=== PATIENT | female | born 1960 | race Caucasian/White ===

== ENCOUNTER → 2020-08-30 10:11 | Outpatient (BNVA) | payer OTHER, MEDICAID, SELFPAY | PROVIDERS: PCP Internal Medicine; Referring Provider Internal Medicine; Visit Provider Dietitian, Registered | DX: E11.42 Type 2 diabetes mellitus with diabetic polyneuropathy (principal); Z79.84 Long term (current) use of oral hypoglycemic drugs; Z71.3 Dietary counseling and surveillance | CPT/HCPCS: 97803 ==

== ENCOUNTER 2020-09-04 16:48 | Outpatient (REF) | payer OTHER, MEDICAID, SELFPAY | END 2020-09-04 16:49 | disposition home or self-care (01) | LOC: HO.LAB 16:48 | PROVIDERS: PCP Internal Medicine; Visit Provider Internal Medicine | DX: Z20.828 Contact with and (suspected) exposure to other viral communicable diseases (principal) | CPT/HCPCS: 87635 ==

== ENCOUNTER 2020-09-10 09:54 | Outpatient (REF) | payer OTHER, MEDICAID, SELFPAY | END 2020-09-10 09:55 | disposition home or self-care (01) | LOC: HO.LAB 09:54 | PROVIDERS: PCP Internal Medicine; Visit Provider Internal Medicine | DX: Z20.828 Contact with and (suspected) exposure to other viral communicable diseases (principal) | CPT/HCPCS: 87635 ==

== ENCOUNTER → 2020-10-10 14:46 | Outpatient (BNVA) | payer OTHER, MEDICAID, SELFPAY | PROVIDERS: PCP Internal Medicine; Referring Provider Internal Medicine; Visit Provider Internal Medicine Gastroenterology | DX: Z76.89 Persons encountering health services in other specified circumstances (principal) ==

== ENCOUNTER → 2020-10-23 08:21 | Outpatient (BNVA) | payer OTHER, MEDICAID, SELFPAY | PROVIDERS: PCP Internal Medicine; Referring Provider Internal Medicine; Visit Provider Internal Medicine Endocrinology, Diabetes & Metabolism | DX: C73 Malignant neoplasm of thyroid gland (principal); E89.0 Postprocedural hypothyroidism; E78.5 Hyperlipidemia, unspecified; E11.42 Type 2 diabetes mellitus with diabetic polyneuropathy; I10 Essential (primary) hypertension; E55.9 Vitamin D deficiency, unspecified | CPT/HCPCS: 82947 ==

== ENCOUNTER 2020-10-23 09:22 | Outpatient (REF) | payer OTHER, MEDICAID, SELFPAY ==
[2020-10-23 11:11] LABS: Alanine Aminotransferase 12 U/L (0-31); Albumin Level 4.9 g/dL (3.5-5.0); Alkaline Phosphatase 67 U/L (39-117); Anion Gap 15 (12-20); Aspartate Amino Transferase 14 U/L (5-31); Bilirubin Total 0.5 mg/dL (0.0-1.0); Blood Urea Nitrogen 27 mg/dL (9-16); Calcium 9.6 mg/dL (8.4-10.2); Carbon Dioxide 29 mmol/L (22-29); Chloride 101 mmol/L (96-108); Estimated Glomerular Filt Rate > 60; Glucose Fasting 142 mg/dL (60-99); Potassium 4.3 mmol/l (3.3-5.1); Sodium 141 mmol/L (135-145); Total Protein 7.9 g/dL (6.5-8.0)
[2020-10-23 11:37] LABS: Free T4 (Free Thyroxine) 1.59 ng/dL (0.71-1.85); Thyroid Stimulating Hormone 0.05 uIU/mL (0.32-4.0)
[2020-10-27 06:37] LABS: Thyroglobulin Antibody <1 IU/mL (<=1); Thyroglobulin Level 0.1 ng/mL
== END 2020-10-23 09:23 | disposition home or self-care (01) ==
LOC: HO.10HDL 09:22
PROVIDERS: Visit Provider Internal Medicine Endocrinology, Diabetes & Metabolism
DX: C73 Malignant neoplasm of thyroid gland (principal)
CPT/HCPCS: 36415; 80053; 84432; 84439; 84443; 86800

== ENCOUNTER 2020-11-02 13:24 | Outpatient (REF) | payer OTHER, MEDICAID, SELFPAY ==
--- NOTE | 2020-11-02 13:46 | MM_ITS ---
EXAMINATION: BONE DENSITOMETRY CLINICAL INDICATION: Age-related osteoporosis without current pathological fracture. COMPARISON: Baseline BD dated 12/11/2017. TECHNIQUE: Using a [employer] DXA System (software version: 13.1) manufactured by [employer], dual-energy x-ray absorptiometry was performed of the lumbar spine and left hip. The images are of good technical quality. Summary results are attached. FINDINGS: AP SPINE L1-L4: Current: BMD 1.163 g/cm2, Z-score 1.3, T-score -0.1, normal, 1.3% decrease from baseline (<5% change is not significant). Baseline: BMD 1.178 g/cm2. LEFT FEMUR, NECK: Current: BMD 1.115 g/cm2, Z-score 1.9, T-score 0.6, normal. Baseline: BMD 1.151 g/cm2. LEFT FEMUR, TOTAL: Current: BMD 1.148 g/cm2, Z-score 2.2, T-score 1.1, normal, 0.9% decrease from baseline (<5% change is not significant). Baseline: BMD 1.159 g/cm2. IDENTIFIED RISK FACTORS: Height loss, low calcium intake. Early menopause, secondary osteoporosis, hysterectomy, left oophorectomy. HISTORY OF FRACTURE: None listed. MEDICATIONS: Calcium supplements or multivitamin, vitamin D. MM/XR DEXA axial skeleton IMPRESSION: 1. DIAGNOSIS: Normal bone density based on the lowest T-score value of -0.1 in the lumbar spine applying World Health Organization criteria. 2. 10-YEAR FRACTURE RISK PREDICTION, FRAX: Major osteoporotic fracture (clinical spine, forearm, hip or shoulder) 3.1%. Hip fracture 0.1%. 3. Treatment Recommendations: NOF guidelines recommend consideration for treatment in postmenopausal women and men age 50 and older presenting with the following: -A hip or vertebral (clinical or morphometric) fracture. -T-score less than or equal to -2.5 at the femoral neck or spine after appropriate evaluation to exclude secondary causes. -Low bone mass at the hip or spine and a 10-year fracture probability by FRAX of greater than or equal to 3% for hip fracture or greater than or equal to 20% for major osteoporotic fracture based on the [place] adapted WHO algorithm. 4. Other Recommendations: All treatment decisions require clinical judgment and consideration of individual patient factors, including patient preferences, comorbidities, previous drug use, risk factors not captured in the FRAX model (e.g. frailty, falls, vitamin D deficiency, increased bone turnover, interval significant decline in bone density) and possible under or overestimation of fracture risk by FRAX. FUTURE SCAN RECOMMENDATION: People with diagnosed cases of osteoporosis or at high risk for fracture should have regular bone mineral density tests. For patients eligible for Medicare, routine testing is allowed once every 2 years. The testing frequency can be increased to one year for patients who have rapidly progressing disease, those who are receiving or discontinuing medical therapy to restore bone mass, or have additional risk factors.
== END 2020-11-02 13:25 | disposition home or self-care (01) ==
LOC: HO.MAMMO 13:24
PROVIDERS: PCP Internal Medicine; Visit Provider Advanced Practice Midwife
DX: Z13.820 Encounter for screening for osteoporosis (principal); Z85.850 Personal history of malignant neoplasm of thyroid
CPT/HCPCS: 77080

== ENCOUNTER 2020-11-08 12:37 | Outpatient (REF) | payer OTHER, MEDICAID, SELFPAY ==
--- NOTE | 2020-11-08 12:49 | US_ITS ---
EXAMINATION: ULTRASOUND SOFT TISSUE HEAD AND NECK CLINICAL INFORMATION: Malignant neoplasm of thyroid gland. Follow up lymph nodes. COMPARISON: Ultrasound neck 07/17/2020. TECHNIQUE: Ultrasound imaging of neck lymph nodes was performed. FINDINGS: There are several bilateral lymph nodes seen. Right Neck: 1. Level Ib lymph node measuring 1.7 x 0.4 x 1.2 cm. It has a slit-like hilum and appears abnormal. Previously it measured 1.7 x 0.5 x 1.9 cm. 2. The previously seen 0.6 x 0.4 x 0.5 cm level 1B lymph node is not visualized at this time. Left Neck: 1. Level Ib lymph node measures 2.6 x 0.6 x 1.0 cm. It is abnormal and has a slit-like hilum. Previously it measured 2.6 x 0.6 x 1.2 cm. 2. Level 2 lymph node measures 1.9 x 0.5 x 1.4 cm. It is abnormal and has an absent hilum and has cystic features. Previously it measured 2.1 x 0.4 x 1.4 cm. 3. The previously seen 0.7 x 0.6 x 1.0 cm level 2 lymph node is not visualized at this time. US/US soft tiss head and/or neck IMPRESSION: At least 1 solitary abnormal lymph node in the right neck and 2 abnormal-appearing lymph nodes in the left neck essentially unchanged in size.
== END 2020-11-08 12:38 | disposition home or self-care (01) ==
LOC: HO.US 12:37
PROVIDERS: Visit Provider Internal Medicine Endocrinology, Diabetes & Metabolism
DX: C73 Malignant neoplasm of thyroid gland (principal)
CPT/HCPCS: 76536

== ENCOUNTER 2020-12-07 10:44 | Outpatient (REF) | payer OTHER, MEDICAID, SELFPAY ==
--- NOTE | 2020-12-07 11:07 | XR_ITS ---
EXAMINATION: XR FINGER, LEFT CLINICAL INFORMATION: Cellulitis of the thumb COMPARISON: None TECHNIQUE: Three views of the left thumb. FINDINGS: The bones and soft tissues are normal. No fracture. Alignment is anatomic. Joint spaces are maintained. XR/XR finger LT min 2V IMPRESSION: Normal left thumb
[2020-12-07 12:51] LABS: Free T4 (Free Thyroxine) 1.38 ng/dL (0.71-1.85); Thyroid Stimulating Hormone 0.18 uIU/mL (0.32-4.0)
[2020-12-10 05:27] LABS: Thyroglobulin Antibody <1 IU/mL (<=1); Thyroglobulin Level <0.1 ng/mL
== END 2020-12-07 10:45 | disposition home or self-care (01) ==
LOC: HO.LAB 10:44
PROVIDERS: Absent Provider Internal Medicine Endocrinology, Diabetes & Metabolism; PCP Internal Medicine; Referring Provider Internal Medicine; Visit Provider Emergency Medicine
DX: C73 Malignant neoplasm of thyroid gland (principal); L03.012 Cellulitis of left finger
CPT/HCPCS: 36415; 73140; 84432; 84439; 84443; 86800

== ENCOUNTER 2020-12-14 08:49 | Outpatient (REF) | payer OTHER, MEDICAID, SELFPAY ==
--- NOTE | 2020-12-14 09:36 | XR_ITS ---
EXAMINATION: XR HAND, LEFT CLINICAL INFORMATION: Pain COMPARISON: None TECHNIQUE: PA, lateral, and oblique views of the left hand. FINDINGS: The bones and soft tissues are normal. No fracture. Alignment is anatomic. Joint spaces are maintained. No erosions or soft tissue calcifications. XR/XR hand LT min 3V IMPRESSION: Normal left hand.
== END 2020-12-14 08:50 | disposition home or self-care (01) ==
LOC: HO.XRAY 08:49
PROVIDERS: PCP Internal Medicine; Visit Provider Physician Assistant
DX: L03.012 Cellulitis of left finger (principal)
CPT/HCPCS: 73130

== ENCOUNTER 2020-12-19 13:33 | Outpatient (REF) | payer OTHER, MEDICAID, SELFPAY ==
--- NOTE | 2020-12-19 13:40 | MM_ITS ---
EXAMINATION: MM DIAGNOSTIC DIGITAL BREAST TOMOSYNTHESIS, bilateral. TARGETED LEFT BREAST ULTRASOUND CLINICAL INFORMATION: Left breast pain. The lifetime risk of breast cancer based on the Tyrer-Cuzick Model is 2.6%. COMPARISON: Mammography: 08/17/2019 and studies dating back to 03/27/2016. TECHNIQUE: Digital breast tomosynthesis is performed in both the craniocaudal and mediolateral oblique views along with computer-aided detection (CAD). Synthesized 2D images are generated from the tomosynthesis. Targeted left breast ultrasound. FINDINGS: There are scattered areas of fibroglandular density (ACR BI-RADS breast composition Category b). There are no significant masses, abnormal calcifications, or other abnormalities. Targeted left breast ultrasound did not demonstrate any abnormal cystic or solid mass. No region of abnormal distal sound shadowing. No edematous change within the parenchyma. Results are provided to the patient at time of visit by the technologist. MM/MM tomosynthesis diagnostic BI IMPRESSION: No new abnormal mammographic or ultrasound finding appreciated. There are no significant changes from prior study. ASSESSMENT: BI-RADS 1: Negative. RECOMMENDATION: Routine annual mammography screening due in 12 months. This patient's information was entered into a reminder system with a target due date for their next mammogram.
--- NOTE | 2020-12-19 13:42 | US_ITS ---
EXAMINATION: US DIAGNOSTIC ULTRASOUND BREAST, LEFT CLINICAL INFORMATION: Left breast pain. COMPARISON: Mammography of same day and studies dating back to 03/27/2016. TECHNIQUE: Ultrasound of the breast is performed with real-time murrell-scale imaging and color Doppler. FINDINGS: Targeted left breast ultrasound did not demonstrate any abnormal cystic or solid mass. No region of abnormal distal sound shadowing. No edematous change within the parenchyma. Results are provided to the patient at time of visit by the technologist. US/US breast LT limited IMPRESSION: No new abnormal mammographic or ultrasound finding appreciated. There are no significant changes from prior study. ASSESSMENT: BI-RADS 1: Negative. RECOMMENDATION: Routine annual mammography screening due in 12 months.
== END 2020-12-19 13:34 | disposition home or self-care (01) ==
LOC: HO.MAMMO 13:33
PROVIDERS: PCP Internal Medicine; Visit Provider Emergency Medicine
DX: N64.4 Mastodynia (principal)
CPT/HCPCS: 76642; 77062; 77066

== ENCOUNTER → 2020-12-21 09:40 | Outpatient (BNVA) | payer OTHER, MEDICAID, SELFPAY | PROVIDERS: PCP Internal Medicine; Visit Provider Physician Assistant ==

== ENCOUNTER 2021-01-14 10:31 | Emergency (ER) | payer OTHER, MEDICAID, SELFPAY ==
--- NOTE | ~2021-01-14 | XR_ITS ---
EXAMINATION: XR CHEST CLINICAL INFORMATION: Chest pain. COMPARISON: None TECHNIQUE: 2 views of the chest were obtained. FINDINGS: No significant abnormality is noted involving the heart, lungs, mediastinum, bony thorax or soft tissues. XR/XR chest 2V IMPRESSION: Unremarkable chest exam.
--- NOTE | ~2021-01-14 | CT_ITS ---
EXAMINATION: CT ABDOMEN AND PELVIS WITHOUT CONTRAST CLINICAL INFORMATION: Right flank pain. Dysuria. Evaluate for pyelonephritis. COMPARISON: Previous CT of the abdomen and pelvis June 2020 TECHNIQUE: Multidetector volumetric imaging was performed from the superior aspect of the liver through the pubic symphysis. Sagittal and coronal reformatted images were obtained on the technologist's workstation. This CT examination was performed using dose optimization techniques as appropriate, variously including the following: *Automated exposure control *Adjustment of mA and/or kV according to patient size (this includes techniques or standardized protocols for targeted exams where dose is matched to indication/reason for exam; i.e. extremities or head) *Use of iterative reconstruction technique DLP: 455 mGy-cm FINDINGS: LUNG BASES: The visualized lung bases are unremarkable. LIVER, GALLBLADDER, AND BILIARY TREE: The liver is normal in size, shape, and attenuation. No focal hepatic lesion or biliary ductal dilatation is present. The gallbladder is unremarkable with no evidence of radiopaque gallstones, gallbladder wall thickening, or obvious pericholecystic inflammatory changes. PANCREAS: Unremarkable. SPLEEN: Unremarkable. ADRENAL GLANDS: Unremarkable. KIDNEYS AND URETERS: There is a duplicated right renal collecting system. The kidneys are otherwise normal. No stone or hydronephrosis is seen. No ureteral dilatation or ureteral stone is seen. Pyelonephritis is difficult to evaluate without IV contrast. No cortical thickening, focal lesion or perinephric stranding or fluid is seen. BLADDER: Unremarkable. GASTROINTESTINAL TRACT: There is mild diverticulosis of the colon. The small and large bowel are otherwise unremarkable. The appendix is unremarkable. ABDOMINAL WALL: As evidence of previous low ventral hernia repair with mesh. LYMPH NODES: There is shotty small bowel mesentery lymphadenopathy in the right lower quadrant. No enlarged lymph nodes are seen. There is no ascites. VASCULAR: Unremarkable. PELVIC VISCERA: The whole the uterus appears to have been removed. No pelvic mass is seen. OSSEOUS STRUCTURES: Unremarkable. CT/CT abdomen pelvis wo con IMPRESSION: Duplicated right renal collecting system. Mild diverticulosis of the colon.
--- NOTE | 2021-01-14 11:03 | ECG_ITS ---
Test Reason : CP Blood Pressure : / mmHG Vent. Rate : 076 BPM Atrial Rate : 076 BPM P-R Int : 166 ms QRS Dur : 074 ms QT Int : 388 ms P-R-T Axes : 051 005 061 degrees QTc Int : 436 ms Normal sinus rhythm Possible Left atrial enlargement Possible Inferior infarct , age undetermined - could be normal variant Borderline ECG When compared with ECG of 15-JUL-2020 15:14, No significant change was found Referred By: Generic ED Physician Electronically Signed By:PABLO BURGOS
[2021-01-14 11:24] VITALS: BP 136/78; PULSE 97; RESP 18; TEMP 37.2; O2SAT 96; BMI 23.9
--- NOTE | 2021-01-14 11:37 | ED_ITS ---
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 The patient does she was seen at Urgent Care on January 11 was prescribed Carafate, Pepcid and Colace. The patient tells me she has been taking these with continued pain. She is currently also on clindamycin for paronychia. She reports nausea with no vomiting. No diarrhea or constipation. She is complaining of some dysuria and frequency with some chills. No fever. Pain radiates to right back and right upper abdomen. MD complaint: chest heaviness Related Data Home Medications Medication Instructions Recorded Confirmed metformin 500 mg tablet,extended 500 mg PO BID 08/30/20 10/10/20 release 24 hr omega-3 fatty acids-fish oil 340 1 cap PO BEDTIME 08/30/20 10/10/20 mg-1,000 mg capsule hydrochlorothiazide 12.5 mg capsule 12.5 mg PO DAILY 10/10/20 10/10/20 losartan 50 mg tablet 50 mg PO BID 10/10/20 10/10/20 metoprolol succinate 50 mg 50 mg PO DAILY 10/10/20 10/10/20 tablet,extended release 24 hr polyethylene glycol 3350 17 17 g PO DAILY PRN 10/10/20 10/10/20 gram/dose oral powder topiramate 25 mg sprinkle capsule 25 mg PO DAILY 10/10/20 10/10/20 Previous Rx's Medication Instructions Recorded cholecalciferol (vitamin D3) 50 50 mcg PO DAILY 30 Days #30 cap 08/23/20 mcg (2,000 unit) capsule atorvastatin 40 mg tablet 40 mg PO BEDTIME #90 tab 10/15/20 levothyroxine 112 mcg tablet 112 mcg PO DAILY 90 Days #90 tab 12/07/20 thyrotropin maria c 0.9 mg IM DAILY #2 ml 12/12/20 clindamycin HCl 300 mg capsule 300 mg PO QID 10 Days #40 cap 12/24/20 omeprazole 40 mg PO DAILY #14 cap 01/14/21 Allergies Allergy/AdvReac Type Severity Reaction Status Date / Time Penicillins [PENICILLINS] Allergy Unknown HIVES Verified 12/21/20 09:43 Review of Systems Review of Systems: Yes all other systems are reviewed and are negative Constitutional: Constitutional: Reports no additional constitutional complaints, Denies body ache(s), Reports chills, Denies fever(s), Denies headache(s) and Denies weakness Eyes: Eyes: Reports no additional eye complaints and Denies change in vision ENT: Reports system reviewed and no additional complaints, except as documented, Denies dizziness, Denies headache(s), Denies nasal congestion, Denies nasal discharge and Denies neck pain Cardiovascular: Cardiovascular: Reports no additional cardiovascular complaints, Denies chest pain, Denies leg edema and Denies dyspnea Respiratory: Respiratory: Reports no additional respiratory complaints, Denies cough and Denies dyspnea Gastrointestinal: Gastrointestinal: Reports no additional gastrointestinal complaints, Reports abdominal pain, Denies diarrhea, Reports nausea and Denies vomiting Genitourinary: Genitourinary: Reports no additional female genitourinary complaints, Reports dysuria and Denies urinary incontinence Comments: urinary frequency Musculoskeletal: Musculoskeletal: Reports no additional musculoskeletal complaints, Denies back pain, Denies arthralgias, Denies joint swelling, Denies neck pain, Denies numbness and Denies tingling Integumentary/Breasts: Skin/Breast: Reports system reviewed and no additional complaints, except as docu and Denies rash Neurologic: Denies Abnormal speech present, Denies dizziness, Denies headache(s), Denies numbness, Denies tingling and Denies weakness PMF Past Medical History Attestation statement: The following information was validated with the patient. Source: old records reviewed and nursing notes reviewed Medical History Dyslipidemia Gastritis Hypertension Post-surgical hypothyroidism Primary thyroid cancer Tubular adenoma of colon Vitamin D deficiency Surgical History History of esophagogastroduodenoscopy (EGD) Hx of section Hx of colonoscopy Hx of hernia repair Hx of hysterectomy Hx of thyroidectomy Family History Family History Father Stroke Heart attack Mother Diabetes mellitus Family/Other Family history of cancer Social History Social History Alcohol intake: current Alcohol intake frequency: does not drink Smoking Status: Never smoker Smoked in Last 30 Days: No Use of substances other than those prescribed or required for medical reasons: No Advance Directives: No Advance Directives Information Provided: No Physical Exam Vital Signs: Vital Signs: Last Vital Signs Temp 99.0 F 01/14/21 11:24 Pulse 78 01/14/21 13:42 Resp 10 L 01/14/21 13:42 BP 109/62 01/14/21 13:42 Pulse Ox 98 01/14/21 13:42 Body Mass Index 23.9 Const: General: cooperative, healthy appearing, comfortable and no acute distress Orientation/consciousness: patient oriented x3 Limitations: no limitations HENMT: Head: Yes normal to inspection Ears: hearing grossly normal bilaterally General nose exam: Normal external nose present Face and sinus: Yes normal facial exam Mouth: Normal oral and palatal mucosa present Throat: Yes posterior oropharynx normal Eyes: General: appearance normal, both eyes and all related structures Pupils: Equal, round and reactive pupils present Neck: Neck: Yes normal visual inspection Chest: Chest palpation & inspection: normal inspection of the chest Resp: Effort & Inspection: normal respiratory effort Auscultation: clear to auscultation bilaterally Cardio: Rate: regular rate Rhythm: regular rhythm Peripheral pulses: Peripheral pulses 2+ throughout GI: Inspection: Yes normal to inspection Palpation (GI): Soft to palpation and Tenderness to palpation present (GI) (Mild epigastric and right upper quadrant ) Auscultation: normal bowel sounds Back/Spine/Pelvis: Thoracic/Lumbar Spine: thoracic and lumbar spine normal to inspection Skin: General skin exam: no rashes or lesions noted Neuro: General: patient oriented x3, no focal motor deficits and normal sensation to monofilament Cranial nerves: Yes Equal, round and reactive pupils present Cognition (Neuro): normal cognition Speech: No Abnormal speech present Gait exam (Neuro): Normal gait present Motor exam (neuro): 5/5 motor strength present throughout Extrem: General: Yes normal to inspection Course Course Course Narrative: 60-year-old female here with complaints of epigastric pain which radiates to the right upper quadrant and right flank x 6 days with associated nausea and chills. Continued symptoms despite taking Pepcid and Carafate. Is on clindamycin for paronychia. Will need labs, UA, EKG, Ct A/P and analgesia. 1330-Labs unremarkable. UA negative. EKG shows no ischemic changes. CT unremarkable. Likely GERD vs gastritis vs PUD from recent antibiotic use. To give GI cocktail, PPI and re-assess. 1440-patient also in her abdominal pain is resolved after receiving a PPI and GI cocktail. She does have a mild headache and feels lightheaded follow explain her this is likely secondary to the narcotics she received. Stable vital signs. Well-appearing. She is taking Carafate 4 times daily but was telling me that she was taking it with meals. We discussed that she should be taking at least 30 minutes prior to meals. She was taking Pepcid we will changes to Prilosec. I did recommend that she call her company accountant for follow-up appointment for possible endoscopy. Reviewed worrisome signs and symptoms and when to return to the emergency department. Comfortable discharge home. MDM - Chest Pain MDM Narrative Medical decision making narrative: ACS, cholecystitis, gallstones, renal colic, pyelonephritis, UTI, gastritis, PUD, GERD Less likely ACS with atypical CP, symptoms >6 days, negative troponin EKG with no ischemic changes. Medical Records Data Attestation: I reviewed the patient's medical records. Lab Data Attestation: I reviewed the patient's lab results. Result diagrams: 01/14/21 12:18 01/14/21 12:18 Labs: Lab Results 01/14/21 01/14/21 01/14/21 Range/Units 12:18 12:18 12:18 WBC 4.0 L (4.8-10.8) X10*3/uL RBC 4.69 (4.20-5.50) X10*6/uL Hgb 12.7 (12.0-16.0) g/dl Hct 38.6 (37-47) % MCV 82.3 (80-98) fL MCH 27.1 (27.0-33.0) pg MCHC 32.9 (31.0-35.0) g/dl RDW 12.5 (11.0-16.0) % Plt Count 204 (160-400) X10*3/uL MPV 10.5 (9.4-12.3) fL Immature Gran % (Auto) 0.3 (0.0-0.4) % Neut % (Auto) 63.8 (45-73) % Lymph % (Auto) 24.7 (20-40) % [place] % (Auto) 10.4 (2-11) % Eos % (Auto) 0.3 (0-4) % Baso % (Auto) 0.5 (0-2) % Lymph # (Auto) 1.0 L (1.2-4.9) X10*3/uL [place] # (Auto) 0.4 (0.1-1.2) X10*3/uL Eos # (Auto) 0.0 (0.0-0.4) X10*3/uL Baso # (Auto) 0.0 (0.0-0.2) X10*3/uL Abs Immat Gran (auto) 0.01 (0.00-0.03) X10*3/uL Absolute Neuts (auto) 2.5 (2.0-8.3) X10*3/uL Absolute Nucleated RBC 0.000 (0.0-0.012) X10*3/uL Nucleated RBC % (auto) 0.0 (0.0-0.2) /100WBC PT 13.2 H (10.8-13.0) SEC INR 1.1 (0.9-1.1) Sodium 142 (135-145) mmol/L Potassium 4.1 (3.3-5.1) mmol/L Chloride 101 (96-108) mmol/L Carbon Dioxide 31 H (22-29) mmol/L Anion Gap 14 (12-20) BUN 16 (9-16) mg/dL Creatinine 0.69 (0.5-1.4) mg/dL Estim Creat Clear Calc 76.0 Estimated GFR > 60 Random Glucose 93 (60-115) mg/dL Calcium 9.1 (8.4-10.2) mg/dL Magnesium 2.0 (1.6-2.6) mg/dL Total Bilirubin 0.6 (0.0-1.0) mg/dL Direct Bilirubin 0.2 (0.0-0.5) mg/dL AST 28 D (5-31) U/L ALT 38 H (0-31) U/L Alkaline Phosphatase 78 (39-117) U/L Troponin I High Sens (<3.5-17.0) ng/L Total Protein 7.9 (6.5-8.0) g/dL Albumin 4.8 (3.5-5.0) g/dL Urine Color Urine Appearance Urine pH (5.0-8.0) Ur Specific [place] (1.005-1.025) Urine Protein (NEG-TRACE) MG/DL Urine Glucose (UA) (NEG) MG/DL Urine Ketones (NEG) MG/DL Urine Blood (NEG) Urine Nitrite (NEG) Ur Leukocyte Esterase (NEG) Urine RBC (0) /HPF Urine WBC (0-4) /HPF Ur Squamous Epith Cells /LPF Urine Bacteria /LPF 01/14/21 01/14/21 Range/Units 12:18 12:18 WBC (4.8-10.8) X10*3/uL RBC (4.20-5.50) X10*6/uL Hgb (12.0-16.0) g/dl Hct (37-47) % MCV (80-98) fL MCH (27.0-33.0) pg MCHC (31.0-35.0) g/dl RDW (11.0-16.0) % Plt Count (160-400) X10*3/uL MPV (9.4-12.3) fL Immature Gran % (Auto) (0.0-0.4) % Neut % (Auto) (45-73) % Lymph % (Auto) (20-40) % [place] % (Auto) (2-11) % Eos % (Auto) (0-4) % Baso % (Auto) (0-2) % Lymph # (Auto) (1.2-4.9) X10*3/uL [place] # (Auto) (0.1-1.2) X10*3/uL Eos # (Auto) (0.0-0.4) X10*3/uL Baso # (Auto) (0.0-0.2) X10*3/uL Abs Immat Gran (auto) (0.00-0.03) X10*3/uL Absolute Neuts (auto) (2.0-8.3) X10*3/uL Absolute Nucleated RBC (0.0-0.012) X10*3/uL Nucleated RBC % (auto) (0.0-0.2) /100WBC PT (10.8-13.0) SEC INR (0.9-1.1) Sodium (135-145) mmol/L Potassium (3.3-5.1) mmol/L Chloride (96-108) mmol/L Carbon Dioxide (22-29) mmol/L Anion Gap (12-20) BUN (9-16) mg/dL Creatinine (0.5-1.4) mg/dL Estim Creat Clear Calc Estimated GFR Random Glucose (60-115) mg/dL Calcium (8.4-10.2) mg/dL Magnesium (1.6-2.6) mg/dL Total Bilirubin (0.0-1.0) mg/dL Direct Bilirubin (0.0-0.5) mg/dL AST (5-31) U/L ALT (0-31) U/L Alkaline Phosphatase (39-117) U/L Troponin I High Sens 3.9 (<3.5-17.0) ng/L Total Protein (6.5-8.0) g/dL Albumin (3.5-5.0) g/dL Urine Color YELLOW Urine Appearance CLEAR Urine pH 7.5 (5.0-8.0) Ur Specific [place] 1.010 (1.005-1.025) Urine Protein NEG (NEG-TRACE) MG/DL Urine Glucose (UA) NEG (NEG) MG/DL Urine Ketones NEG (NEG) MG/DL Urine Blood TRACE (NEG) Urine Nitrite NEG (NEG) Ur Leukocyte Esterase NEG (NEG) Urine RBC 0-2 (0) /HPF Urine WBC 0 (0-4) /HPF Ur Squamous Epith Cells NONE /LPF Urine Bacteria NONE /LPF Imaging Data Chest x-ray: Attestation: I personally reviewed and interpreted this imaging study as follows: Radiologist's impression: EXAMINATION: XR CHEST CLINICAL INFORMATION: Chest pain. COMPARISON: None TECHNIQUE: 2 views of the chest were obtained. FINDINGS: No significant abnormality is noted involving the heart, lungs, mediastinum, bony thorax or soft tissues. XR/XR chest 2V IMPRESSION: Unremarkable chest exam. CT scan - abdomen: Attestation: I personally reviewed and interpreted this imaging study as follows: Radiologist's impression: EXAMINATION: CT ABDOMEN AND PELVIS WITHOUT CONTRAST CLINICAL INFORMATION: Right flank pain. Dysuria. Evaluate for pyelonephritis. COMPARISON: Previous CT of the abdomen and pelvis June 2020 TECHNIQUE: Multidetector volumetric imaging was performed from the superior aspect of the liver through the pubic symphysis. Sagittal and coronal reformatted images were obtained on the technologist's workstation. This CT examination was performed using dose optimization techniques as appropriate, variously including the following: *Automated exposure control *Adjustment of mA and/or kV according to patient size (this includes techniques or standardized protocols for targeted exams where dose is matched to indication/reason for exam; i.e. extremities or head) *Use of iterative reconstruction technique DLP: 455 mGy-cm FINDINGS: LUNG BASES: The visualized lung bases are unremarkable. LIVER, GALLBLADDER, AND BILIARY TREE: The liver is normal in size, shape, and attenuation. No focal hepatic lesion or biliary ductal dilatation is present. The gallbladder is unremarkable with no evidence of radiopaque gallstones, gallbladder wall thickening, or obvious pericholecystic inflammatory changes. PANCREAS: Unremarkable. SPLEEN: Unremarkable. ADRENAL GLANDS: Unremarkable. KIDNEYS AND URETERS: There is a duplicated right renal collecting system. The kidneys are otherwise normal. No stone or hydronephrosis is seen. No ureteral dilatation or ureteral stone is seen. Pyelonephritis is difficult to evaluate without IV contrast. No cortical thickening, focal lesion or perinephric stranding or fluid is seen. BLADDER: Unremarkable. GASTROINTESTINAL TRACT: There is mild diverticulosis of the colon. The small and large bowel are otherwise unremarkable. The appendix is unremarkable. ABDOMINAL WALL: As evidence of previous low ventral hernia repair with mesh. LYMPH NODES: There is shotty small bowel mesentery lymphadenopathy in the right lower quadrant. No enlarged lymph nodes are seen. There is no ascites. VASCULAR: Unremarkable. PELVIC VISCERA: The whole the uterus appears to have been removed. No pelvic mass is seen. OSSEOUS STRUCTURES: Unremarkable. CT/CT abdomen pelvis wo con IMPRESSION: Duplicated right renal collecting system. Mild diverticulosis of the colon. ECG Data ECG #1: Attestation: I personally reviewed and interpreted this ECG as follows: Interpretation: NSR with rate 76, normal pr, normal qrs, normal qt Discharge Plan Discharge Clinical Impression: Gastritis Patient Disposition: Home, Self-Care Instructions: Gastritis (ED) Additional Instructions: Stop pepcid. Start omeprazole Take carafate four times daily before meals. You must take it 30 minutes before eating [place] diet Call Dr Webb for a follow-up appointment Prescriptions: New omeprazole 40 mg capsule,delayed release(DR/EC) 40 mg PO DAILY Qty: 14 RF: 0 No Action cholecalciferol (vitamin D3) 50 mcg (2,000 unit) capsule 50 mcg PO DAILY 30 Days Qty: 30 RF: 5 atorvastatin 40 mg tablet 40 mg PO BEDTIME Qty: 90 RF: 1 levothyroxine 112 mcg tablet 112 mcg PO DAILY 90 Days Qty: 90 RF: 3 Thyrogen 1.1 mg (0.9 mg/ mL final conc.) recon soln 0.9 mg IM DAILY Qty: 2 RF: 0 clindamycin HCl 300 mg capsule 300 mg PO QID 10 Days Qty: 40 RF: 0 metformin 500 mg tablet extended release 24 hr 500 mg PO BID RF: 0 Fish Oil 340-1,000 mg capsule 1 cap PO BEDTIME RF: 0 hydrochlorothiazide 12.5 mg capsule 12.5 mg PO DAILY RF: 0 topiramate 25 mg capsule, sprinkle 25 mg PO DAILY RF: 0 losartan 50 mg tablet 50 mg PO BID RF: 0 metoprolol succinate 50 mg tablet extended release 24 hr 50 mg PO DAILY RF: 0 polyethylene glycol 3350 [Miralax] 17 gram/dose powder 17 g PO DAILY PRN (Reason: laxative effect) RF: 0 Referrals: Diana Webb MD [Physician] - 2 days Interventions: ED Discharge Assessment Last Done: 01/14/21 14:58 Discharge Date/Time: 01/14/21 14:59 Print Language: Serbian
[2021-01-14 12:23] LABS: MANUAL DIFF FLAG NO
[2021-01-14] MEDS: Morphine Sulfate 4 MG/ML CARTRIDGE IVPUSH (12:23)
[2021-01-14] MEDS: ondansetron HCL 4 MG/2 ML VIAL IVPUSH (12:23)
[2021-01-14 12:26] LABS: Basophils Percent Auto 0.5 % (0-2); Eosinophils Percent Auto 0.3 % (0-4); Hematocrit 38.6 % (37-47); Hemoglobin 12.7 g/dl (12.0-16.0); Imm Gran Abs Auto 0.01 X10*3/uL (0.00-0.03); Imm Gran Pct Auto 0.3 % (0.0-0.4); Lymphocytes Percent Auto 24.7 % (20-40); Mean Corpuscular HGB Conc 32.9 g/dl (31.0-35.0); Mean Corpuscular Hemoglobin 27.1 pg (27.0-33.0); Mean Corpuscular Volume 82.3 fL (80-98); Mean Platelet Volume 10.5 fL (9.4-12.3); Monocytes Absolute Auto 0.4 X10*3/uL (0.1-1.2); Monocytes Percent Auto 10.4 % (2-11); Neutrophils Absolute Auto 2.5 X10*3/uL (2.0-8.3); Neutrophils Percent Auto 63.8 % (45-73); Platelet Count 204 X10*3/uL (160-400); Red Blood Count 4.69 X10*6/uL (4.20-5.50); Red Cell Distribution Width 12.5 % (11.0-16.0)
[2021-01-14 12:32] LABS: Glucose Urine UA NEG (NEG); Leukocyte Esterase Urine NEG (NEG); Nitrite Urine NEG (NEG); PH 7.5 (5.0-8.0); Urine Blood TRACE (NEG); Urine Ketones NEG (NEG); Urine Protein NEG (NEG-TRACE)
[2021-01-14 12:34] LABS: Appearance Urine CLEAR; Color Urine YELLOW
[2021-01-14 12:36] LABS: INTERNATIONAL NORM RATIO 1.1 (0.9-1.1); Prothrombin Time 13.2 SEC (10.8-13.0)
[2021-01-14 12:57] LABS: Alanine Aminotransferase 38 U/L (0-31); Albumin Level 4.8 g/dL (3.5-5.0); Alkaline Phosphatase 78 U/L (39-117); Anion Gap 14 (12-20); Aspartate Amino Transferase 28 U/L (5-31); Bilirubin Direct 0.2 mg/dL (0.0-0.5); Bilirubin Total 0.6 mg/dL (0.0-1.0); Blood Urea Nitrogen 16 mg/dL (9-16); Calcium 9.1 mg/dL (8.4-10.2); Carbon Dioxide 31 mmol/L (22-29); Chloride 101 mmol/L (96-108); Estimated Glomerular Filt Rate > 60; Glucose Random 93 mg/dL (60-115); Potassium 4.1 mmol/L (3.3-5.1); Sodium 142 mmol/L (135-145); Total Protein 7.9 g/dL (6.5-8.0)
[2021-01-14 13:00] LABS: Troponin-I High Sensitivity 3.9 ng/L (<3.5-17.0)
[2021-01-14 13:03] LABS: RBC Urine 0-2 /HPF (0); WBC Urine 0 /HPF (0-4)
[2021-01-14] MEDS: Magnesium Hydrox/Alum Hydrox 30 ML ORAL.SUSP PO (13:39)
[2021-01-14] MEDS: Famotidine/PF 20 MG/2 ML VIAL IVPUSH (13:39)
[2021-01-14] MEDS: Lidocaine HCl Viscous 2 % 15 ML SOLUTION MUCOUS MEM (13:39)
[2021-01-14 13:42] VITALS: BP 109/62; PULSE 78; RESP 10; O2SAT 98
== END 2021-01-14 14:59 | disposition home or self-care (01) ==
PROVIDERS: Nurse Practitioner Family; Emergency Provider Emergency Medicine; PCP Internal Medicine
DX: K29.70 Gastritis, unspecified, without bleeding (principal); R07.9 Chest pain, unspecified; I10 Essential (primary) hypertension; E11.9 Type 2 diabetes mellitus without complications; Z79.84 Long term (current) use of oral hypoglycemic drugs; Z79.899 Other long term (current) drug therapy
CPT/HCPCS: 36415; 71046; 74176; 80048; 80076; 81001; 83735; 84484; 85025; 85610; 93005; 96374; 96375; 99284; J2270; J2405

== ENCOUNTER → 2021-01-21 14:36 | Outpatient (BNVA) | payer OTHER, MEDICAID, SELFPAY | PROVIDERS: PCP Internal Medicine; Visit Provider Orthopaedic Surgery ==

== ENCOUNTER → 2021-01-23 07:52 | Outpatient (BNVA) | payer OTHER, MEDICAID, SELFPAY | PROVIDERS: PCP Internal Medicine; Visit Provider Internal Medicine Gastroenterology ==

== ENCOUNTER 2021-01-24 13:47 | Day surgery (SDC) | payer OTHER, MEDICAID, SELFPAY ==
--- NOTE | 2021-01-24 11:58 | P.OP_ITS ---
Operative Note Operative Note Date of Service: 01/24/21 Narrative: Preop diagnosis: 1. Left thumb chronic paronychia Postop diagnosis: 1. Same Procedure: 1. Left thumb chronic paronychia I and D Surgeon: Georgiana Pang MD Anesthesia: Digital block using 1% lidocaine with epinephrine Findings: [ ] EBL: Less than 5 mL Specimens: None Complications: None Disposition: Brought to recovery room in stable condition Plan: Follow-up for 7-10 days for wound check and suture removal and to check cultures Antibiotics times 10 days Indications: The patient is 60 years old, with A left thumb chronic paronychia that has been unresponsive to nonoperative management. The risks and benefits of operative treatment including but not limited to risk of damage to blood vessels, nerves, tendons, infection, persistent pain, persistent symptoms, or possible need for additional surgery were discussed with the patient and the patient wishes to proceed with surgery. Procedure: Once consent was obtained a digital block was performed using a combination of 1% lidocaine with epinephrine. The patient was then brought back to the operating suite and placed on the operative table in supine position. A tourniquet was applied to the proximal aspect of the left upper extremity and the limb was prepped and draped in a standard surgical fashion. Once assured that we had a good block, Once satisfied with our I&D the wound was copiously irrigated with normal sa line and hemostasis was obtained with a brief period of local pressure. The skin edges were reapproximated with some 5.0 nylon suture material and a sterile dressing was applied. The patient appears to have tolerated the procedure well and with no complications. All digits were well vascularized at the conclusion of the case.
[2021-01-24 14:04] VITALS: BP 115/75; PULSE 84; RESP 16; TEMP 36.8; O2SAT 97; BMI 23.9
[2021-01-24 15:28] VITALS: BP 141/69; PULSE 78; O2SAT 100
[2021-01-24] MEDS: Acetaminophen 325 MG TABLET 975 MG PO (15:32)
--- NOTE | 2021-01-24 16:40 | MHC.SHP ---
Pre-Procedural Eval Section B Chief Complaint: cellulitis Allergies: Allergies Allergy/AdvReac Type Severity Reaction Status Date / Time Penicillins [PENICILLINS] Allergy Unknown HIVES Verified 01/24/21 14:01 Plan I have reviewed the history and physical and performed a pertinent physical examination on my patient. No changes have occurred unless specified.
--- NOTE | 2021-01-24 16:40 | W.PM.OPN ---
Operative Note Operative Note Date of Service: 01/24/21 Narrative: Operative Note Preop diagnosis: 1. Left chronic paronychia Postop diagnosis: 1. Same Procedure: 1. Left paronychia I and D Surgeon: Georgiana Pang MD Anesthesia: Digital block using 1% lidocaine with epinephrine Findings: Minimal on I&D. EBL: Less than 5 mL Tourniquet time: None Specimens: Sent for culture Gram stain Complications: None Disposition: Brought to recovery room in stable condition Plan: Follow-up for 7-10 days for wound check and suture removal Check cultures Patient allergic to penicillin, and had gastritis with clindamycin. After conferring with our inpatient pharmacist I sent a prescription for Bactrim double strength times 14 days. Per our inpatient pharmacist Conflict with losartan is minimal. Indications: The patient is 60 years old, with a left thumb chronic paronychial infection that has been unresponsive to nonoperative management. The risks and benefits of operative treatment including but not limited to risk of damage to blood vessels, nerves, tendons, infection, persistent pain, persistent symptoms, recurrence or possible need for additional surgery were discussed with the patient and the patient wishes to proceed with surgery. Procedure: Once consent was obtained a digital block was performed in the preop area using a combination of 1% lidocaine with epinephrine. The patient was then brought back to the operating suite and placed on the operative table in supine position. A tourniquet was applied to the proximal aspect of the left upper extremity and the limb was prepped and draped in a standard surgical fashion. Tourniquet was not inflated Once assured that we had a good block, I made a 5 mm incision over the area of maximal swelling the radial paronychia of the left thumb. The incision was made through the skin to the subcutaneous tissues using a #15 blade. Small of serosanguineous drainage was produced and then swabbed and sent culture used some tenotomy scissors sure the area was, and to also assure there was no under radial edge of the nail plate. Was copiously irrigated with normal saline and hemostasis was obtained with a brief period of local pressure. A sterile dressing was applied. The patient appears to have tolerated the procedure well and with no complications. All digits were well vascularized at the conclusion of the case.
[2021-01-24 17:11] VITALS: BP 139/72; PULSE 84; RESP 20; TEMP 36.2; O2SAT 98
--- NOTE | 2021-01-24 17:25 | PC.NURSE ---
DR. SENA AND PASTING MACHINE OFFBEARER AT BEDSIDE TO REVIEW POST OP PLAN.
== END 2021-01-24 17:33 | disposition home or self-care (01) ==
PROVIDERS: PCP Internal Medicine; Visit Provider Orthopaedic Surgery
PROC: (CPT 10060; principal; 2021-01-24 15:40)
DX: L03.012 Cellulitis of left finger (principal); A48.8 Other specified bacterial diseases; I10 Essential (primary) hypertension; E11.9 Type 2 diabetes mellitus without complications; E89.0 Postprocedural hypothyroidism; E55.9 Vitamin D deficiency, unspecified; Z79.84 Long term (current) use of oral hypoglycemic drugs; Z79.899 Other long term (current) drug therapy; Z85.850 Personal history of malignant neoplasm of thyroid; Z88.0 Allergy status to penicillin
CPT/HCPCS: 10060; 87071; 87205

== ENCOUNTER → 2021-01-28 08:57 | Outpatient (BNVA) | payer OTHER, MEDICAID, SELFPAY | PROVIDERS: PCP Internal Medicine; Visit Provider Internal Medicine Endocrinology, Diabetes & Metabolism | DX: C73 Malignant neoplasm of thyroid gland (principal) | CPT/HCPCS: 96372 ==

== ENCOUNTER → 2021-01-29 09:01 | Outpatient (BNVA) | payer OTHER, MEDICAID, SELFPAY | PROVIDERS: PCP Internal Medicine; Visit Provider Internal Medicine Endocrinology, Diabetes & Metabolism | DX: E11.42 Type 2 diabetes mellitus with diabetic polyneuropathy (principal); C73 Malignant neoplasm of thyroid gland; E89.0 Postprocedural hypothyroidism; E78.5 Hyperlipidemia, unspecified; I10 Essential (primary) hypertension; E55.9 Vitamin D deficiency, unspecified | CPT/HCPCS: 82947; 96372 ==

== ENCOUNTER 2021-01-30 06:57 | Outpatient (REF) | payer OTHER, MEDICAID, SELFPAY ==
[2021-01-30 11:11] LABS: Thyroid Stimulating Hormone > 100.00 uIU/mL (0.32-4.0)
[2021-02-02 05:06] LABS: Thyroglobulin Antibody <1 IU/mL (<=1); Thyroglobulin Level 0.8 ng/mL
== END 2021-01-30 06:58 | disposition home or self-care (01) ==
LOC: HO.LAB 06:57
PROVIDERS: PCP Internal Medicine; Visit Provider Internal Medicine Endocrinology, Diabetes & Metabolism
DX: C73 Malignant neoplasm of thyroid gland (principal)
CPT/HCPCS: 36415; 84432; 84443; 86800

== ENCOUNTER 2021-02-01 07:29 | Outpatient (REF) | payer OTHER, MEDICAID, SELFPAY ==
[2021-02-01 09:28] LABS: Thyroid Stimulating Hormone 14.33 uIU/mL (0.32-4.0)
[2021-02-05 05:11] LABS: Thyroglobulin Antibody <1 IU/mL (<=1); Thyroglobulin Level 0.6 ng/mL
== END 2021-02-01 07:30 | disposition home or self-care (01) ==
LOC: HO.LAB 07:29
PROVIDERS: PCP Internal Medicine; Visit Provider Internal Medicine Endocrinology, Diabetes & Metabolism
DX: L03.012 Cellulitis of left finger (principal); C73 Malignant neoplasm of thyroid gland; D12.6 Benign neoplasm of colon, unspecified; E11.9 Type 2 diabetes mellitus without complications; I10 Essential (primary) hypertension; E78.5 Hyperlipidemia, unspecified; E89.0 Postprocedural hypothyroidism; Z88.0 Allergy status to penicillin; Z90.710 Acquired absence of both cervix and uterus
CPT/HCPCS: 36415; 84432; 84443; 86800

== ENCOUNTER → 2021-02-06 10:42 | Outpatient (BNVA) | payer OTHER, MEDICAID, SELFPAY | PROVIDERS: PCP Internal Medicine; Visit Provider Internal Medicine Cardiovascular Disease | DX: R07.89 Other chest pain (principal); E78.5 Hyperlipidemia, unspecified; I10 Essential (primary) hypertension | CPT/HCPCS: 93005 ==

== ENCOUNTER 2021-02-11 13:08 | Outpatient (REF) | payer OTHER, MEDICAID, SELFPAY | END 2021-02-11 13:09 | disposition home or self-care (01) | LOC: HO.LAB 13:08 | PROVIDERS: Visit Provider Internal Medicine | DX: Z20.822 Contact with and (suspected) exposure to COVID-19 (principal) | CPT/HCPCS: 36415; C9803; U0003; U0005 ==

== ENCOUNTER → 2021-03-05 09:28 | Outpatient (BNVA) | payer OTHER, MEDICAID, SELFPAY | PROVIDERS: PCP Internal Medicine; Visit Provider Orthopaedic Surgery ==

== ENCOUNTER 2021-03-07 07:48 | Outpatient (REF) | payer OTHER, MEDICAID, SELFPAY ==
--- NOTE | ~2021-03-07 | XR_ITS ---
EXAMINATION: XR KNEE STANDING, BILATERAL XR KNEE, RIGHT XR KNEE, LEFT CLINICAL INFORMATION: Pain. COMPARISON: Left knee MRI dated 01/15/2019 and left knee radiographs dated 12/09/2018. Bilateral knee radiographs dated 08/19/2018. TECHNIQUE: AP standing view of the right and left knee. Lateral and sunrise views of the right and left knee. FINDINGS: Right knee: Mild joint space narrowing at the lateral aspect of the patellofemoral joint. Tiny medial and patellofemoral compartment marginal osteophytes. No osseous erosion. No fracture or dislocation. No abnormal soft tissue calcification. No significant joint effusion. Left knee: Mild joint space narrowing at the lateral aspect of the patellofemoral joint. Tiny patellofemoral marginal osteophytes. No osseous erosion. No fracture or dislocation. No abnormal soft tissue calcification. No significant joint effusion. XR/XR knee standing BI IMPRESSION: Right knee: Mild medial and patellofemoral compartment osteoarthritis, unchanged. Left knee: Mild patellofemoral compartment osteoarthritis, unchanged.
--- NOTE | ~2021-03-07 | XR_ITS ---
EXAMINATION: XR KNEE STANDING, BILATERAL XR KNEE, RIGHT XR KNEE, LEFT CLINICAL INFORMATION: Pain. COMPARISON: Left knee MRI dated 01/15/2019 and left knee radiographs dated 12/09/2018. Bilateral knee radiographs dated 08/19/2018. TECHNIQUE: AP standing view of the right and left knee. Lateral and sunrise views of the right and left knee. FINDINGS: Right knee: Mild joint space narrowing at the lateral aspect of the patellofemoral joint. Tiny medial and patellofemoral compartment marginal osteophytes. No osseous erosion. No fracture or dislocation. No abnormal soft tissue calcification. No significant joint effusion. Left knee: Mild joint space narrowing at the lateral aspect of the patellofemoral joint. Tiny patellofemoral marginal osteophytes. No osseous erosion. No fracture or dislocation. No abnormal soft tissue calcification. No significant joint effusion. XR/XR knee LT 2V IMPRESSION: Right knee: Mild medial and patellofemoral compartment osteoarthritis, unchanged. Left knee: Mild patellofemoral compartment osteoarthritis, unchanged.
--- NOTE | ~2021-03-07 | XR_ITS ---
EXAMINATION: XR KNEE STANDING, BILATERAL XR KNEE, RIGHT XR KNEE, LEFT CLINICAL INFORMATION: Pain. COMPARISON: Left knee MRI dated 01/15/2019 and left knee radiographs dated 12/09/2018. Bilateral knee radiographs dated 08/19/2018. TECHNIQUE: AP standing view of the right and left knee. Lateral and sunrise views of the right and left knee. FINDINGS: Right knee: Mild joint space narrowing at the lateral aspect of the patellofemoral joint. Tiny medial and patellofemoral compartment marginal osteophytes. No osseous erosion. No fracture or dislocation. No abnormal soft tissue calcification. No significant joint effusion. Left knee: Mild joint space narrowing at the lateral aspect of the patellofemoral joint. Tiny patellofemoral marginal osteophytes. No osseous erosion. No fracture or dislocation. No abnormal soft tissue calcification. No significant joint effusion. XR/XR knee RT 2V IMPRESSION: Right knee: Mild medial and patellofemoral compartment osteoarthritis, unchanged. Left knee: Mild patellofemoral compartment osteoarthritis, unchanged.
== END 2021-03-07 07:49 | disposition home or self-care (01) ==
LOC: HO.HOSX 07:48
PROVIDERS: Visit Provider Orthopaedic Surgery
DX: M25.561 Pain in right knee (principal); M25.562 Pain in left knee; M17.12 Unilateral primary osteoarthritis, left knee
CPT/HCPCS: 20610; 73560; 73565; J1100

== ENCOUNTER 2021-03-24 10:47 | Emergency (ER) | payer OTHER, MEDICAID, SELFPAY ==
--- NOTE | ~2021-03-24 | CT_ITS ---
EXAMINATION: CT ABDOMEN AND PELVIS WITHOUT CONTRAST CLINICAL INFORMATION: Flank pain. Question renal stones. COMPARISON: CT of the abdomen and pelvis without contrast dated January 14, 2021. TECHNIQUE: Multidetector volumetric imaging was performed from the superior aspect of the liver through the pubic symphysis. Sagittal and coronal reformatted images were obtained on the technologist's workstation. This CT examination was performed using dose optimization techniques as appropriate, variously including the following: *Automated exposure control *Adjustment of mA and/or kV according to patient size (this includes techniques or standardized protocols for targeted exams where dose is matched to indication/reason for exam; i.e. extremities or head) *Use of iterative reconstruction technique DLP: 360 mGy-cm FINDINGS: LINES AND TUBES: None. LOWER THORAX: Lung bases are clear. Small right basilar calcified granuloma (3:6). Heart is normal in size. No pericardial effusion or thickening. HEPATOBILIARY: The liver is normal in size, contour, and attenuation. No focal hepatic lesions. The gallbladder is present and otherwise unremarkable. No biliary dilatation. SPLEEN: Normal. PANCREAS: Normal. ADRENALS: Normal. KIDNEYS/URETERS: Duplicated right collecting collecting system is noted with two separate right ureters which are best appreciated at (3:40). The ureters are normal throughout their course. No ureteral calculi. No right renal calculi. Normal left kidney. Normal left ureter. BLADDER: Urinary bladder is normal in appearance. No urinary bladder calculi appreciated. PELVIC ORGANS: Vaginal cuff is noted. Uterus is not visualized. No adnexal mass. GI TRACT: No dilated or thick walled loops of bowel. Few sigmoid colon diverticula. The appendix is normal (3:54). PERITONEUM/RETROPERITONEUM AND MESENTERY: No intraperitoneal free air or fluid. LYMPH NODES: No pathologically enlarged lymph nodes. VESSELS: Normal in caliber. Mild aortoiliac atherosclerotic calcification. BONES AND SOFT TISSUES: No aggressive osseous lesions. CT/CT abdomen pelvis wo con IMPRESSION: 1. Duplicated right renal collecting system. No renal, ureteral, or urinary bladder calculi. 2. Few sigmoid colon diverticula. No evidence of diverticulitis.
[2021-03-24 11:11] VITALS: BP 136/83; PULSE 100; RESP 18; TEMP 36.7; O2SAT 98; BMI 26.2
[2021-03-24 11:46] LABS: Glucose Urine UA NEG (NEG); Leukocyte Esterase Urine TRACE (NEG); Nitrite Urine NEG (NEG); PH 7.5 (5.0-8.0); Urine Blood 3+ (NEG); Urine Ketones NEG (NEG); Urine Protein TRACE MG/DL (NEG-TRACE)
[2021-03-24 11:50] LABS: Appearance Urine HAZY; Color Urine PINK
[2021-03-24] MEDS: 0.9 % Sodium Chloride 1,000 ML 999 ML IV (11:56)
[2021-03-24 12:01] LABS: MANUAL DIFF FLAG NO
[2021-03-24 12:04] LABS: Basophils Percent Auto 0.5 % (0-2); Eosinophils Absolute Auto 0.1 X10*3/uL (0.0-0.4); Eosinophils Percent Auto 0.7 % (0-4); Hematocrit 37.4 % (37-47); Hemoglobin 12.4 g/dl (12.0-16.0); Imm Gran Abs Auto 0.02 X10*3/uL (0.00-0.03); Imm Gran Pct Auto 0.2 % (0.0-0.4); Lymphocytes Absolute Auto 1.2 X10*3/uL (1.2-4.9); Lymphocytes Percent Auto 14.8 % (20-40); Mean Corpuscular HGB Conc 33.2 g/dl (31.0-35.0); Mean Corpuscular Hemoglobin 27.9 pg (27.0-33.0); Mean Corpuscular Volume 84.2 fL (80-98); Mean Platelet Volume 10.7 fL (9.4-12.3); Monocytes Absolute Auto 0.5 X10*3/uL (0.1-1.2); Monocytes Percent Auto 5.6 % (2-11); Neutrophils Absolute Auto 6.5 X10*3/uL (2.0-8.3); Neutrophils Percent Auto 78.2 % (45-73); Platelet Count 221 X10*3/uL (160-400); Red Blood Count 4.44 X10*6/uL (4.20-5.50); White Blood Count 8.4 X10*3/uL (4.8-10.8)
[2021-03-24 12:04] LABS: Oval Fat Bodies Urine NOTED; WBC Clumps Urine NOTED
[2021-03-24] MEDS: Ketorolac Tromethamine 30 MG/ML VIAL IVPUSH (12:04)
[2021-03-24] MEDS: Phenazopyridine HCL 100 MG TABLET 200 MG PO (12:05)
--- NOTE | 2021-03-24 12:05 | ED.GENADULT ---
HPI - General Adult General Chief complaint: General Medical Stated complaint: blood in urine, flank pain Time Seen by Provider: 03/24/21 11:40 Source: patient Mode of arrival: ambulatory Limitations: no limitations History of Present Illness HPI narrative: Patient presents to ED for right flank pain with dysuria and slight hematuria for 2 days. Patient states no fever or chills. Patient denies any recent trauma to the abdomen/flank area. Patient states history of kidney stones in the past. Related Data Home Medications Medication Instructions Recorded Confirmed hydrochlorothiazide 12.5 mg capsule 12.5 mg PO DAILY 10/10/20 02/06/21 losartan 50 mg tablet 50 mg PO BID 10/10/20 02/06/21 metoprolol succinate 50 mg 50 mg PO DAILY 02/06/21 02/06/21 tablet,extended release 24 hr Previous Rx's Medication Instructions Recorded atorvastatin 40 mg tablet 40 mg PO BEDTIME #90 tab 10/15/20 omega-3 fatty acids-fish oil 340 1 cap PO BEDTIME 30 Days #30 cap 01/17/21 mg-1,000 mg capsule cholecalciferol (vitamin D3) 50 50 mcg PO DAILY 30 Days #30 cap 01/23/21 mcg (2,000 unit) capsule hydrocodone-acetaminophen 1 tab PO Q4-6H PRN #5 tab 01/24/21 levothyroxine 112 mcg tablet 112 mcg PO DAILY 90 Days #90 tab 01/29/21 metformin 500 mg tablet,extended 500 mg PO BID 90 Days #180 tab 01/29/21 release 24 hr sulfamethoxazole 800 1 tab PO Q12H #28 tab 02/01/21 mg-trimethoprim 160 mg tablet cefuroxime axetil 500 mg PO Q12H #20 tab 03/24/21 naproxen 500 mg PO BID PRN #20 tab 03/24/21 Allergies Allergy/AdvReac Type Severity Reaction Status Date / Time Penicillins [PENICILLINS] Allergy Unknown HIVES Verified 03/07/21 09:44 Review of Systems Review of Systems: Yes all other systems are reviewed and are negative Constitutional: Constitutional: Reports as per HPI and Reports no additional constitutional complaints Eyes: Eyes: Reports as per HPI and Reports no additional eye complaints ENT: Reports system reviewed and no additional complaints, except as documented and Reports as per HPI Cardiovascular: Cardiovascular: Reports as per HPI and Reports no additional cardiovascular complaints Respiratory: Respiratory: Reports as per HPI and Reports no additional respiratory complaints Gastrointestinal: Gastrointestinal: Reports as per HPI and Reports no additional gastrointestinal complaints Genitourinary: Genitourinary: Reports no additional female genitourinary complaints, Reports as per HPI and Reports dysuria Comments: Right flank pain. Mild hematuria Musculoskeletal: Musculoskeletal: Reports no additional musculoskeletal complaints and Reports as per HPI Neurologic: Reports system reviewed and no additional complaints, except as documented and Reports as per HPI Psychiatric: Psychiatric: Reports no additional psychiatric complaints and Reports as per HPI [facility] Past Medical History Medical History Constipation by delayed colonic transit Diabetes Dyslipidemia Gastritis Hypertension Post-surgical hypothyroidism Primary thyroid cancer Tubular adenoma of colon Vitamin D deficiency Surgical History History of esophagogastroduodenoscopy (EGD) Hx of section Hx of colonoscopy Hx of hernia repair Hx of hysterectomy Hx of thyroidectomy Family History Family History Father Stroke Heart attack Mother Diabetes mellitus Family/Other Family history of cancer Social History Social History Household Members: Spouse, Children and Other Alcohol intake: current Alcohol intake frequency: does not drink Smoking Status: Never smoker Advance Directives: No Advance Directives Information Provided: No Patient : No Physical Exam Vital Signs: Vital Signs: Last Vital Signs Temp 98.1 F 03/24/21 11:11 Pulse 80 03/24/21 14:00 Resp 18 03/24/21 14:00 BP 139/71 03/24/21 14:00 Pulse Ox 99 03/24/21 14:00 Body Mass Index 26.2 Const: General: cooperative, healthy appearing, comfortable, no acute distress, well developed, alert, awake and Physically active Orientation/consciousness: patient oriented x3 HENMT: Head: Yes normal to inspection, Yes No palpable skull fracture present, Yes normocephalic, Yes atraumatic and No abrasion Eyes: General: appearance normal, both eyes and all related structures Neck: Neck: Yes normal visual inspection, Yes full ROM, Yes no lymphadenopathy, Yes no meningeal signs, Yes trachea midline, Yes supple and No tender Chest: Chest palpation & inspection: normal inspection of the chest and normal palpation of entire chest wall Resp: Effort & Inspection: normal respiratory effort and able to speak in complete sentences Auscultation: clear to auscultation bilaterally Cardio: Jugular venous distension: no JVD Heart sounds: S1 normal heart sound present and S2 normal heart sound present GI: Inspection: Yes normal to inspection and No abdominal wall ecchymosis Palpation (GI): not firm, Tenderness to palpation present (GI) suprapubicly, no guarding and not rigid : General: Yes CVA tenderness (Right mild) Back/Spine/Pelvis: Back: CVA tenderness (Right mild) and No back tenderness Skin: General skin exam: no rashes or lesions noted and elasticity normal Neuro: General: patient oriented x3, no meningeal signs and CN's II-XI intact bilaterally Cranial nerves: Yes CN's II-XII intact bilaterally Extrem: General: Yes normal to inspection and Yes full ROM Psych: Appearance: grossly normal, well kempt and not disheveled Course Course Course Narrative: Patient will be evaluated for kidney stone. Labs and fluids ordered. Pain medication ordered. Reevaluation(s) Reevaluation #1: Patient urine show large amounts of blood and white blood cell count. Was sent for CT to rule out any kidney stones. Patient given morphine after Toradol was not effective. Reevaluation #2: CT scan negative for kidney stones. Diagnosis UTI. Patient will be discharged with antibiotics and pain meds. Patient explained symptoms of pyelonephritis and told to return if she has them. Medical Decision Making [facility] Narrative Medical decision making narrative: UTI Lab Data Result diagrams: 03/24/21 11:53 03/24/21 11:53 Labs: Lab Results 03/24/21 03/24/21 03/24/21 Range/Units 11:21 11:53 11:53 WBC 8.4 (4.8-10.8) X10*3/uL RBC 4.44 (4.20-5.50) X10*6/uL Hgb 12.4 (12.0-16.0) g/dl Hct 37.4 (37-47) % MCV 84.2 (80-98) fL MCH 27.9 (27.0-33.0) pg MCHC 33.2 (31.0-35.0) g/dl RDW 13.0 (11.0-16.0) % Plt Count 221 (160-400) X10*3/uL MPV 10.7 (9.4-12.3) fL Immature Gran % (Auto) 0.2 (0.0-0.4) % Neut % (Auto) 78.2 H (45-73) % Lymph % (Auto) 14.8 L (20-40) % [place] % (Auto) 5.6 (2-11) % Eos % (Auto) 0.7 (0-4) % Baso % (Auto) 0.5 (0-2) % Lymph # (Auto) 1.2 (1.2-4.9) X10*3/uL [place] # (Auto) 0.5 (0.1-1.2) X10*3/uL Eos # (Auto) 0.1 (0.0-0.4) X10*3/uL Baso # (Auto) 0.0 (0.0-0.2) X10*3/uL Abs Immat Gran (auto) 0.02 (0.00-0.03) X10*3/uL Absolute Neuts (auto) 6.5 (2.0-8.3) X10*3/uL Absolute Nucleated RBC 0.000 (0.0-0.012) X10*3/uL Nucleated RBC % (auto) 0.0 (0.0-0.2) /100WBC PT 12.1 (10.8-13.0) SEC INR 1.0 (0.9-1.1) APTT 37.2 (24.1-38.0) SEC Sodium (135-145) mmol/L Potassium (3.3-5.1) mmol/L Chloride (96-108) mmol/L Carbon Dioxide (22-29) mmol/L Anion Gap (12-20) BUN (9-16) mg/dL Creatinine (0.5-1.4) mg/dL Estim Creat Clear Calc Estimated GFR Random Glucose (60-115) mg/dL Calcium (8.4-10.2) mg/dL Total Bilirubin (0.0-1.0) mg/dL Direct Bilirubin (0.0-0.5) mg/dL AST (5-31) U/L ALT (0-31) U/L Alkaline Phosphatase (39-117) U/L Total Protein (6.5-8.0) g/dL Albumin (3.5-5.0) g/dL Urine Color PINK Urine Appearance HAZY Urine pH 7.5 (5.0-8.0) Ur Specific [place] 1.010 (1.005-1.025) Urine Protein TRACE (NEG-TRACE) MG/DL Urine Glucose (UA) NEG (NEG) MG/DL Urine Ketones NEG (NEG) MG/DL Urine Blood 3+ H (NEG) Urine Nitrite NEG (NEG) Ur Leukocyte Esterase TRACE H (NEG) Urine RBC 15-29 H (0) /HPF Urine WBC 15-29 H (0-4) /HPF Urine WBC Clumps NOTED Ur Squamous Epith Cells NONE /LPF Urine Bacteria NONE /LPF Ur Oval Fat Bodies NOTED (NONE) 03/24/21 Range/Units 11:53 WBC (4.8-10.8) X10*3/uL RBC (4.20-5.50) X10*6/uL Hgb (12.0-16.0) g/dl Hct (37-47) % MCV (80-98) fL MCH (27.0-33.0) pg MCHC (31.0-35.0) g/dl RDW (11.0-16.0) % Plt Count (160-400) X10*3/uL MPV (9.4-12.3) fL Immature Gran % (Auto) (0.0-0.4) % Neut % (Auto) (45-73) % Lymph % (Auto) (20-40) % [place] % (Auto) (2-11) % Eos % (Auto) (0-4) % Baso % (Auto) (0-2) % Lymph # (Auto) (1.2-4.9) X10*3/uL [place] # (Auto) (0.1-1.2) X10*3/uL Eos # (Auto) (0.0-0.4) X10*3/uL Baso # (Auto) (0.0-0.2) X10*3/uL Abs Immat Gran (auto) (0.00-0.03) X10*3/uL Absolute Neuts (auto) (2.0-8.3) X10*3/uL Absolute Nucleated RBC (0.0-0.012) X10*3/uL Nucleated RBC % (auto) (0.0-0.2) /100WBC PT (10.8-13.0) SEC INR (0.9-1.1) APTT (24.1-38.0) SEC Sodium 142 (135-145) mmol/L Potassium 4.4 (3.3-5.1) mmol/L Chloride 103 (96-108) mmol/L Carbon Dioxide 30 H (22-29) mmol/L Anion Gap 13 (12-20) BUN 21 H (9-16) mg/dL Creatinine 0.75 (0.5-1.4) mg/dL Estim Creat Clear Calc 76.9 Estimated GFR > 60 Random Glucose 100 (60-115) mg/dL Calcium 9.1 (8.4-10.2) mg/dL Total Bilirubin 0.6 (0.0-1.0) mg/dL Direct Bilirubin 0.2 (0.0-0.5) mg/dL AST 19 (5-31) U/L ALT 18 (0-31) U/L Alkaline Phosphatase 70 (39-117) U/L Total Protein 7.7 (6.5-8.0) g/dL Albumin 4.7 (3.5-5.0) g/dL Urine Color Urine Appearance Urine pH (5.0-8.0) Ur Specific [place] (1.005-1.025) Urine Protein (NEG-TRACE) MG/DL Urine Glucose (UA) (NEG) MG/DL Urine Ketones (NEG) MG/DL Urine Blood (NEG) Urine Nitrite (NEG) Ur Leukocyte Esterase (NEG) Urine RBC (0) /HPF Urine WBC (0-4) /HPF Urine WBC Clumps Ur Squamous Epith Cells /LPF Urine Bacteria /LPF Ur Oval Fat Bodies (NONE) Discharge Plan Discharge Clinical Impression: UTI (urinary tract infection) Patient Disposition: Home, Self-Care Instructions: Urinary Tract Infection in Women (ED) Additional Instructions: Regrese al servicio de urgencias inmediatamente si empeora el dolor abdominal, n?useas, v?mitos, hematuria macrosc?pica, fiebre, escalofr?os, dolor corina en el costado o cualquier otro s?ntoma preocupante. Prescriptions: New cefuroxime axetil 500 mg tablet 500 mg PO Q12H Qty: 20 RF: 0 naproxen 500 mg tablet 500 mg PO BID PRN (Reason: pain) Qty: 20 RF: 0 No Action atorvastatin 40 mg tablet 40 mg PO BEDTIME Qty: 90 RF: 1 omega-3 fatty acids-fish oil 340-1,000 mg capsule 1 cap PO BEDTIME 30 Days Qty: 30 RF: 6 cholecalciferol (vitamin D3) 50 mcg (2,000 unit) capsule 50 mcg PO DAILY 30 Days Qty: 30 RF: 1 hydrocodone-acetaminophen 5-325 mg tablet 1 tab PO Q4-6H PRN (Reason: pain) Qty: 5 RF: 0 metoprolol succinate 50 mg tablet extended release 24 hr 50 mg PO DAILY RF: 0 hydrochlorothiazide 12.5 mg capsule 12.5 mg PO DAILY RF: 0 losartan 50 mg tablet 50 mg PO BID RF: 0 levothyroxine 112 mcg tablet 112 mcg PO DAILY 90 Days Qty: 90 RF: 3 metformin 500 mg tablet extended release 24 hr 500 mg PO BID 90 Days Qty: 180 RF: 1 sulfamethoxazole-trimethoprim [Bactrim DS] 800-160 mg tablet 1 tab PO Q12H Qty: 28 RF: 0 Referrals: Tamie Johnson MD [Primary Care Provider] - 2 days ([facility]I.) Print Language: [place]
[2021-03-24 12:10] LABS: Prothrombin Time 12.1 SEC (10.8-13.0)
[2021-03-24 12:13] LABS: Partial Thromboplastin Time 37.2 SEC (24.1-38.0)
[2021-03-24 12:29] LABS: Alanine Aminotransferase 18 U/L (0-31); Albumin Level 4.7 g/dL (3.5-5.0); Alkaline Phosphatase 70 U/L (39-117); Anion Gap 13 (12-20); Aspartate Amino Transferase 19 U/L (5-31); Bilirubin Direct 0.2 mg/dL (0.0-0.5); Bilirubin Total 0.6 mg/dL (0.0-1.0); Blood Urea Nitrogen 21 mg/dL (9-16); Calcium 9.1 mg/dL (8.4-10.2); Carbon Dioxide 30 mmol/L (22-29); Chloride 103 mmol/L (96-108); Creatinine Clr Calc Pharmacy 76.9; Estimated Glomerular Filt Rate > 60; Glucose Random 100 mg/dL (60-115); Potassium 4.4 mmol/L (3.3-5.1); Sodium 142 mmol/L (135-145); Total Protein 7.7 g/dL (6.5-8.0)
[2021-03-24 14:00] VITALS: BP 139/71; PULSE 80; RESP 18; O2SAT 99
[2021-03-24] MEDS: Morphine Sulfate 2 MG/ML CARTRIDGE IVPUSH (14:27)
== END 2021-03-24 15:39 | disposition home or self-care (01) ==
PROVIDERS: Physician Assistant; Emergency Provider Emergency Medicine Emergency Medical Services; PCP Internal Medicine
DX: N39.0 Urinary tract infection, site not specified (principal); R31.9 Hematuria, unspecified; R10.9 Unspecified abdominal pain; Z79.899 Other long term (current) drug therapy
CPT/HCPCS: 36415; 74176; 80053; 80076; 81001; 82248; 85025; 85610; 85730; 96365; 96375; 99284; J1885; J2270

== ENCOUNTER 2021-04-16 08:13 | Outpatient (REF) | payer OTHER, MEDICAID, SELFPAY ==
[2021-04-16 13:39] LABS: Glucose Urine UA NEG (NEG); Leukocyte Esterase Urine NEG (NEG); Nitrite Urine NEG (NEG); Specific Gravity - Urine <= 1.005 (1.005-1.025); Urine Blood NEG (NEG); Urine Ketones NEG (NEG); Urine Protein NEG (NEG-TRACE)
[2021-04-16 13:41] LABS: Appearance Urine CLEAR; Color Urine YELLOW
[2021-04-16 14:14] LABS: Free T4 (Free Thyroxine) 1.28 ng/dL (0.71-1.85); Thyroid Stimulating Hormone 2.19 uIU/mL (0.32-4.0)
[2021-04-20 06:11] LABS: Thyroglobulin Antibody <1 IU/mL (<=1); Thyroglobulin Level 0.1 ng/mL
== END 2021-04-16 08:14 | disposition home or self-care (01) ==
LOC: HO.LAB 08:13
PROVIDERS: Internal Medicine Endocrinology, Diabetes & Metabolism; PCP Internal Medicine; Visit Provider Nurse Practitioner Family
DX: K59.01 Slow transit constipation (principal); K29.70 Gastritis, unspecified, without bleeding; R10.11 Right upper quadrant pain; C73 Malignant neoplasm of thyroid gland
CPT/HCPCS: 36415; 81003; 84432; 84439; 84443; 86800

== ENCOUNTER 2021-04-16 13:50 | Outpatient (REF) | payer OTHER, MEDICAID, SELFPAY ==
--- NOTE | ~2021-04-16 | US_ITS ---
EXAMINATION: US RETROPERITONEAL LIMITED (RENAL ONLY) CLINICAL INFORMATION: Right upper quadrant pain. Urinary tract infection.. COMPARISON: Previous CT of the abdomen and pelvis 03/24/2021 TECHNIQUE: Grayscale and color imaging of the kidneys FINDINGS: RIGHT KIDNEY: 12.1 x 5.8 x 6.1 cm (SAG x AP x TRV). The kidney is normal in size, contour, and echogenicity. Renal cortical thickness is normal. No calculi or focal parenchymal lesions. There is a duplicated right renal collecting system. No hydronephrosis. LEFT KIDNEY: 10.4 x 5.8 x 6 cm (SAG x AP x TRV). The kidney is normal in size, contour, and echogenicity. Renal cortical thickness is normal. No calculi or focal parenchymal lesions. No hydronephrosis. US/US renal BI IMPRESSION: Duplicated right renal collecting system. Otherwise unremarkable exam.
== END 2021-04-16 13:51 | disposition home or self-care (01) ==
LOC: HO.HMGCX 13:50
PROVIDERS: Visit Provider Nurse Practitioner Family
DX: R10.11 Right upper quadrant pain (principal); N39.0 Urinary tract infection, site not specified
CPT/HCPCS: 76775

== ENCOUNTER 2021-04-17 12:18 | Outpatient (REF) | payer OTHER, MEDICAID, SELFPAY ==
--- NOTE | ~2021-04-17 | US_ITS ---
EXAMINATION: US PELVIS LIMITED (BLADDER) CLINICAL INFORMATION: Right upper quadrant pain. Question urinary tract infection. COMPARISON: Renal ultrasound evaluation of April 16, 2021 TECHNIQUE: Real-time imaging of the bladder. FINDINGS: BLADDER: Well distended and normal. Bilateral ureteral jets are demonstrated. Prevoid bladder volume is 211 mL. Postvoid bladder volume is 24 mL. US/US bladder IMPRESSION: No evidence of obstructive uropathy. Small postvoid residual..
== END 2021-04-17 12:19 | disposition home or self-care (01) ==
LOC: HO.US 12:18
PROVIDERS: PCP Internal Medicine; Visit Provider Nurse Practitioner Family
DX: R10.9 Unspecified abdominal pain (principal); N39.0 Urinary tract infection, site not specified; K21.9 Gastro-esophageal reflux disease without esophagitis
CPT/HCPCS: 76857; 87338

== ENCOUNTER → 2021-04-23 08:06 | Outpatient (BNVA) | payer OTHER, MEDICAID, SELFPAY | PROVIDERS: PCP Internal Medicine; Referring Provider Internal Medicine; Visit Provider Nurse Practitioner Family ==

== ENCOUNTER → 2021-05-15 08:06 | Outpatient (BNVA) | payer OTHER, MEDICAID, SELFPAY | PROVIDERS: Visit Provider Orthopaedic Surgery | DX: M65.4 Radial styloid tenosynovitis [de Quervain] (principal); L60.8 Other nail disorders | CPT/HCPCS: 20550; J1100 ==

== ENCOUNTER 2021-05-22 09:47 | Outpatient (REF) | payer OTHER, MEDICAID, SELFPAY ==
[2021-05-22 11:48] LABS: Glucose Urine UA NEG (NEG); Leukocyte Esterase Urine NEG (NEG); Nitrite Urine NEG (NEG); Urine Blood NEG (NEG); Urine Ketones NEG (NEG); Urine Protein NEG (NEG-TRACE)
[2021-05-22 11:51] LABS: Appearance Urine CLEAR; Color Urine YELLOW
[2021-05-22 15:59] LABS: C Reactive Protein 0.26 mg/dL (< or = 0.50)
[2021-05-28 18:21] LABS: Transglutaminase Ab IgG 3 U/mL; Transglutaminase IgA 1 U/mL
== END 2021-05-22 09:48 | disposition home or self-care (01) ==
LOC: HO.LAB 09:47
PROVIDERS: PCP Internal Medicine; Visit Provider Nurse Practitioner Family
DX: R10.9 Unspecified abdominal pain (principal); R30.0 Dysuria; K59.01 Slow transit constipation
CPT/HCPCS: 36415; 81003; 83516; 86140

== ENCOUNTER 2021-05-31 09:41 | Outpatient (REF) | payer OTHER, MEDICAID, SELFPAY ==
[2021-05-31 11:59] LABS: Free T4 (Free Thyroxine) 1.31 ng/dL (0.71-1.85); Thyroid Stimulating Hormone 1.46 uIU/mL (0.32-4.0)
[2021-06-04 04:48] LABS: Thyroglobulin Antibody <1 IU/mL (<=1); Thyroglobulin Level 0.1 ng/mL
== END 2021-05-31 09:42 | disposition home or self-care (01) ==
LOC: HO.LAB 09:41
PROVIDERS: PCP Internal Medicine; Visit Provider Internal Medicine Endocrinology, Diabetes & Metabolism
DX: C73 Malignant neoplasm of thyroid gland (principal); E89.0 Postprocedural hypothyroidism; E11.42 Type 2 diabetes mellitus with diabetic polyneuropathy; E78.5 Hyperlipidemia, unspecified; I10 Essential (primary) hypertension; E55.9 Vitamin D deficiency, unspecified
CPT/HCPCS: 36415; 82947; 84432; 84439; 84443; 86800

== ENCOUNTER 2021-07-25 15:03 | Emergency (ER) | payer OTHER, SELFPAY ==
--- NOTE | ~2021-07-25 | XR_ITS ---
EXAMINATION: LUMBAR SPINE, RIGHT ELBOW CLINICAL INFORMATION: Fall with back and elbow pain COMPARISON: CT abdomen pelvis 01/15/2020 TECHNIQUE: 3 views right elbow, 3 views lumbar spine FINDINGS: Elbow: No bone, joint or soft tissue abnormality is seen. Lumbar spine: Disc spaces and vertebral heights are well preserved. No bony destructive lesions seen. No acute fractures detected. XR/XR lumbar spine 2-3V IMPRESSION: Negative radiographs of the right elbow and lumbar spine
--- NOTE | ~2021-07-25 | XR_ITS ---
EXAMINATION: LUMBAR SPINE, RIGHT ELBOW CLINICAL INFORMATION: Fall with back and elbow pain COMPARISON: CT abdomen pelvis 01/15/2020 TECHNIQUE: 3 views right elbow, 3 views lumbar spine FINDINGS: Elbow: No bone, joint or soft tissue abnormality is seen. Lumbar spine: Disc spaces and vertebral heights are well preserved. No bony destructive lesions seen. No acute fractures detected. XR/XR elbow RT min 3V IMPRESSION: Negative radiographs of the right elbow and lumbar spine
[2021-07-25 15:52] VITALS: BP 149/78; PULSE 80; RESP 16; TEMP 37; O2SAT 100; BMI 26.6
--- NOTE | 2021-07-25 16:42 | ED_ITS ---
HPI - Fall General Chief Complaint: Fall Stated Complaint: fall Time Seen by Provider: 07/25/21 16:42 Source: patient Mode of arrival: ambulatory Limitations: no limitations History of Present Illness HPI Narrative: 60 y/o female presents for evaluation of right elbow pain and left lower back/buttock pain s/p fall 2 days ago. She reports slipping at the bottom of her steps and falling onto her buttocks. She tried to catch herself and banged her right elbow against the wall. She is able to fully bend and extend the elbow but she has some abrasions that make movement painful. She reports bruising on her lower back/buttock and pain with any movement. She has been taking acetamenophen with no improvement. Can't take NSAIDs due to hx gastritis. No LE weakness, numbness, tingling, or incontinence. MD complaint: fall Onset (ago): day(s) (2) Fall from: standing Fall witnessed: no Place fall occurred: home Prolonged down time: no Symptoms prior to fall: none Context: tripped/slipped Location of injury: back Location of injury - extremities: right: elbow Severity: moderate Severity scale (1-10): 7 Quality: stabbing Associated symptoms (after fall): denies Related Data Home Medications Medication Instructions Recorded Confirmed hydrochlorothiazide 12.5 mg capsule 12.5 mg PO DAILY 10/10/20 05/31/21 losartan 50 mg tablet 50 mg PO BID 10/10/20 05/31/21 metoprolol succinate 50 mg 50 mg PO DAILY 02/06/21 05/31/21 tablet,extended release 24 hr amitriptyline 10 mg tablet 10 mg PO BEDTIME 05/22/21 05/31/21 loteprednol etabonate 0.5 % eye 1 drp OPHTHALMIC (EYE) QID 05/22/21 05/31/21 drops,suspension multivitamin 1 tab PO QAM 05/22/21 05/31/21 phenazopyridine 200 mg tablet 200 mg PO Q8H PRN 05/22/21 05/31/21 Previous Rx's Medication Instructions Recorded hydrocodone 5 mg-acetaminophen 325 1 tab PO Q4-6H PRN #5 tab 01/24/21 mg tablet metformin 500 mg tablet,extended 500 mg PO BID 90 Days #180 tab 01/29/21 release 24 hr cefuroxime axetil 500 mg tablet 500 mg PO Q12H #20 tab 03/24/21 atorvastatin 40 mg tablet 80 mg PO BEDTIME #90 tab 04/08/21 methylcellulose (laxative) 500 mg 500 mg PO DAILY #30 tab 04/16/21 tablet (Citrucel) omeprazole 20 mg capsule,delayed 20 mg PO DAILY #30 cap 04/23/21 release docusate sodium 100 mg capsule 100 mg PO BID #60 cap 05/22/21 cholecalciferol (vitamin D3) 50 50 mcg PO DAILY 30 Days #30 cap 05/31/21 mcg (2,000 unit) capsule levothyroxine 112 mcg tablet 112 mcg PO DAILY 90 Days #90 tab 05/31/21 blood sugar diagnostic (FreeStyle #100 ea 07/09/21 Lite Strips) sennosides 8.6 mg tablet (Natural 17.2 mg PO BEDTIME PRN #30 tab 07/12/21 Senna Laxative) omega-3 fatty acids-fish oil 340 1 cap PO BEDTIME 30 Days #30 cap 07/23/21 mg-1,000 mg capsule cyclobenzaprine 5 mg tablet 5 mg PO TID PRN #8 tab 07/25/21 ibuprofen 600 mg tablet 600 mg PO Q8H PRN #15 tab 07/25/21 lidocaine 5 % topical patch 1 patch TOPICAL DAILY #15 ea 07/25/21 (Lidoderm) Allergies Allergy/AdvReac Type Severity Reaction Status Date / Time Penicillins [PENICILLINS] Allergy Unknown HIVES Verified 05/22/21 10:03 Review of Systems Review of Systems: Constitutional: No Fever, No Chills Respiratory: No Cough, No Sputum, No Wheezing, No dyspnea Gastrointestinal: No Nausea, No Vomiting, No abdominal Pain Genitourinary: No Hematuria Musculoskeletal: No joint pain, + Myalgias Skin: No Skin Lesions, No rash Neuro: No Weakness, No Numbness, No Dizziness, No Headache Heme/Lymph: + Bruising, No Lymphadenopathy PMFSH Past Medical History Medical History (Updated 07/25/21 @ 18:10 by DAY Armando) Blood in urine Constipation by delayed colonic transit Diabetes Dyslipidemia Gastritis Hypertension Post-surgical hypothyroidism Primary thyroid cancer Tubular adenoma of colon Vitamin D deficiency Surgical History History of esophagogastroduodenoscopy (EGD) Hx of section Hx of colonoscopy Hx of hernia repair Hx of hysterectomy Hx of thyroidectomy Family History Family History Father Stroke Heart attack Mother Diabetes mellitus Family/Other Family history of cancer Social History Social History Household Members: Spouse, Children and Other Alcohol intake: current Alcohol intake frequency: does not drink Patient Tobacco Use Status: Former Tobacco user Advance Directives: No Advance Directives Information Provided: No Physical Exam Vital Signs: Vital Signs: Last Vital Signs Temp 98.6 F 07/25/21 15:52 Pulse 80 07/25/21 15:52 Resp 16 07/25/21 15:52 BP 149/78 H 07/25/21 15:52 Pulse Ox 100 07/25/21 15:52 Body Mass Index 26.6 Appearance: Alert. Oriented X3. No acute distress. Eyes: Pupils equal, round and reactive to light. ENT: Pharynx normal. Neck: Normal inspection. Neck supple. CVS: Normal heart rate and rhythm. Pulses normal. Respiratory: No respiratory distress. Breath sounds normal. Abdomen: Soft and nontender. +BS x4 Back: normal to inspection. left lower lumbar area and upper gluteus with ecchymosis and tenderness. no lumbar spinal tenderness. normal spinal ROM. Skin: Skin warm and dry. Normal skin color. Normal skin turgor. No rashes. Extremities: No lower extremity edema. Right elbow with well healing abrasions. MIld tenderness throughout, no point tenderness. No swelling. Normal ROM. Neuro: Oriented X 3. No motor deficit. No sensory deficit.Steady gait. Course Course Course Narrative: 60 y/o female presenting with left buttock and back pain s/p mechanical fall 2 days ago. Exam consistent with soft tissue injury, contusions but will get XR to r/o acute fractures. Reevaluation(s) Reevaluation #1: XR's negative. Pain improved with application of ice. Patient stable for discharge - will give short course of low dose muscle relaxer as she is reporting muscle pain and not being able to sleep. NSAID and lidoderm also prescribed. Encouraged to f/u with PCP. Stable for d/c home with supportive care. Discharge Plan Discharge Clinical Impression: Contusion, buttock, Abrasion of elbow Patient Disposition: Home, Self-Care Instructions: Contusion in Adults (ED) Additional Instructions: Your x-rays today were normal. Recommend rest. No bending, lifting or twisting. Use ice several times per day for 20 minutes at a time for the next 48 hours and then change to heat. Take medications as prescribed to help with pain and discomfort. Follow up with your Primary Care Doctor this week. If your pain worsens, if you develop new numbness, tingling, weakness, or any other concerning symptoms call 911 or come back to the ER right away for evaluation. Prescriptions: New ibuprofen 600 mg tablet 600 mg PO Q8H PRN (Reason: pain) Qty: 15 RF: 0 cyclobenzaprine 5 mg tablet 5 mg PO TID PRN (Reason: muscle spasm) Qty: 8 RF: 0 lidocaine [Lidoderm] 5 % adhesive patch,medicated 1 patch topical DAILY Qty: 15 RF: 0 No Action atorvastatin 40 mg tablet 80 mg PO BEDTIME Qty: 90 RF: 1 (DME) FreeStyle Lite Strips Strip See Rx Instructions .ROUTE .MEDSUPPLY Qty: 100 RF: 10 sennosides [Natural Senna Laxative] 8.6 mg tablet 17.2 mg PO BEDTIME PRN (Reason: constipation) Qty: 30 RF: 1 omega-3 fatty acids-fish oil 340-1,000 mg capsule 1 cap PO BEDTIME 30 Days Qty: 30 RF: 6 hydrocodone-acetaminophen 5-325 mg tablet 1 tab PO Q4-6H PRN (Reason: pain) Qty: 5 RF: 0 cefuroxime axetil 500 mg tablet 500 mg PO Q12H Qty: 20 RF: 0 metoprolol succinate 50 mg tablet extended release 24 hr 50 mg PO DAILY RF: 0 omeprazole 20 mg capsule,delayed release(DR/EC) 20 mg PO DAILY Qty: 30 RF: 3 loteprednol etabonate 0.5 % drops,suspension 1 drp ophthalmic (eye) QID RF: 0 amitriptyline 10 mg tablet 10 mg PO BEDTIME RF: 0 multivitamin Tablet 1 tab PO QAM RF: 0 phenazopyridine 200 mg tablet 200 mg PO Q8H PRNRF: 0 docusate sodium 100 mg capsule 100 mg PO BID Qty: 60 RF: 3 hydrochlorothiazide 12.5 mg capsule 12.5 mg PO DAILY RF: 0 losartan 50 mg tablet 50 mg PO BID RF: 0 metformin 500 mg tablet extended release 24 hr 500 mg PO BID 90 Days Qty: 180 RF: 1 levothyroxine 112 mcg tablet 112 mcg PO DAILY 90 Days Qty: 90 RF: 3 cholecalciferol (vitamin D3) 50 mcg (2,000 unit) capsule 50 mcg PO DAILY 30 Days Qty: 30 RF: 4 Citrucel 500 mg tablet 500 mg PO DAILY Qty: 30 RF: 2 Print Language: Ukrainian
== END 2021-07-25 18:22 | disposition home or self-care (01) ==
PROVIDERS: Emergency Provider Emergency Medicine; PCP Internal Medicine
DX: S30.0XXA Contusion of lower back and pelvis, initial encounter (principal); S50.311A Abrasion of right elbow, initial encounter; W10.8XXA Fall (on) (from) other stairs and steps, initial encounter; Y93.89 Activity, other specified; Y92.038 Other place in apartment as the place of occurrence of the external cause; Y99.9 Unspecified external cause status
CPT/HCPCS: 72100; 73080; 99283

== ENCOUNTER 2021-08-02 10:40 | Outpatient (REF) | payer OTHER, MEDICAID, SELFPAY ==
--- NOTE | ~2021-08-02 | XR_ITS ---
EXAMINATION: XR SACRUM/COCCYX XR HIP WITH PELVIS, RIGHT CLINICAL INFORMATION: Pain. Question fracture, osteoarthritis. COMPARISON: Lumbar spine radiographs dated 07/25/2021 TECHNIQUE: AP and lateral views of the sacrum and coccyx. AP view of the pelvis with AP and frog-leg lateral views of the right hip. FINDINGS: SACRUM/COCCYX: No acute fracture or subluxation. No joint space narrowing or marginal osteophytes. No osseous erosion. No abnormal soft tissue calcification. RIGHT HIP AND PELVIS: No acute fracture or dislocation. Mild right hip joint space narrowing with small marginal osteophytes. More minimal left hip joint space narrowing with tiny marginal osteophytes. No osseous erosion. No abnormal soft tissue calcification. XR/XR hip RT w PEL1V IMPRESSION: SACRUM/COCCYX: No acute osseous abnormality. RIGHT HIP AND PELVIS: Mild right and minimal left hip osteoarthritis.
--- NOTE | ~2021-08-02 | XR_ITS ---
EXAMINATION: XR SACRUM/COCCYX XR HIP WITH PELVIS, RIGHT CLINICAL INFORMATION: Pain. Question fracture, osteoarthritis. COMPARISON: Lumbar spine radiographs dated 07/25/2021 TECHNIQUE: AP and lateral views of the sacrum and coccyx. AP view of the pelvis with AP and frog-leg lateral views of the right hip. FINDINGS: SACRUM/COCCYX: No acute fracture or subluxation. No joint space narrowing or marginal osteophytes. No osseous erosion. No abnormal soft tissue calcification. RIGHT HIP AND PELVIS: No acute fracture or dislocation. Mild right hip joint space narrowing with small marginal osteophytes. More minimal left hip joint space narrowing with tiny marginal osteophytes. No osseous erosion. No abnormal soft tissue calcification. XR/XR sacrum coccyx min 2V IMPRESSION: SACRUM/COCCYX: No acute osseous abnormality. RIGHT HIP AND PELVIS: Mild right and minimal left hip osteoarthritis.
== END 2021-08-02 10:41 | disposition home or self-care (01) ==
LOC: HO.XRAY 10:40
PROVIDERS: Absent Provider Internal Medicine; PCP Internal Medicine; Visit Provider Emergency Medicine
DX: M54.10 Radiculopathy, site unspecified (principal); Z91.81 History of falling
CPT/HCPCS: 72220; 73502

== ENCOUNTER → 2021-08-19 09:52 | Outpatient (BNVA) | payer OTHER, MEDICAID, SELFPAY | PROVIDERS: PCP Internal Medicine; Referring Provider Internal Medicine; Visit Provider Nurse Practitioner Family ==

== ENCOUNTER 2021-09-13 09:05 | Outpatient (REF) | payer OTHER, MEDICAID, SELFPAY ==
--- NOTE | ~2021-09-13 | US_ITS ---
EXAMINATION: US ABDOMEN COMPLETE CLINICAL INFORMATION: Right upper quadrant pain. COMPARISON: CT abdomen and pelvis 03/24/2021. Renal ultrasound 04/16/2021. TECHNIQUE: Real-time imaging of the abdominal viscera. FINDINGS: PANCREAS: Normal. ABDOMINAL AORTA: The proximal, mid, and distal segments are normal in caliber. INFERIOR VENA CAVA: Visualized portions are normal. LIVER: The liver is normal in size. The liver contour is normal. Liver echotexture is increased. No focal hepatic lesion. There is no intrahepatic biliary duct dilatation seen. GALLBLADDER: Normal. The gallbladder is physiologically distended without evidence of stones, sludge, polyps, wall thickening or pericholecystic fluid. COMMON BILE DUCT: Normal in caliber measuring 0.7 cm in diameter. RIGHT KIDNEY: There is a duplicated right renal collecting system. No hydronephrosis. No renal calculi or focal parenchymal lesions. The kidney measures 12.4 cm in maximum dimension. LEFT KIDNEY: No hydronephrosis. No renal calculi or focal parenchymal lesions. The kidney measures 10.6 cm in maximum dimension. SPLEEN: Normal. The spleen measures 10.0 cm in maximum dimension. FREE FLUID: None. US/US abdomen complete IMPRESSION: Echogenic liver. Differential would include hepatocellular disease and fatty infiltration. There is no evidence of fatty infiltration on most recent prior CT scans of the abdomen and pelvis March 2021 and January 2021.
== END 2021-09-13 09:06 | disposition home or self-care (01) ==
LOC: HO.US 09:05
PROVIDERS: Absent Provider Internal Medicine; PCP Internal Medicine; Visit Provider Internal Medicine
DX: R10.11 Right upper quadrant pain (principal)
CPT/HCPCS: 76700

== ENCOUNTER → 2021-09-26 08:20 | Outpatient (BNVA) | payer OTHER, MEDICAID, SELFPAY | PROVIDERS: PCP Internal Medicine; Visit Provider Orthopaedic Surgery | DX: E11.42 Type 2 diabetes mellitus with diabetic polyneuropathy (principal); M17.12 Unilateral primary osteoarthritis, left knee; M17.11 Unilateral primary osteoarthritis, right knee | CPT/HCPCS: 20610; J1100 ==

== ENCOUNTER → 2021-09-27 13:22 | Outpatient (BNVA) | payer OTHER, MEDICAID, SELFPAY | PROVIDERS: PCP Internal Medicine; Visit Provider Nurse Practitioner Family ==

== ENCOUNTER 2021-10-23 08:40 | Outpatient (REF) | payer OTHER, MEDICAID, SELFPAY ==
[2021-10-23 09:58] LABS: Vitamin D 25-OH Total 50.6 ng/mL (>30)
== END 2021-10-23 08:41 | disposition home or self-care (01) ==
LOC: HO.LAB 08:40
PROVIDERS: PCP Internal Medicine; Visit Provider Internal Medicine
DX: E55.9 Vitamin D deficiency, unspecified (principal)
CPT/HCPCS: 36415; 82306

== ENCOUNTER 2021-10-25 11:13 | Outpatient (REF) | payer OTHER, MEDICAID, SELFPAY ==
--- NOTE | ~2021-10-25 | XR_ITS ---
EXAMINATION: XR LUMBOSACRAL SPINE CLINICAL INFORMATION: Left hip pain, lumbago. COMPARISON: 07/25/2021 TECHNIQUE: Three views of the lumbosacral spine. FINDINGS: There are 5 [id number] lumbar vertebra. The bony texture and alignment is satisfactory. Pedicles are intact. There is mild narrowing of the L5-S1 disc space. There is facet arthropathy seen bilaterally at L5-S1. No acute fracture, spondylolisthesis, or spondylolysis identified. XR/XR lumbar spine 2-3V IMPRESSION: No acute fracture, spondylolisthesis, or spondylolysis. Bilateral facet arthropathy L5-S1 with mild disc space narrowing at L5-S1.
--- NOTE | ~2021-10-25 | XR_ITS ---
EXAMINATION: XR HIP, LEFT CLINICAL INFORMATION: Left hip pain COMPARISON: 08/02/2021 TECHNIQUE: Two views of the left hip. FINDINGS: Bones and soft tissues are normal. No fracture. Alignment is anatomic. Hip joint space is maintained. XR/XR hip LT min 2V IMPRESSION: Normal left hip.
== END 2021-10-25 11:14 | disposition home or self-care (01) ==
LOC: HO.XRAY 11:13
PROVIDERS: Absent Provider Internal Medicine; PCP Internal Medicine; Visit Provider Nurse Practitioner
DX: M54.42 Lumbago with sciatica, left side (principal)
CPT/HCPCS: 72100; 73502

== ENCOUNTER 2021-10-30 09:52 | Outpatient (REF) | payer OTHER, MEDICAID, SELFPAY ==
[2021-10-30 12:53] LABS: Alanine Aminotransferase 29 U/L (0-31); Albumin Level 4.9 g/dL (3.5-5.0); Alkaline Phosphatase 76 U/L (39-117); Anion Gap 15 (12-20); Aspartate Amino Transferase 22 U/L (5-31); Bilirubin Total 0.4 mg/dL (0.0-1.0); Blood Urea Nitrogen 23 mg/dL (9-16); Calcium 10.2 mg/dL (8.4-10.2); Carbon Dioxide 28 mmol/L (22-29); Chloride 100 mmol/L (96-108); Estimated Glomerular Filt Rate > 60; Glucose Random 83 mg/dL (60-115); Potassium 4.1 mmol/L (3.3-5.1); Sodium 139 mmol/L (135-145); Total Protein 7.9 g/dL (6.5-8.0)
== END 2021-10-30 09:53 | disposition home or self-care (01) ==
LOC: HO.LAB 09:52
PROVIDERS: PCP Internal Medicine; Referring Provider Internal Medicine; Visit Provider Nurse Practitioner Family
DX: K59.01 Slow transit constipation (principal); K58.1 Irritable bowel syndrome with constipation; R14.0 Abdominal distension (gaseous); K21.9 Gastro-esophageal reflux disease without esophagitis; E11.9 Type 2 diabetes mellitus without complications; E78.5 Hyperlipidemia, unspecified; I10 Essential (primary) hypertension; D12.6 Benign neoplasm of colon, unspecified; E55.9 Vitamin D deficiency, unspecified; Z87.891 Personal history of nicotine dependence; Z88.0 Allergy status to penicillin
CPT/HCPCS: 36415; 80053

== ENCOUNTER 2021-11-20 06:56 | Outpatient (REF) | payer OTHER, MEDICAID, SELFPAY ==
--- NOTE | ~2021-11-20 | CT_ITS ---
EXAMINATION: CT ABDOMEN AND PELVIS WITH CONTRAST CLINICAL INFORMATION: Abdominal pain. COMPARISON: Ultrasound of 09/13/[address] scan of 03/24/2021. TECHNIQUE: Multidetector volumetric images were obtained from the superior aspect of the liver through the pubic symphysis following administration 85 mL of Omnipaque 350 intravenous contrast. Sagittal and coronal reformatted images were obtained on the technologist's workstation. Oral Contrast: Yes. This CT examination was performed using dose optimization techniques as appropriate, variously including the following: *Automated exposure control. *Adjustment of mA and/or kV according to patient size (this includes techniques or standardized protocols for targeted exams where dose is matched to indication/reason for exam; i.e. extremities or head). *Use of iterative reconstruction technique. DLP: 335 mGy-cm FINDINGS: LUNG BASES: Calcified granuloma is seen within the right lower lobe. Heart normal size. No pericardial effusion. No pleural effusion. LIVER, GALLBLADDER, AND BILIARY TREE: The liver is of normal shape and size. There is a question of some fatty infiltration with some diminished density. No focal hepatic lesion or biliary ductal dilatation is present. The common bile duct is prominent at 8 mm in diameter in the region of the pancreatic head. No calculi or pancreatic head mass appreciated. The gallbladder is unremarkable with no evidence of radiopaque gallstones, gallbladder wall thickening, or obvious pericholecystic inflammatory changes. PANCREAS: Unremarkable. SPLEEN: Unremarkable. ADRENAL GLANDS: Unremarkable. KIDNEYS AND URETERS: The kidneys are normal in size, shape, and attenuation. No hydronephrosis, hydroureter, or calculi seen. No perinephric stranding. There are a few bilateral subcentimeter low-density lesions seen within the kidneys likely representing cysts or angiomyolipomas. There is a duplicated right upper collecting system present. It appears that the ureters may fuse in the mid pelvis but difficult to tell for sure. BLADDER: Unremarkable. GASTROINTESTINAL TRACT: No dilated loops of large or small bowel are evident. No free air or free fluid. Mild sigmoid diverticulosis is present without evidence of acute diverticulitis. No pericolonic inflammatory change. The appendix is visualized and appears unremarkable. ABDOMINAL WALL: No significant hernia is appreciated. Status post previous infraumbilical midline abdominal surgery. LYMPH NODES: No lymphadenopathy appreciated. VASCULAR: Unremarkable. Visceral vessels patent. No abdominal aortic aneurysm. Minimal bilateral iliac artery calcified plaque present. Portal vein is patent. PELVIC VISCERA: Unremarkable. OSSEOUS STRUCTURES: No acute destructive bony lesions identified. There is degenerative disc disease seen at the L5-S1 level. CT/CT abdomen pelvis w con IMPRESSION: 1. Old granulomatous disease. 2. Probable some degree of fatty infiltration of the liver. 3. Prominence of the common bile duct to 8 mm in diameter in the region of the pancreatic head without pancreatic head mass or calculus identified. 4. Duplicated right renal upper collecting system with some bilateral subcentimeter low-density lesions likely representing either cysts or angiomyolipomas. 5. No evidence of obstructive uropathy or bowel obstruction.
[2021-11-20] MEDS: iohexoL 350 MG/ML 100 ML INFUS..BTL IV (09:48)
== END 2021-11-20 06:57 | disposition home or self-care (01) ==
LOC: HO.CT 06:56
PROVIDERS: PCP Internal Medicine; Visit Provider Nurse Practitioner Family
DX: K58.1 Irritable bowel syndrome with constipation (principal)
CPT/HCPCS: 74177; Q9967

== ENCOUNTER → 2021-11-27 08:40 | Outpatient (BNVA) | payer OTHER, MEDICAID, SELFPAY | PROVIDERS: PCP Internal Medicine; Visit Provider Nurse Practitioner Gerontology | DX: E11.65 Type 2 diabetes mellitus with hyperglycemia (principal); E11.42 Type 2 diabetes mellitus with diabetic polyneuropathy; E78.5 Hyperlipidemia, unspecified; E55.9 Vitamin D deficiency, unspecified; I10 Essential (primary) hypertension | CPT/HCPCS: 82947; 83036 ==

== ENCOUNTER 2021-11-29 10:47 | Outpatient (REF) | payer OTHER, MEDICAID, SELFPAY ==
--- NOTE | ~2021-11-29 | XR_ITS ---
EXAMINATION: KNEE X-RAY CLINICAL INFORMATION: Pain COMPARISON: Previous x-ray February 2021 TECHNIQUE: Standing AP view of both knees and lateral and sunrise view of the right knee FINDINGS: Right knee: Bone alignment is normal. No fracture or dislocation is seen. There are mild degenerative changes at the patellofemoral joint. There is no joint effusion. Standing AP view of the left knee is unremarkable. XR/XR knee RT 2V IMPRESSION: Mild arthritis at the right patellofemoral joint otherwise unremarkable exam.
--- NOTE | ~2021-11-29 | XR_ITS ---
EXAMINATION: KNEE X-RAY CLINICAL INFORMATION: Pain COMPARISON: Previous x-ray February 2021 TECHNIQUE: Standing AP view of both knees and lateral and sunrise view of the right knee FINDINGS: Right knee: Bone alignment is normal. No fracture or dislocation is seen. There are mild degenerative changes at the patellofemoral joint. There is no joint effusion. Standing AP view of the left knee is unremarkable. XR/XR knee standing BI IMPRESSION: Mild arthritis at the right patellofemoral joint otherwise unremarkable exam.
== END 2021-11-29 10:48 | disposition home or self-care (01) ==
LOC: HO.HOSX 10:47
PROVIDERS: PCP Internal Medicine; Visit Provider Physician Assistant
DX: M17.11 Unilateral primary osteoarthritis, right knee (principal); M25.562 Pain in left knee
CPT/HCPCS: 20610; 73560; 73565

== ENCOUNTER 2021-12-04 09:30 | Outpatient (REF) | payer OTHER, MEDICAID, SELFPAY ==
[2021-12-04 10:45] LABS: Alanine Aminotransferase 33 U/L (0-31); Albumin Level 4.6 g/dL (3.5-5.0); Alkaline Phosphatase 63 U/L (39-117); Anion Gap 17 (12-20); Aspartate Amino Transferase 27 U/L (5-31); Bilirubin Total 0.4 mg/dL (0.0-1.0); Blood Urea Nitrogen 19 mg/dL (9-16); Calcium 9.7 mg/dL (8.4-10.2); Carbon Dioxide 27 mmol/L (22-29); Chloride 101 mmol/L (96-108); Cholesterol 180 mg/dL; Estimated Glomerular Filt Rate > 60; Glucose Fasting 112 mg/dL (60-99); HDL Cholesterol 34 mg/dL; LDL Cholesterol Calculated 91 mg/dl; Potassium 4.7 mmol/L (3.3-5.1); Sodium 140 mmol/L (135-145); Total Protein 7.5 g/dL (6.5-8.0); Triglycerides 275 mg/dL
[2021-12-04 11:09] LABS: Free T4 (Free Thyroxine) 1.11 ng/dL (0.71-1.85); Thyroid Stimulating Hormone 9.61 uIU/mL (0.32-4.0); Vitamin D 25-OH Total 33.7 ng/mL (>30)
[2021-12-04 11:33] LABS: Creatinine Urine 91.27 mg/dL; Microalbumin Urine < 5.0 mg/L
[2021-12-06 06:37] LABS: Thyroglobulin 0.2 ng/mL; Thyroglobulin Antibodies <1 IU/mL (< or = 1)
== END 2021-12-04 09:31 | disposition home or self-care (01) ==
LOC: HO.LAB 09:30
PROVIDERS: Absent Provider Nurse Practitioner Gerontology; PCP Internal Medicine; Visit Provider Internal Medicine
DX: E55.9 Vitamin D deficiency, unspecified (principal); E89.0 Postprocedural hypothyroidism; E11.42 Type 2 diabetes mellitus with diabetic polyneuropathy
CPT/HCPCS: 36415; 80053; 80061; 82043; 82306; 84432; 84439; 84443; 86800

== ENCOUNTER → 2021-12-06 11:44 | Outpatient (BNVA) | payer OTHER, MEDICAID, SELFPAY | PROVIDERS: PCP Internal Medicine; Visit Provider Dietitian, Registered | DX: E11.42 Type 2 diabetes mellitus with diabetic polyneuropathy (principal) | CPT/HCPCS: 97803 ==

== ENCOUNTER → 2021-12-20 12:07 | Outpatient (BNVA) | payer OTHER, MEDICAID, SELFPAY | PROVIDERS: PCP Internal Medicine; Visit Provider Physician Assistant | DX: M17.11 Unilateral primary osteoarthritis, right knee (principal); E11.42 Type 2 diabetes mellitus with diabetic polyneuropathy; K59.01 Slow transit constipation; K21.9 Gastro-esophageal reflux disease without esophagitis; R10.9 Unspecified abdominal pain | CPT/HCPCS: 20610; J1020 ==

== ENCOUNTER 2021-12-25 11:08 | Outpatient (REF) | payer OTHER, MEDICAID, SELFPAY ==
--- NOTE | ~2021-12-25 | XR_ITS ---
EXAMINATION: XR CHEST CLINICAL INFORMATION: Preprocedure COMPARISON: Previous chest x-ray January 2021 TECHNIQUE: 2 views of the chest were obtained. FINDINGS: No significant abnormality is noted involving the heart, lungs, mediastinum, bony thorax or soft tissues. XR/XR chest 2V IMPRESSION: Unremarkable examination.
== END 2021-12-25 11:09 | disposition home or self-care (01) ==
LOC: HO.XRAY 11:08
PROVIDERS: PCP Internal Medicine; Visit Provider Registered Nurse
DX: Z01.818 Encounter for other preprocedural examination (principal)
CPT/HCPCS: 71046

== ENCOUNTER 2021-12-30 07:12 | Outpatient (REF) | payer OTHER, MEDICAID, SELFPAY ==
[2021-12-30 11:38] LABS: Free T4 (Free Thyroxine) 1.49 ng/dL (0.71-1.85); Thyroid Stimulating Hormone 0.98 uIU/mL (0.32-4.0); Vitamin D 25-OH Total 32.3 ng/mL (>30)
[2022-01-01 05:16] LABS: Thyroglobulin 0.2 ng/mL; Thyroglobulin Antibodies <1 IU/mL (< or = 1)
== END 2021-12-30 07:13 | disposition home or self-care (01) ==
LOC: HO.LAB 07:12
PROVIDERS: PCP Internal Medicine; Visit Provider Internal Medicine
DX: E89.0 Postprocedural hypothyroidism (principal); E55.9 Vitamin D deficiency, unspecified; C73 Malignant neoplasm of thyroid gland
CPT/HCPCS: 36415; 82306; 82378; 84432; 84439; 84443; 86800

== ENCOUNTER 2022-01-01 10:38 | Outpatient (REF) | payer OTHER, MEDICAID, SELFPAY ==
--- NOTE | ~2022-01-01 | MM_ITS ---
EXAMINATION: MM SCREENING DIGITAL BREAST TOMOSYNTHESIS, BILATERAL CLINICAL INFORMATION: Screening. Asymptomatic. The lifetime risk of breast cancer based on the Tyrer-Cuzick Model is 3%. COMPARISON: Mammography: 12/19/2020, 08/17/2019, 12/11/2017 TECHNIQUE: Digital breast tomosynthesis is performed in both the craniocaudal and mediolateral oblique views along with computer-aided detection (CAD). Synthesized 2D images are generated from the tomosynthesis. FINDINGS: There are scattered areas of fibroglandular density (ACR BI-RADS breast composition Category b). There are no significant masses, abnormal calcifications, or other abnormalities. There are 2 incidental small oil cysts anterior central 11:00 left breast better appreciated on tomography. There is no developing density or architectural abnormality. The axilla and skin contours are unremarkable. No significant changes. MM/MM tomosynthesis screening BI IMPRESSION: No mammographic evidence of malignancy. ASSESSMENT: BI-RADS 2: Benign RECOMMENDATION: Routine annual mammography screening. This patient's information was entered into a reminder system with a target due date for their next mammogram.
== END 2022-01-01 10:39 | disposition home or self-care (01) ==
LOC: HO.MAMMO 10:38
PROVIDERS: PCP Internal Medicine; Visit Provider Internal Medicine
DX: Z12.31 Encounter for screening mammogram for malignant neoplasm of breast (principal)
CPT/HCPCS: 77063; 77067

== ENCOUNTER 2022-01-20 15:03 | Outpatient (REF) | payer OTHER, MEDICAID, SELFPAY ==
--- NOTE | ~2022-01-20 | US_ITS ---
EXAMINATION: US SOFT TISSUE HEAD/NECK CLINICAL INFORMATION: Malignant neoplasm of thyroid gland. COMPARISON: Ultrasound soft tissue head and neck 11/08/2020. TECHNIQUE: Linear transducer grayscale and color Doppler examination of the neck lymph nodes. FINDINGS: On the right at level 1B the previously identified 0.6 x 0.4 x 0.5 cm lymph node is not seen on the current study. On the right at level 1B there is a 1.5 x 0.4 x 1.1 cm lymph node with a fatty hilum. The margins appear smooth and hypoechoic. No calcification is seen. Previously, this measured 1.7 x 0.4 x 1.2 cm. On the right at level 3 there is a 0.9 x 0.3 x 0.4 cm lymph node with a fatty hilum. No calcification is seen. This was not apparent previously. In the right supraclavicular region there is a 0.7 x 0.5 x 0.5 cm lymph node with a smooth fatty hilum. However, there is a hypoechoic area with in the fatty hilum which appears abnormal. The hypoechoic periphery of the lymph node appears small in diameter. This lymph node appears suspicious. This was not apparent previously. On the left at level 1B there is a 2.2 x 0.7 x 0.6 cm lymph node. This has a central fatty hilum. The hypoechoic periphery appears smooth without calcification. This was seen previously and appears similar. On the left at level 2 there is a 1.9 x 0.5 x 0.6 cm lymph node which appears abnormal. There is absence of the central fatty hilum. The lymph nodes predominantly hypoechoic. No calcification is seen. On the left at level 2 the previously identified 0.7 x 0.6 x 0.4 cm lymph node is not identified. US/US soft tiss head and/or neck IMPRESSION: 1. There is a suspicious 0.7 cm lymph node in the right supraclavicular region. 2. There is a suspicious 1.9 cm lymph node in level 2 on the left without a central fatty hilum. 3. Ultrasound-guided biopsy is recommended.
== END 2022-01-20 15:04 | disposition home or self-care (01) ==
LOC: HO.US 15:03
PROVIDERS: PCP Internal Medicine; Visit Provider Internal Medicine
DX: C73 Malignant neoplasm of thyroid gland (principal)
CPT/HCPCS: 76536

== ENCOUNTER → 2022-01-24 14:22 | Outpatient (BNVA) | payer OTHER, MEDICAID, SELFPAY | PROVIDERS: PCP Internal Medicine ==

== ENCOUNTER 2022-02-02 07:11 | Emergency (ER) | payer OTHER, MEDICAID, SELFPAY ==
--- NOTE | ~2022-02-02 | CT_ITS ---
EXAMINATION: CT ABDOMEN AND PELVIS WITH CONTRAST CLINICAL INFORMATION: Right lower quadrant pain COMPARISON: November 20, 2021 TECHNIQUE: Multidetector volumetric images were obtained from the superior aspect of the liver through the pubic symphysis following administration 85 mL of Omnipaque 350 intravenous contrast. Sagittal and coronal reformatted images were obtained on the technologist's workstation. Oral contrast: No This CT examination was performed using dose optimization techniques as appropriate, variously including the following: *Automated exposure control *Adjustment of mA and/or kV according to patient size (this includes techniques or standardized protocols for targeted exams where dose is matched to indication/reason for exam; i.e. extremities or head) *Use of iterative reconstruction technique DLP: 479 mGy-cm FINDINGS: LUNG BASES: Lingular atelectasis is present. No pleural or pericardial effusion. Right lower lobe calcified granuloma. LIVER, GALLBLADDER, AND BILIARY TREE: The liver is normal in size, shape, and attenuation. No focal hepatic lesion or biliary ductal dilatation is present. The gallbladder is unremarkable with no evidence of radiopaque gallstones, gallbladder wall thickening, or obvious pericholecystic inflammatory changes. PANCREAS: Unremarkable. No mass or peripancreatic inflammatory change. SPLEEN: Unremarkable. ADRENAL GLANDS: Unremarkable. KIDNEYS AND URETERS: Subcentimeter low-density lesion seen within the right kidney consistent with cyst. 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 No hydronephrosis, hydroureter, or calculi seen. No perinephric stranding. BLADDER: Unremarkable. GASTROINTESTINAL TRACT: No dilated loops of large or small bowel evident. No free air or free fluid. No pericolonic inflammatory changes seen. There is no evidence of acute appendicitis however there is an appendicolith measuring approximately 1.2 x 0.6 x 0.4 cm in size. No periappendiceal inflammatory change or enlargement. ABDOMINAL WALL: No significant hernia is appreciated. LYMPH NODES: No lymphadenopathy appreciated. VASCULAR: Portal vein patent. No abdominal aortic aneurysm. Visceral vessels appear patent. PELVIC VISCERA: Unremarkable. OSSEOUS STRUCTURES: No suspicious destructive bony lesions identified. Degenerative disc disease L5-S1. CT/CT abdomen pelvis w con IMPRESSION: No specific findings to explain patient's symptoms. No significant abnormality appreciated. Fleischner guidelines were followed.
[2022-02-02 07:16] VITALS: BP 145/85; PULSE 104; RESP 18; TEMP 36.4; O2SAT 97; BMI 26.9
[2022-02-02 08:20] VITALS: BP 143/79; PULSE 97; RESP 19; TEMP 36.9; O2SAT 96
--- NOTE | 2022-02-02 08:29 | ED_ITS ---
HPI - Abdominal Pain General Chief Complaint: Abdominal Pain Stated Complaint: r abd pain Time Seen by Provider: 02/02/22 08:24 History of Present Illness HPI narrative: Patient is a 61-year-old female presented today with having right-sided flank and right lower quadrant pain. Patient claims she has a history urinary tract infection in the past. There is no fever no chills. No coughing or congestion or upper respiratory symptoms. Has a history of diabetes, hypertension. Has a history of back pain had surgery done about a month ago. Patient denies any diaphoresis. Had also previous history of hysterectomy many many years ago. Denies any coughing congestion upper respiratory symptoms had normal bowel movement. Patient from home no nausea no vomiting. Related Data Home Medications Medication Instructions Recorded Confirmed hydrochlorothiazide 12.5 mg capsule 12.5 mg PO DAILY 10/10/20 12/30/21 losartan 50 mg tablet 50 mg PO BID 10/10/20 12/30/21 metoprolol succinate 50 mg 50 mg PO DAILY 02/06/21 12/30/21 tablet,extended release 24 hr amitriptyline 10 mg tablet 10 mg PO BEDTIME 05/22/21 12/30/21 loteprednol etabonate 0.5 % eye 1 drp OPHTHALMIC (EYE) QID 05/22/21 12/30/21 drops,suspension multivitamin 1 tab PO QAM 05/22/21 12/30/21 phenazopyridine 200 mg tablet 200 mg PO Q8H PRN 05/22/21 12/30/21 glipizide 5 mg tablet 5 mg PO DAILY 11/27/21 12/30/21 cyclosporine 0.05 % eye drops in a 1 drp OPHTHALMIC (EYE) BID 12/20/21 12/30/21 dropperette (Restasis) hyoscyamine sulfate 0.125 mg tablet 0.125 mg PO TID 12/20/21 12/30/21 tolterodine 2 mg capsule,extended 2 mg PO DAILY 12/20/21 12/30/21 release 24 hr tizanidine 2 mg tablet 2 mg PO TID PRN 01/24/22 Previous Rx's Medication Instructions Recorded hydrocodone 5 mg-acetaminophen 325 1 tab PO Q4-6H PRN #5 tab 01/24/21 mg tablet atorvastatin 40 mg tablet 80 mg PO BEDTIME #90 tab 04/08/21 methylcellulose (laxative) 500 mg 500 mg PO DAILY #30 tab 04/16/21 tablet (Citrucel) blood sugar diagnostic (FreeStyle #100 ea 07/09/21 Lite Strips) omega-3 fatty acids-fish oil 340 1 cap PO BEDTIME 30 Days #30 cap 07/23/21 mg-1,000 mg capsule cyclobenzaprine 5 mg tablet 5 mg PO TID PRN #8 tab 07/25/21 lidocaine 5 % topical patch 1 patch TOPICAL DAILY #15 ea 07/25/21 (Lidoderm) docusate sodium 100 mg capsule 100 mg PO BEDTIME #30 cap 10/14/21 magnesium citrate (Citrate of 150 ml PO DAILY PRN #296 ml 10/30/21 Magnesia) sennosides 8.6 mg tablet (Natural 17.2 mg PO BEDTIME #60 tab 11/19/21 Senna Laxative) linagliptin 5 mg tablet (Tradjenta) 5 mg PO DAILY #90 tab 11/27/21 metformin 500 mg tablet,extended 1,000 mg PO BID 90 Days #360 tab 11/27/21 release 24 hr linaclotide 290 mcg capsule 290 mcg PO QAM #90 cap 12/20/21 (Linzess) tijqzm-vewblblu-jvqzikw 1 cap PO QID #120 cap 12/20/21 12,000-38,000-60,000 unit capsule,delayed rel (Creon) pantoprazole 40 mg tablet,delayed 40 mg PO DAILY #90 tab 12/20/21 release sucralfate 100 mg/mL oral 10 ml PO BEDTIME #400 ml 12/20/21 suspension levothyroxine 137 mcg tablet 137 mcg PO DAILY 30 Days #30 tab 12/30/21 phenazopyridine 100 mg tablet 100 mg PO TID PRN #6 tab 01/24/22 (Pyridium) Allergies Allergy/AdvReac Type Severity Reaction Status Date / Time Penicillins [PENICILLINS] Allergy Unknown HIVES Verified 02/02/22 07:16 Review of Systems Review of Systems Positive back Surgery about a month ago No fever no chills No nausea no vomiting Positive right-sided abdominal pain Yes all other systems are reviewed and are negative PMFSH Past Medical History Attestation statement: The following information was validated with the patient. Medical History Blood in urine Constipation by delayed colonic transit Diabetes DM2 (diabetes mellitus, type 2) Dyslipidemia Gastritis Hematuria Hypertension Post-surgical hypothyroidism Primary thyroid cancer Tubular adenoma of colon Type 2 diabetes mellitus with polyneuropathy Vitamin D deficiency Surgical History History of esophagogastroduodenoscopy (EGD) Hx of section Hx of colonoscopy Hx of hernia repair Hx of hysterectomy Hx of thyroidectomy Family History Family History Father Stroke Heart attack Mother Diabetes mellitus Family/Other Family history of cancer Social History Social History Household Members: Spouse, Children and Other Alcohol intake: never Patient Tobacco Use Status: Former Tobacco user Advance Directives: No Advance Directives Information Provided: Yes Physical Exam ED Vital Signs: Vital Signs - 24 hr 02/02/22 07:16 02/02/22 08:20 02/02/22 10:58 Temperature 97.5 F 98.4 F 98.2 F Pulse Rate 104 H 97 Respiratory Rate 18 19 Blood Pressure 145/85 H 143/79 H Pulse Oximetry 97 96 98 BMI result Body Mass Index 26.9 Appearance: Alert. Oriented X3. No acute distress. Eyes: Pupils equal, round and reactive to light. ENT: Pharynx normal. Neck: Normal inspection. Neck supple. No lymph nodes noted. No crepitus CVS: Normal heart rate and rhythm. Pulses normal. Normal S1 and S2 Respiratory: No respiratory distress. Breath sounds normal. No Wheezing. No rales Abdomen: Soft and nontender. No rigidity. No distention. good BS x4 Skin: Skin warm and dry. Normal skin color. Normal skin turgor. Extremities: No lower extremity edema. Neurovascular intact to all extremities. No Lacerations. No Rash Neuro: Oriented X 3. No motor deficit. No sensory deficit. Moving all extermities. No slurred speech MDM - Abdominal Pain MDM Narrative Medical decision making narrative: CT scan of the abdomen pelvis showed no evidence of obstruction, abscess perforation. Patient's white count was normal. LFTs are normal. Electrolytes unremarkable. Urine showed no signs of infection. LFTs are normal. Will discharge patient home. Question pain to the abdomen. In stable condition. Lab Data Result diagrams: 02/02/22 08:45 02/02/22 08:45 Labs: Lab Results 02/02/22 02/02/22 02/02/22 Range/Units 08:45 08:45 08:45 WBC 6.2 (4.8-10.8) X10*3/uL RBC 4.13 L (4.20-5.50) X10*6/uL Hgb 11.0 L (12.0-16.0) g/dl Hct 34.6 L (37.0-47.0) % MCV 83.8 (80.0-98.0) fL MCH 26.6 L (27.0-33.0) pg MCHC 31.8 (31.0-35.0) g/dl RDW 13.2 (11.0-16.0) % Plt Count 257 (160-400) X10*3/uL MPV 10.4 (9.4-12.3) fL Immature Gran % (Auto) 0.3 (0.0-0.4) % Neut % (Auto) 69.0 (45-73) % Lymph % (Auto) 18.5 L (20-40) % [place] % (Auto) 9.6 (2-11) % Eos % (Auto) 1.8 (0-4) % Baso % (Auto) 0.8 (0-2) % Lymph # (Auto) 1.2 (1.2-4.9) X10*3/uL [place] # (Auto) 0.6 (0.1-1.2) X10*3/uL Eos # (Auto) 0.1 (0.0-0.4) X10*3/uL Baso # (Auto) 0.1 (0.0-0.2) X10*3/uL Abs Immat Gran (auto) 0.02 (0.00-0.03) X10*3/uL Absolute Neuts (auto) 4.3 (2.0-8.3) x10*3/uL Absolute Nucleated RBC 0.000 (0.0-0.012) X10*3/uL Nucleated RBC % (auto) 0.0 (0.0-0.2) /100WBC Sodium 139 (135-145) mmol/L Potassium 4.1 (3.3-5.1) mmol/L Chloride 103 (96-108) mmol/L Carbon Dioxide 26 (22-29) mmol/L Anion Gap 14 (12-20) BUN 14 (9-16) mg/dL Creatinine 0.74 (0.5-1.4) mg/dL Estim Creat Clear Calc 78.1 Estimated GFR > 60 Random Glucose 144 H (60-115) mg/dL Calcium 9.4 (8.4-10.2) mg/dL Total Bilirubin 0.4 (0.0-1.0) mg/dL Direct Bilirubin 0.2 (0.0-0.5) mg/dL AST 17 (5-31) U/L ALT 22 (0-31) U/L Alkaline Phosphatase 69 (39-117) U/L Total Protein 7.2 (6.5-8.0) g/dL Albumin 4.4 (3.5-5.0) g/dL Lipase 53 (8-78) U/L Urine Color YELLOW Urine Appearance CLEAR Urine pH 5.5 (5.0-8.0) Ur Specific [place] <= 1.005 (1.005-1.025) Urine Protein NEG (NEG-TRACE) MG/DL Urine Glucose (UA) NEG (NEG) MG/DL Urine Ketones NEG (NEG) MG/DL Urine Blood TRACE (NEG) Urine Nitrite NEG (NEG) Ur Leukocyte Esterase NEG (NEG) Urine RBC 1-4 (0) /HPF Urine WBC 0 (0-4) /HPF Ur Squamous Epith Cells 2+ /LPF Urine Bacteria NONE /LPF Discharge Plan Discharge Clinical Impression: Abdominal pain Patient Disposition: Home, Self-Care Instructions: Abdominal Pain (ED) Prescriptions: No Action atorvastatin 40 mg tablet 80 mg PO BEDTIME Qty: 90 1RF (DME) FreeStyle Lite Strips Strip See Rx Instructions .ROUTE .MEDSUPPLY Qty: 100 10RF Rx Instructions: Test blood glucose twice per day omega-3 fatty acids-fish oil 340-1,000 mg capsule 1 cap PO BEDTIME 30 Days Qty: 30 6RF docusate sodium 100 mg capsule 100 mg PO BEDTIME Qty: 30 3RF sennosides [Natural Senna Laxative] 8.6 mg tablet 17.2 mg PO BEDTIME Qty: 60 1RF Rx Instructions: jumana chaitanya o dos tabletas por la noche kylee sea necesario para el estrenimiento levothyroxine 137 mcg tablet 137 mcg PO DAILY 30 Days Qty: 30 3RF hydrocodone-acetaminophen 5-325 mg tablet 1 tab PO Q4-6H PRN (Reason: pain) Qty: 5 0RF cyclobenzaprine 5 mg tablet 5 mg PO TID PRN (Reason: muscle spasm) Qty: 8 0RF lidocaine [Lidoderm] 5 % adhesive patch,medicated 1 patch topical DAILY Qty: 15 0RF Rx Instructions: leave on most painful area for up to 12 hrs metoprolol succinate 50 mg tablet extended release 24 hr 50 mg PO DAILY 0RF loteprednol etabonate 0.5 % drops,suspension 1 drp ophthalmic (eye) QID 0RF amitriptyline 10 mg tablet 10 mg PO BEDTIME 0RF multivitamin Tablet 1 tab PO QAM 0RF phenazopyridine 200 mg tablet 200 mg PO Q8H PRN0RF hydrochlorothiazide 12.5 mg capsule 12.5 mg PO DAILY 0RF losartan 50 mg tablet 50 mg PO BID 0RF Citrucel 500 mg tablet 500 mg PO DAILY Qty: 30 2RF Rx Instructions: jumana un comprimido cada ma?claudio con un vaso de agua [place]o magnesium citrate [Citrate of Magnesia] Solution 150 ml PO DAILY PRN (Reason: constipation) Qty: 296 5RF tolterodine 2 mg capsule,extended release 24hr 2 mg PO DAILY 0RF Restasis 0.05 % dropperette 1 drp ophthalmic (eye) BID 0RF hyoscyamine sulfate 0.125 mg tablet 0.125 mg PO TID 0RF sucralfate 100 mg/mL suspension 10 ml PO BEDTIME Qty: 400 3RF Linzess 290 mcg capsule 290 mcg PO QAM Qty: 90 4RF pantoprazole 40 mg tablet,delayed release (DR/EC) 40 mg PO DAILY Qty: 90 2RF Rx Instructions: take one tablet half an hour before breakfast Creon 12,000-38,000 -60,000 unit capsule,delayed release(DR/EC) 1 cap PO QID Qty: 120 3RF Rx Instructions: administer with meals and/or snacks tizanidine 2 mg tablet 2 mg PO TID PRN (Reason: muscle spasm) 0RF phenazopyridine [Pyridium] 100 mg tablet 100 mg PO TID PRN (Reason: pain) Qty: 6 0RF glipizide 5 mg tablet 5 mg PO DAILY 0RF Tradjenta 5 mg tablet 5 mg PO DAILY Qty: 90 3RF metformin 500 mg tablet extended release 24 hr 1,000 mg PO BID 90 Days Qty: 360 1RF Referrals: Tamie Johnson MD [Primary Care Provider] - 2 days Print Language: Taiwanese
[2022-02-02 08:50] LABS: MANUAL DIFF FLAG NO
[2022-02-02 08:53] LABS: Basophils Absolute Auto 0.1 X10*3/uL (0.0-0.2); Basophils Percent Auto 0.8 % (0-2); Eosinophils Absolute Auto 0.1 X10*3/uL (0.0-0.4); Eosinophils Percent Auto 1.8 % (0-4); Hematocrit 34.6 % (37.0-47.0); Imm Gran Abs Auto 0.02 X10*3/uL (0.00-0.03); Imm Gran Pct Auto 0.3 % (0.0-0.4); Lymphocytes Absolute Auto 1.2 X10*3/uL (1.2-4.9); Lymphocytes Percent Auto 18.5 % (20-40); Mean Corpuscular HGB Conc 31.8 g/dl (31.0-35.0); Mean Corpuscular Hemoglobin 26.6 pg (27.0-33.0); Mean Corpuscular Volume 83.8 fL (80.0-98.0); Mean Platelet Volume 10.4 fL (9.4-12.3); Monocytes Absolute Auto 0.6 X10*3/uL (0.1-1.2); Monocytes Percent Auto 9.6 % (2-11); Neutrophils Absolute Auto 4.3 x10*3/uL (2.0-8.3); Platelet Count 257 X10*3/uL (160-400); Red Blood Count 4.13 X10*6/uL (4.20-5.50); Red Cell Distribution Width 13.2 % (11.0-16.0); White Blood Count 6.2 X10*3/uL (4.8-10.8)
[2022-02-02 08:54] LABS: Appearance Urine CLEAR; Color Urine YELLOW; Glucose Urine UA NEG (NEG); Leukocyte Esterase Urine NEG (NEG); Nitrite Urine NEG (NEG); PH 5.5 (5.0-8.0); Specific Gravity - Urine <= 1.005 (1.005-1.025); UACC Culture Trigger NO; Urine Blood TRACE (NEG); Urine Ketones NEG (NEG); Urine Protein NEG (NEG-TRACE)
[2022-02-02] MEDS: Ketorolac Tromethamine 30 MG/ML VIAL IVPUSH (08:56)
[2022-02-02] MEDS: ondansetron HCL 4 MG/2 ML VIAL IVPUSH (08:57)
[2022-02-02] MEDS: 0.9 % Sodium Chloride 1,000 ML 999 ML IV (09:01)
[2022-02-02 09:10] LABS: Alanine Aminotransferase 22 U/L (0-31); Albumin Level 4.4 g/dL (3.5-5.0); Alkaline Phosphatase 69 U/L (39-117); Anion Gap 14 (12-20); Aspartate Amino Transferase 17 U/L (5-31); Bilirubin Direct 0.2 mg/dL (0.0-0.5); Bilirubin Total 0.4 mg/dL (0.0-1.0); Blood Urea Nitrogen 14 mg/dL (9-16); Calcium 9.4 mg/dL (8.4-10.2); Carbon Dioxide 26 mmol/L (22-29); Chloride 103 mmol/L (96-108); Creatinine Clr Calc Pharmacy 78.1; Estimated Glomerular Filt Rate > 60; Glucose Random 144 mg/dL (60-115); Lipase 53 U/L (8-78); Potassium 4.1 mmol/L (3.3-5.1); Sodium 139 mmol/L (135-145); Total Protein 7.2 g/dL (6.5-8.0)
[2022-02-02 09:11] LABS: WBC Urine 0 /HPF (0-4)
[2022-02-02 09:12] LABS: Squamous Epithelial Cell Urine 2+ /LPF
[2022-02-02] MEDS: iohexoL 350 MG/ML 100 ML INFUS..BTL IV (09:48)
[2022-02-02 10:58] VITALS: TEMP 36.8; O2SAT 98
[2022-02-02] MEDS: HYDROmorphone HCl 0.5 MG/0.5 ML SYRINGE IVPUSH (11:21)
== END 2022-02-02 11:46 | disposition home or self-care (01) ==
PROVIDERS: Emergency Provider Emergency Medicine Emergency Medical Services; PCP Internal Medicine
DX: R10.11 Right upper quadrant pain (principal); M54.50 Low back pain, unspecified; Z87.891 Personal history of nicotine dependence; Z79.899 Other long term (current) drug therapy
CPT/HCPCS: 36415; 74177; 80048; 80076; 81001; 83690; 85025; 99284; J1170; J1885; J2405; Q9967

== ENCOUNTER → 2022-02-03 09:40 | Outpatient (BNVA) | payer OTHER, MEDICAID, SELFPAY | PROVIDERS: PCP Internal Medicine; Visit Provider Internal Medicine | DX: Z13.89 Encounter for screening for other disorder (principal) ==

== ENCOUNTER → 2022-03-12 09:13 | Outpatient (BNVA) | payer OTHER, MEDICAID, SELFPAY | PROVIDERS: PCP Internal Medicine; Visit Provider Nurse Practitioner Gerontology | DX: E11.42 Type 2 diabetes mellitus with diabetic polyneuropathy (principal); E78.5 Hyperlipidemia, unspecified; I10 Essential (primary) hypertension; Z79.84 Long term (current) use of oral hypoglycemic drugs | CPT/HCPCS: 82947; 83036 ==

== ENCOUNTER → 2022-03-21 13:05 | Outpatient (BNVA) | payer OTHER, MEDICAID, SELFPAY | PROVIDERS: PCP Internal Medicine; Referring Provider Internal Medicine; Visit Provider Nurse Practitioner Family | DX: R19.7 Diarrhea, unspecified (principal) ==

== ENCOUNTER 2022-03-24 10:02 | Outpatient (REF) | payer OTHER, MEDICAID, SELFPAY ==
[2022-03-24 11:41] LABS: Lipase 60 U/L (8-78)
[2022-03-24 12:05] LABS: Thyroid Stimulating Hormone 0.02 uIU/mL (0.32-4.0)
[2022-03-24 12:06] LABS: Free T4 (Free Thyroxine) 1.83 ng/dL (0.71-1.85)
[2022-03-24 12:26] LABS: Folate 16.6 ng/mL (> or = 4.0); Vitamin B12 1277 pg/mL (200-900)
[2022-03-25 21:52] LABS: Thyroglobulin 0.1 ng/mL; Thyroglobulin Antibodies <1 IU/mL (< or = 1)
== END 2022-03-24 10:03 | disposition home or self-care (01) ==
LOC: HO.LAB 10:02
PROVIDERS: Absent Provider Internal Medicine; PCP Internal Medicine; Visit Provider Nurse Practitioner Family
DX: R10.9 Unspecified abdominal pain (principal); R19.7 Diarrhea, unspecified; E89.0 Postprocedural hypothyroidism
CPT/HCPCS: 36415; 82607; 82746; 83690; 84432; 84439; 84443; 86800

== ENCOUNTER 2022-03-26 10:57 | Outpatient (REF) | payer OTHER, MEDICAID, SELFPAY | END 2022-03-26 10:58 | disposition home or self-care (01) | LOC: HO.LNP 10:57 | PROVIDERS: Visit Provider Nurse Practitioner Family | DX: R19.7 Diarrhea, unspecified (principal) | CPT/HCPCS: 87045; 87046; 87177; 87209 ==

== ENCOUNTER → 2022-03-28 10:13 | Outpatient (BNVA) | payer OTHER, MEDICAID, SELFPAY | PROVIDERS: PCP Internal Medicine; Visit Provider Physician Assistant | DX: Z13.89 Encounter for screening for other disorder (principal) ==

== ENCOUNTER 2022-03-28 10:22 | Outpatient (REF) | payer OTHER, MEDICAID, SELFPAY ==
[2022-03-28 12:03] LABS: CDiff Gene PCR NEGATIVE (Negative)
[2022-04-04 13:19] LABS: Pancreatic Elastase-1 >500 mcg/g
== END 2022-03-28 10:23 | disposition home or self-care (01) ==
LOC: HO.LNP 10:22
PROVIDERS: Visit Provider Nurse Practitioner Family
DX: R10.9 Unspecified abdominal pain (principal); K21.9 Gastro-esophageal reflux disease without esophagitis; R19.7 Diarrhea, unspecified; M17.11 Unilateral primary osteoarthritis, right knee
CPT/HCPCS: 82656; 87338; 87493

== ENCOUNTER → 2022-04-03 09:38 | Outpatient (BNVA) | payer OTHER, MEDICAID, SELFPAY | PROVIDERS: PCP Internal Medicine; Visit Provider Orthopaedic Surgery | DX: M17.11 Unilateral primary osteoarthritis, right knee (principal); E11.9 Type 2 diabetes mellitus without complications | CPT/HCPCS: 20610; J1100 ==

== ENCOUNTER 2022-04-07 15:38 | Outpatient (REF) | payer OTHER, MEDICAID, SELFPAY ==
--- NOTE | ~2022-04-07 | CT_ITS ---
EXAMINATION: CT LUMBAR SPINE WITHOUT CONTRAST CLINICAL INFORMATION: Lesion near L5. COMPARISON: Abdominal CT 02/02/2022. Lumbar spine MRI 11/13/2021. TECHNIQUE: Multidetector CT acquisition of the lumbar spine is obtained without contrast. Multiplanar reformats are acquired and utilized for image interpretation. This CT examination was performed using dose optimization techniques as appropriate, variously including the following: *Automated exposure control *Adjustment of mA and/or kV according to patient size (this includes techniques or standardized protocols for targeted exams where dose is matched to indication/reason for exam; i.e. extremities or head) *Use of iterative reconstruction technique FINDINGS: There are 5 nonrib-bearing lumbar-type vertebral bodies. Lumbar alignment is normal. Chronic inferior endplate Schmorl's node at L5 again noted. Mild chronic vertebral body height loss at L5 is stable. The remaining lumbar vertebral body heights are maintained. There is mild disc volume loss and there is vacuum phenomenon at L5-S1. The remaining disc volumes are preserved. There are no acute fractures and there are no acute subluxations. No suspicious intraosseous lesions are identified. There is aortoiliac atherosclerotic calcification. The L1-L2, L2-L3, and L3-L4 disc contours remain within normal limits. No central canal stenosis and no foraminal stenosis at these levels. L4-L5: There is likely a stable shallow left paracentral disc protrusion resulting in posterior deflection of the traversing left L5 nerve root within the left subarticular zone. No significant central canal stenosis and no foraminal stenosis. L5-S1: Postoperative changes following left hemilaminectomy. There is abnormal soft tissue within the left epidural space inseparable from the traversing left S1 nerve root that could reflect recurrent/residual disc herniation and/or scar tissue that would be better assessed with a lumbar spine MRI with and without IV contrast. CT/CT lumbar spine wo con IMPRESSION: - At L5-S1, there are postoperative changes following left hemilaminectomy. There is abnormal soft tissue within the left epidural space at L5-S1 inseparable from the traversing left S1 nerve root that could reflect recurrent/residual disc herniation and/or scar tissue that would be better assessed with a lumbar spine MRI with and without IV contrast. - At L4-L5, there is likely a stable shallow left paracentral disc protrusion resulting in posterior deflection of the traversing left L5 nerve root within the left subarticular zone.
== END 2022-04-07 15:39 | disposition home or self-care (01) ==
LOC: HO.CT 15:38
PROVIDERS: PCP Internal Medicine; Visit Provider Internal Medicine
DX: M89.8X8 Other specified disorders of bone, other site (principal)
CPT/HCPCS: 72131

== ENCOUNTER 2022-04-09 08:27 | Outpatient (REF) | payer OTHER, MEDICAID, SELFPAY ==
--- NOTE | ~2022-04-09 | US_ITS ---
PROCEDURE: ULTRASOUND-GUIDED LYMPH NODE BIOPSY CLINICAL INFORMATION: Thyroid cancer with complete thyroidectomy. Abnormal-appearing left level II cervical lymph node. COMPARISON: Ultrasound neck 01/20/2022. TECHNIQUE: Following explaining left neck lymph node biopsy procedure, benefits and risk, a written consent was obtained. Patient was placed supine on ultrasound stretcher with head slightly rotated to the right with preliminary ultrasound imaging obtained through the left neck. A level II lymph node was identified and marked on the skin with a marker. The left neck was then cleaned with 2% chlorhexidine solution. Sterile drape was placed over the cleaned area. 1% lidocaine was injected. A 25-gauge needle attached to syringe was advanced through the skin into the lymph node under sterile ultrasound guidance and aspiration biopsy was obtained. Three passes were performed without immediate compilations. Preliminary results revealed lymphocytes confirming needle position in the lymph node. Simple Band-Aid applied at the puncture site. Patient tolerated procedure extremely well. FINDINGS: On preliminary ultrasound there is a level II lymph node visualized measuring 1.7 cm in length. Ultrasound-guided three-pass lymph node aspiration biopsy was performed. US/US guided fine needle asp IMPRESSION: Successful ultrasound-guided left level II lymph node aspiration biopsy performed.
[2022-04-09] MEDS: Lidocaine HCl 1 % MPF 5 ML VIAL SUBCUT (10:22)
[2022-04-15 10:06] LABS: LLE Interpretation QNS
[2022-04-16 11:51] LABS: Thyroglobulin, Fine Needle Asp <0.1 ng/mL
== END 2022-04-09 08:28 | disposition home or self-care (01) ==
LOC: HO.US 08:27
PROVIDERS: Radiology Diagnostic Radiology; Visit Provider Internal Medicine
DX: C73 Malignant neoplasm of thyroid gland (principal)
CPT/HCPCS: 10005; 36415; 84432; 88172; 88173; 88184; 88185; 88305

== ENCOUNTER → 2022-04-11 11:34 | Outpatient (BNVA) | payer OTHER, MEDICAID, SELFPAY | PROVIDERS: Visit Provider Registered Nurse Diabetes Educator | DX: E11.42 Type 2 diabetes mellitus with diabetic polyneuropathy (principal) ==

== ENCOUNTER 2022-04-17 15:31 | Outpatient (REF) | payer OTHER, MEDICAID, SELFPAY ==
--- NOTE | ~2022-04-17 | US_ITS ---
EXAMINATION: US RETROPERITONEAL LIMITED (RENAL ONLY) CLINICAL INFORMATION: Hematuria, unspecified. COMPARISON: CT abdomen and pelvis 02/02/2022. Ultrasound abdomen complete 09/13/2021. Ultrasound bladder 04/17/2021. TECHNIQUE: Real-time imaging of the kidneys. FINDINGS: RIGHT KIDNEY: 13.1 x 5.7 x 4.8 cm (SAG x AP x TRV). The kidney is normal in size, contour, and echogenicity. Renal cortical thickness is normal. No calculi or focal parenchymal lesions. No hydronephrosis. Duplicated collecting system. LEFT KIDNEY: 11.0 x 6.6 x 4.8 cm (SAG x AP x TRV). The kidney is normal in size, contour, and echogenicity. Renal cortical thickness is normal. No calculi or focal parenchymal lesions. No hydronephrosis. There is a 1.4 cm soft tissue lesion adjacent to the upper pole which likely represents an ectopic splenic tissue adjacent to the pancreatic tail when correlating with CT images dated back from 2015. US/US renal BI IMPRESSION: No acute sonographic abnormalities.
== END 2022-04-17 15:32 | disposition home or self-care (01) ==
LOC: HO.US 15:31
PROVIDERS: PCP Internal Medicine
DX: R31.9 Hematuria, unspecified (principal)
CPT/HCPCS: 76775

== ENCOUNTER → 2022-04-21 13:49 | Outpatient (BNVA) | payer OTHER, MEDICAID, SELFPAY | DX: Z13.89 Encounter for screening for other disorder (principal) ==

== ENCOUNTER 2022-04-23 07:06 | Outpatient (REF) | payer OTHER, MEDICAID, SELFPAY ==
[2022-04-23 07:40] LABS: Urine Cytology See Pathology rpt
== END 2022-04-23 07:07 | disposition home or self-care (01) ==
LOC: HO.LAB 07:06
PROVIDERS: PCP Internal Medicine
DX: R31.9 Hematuria, unspecified (principal)
CPT/HCPCS: 88112

== ENCOUNTER 2022-05-01 09:24 | Outpatient (REF) | payer OTHER, MEDICAID, SELFPAY ==
[2022-05-02 08:32] LABS: BV Int Neg Control Negative (Negative); BV Int Pos Control Positive (Positive)
== END 2022-05-01 09:25 | disposition home or self-care (01) ==
LOC: HO.LAB 09:24
PROVIDERS: Visit Provider Advanced Practice Midwife
DX: Z11.3 Encounter for screening for infections with a predominantly sexual mode of transmission (principal); N94.10 Unspecified dyspareunia
CPT/HCPCS: 87480; 87510; 87660

== ENCOUNTER 2022-05-01 16:18 | Outpatient (REF) | payer OTHER, MEDICAID, SELFPAY ==
--- NOTE | ~2022-05-01 | MR_ITS ---
EXAMINATION: MR LUMBAR SPINE WITHOUT AND WITH CONTRAST CLINICAL INFORMATION: 61-year-old with self-reported low back pain radiating to the right leg with left foot numbness. COMPARISON: 02/05/2022 CT lumbar spine, 11/13/2021 MRI. TECHNIQUE: MRI of the lumbar spine was obtained using routine sequences with and without contrast. Intravenous contrast: Gadavist 7 mL FINDINGS: Coronal Alignment: Normal Sagittal Alignment: Normal Lumbosacral Junction: Normal. Five [id number] lumbar-type vertebral bodies. Vertebral Bodies: Vertebral body heights are well maintained. Disc Spaces and Endplates: Moderate disc volume loss at L5-S1 is noted, with central Schmorl's nodes, with disc desiccation similar to previous MRI. Remaining lumbar intervertebral discs demonstrate normal height, with minor multilevel disc desiccation without significant spondylosis. Spinal Canal: No abnormal developmental findings. Bone Marrow: Minor type I degenerative marrow signal changes seen along the endplates at L5-S1 with associated endplate enhancement consistent with this. Otherwise bone marrow signal intensity appears within normal limits. Conus Medullaris: Terminates at L1-L2. Morphology and signal is normal. No abnormal enhancement. Intradural Nerve Roots: Within normal limits. No abnormal intradural enhancement. L5-S1: Note is made of a central to left subarticular recurrent disc herniation with marginal enhancing soft tissue which may reflect granulation tissue, measuring 6 mm in AP dimension with maximum transverse diameter of 8 mm, with mass effect on the left ventral thecal sac and traversing left S1 nerve root in the subarticular zone. Left hemilaminectomy changes are also noted with enhancing soft tissue in the left side of the canal adjacent to the traversing left S1 nerve root and left side of the thecal sac consistent with postoperative changes. Minor right-sided and aqcw-[id number] left-sided facet arthrosis is noted. No significant neural foraminal stenosis and no significant central spinal canal stenosis. Note that the above-described disc herniation contacts the right S1 nerve root sleeve as well without nerve root compression or displacement. L4-L5: Small central to left central disc protrusion as noted on previous study with minimal indentation of the ventral thecal sac with associated enhancing annular fissuring at this level. Mild facet arthrosis bilaterally without significant canal or neuroforaminal stenosis. L3-L4: Normal disc contour. No facet arthrosis, canal or neuroforaminal stenosis. L2-L3: Normal disc contour. No facet arthrosis, canal or neuroforaminal stenosis. L1-L2: Normal disc contour. No facet arthrosis, canal or neuroforaminal stenosis. Paraspinal/Retroperitoneal: The paravertebral soft tissues appear grossly unremarkable. MR/MR lumbar spine wo/w con IMPRESSION: 1. Degenerative and postoperative changes at L5-S1 as described above with a left central to left subarticular recurrent disc herniation impinging on the traversing left S1 nerve root and slightly contacting the traversing right S1 nerve root sleeve with mild encroachment on the left ventral dural sac as well. 2. Stable small central to left paramedian disc protrusion at L4-L5 with enhancing annular fissuring.
== END 2022-05-01 16:19 | disposition home or self-care (01) ==
LOC: HO.MRI 16:18
PROVIDERS: Visit Provider Internal Medicine
DX: M89.8X8 Other specified disorders of bone, other site (principal); R10.2 Pelvic and perineal pain; G89.29 Other chronic pain; R30.0 Dysuria; N94.10 Unspecified dyspareunia; N95.2 Postmenopausal atrophic vaginitis
CPT/HCPCS: 72158; 81003; A9585

== ENCOUNTER → 2022-05-07 08:14 | Outpatient (REF) | payer OTHER, MEDICAID, SELFPAY ==
--- NOTE | ~2022-05-07 | NM_ITS ---
EXAMINATION: BILIARY TRACT IMAGING STUDY CLINICAL INFORMATION: Diarrhea. COMPARISON: CT abdomen/pelvis 02/02/2022. TECHNIQUE: Serial gamma scintillation camera images were obtained over the abdomen for a total observation period of 60 minutes following the intravenous administration of 99 mCi Tc-99m mebrofenin. FINDINGS: There is good concentration of activity in the liver by 5 minutes post injection. Biliary activity is visualized by 10 minutes. The gallbladder is well visualized by 15-20 minutes. Small bowel is well visualized by 60 to 65 minutes. At 60 minutes post radiopharmaceutical injection, the patient ingested 8 ounces of Ensure Plus and an additional 6 minutes of images were obtained. There is good emptying of the gallbladder. By the end of the study there is good clearance of activity from the liver and visualization of diffuse small bowel activity. The calculated gallbladder ejection fraction is 59% (normal gallbladder ejection fraction is greater than 35%). NM/NM hepatobiliary wo pharm IMPRESSION: Visualization of the gallbladder is evidence of a patent cystic duct and strong evidence against the diagnosis of acute cholecystitis. The common bile duct is patent. Gallbladder emptying and ejection fraction are normal. Liver function appears normal.
== END ==
LOC: HO.NUCMED 08:14
PROVIDERS: Visit Provider Nurse Practitioner Family
DX: R19.7 Diarrhea, unspecified (principal)
CPT/HCPCS: 78226; A9537

== ENCOUNTER → 2022-05-16 09:39 | Outpatient (BNVA) | payer OTHER, MEDICAID, SELFPAY | PROVIDERS: PCP Internal Medicine; Visit Provider Orthopaedic Surgery | DX: M17.11 Unilateral primary osteoarthritis, right knee (principal) | CPT/HCPCS: 20610; J1100 ==

== ENCOUNTER → 2022-06-05 09:41 | Outpatient (BNVA) | payer OTHER, MEDICAID, SELFPAY | PROVIDERS: PCP Internal Medicine; Visit Provider Dietitian, Registered | DX: E11.42 Type 2 diabetes mellitus with diabetic polyneuropathy (principal) | CPT/HCPCS: 97803 ==

== ENCOUNTER 2022-06-10 06:11 | Outpatient (REF) | payer OTHER, MEDICAID, SELFPAY ==
--- NOTE | ~2022-06-10 | FL_ITS ---
EXAMINATION: XR FLUOROSCOPY WITH IMAGES CLINICAL INFORMATION: Right knee pain COMPARISON: None. TECHNIQUE: Fluoroscopy performed by Dr. Jcarlos Gee. Fluoroscopy time: 0.2 minutes. Cumulative Dose: 1.56 mGy. DAP: 0.425 Gy-cm2. Images: 2. FINDINGS: There are 2 radiopaque needles projecting over the distal femoral metadiaphyseal region. There is a third radiopaque needle projecting over the proximal tibia. FL/FL guidance in treatment room IMPRESSION: Fluoroscopic guidance for intervention in the region of the right knee. Please refer to procedural report for further information.
== END 2022-06-10 06:12 | disposition home or self-care (01) ==
LOC: HO.RADIR 06:11
PROVIDERS: Visit Provider Anesthesiology
DX: M17.11 Unilateral primary osteoarthritis, right knee (principal); M25.461 Effusion, right knee
CPT/HCPCS: 64454

== ENCOUNTER 2022-07-04 07:34 | Day surgery (SDC) | payer OTHER, MEDICAID, SELFPAY ==
[2022-06-30 11:34] VITALS: BMI 25.2
--- NOTE | 2022-07-03 10:58 | HO.ANESPROP2 ---
Documented by User: July Ivy NP 07/03/22 11:00 HPI - Anesthesia Eval Consult details Narrative: 61yo F for Right Femoral Nerve Block US guided PMFSH Active Problems Active Problems: All Active Problems (Updated 05/28/22 @ 17:05 by Jcarlos Gee MD) Osteoarthritis of right knee (Acute) Right knee pain (Acute) Effusion, right knee (Acute) Atrophic vaginitis (Acute) Myofascial pain (Acute) Dyspareunia in female (Acute) Dysuria (Acute) Chronic pelvic pain in female (Acute) Pelvic pain in female (Acute) Hematuria (Acute) Mass of spine (Acute) Hematuria (Acute) Type 2 diabetes mellitus with polyneuropathy (Acute) DM2 (diabetes mellitus, type 2) (Acute) Patellofemoral arthritis of right knee (Acute) Patellofemoral arthritis of left knee (Acute) Controlled diabetes mellitus with diabetic polyneuropathy (Acute) Paronychia (Acute) Non-cardiac chest pain (Acute) De Quervain's tenosynovitis, left (Acute) Nail deformity (Acute) Constipation by delayed colonic transit (Acute) Gastritis (Acute) Hypertension (Acute) Dyslipidemia (Acute) Post-surgical hypothyroidism (Acute) Primary thyroid cancer (Acute) Vitamin D deficiency (Acute) Past Medical History Medical History Blood in urine Constipation by delayed colonic transit Diabetes DM2 (diabetes mellitus, type 2) Dyslipidemia Gastritis Hematuria Hematuria Hypertension Mass of spine Post-surgical hypothyroidism Primary thyroid cancer Thyroid cancer Tubular adenoma of colon Type 2 diabetes mellitus with polyneuropathy Vitamin D deficiency Family History Family History Father Stroke Heart attack Mother Diabetes mellitus Family/Other Family history of cancer Sister Stomach cancer Family/Other Thyroid cancer Surgical History Surgical History History of back surgery History of esophagogastroduodenoscopy (EGD) Hx of section Hx of colonoscopy Hx of hernia repair Hx of hysterectomy Hx of thyroidectomy Social History Social History Household Members: Spouse, Children and Other Alcohol intake: never Patient Tobacco Use Status: Former Tobacco user Use of substances other than those prescribed or required for medical reasons: No Are you DNR?: No Advance Directives: No Advance Directives Information Provided: Yes Nutrition Risks: No Nutritional Risk Sexual orientation: Straight/Heterosexual Gender identity: Female Meds Allergies Allergy/AdvReac Type Severity Reaction Status Date / Time Penicillins [PENICILLINS] Allergy Unknown HIVES Verified 07/04/22 08:06 Home Medications Medication Instructions Recorded Confirmed Last Taken Type losartan 50 mg tablet 50 mg PO BID 10/10/20 04/23/22 01/24/21 09:00 History metoprolol succinate 50 mg 50 mg PO DAILY 02/06/21 04/23/22 Unknown History tablet,extended release 24 hr loteprednol etabonate 0.5 % eye 1 drp ophthalmic (eye) QID 05/22/21 04/23/22 Unknown History drops,suspension multivitamin 1 tab PO QAM 05/22/21 04/23/22 Unknown History tolterodine 2 mg capsule,extended 2 mg PO DAILY 12/20/21 04/23/22 Unknown History release 24 hr atorvastatin 80 mg tablet 80 mg PO BEDTIME 04/21/22 04/23/22 Unknown History hydrochlorothiazide 12.5 mg tablet 12.5 mg PO QAM 04/21/22 04/23/22 Unknown History glipizide 5 mg tablet 2.5 mg PO QAM 06/10/22 Unknown History hyoscyamine sulfate 0.125 mg tablet 0.125 mg PO TID 06/10/22 Unknown History linagliptin 5 mg tablet (Tradjenta) 5 mg PO QAM 06/10/22 Unknown History Exam Exam Date and Time: July 03, 2022 1058 Height,Weight and Vital Signs: Height 5 ft 5 in Weight 68.946 kg Pertinent Lab Results Pertinent Lab Results: Laboratory Tests 02/02/22 02/02/22 08:45 08:45 WBC 6.2 Hgb 11.0 L Hct 34.6 L Plt Count 257 Sodium 139 Potassium 4.1 Chloride 103 Carbon Dioxide 26 BUN 14 Creatinine 0.74 Assessment and Plan Assessment Anesthesia Assessment: Chart Reviewed Documented by User: Sherine Starr MD 07/04/22 09:19 [facility] Past Medical History Medical History Blood in urine Constipation by delayed colonic transit Diabetes DM2 (diabetes mellitus, type 2) Dyslipidemia Gastritis Hematuria Hematuria Hypertension Mass of spine Post-surgical hypothyroidism Primary thyroid cancer Thyroid cancer Tubular adenoma of colon Type 2 diabetes mellitus with polyneuropathy Vitamin D deficiency Functional capacity: independent ambulation Patient : No Family History Family History Father Stroke Heart attack Mother Diabetes mellitus Family/Other Family history of cancer Sister Stomach cancer Family/Other Thyroid cancer Family history of problems with anesthesia: No Surgical History Surgical History History of back surgery History of esophagogastroduodenoscopy (EGD) Hx of section Hx of colonoscopy Hx of hernia repair Hx of hysterectomy Hx of thyroidectomy History of Problems with Anesthesia: No Social History Social History Household Members: Spouse, Children and Other Alcohol intake: never Patient Tobacco Use Status: Former Tobacco user Use of substances other than those prescribed or required for medical reasons: No Are you DNR?: No Advance Directives: No Advance Directives Information Provided: Yes Nutrition Risks: No Nutritional Risk Sexual orientation: Straight/Heterosexual Gender identity: Female Meds Allergies Allergy/AdvReac Type Severity Reaction Status Date / Time Penicillins [PENICILLINS] Allergy Unknown HIVES Verified 07/04/22 08:06 Home Medications Medication Instructions Recorded Confirmed Last Taken Type losartan 50 mg tablet 50 mg PO BID 10/10/20 04/23/22 01/24/21 09:00 History metoprolol succinate 50 mg 50 mg PO DAILY 02/06/21 04/23/22 Unknown History tablet,extended release 24 hr loteprednol etabonate 0.5 % eye 1 drp ophthalmic (eye) QID 05/22/21 04/23/22 Unknown History drops,suspension multivitamin 1 tab PO QAM 05/22/21 04/23/22 Unknown History tolterodine 2 mg capsule,extended 2 mg PO DAILY 12/20/21 04/23/22 Unknown History release 24 hr atorvastatin 80 mg tablet 80 mg PO BEDTIME 04/21/22 04/23/22 Unknown History hydrochlorothiazide 12.5 mg tablet 12.5 mg PO QAM 04/21/22 04/23/22 Unknown History glipizide 5 mg tablet 2.5 mg PO QAM 06/10/22 Unknown History hyoscyamine sulfate 0.125 mg tablet 0.125 mg PO TID 06/10/22 Unknown History linagliptin 5 mg tablet (Tradjenta) 5 mg PO QAM 06/10/22 Unknown History Exam Airway Mallampati Class: II TM Dist: >3cm Neck ROM: Full Heart: RRR Lungs: CtA Assessment and Plan Final Anesthetic Review Family History of Problems with Anesthesia: No History of Problems with Anesthesia: No ASA Class: II Final Preanesthetic Review: No Changes in Pt Med Stat, Meds/Allgs Chart Reviewed, Consent Obtained/Reviewed and Anes Risks/Benef Reviewed Patient Risk: Low Procedure Risk: Low Anesthetic Plan Anesthetic Plan: MAC: Disposition: Standard PACU
[2022-07-04] MEDS: Lactated Ringers 1,000 ML 100 ML IVCONT (08:10)
[2022-07-04 08:12] VITALS: BP 145/78; PULSE 79; RESP 18; TEMP 36.3; O2SAT 97
[2022-07-04 08:20] LABS: Glucose, Whole Blood 148 mg/dL (60-115)
--- NOTE | 2022-07-04 08:52 | P.HPSUR_ITS ---
Pre-Procedural Eval Section A Date of Service: 07/04/22 The patient is an INPATIENT: No Changes since office visit: Yes Patient answered all questions The History & Physical has been completed within 30 days and I have reviewed it.: No Section B Chief Complaint: Unilateral primary osteoarthritis, right knee Details of Present Illness: as above Relevant Family History (Specify if Yes): No Relevant Social History: None Present Medications: see Short Stay Collaborative assessment Medical History: No relevant PMH History of Previous Operations: No relevant previous surgery Allergies: Allergies Allergy/AdvReac Type Severity Reaction Status Date / Time Penicillins [PENICILLINS] Allergy Unknown HIVES Verified 07/04/22 08:06 Review of Systems Sugical H&P ROS: Negative: Constitution, Cardiovascular, Respiratory, Neurological, Psychiatric, Hem-Onc, Allergic/Immunologic, Gastrointestinal, Genitourinary, Musculoskeletal, Integumentary, Endocrine and Eyes/Ears/Nos e/Throat Exam Surgical H&P Exam: Normal: HEENT, Normal: Heart, Normal: Lungs, Normal: Extremities, Normal: Abdomen, Normal: Skin and Normal: Neurological Plan Diagnosis/Plan: Unchanged I have reviewed the history and physical and performed a pertinent physical examination on my patient. No changes have occurred unless specified.
--- NOTE | 2022-07-04 09:40 | W.PM.OPN ---
Operative Note Operative Note Date of Service: 07/04/22 Narrative: Right diagnostic ultrasound guided femoral nerve block. ? ? Informed consent was explained thoroughly to the patient.? All questions about benefits and risks for the procedure were answered. ? ?Patient came to the operating room, she was positioned supine on the stretcher with the small support under her right hip.? ASA monitors were applied and the patient was moderately sedated. Time-out was performed, delineating the correct side and site of the procedure name and of the patient, allergies and risks. ? Hes right groin, right lower abdomen and right anterolateral thigh were prepped with ChloraPrep, and draped with sterile utility towels. Sterilly draped straight ultrasound probe was brought on the operating field and picture of patient's femoral artery, femoral vein and femoral nerve were delineated on the screen. 22 g 100 mm echo positive needle was inserted extra-anatomically immediately lateral to the probe and was advanced to the femoral nerve in live view ultrasound guided. when the tip of the needle was detected near the nerve, aspiration was performed negative for heme, vicinity injection of the saline was performed demonstrating perineural spread of the injectate. aFTER THAT 5 MLS OF ROPIVACAINE 0.5% injection was performed in the immediate vicinity of the nerve. After that the needle was withdrawn and band-aid was applied. The patient tolerated the procedure well, she was taken to the recovery room where she recovered uneventfully.
[2022-07-04 10:09] VITALS: BP 133/66; PULSE 75; RESP 16; TEMP 36.3; O2SAT 96
--- NOTE | 2022-07-04 10:12 | HO.POSTANES ---
Post Anesthesia Evaluation Post Anesthesia Evaluation Vital Signs: Vital Signs Temp Pulse Resp BP Pulse Ox O2 Del Method 07/04/22 08:12 97.4 F 79 18 145/78 H 97 Room Air Anesthesia: Monitored Mental Status: Awake Pain Control: Satisfactory Nausea/Vomiting: None Hydration: Adequate Anesthesia-Related Issues: No Anes. Related Issues
--- NOTE | 2022-07-04 10:21 | PM.OP ---
Brief Operative Note Date of Service: 07/04/22 Pre-op diagnosis: right knee osteoarthritis Post-op diagnosis: same Procedure: diagnostic femoral nerve block Surgeon: Jcarlos Gee MD Anesthesia: MAC Was an Quantitative Consultant used for this Procedure?: No Estimated blood loss (mL): 0 Condition: stable Disposition: PACU
[2022-07-04 10:24] VITALS: BP 132/77; PULSE 74; RESP 16; O2SAT 97
[2022-07-04 10:40] VITALS: BP 131/67; PULSE 70; RESP 16; O2SAT 97
[2022-07-04 10:55] VITALS: BP 141/77; PULSE 85; RESP 16; O2SAT 97
[2022-07-04 11:45] VITALS: BP 142/70; PULSE 78; RESP 16; TEMP 36.6; O2SAT 97
== END 2022-07-04 12:30 | disposition home or self-care (01) ==
PROVIDERS: Visit Provider Anesthesiology
PROC: 3E0T3BZ Introduction of Anesthetic Agent into Peripheral Nerves and Plexi, Percutaneous Approach (ICD-10-PCS; CPT 64447; principal; 2022-07-04 09:50)
DX: M17.11 Unilateral primary osteoarthritis, right knee (principal); M25.461 Effusion, right knee; M25.561 Pain in right knee; I10 Essential (primary) hypertension; E78.5 Hyperlipidemia, unspecified; E89.0 Postprocedural hypothyroidism; E55.9 Vitamin D deficiency, unspecified; Z85.850 Personal history of malignant neoplasm of thyroid; E11.42 Type 2 diabetes mellitus with diabetic polyneuropathy; Z79.84 Long term (current) use of oral hypoglycemic drugs; Z79.899 Other long term (current) drug therapy; Z87.891 Personal history of nicotine dependence; Z88.0 Allergy status to penicillin
CPT/HCPCS: 64447; 82947; J2250

== ENCOUNTER 2022-08-11 09:34 | Outpatient (REF) | payer OTHER, MEDICAID, SELFPAY ==
[2022-08-11 10:28] LABS: Blood Urea Nitrogen 12 mg/dL (9-16); Estimated Glomerular Filt Rate > 60
[2022-08-11 10:44] LABS: Thyroid Stimulating Hormone 0.01 uIU/mL (0.32-4.0)
[2022-08-11 10:50] LABS: Free T4 (Free Thyroxine) 2.19 ng/dL (0.71-1.85)
[2022-08-13 01:57] LABS: Thyroglobulin 0.1 ng/mL; Thyroglobulin Antibodies <1 IU/mL (< or = 1)
== END 2022-08-11 09:35 | disposition home or self-care (01) ==
LOC: HO.LAB 09:34
PROVIDERS: Internal Medicine; PCP Internal Medicine; Visit Provider Nurse Practitioner Family
DX: R10.11 Right upper quadrant pain (principal); C73 Malignant neoplasm of thyroid gland; E55.9 Vitamin D deficiency, unspecified
CPT/HCPCS: 36415; 82306; 82565; 84432; 84439; 84443; 84520; 86800

== ENCOUNTER 2022-08-13 07:01 | Outpatient (REF) | payer OTHER, MEDICAID, SELFPAY ==
--- NOTE | ~2022-08-13 | CT_ITS ---
EXAMINATION: CT ABDOMEN AND PELVIS WITH CONTRAST CLINICAL INFORMATION: Abdominal pain. COMPARISON: CT abdomen/pelvis 02/02/2022. TECHNIQUE: Multidetector volumetric images were obtained from the superior aspect of the liver through the pubic symphysis following administration 85 mL of Omnipaque 350 intravenous contrast. Sagittal and coronal reformatted images were obtained on the technologist's workstation. Oral contrast: No. This CT examination was performed using dose optimization techniques as appropriate, variously including the following: *Automated exposure control *Adjustment of mA and/or kV according to patient size (this includes techniques or standardized protocols for targeted exams where dose is matched to indication/reason for exam; i.e. extremities or head) *Use of iterative reconstruction technique DLP: 281 mGy-cm FINDINGS: LUNG BASES: There is dependent bibasilar atelectasis. The heart size is normal. LIVER, GALLBLADDER, AND BILIARY TREE: The liver is normal in size, shape, and attenuation. No focal hepatic lesion or biliary ductal dilatation is present. The gallbladder is unremarkable with no evidence of radiopaque gallstones, gallbladder wall thickening, or obvious pericholecystic inflammatory changes. PANCREAS: Unremarkable. SPLEEN: Unremarkable. ADRENAL GLANDS: Unremarkable. KIDNEYS AND URETERS: The kidneys are normal in size, shape, and attenuation. No hydronephrosis, hydroureter, or calculi seen. No perinephric stranding. BLADDER: Unremarkable. GASTROINTESTINAL TRACT: There is scattered stool, gas and oral contrast seen throughout the colon without distention. The small bowel loops and appendix are normal. A few scattered lymph nodes are seen in the right ileocecal mesentery with the largest lymph node measuring 9 mm. ABDOMINAL WALL: No significant hernia is appreciated. LYMPH NODES: Normal. VASCULAR: Unremarkable. PELVIC VISCERA: No free fluid or free air seen. The uterus is atrophic or surgically absent. No adnexal mass seen. OSSEOUS STRUCTURES: There are degenerative disc changes with vacuum disc phenomena at the L5-S1 disc level. No aggressive lytic or sclerotic process. CT/CT abdomen pelvis w IV con IMPRESSION: No acute intra-abdominal abnormality seen. Mild constipation. There is mild L5-S1 facet joint arthropathy. Fleischner guidelines were followed.
[2022-08-13] MEDS: iohexoL 350 MG/ML 100 ML INFUS..BTL IV (09:47)
[2022-08-13] MEDS: Barium Sulfate Oral (Berry) 450 ML ORAL.SUSP 900 ML PO (09:48)
== END 2022-08-13 07:02 | disposition home or self-care (01) ==
LOC: HO.CT 07:01
PROVIDERS: Visit Provider Nurse Practitioner Family
DX: R10.9 Unspecified abdominal pain (principal)
CPT/HCPCS: 74177; Q9967

== ENCOUNTER 2022-08-29 11:05 | Outpatient (REF) | payer OTHER, MEDICAID, SELFPAY ==
--- NOTE | ~2022-08-29 | XR_ITS ---
EXAMINATION: XR CERVICAL SPINE CLINICAL INFORMATION: Cervicalgia COMPARISON: None TECHNIQUE: 5 views of the cervical spine FINDINGS: No abnormal prevertebral soft tissue swelling is seen. There is mild disc space narrowing seen at the C6-C7 level with minor marginal spurring. No acute fracture is identified. No destructive bony lesion. There is some spurring of the joints of Luschka at the C5-C6 level but without significant bony neural foraminal encroachment is appreciated. XR/XR cervical spine 4V IMPRESSION: No significant cervical spine abnormality appreciated. Mild degenerative change C5-C6 and C6-C7.
--- NOTE | ~2022-08-29 | XR_ITS ---
EXAMINATION: XR SHOULDER, RIGHT CLINICAL INFORMATION: Right shoulder pain COMPARISON: None TECHNIQUE: AP external rotation, Grashey, scapular Y, and axillary views of the right shoulder. FINDINGS: The bones and soft tissues are normal. No fracture. Glenohumeral and acromioclavicular alignment is anatomic with normal joint space. No abnormal soft tissue calcifications. XR/XR shoulder RT min 2V IMPRESSION: No significant right shoulder abnormality appreciated.
== END 2022-08-29 11:06 | disposition home or self-care (01) ==
LOC: HO.XRAY 11:05
PROVIDERS: Absent Provider Internal Medicine; PCP Internal Medicine; Visit Provider Internal Medicine
DX: M25.511 Pain in right shoulder (principal); M54.2 Cervicalgia
CPT/HCPCS: 72050; 73030

== ENCOUNTER → 2022-09-08 14:03 | Outpatient (BNVA) | payer OTHER, MEDICAID, SELFPAY | PROVIDERS: PCP Internal Medicine; Visit Provider Internal Medicine | DX: E89.0 Postprocedural hypothyroidism (principal); E55.9 Vitamin D deficiency, unspecified; E11.42 Type 2 diabetes mellitus with diabetic polyneuropathy; Z85.850 Personal history of malignant neoplasm of thyroid | CPT/HCPCS: 82947; 83036 ==

== ENCOUNTER 2022-09-11 10:45 | Day surgery (SDC) | payer OTHER, MEDICAID, SELFPAY ==
--- NOTE | 2022-09-10 09:37 | HO.ANESPROP2 ---
Documented by User: July Ivy NP 09/10/22 09:38 HPI - Anesthesia Eval Consult details Narrative: 61yo F for Lumbar Spinal Cord Stimulation Trial s/p Femoral Nerve Block 06/2022 with TIVA PMFSH Active Problems Active Problems: All Active Problems (Updated 09/10/22 @ 07:51 by Yumiko Tan RN) Controlled diabetes mellitus with diabetic polyneuropathy (Acute) Paronychia (Acute) Non-cardiac chest pain (Acute) De Quervain's tenosynovitis, left (Acute) Nail deformity (Acute) Patellofemoral arthritis of left knee (Acute) Patellofemoral arthritis of right knee (Acute) Hematuria (Acute) Pelvic pain in female (Acute) Chronic pelvic pain in female (Acute) Dysuria (Acute) Dyspareunia in female (Acute) Myofascial pain (Acute) Atrophic vaginitis (Acute) Effusion, right knee (Acute) Right knee pain (Acute) Osteoarthritis of right knee (Acute) CRPS (complex regional pain syndrome type I) (Acute) History of thyroid cancer (Acute) Hematuria (Acute) Mass of spine (Acute) Type 2 diabetes mellitus with polyneuropathy (Acute) DM2 (diabetes mellitus, type 2) (Acute) Constipation by delayed colonic transit (Acute) Gastritis (Acute) Hypertension (Acute) Dyslipidemia (Acute) Post-surgical hypothyroidism (Acute) Primary thyroid cancer (Acute) Vitamin D deficiency (Acute) Past Medical History Medical History Blood in urine Constipation by delayed colonic transit Dyslipidemia Gastritis Hematuria Hypertension Mass of spine Post-surgical hypothyroidism Primary thyroid cancer Thyroid cancer Tubular adenoma of colon Type 2 diabetes mellitus with polyneuropathy Vitamin D deficiency Family History Family History Father Stroke Heart attack Mother Diabetes mellitus Family/Other Family history of cancer Sister Stomach cancer Family/Other Thyroid cancer Family history of problems with anesthesia: No Surgical History Surgical History History of back surgery History of esophagogastroduodenoscopy (EGD) Hx of section Hx of colonoscopy Hx of hernia repair Hx of hysterectomy Hx of thyroidectomy History of Problems with Anesthesia: No Social History Social History Household Members: Spouse, Children and Other Alcohol intake: never Patient Tobacco Use Status: Former Tobacco user Second Hand Smoke Exposure: No Use of substances other than those prescribed or required for medical reasons: No Are you DNR?: No Advance Directives: No Advance Directives Information Provided: Yes Advance Directives on File: No Sexual orientation: Straight/Heterosexual Gender identity: Female Meds Allergies Allergy/AdvReac Type Severity Reaction Status Date / Time Penicillins [PENICILLINS] Allergy Unknown HIVES Verified 09/08/22 14:26 Home Medications Medication Instructions Recorded Confirmed Last Taken Type losartan 50 mg tablet 50 mg PO BID 10/10/20 09/05/22 01/24/21 09:00 History metoprolol succinate 50 mg 50 mg PO DAILY 02/06/21 09/08/22 Unknown History tablet,extended release 24 hr loteprednol etabonate 0.5 % eye 1 drp ophthalmic (eye) QID 05/22/21 09/05/22 Unknown History drops,suspension multivitamin 1 tab PO QAM 05/22/21 09/08/22 Unknown History tolterodine 2 mg capsule,extended 2 mg PO DAILY 12/20/21 09/08/22 Unknown History release 24 hr atorvastatin 80 mg tablet 80 mg PO BEDTIME 04/21/22 09/08/22 Unknown History hydrochlorothiazide 12.5 mg tablet 12.5 mg PO QAM 04/21/22 09/08/22 Unknown History hyoscyamine sulfate 0.125 mg tablet 0.125 mg PO TID 06/10/22 09/08/22 Unknown History albuterol sulfate 90 mcg/actuation 2 puff inhalation Q4-6H PRN 09/05/22 09/08/22 Unknown History aerosol inhaler (ProAir HFA) Wheezing fluticasone propionate 220 1 puff inhalation BID 09/05/22 09/08/22 Unknown History mcg/actuation HFA aerosol inhaler (Flovent HFA) linagliptin 5 mg tablet (Tradjenta) 1 tab PO QAM 09/05/22 09/08/22 Unknown History meloxicam 15 mg tablet 1 tab PO DAILY 09/05/22 09/05/22 Unknown History nortriptyline 25 mg capsule 1 cap PO BEDTIME 09/05/22 09/08/22 Unknown History Exam Exam Date and Time: September 10, 2022 0937 Pertinent Lab Results Pertinent Lab Results: Laboratory Tests 02/02/22 02/02/22 08/11/22 08:45 08:45 09:47 WBC 6.2 Hgb 11.0 L Hct 34.6 L Plt Count 257 Sodium 139 Potassium 4.1 Chloride 103 Carbon Dioxide 26 BUN 12 Creatinine 0.75 Assessment and Plan Assessment Anesthesia Assessment: Chart Reviewed Final Anesthetic Review Family History of Problems with Anesthesia: No History of Problems with Anesthesia: No Documented by User: Sherrill Chaidez MD 09/11/22 12:36 PMFSH Past Medical History Medical History Blood in urine Constipation by delayed colonic transit Dyslipidemia Gastritis Hematuria Hypertension Mass of spine Post-surgical hypothyroidism Primary thyroid cancer Thyroid cancer Tubular adenoma of colon Type 2 diabetes mellitus with polyneuropathy Vitamin D deficiency Family History Family History Father Stroke Heart attack Mother Diabetes mellitus Family/Other Family history of cancer Sister Stomach cancer Family/Other Thyroid cancer Surgical History Surgical History History of back surgery History of esophagogastroduodenoscopy (EGD) Hx of section Hx of colonoscopy Hx of hernia repair Hx of hysterectomy Hx of thyroidectomy Social History Social History Household Members: Spouse, Children and Other Alcohol intake: never Patient Tobacco Use Status: Former Tobacco user Second Hand Smoke Exposure: No Use of substances other than those prescribed or required for medical reasons: No Are you DNR?: No Advance Directives: No Advance Directives Information Provided: Yes Advance Directives on File: No Sexual orientation: Straight/Heterosexual Gender identity: Female Meds Allergies Allergy/AdvReac Type Severity Reaction Status Date / Time Penicillins [PENICILLINS] Allergy Unknown HIVES Verified 09/08/22 14:26 Home Medications Medication Instructions Recorded Confirmed Last Taken Type losartan 50 mg tablet 50 mg PO BID 10/10/20 09/05/22 01/24/21 09:00 History metoprolol succinate 50 mg 50 mg PO DAILY 02/06/21 09/08/22 Unknown History tablet,extended release 24 hr loteprednol etabonate 0.5 % eye 1 drp ophthalmic (eye) QID 05/22/21 09/05/22 Unknown History drops,suspension multivitamin 1 tab PO QAM 05/22/21 09/08/22 Unknown History tolterodine 2 mg capsule,extended 2 mg PO DAILY 12/20/21 09/08/22 Unknown History release 24 hr atorvastatin 80 mg tablet 80 mg PO BEDTIME 04/21/22 09/08/22 Unknown History hydrochlorothiazide 12.5 mg tablet 12.5 mg PO QAM 04/21/22 09/08/22 Unknown History hyoscyamine sulfate 0.125 mg tablet 0.125 mg PO TID 06/10/22 09/08/22 Unknown History albuterol sulfate 90 mcg/actuation 2 puff inhalation Q4-6H PRN 09/05/22 09/08/22 Unknown History aerosol inhaler (ProAir HFA) Wheezing fluticasone propionate 220 1 puff inhalation BID 09/05/22 09/08/22 Unknown History mcg/actuation HFA aerosol inhaler (Flovent HFA) linagliptin 5 mg tablet (Tradjenta) 1 tab PO QAM 09/05/22 09/08/22 Unknown History meloxicam 15 mg tablet 1 tab PO DAILY 09/05/22 09/05/22 Unknown History nortriptyline 25 mg capsule 1 cap PO BEDTIME 09/05/22 09/08/22 Unknown History Exam Height,Weight and Vital Signs: Height 5 ft 5 in Weight 66.224 kg Vital Signs Temp Pulse Resp BP Pulse Ox O2 Del Method 09/11/22 12:06 97.5 F 101 H 16 113/57 L 97 Room Air Narrative Narrative: Lab Results 09/11/22 Range/Units 12:03 POC Glucose 114 (60-115) mg/dL Airway Mallampati Class: II TM Dist: >3cm Neck ROM: Full Partial: Upper Loose/Missing/Broken Teeth: Yes (Many missing, denies broken or loose teeth) Heart: RRR Lungs: CTAB Assessment and Plan Assessment Anesthesia Assessment: Anesthesia Plan Discussed Final Anesthetic Review NPO: Yes ASA Class: III Final Preanesthetic Review: No Changes in Pt Med Stat, Meds/Allgs Chart Reviewed, Consent Obtained/Reviewed and Anes Risks/Benef Reviewed Patient Risk: Intermediate Procedure Risk: Intermediate Assessment/Block/Sedation in SS: Assess/Block/Sedation-SS Anesthetic Plan Anesthetic Plan: MAC: Disposition: Standard PACU
--- NOTE | ~2022-09-11 | FL_ITS ---
EXAMINATION: XR FLUOROSCOPY WITH IMAGES CLINICAL INFORMATION: Spinal cord stimulator trial COMPARISON: CT abdomen and pelvis 08/13/2022 TECHNIQUE: Fluoroscopy performed by Dr. Jcarlos Gee. Fluoroscopy time: 1.7 minutes. Cumulative Dose: 26.2 mGy. DAP: 8.79 Gycm2. Images: 2. FINDINGS: There is a spinal stimulator electrode ascending the posterior spinal canal just right of midline. The electrode tip is at the level of mid L2 vertebral body. There is no visible kinking or defect of the lead. FL/FL guidance in OR IMPRESSION: Fluoroscopy for pain management procedure.
--- NOTE | 2022-09-11 09:29 | W.PM.OPN ---
Operative Note Operative Note Date of Service: 09/11/22 Narrative: trial of spinal cord stimulator [employer] lumbar position on the daniel Alejo is very pleasant 61 years old female tho came today into the operating room for trial of spinal cord stimulator [employer] for the treatment of d Complex regional pain syndrome of the? rightt lower extremity, ?Preoperatively patient received ? clindamycin 600 mg approximately 10 minutes before the procedure. After obtaining informed consent the patient was brought to the operating room, shewas positioned prone on operating table,?? [employer] monitors were applied and patient was moderately sedated. ?Time-out was performed delineating correct site, side, the nature of the procedure, patient's allergy, preoperative antibiotic if needed.? All operating room staff was participating in OR time-out procedure. Patient's entire back was prepped with Chloraprep twice and draped with full body fenestrated laparoscopy drape.? Sterilely draped C-arm was brought over operating field and square picture of the ? L4-5 vertebra and sacral bone? were demonstrated on the screen.? ?Attention FIRST? was concentrated on the L5-S1 epidural interspace.? the location of the of the area for inches below the upper margin of the right sacral ala was found on the skin using C-arm.? This location was injected with mixture of lidocaine 2% and Marcaine 0.5% 5 cc.? After that 11 blade was used to make a jacinto on the skin.? 10 cm 14 gauge introducer epidural needle was inserted through the jacinto and advanced to L5-S1 epidural interspace.? The advancement of the needle was performed on anterior posterior and lateral views.? Guitar wire and loss of resistance to air technique were used to locate epidural space.? When guitar wire was spread in the epidural fashion, epidural lead was inserted through the needle and advanced to the gutter of the spinal canal keeping epidural leads as close to silhouette of the pedicles as possible. Impedance was checked and was satisfactory . at this moment? the epidural leads were connected to the testing wires and trial stimulation was performed.? Patient was Awaken and stimulation was turned on. She was reporting stumulation corresponding to right lower extremity pain in the knee. Impedance was checked? and it was found to be satisfactory.? Lateral picture demonstrated epidural lead sitting across L3-L4 and L4-5 foramina. The needle Was withdrawn with care taken to keep epidural lead in place., the stylette wires were removed from the epidural leads.? The anchoring devices were dislodged on the leads and advanced to the level of the skin.? The anchoring device was sutured with two 0-0 ?Silk sutures per each anchor to the skin of the patient. The anchor was rotated until three clicks were heard. The leads were connected to testing device.? Bacitracin ointment was applied to the entrance point of bilateral wires.? Sterile dressing was applied to the patient's back.? The testing device was also taped to the patient's back.? the patient tolerated procedure well she was awaken and taken outside of the operating room to recovery room. she recovered uneventfully.
--- NOTE | 2022-09-11 09:29 | MHC.SHP ---
Pre-Procedural Eval Section A Date of Service: 09/11/22 The patient is an INPATIENT: No Changes since office visit: Yes Patient answered all questions The History & Physical has been completed within 30 days and I have reviewed it.: No Section B Chief Complaint: Complex regional pain syndrome I, unspecified Details of Present Illness: As above Relevant Family History (Specify if Yes): No Relevant Social History: None Present Medications: see Short Stay Collaborative assessment Medical History: No relevant PMH History of Previous Operations: Relevant previous surgery/procedure and date(s) Allergies: Allergies Allergy/AdvReac Type Severity Reaction Status Date / Time Penicillins [PENICILLINS] Allergy Unknown HIVES Verified 09/08/22 14:26 Review of Systems Sugical H&P ROS: Negative: Constitution, Cardiovascular, Respiratory, Neurological, Psychiatric, Hem-Onc, Allergic/Immunologic, Gastrointestinal, Genitourinary, Musculoskeletal, Integumentary, Endocrine and Eyes/Ears/Nose/Throat Exam Surgical H&P Exam: Normal: HEENT, Normal: Heart, Normal: Lungs, Normal: Abdomen, Normal: Skin and Normal: Neurological and Significant Findings: Extremities (right LE CRPS) Plan Diagnosis/Plan: Unchanged I have reviewed the history and physical and performed a pertinent physical examination on my patient. No changes have occurred unless specified.
[2022-09-11 12:06] VITALS: BP 113/57; PULSE 101; RESP 16; TEMP 36.4; O2SAT 97; BMI 24.3
[2022-09-11 12:08] LABS: Glucose, Whole Blood 114 mg/dL (60-115)
[2022-09-11] MEDS: Lactated Ringers 1,000 ML 100 ML IVCONT (12:10)
[2022-09-11 14:42] VITALS: BP 146/84; PULSE 107; RESP 17; TEMP 37.2; O2SAT 97
--- NOTE | 2022-09-11 14:42 | P.BOP_ITS ---
Brief Operative Note Date of Service: 09/11/22 Pre-op diagnosis: Complex regional pain syndrome right lower extremity Post-op diagnosis: same Procedure: SCS [employer] lumbar stimulation Implants: none permanent Surgeon: Jcarlos Gee MD Anesthesia: MAC Was an Glue Size Machine Operator used for this Procedure?: No Estimated blood loss (mL): 0 Condition: stable Disposition: PACU
[2022-09-11 14:57] VITALS: BP 154/83; PULSE 101; RESP 16; O2SAT 97
[2022-09-11] MEDS: Acetaminophen 325 MG TABLET 650 MG PO (14:59)
[2022-09-11 15:12] VITALS: BP 132/81; PULSE 91; RESP 16; TEMP 37; O2SAT 100
== END 2022-09-11 15:56 | disposition home or self-care (01) ==
PROVIDERS: PCP Internal Medicine; Visit Provider Anesthesiology
PROC: (CPT 63650; principal; 2022-09-11 13:10)
DX: G90.521 Complex regional pain syndrome I of right lower limb (principal); M25.561 Pain in right knee; M17.11 Unilateral primary osteoarthritis, right knee; R26.2 Difficulty in walking, not elsewhere classified; I10 Essential (primary) hypertension; E11.9 Type 2 diabetes mellitus without complications; E78.5 Hyperlipidemia, unspecified; E11.42 Type 2 diabetes mellitus with diabetic polyneuropathy; Z79.84 Long term (current) use of oral hypoglycemic drugs; Z85.850 Personal history of malignant neoplasm of thyroid; E89.0 Postprocedural hypothyroidism; Z88.0 Allergy status to penicillin; Z79.899 Other long term (current) drug therapy; Z87.891 Personal history of nicotine dependence
CPT/HCPCS: 63650; 82947; C1713; C1778; J2250; J2795; J3010

== ENCOUNTER 2022-09-23 16:11 | Outpatient (REF) | payer OTHER, MEDICAID, SELFPAY ==
[2022-09-24 09:03] LABS: BV Int Neg Control Negative (Negative); BV Int Pos Control Positive (Positive)
== END 2022-09-23 16:12 | disposition home or self-care (01) ==
LOC: HO.LNP 16:11
PROVIDERS: Visit Provider Advanced Practice Midwife
DX: N76.0 Acute vaginitis (principal)
CPT/HCPCS: 87480; 87510; 87660

== ENCOUNTER 2022-09-24 08:29 | Outpatient (REF) | payer OTHER, MEDICAID, SELFPAY ==
[2022-09-24 09:28] LABS: Blood Urea Nitrogen 12 mg/dL (9-16); Estimated Glomerular Filt Rate > 60
== END 2022-09-24 08:30 | disposition home or self-care (01) ==
LOC: HO.LAB 08:29
PROVIDERS: PCP Internal Medicine; Visit Provider Internal Medicine
DX: C73 Malignant neoplasm of thyroid gland (principal)
CPT/HCPCS: 36415; 82565; 84520

== ENCOUNTER 2022-09-25 15:45 | Outpatient (REF) | payer OTHER, MEDICAID, SELFPAY ==
--- NOTE | ~2022-09-25 | CT_ITS ---
EXAMINATION: CT CHEST WITH CONTRAST CLINICAL INFORMATION: History of thyroid cancer. COMPARISON: Previous chest x-rays, most recent 12/25/2021. TECHNIQUE: Multidetector volumetric CT imaging of the chest was obtained after the administration of 65 mL of Omnipaque 350 intravenous contrast without immediate adverse reactions. Axial MIP volume rendering provided. Sagittal and coronal reformatted images were obtained. This CT examination was performed using dose optimization techniques as appropriate, variously including the following: *Automated exposure control *Adjustment of mA and/or kV according to patient size (this includes techniques or standardized protocols for targeted exams where dose is matched to indication/reason for exam; i.e. extremities or head) *Use of iterative reconstruction technique DLP: 97 mGy-cm FINDINGS: LUNGS: 2 x 5 mm peripheral or subpleural right lower lobe nodule adjacent to the major fissure (axial image 95, series 5) probably representing a subpleural lymph node. 4 mm noncalcified left lower lobe nodule (axial image 112, series 5). 6 mm calcified right lower lobe nodule (axial image 119, series 5). MEDIASTINUM: There are surgical clips in the anterior superior mediastinum. The mediastinum is otherwise normal. Small mediastinal and bilateral hilar lymph nodes including partially calcified right hilar lymph node. No enlarged lymph nodes. Normal heart size. No pericardial effusion. Normal caliber thoracic aorta. No coronary artery calcification. PLEURA: There is no pleural effusion. No pleural mass or thickening. AXILLA: No lymphadenopathy. UPPER ABDOMEN: There may be fatty infiltration of the liver. OSSEOUS STRUCTURES: Unremarkable. CT/CT chest w IV con IMPRESSION: Small, calcified and noncalcified pulmonary nodules. According to Fleischner guidelines, chest CT follow up as per protocol. Fleischner guidelines were followed.
[2022-09-25] MEDS: iohexoL 350 MG/ML 100 ML INFUS..BTL IV (16:12)
== END 2022-09-25 15:46 | disposition home or self-care (01) ==
LOC: HO.CT 15:45
PROVIDERS: Visit Provider Internal Medicine
DX: C73 Malignant neoplasm of thyroid gland (principal)
CPT/HCPCS: 71260; Q9967

== ENCOUNTER → 2022-09-26 06:05 | Day surgery (SDC) | payer OTHER, MEDICAID, SELFPAY ==
--- NOTE | 2022-09-24 12:03 | P.CONAN_ITS ---
HPI - Anesthesia Eval Consult details Narrative: 61yo F for Lumbar Spinal Cord Stimulation Implant s/p trial 09/11/22 with MAC [facility] Active Problems Active Problems: All Active Problems (Updated 09/10/22 @ 07:51 by Yumiko Tan RN) Controlled diabetes mellitus with diabetic polyneuropathy (Acute) Paronychia (Acute) Non-cardiac chest pain (Acute) De Quervain's tenosynovitis, left (Acute) Nail deformity (Acute) Patellofemoral arthritis of left knee (Acute) Patellofemoral arthritis of right knee (Acute) Hematuria (Acute) Pelvic pain in female (Acute) Chronic pelvic pain in female (Acute) Dysuria (Acute) Dyspareunia in female (Acute) Myofascial pain (Acute) Atrophic vaginitis (Acute) Effusion, right knee (Acute) Right knee pain (Acute) Osteoarthritis of right knee (Acute) CRPS (complex regional pain syndrome type I) (Acute) History of thyroid cancer (Acute) Hematuria (Acute) Mass of spine (Acute) Type 2 diabetes mellitus with polyneuropathy (Acute) DM2 (diabetes mellitus, type 2) (Acute) Constipation by delayed colonic transit (Acute) Gastritis (Acute) Hypertension (Acute) Dyslipidemia (Acute) Post-surgical hypothyroidism (Acute) Primary thyroid cancer (Acute) Vitamin D deficiency (Acute) Past Medical History Medical History Blood in urine Constipation by delayed colonic transit Dyslipidemia Gastritis Hematuria Hypertension Mass of spine Post-surgical hypothyroidism Primary thyroid cancer Thyroid cancer Tubular adenoma of colon Type 2 diabetes mellitus with polyneuropathy Vitamin D deficiency Family History Family History Father Stroke Heart attack Mother Diabetes mellitus Family/Other Family history of cancer Sister Stomach cancer Family/Other Thyroid cancer Family history of problems with anesthesia: No Surgical History Surgical History History of back surgery History of esophagogastroduodenoscopy (EGD) Hx of section Hx of colonoscopy Hx of hernia repair Hx of hysterectomy Hx of thyroidectomy History of Problems with Anesthesia: No Social History Social History Household Members: Spouse, Children and Other Alcohol intake: never Patient Tobacco Use Status: Former Tobacco user Second Hand Smoke Exposure: No Sexual orientation: Straight/Heterosexual Gender identity: Female Meds Allergies Allergy/AdvReac Type Severity Reaction Status Date / Time Penicillins [PENICILLINS] Allergy Unknown HIVES Verified 09/23/22 15:50 Home Medications Medication Instructions Recorded Confirmed Last Taken Type losartan 50 mg tablet 50 mg PO BID 10/10/20 09/05/22 01/24/21 09:00 History metoprolol succinate 50 mg 50 mg PO DAILY 02/06/21 09/08/22 Unknown History tablet,extended release 24 hr loteprednol etabonate 0.5 % eye 1 drp ophthalmic (eye) QID 05/22/21 09/05/22 Unknown History drops,suspension multivitamin 1 tab PO QAM 05/22/21 09/08/22 Unknown History tolterodine 2 mg capsule,extended 2 mg PO DAILY 12/20/21 09/08/22 Unknown History release 24 hr atorvastatin 80 mg tablet 80 mg PO BEDTIME 04/21/22 09/08/22 Unknown History hydrochlorothiazide 12.5 mg tablet 12.5 mg PO QAM 04/21/22 09/08/22 Unknown History albuterol sulfate 90 mcg/actuation 2 puff inhalation Q4-6H PRN 09/05/22 09/08/22 Unknown History aerosol inhaler (ProAir HFA) Wheezing fluticasone propionate 220 1 puff inhalation BID 09/05/22 09/08/22 Unknown History mcg/actuation HFA aerosol inhaler (Flovent HFA) linagliptin 5 mg tablet (Tradjenta) 1 tab PO QAM 09/05/22 09/08/22 Unknown History meloxicam 15 mg tablet 1 tab PO DAILY 09/05/22 09/05/22 Unknown History nortriptyline 25 mg capsule 1 cap PO BEDTIME 09/05/22 09/08/22 Unknown History Exam Exam Date and Time: September 24, 2022 1203 Pertinent Lab Results Pertinent Lab Results: Laboratory Tests 09/24/22 08:38 BUN 12 Creatinine 0.70 Assessment and Plan Assessment Anesthesia Assessment: Chart Reviewed Final Anesthetic Review Family History of Problems with Anesthesia: No History of Problems with Anesthesia: No
[2022-09-26 06:37] VITALS: BMI 25.6
[2022-09-26 07:05] VITALS: BP 142/74; PULSE 100; RESP 16; TEMP 36.8; O2SAT 97
[2022-09-26 07:10] LABS: Glucose, Whole Blood 160 mg/dL (60-115)
[2022-09-26 07:16] LABS: COVID-19 Test Negative (Negative)
--- NOTE | 2022-09-26 07:48 | PC.NURSE ---
BOXING INSPECTOR USED BY THE BEDSIDE AND EXPLAINED BY ANESTHESIA AND MYSELF THE REASON FOR HER CANCELATION. I WILL CALL PATIENT WITH THE REMAINING RESULTS FROM HER RSV/FLU SWAB. COVID WAS NEGATIVE.
[2022-09-26 07:51] LABS: Influenza A PCR NEGATIVE (Negative); Influenza B PCR NEGATIVE (Negative); Resp Syncy Virus RNA Qual PCR NEGATIVE (Negative); SARS COV2 PCR INHOUSE NEGATIVE (Negative)
== END ==
PROVIDERS: Anesthesiology; PCP Internal Medicine; Visit Provider Anesthesiology
DX: G90.50 Complex regional pain syndrome I, unspecified (principal); Z53.09 Procedure and treatment not carried out because of other contraindication; M17.11 Unilateral primary osteoarthritis, right knee; R69 Illness, unspecified; Z20.822 Contact with and (suspected) exposure to COVID-19
CPT/HCPCS: 0241U; 82947; 87635; J0330; J1100; J2250; J2405; J3010

== ENCOUNTER 2022-10-24 10:52 | Day surgery (SDC) | payer OTHER, MEDICAID, SELFPAY ==
--- NOTE | 2022-10-23 10:10 | HO.ANESPROP2 ---
HPI - Anesthesia Eval Consult details Narrative: 61yo F for Lumbar Spinal Cord Stimulation Implant (right lumbar position) s/p trial 09/12/22 with MAC [facility] Active Problems Active Problems: All Active Problems (Updated 10/16/22 @ 14:48 by Shalini Roy DO) Pulmonary nodules (Acute) Controlled diabetes mellitus with diabetic polyneuropathy (Acute) Paronychia (Acute) Non-cardiac chest pain (Acute) De Quervain's tenosynovitis, left (Acute) Nail deformity (Acute) Patellofemoral arthritis of left knee (Acute) Patellofemoral arthritis of right knee (Acute) Hematuria (Acute) Pelvic pain in female (Acute) Chronic pelvic pain in female (Acute) Dysuria (Acute) Dyspareunia in female (Acute) Myofascial pain (Acute) Atrophic vaginitis (Acute) Effusion, right knee (Acute) Right knee pain (Acute) Osteoarthritis of right knee (Acute) CRPS (complex regional pain syndrome type I) (Acute) History of thyroid cancer (Acute) Hematuria (Acute) Mass of spine (Acute) Type 2 diabetes mellitus with polyneuropathy (Acute) DM2 (diabetes mellitus, type 2) (Acute) Constipation by delayed colonic transit (Acute) Gastritis (Acute) Hypertension (Acute) Dyslipidemia (Acute) Post-surgical hypothyroidism (Acute) Primary thyroid cancer (Acute) Vitamin D deficiency (Acute) Past Medical History Medical History Blood in urine Constipation by delayed colonic transit Dyslipidemia Gastritis Hematuria Hypertension Mass of spine Post-surgical hypothyroidism Primary thyroid cancer Pulmonary nodules Thyroid cancer Tubular adenoma of colon Type 2 diabetes mellitus with polyneuropathy Vitamin D deficiency Family History Family History Father Stroke Heart attack Mother Diabetes mellitus Family/Other Family history of cancer Sister Stomach cancer Family/Other Thyroid cancer Family history of problems with anesthesia: No Surgical History Surgical History History of back surgery History of esophagogastroduodenoscopy (EGD) Hx of section Hx of colonoscopy Hx of hernia repair Hx of hysterectomy Hx of thyroidectomy History of Problems with Anesthesia: No Social History Social History Household Members: Spouse, Children and Other Alcohol intake: never Patient Tobacco Use Status: Former Tobacco user Tobacco use type: Cigarette Second Hand Smoke Exposure: No Advance Directives: No Advance Directives Information Provided: No Sexual orientation: Straight/Heterosexual Gender identity: Female Meds Allergies Allergy/AdvReac Type Severity Reaction Status Date / Time Penicillins [PENICILLINS] Allergy Unknown HIVES Verified 09/23/22 15:50 Home Medications Medication Instructions Recorded Confirmed Last Taken Type losartan 50 mg tablet 50 mg PO BID 10/10/20 09/05/22 01/24/21 09:00 History metoprolol succinate 50 mg 50 mg PO DAILY 02/06/21 09/08/22 Unknown History tablet,extended release 24 hr loteprednol etabonate 0.5 % eye 1 drp ophthalmic (eye) QID 05/22/21 09/05/22 Unknown History drops,suspension multivitamin 1 tab PO QAM 05/22/21 09/08/22 Unknown History tolterodine 2 mg capsule,extended 2 mg PO DAILY 12/20/21 09/08/22 Unknown History release 24 hr atorvastatin 80 mg tablet 80 mg PO BEDTIME 04/21/22 09/08/22 Unknown History hydrochlorothiazide 12.5 mg tablet 12.5 mg PO QAM 04/21/22 09/08/22 Unknown History albuterol sulfate 90 mcg/actuation 2 puff inhalation Q4-6H PRN 09/05/22 09/08/22 Unknown History aerosol inhaler (ProAir HFA) Wheezing fluticasone propionate 220 1 puff inhalation BID 09/05/22 09/08/22 Unknown History mcg/actuation HFA aerosol inhaler (Flovent HFA) linagliptin 5 mg tablet (Tradjenta) 1 tab PO QAM 09/05/22 09/08/22 Unknown History meloxicam 15 mg tablet 1 tab PO DAILY 09/05/22 09/05/22 Unknown History nortriptyline 25 mg capsule 1 cap PO BEDTIME 09/05/22 09/08/22 Unknown History Exam Exam Date and Time: October 23, 2022 1010 Pertinent Lab Results Pertinent Lab Results: Laboratory Tests 02/02/22 02/02/22 08/11/22 08:45 08:45 09:47 WBC 6.2 Hgb 11.0 L Hct 34.6 L Plt Count 257 Sodium 139 Potassium 4.1 Chloride 103 Carbon Dioxide 26 Laboratory Tests 09/24/22 08:38 BUN 12 Creatinine 0.70 Assessment and Plan Assessment Anesthesia Assessment: Chart Reviewed Final Anesthetic Review Family History of Problems with Anesthesia: No History of Problems with Anesthesia: No
[2022-10-24] VITALS (7 sets, daily range): BP systolic 126–158; BP diastolic 76–89; PULSE 94–104; RESP 10–16; TEMP 36.6–36.9; O2SAT 96–100; BMI 25.6
--- NOTE | ~2022-10-24 | FL_ITS ---
EXAMINATION: XR FLUOROSCOPY WITH IMAGES CLINICAL INFORMATION: Low back pain. Lumbar spine stimulator implant. COMPARISON: Fluoroscopic spot views 09/11/2022, MR lumbar spine 05/01/2022 TECHNIQUE: Fluoroscopy Supervised By: Dr. Jcarlos Gee. Fluoroscopy Time: 0.5 minutes. Cumulative Dose: 10.8 mGy. DAP: 2.96 Gycm2. Images: 2. FINDINGS: There is spinal stimulator leads seen ascending the posterior right spinal canal. Tip is at L1-L2. There is no kinking or defect in the lead. FL/FL guidance in OR IMPRESSION: Fluoroscopy for pain management procedure.
[2022-10-24] MEDS: Lactated Ringers 1,000 ML 100 ML IVCONT (11:42)
[2022-10-24 11:56] LABS: Glucose, Whole Blood 108 mg/dL (60-115)
--- NOTE | 2022-10-24 15:56 | MHC.SHP ---
Pre-Procedural Eval Section A Date of Service: 10/24/22 The patient is an INPATIENT: No Changes since office visit: Yes Patient answered all questions The History & Physical has been completed within 30 days and I have reviewed it.: No Section B Chief Complaint: Complex regional pain syndrome I,unilateral osteo Details of Present Illness: CRPS type 1 right lower extremity Relevant Family History (Specify if Yes): No Relevant Social History: None Present Medications: see Short Stay Collaborative assessment Medical History: No relevant PMH History of Previous Operations: No relevant previous surgery Allergies: Allergies Allergy/AdvReac Type Severity Reaction Status Date / Time Penicillins [PENICILLINS] Allergy Unknown HIVES Verified 09/23/22 15:50 Review of Systems Sugical H&P ROS: Negative: Constitution, Cardiovascular, Respiratory, Neurological, Psychiatric, Hem-Onc, Allergic/Immunologic, Gastrointestinal, Genitourinary, Musculoskeletal, Integumentary, Endocrine and Eyes/Ears/Nose/Throat Exam Surgical H&P Exam: Normal: HEENT, Normal: Heart, Normal: Lungs, Normal: Extremities, Normal: Abdomen, Normal: Skin and Normal: Neurological Plan Diagnosis/Plan: Unchanged I have reviewed the history and physical and performed a pertinent physical examination on my patient. No changes have occurred unless specified.
--- NOTE | 2022-10-24 15:57 | HO.ANESPROP2 ---
[facility] Active Problems Active Problems: All Active Problems (Updated 10/16/22 @ 14:48 by Shalini Roy DO) Pulmonary nodules (Acute) Controlled diabetes mellitus with diabetic polyneuropathy (Acute) Paronychia (Acute) Non-cardiac chest pain (Acute) De Quervain's tenosynovitis, left (Acute) Nail deformity (Acute) Patellofemoral arthritis of left knee (Acute) Patellofemoral arthritis of right knee (Acute) Hematuria (Acute) Pelvic pain in female (Acute) Chronic pelvic pain in female (Acute) Dysuria (Acute) Dyspareunia in female (Acute) Myofascial pain (Acute) Atrophic vaginitis (Acute) Effusion, right knee (Acute) Right knee pain (Acute) Osteoarthritis of right knee (Acute) CRPS (complex regional pain syndrome type I) (Acute) History of thyroid cancer (Acute) Hematuria (Acute) Mass of spine (Acute) Type 2 diabetes mellitus with polyneuropathy (Acute) DM2 (diabetes mellitus, type 2) (Acute) Constipation by delayed colonic transit (Acute) Gastritis (Acute) Hypertension (Acute) Dyslipidemia (Acute) Post-surgical hypothyroidism (Acute) Primary thyroid cancer (Acute) Vitamin D deficiency (Acute) Past Medical History Medical History (Updated 10/16/22 @ 14:48 by Shalini Roy DO) Blood in urine Constipation by delayed colonic transit Dyslipidemia Gastritis Hematuria Hypertension Mass of spine Post-surgical hypothyroidism Primary thyroid cancer Pulmonary nodules Thyroid cancer Tubular adenoma of colon Type 2 diabetes mellitus with polyneuropathy Vitamin D deficiency Family History Family History Father Stroke Heart attack Mother Diabetes mellitus Family/Other Family history of cancer Sister Stomach cancer Family/Other Thyroid cancer Family history of problems with anesthesia: No Surgical History Surgical History History of back surgery History of esophagogastroduodenoscopy (EGD) Hx of section Hx of colonoscopy Hx of hernia repair Hx of hysterectomy Hx of thyroidectomy History of Problems with Anesthesia: No Social History Social History Household Members: Spouse, Children and Other Alcohol intake: never Patient Tobacco Use Status: Former Tobacco user Tobacco use type: Cigarette Second Hand Smoke Exposure: No Use of substances other than those prescribed or required for medical reasons: No Are you DNR?: No Advance Directives: No Advance Directives Information Provided: Yes Sexual orientation: Straight/Heterosexual Gender identity: Female Meds Allergies Allergy/AdvReac Type Severity Reaction Status Date / Time Penicillins [PENICILLINS] Allergy Unknown HIVES Verified 09/23/22 15:50 Active Medications: Current Medications Lactated Ringer's (Lr) 1,000 mls @ 100 mls/hr IVCONT .Q10H JUAN Last Admin: 10/24/22 11:42 Dose: 100 mls/hr Home Medications Medication Instructions Recorded Confirmed Last Taken Type losartan 50 mg tablet 50 mg PO BID 10/10/20 09/05/22 01/24/21 09:00 History metoprolol succinate 50 mg 50 mg PO DAILY 02/06/21 09/08/22 Unknown History tablet,extended release 24 hr loteprednol etabonate 0.5 % eye 1 drp ophthalmic (eye) QID 05/22/21 09/05/22 Unknown History drops,suspension multivitamin 1 tab PO QAM 05/22/21 09/08/22 Unknown History tolterodine 2 mg capsule,extended 2 mg PO DAILY 12/20/21 09/08/22 Unknown History release 24 hr atorvastatin 80 mg tablet 80 mg PO BEDTIME 04/21/22 09/08/22 Unknown History hydrochlorothiazide 12.5 mg tablet 12.5 mg PO QAM 04/21/22 09/08/22 Unknown History albuterol sulfate 90 mcg/actuation 2 puff inhalation Q4-6H PRN 09/05/22 09/08/22 Unknown History aerosol inhaler (ProAir HFA) Wheezing fluticasone propionate 220 1 puff inhalation BID 09/05/22 09/08/22 Unknown History mcg/actuation HFA aerosol inhaler (Flovent HFA) linagliptin 5 mg tablet (Tradjenta) 1 tab PO QAM 09/05/22 09/08/22 Unknown History meloxicam 15 mg tablet 1 tab PO DAILY 09/05/22 09/05/22 Unknown History nortriptyline 25 mg capsule 1 cap PO BEDTIME 09/05/22 09/08/22 Unknown History Exam Exam Date and Time: October 24, 2022 1557 Height,Weight and Vital Signs: Height 5 ft 5 in Weight 69.853 kg Last Vital Signs Temp 98.5 F 10/24/22 11:41 Pulse 94 10/24/22 11:41 Resp 14 10/24/22 11:41 BP 126/76 10/24/22 11:41 Pulse Ox 96 10/24/22 11:41 O2 Del Method 10/24/22 11:41 Pertinent Lab Results Pertinent Lab Results: Laboratory Tests 10/24/22 11:52 POC Glucose 108 Airway Mallampati Class: II TM Dist: >3cm Neck ROM: Full Assessment and Plan Assessment Anesthesia Assessment: Anesthesia Plan Discussed and Chart Reviewed Final Anesthetic Review Family History of Problems with Anesthesia: No History of Problems with Anesthesia: No NPO: Yes ASA Class: III Final Preanesthetic Review: No Changes in Pt Med Stat, Meds/Allgs Chart Reviewed, Consent Obtained/Reviewed and Anes Risks/Benef Reviewed Patient Risk: Intermediate Procedure Risk: Low Anesthetic Plan Anesthetic Plan: GA Disposition: Standard PACU
--- NOTE | 2022-10-24 18:20 | P.BOP_ITS ---
Brief Operative Note Date of Service: 10/24/22 Pre-op diagnosis: Intractable pain in the right knee Complex regional pain syndrome of the right lower extremity. Post-op diagnosis: same Procedure: Implantation of lumbar [employer] spinal cord stimulator waverider battery and 16 contact epidural lead. Surgeon: Jcarlos Gee MD Anesthesia: GETA Was an [employer]er Blasting used for this Procedure?: No Estimated blood loss (mL): 16 Pathology: none sent Condition: stable Disposition: PACU
--- NOTE | 2022-10-24 18:22 | W.PM.OPN ---
Operative Note Operative Note Date of Service: 10/24/22 Narrative: Implantation of spinal cord stimulator [employer] lumbar position on the daniel Alejo is very pleasant 61 years old female tho came today into the operating room for implantation of spinal cord stimulator [employer] for the treatment of d Complex regional pain syndrome of the? rightt lower extremity, ?Preoperatively patient received ? clindamycin 600 mg approximately 10 minutes before the procedure. After obtaining informed consent the patient was brought to the operating room, she was positioned supine on the operating table,?? [employer] monitors were applied and p general endotracheal anesthesia was induced. After that patient was transferred on the operating table prone all pressure points were protected. ?Time-out was performed delineating correct site, side, the nature of the procedure, patient's allergy, preoperative antibiotic if needed.? All operating room staff was participating in OR time-out procedure. Patient's entire back was prepped with Chloraprep twice and draped with full body fenestrated laparoscopy drape including Ioban film.? Sterilely draped C-arm was brought over operating field and square picture of the ? L4-5 vertebra and sacral bone? were demonstrated on the screen.? ?Attention FIRST? was concentrated on the L5-S1 epidural interspace.? the location of the of the area for inches below the upper margin of the right sacral ala was found on the skin using C-arm.? Local anaesthesia was injected in the projection of S1 foramina on the right 4.5 cm long vertical paramedian. Straight paramedian incision was performed, wound was widened using wean Lainer retractor. Thorough hemostasis was performed using electric cautery as well as intermittent 2-0 sutures. After that introducer needle for 16 gauge electrode with split core outer sheeth was brought over the operating table. It is inserted into the vertebral fascia and advanced to were the L5-S1 epidural space under anterior posterior and lateral views. Loss of resistance to air technique was used to locate epidural space. When loss of resistance was felt the epidural catheter with pre mounted anchoring device was brought on the operating field. The needle was removed from split core outer sheath and epidural stimulating catheter was inserted into the she has and advanced to were the L3-L4 and L5 foramina. The lateral view demonstrated the position of the electrode in the anterior epidural space. The position of the electrode on the anterior posterior view was as close to the foramina as as possible. Impedance was checked? and it was found to be satisfactory.? Lateral picture demonstrated epidural lead sitting across L3-L4 and L4-5 foramina. Split core outer sheath was divided and epidural catheter was held by the DeBakey forceps. This plate core was removed care was taken to keep the epidural catheter in place. After that anchoring device was advanced to the prevertebral fascia and sutured to prevertebral fascia with 2 0 0 Tycron sutures. The anchoring screw was tied until 3 clicks were heard. The wound was irrigated with normal saline containing vancomycin and then packed with 4 x 4 soaked in vancomycin containing normal saline. After that attention was concentrated in the right iliac fossa were decision was made to place the battery. 3 cm below the top of the iliac crest horizontal incision was performed 4.5 cm long. Thorough hemostasis was obtained, the wound was widened and deepened using electrocautery device and dull dissection. After that tunneling device was used to dislodge the stimulating electrodes distal ends to the lateral wound. The stimulating wave specifications writer battery was brought on the operating field, 2 anchoring sutures were applied in the central superior and medial superior corners of the wound. The anchoring sutures were connected to the orifices on the body of the battery and the battery was connected to the stimulating epidural lead. Impedance was satisfactory. The battery was dislodged into the wound with the stimulating epidural catheter behind the body of the battery. Anchoring sutures were tied. The wounds were irrigated again with normal saline containing vancomycin, after that they were closed using 0 Polysorb sutures. To Polysorb sutures were used to approximate the level of the skin and becky were applied to the skin level. Bacitracin ointment was applied to the level of these incisions. Sterile dressing using 4 x 4 and Tegaderm was applied. The patient was transferred to the bed supine awaken extubated and transferred stable to PACU where recovered uneventfully. She demonstrated good coverage of the pain in the postoperative stimulation.
[2022-10-24] MEDS: oxyCODONE HCl Immed Release 5 MG TABLET 10 MG PO (18:41)
[2022-10-24] MEDS: Acetaminophen 325 MG TABLET 650 MG PO (19:44)
== END 2022-10-24 19:45 | disposition home or self-care (01) ==
PROVIDERS: PCP Internal Medicine; Visit Provider Anesthesiology
PROC: (CPT 63685; principal; 2022-10-24 12:20)
DX: G90.521 Complex regional pain syndrome I of right lower limb (principal); M17.11 Unilateral primary osteoarthritis, right knee; E11.9 Type 2 diabetes mellitus without complications; I10 Essential (primary) hypertension; Z79.899 Other long term (current) drug therapy; Z88.0 Allergy status to penicillin
CPT/HCPCS: 63685; 63650; 82947; C1713; C1778; C1787; C1820; J1100; J2250; J2405; J2795; J3010; J3370

== ENCOUNTER 2022-10-26 07:40 | Emergency (ER) | payer OTHER, MEDICAID, SELFPAY ==
[2022-10-26 07:56] VITALS: BP 139/87; PULSE 109; RESP 16; O2SAT 99; BMI 25.6
--- NOTE | 2022-10-26 08:16 | ED_ITS ---
HPI - Back Pain/Injury General Chief Complaint: Back Pain/Injury Stated Complaint: lower back pain Time Seen by Provider: 10/26/22 08:03 Source: patient Mode of arrival: ambulatory History of Present Illness HPI Narrative: 61-year-old female with a past medical history of HLD, HTN, hypothyroidism, thyroid CA, diabetes, vitamin-D deficiency, chronic regional pain syndrome s/p inflammation of spinal cord stimulator on 10/[address] Gee, presenting to the ED complaining of pain at surgical site since anesthesia wearing off on Thursday night around 22:00. Describes pain as burning, nonradiating. Has been taking Tylenol without relief. Denies injury, trauma, fall fever, numbness/ tingling, urinary incontinence / retention, abdominal pain, hematuria /dysuria MD elicited complaint: back pain Pertinent past history: back surgery Related Data Home Medications Medication Instructions Recorded Confirmed losartan 50 mg tablet 50 mg PO BID 10/10/20 09/05/22 metoprolol succinate 50 mg 50 mg PO DAILY 02/06/21 09/08/22 tablet,extended release 24 hr loteprednol etabonate 0.5 % eye 1 drp ophthalmic (eye) QID 05/22/21 09/05/22 drops,suspension multivitamin 1 tab PO QAM 05/22/21 09/08/22 tolterodine 2 mg capsule,extended 2 mg PO DAILY 12/20/21 09/08/22 release 24 hr atorvastatin 80 mg tablet 80 mg PO BEDTIME 04/21/22 09/08/22 hydrochlorothiazide 12.5 mg tablet 12.5 mg PO QAM 04/21/22 09/08/22 albuterol sulfate 90 mcg/actuation 2 puff inhalation Q4-6H PRN 09/05/22 09/08/22 aerosol inhaler (ProAir HFA) Wheezing fluticasone propionate 220 1 puff inhalation BID 09/05/22 09/08/22 mcg/actuation HFA aerosol inhaler (Flovent HFA) linagliptin 5 mg tablet (Tradjenta) 1 tab PO QAM 09/05/22 09/08/22 meloxicam 15 mg tablet 1 tab PO DAILY 09/05/22 09/05/22 nortriptyline 25 mg capsule 1 cap PO BEDTIME 09/05/22 09/08/22 Previous Rx's Medication Instructions Recorded blood sugar diagnostic (FreeStyle #100 ea 07/09/21 Lite Strips) blood-glucose meter (FreeStyle #1 ea 03/12/22 Lite Meter kit) flash glucose scanning reader #1 ea 04/11/22 (FreeStyle Emile 2 Laotto) lidocaine 5 % topical patch 1 patch topical DAILY PRN pain 30 05/26/22 days #30 ea omega-3 fatty acids-fish oil 340 1 cap PO BEDTIME 30 days #30 caps 08/05/22 mg-1,000 mg capsule pantoprazole 40 mg tablet,delayed 40 mg PO DAILY #90 tabs 09/02/22 release levothyroxine 137 mcg tablet 137 mcg PO DAILY 30 days #30 tabs 09/08/22 metformin 500 mg tablet,extended 1,000 mg PO BID #360 tabs 09/11/22 release 24 hr methylcellulose (laxative) 500 mg 500 mg PO DAILY #90 tabs 09/23/22 tablet (Citrucel) oxycodone-acetaminophen 5 mg-325 1 tab PO Q8H PRN pain (scale score 10/26/22 mg tablet (Percocet) 7-10) 3 days #9 tabs Allergies Allergy/AdvReac Type Severity Reaction Status Date / Time Penicillins [PENICILLINS] Allergy Unknown HIVES Verified 09/23/22 15:50 Review of Systems Review of Systems: Constitutional: No Fever, No Chills, No Fatigue, No Malaise ENT/Mouth: No Ear Pain, No Nasal Congestion, No sore throat, No Rhinorrhea, No Swallowing Difficulty Eyes: No Eye Pain, No Swelling, No Redness, No Vision Changes Cardiovascular: No Chest Pain, No SOB, No Edema, No Palpitations Respiratory: No Cough, No Sputum, No Dyspnea Gastrointestinal: No Nausea, No Vomiting, No Diarrhea, No Constipation, No Abdominal pain Genitourinary: No Dysuria, No Urinary Frequency, No Hematuria, No Urinary Incontinence/retention, No Flank Pain Musculoskeletal: + joint pain, No Myalgias, No Joint Swelling Skin: No Skin Lesions, No rash Neuro: No Weakness, No Numbness, No Paresthesias Yes all other systems are reviewed and are negative Constitutional: Constitutional: Reports as per [facility] Past Medical History Attestation statement: The following information was validated with the patient. Medical History Blood in urine Constipation by delayed colonic transit Dyslipidemia Gastritis Hematuria Hypertension Mass of spine Post-surgical hypothyroidism Primary thyroid cancer Pulmonary nodules Thyroid cancer Tubular adenoma of colon Type 2 diabetes mellitus with polyneuropathy Vitamin D deficiency Surgical History History of back surgery History of esophagogastroduodenoscopy (EGD) Hx of section Hx of colonoscopy Hx of hernia repair Hx of hysterectomy Hx of thyroidectomy Family History Family History Father Stroke Heart attack Mother Diabetes mellitus Family/Other Family history of cancer Sister Stomach cancer Family/Other Thyroid cancer Social History Social History Household Members: Spouse, Children and Other Alcohol intake: never Patient Tobacco Use Status: Former Tobacco user Tobacco use type: Cigarette Second Hand Smoke Exposure: No Advance Directives: No Advance Directives Information Provided: No Sexual orientation: Straight/Heterosexual Gender identity: Female Physical Exam Vital Signs: Vital Signs: Last Vital Signs Pulse 109 H 10/26/22 07:56 Resp 16 10/26/22 07:56 BP 139/87 10/26/22 07:56 Pulse Ox 99 10/26/22 07:56 O2 Del Method 10/26/22 07:56 BMI result Body Mass Index 25.6 Const: Other: In pain, tearful General: cooperative and no acute distress Orientation/consciousness: patient oriented x3 Limitations: no limitations HEENT: Head: Yes normal to inspection and Yes atraumatic Ears: hearing grossly normal bilaterally General nose exam: Normal external nose present Face and sinus: Yes normal facial exam Eyes: General: appearance normal, both eyes and all related structures EOM: EOMs intact bilaterally Neck: Neck: Yes normal visual inspection and Yes no meningeal signs Resp: Effort & Inspection: normal respiratory effort and no respiratory distress Auscultation: clear to auscultation bilaterally Cardio: Rate: regular rate Heart sounds: S1 normal heart sound present and S2 normal heart sound present GI: Inspection: Yes normal to inspection Palpation (GI): Soft to palpation, nontender, no guarding and not rigid : General: Yes no CVA tenderness Back/Spine/Pelvis: Other: No midline thoracic/lumbar spinous tenderness/step-off or deformity. Dressing clean, dry and intact to right lower lumbar region. No erythema/drainage. No bleeding Back: no CVA tenderness Skin: Rashes: no rashes Wounds: no wounds Neuro: Other: Strength intact throughout. No saddle anesthesia. Sensation intact to light touch. Neurovascular intact distally General: patient oriented x3, gait normal, tone normal, moves all extremities and no meningeal signs Gait exam (Neuro): Normal gait present Extrem: General: Yes normal to inspection Course Course Course Narrative: -Spoke with pain management Dr. Gee who reports pain is to be expected, patient was sent home with only Tylenol as she refused narcotics. Dr. Gee recommended narcotics x3 days. -907-- patient with symptomatic improvement, appears more comfortable after p.o. oxycodone and Tylenol given in the ED Results discussed with patient including worrisome signs and symptoms and strict return precautions, and when to return to the emergency department. They verbalized understanding and feel safe for discharge at this time. Medications Administered Discontinued Medications Generic Name Dose Route Start Last Admin Trade Name Iliana PRN Reason Stop Dose Admin Acetaminophen 650 mg 10/26/22 08:18 10/26/22 08:36 Acetaminophen 325 Mg Tablet PO 10/26/22 08:19 650 mg ONCE ONE Administration Ondansetron HCl 4 mg 10/26/22 08:18 10/26/22 08:37 Ondansetron Odt 4 Mg Tab.Rapdis TRANSLINGU 10/26/22 08:19 4 mg ONCE ONE Administration Oxycodone HCl 5 mg 10/26/22 08:18 10/26/22 08:37 Oxycodone Hcl Immed Release 5 Mg Tablet PO 10/26/22 08:19 5 mg ONCE ONE Administration Medical Decision Making Medical Decision Making [facility] Narrative: 61-year-old female with a past medical history of HLD, HTN, hypothyroidism, thyroid CA, diabetes, vitamin-D deficiency, chronic regional pain syndrome s/p inflammation of spinal cord stimulator on 10/[address] Gee, presenting to the ED complaining of pain at surgical site since anesthesia wearing off on Thursday night around 22:00. on exam tachycardic likely from pain, no midline spinous tenderness throughout, physical exam as above with clean dry and intact dressing over surgical area, no evidence infection/ drainage or bleeding. No red flag symptoms. Concern for postsurgical pain vs ? surgical complication. No evidence of infection plan: Pain control, consult Dr. Gee Differential Diagnoses: Differential diagnosis ( as above) Discussion of management with other physician/healthcare provider/other source (e.g., hospitalist, websphere commerce consultant, behavioral health): Discussion w/other physician/healthcare provider Management of the patient was discussed with: Leather Coverer Lab Attestation: I reviewed the patient's lab results. Discharge Plan Discharge Clinical Impression: Post-operative pain Patient Disposition: Home, Self-Care Instructions: Pain Management (ED) Additional Instructions: Your pain is to be expected postsurgical Percocet is an opiate pain medication, take only when pain is severe for the next 3 days. You can also take Tylenol at home however be aware Percocet has Tylenol mixed in do not exceed 4 g of Tylenol in 1 day If symptoms persist or worsen, pain becomes unbearable, you developed urinary retention or incontinence, or weakness return to the ED please have close follow-up with her surgeon Saha dolor es de esperar posquir?rgico Percocet es un analg?sico opi?leather tanner, t?barakat solo cuando el dolor sea intenso earline los pr?ximos 3 d?as. Tambi?n puede jumana Tylenol en casa, sin embargo, tenga en cuenta que Percocet tiene Tylenol mezclado, no exceda los 4 g de Tylenol en 1 d?a. Si los s?ntomas persisten o empeoran, el dolor se vuelve insoportable, desarroll? retenci?n urinaria o incontinencia, o debilidad, regrese al servicio de urgencias. por favor tenga un seguimiento cercano con saha cirujano Prescriptions: New oxycodone-acetaminophen [Percocet] 5-325 mg tablet 1 tab PO Q8H PRN (Reason: pain (scale score 7-10)) 3 Days Qty: 9 0RF Rx Instructions: Partial Fill upon patient request. No Action (DME) FreeStyle Lite Strips Strip See Rx Instructions .ROUTE .MEDSUPPLY Qty: 100 10RF Rx Instructions: Test blood glucose twice per day (DME) FreeStyle Emile 2 Laotto Misc See Rx Instructions .ROUTE .MEDSUPPLY Qty: 1 0RF Rx Instructions: As directed omega-3 fatty acids-fish oil 340-1,000 mg capsule 1 cap PO BEDTIME 30 Days Qty: 30 6RF pantoprazole 40 mg tablet,delayed release (DR/EC) 40 mg PO DAILY Qty: 90 2RF Rx Instructions: take one tablet half an hour before breakfast metformin 500 mg tablet extended release 24 hr 1,000 mg PO BID Qty: 360 1RF meloxicam 15 mg tablet 1 tab PO DAILY nortriptyline 25 mg capsule 1 cap PO BEDTIME fluticasone propionate [Flovent HFA] 220 mcg/actuation HFA aerosol inhaler 1 puff INHALATION BID albuterol sulfate [ProAir HFA] 90 mcg/actuation HFA aerosol inhaler 2 puff INHALATION Q4-6H PRN (Reason: Wheezing) Tradjenta 5 mg tablet 1 tab PO QAM metoprolol succinate 50 mg tablet extended release 24 hr 50 mg PO DAILY loteprednol etabonate 0.5 % drops,suspension 1 drp ophthalmic (eye) QID multivitamin Tablet 1 tab PO QAM losartan 50 mg tablet 50 mg PO BID tolterodine 2 mg capsule,extended release 24hr 2 mg PO DAILY hydrochlorothiazide 12.5 mg tablet 12.5 mg PO QAM atorvastatin 80 mg tablet 80 mg PO BEDTIME lidocaine 5 % adhesive patch,medicated 1 patch topical DAILY PRN (Reason: pain) 30 Days Qty: 30 0RF Rx Instructions: leave on most painful area for up to 12 hrs (DME) blood-glucose meter [FreeStyle Lite Meter] Kit See Rx Instructions .ROUTE .MEDSUPPLY Qty: 1 0RF Rx Instructions: As directed levothyroxine 137 mcg tablet 137 mcg PO DAILY 30 Days Qty: 30 3RF Citrucel 500 mg tablet 500 mg PO DAILY Qty: 90 2RF Rx Instructions: take it with full glass of water Referrals: Jcarlos Gee MD [Physician] - Interventions: ED Discharge Assessment Last Done: 10/26/22 09:28 Discharge Date/Time: 10/26/22 09:30 Print Language: Indonesian
--- NOTE | 2022-10-26 08:16 | PC.NURSE ---
pt reports via bottle washer that her pain is post op and has not changed since 10p Thursday night. Seen by DAY Farmer. Plan is to communicate with surgeon and manage pain accordingly. Pt in room with , still tearful. Aware of plan.
[2022-10-26] MEDS: Acetaminophen 325 MG TABLET 650 MG PO (08:36)
[2022-10-26] MEDS: oxyCODONE HCl Immed Release 5 MG TABLET PO (08:37)
[2022-10-26] MEDS: Ondansetron ODT 4 MG TAB.RAPDIS TRANSLINGU (08:37)
== END 2022-10-26 09:30 | disposition home or self-care (01) ==
PROVIDERS: Emergency Provider Emergency Medicine Emergency Medical Services; PCP Internal Medicine
DX: M54.50 Low back pain, unspecified (principal); G89.18 Other acute postprocedural pain; I10 Essential (primary) hypertension; E11.9 Type 2 diabetes mellitus without complications; Z79.84 Long term (current) use of oral hypoglycemic drugs; Z87.891 Personal history of nicotine dependence; Z79.899 Other long term (current) drug therapy
CPT/HCPCS: 99283

== ENCOUNTER → 2022-11-06 09:02 | Outpatient (BNVA) | payer OTHER, MEDICAID, SELFPAY | PROVIDERS: PCP Internal Medicine; Visit Provider Anesthesiology | DX: M17.11 Unilateral primary osteoarthritis, right knee (principal) ==

== ENCOUNTER → 2022-11-19 13:13 | Outpatient (BNVA) | payer OTHER, MEDICAID, SELFPAY | PROVIDERS: PCP Internal Medicine; Visit Provider Anesthesiology | DX: Z13.89 Encounter for screening for other disorder (principal) ==

== ENCOUNTER → 2022-12-01 14:32 | Outpatient (BNVA) | payer OTHER, MEDICAID, SELFPAY | PROVIDERS: PCP Internal Medicine; Visit Provider Hospitalist | DX: R91.8 Other nonspecific abnormal finding of lung field (principal) ==

== ENCOUNTER → 2022-12-15 10:22 | Outpatient (BNVA) | payer OTHER, MEDICAID, SELFPAY | PROVIDERS: PCP Internal Medicine; Visit Provider Internal Medicine | DX: E11.42 Type 2 diabetes mellitus with diabetic polyneuropathy (principal) | CPT/HCPCS: 82947; 83036 ==

== ENCOUNTER → 2022-12-22 12:51 | Outpatient (BNVA) | payer OTHER, MEDICAID, SELFPAY | PROVIDERS: PCP Internal Medicine; Visit Provider Anesthesiology | DX: Z13.89 Encounter for screening for other disorder (principal) ==

== ENCOUNTER 2023-01-07 09:28 | Outpatient (REF) | payer OTHER, MEDICAID, SELFPAY ==
--- NOTE | ~2023-01-07 | MM_ITS ---
EXAMINATION: MM SCREENING DIGITAL BREAST TOMOSYNTHESIS, BILATERAL CLINICAL INFORMATION: Screening. Asymptomatic. The lifetime risk of breast cancer based on the Tyrer-Cuzick Model is 3%. COMPARISON: Mammography: 01/01/2022, 12/19/2020, 08/17/2019 TECHNIQUE: Digital breast tomosynthesis is performed in both the craniocaudal and mediolateral oblique views along with computer-aided detection (CAD). Synthesized 2D images are generated from the tomosynthesis. FINDINGS: There are scattered areas of fibroglandular density (ACR BI-RADS breast composition Category b). There are no significant masses, abnormal calcifications, or other abnormalities. No architectural abnormality or developing density or significant change from prior studies. MM/MM tomosynthesis screening BI IMPRESSION: No mammographic evidence of malignancy. ASSESSMENT: BI-RADS 1: Negative RECOMMENDATION: Routine annual mammography screening. This patient's information was entered into a reminder system with a target due date for their next mammogram.
== END 2023-01-07 09:29 | disposition home or self-care (01) ==
LOC: HO.MAMMO 09:28
PROVIDERS: Visit Provider Internal Medicine
DX: Z12.31 Encounter for screening mammogram for malignant neoplasm of breast (principal)
CPT/HCPCS: 77063; 77067

== ENCOUNTER → 2023-01-08 13:07 | Outpatient (BNVA) | payer OTHER, MEDICAID, SELFPAY | PROVIDERS: PCP Internal Medicine; Visit Provider Surgery Vascular Surgery | DX: Z13.89 Encounter for screening for other disorder (principal) ==

== ENCOUNTER 2023-01-11 09:14 | Emergency (ER) | payer OTHER, MEDICAID, SELFPAY ==
--- NOTE | 2023-01-11 | ECG_ITS ---
Test Reason : CP Blood Pressure : / mmHG Vent. Rate : 116 BPM Atrial Rate : 116 BPM P-R Int : 154 ms QRS Dur : 072 ms QT Int : 332 ms P-R-T Axes : 072 020 069 degrees QTc Int : 461 ms Sinus tachycardia Possible Left atrial enlargement Borderline ECG When compared with ECG of 14-JAN-2021 12:19, Vent. rate has increased BY 40 BPM Referred By: Generic ED Physician Electronically Signed By:JULIANE WAYNE MD
--- NOTE | ~2023-01-11 | XR_ITS ---
EXAMINATION: XR chest 1V CLINICAL INFORMATION: Chest pain COMPARISON: December 2021 TECHNIQUE: XR chest 1V Tubes and lines: None Lungs and pleura: Both lungs are clear. Heart and mediastinum: The mediastinum is within normal limits.. Bones/soft tissue: Skeletal structures included are normal for patient's age. XR/XR chest 1V IMPRESSION: No radiographic evidence of acute cardiopulmonary disease.
--- NOTE | ~2023-01-11 | CT_ITS ---
EXAMINATION: CT abdomen pelvis w IV con CLINICAL INFORMATION: Reason for Exam epigastric/LLQ abd pain, N COMPARISON: Prior CT scan July 2022 TECHNIQUE: Multidetector volumetric imaging was performed from the superior aspect of the liver through the pubic symphysis 100 mL of Omnipaque 350 injected Sagittal and coronal reformatted images were obtained on the technologist's workstation. This CT examination was performed using dose optimization techniques as appropriate, variously including the following: *Automated exposure control *Adjustment of mA and/or kV according to patient size (this includes techniques or standardized protocols for targeted exams where dose is matched to indication/reason for exam; i.e. extremities or head) *Use of iterative reconstruction technique DLP: 386 mGy-cm FINDINGS: LOWER THORAX: Included lung bases are clear. HEPATOBILIARY: No focal hepatic lesions. No biliary ductal dilatation. GALLBLADDER: Gallbladder distended, otherwise unremarkable. SPLEEN: Spleen is normal in size. PANCREAS: No focal mass or ductal dilatation. STOMACH AND GASTROINTESTINAL TRACT: Stomach is grossly unremarkable. There is no bowel distention or thickening. No CT evidence of appendicitis. Mild diverticulosis without evidence of acute diverticulitis. ADRENALS: No adrenal nodules. KIDNEYS/URETERS: No hydronephrosis, stones or solid mass lesions. URINARY BLADDER: Partially decompressed. PELVIC VISCERA: Unremarkable PERITONEUM: No free air or fluid. LYMPH NODES: Few mildly prominent mesenteric lymph nodes right lower quadrant the short axis is less than 1 cm, there are not significantly enlarged. VASCULAR:Abdominal aorta normal in size, no aneurysm found. BONES, ABDOMINAL WALL AND SOFT TISSUES: There is a baclofen pump embedded in the subcutaneous fat posterior back the catheter of which is in the spinal central canal the tip of the level of L1 right of midline. CT/CT abdomen pelvis w IV con IMPRESSION: * No CT evidence of acute intra-abdominal process to explain patient's pain symptoms. * Mild diverticulosis without evidence of acute diverticulitis. * Few mildly prominent mesenteric lymph nodes right lower quadrant the short axis is less than 1 cm. Not significantly enlarged. No evidence of inflammation or appendicitis. * Baclofen pump embedded in the subcutaneous fat posterior back the catheter of which is in the spinal canal the tip of which is in the level of L1 right of midline.
[2023-01-11 09:19] VITALS: BP 157/88; PULSE 125; RESP 18; TEMP 37.2; O2SAT 99; BMI 25.6
[2023-01-11 09:39] LABS: MANUAL DIFF FLAG NO
--- NOTE | 2023-01-11 09:40 | ED_ITS ---
HPI - Chest Pain General Chief Complaint: Chest Pain Stated Complaint: Upper abd pain Time Seen by Provider: 01/11/23 09:36 Source: patient Mode of arrival: ambulatory History of Present Illness HPI narrative: 62-year-old female with a past medical history of HLD, HTN, hypothyroidism, thyroid CA, diabetes, vitamin-D deficiency, chronic regional pain syndrome s/p implantation of spinal cord stimulator presenting to the ED complaining of epigastric abdominal pain radiating to chest with associated nausea x4 days. Reports pain is constant. Reports decreased p.o. intake. Denies fever, chills, SOB, vomiting/diarrhea, dysuria/hematuria MD complaint: chest pain Onset (ago): day(s) Related Data Home Medications Medication Instructions Recorded Confirmed losartan 50 mg tablet 50 mg PO BID 10/10/20 12/22/22 metoprolol succinate 50 mg 50 mg PO DAILY 02/06/21 12/22/22 tablet,extended release 24 hr multivitamin 1 tab PO QAM 05/22/21 12/22/22 tolterodine 2 mg capsule,extended 2 mg PO DAILY 12/20/21 12/22/22 release 24 hr hydrochlorothiazide 12.5 mg tablet 12.5 mg PO QAM 04/21/22 12/22/22 albuterol sulfate 90 mcg/actuation 2 puff inhalation Q4-6H PRN 09/05/22 12/22/22 aerosol inhaler (ProAir HFA) Wheezing fluticasone propionate 220 1 puff inhalation BID 09/05/22 12/22/22 mcg/actuation HFA aerosol inhaler (Flovent HFA) Previous Rx's Medication Instructions Recorded blood sugar diagnostic (FreeStyle #100 ea 07/09/21 Lite Strips) blood-glucose meter (FreeStyle #1 ea 03/12/22 Lite Meter kit) flash glucose scanning reader #1 ea 04/11/22 (FreeStyle [place] 2 [place]) lidocaine 5 % topical patch 1 patch topical DAILY PRN pain 30 05/26/22 days #30 ea omega-3 fatty acids-fish oil 340 1 cap PO BEDTIME 30 days #30 caps 08/05/22 mg-1,000 mg capsule pantoprazole 40 mg tablet,delayed 40 mg PO DAILY #90 tabs 09/02/22 release metformin 500 mg tablet,extended 1,000 mg PO BID #360 tabs 09/11/22 release 24 hr methylcellulose (laxative) 500 mg 500 mg PO DAILY #90 tabs 09/23/22 tablet (Citrucel) levothyroxine 137 mcg tablet 137 mcg PO DAILY 30 days #30 tabs 12/23/22 cefuroxime axetil 250 mg tablet 250 mg PO BID 7 days #14 tabs 01/11/23 ondansetron 4 mg disintegrating 4 mg PO Q8H PRN nausea and 01/11/23 tablet vomiting #10 tabs Allergies Allergy/AdvReac Type Severity Reaction Status Date / Time Penicillins [PENICILLINS] Allergy Unknown HIVES Verified 01/08/23 13:33 Review of Systems Review of Systems: Constitutional: No Fever, No Chills, No Fatigue, No Malaise ENT/Mouth: No Hearing loss, No Ear Pain, No Nasal Congestion, No sore throat, No Rhinorrhea, No Swallowing Difficulty Eyes: No Eye Pain, No Swelling, No Redness, No Vision Changes Cardiovascular: + Chest Pain, No SOB, No Dyspnea on Exertion, No Orthopnea, No Edema, No Palpitations Respiratory: No Cough, No Sputum, No Dyspnea Gastrointestinal: + Nausea, No Vomiting, No Diarrhea, No Constipation, + Abdominal pain Genitourinary: No irregular bleeding, No Dysuria, No Urinary Frequency, No Hematuria, No Flank Pain Musculoskeletal: No joint pain, No Myalgias, No Joint Swelling Skin: No Skin Lesions, No rash Neuro: No Weakness, No Loss of Consciousness, No Dizziness, No Headache Yes all other systems are reviewed and are negative Constitutional: Constitutional: Reports as per [facility] Past Medical History Attestation statement: The following information was validated with the patient. Medical History Blood in urine Constipation by delayed colonic transit Dyslipidemia Gastritis Hematuria Hypertension Mass of spine Post-surgical hypothyroidism Primary thyroid cancer Pulmonary nodules Thymoma Thyroid cancer Toe pain Tubular adenoma of colon Type 2 diabetes mellitus with polyneuropathy Vitamin D deficiency Surgical History History of back surgery History of esophagogastroduodenoscopy (EGD) History of thymectomy Hx of section Hx of colonoscopy Hx of hernia repair Hx of hysterectomy Hx of thyroidectomy Family History Family History Father Stroke Heart attack Mother Diabetes mellitus Family/Other Family history of cancer Sister Stomach cancer Family/Other Thyroid cancer Social History Social History Household Members: Spouse, Children and Other Alcohol intake: never Patient Tobacco Use Status: Former Tobacco user Tobacco use type: Cigarette Second Hand Smoke Exposure: No Advance Directives: No Advance Directives Information Provided: Yes Sexual orientation: Straight/Heterosexual Gender identity: Female Physical Exam Vital Signs: Vital Signs: Last Vital Signs Temp 99 F 01/11/23 09:19 Pulse 98 01/11/23 11:01 Resp 14 01/11/23 11:01 BP 137/65 01/11/23 11:01 Pulse Ox 99 01/11/23 11:01 O2 Del Method 01/11/23 11:01 BMI result Body Mass Index 25.6 Const: General: cooperative, healthy appearing and no acute distress Orientation/consciousness: patient oriented x3 Limitations: no limitations HEENT: Head: Yes normal to inspection and Yes atraumatic Ears: hearing grossly normal bilaterally General nose exam: Normal external nose present Face and sinus: Yes normal facial exam Eyes: General: appearance normal, both eyes and all related structures EOM: EOMs intact bilaterally Neck: Neck: Yes normal visual inspection and Yes no meningeal signs Resp: Effort & Inspection: normal respiratory effort and no respiratory distress Auscultation: clear to auscultation bilaterally, no crackles, no rales, no rhonchi and no wheezes Cardio: Rate: regular rate Heart sounds: S1 normal heart sound present and S2 normal heart sound present GI: Inspection: Yes normal to inspection Palpation (GI): Soft to palpation, Tenderness to palpation present (GI) in the epigastrum and in the LLQ; with no rebound tenderness, no guarding and not rigid : General: Yes no CVA tenderness Back/Spine/Pelvis: Back: no CVA tenderness Skin: Rashes: no rashes Wounds: no wounds Neuro: General: patient oriented x3, tone normal and no meningeal signs Gait exam (Neuro): Normal gait present Extrem: General: Yes normal to inspection and Yes no pedal edema Course Course Course Narrative: -1200--no leukocytosis. H&H stable. Labs otherwise reassuring. Troponin negative. UA contaminated however infected > will give IV Rocephin. Remains low suspicion for severe sepsis -CXR unremarkable CT abdomen pelvis w IV con IMPRESSION: *? No CT evidence of acute intra-abdominal process to explain patient's pain symptoms. ? *? Mild diverticulosis without evidence of acute diverticulitis. ? *? Few mildly prominent mesenteric lymph nodes right lower quadrant the short axis is less than 1 cm. Not significantly enlarged. No evidence of inflammation or appendicitis. ? *? Baclofen pump embedded in the subcutaneous fat posterior back the catheter of which is in the spinal canal the tip of which is in the level of L1 right of midline. > On re-evaluation patient reports mild symptomatic improvement. Tolerating p.o. without nausea or vomiting Results discussed with patient including worrisome signs and symptoms and strict return precautions, and when to return to the emergency department. They verbalized understanding and feel safe for discharge at this time. Medications Administered Discontinued Medications Generic Name Dose Route Start Last Admin Trade Name Freq PRN Reason Stop Dose Admin Sodium Chloride 1,000 mls @ 999 mls/hr 01/11/23 10:00 01/11/23 12:02 Ns IV 01/11/23 11:00 Infused .Q1H1M JUAN Infusion Iohexol 100 ml 01/11/23 10:52 01/11/23 10:53 Iohexol 350 Mg/Ml 100 Ml Infus..Btl IV 01/11/23 10:53 85 ml ONCE ONE Administration Morphine Sulfate 2 mg 01/11/23 10:03 01/11/23 10:53 Morphine Sulfate 2 Mg/Ml Cartridge IVPUSH 01/11/23 10:04 2 mg ONCE ONE Administration Protocol Ondansetron HCl 4 mg 01/11/23 09:50 01/11/23 10:53 Ondansetron Hcl 4 Mg/2 Ml Vial IVPUSH 01/11/23 09:51 4 mg ONCE ONE Administration Medical Decision Making Medical Decision Making MDM Narrative: 62-year-old female with a past medical history of HLD, HTN, hypothyroidism, thyroid CA, diabetes, vitamin-D deficiency, chronic regional pain syndrome s/p implantation of spinal cord stimulator presenting to the ED complaining of ep igastric abdominal pain radiating to chest with associated nausea x4 days. On exam vital signs tachycardic likely from dehydration/pain. Lungs CTA, abdomen soft epigastric and left lower quadrant tenderness, no rebound or guarding, no CVAT. Concern for ACS vs pancreatitis vs diverticulitis/colitis or GERD. Lower suspicion for cholecystitis/lithiasis or appendicitis at this time. Rule out metabolic/infectious etiologies. Lower suspicion for PE/dissection Low suspicion for severe sepsis at this time Plan: EKG, labs, UA, CXR, CT AP, IVF, pain control, re-evaluate Please refer to course for remaining clinical decision making, interpretation of labs/imaging results, and discussions with consultants and/or family members. Differential Diagnosis Differential Diagnoses: The differential diagnosis associated with the presentation includes As above Admission/Observation Consideration of admission/observation: Escalation of care including admission/observation considered Lab Data MDM Lab Attestation statement: I reviewed the patient's lab results. 01/11/23 09:34 01/11/23 09:34 Labs: Lab Results 01/11/23 01/11/23 01/11/23 Range/Units 09:34 09:34 09:34 WBC 6.6 (4.8-10.8) X10*3/uL RBC 4.93 (4.20-5.50) X10*6/uL Hgb 12.6 (12.0-16.0) g/dl Hct 38.0 (37.0-47.0) % MCV 77.1 L (80.0-98.0) fL MCH 25.6 L (27.0-33.0) pg MCHC 33.2 (31.0-35.0) g/dl RDW 13.4 (11.0-16.0) % Plt Count 275 (160-400) X10*3/uL MPV 10.3 (9.4-12.3) fL Immature Gran % (Auto) 0.3 (0.0-0.4) % Neut % (Auto) 67.5 (45-73) % Lymph % (Auto) 23.4 (20-40) % Cherry % (Auto) 7.7 (2-11) % Eos % (Auto) 0.3 (0-4) % Baso % (Auto) 0.8 (0-2) % Lymph # (Auto) 1.6 (1.2-4.9) X10*3/uL Cherry # (Auto) 0.5 (0.1-1.2) X10*3/uL Eos # (Auto) 0.0 (0.0-0.4) X10*3/uL Baso # (Auto) 0.1 (0.0-0.2) X10*3/uL Abs Immat Gran (auto) 0.02 (0.00-0.03) X10*3/uL Absolute Neuts (auto) 4.5 (2.0-8.3) x10*3/uL Absolute Nucleated RBC 0.000 (0.0-0.012) X10*3/uL Nucleated RBC % (auto) 0.0 (0.0-0.2) /100WBC PT 12.7 (10.0-13.1) SEC INR 1.1 (0.9-1.1) Sodium 142 (135-145) mmol/L Potassium 4.3 (3.3-5.1) mmol/L Chloride 102 (96-108) mmol/L Carbon Dioxide 27 (22-29) mmol/L Anion Gap 17 (12-20) BUN 18 H (9-16) mg/dL Creatinine 0.77 (0.5-1.4) mg/dL Estim Creat Clear Calc 72.3 Estimated GFR > 60 Random Glucose 158 H (60-115) mg/dL Calcium 9.6 (8.4-10.2) mg/dL Magnesium 2.0 (1.6-2.6) mg/dL Total Bilirubin 0.9 (0.0-1.0) mg/dL AST 17 (5-31) U/L ALT 17 (0-31) U/L Alkaline Phosphatase 80 (39-117) U/L Troponin I High Sens (<3.5-17.0) ng/L Total Protein 7.9 (6.5-8.0) g/dL Albumin 4.9 (3.5-5.0) g/dL Lipase 39 (8-78) U/L Urine Color Urine Appearance Urine pH (5.0-9.0) Ur Specific [place] (1.005-1.025) Urine Protein (Neg-Trace) mg/dL Urine Glucose (UA) (Negative) mg/dL Urine Ketones (Negative) mg/dL Urine Blood (Negative) Urine Nitrite (Negative) Ur Leukocyte Esterase (Negative) Urine RBC (0-2) /HPF Urine WBC (0-5) /HPF Ur Squamous Epith Cells (0-2) /HPF Urine Bacteria (None Seen) Hyaline Casts (0-2) /LPF COVID-19 ([facility]) (Negative) COVID-19 Clin Com Influenza Type A (COREY) (Negative) Influenza Type B (COREY) (Negative) Influenza A & B Note 01/11/23 01/11/23 01/11/23 Range/Units 09:34 09:34 09:34 WBC (4.8-10.8) X10*3/uL RBC (4.20-5.50) X10*6/uL Hgb (12.0-16.0) g/dl Hct (37.0-47.0) % MCV (80.0-98.0) fL MCH (27.0-33.0) pg MCHC (31.0-35.0) g/dl RDW (11.0-16.0) % Plt Count (160-400) X10*3/uL MPV (9.4-12.3) fL Immature Gran % (Auto) (0.0-0.4) % Neut % (Auto) (45-73) % Lymph % (Auto) (20-40) % Cherry % (Auto) (2-11) % Eos % (Auto) (0-4) % Baso % (Auto) (0-2) % Lymph # (Auto) (1.2-4.9) X10*3/uL Cherry # (Auto) (0.1-1.2) X10*3/uL Eos # (Auto) (0.0-0.4) X10*3/uL Baso # (Auto) (0.0-0.2) X10*3/uL Abs Immat Gran (auto) (0.00-0.03) X10*3/uL Absolute Neuts (auto) (2.0-8.3) x10*3/uL Absolute Nucleated RBC (0.0-0.012) X10*3/uL Nucleated RBC % (auto) (0.0-0.2) /100WBC PT (10.0-13.1) SEC INR (0.9-1.1) Sodium (135-145) mmol/L Potassium (3.3-5.1) mmol/L Chloride (96-108) mmol/L Carbon Dioxide (22-29) mmol/L Anion Gap (12-20) BUN (9-16) mg/dL Creatinine (0.5-1.4) mg/dL Estim Creat Clear Calc Estimated GFR Random Glucose (60-115) mg/dL Calcium (8.4-10.2) mg/dL Magnesium (1.6-2.6) mg/dL Total Bilirubin (0.0-1.0) mg/dL AST (5-31) U/L ALT (0-31) U/L Alkaline Phosphatase (39-117) U/L Troponin I High Sens 3.7 (<3.5-17.0) ng/L Total Protein (6.5-8.0) g/dL Albumin (3.5-5.0) g/dL Lipase (8-78) U/L Urine Color Urine Appearance Urine pH (5.0-9.0) Ur Specific [place] (1.005-1.025) Urine Protein (Neg-Trace) mg/dL Urine Glucose (UA) (Negative) mg/dL Urine Ketones (Negative) mg/dL Urine Blood (Negative) Urine Nitrite (Negative) Ur Leukocyte Esterase (Negative) Urine RBC (0-2) /HPF Urine WBC (0-5) /HPF Ur Squamous Epith Cells (0-2) /HPF Urine Bacteria (None Seen) Hyaline Casts (0-2) /LPF COVID-19 ([facility]) Negative (Negative) COVID-19 Clin Com See Note Influenza Type A (COREY) Negative (Negative) Influenza Type B (COREY) Negative (Negative) Influenza A & B Note See Note 01/11/23 Range/Units 11:32 WBC (4.8-10.8) X10*3/uL RBC (4.20-5.50) X10*6/uL Hgb (12.0-16.0) g/dl Hct (37.0-47.0) % MCV (80.0-98.0) fL MCH (27.0-33.0) pg MCHC (31.0-35.0) g/dl RDW (11.0-16.0) % Plt Count (160-400) X10*3/uL MPV (9.4-12.3) fL Immature Gran % (Auto) (0.0-0.4) % Neut % (Auto) (45-73) % Lymph % (Auto) (20-40) % Cherry % (Auto) (2-11) % Eos % (Auto) (0-4) % Baso % (Auto) (0-2) % Lymph # (Auto) (1.2-4.9) X10*3/uL Cherry # (Auto) (0.1-1.2) X10*3/uL Eos # (Auto) (0.0-0.4) X10*3/uL Baso # (Auto) (0.0-0.2) X10*3/uL Abs Immat Gran (auto) (0.00-0.03) X10*3/uL Absolute Neuts (auto) (2.0-8.3) x10*3/uL Absolute Nucleated RBC (0.0-0.012) X10*3/uL Nucleated RBC % (auto) (0.0-0.2) /100WBC PT (10.0-13.1) SEC INR (0.9-1.1) Sodium (135-145) mmol/L Potassium (3.3-5.1) mmol/L Chloride (96-108) mmol/L Carbon Dioxide (22-29) mmol/L Anion Gap (12-20) BUN (9-16) mg/dL Creatinine (0.5-1.4) mg/dL Estim Creat Clear Calc Estimated GFR Random Glucose (60-115) mg/dL Calcium (8.4-10.2) mg/dL Magnesium (1.6-2.6) mg/dL Total Bilirubin (0.0-1.0) mg/dL AST (5-31) U/L ALT (0-31) U/L Alkaline Phosphatase (39-117) U/L Troponin I High Sens (<3.5-17.0) ng/L Total Protein (6.5-8.0) g/dL Albumin (3.5-5.0) g/dL Lipase (8-78) U/L Urine Color Dark Yellow Urine Appearance Cloudy Urine pH 6.5 (5.0-9.0) Ur Specific [place] 1.025 (1.005-1.025) Urine Protein 100 (2+) H (Neg-Trace) mg/dL Urine Glucose (UA) Negative (Negative) mg/dL Urine Ketones Trace (Negative) mg/dL Urine Blood Small (1+) H (Negative) Urine Nitrite Negative (Negative) Ur Leukocyte Esterase Large (3+) H (Negative) Urine RBC 11-20 H (0-2) /HPF Urine WBC >50 H (0-5) /HPF Ur Squamous Epith Cells 6-10 (0-2) /HPF Urine Bacteria 3+ (None Seen) Hyaline Casts 0-2 (0-2) /LPF COVID-19 ([facility]) (Negative) COVID-19 Clin Com Influenza Type A ([facility]Y) (Negative) Influenza Type B (COREY) (Negative) Influenza A & B Note Independent Interpretation I performed an independent interpretation of an: EKG Radiology Impression Discussion of test interpretation with radiology: I have reviewed the radiologist's reading. Independent Historian Clinical information obtained from an independent historian. History obtained from or confirmed by: Other (Family) External Record Review External record reviewed: Inpatient record, Outpatient record, Prior outpatient labs, Prior outpatient radiology, Primary care record and Outside ED record Prescription Management I considered prescription management with: Pain Medication Chronic Conditions Patient?s care impacted by: Diabetes and Hypertension Discharge Plan Discharge Clinical Impression: UTI (urinary tract infection), Abdominal pain, Nausea Patient Disposition: Home, Self-Care Instructions: Urinary Tract Infection in Women (ED), Acute Abdominal Pain (ED) Additional Instructions: You have a urine infection. Ceftin is an antibiotic please take as prescribed. In addition Zofran as antinausea medication, take as needed. Practice a bland diet, avoid spicy food, sweets, chocolate, caffeine Follow-up with her primary care doctor and Gastroenterology. CT scan shows prominent mesenteric lymph node, please follow-up with her primary care doctor in regards to this. If symptoms persist or worsen you have constant or unremitting pain, persistent nausea/vomiting return to the emergency department Tienes chaitanya infecci?n de orina. Ceftin es un antibi?joana, t?barakat seg?n lo prescrito. Adem?s, Zofran trini medicamento contra las n?useas, t?barakat seg?n sea necesario. Practique chaitanya dieta blanda, evite las comidas picantes, los dulces, el chocolate, la cafe?na. Seguimiento con chambers m?dico de atenci?n primaria y Gastroenterolog?a. La tomograf?a computarizada muestra un ganglio linf?joana mesent?rico prominente, reba un seguimiento con chambers m?dico de atenci?n primaria con respecto a esto. Si los s?ntomas persisten o empeoran, tiene dolor mynor o incesante, n?useas/v?mitos persistentes, regrese al departamento de emergencias. Prescriptions: New cefuroxime axetil 250 mg tablet 250 mg PO BID 7 Days Qty: 14 0RF ondansetron 4 mg tablet,disintegrating 4 mg PO Q8H PRN (Reason: nausea and vomiting) Qty: 10 0RF No Action (DME) FreeStyle Lite Strips Strip See Rx Instructions .ROUTE .MEDSUPPLY Qty: 100 10RF Rx Instructions: Test blood glucose twice per day (DME) FreeStyle [place] 2 [place] Misc See Rx Instructions .ROUTE .MEDSUPPLY Qty: 1 0RF Rx Instructions: As directed omega-3 fatty acids-fish oil 340-1,000 mg capsule 1 cap PO BEDTIME 30 Days Qty: 30 6RF pantoprazole 40 mg tablet,delayed release (DR/EC) 40 mg PO DAILY Qty: 90 2RF Rx Instructions: take one tablet half an hour before breakfast metformin 500 mg tablet extended release 24 hr 1,000 mg PO BID Qty: 360 1RF levothyroxine 137 mcg tablet 137 mcg PO DAILY 30 Days Qty: 30 3RF fluticasone propionate [Flovent HFA] 220 mcg/actuation HFA aerosol inhaler 1 puff INHALATION BID albuterol sulfate [ProAir HFA] 90 mcg/actuation HFA aerosol inhaler 2 puff INHALATION Q4-6H PRN (Reason: Wheezing) metoprolol succinate 50 mg tablet extended release 24 hr 50 mg PO DAILY multivitamin Tablet 1 tab PO QAM losartan 50 mg tablet 50 mg PO BID tolterodine 2 mg capsule,extended release 24hr 2 mg PO DAILY hydrochlorothiazide 12.5 mg tablet 12.5 mg PO QAM lidocaine 5 % adhesive patch,medicated 1 patch topical DAILY PRN (Reason: pain) 30 Days Qty: 30 0RF Rx Instructions: leave on most painful area for up to 12 hrs (DME) blood-glucose meter [FreeStyle Lite Meter] Kit See Rx Instructions .ROUTE .MEDSUPPLY Qty: 1 0RF Rx Instructions: As directed Citrucel 500 mg tablet 500 mg PO DAILY Qty: 90 2RF Rx Instructions: take it with full glass of water Referrals: Tamie Johnson MD [Primary Care Provider] - 3 days Print Language: Vietnamese
[2023-01-11 09:42] LABS: Basophils Absolute Auto 0.1 X10*3/uL (0.0-0.2); Basophils Percent Auto 0.8 % (0-2); Eosinophils Percent Auto 0.3 % (0-4); Hemoglobin 12.6 g/dl (12.0-16.0); Imm Gran Abs Auto 0.02 X10*3/uL (0.00-0.03); Imm Gran Pct Auto 0.3 % (0.0-0.4); Lymphocytes Absolute Auto 1.6 X10*3/uL (1.2-4.9); Lymphocytes Percent Auto 23.4 % (20-40); Mean Corpuscular HGB Conc 33.2 g/dl (31.0-35.0); Mean Corpuscular Hemoglobin 25.6 pg (27.0-33.0); Mean Corpuscular Volume 77.1 fL (80.0-98.0); Mean Platelet Volume 10.3 fL (9.4-12.3); Monocytes Absolute Auto 0.5 X10*3/uL (0.1-1.2); Monocytes Percent Auto 7.7 % (2-11); Neutrophils Absolute Auto 4.5 x10*3/uL (2.0-8.3); Neutrophils Percent Auto 67.5 % (45-73); Platelet Count 275 X10*3/uL (160-400); Red Blood Count 4.93 X10*6/uL (4.20-5.50); Red Cell Distribution Width 13.4 % (11.0-16.0); White Blood Count 6.6 X10*3/uL (4.8-10.8)
[2023-01-11 09:56] LABS: COVID-19 Test Negative (Negative); IDNOW Serial# 16C4AD1C; IDNOW Serial# BCCEAD1C; Influenza A Negative (Negative); Influenza B2 Negative (Negative)
[2023-01-11 09:57] LABS: INTERNATIONAL NORM RATIO 1.1 (0.9-1.1); Prothrombin Time 12.7 SEC (10.0-13.1)
[2023-01-11 10:06] LABS: Alanine Aminotransferase 17 U/L (0-31); Albumin Level 4.9 g/dL (3.5-5.0); Alkaline Phosphatase 80 U/L (39-117); Anion Gap 17 (12-20); Aspartate Amino Transferase 17 U/L (5-31); Bilirubin Total 0.9 mg/dL (0.0-1.0); Blood Urea Nitrogen 18 mg/dL (9-16); Calcium 9.6 mg/dL (8.4-10.2); Carbon Dioxide 27 mmol/L (22-29); Chloride 102 mmol/L (96-108); Creatinine Clr Calc Pharmacy 72.3; Estimated Glomerular Filt Rate > 60; Glucose Random 158 mg/dL (60-115); Potassium 4.3 mmol/L (3.3-5.1); Sodium 142 mmol/L (135-145); Total Protein 7.9 g/dL (6.5-8.0); Troponin-I High Sensitivity 3.7 ng/L (<3.5-17.0)
[2023-01-11 10:25] LABS: Lipase 39 U/L (8-78)
[2023-01-11] MEDS: iohexoL 350 MG/ML 100 ML INFUS..BTL IV (10:53)
[2023-01-11] MEDS: 0.9 % Sodium Chloride 1,000 ML 999 ML IV (10:53)
[2023-01-11] MEDS: Morphine Sulfate 2 MG/ML CARTRIDGE IVPUSH (10:53)
[2023-01-11] MEDS: ondansetron HCL 4 MG/2 ML VIAL IVPUSH (10:53)
[2023-01-11 11:01] VITALS: BP 137/65; PULSE 98; RESP 14; O2SAT 99
--- NOTE | 2023-01-11 11:34 | MHC.EDTECH ---
urine collected and sent to lab
[2023-01-11 11:38] LABS: Appearance Urine Cloudy; Color Urine Dark Yellow; Glucose Urine UA Negative (Negative); Leukocyte Esterase Urine Large (3+) (Negative); Nitrite Urine Negative (Negative); PH 6.5 (5.0-9.0); Specific Gravity - Urine 1.025 (1.005-1.025); UMIC TRIGGER UACC YES; Urine Blood Small (1+) (Negative); Urine Ketones Trace mg/dL (Negative); Urine Protein 100 (2+) mg/dL (Neg-Trace)
[2023-01-11 11:43] LABS: Bacteria Urine 3+ (None Seen); Hyaline Casts Urine 0-2 /LPF (0-2); UACC Culture Trigger YES; WBC Urine >50 /HPF (0-5)
[2023-01-11] MEDS: Magnesium Hydrox/Alum Hydrox 30 ML ORAL.SUSP PO (12:33)
[2023-01-11] MEDS: cefTRIAXone sodium 1 GM in 0.9 % Sodium Chloride 50 ML IV (12:33)
[2023-01-11] MEDS: Famotidine/PF 20 MG/2 ML VIAL IVPUSH (12:33)
[2023-01-11 13:04] VITALS: BP 104/54; PULSE 103; RESP 13; O2SAT 99
== END 2023-01-11 14:09 | disposition home or self-care (01) ==
PROVIDERS: Physician Assistant; Emergency Provider Emergency Medicine; PCP Internal Medicine
DX: N39.0 Urinary tract infection, site not specified (principal); R07.89 Other chest pain; R10.10 Upper abdominal pain, unspecified; R11.2 Nausea with vomiting, unspecified; Z20.822 Contact with and (suspected) exposure to COVID-19; Z20.828 Contact with and (suspected) exposure to other viral communicable diseases; Z79.899 Other long term (current) drug therapy
CPT/HCPCS: 36415; 71045; 74177; 80053; 81001; 83690; 83735; 84484; 85025; 85610; 87086; 87088; 87186; 87502; 87635; 93005; 96361; 96374; 96375; 99284; J0696; J2270; J2405; Q9967

== ENCOUNTER → 2023-01-13 10:59 | Outpatient (BNVA) | payer OTHER, MEDICAID, SELFPAY | PROVIDERS: Visit Provider Nurse Practitioner Family | DX: Z13.89 Encounter for screening for other disorder (principal) ==

== ENCOUNTER → 2023-01-19 11:06 | Outpatient (BNVA) | payer OTHER, MEDICAID, SELFPAY | PROVIDERS: Visit Provider Anesthesiology | DX: Z13.89 Encounter for screening for other disorder (principal) ==

== ENCOUNTER → 2023-01-23 14:33 | Outpatient (BNVA) | payer OTHER, MEDICAID, SELFPAY | PROVIDERS: Visit Provider Urology | DX: R31.0 Gross hematuria (principal); R10.30 Lower abdominal pain, unspecified | CPT/HCPCS: 51798 ==

== ENCOUNTER 2023-01-28 09:45 | Outpatient (REF) | payer OTHER, MEDICAID, SELFPAY ==
--- NOTE | ~2023-01-28 | US_ITS ---
EXAMINATION: US VENOUS REFLUX/INSUFFICIENCY CLINICAL INFORMATION: Varicose veins of right lower extremity of inflammation Venous reflux. COMPARISON: None. TECHNIQUE: Bilateral lower extremity venous insufficiency ultrasound was performed with velocity measurements. Color flow Doppler imaging was performed. FINDINGS: RIGHT SIDE: No evidence of DVT or venous reflux within the common femoral, mid femoral, or popliteal vein. GREATER SAPHENOUS VEIN: The right saphenofemoral junction measures 0.7cm. The reflux time is 0 ms. Proximal thigh measures 0.4cm. Reflux time is greater than 2316ms. Mid thigh measures 0.5cm. Reflux time is greater than 2316ms. Above-knee measures 0.6cm. Reflux time is greater than 2264ms. At the knee measures 0.6cm. Reflux time is greater than 2720ms. Below the knee measures 0.6cm. Reflux time is greater than 2620ms. Mid calf measures 0.6cm. Reflux time is greater than 1832ms. At the level of the ankle it measures0.1cm. Reflux time is 0ms. There is a medial accessory saphenous vein which measures 0.3 cm at the saphenofemoral junction and 0.2 cm the mid thigh. There is no demonstrable reflux. There is also a lateral accessory saphenous vein which measures 0.1 cm at the saphenofemoral junction and does not demonstrate reflux. SMALL SAPHENOUS VEIN: The origin of the right small saphenous vein measures 0.6 cm. Reflux time is 2008ms. The midcalf small saphenous vein measures 0.3 cm. Reflux time is greater than 2368ms. Distal calf small saphenous vein measures 0.3 cm. Reflux time is 1396 ms There are several right lower extremity aperture mask etcher veins which do not demonstrate reflux at the distal small saphenous vein, the proximal and mid calf. These measure 0.5, 0.2, 0.3 cm respectively. There are multiple right lower extremity varicosities these include: At the level of the distal small saphenous vein measuring 0.4 cm. Reflux time is greater than 2780 ms At the mid thigh measuring 0.5 cm, reflux time is greater than 2864 ms At the knee there is a 0.3 cm aperture mask etcher with reflux time greater than 2384 ms Proximal calf there is a 0.5 cm varicosity with reflux time greater than 2332 ms At the mid calf there is a 0.5 cm varicosity with reflux time 1708 ms At the mid calf there is another 0.3 cm varicosity with reflux time 1112 ms LEFT SIDE: No evidence of DVT or venous reflux within the common femoral, mid femoral, or popliteal vein. GREATER SAPHENOUS VEIN: The left saphenofemoral junction measures 0.6cm. The reflux time is 0 ms. Proximal thigh measures 0.8cm. Reflux time is 0ms. Mid thigh measures 0.3cm. Reflux time is greater than 2492ms. Above-knee measures 0.3cm. Reflux time is greater than 2332ms. At the knee measures 0.3cm. Reflux time is 2500ms. Below the knee measures 0.2cm. Reflux time is 1436ms. Mid calf measures 0.3cm. Reflux time is 0ms. At the level of the ankle it measures0.3cm. Reflux time is 0ms. There is a minimal lateral accessory saphenous vein seen only at the saphenofemoral junction which measures 0.2 cm and does not demonstrate reflux. SMALL SAPHENOUS VEIN: At the saphenofemoral popliteal junction the small saphenous vein measures 0.4 cm. Reflux time is 0ms. At the mid calf the small saphenous vein measures 0.4 cm. Reflux time is 1168 ms At the distal calf the vein measures 0.2cm. Reflux time is 0ms. There is a aperture mask etcher vein 62 cm in the calcaneus which measures 0.2 cm in diameter and has refluxed time 1460 ms. At the distal calf there is a 3 mm aperture mask etcher without reflux. There is a 3 mm varicosity at the knee with reflux time greater than 2664 ms There is a 4 mm varicosity at the proximal calf with reflux time 1520 ms There is an additional 3 mm varicosity of the proximal calf which does not demonstrate reflux. US/US venous duplex LE BI IMPRESSION: 1. No evidence of deep venous thrombosis of the right or left lower extremity. 2. On the right there is venous reflux along essentially the entirety of the great saphenous vein and the small saphenous vein. There are multiple varicosities of the right lower extremity, all of which demonstrate reflux. 3. On the left there is venous reflux within the great saphenous vein from the level of the mid thigh to below the knee and reflux within the small saphenous vein at the level of the midcalf. There is a 2 mm aperture mask etcher 62 cm from the heel on the left which demonstrate reflux. There are several left lower extremity varicosities as described.
== END 2023-01-28 09:46 | disposition home or self-care (01) ==
LOC: HO.US 09:45
PROVIDERS: PCP Internal Medicine; Visit Provider Surgery Vascular Surgery
DX: I83.893 Varicose veins of bilateral lower extremities with other complications (principal)
CPT/HCPCS: 93970

== ENCOUNTER → 2023-02-12 10:51 | Outpatient (BNVA) | payer OTHER, MEDICAID, SELFPAY | PROVIDERS: Visit Provider Orthopaedic Surgery | DX: M17.11 Unilateral primary osteoarthritis, right knee (principal) | CPT/HCPCS: 20610; J1100 ==

== ENCOUNTER 2023-02-23 13:01 | Outpatient (REF) | payer OTHER, MEDICAID, SELFPAY ==
--- NOTE | ~2023-02-23 | XR_ITS ---
EXAMINATION: XR KNEES, BILATERAL STANDING XR KNEE, RIGHT CLINICAL INFORMATION: Knee pain. COMPARISON: 11/29/2021. TECHNIQUE: Standing view both knees with 2 additional views right knee. FINDINGS: Again seen is some mild degenerative change in the patellofemoral joint with posterior osteophytes. The medial and lateral compartments are well maintained. A tiny marginal osteophyte is seen arising from the medial tibial plateau. No joint effusion. No chondrocalcinosis. XR/XR knee RT 2V IMPRESSION: Mild degenerative changes in the patellofemoral joint.
--- NOTE | ~2023-02-23 | XR_ITS ---
EXAMINATION: XR KNEES, BILATERAL STANDING XR KNEE, RIGHT CLINICAL INFORMATION: Knee pain. COMPARISON: 11/29/2021. TECHNIQUE: Standing view both knees with 2 additional views right knee. FINDINGS: Again seen is some mild degenerative change in the patellofemoral joint with posterior osteophytes. The medial and lateral compartments are well maintained. A tiny marginal osteophyte is seen arising from the medial tibial plateau. No joint effusion. No chondrocalcinosis. XR/XR knee standing BI IMPRESSION: Mild degenerative changes in the patellofemoral joint.
== END 2023-02-23 13:02 | disposition home or self-care (01) ==
LOC: HO.HOSX 13:01
PROVIDERS: Visit Provider Orthopaedic Surgery
DX: M17.11 Unilateral primary osteoarthritis, right knee (principal); G90.50 Complex regional pain syndrome I, unspecified; M25.461 Effusion, right knee; E11.42 Type 2 diabetes mellitus with diabetic polyneuropathy
CPT/HCPCS: 73560; 73565

== ENCOUNTER → 2023-02-25 09:15 | Outpatient (BNVA) | payer OTHER, MEDICAID, SELFPAY | PROVIDERS: Visit Provider Internal Medicine Cardiovascular Disease | DX: R00.2 Palpitations (principal); I10 Essential (primary) hypertension; E78.5 Hyperlipidemia, unspecified | CPT/HCPCS: 93005 ==

== ENCOUNTER → 2023-02-26 08:53 | Outpatient (REF) | payer OTHER, MEDICAID, SELFPAY ==
--- NOTE | 2023-02-26 09:10 | HM_ITS ---
Conclusion: 1. Patient was monitored for total period of 6 days and 23 hours 2. Baseline was normal sinus rhythm with average heart rate of 89 beats per minute 3. Very rare ectopy noted 4. No pauses noted 5. No patient reported symptoms MTDD
[2023-02-26 09:55] LABS: Cholesterol 195 mg/dL; HDL Cholesterol 37 mg/dL; LDL Cholesterol Calculated 123 mg/dl; Triglycerides 179 mg/dL
[2023-02-26 10:09] LABS: Free T4 (Free Thyroxine) 1.81 ng/dL (0.71-1.85)
[2023-02-26 10:11] LABS: TSH reflex Free T4 < 0.01 uIU/mL (0.32-4.0); Thyroid Stimulating Hormone < 0.01 uIU/mL (0.32-4.0)
[2023-03-04 04:29] LABS: Thyroglobulin Antibody <1 IU/mL (<=1); Thyroglobulin Level <0.1 ng/mL
== END ==
LOC: HO.CARD 08:53
PROVIDERS: Internal Medicine; Absent Provider Nurse Practitioner Gerontology; Visit Provider Internal Medicine Cardiovascular Disease
DX: R00.2 Palpitations (principal); E78.5 Hyperlipidemia, unspecified; Z85.850 Personal history of malignant neoplasm of thyroid
CPT/HCPCS: 36415; 80061; 84432; 84439; 84443; 86800; 93242

== ENCOUNTER 2023-02-28 07:03 | Emergency (ER) | payer OTHER, MEDICAID, SELFPAY ==
--- NOTE | ~2023-02-28 | CT_ITS ---
EXAMINATION: CT ABDOMEN AND PELVIS WITHOUT CONTRAST CLINICAL INFORMATION: Abdominal pain. Urinary symptoms. Rule out colic. COMPARISON: CT scans dating between 01/11/2023 and 02/06/2015. TECHNIQUE: Multidetector volumetric imaging was performed from the superior aspect of the liver through the pubic symphysis. Sagittal and coronal reformatted images were obtained on the technologist's workstation. This CT examination was performed using dose optimization techniques as appropriate, variously including the following: *Automated exposure control *Adjustment of mA and/or kV according to patient size (this includes techniques or standardized protocols for targeted exams where dose is matched to indication/reason for exam; i.e. extremities or head) *Use of iterative reconstruction technique DLP: 434 mGy-cm FINDINGS: LUNG BASES: The lung bases appear clear, with no evidence of inflammation or suspicious nodules. 4 mm calcified right lower lobe granuloma. LIVER, GALLBLADDER, AND BILIARY TREE: The liver appears unremarkable in size, shape, and attenuation. No focal hepatic lesion or biliary ductal dilatation is appreciated. Unremarkable appearance of the gallbladder. 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 The kidneys appear unremarkable in size, shape, and attenuation. No hydronephrosis, hydroureter, or calculi seen. BLADDER: Unremarkable GASTROINTESTINAL TRACT: Unremarkable appearance of the stomach and small bowel. Sigmoid diverticula without evidence of diverticulitis. Normal-appearing distal ileum. No evidence of appendicitis. ABDOMINAL WALL: Presumed subcutaneous electronic device and spinal canal lead. Lower anterior abdominal wall surgical mesh. No significant hernia is appreciated. LYMPH NODES: No evidence of adenopathy by size criteria. VASCULAR: Unremarkable PELVIC VISCERA: Status post hysterectomy. OSSEOUS STRUCTURES: Unremarkable CT/CT abdomen pelvis wo IV con IMPRESSION: No acute finding. No evidence of urinary tract stone or hydronephrosis. Additional findings, as above.
[2023-02-28 07:17] VITALS: BP 136/63; PULSE 104; RESP 18; TEMP 36.9; O2SAT 98; BMI 24.9
--- NOTE | 2023-02-28 07:51 | ED.FEMALEGU ---
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 Gee here with complaints acute on chronic lower abdominal pain for the last 8 days with urinary frequency, urgency and dysuria. Patient reports that she has had chronic pelvic pain for many years. She was seen by her primary care and was referred to see a urologist but she is waiting for an appointment. Patient denies any associated nausea, fever, back pain, diarrhea, skin rash, vaginal discharge. She does have some chronic constipation. Patient has history partial hysterectomy, . Related Data Home Medications Medication Instructions Recorded Confirmed losartan 50 mg tablet 50 mg PO BID 10/10/20 02/25/23 metoprolol succinate 50 mg 50 mg PO DAILY 02/06/21 02/25/23 tablet,extended release 24 hr hydrochlorothiazide 12.5 mg tablet 12.5 mg PO QAM 04/21/22 02/25/23 albuterol sulfate 90 mcg/actuation 2 puff inhalation Q4-6H PRN 09/05/22 02/25/23 aerosol inhaler (ProAir HFA) Wheezing Previous Rx's Medication Instructions Recorded blood sugar diagnostic (FreeStyle #100 ea 07/09/21 Lite Strips) blood-glucose meter (FreeStyle #1 ea 03/12/22 Lite Meter kit) flash glucose scanning reader #1 ea 04/11/22 (FreeStyle Emile 2 [place]) metformin 500 mg tablet,extended 1,000 mg PO BID #360 tabs 09/11/22 release 24 hr levothyroxine 137 mcg tablet 137 mcg PO DAILY 30 days #30 tabs 12/23/22 pantoprazole 40 mg tablet,delayed 40 mg PO DAILY #90 tabs 01/13/23 release cefuroxime axetil 250 mg tablet 250 mg PO BID #14 tabs 02/28/23 phenazopyridine 200 mg tablet 200 mg PO TID 6 doses #10 tabs 02/28/23 (Pyridium) Allergies Allergy/AdvReac Type Severity Reaction Status Date / Time Penicillins [PENICILLINS] Allergy Unknown HIVES Verified 02/26/23 10:13 Review of Systems Review of Systems: Yes all other systems are reviewed and are negative Constitutional: Constitutional: Reports no additional constitutional complaints, Denies body ache(s), Denies chills, Denies fever(s), Denies headache(s) and Denies weakness Eyes: Eyes: Reports no additional eye complaints and Denies change in vision ENT: Reports system reviewed and no additional complaints, except as documented, Denies dizziness, Denies headache(s), Denies nasal congestion, Denies nasal discharge and Denies neck pain Cardiovascular: Cardiovascular: Reports no additional cardiovascular complaints, Denies chest pain, Denies leg edema and Denies dyspnea Respiratory: Respiratory: Reports no additional respiratory complaints, Denies cough and Denies dyspnea Gastrointestinal: Gastrointestinal: Reports no additional gastrointestinal complaints, Reports abdominal pain, Denies diarrhea, Denies nausea and Denies vomiting Genitourinary: Genitourinary: Reports no additional female genitourinary complaints, Reports dysuria, Reports pelvic pain, Denies urinary incontinence, Reports urinary urgency and Denies vaginal discharge Musculoskeletal: Musculoskeletal: Reports no additional musculoskeletal complaints, Denies back pain, Denies arthralgias, Denies joint swelling, Denies neck pain, Denies numbness and Denies tingling Integumentary/Breasts: Skin/Breast: Reports system reviewed and no additional complaints, except as docu and Denies rash Neurologic: Reports system reviewed and no additional complaints, except as documented, Denies Abnormal speech present, Denies dizziness, Denies headache(s), Denies numbness, Denies tingling and Denies weakness [facility] Past Medical History Attestation statement: The following information was validated with the patient. Source: old records reviewed and nursing notes reviewed Medical History Blood in urine Constipation by delayed colonic transit Dyslipidemia Gastritis Hematuria Hypertension Mass of spine Post-surgical hypothyroidism Primary thyroid cancer Pulmonary nodules Thymoma Thyroid cancer Toe pain Tubular adenoma of colon Type 2 diabetes mellitus with polyneuropathy Vitamin D deficiency Surgical History History of back surgery History of esophagogastroduodenoscopy (EGD) History of thymectomy Hx of section Hx of colonoscopy Hx of hernia repair Hx of hysterectomy Hx of thyroidectomy Family History Family History Father Stroke Heart attack Mother Diabetes mellitus Family/Other Family history of cancer Sister Stomach cancer Family/Other Thyroid cancer Social History Social History Household Members: Spouse, Children and Other Alcohol intake: unknown Patient Tobacco Use Status: Former Tobacco user Tobacco use type: Cigarette Smoked in Last 30 Days: No Second Hand Smoke Exposure: No Use of substances other than those prescribed or required for medical reasons: Unknown Advance Directives: No Advance Directives Information Provided: Yes Patient : No Sexual orientation: Straight/Heterosexual Gender identity: Female Physical Exam Vital Signs: Vital Signs: Last Vital Signs Temp 98.2 F 02/28/23 07:52 Pulse 90 02/28/23 07:52 Resp 14 02/28/23 07:52 BP 126/69 02/28/23 07:52 Pulse Ox 99 02/28/23 07:52 O2 Del Method Room Air 02/28/23 07:52 BMI result Body Mass Index 24.9 Const: General: cooperative, healthy appearing, comfortable and no acute distress Orientation/consciousness: patient oriented x3 Limitations: no limitations HEENT: Head: Yes normal to inspection Ears: hearing grossly normal bilaterally General nose exam: Normal external nose present Face and sinus: Yes normal facial exam Mouth: Normal oral and palatal mucosa present Throat: Yes posterior oropharynx normal Eyes: General: appearance normal, both eyes and all related structures Pupils: Equal, round and reactive pupils present Neck: Neck: Yes normal visual inspection Chest: Chest palpation & inspection: normal inspection of the chest Resp: Effort & Inspection: normal respiratory effort Auscultation: clear to auscultation bilaterally Cardio: Rate: regular rate Rhythm: regular rhythm Peripheral pulses: Peripheral pulses 2+ throughout GI: Inspection: Yes normal to inspection Palpation (GI): Soft to palpation and Tenderness to palpation present (GI) (RLQ/LLQ TTP-L>R) Auscultation: normal bowel sounds : 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 Female Exam: normal external appearance Back/Spine/Pelvis: Thoracic/Lumbar Spine: thoracic and lumbar spine normal to inspection Skin: General skin exam: no rashes or lesions noted Neuro: General: patient oriented x3, no focal motor deficits and normal sensation to monofilament Cranial nerves: Yes Equal, round and reactive pupils present Cognition (Neuro): normal cognition Speech: No Abnormal speech present Gait exam (Neuro): Normal gait present Motor exam (neuro): 5/5 motor strength present throughout Extrem: General: Yes normal to inspection Course Course Course Narrative: Labs are unremarkable. CT abdomen and pelvis shows no acute finding. UA is consistent with a UTI. Patient will discharge home with course of antibiotics and Pyridium p.r.n.. Reviewed worrisome signs and symptoms of when to return to the emergency room. Comfortable plan for discharge home. Medications Administered Discontinued Medications Generic Name Dose Route Start Last Admin Trade Name Axelq PRN Reason Stop Dose Admin Ketorolac Tromethamine 30 mg 02/28/23 07:49 02/28/23 08:12 Ketorolac Tromethamine 30 Mg/Ml Vial IM 02/28/23 07:50 30 mg ONCE ONE Administration Medical Decision Making Medical Decision Making [facility] Narrative: 62-year-old female here with acute on chronic lower abdominal and pelvic pain for the last 8 days with urinary urgency, frequency, dysuria. On exam patient tenderness the lower abdomen left greater than right with no rebound or guarding. No CVA tenderness. External vaginal area is normal in appearance. Will obtain labs, UA, CT Differential Diagnosis Differential Diagnoses: The differential diagnosis associated with the presentation includes UTI less likely renal colic or pyelonephritis Diverticulitis No red flag symptoms of weight loss, night sweats to suggest malignancy Lab Data [facility] Lab Attestation statement: I reviewed the patient's lab results. 02/28/23 08:00 02/28/23 08:00 Labs: Lab Results 02/28/23 02/28/23 02/28/23 Range/Units 08:00 08:00 08:00 WBC 5.4 (4.8-10.8) X10*3/uL RBC 4.41 (4.20-5.50) X10*6/uL Hgb 11.2 L (12.0-16.0) g/dl Hct 34.0 L (37.0-47.0) % MCV 77.1 L (80.0-98.0) fL MCH 25.4 L (27.0-33.0) pg MCHC 32.9 (31.0-35.0) g/dl RDW 13.1 (11.0-16.0) % Plt Count 250 (160-400) X10*3/uL MPV 10.8 (9.4-12.3) fL Immature Gran % (Auto) 0.4 (0.0-0.4) % Neut % (Auto) 70.5 (45-73) % Lymph % (Auto) 19.2 L (20-40) % Dale % (Auto) 7.1 (2-11) % Eos % (Auto) 1.7 (0-4) % Baso % (Auto) 1.1 (0-2) % Lymph # (Auto) 1.0 L (1.2-4.9) X10*3/uL Dale # (Auto) 0.4 (0.1-1.2) X10*3/uL Eos # (Auto) 0.1 (0.0-0.4) X10*3/uL Baso # (Auto) 0.1 (0.0-0.2) X10*3/uL Abs Immat Gran (auto) 0.02 (0.00-0.03) X10*3/uL Absolute Neuts (auto) 3.8 (2.0-8.3) x10*3/uL Absolute Nucleated RBC 0.000 (0.0-0.012) X10*3/uL Nucleated RBC % (auto) 0.0 (0.0-0.2) /100WBC Sodium 139 (135-145) mmol/L Potassium 3.7 (3.3-5.1) mmol/L Chloride 103 (96-108) mmol/L Carbon Dioxide 25 (22-29) mmol/L Anion Gap 15 (12-20) BUN 17 H (9-16) mg/dL Creatinine 0.81 (0.5-1.4) mg/dL Estim Creat Clear Calc 63.1 Estimated GFR > 60 Random Glucose 233 H (60-115) mg/dL Calcium 8.8 D (8.4-10.2) mg/dL Urine Color Yellow Urine Appearance Clear Urine pH 6.0 (5.0-9.0) Ur Specific Clare 1.015 (1.005-1.025) Urine Protein Negative (Neg-Trace) mg/dL Urine Glucose (UA) Negative (Negative) mg/dL Urine Ketones Negative (Negative) mg/dL Urine Blood Negative (Negative) Urine Nitrite Negative (Negative) Ur Leukocyte Esterase Moderate (2+) H (Negative) Urine RBC 0-2 (0-2) /HPF Urine WBC 11-20 H (0-5) /HPF Ur Squamous Epith Cells 6-10 (0-2) /HPF Urine Bacteria None Seen (None Seen) Hyaline Casts 0-2 (0-2) /LPF Independent Interpretation I performed an independent interpretation of an: CT Scan Interpretation: I independently reviewed the CT scan agree with radiologist's report Radiology Impression Discussion of test interpretation with radiology: I have reviewed the radiologist's reading. Radiologist Impression: FINDINGS: LUNG BASES: The lung bases appear clear, with no evidence of inflammation or suspicious nodules. 4 mm calcified right lower lobe granuloma. LIVER, GALLBLADDER, AND BILIARY TREE: The liver appears unremarkable in size, shape, and attenuation. No focal hepatic lesion or biliary ductal dilatation is appreciated. Unremarkable appearance of the gallbladder. PANCREAS: Unremarkable? SPLEEN: Unremarkable? ADRENAL GLANDS: Unremarkable? 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 The kidneys appear unremarkable in size, shape, and attenuation. No hydronephrosis, hydroureter, or calculi seen. ? BLADDER: Unremarkable? GASTROINTESTINAL TRACT: Unremarkable appearance of the stomach and small bowel. Sigmoid diverticula without evidence of diverticulitis. Normal-appearing distal ileum. No evidence of appendicitis.? ABDOMINAL WALL: Presumed subcutaneous electronic device and spinal canal lead. Lower anterior abdominal wall surgical mesh. No significant hernia is appreciated.? LYMPH NODES: No evidence of adenopathy by size criteria. VASCULAR: Unremarkable PELVIC VISCERA: Status post hysterectomy. OSSEOUS STRUCTURES: Unremarkable? CT/CT abdomen pelvis wo IV con IMPRESSION: ? No acute finding. ? No evidence of urinary tract stone or hydronephrosis. ? Additional findings, as above. Discharge Plan Discharge Clinical Impression: Urinary tract infection Patient Disposition: Home, Self-Care Instructions: Urinary Tract Infection in Women (DC) Additional Instructions: Your blood work and CT scan are normal.? You do have a urinary tract infection.? Take the antibiotics as prescribed.? Take the Pyridium to help with the pain and discomfort of urination.? Continue to follow-up with Urology outpatient Saha an?lisis de jerrod y la tomograf?a computarizada son normales. Tienes chaitanya infecci?n del tracto urinario. Gaines los antibi?ticos seg?n lo prescrito. Gaines el Pyridium para ayudar con el dolor y la incomodidad de orinar. Continuar seguimiento con consulta externa de Urolog?a Prescriptions: New cefuroxime axetil 250 mg tablet 250 mg PO BID Qty: 14 0RF phenazopyridine [Pyridium] 200 mg tablet 200 mg PO TID Qty: 10 0RF No Action (DME) FreeStyle Lite Strips Strip See Rx Instructions .ROUTE .MEDSUPPLY Qty: 100 10RF Rx Instructions: Test blood glucose twice per day (DME) FreeStyle Emile 2 [place] Misc See Rx Instructions .ROUTE .MEDSUPPLY Qty: 1 0RF Rx Instructions: As directed metformin 500 mg tablet extended release 24 hr 1,000 mg PO BID Qty: 360 1RF levothyroxine 137 mcg tablet 137 mcg PO DAILY 30 Days Qty: 30 3RF albuterol sulfate [ProAir HFA] 90 mcg/actuation HFA aerosol inhaler 2 puff INHALATION Q4-6H PRN (Reason: Wheezing) metoprolol succinate 50 mg tablet extended release 24 hr 50 mg PO DAILY losartan 50 mg tablet 50 mg PO BID hydrochlorothiazide 12.5 mg tablet 12.5 mg PO QAM (DME) blood-glucose meter [FreeStyle Lite Meter] Kit See Rx Instructions .ROUTE .MEDSUPPLY Qty: 1 0RF Rx Instructions: As directed pantoprazole 40 mg tablet,delayed release (DR/EC) 40 mg PO DAILY Qty: 90 2RF Rx Instructions: take one tablet half an hour before breakfast Referrals: Physician,Unknown J [Primary Care Provider] - Print Language: Turkmen
[2023-02-28 07:52] VITALS: BP 126/69; PULSE 90; RESP 14; TEMP 36.8; O2SAT 99
[2023-02-28 08:05] LABS: MANUAL DIFF FLAG NO
[2023-02-28] MEDS: Ketorolac Tromethamine 30 MG/ML VIAL IM (08:12)
[2023-02-28 08:13] LABS: Appearance Urine Clear; Color Urine Yellow; Glucose Urine UA Negative (Negative); Leukocyte Esterase Urine Moderate (2+) (Negative); Nitrite Urine Negative (Negative); Specific Gravity - Urine 1.015 (1.005-1.025); UMIC TRIGGER UACC YES; Urine Blood Negative (Negative); Urine Ketones Negative (Negative); Urine Protein Negative (Neg-Trace)
[2023-02-28 08:18] LABS: Anion Gap 15 (12-20); Bacteria Urine None Seen (None Seen); Blood Urea Nitrogen 17 mg/dL (9-16); Calcium 8.8 mg/dL (8.4-10.2); Carbon Dioxide 25 mmol/L (22-29); Chloride 103 mmol/L (96-108); Creatinine Clr Calc Pharmacy 63.1; Estimated Glomerular Filt Rate > 60; Glucose Random 233 mg/dL (60-115); Hyaline Casts Urine 0-2 /LPF (0-2); Potassium 3.7 mmol/L (3.3-5.1); RBC Urine 0-2 /HPF (0-2); Sodium 139 mmol/L (135-145); UACC Culture Trigger YES
[2023-02-28 08:32] LABS: Basophils Absolute Auto 0.1 X10*3/uL (0.0-0.2); Basophils Percent Auto 1.1 % (0-2); Eosinophils Absolute Auto 0.1 X10*3/uL (0.0-0.4); Eosinophils Percent Auto 1.7 % (0-4); Hemoglobin 11.2 g/dl (12.0-16.0); Imm Gran Abs Auto 0.02 X10*3/uL (0.00-0.03); Imm Gran Pct Auto 0.4 % (0.0-0.4); Lymphocytes Percent Auto 19.2 % (20-40); Mean Corpuscular HGB Conc 32.9 g/dl (31.0-35.0); Mean Corpuscular Hemoglobin 25.4 pg (27.0-33.0); Mean Corpuscular Volume 77.1 fL (80.0-98.0); Mean Platelet Volume 10.8 fL (9.4-12.3); Monocytes Absolute Auto 0.4 X10*3/uL (0.1-1.2); Monocytes Percent Auto 7.1 % (2-11); Neutrophils Absolute Auto 3.8 x10*3/uL (2.0-8.3); Neutrophils Percent Auto 70.5 % (45-73); Platelet Count 250 X10*3/uL (160-400); Red Blood Count 4.41 X10*6/uL (4.20-5.50); Red Cell Distribution Width 13.1 % (11.0-16.0); White Blood Count 5.4 X10*3/uL (4.8-10.8)
[2023-02-28 09:07] VITALS: BP 130/63; PULSE 84; RESP 15; O2SAT 99
== END 2023-02-28 09:10 | disposition home or self-care (01) ==
PROVIDERS: Nurse Practitioner Family; Emergency Provider Emergency Medicine
DX: N39.0 Urinary tract infection, site not specified (principal); B96.20 Unspecified Escherichia coli [E. coli] as the cause of diseases classified elsewhere; E11.9 Type 2 diabetes mellitus without complications; I10 Essential (primary) hypertension; E78.5 Hyperlipidemia, unspecified; Z79.84 Long term (current) use of oral hypoglycemic drugs; Z79.899 Other long term (current) drug therapy; Z87.891 Personal history of nicotine dependence
CPT/HCPCS: 36415; 74176; 80048; 81001; 85025; 87086; 87088; 87186; 96372; 99284; J1885

== ENCOUNTER → 2023-03-13 09:22 | Outpatient (BNVA) | payer OTHER, MEDICAID, SELFPAY | PROVIDERS: Visit Provider Nurse Practitioner Family | DX: Z13.89 Encounter for screening for other disorder (principal) ==

== ENCOUNTER → 2023-03-16 12:09 | Outpatient (BNVA) | payer OTHER, MEDICAID, SELFPAY | PROVIDERS: PCP Registered Nurse; Visit Provider Internal Medicine | DX: Z13.89 Encounter for screening for other disorder (principal) ==

== ENCOUNTER 2023-03-17 06:04 | Day surgery (SDC) | payer OTHER, MEDICAID, SELFPAY ==
--- NOTE | 2023-03-16 09:29 | HO.ANESPROP2 ---
HPI - Anesthesia Eval Consult details Narrative: 62yo F for Cystoscopy Hydrodistention of Bladder Cardiac cleared s/p spinal stim 10/2022 with GA-ETT 7.5 PMFSH Active Problems Active Problems: All Active Problems (Updated 03/01/23 @ 00:02 by Nhi Milligan) Palpitations (Acute) Lower abdominal pain (Acute) Gross hematuria (Acute) Varicose veins of right lower extremity with inflammation (Acute) Toe pain (Acute) History of thymectomy (Acute) Pulmonary nodules (Acute) Controlled diabetes mellitus with diabetic polyneuropathy (Acute) Paronychia (Acute) Non-cardiac chest pain (Acute) De Quervain's tenosynovitis, left (Acute) Nail deformity (Acute) Patellofemoral arthritis of left knee (Acute) Patellofemoral arthritis of right knee (Acute) Hematuria (Acute) Pelvic pain in female (Acute) Chronic pelvic pain in female (Acute) Dysuria (Acute) Dyspareunia in female (Acute) Myofascial pain (Acute) Atrophic vaginitis (Acute) Effusion, right knee (Acute) Right knee pain (Acute) Osteoarthritis of right knee (Acute) CRPS (complex regional pain syndrome type I) (Acute) History of thyroid cancer (Acute) Hematuria (Acute) Mass of spine (Acute) Type 2 diabetes mellitus with polyneuropathy (Acute) DM2 (diabetes mellitus, type 2) (Acute) Constipation by delayed colonic transit (Acute) Gastritis (Acute) Hypertension (Acute) Dyslipidemia (Acute) Post-surgical hypothyroidism (Acute) Primary thyroid cancer (Acute) Vitamin D deficiency (Acute) Past Medical History Medical History Blood in urine Constipation by delayed colonic transit Dyslipidemia Gastritis Hematuria Hypertension Mass of spine Post-surgical hypothyroidism Primary thyroid cancer Pulmonary nodules Thymoma Thyroid cancer Toe pain Tubular adenoma of colon Type 2 diabetes mellitus with polyneuropathy Vitamin D deficiency Family History Family History Father Stroke Heart attack Mother Diabetes mellitus Family/Other Family history of cancer Sister Stomach cancer Family/Other Thyroid cancer Family history of problems with anesthesia: No Surgical History Surgical History History of back surgery History of esophagogastroduodenoscopy (EGD) History of thymectomy Hx of section Hx of colonoscopy Hx of hernia repair Hx of hysterectomy Hx of thyroidectomy History of Problems with Anesthesia: No Social History Social History Household Members: Spouse, Children and Other Alcohol intake: unknown Patient Tobacco Use Status: Former Tobacco user Tobacco use type: Cigarette Second Hand Smoke Exposure: No Sexual orientation: Straight/Heterosexual Gender identity: Female Meds Allergies Allergy/AdvReac Type Severity Reaction Status Date / Time Penicillins [PENICILLINS] Allergy Unknown HIVES Verified 03/16/23 12:41 Home Medications Medication Instructions Recorded Confirmed Last Taken Type losartan 50 mg tablet 50 mg PO BID 10/10/20 03/17/23 01/24/21 09:00 History metoprolol succinate 50 mg 50 mg PO DAILY 02/06/21 03/17/23 Unknown History tablet,extended release 24 hr albuterol sulfate 90 mcg/actuation 2 puff inhalation Q4-6H PRN 09/05/22 03/17/23 Unknown History aerosol inhaler (ProAir HFA) Wheezing rosuvastatin 10 mg tablet 10 mg PO QAM 03/16/23 03/17/23 Unknown History hydrochlorothiazide 12.5 mg tablet 12.5 mg PO DAILY 03/17/23 03/17/23 Unknown History Exam Exam Date and Time: March 16, 2023 0929 Pertinent Lab Results Pertinent Lab Results: Laboratory Tests 02/28/23 02/28/23 08:00 08:00 WBC 5.4 Hgb 11.2 L Hct 34.0 L Plt Count 250 Sodium 139 Potassium 3.7 Chloride 103 Carbon Dioxide 25 BUN 17 H Creatinine 0.81 Narrative Narrative: EKG 02/2023 Sinus rhythm 94 beats per minute, early repolarization, QTC 440 milliseconds. Holter 02/2023 Conclusion: 1. Patient was monitored for total period of 6 days and 23 hours 2. Baseline was normal sinus rhythm with average heart rate of 89 beats per minute 3. Very rare ectopy noted 4. No pauses noted 5. No patient reported symptoms Assessment and Plan Assessment Anesthesia Assessment: Chart Reviewed Final Anesthetic Review Family History of Problems with Anesthesia: No History of Problems with Anesthesia: No
[2023-03-17 06:15] VITALS: BMI 26.0
[2023-03-17 06:36] VITALS: BP 124/66; PULSE 95; RESP 18; TEMP 36.1; O2SAT 98; BMI 26.0
[2023-03-17 07:01] LABS: Glucose, Whole Blood 169 mg/dL (60-115)
--- NOTE | 2023-03-17 07:23 | P.CONAN_ITS ---
[facility] Active Problems Active Problems: All Active Problems (Updated 03/01/23 @ 00:02 by Nhi Milligan) Palpitations (Acute) Lower abdominal pain (Acute) Gross hematuria (Acute) Varicose veins of right lower extremity with inflammation (Acute) Toe pain (Acute) History of thymectomy (Acute) Pulmonary nodules (Acute) Controlled diabetes mellitus with diabetic polyneuropathy (Acute) Paronychia (Acute) Non-cardiac chest pain (Acute) De Quervain's tenosynovitis, left (Acute) Nail deformity (Acute) Patellofemoral arthritis of left knee (Acute) Patellofemoral arthritis of right knee (Acute) Hematuria (Acute) Pelvic pain in female (Acute) Chronic pelvic pain in female (Acute) Dysuria (Acute) Dyspareunia in female (Acute) Myofascial pain (Acute) Atrophic vaginitis (Acute) Effusion, right knee (Acute) Right knee pain (Acute) Osteoarthritis of right knee (Acute) CRPS (complex regional pain syndrome type I) (Acute) History of thyroid cancer (Acute) Hematuria (Acute) Mass of spine (Acute) Type 2 diabetes mellitus with polyneuropathy (Acute) DM2 (diabetes mellitus, type 2) (Acute) Constipation by delayed colonic transit (Acute) Gastritis (Acute) Hypertension (Acute) Dyslipidemia (Acute) Post-surgical hypothyroidism (Acute) Primary thyroid cancer (Acute) Vitamin D deficiency (Acute) Past Medical History Medical History Blood in urine Constipation by delayed colonic transit Dyslipidemia Gastritis Hematuria Hypertension Mass of spine Post-surgical hypothyroidism Primary thyroid cancer Pulmonary nodules Thymoma Thyroid cancer Toe pain Tubular adenoma of colon Type 2 diabetes mellitus with polyneuropathy Vitamin D deficiency Family History Family History Father Stroke Heart attack Mother Diabetes mellitus Family/Other Family history of cancer Sister Stomach cancer Family/Other Thyroid cancer Family history of problems with anesthesia: No Surgical History Surgical History History of back surgery History of esophagogastroduodenoscopy (EGD) History of thymectomy Hx of section Hx of colonoscopy Hx of hernia repair Hx of hysterectomy Hx of thyroidectomy History of Problems with Anesthesia: No Social History Social History Household Members: Spouse, Children and Other Alcohol intake: unknown Patient Tobacco Use Status: Former Tobacco user Tobacco use type: Cigarette Second Hand Smoke Exposure: No Use of substances other than those prescribed or required for medical reasons: No Are you DNR?: No Advance Directives: No Advance Directives Information Provided: Yes Sexual orientation: Straight/Heterosexual Gender identity: Female Meds Allergies Allergy/AdvReac Type Severity Reaction Status Date / Time Penicillins [PENICILLINS] Allergy Unknown HIVES Verified 03/16/23 12:41 Active Medications: Current Medications Cefazolin Sodium/Dextrose (Ancef) 2 gm in 50 mls @ 100 mls/hr IV PREOP ONE Stop: 03/16/23 18:02 Lactated Ringer's (Lr) 1,000 mls @ 100 mls/hr IVCONT .Q10H JUAN Home Medications Medication Instructions Recorded Confirmed Last Taken Type losartan 50 mg tablet 50 mg PO BID 10/10/20 03/17/23 01/24/21 09:00 History metoprolol succinate 50 mg 50 mg PO DAILY 02/06/21 03/17/23 Unknown History tablet,extended release 24 hr albuterol sulfate 90 mcg/actuation 2 puff inhalation Q4-6H PRN 09/05/22 03/17/23 Unknown History aerosol inhaler (ProAir HFA) Wheezing rosuvastatin 10 mg tablet 10 mg PO QAM 03/16/23 03/17/23 Unknown History hydrochlorothiazide 12.5 mg tablet 12.5 mg PO DAILY 03/17/23 03/17/23 Unknown History Exam Exam Date and Time: March 17, 2023722 Height,Weight and Vital Signs: Height 5 ft 5 in Weight 70.76 kg Last Vital Signs Temp 97.0 F 03/17/23 06:36 Pulse 95 03/17/23 06:36 Resp 18 03/17/23 06:36 BP 124/66 03/17/23 06:36 Pulse Ox 98 03/17/23 06:36 O2 Del Method Room Air 03/17/23 06:36 Pertinent Lab Results Pertinent Lab Results: Laboratory Tests 03/17/23 06:35 POC Glucose 169 H Airway Mallampati Class: II TM Dist: >3cm Neck ROM: Full Heart: RRR Lungs: CTA Assessment and Plan Final Anesthetic Review Family History of Problems with Anesthesia: No History of Problems with Anesthesia: No Final Preanesthetic Review: Meds/Allgs Chart Reviewed, Consent Obtained/Reviewed and Anes Risks/Benef Reviewed Patient Risk: Intermediate Procedure Risk: Low Anesthetic Plan Anesthetic Plan: GA Disposition: Standard PACU
[2023-03-17] MEDS: Lactated Ringers 1,000 ML 100 ML IVCONT (07:29)
--- NOTE | 2023-03-17 07:29 | P.HPSUR_ITS ---
Pre-Procedural Eval Section A Date of Service: 03/17/23 The patient is an INPATIENT: No Changes since office visit: No Cold of Flu in the past 2 weeks, No New Medical Problems, No Changes in Medication and No Patient answered all questions The History & Physical has been completed within 30 days and I have reviewed it.: No Section B Chief Complaint: Dysuria, hematuria, pelvic pain Details of Present Illness: Sapna is a 62 year old female here for further evaluation hematuria and pelvic pain. 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 States last year had pain in stomach and blood in urine about every 3 months last episode went to ED on 01/11/23 and was given abx for UTI. Reviewed CT imaging - kidneys wnl no stones Plan: Further evaluation with Cystoscopy Hydrodistension, possible bladder biopsy Relevant Family History (Specify if Yes): No Medical History: No relevant PMH Allergies: Allergies Allergy/AdvReac Type Severity Reaction Status Date / Time Penicillins [PENICILLINS] Allergy Unknown HIVES Verified 03/16/23 12:41 Exam Surgical H&P Exam: Normal: HEENT, Normal: Heart, Normal: Lungs, Normal: Extremities, Normal: Abdomen, Normal: Skin and Normal: Neurological Plan Diagnosis/Plan: Unchanged I have reviewed the history and physical and performed a pertinent physical examination on my patient. No changes have occurred unless specified. Cystoscopy Hydrodistension. Possible bladder biopsy. Discussed risks to include but not limited to, blood in the urine, burning with urination, urgency. Time Spent With Patient Time: Total time managing care of this patient today ____ minutes.
[2023-03-17 08:36] VITALS: BP 129/68; PULSE 95; RESP 16; TEMP 36.1; O2SAT 94
--- NOTE | 2023-03-17 08:38 | P.OP_ITS ---
Operative Note Operative Note Date of Service: 03/17/23 Narrative: PREOP DIAGNOSIS: Dysuria, pelvic pain, gross hematuria POSTOP DIAGNOSIS: Dysuria, pelvic pain, gross hematuria, cystitis PROCEDURE: CYSTOSCOPY Bladder biopsy, fulguration Anethesia: General Surgeon: Dr. Analy Campos Indications: The patient has presented with persistent dysuria and pelvic pain post antibiotic therapy, history of gross hematuria and treatment for culture positive UTI. Details of procedure: The patient was brought into the operating room placed on the OR table in supine position. 2 g of Ancef IV. General anesthesia was administered. The patient was repositioned into lithotomy position, prepped and draped in the usual sterile fashion. Time-out was done per protocol. A 22 fr cystoscope was placed transurethrally into the bladder. Urine was drained from the bladder measuring 200 mL. Urine was sent for culture. The right and left ureteral orifices were visualized. The entire bladder was visualized. There were erythematous changes noted. Along the trigone there were bolus changes suggestive of cystitis follicular wrists. On the posterior bladder wall there were flat, velvet-like changes noted. There were no papillary lesions vi sualized. Using the flexible biopsy forceps biopsies were taken from these areas mentioned. The cautery was used for hemostasis and fulguration. The bladder was emptied. The cystoscope was removed. 2% lidocaine urojet was passed transurethrally with Solution of (1% lidocaine plain, 15 mL, 0.5 % Marcaine 15 mL). The patient was brought out of anesthesia and taken to recovery in stable condition. Complications: None Drains: none
[2023-03-17 08:41] VITALS: BP 135/75; PULSE 88; RESP 14; O2SAT 98
[2023-03-17 08:46] VITALS: BP 143/85; PULSE 90; RESP 16; O2SAT 100
[2023-03-17 08:51] VITALS: BP 133/76; PULSE 87; RESP 16; O2SAT 99
[2023-03-17] MEDS: Phenazopyridine HCL 100 MG TABLET 200 MG PO (09:01)
[2023-03-17 09:06] VITALS: BP 141/84; PULSE 86; RESP 16; TEMP 36.3; O2SAT 97
== END 2023-03-17 09:49 ==
PROVIDERS: Visit Provider Urology
PROC: 0T7B7ZZ Dilation of Bladder, Via Natural or Artificial Opening (ICD-10-PCS; CPT 52234; principal; 2023-03-17 07:30)
DX: N30.91 Cystitis, unspecified with hematuria (principal); R31.0 Gross hematuria; R30.0 Dysuria; R10.2 Pelvic and perineal pain; K59.01 Slow transit constipation; E78.5 Hyperlipidemia, unspecified; I10 Essential (primary) hypertension; E11.42 Type 2 diabetes mellitus with diabetic polyneuropathy; E89.0 Postprocedural hypothyroidism; R00.2 Palpitations; Z85.850 Personal history of malignant neoplasm of thyroid; Z79.84 Long term (current) use of oral hypoglycemic drugs; Z79.899 Other long term (current) drug therapy; Z88.0 Allergy status to penicillin; Z87.891 Personal history of nicotine dependence
CPT/HCPCS: 52234; 82947; 87086; 88305; J0690; J1100; J1643; J2250; J2405; J2795; J3010

== ENCOUNTER 2023-04-01 16:32 | Outpatient (REF) | payer OTHER, MEDICAID, SELFPAY ==
[2023-04-01 17:40] LABS: Appearance Urine Clear; Color Urine Yellow; Glucose Urine UA Negative (Negative); Leukocyte Esterase Urine Trace (Negative); Nitrite Urine Negative (Negative); UMIC TRIGGER UA YES; Urine Blood Negative (Negative); Urine Ketones Negative (Negative); Urine Protein Negative (Neg-Trace)
[2023-04-01 17:43] LABS: Bacteria Urine None Seen (None Seen); Hyaline Casts Urine 0-2 /LPF (0-2); RBC Urine 0-2 /HPF (0-2); WBC Urine 0-5 /HPF (0-5)
== END 2023-04-01 16:33 | disposition home or self-care (01) ==
LOC: HO.LNP 16:32
PROVIDERS: Visit Provider Urology
DX: R10.30 Lower abdominal pain, unspecified (principal); R30.0 Dysuria
CPT/HCPCS: 81001; 87086

== ENCOUNTER → 2023-04-06 09:09 | Outpatient (BNVA) | payer OTHER, MEDICAID, SELFPAY | PROVIDERS: Visit Provider Urology ==

== ENCOUNTER → 2023-04-10 10:39 | Outpatient (BNVA) | payer OTHER, MEDICAID, SELFPAY | PROVIDERS: PCP Registered Nurse; Visit Provider Orthopaedic Surgery ==

== ENCOUNTER → 2023-04-14 14:18 | Outpatient (BNVA) | payer OTHER, MEDICAID, SELFPAY | PROVIDERS: PCP Registered Nurse; Visit Provider Urology | DX: R39.89 Other symptoms and signs involving the genitourinary system (principal) | CPT/HCPCS: 51700; 51702; J1643; J2920 ==

== ENCOUNTER 2023-04-20 13:29 | Outpatient (REF) | payer OTHER, MEDICAID, SELFPAY | END 2023-04-20 13:30 | disposition home or self-care (01) | LOC: HO.MRI 13:29 | PROVIDERS: Visit Provider Orthopaedic Surgery | DX: Z13.89 Encounter for screening for other disorder (principal) ==

== ENCOUNTER → 2023-04-21 10:23 | Outpatient (BNVA) | payer OTHER, MEDICAID, SELFPAY | PROVIDERS: PCP Registered Nurse; Visit Provider Urology | DX: R39.89 Other symptoms and signs involving the genitourinary system (principal) | CPT/HCPCS: 51700; 51701; J1643; J2920 ==

== ENCOUNTER 2023-04-25 12:36 | Outpatient (REF) | payer OTHER, MEDICAID, SELFPAY | END 2023-04-25 12:37 | disposition home or self-care (01) | LOC: HO.MRI 12:36 | PROVIDERS: PCP Registered Nurse; Visit Provider Orthopaedic Surgery | DX: Z13.89 Encounter for screening for other disorder (principal) ==

== ENCOUNTER → 2023-04-28 10:31 | Outpatient (BNVA) | payer OTHER, MEDICAID, SELFPAY | PROVIDERS: PCP Registered Nurse; Visit Provider Urology | DX: N30.20 Other chronic cystitis without hematuria (principal); R39.89 Other symptoms and signs involving the genitourinary system | CPT/HCPCS: 51700; 51701; 51702; J1643; J2920 ==

== ENCOUNTER → 2023-05-01 11:08 | Outpatient (BNVA) | payer OTHER, MEDICAID, SELFPAY | PROVIDERS: PCP Registered Nurse; Visit Provider Orthopaedic Surgery | DX: M17.11 Unilateral primary osteoarthritis, right knee (principal); M25.461 Effusion, right knee; G90.50 Complex regional pain syndrome I, unspecified; E11.42 Type 2 diabetes mellitus with diabetic polyneuropathy | CPT/HCPCS: 20610; J1100 ==

== ENCOUNTER → 2023-05-05 10:33 | Outpatient (BNVA) | payer OTHER, MEDICAID, SELFPAY | PROVIDERS: PCP Registered Nurse; Visit Provider Urology | DX: N30.20 Other chronic cystitis without hematuria (principal) | CPT/HCPCS: J1643; J2920 ==

== ENCOUNTER 2023-05-06 05:43 | Emergency (ER) | payer OTHER, SELFPAY ==
--- NOTE | 2023-05-06 | ECG_ITS ---
Test Reason : PALPITATIONS Blood Pressure : / mmHG Vent. Rate : 093 BPM Atrial Rate : 093 BPM P-R Int : 192 ms QRS Dur : 076 ms QT Int : 358 ms P-R-T Axes : 068 005 063 degrees QTc Int : 445 ms Normal sinus rhythm Possible Left atrial enlargement Cannot rule out Inferior infarct , age undetermined Abnormal ECG When compared with ECG of 11-JAN-2023 09:27, No significant change was found Referred By: Generic ED Physician Electronically Signed By:PABLO BURGOS
[2023-05-06 05:43] VITALS: BP 162/83; PULSE 105; RESP 18; TEMP 36.6; O2SAT 98; BMI 20.2
--- NOTE | 2023-05-06 06:02 | MHC.EDTECH ---
Patient was changed into hospital attire ,patient placed on the pump service supervisor ,labs were drawn and sent to lab.
[2023-05-06 06:06] LABS: MANUAL DIFF FLAG NO
[2023-05-06 06:17] LABS: Basophils Absolute Auto 0.1 X10*3/uL (0.0-0.2); Basophils Percent Auto 1.2 % (0-2); Eosinophils Absolute Auto 0.1 X10*3/uL (0.0-0.4); Eosinophils Percent Auto 1.9 % (0-4); Hemoglobin 11.5 g/dl (12.0-16.0); Imm Gran Abs Auto 0.03 X10*3/uL (0.00-0.03); Imm Gran Pct Auto 0.5 % (0.0-0.4); Lymphocytes Percent Auto 34.6 % (20-40); Mean Corpuscular HGB Conc 32.9 g/dl (31.0-35.0); Mean Corpuscular Volume 76.1 fL (80.0-98.0); Mean Platelet Volume 10.4 fL (9.4-12.3); Monocytes Absolute Auto 0.5 X10*3/uL (0.1-1.2); Monocytes Percent Auto 9.2 % (2-11); Neutrophils Absolute Auto 3.1 x10*3/uL (2.0-8.3); Neutrophils Percent Auto 52.6 % (45-73); Platelet Count 265 X10*3/uL (160-400); Red Cell Distribution Width 13.5 % (11.0-16.0); White Blood Count 5.9 X10*3/uL (4.8-10.8)
[2023-05-06 06:23] LABS: Anion Gap 19 (12-20); Blood Urea Nitrogen 16 mg/dL (9-16); Calcium 9.6 mg/dL (8.4-10.2); Carbon Dioxide 23 mmol/L (22-29); Chloride 100 mmol/L (96-108); Creatinine Clr Calc Pharmacy 72.6; Estimated Glomerular Filt Rate > 60; Glucose Random 128 mg/dL (60-115); Potassium 3.5 mmol/L (3.3-5.1); Sodium 138 mmol/L (135-145)
--- NOTE | 2023-05-06 06:27 | ED.GENADULT ---
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 Headache since last week. Denies worst at onset, denies worst headache of life. Denies any syncope. Went to urgent care to the headache and was given ibuprofen and other unknown medication without relief. States pain has spread from left arm down to left leg today as well. States headache and left sided pain are both 7/10. Denies vomiting, diarrhea, or constipation. Denies abdominal, or flank pain. Denies cough, dyspnea, fevers. Denies injury, fall, or other trauma. MD complaint: left arm pain, palpitations Onset (ago): day(s) Location: chest, upper extremity and lower extremity Radiation: extremity and distal Severity scale (1-10): 7 Quality: burning Pain Consistency: constant Relieving factors: none Exacerbating factors: none Associated symptoms: nausea/vomiting (reports nausea, denies vomiting) Treatments prior to arrival: NSAID Related Data Home Medications Medication Instructions Recorded Confirmed losartan 50 mg tablet 50 mg PO BID 10/10/20 03/17/23 metoprolol succinate 50 mg 50 mg PO DAILY 02/06/21 03/17/23 tablet,extended release 24 hr albuterol sulfate 90 mcg/actuation 2 puff inhalation Q4-6H PRN 09/05/22 03/17/23 aerosol inhaler (ProAir HFA) Wheezing rosuvastatin 10 mg tablet 10 mg PO QAM 03/16/23 03/17/23 hydrochlorothiazide 12.5 mg tablet 12.5 mg PO DAILY 03/17/23 03/17/23 Previous Rx's Medication Instructions Recorded blood sugar diagnostic (FreeStyle #100 ea 07/09/21 Lite Strips) blood-glucose meter (FreeStyle #1 ea 03/12/22 Lite Meter kit) flash glucose scanning reader #1 ea 04/11/22 (FreeStyle Emile 2 Cotter) metformin 500 mg tablet,extended 1,000 mg PO BID #360 tabs 09/11/22 release 24 hr pantoprazole 40 mg tablet,delayed 40 mg PO DAILY #90 tabs 01/13/23 release phenazopyridine 200 mg tablet 200 mg PO TID 6 doses #10 tabs 02/28/23 (Pyridium) levothyroxine 125 mcg tablet 125 mcg PO DAILY 30 days #30 tabs 03/09/23 hydrocortisone 2.5 % topical cream 1 appl [place] BID-QID PRN hemorrhoids 03/13/23 with perineal applicator #30 grams (Proctosol HC) nitrofurantoin 100 mg PO Q12H 20 days #40 caps 03/17/23 monohydrate/macrocrystals 100 mg capsule (Macrobid) phenazopyridine 200 mg tablet 200 mg PO TID #30 tabs 03/17/23 (Pyridium) acetaminophen 325 mg tablet 650 mg PO Q6H PRN pain #14 tabs 05/06/23 (Tylenol) ibuprofen 600 mg tablet 600 mg PO Q8H PRN pain #14 tabs 05/06/23 Allergies Allergy/AdvReac Type Severity Reaction Status Date / Time Penicillins [PENICILLINS] Allergy Unknown HIVES Verified 04/10/23 10:59 Review of Systems Review of Systems: Yes all other systems are reviewed and are negative Constitutional: Constitutional: Reports as per [facility] Past Medical History Medical History (Updated 05/06/23 @ 10:31 by Anny Robison NP) Blood in urine Constipation by delayed colonic transit Dyslipidemia Failure of spinal cord stimulator Gastritis Hematuria Hypertension Mass of spine Post-surgical hypothyroidism Primary thyroid cancer Pulmonary nodules Thymoma Thyroid cancer Toe pain Tubular adenoma of colon Type 2 diabetes mellitus with polyneuropathy Vitamin D deficiency Surgical History History of back surgery History of esophagogastroduodenoscopy (EGD) History of thymectomy Hx of section Hx of colonoscopy Hx of hernia repair Hx of hysterectomy Hx of thyroidectomy Family History Family History Father Stroke Heart attack Mother Diabetes mellitus Family/Other Family history of cancer Sister Stomach cancer Family/Other Thyroid cancer Social History Social History (Reviewed 04/10/23 @ 10:59 by [place] Almazan Household Members: Spouse, Children and Other Alcohol intake: unknown Patient Tobacco Use Status: Former Tobacco user Tobacco use type: Cigarette Smoked in Last 30 Days: No Second Hand Smoke Exposure: No Use of substances other than those prescribed or required for medical reasons: No Advance Directives: No Advance Directives Information Provided: Yes Patient : No Sexual orientation: Straight/Heterosexual Gender identity: Female Physical Exam ED Vital Signs: Vital Signs - 24 hr 05/06/23 05:43 05/06/23 07:05 Temperature 97.8 F 98.6 F Pulse Rate 105 H 82 Respiratory Rate 18 13 Blood Pressure 162/83 H 153/72 H Pulse Oximetry 98 99 Oxygen Delivery Method Room Air Room Air BMI result Body Mass Index 20.2 Vital signs have been reviewed and appear to be correct. Blood pressure elevated, states did not take BP medication today. Heart rate slightly tachycardic. Respiratory rate normal. Temperature normal. Oxygen saturation normal. Const General: cooperative, healthy appearing and no acute distress Orientation/consciousness: oriented to person, oriented to place, oriented to time and patient oriented x3 Limitations: no limitations HENMT Head: Yes normocephalic and Yes atraumatic Ears: external ears normal General nose exam: Normal external nose present Face and sinus: Yes face symmetric Mouth: oropharynx normal and moist mucous membranes Throat: Yes uvula midline Eyes Pupils: Equal, round and reactive pupils present Neck Neck: Yes normal visual inspection and Yes supple Resp Effort & Inspection: normal respiratory effort and able to speak in complete sentences Auscultation: clear to auscultation bilaterally Cardio Rate: regular rate Rhythm: regular rhythm Heart sounds: S1 normal heart sound present and S2 normal heart sound present GI Palpation (GI): Soft to palpation and nontender Auscultation: normoactive bowel sounds General: Yes no CVA tenderness Back/Spine/Pelvis Back: no CVA tenderness Skin General skin exam: elasticity normal and turgor normal Neuro General: oriented to person, oriented to place, oriented to time, patient oriented x3, tone normal, moves all extremities, Normal light touch and pain sensation, no focal motor deficits and CN's II-XI intact bilaterally Cranial nerves: Yes Equal, round and reactive pupils present and Yes Bilaterally intact EOM present Cognition (Neuro): normal cognition Motor exam (neuro): 5/5 motor strength present throughout, Normal motor muscle tone present throughout and Motor abnormalities not present Sensory Exam: Normal double simultaneous stimulation for sensation Extrem General: Yes full ROM, Yes no pedal edema and Yes no calf tenderness Right upper extremity: normal to inspection, full ROM and normal capillary refill Left upper extremity: normal to inspection, full ROM, normal capillary refill and shoulder/upper arm Details: abnormal ROM Details: pain with active ROM Details: external rotation- Right lower extremity: normal to inspection, full ROM and normal capillary refill Left lower extremity: normal to inspection, full ROM and normal capillary refill Psych Mental Status: mental status grossly normal Affect: normal affect Thought process: Normal thought process present Course Course Course Narrative: 07:24 Initial troponin 8.2, will obtain delta trop. 09:49 Delta trop negative. Medications Administered Discontinued Medications Generic Name Dose Route Start Last Admin Trade Name Freq PRN Reason Stop Dose Admin Diphenhydramine HCl 25 mg 05/06/23 07:03 05/06/23 07:46 Diphenhydramine Hcl 50 Mg/Ml Vial IVPUSH 05/06/23 07:04 25 mg ONCE ONE Administration Sodium Chloride 1,000 mls @ 999 mls/hr 05/06/23 07:15 05/06/23 09:24 Ns IV 05/06/23 08:15 Infused .Q1H1M JUAN Infusion Ketorolac Tromethamine 15 mg 05/06/23 07:03 05/06/23 07:45 Ketorolac Tromethamine 15 Mg/Ml Vial IVPUSH 05/06/23 07:04 15 mg ONCE ONE Administration Metoclopramide HCl 10 mg 05/06/23 07:03 05/06/23 07:46 Metoclopramide Hcl 10 Mg/2 Ml Vial IVPUSH 05/06/23 07:04 10 mg ONCE ONE Administration Medical Decision Making Medical Decision Making [facility] Narrative: Patient is a 62-year-old female with history of HTN, HLD, failed spinal cord stimulator, palpitations, thyroid CA/total thyroidectomy, DM, and chronic regional pain syndrome presenting to the emergency department with complaint of left arm pain and tingling as well as palpitations, feeling anxious, and nausea since yesterday. On exam patient is awake, A+Ox3, normal neurological exam without focal deficits, LS CTA, RRR, abdomen soft and nontender, 5/5 equal strength all extremities. Increased pain with external rotation of left shoulder. Concern for ACS versus chronic palpitations given report of palpitations and left arm pain, however has history of palpitations and patient stating pain is also to left leg, so less likely cardiac in nature. Will obtain troponin, EKG shows NSR, rate 93 with normal VT and QT intervals. Patient recently saw food cooking machine operator in March, will obtain TSH/free T4 given history of thyroid CA with thyroidectomy. No red flag findings raising concern for ICH/SAH, pseudotumor cerebrii, temporal arteritis, malignancy/mass. Will treat headache and left arm pain with ketorolac, reglan, benadryl while awaiting lab results. 10:23 Patient reports good relief of pain from medications administered in the ED. Delta trop negative. Low risk HEART score. No evidence of STEMI/NSTEMI. TSH low which appears baseline. No other changes in baseline labs. Feel patient is stable for discharge home. Advised Tylenol/ibuprofen for discomfort. Instructed patient to follow up with PCP regarding symptoms. Patient states she is flying to [place] later today but does have a PCP there with whom she can follow up with. Return precautions discussed at bedside. Patient is agreeable with plan. Differential Diagnosis Differential Diagnoses: The differential diagnosis associated with the presentation includes As above. Lab Data MDM Lab Attestation statement: I reviewed the patient's lab results. 05/06/23 06:01 05/06/23 06:01 Labs: Lab Results 05/06/23 05/06/23 05/06/23 Range/Units 06:01 06:01 06:01 WBC 5.9 (4.8-10.8) X10*3/uL RBC 4.60 (4.20-5.50) X10*6/uL Hgb 11.5 L (12.0-16.0) g/dl Hct 35.0 L (37.0-47.0) % MCV 76.1 L (80.0-98.0) fL MCH 25.0 L (27.0-33.0) pg MCHC 32.9 (31.0-35.0) g/dl RDW 13.5 (11.0-16.0) % Plt Count 265 (160-400) X10*3/uL MPV 10.4 (9.4-12.3) fL Immature Gran % (Auto) 0.5 H (0.0-0.4) % Neut % (Auto) 52.6 (45-73) % Lymph % (Auto) 34.6 (20-40) % [place] % (Auto) 9.2 (2-11) % Eos % (Auto) 1.9 (0-4) % Baso % (Auto) 1.2 (0-2) % Lymph # (Auto) 2.0 (1.2-4.9) X10*3/uL [place] # (Auto) 0.5 (0.1-1.2) X10*3/uL Eos # (Auto) 0.1 (0.0-0.4) X10*3/uL Baso # (Auto) 0.1 (0.0-0.2) X10*3/uL Abs Immat Gran (auto) 0.03 (0.00-0.03) X10*3/uL Absolute Neuts (auto) 3.1 (2.0-8.3) x10*3/uL Absolute Nucleated RBC 0.000 (0.0-0.012) X10*3/uL Nucleated RBC % (auto) 0.0 (0.0-0.2) /100WBC Sodium 138 (135-145) mmol/L Potassium 3.5 (3.3-5.1) mmol/L Chloride 100 (96-108) mmol/L Carbon Dioxide 23 (22-29) mmol/L Anion Gap 19 (12-20) BUN 16 (9-16) mg/dL Creatinine 0.70 (0.5-1.4) mg/dL Estim Creat Clear Calc 72.6 Estimated GFR > 60 Random Glucose 128 H (60-115) mg/dL Calcium 9.6 D (8.4-10.2) mg/dL Troponin I High Sens 8.2 D (<3.5-17.0) ng/L TSH 0.02 L (0.32-4.0) uIU/mL Free T4 1.74 (0.71-1.85) ng/dL 05/06/23 Range/Units 09:02 WBC (4.8-10.8) X10*3/uL RBC (4.20-5.50) X10*6/uL Hgb (12.0-16.0) g/dl Hct (37.0-47.0) % MCV (80.0-98.0) fL MCH (27.0-33.0) pg MCHC (31.0-35.0) g/dl RDW (11.0-16.0) % Plt Count (160-400) X10*3/uL MPV (9.4-12.3) fL Immature Gran % (Auto) (0.0-0.4) % Neut % (Auto) (45-73) % Lymph % (Auto) (20-40) % [place] % (Auto) (2-11) % Eos % (Auto) (0-4) % Baso % (Auto) (0-2) % Lymph # (Auto) (1.2-4.9) X10*3/uL [place] # (Auto) (0.1-1.2) X10*3/uL Eos # (Auto) (0.0-0.4) X10*3/uL Baso # (Auto) (0.0-0.2) X10*3/uL Abs Immat Gran (auto) (0.00-0.03) X10*3/uL Absolute Neuts (auto) (2.0-8.3) x10*3/uL Absolute Nucleated RBC (0.0-0.012) X10*3/uL Nucleated RBC % (auto) (0.0-0.2) /100WBC Sodium (135-145) mmol/L Potassium (3.3-5.1) mmol/L Chloride (96-108) mmol/L Carbon Dioxide (22-29) mmol/L Anion Gap (12-20) BUN (9-16) mg/dL Creatinine (0.5-1.4) mg/dL Estim Creat Clear Calc Estimated GFR Random Glucose (60-115) mg/dL Calcium (8.4-10.2) mg/dL Troponin I High Sens 8.7 (<3.5-17.0) ng/L TSH (0.32-4.0) uIU/mL Free T4 (0.71-1.85) ng/dL External Record Review External record reviewed: Inpatient record, Office record and Outpatient record Prescription Management I considered prescription management with: Pain Medication Chronic Conditions Patient?s care impacted by: Diabetes and Hypertension Scores Heart Score History: -1- moderately suspicious ECG: -0- normal Age: -1- >45 - <65 Risk factory: -1- 1 or 2 risk factors Troponin: -0- < or = normal limit Score: 3 Risk: 1.7% Discharge Plan Discharge Clinical Impression: Arm pain, left, Palpitations, Headache Patient Disposition: Home, Self-Care Instructions: Heart Palpitations (DC), Acute Headache (DC), Arm Pain (ED) Additional Instructions: Hoy lo evaluaron en el departamento de emergencias por dolor de justina, palpitaciones y dolor en el brazo fariha. Saha evaluaci?n no self mostrado signos de condiciones m?dicas que requieran chaitanya intervenci?n de emergencia en oracio momento; sin embargo, le recomendamos que realice un seguimiento con saha m?dico de atenci?n primaria o saha cardi?logo lo antes posible para realizar m?s pruebas trini paciente ambulatorio. Programe chaitanya anne de seguimiento con saha m?dico de atenci?n primaria lo antes posible. Regrese a la kezia de emergencias si experimenta dolor de pecho que empeora o no se puede controlar, dificultad para respirar, aturdimiento, sensaci?n de desmayo, p?rdida del conocimiento, n?useas, v?mitos o cualquier otro s?ntoma preocupante. Prescriptions: New ibuprofen 600 mg tablet 600 mg PO Q8H PRN (Reason: pain) Qty: 14 0RF acetaminophen [Tylenol] 325 mg tablet 650 mg PO Q6H PRN (Reason: pain) Qty: 14 0RF No Action (DME) FreeStyle Lite Strips Strip See Rx Instructions .ROUTE .MEDSUPPLY Qty: 100 10RF Rx Instructions: Test blood glucose twice per day (DME) FreeStyle Emile 2 Cotter Misc See Rx Instructions .ROUTE .MEDSUPPLY Qty: 1 0RF Rx Instructions: As directed metformin 500 mg tablet extended release 24 hr 1,000 mg PO BID Qty: 360 1RF levothyroxine 125 mcg tablet 125 mcg PO DAILY 30 Days Qty: 30 3RF albuterol sulfate [ProAir HFA] 90 mcg/actuation HFA aerosol inhaler 2 puff INHALATION Q4-6H PRN (Reason: Wheezing) phenazopyridine [Pyridium] 200 mg tablet 200 mg PO TID Qty: 10 0RF hydrochlorothiazide 12.5 mg tablet 12.5 mg PO DAILY phenazopyridine [Pyridium] 200 mg tablet 200 mg PO TID Qty: 30 0RF Rx Instructions: take with food as can cause nausea nitrofurantoin monohyd/m-cryst [Macrobid] 100 mg capsule 100 mg PO Q12H 20 Days Qty: 40 0RF Rx Instructions: must administer with a meal/food metoprolol succinate 50 mg tablet extended release 24 hr 50 mg PO DAILY losartan 50 mg tablet 50 mg PO BID rosuvastatin 10 mg tablet 10 mg PO QAM (DME) blood-glucose meter [FreeStyle Lite Meter] Kit See Rx Instructions .ROUTE .MEDSUPPLY Qty: 1 0RF Rx Instructions: As directed pantoprazole 40 mg tablet,delayed release (DR/EC) 40 mg PO DAILY Qty: 90 2RF Rx Instructions: take one tablet half an hour before breakfast hydrocortisone [Proctosol HC] 2.5 % cream with perineal applicator 1 appl [place] BID-QID PRN (Reason: hemorrhoids) Qty: 30 2RF Print Language: Latvian
[2023-05-06 06:30] LABS: Troponin-I High Sensitivity 8.2 ng/L (<3.5-17.0)
[2023-05-06 07:05] VITALS: BP 153/72; PULSE 82; RESP 13; TEMP 37; O2SAT 99
[2023-05-06] MEDS: Ketorolac Tromethamine 15 MG/ML VIAL IVPUSH (07:45)
[2023-05-06] MEDS: 0.9 % Sodium Chloride 1,000 ML 999 ML IV (07:45)
[2023-05-06] MEDS: Metoclopramide HCl 10 MG/2 ML VIAL IVPUSH (07:46)
[2023-05-06] MEDS: diphenhydrAMINE HCL 50 MG/ML VIAL 25 MG IVPUSH (07:46)
[2023-05-06 08:17] LABS: Free T4 (Free Thyroxine) 1.74 ng/dL (0.71-1.85); Thyroid Stimulating Hormone 0.02 uIU/mL (0.32-4.0)
[2023-05-06 09:38] LABS: Troponin-I High Sensitivity 8.7 ng/L (<3.5-17.0)
== END 2023-05-06 11:33 | disposition home or self-care (01) ==
PROVIDERS: Registered Nurse Emergency; Emergency Provider Emergency Medicine; PCP Registered Nurse
DX: M79.602 Pain in left arm (principal); R00.2 Palpitations; R51.9 Headache, unspecified; E11.9 Type 2 diabetes mellitus without complications; I10 Essential (primary) hypertension; E78.5 Hyperlipidemia, unspecified; G89.4 Chronic pain syndrome; Z87.891 Personal history of nicotine dependence; Z79.84 Long term (current) use of oral hypoglycemic drugs; Z79.02 Long term (current) use of antithrombotics/antiplatelets; Z79.899 Other long term (current) drug therapy
CPT/HCPCS: 36415; 80048; 84439; 84443; 84484; 85025; 93005; 96361; 96374; 96375; 99284; 99285; J1200; J1885; J2765

== ENCOUNTER 2023-07-01 08:05 | Outpatient (AMB) | payer OTHER, MEDICAID, SELFPAY ==
--- NOTE | 2023-07-01 09:05 | MHC.OFFVIS ---
Intake Vital Signs 07/01/23 09:08 Height 5 ft 6 in Weight 142 lb 6.698 oz BMI 23.0 BP 135/61 Blood Pressure Location Lt brachial Position Sitting Pulse 79 Intake Visit Reasons: 3 month fu Intake Note: Sapna presents in office as a est.patient for a Constipation by delayed colonic transit. PT CC: pt reports having LLQP, bloating , diarrhea pt denies any other GI Issues [employer] Required: Yes [employer] Language: Turkish Accompanied by: Self / Same As Patient Allergies Penicillins [PENICILLINS] Allergy (Unknown, Verified 07/01/23 09:09) HIVES HPI 3 month fu HPI Details LAST VISIT Lower abdominal pain Patient reports occasional lower abdominal discomfort, recently treated with antibiotics for UTI, no tenderness on exam Constipation by delayed colonic transit Patient increased fruits and fluids. Reports that she is moving her bowels better now Rectal pain Patient reports rectal pain and burning. Mildly excoriated area with hemorrhoids. Will send patient script for Proctosol I will see her in 3 months, sooner on as needed basis. Patient is agreeable to this plan and verbalizes understanding of instructions. She was given the opportunity to ask questions and all questions answered. ? Thank you for allowing me to participate in her care Plan Medications New hydrocortisone 2.5% (Proctosol HC) 1 appl [place] BID-QID PRN 30 grams 2RF hemorrhoids K64.9 TODAY'S VISIT Patient is here today for follow-up. Patient reports that she continues to this pain in the right lower quadrant. Pain is on and off. Patient reports to have postprandial lose stools. Denies melena, hematochezia, unintentional weight loss or ribbon like stools. Patient has this pain for the last several years. Colonoscopy was done in 2018 and patient was complaining about the pain then. Patient had multiple CT scans since and all show no acute processes. Sigmoid diverticula with normal appearing ileum, no appendicitis, normal gallbladder. No true source for pain found. Patient has no pancreatitis. No nausea or vomiting. No dyspepsia, dysphagia or odynophagia. Patient reports that she was in [place] and has severe right lower quadrant pain. Was going to go for colonoscopy, however she told the medical staff that she is coming back to [facility] and will have the procedure there. [facility] Medical History Blood in urine Constipation by delayed colonic transit Dyslipidemia Failure of spinal cord stimulator Gastritis Hematuria Hypertension Mass of spine Post-surgical hypothyroidism Primary thyroid cancer Pulmonary nodules Thymoma Thyroid cancer Toe pain Tubular adenoma of colon Type 2 diabetes mellitus with polyneuropathy Vitamin D deficiency Surgical History History of back surgery History of esophagogastroduodenoscopy (EGD) History of thymectomy Hx of section Hx of colonoscopy Hx of hernia repair Hx of hysterectomy Hx of thyroidectomy Family History Father Stroke Heart attack Mother Diabetes mellitus Family/Other Family history of cancer Sister Stomach cancer Family/Other Thyroid cancer Social History Household Members: Spouse, Children and Other Alcohol intake: unknown Patient Tobacco Use Status: Former Tobacco user Tobacco use type: Cigarette Second Hand Smoke Exposure: No Sexual orientation: Straight/Heterosexual Gender identity: Female Review of Systems Const Denies weight gain and Denies weight loss ENT Reports no additional complaints, Denies dysphagia and Denies odynophagia Card Reports no additional complaints Resp Reports no additional complaints GI Reports abdominal pain (Right lower quadrant occasionally), Denies belching, Denies melena, Denies bloating, Denies change in bowel habits, Denies dysphagia, Denies excessive flatus, Denies dyspepsia, Denies heartburn, Denies diarrhea, Denies loose stools, Denies nausea, Denies odynophagia and Denies vomiting Reports no additional complaints Musc Reports no additional complaints Neuro Reports no additional complaints Psych Reports no additional complaints Endo Reports no additional complaints Physical Exam Vital Signs: Last Vital Signs Pulse 79 07/01/23 09:08 BP 135/61 07/01/23 09:08 BMI result Body Mass Index 23.0 Const General: healthy appearing, no acute distress and well developed Nutritional Appearance: well nourished Orientation/consciousness: patient oriented x3 HEENT Head: Yes normal to inspection, Yes normocephalic and Yes atraumatic Face and sinus: Yes normal facial exam Mouth: Normal oral and palatal mucosa present Throat: Yes posterior oropharynx normal, Yes tonsils normal and Yes uvula midline Eyes General: appearance normal, both eyes and all related structures Neck Neck: Yes normal visual inspection, Yes full ROM and Yes trachea midline Thyroid: Thyroid normal Resp Effort & Inspection: normal respiratory effort, able to speak in complete sentences, no tracheal deviation and symmetric chest movement Auscultation: clear to auscultation bilaterally Cardio Rate: regular rate Heart sounds: S1 normal heart sound present and S2 normal heart sound present GI Inspection: Yes normal to inspection and No distended Palpation (GI): Soft to palpation, not firm, nontender and No hepatosplenomegaly present Auscultation: normal bowel sounds General: Yes no CVA tenderness Back/Spine/Pelvis Back: no CVA tenderness Skin General skin exam: elasticity normal, turgor normal and dry skin Neuro General: patient oriented x3 Psych Appearance: grossly normal Mental Status: mental status grossly normal Speech and movement: Normal speech and movement present Assessment & Plan Assessment & Plan (1) Lower abdominal pain: Code(s): R10.30 - Lower abdominal pain, unspecified Plan: Patient continues with lower abdominal pain. Most likely related to the food the patient is not eliminating her bowels completely, gas trapping pain. Patient has a history of frequent UTIs. (2) Postprandial diarrhea: Code(s): K52.9 - Noninfective gastroenteritis and colitis, unspecified Plan: Frequent postprandial loose stools. Discussed with patient avoiding dietary triggers. Patient also reports lower abdominal pain in right lower quadrant sometimes in the left lower quadrant. Will send script for Citrucel and help her bulk her stools. Patient does not eliminate her bowels completely though. Will send a script for Senokot. Patient will return in 5 weeks and we will discuss going for colonoscopy. We will go over prep and clear liquid diet in detail. Patient is agreeable to this plan and verbalizes understanding of instructions. She was given the opportunity to ask questions all questions answered. Thank you for allowing me to participate in her care Medications: New sennosides (Natural Senna Laxative) 8.6 mg PO BEDTIME 90 tabs 3RF constipation K59.00 - Constipation, unspecified methylcellulose (laxative) (Citrucel) take it with full glass of water 500 mg PO DAILY 90 tabs 2RF K59.00 - Constipation, unspecified Coding Level of Care Code Est Pt Level 4 (84458) Diagnoses Lower abdominal pain R10.30 Postprandial diarrhea K52.9 Time Spent (min) 35 Comment 20 minutes spent with patient and additional 15 minutes spent reviewing her records
[2023-07-01 09:08] VITALS: BP 135/61; PULSE 79; BMI 23.0
== END 2023-07-01 09:55 | disposition home or self-care (01) ==
PROVIDERS: PCP Registered Nurse; Visit Provider Nurse Practitioner Family
DX: R10.30 Lower abdominal pain, unspecified (principal); K52.9 Noninfective gastroenteritis and colitis, unspecified
CPT/HCPCS: 99214

== ENCOUNTER → 2023-07-01 08:05 | Outpatient (BNVA) | payer OTHER, MEDICAID, SELFPAY | PROVIDERS: PCP Registered Nurse; Visit Provider Nurse Practitioner Family ==

== ENCOUNTER 2023-07-02 10:32 | Outpatient (AMB) | payer OTHER, MEDICAID, SELFPAY ==
--- NOTE | 2023-07-02 11:11 | AM.OFFVISNUR ---
Intake Intake Visit Reasons: bladder instillations x 9 Allergies Penicillins [PENICILLINS] Allergy (Unknown, Verified 07/01/23 09:09) HIVES Office Procedures Bladder/Catheter Procedure Details: pt presents for IC instillation after being in [facility] for 8 weeks visiting family- pt reports some bladder discomfort for past few weeks- offered daily bladder instillations for Thursday, Thursday, Thursday and Thursday to help settle bladder discomfort, pt agreeable. 12 fr straight cath used to empty bladder and instill: 10 mls lidocaine urojet 10 mls bupivicaine 10 mls lidocaine 2% 10,000 units heparin (2 mls) 40 mg solumedrol (1 ml) 23246-[id number] of Bladder 14912-Qhbbrd Bladder Catheter Procedure code (CPT) selection complete Coding Diagnoses CPT Codes Bladder/Catheter Procedure - CPT: 95252-Kzyqpntfsx of Bladder ([id number]) Bladder/Catheter Procedure - CPT: 65018-Wjmegw Bladder Catheter ([id number]) Assessment & Plan Assessment & Plan Orders: Orders AMB Bladder/Catheter Procedure Today N30.20 - Other chronic cystitis without hematuria
== END 2023-07-02 11:26 | disposition home or self-care (01) ==
LOC: HO.HUSH 10:32
PROVIDERS: PCP Registered Nurse; Visit Provider Urology
DX: N32.81 Overactive bladder (principal); N39.0 Urinary tract infection, site not specified
CPT/HCPCS: 51700

== ENCOUNTER → 2023-07-02 10:32 | Outpatient (BNVA) | payer OTHER, MEDICAID, SELFPAY | PROVIDERS: PCP Registered Nurse; Visit Provider Urology | DX: N30.20 Other chronic cystitis without hematuria (principal) | CPT/HCPCS: 51700; J1643; J2920 ==

== ENCOUNTER → 2023-07-03 08:21 | Outpatient (BNVA) | payer OTHER, MEDICAID, SELFPAY | PROVIDERS: PCP Registered Nurse; Visit Provider Urology | DX: N30.20 Other chronic cystitis without hematuria (principal) | CPT/HCPCS: 51700; J1643; J2920 ==

== ENCOUNTER 2023-07-06 09:21 | Outpatient (AMB) | payer OTHER, MEDICAID, SELFPAY ==
--- NOTE | 2023-07-06 10:13 | A.OFFVIS_ITS ---
Intake Vital Signs 07/06/23 10:14 Height 5 ft 6 in Weight 144 lb 2.917 oz BMI 23.3 BP 118/70 Blood Pressure Location Lt brachial Position Sitting Pulse 86 Pulse Source Pulse Oximeter Intake Visit Reasons: 4 mth f/up 7 day holter/ lipids Intake Note: 4 month follow up after recent holter and lipid profile. Hebrew Professor Required: Yes Hebrew Professor Language: Reprographics Technician Name: Delilah [id number] Ipad Accompanied by: Self / Same As Patient Allergies Penicillins [PENICILLINS] Allergy (Unknown, Verified 07/06/23 10:18) HIVES Medication List - Last Reconciled 07/06/23 by Shaun Kumari MD acetaminophen (Tylenol) 650 mg (2 x 325 mg) PO Q6H PRN albuterol sulfate 90 mcg/actuation (ProAir HFA) 2 puffs inhalation Q4-6H PRN blood sugar diagnostic (FreeStyle Lite Strips) Test blood glucose twice per day blood-glucose meter (FreeStyle Lite Meter kit) As directed flash glucose scanning reader (EnvivioStyle Emile 2 [place]) As directed hydrochlorothiazide 12.5 mg PO DAILY hydrocortisone 2.5% (Proctosol HC) 1 appl CA BID-QID PRN ibuprofen 600 mg PO Q8H PRN levothyroxine 125 mcg PO DAILY losartan 50 mg PO BID metformin ER 1,000 mg (2 x 500 mg) PO BID methylcellulose (laxative) (Citrucel) 500 mg PO DAILY metoprolol succinate ER 50 mg PO DAILY nitrofurantoin monohyd/m-cryst 100 mg (Macrobid) 100 mg PO Q12H 20 days pantoprazole 40 mg PO DAILY phenazopyridine (Pyridium) 200 mg PO TID rosuvastatin 10 mg PO QAM sennosides (Natural Senna Laxative) 8.6 mg PO BEDTIME HPI HPI Comments History of Present Illness Details 62-year-old female who is here for follow-up. She has background history of hypertension, hyperlipidemia and atypical chest pains. She is returning and complaining of palpitations. She is getting 1-2 episodes per week which she develops palpitations mostly at nighttime and feels that the heart is pounding. She has been taking her blood pressure medications including metoprolol succinate 50 mg daily. Blood pressure control is good. She was previously on atorvastatin 40 mg as well as fish I will but apparently is not on any medications currently. She has not had any lipid panel recently. Given her history of diabetes she should be on statins. 07/06/23: She returns for follow-up. She had blood workup done in February 2023 and triglycerides 179, total cholesterol 195, LDL 123 in HDL 37. She has papillary thyroid cancer in the past and TSH has been suppressed at 0.02. She is taking levothyroxine 125 mcg daily and follows with endocrinology. She is denying frequent palpitations on follow-up. Holter monitor did not show any significant arrhythmia. Blood pressure control is good. She is taking 10 mg of rosuvastatin at this stage. She is a diabetic. [facility] Medical History Blood in urine Constipation by delayed colonic transit Dyslipidemia Failure of spinal cord stimulator Gastritis Hematuria Hypertension Mass of spine Post-surgical hypothyroidism Primary thyroid cancer Pulmonary nodules Thymoma Thyroid cancer Toe pain Tubular adenoma of colon Type 2 diabetes mellitus with polyneuropathy Vitamin D deficiency Surgical History History of back surgery History of esophagogastroduodenoscopy (EGD) History of thymectomy Hx of section Hx of colonoscopy Hx of hernia repair Hx of hysterectomy Hx of thyroidectomy Family History Father Stroke Heart attack Mother Diabetes mellitus Family/Other Family history of cancer Sister Stomach cancer Family/Other Thyroid cancer Social History Household Members: Spouse, Children and Other Alcohol intake: unknown Patient Tobacco Use Status: Former Tobacco user Tobacco use type: Cigarette Second Hand Smoke Exposure: No Sexual orientation: Straight/Heterosexual Gender identity: Female Review of Systems Const Denies weakness ENT Denies dizziness Card Denies chest pain, Denies chest pain with activity, Denies syncope, Denies rapid heart rate, Denies pedal edema, Denies edema, Denies leg edema, Denies lightheadedness, Denies palpitations, Denies dyspnea, Denies dyspnea on exertion and Denies orthopnea Resp Denies cough, Denies dyspnea and Denies dyspnea on exertion GI Denies hematochezia and Denies change in stool character Musc Denies abnormal gait, Denies muscle cramps, Denies muscle weakness, Denies numbness, Denies radiating pain into limb and Denies tingling Neuro Denies abnormal gait, Denies dizziness, Denies syncope, Denies numbness, Denies tingling and Denies weakness Endo Denies palpitations Physical Exam Vital Signs: Last Vital Signs Pulse 86 07/06/23 10:14 BP 118/70 07/06/23 10:14 BMI result Body Mass Index 23.3 GENERAL APPEARANCE: in no acute distress, pleasant. NECK: no carotid bruit, no jugular venous distention. SKIN: no suspicious lesions, warm and dry. HEART: no murmurs, regular rate and rhythm. LUNGS: clear to auscultation bilaterally. ABDOMEN: soft, nontender. EXTREMITIES: no edema. PERIPHERAL PULSES: equal. NEUROLOGIC: No gross deficits, AAO X 3 Assessment & Plan Assessment & Plan (1) Hypertension: Code(s): I10 - Essential (primary) hypertension (2) Dyslipidemia: Code(s): E78.5 - Hyperlipidemia, unspecified (3) Palpitations: Code(s): R00.2 - Palpitations Plan Pleasant 62-year-old female who is here for follow-up. Blood pressure control is good. LDL cholesterol is elevated. I think being a diabetic she should have better cholesterol control and her LDL target is less than 70. Increasing the Crestor to 40 mg once a day. She will have repeat fasting lipid panel in few months. Thank you for allowing me to participate in the care of your patient. Please feel free to contact me if you have any questions. Orders: Orders Lipid Panel 2 Months E78.5 - Hyperlipidemia, unspecified Medications: New rosuvastatin 40 mg PO DAILY 60 tabs 3RF Coding Level of Care Code Est Pt Level 4 (17411) Diagnoses Hypertension I10 Dyslipidemia E78.5 Palpitations R00.2
[2023-07-06 10:14] VITALS: BP 118/70; PULSE 86; BMI 23.3
== END 2023-07-06 10:43 | disposition home or self-care (01) ==
PROVIDERS: PCP Registered Nurse; Referring Provider Registered Nurse; Visit Provider Internal Medicine Cardiovascular Disease
DX: I10 Essential (primary) hypertension (principal); E78.5 Hyperlipidemia, unspecified; R00.2 Palpitations
CPT/HCPCS: 99214

== ENCOUNTER → 2023-07-06 09:21 | Outpatient (BNVA) | payer OTHER, MEDICAID, SELFPAY | PROVIDERS: PCP Registered Nurse; Referring Provider Registered Nurse; Visit Provider Internal Medicine Cardiovascular Disease ==

== ENCOUNTER 2023-07-07 09:47 | Outpatient (AMB) | payer OTHER, MEDICAID, SELFPAY ==
--- NOTE | 2023-07-07 09:52 | AM.OFFVISNUR ---
Intake Intake Visit Reasons: Instalation #11 Allergies Penicillins [PENICILLINS] Allergy (Unknown, Verified 07/06/23 10:18) HIVES Office Procedures Bladder/Catheter Procedure Details: pt presents for IC instillation- pt reports much relief after 2 daily instillations last week. pt states has transportation issues and is only able to come for instillations Tuesdays and Fridays- will book for instillations on those days until seen by Dr Urrutia on 08/03/23. 12 fr straight cath used to empty bladder and instill: 10 mls lidocaine urojet 10 mls bupivicaine 10 mls lidocaine 2% 10,000 units heparin (2 mls) 40 mg solumedrol (1 ml) 88692-Blfoazktgi of Bladder 10152-Whbhxj Bladder Catheter Procedure code (CPT) selection complete Coding Diagnoses CPT Codes Bladder/Catheter Procedure - CPT: 75745-Wrimsclwbn of Bladder ([id number]) Bladder/Catheter Procedure - CPT: 33184-Byugzu Bladder Catheter ([id number]) Assessment & Plan Assessment & Plan Orders: Orders AMB Bladder/Catheter Procedure Today N30.20 - Other chronic cystitis without hematuria
== END 2023-07-07 10:13 | disposition home or self-care (01) ==
LOC: HO.HUSH 09:47
PROVIDERS: PCP Registered Nurse; Visit Provider Urology
DX: N30.20 Other chronic cystitis without hematuria (principal)

== ENCOUNTER → 2023-07-07 | Outpatient (BNVA) | payer OTHER, MEDICAID, SELFPAY | PROVIDERS: PCP Registered Nurse; Visit Provider Urology | DX: N30.20 Other chronic cystitis without hematuria (principal) | CPT/HCPCS: 51700; J1643; J2920 ==

== ENCOUNTER → 2023-07-14 09:49 | Outpatient (BNVA) | payer OTHER, MEDICAID, SELFPAY | PROVIDERS: PCP Registered Nurse; Visit Provider Urology | DX: N30.20 Other chronic cystitis without hematuria (principal) | CPT/HCPCS: 51700; J1643; J3301 ==

== ENCOUNTER → 2023-07-17 09:32 | Outpatient (BNVA) | payer OTHER, MEDICAID, SELFPAY | PROVIDERS: PCP Registered Nurse; Visit Provider Urology | DX: N30.20 Other chronic cystitis without hematuria (principal) | CPT/HCPCS: 51700; 51701; J1643; J2920 ==

== ENCOUNTER → 2023-07-22 12:02 | Outpatient (BNVA) | payer OTHER, MEDICAID, SELFPAY | PROVIDERS: PCP Registered Nurse; Visit Provider Urology ==

== ENCOUNTER → 2023-07-23 15:08 | Outpatient (BNVA) | payer OTHER, MEDICAID, SELFPAY | PROVIDERS: PCP Registered Nurse; Visit Provider Urology | DX: N30.20 Other chronic cystitis without hematuria (principal) | CPT/HCPCS: 51700; 51701; J1643; J2920 ==

== ENCOUNTER → 2023-07-24 10:31 | Outpatient (BNVA) | payer OTHER, MEDICAID, SELFPAY | PROVIDERS: PCP Registered Nurse; Visit Provider Urology | DX: N30.20 Other chronic cystitis without hematuria (principal) | CPT/HCPCS: 51700; 51701; J1643; J2920 ==

== ENCOUNTER → 2023-07-28 09:43 | Outpatient (BNVA) | payer OTHER, MEDICAID, SELFPAY | PROVIDERS: PCP Registered Nurse; Visit Provider Urology | DX: N30.20 Other chronic cystitis without hematuria (principal); M79.604 Pain in right leg | CPT/HCPCS: 51700; 51701; J1643; J2920 ==

== ENCOUNTER 2023-07-28 10:15 | Outpatient (AMB) | payer OTHER, MEDICAID, SELFPAY ==
[2023-07-28 10:17] VITALS: BP 114/76; PULSE 89; O2SAT 98; BMI 23.2
--- NOTE | 2023-07-28 10:17 | A.OFFVIS_ITS ---
Intake Vital Signs 07/28/23 10:17 Height 5 ft 6 in Weight 144 lb BMI 23.2 BP 114/76 Blood Pressure Location Rt brachial Position Sitting Pulse 89 Pulse Source Pulse Oximeter Pulse Oximetry (%) 98 Oxygen Delivery Method Room Air Intake Visit Reasons: follow up on (r/s R venaseal) Intake Note: Pt presents to the office today for a follow up on rescheduled right venaseal.Pt states her right leg is very painful and her left leg is starting to hurt as well. Pt states she has swelling in both legs and ankles. Pt states she gets numbness and tingling in both legs and feet but its worse in the right leg. Pt states she uses compression stockings with no relief. Room Designer Required: Yes Room Designer Language: Caustic Room Operator Name: Kartik ([id number]) Allergies Penicillins [PENICILLINS] Allergy (Unknown, Verified 07/28/23 10:21) HIVES HPI follow up on (r/s R venaseal) HPI Details Very complex 62-year-old female presents for follow-up regarding venous insufficiency. She had actually seen us in the past back in January and at that time she did have some evidence of reflux. In the interim she has been working with pain management with a diagnosis of complex regional pain syndrome type 1 in addition she has some osteo arthritis and is being seen by Orthopedics with injections to the knee. She presents today in particular with complaints of focal pain in the right medial ankle calf region. She now presents for vascular follow-up [facility] Medical History Failure of spinal cord stimulator Toe pain Thymoma Pulmonary nodules Thyroid cancer Hematuria Mass of spine Type 2 diabetes mellitus with polyneuropathy Blood in urine Constipation by delayed colonic transit Tubular adenoma of colon Gastritis Hypertension Dyslipidemia Post-surgical hypothyroidism Primary thyroid cancer Vitamin D deficiency Surgical History History of thymectomy History of back surgery Hx of colonoscopy Hx of thyroidectomy Hx of hernia repair Hx of section Hx of hysterectomy History of esophagogastroduodenoscopy (EGD) Family History Father Stroke Heart attack Mother Diabetes mellitus Family/Other Family history of cancer Sister Stomach cancer Family/Other Thyroid cancer Social History Household Members: Spouse, Children and Other Alcohol intake: unknown Patient Tobacco Use Status: Former Tobacco user Tobacco use type: Cigarette Second Hand Smoke Exposure: No Sexual orientation: Straight/Heterosexual Gender identity: Female Review of Systems Const Reports as per HPI ENT Reports no additional complaints Card Denies chest pain, Denies chest pain at rest and Denies chest pain with activity Resp Denies chest congestion and Denies cough GI Reports no additional complaints Musc Details: pain over varicosities, aching of lower extremities, swelling, cramping, heaviness and tiredness, itching Denies abnormal gait Skin/Breast Reports pruritus and Denies wounds Neuro Reports no additional complaints and Denies abnormal gait Psych Denies no additional complaints Physical Exam Vital Signs: Last Vital Signs Pulse 89 07/28/23 10:17 BP 114/76 07/28/23 10:17 Pulse Ox 98 07/28/23 10:17 Oxygen Delivery Method Room Air 07/28/23 10:17 BMI result Body Mass Index 23.2 Const General: cooperative, healthy appearing and comfortable Orientation/consciousness: oriented to person, oriented to place and oriented to time Neck Carotids: no bruits Chest Chest palpation & inspection: normal inspection of the chest and normal palpation of entire chest wall Resp Effort & Inspection: normal respiratory effort and able to speak in complete sentences Cardio Rate: regular rate Heart sounds: S1 normal heart sound present and S2 normal heart sound present Peripheral pulses: Peripheral pulses 2+ throughout GI Inspection: Yes normal to inspection Skin Other: +2 edema, large rope-like varicosities greater than 4 mm CEAP Classification C4 - skin color changes Ep - Etiology Primary As - superficial veins P - reflux General skin exam: dry skin Neuro General: oriented to person, oriented to place and oriented to time Extrem Right lower extremity: full ROM, normal capillary refill and edema Left lower extremity: full ROM, normal capillary refill and edema Psych Mental Status: mental status grossly normal Results Reviewed Results Reviewed: Brief summary of venous insufficiency testing is as follows: right great saphenous vein: Positive right small saphenous vein: Positive right accessory vein: none present left great saphenous vein: Positive left small saphenous vein: negative left accessory vein: none present Please note there is no evidence of any venous aneurysms or significant tortuosity Assessment & Plan Assessment & Plan (1) Leg pain: Code(s): M79.606 - Pain in leg, unspecified Qualifiers: Laterality: right Qualified Code(s): M79.604 - Pain in right leg Plan: In short patient has lower extremity pain. It does not appear to be vascular in nature as she does have palpable pulses from an arterial standpoint. In addition she does have some mild venous insufficiency but her pain is more focal in nature at the current time. She has reported improvement with pain management and Orthopedics. The pain she is describing does not clinically match up with venous disease. This was discussed with the patient. Would like her to continue to follow-up with pain management orthopedics. She will follow up with us on an as-needed basis. Thank you for allowing us to assist in her care. If there are any questions or concerns please do not hesitate to contact us Coding Level of Care Code Est Pt Level 4 (45219) Diagnoses Pain of right lower extremity M79.604 Laterality: right
== END 2023-07-28 10:47 | disposition home or self-care (01) ==
PROVIDERS: PCP Registered Nurse; Visit Provider Surgery Vascular Surgery
DX: M79.604 Pain in right leg (principal)
CPT/HCPCS: 99213

== ENCOUNTER 2023-07-30 09:50 | Outpatient (AMB) | payer OTHER, MEDICAID, SELFPAY ==
--- NOTE | 2023-07-30 10:00 | MHC.OFFVIS ---
Intake Intake Visit Reasons: O/V rt knee s/p injection 04/30/23 Intake Note: Sapna is a 62 year old female who presents today for a follow up of her right knee, last injection was done on 04/30/23. She is interested in having about injection done. She also reports having pain in the left knee. Allergies Penicillins [PENICILLINS] Allergy (Unknown, Verified 07/28/23 10:21) HIVES HPI O/V rt knee s/p injection 04/30/23 HPI Details Persisted right knee pain. Prior injection helpful. Pain with walking and at night. Mostly retropatellar. [facility] Medical History Failure of spinal cord stimulator Toe pain Thymoma Pulmonary nodules Thyroid cancer Hematuria Mass of spine Type 2 diabetes mellitus with polyneuropathy Blood in urine Constipation by delayed colonic transit Tubular adenoma of colon Gastritis Hypertension Dyslipidemia Post-surgical hypothyroidism Primary thyroid cancer Vitamin D deficiency Surgical History History of thymectomy History of back surgery Hx of colonoscopy Hx of thyroidectomy Hx of hernia repair Hx of section Hx of hysterectomy History of esophagogastroduodenoscopy (EGD) Family History Father Stroke Heart attack Mother Diabetes mellitus Family/Other Family history of cancer Sister Stomach cancer Family/Other Thyroid cancer Social History Household Members: Spouse, Children and Other Alcohol intake: unknown Patient Tobacco Use Status: Former Tobacco user Tobacco use type: Cigarette Second Hand Smoke Exposure: No Sexual orientation: Straight/Heterosexual Gender identity: Female Physical Exam Extrem Other: Right knee with lateral retropatellar TTP Office Procedures Joint Injection/Drain Joint Injection/Drain Details: Injected 1 mL of Decadron and 3 mL 1% lidocaine and 3 mL of 0.25% Marcaine. Site was prepped using aseptic technique. Patient tolerated the procedure well. Primary Site: right knee Approach Used: anterolateral Coding 04864 - Large joint Procedure code (CPT) selection complete Results Reviewed Results Reviewed: 07/30/23 09:58 BUPivacaine MPF 0.25 % [Sensorcaine-MPF 0.25% 10 ML] 10 ml .ROUTE .STK-MED ONE Lidocaine HCl 2 % MPF [Xylocaine 2 % MPF] 5 ml .ROUTE .STK-MED ONE dexAMETHasone sod phosphate [Decadron] 4 mg .ROUTE .STK-MED ONE Assessment & Plan Assessment & Plan (1) Patellofemoral arthritis of right knee: Code(s): M17.11 - Unilateral primary osteoarthritis, right knee Plan: Injected right knee .Cointinue activity as tolerated. May repeat injection in 3-4 mo. Coding Level of Care Code Est Pt Level 3 (56897) Diagnoses Patellofemoral arthritis of right knee M17.11 CPT Codes Coding - 40424 Large joint: 02690 - Large joint ([id number])
== END 2023-07-30 10:17 | disposition home or self-care (01) ==
PROVIDERS: PCP Registered Nurse; Visit Provider Orthopaedic Surgery
DX: M17.11 Unilateral primary osteoarthritis, right knee (principal)
CPT/HCPCS: 20610; 99213

== ENCOUNTER → 2023-07-30 09:50 | Outpatient (BNVA) | payer OTHER, MEDICAID, SELFPAY | PROVIDERS: PCP Registered Nurse; Visit Provider Orthopaedic Surgery | DX: M17.11 Unilateral primary osteoarthritis, right knee (principal) | CPT/HCPCS: 20610; J1100 ==

== ENCOUNTER 2023-08-03 12:46 | Outpatient (AMB) | payer OTHER, MEDICAID, SELFPAY ==
--- NOTE | 2023-08-03 12:49 | A.OFFVIS_ITS ---
Intake Intake Visit Reasons: 4m follow up/Final bladder instillations x 10 Intake Note: Patient presents today for a follow-up on 4m follow up/Final bladder instillations x 10: Meds- Pyridium & Macrobid Allergies to Antibiotic- Penicillin Blood Thinner- None PVR- 0 Assembler Molded Frames Required: Yes Assembler Molded Frames Language: Lao Allergies Penicillins [PENICILLINS] Allergy (Unknown, Verified 07/28/23 10:21) HIVES HPI HPI Comments History of Present Illness Details Sapna is a 62-year-old female who presents today to the office for a follow-up. 08/03/2023? She is followed today for FU post bladder instillations. The patient is a Lao speaking female. Certified hydraulic auto jack mechanic was present during the visit. She was last seen by me on 04/06/2023 for bladder pain. The patient was advised for Bladder installation once a week for 8 weeks with nurse and was advised to take Pyridium prn during that time. Patient was treated for bladder pain and notes that the pain has improved. She reports occasional vaginal discomfort while voiding and during intercourse. I reviewed the urine culture results from 04/01/2023 which came 10,000 to 50,000 cfu/ml mixed bacterial chun characteristic of urogenital contamination. I have discussed use of pyridium prior to intercourse and low dose macrobid post intercourse, tylenol and/or OTC NSAID prn Also will continue maintenance bladder instillations (q3 wks x 3 then q 6 wks) 08/03/2023: Evaluation today?UA? leukocy baudilio: negative; blood: negative; bladder scan PVR: 0 mL. Review of charts: Last visit: 04/06/23--? The patient is a Lao speaking female. Certified hydraulic auto jack mechanic was present during the visit.? The patient states having vomiting, body ache and headache from Macrobid for which she called the office and was instructed to discontinue medication.? States having pain on the right side of bladder close to the vagina area.? Mentions having pain while voiding.? Co: Morbidity--hypertension, diabetic.? Evaluation today--blood:10 Scott/uL, leukocytes:70 Gigi/uL.? ?? 08/03/2023: Plan: Pyridium prior to intercourse and low dose macrobid post intercourse, tylenol and/or OTC NSAID prn Also will continue maintenance bladder instillations Follow-up with Nurse in 3 weeks. Follow-up in 6 months. [facility] Medical History Failure of spinal cord stimulator Toe pain Thymoma Pulmonary nodules Thyroid cancer Hematuria Mass of spine Type 2 diabetes mellitus with polyneuropathy Blood in urine Constipation by delayed colonic transit Tubular adenoma of colon Gastritis Hypertension Dyslipidemia Post-surgical hypothyroidism Primary thyroid cancer Vitamin D deficiency Surgical History History of thymectomy History of back surgery Hx of colonoscopy Hx of thyroidectomy Hx of hernia repair Hx of section Hx of hysterectomy History of esophagogastroduodenoscopy (EGD) Family History Father Stroke Heart attack Mother Diabetes mellitus Family/Other Family history of cancer Sister Stomach cancer Family/Other Thyroid cancer Social History Household Members: Spouse, Children and Other Alcohol intake: unknown Patient Tobacco Use Status: Former Tobacco user Tobacco use type: Cigarette Second Hand Smoke Exposure: No Sexual orientation: Straight/Heterosexual Gender identity: Female Review of Systems Const All systems reviewed & are unremarkable except as noted in HPI and below Reports no additional complaints Eyes Reports no additional complaints ENT Reports no additional complaints Card Denies dyspnea Resp Denies cough and Denies dyspnea GI Reports no additional complaints Reports no additional complaints Musc Reports no additional complaints Skin/Breast Denies rash and Denies unusual bruising Neuro Reports no additional complaints Psych Reports no additional complaints Endo Reports no additional complaints Je/Lymph Reports no additional complaints Aller/Immun Reports no additional complaints Physical Exam Const General: cooperative, healthy appearing and no acute distress Orientation/consciousness: patient oriented x3 HEENT Head: Yes normal to inspection, Yes normocephalic and Yes atraumatic Eyes Conjunctivae: conjunctivae normal Neck Neck: Yes normal visual inspection and Yes trachea midline Chest Chest palpation & inspection: normal inspection of the chest Resp Effort & Inspection: normal respiratory effort Cardio Rate: regular rate GI Inspection: Yes normal to inspection Skin General skin exam: no rashes or lesions noted Neuro General: patient oriented x3 Extrem General: No edema Psych Appearance: grossly normal Office Procedures Post Void Residual Post Residual Void Post Void Residual (PVR): 0 06605-Lfes Void Residual by ultrasound Results AMB Urinalysis, Automated UA Leukoctes 0 Gigi/uL Last Edit by Sumanth Newman [facility] on 08/03/23 13:02 UA Nitrite Negative Last Edit by Sumanth Newman [facility] on 08/03/23 13:02 UA Urobilinogen 0.2 mg/dL Last Edit by Sumanth Newman [facility] on 08/03/23 13:0 2 UA Protein 0 mg/dL Last Edit by Sumanth Newman [facility] on 08/03/23 13:02 UA pH 6.0 Last Edit by Sumanth Newman [facility] on 08/03/23 13:02 UA Blood 0 Scott/uL Last Edit by Sumanth Newman [facility] on 08/03/23 13:02 UA Specific Anderson 1.010 Last Edit by Sumanth Newman [facility] on 08/03/23 13: 02 UA Ketone Negative Last Edit by Sumanth Newman [facility] on 08/03/23 13:02 UA Bilirubin 0 mg/dL Last Edit by Sumanth Newman [facility] on 08/03/23 13:02 UA Glucose 0 mg/dL Last Edit by Sumanth Newman [facility] on 08/03/23 13:02 Results Reviewed Results Reviewed: Laboratory Last Values Urine pH (Auto) 6.0 08/03/23 13:00 Specific Anderson (Auto) 1.010 08/03/23 13:00 Urine Protein (Auto) 0 mg/dL 08/03/23 13:00 Glucose (UA)(Auto) 0 mg/dL 08/03/23 13:00 Urine Ketones (Auto) Negative 08/03/23 13:00 Urine Blood (Auto) 0 Scott/uL 08/03/23 13:00 Urine Nitrite (Auto) Negative 08/03/23 13:00 Urine Bilirubin (Auto) 0 mg/dL 08/03/23 13:00 Urine Urobilinogen (Auto) 0.2 mg/dL 08/03/23 13:00 Leukocyte Esterase (Auto) 0 Gigi/uL 08/03/23 13:00 Ordered:? Urine Culture? Procedure?Result?Verified?Site ? Urine Culture? Final?04/02/23-841 ? Report Result?10,000 to 50,000 cfu/ml ? Mixed bacterial chun characteristic of ? urogenital contamination. Assessment & Plan Assessment & Plan (1) Chronic cystitis: Code(s): N30.20 - Other chronic cystitis without hematuria (2) Dysuria: Code(s): R30.0 - Dysuria (3) Bladder pain: Code(s): R39.89 - Other symptoms and signs involving the genitourinary system (4) Pelvic pain: Code(s): R10.2 - Pelvic and perineal pain (5) Dyspareunia in female: Code(s): N94.10 - Unspecified dyspareunia Plan Pyridium prior to intercourse and low dose macrobid post intercourse, tylenol and/or OTC NSAID prn Also will continue maintenance bladder instillations Follow-up with Nurse in 3 weeks. Follow-up in 6 months. Orders: Orders AMB Post Void Residual by ultrasound Today N39.8 - Other specified disorders of urinary system AMB Urinalysis Automated Today Z13.9 - Encounter for screening, unspecified Patient Instructions: The patient had an opportunity to ask questions regarding treatment plan. All questions were answered. Imaging, Laboratory studies and physical exam results were discussed and reviewed in detail. No major barriers to understanding were identified. The patient expressed understanding and agreement with the above treatment plan.? ? ? The patient is aware they should contact our office by phone for worsening of their current condition or the appearance of new symptoms. Compliance is encouraged with any medications and followup testing that is ordered.? ? ? It is a privilege to be allowed the opportunity to participate in the urologic care of your patient. If you have any questions or concerns regarding treatment for the above conditions please do not hesitate to contact me. The office telephone contact is [phone].? ? ? This note is constructed in part using voice recognition software. While every effort has been made to ensure accuracy plant tech errors may have been included.? ? ? Yours sincerely,? ? ? Analy Campos MD? Coding Level of Care Code Est Pt Level 4 (28074) Diagnoses Chronic cystitis N30.20 Dysuria R30.0 Bladder pain R39.89 Pelvic pain R10.2 Dyspareunia in female N94.10 CPT Codes Post Residual Void - PVR CPT Code: 17243-Zdfg Void Residual by ultrasound ([id number])
== END 2023-08-03 14:01 | disposition home or self-care (01) ==
PROVIDERS: PCP Student in an Organized Health Care Education/Training Program; Visit Provider Urology
DX: N30.20 Other chronic cystitis without hematuria (principal); R30.0 Dysuria; R39.89 Other symptoms and signs involving the genitourinary system; R10.2 Pelvic and perineal pain; N94.10 Unspecified dyspareunia; Z13.9 Encounter for screening, unspecified
CPT/HCPCS: 99214

== ENCOUNTER → 2023-08-03 12:46 | Outpatient (BNVA) | payer OTHER, MEDICAID, SELFPAY | PROVIDERS: Visit Provider Urology | DX: N30.20 Other chronic cystitis without hematuria (principal); R30.0 Dysuria; R39.89 Other symptoms and signs involving the genitourinary system; R10.2 Pelvic and perineal pain; N94.10 Unspecified dyspareunia | CPT/HCPCS: 51798; 81003 ==

== ENCOUNTER 2023-08-05 09:10 | Outpatient (AMB) | payer OTHER, MEDICAID, SELFPAY ==
--- NOTE | 2023-08-05 09:13 | MHC.OFFVIS ---
Intake Vital Signs 08/05/23 09:18 Height 5 ft 6 in Weight 145 lb 8.081 oz BMI 23.5 BP 131/75 Blood Pressure Location Lt brachial Position Sitting Pulse 98 Pulse Oximetry (%) 98 Intake Visit Reasons: 5 week fu Intake Note: Patient in the office to follow up on her right side abdomen pain and everything that she eats makes her nauseas. [employer] Required: Yes [employer] Language: Mohawk Allergies Penicillins [PENICILLINS] Allergy (Unknown, Verified 07/28/23 10:21) HIVES HPI 5 week fu HPI Details LAST VISIT: Lower abdominal pain Patient continues with lower abdominal pain. Most likely related to the food the patient is not eliminating her bowels completely, gas trapping pain. Patient has a history of frequent UTIs. Postprandial diarrhea Frequent postprandial loose stools. Discussed with patient avoiding dietary triggers. Patient also reports lower abdominal pain in right lower quadrant sometimes in the left lower quadrant. Will send script for Citrucel and help her bulk her stools. Patient does not eliminate her bowels completely though. Will send a script for Senokot. Patient will return in 5 weeks and we will discuss going for colonoscopy. We will go over prep and clear liquid diet in detail. Patient is agreeable to this plan and verbalizes understanding of instructions. She was given the opportunity to ask questions all questions answered. TODAY'S VISIT Patient is here today for follow-up. Patient reports that she continues to have right lower quadrant pain. Patient's pain is now in the lower quadrant. Patient states that she is moving her bowels well without any issues. Patient states that she has a back stimulator in the right lower back. Patient reports that she has pain when she is bending over in her right lower quadrant. Patient also has been treated with antibiotics recently for UTI. Denies any flank pain. Denies any nausea or vomiting. Patient had multiple CT scan that showed no acute processes. [facility] Medical History Failure of spinal cord stimulator Toe pain Thymoma Pulmonary nodules Thyroid cancer Hematuria Mass of spine Type 2 diabetes mellitus with polyneuropathy Blood in urine Constipation by delayed colonic transit Tubular adenoma of colon Gastritis Hypertension Dyslipidemia Post-surgical hypothyroidism Primary thyroid cancer Vitamin D deficiency Surgical History History of thymectomy History of back surgery Hx of colonoscopy Hx of thyroidectomy Hx of hernia repair Hx of section Hx of hysterectomy History of esophagogastroduodenoscopy (EGD) Family History Father Stroke Heart attack Mother Diabetes mellitus Family/Other Family history of cancer Sister Stomach cancer Family/Other Thyroid cancer Social History Household Members: Spouse, Children and Other Alcohol intake: unknown Patient Tobacco Use Status: Former Tobacco user Tobacco use type: Cigarette Second Hand Smoke Exposure: No Sexual orientation: Straight/Heterosexual Gender identity: Female Review of Systems Const Denies weight gain and Denies weight loss ENT Reports no additional complaints, Denies dysphagia and Denies odynophagia Card Reports no additional complaints Resp Reports no additional complaints GI Reports abdominal pain (RLQ), Denies belching, Denies melena, Reports bloating, Denies change in bowel habits, Denies dysphagia, Denies excessive flatus, Denies dyspepsia, Denies heartburn, Denies diarrhea, Reports loose stools, Reports nausea, Denies odynophagia and Denies vomiting Reports dysuria (Following up with urologist) Musc Reports no additional complaints Neuro Reports no additional complaints Psych Reports no additional complaints Endo Reports no additional complaints Physical Exam Vital Signs: Last Vital Signs Pulse 98 08/05/23 09:18 BP 131/75 08/05/23 09:18 Pulse Ox 98 08/05/23 09:18 BMI result Body Mass Index 23.5 Const General: healthy appearing, no acute distress and well developed Nutritional Appearance: well nourished Orientation/consciousness: patient oriented x3 HEENT Head: Yes normal to inspection, Yes normocephalic and Yes atraumatic Face and sinus: Yes normal facial exam Mouth: Normal oral and palatal mucosa present Throat: Yes posterior oropharynx normal, Yes tonsils normal and Yes uvula midline Eyes General: appearance normal, both eyes and all related structures Neck Neck: Yes normal visual inspection, Yes full ROM and Yes trachea midline Thyroid: Thyroid normal Resp Effort & Inspection: normal respiratory effort, able to speak in complete sentences, no tracheal deviation and symmetric chest movement Auscultation: clear to auscultation bilaterally Cardio Rate: regular rate Heart sounds: S1 normal heart sound present and S2 normal heart sound present GI Inspection: Yes normal to inspection and No distended Palpation (GI): Soft to palpation, not firm, Tenderness to palpation present (GI) (RLQ) and No hepatosplenomegaly present Auscultation: normal bowel sounds General: Yes no CVA tenderness Back/Spine/Pelvis Back: no CVA tenderness Skin General skin exam: elasticity normal, turgor normal and dry skin Neuro General: patient oriented x3 Psych Appearance: grossly normal Mental Status: mental status grossly normal Speech and movement: Normal speech and movement present Assessment & Plan Assessment & Plan (1) Pelvic pain: Code(s): R10.2 - Pelvic and perineal pain Plan: Patient was encouraged to increase fluid intake. Will order pelvic ultrasound. Patient was encouraged to call her sterilization specialist (2) RLQ abdominal pain: Code(s): R10.31 - Right lower quadrant pain Plan: Right lower quadrant abdominal pain most likely muscular. Patient reports that she is moving her bowels well. As mentioned above will send her for pelvic ultrasound. Mild tenderness to right lower quadrant. I will see patient in 3 months, sooner on as needed basis. Patient is agreeable to this plan and verbalizes understanding of instructions. She was given the opportunity to ask questions and all questions answered. Thank you for allowing me to participate in her care Orders: Orders US pelvic complete Today R10.2 - Pelvic and perineal pain, R10.31 - Right lower quadrant pain Coding Level of Care Code Est Pt Level 4 (05581) Diagnoses Pelvic pain R10.2 RLQ abdominal pain R10.31 Time Spent (min) 35 Comment 20 minutes spent with patient and additional 15 minutes spent reviewing her records home
[2023-08-05 09:18] VITALS: BP 131/75; PULSE 98; O2SAT 98; BMI 23.5
== END 2023-08-05 09:56 | disposition home or self-care (01) ==
PROVIDERS: PCP Registered Nurse; Visit Provider Nurse Practitioner Family
DX: R10.2 Pelvic and perineal pain (principal); R10.31 Right lower quadrant pain
CPT/HCPCS: 99214

== ENCOUNTER → 2023-08-05 09:10 | Outpatient (BNVA) | payer OTHER, MEDICAID, SELFPAY | PROVIDERS: PCP Registered Nurse; Visit Provider Nurse Practitioner Family ==

== ENCOUNTER 2023-08-12 16:07 | Outpatient (REF) | payer OTHER, MEDICAID, SELFPAY | END 2023-08-12 16:08 | disposition home or self-care (01) | LOC: HO.HHCLNP 16:07 | PROVIDERS: Visit Provider Student in an Organized Health Care Education/Training Program | DX: R30.0 Dysuria (principal) | CPT/HCPCS: 87086; 87088; 87186 ==

== ENCOUNTER → 2023-08-21 09:22 | Outpatient (BNVA) | payer OTHER, MEDICAID, SELFPAY | PROVIDERS: PCP Registered Nurse; Visit Provider Urology | DX: N30.20 Other chronic cystitis without hematuria (principal) | CPT/HCPCS: 51700; 51701 ==

== ENCOUNTER 2023-08-25 08:52 | Outpatient (AMB) | payer OTHER, MEDICAID, SELFPAY ==
--- NOTE | 2023-08-25 09:01 | AM.OFFVISNUR ---
Intake Intake Visit Reasons: IC Instillation Allergies Penicillins [PENICILLINS] Allergy (Unknown, Verified 07/28/23 10:21) HIVES Office Procedures Bladder/Catheter Procedure Details: pt presents to office for IC instillation. Unable to have instillation last week due to acute UTI and abx. Pt state today finished abx on Thursday, is asymptomatic and would like to proceed with instillation if not infected. UA negative. 14 fr straight cath used to empty bladder and instill: 10 mls bupivicaine 10,000 units (2 mls) heparin 10 mls lidocaine 2% 10 mls lidocaine urojet 1 ml (40 mg)solumedrol 70455-Hapabjqtsp of Bladder 08731-Wrfphb Bladder Catheter Procedure code (CPT) selection complete Results AMB Urinalysis, Automated UA Leukoctes 0 Gigi/uL Last Edit by Omid Casas LPN on 08/25/23 09:13 UA Nitrite Negative Last Edit by Omid Casas LPN on 08/25/23 09:13 UA Urobilinogen 0.2 mg/dL Last Edit by Omid Casas LPN on 08/25/23 09:13 UA Protein 0 mg/dL Last Edit by Omid Casas LPN on 08/25/23 09:13 UA pH 6.0 Last Edit by Omid Casas LPN on 08/25/23 09:13 UA Blood 0 Scott/uL Last Edit by Omid Casas LPN on 08/25/23 09:13 UA Specific Donovan 1.015 Last Edit by Omid Casas LPN on 08/25/23 09:13 UA Ketone Negative Last Edit by Omid Casas LPN on 08/25/23 09:13 UA Bilirubin 0 mg/dL Last Edit by Omid Casas LPN on 08/25/23 09:13 UA Glucose 1000 mg/dL Last Edit by Omid Casas LPN on 08/25/23 09:13 Coding CPT Codes Bladder/Catheter Procedure - CPT: 57607-Elgmtjjffg of Bladder ([id number]) Bladder/Catheter Procedure - CPT: 43656-Wzkxbc Bladder Catheter ([id number]) Assessment & Plan Assessment & Plan Orders: Orders AMB Bladder/Catheter Procedure Today N30.20 - Other chronic cystitis without hematuria AMB Urinalysis Automated Today N30.20 - Other chronic cystitis without hematuria
== END 2023-08-25 10:07 | disposition home or self-care (01) ==
LOC: HO.HUSH 08:52
PROVIDERS: PCP Registered Nurse; Visit Provider Urology
DX: N30.20 Other chronic cystitis without hematuria (principal)

== ENCOUNTER → 2023-08-25 08:52 | Outpatient (BNVA) | payer OTHER, MEDICAID, SELFPAY | PROVIDERS: PCP Registered Nurse; Visit Provider Urology | DX: N30.20 Other chronic cystitis without hematuria (principal) | CPT/HCPCS: 51700; 51701; 81003 ==

== ENCOUNTER 2023-08-27 12:54 | Outpatient (REF) | payer OTHER, MEDICAID, SELFPAY ==
--- NOTE | ~2023-08-27 | US_ITS ---
EXAMINATION: US SOFT TISSUES RIGHT CALF CLINICAL INFORMATION: Palpable lump medial right calf. COMPARISON: None available. TECHNIQUE: Targeted ultrasound images were obtained by the gravity manager of the area of concern as indicated by the patient along the medial aspect of the right calf. Radiologist was not in attendance. Images were later provided for interpretation. FINDINGS: No discrete mass or fluid collection identified in the area of concern indicated by the patient along the medial aspect of the right calf. Incidental note of compressible varicosities. US/US extremity nonvascular IMPRESSION: No discrete mass or fluid collection identified in the area of concern indicated by the patient along the medial aspect of the right calf. Incidental note of compressible varicosities. Decisions regarding further imaging, treatment or biopsy should be based on the clinical exam, as not all abnormalities are detectable on ultrasound studies.
== END 2023-08-27 12:55 | disposition home or self-care (01) ==
LOC: HO.US 12:54
PROVIDERS: PCP Registered Nurse; Visit Provider Registered Nurse
DX: R22.41 Localized swelling, mass and lump, right lower limb (principal)
CPT/HCPCS: 76882

== ENCOUNTER 2023-09-03 09:45 | Outpatient (REF) | payer OTHER, MEDICAID, SELFPAY ==
--- NOTE | ~2023-09-03 | XR_ITS ---
EXAMINATION: XR TEMPOROMANDIBULAR JOINT, BILATERAL CLINICAL INFORMATION: Left ear pain. COMPARISON: None available. TECHNIQUE: AP as well as lateral views of the bilateral temporomandibular joints. Lateral views obtained with the mouth in open and closed position. FINDINGS: No acute fracture or dislocation. Left temporomandibular joint space narrowing with mild sclerosis of the mandibular fossa as well as mild flattening. Findings are consistent with mild degenerative arthritis. Normal anterior translation of the mandibular condyle. No concerning lytic or blastic osseous lesion. No abnormal soft tissue calcification. XR/XR TMJ BI IMPRESSION: 1. 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 2. Normal anterior translation of the mandibular condyle.
== END 2023-09-03 09:46 | disposition home or self-care (01) ==
LOC: HO.XRAY 09:45
PROVIDERS: PCP Family Medicine; Visit Provider Family Medicine
DX: H92.02 Otalgia, left ear (principal)
CPT/HCPCS: 70330

== ENCOUNTER 2023-09-08 08:28 | Outpatient (REF) | payer OTHER, MEDICAID, SELFPAY ==
[2023-09-08 09:54] LABS: Cholesterol 148 mg/dL (<200); HDL Cholesterol 43 mg/dL (>40); LDL Cholesterol Calculated 81 mg/dL (<100); Triglycerides 124 mg/dL (<150)
[2023-09-08 10:00] LABS: Free T4 (Free Thyroxine) 1.41 ng/dL (0.71-1.85)
[2023-09-08 10:52] LABS: Thyroid Stimulating Hormone < 0.01 uIU/mL (0.32-4.0)
[2023-09-15 08:54] LABS: Thyroglobulin Antibody <1 IU/mL (<=1); Thyroglobulin Level 0.1 ng/mL
== END 2023-09-08 08:29 | disposition home or self-care (01) ==
LOC: HO.LAB 08:28
PROVIDERS: Absent Provider Internal Medicine; PCP Student in an Organized Health Care Education/Training Program; Visit Provider Internal Medicine Cardiovascular Disease
DX: E78.5 Hyperlipidemia, unspecified (principal); E89.0 Postprocedural hypothyroidism; Z85.850 Personal history of malignant neoplasm of thyroid
CPT/HCPCS: 36415; 80061; 84432; 84439; 84443; 86800

== ENCOUNTER → 2023-09-11 09:34 | Outpatient (BNVA) | payer OTHER, MEDICAID, SELFPAY | PROVIDERS: PCP Student in an Organized Health Care Education/Training Program; Visit Provider Urology | DX: N30.20 Other chronic cystitis without hematuria (principal) | CPT/HCPCS: 51700; 51701 ==

== ENCOUNTER 2023-09-14 09:04 | Outpatient (REF) | payer OTHER, MEDICAID, SELFPAY ==
--- NOTE | ~2023-09-14 | CT_ITS ---
EXAMINATION: CT CHEST WITHOUT CONTRAST CLINICAL INFORMATION: Abnormal findings of lung field COMPARISON: CT abdomen from 02/28/2023, CT chest from 11/25/2021 TECHNIQUE: Multidetector volumetric CT imaging of the chest was done. Axial MIP volume rendering provided. Sagittal and coronal reformatted images were obtained. This CT examination was performed using dose optimization techniques as appropriate, variously including the following: *Automated exposure control *Adjustment of mA and/or kV according to patient size (this includes techniques or standardized protocols for targeted exams where dose is matched to indication/reason for exam; i.e. extremities or head) *Use of iterative reconstruction technique DLP: 126 mGy-cm FINDINGS: LUNGS/PLEURA: Stable 2 mm pleural-based nodular focus along the anterior aspect of the right upper lobe (series 5, image 222). 6 mm nodular focus along the medial aspect of the left major fissure along the anterior aspect of the right lower lobe (series 5, image 295), stable. Calcified granuloma right lower lobe (series 5, image 372). 4 mm nodule in the lateral aspect of the left lower lobe (series 5, image 338), stable. No new large or suspicious pulmonary nodules or masses are noted. Central airways are patent. No pneumothorax. No large pleural effusion. Bibasilar atelectasis. MEDIASTINUM: Heart is not enlarged. No pericardial effusion. No coronary artery calcifications are noted. Aorta is nonaneurysmal and demonstrates a sclerotic calcifications. Main pulmonary artery is not enlarged. A few mildly prominent though nonenlarged peritracheal precarinal and periaortic lymph nodes are noted. AXILLA: No lymphadenopathy. UPPER ABDOMEN: Small hiatal hernia. OSSEOUS STRUCTURES: Multilevel degenerative changes of the thoracolumbar spine. Partial visualization of left or spinal stimulator along the upper lumbar spine CT/CT chest wo IV con IMPRESSION: 1. Redemonstration of bilateral pulmonary nodules the largest measuring up to 6 mm along the medial aspect of the left major fissure along the anterior aspect of the right lower lobe, stable. 2. No new large or suspicious pulmonary nodules or masses are noted. 3. Small hiatal hernia.
== END 2023-09-14 09:05 | disposition home or self-care (01) ==
LOC: HO.CT 09:04
PROVIDERS: PCP Student in an Organized Health Care Education/Training Program; Visit Provider Hospitalist
DX: R91.8 Other nonspecific abnormal finding of lung field (principal)
CPT/HCPCS: 71250

== ENCOUNTER 2023-09-16 12:03 | Outpatient (REF) | payer OTHER, MEDICAID, SELFPAY ==
--- NOTE | ~2023-09-16 | US_ITS ---
EXAMINATION: US SOFT TISSUE NECK CLINICAL INFORMATION: Lymph node mapping COMPARISON: None available. TECHNIQUE: Ultrasound of the neck soft tissues is performed with high- frequency murrell-scale imaging and color Doppler. FINDINGS: Right neck level 1B lymph node measuring up to 4 mm in short axis morphologically benign-appearing. Right neck level 2 lymph node measuring 0.5 cm in short axis, morphologically benign-appearing. Right neck level 5 8 lymph node measuring 5 mm in short axis, morphologically benign-appearing. Left neck level 1B lymph node measuring up to 7 mm in short axis, morphologically benign-appearing. Left neck level 2 lymph node measuring 1.9 x 0.5 x 1.3 cm with loss of fatty hilum. US/US soft tiss head and/or neck IMPRESSION: 1. Morphologically benign-appearing lymph nodes in the right neck. 2. Left neck level 2 lymph node measuring 1.9 x 0.5 x 1.3 cm with loss of fatty hilum.
== END 2023-09-16 12:04 | disposition home or self-care (01) ==
LOC: HO.US 12:03
PROVIDERS: PCP Family Medicine; Visit Provider Internal Medicine
DX: Z85.850 Personal history of malignant neoplasm of thyroid (principal)
CPT/HCPCS: 76536

== ENCOUNTER 2023-09-21 10:40 | Outpatient (REF) | payer OTHER, MEDICAID, SELFPAY ==
--- NOTE | ~2023-09-21 | XR_ITS ---
EXAMINATION: XR TIBIA AND FIBULA, RIGHT CLINICAL INFORMATION: Pain COMPARISON: None available. TECHNIQUE: AP and lateral views of the right tibia and fibula were obtained. FINDINGS: No acute fracture or dislocation. Soft tissues are unremarkable. No tibiotalar joint effusion. Mild degenerative changes of the tibiotalar joint with small osteophytes. Mild degenerative changes of the knee with small patellofemoral compartment osteophytes. XR/XR tibia fibula RT 2V IMPRESSION: No acute osseous abnormality. Mild degenerative changes of the knee and ankle.
== END 2023-09-21 10:41 | disposition home or self-care (01) ==
LOC: HO.HHCX 10:40
PROVIDERS: Visit Provider Student in an Organized Health Care Education/Training Program
DX: M79.604 Pain in right leg (principal)
CPT/HCPCS: 73590

== ENCOUNTER 2023-09-23 15:21 | Outpatient (AMB) | payer OTHER, MEDICAID, SELFPAY ==
[2023-09-23 15:22] VITALS: BP 112/74; PULSE 75; BMI 23.6
--- NOTE | 2023-09-23 15:22 | A.OFFVIS_ITS ---
Intake Vital Signs 09/23/23 15:22 Height 5 ft 6 in Weight 146 lb 6.191 oz BMI 23.6 BP 112/74 Blood Pressure Location Lt brachial Position Sitting Pulse 75 Pulse Source Pulse Oximeter Intake Visit Reasons: F/U Thyroid Cancer needs 1 hour Intake Note: New patient to Dr. Khan present today for Thyroid Cancer. Previously followed by Dr. Baez. Teacher Of The Deaf/Hard Of Hearing Required: Yes Teacher Of The Deaf/Hard Of Hearing Language: Director Inbound Sales Name: Janice medical staff Information Interpreted: non-clinical & clinical Accompanied by: Self / Same As Patient Allergies Penicillins [PENICILLINS] Allergy (Unknown, Verified 09/23/23 15:28) HIVES HPI HPI Comments History of Present Illness Details 62 YO F who is seen in F/U for a history of PTC s/p a total thyroidectomy. Her T2DM is managed by her PCP. . Patient was last seen by Dr. Baez on 03/16/2023 She was initially diagnosed with Papillary thyroid cancer in 2009 in [facility].? She underwent a total thyroidectomy 04/25/2010 with central neck dissection.? Official surgical path reported a 2.7 cm papillary thyroid carcinoma in the right lobe with capsular invasion and extrathyroidal extension.? There were an additional 2 foci of micropapillary thyroid carcinoma in the remaining right lobe measuring 0.3 and 0.4 cm, as well as a foci in the isthmus measuring 0.5 cm.? There was an additional 1.1 cm focus of PTC within the L lobe.? This was stage [id number].? Postoperative she was treated with 150 mCi of I131 08/07/2010.? Posttreatment WBS 08/14/2010 revealed no iodine avid uptake.? She then moved to [facility] and continued treatment there.? January TG level was 1.31, but unfortunately no TSH is available.? She was on levothyroxine 200 mcg PO daily at that time. Repeat WBS 01/31/2012 completed via thyroid hormone withdrawal was negative for iodine avid uptake.? Unfortunately no TSH is available at that time.? Labs 05/04/2012 TSH 0.08 with TG <0.2.? May 2014 she had an US head and neck completed which revealed abnormal appearing lymph nodes.? Stimulated TG level at that time was 1.? WBS at that time revealed distant uptake within the neck, chest and abdomen.? CT of the est revealed a mediastinal mass measuring 2.5x2.5x7 cm.? She was also noted to have a 10 mm RLL pulmonary nodule.? She was referred to Dr. Mireles at that time (01/28/15) and underwent FNA biopsy of the abnormal appearing lymph nodes, which were benign.? There was, however, mention of a 1.5 cm hypoechoic mass in the right thyroid fossa along the first tracheal ring which was biopsied, and consistent with papillary thyroid carcinoma.? She additionally underwent FNA biopsy of her mediastinal mass which revealed a thymoma.? Interestingly her WBS revealed no uptake within the lesion within the thyroid bed, so it was thought that her disease was likely no longer iodine avid. The Patient then underwent right peritracheal papillary thyroid carcinoma resection performed by Dr. Mireles 07/04/2015.? Histology revealed a 1.5 cm PTC.? She then underwent a robotic thymectomy the same day by Dr. Garcia.? 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 It was minimally invasive at the right, left posterior and anterior margins.? Lymph nodes were negative for metastasis and there was no pleural invasion.? She was referred for postoperative radiation therapy to decrease the risk of local recurrence. ? She underwent an MRI of the abdomen 05/01/2015 which revealed no hepatic lesions corresponding to the activity on the WBS. She had an US of the head and neck in 2017 which revealed abnormal appearing lymph nodes.? She underwent FNA biopsy 02/25/2018 of a left level 4 2.5 cm cervical lymph node, which was inadequate, and a left level 2 1.9 cm lymph node which revealed no evidence of metastatic disease. She then had a repeat US in 2018 and underwent FNA biopsy 12/30/2018 of a left level 2 2.6 cm and a left level 2 2.3 cm cerical lymph node, both with only evidence of normal appearing lymphocytes.? Unfortunately TG washout is not available at this time. She then had a thyrogen stimulated WBS 02/01/2021.? Labs TSH >100, TG 0.8 with TGAB negative.? This revealed only physiologic uptake.? She underwent a PET CT 01/27/2022 with identification of a 0.7 cm left level IIA lymph node with increased FDG uptake with SUV max of 2.9.? There was an additional 0.5 cm left level IIB lymph node with increased FDG uptake and SUV max of 4.0.? There was residual activity within the thyroidectomy bed.? No abnormal uptake was noted in the chest, abdomen or pelvis.? There was mild FDG uptake in the posterior paraspinal tissue with SUV max of 3.4, this extended to the left lateral aspect of the spinal canal at L5.? There was a mild soft tissue prominence measuring 1.8x0.9 cm in the left paraspinal region She did have an US head and neck 01/20/2022 which revealed an abnormal appearing lymph node in left level 2 measuring 1.9 cm.? She underwent FNA biopsy of this lymph node 04/09/2022 with cytology revealing no evidence of malignancy, only lymphocytes.? TG washout was negative.? There was an additional small suspicious appearing supraclavicular lymph node which was not biopsied by IR for unknown reasons.? She also had a CT of the lumbar spine 04/07/2022 which revealed abnormal soft tissue within the L epidural space at the L5/S1 level.? This was inseperable from the traversing segment of the S1 nerve root.? MRI revealed a herniated disc with granulation tissue. She was also ordered for a CT of the chest to evaluate the 1 cm pulmonary nodule that was identified in 2014. She was referred to Dr. Bonnie Balderrama for second opinion, but instead saw her colleague Dr. Lowery. US of the neck for cervical lymph node mapping was performed and no abnormal cervical lymph nodes were identified. She did undergo CT of the chest which revealed subcentimeter pulmonary nodules. She is following with Dr. Arias from Pulmonology for surveillance of these. She is currently using levothyroxine 112 mcg PO daily and reports feeling well. Most recent labs with TSH 0.01, TG 0.1 and TGAB <1. CT Lumbar Spine: 04/07/2022 FINDINGS: There are 5 nonrib-bearing lumbar-type vertebral bodies. Lumbar alignment is normal. Chronic inferior endplate Schmorl's node at L5 again noted. Mild chronic vertebral body height loss at L5 is stable. The remaining lumbar vertebral body heights are maintained. There is mild disc volume loss and there is vacuum phenomenon at L5-S1. The remaining disc volumes are preserved. There are no acute fractures and there are no acute subluxations. No suspicious intraosseous lesions are identified. There is aortoiliac atherosclerotic calcification. The L1-L2, L2-L3, and L3-L4 disc contours remain within normal limits. No central canal stenosis and no foraminal stenosis at these levels. L4-L5: There is likely a stable shallow left paracentral disc protrusion resulting in posterior deflection of the traversing left L5 nerve root within the left subarticular zone. No significant central canal stenosis and no foraminal stenosis.? L5-S1: Postoperative changes following left hemilaminectomy. There is abnormal soft tissue within the left epidural space inseparable from the traversing left S1 nerve root that could reflect recurrent/residual disc herniation and/or scar tissue that would be better assessed with a lumbar spine MRI with and without IV contrast.? CT/CT lumbar spine wo con IMPRESSION: - At L5-S1, there are postoperative alex ges following left hemilaminectomy. There is abnormal soft tissue within the left epidural space at L5-S1 inseparable from the traversing left S1 nerve root that could reflect recurrent/residual disc herniation and/or scar tissue that would be better assessed with a lumbar spine MRI with and without IV contrast.? ? - At L4-L5, there is likely a stable sha llow left paracentral disc protrusion resulting in posterior deflection of the traversing left L5 nerve root within the left subarticular zone. MRI Lumbar Spine: 05/01/2022 FINDINGS: Coronal Alignment: Normal Sagittal Alignment: Normal Lumbosacral Junction: Normal. Five [id number] lumbar-type vertebral bodies. Vertebral Bodies: Vertebral body heights are well maintained. Disc Spaces and Endplates: Moderate disc volume loss at L5-S1 is noted, with central Schmorl's nodes, with disc desiccation similar to previous MRI. Remaining lumbar intervertebral discs demonstrate normal height, with minor multilevel disc desiccation without significant spondylosis. Spinal Canal: No abnormal developmental findings. Bone Marrow: Minor type I degenerative marrow signal changes seen along the endplates at L5-S1 with associated endplate enhancement consistent with this. Otherwise bone marrow signal intensity appears within normal limits. Conus Medullaris: Terminates at L1-L2. Morphology and signal is normal. No abnormal enhancement. Intradural Nerve Roots: Within normal limits. No abnormal intradural enhancement. L5-S1: Note is made of a central to left subarticular recurrent disc herniation with marginal enhancing soft tissue which may reflect granulation tissue, measuring 6 mm in AP dimension with maximum transverse diameter of 8 mm, with mass effect on the left ventral thecal sac and traversing left S1 nerve root in the subarticular zone. Left hemilaminectomy changes are also noted with enhancing soft tissue in the left side of the canal adjacent to the traversing left S1 nerve root and left side of the thecal sac consistent with postoperative changes. Minor right-sided and [id number] left-sided facet arthrosis is noted. No significant neural foraminal stenosis and no significant central spinal canal stenosis. Note that the above-described disc herniation contacts the right S1 nerve root sleeve as well without nerve root compression or displacement. L4-L5: Small central to left central disc protrusion as noted on previous study with minimal indentation of the ventral thecal sac with associated enhancing annular fissuring at this level. Mild facet arthrosis bilaterally without significant canal or neuroforaminal stenosis. L3-L4: Normal disc contour. No facet arthrosis, canal or neuroforaminal stenosis. L2-L3: Normal disc contour. No facet arthrosis, canal or neuroforaminal stenosis. L1-L2: Normal disc contour. No facet arthrosis, canal or neuroforaminal stenosis. Paraspinal/Retroperitoneal: The paravertebral soft tissues appear grossly unremarkable. MR/MR lumbar spine wo/w con IMPRESSION: ? 1. Degenerative and postoperative change s at L5-S1 as described above with a left central to left subarticular recurrent disc herniation impinging on the traversing left S1 nerve root and slightly contacting the traversing right S1 nerve root sleeve with mild encroachment on the left ventral dural sac as well. 2. Stable small central to left paramedi an disc protrusion at L4-L5 with enhancing annular fissuring. CT Chest: 09/25/2022 FINDINGS: LUNGS: 2 x 5 mm peripheral or subpleural right lower lobe nodule adjacent to the major fissure (axial image 95, series 5) probably representing a subpleural lymph node. 4 mm noncalcified left lower lobe nodule (axial image 112, series 5). 6 mm calcified right lower lobe nodule (axial image 119, series 5). MEDIASTINUM: There are surgical clips in the anterior superior mediastinum. The mediastinum is otherwise normal. Small mediastinal and bilateral hilar lymph nodes including partially calcified right hilar lymph node. No enlarged lymph nodes. Normal heart size. No pericardial effusion. Normal caliber thoracic aorta. No coronary artery calcification. PLEURA: There is no pleural effusion. No pleural mass or thickening.? AXILLA: No lymphadenopathy.? UPPER ABDOMEN: There may be fatty infiltration of the liver. OSSEOUS STRUCTURES: Unremarkable.? CT/CT chest w IV con IMPRESSION: Small, calcified and noncalcified pulmonary nodules. According to Fleischner guidelines, chest CT follow up as per protocol.? ? Fleischner guidelines were followed. US Head and Neck: 01/20/2022 FINDINGS: On the right at level 1B the previously identified 0.6 x 0.4 x 0.5 cm lymph node is not seen on the current study. On the right at level 1B there is a 1.5 x 0.4 x 1.1 cm lymph node with a fatty hilum. The margins appear smooth and hypoechoic. No calcification is seen. Previously, this measured 1.7 x 0.4 x 1.2 cm. On the right at level 3 there is a 0.9 x 0.3 x 0.4 cm lymph node with a fatty hilum. No calcification is seen. This was not apparent previously. In the right supraclavicular region there is a 0.7 x 0.5 x 0.5 cm lymph node with a smooth fatty hilum. However, there is a hypoechoic area with in the fatty hilum which appears abnormal. The hypoechoic periphery of the lymph node appears small in diameter. This lymph node appears suspicious. This was not apparent previously. On the left at level 1B there is a 2.2 x 0.7 x 0.6 cm lymph node. This has a central fatty hilum. The hypoechoic periphery appears smooth without calcification. This was seen previously and appears similar. On the left at level 2 there is a 1.9 x 0.5 x 0.6 cm lymph node which appears abnormal. There is absence of the central fatty hilum. The lymph nodes predominantly hypoechoic. No calcification is seen. On the left at level 2 the previously identified 0.7 x 0.6 x 0.4 cm lymph node is not identified. US/US soft tiss head and/or neck IMPRESSION: ? 1. There is a suspicious 0.7 cm lymph no de in the right supraclavicular region. ? ? 2. There is a suspicious 1.9 cm lymph no de in level 2 on the left without a central fatty hilum. ? ? 3. Ultrasound-guided biopsy is recommend ed. Labs: Laboratory Tests 02/26/23 02/26/23 02/26/23 09:12 09:12 09:12 TSH < 0.01 L Free T4 1.81 Thyroglobulin <0.1 Thyroglobulin Anti body <1 recent neck ultrasound showed 2. Left neck level 2 lymph node measuring 1.9 x 0.5 x 1.3 cm with loss of fatty hilum. [facility] Medical History Failure of spinal cord stimulator Toe pain Thymoma Pulmonary nodules Thyroid cancer Hematuria Mass of spine Type 2 diabetes mellitus with polyneuropathy Blood in urine Constipation by delayed colonic transit Tubular adenoma of colon Gastritis Hypertension Dyslipidemia Post-surgical hypothyroidism Primary thyroid cancer Vitamin D deficiency Surgical History History of thymectomy History of back surgery Hx of colonoscopy Hx of thyroidectomy Hx of hernia repair Hx of section Hx of hysterectomy History of esophagogastroduodenoscopy (EGD) Family History Father Stroke Heart attack Mother Diabetes mellitus Family/Other Family history of cancer Sister Stomach cancer Family/Other Thyroid cancer Social History Household Members: Spouse, Children and Other Alcohol intake: unknown Patient Tobacco Use Status: Former Tobacco user Tobacco use type: Cigarette Second Hand Smoke Exposure: No Sexual orientation: Straight/Heterosexual Gender identity: Female Physical Exam Vital Signs: Last Vital Signs Pulse 75 09/23/23 15:22 BP 112/74 09/23/23 15:22 BMI result Body Mass Index 23.6 Const Other: Healed scar status post thyroidectomy. There is no cervical adenopathy palpated Assessment & Plan Assessment & Plan (1) History of thyroid cancer: Code(s): Z85.850 - Personal history of malignant neoplasm of thyroid Plan: This 62-year-old female with history of history of PTC s/p a total thyroidectomy. She was initially diagnosed with Papillary thyroid cancer in 2009 in [place].? She underwent a total thyroidectomy 04/25/2010 with central neck dissection.? Official surgical path reported a 2.7 cm papillary thyroid carcinoma in the right lobe with capsular invasion and extrathyroidal extension.? There were an additional 2 foci of micropapillary thyroid carcinoma in the remaining right lobe measuring 0.3 and 0.4 cm, as well as a foci in the isthmus measuring 0.5 cm.? There was an additional 1.1 cm focus of PTC within the L lobe.? This was stage [id number].?Postoperative she was treated with 150 mCi of I131 08/07/2010.? Posttreatment WBS 08/14/2010 revealed no iodine avid uptake. She has had abnormal lymph node morphology and was seen by Dr. Balderrama's pedroeague at [facility] . She is on 112 mcg levothyroxine with undetectable TSH and stable thyroglobulin is around 0.1. Plan is to recheck thyroid function studies in 4 weeks with goal of keeping TSH on low side of normal. Will suggest to patient follow-up and [facility] with follow-up neck ultrasound and possible FNA of abnormal lymph node which is left level 2. Orders: Orders Free T4 (Free Thyroxine) 4 Weeks Z85.850 - Personal history of malignant neoplasm of thyroid Thyroid Stimulating Hormone 4 Weeks Z85.850 - Personal history of malignant neoplasm of thyroid Referrals Endocrinology Referral Z85.850 - Personal history of malignant neoplasm of thyroid Coding Level of Care Code Est Pt Level 3 (95726) Diagnoses History of thyroid cancer Z85.850
== END 2023-09-23 16:01 | disposition home or self-care (01) ==
PROVIDERS: PCP Registered Nurse; Visit Provider Internal Medicine Endocrinology, Diabetes & Metabolism
DX: Z85.850 Personal history of malignant neoplasm of thyroid (principal)
CPT/HCPCS: 99213

== ENCOUNTER → 2023-09-23 15:21 | Outpatient (BNVA) | payer OTHER, MEDICAID, SELFPAY | PROVIDERS: Visit Provider Internal Medicine Endocrinology, Diabetes & Metabolism ==

== ENCOUNTER 2023-10-02 09:26 | Outpatient (AMB) | payer OTHER, MEDICAID, SELFPAY ==
--- NOTE | 2023-10-02 09:36 | AM.OFFVISNUR ---
Intake Intake Visit Reasons: IC instillation #3 Allergies Penicillins [PENICILLINS] Allergy (Unknown, Verified 09/23/23 15:28) HIVES Office Procedures Bladder/Catheter Procedure Details: pt presents for IC instillation. states has been having severe lower abd pain, right hip pain and is very concerned bc her sister was recently diagnosed with cancer, pt states she herself also has cancer history, states the pain grabs her bladder and squeezes it . UA done in office- negative. 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 pt wishes to proceed with instillation. #12 fr straight cath used to empty bladder and instill: 10 mls bupivicaine 10,000 units (2 mls) heparin 10 mls lidocaine 2% 10 mls lidocaine urojet 1 ml (40 mg) solumedrol advised pt can go back to weekly instillations if she would like to keep symptoms at bay, pt states at this time she has too many appointments therefore would prefer to hold off for now. 13092-Bipqreznpa of Bladder 52442-Ovkbsz Bladder Catheter Procedure code (CPT) selection complete Results AMB Urinalysis, Automated UA Leukoctes 15 Gigi/uL Last Edit by Omid Casas LPN on 10/02/23 09:45 UA Nitrite Last Edit by Omid Casas LPN on 10/02/23 09:45 UA Urobilinogen 0 mg/dL Last Edit by Omid Casas LPN on 10/02/23 09:45 UA Protein 0 mg/dL Last Edit by Omid Casas LPN on 10/02/23 09:45 UA pH 6.0 Last Edit by Omid Casas LPN on 10/02/23 09:45 UA Blood 0 Scott/uL Last Edit by Omid Casas LPN on 10/02/23 09:45 UA Specific [place] 1.020 Last Edit by Omid Casas LPN on 10/02/23 09:45 UA Ketone Last Edit by Omid Casas LPN on 10/02/23 09:45 UA Bilirubin 0 mg/dL Last Edit by Omid Casas LPN on 10/02/23 09:45 UA Glucose mg/dL Last Edit by Omid Casas LPN on 10/02/23 09:45 Coding CPT Codes Bladder/Catheter Procedure - CPT: 51093-Ytyzaipjvy of Bladder ([id number]) Bladder/Catheter Procedure - CPT: 22982-Eufpyw Bladder Catheter ([id number]) Assessment & Plan Assessment & Plan Orders: Orders AMB Bladder/Catheter Procedure Today N30.20 - Other chronic cystitis without hematuria AMB Urinalysis Automated Today N30.20 - Other chronic cystitis without hematuria
== END 2023-10-02 10:24 | disposition home or self-care (01) ==
PROVIDERS: PCP Registered Nurse; Visit Provider Urology
DX: N30.20 Other chronic cystitis without hematuria (principal)

== ENCOUNTER → 2023-10-02 09:26 | Outpatient (BNVA) | payer OTHER, MEDICAID, SELFPAY | PROVIDERS: PCP Registered Nurse; Visit Provider Urology | DX: N30.20 Other chronic cystitis without hematuria (principal) | CPT/HCPCS: 51700; 51701; 81003 ==

== ENCOUNTER → 2023-10-23 10:16 | Outpatient (BNVA) | payer OTHER, MEDICAID, SELFPAY | PROVIDERS: PCP Registered Nurse; Visit Provider Urology | DX: N30.20 Other chronic cystitis without hematuria (principal) | CPT/HCPCS: 51700; 51701 ==

== ENCOUNTER 2023-10-26 13:17 | Outpatient (REF) | payer OTHER, MEDICAID, SELFPAY ==
[2023-10-27 12:59] LABS: BV Int Neg Control Negative (Negative); BV Int Pos Control Positive (Positive)
== END 2023-10-26 13:18 | disposition home or self-care (01) ==
LOC: HO.HHCLNP 13:17
PROVIDERS: Visit Provider Advanced Practice Midwife
DX: L29.2 Pruritus vulvae (principal); R30.0 Dysuria
CPT/HCPCS: 87086; 87480; 87510; 87660

== ENCOUNTER → 2023-10-30 09:01 | Outpatient (BNVA) | payer OTHER, SELFPAY | PROVIDERS: PCP Registered Nurse; Visit Provider Urology | DX: N30.20 Other chronic cystitis without hematuria (principal) | CPT/HCPCS: 51700; 51701 ==

== ENCOUNTER 2023-11-11 08:07 | Outpatient (AMB) | payer OTHER, SELFPAY ==
--- NOTE | 2023-11-11 08:29 | MHC.OFFVIS ---
Intake Intake Visit Reasons: follow IC installation Intake Note: Patient presents today for a follow-up on IC instillations: Meds- Pyridium, Macrobid & IC Installation Allergies to Antibiotic- Penicillin Blood Thinner- None Post Void Residual: 0 mL Warp Dyeing Tender Required: Yes Warp Dyeing Tender Language: Martiniquais Accompanied by: Self / Same As Patient Allergies Penicillins [PENICILLINS] Allergy (Unknown, Verified 11/11/23 08:30) HIVES Medication List - Last Reconciled 11/11/23 by Analy Campos MD acetaminophen (Tylenol) 650 mg (2 x 325 mg) PO Q6H PRN albuterol sulfate 90 mcg/actuation (ProAir HFA) 2 puffs inhalation Q4-6H PRN blood sugar diagnostic (FreeStyle Lite Strips) Test blood glucose twice per day blood-glucose meter (FreeStyle Lite Meter kit) As directed empagliflozin (Jardiance) 25 mg PO QAM flash glucose scanning reader (TengahStyle Emile 2 Tunas) As directed hydrochlorothiazide 12.5 mg PO DAILY hydrocortisone 2.5% (Proctosol HC) 1 appl VA BID-QID PRN ibuprofen 600 mg PO Q8H PRN levothyroxine 112 mcg PO DAILY losartan 50 mg PO BID trishxeag-ykbkx-dnw 118-10-40.8-36 mg (Uribel) 1 tab PO TID 90 days methylcellulose (laxative) (Citrucel) 500 mg PO DAILY metoprolol succinate ER 50 mg PO DAILY oxybutynin chloride ER 10 mg PO DAILY pantoprazole 40 mg PO DAILY phenazopyridine (Pyridium) 200 mg PO TID phenazopyridine (Pyridium) 200 mg PO Q8H rosuvastatin 40 mg PO DAILY HPI HPI Comments History of Present Illness Details Sapna is a 62-year-old female who presents today to the office for a follow-up. 11/11/23--Sapna is followed due to bladder pain syndrome. She has been treated with bladder installations heparin lidocaine and Solu-Medrol. The patient is a Martiniquais speaking female. 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 PMH includes --hypertension, diabetes, h/o thyroid cancer, followed by endocrine. LV--08/03/2023? I had discussed use of pyridium prior to intercourse and low dose macrobid post intercourse, tylenol and/or OTC NSAID prn. She was prescribed uribel. The patient states the her bladder pain is much better, but not gone. She states she is having urgency daytime and night -time q 30 min to q one hour 11/11/2023: Evaluation today?UA? leukocytes: negative; blood: negative; bladder scan PVR: 0 mL. Review of chart: 03/17/23--Out patient cystoscopy bladder biopsy-- bladder findings, erythematous flattened changes, pathology chronic cystitis with muscularis propria present. 04/23/22-- urine cytology- negative for malignant cells 11/11/2023: Plan: low dose macrobid post intercourse, tylenol and/or OTC NSAID prn Also will continue maintenance bladder instillations with 30,000 units of heparin Cont Uribel TID Start oxybutynin 10 mg qhs Follow-up in 3 months. 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 Blood in urine Constipation by delayed colonic transit Tubular adenoma of colon Gastritis Hypertension Dyslipidemia Post-surgical hypothyroidism Primary thyroid cancer Vitamin D deficiency Surgical History History of thymectomy History of back surgery Hx of colonoscopy Hx of thyroidectomy Hx of hernia repair Hx of section Hx of hysterectomy History of esophagogastroduodenoscopy (EGD) Family History Father Stroke Heart attack Mother Diabetes mellitus Family/Other Family history of cancer Sister Stomach cancer Family/Other Thyroid cancer Social History Household Members: Spouse, Children and Other Alcohol intake: unknown Patient Tobacco Use Status: Former Tobacco user Tobacco use type: Cigarette Second Hand Smoke Exposure: No Sexual orientation: Straight/Heterosexual Gender identity: Female Review of Systems Const All systems reviewed & are unremarkable except as noted in HPI and below Reports no additional complaints Eyes Reports no additional complaints ENT Reports no additional complaints Card Denies dyspnea Resp Denies cough and Denies dyspnea GI Reports no additional complaints Reports no additional complaints Musc Reports no additional complaints Skin/Breast Denies rash and Denies unusual bruising Neuro Reports no additional complaints Psych Reports no additional complaints Endo Reports no additional complaints Je/Lymph Reports no additional complaints Aller/Immun Reports no additional complaints Office Procedures Post Void Residual Post Residual Void Post Void Residual (PVR): 0 [id number] Void Residual by ultrasound Results AMB Urinalysis, Automated UA Leukoctes 0 Gigi/uL Last Edit by Sumanth Newman [facility] on 11/11/23 08:45 UA Nitrite Negative Last Edit by Sumanth Newman [facility] on 11/11/23 08:45 UA Urobilinogen 0.2 mg/dL Last Edit by Sumanth Newman [facility] on 11/11/23 08:45 UA Protein 0 mg/dL Last Edit by Sumanth Newman [facility] on 11/11/23 08:45 UA pH 6.0 Last Edit by Sumanth Newman [facility] on 11/11/23 08:45 UA Blood 0 Scott/uL Last Edit by Sumanth Newman [facility] on 11/11/23 08:45 UA Specific [place] 1.010 Last Edit by Sumanth Newman [facility] on 11/11/23 08:45 UA Ketone Negative Last Edit by Sumanth Newman [facility] on 11/11/23 08:45 UA Bilirubin 0 mg/dL Last Edit by Sumanth Newman [facility] on 11/11/23 08:45 UA Glucose 0 mg/dL Last Edit by Sumanth Newman [facility] on 11/11/23 08:45 Results Reviewed Results Reviewed: Laboratory Last Values Urine pH (Auto) 6.0 11/11/23 08:41 Specific [place] (Auto) 1.010 11/11/23 08:41 Urine Protein (Auto) 0 mg/dL 11/11/23 08:41 Glucose (UA)(Auto) 0 mg/dL 11/11/23 08:41 Urine Ketones (Auto) Negative 11/11/23 08:41 Urine Blood (Auto) 0 Scott/uL 11/11/23 08:41 Urine Nitrite (Auto) Negative 11/11/23 08:41 Urine Bilirubin (Auto) 0 mg/dL 11/11/23 08:41 Urine Urobilinogen (Auto) 0.2 mg/dL 11/11/23 08:41 Leukocyte Esterase (Auto) 0 Gigi/uL 11/11/23 08:41 Assessment & Plan Assessment & Plan (1) Chronic cystitis: Code(s): N30.20 - Other chronic cystitis without hematuria (2) Dysuria: Code(s): R30.0 - Dysuria (3) Bladder pain: Code(s): R39.89 - Other symptoms and signs involving the genitourinary system (4) Pelvic pain: Code(s): R10.2 - Pelvic and perineal pain (5) Dyspareunia in female: Code(s): N94.10 - Unspecified dyspareunia Plan low dose macrobid post intercourse, tylenol and/or OTC NSAID prn Also will continue maintenance bladder instillations with 30,000 units of heparin Cont Uribel TID Start oxybutynin 10 mg qhs Follow-up in 3 months. Orders: Orders AMB Urinalysis Automated Today Z13.9 - Encounter for screening, unspecified AMB Post Void Residual by ultrasound Today N39.8 - Other specified disorders of urinary system Medications: New oxybutynin chloride ER 10 mg PO DAILY 90 tabs 3RF nitrofurantoin macrocrystal 50 mg orally use as directed post intercourse; must administer with a meal/food 30 caps 3RF Patient Instructions: The patient had an opportunity to ask questions regarding treatment plan. All questions were answered. Imaging, Laboratory studies and physical exam results were discussed and reviewed in detail. No major barriers to understanding were identified. The patient expressed understanding and agreement with the above treatment plan. The patient is aware they should contact our office by phone for worsening of their current condition or the appearance of new symptoms. Compliance is encouraged with any medications and followup testing that is ordered. It is a privilege to be allowed the opportunity to participate in the urologic care of your patient. If you have any questions or concerns regarding treatment for the above conditions please do not hesitate to contact me. The office telephone contact is [phone]. This note is constructed in part using voice recognition software. While every effort has been made to ensure accuracy filler sifter machine errors may have been included. Yours sincerely, Analy Campos MD Coding Level of Care Code Est Pt Level 4 (95609) Diagnoses Chronic cystitis N30.20 Dysuria R30.0 Bladder pain R39.89 Pelvic pain R10.2 Dyspareunia in female N94.10 CPT Codes Post Residual Void - PVR CPT Code: 80017-Nvmf Void Residual by ultrasound ([id number])
== END 2023-11-11 09:31 | disposition home or self-care (01) ==
LOC: HO.HUSH 08:07
PROVIDERS: PCP Registered Nurse; Visit Provider Urology
DX: N30.20 Other chronic cystitis without hematuria (principal); R30.0 Dysuria; R39.89 Other symptoms and signs involving the genitourinary system; R10.2 Pelvic and perineal pain; N94.10 Unspecified dyspareunia; Z13.9 Encounter for screening, unspecified
CPT/HCPCS: 99214

== ENCOUNTER → 2023-11-11 08:07 | Outpatient (BNVA) | payer OTHER, SELFPAY | PROVIDERS: PCP Registered Nurse; Visit Provider Urology | DX: N30.20 Other chronic cystitis without hematuria (principal); R39.89 Other symptoms and signs involving the genitourinary system; N94.10 Unspecified dyspareunia; R10.2 Pelvic and perineal pain | CPT/HCPCS: 51798; 81003 ==

== ENCOUNTER → 2023-11-13 09:25 | Outpatient (BNVA) | payer OTHER, SELFPAY | PROVIDERS: PCP Registered Nurse; Visit Provider Urology | DX: N30.20 Other chronic cystitis without hematuria (principal) | CPT/HCPCS: 51700; 51701 ==

== ENCOUNTER 2023-11-15 10:18 | Emergency (ER) | payer OTHER, SELFPAY ==
--- NOTE | ~2023-11-15 | CT_ITS ---
EXAMINATION: CT ABDOMEN AND PELVIS WITHOUT CONTRAST CLINICAL INFORMATION: Right flank pain COMPARISON: CT abdomen from 02/15/2023 TECHNIQUE: Multidetector volumetric imaging was performed from the superior aspect of the liver through the pubic symphysis. Sagittal and coronal reformatted images were obtained on the technologist's workstation. This CT examination was performed using dose optimization techniques as appropriate, variously including the following: *Automated exposure control *Adjustment of mA and/or kV according to patient size (this includes techniques or standardized protocols for targeted exams where dose is matched to indication/reason for exam; i.e. extremities or head) *Use of iterative reconstruction technique DLP: 378 mGy-cm FINDINGS: LUNG BASES: Bibasilar atelectasis. No pneumothorax. No large pleural effusion. LIVER, GALLBLADDER, AND BILIARY TREE: The liver is normal in size, shape, and attenuation. No focal hepatic lesion or biliary ductal dilatation is present. The gallbladder is unremarkable with no evidence of radiopaque gallstones, gallbladder wall thickening, or obvious pericholecystic inflammatory changes. PANCREAS: Unremarkable. SPLEEN: Unremarkable. Splenule measuring 5 mm. ADRENAL GLANDS: Unremarkable. KIDNEYS AND URETERS: Duplicated right renal collecting system and . The kidneys are normal in size, shape, and attenuation. No hydronephrosis, hydroureter, or calculi seen. No perinephric stranding. BLADDER: Unremarkable. GASTROINTESTINAL TRACT: Slight jeniffer-enteric haziness involving loops of small bowel in the left mid/upper abdomen without wall thickening, nonspecific. This may reflect focal enteritis versus summation artifact, correlation with symptomatology. Small hiatal hernia. Colonic diverticulosis acute diverticulitis The small and large bowel are unremarkable. The appendix is unremarkable. ABDOMINAL WALL: No significant hernia is appreciated. LYMPH NODES: A few subcentimeter mesenteric lymph nodes are noted in the right lower abdomen, nonspecific though may reflect elements of mesenteric adenitis in the appropriate clinical setting. VASCULAR: Abdominal aorta is nonaneurysmal. Atherosclerotic calcifications in the abdominal aorta and its branches. PELVIC VISCERA: Uterus appears surgically absent. OSSEOUS STRUCTURES: Multilevel degenerative changes of the thoracolumbar lumbosacral spine greatest at L5-S1 spinal stimulator along the right posterior iliac bone entering at the level of L5-S1 and terminating along the inferior endplate of L1. CT/CT abdomen pelvis wo IV con IMPRESSION: 1. Slight jeniffer-enteric haziness involving loops of small bowel in the left mid/upper abdomen without wall thickening, nonspecific. This may reflect focal enteritis versus summation artifact, correlation with symptomatology. 2. A few subcentimeter mesenteric lymph nodes are noted in the right lower abdomen, nonspecific though may reflect elements of mesenteric adenitis in the appropriate clinical setting. 3. Small hiatal hernia. 4. Colonic diverticulosis without acute diverticulitis.
[2023-11-15 10:23] VITALS: BP 145/77; PULSE 96; RESP 16; TEMP 36.1; O2SAT 97; BMI 24.0
[2023-11-15 10:54] LABS: MANUAL DIFF FLAG NO
[2023-11-15 10:56] LABS: Basophils Absolute Auto 0.1 X10*3/uL (0.0-0.2); Basophils Percent Auto 1.2 % (0-2); Eosinophils Absolute Auto 0.1 X10*3/uL (0.0-0.4); Eosinophils Percent Auto 1.2 % (0-4); Hematocrit 36.4 % (37.0-47.0); Hemoglobin 11.9 g/dl (12.0-16.0); Imm Gran Abs Auto 0.02 X10*3/uL (0.00-0.03); Imm Gran Pct Auto 0.3 % (0.0-0.4); Lymphocytes Absolute Auto 1.7 X10*3/uL (1.2-4.9); Lymphocytes Percent Auto 29.3 % (20-40); Mean Corpuscular HGB Conc 32.7 g/dl (31.0-35.0); Mean Corpuscular Hemoglobin 24.7 pg (27.0-33.0); Mean Corpuscular Volume 75.7 fL (80.0-98.0); Mean Platelet Volume 10.3 fL (9.4-12.3); Monocytes Absolute Auto 0.4 X10*3/uL (0.1-1.2); Monocytes Percent Auto 6.6 % (2-11); Neutrophils Absolute Auto 3.6 x10*3/uL (2.0-8.3); Neutrophils Percent Auto 61.4 % (45-73); Platelet Count 219 X10*3/uL (160-400); Red Blood Count 4.81 X10*6/uL (4.20-5.50); Red Cell Distribution Width 13.5 % (11.0-16.0); White Blood Count 5.9 X10*3/uL (4.8-10.8)
[2023-11-15 11:13] LABS: Alanine Aminotransferase 14 U/L (0-31); Albumin Level 4.6 g/dL (3.5-5.0); Alkaline Phosphatase 78 U/L (39-117); Anion Gap 15 (12-20); Aspartate Amino Transferase 18 U/L (5-31); Bilirubin Total 0.4 mg/dL (0.0-1.0); Blood Urea Nitrogen 17 mg/dL (9-16); Calcium 9.6 mg/dL (8.4-10.2); Carbon Dioxide 24 mmol/L (22-29); Chloride 103 mmol/L (96-108); Estimated Glomerular Filt Rate > 60; Glucose Random 127 mg/dL (60-115); Potassium 4.3 mmol/L (3.3-5.1); Sodium 138 mmol/L (135-145); Total Protein 7.9 g/dL (6.5-8.0)
--- NOTE | 2023-11-15 16:13 | ED.GENADULT ---
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 Patient states that she has had this pain over the last 5 days with nausea and increased fatigue. Patient denies any dizziness, lightheadedness, vomiting, fever, chills, blurry vision, double vision, loss of vision, chest pain, difficulty breathing, shortness of breath, back pain, night sweats, pain with urination, increased urinary frequency, increased urinary urgency, blood in her urine or stool, syncope or a near syncopal episode, recent trauma or falls, bowel incontinence, bladder incontinence, bowel retention, bladder retention, or any other complaints at this time. Onset (ago): day(s) (5) Location: abdomen Radiation: non-radiation Severity: mild Severity scale (1-10): 3 Quality: aching and dull Pain Consistency: constant Relieving factors: none Exacerbating factors: none Associated symptoms: nausea/vomiting Treatments prior to arrival: none Related Data Home Medications Medication Instructions Recorded Confirmed losartan 50 mg tablet 50 mg PO BID 10/10/20 11/11/23 metoprolol succinate 50 mg 50 mg PO DAILY 02/06/21 11/11/23 tablet,extended release 24 hr albuterol sulfate 90 mcg/actuation 2 puff inhalation Q4-6H PRN 09/05/22 11/11/23 aerosol inhaler (ProAir HFA) Wheezing hydrochlorothiazide 12.5 mg tablet 12.5 mg PO DAILY 03/17/23 11/11/23 empagliflozin 25 mg tablet 25 mg PO QAM 09/23/23 11/11/23 (Jardiance) Previous Rx's Medication Instructions Recorded blood sugar diagnostic (FreeStyle #100 ea 07/09/21 Lite Strips) blood-glucose meter (FreeStyle #1 ea 03/12/22 Lite Meter kit) flash glucose scanning reader #1 ea 04/11/22 (FreeStyle Emile 2 [place]) pantoprazole 40 mg tablet,delayed 40 mg PO DAILY #90 tabs 01/13/23 release hydrocortisone 2.5 % topical cream 1 appl HI BID-QID PRN hemorrhoids 03/13/23 with perineal applicator #30 grams (Proctosol HC) phenazopyridine 200 mg tablet 200 mg PO TID #30 tabs 03/17/23 (Pyridium) acetaminophen 325 mg tablet 650 mg (2 x 325 mg) PO Q6H PRN 05/06/23 (Tylenol) pain #14 tabs ibuprofen 600 mg tablet 600 mg PO Q8H PRN pain #14 tabs 05/06/23 methylcellulose (laxative) 500 mg 500 mg PO DAILY #90 tabs 07/01/23 tablet (Citrucel) rosuvastatin 40 mg tablet 40 mg PO DAILY #60 tabs 07/06/23 levothyroxine 112 mcg tablet 112 mcg PO DAILY #30 tabs 09/08/23 methenam 118 mg-m.blue 10 1 tab PO TID 90 days #180 caps 10/23/23 mg-s.phos 40.8 mg-p.salic 36 mg-hyos capsule (Uribel) phenazopyridine 200 mg tablet 200 mg PO Q8H pain with urination 10/23/23 (Pyridium) #60 tabs nitrofurantoin macrocrystal 50 mg 50 mg PO .COMPLEX #30 caps 11/11/23 capsule oxybutynin chloride 10 mg 10 mg PO DAILY #90 tabs 11/11/23 tablet,extended release 24 hr Allergies Allergy/AdvReac Type Severity Reaction Status Date / Time Penicillins [PENICILLINS] Allergy Unknown HIVES Verified 11/15/23 10:23 Review of Systems Constitutional: Constitutional: Reports no additional constitutional complaints, Denies chills, Denies fever(s) and Denies night sweats Eyes: Eyes: Reports no additional eye complaints, Denies blurry vision, Denies change in vision, Denies diplopia, Denies eye discharge, Denies loss of vision and Denies eye pain ENT: Denies dizziness Cardiovascular: Cardiovascular: Reports no additional cardiovascular complaints, Denies chest pain, Denies lightheadedness, Denies Loss of Consciousness and Denies dyspnea Respiratory: Respiratory: Reports no additional respiratory complaints and Denies dyspnea Gastrointestinal: Gastrointestinal: Reports no additional gastrointestinal complaints, Reports abdominal pain, Denies melena, Denies hematochezia, Denies change in bowel habits, Denies change in stool character, Reports nausea and Denies vomiting Genitourinary: Genitourinary: Denies hematuria, Denies urinary frequency, Denies dysuria, Denies urinary incontinence, Denies urinary hesitancy and Denies urinary urgency Musculoskeletal: Musculoskeletal: Reports no additional musculoskeletal complaints, Denies numbness and Denies tingling Neurologic: Denies dizziness, Denies loss of vision, Denies numbness and Denies tingling Psychiatric: Psychiatric: Reports no additional psychiatric complaints Endocrine: Endocrine: Reports no additional endocrine complaints Hematologic/Lymphatic: Hematologic/Lymphatic: Reports no additional hematologic/lymphatic complaints Allergic/Immunologic: Allergic/Immunologic: Reports no additional allergic/immunologic complaints [facility] Past Medical History Attestation statement: The following information was validated with the patient. Source: old records reviewed and nursing notes reviewed Medical History Pelvic pain Leg pain Bladder pain Palpitations Lower abdominal pain Gross hematuria Toe pain Right knee pain Effusion, right knee Dysuria Pelvic pain in female Hematuria Mass of spine Hematuria Type 2 diabetes mellitus with polyneuropathy DM2 (diabetes mellitus, type 2) Nail deformity Non-cardiac chest pain Paronychia Failure of spinal cord stimulator Thymoma Pulmonary nodules Thyroid cancer Blood in urine Constipation by delayed colonic transit Tubular adenoma of colon Gastritis Hypertension Dyslipidemia Post-surgical hypothyroidism Primary thyroid cancer Vitamin D deficiency Surgical History History of thymectomy History of back surgery Hx of colonoscopy Hx of thyroidectomy Hx of hernia repair Hx of section Hx of hysterectomy History of esophagogastroduodenoscopy (EGD) Family History Family History Father Stroke Heart attack Mother Diabetes mellitus Family/Other Family history of cancer Sister Stomach cancer Family/Other Thyroid cancer Social History Social History Household Members: Spouse, Children and Other Alcohol intake: unknown Patient Tobacco Use Status: Former Tobacco user Tobacco use type: Cigarette Smoked in Last 30 Days: No Second Hand Smoke Exposure: No Use of substances other than those prescribed or required for medical reasons: No Advance Directives: No Advance Directives Information Provided: No Sexual orientation: Straight/Heterosexual Gender identity: Female Physical Exam ED Vital Signs: Vital Signs - 24 hr 11/15/23 10:23 Temperature 96.9 F Pulse Rate 96 Respiratory Rate 16 Blood Pressure 145/77 H Pulse Oximetry 97 Oxygen Delivery Method Room Air BMI result Body Mass Index 24.0 Const General: cooperative, no acute distress, alert and awake Nutritional Appearance: well nourished Orientation/consciousness: patient oriented x3 Limitations: no limitations HENMT Head: Yes normal to inspection and Yes atraumatic Ears: hearing grossly normal bilaterally and external ears normal General nose exam: Normal external nose present, no nasal discharge noted and no epistaxis Face and sinus: Yes normal facial exam, No abrasion and No laceration Mouth: Normal oral and palatal mucosa present, no drooling and no muffled voice Eyes General: appearance normal, both eyes and all related structures Periorbital: periorbital findings normal Eyelids: Yes eyelids normal Conjunctivae: conjunctivae normal Pupils: Equal, round and reactive pupils present EOM: EOMs intact bilaterally Neck Neck: Yes normal visual inspection, Yes full ROM and Yes no lymphadenopathy Chest Chest palpation & inspection: normal inspection of the chest Resp Effort & Inspection: normal respiratory effort and able to speak in complete sentences GI Inspection: Yes normal to inspection Palpation (GI): Soft to palpation, not firm, nontender, no guarding and not rigid Neuro General: patient oriented x3 and moves all extremities Cranial nerves: Yes Equal, round and reactive pupils present Cognition (Neuro): normal cognition Motor exam (neuro): 5/5 motor strength present throughout Sensory Exam: Normal double simultaneous stimulation for sensation Coordination: [id number] test normal Extrem General: Yes normal to inspection, Yes full ROM and Yes capillary refill normal Psych Appearance: grossly normal Mental Status: mental status grossly normal Affect: normal affect Attitude: cooperative Thought process: Normal thought process present Thought content: Normal thought content present Insight: Good insight present (Psych) Medications Administered Discontinued Medications Generic Name Dose Route Start Last Admin Trade Name Freq PRN Reason Stop Dose Admin Oxycodone HCl 10 mg 11/15/23 16:47 11/15/23 17:21 Oxycodone Hcl Immed Release 5 Mg Tablet PO 11/15/23 16:48 10 mg ONCE ONE Administration Medical Decision Making Medical Decision Making MDM Narrative: Patient is a 62 year old assigned female at with a history of chronic cystitis, DM, and CRPS presenting to the emergency department today with abdominal pain. Patient's physical exam was unremarkable. Patient's blood work was unremarkable. Patient's urine showed no acute process. Patient's abdomen/ pelvis CT showed evidence of mesenteric adenitis. I explained my physical exam findings as well as all test results to the patient. I answered all questions asked by the patient. I stressed the importance of the patient taking her medication as prescribed. I stressed the importance of the patient following up with her primary care provider. I stressed the importance of the patient returning to the emergency department immediately if her symptoms were to worsen or if she were to develop any dizziness, shortness of breath, difficulty breathing, chest pain, blurry vision, loss of vision, nausea, vomiting, abdominal pain, fever, chills, back pain, or any other complaints. Patient verbalized agreement and understanding with this treatment plan and discharge. Differential Diagnosis Differential Diagnoses: The differential diagnosis associated with the presentation includes Abdominal pain Nausea Viral illness Mesenteric adenitis Gastroenteritis Enteritis Admission/Observation Consideration of admission/observation: Escalation of care including admission/observation considered Patient would have been admitted to the hospital had her work up had any findings where hospital admission was appropriate and her clinical presentation warranted hospital admission. Lab Data MDM Lab Attestation statement: I reviewed the patient's lab results. My interpretation of these studies and their corresponding values is that they are grossly normal. 11/15/23 10:49 11/15/23 10:49 Labs: Lab Results 11/15/23 11/15/23 Range/Units 10:49 17:20 WBC 5.9 (4.8-10.8) X10*3/uL RBC 4.81 (4.20-5.50) X10*6/uL Hgb 11.9 L (12.0-16.0) g/dl Hct 36.4 L (37.0-47.0) % MCV 75.7 L (80.0-98.0) fL MCH 24.7 L (27.0-33.0) pg MCHC 32.7 (31.0-35.0) g/dl RDW 13.5 (11.0-16.0) % Plt Count 219 (160-400) X10*3/uL MPV 10.3 (9.4-12.3) fL Immature Gran % (Auto) 0.3 (0.0-0.4) % Neut % (Auto) 61.4 (45-73) % Lymph % (Auto) 29.3 (20-40) % Edgar % (Auto) 6.6 (2-11) % Eos % (Auto) 1.2 (0-4) % Baso % (Auto) 1.2 (0-2) % Lymph # (Auto) 1.7 (1.2-4.9) X10*3/uL Edgar # (Auto) 0.4 (0.1-1.2) X10*3/uL Eos # (Auto) 0.1 (0.0-0.4) X10*3/uL Baso # (Auto) 0.1 (0.0-0.2) X10*3/uL Abs Immat Gran (auto) 0.02 (0.00-0.03) X10*3/uL Absolute Neuts (auto) 3.6 (2.0-8.3) x10*3/uL Absolute Nucleated RBC 0.000 (0.0-0.012) X10*3/uL Nucleated RBC % (auto) 0.0 (0.0-0.2) /100WBC Sodium 138 (135-145) mmol/L Potassium 4.3 D (3.3-5.1) mmol/L Chloride 103 (96-108) mmol/L Carbon Dioxide 24 (22-29) mmol/L Anion Gap 15 (12-20) BUN 17 H (9-16) mg/dL Creatinine 0.72 (0.5-1.4) mg/dL Estim Creat Clear Calc 71.0 Estimated GFR > 60 Random Glucose 127 H (60-115) mg/dL Calcium 9.6 (8.4-10.2) mg/dL Total Bilirubin 0.4 (0.0-1.0) mg/dL AST 18 (5-31) U/L ALT 14 (0-31) U/L Alkaline Phosphatase 78 (39-117) U/L Total Protein 7.9 (6.5-8.0) g/dL Albumin 4.6 (3.5-5.0) g/dL Urine Color Yellow Urine Appearance Clear Urine pH 7.0 (5.0-9.0) Ur Specific [place] 1.010 (1.005-1.025) Urine Protein Negative (Neg-Trace) mg/dL Urine Glucose (UA) Negative (Negative) mg/dL Urine Ketones Trace (Negative) mg/dL Urine Blood Negative (Negative) Urine Nitrite Negative (Negative) Ur Leukocyte Esterase Trace H (Negative) Urine RBC 0-2 (0-2) /HPF Urine WBC 0-5 (0-5) /HPF Ur Squamous Epith Cells 0-2 (0-2) /HPF Urine Bacteria None Seen (None Seen) Hyaline Casts 0-2 (0-2) /LPF Independent Interpretation I performed an independent interpretation of an: CT Scan Interpretation: My interpretation is in agreement with the radiologist's impression of this imaging study. EXAMINATION: CT ABDOMEN AND PELVIS WITHOUT CONTRAST CLINICAL INFORMATION: Right flank pain COMPARISON: CT abdomen from 02/15/2023 TECHNIQUE: Multidetector volumetric imaging was performed from the superior aspect of the liver through the pubic symphysis. Sagittal and coronal reformatted images were obtained on the technologist's workstation. This CT examination was performed using dose optimization techniques as appropriate, variously including the following: *Automated exposure control *Adjustment of mA and/or kV according to patient size (this includes techniques or standardized protocols for targeted exams where dose is matched to indication/reason for exam; i.e. extremities or head) *Use of iterative reconstruction technique DLP: 378 mGy-cm FINDINGS: LUNG BASES: Bibasilar atelectasis. No pneumothorax. No large pleural effusion. LIVER, GALLBLADDER, AND BILIARY TREE: The liver is normal in size, shape, and attenuation. No focal hepatic lesion or biliary ductal dilatation is present. The gallbladder is unremarkable with no evidence of radiopaque gallstones, gallbladder wall thickening, or obvious pericholecystic inflammatory changes. PANCREAS: Unremarkable. SPLEEN: Unremarkable. Splenule measuring 5 mm. ADRENAL GLANDS: Unremarkable. KIDNEYS AND URETERS: Duplicated right renal collecting system and . The kidneys are normal in size, shape, and attenuation. No hydronephrosis, hydroureter, or calculi seen. No perinephric stranding. BLADDER: Unremarkable. GASTROINTESTINAL TRACT: Slight jeniffer-enteric haziness involving loops of small bowel in the left mid/upper abdomen without wall thickening, nonspecific. This may reflect focal enteritis versus summation artifact, correlation with symptomatology. Small hiatal hernia. Colonic diverticulosis acute diverticulitis The small and large bowel are unremarkable. The appendix is unremarkable. ABDOMINAL WALL: No significant hernia is appreciated. LYMPH NODES: A few subcentimeter mesenteric lymph nodes are noted in the right lower abdomen, nonspecific though may reflect elements of mesenteric adenitis in the appropriate clinical setting. VASCULAR: Abdominal aorta is nonaneurysmal. Atherosclerotic calcifications in the abdominal aorta and its branches. PELVIC VISCERA: Uterus appears surgically absent. OSSEOUS STRUCTURES: Multilevel degenerative changes of the thoracolumbar lumbosacral spine greatest at L5-S1 spinal stimulator along the right posterior iliac bone entering at the level of L5-S1 and terminating along the inferior endplate of L1. CT/CT abdomen pelvis wo IV con IMPRESSION: 1. Slight jeniffer-enteric haziness involving loops of small bowel in the left mid/upper abdomen without wall thickening, nonspecific. This may reflect focal enteritis versus summation artifact, correlation with symptomatology. 2. A few subcentimeter mesenteric lymph nodes are noted in the right lower abdomen, nonspecific though may reflect elements of mesenteric adenitis in the appropriate clinical setting. 3. Small hiatal hernia. 4. Colonic diverticulosis without acute diverticulitis. Dictated By: Christiana Taylor MD Signed By: Electronically signed by Christiana Taylor MD 11/15/23 3334 Radiology Impression Discussion of test interpretation with radiology: I have reviewed the radiologist's reading. Chronic Conditions Patient?s care impacted by: Diabetes Discharge Plan Discharge Clinical Impression: Mesenteric adenitis Patient Disposition: Home, Self-Care Instructions: Mesenteric Adenitis (ED) Additional Instructions: Follow up with your primary care provider. Return to the emergency department immediately if your symptoms worsen or if you develop any dizziness, shortness of breath, difficulty breathing, chest pain, blurry vision, loss of vision, nausea, vomiting, abdominal pain, fever, chills, back pain, or any other complaints. Galindo un seguimiento con chambers proveedor de atenci?n primaria. Regrese al departamento de emergencias inmediatamente si terrie s?ntomas empeoran o si presenta mareos, dificultad para respirar, dificultad para respirar, dolor en el pecho, visi?n borrosa, p?rdida de la visi?n, n?useas, v?mitos, dolor abdominal, fiebre, escalofr?os, dolor de espalda o cualquier otras quejas. Prescriptions: No Action (DME) FreeStyle Lite Strips Strip See Rx Instructions .ROUTE .MEDSUPPLY Qty: 100 10RF Rx Instructions: Test blood glucose twice per day (DME) FreeStyle Emile 2 [place] Misc See Rx Instructions .ROUTE .MEDSUPPLY Qty: 1 0RF Rx Instructions: As directed levothyroxine 112 mcg tablet 112 mcg PO DAILY Qty: 30 5RF albuterol sulfate [ProAir HFA] 90 mcg/actuation HFA aerosol inhaler 2 puff INHALATION Q4-6H PRN (Reason: Wheezing) hydrochlorothiazide 12.5 mg tablet 12.5 mg PO DAILY phenazopyridine [Pyridium] 200 mg tablet 200 mg PO TID Qty: 30 0RF Rx Instructions: take with food as can cause nausea ibuprofen 600 mg tablet 600 mg PO Q8H PRN (Reason: pain) Qty: 14 0RF acetaminophen [Tylenol] 325 mg tablet 650 mg PO Q6H PRN (Reason: pain) Qty: 14 0RF metoprolol succinate 50 mg tablet extended release 24 hr 50 mg PO DAILY losartan 50 mg tablet 50 mg PO BID (DME) blood-glucose meter [FreeStyle Lite Meter] Kit See Rx Instructions .ROUTE .MEDSUPPLY Qty: 1 0RF Rx Instructions: As directed pantoprazole 40 mg tablet,delayed release (DR/EC) 40 mg PO DAILY Qty: 90 2RF Rx Instructions: take one tablet half an hour before breakfast hydrocortisone [Proctosol HC] 2.5 % cream with perineal applicator 1 appl HI BID-QID PRN (Reason: hemorrhoids) Qty: 30 2RF Citrucel 500 mg tablet 500 mg PO DAILY Qty: 90 2RF Rx Instructions: take it with full glass of water oxybutynin chloride 10 mg tablet extended release 24hr 10 mg PO DAILY Qty: 90 3RF nitrofurantoin macrocrystal 50 mg capsule 50 mg PO .COMPLEX Qty: 30 3RF Rx Instructions: 50 mg orally use as directed post intercourse; must administer with a meal/food rosuvastatin 40 mg tablet 40 mg PO DAILY Qty: 60 3RF Jardiance 25 mg tablet 25 mg PO QAM phenazopyridine [Pyridium] 200 mg tablet 200 mg PO Q8H Qty: 60 0RF Rx Instructions: take with food Uribel 118-10-40.8-36 mg capsule 1 tab PO TID 90 Days Qty: 180 1RF Rx Instructions: administer with plenty of fluids Referrals: Juliet Bird FNP [Primary Care Provider] - Interventions: ED Discharge Assessment Last Done: 11/15/23 17:28 Discharge Date/Time: 11/15/23 17:30 Print Language: Portuguese
[2023-11-15] MEDS: oxyCODONE HCl Immed Release 5 MG TABLET 10 MG PO (17:21)
--- NOTE | 2023-11-15 17:28 | PC.NURSE ---
pt a&o x4, pleasant, calm, and cooperative. malian speaking only. family at bedside. pt reporting 9/10 pain to RLQ and head. pt medicated per jan. discharge instructions given with conference interpreter at bedside. rr even/unlabored.
[2023-11-15 17:31] LABS: Appearance Urine Clear; Color Urine Yellow; Glucose Urine UA Negative (Negative); Leukocyte Esterase Urine Trace (Negative); Nitrite Urine Negative (Negative); UMIC TRIGGER UACC YES; Urine Blood Negative (Negative); Urine Ketones Trace mg/dL (Negative); Urine Protein Negative (Neg-Trace)
[2023-11-15 17:33] LABS: Bacteria Urine None Seen (None Seen); Hyaline Casts Urine 0-2 /LPF (0-2); RBC Urine 0-2 /HPF (0-2); Squamous Epithelial Cell Urine 0-2 /HPF (0-2); WBC Urine 0-5 /HPF (0-5)
== END 2023-11-15 17:30 | disposition home or self-care (01) ==
PROVIDERS: Emergency Provider Emergency Medicine; PCP Registered Nurse
DX: I88.0 Nonspecific mesenteric lymphadenitis (principal); E11.9 Type 2 diabetes mellitus without complications; I10 Essential (primary) hypertension
CPT/HCPCS: 36415; 74176; 80053; 81001; 85025; 99284

== ENCOUNTER 2023-11-18 08:05 | Outpatient (REF) | payer OTHER, SELFPAY | END 2023-11-18 08:06 | disposition home or self-care (01) | LOC: HO.US 08:05 | PROVIDERS: PCP Registered Nurse; Visit Provider Nurse Practitioner Family | DX: R10.9 Unspecified abdominal pain (principal) | CPT/HCPCS: 76700 ==

== ENCOUNTER 2023-11-19 12:35 | Outpatient (AMB) | payer OTHER, SELFPAY ==
[2023-11-19 12:47] VITALS: BP 112/72; PULSE 77; BMI 23.0
--- NOTE | 2023-11-19 12:47 | MHC.OFFVIS ---
Intake Vital Signs 11/19/23 12:47 Height 5 ft 5 in Weight 138 lb 0.15 oz BMI 23.0 BP 112/72 Blood Pressure Location Lt brachial Position Sitting Pulse 77 Pulse Source Pulse Oximeter Intake Visit Reasons: followup appt Intake Note: f/up its feeling fine. Fabric Finisher Required: Yes Fabric Finisher Name: Evaristo/jean claude Accompanied by: Self / Same As Patient Allergies Penicillins [PENICILLINS] Allergy (Unknown, Verified 11/15/23 10:23) HIVES Medication List - Last Reconciled 11/19/23 by BEVERLY Gu acetaminophen (Tylenol) 650 mg (2 x 325 mg) PO Q6H PRN albuterol sulfate 90 mcg/actuation (ProAir HFA) 2 puffs inhalation Q4-6H PRN blood sugar diagnostic (FreeStyle Lite Strips) Test blood glucose twice per day blood-glucose meter (FreeStyle Lite Meter kit) As directed empagliflozin (Jardiance) 25 mg PO QAM flash glucose scanning reader (FreeStyle Emile 2 Felton) As directed hydrochlorothiazide 12.5 mg PO DAILY hydrocortisone 2.5% (Proctosol HC) 1 appl PA BID-QID PRN ibuprofen 600 mg PO Q8H PRN levothyroxine 112 mcg PO DAILY losartan 50 mg PO BID metformin ER 500 mg PO BID trishrpnw-eelyg-eal 118-10-40.8-36 mg (Uribel) 1 tab PO TID 90 days methylcellulose (laxative) (Citrucel) 500 mg PO DAILY metoprolol succinate ER 50 mg PO DAILY nitrofurantoin macrocrystal 50 mg orally use as directed post intercourse; must administer with a meal/food oxybutynin chloride ER 10 mg PO DAILY pantoprazole 40 mg PO DAILY phenazopyridine (Pyridium) 200 mg PO TID phenazopyridine (Pyridium) 200 mg PO Q8H rosuvastatin 40 mg PO DAILY HPI followup appt HPI Details Sapna is a 62-year-old female past medical history of hypertension, hyperlipidemia, diabetes, atypical chest discomfort, heart palpitations presents for follow-up. Today she reports that she has been getting some intermittent sharp pains in her left breast region. She does have tenderness to palpation in that area. She denies any exertional chest discomfort. More often this discomfort occurs when she is laying down. At times in the morning she will notice heart palpitations for her heart is beating strong. She has had no sustained rapid or irregular heartbeats. No presyncope, syncope, falls. No shortness of breath, PND, orthopnea or edema. She takes all meds as directed. 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 [facility] Medical History (Updated 11/19/23 @ 13:20 by Anitra Melchor NP-C) Palpitations Non-cardiac chest pain Pelvic pain Leg pain Bladder pain Lower abdominal pain Gross hematuria Toe pain Right knee pain Effusion, right knee Dysuria Pelvic pain in female Hematuria Mass of spine Hematuria Type 2 diabetes mellitus with polyneuropathy DM2 (diabetes mellitus, type 2) Nail deformity Paronychia Failure of spinal cord stimulator Thymoma Pulmonary nodules Thyroid cancer Blood in urine Constipation by delayed colonic transit Tubular adenoma of colon Gastritis Hypertension Dyslipidemia Post-surgical hypothyroidism Primary thyroid cancer Vitamin D deficiency Surgical History History of thymectomy History of back surgery Hx of colonoscopy Hx of thyroidectomy Hx of hernia repair Hx of section Hx of hysterectomy History of esophagogastroduodenoscopy (EGD) Family History Father Stroke Heart attack Mother Diabetes mellitus Family/Other Family history of cancer Sister Stomach cancer Family/Other Thyroid cancer Social History Household Members: Spouse, Children and Other Alcohol intake: unknown Patient Tobacco Use Status: Former Tobacco user Tobacco use type: Cigarette Second Hand Smoke Exposure: No Sexual orientation: Straight/Heterosexual Gender identity: Female Review of Systems Const All systems reviewed & are unremarkable except as noted in HPI and below Denies chills, Denies fatigue, Denies fever(s), Denies frequent falls, Denies weakness, Denies weight gain and Denies weight loss ENT Denies dizziness Card Details: left breast pain Denies chest pain, Denies leg edema, Denies lightheadedness, Denies palpitations, Denies dyspnea, Denies dyspnea on exertion and Denies orthopnea Resp Denies cough, Denies dyspnea and Denies dyspnea on exertion GI Denies hematochezia Musc Denies abnormal gait, Denies muscle weakness, Denies numbness, Denies radiating pain into limb and Denies tingling Neuro Denies abnormal gait, Denies dizziness, Denies frequent falls, Denies numbness, Denies tingling and Denies weakness Endo Denies fatigue and Denies palpitations Physical Exam Vital Signs: Last Vital Signs Pulse 77 11/19/23 12:47 BP 112/72 11/19/23 12:47 BMI result Body Mass Index 23.0 Const General: cooperative, healthy appearing, comfortable and no acute distress Orientation/consciousness: patient oriented x3 Neck Neck: Yes normal visual inspection Resp Effort & Inspection: normal respiratory effort Auscultation: clear to auscultation bilaterally, no crackles, no rales, no rhonchi and no wheezes Cardio Jugular venous distension: no JVD Rate: regular rate Rhythm: regular rhythm Heart sounds: S1 normal heart sound present, no gallops, no murmurs and no rubs Skin General skin exam: no rashes or lesions noted Neuro General: patient oriented x3 Extrem General: Yes normal to inspection Psych Appearance: grossly normal Mental Status: mental status grossly normal Speech and movement: Normal speech and movement present Assessment & Plan Assessment & Plan (1) Palpitations: Code(s): R00.2 - Palpitations Plan: Report of intermittent heart palpitations where her heart is beating strong, mostly in the a.m. is a. Does not seem to be a great concern for her at this time. She is on metoprolol XL 50 mg daily. Noted to have hyperthyroidism on labs last done 09/08/2023 showing TSH less than 0.01. She tells me that at that time her levothyroxine dose was reduced. She has not had a repeat TSH since then. Lab orders are in the system and she was reminded to obtain. Pulse is regular on examination today. A Holter monitor had been done on 02/26/2023 for 7 days showing sinus rhythm with average heart rate 89, rare ectopy. Echocardiogram done 11/18/2018 showing EF normal, grade 1 diastolic dysfunction, no valve abnormalities. Will hold off on further testing at this time. If she continues to report heart palpitations with plan to update echocardiogram and consider cardiac event monitor. Continue metoprolol. Cardiology follow-up in 6 months, sooner if needed (2) Non-cardiac chest pain: Comment: This is reproducible chest pain and is noncardiac in origin. Likely cause musculoskeletal pain. Code(s): R07.89 - Other chest pain Plan: Reports of left-sided chest discomfort that is reproducible to palpation. She will get sharp pains to that region intermittently, mostly when laying down. No reports of exertional chest discomfort. She does have multiple cardiac risk factors including hypertension, hyperlipidemia and diabetes. Current discomfort is noncardiac, offered reassurance. Reviewed signs and symptoms of angina with her. She is on medications for risk factor modification. Hemoglobin A1c goal less than 7. Tanner LDL goal less than 70 in diabetic patient. Rosuvastatin dose increased last visit. Fasting lipid profile has been ordered patient states she will obtain tomorrow. She is on metoprolol XL and losartan for blood pressure control. Blood pressure currently 112/72. Emergency care if ever needed for symptoms. Instructed to contact us if she has any other types of chest discomfort, especially exertional. (3) Hypertension: Code(s): I10 - Essential (primary) hypertension Plan: Well controlled (4) Dyslipidemia: Code(s): E78.5 - Hyperlipidemia, unspecified Plan: As above Plan Time spent on chart review, documentation, interview and assessment Orders: Orders Lipid Panel Today E78.5 - Hyperlipidemia, unspecified Coding Level of Care Code Est Pt Level 3 (59249) Diagnoses Palpitations R00.2 Non-cardiac chest pain R07.89 Hypertension I10 Dyslipidemia E78.5 Time Spent (min) 24
== END 2023-11-19 13:28 | disposition home or self-care (01) ==
PROVIDERS: PCP Registered Nurse; Visit Provider Nurse Practitioner Family
DX: R00.2 Palpitations (principal); R07.89 Other chest pain; I10 Essential (primary) hypertension; E78.5 Hyperlipidemia, unspecified
CPT/HCPCS: 99213

== ENCOUNTER → 2023-11-19 12:35 | Outpatient (BNVA) | payer OTHER, SELFPAY | PROVIDERS: PCP Registered Nurse; Visit Provider Nurse Practitioner Family ==

== ENCOUNTER 2023-11-20 08:38 | Outpatient (REF) | payer OTHER, SELFPAY | END 2023-11-20 08:39 | disposition home or self-care (01) | LOC: HO.LAB 08:38 | PROVIDERS: Absent Provider Nurse Practitioner Family; PCP Student in an Organized Health Care Education/Training Program; Visit Provider Internal Medicine Endocrinology, Diabetes & Metabolism | DX: N30.20 Other chronic cystitis without hematuria (principal); E78.5 Hyperlipidemia, unspecified; Z85.850 Personal history of malignant neoplasm of thyroid | CPT/HCPCS: 36415; 51700; 51701; 80061; 84439; 84443 ==

== ENCOUNTER 2023-11-23 09:27 | Outpatient (AMB) | payer OTHER, SELFPAY ==
--- NOTE | 2023-11-23 10:00 | MHC.OFFVIS ---
Intake Vital Signs 11/23/23 10:04 Height 5 ft 5 in Weight 143 lb 4.807 oz BMI 23.8 BP 112/62 Blood Pressure Location Lt brachial Position Sitting Pulse 83 Intake Visit Reasons: 3 month f/u US Intake Note: Sapna presents in the office as a 3 month follow up. CC: She states that she was having pains in her stomach on Nov 15 and she ended up in Urgent Care. She was given miralax and they did an Ultrasound. Radio Station Operator Required: Yes Radio Station Operator Name: Maddie [id number] Allergies Penicillins [PENICILLINS] Allergy (Unknown, Verified 11/23/23 10:04) HIVES HPI 3 month f/u US HPI Details LAST VISIT Pelvic pain Patient was encouraged to increase fluid intake. Will order pelvic ultrasound. Patient was encouraged to call her art teacher RLQ abdominal pain Right lower quadrant abdominal pain most likely muscular. Patient reports that she is moving her bowels well. As mentioned above will send her for pelvic ultrasound. Mild tenderness to right lower quadrant. I will see patient in 3 months, sooner on as needed basis. Patient is agreeable to this plan and verbalizes understanding of instructions. She was given the opportunity to ask questions and all questions answered. ? Thank you for allowing me to participate in her care Plan Orders Orders US pelvic complete Today R10.2, R10.31 TODAY'S VISIT: Patient is here today for follow-up and to discuss ultrasound results. Patient reports that she was seen in the ER on the 15 of November for abdominal pain. Patient reports that she has right upper quadrant pain, same pain that she had in the last few years. HIDA scan was done last year and it showed normal gallbladder. Ultrasound was done last week and it was negative for any acute processes. Patient had CT scan done in day ER that did not show any acute processes except for possible mesenteric adenitis in the right lower quadrant, no explain reason for pain in the right upper quadrant. Upon reviewing CT scan noticed moderate stool burden on the right her colon, scattered stool throughout her large intestine. Patient reports that she is taking Linzess, however she feels like it helps her move her bowels, only able to go small amounts. Patient does not feel like she empties her bowels completely. Denies any nausea or vomiting. Denies any melena, hematochezia, unintentional weight loss or ribbon like stools. Patient reports that pain is not associated with meals [facility] Medical History (Updated 11/19/23 @ 13:20 by Anitra Melchor, ACCOUNT MANAGER EMPLOYEE BENEFITS-C) Palpitations Non-cardiac chest pain Pelvic pain Leg pain Bladder pain Lower abdominal pain Gross hematuria Toe pain Right knee pain Effusion, right knee Dysuria Pelvic pain in female Hematuria Mass of spine Hematuria Type 2 diabetes mellitus with polyneuropathy DM2 (diabetes mellitus, type 2) Nail deformity Paronychia Failure of spinal cord stimulator Thymoma Pulmonary nodules Thyroid cancer Blood in urine Constipation by delayed colonic transit Tubular adenoma of colon Gastritis Hypertension Dyslipidemia Post-surgical hypothyroidism Primary thyroid cancer Vitamin D deficiency Surgical History History of thymectomy History of back surgery Hx of colonoscopy Hx of thyroidectomy Hx of hernia repair Hx of section Hx of hysterectomy History of esophagogastroduodenoscopy (EGD) Family History Father Stroke Heart attack Mother Diabetes mellitus Family/Other Family history of cancer Sister Stomach cancer Family/Other Thyroid cancer Social History Household Members: Spouse, Children and Other Alcohol intake: unknown Patient Tobacco Use Status: Former Tobacco user Tobacco use type: Cigarette Second Hand Smoke Exposure: No Sexual orientation: Straight/Heterosexual Gender identity: Female Review of Systems Const Denies weight gain and Denies weight loss ENT Reports no additional complaints, Denies dysphagia and Denies odynophagia Card Reports no additional complaints Resp Reports no additional complaints GI Reports abdominal pain (RUQ), Denies belching, Denies melena, Denies bloating, Denies change in bowel habits, Reports constipation, Denies dysphagia, Denies excessive flatus, Denies dyspepsia, Denies heartburn, Denies diarrhea, Denies loose stools, Denies nausea, Denies odynophagia and Denies vomiting Reports no additional complaints Musc Reports no additional complaints Neuro Reports no additional complaints Psych Reports no additional complaints Endo Reports no additional complaints Physical Exam Vital Signs: Last Vital Signs Pulse 83 11/23/23 10:04 BP 112/62 11/23/23 10:04 BMI result Body Mass Index 23.8 Const General: healthy appearing, no acute distress and well developed Nutritional Appearance: well nourished Orientation/consciousness: patient oriented x3 HEENT Head: Yes normal to inspection, Yes normocephalic and Yes atraumatic Face and sinus: Yes normal facial exam Mouth: Normal oral and palatal mucosa present Throat: Yes posterior oropharynx normal, Yes tonsils normal and Yes uvula midline Eyes General: appearance normal, both eyes and all related structures Neck Neck: Yes normal visual inspection, Yes full ROM and Yes trachea midline Thyroid: Thyroid normal Resp Effort & Inspection: normal respiratory effort, able to speak in complete sentences, no tracheal deviation and symmetric chest movement Auscultation: clear to auscultation bilaterally Cardio Rate: regular rate GI Inspection: Yes normal to inspection and No distended Palpation (GI): Soft to palpation, not firm, nontender and No hepatosplenomegaly present Auscultation: normal bowel sounds General: Yes no CVA tenderness Back/Spine/Pelvis Back: no CVA tenderness Skin General skin exam: elasticity normal, turgor normal and dry skin Neuro General: patient oriented x3 Psych Appearance: grossly normal Mental Status: mental status grossly normal Results Reviewed Results Reviewed: US OF ABDOMEN FINDINGS: PANCREAS: Normal. ABDOMINAL AORTA: The proximal, mid, and distal segments are normal in caliber. INFERIOR VENA CAVA: Visualized portions are normal. LIVER: Normal. The liver is normal in size. The liver contour is normal. Parenchymal echogenicity is normal. No focal hepatic lesion. There is no intrahepatic biliary duct dilatation seen. GALLBLADDER: Normal. The gallbladder is physiologically distended without evidence of stones, sludge, polyps, wall thickening or pericholecystic fluid. COMMON BILE DUCT: Normal in caliber measuring 0.9 cm in diameter. RIGHT KIDNEY: No hydronephrosis. No renal calculi or focal parenchymal lesions. The kidney measures 12.7 cm in maximum dimension. LEFT KIDNEY: No hydronephrosis. No renal calculi or focal parenchymal lesions. The kidney measures 11.1 cm in maximum dimension. SPLEEN: Normal. The spleen measures 9.1 cm in maximum dimension. FREE FLUID: None. US/US abdomen complete IMPRESSION: Unremarkable examination. Assessment & Plan Assessment & Plan (1) Constipation by delayed colonic transit: Code(s): K59.01 - Slow transit constipation (2) Lower abdominal pain: Code(s): R10.30 - Lower abdominal pain, unspecified (3) RUQ abdominal pain: Code(s): R10.11 - Right upper quadrant pain Plan Right upper quadrant pain on like fully related to gallbladder, pain not associated with meals. Most likely constipation, gas trapping pain and inability to empty her bowels completely. Patient will increase Linzess to 290 mcg daily. Ultrasound without any acute processes. No cholelithiasis or cholecystitis. Patient was also encouraged to increase fluid intake. Low FODMAP diet to prevent bloating. Patient will return in 5 weeks, sooner on as needed basis. Patient is agreeable to this plan and verbalizes understanding of instructions. She was given the opportunity to ask questions and all questions answered. Thank you for allowing me to participate in her care Medications: New sennosides (Natural Senna Laxative) 17.2 mg (2 x 8.6 mg) PO QDAY 60 tabs 3RF linaclotide (Linzess) 290 mcg PO QAM 30 caps 4RF K59.00 - Constipation, unspecified Discontinued levothyroxine Discontinued Reason: Doctor's Order 112 mcg PO DAILY 30 tabs 5RF Coding Level of Care Code Est Pt Level 4 (77368) Diagnoses Constipation by delayed colonic transit K59.01 Lower abdominal pain R10.30 RUQ abdominal pain R10.11 Time Spent (min) 35 Comment 20 minutes spent with patient and additional 15 minutes spent reviewing her records
[2023-11-23 10:04] VITALS: BP 112/62; PULSE 83; BMI 23.8
== END 2023-11-23 10:46 | disposition home or self-care (01) ==
PROVIDERS: PCP Student in an Organized Health Care Education/Training Program; Visit Provider Nurse Practitioner Family
DX: K59.01 Slow transit constipation (principal); R10.30 Lower abdominal pain, unspecified; R10.11 Right upper quadrant pain
CPT/HCPCS: 99214

== ENCOUNTER → 2023-11-23 09:27 | Outpatient (BNVA) | payer OTHER, SELFPAY | PROVIDERS: PCP Student in an Organized Health Care Education/Training Program; Visit Provider Nurse Practitioner Family ==

== ENCOUNTER → 2023-11-27 09:46 | Outpatient (BNVA) | payer OTHER, SELFPAY | PROVIDERS: PCP Student in an Organized Health Care Education/Training Program; Visit Provider Urology | DX: N30.20 Other chronic cystitis without hematuria (principal) | CPT/HCPCS: 51700; 51701 ==

== ENCOUNTER 2023-12-03 10:05 | Outpatient (REF) | payer OTHER, SELFPAY ==
--- NOTE | ~2023-12-03 | MM_ITS ---
EXAMINATION: BONE DENSITOMETRY CLINICAL INDICATION: Postmenopausal. COMPARISON: Previous BD dated 11/02/2020 and baseline BD dated 12/11/2017. TECHNIQUE: Using a [employer] DXA System (software version: 13.1) manufactured by [employer], dual-energy x-ray absorptiometry was performed of the lumbar spine and left hip. The images are of good technical quality. Summary results are attached. FINDINGS: LEFT FEMUR, NECK: Current: BMD 1.087 g/cm2, Z-score 1.8, T-score 0.4, normal. Prior: BMD 1.115 g/cm2. Baseline: BMD 1.151 g/cm2. LEFT FEMUR, TOTAL: Current: BMD 1.116 g/cm2, Z-score 2.0, T-score 0.9, normal, 2.8% decrease from previous, 3.7% decrease from baseline (<5% change is not significant). Prior: BMD 1.148 g/cm2. Baseline: BMD 1.159 g/cm2. AP SPINE L2-L4 (L3) (excluding L1 and L3): The data of L1-L4 has been changed to exclude the L1 and L3 vertebral bodies, because degenerative sclerosis at these levels may cause overestimation of lumbar spine density. Current: BMD 1.090 g/cm2, Z-score 0.6, T-score -0.9, normal, 4.7% decrease from previous, 2.3% decrease from baseline (<5% change is not significant). Prior: BMD 1.144 g/cm2. Baseline: BMD 1.116 g/cm2. IDENTIFIED RISK FACTORS: Early menopause, height loss, hysterectomy, left oophorectomy, recurrent falls, secondary osteoporosis. HISTORY OF FRACTURE: None listed. MEDICATIONS: Calcium. MM/XR DEXA axial skeleton IMPRESSION: 1. DIAGNOSIS: Normal bone density based on the lowest T-score value of -0.9 in the lumbar spine applying World Health Organization criteria. 2. 10-YEAR FRACTURE RISK PREDICTION, FRAX: According to the guidelines, FRAX calculation should only be performed on patients in the osteopenia bone density category. Therefore, FRAX was not performed on this patient. 3. Treatment Recommendations: NOF guidelines recommend consideration for treatment in postmenopausal women and men age 50 and older presenting with the following: -A hip or vertebral (clinical or morphometric) fracture. -T-score less than or equal to -2.5 at the femoral neck or spine after appropriate evaluation to exclude secondary causes. -Low bone mass at the hip or spine and a 10-year fracture probability by FRAX of greater than or equal to 3% for hip fracture or greater than or equal to 20% for major osteoporotic fracture based on the [place] adapted WHO algorithm. 4. Other Recommendations: All treatment decisions require clinical judgment and consideration of individual patient factors, including patient preferences, comorbidities, previous drug use, risk factors not captured in the FRAX model (e.g. frailty, falls, vitamin D deficiency, increased bone turnover, interval significant decline in bone density) and possible under or overestimation of fracture risk by FRAX. FUTURE SCAN RECOMMENDATION: People with diagnosed cases of osteoporosis or at high risk for fracture should have regular bone mineral density tests. For patients eligible for Medicare, routine testing is allowed once every 2 years. The testing frequency can be increased to one year for patients who have rapidly progressing disease, those who are receiving or discontinuing medical therapy to restore bone mass, or have additional risk factors.
== END 2023-12-03 10:06 | disposition home or self-care (01) ==
LOC: HO.MAMMO 10:05
PROVIDERS: PCP Student in an Organized Health Care Education/Training Program; Visit Provider Advanced Practice Midwife
DX: Z13.820 Encounter for screening for osteoporosis (principal); Z78.0 Asymptomatic menopausal state
CPT/HCPCS: 77080

== ENCOUNTER → 2023-12-18 09:09 | Outpatient (BNVA) | payer OTHER, SELFPAY | PROVIDERS: PCP Student in an Organized Health Care Education/Training Program; Visit Provider Urology | DX: N30.20 Other chronic cystitis without hematuria (principal) | CPT/HCPCS: 51700; 51701 ==

== ENCOUNTER 2023-12-25 09:51 | Outpatient (AMB) | payer OTHER, SELFPAY ==
--- NOTE | 2023-12-25 10:16 | AM.OFFVISNUR ---
Intake Intake Visit Reasons: IC instillation wk #8 Allergies Penicillins [PENICILLINS] Allergy (Unknown, Verified 11/23/23 10:04) HIVES Results AMB Urinalysis, Automated UA Leukoctes 15 Gigi/uL Last Edit by Omid Casas LPN on 12/25/23 10:19 UA Nitrite Negative Last Edit by Omid Casas LPN on 12/25/23 10:19 UA Urobilinogen 0 mg/dL Last Edit by Omid Casas LPN on 12/25/23 10:19 UA Protein 0 mg/dL Last Edit by Omid Casas LPN on 12/25/23 10:19 UA pH 7.0 Last Edit by Omid Casas LPN on 12/25/23 10:19 UA Blood 0 Scott/uL Last Edit by Omid Casas LPN on 12/25/23 10:19 UA Specific [place] 1.010 Last Edit by Omid Casas LPN on 12/25/23 10:19 UA Ketone Negative Last Edit by Omid Casas LPN on 12/25/23 10:19 UA Bilirubin 0 mg/dL Last Edit by Omid Casas LPN on 12/25/23 10:19 UA Glucose 3 mg/dL Last Edit by Omid Casas LPN on 12/25/23 10:19 Coding Assessment & Plan Assessment & Plan Orders: Orders AMB Urinalysis Automated Today N30.20 - Other chronic cystitis without hematuria
== END 2023-12-25 10:20 | disposition home or self-care (01) ==
LOC: HO.HUSH 09:51
PROVIDERS: PCP Student in an Organized Health Care Education/Training Program; Visit Provider Urology
DX: N30.20 Other chronic cystitis without hematuria (principal)

== ENCOUNTER → 2023-12-25 09:51 | Outpatient (BNVA) | payer OTHER, SELFPAY | PROVIDERS: PCP Student in an Organized Health Care Education/Training Program; Visit Provider Urology | DX: N30.20 Other chronic cystitis without hematuria (principal) | CPT/HCPCS: 81003 ==

== ENCOUNTER 2023-12-28 11:41 | Outpatient (AMB) | payer OTHER, SELFPAY ==
--- NOTE | 2023-12-28 11:49 | MHC.OFFVIS ---
Intake Vital Signs 12/28/23 11:53 Height 5 ft 5 in Weight 146 lb BMI 24.3 BP 103/58 L Blood Pressure Location Lt brachial Position Sitting Pulse 87 Intake Visit Reasons: 5 week follow up Intake Note: Patient follow up for Constipation. Patient cc: right side of abdominal with pain, better with constipation and swallowing problems with solid food. Denies any other GI issues. Transcript Evaluator Required: Yes Transcript Evaluator Name: [facility] Interpeter Accompanied by: Self / Same As Patient Allergies Penicillins [PENICILLINS] Allergy (Unknown, Verified 12/28/23 11:49) HIVES HPI 5 week follow up HPI Details LAST VISIT Constipation by delayed colonic transit Lower abdominal pain RUQ abdominal pain Plan Right upper quadrant pain on like fully related to gallbladder, pain not associated with meals. Most likely constipation, gas trapping pain and inability to empty her bowels completely. Patient will increase Linzess to 290 mcg daily. Ultrasound without any acute processes. No cholelithiasis or cholecystitis. Patient was also encouraged to increase fluid intake. Low FODMAP diet to prevent bloating. Patient will return in 5 weeks, sooner on as needed basis. Patient is agreeable to this plan and verbalizes understanding of instructions. She was given the opportunity to ask questions and all questions answered. ? Thank you for allowing me to participate in her care Medications New sennosides (Natural Senna Laxative) 17.2 mg (2 x 8.6 mg) PO QDAY 60 tabs 3RF linaclotide (Linzess) 290 mcg PO QAM 30 caps 4RF K59.00 Discontinued levothyroxine Discontinued Reason: Doctor's Order 112 mcg PO DAILY 30 tabs 5RF TODAY'S VISIT: Patient is here today for follow-up. Patient reports that since she started taking Linzess she is feeling better. She is able to move her bowels. Her pain has gotten better, however occasional right lower quadrant discomfort. Patient reports in the last 2 weeks she started having trouble swallowing. It happens mostly with meat and solid food. Patient also reports that even though she drinks lot of water she feels like her mouth is very dry. Patient denies any dysphagia with liquids. Patient denies choking episodes. Patient denies any fever or chills. Denies melena, hematochezia, unintentional weight loss or ribbon like stools. [facility] Medical History (Updated 11/19/23 @ 13:20 by Anitra Melchor NP-C) Palpitations Non-cardiac chest pain Pelvic pain Leg pain Bladder pain Lower abdominal pain Gross hematuria Toe pain Right knee pain Effusion, right knee Dysuria Pelvic pain in female Hematuria Mass of spine Hematuria Type 2 diabetes mellitus with polyneuropathy DM2 (diabetes mellitus, type 2) Nail deformity Paronychia Failure of spinal cord stimulator Thymoma Pulmonary nodules Thyroid cancer Blood in urine Constipation by delayed colonic transit Tubular adenoma of colon Gastritis Hypertension Dyslipidemia Post-surgical hypothyroidism Primary thyroid cancer Vitamin D deficiency Surgical History History of thymectomy History of back surgery Hx of colonoscopy Hx of thyroidectomy Hx of hernia repair Hx of section Hx of hysterectomy History of esophagogastroduodenoscopy (EGD) Family History Father Stroke Heart attack Mother Diabetes mellitus Family/Other Family history of cancer Sister Stomach cancer Family/Other Thyroid cancer Social History Household Members: Spouse, Children and Other Alcohol intake: unknown Patient Tobacco Use Status: Former Tobacco user Tobacco use type: Cigarette Second Hand Smoke Exposure: No Sexual orientation: Straight/Heterosexual Gender identity: Female Review of Systems Const Denies weight gain and Denies weight loss ENT Reports no additional complaints, Reports dysphagia and Denies odynophagia Card Reports no additional complaints Resp Reports no additional complaints GI Denies abdominal pain, Denies belching, Denies melena, Denies bloating, Denies change in bowel habits, Reports dysphagia, Denies excessive flatus, Denies dyspepsia, Denies heartburn, Denies diarrhea, Denies loose stools, Denies nausea, Denies odynophagia and Denies vomiting Musc Reports no additional complaints Neuro Reports no additional complaints Psych Reports no additional complaints Endo Reports no additional complaints Physical Exam Vital Signs: Last Vital Signs Pulse 87 02/12/24 11:53 BP 103/58 L 12/28/23 11:53 BMI result Body Mass Index 24.3 Const General: healthy appearing, no acute distress and well developed Nutritional Appearance: well nourished Orientation/consciousness: patient oriented x3 Resp Effort & Inspection: normal respiratory effort, able to speak in complete sentences, no tracheal deviation and symmetric chest movement Auscultation: clear to auscultation bilaterally Cardio Rate: regular rate GI Inspection: Yes normal to inspection and No distended Palpation (GI): Soft to palpation, not firm, nontender and No hepatosplenomegaly present Auscultation: normal bowel sounds General: Yes no CVA tenderness Back/Spine/Pelvis Back: no CVA tenderness Skin General skin exam: elasticity normal, turgor normal and dry skin Neuro General: patient oriented x3 Psych Appearance: grossly normal Mental Status: mental status grossly normal Assessment & Plan Assessment & Plan (1) Dysphagia: Code(s): R13.10 - Dysphagia, unspecified Qualifiers: Dysphagia type: pharyngoesophageal phase Qualified Code(s): R13.14 - Dysphagia, pharyngoesophageal phase (2) Constipation by delayed colonic transit: Code(s): K59.01 - Slow transit constipation (3) Lower abdominal pain: Code(s): R10.30 - Lower abdominal pain, unspecified (4) RLQ abdominal pain: Code(s): R10.31 - Right lower quadrant pain Plan Patient reports dysphagia starting 2 weeks ago. Had ultrasound done by her information technology assistant for thyroid evaluation did not show any abnormal findings. I will send patient for barium swallow to rule out stricture, Schatzki, achalasia, esophageal dysmotility. Referral to ENT sent. Patient denies any sore throat or cold symptoms. Encourage patient to drink water with lemon or suck on lemon candy to improve mouth dryness. Patient will continue taking Linzess. She was encouraged to increase fluid intake and activity to promote better bowel motility. Pain in her right lower quadrant most likely is related to gas, possibility of gas trapping pain. Negative exam. Discussed with patient will FODMAP diet. List of food recommended as well as list of food to avoid given to patient. I will see patient in 2 months, sooner on as needed basis. Patient is agreeable to this plan and verbalizes understanding of instructions. She was given the opportunity to ask questions and all questions answered. Thank you for allowing me to participate in her care Orders: Orders FL barium swallow Today R13.10 - Dysphagia, unspecified Referrals Ear/Nose/Throat Referral R13.10 - Dysphagia, unspecified Coding Level of Care Code Est Pt Level 4 (59085) Diagnoses Pharyngoesophageal dysphagia R13.14 Dysphagia type: pharyngoesophageal phase Constipation by delayed colonic transit K59.01 Lower abdominal pain R10.30 RLQ abdominal pain R10.31 Time Spent (min) 35 Comment 25 minutes spent with patient and additional 10 minutes spent reviewing her records
[2023-12-28 11:53] VITALS: BP 103/58; PULSE 87; BMI 24.3
== END 2023-12-28 12:10 | disposition home or self-care (01) ==
PROVIDERS: PCP Student in an Organized Health Care Education/Training Program; Visit Provider Nurse Practitioner Family
DX: R13.14 Dysphagia, pharyngoesophageal phase (principal); K59.01 Slow transit constipation; R10.30 Lower abdominal pain, unspecified; R10.31 Right lower quadrant pain
CPT/HCPCS: 99214

== ENCOUNTER → 2023-12-28 11:41 | Outpatient (BNVA) | payer OTHER, SELFPAY | PROVIDERS: PCP Student in an Organized Health Care Education/Training Program; Visit Provider Nurse Practitioner Family ==

== ENCOUNTER → 2024-01-01 09:36 | Outpatient (BNVA) | payer OTHER, SELFPAY | PROVIDERS: PCP Student in an Organized Health Care Education/Training Program; Visit Provider Urology ==

== ENCOUNTER → 2024-01-07 10:21 | Outpatient (BNVA) | payer OTHER, SELFPAY | PROVIDERS: PCP Student in an Organized Health Care Education/Training Program; Visit Provider Urology | DX: N30.20 Other chronic cystitis without hematuria (principal) | CPT/HCPCS: 51700; 51701 ==

== ENCOUNTER 2024-01-11 10:24 | Outpatient (REF) | payer OTHER, SELFPAY ==
--- NOTE | ~2024-01-11 | US_ITS ---
EXAMINATION: MM DIAGNOSTIC DIGITAL BREAST TOMOSYNTHESIS, BILATERAL US BREAST LIMITED, LEFT MAMMOGRAPHY: CLINICAL INFORMATION: 63 year female complaining of left medial breast pain at approximately 10:00 axis as per patient. Providers note states left tenderness upper and lower inner aspects. Patient also due for bilateral screening. COMPARISON: Mammography: 01/07/2023, 01/01/2022, 12/19/2020, 08/17/2019. TECHNIQUE: Digital breast tomosynthesis is performed in both the craniocaudal and mediolateral oblique views along with computer-aided detection (CAD). Synthesized 2D images are generated from the tomosynthesis. In addition to standard views, a full-field left 3-D ML view was also obtained. FINDINGS: There are scattered areas of fibroglandular density (ACR BI-RADS breast composition Category b). Marker has been placed in the approximate 10:00 axis of the left breast medially, with the assistance of the patient indicating the region of pain. No underlying mammographic abnormality is evident. There are no suspicious masses, suspicious grouped calcifications, or areas of architectural distortion in either breast. There are mild vascular calcifications. The parenchymal pattern is stable from prior exams. ULTRASOUND: CLINICAL INFORMATION: Medial left breast pain approximate 10:00 axis. COMPARISON: None relevant. TECHNIQUE: Targeted sonographic evaluation left breast was performed using a high frequency linear transducer. Attention was focused in the region of pain as indicated by the patient, left breast 7-11 o'clock axes. Selected archived documentation. FINDINGS: LEFT BREAST: There is a mixture of fatty and fibroglandular tissue. No suspicious mass is seen. There is no pathologic acoustic shadowing. There is no ultrasonographic correlate to the region of medial left breast pain in the approximate 10:00 axis. US/US breast LT limited mamm only IMPRESSION: There are no findings suspicious for malignancy in either breast. There is no imaging correlate on mammography or sonography for the region of left breast medial pain. Recommend clinical management. Otherwise, recommend returning to routine annual screening. OVERALL ASSESSMENT: Mammography: BI-RADS 2 - Benign Findings Ultrasound: BI-RADS 2 - Benign Findings RECOMMENDATION: 1. Patient should be managed based on the clinical impression. 2. Otherwise, routine annual screening mammography. This patient's information was entered into a reminder system with a target due date for their next mammogram.
== END 2024-01-11 10:25 | disposition home or self-care (01) ==
LOC: HO.MAMMO 10:24
PROVIDERS: PCP Student in an Organized Health Care Education/Training Program; Visit Provider Internal Medicine
DX: Z12.31 Encounter for screening mammogram for malignant neoplasm of breast (principal)
CPT/HCPCS: 77062; 77063; 77066; 77067

== ENCOUNTER 2024-01-12 08:53 | Outpatient (REF) | payer OTHER, SELFPAY ==
[2024-01-12 11:27] LABS: Hematocrit 39.5 % (37.0-47.0); Hemoglobin 12.2 g/dl (12.0-16.0); Mean Corpuscular HGB Conc 30.9 g/dl (31.0-35.0); Mean Corpuscular Hemoglobin 24.5 pg (27.0-33.0); Mean Corpuscular Volume 79.5 fL (80.0-98.0); Mean Platelet Volume 11.5 fL (9.4-12.3); Platelet Count 252 X10*3/uL (160-400); Red Blood Count 4.97 X10*6/uL (4.20-5.50); Red Cell Distribution Width 15.6 % (11.0-16.0); White Blood Count 7.9 X10*3/uL (4.8-10.8)
[2024-01-12 12:06] LABS: Alanine Aminotransferase 15 U/L (0-31); Albumin Level 4.7 g/dL (3.5-5.0); Alkaline Phosphatase 78 U/L (39-117); Anion Gap 11 (12-20); Aspartate Amino Transferase 18 U/L (5-31); Bilirubin Total 0.4 mg/dL (0.0-1.0); Blood Urea Nitrogen 22 mg/dL (9-16); Calcium 9.5 mg/dL (8.4-10.2); Carbon Dioxide 28 mmol/L (22-29); Chloride 107 mmol/L (96-108); Estimated Glomerular Filt Rate > 60; Glucose Random 128 mg/dL (60-115); Potassium 4.3 mmol/L (3.3-5.1); Sodium 142 mmol/L (135-145); Total Protein 8.2 g/dL (6.5-8.0)
[2024-01-12 12:08] LABS: HBc Num1 0.11 S/CO (0.00-0.79); HBsAGNum1 0.58 S/CO (0.00-0.99); HIV AB/AG Nonreactive (Nonreactive); HIV Num 1 0.05 S/CO (0.00-0.99); Hepatitis B Core Antibody Nonreactive (Nonreactive); Hepatitis B Surface Antigen Negative (Negative); Syphilis Screen Nonreactive (Nonreactive); ~HepC Num1 0.16 S/CO (0.00-0.79); ~Hepatitis B Surface Antibody NONREACTIVE (Nonreactive); ~Hepatitis C Antibody Nonreactive (Nonreactive)
[2024-01-12 12:40] LABS: Vitamin D 25-OH Total 31.4 ng/mL (>30)
[2024-01-12 16:17] LABS: Estimated Average Glucose 160 mg/dL; Hemoglobin A1c % 7.2 % (<6.0)
[2024-01-12 16:55] LABS: Folate 12.7 ng/mL (> or = 4.0)
[2024-01-12 18:04] LABS: Creatinine Urine 31.68 mg/dL; Microalbum/Creatinine Ratio Ur 15.7 ug/mg cr (<30)
[2024-01-13 11:57] LABS: CT PCR NOT DETECTED (Not Detect.); NG PCR NOT DETECTED (Not Detect.)
[2024-01-13 15:39] LABS: Vitamin B12 455 pg/mL (200-900)
== END 2024-01-12 08:54 | disposition home or self-care (01) ==
LOC: HO.HHCL 08:53
PROVIDERS: Visit Provider Student in an Organized Health Care Education/Training Program
DX: Z00.00 Encounter for general adult medical examination without abnormal findings (principal); Z11.4 Encounter for screening for human immunodeficiency virus [HIV]; Z20.2 Contact with and (suspected) exposure to infections with a predominantly sexual mode of transmission
CPT/HCPCS: 0353U; 36415; 80053; 82043; 82306; 82570; 82607; 82746; 83036; 85027; 86704; 86706; 86780; 86803; 87340; 87389

== ENCOUNTER 2024-01-13 13:39 | Outpatient (REF) | payer OTHER, SELFPAY ==
--- NOTE | ~2024-01-13 | XR_ITS ---
EXAMINATION: XR HAND, LEFT CLINICAL INFORMATION: Pain COMPARISON: 12/14/2020 TECHNIQUE: PA, lateral, and oblique views of the left hand. FINDINGS: There is a new indeterminate ossific density adjacent to the scaphoid head which may reflect degenerative change, chondrocalcinosis, or a age-indeterminate avulsion injury. Remaining osseous structures are unremarkable. XR/XR hand LT min 3V IMPRESSION: There is a new indeterminate ossific density adjacent to the scaphoid head which may reflect degenerative change, chondrocalcinosis, or a age-indeterminate avulsion injury. Correlation with point tenderness is recommended.consider CT or MR for further evaluation as clinically warranted
== END 2024-01-13 13:40 | disposition home or self-care (01) ==
LOC: HO.MAMMO 13:39
PROVIDERS: PCP Student in an Organized Health Care Education/Training Program; Visit Provider Student in an Organized Health Care Education/Training Program
DX: N64.4 Mastodynia (principal); M79.645 Pain in left finger(s)
CPT/HCPCS: 73130; 76642; 77062; 77066

== ENCOUNTER → 2024-01-13 13:42 | Outpatient (BNV) | payer OTHER, SELFPAY | PROVIDERS: PCP Student in an Organized Health Care Education/Training Program; Visit Provider Radiology Diagnostic Radiology | DX: N64.4 Mastodynia (principal) | CPT/HCPCS: 76642; 77062; 77066 ==

== ENCOUNTER → 2024-01-18 09:38 | Outpatient (BNVA) | payer OTHER, SELFPAY | PROVIDERS: PCP Student in an Organized Health Care Education/Training Program; Visit Provider Urology ==

== ENCOUNTER 2024-02-01 08:09 | Outpatient (REF) | payer OTHER, SELFPAY ==
[2024-02-01 11:38] LABS: Thyroid Stimulating Hormone 2.36 uIU/mL (0.32-4.0)
== END 2024-02-01 08:10 | disposition home or self-care (01) ==
LOC: HO.LAB 08:09
PROVIDERS: PCP Student in an Organized Health Care Education/Training Program; Visit Provider Internal Medicine Endocrinology, Diabetes & Metabolism
DX: C73 Malignant neoplasm of thyroid gland (principal)
CPT/HCPCS: 36415; 51798; 81003; 84439; 84443

== ENCOUNTER 2024-02-01 08:16 | Outpatient (AMB) | payer OTHER, SELFPAY ==
--- NOTE | 2024-02-01 08:31 | A.OFFVIS_ITS ---
Intake Intake Visit Reasons: 3m follow up/IC patient Intake Note: Patient presents today for a follow-up on IC Meds- Pyridium, Oxybutinin Allergies to Antibiotic- Penicillins Blood Thinner- None Post Void Residual: 0ml [employer] Teacher Required: Yes Accompanied by: Self / Same As Patient Allergies Penicillins [PENICILLINS] Allergy (Unknown, Verified 02/01/24 08:33) HIVES Medication List - Last Reconciled 02/01/24 by Analy Campos MD acetaminophen (Tylenol) 650 mg (2 x 325 mg) PO Q6H PRN albuterol sulfate 90 mcg/actuation (ProAir HFA) 2 puffs inhalation Q4-6H PRN amitriptyline 10 mg PO BEDTIME 10 days blood sugar diagnostic (FreeStyle Lite Strips) Test blood glucose twice per day blood-glucose meter (FreeStyle Lite Meter kit) As directed empagliflozin (Jardiance) 25 mg PO QAM flash glucose scanning reader (Neon LabsStyle Emile 2 [place]) As directed hydrochlorothiazide 12.5 mg PO DAILY hydrocortisone 2.5% (Proctosol HC) 1 appl [place] BID-QID PRN ibuprofen 600 mg PO Q8H PRN levothyroxine 100 mcg PO DAILY linaclotide (Linzess) 290 mcg PO QAM losartan 50 mg PO BID metformin ER 500 mg PO BID trishpzag-gkyxi-rus 118-10-40.8-36 mg (Uribel) 1 tab PO TID 90 days methylcellulose (laxative) (Citrucel) 500 mg PO DAILY metoprolol succinate ER 50 mg PO DAILY nitrofurantoin macrocrystal 50 mg orally use as directed post intercourse; must administer with a meal/food oxybutynin chloride ER 10 mg PO DAILY pantoprazole 40 mg PO DAILY phenazopyridine (Pyridium) 200 mg PO TID phenazopyridine (Pyridium) 200 mg PO Q8H polyethylene glycol 3350 (Gavilax) grams PO rosuvastatin 40 mg PO DAILY rosuvastatin 10 mg PO BEDTIME sennosides (Natural Senna Laxative) 17.2 mg (2 x 8.6 mg) PO QDAY HPI HPI Comments History of Present Illness Details 02/01/24-Sapna is a 62-year-old female w ho presents today to the office for a follow-up. Sapna is followed due to bladder pain syndrome. She has been treated with bladder installations heparin lidocaine and Solu-Medrol. The patient is a Kinyarwanda speaking female. Certified pharmacist in charge owner was present during the visit. PMH includes --hypertension, diabetes, h/o thyroid cancer, followed by endocrine. I had previously discussed use of pyridium prior to intercourse and low dose macrobid post intercourse, tylenol and/or OTC NSAID prn. She was prescribed uribel. The patient states the her bladder pain is much be tter, but not gone. Review of chart: 03/17/23--Out patient cystoscopy bladder b iopsy-- bladder findings, erythematous flattened changes, pathology chronic cystitis with muscularis propria present. 04/23/22-- urine cytology- negative for ma lignant cells 02/01/2024: Plan:low dose macrobid post i ntercourse, tylenol and/or OTC NSAID prn Cont Uribel TID, continue oxybutynin 10 mg qhs Follow-up in 6 months. PFSH Medical History Palpitations Non-cardiac chest pain Pelvic pain Leg pain Bladder pain Lower abdominal pain Gross hematuria Toe pain Right knee pain Effusion, right knee Dysuria Pelvic pain in female Hematuria Mass of spine Hematuria Type 2 diabetes mellitus with polyneuropathy DM2 (diabetes mellitus, type 2) Nail deformity Paronychia Failure of spinal cord stimulator Thymoma Pulmonary nodules Thyroid cancer Blood in urine Constipation by delayed colonic transit Tubular adenoma of colon Gastritis Hypertension Dyslipidemia Post-surgical hypothyroidism Primary thyroid cancer Vitamin D deficiency Surgical History History of thymectomy History of back surgery Hx of colonoscopy Hx of thyroidectomy Hx of hernia repair Hx of section Hx of hysterectomy History of esophagogastroduodenoscopy (EGD) Family History Father Stroke Heart attack Mother Diabetes mellitus Family/Other Family history of cancer Sister Stomach cancer Family/Other Thyroid cancer Social History Household Members: Spouse, Children and Other Alcohol intake: unknown Patient Tobacco Use Status: Former Tobacco user Tobacco use type: Cigarette Second Hand Smoke Exposure: No Sexual orientation: Straight/Heterosexual Gender identity: Female Review of Systems Const All systems reviewed & are unremarkable except as noted in HPI and below Reports no additional complaints Eyes Reports no additional complaints ENT Reports no additional complaints Card Reports no additional complaints Resp Reports no additional complaints GI Reports no additional complaints Reports as per HPI Musc Reports no additional complaints Skin/Breast Reports system reviewed and no additional complaints, except as documented Neuro Reports no additional complaints Psych Reports no additional complaints Endo Reports no additional complaints Je/Lymph Reports no additional complaints Aller/Immun Reports no additional complaints Office Procedures Post Void Residual Post Residual Void Post Void Residual (PVR): 0 00503-Fyyn Void Residual by ultrasound Results AMB Urinalysis, Automated UA Leukoctes 0 Gigi/uL Last Edit by Miguelina Crandall CMA on 02/01/24 08 :34 UA Nitrite Negative Last Edit by Miguelina Crandall CMA on 02/01/24 08: 34 UA Urobilinogen 0.2 mg/dL Last Edit by Miguelina Crandall CMA on 4 08:34 UA Protein 0 mg/dL Last Edit by Miguelina Crandall CMA on 02/01/24 08:34 UA pH 6.0 Last Edit by Miguelina Crandall CMA on 02/01/24 08:34 UA Blood 10 Scott/uL Last Edit by Miguelina Crandall CMA on 02/01/24 08:34 UA Specific [place] 1.010 Last Edit by Miguelina Crandall CMA on 08:34 UA Ketone Negative Last Edit by Miguelina Crandall CMA on 02/01/24 08:3 4 UA Bilirubin 0 mg/dL Last Edit by Miguelina Crandall CMA on 02/01/24 08: 34 UA Glucose 0 mg/dL Last Edit by Miguelina Crandall CMA on 02/01/24 08:34 Results Reviewed Results Reviewed: Laboratory Last Values Urine pH (Auto) 6.0 02/01/24 08:33 Specific [place] (Auto) 1.010 02/01/24 08:33 Urine Protein (Auto) 0 mg/dL 02/01/24 08:33 Glucose (UA)(Auto) 0 mg/dL 02/01/24 08:33 Urine Ketones (Auto) Negative 02/01/24 08:33 Urine Blood (Auto) 10 Scott/uL 02/01/24 08:33 Urine Nitrite (Auto) Negative 02/01/24 08:33 Urine Bilirubin (Auto) 0 mg/dL 02/01/24 08:33 Urine Urobilinogen (Auto) 0.2 mg/dL 02/01/24 08:33 Leukocyte Esterase (Auto) 0 Gigi/uL 02/01/24 08:33 Assessment & Plan Assessment & Plan (1) Chronic cystitis: Code(s): N30.20 - Other chronic cystitis without hematuria (2) Dysuria: Code(s): R30.0 - Dysuria (3) Bladder pain: Code(s): R39.89 - Other symptoms and signs involving the genitourinary system (4) Pelvic pain: Code(s): R10.2 - Pelvic and perineal pain (5) Dyspareunia in female: Code(s): N94.10 - Unspecified dyspareunia Plan Plan:low dose macrobid post intercourse, tylenol and/or OTC NSAID prn Cont Uribel TID, continue oxybutynin 10 mg qhs Follow-up in 6 months. Orders: Orders AMB Post Void Residual by ultrasound 02/01/24 R33.9 - Retention of urine, unspecified AMB Urinalysis Automated 02/01/24 R33.9 - Retention of urine, unspecified Medications: Refilled oxybutynin chloride ER 10 mg PO DAILY 90 tabs 3RF ishan-phsal-hyo 118-10-40.8-36 mg (Uribel) administer with plenty of fluids 1 tab PO TID 180 caps 1RF 90 days Discontinued levothyroxine Discontinued Reason: Doctor's Order 100 mcg PO DAILY 30 tabs 5RF Patient Instructions: The patient had an opportunity to ask questions regarding treatment plan. All q uestions were answered. Imaging, Laboratory studies and physical exam results were discussed and reviewed in detail. No major barriers to understanding were identified. The patient expressed understanding and agreement with the above treatment plan. The patient is aware they should contact our office by phone for worsening of their current condition or the appearance of new symptoms. Compliance is encouraged with any medications and followup testing that is ordered. It is a privilege to be allowed the opportunity to participate in the urologic care of your patient. If you have any questions or concerns regarding treatment for the above conditions please do not hesitate to contact me. The office telephone contact is [phone]. This note is constructed in part using voice recognition software. While every effort has been made to ensure accuracy specialist physician errors may have been included. Yours sincerely, Analy Campos MD Coding Level of Care Code Est Pt Level 4 (70957) Diagnoses Chronic cystitis N30.20 Dysuria R30.0 Bladder pain R39.89 Pelvic pain R10.2 Dyspareunia in female N94.10 CPT Codes Post Residual Void - PVR CPT Code: 57349-Gavb Void Residual by ultrasound ([id number])
== END 2024-02-01 09:22 | disposition home or self-care (01) ==
LOC: HO.HUSH 08:16
PROVIDERS: PCP Registered Nurse; Visit Provider Urology
DX: N30.20 Other chronic cystitis without hematuria (principal); R30.0 Dysuria; R39.89 Other symptoms and signs involving the genitourinary system; R10.2 Pelvic and perineal pain; N94.10 Unspecified dyspareunia
CPT/HCPCS: 99214

== ENCOUNTER 2024-02-23 14:06 | Outpatient (REF) | payer OTHER, SELFPAY ==
--- NOTE | ~2024-02-23 | XR_ITS ---
EXAMINATION: XR CHEST CLINICAL INFORMATION: Cough, wheezing, shortness of breath COMPARISON: 01/11/2023 TECHNIQUE: 2 views of the chest were obtained. FINDINGS: Lungs are well-inflated and clear. Trachea is midline in position. No interstitial disease, consolidation or mass. No pleural effusion or pneumothorax. Cardiac silhouette and pulmonary vessels are normal in size. The mediastinum and inez have normal contour. Skeletal structures are unremarkable. The electrodes project over the lumbar spinal canal. XR/XR chest 2V IMPRESSION: Lungs have a normal appearance. No acute cardiopulmonary abnormality.
== END 2024-02-23 14:07 | disposition home or self-care (01) ==
LOC: HO.HHCX 14:06
PROVIDERS: Visit Provider Internal Medicine Geriatric Medicine
DX: R07.9 Chest pain, unspecified (principal); R05.1 Acute cough; J30.89 Other allergic rhinitis; J45.20 Mild intermittent asthma, uncomplicated
CPT/HCPCS: 71046

== ENCOUNTER 2024-03-01 07:42 | Outpatient (REF) | payer OTHER, SELFPAY ==
--- NOTE | ~2024-03-01 | FL_ITS ---
EXAMINATION: XR FLUOROSCOPY UPPER GI WITH AIR CLINICAL INFORMATION: Dysphagia. Reflux COMPARISON: None TECHNIQUE: Fluoroscopic air contrast upper GI examination was performed utilizing standard techniques with thin and thick barium and effervescent granules. Numerous spot images were obtained. FINDINGS: Lateral cine images of the oropharynx and hypopharynx demonstrate normal swallow mechanism with normal epiglottic inversion and soft palate elevation. No tracheal penetration, glottic or subglottic aspiration identified. No nasopharyngeal reflux present. Hypopharyngeal structures appear normal without evidence of mass or diverticulum. There was no significant cricopharyngeal achalasia. Dual and single contrast images of the esophagus demonstrate oblique patulous caliber. There is normal contour, with mildly subtle irregular granular mucosal markings in the mid to upper one third of the esophagus, possibly esophagitis versus artifact. No evidence of stricture, mass, or large ulcerations identified. Esophageal peristalsis is moderately disorganized. No evidence of significant hiatus hernia identified. No significant gastroesophageal reflux was seen during the course of the examination and on reflux views. Dual contrast and single contrast images of the stomach demonstrated a normal contour. Suboptimal coating noted of the lesser curvature/superior wall. The gastric rugal folds appear mildly thickened. There are multiple tiny foci of contrast pooling in the fundus of the stomach that may represent small superficial aphthous ulcers. No masses are present. Contrast freely passed into the gastric antrum and duodenal bulb without delay. Single and air-contrast images of the duodenal bulb demonstrate no abnormality. The duodenal sweep has a normal appearance, course, and mucosal fold appearance. No malrotation. The imaged proximal jejunum has a normal fold pattern and caliber. Lumbar spinal stimulator device incidentally noted in place, with tip terminating in the right epidural space at the inferior endplate of L1, spanning to the inferior endplate of L3. Atherosclerosis of the aortic arch noted. FLUOROSCOPY TIME: 3 minutes 50 sec Number of Spot Images: 11 Number of Cine: 12 DOSE AREA PRODUCT: 1868 uGy-m2 (microgray-meter squared) FL/FL barium swallow IMPRESSION: 1. Esophageal dysmotility with somewhat patulous caliber. Subtle irregularity of the mucosal markings in the mid to upper esophagus could be artifactual versus mild esophagitis. 2. Mildly thickened gastric rugal folds. In addition, there are multiple tiny foci of contrast pooling in the fundus of the stomach. These findings are suggestive of mild erosive gastritis. Recommend correlation EGD. 3. No definite reflux noted during the examination. 4. No definite hiatus hernia of significance. This procedure was performed by Emile Grover PA-C, and supervised by Dr. Melchor
== END 2024-03-01 07:43 | disposition home or self-care (01) ==
LOC: HO.XRAY 07:42
PROVIDERS: PCP Student in an Organized Health Care Education/Training Program; Visit Provider Nurse Practitioner Family
DX: R13.10 Dysphagia, unspecified (principal)
CPT/HCPCS: 74220

== ENCOUNTER → 2024-03-01 07:43 | Outpatient (BNV) | payer OTHER, SELFPAY | PROVIDERS: PCP Student in an Organized Health Care Education/Training Program; Visit Provider Physician Assistant Surgical | DX: R13.10 Dysphagia, unspecified (principal) | CPT/HCPCS: 74246 ==

== ENCOUNTER 2024-03-01 10:50 | Outpatient (AMB) | payer OTHER, SELFPAY ==
--- NOTE | 2024-03-01 10:52 | A.OFFVIS_ITS ---
Intake Vital Signs 03/01/24 10:54 Height 5 ft 5 in Weight 145 lb 8.081 oz BMI 24.2 BP 138/69 Blood Pressure Location Lt brachial Position Sitting Pulse 107 H Intake Visit Reasons: 2 month follow up Intake Note: Sapna presents in the office as a 2 month follow up. CC: was given benzonatate and prednisone for a trial for her ashthma. She has pains in the right side of her stomach. She states they did an exam but the pains on the right are severe. 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 Had ultrasound done by her reinforced ironworker for thyroid evaluation did not show any abnormal findings. I will send patient for barium swallow to rule out stricture, Schatzki, achalasia, esophageal dysmotility. Referral to ENT sent. Patient denies any sore throat or cold symptoms. Encourage patient to drink water with lemon or suck on lemon candy to improve mouth dryness. Patient will continue taking Linzess. She was encouraged to increase fluid intake and activity to promote better bowel motility. Pain in her right lower quadrant most likely is related to gas, possibility of gas trapping pain. Negative exam. Discussed with patient will FODMAP diet. List of food recommended as well as list of food to avoid given to patient. I will see patient in 2 months, sooner on as needed basis. Patient is agreeable to this plan and verbalizes understanding of instructions. She was given the opportunity to ask questions and all questions answered. ? Thank you for allowing me to participate in her care Orders Orders FL barium swallow Today R13.10 Referrals Ear/Nose/Throat Referral R13.10 TODAY'S VISIT Patient is here today for follow-up. Patient reports that she has been suffering with right lower quadrant pain. Patient states that the pain is worse than it was before. Patient has been having this pain for several years now. Patient is taking Linzess, however she reports that is causing a lot of diarrhea. Patient denies melena, hematochezia, unintentional weight loss or ri bbon like stools. Patient is due to go for colonoscopy. Trouble swallowing last visit patient was sent for barium swallow. Barium swallow was done today, no report available yet. Patient reports occasional dyspepsia without dysphagia or odynophagia. Patient reports that the pain is there all the time and it does not matter if she eats or not. Pain is there also when he presses in her lower quadrant. [facility] Medical History Palpitations Non-cardiac chest pain Pelvic pain Leg pain Bladder pain Lower abdominal pain Gross hematuria Toe pain Right knee pain Effusion, right knee Dysuria Pelvic pain in female Hematuria Mass of spine Hematuria Type 2 diabetes mellitus with polyneuropathy DM2 (diabetes mellitus, type 2) Nail deformity Paronychia Failure of spinal cord stimulator Thymoma Pulmonary nodules Thyroid cancer Blood in urine Constipation by delayed colonic transit Tubular adenoma of colon Gastritis Hypertension Dyslipidemia Post-surgical hypothyroidism Primary thyroid cancer Vitamin D deficiency Surgical History History of thymectomy History of back surgery Hx of colonoscopy Hx of thyroidectomy Hx of hernia repair Hx of section Hx of hysterectomy History of esophagogastroduodenoscopy (EGD) Family History Father Stroke Heart attack Mother Diabetes mellitus Family/Other Family history of cancer Sister Stomach cancer Family/Other Thyroid cancer Social History Household Members: Spouse, Children and Other Alcohol intake: unknown Patient Tobacco Use Status: Former Tobacco user Tobacco use type: Cigarette Second Hand Smoke Exposure: No Sexual orientation: Straight/Heterosexual Gender identity: Female Review of Systems Const Denies weight gain and Denies weight loss ENT Reports no additional complaints, Denies dysphagia and Denies odynophagia Card Reports no additional complaints Resp Reports no additional complaints GI Reports abdominal pain (RLQ), Denies belching, Denies melena, Denies bloating, Reports constipation, Denies dysphagia, Denies excessive flatus, Denies dyspepsia, Denies heartburn, Denies diarrhea, Reports loose stools, Denies nausea, Denies odynophagia and Denies vomiting Reports no additional complaints Musc Reports no additional complaints Neuro Reports no additional complaints Psych Reports no additional complaints Endo Reports no additional complaints Physical Exam Vital Signs: Last Vital Signs Pulse 107 H 03/01/24 10:54 BP 138/69 03/01/24 10:54 BMI result Body Mass Index 24.2 Const General: healthy appearing, no acute distress and well developed Nutritional Appearance: well nourished Orientation/consciousness: patient oriented x3 Resp Effort & Inspection: normal respiratory effort, able to speak in complete sentences, no tracheal deviation and symmetric chest movement Auscultation: clear to auscultation bilaterally Cardio Rate: regular rate GI Inspection: Yes normal to inspection and No distended Palpation (GI): Soft to palpation, not firm, Tenderness to palpation present (GI) (RLQ) and No hepatosplenomegaly present Auscultation: Hyperactive bowel sounds present General: Yes no CVA tenderness Back/Spine/Pelvis Back: no CVA tenderness Skin General skin exam: elasticity normal, turgor normal and dry skin Neuro General: patient oriented x3 Psych Appearance: grossly normal Mental Status: mental status grossly normal Assessment & Plan Assessment & Plan (1) Constipation by delayed colonic transit: Code(s): K59.01 - Slow transit constipation (2) Lower abdominal pain: Code(s): R10.30 - Lower abdominal pain, unspecified (3) RLQ abdominal pain: Code(s): R10.31 - Right lower quadrant pain (4) Mesenteric adenitis: Code(s): I88.0 - Nonspecific mesenteric lymphadenitis Plan Patient no longer feels like she has dysphagia. Reports dyspepsia occasionally depending on what she eats. Patient does have right lower quadrant pain. Mesenteric adenitis seen on a CT scan last year. Patient's symptoms improved for sometime and now she is complaining of right lower quadrant discomfort again. Hyperactive bowel sounds, mild tenderness to right lower quadrant. Will send patient for CT scan. Patient can stop taking Linzess if causing her diarrhea. Start Citrucel and senna. Patient will return in 2 months to discuss going for colonoscopy. Patient is agreeable to this plan and verbalizes understanding of instructions. He was given the opportunity to ask questions and all questions answered. Thank you for allowing me to participate in her care Orders: Orders Blood Urea Nitrogen Today R10.11 - Right upper quadrant pain CT abdomen pelvis w IV con Today I88.0 - Nonspecific mesenteric lymphadenitis, R10.31 - Right lower quadrant pain, R10.9 - Unspecified abdominal pain Creatinine Today R10.11 - Right upper quadrant pain Medications: Refilled methylcellulose (laxative) (Citrucel) take it with full glass of water 500 mg PO DAILY 90 tabs 2RF K59.00 - Constipation, unspecified sennosides (Natural Senna Laxative) 17.2 mg (2 x 8.6 mg) PO QDAY 60 tabs 3RF Discontinued linaclotide (Linzess) Discontinued Reason: Doctor's Order 290 mcg PO QAM 30 caps 4RF K59.00 - Constipation, unspecified Coding Level of Care Code Est Pt Level 4 (13872) Diagnoses Constipation by delayed colonic transit K59.01 Lower abdominal pain R10.30 RLQ abdominal pain R10.31 Mesenteric adenitis I88.0 Time Spent (min) 40 Comment 25 minutes spent with patient and additional 15 minutes spent reviewing her records
[2024-03-01 10:54] VITALS: BP 138/69; PULSE 107; BMI 24.2
== END 2024-03-01 12:04 | disposition home or self-care (01) ==
PROVIDERS: PCP Student in an Organized Health Care Education/Training Program; Visit Provider Nurse Practitioner Family
DX: K59.01 Slow transit constipation (principal); R10.30 Lower abdominal pain, unspecified; R10.31 Right lower quadrant pain; I88.0 Nonspecific mesenteric lymphadenitis
CPT/HCPCS: 99214

== ENCOUNTER 2024-03-02 08:20 | Outpatient (AMB) | payer OTHER, SELFPAY ==
[2024-03-02 08:40] VITALS: BMI 24.1
--- NOTE | 2024-03-02 08:40 | A.OFFVIS_ITS ---
Intake Vital Signs 03/02/24 08:40 Height 5 ft 5 in Weight 145 lb BMI 24.1 Intake Visit Reasons: New prob/ lt thumb pain Intake Note: Sapna 63 yr old female presents today for a new problem visit for her left hand s/p dequervain injection from 05/15/[address] Pang. States she is having pain in her thumb and feels like it locks at times an pain is mainly on her MCP and IP. Allergies Penicillins [PENICILLINS] Allergy (Unknown, Verified 03/02/24 08:50) HIVES HPI New prob/ lt thumb pain HPI Details Sapna is a 63 year old right hand dominant Kazakh speaking woman who presents with complaints of left thumb pain. She has been seen in the past for left De Quervain's and received a steroid injection on 05/15/21, as well as a Comfort cool splint. She complains that occasionally her left thumb will lock in extension, and will be painful when that happens. She says this happens perhaps once a week. She denies any known injury. She denies any kind of popping or catching sensation in the IP joint with flexion extension. She says she manages her pain with Ibuprofen [facility] Medical History Palpitations Non-cardiac chest pain Pelvic pain Leg pain Bladder pain Lower abdominal pain Gross hematuria Toe pain Right knee pain Effusion, right knee Dysuria Pelvic pain in female Hematuria Mass of spine Hematuria Type 2 diabetes mellitus with polyneuropathy DM2 (diabetes mellitus, type 2) Nail deformity Paronychia Failure of spinal cord stimulator Thymoma Pulmonary nodules Thyroid cancer Blood in urine Constipation by delayed colonic transit Tubular adenoma of colon Gastritis Hypertension Dyslipidemia Post-surgical hypothyroidism Primary thyroid cancer Vitamin D deficiency Surgical History History of thymectomy History of back surgery Hx of colonoscopy Hx of thyroidectomy Hx of hernia repair Hx of section Hx of hysterectomy History of esophagogastroduodenoscopy (EGD) Family History Father Stroke Heart attack Mother Diabetes mellitus Family/Other Family history of cancer Sister Stomach cancer Family/Other Thyroid cancer Social History Household Members: Spouse, Children and Other Alcohol intake: unknown Patient Tobacco Use Status: Former Tobacco user Tobacco use type: Cigarette Second Hand Smoke Exposure: No Sexual orientation: Straight/Heterosexual Gender identity: Female Review of Systems Const All systems reviewed & are unremarkable except as noted in HPI and below Physical Exam Vital Signs: BMI result Body Mass Index 24.1 Const General: cooperative, healthy appearing and no acute distress Orientation/consciousness: patient oriented x3 HEENT Head: Yes normocephalic and Yes atraumatic Eyes EOM: EOMs intact bilaterally Resp Effort & Inspection: normal respiratory effort and able to speak in complete sentences Cardio Jugular venous distension: no JVD Skin General skin exam: turgor normal Rashes: no rashes Neuro General: patient oriented x3 Extrem Other: Evaluation of Left Upper Extremity: The patient is alert, oriented, and in no acute distress Neuro: Median, Ulnar, Radial nerves motor and sensory intact and sensation is normal to the tips of all digits Vascular: Cap refill brisk ROM: She can make a fist and extend all her digits Full active thumb ROM She can actively touch her thumb to the base of her small finger No locking or catching with repetitive full flexion and extension of the thumb in clinic today. No tenderness over the A1 montse. Skin: No lacerations or abrasions. General: No Ecchymosis. No Erythema or evidence of infection. No basal joint tenderness No tenderness over the 1st dorsal compartment. No locking of the tendons of the 1st dorsal compartment with full active thumb range of motion. Good stability of the IP joint MCP joint and basal joint of the thumb. No tenderness noted anywhere in the thumb or hand. No swelling or redness Radiographs: 3 views of the left hand from 01/13/24 were reviewed by me today in clinic. They show no fractures, dislocations, or arthritic changes. Psych Appearance: grossly normal Affect: normal affect Attitude: cooperative Assessment & Plan Assessment & Plan (1) Thumb locking: Code(s): M24.849 - Other specific joint derangements of unspecified hand, not elsewhere classified Plan Assessment & Plan: 1. Left thumb episodes of locking in extension Etiology unclear Unable to reproduce this in clinic today. Patient reports this occurs ~once weekly Radiographs & physical exam unremarkable Exam not consistent with trigger thumb or triggering through 1st dorsal compartment If her symptoms persist or worsen she can follow up Otherwise follow up prn 2. Left De Quervains, S/P injection Date of Injection 05/15/21 Resolved Scribed for Georgiana Pang MD by Bob Dickson, clinical laboratory medical director, on 03/02/24 at 8:55 AM, EST. Coding Level of Care Code Est Pt Level 3 (01561) Diagnoses Thumb locking M24.849
== END 2024-03-02 09:01 | disposition home or self-care (01) ==
PROVIDERS: PCP Student in an Organized Health Care Education/Training Program; Visit Provider Orthopaedic Surgery
DX: M24.842 Other specific joint derangements of left hand, not elsewhere classified (principal)
CPT/HCPCS: 99213

== ENCOUNTER → 2024-03-02 08:20 | Outpatient (BNVA) | payer OTHER, SELFPAY | PROVIDERS: PCP Student in an Organized Health Care Education/Training Program; Visit Provider Orthopaedic Surgery ==

== ENCOUNTER 2024-03-07 12:39 | Outpatient (REF) | payer OTHER, SELFPAY ==
--- NOTE | ~2024-03-07 | CT_ITS ---
EXAMINATION: CT SOFT TISSUE NECK WITH CONTRAST CLINICAL INFORMATION: Dysphagia COMPARISON: None. TECHNIQUE: Following the administration of 60 mL of Omnipaque 350 intravenous contrast, helical imaging was performed in the axial plane with generation of coronal and sagittal reformatted images. This CT examination was performed using dose optimization techniques as appropriate, variously including the following: *Automated exposure control. *Adjustment of mA and/or kV according to patient size (this includes techniques or standardized protocols for targeted exams where dose is matched to indication/reason for exam; i.e. extremities or head). *Use of iterative reconstruction technique. DLP: 260 mGy-cm. FINDINGS: The fat planes of the skull base and soft tissues of the nasopharynx are unremarkable. The paranasal sinuses and mastoid air cells are well aerated. The temporomandibular joints are normal. Torus palatini and small left torus maxillari. The oral cavity is unremarkable. Punctate calcified bilateral palatine tonsilloliths. Asymmetric soft tissue along the right base of tongue projecting into the upper vallecula and contacting the free edge of the epiglottis may reflect asymmetric tonsillar tissue though can be correlated with direct inspection. Asymmetric prominence of the right laryngeal ventricle can be correlated for right vocal cord paresis/paralysis. The aryepiglottic folds are opposed posteriorly with effacement of the left pyriform sinus. The subglottic airway is normal.. The left submandibular gland is small relative to the right. The parotid glands are normal. Thyroidectomy. No pathologic size criteria or morphologically suspicious cervical chain lymph nodes. The partially visualized lung apices are clear. Mild to moderate calcific plaque of the aortic arch and great vessel origins. Eccentric fibrofatty plaque mildly narrows the proximal brachiocephalic trunk. Otherwise grossly normal opacification of the major neck vessels. Minimal cervical spondylosis. Asymmetric ex vacuo dilatation of the right temporal horn with otherwise unremarkable imaged intracranial contents. Mild patchy paranasal sinus mucosal disease with some aerated contents in the right maxillary sinus. Small right mastoid effusion. Lens replacements. CT/CT soft tissue neck w IV con IMPRESSION: 1. Morphologic findings discussed above that can be correlated for right vocal cord paresis/paralysis. No aerodigestive tract mass. 2. No pathologic size criteria or morphologically suspicious cervical chain lymph nodes.
[2024-03-07 13:24] LABS: Blood Urea Nitrogen 18 mg/dL (9-16); Estimated Glomerular Filt Rate > 60
[2024-03-07] MEDS: iohexoL 350 MG/ML 100 ML INFUS..BTL 60 ML IV (14:40)
== END 2024-03-07 12:40 | disposition home or self-care (01) ==
LOC: HO.CT 12:39
PROVIDERS: Nurse Practitioner Family; PCP Student in an Organized Health Care Education/Training Program; Visit Provider Student in an Organized Health Care Education/Training Program
DX: R13.12 Dysphagia, oropharyngeal phase (principal); R10.11 Right upper quadrant pain
CPT/HCPCS: 36415; 70491; 82565; 84520; Q9967

== ENCOUNTER 2024-03-09 10:28 | Outpatient (REF) | payer OTHER, SELFPAY ==
--- NOTE | ~2024-03-09 | CT_ITS ---
EXAMINATION: CT ABDOMEN AND PELVIS WITH CONTRAST CLINICAL INFORMATION: Abdominal pain COMPARISON: CT scan of abdomen and pelvis on 11/15/2023 TECHNIQUE: Multidetector volumetric images were obtained from the superior aspect of the liver through the pubic symphysis following administration 85 mL of Omnipaque 350 intravenous contrast. Sagittal and coronal reformatted images were obtained on the technologist's workstation. Oral contrast: No This CT examination was performed using dose optimization techniques as appropriate, variously including the following: *Automated exposure control *Adjustment of mA and/or kV according to patient size (this includes techniques or standardized protocols for targeted exams where dose is matched to indication/reason for exam; i.e. extremities or head) *Use of iterative reconstruction technique DLP: 288 mGy-cm FINDINGS: LUNG BASES: A stable 0.5 cm calcified granuloma is seen at posterior pleural border of right lower lobe posterior basal segment. LIVER: No focal lesion is seen in the liver. GALLBLADDER AND BILIARY TREE: Gallbladder appears unremarkable without calcified stones. Common bile duct is not dilated. SPLEEN: The spleen is normal in size without focal lesion. PANCREAS: The pancreas appears unremarkable. ADRENAL GLANDS: Adrenal glands are normal in size without focal lesion bilaterally. KIDNEYS: Bilateral kidneys are normal in size without focal lesion. 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 BOWELS: There is normal filling of stomach and small bowel loops with oral contrast down to proximal pelvic ileum. RETROPERITONEUM: No abnormally enlarged retroperitoneal lymph nodes, mass or hematoma could be seen. BLOOD VESSELS: Abdominal aorta is normal in size with scattered atherosclerotic calcifications and smoothly patent. ABDOMINAL WALL: Abdominal subcutaneous tissue and muscle are intact. No evidence of ventral hernia. PERITONEUM: There was no ascites. There were no abdominal peritoneal inflammatory changes seen. No free peritoneal air was seen. No abnormally enlarged mesenteric lymph nodes are found. BONES: Mild posterior L4-L5 and L5-S1 disc protrusions, advanced L5-S1 degenerative lumbar disc disease are seen. No fracture or dislocation. No focal bone lesion diagnostic of metastatic disease could be seen in the lumbar region. EXAMINATION: CT pelvis. FINDINGS: URINARY BLADDER: Urinary bladder fills normally with urine. BOWELS: There is no abnormal dilatation of the large and small bowel loops. Normal caliber appendix is seen projecting medial and inferior to the cecum with intraluminal high density material, most prominent in the bulbous distal end. Inspissated barium is again visualized in the sigmoid colon diverticula. GENITAL ORGANS: No adnexal mass lesion could be seen. The uterus is surgically absent. LYMPH NODES: No abnormally enlarged iliac or inguinal lymph nodes are seen. PERITONEUM: No inflammatory changes, ascites or free peritoneal air are found in the pelvis. BONES: No fracture or dislocation. No focal bone lesion diagnostic of metastatic disease could be seen in the pelvis. Right posterior gluteal nerve stimulator device is seen at L5-S1 junction, with electrode entering the spinal canal at the same level ending at L1. CT/CT abdomen pelvis w IV con IMPRESSION: 1. Interval resolution of proximal jejunitis. No evidence of acute intra-abdominal or pelvic process. 2. Unchanged duplicated right renal collecting systems. 3. Unchanged, Status post hysterectomy. 4. No evidence of bowel obstruction or inflammatory changes. Unchanged sigmoid colon diverticulosis. 5. Interval appearance of dense content in the appendicular lumen, compatible with inspissated barium or appendicolith. 6. No interval change in position of right gluteal nerve stimulator and stimulator wire.
[2024-03-09] MEDS: Barium Sulfate Oral (Berry) 450 ML ORAL.SUSP 900 ML PO (13:10)
[2024-03-09] MEDS: iohexoL 350 MG/ML 75 ML INFUS..BTL 85 ML IV (13:10)
== END 2024-03-09 10:29 | disposition home or self-care (01) ==
LOC: HO.CT 10:28
PROVIDERS: PCP Student in an Organized Health Care Education/Training Program; Visit Provider Nurse Practitioner Family
DX: I88.0 Nonspecific mesenteric lymphadenitis (principal); R10.31 Right lower quadrant pain
CPT/HCPCS: 74177; Q9967

== ENCOUNTER 2024-03-24 14:23 | Outpatient (REF) | payer OTHER, SELFPAY ==
--- NOTE | 2024-03-24 14:29 | EMG_ITS ---
Chief complaint: Left Wrist and forearm pain/swelling, thumb pain, Status post left Carpal Tunnel Syndrome surgery many years ago in [facility] Reason for referral: Evaluate for ulnar neuropathy Referred by: Michelle Leach NP Procedure done: Left upper extremity NCS/EMG Precautions and/or limitations: None The limb temperature was monitored continuously and remained between 32-36 degrees C during the performance of the NCS. Nerve Conduction Studies Anti Sensory Summary Table ?Stim Site NR Onset (ms) Norm Onset (ms) Peak (ms) Norm Peak (ms) O-P Amp (?V) Norm O-P Amp Site1 Site2 Delta-0 (ms) Dist (cm) Callum (m/s) Norm Callum (m/s) Left Median Anti Sensory (2nd Digit) Wrist ? 2.5 3.1 <3.6 30.1 >10 Wrist 2nd Digit 2.5 14.0 56 Left Radial Anti Sensory (Thumb) Forearm ? 1.8 2.3 <3.1 17.8 Forearm Thumb 1.8 0.0 Left Ulnar Anti Sensory (5th Digit) Wrist ? 2.3 2.9 <3.7 24.5 >15.0 Wrist 5th Digit 2.3 14.0 61 Motor Summary Table ?Stim Site NR Onset (ms) Norm Onset (ms) O-P Amp (mV) Norm O-P Amp iAmp (mV) Amp (1st) (%) Site1 Site2 Delta-0 (ms) Dist (cm) Callum (m/s) Norm Callum (m/s) Left Median Motor (Abd Poll Brev) Wrist ? 3.8 <3.9 7.4 >4.5 8.6 100.0 Elbow Wrist 4.0 22.0 55 >45 Elbow ? 7.8 6.2 7.2 83.8 Left Ulnar Motor (Abd Dig Minimi) Wrist ? 2.5 <3.0 5.8 >5 7.1 100.0 B Elbow Wrist 3.1 19.0 61 >45 B Elbow ? 5.6 4.2 6.0 72.4 A Elbow B Elbow 1.8 10.0 56 >45 A Elbow ? 7.4 4.2 5.9 72.4 EMG ?Side Muscle Nerve Root Ins Act Fibs Psw Amp Dur Poly Recrt Int Pat Comment Left 1stDorInt Ulnar C8-T1 Nml Nml Nml Nml Nml 0 Nml Complete Left FlexCarRad Median C6-7 Nml Nml Nml Nml Nml 0 Nml Complete Left Biceps Musculocut C5-6 Nml Nml Nml Nml Nml 0 Nml Complete Left Triceps Radial C6-7-8 Nml Nml Nml Nml Nml 0 Nml Complete Left Deltoid Axillary C5-6 Nml Nml Nml Nml Nml 0 Nml Complete FINDINGS: All motor and sensory nerves tested showed normal latencies, amplitudes and conduction velocities. Concentric needle EMG was performed in selected muscles of the left upper extremity. Study did not reveal signs of electric abnormalities as shown in the table below. IMPRESSION: 1. This is a normal study. 2. There is no electrodiagnostic evidence for median neuropathy, ulnar neuropathy, brachial plexopathy, or cervical radiculopathy. Thank you for your kind referral. Sandra Saunders MD, BEN Board Certified, [place] Board [employer] Physical Medicine and Rehabilitation (ABPMR) Board Certified, [place] Board of Electrodiagnostic Medicine (ABEM) [place] [id number] [facility]
== END 2024-03-24 14:24 | disposition home or self-care (01) ==
LOC: HO.NEURO 14:23
PROVIDERS: PCP Student in an Organized Health Care Education/Training Program; Visit Provider Emergency Medicine
DX: R20.0 Anesthesia of skin (principal); R20.2 Paresthesia of skin
CPT/HCPCS: 95886; 95909

== ENCOUNTER → 2024-03-24 14:29 | Outpatient (BNV) | payer OTHER, SELFPAY | PROVIDERS: PCP Student in an Organized Health Care Education/Training Program; Visit Provider Physical Medicine & Rehabilitation | DX: M25.532 Pain in left wrist (principal); M79.632 Pain in left forearm | CPT/HCPCS: 95886; 95909 ==

== ENCOUNTER 2024-04-15 14:24 | Outpatient (AMB) | payer OTHER, SELFPAY ==
--- NOTE | 2024-04-15 14:28 | A.OFFVIS_ITS ---
Intake Visit Reasons: Pelvic pain Intake Note: Patient presents today for Pelvic Pain Meds- Pyridium, Oxybutinin Allergies to Antibiotic- Penicillins Blood Thinner- None Food Adviser Required: Yes Food Adviser Name: Sumanth Newman Information Interpreted: non-clinical & clinical Accompanied by: Self / Same As Patient Allergies Penicillins [PENICILLINS] Allergy (Unknown, Verified 04/15/24 14:33) BILLIE MAYO Comments Details: 04/15/2024--Sapna is being followed for recurrent UTIs, interstitial cystitis and related symptoms of pelvic pain and urgency. She called to be seen today because of pelvic pain. She states for about 8 days she has been off and on having pain with urination. She states that she forgot to take the prophylactic antibiotics with intercourse. Urinalysis evaluated is nitrite positive. I will send urine for culture. I will empirically start Macrobid 100 mg twice a day for 7 days pending urine culture. In review of her chart the patient had a CT scan abdomen pelvis with contrast ordered by another provider for complaints of abdominal pain. I have reviewed the results kidneys duplicated right renal system no hydronephrosis no renal calculi. Will continue low dose macrobid post intercourse, tylenol and/or OTC NSAID prn, Cont Uribel TID, continue oxybutynin 10 mg qhs. Review of chart: 02/01/24-Sapna is a 62-year-old female who presents today to the office for a follow-up. Sapna is followed due to bladder pain syndrome. She has been treated with bladder installations heparin lidocaine and Solu-Medrol. The patient is a Mongolian speaking female. Certified educational sign language interpreter was present during the visit. PMH includes --hypertension, diabetes, h/o thyroid cancer, followed by endocrine. I had previously discussed use of pyridium prior to intercourse and low dose macrobid post intercourse, tylenol and/or OTC NSAID prn. She was prescribed uribel. The patient states the her bladder pain is much better, but not gone. Review of chart: 03/17/23--Out patient cystoscopy bladder biopsy-- bladder findings, erythematous flattened changes, pathology chronic cystitis with muscularis propria present. 04/23/22-- urine cytology- negative for malignant cells 02/01/2024: Plan:low dose macrobid post intercourse, tylenol and/or OTC NSAID prn Cont Uribel TID, continue oxybutynin 10 mg qhs Follow-up in 6 months. [facility] Medical History Palpitations Non-cardiac chest pain Pelvic pain Leg pain Bladder pain Lower abdominal pain Gross hematuria Toe pain Right knee pain Effusion, right knee Dysuria Pelvic pain in female Hematuria Mass of spine Hematuria Type 2 diabetes mellitus with polyneuropathy DM2 (diabetes mellitus, type 2) Nail deformity Paronychia Failure of spinal cord stimulator Thymoma Pulmonary nodules Thyroid cancer Blood in urine Constipation by delayed colonic transit Tubular adenoma of colon Gastritis Hypertension Dyslipidemia Post-surgical hypothyroidism Primary thyroid cancer Vitamin D deficiency Surgical History History of thymectomy History of back surgery Hx of colonoscopy Hx of thyroidectomy Hx of hernia repair Hx of section Hx of hysterectomy History of esophagogastroduodenoscopy (EGD) Family History Father Stroke Heart attack Mother Diabetes mellitus Family/Other Family history of cancer Sister Stomach cancer Family/Other Thyroid cancer Social History Household Members: Spouse, Children and Other Alcohol intake: unknown Patient Tobacco Use Status: Former Tobacco user Tobacco use type: Cigarette Second Hand Smoke Exposure: No Sexual orientation: Straight/Heterosexual Gender identity: Female Review of Systems Const All systems reviewed & are unremarkable except as noted in HPI and below Reports no additional complaints Eyes Reports no additional complaints ENT Reports no additional complaints Card Reports no additional complaints Resp Reports no additional complaints GI Reports no additional complaints Reports as per HPI Musc Reports no additional complaints Skin/Breast Reports system reviewed and no additional complaints, except as documented Neuro Reports no additional complaints Psych Reports no additional complaints Endo Reports no additional complaints Je/Lymph Reports no additional complaints Aller/Immun Reports no additional complaints Results AMB Urinalysis, Automated UA Leukoctes 0 Gigi/uL Last Edit by GANESH Cuellar on 04/15/24 14:40 UA Nitrite Positive Last Edit by Sumanth Newman Rocky on 04/15/24 14:40 UA Urobilinogen 0.2 mg/dL Last Edit by GANESH Cuellar on 04/15/24 14:4 0 UA Protein 15 mg/dL Last Edit by Sumanth Newman [facility] on 04/15/24 14:40 UA pH 5.5 Last Edit by Sumanth Newman Rocky on 04/15/24 14:40 UA Blood 10 Scott/uL Last Edit by Sumanth Newman Rocky on 04/15/24 14:40 UA Specific [place] 1.015 Last Edit by Sumanth Newman Rocky on 04/15/24 14: 40 UA Ketone Negative Last Edit by Sumanth Newman Rocky on 04/15/24 14:40 UA Bilirubin 0 mg/dL Last Edit by Sumanth Newman [facility] on 04/15/24 14:40 UA Glucose 1000 mg/dL Last Edit by Sumanth Newman Rocky on 04/15/24 14:40 3+ Sumanth Newman 04/15/24 14:40 Results Reviewed Results Reviewed: Date of Service: 03/09/24 CT ABDOMEN AND PELVIS WITH CONTRAST CLINICAL INFORMATION: Abdominal pain COMPARISON: CT scan of abdomen and pelvis on 11/15/2023 TECHNIQUE: Multidetector volumetric images were obtained from the superior aspect of the liver through the pubic symphysis following administration 85 mL of Omnipaque 350 intravenous contrast. Sagittal and coronal reformatted images were obtained on the technologist's workstation. Oral contrast: No This CT examination was performed using dose optimization techniques as appropriate, variously including the following: *Automated exposure control *Adjustment of mA and/or kV according to patient size (this includes techniques or standardized protocols for targeted exams where dose is matched to indication/reason for exam; i.e. extremities or head) *Use of iterative reconstruction technique DLP: 288 mGy-cm FINDINGS: LUNG BASES: A stable 0.5 cm calcified granuloma is seen at posterior pleural border of right lower lobe posterior basal segment. LIVER: No focal lesion is seen in the liver. GALLBLADDER AND BILIARY TREE: Gallbladder appears unremarkable without calcified stones. Common bile duct is not dilated. SPLEEN: The spleen is normal in size without focal lesion. PANCREAS: The pancreas appears unremarkable. ADRENAL GLANDS: Adrenal glands are normal in size without focal lesion bilaterally. KIDNEYS: Bilateral kidneys are normal in size without focal lesion. 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 BOWELS: There is normal filling of stomach and small bowel loops with oral contrast down to proximal pelvic ileum. RETROPERITONEUM: No abnormally enlarged retroperitoneal lymph nodes, mass or hematoma could be seen. BLOOD VESSELS: Abdominal aorta is normal in size with scattered atherosclerotic calcifications and smoothly patent. ABDOMINAL WALL: Abdominal subcutaneous tissue and muscle are intact. No evidence of ventral hernia. PERITONEUM: There was no ascites. There were no abdominal peritoneal inflammatory changes seen. No free peritoneal air was seen. No abnormally enlarged mesenteric lymph nodes are found. BONES: Mild posterior L4-L5 and L5-S1 disc protrusions, advanced L5-S1 degenerative lumbar disc disease are seen. No fracture or dislocation. No focal bone lesion diagnostic of metastatic disease could be seen in the lumbar region. EXAMINATION: CT pelvis. FINDINGS: URINARY BLADDER: Urinary bladder fills normally with urine. BOWELS: There is no abnormal dilatation of the large and small bowel loops. Normal caliber appendix is seen projecting medial and inferior to the cecum with intraluminal high density material, most prominent in the bulbous distal end. Inspissated barium is again visualized in the sigmoid colon diverticula. GENITAL ORGANS: No adnexal mass lesion could be seen. The uterus is surgically absent. LYMPH NODES: No abnormally enlarged iliac or inguinal lymph nodes are seen. PERITONEUM: No inflammatory changes, ascites or free peritoneal air are found in the pelvis. BONES: No fracture or dislocation. No focal bone lesion diagnostic of metastatic disease could be seen in the pelvis. Right posterior gluteal nerve stimulator device is seen at L5-S1 junction, with electrode entering the spinal canal at the same level ending at L1. IMPRESSION: 1. Interval resolution of proximal jejunitis. No evidence of acute intra-abdominal or pelvic process. 2. Unchanged duplicated right renal collecting systems. 3. Unchanged, Status post hysterectomy. 4. No evidence of bowel obstruction or inflammatory changes. Unchanged sigmoid colon diverticulosis. 5. Interval appearance of dense content in the appendicular lumen, compatible with inspissated barium or appendicolith. 6. No interval change in position of right gluteal nerve stimulator and stimulator wire. Date of Service: 01/11/23 EXAMINATION: CT abdomen pelvis w IV con CLINICAL INFORMATION: Reason for Exam epigastric/LLQ abd pain, N COMPARISON: Prior CT scan July 2022 FINDINGS: LOWER THORAX: Included lung bases are clear. HEPATOBILIARY: No focal hepatic lesions. No biliary ductal dilatation. GALLBLADDER: Gallbladder distended, otherwise unremarkable. SPLEEN: Spleen is normal in size. PANCREAS: No focal mass or ductal dilatation. STOMACH AND GASTROINTESTINAL TRACT: Stomach is grossly unremarkable. There is no bowel distention or thickening. No CT evidence of appendicitis. Mild diverticulosis without evidence of acute diverticulitis. ADRENALS: No adrenal nodules. KIDNEYS/URETERS: No hydronephrosis, stones or solid mass lesions. URINARY BLADDER: Partially decompressed. PELVIC VISCERA: Unremarkable PERITONEUM: No free air or fluid. LYMPH NODES: Few mildly prominent mesenteric lymph nodes right lower quadrant the short axis is less than 1 cm, there are not significantly enlarged. VASCULAR:Abdominal aorta normal in size, no aneurysm found. BONES, ABDOMINAL WALL AND SOFT TISSUES: There is a baclofen pump embedded in the subcutaneous fat posterior back the catheter of which is in the spinal central canal the tip of the level of L1 right of midline. IMPRESSION:? *? No CT evidence of acute intra-abdominal process to explain patient's pain symptoms. ? *? Mild diverticulosis without evidence of acute diverticulitis. ? *? Few mildly prominent mesenteric lymph nodes right lower quadrant the short axis is less than 1 cm. Not significantly enlarged. No evidence of inflammation or appendicitis. ? *? Baclofen pump embedded in the subcutaneous fat posterior back the catheter of which is in the spinal canal the tip of which is in the level of L1 right of midline. 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 Empirically start Macrobid 100 mg twice a day for 7 days. Continue low dose macrobid post intercourse, tylenol and/or OTC NSAID prn, Cont Uribel TID, continue oxybutynin 10 mg qhs. Orders: Orders AMB Urinalysis Automated Today Z13.9 - Encounter for screening, unspecified Urine Culture Today N39.0 - Urinary tract infection, site not specified Medications: New nitrofurantoin monohyd/m-cryst 100 mg (Macrobid) must administer with a meal/food 100 mg PO BID 14 caps 0RF Patient Instructions: The patient had an opportunity to ask questions regarding treatment plan. The patient expressed understanding and agreement with the above treatment plan. The patient is aware they should contact our office by phone for worsening of their current condition or the appearance of new symptoms. Compliance is encouraged with any medications and followup testing that is ordered. It is a privilege to be allowed the opportunity to participate in the urologic care of your patient. If you have any questions or concerns regarding treatment for the above conditions please do not hesitate to contact me. The office telephone contact is [phone]. This note is constructed in part using voice recognition software. While every effort has been made to ensure accuracy electric truck driver errors may have been included. Yours sincerely, Analy Campos MD Coding Level of Care Code Est Pt Level 4 (78928) Diagnoses Chronic cystitis N30.20 Dysuria R30.0 Bladder pain R39.89 Pelvic pain R10.2 Dyspareunia in female N94.10 Acute UTI N39.0 Duplex kidney Q63.8
== END 2024-04-15 14:58 | disposition home or self-care (01) ==
PROVIDERS: PCP Student in an Organized Health Care Education/Training Program; Visit Provider Urology
DX: N30.20 Other chronic cystitis without hematuria (principal); R30.0 Dysuria; R39.89 Other symptoms and signs involving the genitourinary system; R10.2 Pelvic and perineal pain; N94.10 Unspecified dyspareunia; N39.0 Urinary tract infection, site not specified; Q63.8 Other specified congenital malformations of kidney; Z13.9 Encounter for screening, unspecified
CPT/HCPCS: 99214

== ENCOUNTER 2024-04-15 14:24 | Outpatient (REF) | payer OTHER, SELFPAY | END 2024-04-15 14:25 | disposition home or self-care (01) | LOC: HO.LAB 14:24 | PROVIDERS: PCP Student in an Organized Health Care Education/Training Program; Visit Provider Urology | DX: Z13.9 Encounter for screening, unspecified (principal) | CPT/HCPCS: 81003; 87086; 87088; 87186 ==

== ENCOUNTER 2024-04-18 08:23 | Outpatient (AMB) | payer OTHER, SELFPAY ==
[2024-04-18 09:03] VITALS: BP 114/62; PULSE 88; BMI 24.1
--- NOTE | 2024-04-18 09:03 | MHC.OFFVIS ---
Vital Signs 04/18/24 09:03 Height 5 ft 5 in Weight 145 lb 1.027 oz BMI 24.1 BP 114/62 Blood Pressure Location Rt brachial Position Sitting Pulse 88 Pulse Source Monitor Intake Visit Reasons: chest discomfort x 1 month Cleaning Maid Required: Yes Cleaning Maid Name: jean claude almeida [id number] Allergies Penicillins [PENICILLINS] Allergy (Unknown, Verified 04/18/24 09:06) HIVES Medication List - Last Reconciled 04/18/24 by BEVERLY Gu acetaminophen (Tylenol) 650 mg (2 x 325 mg) PO Q6H PRN albuterol sulfate 90 mcg/actuation (ProAir HFA) 2 puffs inhalation Q4-6H PRN blood sugar diagnostic (FreeStyle Lite Strips) Test blood glucose twice per day blood-glucose meter (FreeStyle Lite Meter kit) As directed flash glucose scanning reader (FreeStyle [place] 2 [place]) As directed fluticasone propionate 50 mcg/actuation sprays intranasal hydrocortisone 2.5% (Proctosol HC) 1 appl PA BID-QID PRN ibuprofen 600 mg PO Q8H PRN levothyroxine 112 mcg PO DAILY levothyroxine 112 mcg PO DAILY losartan-hydrochlorothiazide 100-12.5 mg 1 tab PO DAILY metformin ER 500 mg PO BID trishngiy-jvvpy-sfc 118-10-40.8-36 mg (Uribel) 1 tab PO TID 90 days methylcellulose (laxative) (Citrucel) 500 mg PO DAILY montelukast 10 mg PO DAILY nitrofurantoin macrocrystal 50 mg orally use as directed post intercourse; must administer with a meal/food nitrofurantoin monohyd/m-cryst 100 mg (Macrobid) 100 mg PO BID oxybutynin chloride ER 10 mg PO DAILY pantoprazole 40 mg PO DAILY rosuvastatin 40 mg PO DAILY sennosides (Natural Senna Laxative) 17.2 mg (2 x 8.6 mg) PO QDAY sitagliptin phosphate (Januvia) 50 mg PO DAILY sulfamethoxazole-trimethoprim 800-160 mg (Bactrim DS) 1 tab PO BID HPI HPI chest discomfort x 1 month: Details: Sapna is a 63-year-old female past medical history of hypertension, hyperlipidemia, diabetes, atypical chest discomfort, heart palpitations presents for follow-up. Today she reports that she is still getting sharp pains in her left breast region. She does have tenderness to palpation in that area. She says she has had mammograms and they are normal. She describes that her discomfort moves over to her mid chest at times. No exertional chest discomfort. She continues to have reports of heart palpitation, like her heart is beating strong. She is quite vague in describing these palpitations. No clear sustained rapid or irregular heartbeats. No presyncope, syncope, falls. No shortness of breath, PND, orthopnea or edema. She takes all meds as directed. Certified cloth winding supervisor used. [facility] Medical History Palpitations Non-cardiac chest pain Pelvic pain Leg pain Bladder pain Lower abdominal pain Gross hematuria Toe pain Right knee pain Effusion, right knee Dysuria Pelvic pain in female Hematuria Mass of spine Hematuria Type 2 diabetes mellitus with polyneuropathy DM2 (diabetes mellitus, type 2) Nail deformity Paronychia Failure of spinal cord stimulator Thymoma Pulmonary nodules Thyroid cancer Blood in urine Constipation by delayed colonic transit Tubular adenoma of colon Gastritis Hypertension Dyslipidemia Post-surgical hypothyroidism Primary thyroid cancer Vitamin D deficiency Surgical History History of thymectomy History of back surgery Hx of colonoscopy Hx of thyroidectomy Hx of hernia repair Hx of section Hx of hysterectomy History of esophagogastroduodenoscopy (EGD) Family History Father Stroke Heart attack Mother Diabetes mellitus Family/Other Family history of cancer Sister Stomach cancer Family/Other Thyroid cancer Social History Household Members: Spouse, Children and Other Alcohol intake: unknown Patient Tobacco Use Status: Former Tobacco user Tobacco use type: Cigarette Second Hand Smoke Exposure: No Sexual orientation: Straight/Heterosexual Gender identity: Female Review of Systems Const All systems reviewed & are unremarkable except as noted in HPI and below ENT Denies dizziness Card Reports chest pain, Reports chest pain at rest, Reports chest pain with activity, Denies rapid heart rate, Denies pedal edema, Denies edema, Denies leg edema, Denies lightheadedness, Denies palpitations, Denies dyspnea, Denies dyspnea on exertion and Denies orthopnea Resp Denies cough, Denies dyspnea and Denies dyspnea on exertion GI Denies hematochezia and Denies change in stool character Musc Denies abnormal gait, Denies limited range of motion, Denies muscle cramps, Denies muscle weakness, Denies numbness, Denies radiating pain into limb, Denies stiffness and Denies tingling Neuro Denies abnormal gait, Denies dizziness, Denies numbness and Denies tingling Endo Denies palpitations Physical Exam Vital Signs: Last Vital Signs Pulse 88 04/18/24 09:03 BP 114/62 04/18/24 09:03 BMI result Body Mass Index 24.1 Const General: cooperative, healthy appearing, comfortable and no acute distress Orientation/consciousness: patient oriented x3 Neck Neck: Yes normal visual inspection and Yes no JVD Resp Effort & Inspection: normal respiratory effort Auscultation: clear to auscultation bilaterally, no crackles, no rales, no rhonchi and no wheezes Cardio Jugular venous distension: no JVD Rate: regular rate Rhythm: regular rhythm Heart sounds: S1 normal heart sound present, S2 normal heart sound present, no gallops, no murmurs and no rubs Neuro General: patient oriented x3 Extrem General: Yes normal to inspection, No no pedal edema and No calf tenderness Psych Appearance: grossly normal Mental Status: mental status grossly normal Speech and movement: Normal speech and movement present Office Procedures EKG Details: Today, read by me, normal sinus rhythm, no acute ST or T-wave abnormalities, rate 88 [id number], Complete Assessment & Plan Assessment & Plan (1) Non-cardiac chest pain: Comment: This is reproducible chest pain and is noncardiac in origin. Likely cause musculoskeletal pain. Code(s): R07.89 - Other chest pain Category: Medical Plan: Reports of left-sided chest discomfort, sharp pains to the left breast region which does radiate to her mid chest at times. She does have some tenderness to palpation. She says she has had a mammogram which is normal. No reports of exertional chest discomfort. She does have multiple cardiac risk factors including hypertension, hyperlipidemia and diabetes. Overall her symptom continues to sound noncardiac. Since she continues to report discomfort and does have multiple cardiac risk factors, will obtain an exercise stress test to eval for any ischemia. Reviewed signs and symptoms of angina with her. Continue risk factor modification. Emergency care if ever needed for symptoms. Cardiology follow up in 6 week. sooner if needed (2) Palpitations: Code(s): R00.2 - Palpitations Category: Medical Plan: Report of intermittent heart palpitations where her heart is beating strong. Vague in describing her symptoms. A Holter monitor had been done on 02/26/2023 for 7 days showing sinus rhythm with average heart rate 89, rare ectopy. Echocardiogram done 11/18/2018 showing EF normal, grade 1 diastolic dysfunction, no valve abnormalities. Previously noted to have hyperthyroidism on labs done 09/08/2023 showing TSH less than 0.01. Her Levothyroxine was reduced. Labs done 02/01/24 showed TSH 2.36. EKG today shows SR, rate 88. Will recheck a holter to ensure she is not having any concerning arrythmia or increased ectopy. (3) Hypertension: Code(s): I10 - Essential (primary) hypertension Category: Medical Plan: Well controlled Plan Time spent on chart review, documentation, interview and assessment Orders: Orders CA stress test Today R07.89 - Other chest pain ECG 3 day holter monitor Today R00.2 - Palpitations Coding Level of Care Code Est Pt Level 4 (47322) Diagnoses Non-cardiac chest pain R07.89 Palpitations R00.2 Hypertension I10 CPT Codes EKG - CPT: [id number], Complete ([id number]) Time Spent (min) 30
== END 2024-04-18 09:33 | disposition home or self-care (01) ==
PROVIDERS: PCP Student in an Organized Health Care Education/Training Program; Visit Provider Nurse Practitioner Family
DX: R07.89 Other chest pain (principal); R00.2 Palpitations; I10 Essential (primary) hypertension
CPT/HCPCS: 93010; 99214

== ENCOUNTER → 2024-04-18 08:23 | Outpatient (BNVA) | payer OTHER, SELFPAY | PROVIDERS: PCP Student in an Organized Health Care Education/Training Program; Visit Provider Nurse Practitioner Family | DX: R07.89 Other chest pain (principal); R00.2 Palpitations; I10 Essential (primary) hypertension | CPT/HCPCS: 93005 ==

== ENCOUNTER → 2024-04-27 07:48 | Outpatient (REF) | payer OTHER, SELFPAY ==
--- NOTE | 2024-04-27 07:53 | CA_ITS ---
Acquisition Time: 2024-04-27 08:05:26 Total Exercise Time: 00:03:21 Test Indications: CP Medications: SEE H Protocol: DAHLIA Max HR: 141 BPM 90% of Pred: 155 BPM Max BP: 144/078 mmHG Max Work Load: 4.6 METS Exercise stress test exercise 3 min 21 sec of Stage 1 Dahlia protocol achieving 89% , with mild SOB, with 8/10 chest pressure, with isolated PVCs, with normotensive response to exercise. without EKG changes. Chets pain resolved with rest. Test reviewed with Dr. Smith. Referred By: Anitra Melchor Overread By: Alba Melchor
--- NOTE | 2024-04-27 07:53 | HM_ITS ---
Conclusion: 1. Patient was monitored for total period of 2 days and 23 hours 2. Baseline was normal sinus rhythm with average heart rate of 89 beats per minute 3. No significant pauses or arrhythmias noted 4. No patient reported events MTDD
== END ==
LOC: HO.CARD 07:48
PROVIDERS: PCP Student in an Organized Health Care Education/Training Program; Visit Provider Nurse Practitioner Family
DX: R07.89 Other chest pain (principal); R00.2 Palpitations
CPT/HCPCS: 93017; 93242

== ENCOUNTER → 2024-04-27 07:53 | Outpatient (BNV) | payer OTHER, SELFPAY | PROVIDERS: PCP Student in an Organized Health Care Education/Training Program; Visit Provider Nurse Practitioner | DX: R00.2 Palpitations (principal) | CPT/HCPCS: 93016; 93018; 93244 ==

== ENCOUNTER → 2024-05-03 08:14 | Outpatient (REF) | payer OTHER, SELFPAY ==
--- NOTE | ~2024-05-03 | NM_ITS ---
Lexiscan Myocardial perfusion study Indication: Chest pain, assess for coronary disease and ischemia Technique: The patient was brought in for a Lexiscan perfusion study on 05/03/2024 and was injected 0.4 mg of Lexiscan intravenously. Within a minute of this injection 25 mCi of sestamibi was given intravenously. Images were obtained using the SPECT gamma camera interlaced with the gating device. Images were obtained in supine position. Resting perfusion study was performed on 05/04/2024. Patient was administered 25 mCi of sestamibi intravenously at rest. Images were then obtained in supine position. Images were processed with the software and compared side to side in short axis, horizontal long axis and vertical long axis views. Total DLP 121mGy-cm. Findings: Raw acquisition reviewed. The stress perfusion study showed diminished tracer uptake along the inferolateral wall. There is improvement with CT attenuation correction which could indicate diaphragmatic attenuation artifact. The gated study shows normal LV systolic function with calculated LVEF of > 70%. LV cavity is normal in size. The gated study shows normal wall thickening and contraction of segments. Resting study shows mildly diminished tracer uptake along the inferolateral wall but otherwise unremarkable. Improvement with CT attenuation correction suggestive of diaphragmatic attenuation artifact. Gating at rest reveals normal wall motion with ejection fraction at 70%. The findings are consistent with reversible inferolateral defect improving with CT attenuation correction. Probably all diaphragmatic attenuation artifact. NM/NM cardiolite stress test Impression: 1. Myocardial perfusion imaging study shows likely normal myocardial perfusion. 2. Gated LVEF is >70 % during stress and 70% during rest. 3. Transient ischemic dilatation not present. EKG component of the test reported separately.
--- NOTE | 2024-05-03 08:27 | CA_ITS ---
Acquisition Time: 2024-05-03 08:23:19 Total Exercise Time: 00:02:00 Test Indications: Palpitations Medications: SEE H Protocol: LEXISCAN Max HR: 137 BPM 88% of Pred: 155 BPM Max BP: 148/084 mmHG Max Work Load: 1.0 METS Pharmacological stress test with Lexiscan injection, while sitting and kicking her legs, without anginal symptoms, without arrythmia, with normotensive response to injection, with nondiagnostic EKG for ischemia. In recovery she was treated with Aminophylline 75mg IVP to reverse Lexiscan. Nuclear images pending. Test reviewed with Dr Kumari. Referred By: Anitra Melchor Overread By: ANITRA MELCHOR
== END ==
LOC: HO.CARD 08:14
PROVIDERS: Visit Provider Nurse Practitioner Family
DX: R07.89 Other chest pain (principal); R94.39 Abnormal result of other cardiovascular function study
CPT/HCPCS: 78452; 93017; A9500; J0280; J2785

== ENCOUNTER → 2024-05-03 08:27 | Outpatient (BNV) | payer OTHER, SELFPAY | PROVIDERS: Visit Provider Nurse Practitioner Family | DX: R07.9 Chest pain, unspecified (principal) | CPT/HCPCS: 78452; 93016; 93018 ==

== ENCOUNTER 2024-05-04 10:35 | Outpatient (REF) | payer OTHER, SELFPAY ==
[2024-05-04 15:52] LABS: Appearance Urine Clear; Color Urine Yellow; Glucose Urine UA Negative (Negative); Leukocyte Esterase Urine Negative (Negative); Nitrite Urine Negative (Negative); Specific Gravity - Urine <= 1.005 (1.005-1.025); Urine Blood Negative (Negative); Urine Ketones Negative (Negative); Urine Protein Negative (Neg-Trace)
[2024-05-04 15:57] LABS: Bacteria Urine None Seen (None Seen); Hyaline Casts Urine 0-2 /LPF (0-2); RBC Urine 0-2 /HPF (0-2); Squamous Epithelial Cell Urine 0-2 /HPF (0-2); WBC Urine 0-5 /HPF (0-5)
== END 2024-05-04 10:36 | disposition home or self-care (01) ==
LOC: HO.LAB 10:35
PROVIDERS: PCP Student in an Organized Health Care Education/Training Program; Visit Provider Urology
DX: N39.0 Urinary tract infection, site not specified (principal)
CPT/HCPCS: 81001; 87086

== ENCOUNTER 2024-05-04 11:19 | Outpatient (AMB) | payer OTHER, SELFPAY ==
--- NOTE | 2024-05-04 11:24 | MHC.OFFVIS ---
Vital Signs 05/04/24 11:33 Height 5 ft 5 in Weight 145 lb BMI 24.1 Intake Visit Reasons: N/P lumbar pain s/p falling down 04/19/24 Intake Note: Sapna is a 63 year old female who presents today as a new problem visit with complaints of lower back pain after sustaining a fall on 04/19/24. Patient reports that she is having bilateral lower back pain that is radiating to the legs. When sitting she feels pain in the hips. Hx of pain stimulator with pain mgmt, which is still intact and patient reports works on and off. 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 States in Marshallese that she has active pain in lower back. She has not had imaging after the fall 04/19/24, and had not gone to seek medical care since. Sent patient for lumbar and hip/pelvic xray first, rule out fracture - no acute fracture seen. Chronic back pain. Used to follow Pain Management, has SCS for lumbar and CRPS RLE. Pain in her back, right leg, prefering to her right foot. She says she has frequent urination, but medical history lists frequent UTI. She says she had operation for her back for a hernia at [facility] 2 years ago, which she says was working well for her up until she fell last 04/19/24. [facility] Medical History Palpitations Non-cardiac chest pain Pelvic pain Leg pain Bladder pain Lower abdominal pain Gross hematuria Toe pain Right knee pain Effusion, right knee Dysuria Pelvic pain in female Hematuria Mass of spine Hematuria Type 2 diabetes mellitus with polyneuropathy DM2 (diabetes mellitus, type 2) Nail deformity Paronychia Failure of spinal cord stimulator Thymoma Pulmonary nodules Thyroid cancer Blood in urine Constipation by delayed colonic transit Tubular adenoma of colon Gastritis Hypertension Dyslipidemia Post-surgical hypothyroidism Primary thyroid cancer Vitamin D deficiency Surgical History History of thymectomy History of back surgery Hx of colonoscopy Hx of thyroidectomy Hx of hernia repair Hx of section Hx of hysterectomy History of esophagogastroduodenoscopy (EGD) Family History Father Stroke Heart attack Mother Diabetes mellitus Family/Other Family history of cancer Sister Stomach cancer Family/Other Thyroid cancer Social History Household Members: Spouse, Children and Other Alcohol intake: unknown Patient Tobacco Use Status: Former Tobacco user Tobacco use type: Cigarette Second Hand Smoke Exposure: No Sexual orientation: Straight/Heterosexual Gender identity: Female Review of Systems Const All systems reviewed & are unremarkable except as noted in HPI and below Physical Exam Vital Signs: BMI result Body Mass Index 24.1 Constitutional: Patient appears to be in no acute distress, well nourished and well developed. Patient was appropriately conversant and oriented. Uncomfortable. MSK: Preferred to sit down. Kept right leg extended. No footdrop seen. Results Reviewed Results Reviewed: I independently reviewed the results of the following: Lumbar and hip x-rays done in the office today did not show acute fracture. Mild disc space narrowing L5-S1. Joint space narrowing bilateral hips. Await final reading. I reviewed records from the following: Pain management Orthopedics Hand surgery Assessment & Plan Assessment & Plan (1) Fall: Code(s): W19.XXXA - Unspecified fall, initial encounter Category: Medical Qualifiers: Encounter type: initial encounter Qualified Code(s): W19.XXXA - Unspecified fall, initial encounter (2) Back pain: Code(s): M54.9 - Dorsalgia, unspecified Category: Medical Qualifiers: Chronicity: chronic Back pain laterality: right Sciatica presence: with sciatica Sciatica laterality: sciatica of right side Back pain location: low back pain Qualified Code(s): M54.41 - Lumbago with sciatica, right side; G89.29 - Other chronic pain (3) CRPS (complex regional pain syndrome type I): Code(s): G90.50 - Complex regional pain syndrome I, unspecified Category: Medical Qualifiers: Complex regional pain syndrome affected site: lower extremity Laterality: right Qualified Code(s): G90.521 - Complex regional pain syndrome I of right lower limb (4) Lumbar radiculopathy: Code(s): M54.16 - Radiculopathy, lumbar region Category: Medical Plan Chronic back pain, always radiated to the right side. Diagnosis of CRPS affecting right lower extremity, diagnosis made by pain management, spinal cord stimulator placed 2022. Patient says she was doing well up until she fell 04/19/2023. Did not seek any Urgent Care at that time. X-rays today did not show acute fractures. Await final reading. Patient reassured. Symptoms today appear to be consistent with her past right lower extremity symptoms. Lumbar x-rays today did show mild disc space narrowing L5-S1. Wonder if she has ongoing right L5 S1 radiculitis. It would be reasonable to get the lumbar MRI at this point. Referring her back to pain management, further interventions and maintenance of spinal cord stimulator. Deferred giving her pain medications that would be sedating, given history of fall. Continue tylenol as needed for now. Assessment and plan discussed with patient, and patient was agreeable. All questions were answered thoroughly. Sandra Saunders MD, BEN Board Certified, [place] [employer] Medicine and Rehabilitation (ABPMR) Board Certified, [place] Board [employer] Electrodiagnostic [employer] (ABEM) Orders: Orders XR lumbar spine 2-3V Today M54.9 - Dorsalgia, unspecified, W19.XXXA - Unspecified fall, initial encounter XR hips JAZMINE min 3V Today M54.9 - Dorsalgia, unspecified, W19.XXXA - Unspecified fall, initial encounter MR lumbar spine wo con Today G90.50 - Complex regional pain syndrome I, unspecified, M54.16 - Radiculopathy, lumbar region, M54.9 - Dorsalgia, unspecified, W19.XXXA - Unspecified fall, initial encounter Referrals Pain Management Referral G90.50 - Complex regional pain syndrome I, unspecified, M54.16 - Radiculopathy, lumbar region, M54.9 - Dorsalgia, unspecified, W19.XXXA - Unspecified fall, initial encounter Coding Level of Care Code New Pt Level 4 (94075) Diagnoses Fall, initial encounter W19.XXXA Encounter type: initial encounter Chronic right-sided low back pain with right-sided sciatica M54.41; G89.29 Chronicity: chronic Back pain laterality: right Sciatica presence: with sciatica Sciatica laterality: sciatica of right side Back pain location: low back pain Complex regional pain syndrome type 1 of right lower extremity G90.521 Complex regional pain syndrome affected site: lower extremity Laterality: right Lumbar radiculopathy M54.16
[2024-05-04 11:33] VITALS: BMI 24.1
== END 2024-05-04 12:20 | disposition home or self-care (01) ==
PROVIDERS: PCP Student in an Organized Health Care Education/Training Program; Visit Provider Physical Medicine & Rehabilitation
DX: M54.16 Radiculopathy, lumbar region (principal); W19.XXXA Unspecified fall, initial encounter; M54.41 Lumbago with sciatica, right side; G90.521 Complex regional pain syndrome I of right lower limb
CPT/HCPCS: 99214

== ENCOUNTER 2024-05-04 11:44 | Outpatient (REF) | payer OTHER, SELFPAY ==
--- NOTE | ~2024-05-04 | XR_ITS ---
EXAMINATION: XR LUMBAR SPINE XR HIP, BILATERAL CLINICAL INFORMATION: Fall, evaluate for fracture, back pain. COMPARISON: CT abdomen and pelvis of March 09, 2024. MRI lumbar spine May 01, 2022. X-ray lumbar spine October 25, 2021. TECHNIQUE: 3 views of the lumbar spine. 2 views of each hip. FINDINGS: Lumbar Spine: There are 5 [id number] lumbar-type vertebral bodies. Redemonstration of electronic device overlying right iliac wing with lead overlying the posterior aspect of L1-L2 level of lumbar spine. Slight rightward curvature of the lumbar spine. Facet arthritis in the lower lumbar spine. Lumbar vertebral body heights are preserved. Advanced degenerative changes with loss of disc space height at L5-S1. Facet arthritis in the lower spine. Bilateral Hips: Bilateral hip alignment is maintained. Mild to moderate degenerative changes in the right hip with narrowing of the joint space and hypertrophic changes with amorphous calcifications adjacent to the greater trochanter. Mild degenerative changes in the left hip with joint space narrowing and hypertrophic change. XR/XR lumbar spine 2-3V IMPRESSION: 1. Advanced degenerative disc disease at L5-S1. 2. Facet arthritis in the lower lumbar spine. 3. [id number] degenerative changes in the right hip. 4. Mild degenerative changes in the left hip. Additional imaging with CT scan or MRI should be considered for further evaluation if there is clinical concern for fracture or other underlying pathology.
--- NOTE | ~2024-05-04 | XR_ITS ---
EXAMINATION: XR LUMBAR SPINE XR HIP, BILATERAL CLINICAL INFORMATION: Fall, evaluate for fracture, back pain. COMPARISON: CT abdomen and pelvis of March 09, 2024. MRI lumbar spine May 01, 2022. X-ray lumbar spine October 25, 2021. TECHNIQUE: 3 views of the lumbar spine. 2 views of each hip. FINDINGS: Lumbar Spine: There are 5 [id number] lumbar-type vertebral bodies. Redemonstration of electronic device overlying right iliac wing with lead overlying the posterior aspect of L1-L2 level of lumbar spine. Slight rightward curvature of the lumbar spine. Facet arthritis in the lower lumbar spine. Lumbar vertebral body heights are preserved. Advanced degenerative changes with loss of disc space height at L5-S1. Facet arthritis in the lower spine. Bilateral Hips: Bilateral hip alignment is maintained. Mild to moderate degenerative changes in the right hip with narrowing of the joint space and hypertrophic changes with amorphous calcifications adjacent to the greater trochanter. Mild degenerative changes in the left hip with joint space narrowing and hypertrophic change. XR/XR hips JAZMINE min 3V IMPRESSION: 1. Advanced degenerative disc disease at L5-S1. 2. Facet arthritis in the lower lumbar spine. 3. [id number] degenerative changes in the right hip. 4. Mild degenerative changes in the left hip. Additional imaging with CT scan or MRI should be considered for further evaluation if there is clinical concern for fracture or other underlying pathology.
== END 2024-05-04 11:45 | disposition home or self-care (01) ==
LOC: HO.HOSX 11:44
PROVIDERS: Visit Provider Physical Medicine & Rehabilitation
DX: M54.9 Dorsalgia, unspecified (principal); Z91.81 History of falling
CPT/HCPCS: 72100; 73522

== ENCOUNTER 2024-05-11 11:41 | Outpatient (AMB) | payer OTHER, SELFPAY ==
--- NOTE | 2024-05-11 11:54 | A.OFFVIS_ITS ---
Vital Signs 05/11/24 12:08 Height 5 ft 5 in Weight 146 lb 13.246 oz BMI 24.4 BP 122/58 L Blood Pressure Location Rt brachial Position Sitting Pulse 78 Pulse Source Pulse Oximeter Pulse Oximetry (%) 95 Oxygen Delivery Method Room Air Intake Visit Reasons: discuss prep per edmundo Intake Note: Sapna presents in office today to discuss s/p prep with the [employer]. CC; Pt s/p scheduled for 06/23/2024. Pt had CT performed 03/09/2024. Pt was rx'd senna, citrucel, and had labs ordered at their last visit. Sapna states that she is still experiencing chronic sx (right sided pain). Pt denies any significant changes or concerns at this time regarding their GI sx. Pt did have a fall recently during which she did sustain multiple thoracic related injuries (approximately 2 weeks ago). [employer] Helper Required: Yes St[employer] Tender Helper Services: Stitch [employer]ing Machine Tender Helper Present St[employer] Tender Helper Name: [id number] Joel Information Interpreted: non-clinical & clinical Accompanied by: Self / Same As Patient Allergies Penicillins [PENICILLINS] Allergy (Unknown, Verified 05/16/24 11:01) HIVES HPI HPI discuss prep per edmundo: Details: LAST VISIT: Constipation by delayed colonic transit Lower abdominal pain RLQ abdominal pain Mesenteric adenitis Plan Patient no longer feels like she has dysphagia. Reports dyspepsia occasionally depending on what she eats. Patient does have right lower quadrant pain. Mesenteric adenitis seen on a CT scan last year. Patient's symptoms improved for sometime and now she is complaining of right lower quadrant discomfort again. Hyperactive bowel sounds, mild tenderness to right lower quadrant. Will send patient for CT scan. Patient can stop taking Linzess if causing her diarrhea. Start Citrucel and senna. Patient will return in 2 months to discuss going for colonoscopy. Patient is agreeable to this plan and verbalizes understanding of instructions. He was given the opportunity to ask questions and all questions answered. ? Thank you for allowing me to participate in her care Orders Orders Blood Urea Nitrogen Today R10.11 CT abdomen pelvis w IV con Today I88.0, R10.31, R10.9 Creatinine Today R10.11 Medications Refilled methylcellulose (laxative) (Citrucel) take it with full glass of water 500 mg PO DAILY 90 tabs 2RF K59.00 sennosides (Natural Senna Laxative) 17.2 mg (2 x 8.6 mg) PO QDAY 60 tabs 3RF Discontinued linaclotide (Linzess) Discontinued Reason: Doctor's Order 290 mcg PO QAM 30 caps 4RF K59.00 TODAY'S VISIT Patient is here today for follow-up and to discuss CT scan results as well as to go over the prep before going for colonoscopy. Patient continues to have occasional right lower quadrant pain. States that it feels little better than before. CT scan results reviewed with patient. Patient denies any nausea or vomiting. Denies any dyspepsia, dysphagia or odynophagia. Denies melena, hematochezia, unintentional weight loss or ribbon like stools. Patient denies any issues with anesthesia in the past. No history of sleep apnea. Not on any anticoagulation medication. Patient denies any cardiac or respiratory symptoms. [facility] Medical History Palpitations Non-cardiac chest pain Pelvic pain Leg pain Bladder pain Lower abdominal pain Gross hematuria Toe pain Right knee pain Effusion, right knee Dysuria Pelvic pain in female Hematuria Mass of spine Hematuria Type 2 diabetes mellitus with polyneuropathy DM2 (diabetes mellitus, type 2) Nail deformity Paronychia Failure of spinal cord stimulator Thymoma Pulmonary nodules Thyroid cancer Blood in urine Constipation by delayed colonic transit Tubular adenoma of colon Gastritis Hypertension Dyslipidemia Post-surgical hypothyroidism Primary thyroid cancer Vitamin D deficiency Surgical History History of thymectomy History of back surgery Hx of colonoscopy Hx of thyroidectomy Hx of hernia repair Hx of section Hx of hysterectomy History of esophagogastroduodenoscopy (EGD) Family History Father Stroke Heart attack Mother Diabetes mellitus Family/Other Family history of cancer Sister Stomach cancer Family/Other Thyroid cancer Social History Household Members: Spouse, Children and Other Alcohol intake: unknown Patient Tobacco Use Status: Former Tobacco user Tobacco use type: Cigarette Second Hand Smoke Exposure: No Sexual orientation: Straight/Heterosexual Gender identity: Female Review of Systems Const Denies weight gain and Denies weight loss ENT Reports no additional complaints, Denies dysphagia and Denies odynophagia Card Reports no additional complaints Resp Reports no additional complaints GI Reports abdominal pain (RLQ), Denies belching, Denies melena, Denies bloating, Reports constipation, Denies dysphagia, Denies excessive flatus, Denies dyspepsia, Denies heartburn, Denies diarrhea, Reports loose stools, Denies nausea, Denies odynophagia and Denies vomiting Reports no additional complaints Musc Reports no additional complaints Neuro Reports no additional complaints Psych Reports no additional complaints Endo Reports no additional complaints Physical Exam Vital Signs: Last Vital Signs Pulse 78 05/11/24 12:08 BP 122/58 L 05/11/24 12:08 Pulse Ox 95 05/11/24 12:08 Oxygen Delivery Method Room Air 05/11/24 12:08 BMI result Body Mass Index 24.4 Const General: healthy appearing, no acute distress and well developed Nutritional Appearance: well nourished Orientation/consciousness: patient oriented x3 Resp Effort & Inspection: normal respiratory effort, able to speak in complete sentences, no tracheal deviation and symmetric chest movement Auscultation: clear to auscultation bilaterally Cardio Rate: regular rate GI Inspection: Yes normal to inspection and No distended Palpation (GI): Soft to palpation, not firm, Tenderness to palpation present (GI) (RLQ) and No hepatosplenomegaly present Auscultation: Hyperactive bowel sounds present General: Yes no CVA tenderness Back/Spine/Pelvis Back: no CVA tenderness Skin General skin exam: elasticity normal, turgor normal and dry skin Neuro General: patient oriented x3 Psych Appearance: grossly normal Mental Status: mental status grossly normal Results Reviewed Results Reviewed: ABDOMINAL CT FINDINGS: LUNG BASES: A stable 0.5 cm calcified granuloma is seen at posterior pleural border of right lower lobe posterior basal segment. LIVER: No focal lesion is seen in the liver. GALLBLADDER AND BILIARY TREE: Gallbladder appears unremarkable without calcified stones. Common bile duct is not dilated. SPLEEN: The spleen is normal in size without focal lesion. PANCREAS: The pancreas appears unremarkable. ADRENAL GLANDS: Adrenal glands are normal in size without focal lesion bilaterally. KIDNEYS: Bilateral kidneys are normal in size without focal lesion. 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 BOWELS: There is normal filling of stomach and small bowel loops with oral contrast down to proximal pelvic ileum. RETROPERITONEUM: No abnormally enlarged retroperitoneal lymph nodes, mass or hematoma could be seen. BLOOD VESSELS: Abdominal aorta is normal in size with scattered atherosclerotic calcifications and smoothly patent. ABDOMINAL WALL: Abdominal subcutaneous tissue and muscle are intact. No evidence of ventral hernia. PERITONEUM: There was no ascites. There were no abdominal peritoneal inflammatory changes seen. No free peritoneal air was seen. No abnormally enlarged mesenteric lymph nodes are found. BONES: Mild posterior L4-L5 and L5-S1 disc protrusions, advanced L5-S1 degenerative lumbar disc disease are seen. No fracture or dislocation. No focal bone lesion diagnostic of metastatic disease could be seen in the lumbar region. EXAMINATION: CT pelvis. FINDINGS: URINARY BLADDER: Urinary bladder fills normally with urine. BOWELS: There is no abnormal dilatation of the large and small bowel loops. Normal caliber appendix is seen projecting medial and inferior to the cecum with intraluminal high density material, most prominent in the bulbous distal end. Inspissated barium is again visualized in the sigmoid colon diverticula. GENITAL ORGANS: No adnexal mass lesion could be seen. The uterus is surgically absent. LYMPH NODES: No abnormally enlarged iliac or inguinal lymph nodes are seen. PERITONEUM: No inflammatory changes, ascites or free peritoneal air are found in the pelvis. BONES: No fracture or dislocation. No focal bone lesion diagnostic of metastatic disease could be seen in the pelvis. Right posterior gluteal nerve stimulator device is seen at L5-S1 junction, with electrode entering the spinal canal at the same level ending at L1. CT/CT abdomen pelvis w IV con IMPRESSION: 1. Interval resolution of proximal jejunitis. No evidence of acute intra-abdominal or pelvic process. 2. Unchanged duplicated right renal collecting systems. 3. Unchanged, Status post hysterectomy. 4. No evidence of bowel obstruction or inflammatory changes. Unchanged sigmoid colon diverticulosis. 5. Interval appearance of dense content in the appendicular lumen, compatible with inspissated barium or appendicolith. 6. No interval change in position of right gluteal nerve stimulator and stimulator wire. Assessment & Plan Assessment & Plan (1) Constipation by delayed colonic transit: Code(s): K59.01 - Slow transit constipation Category: Medical (2) Lower abdominal pain: Code(s): R10.30 - Lower abdominal pain, unspecified Category: Medical (3) RLQ abdominal pain: Code(s): R10.31 - Right lower quadrant pain (4) Mesenteric adenitis: Code(s): I88.0 - Nonspecific mesenteric lymphadenitis (5) Screen for colon cancer: Code(s): Z12.11 - Encounter for screening for malignant neoplasm of colon Plan What to expect before during and after procedure discussed with patient. Stressed the importance of good bowel prep and clear liquid diet day before procedure. Patient denies any cardiac or respiratory symptoms. Patient denies any melena, hematochezia, unintentional weight loss or ribbon like stools. I will see patient after the procedure, sooner on as needed basis. Patient is agreeable to this plan and verbalizes understanding of instructions. She was given the opportunity to ask questions and all questions answered. Thank you for allowing me to participate in her care Medications: New bisacodyl (Dulcolax (bisacodyl)) take 4 tabs at noon the day before your colonoscopy 20 mg (4 x 5 mg) PO ONCE 4 tabs 0RF 1 day Z12.11 - Encounter for screening for malignant neoplasm of colon polyethylene glycol 3350 (Miralax) As directed by gastroenterology department at [facility] 238 grams PO ONCE 238 grams 0RF Z12.11 - Encounter for screening for malignant neoplasm of colon Coding Level of Care Code Est Pt Level 4 (77992) Diagnoses Constipation by delayed colonic transit K59.01 Lower abdominal pain R10.30 RLQ abdominal pain R10.31 Mesenteric adenitis I88.0 Screen for colon cancer Z12.11 Time Spent (min) 35 Comment 20 minutes spent with patient and additional 15 minutes spent reviewing her records
[2024-05-11 12:08] VITALS: BP 122/58; PULSE 78; O2SAT 95; BMI 24.4
== END 2024-05-11 12:32 | disposition home or self-care (01) ==
PROVIDERS: PCP Student in an Organized Health Care Education/Training Program; Visit Provider Nurse Practitioner Family
DX: K59.01 Slow transit constipation (principal); R10.30 Lower abdominal pain, unspecified; R10.31 Right lower quadrant pain; I88.0 Nonspecific mesenteric lymphadenitis; Z12.11 Encounter for screening for malignant neoplasm of colon
CPT/HCPCS: 99214

== ENCOUNTER → 2024-05-11 11:41 | Outpatient (BNVA) | payer OTHER, SELFPAY | PROVIDERS: PCP Student in an Organized Health Care Education/Training Program; Visit Provider Nurse Practitioner Family ==

== ENCOUNTER 2024-05-16 10:25 | Outpatient (AMB) | payer OTHER, SELFPAY ==
[2024-05-16 10:59] VITALS: BP 112/66; PULSE 99; RESP 14; O2SAT 97; BMI 24.3
--- NOTE | 2024-05-16 10:59 | A.OFFVIS_ITS ---
Vital Signs 05/16/24 10:59 Height 5 ft 5 in Weight 146 lb 2 oz BMI 24.3 BP 112/66 Blood Pressure Location Lt brachial Position Sitting Respiration 14 Pulse 99 Pulse Source Pulse Oximeter Pulse Oximetry (%) 97 Oxygen Delivery Method Room Air Intake Visit Reasons: Radiculopathy, lumbar region Intake Note: Patient comes in for follow-up. Reports pain 06/25. Allergies Penicillins [PENICILLINS] Allergy (Unknown, Verified 05/16/24 11:01) HIVES HPI Comments Details: Sapna is very pleasant 63 years old female who presents in my office with complains on pain in lower back with radiation to the right lower extremity. She was under my care 18 months ago, she was complaining on pain in the right knee. Genicular nerve block was not effective. She was established with [employer] spinal cord stimulator in the right lumbar epidural space gutter. She reported good pain relief. Now she presents in my office with complains on pain radiating to the right lower extremity from the lower back as well as pain across the lower back. She reported that pain started few weeks ago when she fell on her buttocks. She was sent for the x-ray and results are not read yet. However the position of the spinal cord stimulator seem to be appropriate. She has scheduled for the MRI of the lumbar spine. The MRI scheduled for 06/16/2024. I will invite her for the appointment when MRI is ready. Meanwhile I will start her on gabapentin 300 mg t.i.d.. Benefits and risks of gabapentin including side effects of gabapentin were explained to the patient. [facility] Medical History Palpitations Non-cardiac chest pain Pelvic pain Leg pain Bladder pain Lower abdominal pain Gross hematuria Toe pain Right knee pain Effusion, right knee Dysuria Pelvic pain in female Hematuria Mass of spine Hematuria Type 2 diabetes mellitus with polyneuropathy DM2 (diabetes mellitus, type 2) Nail deformity Paronychia Failure of spinal cord stimulator Thymoma Pulmonary nodules Thyroid cancer Blood in urine Constipation by delayed colonic transit Tubular adenoma of colon Gastritis Hypertension Dyslipidemia Post-surgical hypothyroidism Primary thyroid cancer Vitamin D deficiency Surgical History History of thymectomy History of back surgery Hx of colonoscopy Hx of thyroidectomy Hx of hernia repair Hx of section Hx of hysterectomy History of esophagogastroduodenoscopy (EGD) Family History Father Stroke Heart attack Mother Diabetes mellitus Family/Other Family history of cancer Sister Stomach cancer Family/Other Thyroid cancer Social History Household Members: Spouse, Children and Other Alcohol intake: unknown Patient Tobacco Use Status: Former Tobacco user Tobacco use type: Cigarette Second Hand Smoke Exposure: No Sexual orientation: Straight/Heterosexual Gender identity: Female Review of Systems Const All systems reviewed & are unremarkable except as noted in HPI and below Physical Exam Vital Signs: Last Vital Signs Pulse 99 05/16/24 10:59 Resp 14 05/16/24 10:59 BP 112/66 05/16/24 10:59 Pulse Ox 97 05/16/24 10:59 Oxygen Delivery Method Room Air 05/16/24 10:59 BMI result Body Mass Index 24.3 Const General: healthy appearing, no acute distress and well developed Nutritional Appearance: well nourished Orientation/consciousness: patient oriented x3 HEENT Face and sinus: Yes normal facial exam Mouth: Normal oral and palatal mucosa present Throat: Yes posterior oropharynx normal, Yes tonsils normal and Yes uvula midline Eyes General: appearance normal, both eyes and all related structures Neck Neck: Yes normal visual inspection and Yes full ROM Chest Chest palpation & inspection: normal inspection of the chest Resp Effort & Inspection: normal respiratory effort and able to speak in complete sentences Cardio Jugular venous distension: no JVD Skin General skin exam: elasticity normal, turgor normal and dry skin Neuro General: patient oriented x3 Assessment & Plan Assessment & Plan (1) Lumbar radiculopathy: Code(s): M54.16 - Radiculopathy, lumbar region Category: Medical (2) Back pain: Code(s): M54.9 - Dorsalgia, unspecified Category: Medical Qualifiers: Back pain location: low back pain Chronicity: chronic Back pain laterality: right Sciatica presence: with sciatica Sciatica laterality: sciatica of right side Qualified Code(s): M54.41 - Lumbago with sciatica, right side; G89.29 - Other chronic pain (3) Patellofemoral arthritis of right knee: Code(s): M17.11 - Unilateral primary osteoarthritis, right knee Category: Medical (4) CRPS (complex regional pain syndrome type I): Code(s): G90.50 - Complex regional pain syndrome I, unspecified Category: Medical Qualifiers: Complex regional pain syndrome affected site: lower extremity Laterality: right Qualified Code(s): G90.521 - Complex regional pain syndrome I of right lower limb Plan She was under care of this office for right knee pain and Complex regional pain syndrome. She get spinal cord stimulator [employer] positioned in the right epidural space gutter. Now she presents with radicular like type pain with radiation to the right lower extremity. She is scheduled for MRI of the lumbar spine. I will see the MRI after she will go for the procedure and I will make a conclusion what is the pain generators . She has inciting events history, she fell on her buttocks recently. X-ray which was performed recently on her lumbar spine did not demonstrate pathological displacement of the spinal cord stimulator lead. I will prescribe her gabapentin 300 mg t.i.d.. I explained to her risks benefits and side effects of gabapentin. Medications: New gabapentin 300 mg PO TID 90 caps 8RF 30 days Discontinued gabapentin Start 100mg at bedtime, after 1 week may increase to 2 if symptoms persist Discontinued Reason: Doctor's Order 100 mg PO BEDTIME 30 days 30 caps 0RF Patient Instructions: I here by testify that I spent 30 minutes in conversation with this patient as well as planning her care and organizing this note. Coding Level of Care Code Est Pt Level 4 (56612) Diagnoses Lumbar radiculopathy M54.16 Chronic right-sided low back pain with right-sided sciatica M54.41; G89.29 Back pain location: low back pain Chronicity: chronic Back pain laterality: right Sciatica presence: with sciatica Sciatica laterality: sciatica of right side Patellofemoral arthritis of right knee M17.11 Complex regional pain syndrome type 1 of right lower extremity G90.521 Complex regional pain syndrome affected site: lower extremity Laterality: right
== END 2024-05-16 11:17 | disposition home or self-care (01) ==
PROVIDERS: PCP Student in an Organized Health Care Education/Training Program; Visit Provider Anesthesiology
DX: M54.16 Radiculopathy, lumbar region (principal); M54.41 Lumbago with sciatica, right side; G89.29 Other chronic pain; M17.11 Unilateral primary osteoarthritis, right knee; G90.521 Complex regional pain syndrome I of right lower limb
CPT/HCPCS: 99214

== ENCOUNTER 2024-05-16 10:25 | Outpatient (REF) | payer OTHER, SELFPAY ==
[2024-05-16 12:38] LABS: Alanine Aminotransferase 16 U/L (0-31); Albumin Level 4.5 g/dL (3.5-5.0); Alkaline Phosphatase 72 U/L (39-117); Anion Gap 14 (12-20); Aspartate Amino Transferase 19 U/L (5-31); Bilirubin Total 0.4 mg/dL (0.0-1.0); Blood Urea Nitrogen 21 mg/dL (9-16); C Reactive Protein 0.17 mg/dL (< or = 0.50); Calcium 9.5 mg/dL (8.4-10.2); Carbon Dioxide 28 mmol/L (22-29); Chloride 102 mmol/L (96-108); Cholesterol 124 mg/dL (<200); Estimated Glomerular Filt Rate > 60; Glucose Random 101 mg/dL (60-115); HDL Cholesterol 45 mg/dL (>40); LDL Cholesterol Calculated 62 mg/dL (<100); Potassium 3.5 mmol/L (3.3-5.1); Sodium 140 mmol/L (135-145); Total Protein 7.8 g/dL (6.5-8.0); Triglycerides 85 mg/dL (<150)
[2024-05-16 12:56] LABS: Erythrocyte Sedimentation Rate 21 MM/HR (0-20); Rheumatoid Factor < 13.0 IU/mL (<15.0)
[2024-05-16 13:11] LABS: Folate 8.7 ng/mL (> or = 4.0); Vitamin B12 432 pg/mL (200-900)
[2024-05-16 13:47] LABS: Estimated Average Glucose 154 mg/dL
[2024-05-17 15:19] LABS: Antibody to SS-A Antigen <1.0 NEG AI (<1.0 NEG); Antibody to SS-B Antigen <1.0 NEG AI (<1.0 NEG); Scleroderma 70 Antibody <1.0 NEG AI (<1.0 NEG)
[2024-05-18 12:02] LABS: Prot Elec - Albumin 4.3 g/dL (3.8-4.8); Prot Elec - Alpha1 0.3 g/dL (0.2-0.3); Prot Elec - Alpha2 0.8 g/dL (0.5-0.9); Prot Elec - Beta 1 0.5 g/dL (0.4-0.6); Prot Elec - Beta 2 0.4 g/dL (0.2-0.5); Prot Elec - Gamma 1.1 g/dL (0.8-1.7); Prot Elec - Total Protein 7.4 g/dL (6.1-8.1)
[2024-05-18 18:18] LABS: Cyclic Citrullinated Peptide <16 UNITS; IgA 149 mg/dL (70-320); IgG 1145 mg/dL (600-1540); IgM 100 mg/dL (50-300)
[2024-05-26 12:19] LABS: Anti Nuclear Antibody Screen NEGATIVE (NEGATIVE)
== END 2024-05-16 10:26 | disposition home or self-care (01) ==
LOC: HO.LAB 10:25
PROVIDERS: Absent Provider Internal Medicine Endocrinology, Diabetes & Metabolism; PCP Student in an Organized Health Care Education/Training Program; Visit Provider Anesthesiology
DX: M54.16 Radiculopathy, lumbar region (principal); M54.41 Lumbago with sciatica, right side; M17.11 Unilateral primary osteoarthritis, right knee; G90.521 Complex regional pain syndrome I of right lower limb; E11.9 Type 2 diabetes mellitus without complications
CPT/HCPCS: 36415; 80053; 80061; 82607; 82746; 82784; 83036; 84165; 85652; 86038; 86140; 86200; 86235; 86334; 86431

== ENCOUNTER 2024-06-16 08:22 | Outpatient (AMB) | payer OTHER, SELFPAY ==
[2024-06-16 08:57] VITALS: BP 128/82; PULSE 84; BMI 24.3
--- NOTE | 2024-06-16 08:57 | MHC.OFFVIS ---
Vital Signs 06/16/24 08:57 Height 5 ft 5 in Weight 145 lb 15.136 oz BMI 24.3 BP 128/82 Blood Pressure Location Lt brachial Position Sitting Pulse 84 Pulse Source Pulse Oximeter Intake Visit Reasons: f/up ett/ holter Confectionery Cooker Required: Yes Confectionery Cooker Language: Orthotist Prosthetist Name: jean claude guzman [id number] Allergies Penicillins [PENICILLINS] Allergy (Unknown, Verified 06/16/24 09:00) HIVES Medication List - Last Reconciled 06/16/24 by BEVERLY Gu acetaminophen (Tylenol) 650 mg (2 x 325 mg) PO Q6H PRN albuterol sulfate 90 mcg/actuation (ProAir HFA) 2 puffs inhalation Q4-6H PRN bisacodyl (Dulcolax (bisacodyl)) 20 mg (4 x 5 mg) PO ONCE 1 day blood sugar diagnostic (FreeStyle Lite Strips) Test blood glucose twice per day blood-glucose meter (FreeStyle Lite Meter kit) As directed flash glucose scanning reader ([employer] [place]) As directed fluticasone propionate 50 mcg/actuation sprays intranasal hydrocortisone 2.5% (Proctosol HC) 1 appl [place] BID-QID PRN ibuprofen 600 mg PO Q8H PRN levothyroxine 112 mcg PO DAILY losartan-hydrochlorothiazide 100-12.5 mg 1 tab PO DAILY metformin ER 500 mg PO BID trishlhrj-rsiwn-fel 118-10-40.8-36 mg (Uribel) 1 tab PO TID 90 days methylcellulose (laxative) (Citrucel) 500 mg PO DAILY montelukast 10 mg PO DAILY nitrofurantoin macrocrystal 50 mg orally use as directed post intercourse; must administer with a meal/food nitrofurantoin monohyd/m-cryst 100 mg (Macrobid) 100 mg PO BID oxybutynin chloride ER 10 mg PO DAILY pantoprazole 40 mg PO DAILY phenazopyridine (Pyridium) 200 mg PO BID 5 days polyethylene glycol 3350 (Miralax) 238 grams PO ONCE rosuvastatin 40 mg PO DAILY sennosides (Natural Senna Laxative) 17.2 mg (2 x 8.6 mg) PO QDAY sitagliptin phosphate (Januvia) 50 mg PO DAILY sulfamethoxazole-trimethoprim 800-160 mg (Bactrim DS) 1 tab PO BID HPI HPI f/up ett/ holter: Details: Sapna is a 63-year-old female past medical history of hypertension, hyperlipidemia, diabetes, atypical chest discomfort, heart palpitations presents for follow-up after recent stress test and Holter monitor. Today she reports that she the pain in her left breast region has improved recently. Is not as sharp as it had been in the past. She denies tenderness to palpation of the area today. No exertional chest discomfort. She has not been having heart palpitations like she previously reported. She is not noticing the strong heartbeat. No sustained rapid or irregular beats reported. No presyncope, syncope, falls. No shortness of breath, PND, orthopnea or edema. She takes all meds as directed. Certified enterprise engineer used. [facility] Medical History Palpitations Non-cardiac chest pain Pelvic pain Leg pain Bladder pain Lower abdominal pain Gross hematuria Toe pain Right knee pain Effusion, right knee Dysuria Pelvic pain in female Hematuria Mass of spine Hematuria Type 2 diabetes mellitus with polyneuropathy DM2 (diabetes mellitus, type 2) Nail deformity Paronychia Failure of spinal cord stimulator Thymoma Pulmonary nodules Thyroid cancer Blood in urine Constipation by delayed colonic transit Tubular adenoma of colon Gastritis Hypertension Dyslipidemia Post-surgical hypothyroidism Primary thyroid cancer Vitamin D deficiency Surgical History History of thymectomy History of back surgery Hx of colonoscopy Hx of thyroidectomy Hx of hernia repair Hx of section Hx of hysterectomy History of esophagogastroduodenoscopy (EGD) Family History Father Stroke Heart attack Mother Diabetes mellitus Family/Other Family history of cancer Sister Stomach cancer Family/Other Thyroid cancer Social History Household Members: Spouse, Children and Other Alcohol intake: unknown Patient Tobacco Use Status: Former Tobacco user Tobacco use type: Cigarette Second Hand Smoke Exposure: No Sexual orientation: Straight/Heterosexual Gender identity: Female Review of Systems Const All systems reviewed & are unremarkable except as noted in HPI and below ENT Denies dizziness Card Reports chest pain, Denies chest pain at rest, Denies chest pain with activity, Denies rapid heart rate, Denies pedal edema, Denies edema, Denies leg edema, Denies lightheadedness, Denies palpitations, Denies dyspnea, Denies dyspnea on exertion and Denies orthopnea Resp Denies cough, Denies dyspnea and Denies dyspnea on exertion GI Denies hematochezia and Denies change in stool character Musc Denies abnormal gait, Denies limited range of motion, Denies muscle cramps, Denies muscle weakness, Denies numbness, Denies radiating pain into limb, Denies stiffness and Denies tingling Neuro Denies abnormal gait, Denies dizziness, Denies numbness and Denies tingling Endo Denies palpitations Physical Exam Vital Signs: Last Vital Signs Pulse 84 06/16/24 08:57 BP 128/82 06/16/24 08:57 BMI result Body Mass Index 24.3 Const General: cooperative, healthy appearing, comfortable and no acute distress Orientation/consciousness: patient oriented x3 Neck Neck: Yes normal visual inspection and Yes no JVD Resp Effort & Inspection: normal respiratory effort Auscultation: clear to auscultation bilaterally, no crackles, no rales, no rhonchi and no wheezes Cardio Jugular venous distension: no JVD Rate: regular rate Rhythm: regular rhythm Heart sounds: S1 normal heart sound present, S2 normal heart sound present, no gallops, no murmurs and no rubs Neuro General: patient oriented x3 Extrem General: Yes normal to inspection, No no pedal edema and No calf tenderness Psych Appearance: grossly normal Mental Status: mental status grossly normal Speech and movement: Normal speech and movement present Assessment & Plan Assessment & Plan (1) Non-cardiac chest pain: Comment: This is reproducible chest pain and is noncardiac in origin. Likely cause musculoskeletal pain. Code(s): R07.89 - Other chest pain Category: Medical Plan: Reports of left-sided chest discomfort, sharp pains to the left breast region which does radiate to her mid chest at times. On last visit she did have some tenderness to palpation. She says she has had a mammogram earlier this year which is normal. No reports of exertional chest discomfort. She does have multiple cardiac risk factors including hypertension, hyperlipidemia and diabetes. Her symptoms sounded noncardiac however she continued to report symptoms and further testing was ordered. She had an exercise stress test 04/27/2024 with exercise 3 minutes 21 seconds and she reported chest discomfort, no EKG changes. She then had a pharmacological nuclear stress test done 05/03/2024 which showed normal myocardial perfusion imaging, normal EF. Today she states that the prior discomfort in her left breast region has improved some. It is not tender on palpation today. She continues to have no chest discomfort with normal day-to-day activities. Spent time reviewing signs and symptoms of angina. Continue with cardiac risk factor modification. Blood pressure is well controlled. Hemoglobin A1c goal less than 7 which is followed by her PCP. [place] LDL goal less than 70 in patient with diabetes. Informed her that if she does have discomfort brought on by physical activity she is to notify our office. Emergency care if ever needed for symptoms. Cardiology follow up as needed. (2) Palpitations: Code(s): R00.2 - Palpitations Category: Medical Plan: Report of intermittent heart palpitations where her heart is beating strong. Vague in describing her symptoms. A Holter monitor had been done on 02/26/2023 for 7 days showing sinus rhythm with average heart rate 89, rare ectopy. Echocardiogram done 11/18/2018 showing EF normal, grade 1 diastolic dysfunction, no valve abnormalities. Previously noted to have hyperthyroidism on labs done 09/08/2023 showing TSH less than 0.01. Her Levothyroxine was reduced. Labs done 02/01/24 showed TSH 2.36. EKG last visit shows SR, rate 88. Repeat Holter monitor done 04/27/2024 for 3 days shows sinus rhythm with average heart rate 89, no significant pauses or arrhythmia. Informed her of this. Today she says she has not been bothered by heart palpitations. Offered reassurance that no concern abnormalities have been identified. (3) Hypertension: Code(s): I10 - Essential (primary) hypertension Category: Medical Plan: Well controlled Plan Time spent on chart review, documentation, interview and assessment Coding Level of Care Code Est Pt Level 3 (75928) Diagnoses Non-cardiac chest pain R07.89 Palpitations R00.2 Hypertension I10 Time Spent (min) 24
== END 2024-06-16 09:24 | disposition home or self-care (01) ==
PROVIDERS: PCP Student in an Organized Health Care Education/Training Program; Visit Provider Nurse Practitioner Family
DX: R07.89 Other chest pain (principal); R00.2 Palpitations; I10 Essential (primary) hypertension
CPT/HCPCS: 99213

== ENCOUNTER → 2024-06-16 08:22 | Outpatient (BNVA) | payer OTHER, SELFPAY | PROVIDERS: PCP Student in an Organized Health Care Education/Training Program; Visit Provider Nurse Practitioner Family ==

== ENCOUNTER 2024-06-17 09:40 | Outpatient (REF) | payer OTHER, SELFPAY | END 2024-06-17 09:41 | disposition home or self-care (01) | LOC: HO.MRI 09:40 | PROVIDERS: PCP Student in an Organized Health Care Education/Training Program; Visit Provider Physical Medicine & Rehabilitation | DX: Z13.89 Encounter for screening for other disorder (principal) ==

== ENCOUNTER 2024-07-04 06:52 | Outpatient (REF) | payer OTHER, SELFPAY ==
[2024-07-04 07:53] LABS: Appearance Urine Cloudy; Color Urine Yellow; Glucose Urine UA Negative (Negative); Leukocyte Esterase Urine Small (1+) (Negative); Nitrite Urine Positive (Negative); PH 6.5 (5.0-9.0); Specific Gravity - Urine 1.015 (1.005-1.025); UMIC TRIGGER UA YES; Urine Blood Negative (Negative); Urine Ketones Negative (Negative); Urine Protein Negative (Neg-Trace)
[2024-07-04 07:58] LABS: Bacteria Urine 4+ (None Seen); Hyaline Casts Urine 0-2 /LPF (0-2); RBC Urine 0-2 /HPF (0-2); Squamous Epithelial Cell Urine >20 /HPF (0-2)
== END 2024-07-04 06:53 | disposition home or self-care (01) ==
LOC: HO.LAB 06:52
PROVIDERS: Absent Provider Internal Medicine Endocrinology, Diabetes & Metabolism; PCP Student in an Organized Health Care Education/Training Program; Visit Provider Urology
DX: N39.0 Urinary tract infection, site not specified (principal); N30.20 Other chronic cystitis without hematuria; R10.2 Pelvic and perineal pain; G89.29 Other chronic pain; C73 Malignant neoplasm of thyroid gland; R82.79 Other abnormal findings on microbiological examination of urine
CPT/HCPCS: 36415; 81001; 84439; 84443; 87086; 87088; 87186

== ENCOUNTER 2024-07-28 13:05 | Outpatient (REF) | payer OTHER, SELFPAY ==
--- NOTE | ~2024-07-28 | CT_ITS ---
EXAMINATION: CT LUMBAR SPINE WITHOUT CONTRAST CLINICAL INFORMATION: Evaluate for disc herniation, patient has spinal cord stimulator COMPARISON: Lumbar spine radiograph 05/04/2024 TECHNIQUE: Noncontrast axial 1.5 and 2 mm sections through the lumbar spine were obtained. Coronal and sagittal reformats were obtained at the acquisition workstation. This CT examination was performed using dose optimization techniques as appropriate, variously including the following: *Automated exposure control *Adjustment of mA and/or kV according to patient size (this includes techniques or standardized protocols for targeted exams where dose is matched to indication/reason for exam; i.e. extremities or head) *Use of iterative reconstruction technique DLP; 386 mGy-cm FINDINGS: No acute fracture involving the lumbar spine. The lumbar vertebral bodies demonstrate normal height. Overall sagittal alignment appears maintained. There is moderate intervertebral disc space narrowing with intradiscal vacuum phenomena and endplate degenerative changes at L5-S1. Again noted generator device in the right gluteal subcutaneous soft tissues with intact stimulator lead terminating within the lumbar spinal canal at the level of L1. The paravertebral soft tissues appear unremarkable. Mild aortoiliac atherosclerosis. Few sigmoid colonic diverticula. Mild degenerative changes involving bilateral sacroiliac joints. T12-L1:No spinal canal or foraminal stenosis. L1-L2: No spinal canal or foraminal stenosis. L2- L3: No spinal canal or foraminal stenosis. L3-L4:No spinal canal or foraminal stenosis.Mild facet arthropathy. L4-L5: Minimal disc bulge. No spinal canal or foraminal stenosis. Mild facet arthropathy. L5-S1: Disc bulge with superimposed left paracentral disc protrusion and left subarticular stenosis. There is likely mass effect on the left S1 traversing nerve root, although not well evaluated on CT. No significant right-sided foraminal stenosis. Moderate to severe bilateral facet arthropathy.Mild right and [id number] left foraminal stenosis. CT/CT lumbar spine wo IV con IMPRESSION: At L5-S1, there is disc bulge with superimposed left paracentral disc protrusion and left subarticular stenosis.There is likely mass effect on the left S1 traversing nerve root, although not well evaluated on CT. Moderate to severe bilateral facet arthropathy.Mild right and [id number] left foraminal stenosis. Mild facet arthropathy at L3-4 and L4-L5.. Electronically signed by: Nicholas Seymour MD 08/05/2024 10:57 AM EDT
== END 2024-07-28 13:06 | disposition home or self-care (01) ==
LOC: HO.CT 13:05
PROVIDERS: PCP Student in an Organized Health Care Education/Training Program; Visit Provider Physical Medicine & Rehabilitation
DX: M54.16 Radiculopathy, lumbar region (principal); M54.41 Lumbago with sciatica, right side; G89.29 Other chronic pain
CPT/HCPCS: 72131

== ENCOUNTER 2024-07-29 12:03 | Emergency (ER) | payer OTHER, SELFPAY ==
--- NOTE | ~2024-07-29 | CT_ITS ---
EXAMINATION: CT HEAD WITHOUT CONTRAST CLINICAL INFORMATION: Occipital headache, grade 8/10 COMPARISON: CT scan of brain on 07/15/2020 TECHNIQUE: Contiguous axial imaging was performed from the skull base to vertex without intravenous administration of contrast. This CT examination was performed using dose optimization techniques as appropriate, variously including the following: *Automated exposure control *Adjustment of mA and/or kV according to patient size (this includes techniques or standardized protocols for targeted exams where dose is matched to indication/reason for exam; i.e. extremities or head) *Use of iterative reconstruction technique DLP: 651 mGy-cm FINDINGS: Ventricles, sulci and cisterns are normal for the patient's age. There is no midline shift, no abnormal intra- or extra- axial fluid accumulation. Wilson and white matter differentiation is normal. Bone window images show no evidence of skull fracture. CT/CT head/brain wo IV con IMPRESSION: 1. Unchanged Normal CT scan of the brain. 2. No intracranial hemorrhage or skull fracture is seen. 3. No evidence of space occupying lesion could be found. 4. The current plain CT scan of the brain shows no diagnostic evidence of acute cerebral infarction. Electronically signed by: Jameson Ambrocio MD 07/29/2024 02:47 PM EDT
--- NOTE | ~2024-07-29 | XR_ITS ---
EXAMINATION: XR CHEST CLINICAL INFORMATION: Chest pain. COMPARISON: Chest radiograph dated February 23, 2024. TECHNIQUE: 2 views of the chest were obtained. FINDINGS: The heart is normal in size. Both lungs are clear. No pleural effusion. No pneumothorax. No acute osseous abnormality. Electrodes project over the lumbar spinal canal. XR/XR chest 2V IMPRESSION: No acute cardiopulmonary disease. Electronically signed by: Thanh Lora DO 07/29/2024 02:28 PM EDT
--- NOTE | 2024-07-29 12:06 | ECG_ITS ---
Test Reason : CHEST PAIN Blood Pressure : / mmHG Vent. Rate : 098 BPM Atrial Rate : 098 BPM P-R Int : 164 ms QRS Dur : 074 ms QT Int : 360 ms P-R-T Axes : 047 002 065 degrees QTc Int : 459 ms Normal sinus rhythm Possible Left atrial enlargement Low voltage QRS Possible Inferior infarct (cited on or before 06-MAY-2023) Cannot rule out Anterior infarct , age undetermined Abnormal ECG When compared with ECG of 06-MAY-2023 05:50, No significant change was found Referred By: Debbie Claudio Electronically Signed By:CHANTEL DEMPSEY
[2024-07-29 12:41] VITALS: BP 127/63; PULSE 96; RESP 16; TEMP 37; O2SAT 98; BMI 24.1
--- NOTE | 2024-07-29 12:41 | ED.CHESTPAIN ---
HPI - Chest Pain General Chief Complaint: Headache Stated Complaint: Headache/Chest pain Time Seen by Provider: 07/29/24 21:25 Source: patient and wad lubricator (Sydnee) Mode of arrival: ambulatory Limitations: language barrier History of Present Illness HPI narrative: 63-year-old female who has a history of diabetes , migraine headaches, presents for evaluation of a 4 day history of headache. Patient states symptoms began gradually. He reports his primarily on the back of the right side of her head, throbbing in nature. She reports it waxes and wanes in intensity but has not resolved completely. She has tried Tylenol ibuprofen with some relief. Due to the persistent symptoms she presents to the emergency department for further evaluation. She denies any vision changes. No nausea or vomiting. Patient confirms that this feels like his migraine headaches (despite triage note). Currently the patient states that her symptoms have somewhat improved. She denies any abdominal pain. No recent URI. No tinnitus. No head trauma. She denies any neck pain. She does have a history of chronic low back pain and has a implantable stimulator. Related Data Home Medications ?Medication ?Instructions ?Recorded ?Confirmed albuterol sulfate 90 mcg/actuation 2 puff inhalation Q4-6H PRN 09/05/22 06/16/24 aerosol inhaler (ProAir HFA) Wheezing metformin 500 mg tablet,extended 500 mg PO BID 11/19/23 06/16/24 release 24 hr fluticasone propionate 50 spray intranasal 03/01/24 06/16/24 mcg/actuation nasal spray,suspension losartan 100 1 tab PO DAILY 03/01/24 06/16/24 mg-hydrochlorothiazide 12.5 mg tablet montelukast 10 mg tablet 10 mg PO DAILY 03/01/24 06/16/24 sitagliptin phosphate 50 mg tablet 50 mg PO DAILY 04/18/24 06/16/24 (Rekha) Previous Rx's ?Medication ?Instructions ?Recorded blood sugar diagnostic (FreeStyle #100 ea 07/09/21 Lite Strips) blood-glucose meter (FreeStyle #1 ea 03/12/22 Lite Meter kit) flash glucose scanning reader #1 ea 04/11/22 (FreeStyle Emile 2 Bernie) pantoprazole 40 mg tablet,delayed 40 mg PO DAILY #90 tabs 01/13/23 release hydrocortisone 2.5 % topical cream 1 appl MN BID-QID PRN hemorrhoids 03/13/23 with perineal applicator #30 grams (Proctosol HC) acetaminophen 325 mg tablet 650 mg (2 x 325 mg) PO Q6H PRN 05/06/23 (Tylenol) pain #14 tabs ibuprofen 600 mg tablet 600 mg PO Q8H PRN pain #14 tabs 05/06/23 methenam 118 mg-m.blue 10 1 tab PO TID 90 days #180 caps 02/01/24 mg-s.phos 40.8 mg-p.salic 36 mg-hyos capsule (Uribel) oxybutynin chloride 10 mg 10 mg PO DAILY #90 tabs 02/01/24 tablet,extended release 24 hr methylcellulose (laxative) 500 mg 500 mg PO DAILY #90 tabs 03/01/24 tablet (Citrucel) rosuvastatin 40 mg tablet 40 mg PO DAILY #60 tabs 03/11/24 nitrofurantoin macrocrystal 50 mg 50 mg PO .COMPLEX #30 caps 04/15/24 capsule nitrofurantoin 100 mg PO BID #14 caps 04/15/24 monohydrate/macrocrystals 100 mg capsule (Macrobid) sulfamethoxazole 800 1 tab PO BID #10 tabs 04/17/24 mg-trimethoprim 160 mg tablet (Bactrim DS) phenazopyridine 200 mg tablet 200 mg PO BID 5 days #10 tabs 05/05/24 (Pyridium) bisacodyl 5 mg tablet,delayed 20 mg (4 x 5 mg) PO ONCE 1 day #4 05/11/24 release (Dulcolax (bisacodyl)) tabs polyethylene glycol 3350 17 238 g PO ONCE #238 grams 05/11/24 gram/dose oral powder (Miralax) sennosides 8.6 mg tablet (Natural 17.2 mg (2 x 8.6 mg) PO QDAY #60 06/06/24 Senna Laxative) tabs levothyroxine 125 mcg tablet 125 mcg PO DAILY #30 tabs 07/04/24 cefuroxime axetil 500 mg tablet 500 mg PO BID 5 days #10 tabs 07/06/24 cranberry 500 mg capsule 500 mg PO BID 30 days #60 caps 07/06/24 fosfomycin tromethamine 3 gram 1 packet PO Q OTHER DAY 3 doses #3 07/06/24 oral packet ea Allergies Allergy/AdvReac Type Severity Reaction Status Date / Time Penicillins [PENICILLINS] Allergy Unknown HIVES Verified 07/29/24 12:45 Review of Systems Constitutional: Constitutional: Reports headache(s) Eyes: Eyes: Denies change in vision ENT: Reports headache(s) Cardiovascular: Cardiovascular: Denies chest pain Respiratory: Respiratory: Denies cough Neurologic: Reports headache(s) PMFSH Past Medical History Medical History Palpitations Non-cardiac chest pain Pelvic pain Leg pain Bladder pain Lower abdominal pain Gross hematuria Toe pain Right knee pain Effusion, right knee Dysuria Pelvic pain in female Hematuria Mass of spine Hematuria Type 2 diabetes mellitus with polyneuropathy DM2 (diabetes mellitus, type 2) Nail deformity Paronychia Failure of spinal cord stimulator Thymoma Pulmonary nodules Thyroid cancer Blood in urine Constipation by delayed colonic transit Tubular adenoma of colon Gastritis Hypertension Dyslipidemia Post-surgical hypothyroidism Primary thyroid cancer Vitamin D deficiency Surgical History History of thymectomy History of back surgery Hx of colonoscopy Hx of thyroidectomy Hx of hernia repair Hx of section Hx of hysterectomy History of esophagogastroduodenoscopy (EGD) Family History Family History Father Stroke Heart attack Mother Diabetes mellitus Family/Other Family history of cancer Sister Stomach cancer Family/Other Thyroid cancer Social History Social History Household Members: Spouse, Children and Other Alcohol intake: unknown Patient Tobacco Use Status: Former Tobacco user Tobacco use type: Cigarette Second Hand Smoke Exposure: No Advance Directives: No Advance Directives Information Provided: No Sexual orientation: Straight/Heterosexual Gender identity: Female Physical Exam Vital Signs: Vital Signs: Last Vital Signs Temp 98.3 F 07/29/24 21:26 Pulse 80 07/29/24 21:26 Resp 16 07/29/24 21:26 BP 130/68 07/29/24 21:26 Pulse Ox 99 07/29/24 21:26 O2 Del Method Room Air 07/29/24 21:26 BMI result Body Mass Index 24.1 Const: General: comfortable, alert and awake HEENT: Other: Pupils are equal round and reactive to light. Extraocular movements are intact. Auditory canals are patent. Pearly TM. Nares are patent. Oropharynx is moist. Tolerate secretions. Neck: Other: No mastoid tenderness bilaterally. There is no spinous or paraspinous tenderness. There is slight tenderness to the trapezius muscles bilaterally, left greater than right. Resp: Auscultation: clear to auscultation bilaterally Cardio: Rate: regular rate Rhythm: regular rhythm Extrem: Right upper extremity: full ROM Course Course Course Narrative: This is a Rapid Medical Examination (RME) performed by Addi Claudio PA-C in triage. Full HPI, ROS, assessment and treatment plan per primary provider in the Main ED. 63 yo burundian speaking female hx of HTN, HDL, anxiety, thyroid CA/ total thyroidectomy, DM, and chronic regional pain syndrome here for eval of posterior headache and upper back pain x3 days. Reports back pain moved into her chest this morning, waking her from her sleep. taking tylenol/ motrin without relief. admits to hx of frontal HAs, states this feels different. reports mild blurred vision to left eye. no vision loss. no trauma/ injury. denies fever, sob, dyspnea, orthopnea, cough. + exam non focal. PERRLA. lungs clear. RRR. Plan: labs, ekg, cxr, ct head Reevaluation(s) Reevaluation #1: 11:30 p.m., July 29, 2024 patient tolerated IV fluids and medications. She reports complete resolution of her symptoms at this time. She is requesting discharge home. Reviewed all discharge instructions. No further questions at this time. Medications Administered Discontinued Medications Generic Name Dose Route Start Last Admin Trade Name Freq PRN Reason Stop Dose Admin Acetaminophen 650 mg 07/29/24 19:51 07/29/24 19:53 Acetaminophen 325 Mg Tablet PO 07/29/24 19:52 650 mg ONCE ONE Administration Sodium Chloride 1,000 mls @ 999 mls/hr 07/29/24 22:00 07/29/24 22:37 Ns IV 07/29/24 23:00 999 mls/hr .Q1H1M JUAN Administration Ketorolac Tromethamine 15 mg 07/29/24 21:46 07/29/24 22:37 Ketorolac Tromethamine 15 Mg/Ml Vial IVPUSH 07/29/24 21:47 15 mg ONCE ONE Administration Metoclopramide HCl 10 mg 07/29/24 21:46 07/29/24 22:37 Metoclopramide Hcl 10 Mg/2 Ml Vial IVPUSH 07/29/24 21:47 10 mg ONCE ONE Administration Medical Decision Making Medical Decision Making [facility] Narrative: 63-year-old female with history of diabetes, migraine headaches, chronic cystitis, a 4 day history of intermittent headache. Consistent with her migraine history. Labs and imaging are unremarkable at this time. No indication for meningitis or other URI symptoms, no sinusitis. Could also be tension headache or musculoskeletal in nature. Patient agreeable to migraine cocktail. There are no focal deficits. No evidence of CVA or TIA. Differential Diagnosis Differential Diagnoses: The differential diagnosis associated with the presentation includes Meningitis Intracranial bleed Tension headache Migraine headache Dehydration Metabolic abnormality Admission/Observation Consideration of admission/observation: Escalation of care including admission/observation considered Lab Data [facility] Lab Attestation statement: I reviewed the patient's lab results. 07/29/24 13:02 07/29/24 13:02 Labs: Lab Results 07/29/24 07/29/24 Range/Units 13:02 17:24 WBC 8.0 (4.8-10.8) X10*3/uL RBC 4.71 (4.20-5.50) X10*6/uL Hgb 11.9 L (12.0-16.0) g/dl Hct 36.7 L (37.0-47.0) % MCV 77.9 L (80.0-98.0) fL MCH 25.3 L (27.0-33.0) pg MCHC 32.4 (31.0-35.0) g/dl RDW 14.3 (11.0-16.0) % Plt Count 253 (160-400) X10*3/uL MPV 10.5 (9.4-12.3) fL Immature Gran % (Auto) 0.3 (0.0-0.4) % Neut % (Auto) 63.4 (45-73) % Lymph % (Auto) 25.0 (20-40) % Spencer % (Auto) 8.1 (2-11) % Eos % (Auto) 1.8 (0-4) % Baso % (Auto) 1.4 (0-2) % Lymph # (Auto) 2.0 (1.2-4.9) X10*3/uL Spencer # (Auto) 0.7 (0.1-1.2) X10*3/uL Eos # (Auto) 0.1 (0.0-0.4) X10*3/uL Baso # (Auto) 0.1 (0.0-0.2) X10*3/uL Abs Immat Gran (auto) 0.02 (0.00-0.03) X10*3/uL Absolute Neuts (auto) 5.1 (2.0-8.3) x10*3/uL Absolute Nucleated RBC 0.000 (0.0-0.012) X10*3/uL Nucleated RBC % (auto) 0.0 (0.0-0.2) /100WBC Sodium 143 (135-145) mmol/L Potassium 4.4 D (3.3-5.1) mmol/L Chloride 106 (96-108) mmol/L Carbon Dioxide 26 (22-29) mmol/L Anion Gap 15 (12-20) BUN 19 H (9-16) mg/dL Creatinine 0.86 (0.5-1.4) mg/dL Estim Creat Clear Calc 58.7 Estimated GFR > 60 Random Glucose 128 H (60-115) mg/dL Calcium 10.3 H D (8.4-10.2) mg/dL Magnesium 2.3 (1.6-2.6) mg/dL Total Bilirubin 0.3 (0.0-1.0) mg/dL AST 21 (5-31) U/L ALT 19 (0-31) U/L Alkaline Phosphatase 78 (39-117) U/L Troponin I High Sens 4.6 4.1 (<3.5-17.0) ng/L Total Protein 8.4 H (6.5-8.0) g/dL Albumin 4.9 (3.5-5.0) g/dL Lipase 37 (8-78) U/L Influenza Type A (PCR) NEGATIVE (Negative) Influenza Type B (PCR) NEGATIVE (Negative) RSV RNA Qual (PCR) NEGATIVE (Negative) SARS-CoV-2 RNA (RT-PCR) NEGATIVE (Negative) Independent Interpretation I performed an independent interpretation of an: EKG (91 beats per minute, sinus, no acute ischemic changes) Radiology Impression Discussion of test interpretation with radiology: I have reviewed the radiologist's reading. Radiologist Impression: [address] [address] XRay Report Signed Patient: Sapna Herzog MR#: [id number] : 1960 Acct:[id number] Age/Sex: 63 / F ADM Date: 07/29/24 Loc: HO.ED Attending Dr: Ordering Physician: Debbie Claudio Date of Service: 07/29/24 Procedure(s): XR chest 2V Accession Number(s): [id number] cc: Yi Thompson MD; Debbie Claudio~ EXAMINATION: XR CHEST CLINICAL INFORMATION: Chest pain. COMPARISON: Chest radiograph dated February 23, 2024. TECHNIQUE: 2 views of the chest were obtained. FINDINGS: The heart is normal in size. Both lungs are clear. No pleural effusion. No pneumothorax. No acute osseous abnormality. Electrodes project over the lumbar spinal canal. XR/XR chest 2V IMPRESSION: No acute cardiopulmonary disease. Electronically signed by: Thanh Lora DO 07/29/2024 02:28 PM EDT Dictated By: Thanh Lora Jr, DO Signed By: <Electronically signed by Thanh Lora Jr, DO in OV> 07/29/24 1428 DD/ 1330 TD/TT: 07/29/24 1335 Commissioner [employer] Resources: SARAH [address] [address] [address] Scan Report Signed Patient: Sapna Herzog MR#: [id number] : 1960 Acct:[id number] Age/Sex: 63 / F ADM Date: 07/29/24 Loc: .ED Attending Dr: Ordering Physician: Debbie Claudio Date of Service: 07/29/24 Procedure(s): CT head/brain wo IV con Accession Number(s): [id number] cc: Yi Thompson MD; Debbie Claudio~ EXAMINATION: CT HEAD WITHOUT CONTRAST CLINICAL INFORMATION: Occipital headache, grade 8/10 COMPARISON: CT scan of brain on 07/15/2020 TECHNIQUE: Contiguous axial imaging was performed from the skull base to vertex without intravenous administration of contrast. This CT examination was performed using dose optimization techniques as appropriate, variously including the following: *Automated exposure control *Adjustment of mA and/or kV according to patient size (this includes techniques or standardized protocols for targeted exams where dose is matched to indication/reason for exam; i.e. extremities or head) *Use of iterative reconstruction technique DLP: 651 mGy-cm FINDINGS: Ventricles, sulci and cisterns are normal for the patient's age. There is no midline shift, no abnormal intra- or extra- axial fluid accumulation. Wilson and white matter differentiation is normal. Bone window images show no evidence of skull fracture. CT/CT head/brain wo IV con IMPRESSION: 1. Unchanged Normal CT scan of the brain. 2. No intracranial hemorrhage or skull fracture is seen. 3. No evidence of space occupying lesion could be found. 4. The current plain CT scan of the brain shows no diagnostic evidence of acute cerebral infarction. Electronically signed by: Jameson Ambrocio MD 07/29/2024 02:47 PM EDT RP Dictated By: Jameson Ambrocio Signed By: <Electronically signed by Jameson Ambrocio in OV> 07/29/24 1447 DD/ 1318 TD/TT: 07/29/24 1326 Commissioner [employer] Resources: Independent Historian Clinical information obtained from an independent historian. History obtained from or confirmed by: Friend External Record Review External record reviewed: Outpatient record Chronic Conditions Patient?s care impacted by: Diabetes Discharge Plan Discharge Clinical Impression: Headache Qualifiers: Headache type: other headache syndrome Qualified Code(s): G44.89 - Other headache syndrome Patient Disposition: Home, Self-Care Instructions: Acute Headache (ED) Additional Instructions: Drink plenty of fluids. Tylenol or ibuprofen as directed for headache. Follow-up with your primary care provider. Call this week to schedule a follow-up appointment. Return to the emergency department if you have any worsening of symptoms, or any concerns. Get well soon! Prescriptions: No Action (DME) FreeStyle Lite Strips Strip See Rx Instructions .ROUTE .MEDSUPPLY Qty: 100 10RF Rx Instructions: Test blood glucose twice per day (DME) FreeStyle Emile 2 [facility] See Rx Instructions .ROUTE .MEDSUPPLY Qty: 1 0RF Rx Instructions: As directed rosuvastatin 40 mg tablet 40 mg PO DAILY Qty: 60 3RF sulfamethoxazole-trimethoprim [Bactrim DS] 800-160 mg tablet 1 tab PO BID Qty: 10 0RF Rx Instructions: Bactrim to replace macrobid phenazopyridine [Pyridium] 200 mg tablet 200 mg PO BID 5 Days Qty: 10 0RF sennosides [Natural Senna Laxative] 8.6 mg tablet 17.2 mg PO QDAY Qty: 60 3RF levothyroxine 125 mcg tablet 125 mcg PO DAILY Qty: 30 4RF fosfomycin tromethamine 3 gram packet 1 packet PO Q OTHER DAY Qty: 3 0RF cefuroxime axetil 500 mg tablet 500 mg PO BID 5 Days Qty: 10 0RF cranberry 500 mg capsule 500 mg PO BID 30 Days Qty: 60 0RF Rx Instructions: administer with meals albuterol sulfate [ProAir HFA] 90 mcg/actuation HFA aerosol inhaler 2 puff INHALATION Q4-6H PRN (Reason: Wheezing) ibuprofen 600 mg tablet 600 mg PO Q8H PRN (Reason: pain) Qty: 14 0RF acetaminophen [Tylenol] 325 mg tablet 650 mg PO Q6H PRN (Reason: pain) Qty: 14 0RF (DME) blood-glucose meter [FreeStyle Lite Meter] Kit See Rx Instructions .ROUTE .MEDSUPPLY Qty: 1 0RF Rx Instructions: As directed pantoprazole 40 mg tablet,delayed release (DR/EC) 40 mg PO DAILY Qty: 90 2RF Rx Instructions: take one tablet half an hour before breakfast hydrocortisone [Proctosol HC] 2.5 % cream with perineal applicator 1 appl MN BID-QID PRN (Reason: hemorrhoids) Qty: 30 2RF bisacodyl [Dulcolax (bisacodyl)] 5 mg tablet,delayed release (DR/EC) 20 mg PO ONCE 1 Days Qty: 4 0RF Rx Instructions: take 4 tabs at noon the day before your colonoscopy polyethylene glycol 3350 [Miralax] 17 gram/dose powder 238 g PO ONCE Qty: 238 0RF Rx Instructions: As directed by gastroenterology department at [facility] nitrofurantoin monohyd/m-cryst [Macrobid] 100 mg capsule 100 mg PO BID Qty: 14 0RF Rx Instructions: must administer with a meal/food nitrofurantoin macrocrystal 50 mg capsule 50 mg PO .COMPLEX Qty: 30 3RF Rx Instructions: 50 mg orally use as directed post intercourse; must administer with a meal/food Uribel 118-10-40.8-36 mg capsule 1 tab PO TID 90 Days Qty: 180 1RF Rx Instructions: administer with plenty of fluids oxybutynin chloride 10 mg tablet extended release 24hr 10 mg PO DAILY Qty: 90 3RF metformin 500 mg tablet extended release 24 hr 500 mg PO BID fluticasone propionate 50 mcg/actuation spray,suspension intranasal losartan-hydrochlorothiazide 100-12.5 mg tablet 1 tab PO DAILY montelukast 10 mg tablet 10 mg PO DAILY Citrucel 500 mg tablet 500 mg PO DAILY Qty: 90 2RF Rx Instructions: take it with full glass of water Januvia 50 mg tablet 50 mg PO DAILY Print Language: Macedonian
[2024-07-29 13:07] LABS: MANUAL DIFF FLAG NO
[2024-07-29 13:08] LABS: Basophils Absolute Auto 0.1 X10*3/uL (0.0-0.2); Basophils Percent Auto 1.4 % (0-2); Eosinophils Absolute Auto 0.1 X10*3/uL (0.0-0.4); Eosinophils Percent Auto 1.8 % (0-4); Hematocrit 36.7 % (37.0-47.0); Hemoglobin 11.9 g/dl (12.0-16.0); Imm Gran Abs Auto 0.02 X10*3/uL (0.00-0.03); Imm Gran Pct Auto 0.3 % (0.0-0.4); Mean Corpuscular HGB Conc 32.4 g/dl (31.0-35.0); Mean Corpuscular Hemoglobin 25.3 pg (27.0-33.0); Mean Corpuscular Volume 77.9 fL (80.0-98.0); Mean Platelet Volume 10.5 fL (9.4-12.3); Monocytes Absolute Auto 0.7 X10*3/uL (0.1-1.2); Monocytes Percent Auto 8.1 % (2-11); Neutrophils Absolute Auto 5.1 x10*3/uL (2.0-8.3); Neutrophils Percent Auto 63.4 % (45-73); Platelet Count 253 X10*3/uL (160-400); Red Blood Count 4.71 X10*6/uL (4.20-5.50); Red Cell Distribution Width 14.3 % (11.0-16.0)
[2024-07-29 13:22] LABS: Alanine Aminotransferase 19 U/L (0-31); Albumin Level 4.9 g/dL (3.5-5.0); Alkaline Phosphatase 78 U/L (39-117); Anion Gap 15 (12-20); Aspartate Amino Transferase 21 U/L (5-31); Bilirubin Total 0.3 mg/dL (0.0-1.0); Blood Urea Nitrogen 19 mg/dL (9-16); Calcium 10.3 mg/dL (8.4-10.2); Carbon Dioxide 26 mmol/L (22-29); Chloride 106 mmol/L (96-108); Creatinine Clr Calc Pharmacy 58.7; Estimated Glomerular Filt Rate > 60; Glucose Random 128 mg/dL (60-115); Lipase 37 U/L (8-78); Magnesium 2.3 mg/dL (1.6-2.6); Potassium 4.4 mmol/L (3.3-5.1); Sodium 143 mmol/L (135-145); Total Protein 8.4 g/dL (6.5-8.0)
[2024-07-29 13:29] LABS: Troponin-I High Sensitivity 4.6 ng/L (<3.5-17.0)
[2024-07-29 13:49] LABS: Influenza A PCR NEGATIVE (Negative); Influenza B PCR NEGATIVE (Negative); Resp Syncy Virus RNA Qual PCR NEGATIVE (Negative); SARS COV2 PCR INHOUSE NEGATIVE (Negative)
[2024-07-29 17:57] LABS: Troponin-I High Sensitivity 4.1 ng/L (<3.5-17.0)
[2024-07-29 19:50] VITALS: BP 140/78; PULSE 97; RESP 20; O2SAT 100
[2024-07-29] MEDS: Acetaminophen 325 MG TABLET 650 MG PO (19:53)
--- OUTSIDE RECORDS SUMMARY | 2024-07-29 19:55 | XMS_ITS | Continuity of Care Document ---
Author Organization [facility] Address [address] [place] [address]- Care Team Providers Care Complaint Investigations Officer Name Role Phone Halsey Bonnie MELO Primary Care Physician Encounter [facility] Date(s): 02/12/24 - 03/13/24 [facility] [address] [place] [address]- Attending Physician: Yulisa Myers Admitting Physician: AdmtrYulisa Referring Physician: AdmtrYulisa Allergies, Adverse Reactions, Alerts Substance Reaction Severity Status penicillins 1 swelling Active 1pt received dose of cefazolin pre-op 07/04. Per RN Reba, pt tolerated without issue Medications atorvastatin 10 mg oral tablet 1 tablet = 10 mg, By Mouth, Daily, 0 Refills, Maintenance, 08/06/20 9:45:00 EDT Start Date: 08/06/20 Status: Ordered ferrous sulfate 325 mg oral tablet 1 tablet = 325 mg, By Mouth, 3 times a day, 0 Refills, Maintenance, 06/03/16 8:40:53 Start Date: 06/03/16 Status: Ordered Fish Oil By Mouth, 0 Refills, Maintenance, 01/20/22 8:56:00 EST, Partial fill upon patient request if the prescription is for a schedule II opioid drug. Start Date: 01/20/22 Status: Ordered Freestyle Lite Monitor See Instructions, # 1 each, Refills 5, Maintenance, use as directed for Type 1 Diabetes Mellitus, 08/24/14 13:21:33, Compound Start Date: 08/24/14 Stop Date: 09/23/14 Status: Ordered gabapentin 300 mg oral capsule 300 mg, 1, capsule, By Mouth, Daily, Refills 0, Maintenance, 08/28/17 10:34:00 Start Date: 08/28/17 Status: Ordered GlipiZIDE By Mouth, Daily, 0 Refills, Maintenance, 12/09/21 11:07:00 EST, Partial fill upon patient request if the prescription is for a schedule II opioid drug. Start Date: 12/09/21 Status: Ordered Hydrochlorothiazide By Mouth, Daily, 0 Refills, Maintenance, 08/06/20 9:46:00 EDT Start Date: 08/06/20 Status: Ordered Hyoscyamine 0 Refills, Maintenance, 12/09/21 11:07:00 EST, Partial fill upon patient request if the prescription is for a schedule II opioid drug. Start Date: 12/09/21 Status: Ordered levothyroxine 175 mcg (0.175 mg) oral tablet 1 tablet = 175 mcg, By Mouth, Daily, NOW 137 mcg, # 30 tablet, 0 Refills, Maintenance, 08/24/14 13:18:58 EDT, Tablet Start Date: 08/24/14 Status: Ordered lidocaine 5% topical cream 0 Refills, Maintenance, 06/03/16 8:41:39 Start Date: 06/03/16 Status: Ordered losartan 50 mg oral tablet 50 mg, 1, tablet, By Mouth, Daily, # 30 tablet, Refills 0, Maintenance, 12/02/16 10:49:13 Start Date: 12/02/16 Status: Ordered Metformin = 1,000 mg, By Mouth, 2 times a day, 0 Refills, Maintenance, 08/24/14 13:24:16 Start Date: 08/24/14 Status: Ordered metoclopramide 5 mg oral tablet 1 tablet = 5 mg, By Mouth, 3 times a day before meals and bedtime, 0 Refills, Maintenance, 168:40:19 Start Date: 06/03/16 Status: Ordered metoprolol 50 mg oral tablet 50 mg, 1, tablet, By Mouth, 2 times a day, Refills 0, Maintenance, 08/06/20 9:46:00 EDT Start Date: 08/06/20 Status: Ordered Multivitamin Daily, 0 Refills, Maintenance, 12/09/21 11:09:00 EST, Partial fill upon patient request if the prescription is for a schedule II opioid drug. Start Date: 12/09/21 Status: Ordered omeprazole 20 mg oral delayed release tablet 1 tablet = 20 mg, By Mouth, 2 times a day, # 60 tablet, 0 Refills, Maintenance, 06/12/15 9:41:20, EC Tablet Start Date: 06/12/15 Status: Ordered pantoprazole 40 mg oral delayed release tablet 1 tablet = 40 mg, By Mouth, Daily, # 30 tablet, 0 Refills, Maintenance, 08/28/17 10:33:06, EC Tablet Start Date: 08/28/17 Status: Ordered pravastatin 40 mg oral tablet 1 tablet = 40 mg, By Mouth, Daily, # 30 tablet, 0 Refills, Maintenance, 08/28/17 10:33:31, Tablet Start Date: 08/28/17 Status: Ordered tiZANidine 2 mg oral tablet 2 mg, 1, tablet, By Mouth, 3 times a day, PRN, not to exceed 3 doses/day, # 42 tablet, Refills 0, Tot. Refills 0, Maintenance, Spasm, 01/07/22 16:35:00 EST, Print Requisition, Partial fill upon patient request if the prescription is for a schedule II... Start Date: 01/07/22 Stop Date: 01/21/22 Status: Ordered tolterodine 2 mg oral capsule, extended release 1 capsule = 2 mg, By Mouth, Daily, # 90 capsule, 0 Refills, Maintenance, 01/07/22 12:05:00 EST, CR Capsule, Partial fill upon patient request if the prescription is for a schedule II opioid drug. Start Date: 01/07/22 Status: Ordered Topiramate By Mouth, 0 Refills, Maintenance, 08/06/20 9:46:00 EDT Start Date: 08/06/20 Status: Ordered Tradjenta 5 mg oral tablet 1 tablet = 5 mg, By Mouth, Daily, # 30 tablet, 0 Refills, Maintenance, 01/07/22 12:05:00 EST, Tablet, Partial fill upon patient request if the prescription is for a schedule II opioid drug. Start Date: 01/07/22 Status: Ordered Vitamin D3 By Mouth, Daily, 0 Refills, Maintenance, 08/06/20 9:46:00 EDT Start Date: 08/06/20 Status: Ordered Zofran 4 mg oral tablet 1 tablet = 4 mg, By Mouth, Every 8 hours, PRN Nausea & Vomiting, # 10 tablet, 0 Refills, Maintenance, 07/13/15 22:39:46, Tablet Start Date: 07/13/15 Status: Ordered Problem List Condition Confirmation Course Effective Dates Status H ealth Status Informant Acquired hypothyroidism Confirmed Active Cystocele Confirmed Active Diabetes Confirmed Active GERD (gastroesophageal reflux disease) Confirmed Active History of thyroid cancer Confirmed Active Hypertension Confirmed Active Thymoma - Type AB, [place] Stage II Confirmed Active Urinary incontinence Confirmed Active Social History Social History Type Response Smoking Status Former smoker; Tobac co user in household: No entered on: 07/19/15 Sex Patient Care team information Care Team Personnel Name: Saniya MELO , Bonnie Milner Position: [facility] Outreach Member Role: PCP Address: Address: [address] [place] [address] [place] [address]- Care Team Related Persons Name: BROWN LEVY Address: [address] [address] Name: KATYA ALEGRE Address: [address] [address] Name: SAAD ALEGRE
--- OUTSIDE RECORDS SUMMARY | 2024-07-29 19:55 | XMS_ITS | Continuity of Care Document ---
Author Organization [facility] Address [address] [place] [address]- Care Team Providers Care Auditor Internal Name Role Phone Bonnie Kothari MD Primary Care Physician Encounter [facility] [place] Date(s): 10/24/22 - 02/21/23 [facility] [address] [place] [address]- Attending Physician: Mary Lopez MD Admitting Physician: Mary Lopez MD Referring Physician: Bnonie Kothari MD Allergies, Adverse Reactions, Alerts Substance Reaction Severity [...] Care team information Care Team Personnel Name: Bonnie Kothari MD Position: [facility] Outreach Member Role: PCP Address: Address: [address] [place] [address] [address] [place] [address]- Care Team Related Persons Name: BROWN LEVY Address: home [address] [address] Name: KATYA ALEGRE Address: [address] [address] Name: SAAD ALEGRE
[2024-07-29 21:26] VITALS: BP 130/68; PULSE 80; RESP 16; TEMP 36.8; O2SAT 99
[2024-07-29] MEDS: 0.9 % Sodium Chloride 1,000 ML 999 ML IV (22:37)
[2024-07-29] MEDS: Ketorolac Tromethamine 15 MG/ML VIAL IVPUSH (22:37)
[2024-07-29] MEDS: Metoclopramide HCl 10 MG/2 ML VIAL IVPUSH (22:37)
[2024-07-30 00:27] VITALS: BP 147/84; PULSE 92; RESP 16; TEMP 36.8; O2SAT 99
== END 2024-07-30 00:30 | disposition home or self-care (01) ==
PROVIDERS: Physician Assistant Medical; Emergency Provider Emergency Medicine Emergency Medical Services; PCP Student in an Organized Health Care Education/Training Program
DX: G44.89 Other headache syndrome (principal); Z03.818 Encounter for observation for suspected exposure to other biological agents ruled out; E11.9 Type 2 diabetes mellitus without complications; I10 Essential (primary) hypertension; E78.5 Hyperlipidemia, unspecified; Z79.02 Long term (current) use of antithrombotics/antiplatelets; Z79.899 Other long term (current) drug therapy; Z79.84 Long term (current) use of oral hypoglycemic drugs
CPT/HCPCS: 0241U; 36415; 70450; 71046; 80053; 83690; 83735; 84484; 85025; 93005; 96361; 96374; 96375; 99284; J1885; J2765

== ENCOUNTER 2024-08-01 08:19 | Outpatient (AMB) | payer OTHER, SELFPAY ==
--- NOTE | 2024-08-01 08:34 | A.OFFVIS_ITS ---
Intake Visit Reasons: 6m follow up Intake Note: Patient presents today for 6m f/u Meds- Pyridium, Oxybutyin, bactrim Allergies to Antibiotic- Penicillins Blood Thinner- None Journal Entry Audit Clerk Required: Yes Journal Entry Audit Clerk Name: Gerardo [id number] Information Interpreted: non-clinical & clinical Accompanied by: Self / Same As Patient Allergies Penicillins [PENICILLINS] Allergy (Unknown, Verified 08/01/24 08:37) HIVES Medication List - Last Reconciled 08/01/24 by Analy Campos MD acetaminophen (Tylenol) 650 mg (2 x 325 mg) PO Q6H PRN albuterol sulfate 90 mcg/actuation (ProAir HFA) 2 puffs inhalation Q4-6H PRN bisacodyl (Dulcolax (bisacodyl)) 20 mg (4 x 5 mg) PO ONCE 1 day blood sugar diagnostic (FreeStyle Lite Strips) Test blood glucose twice per day blood-glucose meter (FreeStyle Lite Meter kit) As directed cranberry 500 mg PO BID 30 days flash glucose scanning reader (The [employer] Emile 2 Notrees) As directed fluconazole 150 mg PO ONCE fluticasone propionate 50 mcg/actuation sprays intranasal hydrocortisone 2.5% (Proctosol HC) 1 appl [place] BID-QID PRN ibuprofen 600 mg PO Q8H PRN levothyroxine 125 mcg PO DAILY losartan-hydrochlorothiazide 100-12.5 mg 1 tab PO DAILY metformin ER 500 mg PO BID cora-jenny-briannafodo-qfmbx-jho 118-10-40.8-36 mg (Uribel) 1 tab PO TID 90 days methylcellulose (laxative) (Citrucel) 500 mg PO DAILY montelukast 10 mg PO DAILY nitrofurantoin macrocrystal 50 mg orally use as directed post intercourse; must administer with a meal/food oxybutynin chloride ER 10 mg PO DAILY pantoprazole 40 mg PO DAILY phenazopyridine (Pyridium) 200 mg PO BID 5 days polyethylene glycol 3350 (Miralax) 238 grams PO ONCE rosuvastatin 40 mg PO DAILY sennosides (Natural Senna Laxative) 17.2 mg (2 x 8.6 mg) PO QDAY sitagliptin phosphate (Januvia) 50 mg PO DAILY HPI Comments Details: 08/01/24--Sapna is being followed for recurrent UTIs, interstitial cystitis and related symptoms of pelvic pain and urgency. She was last treated for UTI symptoms with antibiotics in June, she denies dysuria but complains of vaginal itching. She is taking oxybutynin 10 mg daily. Nitrofurantoin 50 mg post sexual activity. I Will send diflucan to pharm. Review of chart: 04/15/2024--Sapna is being followed for recurrent UTIs, interstitial cystitis and related symptoms of pelvic pain and urgency. She called to be seen today because of pelvic pain. She states for about 8 days she has been off and on having pain with urination. She states that she forgot to take the prophylactic antibiotics with intercourse. Urinalysis evaluated is nitrite positive. I will send urine for culture. I will empirically start Macrobid 100 mg twice a day for 7 days pending urine culture. In review of her chart the patient had a CT scan abdomen pelvis with contrast ordered by another provider for complaints of abdominal pain. I have reviewed the results kidneys duplicated right renal system no hydronephrosis no renal calculi. Will continue low dose macrobid post intercourse, tylenol and/or OTC NSAID prn, Cont Uribel TID, continue oxybutynin 10 mg qhs. 02/01/24-Sapna is a 62-year-old female who presents today to the office for a follow-up. Sapna is followed due to bladder pain syndrome. She has been treated with bladder installations heparin lidocaine and Solu-Medrol. The patient is a Albanian speaking female. Certified medical affairs manager was present during the visit. PMH includes --hypertension, diabetes, h/o thyroid cancer, followed by endocrine. I had previously discussed use of pyridium prior to intercourse and low dose macrobid post intercourse, tylenol and/or OTC NSAID prn. She was prescribed uribel. The patient states the her bladder pain is much better, but not gone. 03/17/23--Out patient cystoscopy bladder biopsy-- bladder findings, erythematous flattened changes, pathology chronic cystitis with muscularis propria present. 04/23/22-- urine cytology- negative for malignant cells [facility] Medical History Palpitations Non-cardiac chest pain Pelvic pain Leg pain Bladder pain Lower abdominal pain Gross hematuria Toe pain Right knee pain Effusion, right knee Dysuria Pelvic pain in female Hematuria Mass of spine Hematuria Type 2 diabetes mellitus with polyneuropathy DM2 (diabetes mellitus, type 2) Nail deformity Paronychia Failure of spinal cord stimulator Thymoma Pulmonary nodules Thyroid cancer Blood in urine Constipation by delayed colonic transit Tubular adenoma of colon Gastritis Hypertension Dyslipidemia Post-surgical hypothyroidism Primary thyroid cancer Vitamin D deficiency Surgical History History of thymectomy History of back surgery Hx of colonoscopy Hx of thyroidectomy Hx of hernia repair Hx of section Hx of hysterectomy History of esophagogastroduodenoscopy (EGD) Family History Father Stroke Heart attack Mother Diabetes mellitus Family/Other Family history of cancer Sister Stomach cancer Family/Other Thyroid cancer Social History Household Members: Spouse, Children and Other Alcohol intake: unknown Patient Tobacco Use Status: Former Tobacco user Tobacco use type: Cigarette Second Hand Smoke Exposure: No Sexual orientation: Straight/Heterosexual Gender identity: Female Review of Systems Const All systems reviewed & are unremarkable except as noted in HPI and below Reports no additional complaints Eyes Reports no additional complaints ENT Reports no additional complaints Card Reports no additional complaints Resp Reports no additional complaints GI Reports no additional complaints Reports as per HPI Musc Reports no additional complaints Skin/Breast Reports system reviewed and no additional complaints, except as documented Neuro Reports no additional complaints Psych Reports no additional complaints Endo Reports no additional complaints Je/Lymph Reports no additional complaints Aller/Immun Reports no additional complaints Results AMB Urinalysis, Automated UA Leukoctes 15 Gigi/uL Last Edit by TIFFANI Almonte on 08/01/24 08:52 UA Nitrite Negative Last Edit by TIFFANI Almonte on 08/01/24 08:52 UA Urobilinogen 0.2 mg/dL Last Edit by TIFFANI Almonte on 08/01/24 08:5 2 UA Protein 15 mg/dL Last Edit by TIFFANI Almonte on 08/01/24 08:52 UA pH 6.0 Last Edit by TIFFANI Almonte on 08/01/24 08:52 UA Blood 10 Scott/uL Last Edit by TIFFANI Almonte on 08/01/24 08:52 UA Specific [place] 1.015 Last Edit by Mina Mcclain CCM on 08/01/24 08: 52 UA Ketone Negative Last Edit by TIFFANI Almonte on 08/01/24 08:52 UA Bilirubin 0 mg/dL Last Edit by TIFFANI Almonte on 08/01/24 08:52 UA Glucose 0 mg/dL Last Edit by TIFFANI Almonte on 08/01/24 08:52 Results Reviewed Results Reviewed: Laboratory Last Values Urine pH (Auto) 6.0 08/01/24 08:51 Specific [place] (Auto) 1.015 08/01/24 08:51 Urine Protein (Auto) 15 mg/dL 08/01/24 08:51 Glucose (UA)(Auto) 0 mg/dL 08/01/24 08:51 Urine Ketones (Auto) Negative 08/01/24 08:51 Urine Blood (Auto) 10 Scott/uL 08/01/24 08:51 Urine Nitrite (Auto) Negative 08/01/24 08:51 Urine Bilirubin (Auto) 0 mg/dL 08/01/24 08:51 Urine Urobilinogen (Auto) 0.2 mg/dL 08/01/24 08:51 Leukocyte Esterase (Auto) 15 Gigi/uL 08/01/24 08:51 Date of Service: 03/09/24 CT ABDOMEN AND PELVIS WITH CONTRAST CLINICAL INFORMATION: Abdominal pain COMPARISON: CT scan of abdomen and pelvis on 11/15/2023 TECHNIQUE: Multidetector volumetric images were obtained from the superior aspect of the liver through the pubic symphysis following administration 85 mL of Omnipaque 350 intravenous contrast. Sagittal and coronal reformatted images were obtained on the technologist's workstation. Oral contrast: No This CT examination was performed using dose optimization techniques as appropriate, variously including the following: *Automated exposure control *Adjustment of mA and/or kV according to patient size (this includes techniques or standardized protocols for targeted exams where dose is matched to indication/reason for exam; i.e. extremities or head) *Use of iterative reconstruction technique DLP: 288 mGy-cm FINDINGS: LUNG BASES: A stable 0.5 cm calcified granuloma is seen at posterior pleural border of right lower lobe posterior basal segment. LIVER: No focal lesion is seen in the liver. GALLBLADDER AND BILIARY TREE: Gallbladder appears unremarkable without calcified stones. Common bile duct is not dilated. SPLEEN: The spleen is normal in size without focal lesion. PANCREAS: The pancreas appears unremarkable. ADRENAL GLANDS: Adrenal glands are normal in size without focal lesion bilaterally. KIDNEYS: Bilateral kidneys are normal in size without focal lesion. 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 BOWELS: There is normal filling of stomach and small bowel loops with oral contrast down to proximal pelvic ileum. RETROPERITONEUM: No abnormally enlarged retroperitoneal lymph nodes, mass or hematoma could be seen. BLOOD VESSELS: Abdominal aorta is normal in size with scattered atherosclerotic calcifications and smoothly patent. ABDOMINAL WALL: Abdominal subcutaneous tissue and muscle are intact. No evidence of ventral hernia. PERITONEUM: There was no ascites. There were no abdominal peritoneal inflammatory changes seen. No free peritoneal air was seen. No abnormally enlarged mesenteric lymph nodes are found. BONES: Mild posterior L4-L5 and L5-S1 disc protrusions, advanced L5-S1 degenerative lumbar disc disease are seen. No fracture or dislocation. No focal bone lesion diagnostic of metastatic disease could be seen in the lumbar region. EXAMINATION: CT pelvis. FINDINGS: URINARY BLADDER: Urinary bladder fills normally with urine. BOWELS: There is no abnormal dilatation of the large and small bowel loops. Normal caliber appendix is seen projecting medial and inferior to the cecum with intraluminal high density material, most prominent in the bulbous distal end. Inspissated barium is again visualized in the sigmoid colon diverticula. GENITAL ORGANS: No adnexal mass lesion could be seen. The uterus is surgically absent. LYMPH NODES: No abnormally enlarged iliac or inguinal lymph nodes are seen. PERITONEUM: No inflammatory changes, ascites or free peritoneal air are found in the pelvis. BONES: No fracture or dislocation. No focal bone lesion diagnostic of metastatic disease could be seen in the pelvis. Right posterior gluteal nerve stimulator device is seen at L5-S1 junction, with electrode entering the spinal canal at the same level ending at L1. IMPRESSION: 1. Interval resolution of proximal jejunitis. No evidence of acute intra-abdominal or pelvic process. 2. Unchanged duplicated right renal collecting systems. 3. Unchanged, Status post hysterectomy. 4. No evidence of bowel obstruction or inflammatory changes. Unchanged sigmoid colon diverticulosis. 5. Interval appearance of dense content in the appendicular lumen, compatible with inspissated barium or appendicolith. 6. No interval change in position of right gluteal nerve stimulator and stimulator wire. Date of Service: 01/11/23 EXAMINATION: CT abdomen pelvis w IV con CLINICAL INFORMATION: Reason for Exam epigastric/LLQ abd pain, N COMPARISON: Prior CT scan July 2022 FINDINGS: LOWER THORAX: Included lung bases are clear. HEPATOBILIARY: No focal hepatic lesions. No biliary ductal dilatation. GALLBLADDER: Gallbladder distended, otherwise unremarkable. SPLEEN: Spleen is normal in size. PANCREAS: No focal mass or ductal dilatation. STOMACH AND GASTROINTESTINAL TRACT: Stomach is grossly unremarkable. There is no bowel distention or thickening. No CT evidence of appendicitis. Mild diverticulosis without evidence of acute diverticulitis. ADRENALS: No adrenal nodules. KIDNEYS/URETERS: No hydronephrosis, stones or solid mass lesions. URINARY BLADDER: Partially decompressed. PELVIC VISCERA: Unremarkable PERITONEUM: No free air or fluid. LYMPH NODES: Few mildly prominent mesenteric lymph nodes right lower quadrant the short axis is less than 1 cm, there are not significantly enlarged. VASCULAR:Abdominal aorta normal in size, no aneurysm found. BONES, ABDOMINAL WALL AND SOFT TISSUES: There is a baclofen pump embedded in the subcutaneous fat posterior back the catheter of which is in the spinal central canal the tip of the level of L1 right of midline. IMPRESSION:? *? No CT evidence of acute intra-abdominal process to explain patient's pain symptoms. ? *? Mild diverticulosis without evidence of acute diverticulitis. ? *? Few mildly prominent mesenteric lymph nodes right lower quadrant the short axis is less than 1 cm. Not significantly enlarged. No evidence of inflammation or appendicitis. ? *? Baclofen pump embedded in the subcutaneous fat posterior back the catheter of which is in the spinal canal the tip of which is in the level of L1 right of midline. 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 Diflucan 150 mg x one dose, fu in 6 months Orders: Orders AMB Urinalysis Automated Today Z13.9 - Encounter for screening, unspecified Medications: New fluconazole 150 mg PO ONCE 1 tab 0RF vaginal itching Refilled nitrofurantoin macrocrystal 50 mg orally use as directed post intercourse; must administer with a meal/food 30 caps 3RF oxybutynin chloride ER 10 mg PO DAILY 90 tabs 3RF Patient Instructions: The patient had an opportunity to ask questions regarding treatment plan. The patient expressed understanding and agreement with the above treatment plan. The patient is aware they should contact our office by phone for worsening of their current condition or the appearance of new symptoms. Compliance is encouraged with any medications and followup testing that is ordered. It is a privilege to be allowed the opportunity to participate in the urologic care of your patient. If you have any questions or concerns regarding treatment for the above conditions please do not hesitate to contact me. The office telephone contact is [phone]. This note is constructed in part using voice recognition software. While every effort has been made to ensure accuracy freight engineer errors may have been included. Yours sincerely, Analy Campos MD Coding Level of Care Code Est Pt Level 4 (36787) Diagnoses Chronic cystitis N30.20 Dysuria R30.0 Bladder pain R39.89 Pelvic pain R10.2 Dyspareunia in female N94.10 Acute UTI N39.0 Duplex kidney Q63.8 Vaginitis N76.0
== END 2024-08-01 09:35 | disposition home or self-care (01) ==
PROVIDERS: PCP Student in an Organized Health Care Education/Training Program; Visit Provider Urology
DX: N30.20 Other chronic cystitis without hematuria (principal); R30.0 Dysuria; R39.89 Other symptoms and signs involving the genitourinary system; R10.2 Pelvic and perineal pain; N94.10 Unspecified dyspareunia; N39.0 Urinary tract infection, site not specified; Q63.8 Other specified congenital malformations of kidney; N76.0 Acute vaginitis; Z13.9 Encounter for screening, unspecified
CPT/HCPCS: 99214

== ENCOUNTER → 2024-08-01 08:19 | Outpatient (BNVA) | payer OTHER, SELFPAY | PROVIDERS: PCP Student in an Organized Health Care Education/Training Program; Visit Provider Urology | DX: N30.20 Other chronic cystitis without hematuria (principal); R30.0 Dysuria; R39.89 Other symptoms and signs involving the genitourinary system; R10.2 Pelvic and perineal pain; N94.10 Unspecified dyspareunia; N76.0 Acute vaginitis; Q63.8 Other specified congenital malformations of kidney; Z79.899 Other long term (current) drug therapy | CPT/HCPCS: 81003 ==

== ENCOUNTER 2024-08-04 09:46 | Outpatient (AMB) | payer OTHER, SELFPAY ==
--- NOTE | 2024-08-04 10:01 | MHC.OFFVIS ---
Intake Visit Reasons: OV- MRI/CT review lumbar spine Intake Note: Sapna is a 63 year old female who presents to the office today for a MRI/CT review lumbar spine. The patient reports more pain in the back of her head and her spine. She reports headaches as well. Fuse Cutter Required: Yes Fuse Cutter Services: Fuse Cutter Present Fuse Cutter Name: [id number] Allergies Penicillins [PENICILLINS] Allergy (Unknown, Verified 08/04/24 10:09) HIVES Medication List - Last Reconciled 08/04/24 by Yumiko Sanchez RN acetaminophen (Tylenol) 650 mg (2 x 325 mg) PO Q6H PRN albuterol sulfate 90 mcg/actuation (ProAir HFA) 2 puffs inhalation Q4-6H PRN bisacodyl (Dulcolax (bisacodyl)) 20 mg (4 x 5 mg) PO ONCE 1 day blood sugar diagnostic (FreeStyle Lite Strips) Test blood glucose twice per day blood-glucose meter (FreeStyle Lite Meter kit) As directed cranberry 500 mg PO BID 30 days flash glucose scanning reader ([employer] [place]) As directed fluconazole 150 mg PO ONCE fluticasone propionate 50 mcg/actuation sprays intranasal hydrocortisone 2.5% (Proctosol HC) 1 appl PA BID-QID PRN ibuprofen 600 mg PO Q8H PRN levothyroxine 125 mcg PO DAILY losartan-hydrochlorothiazide 100-12.5 mg 1 tab PO DAILY metformin ER 500 mg PO BID trishldln-tcxka-vge 118-10-40.8-36 mg (Uribel) 1 tab PO TID 90 days methylcellulose (laxative) (Citrucel) 500 mg PO DAILY methylcellulose (laxative) (Citrucel) 500 mg PO DAILY montelukast 10 mg PO DAILY nitrofurantoin macrocrystal 50 mg orally use as directed post intercourse; must administer with a meal/food oxybutynin chloride ER 10 mg PO DAILY pantoprazole 40 mg PO DAILY phenazopyridine (Pyridium) 200 mg PO BID 5 days polyethylene glycol 3350 (Miralax) 238 grams PO ONCE rosuvastatin 40 mg PO DAILY sennosides (Natural Senna Laxative) 17.2 mg (2 x 8.6 mg) PO QDAY sitagliptin phosphate (Januvia) 50 mg PO DAILY HPI Comments Details: Chronic back pain, always radiated to the right side. Diagnosis of CRPS affecting right lower extremity, diagnosis made by pain management, spinal cord stimulator placed 2022. Patient says she was doing well up until she fell 04/19/2023. Did not seek any Urgent Care at that time. X-rays today did not show acute fractures. Her symptoms were mainly on right lower back and right lower extremity. Lumbar x-rays did show mild disc space narrowing L5-S1. CT scan done for further management (CT scan instead of MRI done per pain management's recommendation as she has medical stimulator). Here to discuss results. She was seen with Dr. Gee 05/16/2024. Follow up pending after CT scan results. She continues to have same right sided back pain but it seems to spread downwards and even bothers upper back nowadays, causing some kind of headache. She had gone to ER for the headache, CT scan head done, see below, no acute findings. [facility] Medical History Palpitations Non-cardiac chest pain Pelvic pain Leg pain Bladder pain Lower abdominal pain Gross hematuria Toe pain Right knee pain Effusion, right knee Dysuria Pelvic pain in female Hematuria Mass of spine Hematuria Type 2 diabetes mellitus with polyneuropathy DM2 (diabetes mellitus, type 2) Nail deformity Paronychia Failure of spinal cord stimulator Thymoma Pulmonary nodules Thyroid cancer Blood in urine Constipation by delayed colonic transit Tubular adenoma of colon Gastritis Hypertension Dyslipidemia Post-surgical hypothyroidism Primary thyroid cancer Vitamin D deficiency Surgical History History of thymectomy History of back surgery Hx of colonoscopy Hx of thyroidectomy Hx of hernia repair Hx of section Hx of hysterectomy History of esophagogastroduodenoscopy (EGD) Family History Father Stroke Heart attack Mother Diabetes mellitus Family/Other Family history of cancer Sister Stomach cancer Family/Other Thyroid cancer Social History Household Members: Spouse, Children and Other Alcohol intake: unknown Patient Tobacco Use Status: Former Tobacco user Tobacco use type: Cigarette Second Hand Smoke Exposure: No Sexual orientation: Straight/Heterosexual Gender identity: Female Physical Exam Constitutional: Patient appears to be in no acute distress, well nourished and well developed. Patient was appropriately conversant and oriented. Appears much more comfortable compared to previous visits. MSK: No specific abnormalities found on inspection of the spine and all extremities. Lumbar ROM was full. Bilateral hip, knee and ankle ROM WNL. No ligamentous laxity or crepitance. No increased effusion. Neurological: Neurologic examination of the upper and lower extremities was nonfocal with intact sensation, muscle stretch reflexes and without focal motor deficits . Gutierrez?s negative bilaterally. Babinski was down going bilaterally. Clonus was negative. Gait is non-antalgic without loss of balance. Results Reviewed Results Reviewed: Ordering Physician: Sandra Yanez Date of Service: 05/04/24 Procedure(s): XR lumbar spine 2-3V Accession Number(s): [id number] cc: Sandra Yanez~ EXAMINATION: XR LUMBAR SPINE XR HIP, BILATERAL CLINICAL INFORMATION: Fall, evaluate for fracture, back pain. COMPARISON: CT abdomen and pelvis of March 09, 2024. MRI lumbar spine May 01, 2022. X-ray lumbar spine October 25, 2021. TECHNIQUE: 3 views of the lumbar spine. 2 views of each hip. FINDINGS: Lumbar Spine: There are 5 mil-avf-hzwgzef lumbar-type vertebral bodies. Redemonstration of electronic device overlying right iliac wing with lead overlying the posterior aspect of L1-L2 level of lumbar spine. Slight rightward curvature of the lumbar spine. Facet arthritis in the lower lumbar spine. Lumbar vertebral body heights are preserved. Advanced degenerative changes with loss of disc space height at L5-S1. Facet arthritis in the lower spine. Bilateral Hips: Bilateral hip alignment is maintained. Mild to moderate degenerative changes in the right hip with narrowing of the joint space and hypertrophic changes with amorphous calcifications adjacent to the greater trochanter. Mild degenerative changes in the left hip with joint space narrowing and hypertrophic change. XR/XR lumbar spine 2-3V IMPRESSION: 1. Advanced degenerative disc disease at L5-S1. 2. Facet arthritis in the lower lumbar spine. 3. Vgoc-kw-nnubzzql degenerative changes in the right hip. 4. Mild degenerative changes in the left hip. Additional imaging with CT scan or MRI should be considered for further evaluation if there is clinical concern for fracture or other underlying pathology. Ordering Physician: Debbie Claudio Date of Service: 07/29/24 Procedure(s): CT head/brain wo IV con Accession Number(s): [id number] cc: Yi Thompson MD; Debbie Claudio~ EXAMINATION: CT HEAD WITHOUT CONTRAST CLINICAL INFORMATION: Occipital headache, grade 8/10 COMPARISON: CT scan of brain on 07/15/2020 TECHNIQUE: Contiguous axial imaging was performed from the skull base to vertex without intravenous administration of contrast. This CT examination was performed using dose optimization techniques as appropriate, variously including the following: *Automated exposure control *Adjustment of mA and/or kV according to patient size (this includes techniques or standardized protocols for targeted exams where dose is matched to indication/reason for exam; i.e. extremities or head) *Use of iterative reconstruction technique DLP: 651 mGy-cm FINDINGS: Ventricles, sulci and cisterns are normal for the patient's age. There is no midline shift, no abnormal intra- or extra- axial fluid accumulation. Wilson and white matter differentiation is normal. Bone window images show no evidence of skull fracture. CT/CT head/brain wo IV con IMPRESSION: 1. Unchanged Normal CT scan of the brain. 2. No intracranial hemorrhage or skull fracture is seen. 3. No evidence of space occupying lesion could be found. 4. The current plain CT scan of the brain shows no diagnostic evidence of acute cerebral infarction. Electronically signed by: Jameson Ambrocio MD 07/29/2024 02:47 PM EDT Assessment & Plan Assessment & Plan (1) Lumbar radiculopathy: Code(s): M54.16 - Radiculopathy, lumbar region Category: Medical (2) CRPS (complex regional pain syndrome type I): Code(s): G90.50 - Complex regional pain syndrome I, unspecified Category: Medical Qualifiers: Complex regional pain syndrome affected site: lower extremity Laterality: right Qualified Code(s): G90.521 - Complex regional pain syndrome I of right lower limb Plan Chronic right-sided back pain. CT scan images reviewed with patient, showing decreased disc space L5-S1 possible disc herniation? Official reading not yet done. Recall to [facility] to request. Patient to follow up with pain management for further intervention/injection. 2. Pain management given to patient. Patient mentions headache. Referring to neurology for further management. Assessment and plan discussed with patient, and patient was agreeable. All questions were answered thoroughly. Sandra Saunders MD, BEN Board Certified, [place] Board [employer] and Rehabilitation (ABPMR) Board Certified, [place] Board [employer] Electrodiagnostic [employer] (ABEM) Orders: Referrals Neurology Referral G43.909 - Migraine, unspecified, not intractable, without status migrainosus Coding Level of Care Code Est Pt Level 4 (19227) Diagnoses Lumbar radiculopathy M54.16 Complex regional pain syndrome type 1 of right lower extremity G90.521 Complex regional pain syndrome affected site: lower extremity Laterality: right
== END 2024-08-04 10:54 | disposition home or self-care (01) ==
PROVIDERS: PCP Student in an Organized Health Care Education/Training Program; Visit Provider Physical Medicine & Rehabilitation
DX: M54.16 Radiculopathy, lumbar region (principal); G90.521 Complex regional pain syndrome I of right lower limb
CPT/HCPCS: 99214

== ENCOUNTER → 2024-08-04 09:46 | Outpatient (BNVA) | payer OTHER, SELFPAY | PROVIDERS: PCP Student in an Organized Health Care Education/Training Program; Visit Provider Physical Medicine & Rehabilitation ==

== ENCOUNTER 2024-08-15 09:19 | Outpatient (AMB) | payer OTHER, SELFPAY ==
--- NOTE | 2024-08-15 09:23 | A.OFFVIS_ITS ---
Vital Signs 08/15/24 09:37 Height 5 ft 5 in Weight 147 lb BMI 24.5 BP 134/70 Blood Pressure Location Lt brachial Position Sitting Respiration 14 Pulse 90 Pulse Source Pulse Oximeter Pulse Oximetry (%) 100 Oxygen Delivery Method Room Air Intake Visit Reasons: Follow Up Intake Note: Patient comes in to discuss lower back and hip pain. She is accompanied by friend Janice. She Reports she has fallen 5-6 times recently. Pain scale today is 10/10. Butcher All Round Required: Yes Butcher All Round Services: [employer] Offered & Declined Allergies Penicillins [PENICILLINS] Allergy (Unknown, Verified 08/15/24 09:45) HIVES HPI Comments Details: Yaneth is very pleasant 63 years old female who presents in my office with complains on pain in the right posterior hip with radiation into anterior hip and anterior thigh. She was under care in this office with right knee pain and she received [employer] spinal cord stimulator in the lumbar position L1- L2 L3 to stimulate the dorsal roots of L1-L2 and L3 to help her pain in the knee. Since then she had several falls and she was sent to CT scan with and without contrast. Unfortunately some impedances were lost at her spinal cord stimulator and MRI is contraindicated for her. On the CT scan all levels lumbar spine appears to be normal, see the full dictation as below, accept L5-S1 level where the degenerative disc and endplate changes as well as arthritis. On physical exam today attention was attracted to positive Jay Jay, positive pelvic compression, positive pain was distraction plan and positive 14 finger test on the right. I offered this patient diagnostic sacroiliac joint injection to help me to diagnose the pain. Diagnostic medial branch block on the right could be my next step of the sacroiliac joint injection will not work. I ntercept procedure could be done if sacroiliac joint injection and medial branch blocks do not work. [facility] Medical History Palpitations Non-cardiac chest pain Pelvic pain Leg pain Bladder pain Lower abdominal pain Gross hematuria Toe pain Right knee pain Effusion, right knee Dysuria Pelvic pain in female Hematuria Mass of spine Hematuria Type 2 diabetes mellitus with polyneuropathy DM2 (diabetes mellitus, type 2) Nail deformity Paronychia Failure of spinal cord stimulator Thymoma Pulmonary nodules Thyroid cancer Blood in urine Constipation by delayed colonic transit Tubular adenoma of colon Gastritis Hypertension Dyslipidemia Post-surgical hypothyroidism Primary thyroid cancer Vitamin D deficiency Surgical History History of thymectomy History of back surgery Hx of colonoscopy Hx of thyroidectomy Hx of hernia repair Hx of section Hx of hysterectomy History of esophagogastroduodenoscopy (EGD) Family History Father Stroke Heart attack Mother Diabetes mellitus Family/Other Family history of cancer Sister Stomach cancer Family/Other Thyroid cancer Social History Household Members: Spouse, Children and Other Alcohol intake: unknown Patient Tobacco Use Status: Former Tobacco user Tobacco use type: Cigarette Second Hand Smoke Exposure: No Sexual orientation: Straight/Heterosexual Gender identity: Female Review of Systems Const All systems reviewed & are unremarkable except as noted in HPI and below Physical Exam Const General: no acute distress and alert Orientation/consciousness: patient oriented x3 Chest Chest palpation & inspection: normal inspection of the chest Resp Effort & Inspection: normal respiratory effort, able to speak in complete sentences, normal respiratory pattern, no audible wheezes and no cough Cardio Jugular venous distension: no JVD Back/Spine/Pelvis Other: Positive Jay Jay test positive Gaenslen test positive pelvic compression test and positive patient pelvic distraction test as well as 14 finger test on the right make me think about right sacroiliitis. Neuro General: patient oriented x3 Extrem Other: Right Knee: Mild effusion Global, non-specific TTP Results Reviewed Results Reviewed: LUMBAR SPINE WITHOUT CONTRAST CLINICAL INFORMATION: Evaluate for disc herniation, patient has spinal cord stimulator COMPARISON: Lumbar spine radiograph 05/04/2024 TECHNIQUE: Noncontrast axial 1.5 and 2 mm sections through the lumbar spine were obtained. Coronal and sagittal reformats were obtained at the acquisition workstation. This CT examination was performed using dose optimization techniques as appropriate, variously including the following: *Automated exposure control *Adjustment of mA and/or kV according to patient size (this includes techniques or standardized protocols for targeted exams where dose is matched to indication/reason for exam; i.e. extremities or head) *Use of iterative reconstruction technique DLP; 386 mGy-cm FINDINGS: No acute fracture involving the lumbar spine. The lumbar vertebral bodies demonstrate normal height. Overall sagittal alignment appears maintained. There is moderate intervertebral disc space narrowing with intradiscal vacuum phenomena and endplate degenerative changes at L5-S1. Again noted generator device in the right gluteal subcutaneous soft tissues with intact stimulator lead terminating within the lumbar spinal canal at the level of L1. The paravertebral soft tissues appear unremarkable. Mild aortoiliac atherosclerosis. Few sigmoid colonic diverticula. Mild degenerative changes involving bilateral sacroiliac joints. T12-L1:No spinal canal or foraminal stenosis. L1-L2: No spinal canal or foraminal stenosis. L2- L3: No spinal canal or foraminal stenosis. L3-L4:No spinal canal or foraminal stenosis.Mild facet arthropathy. L4-L5: Minimal disc bulge. No spinal canal or foraminal stenosis. Mild facet arthropathy. L5-S1: Disc bulge with superimposed left paracentral disc protrusion and left subarticular stenosis. There is likely mass effect on the left S1 traversing nerve root, although not well evaluated on CT. No significant right-sided foraminal stenosis. Moderate to severe bilateral facet arthropathy.Mild right and gncn-fv-qudlteiu left foraminal stenosis. IMPRESSION: At L5-S1, there is disc bulge with superimposed left paracentral disc protrusion and left subarticular stenosis.There is likely mass effect on the left S1 traversing nerve root, although not well evaluated on CT. Moderate to severe bilateral facet arthropathy.Mild right and owcd-ws-hxkuetci left foraminal stenosis. Mild facet arthropathy at L3-4 and L4-L5.. Assessment & Plan Assessment & Plan (1) Disc degeneration, lumbar: Code(s): M51.36 - Other intervertebral disc degeneration, lumbar region Category: Medical (2) Sacroiliitis: Code(s): M46.1 - Sacroiliitis, not elsewhere classified Category: Medical (3) Chronic right SI joint pain: Code(s): M53.3 - Sacrococcygeal disorders, not elsewhere classified; G89.29 - Other chronic pain Category: Medical (4) Spondylosis of lumbar region without myelopathy or radiculopathy: Code(s): M47.816 - Spondylosis without myelopathy or radiculopathy, lumbar region Category: Medical Plan Launch is longstanding patient of mine who received treatment for right arthritis of the knee was [employer] spinal cord stimulator. Now she complains on pain in the right thigh and right hip which in my opinion could be a pain from right sacroiliac joint or pain from the right facets on the right. Her CT scan is positive for L5-S1 endplate changes and facet arthropathy. I will start investigation of this patient's pain by performing diagnostic sacroiliac joint injection on the right. Today patient met [employer] spinal cord stimulator service center representative to interrogate her device. There are some discrepancies in her impedance and she can not go to MRI machine. Nevertheless the device is working and helps her pain in the knee. Patient Instructions: I here by testify that I spent 35 minutes in conversation with this patient examining this patient evaluating her prior CT scan image and records as well as planning her care and organizing this note. Coding Level of Care Code Est Pt Level 4 (32460) Diagnoses Disc degeneration, lumbar M51.36 Sacroiliitis M46.1 Chronic right SI joint pain M53.3; G89.29 Spondylosis of lumbar region without myelopathy or radiculopathy M47.816
[2024-08-15 09:37] VITALS: BP 134/70; PULSE 90; RESP 14; O2SAT 100; BMI 24.5
== END 2024-08-15 10:03 | disposition home or self-care (01) ==
PROVIDERS: PCP Student in an Organized Health Care Education/Training Program; Visit Provider Anesthesiology
DX: M51.36 Other intervertebral disc degeneration, lumbar region (principal); M46.1 Sacroiliitis, not elsewhere classified; M53.3 Sacrococcygeal disorders, not elsewhere classified; G89.29 Other chronic pain; M47.816 Spondylosis without myelopathy or radiculopathy, lumbar region
CPT/HCPCS: 99214

== ENCOUNTER → 2024-08-15 09:19 | Outpatient (BNVA) | payer OTHER, SELFPAY | PROVIDERS: PCP Student in an Organized Health Care Education/Training Program; Visit Provider Anesthesiology ==

== ENCOUNTER 2024-08-18 10:38 | Outpatient (REF) | payer OTHER, SELFPAY ==
[2024-08-18 12:41] LABS: Free T4 (Free Thyroxine) 1.52 ng/dL (0.71-1.85); Thyroid Stimulating Hormone 0.14 uIU/mL (0.32-4.0)
[2024-08-18 13:11] LABS: Appearance Urine Clear; Color Urine Yellow; Glucose Urine UA Negative (Negative); Leukocyte Esterase Urine Small (1+) (Negative); Nitrite Urine Negative (Negative); PH 5.5 (5.0-9.0); Specific Gravity - Urine <= 1.005 (1.005-1.025); UMIC TRIGGER UA YES; Urine Blood Negative (Negative); Urine Ketones Negative (Negative); Urine Protein Negative (Neg-Trace)
[2024-08-18 13:18] LABS: Bacteria Urine 1+ (None Seen); Hyaline Casts Urine 0-2 /LPF (0-2); RBC Urine 0-2 /HPF (0-2); WBC Urine 21-50 /HPF (0-5)
== END 2024-08-18 10:39 | disposition home or self-care (01) ==
LOC: HO.LAB 10:38
PROVIDERS: Absent Provider Urology; PCP Student in an Organized Health Care Education/Training Program; Visit Provider Internal Medicine Endocrinology, Diabetes & Metabolism
DX: C73 Malignant neoplasm of thyroid gland (principal); N39.0 Urinary tract infection, site not specified; R10.2 Pelvic and perineal pain; G89.29 Other chronic pain; N30.20 Other chronic cystitis without hematuria; B96.89 Other specified bacterial agents as the cause of diseases classified elsewhere
CPT/HCPCS: 36415; 81001; 84439; 84443; 87086; 87088; 87186

== ENCOUNTER 2024-08-22 12:28 | Outpatient (REF) | payer OTHER, SELFPAY | END 2024-08-22 12:29 | disposition home or self-care (01) | LOC: HO.LAB 12:28 | PROVIDERS: PCP Student in an Organized Health Care Education/Training Program; Visit Provider Urology | DX: R10.2 Pelvic and perineal pain (principal); R30.9 Painful micturition, unspecified; R82.79 Other abnormal findings on microbiological examination of urine | CPT/HCPCS: 51798; 81003; 87086; 87088; 87186 ==

== ENCOUNTER 2024-08-22 12:29 | Outpatient (AMB) | payer OTHER, SELFPAY ==
--- NOTE | 2024-08-22 13:05 | MHC.OFFVIS ---
Intake Visit Reasons: Bladder pain Intake Note: Pt presents to the office today for c/o bladder pain. Blood thinners: None Meds: Oxybutinin, Nitrofurantoin- pt is not using PVR: 0mL [employer] Specialist Required: Yes [facility] [facility] Specialist Language: Wheat Inspector Name: Theo Andersen ([id number]) Allergies Penicillins [PENICILLINS] Allergy (Unknown, Verified 08/22/24 13:05) HIVES Medication List - Last Reconciled 08/22/24 by Analy Campos MD acetaminophen (Tylenol) 650 mg (2 x 325 mg) PO Q6H PRN albuterol sulfate 90 mcg/actuation (ProAir HFA) 2 puffs inhalation Q4-6H PRN bisacodyl (Dulcolax (bisacodyl)) 20 mg (4 x 5 mg) PO ONCE 1 day blood sugar diagnostic (FreeStyle Lite Strips) Test blood glucose twice per day blood-glucose meter (FreeStyle Lite Meter kit) As directed ciprofloxacin HCl 500 mg PO BID 7 days cranberry 500 mg PO BID 30 days flash glucose scanning reader ([employer] [place] [address] [place]) As directed fluticasone propionate 50 mcg/actuation sprays intranasal gabapentin 300 mg PO BEDTIME 30 days hydrocortisone 2.5% (Proctosol HC) 1 appl IN BID-QID PRN ibuprofen 600 mg PO Q8H PRN levothyroxine 112 mcg PO DAILY metformin ER 500 mg PO BID trishoqtz-[id number]-zdg 118-10-40.8-36 mg (Uribel) 1 tab PO TID 90 days methylcellulose (laxative) (Citrucel) 500 mg PO DAILY methylcellulose (laxative) (Citrucel) 500 mg PO DAILY montelukast 10 mg PO DAILY naproxen 500 mg PO BID 30 days nitrofurantoin macrocrystal 50 mg orally use as directed post intercourse; must administer with a meal/food oxybutynin chloride ER 10 mg PO DAILY pantoprazole 40 mg PO DAILY polyethylene glycol 3350 (Miralax) 238 grams PO ONCE rosuvastatin 40 mg PO DAILY sennosides (Natural Senna Laxative) 17.2 mg (2 x 8.6 mg) PO QDAY sitagliptin phosphate (Januvia) 50 mg PO DAILY sulfamethoxazole-trimethoprim 800-160 mg (Bactrim DS) 1 tab PO BID 5 days HPI Comments Details: 08/22/24--Sapna is being followed for recurrent UTIs, interstitial cystitis, sr risk management consultant utilized. She is using the oxybutynin 10 mg daily. She is here with complaints of increased pain with urination. Urinalysis is nitrite positive. The patient states that she has not been using any other antibiotics at this time. I will empirically place her on Cipro 500 mg twice a day pending urine culture. Review of chart: 08/01/24--Sapna is being followed for recurrent UTIs, interstitial cystitis and related symptoms of pelvic pain and urgency. She was last treated for UTI symptoms with antibiotics in June, she denies dysuria but complains of vaginal itching. She is taking oxybutynin 10 mg daily. Nitrofurantoin 50 mg post sexual activity. I Will send diflucan to pharm. 04/15/2024--Sapna is being followed for recurrent UTIs, interstitial cystitis and related symptoms of pelvic pain and urgency. She called to be seen today because of pelvic pain. She states for about 8 days she has been off and on having pain with urination. She states that she forgot to take the prophylactic antibiotics with intercourse. Urinalysis evaluated is nitrite positive. I will send urine for culture. I will empirically start Macrobid 100 mg twice a day for 7 days pending urine culture. In review of her chart the patient had a CT scan abdomen pelvis with contrast ordered by another provider for complaints of abdominal pain. I have reviewed the results kidneys duplicated right renal system no hydronephrosis no renal calculi. Will continue low dose macrobid post intercourse, tylenol and/or OTC NSAID prn, Cont Uribel TID, continue oxybutynin 10 mg qhs. 02/01/24-Sapna is a 62-year-old female who presents today to the office for a follow-up. Sapna is followed due to bladder pain syndrome. She has been treated with bladder installations heparin lidocaine and Solu-Medrol. The patient is a Nepali speaking female. Certified sr risk management consultant was present during the visit. PMH includes --hypertension, diabetes, h/o thyroid cancer, followed by endocrine. I had previously discussed use of pyridium prior to intercourse and low dose macrobid post intercourse, tylenol and/or OTC NSAID prn. She was prescribed uribel. The patient states the her bladder pain is much better, but not gone. 03/17/23--Out patient cystoscopy bladder biopsy-- bladder findings, erythematous flattened changes, pathology chronic cystitis with muscularis propria present. 04/23/22-- urine cytology- negative for malignant cells PFSH Medical History Palpitations Non-cardiac chest pain Pelvic pain Leg pain Bladder pain Lower abdominal pain Gross hematuria Toe pain Right knee pain Effusion, right knee Dysuria Pelvic pain in female Hematuria Mass of spine Hematuria Type 2 diabetes mellitus with polyneuropathy DM2 (diabetes mellitus, type 2) Nail deformity Paronychia Failure of spinal cord stimulator Thymoma Pulmonary nodules Thyroid cancer Blood in urine Constipation by delayed colonic transit Tubular adenoma of colon Gastritis Hypertension Dyslipidemia Post-surgical hypothyroidism Primary thyroid cancer Vitamin D deficiency Surgical History History of thymectomy History of back surgery Hx of colonoscopy Hx of thyroidectomy Hx of hernia repair Hx of section Hx of hysterectomy History of esophagogastroduodenoscopy (EGD) Family History Father Stroke Heart attack Mother Diabetes mellitus Family/Other Family history of cancer Sister Stomach cancer Family/Other Thyroid cancer Social History Household Members: Spouse, Children and Other Alcohol intake: unknown Patient Tobacco Use Status: Former Tobacco user Tobacco use type: Cigarette Second Hand Smoke Exposure: No Sexual orientation: Straight/Heterosexual Gender identity: Female Review of Systems Const All systems reviewed & are unremarkable except as noted in HPI and below Reports no additional complaints Eyes Reports no additional complaints ENT Reports no additional complaints Card Reports no additional complaints Resp Reports no additional complaints GI Reports no additional complaints Reports as per HPI Musc Reports no additional complaints Skin/Breast Reports system reviewed and no additional complaints, except as documented Neuro Reports no additional complaints Psych Reports no additional complaints Endo Reports no additional complaints Je/Lymph Reports no additional complaints Aller/Immun Reports no additional complaints Office Procedures Post Void Residual Post Residual Void Post Void Residual (PVR): 0 [id number]-[id number] Void Residual by ultrasound Results AMB Urinalysis, Automated UA Leukoctes 15 Gigi/uL Last Edit by Angelia Connors, TRANG on 08/22/24 13:24 UA Nitrite Positive Last Edit by Angelia Connors, TRANG on 08/22/24 13:24 UA Urobilinogen 0.2 mg/dL Last Edit by Angelia Connors, TARNG on 08/22/24 13:24 UA Protein 0 mg/dL Last Edit by Angelia Connors, TRANG on 08/22/24 13:24 UA pH 6.0 Last Edit by Angelia oCnnors, TRANG on 08/22/24 13:24 UA Blood 10 Scott/uL Last Edit by Angelia Connors, TRANG on 08/22/24 13:24 UA Specific [place] 1.010 Last Edit by Angelia Connors, TRANG on 08/22/24 13:24 UA Ketone Negative Last Edit by Angelia Connors, TRANG on 08/22/24 13:24 UA Bilirubin 0 mg/dL Last Edit by Angelia Connors, TRANG on 08/22/24 13:24 UA Glucose 0 mg/dL Last Edit by Angelia Connors, TRANG on 08/22/24 13:24 Results Reviewed Results Reviewed: Laboratory Last Values Urine pH (Auto) 6.0 08/22/24 13:17 Specific [place] (Auto) 1.010 08/22/24 13:17 Urine Protein (Auto) 0 mg/dL 08/22/24 13:17 Glucose (UA)(Auto) 0 mg/dL 08/22/24 13:17 Urine Ketones (Auto) Negative 08/22/24 13:17 Urine Blood (Auto) 10 Scott/uL 08/22/24 13:17 Urine Nitrite (Auto) Positive 08/22/24 13:17 Urine Bilirubin (Auto) 0 mg/dL 08/22/24 13:17 Urine Urobilinogen (Auto) 0.2 mg/dL 08/22/24 13:17 Leukocyte Esterase (Auto) 15 Gigi/uL 08/22/24 13:17 Assessment & Plan Assessment & Plan (1) Chronic cystitis: Code(s): N30.20 - Other chronic cystitis without hematuria Category: Medical (2) Bladder pain: Code(s): R39.89 - Other symptoms and signs involving the genitourinary system Category: Medical (3) Pelvic pain: Code(s): R10.2 - Pelvic and perineal pain Category: Medical (4) Dyspareunia in female: Code(s): N94.10 - Unspecified dyspareunia Category: Medical (5) Acute UTI: Code(s): N39.0 - Urinary tract infection, site not specified Category: Medical (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 - Other specified congenital malformations of kidney Category: Medical Plan Continue oxybutynin 10 mg daily Cipro 500 mg twice a day for 7 days pending urine culture Orders: Orders AMB Urinalysis Automated Today R30.9 - Painful micturition, unspecified AMB Post Void Residual by ultrasound Today Z13.9 - Encounter for screening, unspecified Medications: New ciprofloxacin HCl 500 mg PO BID 7 days 14 tabs 0RF Discontinued sulfamethoxazole-trimethoprim 800-160 mg (Bactrim DS) Discontinued Reason: Patient no longer taking 1 tab PO BID 5 days 10 tabs 0RF methen-m.blue-s.qaiv-zdfht-zzj 118-10-40.8-36 mg (Uribel) administer with plenty of fluids Discontinued Reason: Patient no longer taking 1 tab PO TID 90 days 180 caps 1RF Patient Instructions: The patient had an opportunity to ask questions regarding treatment plan. The patient expressed understanding and agreement with the above treatment plan. The patient is aware they should contact our office by phone for worsening of their current condition or the appearance of new symptoms. Compliance is encouraged with any medications and followup testing that is ordered. It is a privilege to be allowed the opportunity to participate in the urologic care of your patient. If you have any questions or concerns regarding treatment for the above conditions please do not hesitate to contact me. The office telephone contact is [phone]. This note is constructed in part using voice recognition software. While every effort has been made to ensure accuracy private branch exchange repairer errors may have been included. Yours sincerely, Analy Campos MD Coding Level of Care Code Est Pt Level 4 (22663) Diagnoses Chronic cystitis N30.20 Bladder pain R39.89 Pelvic pain R10.2 Dyspareunia in female N94.10 Acute UTI N39.0 Duplex kidney Q63.8 CPT Codes Post Residual Void - PVR CPT Code: 47437-Fkgl Void Residual by ultrasound ([id number])
== END 2024-08-22 13:57 | disposition home or self-care (01) ==
PROVIDERS: PCP Student in an Organized Health Care Education/Training Program; Visit Provider Urology
DX: N30.20 Other chronic cystitis without hematuria (principal); R39.89 Other symptoms and signs involving the genitourinary system; R10.2 Pelvic and perineal pain; N94.10 Unspecified dyspareunia; N39.0 Urinary tract infection, site not specified; Q63.8 Other specified congenital malformations of kidney; R30.9 Painful micturition, unspecified
CPT/HCPCS: 99214

== ENCOUNTER 2024-09-02 17:20 | Outpatient (REF) | payer OTHER, SELFPAY ==
[2024-09-03 03:03] LABS: CT PCR NOT DETECTED (Not Detect.); NG PCR NOT DETECTED (Not Detect.)
[2024-09-03 14:39] LABS: Bacterial Vaginosis PCR NEGATIVE (Negative); Candida Group PCR NOT DETECTED (Not Detect); Candida glab krusei PCR NOT DETECTED (Not Detect); Trichomonas vaginalis PCR NOT DETECTED (Not Detect)
== END 2024-09-02 17:21 | disposition home or self-care (01) ==
LOC: HO.HHCLNP 17:20
PROVIDERS: Visit Provider Emergency Medicine
DX: R30.0 Dysuria (principal)
CPT/HCPCS: 0352U; 87086; 87491; 87591

== ENCOUNTER 2024-09-19 09:29 | Outpatient (REF) | payer OTHER, SELFPAY | END 2024-09-19 09:30 | disposition home or self-care (01) | LOC: HO.LNP 09:29 | PROVIDERS: PCP Student in an Organized Health Care Education/Training Program; Visit Provider Urology | DX: N39.0 Urinary tract infection, site not specified (principal); N30.20 Other chronic cystitis without hematuria | CPT/HCPCS: 81003; 87086 ==

== ENCOUNTER 2024-09-19 09:29 | Outpatient (AMB) | payer OTHER, SELFPAY ==
--- NOTE | 2024-09-19 09:55 | AM.OFFVISNUR ---
Intake Visit Reasons: 4w/UA Allergies Penicillins [PENICILLINS] Allergy (Unknown, Verified 08/22/24 13:05) HIVES Nursing Note Patient presents to office for repeat UA and culture. Patient able to give clean catch sample, UA run in office and culture to be sent out to lab. Patient aware and agreeable Assessment & Plan Assessment & Plan Orders: Orders Urine Culture Today N30.20 - Other chronic cystitis without hematuria, N39.0 - Urinary tract infection, site not specified AMB Urinalysis Automated Today N30.20 - Other chronic cystitis without hematuria, N39.0 - Urinary tract infection, site not specified
== END 2024-09-19 10:09 | disposition home or self-care (01) ==
LOC: HO.HUSH 09:30
PROVIDERS: PCP Student in an Organized Health Care Education/Training Program; Visit Provider Urology
DX: N39.0 Urinary tract infection, site not specified (principal); N30.20 Other chronic cystitis without hematuria

== ENCOUNTER 2024-09-26 08:39 | Outpatient (AMB) | payer OTHER, SELFPAY ==
[2024-09-26 08:46] VITALS: BP 132/82; PULSE 96; BMI 25.4
--- NOTE | 2024-09-26 08:46 | MHC.OFFVIS ---
Vital Signs 09/26/24 08:46 Height 5 ft 5 in Weight 152 lb 12.485 oz BMI 25.4 BP 132/82 Blood Pressure Location Lt brachial Position Sitting Pulse 96 Pulse Source Pulse Oximeter Intake Visit Reasons: Thyroid Cancer-no mailbox Intake Note: Patient present today for Thyroid Cancer follow up visit Graphite Mill Operator Required: Yes Graphite Mill Operator Language: Scientist/Engineer Services: Graphite Mill Operator Present Graphite Mill Operator Name: Efrain Information Interpreted: non-clinical & clinical Accompanied by: Self / Same As Patient Allergies Penicillins [PENICILLINS] Allergy (Unknown, Verified 09/26/24 08:49) HIVES Medication List - Last Reconciled 09/26/24 by Ashley Smiley MD acetaminophen (Tylenol) 650 mg (2 x 325 mg) PO Q6H PRN albuterol sulfate 90 mcg/actuation (ProAir HFA) 2 puffs inhalation Q4-6H PRN bisacodyl (Dulcolax (bisacodyl)) 20 mg (4 x 5 mg) PO ONCE 1 day bisacodyl (Dulcolax (bisacodyl)) 20 mg (4 x 5 mg) PO ONCE 1 day blood sugar diagnostic (FreeStyle Lite Strips) Test blood glucose twice per day blood-glucose meter (FreeStyle Lite Meter kit) As directed ciprofloxacin HCl 500 mg PO BID 7 days flash glucose scanning reader (SatmexStyle Emile 2 [place]) As directed fluticasone propionate 50 mcg/actuation sprays intranasal gabapentin 100 mg PO TID 30 days hydrocortisone 2.5% (Proctosol HC) 1 appl IN BID-QID PRN hydroxyzine pamoate 25 mg PO BEDTIME 30 days ibuprofen 600 mg PO Q8H PRN levothyroxine 112 mcg PO DAILY metformin ER 500 mg PO BID methylcellulose (laxative) (Citrucel) 500 mg PO DAILY methylcellulose (laxative) (Citrucel) 500 mg PO DAILY montelukast 10 mg PO DAILY naproxen 500 mg PO BID 30 days nitrofurantoin macrocrystal 50 mg orally use as directed post intercourse; must administer with a meal/food nitrofurantoin monohyd/m-cryst 100 mg (Macrobid) 100 mg PO BID 10 days pantoprazole 40 mg PO DAILY polyethylene glycol 3350 (Miralax) 238 grams PO ONCE 1 day polyethylene glycol 3350 (Miralax) 238 grams PO ONCE prednisone 20 mg PO DAILY 5 days sennosides (Natural Senna Laxative) 17.2 mg (2 x 8.6 mg) PO QDAY sitagliptin phosphate (Januvia) 50 mg PO DAILY HPI Comments Details: 63-year-old female coming in today for follow up of papillary thyroid cancer status post total thyroidectomy in 2009 with central neck dissection, noted to have multifocal bilateral disease with largest focus measuring 2.7 cm, with capsular invasion and extrathyroidal extension, initial KAL high-risk of recurrence, AJCC stage I, (though there is M1 listed on her TNM pathology, this is unclear whether this is error because there was no mention of distant metastatic disease), status post 150 mCi of I 131 in 07/2010. In 07/2015, status post right paratracheal lesion with confirmation of metastatic PTC, currently KAL indeterminate response to therapy. History of PTC in detail 2009: Diagnosed with PTC in [facility]. Status post total thyroidectomy 04/25/2010 with central neck dissection, official surgical pathology reported 2.7 cm PTC in the right lobe with capsular invasion and extrathyroidal extension. Additional 2 foci of micropapillary thyroid carcinoma in the remaining right lobe measuring 0.3 and 0.4 cm, as well as foci in the isthmus measuring 0.5 cm. Additional 1.1 cm focus of PTC within the left lobe. The stage is this did as pT3 N1b M1, however no mention of distant metastatic disease in the chart otherwise so this is likely a mistake. She has to be N0, and given her age at the time of surgery, this is AJCC stage I. Given extrathyroidal extension, KAL initial high-risk of recurrence. 08/07/2010: Received 150 mCi of radioactive iodine treatment. 08/14/2010: Posttreatment whole-body scan revealed no iodine avid uptake. She then moved to [facility] in continued treatment there. 02/04/2012: TG 1.31, unfortunately no TSH available. She was on levothyroxine 200 mcg daily at that time. 01/31/2012: Whole-body scan following thyroid hormone withdrawal was negative for iodine avid uptake 05/04/2012: TG less than 0.2, TSH 0.08 Patient has subsequently moved back to the [place]. 06/04/2014: Ultrasound head and neck completed revealed abnormal appearing lymph nodes. Stimulated TG at the time was 1, WBS revealed distant uptake within the neck, chest, abdomen. !! Unclear whether this is physiologic?? CT of the chest revealed a mediastinal mass measuring 2.5 X 2.5 X 7 cm. She was also noted to have a 10 mm right lower lobe pulmonary nodule. 01/28/2015: FNA biopsy of the abnormal appearing lymph node came back benign. She underwent evaluation with Dr. Edith Mireles at [facility] and there was concern of a 1.5 cm hypoechoic mass in the right thyroid fossa along the 1st tracheal ring which was biopsied and consistent with PTC. FNA biopsy of the mediastinal mass revealed a thymoma. Repeat whole-body scan around that time revealed no uptake within the lesion within the thyroid bed concerning for de- differentiated disease. 07/04/2015: Status post right paratracheal papillary thyroid carcinoma resection with Dr. Edith Mireles. Histology revealed a 1.5 cm PTC. 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 It was minimally invasive at the right, left posterior and anterior margins. Lymph nodes were negative for metastasis and there was no pleural invasion. She was referred for postoperative radiation therapy to decrease the risk of local recurrence. Unclear whether she got this?? 05/01/2015: MRI of the abdomen revealed no hepatic lesions corresponding to the activity to the whole-body scan 2018: Ultrasound of the head and neck revealed abnormal-appearing lymph nodes. 02/25/2018: FNA biopsy of a left level 4, 2.5 cm cervical lymph node, was inadequate. Left level 2, 1.9 cm lymph node revealed no evidence of metastatic disease. 12/30/2018: Repeat ultrasound and FNA biopsy of a left level 2, 2.6 cm and a left level 2, 2.3 cm cervical lymph node both with the only evidence of normal-appearing lymphocytes. Unfortunately no TG washout available. 02/01/2021: Thyrogen stimulated whole-body scan revealed only physiologic uptake. Labs TSH greater than 100, TG 0.8 with TG antibody negative. 01/27/2022: PET-CT with the identification of a 0.7 cm left level 2A lymph node with increased FDG uptake with SUV max of 2.9. There was an additional 0.5 cm left level 2B lymph node with increased FDG uptake and SUV max of 4. There was residual activity within the thyroidectomy bed. No abnormal uptake was noted in the chest, abdomen, pelvis. Mild FDG uptake in the posterior paraspinal tissue with SUV max of 3.4. This extended to the left lateral aspect of the spinal: It L5. There was a mild soft tissue prominence measuring 1.8 X 0.9 cm in the left paraspinal region. 01/24/2022: Ultrasound neck revealed an abnormal appearing lymph node in the left level 2 measuring 1.9 cm. 03/24/2022: TSH 0.02, TG 0.1, TG antibody at less than 1 04/09/2022: FNA biopsy of the left level 2 lymph node with cytology revealed no evidence of malignancy, only lymphocytes. TG washout was negative. Additional small suspicious appearing supraclavicular lymph node which was not biopsied by IR for unknown reason. 04/07/2022: CT of the lumbar spine revealed abnormal soft tissue within the left epidural space at the L5/S1 level. This was inseparable from the traversing segment of the S1 nerve root. MRI revealed a herniated disc with granulation tissue. 04/07/22: CT of the chest to evaluate the 1 cm pulmonary nodule that was identified in 201307/16/2022: TSH 0.01, TG 0.13, TG antibody less than 0.4, free T4 1.81 with TSH 0.01, TG 0.1 and TGAB <1. 07/28/2022: Evaluated by Dr. Kesha Hammond at [facility] , her own ultrasound from 07/16/2022 did not show any definitive suspicious lymph nodes in the cervical area. Specifically the prominent lymph node in the left level 2 had reassuring features including a fatty hilum. 07/22/2022: TSH 0.01, TG 0.1, TG antibody less than 1 09/25/22: CT chest LUNGS: 2 x 5 mm peripheral or subpleural right lower lobe nodule adjacent to the major fissure probably representing a subpleural lymph node. 4 mm noncalcified left lower lobe nodule . 6 mm calcified right lower lobe nodule 12/01/2022: Evaluated by pulmonology Dr. Joel Arias with plan for repeat CT scan in 1 year 02/2023: TSH less than 0.1, TG 0.1 (ICMA), TG antibody less than 1 08/2023: TG 0.1, TG antibody less than 1 09/14/23: CT chest Redemonstration of bilateral pulmonary nodules the largest measuring up to 6 mm along the medial aspect of the left major fissure along the anterior aspect of the right lower lobe, stable. 2. No new large or suspicious pulmonary nodules or masses are noted. Has no upcoming follow up with pulmonology since last CT scan about a year ago in August 2023 09/16/2023: Ultrasound neck showed morphologically benign-appearing lymph nodes in the right neck. Left neck level 2 lymph node measuring 1.9 X 0.5 X 1.3 cm with loss fatty hilum. 11/05/2023: Again seen at [facility], Dr. Hammond for follow up of neck imaging, repeat ultrasound done in office showed no mass in bilateral thyroid bed. No suspicious nodes seen, left level 2 node without a clear hilum is oval in shape and stable in size compared to study from 06/2022 per nodes. Nonspecific isoechoic area in the left level 5B that is either a node versus part of the adjacent. 08/18/24 Levothyroxine reduced to 112 mcg daily from 125 mcg daily after TSH low at 0.14 Currently on levothyroxine 112 mcg daily , taking it appropiately. She denies any palpitations, tremors, bowel movements are regular. Says she has gained some weight recently, denies any weight loss. Denies any shortness of breath, though sometimes have cough with respiratory irritation. She does report back pain that is bothersome to her. Physical exam General: sitting comfortably in no acute distress HEENT: normocephalic/atraumatic, , moist oral mucosa Neck: supple, symmetrical, palpable 0.5 cm right level 2A lymph node otherwise no masses palpated Cardiac: normal heart sounds Pulm: normal breath sounds B/L, no added breath sounds Abd: not distended, no tenderness Extremities: no edema, no signs of myxedema Neuro: AAO x3, Speech: normal, no facial droop, moving all 4 extremities Laboratory Tests 09/10/18 05/24/19 07/06/19 12:33 11:36 07:10 Free T4 1.70 1.67 TSH Thyroglobulin 0.1 H <0.1 0.5 H Thyroglobulin Antibody <1 <1 <1 07/08/19 08/30/19 11/30/19 07:30 11:24 12:00 Free T4 1.83 1.37 TSH Thyroglobulin 0.4 H <0.1 <0.1 Thyroglobulin Antibody <1 <1 <1 04/12/20 07/05/20 07/06/20 16:38 12:25 11:05 Free T4 1.63 1.27 TSH Thyroglobulin 0.1 H 0.1 H Thyroglobulin Antibody <1 <1 10/23/20 12/07/20 01/30/21 09:35 11:00 07:03 Free T4 1.59 1.38 TSH 0.05 L 0.18 L > 100.00 H Thyroglobulin 0.1 H <0.1 0.8 H Thyroglobulin Antibody <1 <1 <1 02/01/21 04/16/21 05/31/21 07:40 12:40 10:33 Free T4 1.28 1.31 TSH 14.33 H 2.19 1.46 Thyroglobulin 0.6 H 0.1 H 0.1 H Thyroglobulin Antibody <1 <1 <1 12/04/21 12/30/21 03/24/22 09:54 09:50 10:26 Free T4 1.11 1.49 1.83 TSH 9.61 H 0.98 0.02 L Thyroglobulin 0.2 L 0.2 L 0.1 L Thyroglobulin Antibody <1 <1 <1 08/11/22 02/26/23 05/06/23 09:47 09:12 06:01 Free T4 2.19 H 1.81 1.74 TSH 0.01 L < 0.01 L 0.02 L Thyroglobulin 0.1 L <0.1 Thyroglobulin Antibody <1 <1 09/08/23 11/20/23 11/20/23 08:51 08:48 08:49 Free T4 1.41 1.29 TSH < 0.01 L 0.07 L Thyroglobulin 0.1 H Thyroglobulin Antibody <1 02/01/24 07/04/24 08/18/24 09:37 07:16 11:08 Free T4 1.20 1.20 1.52 TSH 2.36 2.90 0.14 L Thyroglobulin Thyroglobulin Antibody Imaging CT LUMBAR SPINE WITHOUT CONTRAST 07/28/24 CLINICAL INFORMATION: Evaluate for disc herniation, patient has spinal cord stimulator COMPARISON: Lumbar spine radiograph 05/04/2024 TECHNIQUE: Noncontrast axial 1.5 and 2 mm sections through the lumbar spine were obtained. Coronal and sagittal reformats were obtained at the acquisition workstation. This CT examination was performed using dose optimization techniques as appropriate, variously including the following: *Automated exposure control *Adjustment of mA and/or kV according to patient size (this includes techniques or standardized protocols for targeted exams where dose is matched to indication/reason for exam; i.e. extremities or head) *Use of iterative reconstruction technique DLP; 386 mGy-cm FINDINGS: No acute fracture involving the lumbar spine. The lumbar vertebral bodies demonstrate normal height. Overall sagittal alignment appears maintained. There is moderate intervertebral disc space narrowing with intradiscal vacuum phenomena and endplate degenerative changes at L5-S1. Again noted generator device in the right gluteal subcutaneous soft tissues with intact stimulator lead terminating within the lumbar spinal canal at the level of L1. The paravertebral soft tissues appear unremarkable. Mild aortoiliac atherosclerosis. Few sigmoid colonic diverticula. Mild degenerative changes involving bilateral sacroiliac joints. T12-L1:No spinal canal or foraminal stenosis. L1-L2: No spinal canal or foraminal stenosis. L2- L3: No spinal canal or foraminal stenosis. L3-L4:No spinal canal or foraminal stenosis.Mild facet arthropathy. L4-L5: Minimal disc bulge. No spinal canal or foraminal stenosis. Mild facet arthropathy. L5-S1: Disc bulge with superimposed left paracentral disc protrusion and left subarticular stenosis. There is likely mass effect on the left S1 traversing nerve root, although not well evaluated on CT. No significant right-sided foraminal stenosis. Moderate to severe bilateral facet arthropathy.Mild right and [id number] left foraminal stenosis. CT/CT lumbar spine wo IV con IMPRESSION: At L5-S1, there is disc bulge with superimposed left paracentral disc protrusion and left subarticular stenosis.There is likely mass effect on the left S1 traversing nerve root, although not well evaluated on CT. Moderate to severe bilateral facet arthropathy.Mild right and [id number] left foraminal stenosis. Mild facet arthropathy at L3-4 and L4-L5.. Electronically signed by: Nicholas Seymour MD 08/05/2024 10:[address] SOFT TISSUE NECK WITH CONTRAST 03/07/24 CLINICAL INFORMATION: Dysphagia COMPARISON: None. TECHNIQUE: Following the administration of 60 mL of Omnipaque 350 intravenous contrast, helical imaging was performed in the axial plane with generation of coronal and sagittal reformatted images. This CT examination was performed using dose optimization techniques as appropriate, variously including the following: *Automated exposure control. *Adjustment of mA and/or kV according to patient size (this includes techniques or standardized protocols for targeted exams where dose is matched to indication/reason for exam; i.e. extremities or head). *Use of iterative reconstruction technique. DLP: 260 mGy-cm. FINDINGS: The fat planes of the skull base and soft tissues of the nasopharynx are unremarkable. The paranasal sinuses and mastoid air cells are well aerated. The temporomandibular joints are normal. Torus palatini and small left torus maxillari. The oral cavity is unremarkable. Punctate calcified bilateral palatine tonsilloliths. Asymmetric soft tissue along the right base of tongue projecting into the upper vallecula and contacting the free edge of the epiglottis may reflect asymmetric tonsillar tissue though can be correlated with direct inspection. Asymmetric prominence of the right laryngeal ventricle can be correlated for right vocal cord paresis/paralysis. The aryepiglottic folds are opposed posteriorly with effacement of the left pyriform sinus. The subglottic airway is normal.. The left submandibular gland is small relative to the right. The parotid glands are normal. Thyroidectomy. No pathologic size criteria or morphologically suspicious cervical chain lymph nodes. The partially visualized lung apices are clear. Mild to moderate calcific plaque of the aortic arch and great vessel origins. Eccentric fibrofatty plaque mildly narrows the proximal brachiocephalic trunk. Otherwise grossly normal opacification of the major neck vessels. Minimal cervical spondylosis. Asymmetric ex vacuo dilatation of the right temporal horn with otherwise unremarkable imaged intracranial contents. Mild patchy paranasal sinus mucosal disease with some aerated contents in the right maxillary sinus. Small right mastoid effusion. Lens replacements. CT/CT soft tissue neck w IV con IMPRESSION: 1. Morphologic findings discussed above that can be correlated for right vocal cord paresis/paralysis. No aerodigestive tract mass. 2. No pathologic size criteria or morphologically suspicious cervical chain lymph nodes. US SOFT TISSUE NECK 09/16/23 CLINICAL INFORMATION: Lymph node mapping COMPARISON: None available. TECHNIQUE: Ultrasound of the neck soft tissues is performed with high- frequency murrell-scale imaging and color Doppler. FINDINGS: Right neck level 1B lymph node measuring up to 4 mm in short axis morphologically benign-appearing. Right neck level 2 lymph node measuring 0.5 cm in short axis, morphologically benign-appearing. Right neck level 5 8 lymph node measuring 5 mm in short axis, morphologically benign-appearing. Left neck level 1B lymph node measuring up to 7 mm in short axis, morphologically benign-appearing. Left neck level 2 lymph node measuring 1.9 x 0.5 x 1.3 cm with loss of fatty hilum. US/US soft tiss head and/or neck IMPRESSION: 1. Morphologically benign-appearing lymph nodes in the right neck. 2. Left neck level 2 lymph node measuring 1.9 x 0.5 x 1.3 cm with loss of fatty hilum. CT CHEST WITHOUT CONTRAST 09/14/23 CLINICAL INFORMATION: Abnormal findings of lung field COMPARISON: CT abdomen from 02/28/2023, CT chest from 11/25/2021 TECHNIQUE: Multidetector volumetric CT imaging of the chest was done. Axial MIP volume rendering provided. Sagittal and coronal reformatted images were obtained. This CT examination was performed using dose optimization techniques as appropriate, variously including the following: *Automated exposure control *Adjustment of mA and/or kV according to patient size (this includes techniques or standardized protocols for targeted exams where dose is matched to indication/reason for exam; i.e. extremities or head) *Use of iterative reconstruction technique DLP: 126 mGy-cm FINDINGS: LUNGS/PLEURA: Stable 2 mm pleural-based nodular focus along the anterior aspect of the right upper lobe (series 5, image 222). 6 mm nodular focus along the medial aspect of the left major fissure along the anterior aspect of the right lower lobe (series 5, image 295), stable. Calcified granuloma right lower lobe (series 5, image 372). 4 mm nodule in the lateral aspect of the left lower lobe (series 5, image 338), stable. No new large or suspicious pulmonary nodules or masses are noted. Central airways are patent. No pneumothorax. No large pleural effusion. Bibasilar atelectasis. MEDIASTINUM: Heart is not enlarged. No pericardial effusion. No coronary artery calcifications are noted. Aorta is nonaneurysmal and demonstrates a sclerotic calcifications. Main pulmonary artery is not enlarged. A few mildly prominent though nonenlarged peritracheal precarinal and periaortic lymph nodes are noted. AXILLA: No lymphadenopathy. UPPER ABDOMEN: Small hiatal hernia. OSSEOUS STRUCTURES: Multilevel degenerative changes of the thoracolumbar spine. Partial visualization of left or spinal stimulator along the upper lumbar spine CT/CT chest wo IV con IMPRESSION: 1. Redemonstration of bilateral pulmonary nodules the largest measuring up to 6 mm along the medial aspect of the left major fissure along the anterior aspect of the right lower lobe, stable. 2. No new large or suspicious pulmonary nodules or masses are noted. 3. Small hiatal hernia. CT CHEST WITH CONTRAST 09/25/22 CLINICAL INFORMATION: History of thyroid cancer. COMPARISON: Previous chest x-rays, most recent 12/25/2021. TECHNIQUE: Multidetector volumetric CT imaging of the chest was obtained after the administration of 65 mL of Omnipaque 350 intravenous contrast without immediate adverse reactions. Axial MIP volume rendering provided. Sagittal and coronal reformatted images were obtained. This CT examination was performed using dose optimization techniques as appropriate, variously including the following: *Automated exposure control *Adjustment of mA and/or kV according to patient size (this includes techniques or standardized protocols for targeted exams where dose is matched to indication/reason for exam; i.e. extremities or head) *Use of iterative reconstruction technique DLP: 97 mGy-cm FINDINGS: LUNGS: 2 x 5 mm peripheral or subpleural right lower lobe nodule adjacent to the major fissure (axial image 95, series 5) probably representing a subpleural lymph node. 4 mm noncalcified left lower lobe nodule (axial image 112, series 5). 6 mm calcified right lower lobe nodule (axial image 119, series 5). MEDIASTINUM: There are surgical clips in the anterior superior mediastinum. The mediastinum is otherwise normal. Small mediastinal and bilateral hilar lymph nodes including partially calcified right hilar lymph node. No enlarged lymph nodes. Normal heart size. No pericardial effusion. Normal caliber thoracic aorta. No coronary artery calcification. PLEURA: There is no pleural effusion. No pleural mass or thickening. AXILLA: No lymphadenopathy. UPPER ABDOMEN: There may be fatty infiltration of the liver. OSSEOUS STRUCTURES: Unremarkable. CT/CT chest w IV con IMPRESSION: Small, calcified and noncalcified pulmonary nodules. According to Fleischner guidelines, chest CT follow up as per protocol. Fleischner guidelines were followed. MR LUMBAR SPINE WITHOUT AND WITH CONTRAST 05/01/22 CLINICAL INFORMATION: 61-year-old with self-reported low back pain radiating to the right leg with left foot numbness. COMPARISON: 02/05/2022 CT lumbar spine, 11/13/2021 MRI. TECHNIQUE: MRI of the lumbar spine was obtained using routine sequences with and without contrast. Intravenous contrast: Gadavist 7 mL FINDINGS: Coronal Alignment: Normal Sagittal Alignment: Normal Lumbosacral Junction: Normal. Five gtb-hgs-[id number] lumbar-type vertebral bodies. Vertebral Bodies: Vertebral body heights are well maintained. Disc Spaces and Endplates: Moderate disc volume loss at L5-S1 is noted, with central Schmorl's nodes, with disc desiccation similar to previous MRI. Remaining lumbar intervertebral discs demonstrate normal height, with minor multilevel disc desiccation without significant spondylosis. Spinal Canal: No abnormal developmental findings. Bone Marrow: Minor type I degenerative marrow signal changes seen along the endplates at L5-S1 with associated endplate enhancement consistent with this. Otherwise bone marrow signal intensity appears within normal limits. Conus Medullaris: Terminates at L1-L2. Morphology and signal is normal. No abnormal enhancement. Intradural Nerve Roots: Within normal limits. No abnormal intradural enhancement. L5-S1: Note is made of a central to left subarticular recurrent disc herniation with marginal enhancing soft tissue which may reflect granulation tissue, measuring 6 mm in AP dimension with maximum transverse diameter of 8 mm, with mass effect on the left ventral thecal sac and traversing left S1 nerve root in the subarticular zone. Left hemilaminectomy changes are also noted with enhancing soft tissue in the left side of the canal adjacent to the traversing left S1 nerve root and left side of the thecal sac consistent with postoperative changes. Minor right-sided and [id number] left-sided facet arthrosis is noted. No significant neural foraminal stenosis and no significant central spinal canal stenosis. Note that the above-described disc herniation contacts the right S1 nerve root sleeve as well without nerve root compression or displacement. L4-L5: Small central to left central disc protrusion as noted on previous study with minimal indentation of the ventral thecal sac with associated enhancing annular fissuring at this level. Mild facet arthrosis bilaterally without significant canal or neuroforaminal stenosis. L3-L4: Normal disc contour. No facet arthrosis, canal or neuroforaminal stenosis. L2-L3: Normal disc contour. No facet arthrosis, canal or neuroforaminal stenosis. L1-L2: Normal disc contour. No facet arthrosis, canal or neuroforaminal stenosis. Paraspinal/Retroperitoneal: The paravertebral soft tissues appear grossly unremarkable. MR/MR lumbar spine wo/w con IMPRESSION: 1. Degenerative and postoperative changes at L5-S1 as described above with a left central to left subarticular recurrent disc herniation impinging on the traversing left S1 nerve root and slightly contacting the traversing right S1 nerve root sleeve with mild encroachment on the left ventral dural sac as well. 2. Stable small central to left paramedian disc protrusion at L4-L5 with enhancing annular fissuring. CT LUMBAR SPINE WITHOUT CONTRAST 04/07/22 CLINICAL INFORMATION: Lesion near L5. COMPARISON: Abdominal CT 02/02/2022. Lumbar spine MRI 11/13/2021. TECHNIQUE: Multidetector CT acquisition of the lumbar spine is obtained without contrast. Multiplanar reformats are acquired and utilized for image interpretation. This CT examination was performed using dose optimization techniques as appropriate, variously including the following: *Automated exposure control *Adjustment of mA and/or kV according to patient size (this includes techniques or standardized protocols for targeted exams where dose is matched to indication/reason for exam; i.e. extremities or head) *Use of iterative reconstruction technique FINDINGS: There are 5 nonrib-bearing lumbar-type vertebral bodies. Lumbar alignment is normal. Chronic inferior endplate Schmorl's node at L5 again noted. Mild chronic vertebral body height loss at L5 is stable. The remaining lumbar vertebral body heights are maintained. There is mild disc volume loss and there is vacuum phenomenon at L5-S1. The remaining disc volumes are preserved. There are no acute fractures and there are no acute subluxations. No suspicious intraosseous lesions are identified. There is aortoiliac atherosclerotic calcification. The L1-L2, L2-L3, and L3-L4 disc contours remain within normal limits. No central canal stenosis and no foraminal stenosis at these levels. L4-L5: There is likely a stable shallow left paracentral disc protrusion resulting in posterior deflection of the traversing left L5 nerve root within the left subarticular zone. No significant central canal stenosis and no foraminal stenosis. L5-S1: Postoperative changes following left hemilaminectomy. There is abnormal soft tissue within the left epidural space inseparable from the traversing left S1 nerve root that could reflect recurrent/residual disc herniation and/or scar tissue that would be better assessed with a lumbar spine MRI with and without IV contrast. CT/CT lumbar spine wo con IMPRESSION: - At L5-S1, there are postoperative changes following left hemilaminectomy. There is abnormal soft tissue within the left epidural space at L5-S1 inseparable from the traversing left S1 nerve root that could reflect recurrent/residual disc herniation and/or scar tissue that would be better assessed with a lumbar spine MRI with and without IV contrast. - At L4-L5, there is likely a stable shallow left paracentral disc protrusion resulting in posterior deflection of the traversing left L5 nerve root within the left subarticular zone. US SOFT TISSUE HEAD/NECK 01/20/2022 CLINICAL INFORMATION: Malignant neoplasm of thyroid gland. COMPARISON: Ultrasound soft tissue head and neck 11/08/2020. TECHNIQUE: Linear transducer grayscale and color Doppler examination of the neck lymph nodes. FINDINGS: On the right at level 1B the previously identified 0.6 x 0.4 x 0.5 cm lymph node is not seen on the current study. On the right at level 1B there is a 1.5 x 0.4 x 1.1 cm lymph node with a fatty hilum. The margins appear smooth and hypoechoic. No calcification is seen. Previously, this measured 1.7 x 0.4 x 1.2 cm. On the right at level 3 there is a 0.9 x 0.3 x 0.4 cm lymph node with a fatty hilum. No calcification is seen. This was not apparent previously. In the right supraclavicular region there is a 0.7 x 0.5 x 0.5 cm lymph node with a smooth fatty hilum. However, there is a hypoechoic area with in the fatty hilum which appears abnormal. The hypoechoic periphery of the lymph node appears small in diameter. This lymph node appears suspicious. This was not apparent previously. On the left at level 1B there is a 2.2 x 0.7 x 0.6 cm lymph node. This has a central fatty hilum. The hypoechoic periphery appears smooth without calcification. This was seen previously and appears similar. On the left at level 2 there is a 1.9 x 0.5 x 0.6 cm lymph node which appears abnormal. There is absence of the central fatty hilum. The lymph nodes predominantly hypoechoic. No calcification is seen. On the left at level 2 the previously identified 0.7 x 0.6 x 0.4 cm lymph node is not identified. US/US soft tiss head and/or neck IMPRESSION: 1. There is a suspicious 0.7 cm lymph node in the right supraclavicular region. 2. There is a suspicious 1.9 cm lymph node in level 2 on the left without a central fatty hilum. 3. Ultrasound-guided biopsy is recommended. CT ABDOMEN AND PELVIS WITH CONTRAST 11/20/21 CLINICAL INFORMATION: Abdominal pain. COMPARISON: Ultrasound of 09/13/[address] scan of 03/24/2021. TECHNIQUE: Multidetector volumetric images were obtained from the superior aspect of the liver through the pubic symphysis following administration 85 mL of Omnipaque 350 intravenous contrast. Sagittal and coronal reformatted images were obtained on the technologist's workstation. Oral Contrast: Yes. This CT examination was performed using dose optimization techniques as appropriate, variously including the following: *Automated exposure control. *Adjustment of mA and/or kV according to patient size (this includes techniques or standardized protocols for targeted exams where dose is matched to indication/reason for exam; i.e. extremities or head). *Use of iterative reconstruction technique. DLP: 335 mGy-cm FINDINGS: LUNG BASES: Calcified granuloma is seen within the right lower lobe. Heart normal size. No pericardial effusion. No pleural effusion. LIVER, GALLBLADDER, AND BILIARY TREE: The liver is of normal shape and size. There is a question of some fatty infiltration with some diminished density. No focal hepatic lesion or biliary ductal dilatation is present. The common bile duct is prominent at 8 mm in diameter in the region of the pancreatic head. No calculi or pancreatic head mass appreciated. The gallbladder is unremarkable with no evidence of radiopaque gallstones, gallbladder wall thickening, or obvious pericholecystic inflammatory changes. PANCREAS: Unremarkable. SPLEEN: Unremarkable. ADRENAL GLANDS: Unremarkable. KIDNEYS AND URETERS: The kidneys are normal in size, shape, and attenuation. No hydronephrosis, hydroureter, or calculi seen. No perinephric stranding. There are a few bilateral subcentimeter low-density lesions seen within the kidneys likely representing cysts or angiomyolipomas. There is a duplicated right upper collecting system present. It appears that the ureters may fuse in the mid pelvis but difficult to tell for sure. BLADDER: Unremarkable. GASTROINTESTINAL TRACT: No dilated loops of large or small bowel are evident. No free air or free fluid. Mild sigmoid diverticulosis is present without evidence of acute diverticulitis. No pericolonic inflammatory change. The appendix is visualized and appears unremarkable. ABDOMINAL WALL: No significant hernia is appreciated. Status post previous infraumbilical midline abdominal surgery. LYMPH NODES: No lymphadenopathy appreciated. VASCULAR: Unremarkable. Visceral vessels patent. No abdominal aortic aneurysm. Minimal bilateral iliac artery calcified plaque present. Portal vein is patent. PELVIC VISCERA: Unremarkable. OSSEOUS STRUCTURES: No acute destructive bony lesions identified. There is degenerative disc disease seen at the L5-S1 level. CT/CT abdomen pelvis w con IMPRESSION: 1. Old granulomatous disease. 2. Probable some degree of fatty infiltration of the liver. 3. Prominence of the common bile duct to 8 mm in diameter in the region of the pancreatic head without pancreatic head mass or calculus identified. 4. Duplicated right renal upper collecting system with some bilateral subcentimeter low-density lesions likely representing either cysts or angiomyolipomas. 5. No evidence of obstructive uropathy or bowel obstruction. XR LUMBOSACRAL SPINE 10/25/21 CLINICAL INFORMATION: Left hip pain, lumbago. COMPARISON: 07/25/2021 TECHNIQUE: Three views of the lumbosacral spine. FINDINGS: There are 5 [id number] lumbar vertebra. The bony texture and alignment is satisfactory. Pedicles are intact. There is mild narrowing of the L5-S1 disc space. There is facet arthropathy seen bilaterally at L5-S1. No acute fracture, spondylolisthesis, or spondylolysis identified. XR/XR lumbar spine 2-3V IMPRESSION: No acute fracture, spondylolisthesis, or spondylolysis. Bilateral facet arthropathy L5-S1 with mild disc space narrowing at L5-S1. LUMBAR SPINE, RIGHT ELBOW 07/25/21 CLINICAL INFORMATION: Fall with back and elbow pain COMPARISON: CT abdomen pelvis 01/15/2020 TECHNIQUE: 3 views right elbow, 3 views lumbar spine FINDINGS: Elbow: No bone, joint or soft tissue abnormality is seen. Lumbar spine: Disc spaces and vertebral heights are well preserved. No bony destructive lesions seen. No acute fractures detected. XR/XR lumbar spine 2-3V IMPRESSION: Negative radiographs of the right elbow and lumbar spine CT ABDOMEN AND PELVIS WITHOUT CONTRAST 03/24/21 CLINICAL INFORMATION: Flank pain. Question renal stones. COMPARISON: CT of the abdomen and pelvis without contrast dated January 14, 2021. TECHNIQUE: Multidetector volumetric imaging was performed from the superior aspect of the liver through the pubic symphysis. Sagittal and coronal reformatted images were obtained on the technologist's workstation. This CT examination was performed using dose optimization techniques as appropriate, variously including the following: *Automated exposure control *Adjustment of mA and/or kV according to patient size (this includes techniques or standardized protocols for targeted exams where dose is matched to indication/reason for exam; i.e. extremities or head) *Use of iterative reconstruction technique DLP: 360 mGy-cm FINDINGS: LINES AND TUBES: None. LOWER THORAX: Lung bases are clear. Small right basilar calcified granuloma (3:6). Heart is normal in size. No pericardial effusion or thickening. HEPATOBILIARY: The liver is normal in size, contour, and attenuation. No focal hepatic lesions. The gallbladder is present and otherwise unremarkable. No biliary dilatation. SPLEEN: Normal. PANCREAS: Normal. ADRENALS: Normal. KIDNEYS/URETERS: Duplicated right collecting collecting system is noted with two separate right ureters which are best appreciated at (3:40). The ureters are normal throughout their course. No ureteral calculi. No right renal calculi. Normal left kidney. Normal left ureter. BLADDER: Urinary bladder is normal in appearance. No urinary bladder calculi appreciated. PELVIC ORGANS: Vaginal cuff is noted. Uterus is not visualized. No adnexal mass. GI TRACT: No dilated or thick walled loops of bowel. Few sigmoid colon diverticula. The appendix is normal (3:54). PERITONEUM/RETROPERITONEUM AND MESENTERY: No intraperitoneal free air or fluid. LYMPH NODES: No pathologically enlarged lymph nodes. VESSELS: Normal in caliber. Mild aortoiliac atherosclerotic calcification. BONES AND SOFT TISSUES: No aggressive osseous lesions. CT/CT abdomen pelvis wo con IMPRESSION: 1. Duplicated right renal collecting system. No renal, ureteral, or urinary bladder calculi. 2. Few sigmoid colon diverticula. No evidence of diverticulitis. Ct abdomen/pelvis 01/14/21 CT ABDOMEN AND PELVIS WITHOUT CONTRAST CLINICAL INFORMATION: Right flank pain. Dysuria. Evaluate for pyelonephritis. COMPARISON: Previous CT of the abdomen and pelvis June 2020 TECHNIQUE: Multidetector volumetric imaging was performed from the superior aspect of the liver through the pubic symphysis. Sagittal and coronal reformatted images were obtained on the technologist's workstation. This CT examination was performed using dose optimization techniques as appropriate, variously including the following: *Automated exposure control *Adjustment of mA and/or kV according to patient size (this includes techniques or standardized protocols for targeted exams where dose is matched to indication/reason for exam; i.e. extremities or head) *Use of iterative reconstruction technique DLP: 455 mGy-cm FINDINGS: LUNG BASES: The visualized lung bases are unremarkable. LIVER, GALLBLADDER, AND BILIARY TREE: The liver is normal in size, shape, and attenuation. No focal hepatic lesion or biliary ductal dilatation is present. The gallbladder is unremarkable with no evidence of radiopaque gallstones, gallbladder wall thickening, or obvious pericholecystic inflammatory changes. PANCREAS: Unremarkable. SPLEEN: Unremarkable. ADRENAL GLANDS: Unremarkable. KIDNEYS AND URETERS: There is a duplicated right renal collecting system. The kidneys are otherwise normal. No stone or hydronephrosis is seen. No ureteral dilatation or ureteral stone is seen. Pyelonephritis is difficult to evaluate without IV contrast. No cortical thickening, focal lesion or perinephric stranding or fluid is seen. BLADDER: Unremarkable. GASTROINTESTINAL TRACT: There is mild diverticulosis of the colon. The small and large bowel are otherwise unremarkable. The appendix is unremarkable. ABDOMINAL WALL: As evidence of previous low ventral hernia repair with mesh. LYMPH NODES: There is shotty small bowel mesentery lymphadenopathy in the right lower quadrant. No enlarged lymph nodes are seen. There is no ascites. VASCULAR: Unremarkable. PELVIC VISCERA: The whole the uterus appears to have been removed. No pelvic mass is seen. OSSEOUS STRUCTURES: Unremarkable. CT/CT abdomen pelvis wo con IMPRESSION: Duplicated right renal collecting system. Mild diverticulosis of the colon. ULTRASOUND SOFT TISSUE HEAD AND NECK 11/08/20 CLINICAL INFORMATION: Malignant neoplasm of thyroid gland. Follow up lymph nodes. COMPARISON: Ultrasound neck 07/17/2020. TECHNIQUE: Ultrasound imaging of neck lymph nodes was performed. FINDINGS: There are several bilateral lymph nodes seen. Right Neck: 1. Level Ib lymph node measuring 1.7 x 0.4 x 1.2 cm. It has a slit-like hilum and appears abnormal. Previously it measured 1.7 x 0.5 x 1.9 cm. 2. The previously seen 0.6 x 0.4 x 0.5 cm level 1B lymph node is not visualized at this time. Left Neck: 1. Level Ib lymph node measures 2.6 x 0.6 x 1.0 cm. It is abnormal and has a slit-like hilum. Previously it measured 2.6 x 0.6 x 1.2 cm. 2. Level 2 lymph node measures 1.9 x 0.5 x 1.4 cm. It is abnormal and has an absent hilum and has cystic features. Previously it measured 2.1 x 0.4 x 1.4 cm. 3. The previously seen 0.7 x 0.6 x 1.0 cm level 2 lymph node is not visualized at this time. US/US soft tiss head and/or neck IMPRESSION: At least 1 solitary abnormal lymph node in the right neck and 2 abnormal-appearing lymph nodes in the left neck essentially unchanged in size. [facility] Medical History Palpitations Non-cardiac chest pain Pelvic pain Leg pain Bladder pain Lower abdominal pain Gross hematuria Toe pain Right knee pain Effusion, right knee Dysuria Pelvic pain in female Hematuria Mass of spine Hematuria Type 2 diabetes mellitus with polyneuropathy DM2 (diabetes mellitus, type 2) Nail deformity Paronychia Failure of spinal cord stimulator Thymoma Pulmonary nodules Thyroid cancer Blood in urine Constipation by delayed colonic transit Tubular adenoma of colon Gastritis Hypertension Dyslipidemia Post-surgical hypothyroidism Primary thyroid cancer Vitamin D deficiency Surgical History History of thymectomy History of back surgery Hx of colonoscopy Hx of thyroidectomy Hx of hernia repair Hx of section Hx of hysterectomy History of esophagogastroduodenoscopy (EGD) Family History Father Stroke Heart attack Mother Diabetes mellitus Family/Other Family history of cancer Sister Stomach cancer Family/Other Thyroid cancer Social History Household Members: Spouse, Children and Other Alcohol intake: unknown Patient Tobacco Use Status: Former Tobacco user Tobacco use type: Cigarette Second Hand Smoke Exposure: No Sexual orientation: Straight/Heterosexual Gender identity: Female Physical Exam Vital Signs: Last Vital Signs Pulse 96 09/26/24 08:46 BP 132/82 09/26/24 08:46 BMI result Body Mass Index 25.4 Assessment & Plan Assessment & Plan (1) History of thyroid cancer: Code(s): Z85.850 - Personal history of malignant neoplasm of thyroid Category: Medical Plan: 63-year-old female coming in today for follow up of papillary thyroid cancer status post total thyroidectomy in 2009 with central neck dissection, noted to have multifocal bilateral disease with largest focus measuring 2.7 cm, with capsular invasion and extrathyroidal extension, initial KAL high-risk of recurrence, AJCC stage I, (though there is M1 listed on her TNM pathology, this is unclear whether this is error because there was no mention of distant metastatic disease), status post 150 mCi of I 131 in 07/2010. In 07/2015, status post right paratracheal lesion resection (1.5 cm consistent with PTC). She subsequently has had multiple neck ultrasounds in the interim which pointed abnormal-appearing lymph nodes, however FNA of these done in 2017, 2018, 2021 have been consistently unremarkable with no evidence of metastatic disease. Her non stimulated TG levels remain undetectable. Last whole-body scan from January 2021 did not show any evidence of abnormal iodine uptake, stimulated TG 0.8 again very reassuring. However some things in her history are confusing such as in 2013 she apparently had a whole-body scan which demonstrated distant uptake in the neck, chest and abdomen. But scan in 2011 previously was negative. This is unclear if they were referring to physiologic uptake or suspected metastatic disease in 2013. However this abnormal uptake is not correlated with any anatomical imaging given MRI abdomen subsequently in 2014 was unremarkable ( I dont have the report of this available) , and she has had CT chest most recently in August 2023 which showed stable size of her lung nodules largest measuring 6 mm. She does not have any upcoming follow up with Pulmonary and I have given her the number of her water manager to see if she can schedule a follow up given that her last CT chest was from August 2023. I might plan to repeat this myself if she does not get follow up with pulmonology. Given that her right paratracheal lesion that was resected in 2014 was consistent with metastatic PTC that was not picked up in her whole-body scan, there is a concern whether she could have had de diffrenetiated disease, in which case whole-body scans and thyroglobulin levels would not alert test to recurrence. However she is almost 10 years out of that surgery and doing well, she does not have any significant compressive symptoms, her respiratory status is normal with no shortness of breath. Her last ultrasound of the neck completed October 2023 showed stable size of the left level 2 lymph node which is without a clear hilum but is oval in shape and stable in size compared to June 2022. I will order repeat ultrasound of the neck. We will repeat her TG tumor markers. Despite the unclear parts of her HPI, I would say currently she is KAL excellent response to therapy based on her thyroglobulin levels and no definitive disease in the neck . Her TSH goal would be between 0.5-2. Plan: -ordered ultrasound of the neck -ordered TG, TG antibody, TSH, free T4 -continue levothyroxine 112 mcg daily -determine follow up with pulmonology, consider repeating CT chest (2) Post-surgical hypothyroidism: Code(s): E89.0 - Postprocedural hypothyroidism Category: Medical Plan: Currently KAL excellent response to therapy. Her TSH goal would be between 0.5-2. Plan: -ordered TG, TG antibody, TSH, free T4 -continue levothyroxine 112 mcg daily Plan I spent 45 minutes in reviewing the record, seeing the patient and documenting in the medical record. Orders: Orders Thyroid Stimulating Hormone Today Z85.850 - Personal history of malignant neoplasm of thyroid Thyroglobulin Antibodies Today Z85.850 - Personal history of malignant neoplasm of thyroid Thyroglobulin Tumor Marker Today Z85.850 - Personal history of malignant neoplasm of thyroid US soft tiss head and/or neck Today Z85.850 - Personal history of malignant neoplasm of thyroid Thyroglobulin Today Z85.850 - Personal history of malignant neoplasm of thyroid Free T4 (Free Thyroxine) Today Z85.850 - Personal history of malignant neoplasm of thyroid Patient Instructions: Do blood work today Do ultrasound of the neck Call your lung doctors office at ?tel:[phone] Dr. Joel Sherman regarding your follow up for lung nodules I will see youabck in 6 weeks to discuss results Hazte an?lisis de jerrod hoy Hacer ecograf?a del rosaura. Llame al consultorio de chambers m?dico pulmonar al tel:[phone] Dr. Joel Sherman con respecto a chambers seguimiento de n?dulos pulmonares. Nos vemos en 6 semanas para discutir los resultados. Coding Level of Care Code Est Pt Level 5 (24355) Complex EM visit Add On G2211 Diagnoses History of thyroid cancer Z85.850 Post-surgical hypothyroidism E89.0 Time Spent (min) 45
== END 2024-09-26 09:28 | disposition home or self-care (01) ==
PROVIDERS: PCP Student in an Organized Health Care Education/Training Program; Visit Provider Student in an Organized Health Care Education/Training Program
DX: E89.0 Postprocedural hypothyroidism (principal); Z85.850 Personal history of malignant neoplasm of thyroid
CPT/HCPCS: 99215

== ENCOUNTER → 2024-09-26 08:39 | Outpatient (BNVA) | payer OTHER, SELFPAY | PROVIDERS: PCP Student in an Organized Health Care Education/Training Program; Visit Provider Student in an Organized Health Care Education/Training Program ==

== ENCOUNTER 2024-09-26 09:45 | Outpatient (REF) | payer OTHER, SELFPAY ==
[2024-09-26 11:38] LABS: Free T4 (Free Thyroxine) 1.26 ng/dL (0.71-1.85); Thyroid Stimulating Hormone 0.92 uIU/mL (0.32-4.0)
[2024-09-27 11:13] LABS: Thyroglobulin 0.1 ng/mL; Thyroglobulin Antibodies <1 IU/mL (< or = 1)
[2024-09-29 03:58] LABS: Thyroglobulin Antibody <1 IU/mL (<=1); Thyroglobulin Level <0.1 ng/mL
== END 2024-09-26 09:46 | disposition home or self-care (01) ==
LOC: HO.10HDL 09:45
PROVIDERS: Visit Provider Student in an Organized Health Care Education/Training Program
DX: Z85.850 Personal history of malignant neoplasm of thyroid (principal)
CPT/HCPCS: 36415; 84432; 84439; 84443; 86800

== ENCOUNTER 2024-09-27 06:16 | Outpatient (REF) | payer OTHER, SELFPAY | END 2024-09-27 06:17 | disposition home or self-care (01) | LOC: CF 06:16 | PROVIDERS: Visit Provider Anesthesiology | DX: M46.1 Sacroiliitis, not elsewhere classified (principal); M51.369 Other intervertebral disc degeneration, lumbar region without mention of lumbar back pain or lower extremity pain; M53.3 Sacrococcygeal disorders, not elsewhere classified; G89.29 Other chronic pain; M47.816 Spondylosis without myelopathy or radiculopathy, lumbar region | CPT/HCPCS: 27096; J2003; J2795; Q9967 ==

== ENCOUNTER 2024-09-27 08:18 | Outpatient (AMB) | payer OTHER, SELFPAY ==
[2024-09-27 09:32] VITALS: BP 148/73; PULSE 104; RESP 16; O2SAT 99; BMI 25.3
--- NOTE | 2024-09-27 09:32 | MHC.OFFVIS ---
Vital Signs 09/27/24 09:32 09/27/24 09:33 Height 5 ft 5 in 5 ft 5 in Weight 152 lb 152 lb BMI 25.3 25.3 BP 148/73 H 148/72 H Blood Pressure Location Lt brachial Lt brachial Position Sitting Sitting Respiration 16 16 Pulse 104 H 106 H Pulse Source Pulse Oximeter Pulse Oximeter Pulse Oximetry (%) 99 100 Oxygen Delivery Method Room Air Room Air Comment pre-op post-op Intake Visit Reasons: RIGHT DIAGNOSTIC SIJ INJECTION Operations Manager Required: Yes Operations Manager Services: Operations Manager Present Operations Manager Name: Marilyn Allergies Penicillins [PENICILLINS] Allergy (Unknown, Verified 09/27/24 09:35) [facility] Medical History Palpitations Non-cardiac chest pain Pelvic pain Leg pain Bladder pain Lower abdominal pain Gross hematuria Toe pain Right knee pain Effusion, right knee Dysuria Pelvic pain in female Hematuria Mass of spine Hematuria Type 2 diabetes mellitus with polyneuropathy DM2 (diabetes mellitus, type 2) Nail deformity Paronychia Failure of spinal cord stimulator Thymoma Pulmonary nodules Thyroid cancer Blood in urine Constipation by delayed colonic transit Tubular adenoma of colon Gastritis Hypertension Dyslipidemia Post-surgical hypothyroidism Primary thyroid cancer Vitamin D deficiency Surgical History History of thymectomy History of back surgery Hx of colonoscopy Hx of thyroidectomy Hx of hernia repair Hx of section Hx of hysterectomy History of esophagogastroduodenoscopy (EGD) Family History Father Stroke Heart attack Mother Diabetes mellitus Family/Other Family history of cancer Sister Stomach cancer Family/Other Thyroid cancer Social History Household Members: Spouse, Children and Other Alcohol intake: unknown Patient Tobacco Use Status: Former Tobacco user Tobacco use type: Cigarette Second Hand Smoke Exposure: No Sexual orientation: Straight/Heterosexual Gender identity: Female Physical Exam Vital Signs: Last Vital Signs Pulse 106 H 09/27/24 09:33 Resp 16 09/27/24 09:33 BP 148/72 H 09/27/24 09:33 Pulse Ox 100 09/27/24 09:33 Oxygen Delivery Method Room Air 09/27/24 09:33 BMI result Body Mass Index 25.3 Assessment & Plan Assessment & Plan (1) Disc degeneration, lumbar: Code(s): M51.36 - Other intervertebral disc degeneration, lumbar region Category: Medical (2) Sacroiliitis: Code(s): M46.1 - Sacroiliitis, not elsewhere classified Category: Medical (3) Chronic right SI joint pain: Code(s): M53.3 - Sacrococcygeal disorders, not elsewhere classified; G89.29 - Other chronic pain Category: Medical (4) Spondylosis of lumbar region without myelopathy or radiculopathy: Code(s): M47.816 - Spondylosis without myelopathy or radiculopathy, lumbar region Category: Medical Plan Right diagnostic sacroiliac joint injection Informed consent was explained thoroughly to the patient.? All questions about benefits and risks for the procedure were answered. Patient came to the operating room and was positioned prone on the operating table with the pillow under the abdomen. The lower back and buttocks of the patient were prepped with ChloraPrep prepped and draped with sterile utility towels.? Sterilely draped C-arm was brought over the operating field and sq picture of patient's pelvis was demonstrated on the screen.? For the right joint tilting C-arm contralateral to the site of the joint the most posterior portion of the joints was superimposed with anterior silhouette of the joint.? Skin was injected in the projection of the joint slightly medial to the location of the joint with 25 gauge 1/2 inch needle using local lidocaine 2% . After that 22 gauge 3 and 1/2 inch needle was driven to the right joint in tunnel vision fashion.? When needle entered the joint capsule injection of the contrast was performed demonstrating intra-articular and minimally periarticular spread of the contrast.? After that 5 cc. of ropivacaine 0.5% was injected in the joint. Upon completion of the injections the needle was removed and Band-Aid was applied.? Upon completion of the injection patient was taken outside of the operating room to the recovery room where recovered uneventfully. Orders: Orders FL guidance in treatment room Today M46.1 - Sacroiliitis, not elsewhere classified Coding Level of Care Code Procedure Only Diagnoses Disc degeneration, lumbar M51.36 Sacroiliitis M46.1 Chronic right SI joint pain M53.3; G89.29 Spondylosis of lumbar region without myelopathy or radiculopathy M47.818
[2024-09-27 09:33] VITALS: BP 148/72; PULSE 106; RESP 16; O2SAT 100; BMI 25.3
== END 2024-09-27 09:31 | disposition home or self-care (01) ==
LOC: HO.PMCPRC 08:18
PROVIDERS: PCP Student in an Organized Health Care Education/Training Program; Visit Provider Anesthesiology
DX: M46.1 Sacroiliitis, not elsewhere classified (principal); M53.3 Sacrococcygeal disorders, not elsewhere classified
CPT/HCPCS: 27096

== ENCOUNTER 2024-10-03 13:31 | Outpatient (AMB) | payer OTHER, SELFPAY ==
--- NOTE | 2024-10-03 13:54 | MHC.OFFVIS ---
Vital Signs 10/03/24 14:04 Height 5 ft 5 in Weight 149 lb 6 oz BMI 24.9 BP 128/68 Blood Pressure Location Lt brachial Position Sitting Respiration 16 Pulse 91 Pulse Source Pulse Oximeter Pulse Oximetry (%) 100 Oxygen Delivery Method Room Air Intake Visit Reasons: RIGHT DIAGNOSTIC SIJ INJECTION Intake Note: Patient comes in for post-op. Reports pain 8/10. Supervisor Beater Room Required: Yes Supervisor Beater Room Services: Supervisor Beater Room Offered & Declined Supervisor Beater Room Name: Friend Janice Allergies Penicillins [PENICILLINS] Allergy (Unknown, Verified 10/03/24 14:06) HIVES HPI Comments Details: Sapna is very pleasant 63 years old female who is today in my office after diagnostic right sacroiliac joint injection. She reported no improvement after the procedure short of immediately after the injection her pain became 2/10 from 7/10. Her pain remained 6 to 8/10 for the 1st few hours after the procedure. In additional notes she noted that her pain even increased after 6 hours after the procedure. The patient is suffering from multiple pain generators. However right sacroiliac joint is unlikely the patient is pain generators. To further diagnose the patient's condition I decided to perform CT myelogram, she can not go into the MRI for the reasons described below. Prior: complains on pain in the right posterior hip with radiation into anterior hip and anterior thigh. She was under care in this office with right knee pain and she received [employer] spinal cord stimulator in the lumbar position L1-L2 L3 to stimulate the dorsal roots of L1-L2 and L3 to help her pain in the knee. Since then she had several falls and she was sent to CT scan with and without contrast. Unfortunately some impedances were lost at her spinal cord stimulator and MRI is contraindicated for her. On the CT scan all levels lumbar spine appears to be normal, see the full dictation as below, accept L5-S1 level where the degenerative disc and endplate changes as well as arthritis. . [facility] Medical History Palpitations Non-cardiac chest pain Pelvic pain Leg pain Bladder pain Lower abdominal pain Gross hematuria Toe pain Right knee pain Effusion, right knee Dysuria Pelvic pain in female Hematuria Mass of spine Hematuria Type 2 diabetes mellitus with polyneuropathy DM2 (diabetes mellitus, type 2) Nail deformity Paronychia Failure of spinal cord stimulator Thymoma Pulmonary nodules Thyroid cancer Blood in urine Constipation by delayed colonic transit Tubular adenoma of colon Gastritis Hypertension Dyslipidemia Post-surgical hypothyroidism Primary thyroid cancer Vitamin D deficiency Surgical History History of thymectomy History of back surgery Hx of colonoscopy Hx of thyroidectomy Hx of hernia repair Hx of section Hx of hysterectomy History of esophagogastroduodenoscopy (EGD) Family History Father Stroke Heart attack Mother Diabetes mellitus Family/Other Family history of cancer Sister Stomach cancer Family/Other Thyroid cancer Social History Household Members: Spouse, Children and Other Alcohol intake: unknown Patient Tobacco Use Status: Former Tobacco user Tobacco use type: Cigarette Second Hand Smoke Exposure: No Sexual orientation: Straight/Heterosexual Gender identity: Female Review of Systems Const All systems reviewed & are unremarkable except as noted in HPI and below Physical Exam Vital Signs: Last Vital Signs Pulse 91 10/03/24 14:04 Resp 16 10/03/24 14:04 BP 128/68 10/03/24 14:04 Pulse Ox 100 10/03/24 14:04 Oxygen Delivery Method Room Air 10/03/24 14:04 BMI result Body Mass Index 24.9 Const General: no acute distress and alert Orientation/consciousness: patient oriented x3 Chest Chest palpation & inspection: normal inspection of the chest Resp Effort & Inspection: normal respiratory effort, able to speak in complete sentences, normal respiratory pattern, no audible wheezes and no cough Cardio Jugular venous distension: no JVD Neuro General: patient oriented x3 Extrem Other: Right Knee: Mild effusion Global, non-specific TTP Assessment & Plan Assessment & Plan (1) Spondylosis of lumbar region without myelopathy or radiculopathy: Code(s): M47.816 - Spondylosis without myelopathy or radiculopathy, lumbar region Category: Medical (2) Disc degeneration, lumbar: Code(s): M51.36 - Other intervertebral disc degeneration, lumbar region Category: Medical (3) Lumbar radiculopathy: Code(s): M54.16 - Radiculopathy, lumbar region Category: Medical (4) Back pain: Code(s): M54.9 - Dorsalgia, unspecified Category: Medical Qualifiers: Back pain laterality: right Back pain location: low back pain Chronicity: chronic Sciatica laterality: sciatica of right side Sciatica presence: with sciatica Qualified Code(s): M54.41 - Lumbago with sciatica, right side; - Other chronic pain (5) Sacroiliitis: Code(s): M46.1 - Sacroiliitis, not elsewhere classified Category: Medical (6) Chronic right SI joint pain: Code(s): M53.3 - Sacrococcygeal disorders, not elsewhere classified; - Other chronic pain Category: Medical Plan Sapna is longstanding patient of mine who received treatment for right arthritis of the knee was [employer] spinal cord stimulator. Now she complains on pain in the right thigh and right hip unfortunately diagnostic SI joint injection resulted in no pain improvement. Her CT scan is positive for L5-S1 endplate changes and facet arthropathy. To confirm or deny proper diagnosis I decided to perform CT myelogram to diagnose properly the sources of her pain. [employer] spinal cord stimulator truck sales representative interrogated her device. There are some discrepancies in her impedance and she can not go to MRI machine. Nevertheless the device is working and helps her pain in the knee. She reported in the past several accidents and falls and this might be affecting the impedance of the device. Orders: Orders CT lumbar post myelography 4 Weeks - Other chronic pain, M47.816 - Spondylosis without myelopathy or radiculopathy, lumbar region, M51.36 - Other intervertebral disc degeneration, lumbar region, M54.16 - Radiculopathy, lumbar region, M54.41 - Lumbago with sciatica, right side Coding Level of Care Code Est Pt Level 3 (32305) Diagnoses Spondylosis of lumbar region without myelopathy or radiculopathy M47.816 Disc degeneration, lumbar M51.36 Lumbar radiculopathy M54.16 Chronic right-sided low back pain with right-sided sciatica M54.41; Back pain laterality: right Back pain location: low back pain Chronicity: chronic Sciatica laterality: sciatica of right side Sciatica presence: with sciatica Sacroiliitis M46.1 Chronic right SI joint pain M53.3;
[2024-10-03 14:04] VITALS: BP 128/68; PULSE 91; RESP 16; O2SAT 100; BMI 24.9
== END 2024-10-03 14:21 | disposition home or self-care (01) ==
PROVIDERS: PCP Student in an Organized Health Care Education/Training Program; Visit Provider Anesthesiology
DX: M47.816 Spondylosis without myelopathy or radiculopathy, lumbar region (principal); M51.369 Other intervertebral disc degeneration, lumbar region without mention of lumbar back pain or lower extremity pain; M54.16 Radiculopathy, lumbar region; M54.41 Lumbago with sciatica, right side; G89.29 Other chronic pain; M46.1 Sacroiliitis, not elsewhere classified; M53.3 Sacrococcygeal disorders, not elsewhere classified
CPT/HCPCS: 99213

== ENCOUNTER → 2024-10-03 13:31 | Outpatient (BNVA) | payer OTHER, SELFPAY | PROVIDERS: PCP Student in an Organized Health Care Education/Training Program; Visit Provider Anesthesiology ==

== ENCOUNTER 2024-10-07 12:08 | Outpatient (REF) | payer OTHER, SELFPAY | END 2024-10-07 12:09 | disposition home or self-care (01) | LOC: HO.US 12:08 | PROVIDERS: PCP Student in an Organized Health Care Education/Training Program; Visit Provider Student in an Organized Health Care Education/Training Program | DX: Z85.850 Personal history of malignant neoplasm of thyroid (principal) | CPT/HCPCS: 76536 ==

== ENCOUNTER → 2024-10-07 12:10 | Outpatient (BNV) | payer OTHER, SELFPAY | PROVIDERS: PCP Student in an Organized Health Care Education/Training Program; Visit Provider Radiology Diagnostic Radiology | DX: Z85.850 Personal history of malignant neoplasm of thyroid (principal) | CPT/HCPCS: 76536 ==

== ENCOUNTER 2024-10-11 06:30 | Day surgery (SDC) | payer OTHER, SELFPAY ==
--- NOTE | ~2024-10-11 | CT_ITS ---
EXAMINATION: CT LUMBAR SPINE MYELOGRAPHY. CLINICAL INFORMATION: Spondylosis lumbar region, lumbago with sciatica right-sided. Spinal stimulator placement. COMPARISON: Correlation made with noncontrast CT lumbar 07/28/2024. TECHNIQUE: Lumbar myelographic contrast injection was performed prior to the CT exam. This was followed by CT imaging of the lumbar spine performed without IV contrast, utilizing spiral technique. Sagittal, coronal, and thin section axial reformatted images were constructed from the axial data set. This CT examination was performed using dose optimization techniques as appropriate, variously including the following: *Automated exposure control *Adjustment of mA and/or kV according to patient size (this includes techniques or standardized protocols for targeted exams where dose is matched to indication/reason for exam; i.e. extremities or head) *Use of iterative reconstruction technique DLP: 357 mGy-cm Exam submitted for review 10/26/2024 11:21 AM [facility]. FINDINGS: STUDY QUALITY: -Suboptimal study quality due to poor intrathecal mixing of intrathecal contrast, with suboptimal contrast opacification of L3-L5, and dense pooling contrast in the dorsal thecal sac at L5-S1. This limits sensitivity of the study. CORONAL ALIGNMENT: -Minimal levoconvex scoliosis, apex at L4. SAGITTAL ALIGNMENT: - Normal lordosis. Normal alignment without subluxations. LUMBOSACRAL JUNCTION: -Normal. There are 5 [id number] lumbar-type vertebral bodies. VERTEBRAL BODIES/BONE: -Well maintained with normal height. No compression fractures, anomalies or other deformities. -No suspicious bone lesions. DISCS: -Focally severe disc degeneration at L5-S1 with disc vacuum phenomenon and mild irregular endplate changes. -Disc levels above L5 appear normal/preserved. SPINAL CANAL: -No abnormal developmental findings. -Suboptimal contrast admixing as detailed above. -8 spinal stimulator catheter enters the epidural space on the right via the right L5-S1 interlaminar space, and courses in the right lateral epidural space, with the tip terminating just below the inferior margin of the right pedicle of L1, lying within the dorsal lateral epidural space. No evidence of contrast leak. -A few intrathecal bubbles of gas are present from injection. Conus terminates at the mid L2 level and is normal in morphology. Within the limitations of technique, no discrete nerve root abnormalities are detected although evaluation spanning L2-L5 is limited. AXIAL DISC SPACE IMAGES: T12-L1: No central canal or neural foraminal narrowing. L1-L2: No central canal or neural foraminal narrowing. L2-L3: No central canal or neural foraminal narrowing. L3-L4: No central canal or neural foraminal narrowing. L4-L5: Minimal disc bulge without central canal narrowing. Mild bilateral neural foraminal narrowing. No changes. L5-S1: Shallow disc osteophytic ridge complex is present concentrically. This minimally indents upon the ventral thecal sac without central canal or lateral recess narrowing. There are mild to moderate hypertrophic degenerative facet changes bilaterally, with findings resulting in mild to moderate bilateral neural foraminal narrowing. IMAGED SI JOINTS: -Mild degenerative arthritis bilaterally. PARAVERTEBRAL AND INCLUDED EXTRASPINAL SOFT TISSUES: -Mild atheromatous changes of the aorta and iliac arteries without aneurysm. Remainder of the imaged soft tissues demonstrate no abnormality. CT/CT lumbar post myelography IMPRESSION: 1. Somewhat suboptimal examination from poor contrast admixing with CSF. See above. 2. Spinal stimulator lead enters via the right L5-S1 interlaminar space, and courses in the right lateral epidural space, with the tip terminating just inferior to the right pedicle of L1, dorsal lateral right epidural space. No evidence of leak. 3. Degenerative disc and facet disease relatively confined to L5-S1. No significant central canal narrowing at any level. Mild to moderate bilateral neural foraminal narrowing with disc degeneration L5-S1. 4. No suspicious or acute bony abnormalities. 5. Ancillary findings as discussed. Electronically signed by: Guanakito Melchor MD 10/26/2024 12:32 PM [facility]
[2024-10-11 06:58] VITALS: BMI 25.0
[2024-10-11 07:12] VITALS: BP 121/73; PULSE 86; RESP 16; TEMP 36.4; O2SAT 96
[2024-10-11 08:15] VITALS: BP 136/81; PULSE 78; RESP 18; TEMP 36.6; O2SAT 98
--- NOTE | 2024-10-11 08:26 | P.HPSUR_ITS ---
Pre-Procedural Eval Section A - 24 Hr Update-Section A only Date of Service: 10/11/24 The patient is an INPATIENT: No Changes since office visit: Yes Patient answered all questions The patient has been examined within 24 hours of the surgical procedure. The History & Physical has been completed within 30 days and I have reviewed it.: No Section B - Complete if H&P > 30 days Chief Complaint: SPONDYLOSIS LUMBAR REGION,LUMBAGO W/SCIATICA,RT Details of Present Illness: Above Relevant Family History (Specify if Yes): No Relevant Social History: None Present Medications: see Short Stay Collaborative assessment Medical History: No relevant PMH History of Previous Operations: Relevant previous surgery/procedure and date(s) Allergies: Allergies Allergy/AdvReac Type Severity Reaction Status Date / Time Penicillins [PENICILLINS] Allergy Unknown HIVES Verified 10/03/24 14:06 Review of Systems Sugical H&P ROS: Negative: Constitution, Cardiovascular, Respiratory, N eurological, Psychiatric, Hem-Onc, Allergic/Immunologic, Gastrointestinal, Genitourinary, Integumentary and Eyes/Ears/Nose/Throat and Yes, Specify: Musculoskeletal (As above, sacroiliitis.) and Endocrine (h/o thyroid c-a, DM type II) Exam Surgical H&P Exam: Normal: HEENT, Normal: Heart, Normal: Lungs, Normal: Extremities, Normal: Abdomen, Normal: Skin and Normal: Neurological Plan Diagnosis/Plan: Unchanged I have reviewed the history and physical and performed a pertinent physical examination on my patient. No changes have occurred unless specified. Time Spent With Patient Time: Total time managing care of this patient today ____ minutes.
--- NOTE | 2024-10-11 08:28 | PM.OP ---
Brief Operative Note Date of Service: 10/11/24 Pre-op diagnosis: Spondylosis lumbar without myelopathy or radiculopathy Post-op diagnosis: same Procedure: CT myelography Surgeon: Jcarlos Gee MD Anesthesia: local Was an Spiral Spring Winder used for this Procedure?: No Estimated blood loss (mL): 0 Condition: stable Disposition: PACU
--- NOTE | 2024-10-11 08:29 | P.OP_ITS ---
Operative Note Operative Note Date of Service: 10/11/24 Narrative: Myelography lumbar ? ?Informed consent was explained to the patient. All questions were explained and? answered.? The patient was taken inside the operating room where she was positioned prone on the operating table. Time-out was performed delineating correct site, side, the nature of the procedure, patient's allergy, . All operating room staff was participating in OR time-out procedure. ? ? The lower back was prepped with ChloraPrep and draped with sterile towels.? C- arm was brought over the operating field and sq picture of L5 vertebra and S1 AREA were delineated on the screen.? Point of interest were delineated as the upper border of L4 lamina as close to the spinous process of the L4 vertebra is possible. The projection of the point interest to the skin was injected with lidocaine 2%. After that 22 gauge 3-1/2 inch pencil point needle was inserted through the skin and advanced to the L3-L4 interlaminar interspace on anterior posterior and lateral views. When the tip of the needle was positioned in the center of the spinal canal on the lateral view stylette of the needle was removed and clear flow of CSF was observed. After that injection of the 10 mL of Isovue-M 200 contrast was performed into the needle. Upon completion of the injection the needle was removed and sterile Band-Aid was applied. the patient was transferred to the bed and taken immediately to the CT scan machine to perform CT myelogram .
[2024-10-11 08:30] VITALS: BP 139/79; PULSE 80; RESP 16; O2SAT 97
[2024-10-11 08:45] VITALS: BP 143/77; PULSE 77; RESP 18; O2SAT 97
[2024-10-11 09:00] VITALS: BP 136/82; PULSE 82; RESP 16; TEMP 36.6; O2SAT 98
== END 2024-10-11 09:10 | disposition home or self-care (01) ==
PROVIDERS: Radiology Vascular & Interventional Radiology; PCP Student in an Organized Health Care Education/Training Program; Visit Provider Anesthesiology
DX: M47.816 Spondylosis without myelopathy or radiculopathy, lumbar region (principal); M54.41 Lumbago with sciatica, right side
CPT/HCPCS: 62304; 72131; J2003; Q9967

== ENCOUNTER → 2024-10-11 06:30 | Outpatient (BNV) | payer OTHER, SELFPAY | PROVIDERS: PCP Student in an Organized Health Care Education/Training Program; Visit Provider Anesthesiology | DX: M47.816 Spondylosis without myelopathy or radiculopathy, lumbar region (principal) | CPT/HCPCS: 62284; 77003 ==

== ENCOUNTER → 2024-10-11 08:06 | Outpatient (BNV) | payer OTHER, SELFPAY | PROVIDERS: PCP Student in an Organized Health Care Education/Training Program; Visit Provider Radiology Diagnostic Radiology | DX: M47.816 Spondylosis without myelopathy or radiculopathy, lumbar region (principal) | CPT/HCPCS: 72131 ==

== ENCOUNTER 2024-10-20 10:36 | Day surgery (SDC) | payer OTHER, SELFPAY ==
[2024-06-21 11:00] VITALS: BMI 24.3
--- NOTE | 2024-06-22 09:45 | P.CONAN_ITS ---
HPI - Anesthesia Eval Consult details Narrative: 63yo F for Colonoscopy 04/2024 cardiac w/u for left side chest pain. Neg tests. Stable at 06/2024 cardiology follow up office visit with resolution of chest pain. Anesthesia Pre-Procedure Meds Is the patient on any of the following meds?: GLP1/DPP4 PMFSH Active Problems Active Problems: All Active Problems Lumbar radiculopathy (Acute) Back pain (Acute) Fall (Acute) Abnormal stress ECG (Acute) Chest discomfort (Acute) Duplex kidney (Acute) Acute UTI (Acute) Thumb locking (Acute) Palpitations (Acute) Non-cardiac chest pain (Acute) Failure of spinal cord stimulator (Acute) Chronic cystitis (Acute) Varicose veins of right lower extremity with inflammation (Acute) History of thymectomy (Acute) Pulmonary nodules (Acute) Controlled diabetes mellitus with diabetic polyneuropathy (Acute) De Quervain's tenosynovitis, left (Acute) Patellofemoral arthritis of left knee (Acute) Patellofemoral arthritis of right knee (Acute) Chronic pelvic pain in female (Acute) Dyspareunia in female (Acute) Myofascial pain (Acute) Atrophic vaginitis (Acute) Osteoarthritis of right knee (Acute) CRPS (complex regional pain syndrome type I) (Acute) History of thyroid cancer (Acute) Constipation by delayed colonic transit (Acute) Gastritis (Acute) Hypertension (Acute) Dyslipidemia (Acute) Post-surgical hypothyroidism (Acute) Primary thyroid cancer (Acute) Vitamin D deficiency (Acute) Past Medical History Medical History Palpitations Non-cardiac chest pain Pelvic pain Leg pain Bladder pain Lower abdominal pain Gross hematuria Toe pain Right knee pain Effusion, right knee Dysuria Pelvic pain in female Hematuria Mass of spine Hematuria Type 2 diabetes mellitus with polyneuropathy DM2 (diabetes mellitus, type 2) Nail deformity Paronychia Failure of spinal cord stimulator Thymoma Pulmonary nodules Thyroid cancer Blood in urine Constipation by delayed colonic transit Tubular adenoma of colon Gastritis Hypertension Dyslipidemia Post-surgical hypothyroidism Primary thyroid cancer Vitamin D deficiency Family History Family History Father Stroke Heart attack Mother Diabetes mellitus Family/Other Family history of cancer Sister Stomach cancer Family/Other Thyroid cancer Family history of problems with anesthesia: No Surgical History Surgical History History of thymectomy History of back surgery Hx of colonoscopy Hx of thyroidectomy Hx of hernia repair Hx of section Hx of hysterectomy History of esophagogastroduodenoscopy (EGD) History of Problems with Anesthesia: No Social History Social History Household Members: Spouse, Children and Other Alcohol intake: unknown Patient Tobacco Use Status: Former Tobacco user Tobacco use type: Cigarette Second Hand Smoke Exposure: No Sexual orientation: Straight/Heterosexual Gender identity: Female Meds Allergies Allergy/AdvReac Type Severity Reaction Status Date / Time Penicillins [PENICILLINS] Allergy Unknown HIVES Verified 06/16/24 09:00 Home Medications ?Medication ?Instructions ?Recorded ?Confirmed ?Last Taken ?Type albuterol sulfate 90 mcg/actuation 2 puff inhalation Q4-6H PRN 09/05/22 06/16/24 Unknown History aerosol inhaler (ProAir HFA) Wheezing metformin 500 mg tablet,extended 500 mg PO BID 11/19/23 06/16/24 Unknown History release 24 hr fluticasone propionate 50 spray intranasal 03/01/24 06/16/24 Unknown History mcg/actuation nasal spray,suspension losartan 100 1 tab PO DAILY 03/01/24 06/16/24 Unknown History mg-hydrochlorothiazide 12.5 mg tablet montelukast 10 mg tablet 10 mg PO DAILY 03/01/24 06/16/24 Unknown History levothyroxine 112 mcg capsule 112 mcg PO DAILY 04/18/24 06/16/24 Unknown History sitagliptin phosphate 50 mg tablet 50 mg PO DAILY 04/18/24 06/16/24 Unknown H istory (Januvia) Exam Height,Weight and Vital Signs: Height 5 ft 5 in Weight 66.224 kg Pertinent Lab Results Pertinent Lab Results: Laboratory Tests 01/12/24 05/16/24 08:56 11:43 WBC 7.9 Hgb 12.2 Hct 39.5 Plt Count 252 Sodium 140 Potassium 3.5 Chloride 102 Carbon Dioxide 28 BUN 21 H Creatinine 0.78 Narrative Narrative: EKG 04/2024 NSR @ 88 Holter 04/2024 1. Patient was monitored for total period of 2 days and 23 hours 2. Baseline was normal sinus rhythm with average heart rate of 89 beats per minute 3. No significant pauses or arrhythmias noted 4. No patient reported events NM cardiolite stress test 04/2024 Impression: 1. Myocardial perfusion imaging study shows likely normal myocardial perfusion. 2. Gated LVEF is >70 % during stress and 70% during rest. 3. Transient ischemic dilatation not present. EKG component of the test reported separately. Assessment and Plan Assessment Anesthesia Assessment: Chart Reviewed Final Anesthetic Review Family History of Problems with Anesthesia: No History of Problems with Anesthesia: No
--- NOTE | 2024-10-19 09:48 | HO.ANESPROP2 ---
Documented by User: July Ivy NP 10/19/24 09:51 HPI - Anesthesia Eval Consult details Narrative: 63yo F for Colonoscopy Anesthesia Pre-Procedure Meds Is the patient on any of the following meds?: GLP1/DPP4 PMFSH Active Problems Active Problems: All Active Problems Spondylosis of lumbar region without myelopathy or radiculopathy (Acute) Chronic right SI joint pain (Acute) Sacroiliitis (Acute) Disc degeneration, lumbar (Acute) Vaginitis (Acute) Lumbar radiculopathy (Acute) Back pain (Acute) Fall (Acute) Abnormal stress ECG (Acute) Chest discomfort (Acute) Duplex kidney (Acute) Acute UTI (Acute) Thumb locking (Acute) Palpitations (Acute) Non-cardiac chest pain (Acute) Failure of spinal cord stimulator (Acute) Chronic cystitis (Acute) Varicose veins of right lower extremity with inflammation (Acute) History of thymectomy (Acute) Pulmonary nodules (Acute) Controlled diabetes mellitus with diabetic polyneuropathy (Acute) De Quervain's tenosynovitis, left (Acute) Patellofemoral arthritis of left knee (Acute) Patellofemoral arthritis of right knee (Acute) Chronic pelvic pain in female (Acute) Dyspareunia in female (Acute) Myofascial pain (Acute) Atrophic vaginitis (Acute) Osteoarthritis of right knee (Acute) CRPS (complex regional pain syndrome type I) (Acute) History of thyroid cancer (Acute) Constipation by delayed colonic transit (Acute) Gastritis (Acute) Hypertension (Acute) Dyslipidemia (Acute) Post-surgical hypothyroidism (Acute) Primary thyroid cancer (Acute) Vitamin D deficiency (Acute) Past Medical History Medical History Palpitations Non-cardiac chest pain Pelvic pain Leg pain Bladder pain Lower abdominal pain Gross hematuria Toe pain Right knee pain Effusion, right knee Dysuria Pelvic pain in female Hematuria Mass of spine Hematuria Type 2 diabetes mellitus with polyneuropathy DM2 (diabetes mellitus, type 2) Nail deformity Paronychia Failure of spinal cord stimulator Thymoma Pulmonary nodules Thyroid cancer Blood in urine Constipation by delayed colonic transit Tubular adenoma of colon Gastritis Hypertension Dyslipidemia Post-surgical hypothyroidism Primary thyroid cancer Vitamin D deficiency Family History Family History Father Stroke Heart attack Mother Diabetes mellitus Family/Other Family history of cancer Sister Stomach cancer Family/Other Thyroid cancer Family history of problems with anesthesia: No Surgical History Surgical History History of thymectomy History of back surgery Hx of colonoscopy Hx of thyroidectomy Hx of hernia repair Hx of section Hx of hysterectomy History of esophagogastroduodenoscopy (EGD) History of Problems with Anesthesia: No Social History Social History Household Members: Spouse, Children and Other Alcohol intake: unknown Patient Tobacco Use Status: Former Tobacco user Tobacco use type: Cigarette Second Hand Smoke Exposure: No Sexual orientation: Straight/Heterosexual Gender identity: Female Meds Allergies Allergy/AdvReac Type Severity Reaction Status Date / Time Penicillins [PENICILLINS] Allergy Intermediate HIVES Verified 10/20/24 12:26 Home Medications ?Medication ?Instructions ?Recorded ?Confirmed ?Last Taken ?Type albuterol sulfate 90 mcg/actuation 2 puff inhalation Q4-6H PRN 09/05/22 09/26/24 Unknown History aerosol inhaler (ProAir HFA) Wheezing metformin 500 mg tablet,extended 500 mg PO BID 11/19/23 09/26/24 Unknown History release 24 hr fluticasone propionate 50 spray intranasal 03/01/24 09/26/24 Unknown History mcg/actuation nasal spray,suspension montelukast 10 mg tablet 10 mg PO DAILY 03/01/24 09/26/24 Unknown History sitagliptin phosphate 50 mg tablet 50 mg PO DAILY 04/18/24 09/26/24 Unknown History (Novuvia) sitagliptin phosphate 100 mg 100 mg PO DAILY 10/19/24 Unknown History tablet (Novuvia) sitagliptin phosphate 100 mg 100 mg PO DAILY 10/19/24 Unknown History tablet (Novuvia) Exam Height,Weight and Vital Signs: Height 5 ft 5 in Weight 66.224 kg Pertinent Lab Results Pertinent Lab Results: Laboratory Tests 07/29/24 13:02 WBC 8.0 Hgb 11.9 L Hct 36.7 L Plt Count 253 Sodium 143 Potassium 4.4 D Chloride 106 Carbon Dioxide 26 BUN 19 H Creatinine 0.86 Narrative Narrative: EKG 07/2024 Vent. Rate : 098 BPM Atrial Rate : 098 BPM P-R Int : 164 ms QRS Dur : 074 ms QT Int : 360 ms P-R-T Axes : 047 002 065 degrees QTc Int : 459 ms Normal sinus rhythm Possible Left atrial enlargement Low voltage QRS Possible Inferior infarct (cited on or before 06-MAY-2023) Cannot rule out Anterior infarct , age undetermined Abnormal ECG When compared with ECG of 06-MAY-2023 05:50, No significant change was found Holter 04/2024 1. Patient was monitored for total period of 2 days and 23 hours 2. Baseline was normal sinus rhythm with average heart rate of 89 beats per minute 3. No significant pauses or arrhythmias noted 4. No patient reported events NM cardiolite stress test 04/2024 Impression: 1. Myocardial perfusion imaging study shows likely normal myocardial perfusion. 2. Gated LVEF is >70 % during stress and 70% during rest. 3. Transient ischemic dilatation not present. Assessment and Plan Assessment Anesthesia Assessment: Chart Reviewed Final Anesthetic Review Family History of Problems with Anesthesia: No History of Problems with Anesthesia: No Documented by User: Gloria Puente MD 10/20/24 12:36 [facility] Past Medical History Medical History Palpitations Non-cardiac chest pain Pelvic pain Leg pain Bladder pain Lower abdominal pain Gross hematuria Toe pain Right knee pain Effusion, right knee Dysuria Pelvic pain in female Hematuria Mass of spine Hematuria Type 2 diabetes mellitus with polyneuropathy DM2 (diabetes mellitus, type 2) Nail deformity Paronychia Failure of spinal cord stimulator Thymoma Pulmonary nodules Thyroid cancer Blood in urine Constipation by delayed colonic transit Tubular adenoma of colon Gastritis Hypertension Dyslipidemia Post-surgical hypothyroidism Primary thyroid cancer Vitamin D deficiency Family History Family History Father Stroke Heart attack Mother Diabetes mellitus Family/Other Family history of cancer Sister Stomach cancer Family/Other Thyroid cancer Surgical History Surgical History History of thymectomy History of back surgery Hx of colonoscopy Hx of thyroidectomy Hx of hernia repair Hx of section Hx of hysterectomy History of esophagogastroduodenoscopy (EGD) Social History Social History Household Members: Spouse, Children and Other Alcohol intake: unknown Patient Tobacco Use Status: Former Tobacco user Tobacco use type: Cigarette Second Hand Smoke Exposure: No Sexual orientation: Straight/Heterosexual Gender identity: Female Meds Allergies Allergy/AdvReac Type Severity Reaction Status Date / Time Penicillins [PENICILLINS] Allergy Intermediate HIVES Verified 10/20/24 12:26 Home Medications ?Medication ?Instructions ?Recorded ?Confirmed ?Last Taken ?Type albuterol sulfate 90 mcg/actuation 2 puff inhalation Q4-6H PRN 09/05/22 09/26/24 Unknown History aerosol inhaler (ProAir HFA) Wheezing metformin 500 mg tablet,extended 500 mg PO BID 11/19/23 09/26/24 Unknown History release 24 hr fluticasone propionate 50 spray intranasal 03/01/24 09/26/24 Unknown History mcg/actuation nasal spray,suspension montelukast 10 mg tablet 10 mg PO DAILY 03/01/24 09/26/24 Unknown History sitagliptin phosphate 50 mg tablet 50 mg PO DAILY 04/18/24 09/26/24 Unknown History (Januvia) sitagliptin phosphate 100 mg 100 mg PO DAILY 10/19/24 Unknown History tablet (Novuvia) sitagliptin phosphate 100 mg 100 mg PO DAILY 10/19/24 Unknown History tablet (Novuvia) Exam Airway Mallampati Class: II TM Dist: >3cm Neck ROM: Full Heart: rrr Lungs: cta Assessment and Plan Assessment Anesthesia Assessment: Anesthesia Plan Discussed Final Anesthetic Review NPO: Yes ASA Class: III Final Preanesthetic Review: No Changes in Pt Med Stat, Meds/Allgs Chart Reviewed, Consent Obtained/Reviewed and Anes Risks/Benef Reviewed Patient Risk: Intermediate Procedure Risk: Low Anesthetic Plan Anesthetic Plan: MAC: Disposition: Standard PACU
[2024-10-20] MEDS: Lactated Ringers 1,000 ML 100 ML IVCONT (12:36)
[2024-10-20 12:55] VITALS: BP 130/81; PULSE 80; RESP 16; TEMP 36.7; O2SAT 100
--- NOTE | 2024-10-20 13:22 | P.OPN-COLO_ITS ---
Colonoscopy Operative Note Operative Note Date of Service: 10/20/24 Narrative: Procedure: Colonoscopy Indication: Lower abd pain Endoscopist: Elizabeth Jaime MD Anesthesia Provider: Aydee Barros CRNA Anesthesia type: MAC Instrument: Olympus [id number]-H190L Consent: Indication, risks vs benefits, and alternatives were discussed with the patient who gave written informed consent to proceed. An crime scene photographer was utilized to assist with the consent. EKG, pulse, pulse oximetry and blood pressure were monitored throughout the procedure. Please see anesthesia flowsheet. Procedure: The patient was brought to the procedure room and placed in the left lateral decubitus position. IV medications were administered by the anesthesia provider in attendance. A digital rectal exam was performed which was normal. A distal attachment cap was affixed to the tip of the colonoscope which was then inserted through the anus and advanced through the colon to the cecum at 80 cm. Appendiceal orifice and ileocecal valve were identified. Mucosa was carefully examined under high definition white light as the instrument was slowly withdrawn in a retrograde panoramic fashion. Retroflexion was performed in rectum. The procedure was not difficult. There were no immediate obvious complications. The quality of the prep was BBPS: 1+2+1 = inadequate Withdrawal time 7 minutes. Limitations: Poor prep. Findings: Mucosa: Copious liquid and semi-solid fecal debris was present throughout the colon. This severely limited visualization specially in the sigmoid colon and right-sided colon. Protruding lesions: * Medium internal hemorrhoids without stigmata of recent bleeding. Excavated lesions: * Moderate diverticulosis of left sided colon. Impression: 1. Poor prep 2. Diverticulosis 3. Internal hemorrhoids Recommendations: - A repeat colonoscopy will be set up within 12 months due to poor prep today.
--- NOTE | 2024-10-20 13:22 | MHC.SHP ---
Pre-Procedural Eval Section A - 24 Hr Update-Section A only Date of Service: 10/20/24 Section B - Complete if H&P > 30 days Chief Complaint: Constipation, unspecified Details of Present Illness: Palpitations Non-cardiac chest pain Pelvic pain Leg pain Bladder pain Lower abdominal pain Gross hematuria Toe pain Right knee pain Effusion, right knee Dysuria Pelvic pain in female Hematuria Mass of spine Hematuria Type 2 diabetes mellitus with polyneuropathy DM2 (diabetes mellitus, type 2) Nail deformity Paronychia Failure of spinal cord stimulator Thymoma Pulmonary nodules Thyroid cancer Blood in urine Constipation by delayed colonic transit Tubular adenoma of colon Gastritis Hypertension Dyslipidemia Post-surgical hypothyroidism Primary thyroid cancer Vitamin D deficiency Surgical History (Reviewed 05/11/24 @ 12:04 by Bernardo Warren [facility]) History of thymectomy History of back surgery Hx of colonoscopy Hx of thyroidectomy Hx of hernia repair Hx of section Hx of hysterectomy History of esophagogastroduodenoscopy (EGD) Allergies: Allergies Allergy/AdvReac Type Severity Reaction Status Date / Time Penicillins [PENICILLINS] Allergy Intermediate HIVES Verified 10/20/24 12:57 Review of Systems Review of Systems Comment: Ten point ROS negative Exam Exam Comment: Gen appear: No acute distress HEENT: no icterus Chest: No overt resp distress Abd: soft, nontender, nondistended Psych: Stable affect, answering questions appropriately Neuro: A/Ox3 noted to move all extremities spontaneously Ext: no peripheral edema Plan Diagnosis/Plan: Unchanged I have reviewed the history and physical and performed a pertinent physical examination on my patient. No changes have occurred unless specified. Time Spent With Patient Time: Total time managing care of this patient today ____ minutes.
[2024-10-20 14:00] VITALS: BP 87/41; PULSE 87; RESP 16; TEMP 36.1; O2SAT 97
[2024-10-20 14:05] VITALS: BP 93/51; PULSE 79; RESP 16; O2SAT 97
[2024-10-20 14:15] VITALS: BP 124/79; PULSE 80; RESP 16; O2SAT 99
[2024-10-20 14:30] VITALS: BP 141/74; PULSE 68; RESP 16; TEMP 36.1; O2SAT 98
[2024-10-20 16:19] LABS: Glucose, Whole Blood 115 mg/dL (60-115)
== END 2024-10-20 15:13 | disposition home or self-care (01) ==
PROVIDERS: PCP Student in an Organized Health Care Education/Training Program; Visit Provider Internal Medicine
PROC: 0DJD8ZZ Inspection of Lower Intestinal Tract, Via Natural or Artificial Opening Endoscopic (ICD-10-PCS; CPT 45378; principal; 2024-10-20 12:50)
DX: K57.30 Diverticulosis of large intestine without perforation or abscess without bleeding (principal); K64.8 Other hemorrhoids; K59.00 Constipation, unspecified; Z91.199 Patient's noncompliance with other medical treatment and regimen due to unspecified reason; E11.9 Type 2 diabetes mellitus without complications; I10 Essential (primary) hypertension; E78.5 Hyperlipidemia, unspecified; Z85.850 Personal history of malignant neoplasm of thyroid
CPT/HCPCS: 45378; 82947; J2003; J2704

== ENCOUNTER → 2024-10-20 10:36 | Outpatient (BNV) | payer OTHER, SELFPAY | PROVIDERS: PCP Student in an Organized Health Care Education/Training Program; Visit Provider Internal Medicine | DX: K59.00 Constipation, unspecified (principal); K57.30 Diverticulosis of large intestine without perforation or abscess without bleeding; K64.8 Other hemorrhoids; Z91.199 Patient's noncompliance with other medical treatment and regimen due to unspecified reason | CPT/HCPCS: 45378 ==

== ENCOUNTER 2024-10-26 09:24 | Outpatient (AMB) | payer OTHER, SELFPAY ==
--- NOTE | 2024-10-26 09:36 | MHC.OFFVIS ---
Vital Signs 10/26/24 09:45 Weight 152 lb BP 138/68 Blood Pressure Location Rt brachial Position Sitting Pulse 99 Pulse Oximetry (%) 100 Oxygen Delivery Method Room Air Intake Visit Reasons: Pain After Procedure Allergies Penicillins [PENICILLINS] Allergy (Intermediate, Verified 10/26/24 09:44) HIVES Medication List - Last Reconciled 10/26/24 by Sonja Anderson, DRESSAGE INSTRUCTOR acetaminophen (Tylenol) 650 mg (2 x 325 mg) PO Q6H PRN albuterol sulfate 90 mcg/actuation (ProAir HFA) 2 puffs inhalation Q4-6H PRN bisacodyl (Dulcolax (bisacodyl)) 20 mg (4 x 5 mg) PO ONCE 1 day blood sugar diagnostic (FreeStyle Lite Strips) Test blood glucose twice per day blood-glucose meter (FreeStyle Lite Meter kit) As directed flash glucose scanning reader ([employer] [place] 2 [place]) As directed fluticasone propionate 50 mcg/actuation sprays intranasal gabapentin 100 mg PO TID 30 days hydrocortisone 2.5% (Proctosol HC) 1 appl FL BID-QID PRN hydroxyzine pamoate 25 mg PO BEDTIME 30 days ibuprofen 600 mg PO Q8H PRN levothyroxine 112 mcg PO DAILY metformin ER 500 mg PO BID montelukast 10 mg PO DAILY naproxen 500 mg PO BID 30 days nitrofurantoin macrocrystal 50 mg orally use as directed post intercourse; must administer with a meal/food nitrofurantoin monohyd/m-cryst 100 mg (Macrobid) 100 mg PO BID 10 days pantoprazole 40 mg PO DAILY polyethylene glycol 3350 (Miralax) 238 grams PO ONCE 1 day polyethylene glycol 3350 (Miralax) 238 grams PO ONCE prednisone 20 mg PO DAILY 5 days sennosides (Natural Senna Laxative) 17.2 mg (2 x 8.6 mg) PO QDAY sitagliptin phosphate (Januvia) 100 mg PO DAILY HPI Comments Details: Sapna is back in my office with complains on pain in the lower back with radiation to the right lower extremity. She also reports today that she was not helped by her spinal cord stimulator for her knee pain. We performed CT myelography for this patient however it is not read yet. I called Radiology Department and I requested to expedite the reading of the patient's CT myelography with the question of whether my spinal cord stimulator lead compresses of any nerve roots exiting or passing on the right. I also placed a call to [employer] commercial sales representative and requested them to investigate, possibly introduced new programs to help her knee pain. We agreed that I will see this patient in few weeks and we will discuss the situation further. I also decided to prescribe gabapentin 300 mg q.h.s. to help her pain condition. Prior: very pleasant 63 years old female who is today in my office after diagnostic right sacroiliac joint injection. She reported no improvement after the procedure short of immediately after the injection her pain became 2/10 from 7/10. Her pain remained 6 to 8/10 for the 1st few hours after the procedure. In additional notes she noted that her pain even increased after 6 hours after the procedure. The patient is suffering from multiple pain generators. However right sacroiliac joint is unlikely the patient is pain generators. To further diagnose the patient's condition I decided to perform CT myelogram, she can not go into the MRI for the reasons described below. Prior: complains on pain in the right posterior hip with radiation into anterior hip and anterior thigh. She was under care in this office with right knee pain and she received [employer] spinal cord stimulator in the lumbar position L1-L2 L3 to stimulate the dorsal roots of L1-L2 and L3 to help her pain in the knee. Since then she had several falls and she was sent to CT scan with and without contrast. Unfortunately some impedances were lost at her spinal cord stimulator and MRI is contraindicated for her. On the CT scan all levels lumbar spine appears to be normal, see the full dictation as below, accept L5-S1 level where the degenerative disc and endplate changes as well as arthritis. . [facility] Medical History Palpitations Non-cardiac chest pain Pelvic pain Leg pain Bladder pain Lower abdominal pain Gross hematuria Toe pain Right knee pain Effusion, right knee Dysuria Pelvic pain in female Hematuria Mass of spine Hematuria Type 2 diabetes mellitus with polyneuropathy DM2 (diabetes mellitus, type 2) Nail deformity Paronychia Failure of spinal cord stimulator Thymoma Pulmonary nodules Thyroid cancer Blood in urine Constipation by delayed colonic transit Tubular adenoma of colon Gastritis Hypertension Dyslipidemia Post-surgical hypothyroidism Primary thyroid cancer Vitamin D deficiency Surgical History History of thymectomy History of back surgery Hx of colonoscopy Hx of thyroidectomy Hx of hernia repair Hx of section Hx of hysterectomy History of esophagogastroduodenoscopy (EGD) Family History Father Stroke Heart attack Mother Diabetes mellitus Family/Other Family history of cancer Sister Stomach cancer Family/Other Thyroid cancer Social History Household Members: Spouse, Children and Other Are you a primary intensive care specialist to a significant other at home: No Do you presently have visiting nurse or other home services: No Alcohol intake: unknown Patient Tobacco Use Status: Former Tobacco user Tobacco use type: Cigarette Second Hand Smoke Exposure: No Sexual orientation: Straight/Heterosexual Gender identity: Female Review of Systems Const All systems reviewed & are unremarkable except as noted in HPI and below Physical Exam Vital Signs: Last Vital Signs Pulse 99 10/26/24 09:45 BP 138/68 10/26/24 09:45 Pulse Ox 100 10/26/24 09:45 Oxygen Delivery Method Room Air 10/26/24 09:45 Const General: no acute distress and alert Orientation/consciousness: patient oriented x3 Chest Chest palpation & inspection: normal inspection of the chest Resp Effort & Inspection: normal respiratory effort, able to speak in complete sentences, normal respiratory pattern, no audible wheezes and no cough Cardio Jugular venous distension: no JVD Neuro General: patient oriented x3 Extrem Other: Right Knee: Mild effusion Global, non-specific TTP Assessment & Plan Assessment & Plan (1) Spondylosis of lumbar region without myelopathy or radiculopathy: Code(s): M47.816 - Spondylosis without myelopathy or radiculopathy, lumbar region Category: Medical (2) Disc degeneration, lumbar: Code(s): M51.36 - Other intervertebral disc degeneration, lumbar region Category: Medical (3) Lumbar radiculopathy: Code(s): M54.16 - Radiculopathy, lumbar region Category: Medical (4) Back pain: Code(s): M54.9 - Dorsalgia, unspecified Category: Medical Qualifiers: Back pain location: low back pain Chronicity: chronic Back pain laterality: right Sciatica presence: with sciatica Sciatica laterality: sciatica of right side Qualified Code(s): M54.41 - Lumbago with sciatica, right side; G89.29 - Other chronic pain (5) Sacroiliitis: Code(s): M46.1 - Sacroiliitis, not elsewhere classified Category: Medical (6) Chronic right SI joint pain: Code(s): M53.3 - Sacrococcygeal disorders, not elsewhere classified; G89.29 - Other chronic pain Category: Medical Plan Sapna is longstanding patient of mine who received treatment for right arthritis of the knee with [employer] spinal cord stimulator. Now she complains on pain in the right thigh and right hip unfortunately diagnostic SI joint injection resulted in no pain improvement. Her CT scan is positive for L5-S1 endplate changes and facet arthropathy. CT myelography is not read yet. I requested radiology to expedite the reading. I also requested [employer] representatives to work on her machine to help her pain. She denies now that the device is helping her knee pain. [employer] spinal cord stimulator commercial sales representative interrogated her device. There are some discrepancies in her impedance and she can not go to MRI machine. Patient Instructions: I here by testify that I spent 42 minutes in conversation with this patient as well as conversation with other power professionals about this patient's care as well as planning her care and organizing this note. Coding Level of Care Code Est Pt Level 5 (70098) Diagnoses Spondylosis of lumbar region without myelopathy or radiculopathy M47.816 Disc degeneration, lumbar M51.36 Lumbar radiculopathy M54.16 Chronic right-sided low back pain with right-sided sciatica M54.41; G89.29 Back pain location: low back pain Chronicity: chronic Back pain laterality: right Sciatica presence: with sciatica Sciatica laterality: sciatica of right side Sacroiliitis M46.1 Chronic right SI joint pain M53.3; G89.29
[2024-10-26 09:45] VITALS: BP 138/68; PULSE 99; O2SAT 100
== END 2024-10-26 10:08 | disposition home or self-care (01) ==
PROVIDERS: PCP Student in an Organized Health Care Education/Training Program; Visit Provider Anesthesiology
DX: M47.816 Spondylosis without myelopathy or radiculopathy, lumbar region (principal); M51.369 Other intervertebral disc degeneration, lumbar region without mention of lumbar back pain or lower extremity pain; M54.16 Radiculopathy, lumbar region; M54.41 Lumbago with sciatica, right side; G89.29 Other chronic pain; M46.1 Sacroiliitis, not elsewhere classified; M53.3 Sacrococcygeal disorders, not elsewhere classified
CPT/HCPCS: 99215

== ENCOUNTER 2024-11-03 09:56 | Outpatient (AMB) | payer OTHER, SELFPAY ==
[2024-11-03 10:54] VITALS: BP 120/62; PULSE 96; O2SAT 96; BMI 25.4
--- NOTE | 2024-11-03 10:54 | A.OFFVIS_ITS ---
Vital Signs 11/03/24 10:54 Height 5 ft 5 in Weight 152 lb 8.958 oz BMI 25.4 BP 120/62 Blood Pressure Location Rt brachial Position Sitting Pulse 96 Pulse Source Pulse Oximeter Pulse Oximetry (%) 96 Oxygen Delivery Method Room Air Intake Visit Reasons: s/p colon Intake Note: ESTABLISHED PATIENT Sapna presents in office today for a scheduled s/p FUV. Meds and Allergies reviewed? Y No recent or relevant surgeries? [place] w/ BZ. Any significant concerns or new changes? Pt had poor prep. Pt states that they had a poor reaction to the prep and this is why she had difficulties with the process. Pharmacy verified? [facility] Pharmacy. Pharmaceutical Compounding Supervisor Required: Yes Pharmaceutical Compounding Supervisor Services: Pharmaceutical Compounding Supervisor Present Pharmaceutical Compounding Supervisor Name: Marcelina Lee9 Information Interpreted: non-clinical & clinical Accompanied by: Self / Same As Patient Allergies Penicillins [PENICILLINS] Allergy (Intermediate, Verified 11/03/24 10:54) HIVES HPI HPI s/p colon: Details: LAST VISIT: Constipation by delayed colonic transit Lower abdominal pain RLQ abdominal pain Mesenteric adenitis Screen for colon cancer Plan What to expect before during and after procedure discussed with patient. Stressed the importance of good bowel prep and clear liquid diet day before procedure. Patient denies any cardiac or respiratory symptoms. Patient denies any melena, hematochezia, unintentional weight loss or ribbon like stools. I w ill see patient after the procedure, sooner on as needed basis. Patient is agreeable to this plan and verbalizes understanding of instructions. She was given the opportunity to ask questions and all questions answered. ? Thank you for allowing me to participate in her care Medications New bisacodyl (Dulcolax (bisacodyl)) take 4 tabs at noon the day before your colonoscopy 20 mg (4 x 5 mg) PO ONCE 4 tabs 0RF 1 day Z12.11 polyethylene glycol 3350 (Miralax) As directed by gastroenterology department at [facility] 238 grams PO ONCE 238 grams 0RF Z12.11 COLONOSCOPY: Procedure: The patient was brought to the procedure room and placed in the left lateral decubitus position. IV medications were administered by the anesthesia provider in attendance. A digital rectal exam was performed which was normal. A distal attachment cap was affixed to the tip of the colonoscope which was then inserted through the anus and advanced through the colon to the cecum at 80 cm. Appendiceal orifice and ileocecal valve were identified. Mucosa was carefully examined under high definition white light as the instrument was slowly withdrawn in a retrograde panoramic fashion. Retroflexion was performed in rectum. The procedure was not difficult. There were no immediate obvious complications. The quality of the prep was BBPS: 1+2+1 = inadequate Withdrawal time 7 minutes. Limitations: Poor prep. Findings: Mucosa: Copious liquid and semi-solid fecal debris was present throughout the colon. This severely limited visualization specially in the sigmoid colon and right-sided colon. Protruding lesions: * Medium internal hemorrhoids without stigmata of recent bleeding. Excavated lesions: * Moderate diverticulosis of left sided colon. Impression: 1. Poor prep 2. Diverticulosis 3. Internal hemorrhoids Recommendations: - A repeat colonoscopy will be set up within 12 months due to poor prep today. TODAY'S VISIT: Patient is here today for follow-up and to discuss colonoscopy results. Unfortunately patient had suboptimal prep. Patient states that she was unable to finish her prep as she felt very nauseous. Patient had headache and felt like her blood sugar was low then. Patient is not on any insulin except for metformin. Due to suboptimal prep and not able to visualize sigmoid colon and right side of her colon patient will need to come back for colonoscopy in 12 months. Patient denies any melena, hematochezia, unintentional weight loss or ribbon like stools. Patient reports that she is moving bowels taking senna daily. Patient denies abdominal pain or discomfort. Takes PPI and her symptoms of acid reflux are suppressed. [facility] Medical History (Reviewed 11/03/24 @ 10:54 by Bernardo Warren [facility] Palpitations Non-cardiac chest pain Pelvic pain Leg pain Bladder pain Lower abdominal pain Gross hematuria Toe pain Right knee pain Effusion, right knee Dysuria Pelvic pain in female Hematuria Mass of spine Hematuria Type 2 diabetes mellitus with polyneuropathy DM2 (diabetes mellitus, type 2) Nail deformity Paronychia Failure of spinal cord stimulator Thymoma Pulmonary nodules Thyroid cancer Blood in urine Constipation by delayed colonic transit Tubular adenoma of colon Gastritis Hypertension Dyslipidemia Post-surgical hypothyroidism Primary thyroid cancer Vitamin D deficiency Surgical History History of thymectomy History of back surgery Hx of colonoscopy Hx of thyroidectomy Hx of hernia repair Hx of section Hx of hysterectomy History of esophagogastroduodenoscopy (EGD) Family History Father Stroke Heart attack Mother Diabetes mellitus Family/Other Family history of cancer Sister Stomach cancer Family/Other Thyroid cancer Social History Household Members: Spouse, Children and Other Are you a primary insurance healthcare consultant to a significant other at home: No Do you presently have visiting nurse or other home services: No Alcohol intake: unknown Patient Tobacco Use Status: Former Tobacco user Tobacco use type: Cigarette Second Hand Smoke Exposure: No Sexual orientation: Straight/Heterosexual Gender identity: Female Review of Systems Const Denies weight gain and Denies weight loss ENT Reports no additional complaints, Denies dysphagia and Denies odynophagia Card Reports no additional complaints Resp Reports no additional complaints GI Denies abdominal pain, Denies belching, Denies melena, Reports bloating, Denies change in bowel habits, Denies dysphagia, Denies excessive flatus, Denies dyspepsia, Denies heartburn, Denies diarrhea, Denies loose stools, Denies nausea, Denies odynophagia and Denies vomiting Reports no additional complaints Musc Reports no additional complaints Neuro Reports no additional complaints Psych Reports no additional complaints Endo Reports no additional complaints Physical Exam Vital Signs: Last Vital Signs Pulse 96 11/03/24 10:54 BP 120/62 11/03/24 10:54 Pulse Ox 96 11/03/24 10:54 Oxygen Delivery Method Room Air 11/03/24 10:54 BMI result Body Mass Index 25.4 Const General: healthy appearing, no acute distress and well developed Nutritional Appearance: well nourished Orientation/consciousness: patient oriented x3 Resp Effort & Inspection: normal respiratory effort, able to speak in complete sentences, no tracheal deviation and symmetric chest movement Auscultation: clear to auscultation bilaterally Cardio Rate: regular rate GI Inspection: Yes normal to inspection and No distended Palpation (GI): Soft to palpation, not firm, Tenderness to palpation present (GI) (RLQ) and No hepatosplenomegaly present Auscultation: Hyperactive bowel sounds present General: Yes no CVA tenderness Back/Spine/Pelvis Back: no CVA tenderness Skin General skin exam: elasticity normal, turgor normal and dry skin Neuro General: patient oriented x3 Psych Appearance: grossly normal Mental Status: mental status grossly normal Assessment & Plan Assessment & Plan (1) Constipation by delayed colonic transit: Code(s): K59.01 - Slow transit constipation Category: Medical (2) Lower abdominal pain: Code(s): R10.30 - Lower abdominal pain, unspecified Category: Medical (3) Status post colonoscopy: Code(s): Z98.890 - Other specified postprocedural states (4) RLQ abdominal pain: Code(s): R10.31 - Right lower quadrant pain (5) Mesenteric adenitis: Code(s): I88.0 - Nonspecific mesenteric lymphadenitis Plan Patient will return in 8 months to discuss going for colonoscopy. Patient might need to day of clears and Dulcolax for 1 week before procedure with split Mi raLax prep. Patient can continue taking Senokot for now. Increase fluid intake and activity to promote better bowel motility. Continue pantoprazole daily. Avoid dietary triggers and late night snacking. Staying upright for minimum 3 hours after meals discussed with patient. Patient will call our office if she will have any GI concerning symptoms. She is agreeable to current plan of care and verbalizes understanding of instructions. She was given the opportunity to ask questions and all questions answered. Thank you for allowing me to participate in her care Coding Level of Care Code Est Pt Level 3 ([id number]) Diagnoses Constipation by delayed colonic transit K59.01 Lower abdominal pain R10.30 Status post colonoscopy Z98.890 RLQ abdominal pain R10.31 Mesenteric adenitis I88.0 Time Spent (min) 25 Comment 15 minutes spent with patient and additional 10 minutes spent reviewing her records
== END 2024-11-03 11:29 | disposition home or self-care (01) ==
PROVIDERS: PCP Student in an Organized Health Care Education/Training Program; Visit Provider Nurse Practitioner Family
DX: K59.01 Slow transit constipation (principal); R10.30 Lower abdominal pain, unspecified; Z98.890 Other specified postprocedural states; R10.31 Right lower quadrant pain; I88.0 Nonspecific mesenteric lymphadenitis
CPT/HCPCS: 99213

== ENCOUNTER 2024-11-04 08:56 | Outpatient (AMB) | payer OTHER, SELFPAY ==
[2024-11-04 09:16] VITALS: BP 112/64; PULSE 93; BMI 25.6
--- NOTE | 2024-11-04 09:16 | MHC.OFFVIS ---
Vital Signs 11/04/24 09:16 Height 5 ft 5 in Weight 153 lb 14.122 oz BMI 25.6 BP 112/64 Blood Pressure Location Rt brachial Position Sitting Pulse 93 Pulse Source Pulse Oximeter Intake Visit Reasons: Thyroid cancer Intake Note: Patient present today for Thyroid cancer office visit. [facility] Required: Yes [facility] Language: Registered Nurse Fetal Services: [facility] Present [facility] Name: Sudhakar [id number] Information Interpreted: non-clinical & clinical Accompanied by: Self / Same As Patient Allergies Penicillins [PENICILLINS] Allergy (Intermediate, Verified 11/04/24 09:21) HIVES Medication List - Last Reconciled 11/04/24 by Ashley Smiley MD acetaminophen (Tylenol) 650 mg (2 x 325 mg) PO Q6H PRN albuterol sulfate 90 mcg/actuation (ProAir HFA) 2 puffs inhalation Q4-6H PRN blood sugar diagnostic (FreeStyle Lite Strips) Test blood glucose twice per day blood-glucose meter (FreeStyle Lite Meter kit) As directed flash glucose scanning reader (FreeStyle Emile 2 [place]) As directed fluticasone propionate 50 mcg/actuation sprays intranasal gabapentin 300 mg PO BEDTIME 30 days hydrocortisone 2.5% (Proctosol HC) 1 appl ND BID-QID PRN hydroxyzine pamoate 25 mg PO BEDTIME 30 days ibuprofen 600 mg PO Q8H PRN levothyroxine 112 mcg PO DAILY metformin ER 500 mg PO BID montelukast 10 mg PO DAILY naproxen 500 mg PO BID 30 days jlphyhgx-ekvahzjhb-QH 3.5-10,000-1 mg/mL-unit/mL-% drps otic (ears) pantoprazole 40 mg PO DAILY sennosides (Natural Senna Laxative) 17.2 mg (2 x 8.6 mg) PO QDAY sitagliptin phosphate (Januvia) 100 mg PO DAILY HPI Comments Details: 63-year-old female coming in today for follow up of papillary thyroid cancer status post total thyroidectomy in 2009 with central neck dissection, noted to have multifocal bilateral disease with largest focus measuring 2.7 cm, with capsular invasion and extrathyroidal extension, initial KAL high-risk of recurrence, AJCC stage I, (though there is M1 listed on her TNM pathology, this is unclear whether this is error because there was no mention of distant metastatic disease), status post 150 mCi of I 131 in 07/2010. 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 History of PTC in detail 2009: Diagnosed with PTC in [place]. Status post total thyroidectomy 04/25/2010 with central neck dissection, official surgical pathology reported 2.7 cm PTC in the right lobe with capsular invasion and extrathyroidal extension. Additional 2 foci of micropapillary thyroid carcinoma in the remaining right lobe measuring 0.3 and 0.4 cm, as well as foci in the isthmus measuring 0.5 cm. Additional 1.1 cm focus of PTC within the left lobe. The stage is this did as pT3 N1b M1, however no mention of distant metastatic disease in the chart otherwise so this is likely a mistake. She has to be N0, and given her age at the time of surgery, this is AJCC stage I. Given extrathyroidal extension, KAL initial high-risk of recurrence. 08/07/2010: Received 150 mCi of radioactive iodine treatment. 08/14/2010: Posttreatment whole-body scan revealed no iodine avid uptake. She then moved to [facility] in continued treatment there. 02/04/2012: TG 1.31, unfortunately no TSH available. She was on levothyroxine 200 mcg daily at that time. 01/31/2012: Whole-body scan following thyroid hormone withdrawal was negative for iodine avid uptake 05/04/2012: TG less than 0.2, TSH 0.08 Patient has subsequently moved back to the [facility]. 06/04/2014: Ultrasound head and neck completed revealed abnormal appearing lymph nodes. Stimulated TG at the time was 1, WBS revealed distant uptake within the neck, chest, abdomen. !! Unclear whether this is physiologic?? CT of the chest revealed a mediastinal mass measuring 2.5 X 2.5 X 7 cm. She was also noted to have a 10 mm right lower lobe pulmonary nodule. 01/28/2015: FNA biopsy of the abnormal appearing lymph node came back benign. She underwent evaluation with Dr. Edith Mireles at [facility] and there was concern of a 1.5 cm hypoechoic mass in the right thyroid fossa along the 1st tracheal ring which was biopsied and consistent with PTC. FNA biopsy of the mediastinal mass revealed a thymoma. Repeat whole-body scan around that time revealed no uptake within the lesion within the thyroid bed concerning for de- differentiated disease. 07/04/2015: Status post right paratracheal papillary thyroid carcinoma resection with Dr. Edith Mireles. Histology revealed a 1.5 cm PTC. 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 It was minimally invasive at the right, left posterior and anterior margins. Lymph nodes were negative for metastasis and there was no pleural invasion. She was referred for postoperative radiation therapy to decrease the risk of local recurrence. Unclear whether she got this?? 05/01/2015: MRI of the abdomen revealed no hepatic lesions corresponding to the activity to the whole-body scan 2018: Ultrasound of the head and neck revealed abnormal-appearing lymph nodes. 02/25/2018: FNA biopsy of a left level 4, 2.5 cm cervical lymph node, was inadequate. Left level 2, 1.9 cm lymph node revealed no evidence of metastatic disease. 12/30/2018: Repeat ultrasound and FNA biopsy of a left level 2, 2.6 cm and a left level 2, 2.3 cm cervical lymph node both with the only evidence of normal-appearing lymphocytes. Unfortunately no TG washout available. 02/01/2021: Thyrogen stimulated whole-body scan revealed only physiologic uptake. Labs TSH greater than 100, TG 0.8 with TG antibody negative. 01/27/2022: PET-CT with the identification of a 0.7 cm left level 2A lymph node with increased FDG uptake with SUV max of 2.9. There was an additional 0.5 cm left level 2B lymph node with increased FDG uptake and SUV max of 4. There was residual activity within the thyroidectomy bed. No abnormal uptake was noted in the chest, abdomen, pelvis. Mild FDG uptake in the posterior paraspinal tissue with SUV max of 3.4. This extended to the left lateral aspect of the spinal: It L5. There was a mild soft tissue prominence measuring 1.8 X 0.9 cm in the left paraspinal region. 01/24/2022: Ultrasound neck revealed an abnormal appearing lymph node in the left level 2 measuring 1.9 cm. 03/24/2022: TSH 0.02, TG 0.1, TG antibody at less than 1 04/09/2022: FNA biopsy of the left level 2 lymph node with cytology revealed no evidence of malignancy, only lymphocytes. TG washout was negative. Additional small suspicious appearing supraclavicular lymph node which was not biopsied by IR for unknown reason. 04/07/2022: CT of the lumbar spine revealed abnormal soft tissue within the left epidural space at the L5/S1 level. This was inseparable from the traversing segment of the S1 nerve root. MRI revealed a herniated disc with granulation tissue. 04/07/22: CT of the chest to evaluate the 1 cm pulmonary nodule that was identified in 201307/16/2022: TSH 0.01, TG 0.13, TG antibody less than 0.4, free T4 1.81 with TSH 0.01, TG 0.1 and TGAB <1. 07/28/2022: Evaluated by Dr. Kesha Hammond at [facility] , her own ultrasound from 07/16/2022 did not show any definitive suspicious lymph nodes in the cervical area. Specifically the prominent lymph node in the left level 2 had reassuring features including a fatty hilum. 07/22/2022: TSH 0.01, TG 0.1, TG antibody less than 1 09/25/22: CT chest LUNGS: 2 x 5 mm peripheral or subpleural right lower lobe nodule adjacent to the major fissure probably representing a subpleural lymph node. 4 mm noncalcified left lower lobe nodule . 6 mm calcified right lower lobe nodule 12/01/2022: Evaluated by pulmonology Dr. Joel Arias with plan for repeat CT scan in 1 year 02/2023: TSH less than 0.1, TG 0.1 (ICMA), TG antibody less than 1 08/2023: TG 0.1, TG antibody less than 1 09/14/23: CT chest Redemonstration of bilateral pulmonary nodules the largest measuring up to 6 mm along the medial aspect of the left major fissure along the anterior aspect of the right lower lobe, stable. 2. No new large or suspicious pulmonary nodules or masses are noted. Has no upcoming follow up with pulmonology since last CT scan about a year ago in August 2023 09/16/2023: Ultrasound neck showed morphologically benign-appearing lymph nodes in the right neck. Left neck level 2 lymph node measuring 1.9 X 0.5 X 1.3 cm with loss fatty hilum. 11/05/2023: Again seen at [facility], Dr. Hammond for follow up of neck imaging, repeat ultrasound done in office showed no mass in bilateral thyroid bed. No suspicious nodes seen, left level 2 node without a clear hilum is oval in shape and stable in size compared to study from 06/2022 per nodes. Nonspecific isoechoic area in the left level 5B that is either a node versus part of the adjacent. 08/18/24 Levothyroxine reduced to 112 mcg daily from 125 mcg daily after TSH low at 0.14 Interval history Labs 09/26/24 TSH 0.92, free t4 1.26, Tg <0.1, tg <1 10/07/24: US neck with normal appearing lymp nodes ,no suspicious lesion seen, I reviewed the images myself Currently on levothyroxine 112 mcg daily , taking it appropiately. She denies any palpitations, tremors, bowel movements are regular. Says she has gained some weight recently, denies any weight loss. Denies any shortness of breath, though sometimes have cough with respiratory irritation. She does report back pain that is bothersome to her. Physical exam General: sitting comfortably in no acute distress HEENT: normocephalic/atraumatic, , moist oral mucosa Neck: supple, symmetrical, palpable 0.5 cm right level 2A lymph node otherwise no masses palpated Cardiac: normal heart sounds Pulm: normal breath sounds B/L, no added breath sounds Abd: not distended, no tenderness Extremities: no edema, no signs of myxedema Neuro: AAO x3, Speech: normal, no facial droop, moving all 4 extremities Laboratory Tests 09/10/18 05/24/19 07/06/19 12:33 11:36 07:10 Free T4 1.70 1.67 TSH Thyroglobulin 0.1 H <0.1 0.5 H Thyroglobulin Antibody <1 <1 <1 07/08/19 08/30/19 11/30/19 07:30 11:24 12:00 Free T4 1.83 1.37 TSH Thyroglobulin 0.4 H <0.1 <0.1 Thyroglobulin Antibody <1 <1 <1 04/12/20 07/05/20 07/06/20 16:38 12:25 11:05 Free T4 1.63 1.27 TSH Thyroglobulin 0.1 H 0.1 H Thyroglobulin Antibody <1 <1 10/23/20 12/07/20 01/30/21 09:35 11:00 07:03 Free T4 1.59 1.38 TSH 0.05 L 0.18 L > 100.00 H Thyroglobulin 0.1 H <0.1 0.8 H Thyroglobulin Antibody <1 <1 <1 02/01/21 04/16/21 05/31/21 07:40 12:40 10:33 Free T4 1.28 1.31 TSH 14.33 H 2.19 1.46 Thyroglobulin 0.6 H 0.1 H 0.1 H Thyroglobulin Antibody <1 <1 <1 12/04/21 12/30/21 03/24/22 09:54 09:50 10:26 Free T4 1.11 1.49 1.83 TSH 9.61 H 0.98 0.02 L Thyroglobulin 0.2 L 0.2 L 0.1 L Thyroglobulin Antibody <1 <1 <1 08/11/22 02/26/23 05/06/23 09:47 09:12 06:01 Free T4 2.19 H 1.81 1.74 TSH 0.01 L < 0.01 L 0.02 L Thyroglobulin 0.1 L <0.1 Thyroglobulin Antibody <1 <1 09/08/23 11/20/23 11/20/23 08:51 08:48 08:49 Free T4 1.41 1.29 TSH < 0.01 L 0.07 L Thyroglobulin 0.1 H Thyroglobulin Antibody <1 02/01/24 07/04/24 08/18/24 09:37 07:16 11:08 Free T4 1.20 1.20 1.52 TSH 2.36 2.90 0.14 L Thyroglobulin Thyroglobulin Antibody Laboratory Tests 08/18/24 09/26/24 11:08 09:55 TSH 0.14 L 0.92 Free T4 1.52 1.26 Thyroglobulin <0.1 Thyroglobulin Antibody <1 Imaging US SOFT TISSUE OF THE NECK 10/07/24 CLINICAL INFORMATION: Personal history of malignant neoplasm of thyroid. COMPARISON: Ultrasound soft tissue head/neck thyroid 12/26/2019 12/22/2017. Correlated to CT neck 01/12/2020. TECHNIQUE: Linear transducer grayscale and color Doppler examination of the neck. FINDINGS: Submitted for interpretation on November 04, 2024. Absent thyroid gland. There are less than 1.6 cm fatty hilum nodules/lymph nodes at the surgical site. No gross fluid collections. US/US soft tiss head and/or neck IMPRESSION: Nonspecific prominent less than 1.6 cm lymph nodes. No gross mass or fluid collections. Electronically signed by: Andres Kendall MD 11/04/2024 09:00 AM [facility] CT LUMBAR SPINE WITHOUT CONTRAST 07/28/24 CLINICAL INFORMATION: Evaluate for disc herniation, patient has spinal cord stimulator COMPARISON: Lumbar spine radiograph 05/04/2024 TECHNIQUE: Noncontrast axial 1.5 and 2 mm sections through the lumbar spine were obtained. Coronal and sagittal reformats were obtained at the acquisition workstation. This CT examination was performed using dose optimization techniques as appropriate, variously including the following: *Automated exposure control *Adjustment of mA and/or kV according to patient size (this includes techniques or standardized protocols for targeted exams where dose is matched to indication/reason for exam; i.e. extremities or head) *Use of iterative reconstruction technique DLP; 386 mGy-cm FINDINGS: No acute fracture involving the lumbar spine. The lumbar vertebral bodies demonstrate normal height. Overall sagittal alignment appears maintained. There is moderate intervertebral disc space narrowing with intradiscal vacuum phenomena and endplate degenerative changes at L5-S1. Again noted generator device in the right gluteal subcutaneous soft tissues with intact stimulator lead terminating within the lumbar spinal canal at the level of L1. The paravertebral soft tissues appear unremarkable. Mild aortoiliac atherosclerosis. Few sigmoid colonic diverticula. Mild degenerative changes involving bilateral sacroiliac joints. T12-L1:No spinal canal or foraminal stenosis. L1-L2: No spinal canal or foraminal stenosis. L2- L3: No spinal canal or foraminal stenosis. L3-L4:No spinal canal or foraminal stenosis.Mild facet arthropathy. L4-L5: Minimal disc bulge. No spinal canal or foraminal stenosis. Mild facet arthropathy. L5-S1: Disc bulge with superimposed left paracentral disc protrusion and left subarticular stenosis. There is likely mass effect on the left S1 traversing nerve root, although not well evaluated on CT. No significant right-sided foraminal stenosis. Moderate to severe bilateral facet arthropathy.Mild right and [id number] left foraminal stenosis. CT/CT lumbar spine wo IV con IMPRESSION: At L5-S1, there is disc bulge with superimposed left paracentral disc protrusion and left subarticular stenosis.There is likely mass effect on the left S1 traversing nerve root, although not well evaluated on CT. Moderate to severe bilateral facet arthropathy.Mild right and [id number] left foraminal stenosis. Mild facet arthropathy at L3-4 and L4-L5.. Electronically signed by: Nicholas Seymour MD 08/05/2024 10:[address] SOFT TISSUE NECK WITH CONTRAST 03/07/24 CLINICAL INFORMATION: Dysphagia COMPARISON: None. TECHNIQUE: Following the administration of 60 mL of Omnipaque 350 intravenous contrast, helical imaging was performed in the axial plane with generation of coronal and sagittal reformatted images. This CT examination was performed using dose optimization techniques as appropriate, variously including the following: *Automated exposure control. *Adjustment of mA and/or kV according to patient size (this includes techniques or standardized protocols for targeted exams where dose is matched to indication/reason for exam; i.e. extremities or head). *Use of iterative reconstruction technique. DLP: 260 mGy-cm. FINDINGS: The fat planes of the skull base and soft tissues of the nasopharynx are unremarkable. The paranasal sinuses and mastoid air cells are well aerated. The temporomandibular joints are normal. Torus palatini and small left torus maxillari. The oral cavity is unremarkable. Punctate calcified bilateral palatine tonsilloliths. Asymmetric soft tissue along the right base of tongue projecting into the upper vallecula and contacting the free edge of the epiglottis may reflect asymmetric tonsillar tissue though can be correlated with direct inspection. Asymmetric prominence of the right laryngeal ventricle can be correlated for right vocal cord paresis/paralysis. The aryepiglottic folds are opposed posteriorly with effacement of the left pyriform sinus. The subglottic airway is normal.. The left submandibular gland is small relative to the right. The parotid glands are normal. Thyroidectomy. No pathologic size criteria or morphologically suspicious cervical chain lymph nodes. The partially visualized lung apices are clear. Mild to moderate calcific plaque of the aortic arch and great vessel origins. Eccentric fibrofatty plaque mildly narrows the proximal brachiocephalic trunk. Otherwise grossly normal opacification of the major neck vessels. Minimal cervical spondylosis. Asymmetric ex vacuo dilatation of the right temporal horn with otherwise unremarkable imaged intracranial contents. Mild patchy paranasal sinus mucosal disease with some aerated contents in the right maxillary sinus. Small right mastoid effusion. Lens replacements. CT/CT soft tissue neck w IV con IMPRESSION: 1. Morphologic findings discussed above that can be correlated for right vocal cord paresis/paralysis. No aerodigestive tract mass. 2. No pathologic size criteria or morphologically suspicious cervical chain lymph nodes. US SOFT TISSUE NECK 09/16/23 CLINICAL INFORMATION: Lymph node mapping COMPARISON: None available. TECHNIQUE: Ultrasound of the neck soft tissues is performed with high- frequency murrell-scale imaging and color Doppler. FINDINGS: Right neck level 1B lymph node measuring up to 4 mm in short axis morphologically benign-appearing. Right neck level 2 lymph node measuring 0.5 cm in short axis, morphologically benign-appearing. Right neck level 5 8 lymph node measuring 5 mm in short axis, morphologically benign-appearing. Left neck level 1B lymph node measuring up to 7 mm in short axis, morphologically benign-appearing. Left neck level 2 lymph node measuring 1.9 x 0.5 x 1.3 cm with loss of fatty hilum. US/US soft tiss head and/or neck IMPRESSION: 1. Morphologically benign-appearing lymph nodes in the right neck. 2. Left neck level 2 lymph node measuring 1.9 x 0.5 x 1.3 cm with loss of fatty hilum. CT CHEST WITHOUT CONTRAST 09/14/23 CLINICAL INFORMATION: Abnormal findings of lung field COMPARISON: CT abdomen from 02/28/2023, CT chest from 11/25/2021 TECHNIQUE: Multidetector volumetric CT imaging of the chest was done. Axial MIP volume rendering provided. Sagittal and coronal reformatted images were obtained. This CT examination was performed using dose optimization techniques as appropriate, variously including the following: *Automated exposure control *Adjustment of mA and/or kV according to patient size (this includes techniques or standardized protocols for targeted exams where dose is matched to indication/reason for exam; i.e. extremities or head) *Use of iterative reconstruction technique DLP: 126 mGy-cm FINDINGS: LUNGS/PLEURA: Stable 2 mm pleural-based nodular focus along the anterior aspect of the right upper lobe (series 5, image 222). 6 mm nodular focus along the medial aspect of the left major fissure along the anterior aspect of the right lower lobe (series 5, image 295), stable. Calcified granuloma right lower lobe (series 5, image 372). 4 mm nodule in the lateral aspect of the left lower lobe (series 5, image 338), stable. No new large or suspicious pulmonary nodules or masses are noted. Central airways are patent. No pneumothorax. No large pleural effusion. Bibasilar atelectasis. MEDIASTINUM: Heart is not enlarged. No pericardial effusion. No coronary artery calcifications are noted. Aorta is nonaneurysmal and demonstrates a sclerotic calcifications. Main pulmonary artery is not enlarged. A few mildly prominent though nonenlarged peritracheal precarinal and periaortic lymph nodes are noted. AXILLA: No lymphadenopathy. UPPER ABDOMEN: Small hiatal hernia. OSSEOUS STRUCTURES: Multilevel degenerative changes of the thoracolumbar spine. Partial visualization of left or spinal stimulator along the upper lumbar spine CT/CT chest wo IV con IMPRESSION: 1. Redemonstration of bilateral pulmonary nodules the largest measuring up to 6 mm along the medial aspect of the left major fissure along the anterior aspect of the right lower lobe, stable. 2. No new large or suspicious pulmonary nodules or masses are noted. 3. Small hiatal hernia. CT CHEST WITH CONTRAST 09/25/22 CLINICAL INFORMATION: History of thyroid cancer. COMPARISON: Previous chest x-rays, most recent 12/25/2021. TECHNIQUE: Multidetector volumetric CT imaging of the chest was obtained after the administration of 65 mL of Omnipaque 350 intravenous contrast without immediate adverse reactions. Axial MIP volume rendering provided. Sagittal and coronal reformatted images were obtained. This CT examination was performed using dose optimization techniques as appropriate, variously including the following: *Automated exposure control *Adjustment of mA and/or kV according to patient size (this includes techniques or standardized protocols for targeted exams where dose is matched to indication/reason for exam; i.e. extremities or head) *Use of iterative reconstruction technique DLP: 97 mGy-cm FINDINGS: LUNGS: 2 x 5 mm peripheral or subpleural right lower lobe nodule adjacent to the major fissure (axial image 95, series 5) probably representing a subpleural lymph node. 4 mm noncalcified left lower lobe nodule (axial image 112, series 5). 6 mm calcified right lower lobe nodule (axial image 119, series 5). MEDIASTINUM: There are surgical clips in the anterior superior mediastinum. The mediastinum is otherwise normal. Small mediastinal and bilateral hilar lymph nodes including partially calcified right hilar lymph node. No enlarged lymph nodes. Normal heart size. No pericardial effusion. Normal caliber thoracic aorta. No coronary artery calcification. PLEURA: There is no pleural effusion. No pleural mass or thickening. AXILLA: No lymphadenopathy. UPPER ABDOMEN: There may be fatty infiltration of the liver. OSSEOUS STRUCTURES: Unremarkable. CT/CT chest w IV con IMPRESSION: Small, calcified and noncalcified pulmonary nodules. According to Fleischner guidelines, chest CT follow up as per protocol. Fleischner guidelines were followed. MR LUMBAR SPINE WITHOUT AND WITH CONTRAST 05/01/22 CLINICAL INFORMATION: 61-year-old with self-reported low back pain radiating to the right leg with left foot numbness. COMPARISON: 02/05/2022 CT lumbar spine, 11/13/2021 MRI. TECHNIQUE: MRI of the lumbar spine was obtained using routine sequences with and without contrast. Intravenous contrast: Gadavist 7 mL FINDINGS: Coronal Alignment: Normal Sagittal Alignment: Normal Lumbosacral Junction: Normal. Five ikq-vfx-wtefiew lumbar-type vertebral bodies. Vertebral Bodies: Vertebral body heights are well maintained. Disc Spaces and Endplates: Moderate disc volume loss at L5-S1 is noted, with central Schmorl's nodes, with disc desiccation similar to previous MRI. Remaining lumbar intervertebral discs demonstrate normal height, with minor multilevel disc desiccation without significant spondylosis. Spinal Canal: No abnormal developmental findings. Bone Marrow: Minor type I degenerative marrow signal changes seen along the endplates at L5-S1 with associated endplate enhancement consistent with this. Otherwise bone marrow signal intensity appears within normal limits. Conus Medullaris: Terminates at L1-L2. Morphology and signal is normal. No abnormal enhancement. Intradural Nerve Roots: Within normal limits. No abnormal intradural enhancement. L5-S1: Note is made of a central to left subarticular recurrent disc herniation with marginal enhancing soft tissue which may reflect granulation tissue, measuring 6 mm in AP dimension with maximum transverse diameter of 8 mm, with mass effect on the left ventral thecal sac and traversing left S1 nerve root in the subarticular zone. Left hemilaminectomy changes are also noted with enhancing soft tissue in the left side of the canal adjacent to the traversing left S1 nerve root and left side of the thecal sac consistent with postoperative changes. Minor right-sided and [id number] left-sided facet arthrosis is noted. No significant neural foraminal stenosis and no significant central spinal canal stenosis. Note that the above-described disc herniation contacts the right S1 nerve root sleeve as well without nerve root compression or displacement. L4-L5: Small central to left central disc protrusion as noted on previous study with minimal indentation of the ventral thecal sac with associated enhancing annular fissuring at this level. Mild facet arthrosis bilaterally without significant canal or neuroforaminal stenosis. L3-L4: Normal disc contour. No facet arthrosis, canal or neuroforaminal stenosis. L2-L3: Normal disc contour. No facet arthrosis, canal or neuroforaminal stenosis. L1-L2: Normal disc contour. No facet arthrosis, canal or neuroforaminal stenosis. Paraspinal/Retroperitoneal: The paravertebral soft tissues appear grossly unremarkable. MR/MR lumbar spine wo/w con IMPRESSION: 1. Degenerative and postoperative changes at L5-S1 as described above with a left central to left subarticular recurrent disc herniation impinging on the traversing left S1 nerve root and slightly contacting the traversing right S1 nerve root sleeve with mild encroachment on the left ventral dural sac as well. 2. Stable small central to left paramedian disc protrusion at L4-L5 with enhancing annular fissuring. CT LUMBAR SPINE WITHOUT CONTRAST 04/07/22 CLINICAL INFORMATION: Lesion near L5. COMPARISON: Abdominal CT 02/02/2022. Lumbar spine MRI 11/13/2021. TECHNIQUE: Multidetector CT acquisition of the lumbar spine is obtained without contrast. Multiplanar reformats are acquired and utilized for image interpretation. This CT examination was performed using dose optimization techniques as appropriate, variously including the following: *Automated exposure control *Adjustment of mA and/or kV according to patient size (this includes techniques or standardized protocols for targeted exams where dose is matched to indication/reason for exam; i.e. extremities or head) *Use of iterative reconstruction technique FINDINGS: There are 5 nonrib-bearing lumbar-type vertebral bodies. Lumbar alignment is normal. Chronic inferior endplate Schmorl's node at L5 again noted. Mild chronic vertebral body height loss at L5 is stable. The remaining lumbar vertebral body heights are maintained. There is mild disc volume loss and there is vacuum phenomenon at L5-S1. The remaining disc volumes are preserved. There are no acute fractures and there are no acute subluxations. No suspicious intraosseous lesions are identified. There is aortoiliac atherosclerotic calcification. The L1-L2, L2-L3, and L3-L4 disc contours remain within normal limits. No central canal stenosis and no foraminal stenosis at these levels. L4-L5: There is likely a stable shallow left paracentral disc protrusion resulting in posterior deflection of the traversing left L5 nerve root within the left subarticular zone. No significant central canal stenosis and no foraminal stenosis. L5-S1: Postoperative changes following left hemilaminectomy. There is abnormal soft tissue within the left epidural space inseparable from the traversing left S1 nerve root that could reflect recurrent/residual disc herniation and/or scar tissue that would be better assessed with a lumbar spine MRI with and without IV contrast. CT/CT lumbar spine wo con IMPRESSION: - At L5-S1, there are postoperative changes following left hemilaminectomy. There is abnormal soft tissue within the left epidural space at L5-S1 inseparable from the traversing left S1 nerve root that could reflect recurrent/residual disc herniation and/or scar tissue that would be better assessed with a lumbar spine MRI with and without IV contrast. - At L4-L5, there is likely a stable shallow left paracentral disc protrusion resulting in posterior deflection of the traversing left L5 nerve root within the left subarticular zone. US SOFT TISSUE HEAD/NECK 01/20/2022 CLINICAL INFORMATION: Malignant neoplasm of thyroid gland. COMPARISON: Ultrasound soft tissue head and neck 11/08/2020. TECHNIQUE: Linear transducer grayscale and color Doppler examination of the neck lymph nodes. FINDINGS: On the right at level 1B the previously identified 0.6 x 0.4 x 0.5 cm lymph node is not seen on the current study. On the right at level 1B there is a 1.5 x 0.4 x 1.1 cm lymph node with a fatty hilum. The margins appear smooth and hypoechoic. No calcification is seen. Previously, this measured 1.7 x 0.4 x 1.2 cm. On the right at level 3 there is a 0.9 x 0.3 x 0.4 cm lymph node with a fatty hilum. No calcification is seen. This was not apparent previously. In the right supraclavicular region there is a 0.7 x 0.5 x 0.5 cm lymph node with a smooth fatty hilum. However, there is a hypoechoic area with in the fatty hilum which appears abnormal. The hypoechoic periphery of the lymph node appears small in diameter. This lymph node appears suspicious. This was not apparent previously. On the left at level 1B there is a 2.2 x 0.7 x 0.6 cm lymph node. This has a central fatty hilum. The hypoechoic periphery appears smooth without calcification. This was seen previously and appears similar. On the left at level 2 there is a 1.9 x 0.5 x 0.6 cm lymph node which appears abnormal. There is absence of the central fatty hilum. The lymph nodes predominantly hypoechoic. No calcification is seen. On the left at level 2 the previously identified 0.7 x 0.6 x 0.4 cm lymph node is not identified. US/US soft tiss head and/or neck IMPRESSION: 1. There is a suspicious 0.7 cm lymph node in the right supraclavicular region. 2. There is a suspicious 1.9 cm lymph node in level 2 on the left without a central fatty hilum. 3. Ultrasound-guided biopsy is recommended. CT ABDOMEN AND PELVIS WITH CONTRAST 11/20/21 CLINICAL INFORMATION: Abdominal pain. COMPARISON: Ultrasound of 09/13/[address] scan of 03/24/2021. TECHNIQUE: Multidetector volumetric images were obtained from the superior aspect of the liver through the pubic symphysis following administration 85 mL of Omnipaque 350 intravenous contrast. Sagittal and coronal reformatted images were obtained on the technologist's workstation. Oral Contrast: Yes. This CT examination was performed using dose optimization techniques as appropriate, variously including the following: *Automated exposure control. *Adjustment of mA and/or kV according to patient size (this includes techniques or standardized protocols for targeted exams where dose is matched to indication/reason for exam; i.e. extremities or head). *Use of iterative reconstruction technique. DLP: 335 mGy-cm FINDINGS: LUNG BASES: Calcified granuloma is seen within the right lower lobe. Heart normal size. No pericardial effusion. No pleural effusion. LIVER, GALLBLADDER, AND BILIARY TREE: The liver is of normal shape and size. There is a question of some fatty infiltration with some diminished density. No focal hepatic lesion or biliary ductal dilatation is present. The common bile duct is prominent at 8 mm in diameter in the region of the pancreatic head. No calculi or pancreatic head mass appreciated. The gallbladder is unremarkable with no evidence of radiopaque gallstones, gallbladder wall thickening, or obvious pericholecystic inflammatory changes. PANCREAS: Unremarkable. SPLEEN: Unremarkable. ADRENAL GLANDS: Unremarkable. KIDNEYS AND URETERS: The kidneys are normal in size, shape, and attenuation. No hydronephrosis, hydroureter, or calculi seen. No perinephric stranding. There are a few bilateral subcentimeter low-density lesions seen within the kidneys likely representing cysts or angiomyolipomas. There is a duplicated right upper collecting system present. It appears that the ureters may fuse in the mid pelvis but difficult to tell for sure. BLADDER: Unremarkable. GASTROINTESTINAL TRACT: No dilated loops of large or small bowel are evident. No free air or free fluid. Mild sigmoid diverticulosis is present without evidence of acute diverticulitis. No pericolonic inflammatory change. The appendix is visualized and appears unremarkable. ABDOMINAL WALL: No significant hernia is appreciated. Status post previous infraumbilical midline abdominal surgery. LYMPH NODES: No lymphadenopathy appreciated. VASCULAR: Unremarkable. Visceral vessels patent. No abdominal aortic aneurysm. Minimal bilateral iliac artery calcified plaque present. Portal vein is patent. PELVIC VISCERA: Unremarkable. OSSEOUS STRUCTURES: No acute destructive bony lesions identified. There is degenerative disc disease seen at the L5-S1 level. CT/CT abdomen pelvis w con IMPRESSION: 1. Old granulomatous disease. 2. Probable some degree of fatty infiltration of the liver. 3. Prominence of the common bile duct to 8 mm in diameter in the region of the pancreatic head without pancreatic head mass or calculus identified. 4. Duplicated right renal upper collecting system with some bilateral subcentimeter low-density lesions likely representing either cysts or angiomyolipomas. 5. No evidence of obstructive uropathy or bowel obstruction. XR LUMBOSACRAL SPINE 10/25/21 CLINICAL INFORMATION: Left hip pain, lumbago. COMPARISON: 07/25/2021 TECHNIQUE: Three views of the lumbosacral spine. FINDINGS: There are 5 [id number] lumbar vertebra. The bony texture and alignment is satisfactory. Pedicles are intact. There is mild narrowing of the L5-S1 disc space. There is facet arthropathy seen bilaterally at L5-S1. No acute fracture, spondylolisthesis, or spondylolysis identified. XR/XR lumbar spine 2-3V IMPRESSION: No acute fracture, spondylolisthesis, or spondylolysis. Bilateral facet arthropathy L5-S1 with mild disc space narrowing at L5-S1. LUMBAR SPINE, RIGHT ELBOW 07/25/21 CLINICAL INFORMATION: Fall with back and elbow pain COMPARISON: CT abdomen pelvis 01/15/2020 TECHNIQUE: 3 views right elbow, 3 views lumbar spine FINDINGS: Elbow: No bone, joint or soft tissue abnormality is seen. Lumbar spine: Disc spaces and vertebral heights are well preserved. No bony destructive lesions seen. No acute fractures detected. XR/XR lumbar spine 2-3V IMPRESSION: Negative radiographs of the right elbow and lumbar spine CT ABDOMEN AND PELVIS WITHOUT CONTRAST 03/24/21 CLINICAL INFORMATION: Flank pain. Question renal stones. COMPARISON: CT of the abdomen and pelvis without contrast dated January 14, 2021. TECHNIQUE: Multidetector volumetric imaging was performed from the superior aspect of the liver through the pubic symphysis. Sagittal and coronal reformatted images were obtained on the technologist's workstation. This CT examination was performed using dose optimization techniques as appropriate, variously including the following: *Automated exposure control *Adjustment of mA and/or kV according to patient size (this includes techniques or standardized protocols for targeted exams where dose is matched to indication/reason for exam; i.e. extremities or head) *Use of iterative reconstruction technique DLP: 360 mGy-cm FINDINGS: LINES AND TUBES: None. LOWER THORAX: Lung bases are clear. Small right basilar calcified granuloma (3:6). Heart is normal in size. No pericardial effusion or thickening. HEPATOBILIARY: The liver is normal in size, contour, and attenuation. No focal hepatic lesions. The gallbladder is present and otherwise unremarkable. No biliary dilatation. SPLEEN: Normal. PANCREAS: Normal. ADRENALS: Normal. KIDNEYS/URETERS: Duplicated right collecting collecting system is noted with two separate right ureters which are best appreciated at (3:40). The ureters are normal throughout their course. No ureteral calculi. No right renal calculi. Normal left kidney. Normal left ureter. BLADDER: Urinary bladder is normal in appearance. No urinary bladder calculi appreciated. PELVIC ORGANS: Vaginal cuff is noted. Uterus is not visualized. No adnexal mass. GI TRACT: No dilated or thick walled loops of bowel. Few sigmoid colon diverticula. The appendix is normal (3:54). PERITONEUM/RETROPERITONEUM AND MESENTERY: No intraperitoneal free air or fluid. LYMPH NODES: No pathologically enlarged lymph nodes. VESSELS: Normal in caliber. Mild aortoiliac atherosclerotic calcification. BONES AND SOFT TISSUES: No aggressive osseous lesions. CT/CT abdomen pelvis wo con IMPRESSION: 1. Duplicated right renal collecting system. No renal, ureteral, or urinary bladder calculi. 2. Few sigmoid colon diverticula. No evidence of diverticulitis. Ct abdomen/pelvis 01/14/21 CT ABDOMEN AND PELVIS WITHOUT CONTRAST CLINICAL INFORMATION: Right flank pain. Dysuria. Evaluate for pyelonephritis. COMPARISON: Previous CT of the abdomen and pelvis June 2020 TECHNIQUE: Multidetector volumetric imaging was performed from the superior aspect of the liver through the pubic symphysis. Sagittal and coronal reformatted images were obtained on the technologist's workstation. This CT examination was performed using dose optimization techniques as appropriate, variously including the following: *Automated exposure control *Adjustment of mA and/or kV according to patient size (this includes techniques or standardized protocols for targeted exams where dose is matched to indication/reason for exam; i.e. extremities or head) *Use of iterative reconstruction technique DLP: 455 mGy-cm FINDINGS: LUNG BASES: The visualized lung bases are unremarkable. LIVER, GALLBLADDER, AND BILIARY TREE: The liver is normal in size, shape, and attenuation. No focal hepatic lesion or biliary ductal dilatation is present. The gallbladder is unremarkable with no evidence of radiopaque gallstones, gallbladder wall thickening, or obvious pericholecystic inflammatory changes. PANCREAS: Unremarkable. SPLEEN: Unremarkable. ADRENAL GLANDS: Unremarkable. KIDNEYS AND URETERS: There is a duplicated right renal collecting system. The kidneys are otherwise normal. No stone or hydronephrosis is seen. No ureteral dilatation or ureteral stone is seen. Pyelonephritis is difficult to evaluate without IV contrast. No cortical thickening, focal lesion or perinephric stranding or fluid is seen. BLADDER: Unremarkable. GASTROINTESTINAL TRACT: There is mild diverticulosis of the colon. The small and large bowel are otherwise unremarkable. The appendix is unremarkable. ABDOMINAL WALL: As evidence of previous low ventral hernia repair with mesh. LYMPH NODES: There is shotty small bowel mesentery lymphadenopathy in the right lower quadrant. No enlarged lymph nodes are seen. There is no ascites. VASCULAR: Unremarkable. PELVIC VISCERA: The whole the uterus appears to have been removed. No pelvic mass is seen. OSSEOUS STRUCTURES: Unremarkable. CT/CT abdomen pelvis wo con IMPRESSION: Duplicated right renal collecting system. Mild diverticulosis of the colon. ULTRASOUND SOFT TISSUE HEAD AND NECK 11/08/20 CLINICAL INFORMATION: Malignant neoplasm of thyroid gland. Follow up lymph nodes. COMPARISON: Ultrasound neck 07/17/2020. TECHNIQUE: Ultrasound imaging of neck lymph nodes was performed. FINDINGS: There are several bilateral lymph nodes seen. Right Neck: 1. Level Ib lymph node measuring 1.7 x 0.4 x 1.2 cm. It has a slit-like hilum and appears abnormal. Previously it measured 1.7 x 0.5 x 1.9 cm. 2. The previously seen 0.6 x 0.4 x 0.5 cm level 1B lymph node is not visualized at this time. Left Neck: 1. Level Ib lymph node measures 2.6 x 0.6 x 1.0 cm. It is abnormal and has a slit-like hilum. Previously it measured 2.6 x 0.6 x 1.2 cm. 2. Level 2 lymph node measures 1.9 x 0.5 x 1.4 cm. It is abnormal and has an absent hilum and has cystic features. Previously it measured 2.1 x 0.4 x 1.4 cm. 3. The previously seen 0.7 x 0.6 x 1.0 cm level 2 lymph node is not visualized at this time. US/US soft tiss head and/or neck IMPRESSION: At least 1 solitary abnormal lymph node in the right neck and 2 abnormal-appearing lymph nodes in the left neck essentially unchanged in size. [facility] Medical History Palpitations Non-cardiac chest pain Pelvic pain Leg pain Bladder pain Lower abdominal pain Gross hematuria Toe pain Right knee pain Effusion, right knee Dysuria Pelvic pain in female Hematuria Mass of spine Hematuria Type 2 diabetes mellitus with polyneuropathy DM2 (diabetes mellitus, type 2) Nail deformity Paronychia Failure of spinal cord stimulator Thymoma Pulmonary nodules Thyroid cancer Blood in urine Constipation by delayed colonic transit Tubular adenoma of colon Gastritis Hypertension Dyslipidemia Post-surgical hypothyroidism Primary thyroid cancer Vitamin D deficiency Surgical History History of thymectomy History of back surgery Hx of colonoscopy Hx of thyroidectomy Hx of hernia repair Hx of section Hx of hysterectomy History of esophagogastroduodenoscopy (EGD) Family History Father Stroke Heart attack Mother Diabetes mellitus Family/Other Family history of cancer Sister Stomach cancer Family/Other Thyroid cancer Social History Household Members: Spouse, Children and Other Are you a primary hospice spiritual care coordinator to a significant other at home: No Do you presently have visiting nurse or other home services: No Alcohol intake: unknown Patient Tobacco Use Status: Former Tobacco user Tobacco use type: Cigarette Second Hand Smoke Exposure: No Sexual orientation: Straight/Heterosexual Gender identity: Female Physical Exam Vital Signs: Last Vital Signs Pulse 93 11/04/24 09:16 BP 112/64 11/04/24 09:16 BMI result Body Mass Index 25.6 Assessment & Plan Assessment & Plan (1) History of thyroid cancer: Code(s): Z85.850 - Personal history of malignant neoplasm of thyroid Category: Medical Plan: 63-year-old female coming in today for follow up of papillary thyroid cancer status post total thyroidectomy in 2009 with central neck dissection, noted to have multifocal bilateral disease with largest focus measuring 2.7 cm, with capsular invasion and extrathyroidal extension, initial KAL high-risk of recurrence, AJCC stage I, (though there is M1 listed on her TNM pathology, this is unclear whether this is error because there was no mention of distant metastatic disease), status post 150 mCi of I 131 in 07/2010. In 07/2015, status post right paratracheal lesion resection (1.5 cm consistent with PTC). She subsequently has had multiple neck ultrasounds in the interim which pointed abnormal-appearing lymph nodes, however FNA of these done in 2017, 2018, 2021 have been consistently unremarkable with no evidence of metastatic disease. Her non stimulated TG levels remain undetectable. Last whole-body scan from January 2021 did not show any evidence of abnormal iodine uptake, stimulated TG 0.8 again very reassuring. However some things in her history are confusing such as in 2013 she apparently had a whole-body scan which demonstrated distant uptake in the neck, chest and abdomen. But scan in 2011 previously was negative. This is unclear if they were referring to physiologic uptake or suspected metastatic disease in 2013. However this abnormal uptake is not correlated with any anatomical imaging given MRI abdomen subsequently in 2014 was unremarkable ( I dont have the report of this available) , and she has had CT chest most recently in August 2023 which showed stable size of her lung nodules largest measuring 6 mm. 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 . Given that her right paratracheal lesion that was resected in 2014 was consistent with metastatic PTC that was not picked up in her whole-body scan, there is a concern whether she could have had de diffrenetiated disease, in which case whole-body scans and thyroglobulin levels would not alert test to recurrence. However she is almost 10 years out of that surgery and doing well, she does not have any significant compressive symptoms, her respiratory status is normal with no shortness of breath. Her last ultrasound of the neck completed 2023 does not show any suspicious appearing lymph nodes. Her most recent blood work from September 2024 showed TG 09/26/24 TSH 0.92, free t4 1.26, Tg <0.1, tg <1 . Tumor markers are reassuring. Despite the unclear parts of her HPI, I would say currently she is KAL excellent response to therapy based on her thyroglobulin levels and no definitive disease in the neck . Her TSH goal would be between 0.5-2. Plan: -continue levothyroxine 112 mcg daily -follow up in 1 year with a repeat TSH, free T4, TG markers -determine follow up with pulmonology (2) Post-surgical hypothyroidism: Code(s): E89.0 - Postprocedural hypothyroidism Category: Medical Plan: Currently KAL excellent response to therapy. Her TSH goal would be between 0.5-2. Plan: -continue levothyroxine 112 mcg daily -ordered TSH, free T4 before follow up in 1 year Plan I spent 45 minutes in reviewing the record, seeing the patient and documenting in the medical record. Orders: Orders Thyroglobulin Antibodies 1 Year C73 - Malignant neoplasm of thyroid gland, E89.0 - Postprocedural hypothyroidism Free T4 (Free Thyroxine) 1 Year C73 - Malignant neoplasm of thyroid gland, E89.0 - Postprocedural hypothyroidism Thyroid Stimulating Hormone 1 Year C73 - Malignant neoplasm of thyroid gland, E89.0 - Postprocedural hypothyroidism Thyroglobulin Tumor Marker 1 Year C73 - Malignant neoplasm of thyroid gland, E89.0 - Postprocedural hypothyroidism Thyroglobulin 1 Year C73 - Malignant neoplasm of thyroid gland, E89.0 - Postprocedural hypothyroidism Medications: Refilled levothyroxine 112 mcg PO DAILY 30 tabs 12RF Patient Instructions: Continue levothyroxine 112 mcg daily Do blood work 1 week prior to your follow up in 1 year Continuar con levotiroxina 112 mcg al d?a. Realice an?lisis de jerrod 1 semana antes de chambers seguimiento en 1 a?o. Coding Level of Care Code Est Pt Level 4 (06316) Complex EM visit Add On G2211 Diagnoses History of thyroid cancer Z85.850 Post-surgical hypothyroidism E89.0 Time Spent (min) 30
== END 2024-11-04 09:58 | disposition home or self-care (01) ==
PROVIDERS: PCP Student in an Organized Health Care Education/Training Program; Visit Provider Student in an Organized Health Care Education/Training Program
DX: Z85.850 Personal history of malignant neoplasm of thyroid (principal); E89.0 Postprocedural hypothyroidism
CPT/HCPCS: 99214

== ENCOUNTER 2024-11-20 11:26 | Emergency (ER) | payer OTHER, SELFPAY ==
--- NOTE | ~2024-11-20 | XR_ITS ---
CLINICAL HISTORY: Chest pain 1 view chest x-ray Comparison: CR/SR - XR CHEST 2V - 07/29/24 13:35 EDT Findings: No consolidation, pleural effusion or pneumothorax. Heart size is normal. No acute fracture. IMPRESSION: 1. No acute findings. This document has been electronically signed by: Cindy Austin DO on 11/20/2024 14:07:22
--- NOTE | 2024-11-20 11:28 | ECG_ITS ---
Test Reason : CHEST PAIN Blood Pressure : / mmHG Vent. Rate : 105 BPM Atrial Rate : 105 BPM P-R Int : 154 ms QRS Dur : 074 ms QT Int : 348 ms P-R-T Axes : 059 007 051 degrees QTc Int : 459 ms Sinus tachycardia Possible Left atrial enlargement Inferior infarct (cited on or before 06-MAY-2023) Abnormal ECG When compared with ECG of 29-JUL-2024 12:05, No significant change was found Referred By: Generic ED Physician Electronically Signed By:PABLO BURGOS
[2024-11-20 11:39] VITALS: BP 140/82; PULSE 108; RESP 18; TEMP 36.9; O2SAT 100; BMI 25.8
--- NOTE | 2024-11-20 11:43 | ED_ITS ---
HPI - General Adult General Chief complaint: Chest Pain Stated complaint: chest pain Time Seen by Provider: 11/20/24 12:43 Source: patient and rn navigator Mode of arrival: ambulatory Limitations: no limitations History of Present Illness ED Provider: DR. Ritter HPI narrative: 63-year-old female came in for evaluation of left-sided chest pain since this a.m. patient feel it like stab pain to the mid chest radiates to the left under breast. Pain has been constant since this morning, no trauma to the chest, no association of shortness of breath, no fever, no chills. Related Data Home Medications ?Medication ?Instructions ?Recorded ?Confirmed albuterol sulfate 90 mcg/actuation 2 puff inhalation Q4-6H PRN 09/05/22 11/04/24 aerosol inhaler (ProAir HFA) Wheezing metformin 500 mg tablet,extended 500 mg PO BID 11/19/23 11/04/24 release 24 hr fluticasone propionate 50 spray intranasal 03/01/24 11/04/24 mcg/actuation nasal spray,suspension montelukast 10 mg tablet 10 mg PO DAILY 03/01/24 11/04/24 sitagliptin phosphate 100 mg 100 mg PO DAILY 10/19/24 11/04/24 tablet (Januvia) [id number] 3.5 drp otic (ears) 11/03/24 11/04/24 mg-10,000 unit/mL-1 % ear drops,susp Previous Rx's ?Medication ?Instructions ?Recorded blood sugar diagnostic (FreeStyle #100 ea 07/09/21 Lite Strips) blood-glucose meter (FreeStyle #1 ea 03/12/22 Lite Meter kit) flash glucose scanning reader #1 ea 04/11/22 (FreeStyle [place] 2 [place]) pantoprazole 40 mg tablet,delayed 40 mg PO DAILY #90 tabs 01/13/23 release hydrocortisone 2.5 % topical cream 1 appl GA BID-QID PRN hemorrhoids 03/13/23 with perineal applicator #30 grams (Proctosol HC) acetaminophen 325 mg tablet 650 mg (2 x 325 mg) PO Q6H PRN 05/06/23 (Tylenol) pain #14 tabs ibuprofen 600 mg tablet 600 mg PO Q8H PRN pain #14 tabs 05/06/23 naproxen 500 mg tablet 500 mg PO BID 30 days #60 tabs 08/18/24 hydroxyzine pamoate 25 mg capsule 25 mg PO BEDTIME 30 days #30 caps 09/02/24 sennosides 8.6 mg tablet (Natural 17.2 mg (2 x 8.6 mg) PO QDAY #60 10/03/24 Senna Laxative) tabs gabapentin 300 mg capsule 300 mg PO BEDTIME 30 days #30 caps 10/26/24 levothyroxine 112 mcg tablet 112 mcg PO DAILY #30 tabs 11/04/24 Allergies Allergy/AdvReac Type Severity Reaction Status Date / Time Penicillins [PENICILLINS] Allergy Intermediate HIVES Verified 11/20/24 11:40 Review of Systems 2 Review of Systems: All other systems are reviewed and are negative Constitutional: Reports as per HPI and Reports no additional constitutional complaints Eyes: Reports as per HPI and Reports no additional eye complaints Reports system reviewed and no additional complaints, except as documented Cardiovascular: Reports as per HPI and Reports no additional cardiovascular complaints Respiratory: Reports as per HPI and Reports no additional respiratory complaints Gastrointestinal: Reports as per HPI and Reports no additional gastrointestinal complaints Genitourinary: Reports no additional female genitourinary complaints Musculoskeletal: Reports no additional musculoskeletal complaints Skin/Breast: Reports system reviewed and no additional complaints, except as docu Psychiatric: Reports no additional psychiatric complaints Endocrine: Reports no additional endocrine complaints Hematologic/Lymphatic: Reports no additional hematologic/lymphatic complaints Allergic/Immunologic: Reports no additional allergic/immunologic complaints Reports system reviewed and no additional complaints, except as documented and Reports Abnormal speech present [facility] Past Medical History Medical History Palpitations Non-cardiac chest pain Pelvic pain Leg pain Bladder pain Lower abdominal pain Gross hematuria Toe pain Right knee pain Effusion, right knee Dysuria Pelvic pain in female Hematuria Mass of spine Hematuria Type 2 diabetes mellitus with polyneuropathy DM2 (diabetes mellitus, type 2) Nail deformity Paronychia Failure of spinal cord stimulator Thymoma Pulmonary nodules Thyroid cancer Blood in urine Constipation by delayed colonic transit Tubular adenoma of colon Gastritis Hypertension Dyslipidemia Post-surgical hypothyroidism Primary thyroid cancer Vitamin D deficiency Surgical History History of thymectomy History of back surgery Hx of colonoscopy Hx of thyroidectomy Hx of hernia repair Hx of section Hx of hysterectomy History of esophagogastroduodenoscopy (EGD) Family History Family History Father Stroke Heart attack Mother Diabetes mellitus Family/Other Family history of cancer Sister Stomach cancer Family/Other Thyroid cancer Social History Social History Household Members: Spouse, Children and Other Are you a primary healthcare administration internship to a significant other at home: No Do you presently have visiting nurse or other home services: No Alcohol intake: unknown Patient Tobacco Use Status: Former Tobacco user Tobacco use type: Cigarette Smoked in Last 30 Days: No Second Hand Smoke Exposure: No Use of substances other than those prescribed or required for medical reasons: No Advance Directives: No Advance Directives Information Provided: Yes Sexual orientation: Straight/Heterosexual Gender identity: Female Physical Exam ED Vital Signs: Vital Signs - 24 hr 11/20/24 11:39 11/20/24 12:59 11/20/24 16:07 Temperature 98.5 F 98.6 F 98.2 F Pulse Rate 108 H 100 80 Respiratory Rate 18 26 H 14 Blood Pressure 140/82 H 141/76 H 120/60 Pulse Oximetry 100 99 98 Oxygen Delivery Method Room Air Room Air Room Air BMI result Body Mass Index 25.8 Vital signs have been reviewed and appear to be correct. Blood pressure elevated. Heart rate normal. Respiratory rate normal. Temperature normal. Oxygen saturation normal. Appearance: Alert. Oriented X3. No acute distress. Head: Normal external exam. Normocephalic. Atraumatic. No Daily signs noted. No raccoon eyes noted Eyes: PERRLA. EOMI. Conjunctiva and sclera normal. Eyelids normal. ENT: TM's Normal. Pharynx normal. Uvula midline. Moist mucous membranes. No trismus noted. No drooling noted. No muffled voice noted. Neck: Normal inspection. Neck supple. FROM. No adenopathy. Thyroid Normal. No meningeal signs. No neck mass noted. CVS: Normal heart rate and rhythm. Heart sound normal. No murmurs noted. Pulses normal throughout. Respiratory: No respiratory distress. Painless inspiration. Breath sounds normal. No wheezes/rales/rhonchi noted. Left costochondral tenderness, no step- off, no deformity. No accessory muscle usage noted or decreased air movement noted. Abdomen: Soft and nontender. Bowel sounds normal in all 4 quadrants. No distention noted. No organomegaly noted. No visible injury noted. Back: No CVA tenderness. Full range of motion noted. Skin: Skin warm and dry. Normal skin color. Normal skin turgor. No rashes/lesions/lacerations noted. Extremities: No lower extremity edema. Extremities exhibit normal range of motion. Extremities nontender. Neuro: Oriented X 3. Cranial nerve exam: II-XII are grossly intact No motor deficit. No sensory deficit. Reflexes normal. Course Course Course Narrative: RME: 63-year-old female presents to ED for left-sided chest pain that began at 2 in the morning radiating down left arm and left leg causing tingling. Patient denies any calf pain leg swelling, shortness of breath, pleurisy, weakness, dizziness coughing up blood.. Vital signs stable. EKG labs ordered. Reevaluation(s) Reevaluation #1: Chest pain, ACS is unlikely with-2 troponin and no EKG changes, no risk for pulmonary embolism with negative D-dimer, chest x-ray ruled out pneumonia, pneumothorax, pleural effusion. Physical exam is consistent with reproducible tenderness on the chest wall consistent with costochondritis. Time: 16:00 Medications Administered Discontinued Medications Generic Name Dose Route Start Last Admin Trade Name Freq PRN Reason Stop Dose Admin Acetaminophen 650 mg 11/20/24 15:14 11/20/24 15:33 Acetaminophen 325 Mg Tablet PO 11/20/24 15:15 650 mg ONCE ONE Administration Medical Decision Making Differential Diagnosis Differential Diagnoses: The differential diagnosis associated with the presentation includes (ACS, chest wall pain, costochondritis, pulmonary embolism, pneumonia, effusion, CHF, electrolyte derangement, severe anemia.) Admission/Observation Consideration of admission/observation: Escalation of care including admission/observation considered Lab Data MDM Lab Attestation statement: I reviewed the patient's lab results. 11/20/24 12:03 11/20/24 12:03 Labs: Lab Results 11/20/24 11/20/24 11/20/24 Range/Units 12:02 12:03 13:32 WBC 6.5 (4.8-10.8) X10*3/uL RBC 4.77 (4.20-5.50) X10*6/uL Hgb 11.4 L (12.0-16.0) g/dl Hct 35.8 L (37.0-47.0) % MCV 75.1 L (80.0-98.0) fL MCH 23.9 L (27.0-33.0) pg MCHC 31.8 (31.0-35.0) g/dl RDW 15.0 (11.0-16.0) % Plt Count 271 (160-400) X10*3/uL MPV 10.2 (9.4-12.3) fL Immature Gran % (Auto) 0.5 H (0.0-0.4) % Neut % (Auto) 69.2 (45-73) % Lymph % (Auto) 19.2 L (20-40) % [place] % (Auto) 6.9 (2-11) % Eos % (Auto) 2.8 (0-4) % Baso % (Auto) 1.4 (0-2) % Lymph # (Auto) 1.3 (1.2-4.9) X10*3/uL [place] # (Auto) 0.5 (0.1-1.2) X10*3/uL Eos # (Auto) 0.2 (0.0-0.4) X10*3/uL Baso # (Auto) 0.1 (0.0-0.2) X10*3/uL Abs Immat Gran (auto) 0.03 (0.00-0.03) X10*3/uL Absolute Neuts (auto) 4.5 (2.0-8.3) x10*3/uL Absolute Nucleated RBC 0.000 (0.0-0.012) X10*3/uL Nucleated RBC % (auto) 0.0 (0.0-0.2) /100WBC PT 11.5 (10.9-12.4) SEC INR 1.0 (0.9-1.1) APTT 35.0 (26.0-36.8) SEC D-Dimer High Sensitivty < 150 NG/ML Sodium 142 (135-145) mmol/L Potassium 4.1 (3.3-5.1) mmol/L Chloride 108 (96-108) mmol/L Carbon Dioxide 23 (22-29) mmol/L Anion Gap 15 (12-20) BUN 19 H (9-16) mg/dL Creatinine 0.65 (0.5-1.4) mg/dL Estim Creat Clear Calc 81.9 Estimated GFR > 60 Random Glucose 109 (60-115) mg/dL Calcium 9.4 D (8.4-10.2) mg/dL Total Bilirubin 0.3 (0.0-1.0) mg/dL AST 20 (5-31) U/L ALT 18 (0-31) U/L Alkaline Phosphatase 78 (39-117) U/L Troponin I High Sens 4.3 (<3.5-17.0) ng/L B-Natriuretic Peptide 16 (<100) pg/mL Total Protein 8.0 (6.5-8.0) g/dL Albumin 4.5 (3.5-5.0) g/dL Urine Color Yellow Urine Appearance Clear Urine pH 6.0 (5.0-9.0) Ur Specific [place] 1.010 (1.005-1.025) Urine Protein Negative (Neg-Trace) mg/dL Urine Glucose (UA) Negative (Negative) mg/dL Urine Ketones Negative (Negative) mg/dL Urine Blood Trace (Negative) Urine Nitrite Negative (Negative) Ur Leukocyte Esterase Negative (Negative) Urine RBC 0-2 (0-2) /HPF Urine WBC 0-5 (0-5) /HPF Ur Squamous Epith Cells 0-2 (0-2) /HPF Urine Bacteria None Seen (None Seen) Hyaline Casts 0-2 (0-2) /LPF Influenza Type A (PCR) NEGATIVE (Negative) Influenza Type B (PCR) NEGATIVE (Negative) RSV RNA Qual (PCR) NEGATIVE (Negative) SARS-CoV-2 RNA (RT-PCR) NEGATIVE (Negative) 11/20/24 Range/Units 15:04 WBC (4.8-10.8) X10*3/uL RBC (4.20-5.50) X10*6/uL Hgb (12.0-16.0) g/dl Hct (37.0-47.0) % MCV (80.0-98.0) fL MCH (27.0-33.0) pg MCHC (31.0-35.0) g/dl RDW (11.0-16.0) % Plt Count (160-400) X10*3/uL MPV (9.4-12.3) fL Immature Gran % (Auto) (0.0-0.4) % Neut % (Auto) (45-73) % Lymph % (Auto) (20-40) % [place] % (Auto) (2-11) % Eos % (Auto) (0-4) % Baso % (Auto) (0-2) % Lymph # (Auto) (1.2-4.9) X10*3/uL [place] # (Auto) (0.1-1.2) X10*3/uL Eos # (Auto) (0.0-0.4) X10*3/uL Baso # (Auto) (0.0-0.2) X10*3/uL Abs Immat Gran (auto) (0.00-0.03) X10*3/uL Absolute Neuts (auto) (2.0-8.3) x10*3/uL Absolute Nucleated RBC (0.0-0.012) X10*3/uL Nucleated RBC % (auto) (0.0-0.2) /100WBC PT (10.9-12.4) SEC INR (0.9-1.1) APTT (26.0-36.8) SEC D-Dimer High Sensitivty NG/ML Sodium (135-145) mmol/L Potassium (3.3-5.1) mmol/L Chloride (96-108) mmol/L Carbon Dioxide (22-29) mmol/L Anion Gap (12-20) BUN (9-16) mg/dL Creatinine (0.5-1.4) mg/dL Estim Creat Clear Calc Estimated GFR Random Glucose (60-115) mg/dL Calcium (8.4-10.2) mg/dL Total Bilirubin (0.0-1.0) mg/dL AST (5-31) U/L ALT (0-31) U/L Alkaline Phosphatase (39-117) U/L Troponin I High Sens 4.7 (<3.5-17.0) ng/L B-Natriuretic Peptide (<100) pg/mL Total Protein (6.5-8.0) g/dL Albumin (3.5-5.0) g/dL Urine Color Urine Appearance Urine pH (5.0-9.0) Ur Specific [place] (1.005-1.025) Urine Protein (Neg-Trace) mg/dL Urine Glucose (UA) (Negative) mg/dL Urine Ketones (Negative) mg/dL Urine Blood (Negative) Urine Nitrite (Negative) Ur Leukocyte Esterase (Negative) Urine RBC (0-2) /HPF Urine WBC (0-5) /HPF Ur Squamous Epith Cells (0-2) /HPF Urine Bacteria (None Seen) Hyaline Casts (0-2) /LPF Influenza Type A (PCR) (Negative) Influenza Type B (PCR) (Negative) RSV RNA Qual (PCR) (Negative) SARS-CoV-2 RNA (RT-PCR) (Negative) Independent Interpretation I performed an independent interpretation of an: Plain X-Ray (No acute intrathoracic pathology.) Radiology Impression Discussion of test interpretation with radiology: I have reviewed the radiologist's reading. Discharge Plan Discharge Clinical Impression: Chest pain, Acute costochondritis Patient Disposition: Home, Self-Care Instructions: Costochondritis (ED) Additional Instructions: Take ibuprofen 200 mg tablet [id number] medication every 6 hours if needed for pain. Follow-up with your PCP. Prescriptions: No Action (DME) FreeStyle Lite Strips Strip See Rx Instructions .ROUTE .MEDSUPPLY Qty: 100 10RF Rx Instructions: Test blood glucose twice per day (DME) FreeStyle Emile 2 [place] [facility] See Rx Instructions .ROUTE .MEDSUPPLY Qty: 1 0RF Rx Instructions: As directed naproxen 500 mg tablet 500 mg PO BID 30 Days Qty: 60 1RF hydroxyzine pamoate 25 mg capsule 25 mg PO BEDTIME 30 Days Qty: 30 1RF sennosides [Natural Senna Laxative] 8.6 mg tablet 17.2 mg PO QDAY Qty: 60 3RF albuterol sulfate [ProAir HFA] 90 mcg/actuation HFA aerosol inhaler 2 puff INHALATION Q4-6H PRN (Reason: Wheezing) Januvia 100 mg tablet 100 mg PO DAILY ibuprofen 600 mg tablet 600 mg PO Q8H PRN (Reason: pain) Qty: 14 0RF acetaminophen [Tylenol] 325 mg tablet 650 mg PO Q6H PRN (Reason: pain) Qty: 14 0RF (DME) blood-glucose meter [FreeStyle Lite Meter] Kit See Rx Instructions .ROUTE .MEDSUPPLY Qty: 1 0RF Rx Instructions: As directed pantoprazole 40 mg tablet,delayed release (DR/EC) 40 mg PO DAILY Qty: 90 2RF Rx Instructions: take one tablet half an hour before breakfast hydrocortisone [Proctosol HC] 2.5 % cream with perineal applicator 1 appl GA BID-QID PRN (Reason: hemorrhoids) Qty: 30 2RF levothyroxine 112 mcg tablet 112 mcg PO DAILY Qty: 30 12RF gabapentin 300 mg capsule 300 mg PO BEDTIME 30 Days Qty: 30 8RF metformin 500 mg tablet extended release 24 hr 500 mg PO BID fluticasone propionate 50 mcg/actuation spray,suspension intranasal montelukast 10 mg tablet 10 mg PO DAILY [id number] 3.5-10,000-1 mg/mL-unit/mL-% drops,suspension otic (ears) Referrals: Yi Thompson MD [Primary Care Provider] - Interventions: ED Discharge Assessment Last Done: 11/20/24 16:07 Discharge Date/Time: 11/20/24 16:08 Print Language: Latvian
[2024-11-20 12:07] LABS: MANUAL DIFF FLAG NO
[2024-11-20 12:17] LABS: Basophils Absolute Auto 0.1 X10*3/uL (0.0-0.2); Basophils Percent Auto 1.4 % (0-2); Eosinophils Absolute Auto 0.2 X10*3/uL (0.0-0.4); Eosinophils Percent Auto 2.8 % (0-4); Hematocrit 35.8 % (37.0-47.0); Hemoglobin 11.4 g/dl (12.0-16.0); Imm Gran Abs Auto 0.03 X10*3/uL (0.00-0.03); Imm Gran Pct Auto 0.5 % (0.0-0.4); Lymphocytes Absolute Auto 1.3 X10*3/uL (1.2-4.9); Lymphocytes Percent Auto 19.2 % (20-40); Mean Corpuscular HGB Conc 31.8 g/dl (31.0-35.0); Mean Corpuscular Hemoglobin 23.9 pg (27.0-33.0); Mean Corpuscular Volume 75.1 fL (80.0-98.0); Mean Platelet Volume 10.2 fL (9.4-12.3); Monocytes Absolute Auto 0.5 X10*3/uL (0.1-1.2); Monocytes Percent Auto 6.9 % (2-11); Neutrophils Absolute Auto 4.5 x10*3/uL (2.0-8.3); Neutrophils Percent Auto 69.2 % (45-73); Platelet Count 271 X10*3/uL (160-400); Red Blood Count 4.77 X10*6/uL (4.20-5.50); White Blood Count 6.5 X10*3/uL (4.8-10.8)
[2024-11-20 12:25] LABS: Prothrombin Time 11.5 SEC (10.9-12.4)
[2024-11-20 12:31] LABS: Alanine Aminotransferase 18 U/L (0-31); Albumin Level 4.5 g/dL (3.5-5.0); Alkaline Phosphatase 78 U/L (39-117); Anion Gap 15 (12-20); Aspartate Amino Transferase 20 U/L (5-31); Bilirubin Total 0.3 mg/dL (0.0-1.0); Blood Urea Nitrogen 19 mg/dL (9-16); Calcium 9.4 mg/dL (8.4-10.2); Carbon Dioxide 23 mmol/L (22-29); Chloride 108 mmol/L (96-108); Creatinine Clr Calc Pharmacy 81.9; Estimated Glomerular Filt Rate > 60; Glucose Random 109 mg/dL (60-115); Potassium 4.1 mmol/L (3.3-5.1); Sodium 142 mmol/L (135-145)
[2024-11-20 12:35] LABS: B Type Natriuretic Peptide 16 pg/mL (<100)
[2024-11-20 12:37] LABS: Troponin-I High Sensitivity 4.3 ng/L (<3.5-17.0)
[2024-11-20 12:59] VITALS: BP 141/76; PULSE 100; RESP 26; TEMP 37; O2SAT 99
[2024-11-20 13:01] LABS: D Dimer High Sensitivity < 150 NG/ML
[2024-11-20 13:09] LABS: Influenza A PCR NEGATIVE (Negative); Influenza B PCR NEGATIVE (Negative); Resp Syncy Virus RNA Qual PCR NEGATIVE (Negative); SARS COV2 PCR INHOUSE NEGATIVE (Negative)
[2024-11-20 13:39] LABS: Appearance Urine Clear; Color Urine Yellow; Glucose Urine UA Negative (Negative); Leukocyte Esterase Urine Negative (Negative); Nitrite Urine Negative (Negative); UMIC TRIGGER UACC YES; Urine Blood Trace (Negative); Urine Ketones Negative (Negative); Urine Protein Negative (Neg-Trace)
[2024-11-20 13:44] LABS: Bacteria Urine None Seen (None Seen); Hyaline Casts Urine 0-2 /LPF (0-2); RBC Urine 0-2 /HPF (0-2); Squamous Epithelial Cell Urine 0-2 /HPF (0-2); WBC Urine 0-5 /HPF (0-5)
[2024-11-20] MEDS: Acetaminophen 325 MG TABLET 650 MG PO (15:33)
[2024-11-20 15:36] LABS: Troponin-I High Sensitivity 4.7 ng/L (<3.5-17.0)
[2024-11-20 16:07] VITALS: BP 120/60; PULSE 80; RESP 14; TEMP 36.8; O2SAT 98
== END 2024-11-20 16:08 | disposition home or self-care (01) ==
PROVIDERS: Physician Assistant; Emergency Provider Emergency Medicine; PCP Student in an Organized Health Care Education/Training Program
DX: R07.89 Other chest pain (principal); N64.4 Mastodynia; M94.0 Chondrocostal junction syndrome [Tietze]; R06.02 Shortness of breath; Z79.899 Other long term (current) drug therapy; Z87.891 Personal history of nicotine dependence; Z03.818 Encounter for observation for suspected exposure to other biological agents ruled out
CPT/HCPCS: 0241U; 36415; 71045; 80053; 81001; 83880; 84484; 85025; 85379; 85610; 85730; 93005; 99284; 99285

== ENCOUNTER → 2024-11-20 11:28 | Outpatient (BNV) | payer OTHER, SELFPAY | PROVIDERS: Emergency Provider Emergency Medicine; PCP Student in an Organized Health Care Education/Training Program; Visit Provider Internal Medicine | DX: R94.31 Abnormal electrocardiogram [ECG] [EKG] (principal) | CPT/HCPCS: 93010 ==

== ENCOUNTER → 2024-11-20 11:40 | Outpatient (BNV) | payer OTHER, SELFPAY | PROVIDERS: Emergency Provider Emergency Medicine; PCP Student in an Organized Health Care Education/Training Program; Visit Provider Radiology Diagnostic Radiology | DX: R07.9 Chest pain, unspecified (principal) | CPT/HCPCS: 71045 ==

== ENCOUNTER 2024-11-21 09:09 | Outpatient (AMB) | payer OTHER, SELFPAY ==
--- NOTE | 2024-11-21 09:11 | MHC.OFFVIS ---
Vital Signs 11/21/24 09:12 Height 5 ft 4 in Weight 151 lb BMI 25.9 BP 126/58 L Blood Pressure Location Lt brachial Position Sitting Respiration 16 Pulse 101 H Pulse Source Pulse Oximeter Pulse Oximetry (%) 100 Oxygen Delivery Method Room Air Intake Visit Reasons: 2 weeks FU Dance Choreographer Required: Yes Dance Choreographer Services: Dance Choreographer Present Dance Choreographer Name: Starla Allergies Penicillins [PENICILLINS] Allergy (Intermediate, Verified 11/21/24 09:14) HIVES Medication List - Last Reconciled 11/21/24 by Laly Alvarez LPN acetaminophen (Tylenol) 650 mg (2 x 325 mg) PO Q6H PRN albuterol sulfate 90 mcg/actuation (ProAir HFA) 2 puffs inhalation Q4-6H PRN blood sugar diagnostic (FreeStyle Lite Strips) Test blood glucose twice per day blood-glucose meter (FreeStyle Lite Meter kit) As directed flash glucose scanning reader (miCabStyle Emile 2 Victoria) As directed fluticasone propionate 50 mcg/actuation sprays intranasal gabapentin 300 mg PO BEDTIME 30 days hydrocortisone 2.5% (Proctosol HC) 1 appl [place] BID-QID PRN hydroxyzine pamoate 25 mg PO BEDTIME 30 days ibuprofen 600 mg PO Q8H PRN levothyroxine 112 mcg PO DAILY metformin ER 500 mg PO BID montelukast 10 mg PO DAILY naproxen 500 mg PO BID 30 days ykqncdlf-yanohmsch-RV 3.5-10,000-1 mg/mL-unit/mL-% drps otic (ears) pantoprazole 40 mg PO DAILY sennosides (Natural Senna Laxative) 17.2 mg (2 x 8.6 mg) PO QDAY sitagliptin phosphate (Januvia) 100 mg PO DAILY HPI Comments Details: Sapna is in my office today to discuss her situation at hands. 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 Unfortunately with her device she can not go to MRI. Her pain syndrome could be possibly stemming out of the MTX as well. I decided to offer this patient removal of the [employer] spinal cord stimulator. This is especially important because patient stop receiving any benefits from the device. I will schedule her for the procedure as soon as possible preferably on or before 12/02/2024. The patient is flying out of country 12/25/2024 and she will be back only on 01/13/2025. Prior: very pleasant 63 years old female who is today in my office after diagnostic right sacroiliac joint injection. She reported no improvement after the procedure short of immediately after the injection her pain became 2/10 from 7/10. Her pain remained 6 to 8/10 for the 1st few hours after the procedure. In additional notes she noted that her pain even increased after 6 hours after the procedure. The patient is suffering from multiple pain generators. However right sacroiliac joint is unlikely the patient is pain generators. To further diagnose the patient's condition I decided to perform CT myelogram, she can not go into the MRI for the reasons described below. Prior: complains on pain in the right posterior hip with radiation into anterior hip and anterior thigh. She was under care in this office with right knee pain and she received [employer] spinal cord stimulator in the lumbar position L1-L2 L3 to stimulate the dorsal roots of L1-L2 and L3 to help her pain in the knee. Since then she had several falls and she was sent to CT scan with and without contrast. Unfortunately some impedances were lost at her spinal cord stimulator and MRI is contraindicated for her. On the CT scan all levels lumbar spine appears to be normal, see the full dictation as below, accept L5-S1 level where the degenerative disc and endplate changes as well as arthritis. . [facility] Medical History Palpitations Non-cardiac chest pain Pelvic pain Leg pain Bladder pain Lower abdominal pain Gross hematuria Toe pain Right knee pain Effusion, right knee Dysuria Pelvic pain in female Hematuria Mass of spine Hematuria Type 2 diabetes mellitus with polyneuropathy DM2 (diabetes mellitus, type 2) Nail deformity Paronychia Failure of spinal cord stimulator Thymoma Pulmonary nodules Thyroid cancer Blood in urine Constipation by delayed colonic transit Tubular adenoma of colon Gastritis Hypertension Dyslipidemia Post-surgical hypothyroidism Primary thyroid cancer Vitamin D deficiency Surgical History History of thymectomy History of back surgery Hx of colonoscopy Hx of thyroidectomy Hx of hernia repair Hx of section Hx of hysterectomy History of esophagogastroduodenoscopy (EGD) Family History Father Stroke Heart attack Mother Diabetes mellitus Family/Other Family history of cancer Sister Stomach cancer Family/Other Thyroid cancer Social History Household Members: Spouse, Children and Other Are you a primary animal care attendant to a significant other at home: No Do you presently have visiting nurse or other home services: No Alcohol intake: unknown Patient Tobacco Use Status: Former Tobacco user Tobacco use type: Cigarette Second Hand Smoke Exposure: No Sexual orientation: Straight/Heterosexual Gender identity: Female Review of Systems Const All systems reviewed & are unremarkable except as noted in HPI and below Physical Exam Vital Signs: Last Vital Signs Pulse 101 H 11/21/24 09:12 Resp 16 11/21/24 09:12 BP 126/58 L 11/21/24 09:12 Pulse Ox 100 11/21/24 09:12 Oxygen Delivery Method Room Air 11/21/24 09:12 BMI result Body Mass Index 25.9 Const General: no acute distress and alert Orientation/consciousness: patient oriented x3 Chest Chest palpation & inspection: normal inspection of the chest Resp Effort & Inspection: normal respiratory effort, able to speak in complete sentences, normal respiratory pattern, no audible wheezes and no cough Cardio Jugular venous distension: no JVD Neuro General: patient oriented x3 Extrem Other: Right Knee: Mild effusion Global, non-specific TTP Results Reviewed Results Reviewed: LUMBAR SPINE WITHOUT CONTRAST CLINICAL INFORMATION: Evaluate for disc herniation, patient has spinal cord stimulator COMPARISON: Lumbar spine radiograph 05/04/2024 TECHNIQUE: Noncontrast axial 1.5 and 2 mm sections through the lumbar spine were obtained. Coronal and sagittal reformats were obtained at the acquisition workstation. This CT examination was performed using dose optimization techniques as appropriate, variously including the following: *Automated exposure control *Adjustment of mA and/or kV according to patient size (this includes techniques or standardized protocols for targeted exams where dose is matched to indication/reason for exam; i.e. extremities or head) *Use of iterative reconstruction technique DLP; 386 mGy-cm FINDINGS: No acute fracture involving the lumbar spine. The lumbar vertebral bodies demonstrate normal height. Overall sagittal alignment appears maintained. There is moderate intervertebral disc space narrowing with intradiscal vacuum phenomena and endplate degenerative changes at L5-S1. Again noted generator device in the right gluteal subcutaneous soft tissues with intact stimulator lead terminating within the lumbar spinal canal at the level of L1. The paravertebral soft tissues appear unremarkable. Mild aortoiliac atherosclerosis. Few sigmoid colonic diverticula. Mild degenerative changes involving bilateral sacroiliac joints. T12-L1:No spinal canal or foraminal stenosis. L1-L2: No spinal canal or foraminal stenosis. L2- L3: No spinal canal or foraminal stenosis. L3-L4:No spinal canal or foraminal stenosis.Mild facet arthropathy. L4-L5: Minimal disc bulge. No spinal canal or foraminal stenosis. Mild facet arthropathy. L5-S1: Disc bulge with superimposed left paracentral disc protrusion and left subarticular stenosis. There is likely mass effect on the left S1 traversing nerve root, although not well evaluated on CT. No significant right-sided foraminal stenosis. Moderate to severe bilateral facet arthropathy.Mild right and tidn-le-yegcyoas left foraminal stenosis. IMPRESSION: At L5-S1, there is disc bulge with superimposed left paracentral disc protrusion and left subarticular stenosis.There is likely mass effect on the left S1 traversing nerve root, although not well evaluated on CT. Moderate to severe bilateral facet arthropathy.Mild right and yqqj-ei-lfyvuyav left foraminal stenosis. Mild facet arthropathy at L3-4 and L4-L5.. Assessment & Plan Assessment & Plan (1) Spondylosis of lumbar region without myelopathy or radiculopathy: Code(s): M47.816 - Spondylosis without myelopathy or radiculopathy, lumbar region Category: Medical (2) Disc degeneration, lumbar: Code(s): M51.36 - Other intervertebral disc degeneration, lumbar region Category: Medical (3) Lumbar radiculopathy: Code(s): M54.16 - Radiculopathy, lumbar region Category: Medical (4) Back pain: Code(s): M54.9 - Dorsalgia, unspecified Category: Medical Qualifiers: Back pain location: low back pain Chronicity: chronic Back pain laterality: right Sciatica presence: with sciatica Sciatica laterality: sciatica of right side Qualified Code(s): M54.41 - Lumbago with sciatica, right side; G89.29 - Other chronic pain (5) Sacroiliitis: Code(s): M46.1 - Sacroiliitis, not elsewhere classified Category: Medical (6) Chronic right SI joint pain: Code(s): M53.3 - Sacrococcygeal disorders, not elsewhere classified; G89.29 - Other chronic pain Category: Medical Plan Sapna is longstanding patient of mine who received treatment for right arthritis of the knee with [employer] spinal cord stimulator. Now she complains on pain in the right thigh and right hip unfortunately diagnostic SI joint injection resulted in no pain improvement. Her CT scan is positive for L5-S1 endplate changes and facet arthropathy. CT myelography was read however it has not instrumental to properly diagnose possible MTX to the L5. She was seen by vehicle leasing and rental manager and MRI is recommended. Therefore we need to remove the spinal cord stimulator as soon as possible. I will schedule her for the procedure and I will try to expedite the procedure to help her to heal as soon as possible. She reports good pain control with gabapentin I will continue this prescription for her. She still has refills in her possession. Patient Instructions: I here by testify that I spent 35 minutes in conversation with this patient as well as planning her care and organizing this note. flea market seller Norah voice number [phone] was helping us to maintain this conversation in Frisian. Coding Level of Care Code Est Pt Level 4 (26256) Diagnoses Spondylosis of lumbar region without myelopathy or radiculopathy M47.816 Disc degeneration, lumbar M51.36 Lumbar radiculopathy M54.16 Chronic right-sided low back pain with right-sided sciatica M54.41; G89.29 Back pain location: low back pain Chronicity: chronic Back pain laterality: right Sciatica presence: with sciatica Sciatica laterality: sciatica of right side Sacroiliitis M46.1 Chronic right SI joint pain M53.3; G89.29
[2024-11-21 09:12] VITALS: BP 126/58; PULSE 101; RESP 16; O2SAT 100; BMI 25.9
== END 2024-11-21 09:52 | disposition home or self-care (01) ==
PROVIDERS: PCP Student in an Organized Health Care Education/Training Program; Visit Provider Anesthesiology
DX: M47.816 Spondylosis without myelopathy or radiculopathy, lumbar region (principal); M51.369 Other intervertebral disc degeneration, lumbar region without mention of lumbar back pain or lower extremity pain; M54.16 Radiculopathy, lumbar region; M54.41 Lumbago with sciatica, right side; G89.29 Other chronic pain; M46.1 Sacroiliitis, not elsewhere classified; M53.3 Sacrococcygeal disorders, not elsewhere classified
CPT/HCPCS: 99214

== ENCOUNTER 2024-11-28 09:39 | Outpatient (REF) | payer OTHER, SELFPAY ==
--- NOTE | ~2024-11-28 | XR_ITS ---
EXAMINATION: XR CERVICAL SPINE 2-3 VIEWS HISTORY: G24.3 - Spasmodic torticollis COMPARISON: Comparison is made with the prior examination dated 08/29/2022. FINDINGS: AP, lateral, and open-mouth odontoid views of the cervical spine are submitted. Osseous mineralization is normal. Seven cervical vertebral bodies are identified maintaining normal height and alignment without evidence of fracture or subluxation. There is mild degenerative disc disease at C6-7 with disc space narrowing and osteophyte formation. The remaining intervertebral disc spaces are preserved. The odontoid and lateral masses of C1 are intact. There is no prevertebral soft tissue swelling. XR/XR cervical spine 3V IMPRESSION: Mild degenerative change at C5-6. Electronically signed by: Milton Duckworth MD 11/30/2024 03:32 PM LEONEL
[2024-11-28 15:38] LABS: MANUAL DIFF FLAG NO
[2024-11-28 15:48] LABS: Basophils Absolute Auto 0.1 X10*3/uL (0.0-0.2); Basophils Percent Auto 1.1 % (0-2); Eosinophils Absolute Auto 0.2 X10*3/uL (0.0-0.4); Eosinophils Percent Auto 2.5 % (0-4); Hematocrit 34.5 % (37.0-47.0); Hemoglobin 10.8 g/dl (12.0-16.0); Imm Gran Abs Auto 0.04 X10*3/uL (0.00-0.03); Imm Gran Pct Auto 0.5 % (0.0-0.4); Lymphocytes Absolute Auto 1.9 X10*3/uL (1.2-4.9); Lymphocytes Percent Auto 23.7 % (20-40); Mean Corpuscular HGB Conc 31.3 g/dl (31.0-35.0); Mean Corpuscular Hemoglobin 23.6 pg (27.0-33.0); Mean Corpuscular Volume 75.5 fL (80.0-98.0); Mean Platelet Volume 10.5 fL (9.4-12.3); Monocytes Absolute Auto 0.5 X10*3/uL (0.1-1.2); Monocytes Percent Auto 6.4 % (2-11); Neutrophils Absolute Auto 5.3 x10*3/uL (2.0-8.3); Neutrophils Percent Auto 65.8 % (45-73); Platelet Count 266 X10*3/uL (160-400); Red Blood Count 4.57 X10*6/uL (4.20-5.50)
[2024-11-28 17:02] LABS: Erythrocyte Sedimentation Rate 17 MM/HR (0-20)
[2024-11-28 18:34] LABS: Free T4 (Free Thyroxine) 1.31 ng/dL (0.71-1.85)
[2024-11-28 19:26] LABS: Alanine Aminotransferase 20 U/L (0-31); Albumin Level 4.5 g/dL (3.5-5.0); Anion Gap 18 (12-20); Aspartate Amino Transferase 22 U/L (5-31); Bilirubin Total 0.2 mg/dL (0.0-1.0); Blood Urea Nitrogen 29 mg/dL (9-16); Calcium 9.7 mg/dL (8.4-10.2); Carbon Dioxide 24 mmol/L (22-29); Chloride 106 mmol/L (96-108); Estimated Glomerular Filt Rate > 60; Glucose Random 141 mg/dL (60-115); Potassium 4.2 mmol/L (3.3-5.1); Sodium 144 mmol/L (135-145); Total Protein 8.2 g/dL (6.5-8.0)
[2024-11-28 19:29] LABS: Folate 11.5 ng/mL (> or = 4.0); Vitamin B12 295 pg/mL (200-900)
[2024-11-28 19:41] LABS: TSH reflex Free T4 2.36 uIU/mL (0.32-4.0)
[2024-11-28 20:19] LABS: Alkaline Phosphatase 74 U/L (39-117)
[2024-12-02 17:57] LABS: Vitamin D 25-OH, D2 <4 ng/mL; Vitamin D 25-OH, D3 23 ng/mL; Vitamin D 25-OH, Total 23 ng/mL (30-100)
== END 2024-11-28 09:40 | disposition home or self-care (01) ==
LOC: HO.XRAY 09:39
PROVIDERS: Internal Medicine Endocrinology, Diabetes & Metabolism; PCP Student in an Organized Health Care Education/Training Program; Visit Provider Psychiatry & Neurology Neurology
DX: F09 Unspecified mental disorder due to known physiological condition (principal); E89.0 Postprocedural hypothyroidism; G24.3 Spasmodic torticollis
CPT/HCPCS: 36415; 72040; 80053; 82306; 82607; 82746; 84439; 84443; 85025; 85652

== ENCOUNTER 2024-11-28 09:39 | Outpatient (AMB) | payer OTHER, SELFPAY ==
--- NOTE | 2024-11-28 09:44 | A.OFFVIS_ITS ---
Vital Signs 11/28/24 09:47 Height 5 ft 4 in Weight 151 lb BMI 25.9 Intake Visit Reasons: INP-Migraines Intake Note: Patient presents for migraines Radiographer Technologist Required: Yes Radiographer Technologist Language: Front Line Leader Services: Radiographer Technologist Present Radiographer Technologist Name: Rob [id number] Allergies Penicillins [PENICILLINS] Allergy (Intermediate, Verified 11/28/24 09:45) HIVES Medication List - Last Reconciled 11/28/24 by Deepthi Velazquez MD acetaminophen (Tylenol) 650 mg (2 x 325 mg) PO Q6H PRN albuterol sulfate 90 mcg/actuation (ProAir HFA) 2 puffs inhalation Q4-6H PRN amitriptyline 10 mg PO BEDTIME blood sugar diagnostic (FreeStyle Lite Strips) Test blood glucose twice per day blood-glucose meter (FreeStyle Lite Meter kit) As directed flash glucose scanning reader ([employer] MatchMakerStyle Emile 2 [place]) As directed fluticasone propionate 50 mcg/actuation sprays intranasal gabapentin 300 mg PO BEDTIME 30 days hydrocortisone 2.5% (Proctosol HC) 1 appl [place] BID-QID PRN hydroxyzine pamoate 25 mg PO BEDTIME 30 days ibuprofen 600 mg PO Q8H PRN levothyroxine 112 mcg PO DAILY losartan 100 mg PO DAILY metformin ER 500 mg PO BID montelukast 10 mg PO DAILY naproxen 500 mg PO BID 30 days dnpbynmn-mwdxxbrol-XO 3.5-10,000-1 mg/mL-unit/mL-% drps otic (ears) pantoprazole 40 mg PO DAILY sennosides (Natural Senna Laxative) 17.2 mg (2 x 8.6 mg) PO QDAY sitagliptin phosphate (Januvia) 100 mg PO DAILY HPI Comments Details: A certified medical tele intrerpreter helped during todays visit.[id number] 63y/o female comes for evaluation of headaches and memory issues. She reports headaches for about 30years and has increased in frequency for the past when she was young her headaches were accompanied with vomiting, light and noise sensitivity and was 3-4 times a week .As she got older the headaches decreased but for past 3-4 months she has constant occipital headache, that radiates to frontal and retroorbital region.. she also has neck pain with light and noise sensitivity .she takes tylenol everyday for her arthritis and headaches. she has a spinal cord stimulator which the surgeon is planning to remove to some issues with the stimulator. She also reports short term memory issues.she forgets conversations, forgets that the stove is on sometimes, misplaces things around the house.she is independent in all ADLs. 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 [facility] Medical History (Updated 11/28/24 @ 10:33 by Deepthi Velazquez MD) Headache Cognitive disorder Cervical dystonia Palpitations Non-cardiac chest pain Pelvic pain Leg pain Bladder pain Lower abdominal pain Gross hematuria Toe pain Right knee pain Effusion, right knee Dysuria Pelvic pain in female Hematuria Mass of spine Hematuria Type 2 diabetes mellitus with polyneuropathy DM2 (diabetes mellitus, type 2) Nail deformity Paronychia Failure of spinal cord stimulator Thymoma Pulmonary nodules Thyroid cancer Blood in urine Constipation by delayed colonic transit Tubular adenoma of colon Gastritis Hypertension Dyslipidemia Post-surgical hypothyroidism Primary thyroid cancer Vitamin D deficiency Surgical History History of thymectomy History of back surgery Hx of colonoscopy Hx of thyroidectomy Hx of hernia repair Hx of section Hx of hysterectomy History of esophagogastroduodenoscopy (EGD) Family History Father Stroke Heart attack Mother Diabetes mellitus Family/Other Family history of cancer Sister Stomach cancer Family/Other Thyroid cancer Social History Household Members: Spouse, Children and Other Are you a primary intensive care nurse to a significant other at home: No Do you presently have visiting nurse or other home services: No Alcohol intake: unknown Patient Tobacco Use Status: Former Tobacco user Tobacco use type: Cigarette Second Hand Smoke Exposure: No Sexual orientation: Straight/Heterosexual Gender identity: Female Physical Exam Vital Signs: BMI result Body Mass Index 25.9 Const General: cooperative, healthy appearing and comfortable Nutritional Appearance: average body habitus Orientation/consciousness: patient oriented x3 Eyes Pupils: Equal, round and reactive pupils present Neuro Other: head tremors Right laterocollis Tenderness in Right levator and splenius General: patient oriented x3, gait normal, tone normal, moves all extremities and no focal motor deficits Cranial nerves: Yes Facial sensation intact/muscles of mastication intact, Yes Equal, round and reactive pupils present, Yes Bilaterally intact EOM present, Yes Nystagmus not present, Yes Normal facial strength present, Yes Midline tongue present and Yes Ability to bilaterally elevate shoulders present Cognition (Neuro): normal cognition Gait exam (Neuro): Normal gait present Motor exam (neuro): 5/5 motor strength present throughout and Normal motor muscle tone present throughout Deep tendon reflexes (DTR's): Right triceps reflex intensity grade: 2+, Left triceps reflex intensity grade: 2+, Rt Biceps (C5, C6): 2+, Left biceps reflex intensity grade: 2+, Right brachioradialis reflex intensity grade: 2+, Left brachioradialis reflex intensity grade: 2+, Right patellar reflex intensity grade: 2+ and Left patellar reflex intensity grade: 2+ Coordination: [id number]-yh-kxdn test normal Orientation What is the (year) (season) (date) (day) (month)?: year, season, date, day and month Where are we (state) (county) (town or city) (hospital) (floor)?: state, county, town or city, hospital/clinic and floor Registration Name of 3 unrelated objects clearly and slowly, then ask patient to repeat all 3 of them. (1st repeat determines score. Make sure they can repeat all three): object 1, object 2 and object 3 Attention & Calculation (CHOOSE ONE) Spell WORLD backwards (DLROW): 4 letters Recall Ask patient to repeat the 3 items from question #3.: object 1 Language Show patient a wristwatch & ask what it is. Repeat for pencil.: watch and pencil Ask the patient to repeat the phrase 'No ifs, ands, or buts' after you.: correct Ask the patient to 'take a piece of paper with their right hand' 'fold paper in half' 'place paper on floor': take paper in right hand, fold paper in half and place paper on floor Print the sentence 'CLOSE YOUR EYES' on a piece. If patient actually closes eyes then score.: followed written direction Give patient a blank piece of paper & ask to write a sentence. Score if it contains a noun & verb.: sentence contains subject and verb Ask patient to copy figure of intersecting pentagons exactly. Score if all 10 angles & 2 intersects are included.: all 10 angles present & 2 are intersected Score Score: 27 Assessment & Plan Assessment & Plan (1) Cervical dystonia: Code(s): G24.3 - Spasmodic torticollis Category: Medical (2) Cognitive disorder: Code(s): F09 - Unspecified mental disorder due to known physiological condition Category: Medical (3) Headache: Comment: chronic - cervicogenic with migraine features, H/O migraines Code(s): R51.9 - Headache, unspecified Category: Medical Qualifiers: Headache type: cervicogenic headache Qualified Code(s): G44.86 - Cervicogenic headache Plan Prior auth for botox and schedule for injection to neck muscles. This will help her neck pain , dystonia and headaches I will also trial her on amitriptyline 10 mg qhs She did well on MMSE - i will check her Vit B 12 TSH ESR CBC CMP to r/o reversible causes will consider HST Orders: Orders TSH reflex Free T4 Today F09 - Unspecified mental disorder due to known physiological condition Comprehensive Met. Panel Today F09 - Unspecified mental disorder due to known physiological condition Complete Blood Count Auto Diff Today F09 - Unspecified mental disorder due to known physiological condition XR cervical spine 3V Today G24.3 - Spasmodic torticollis Vitamin B12 and Folate Today F09 - Unspecified mental disorder due to known physiological condition Erythrocyte Sedimentation Rate Today F09 - Unspecified mental disorder due to known physiological condition Vitamin D 25-OH (D2 and D3) Today F09 - Unspecified mental disorder due to known physiological condition Medications: New amitriptyline 10 mg PO BEDTIME 30 tabs 6RF Coding Level of Care Code New Pt Level 4 (33666) Complex EM visit Add On G2211 Diagnoses Cervical dystonia G24.3 Cognitive disorder F09 Cervicogenic headache G44.86 Headache type: cervicogenic headache
[2024-11-28 09:47] VITALS: BMI 25.9
== END 2024-11-28 10:18 | disposition home or self-care (01) ==
PROVIDERS: PCP Student in an Organized Health Care Education/Training Program; Visit Provider Psychiatry & Neurology Neurology
DX: G24.3 Spasmodic torticollis (principal); R41.89 Other symptoms and signs involving cognitive functions and awareness; G44.86 Cervicogenic headache
CPT/HCPCS: 99204

== ENCOUNTER 2024-11-28 14:18 | Outpatient (AMB) | payer OTHER, SELFPAY ==
--- NOTE | 2024-11-28 14:31 | MHC.OFFVIS ---
Vital Signs 11/28/24 14:35 Height 5 ft 4 in Weight 153 lb BMI 26.3 BP 119/54 L Blood Pressure Location Lt brachial Position Sitting Respiration 16 Pulse 107 H Pulse Source Pulse Oximeter Pulse Oximetry (%) 97 Oxygen Delivery Method Room Air Intake Visit Reasons: Pain in legs Allergies Penicillins [PENICILLINS] Allergy (Intermediate, Verified 11/28/24 14:38) HIVES Medication List - Last Reconciled 11/28/24 by Laly Alvarez LPN acetaminophen (Tylenol) 650 mg (2 x 325 mg) PO Q6H PRN albuterol sulfate 90 mcg/actuation (ProAir HFA) 2 puffs inhalation Q4-6H PRN amitriptyline 10 mg PO BEDTIME blood sugar diagnostic (FreeStyle Lite Strips) Test blood glucose twice per day blood-glucose meter (FreeStyle Lite Meter kit) As directed flash glucose scanning reader ([email or web address] Emile 2 [place]) As directed fluticasone propionate 50 mcg/actuation sprays intranasal gabapentin 300 mg PO BEDTIME 30 days hydrocortisone 2.5% (Proctosol HC) 1 appl [place] BID-QID PRN hydroxyzine pamoate 25 mg PO BEDTIME 30 days ibuprofen 600 mg PO Q8H PRN levothyroxine 112 mcg PO DAILY losartan 100 mg PO DAILY metformin ER 500 mg PO BID montelukast 10 mg PO DAILY naproxen 500 mg PO BID 30 days kawnlimy-ewlgkhevj-YH 3.5-10,000-1 mg/mL-unit/mL-% drps otic (ears) pantoprazole 40 mg PO DAILY sennosides (Natural Senna Laxative) 17.2 mg (2 x 8.6 mg) PO QDAY sitagliptin phosphate (Januvia) 100 mg PO DAILY HPI Comments Details: Sapna is in my office today to to find out when she is scheduled for removal of her spinal cord stimulator. She recently went for consult with the infection prevention specialist oncologist and there is recommendation to perform MRI to rule out possible intervertebral MTX L5. Unfortunately with her device she can not go to MRI. Her pain syndrome could be possibly stemming out of the MTX as well. I decided to offer this patient removal of the [employer] spinal cord stimulator. She is scheduled for removal of spinal cord stimulation on 12/09/2024. She is living for [place] on 12/25/2024, we will remove the becky on 12/23/2024. Prior: very pleasant 63 years old female who is today in my office after diagnostic right sacroiliac joint injection. She reported no improvement after the procedure short of immediately after the injection her pain became 2/10 from 7/10. Her pain remained 6 to 8/10 for the 1st few hours after the procedure. In additional notes she noted that her pain even increased after 6 hours after the procedure. The patient is suffering from multiple pain generators. However right sacroiliac joint is unlikely the patient is pain generators. To further diagnose the patient's condition I decided to perform CT myelogram, she can not go into the MRI for the reasons described below. Prior: complains on pain in the right posterior hip with radiation into anterior hip and anterior thigh. She was under care in this office with right knee pain and she received [employer] spinal cord stimulator in the lumbar position L1-L2 L3 to stimulate the dorsal roots of L1-L2 and L3 to help her pain in the knee. Since then she had several falls and she was sent to CT scan with and without contrast. Unfortunately some impedances were lost at her spinal cord stimulator and MRI is contraindicated for her. On the CT scan all levels lumbar spine appears to be normal, see the full dictation as below, accept L5-S1 level where the degenerative disc and endplate changes as well as arthritis. . [facility] Medical History (Updated 11/28/24 @ 10:33 by Deepthi Velazquez MD) Headache Cognitive disorder Cervical dystonia Palpitations Non-cardiac chest pain Pelvic pain Leg pain Bladder pain Lower abdominal pain Gross hematuria Toe pain Right knee pain Effusion, right knee Dysuria Pelvic pain in female Hematuria Mass of spine Hematuria Type 2 diabetes mellitus with polyneuropathy DM2 (diabetes mellitus, type 2) Nail deformity Paronychia Failure of spinal cord stimulator Thymoma Pulmonary nodules Thyroid cancer Blood in urine Constipation by delayed colonic transit Tubular adenoma of colon Gastritis Hypertension Dyslipidemia Post-surgical hypothyroidism Primary thyroid cancer Vitamin D deficiency Surgical History History of thymectomy History of back surgery Hx of colonoscopy Hx of thyroidectomy Hx of hernia repair Hx of section Hx of hysterectomy History of esophagogastroduodenoscopy (EGD) Family History Father Stroke Heart attack Mother Diabetes mellitus Family/Other Family history of cancer Sister Stomach cancer Family/Other Thyroid cancer Social History Household Members: Spouse, Children and Other Are you a primary healthcare account manager to a significant other at home: No Do you presently have visiting nurse or other home services: No Alcohol intake: unknown Patient Tobacco Use Status: Former Tobacco user Tobacco use type: Cigarette Second Hand Smoke Exposure: No Sexual orientation: Straight/Heterosexual Gender identity: Female Review of Systems Const All systems reviewed & are unremarkable except as noted in HPI and below Physical Exam Vital Signs: Last Vital Signs Pulse 107 H 11/28/24 14:35 Resp 16 11/28/24 14:35 BP 119/54 L 11/28/24 14:35 Pulse Ox 97 11/28/24 14:35 Oxygen Delivery Method Room Air 11/28/24 14:35 BMI result Body Mass Index 26.3 Const General: no acute distress and alert Orientation/consciousness: patient oriented x3 Chest Chest palpation & inspection: normal inspection of the chest Resp Effort & Inspection: normal respiratory effort, able to speak in complete sentences, normal respiratory pattern, no audible wheezes and no cough Cardio Jugular venous distension: no JVD Neuro General: patient oriented x3 Extrem Other: Right Knee: Mild effusion Global, non-specific TTP Assessment & Plan Assessment & Plan (1) Spondylosis of lumbar region without myelopathy or radiculopathy: Code(s): M47.816 - Spondylosis without myelopathy or radiculopathy, lumbar region Category: Medical (2) Disc degeneration, lumbar: Code(s): M51.36 - Other intervertebral disc degeneration, lumbar region Category: Medical (3) Lumbar radiculopathy: Code(s): M54.16 - Radiculopathy, lumbar region Category: Medical (4) Back pain: Code(s): M54.9 - Dorsalgia, unspecified Category: Medical Qualifiers: Back pain location: low back pain Chronicity: chronic Back pain laterality: right Sciatica presence: with sciatica Sciatica laterality: sciatica of right side Qualified Code(s): M54.41 - Lumbago with sciatica, right side; G89.29 - Other chronic pain (5) Sacroiliitis: Code(s): M46.1 - Sacroiliitis, not elsewhere classified Category: Medical (6) Chronic right SI joint pain: Code(s): M53.3 - Sacrococcygeal disorders, not elsewhere classified; G89.29 - Other chronic pain Category: Medical Plan Sapna is longstanding patient of mine who received treatment for right knee arthritis with [employer] spinal cord stimulator. Now she complains on pain in the right thigh and right hip unfortunately diagnostic SI joint injection resulted in no pain improvement. Her CT scan is positive for L5-S1 endplate changes and facet arthropathy. CT myelography was read however it has not instrumental to properly diagnose possible MTX to the L5. She was seen by infection prevention specialist and MRI is recommended. Her spinal cord stimulator has 1 electrode which shows abnormal impedance therefore she can not go for MRI. Need to remove spinal cord stimulator in order to provide appropriate service for the patient. She is scheduled for the removal of spinal cord stimulator on 12/09/2024. She is living for [place] on 12/25/2024. We will remove becky on 12/23/2024. Coding Level of Care Code Est Pt Level 3 (11543) Diagnoses Spondylosis of lumbar region without myelopathy or radiculopathy M47.816 Disc degeneration, lumbar M51.36 Lumbar radiculopathy M54.16 Chronic right-sided low back pain with right-sided sciatica M54.41; G89.29 Back pain location: low back pain Chronicity: chronic Back pain laterality: right Sciatica presence: with sciatica Sciatica laterality: sciatica of right side Sacroiliitis M46.1 Chronic right SI joint pain M53.3; G89.29
[2024-11-28 14:35] VITALS: BP 119/54; PULSE 107; RESP 16; O2SAT 97; BMI 26.3
== END 2024-11-28 14:55 | disposition home or self-care (01) ==
PROVIDERS: PCP Student in an Organized Health Care Education/Training Program; Visit Provider Anesthesiology
DX: M47.816 Spondylosis without myelopathy or radiculopathy, lumbar region (principal); M51.369 Other intervertebral disc degeneration, lumbar region without mention of lumbar back pain or lower extremity pain; M54.16 Radiculopathy, lumbar region; M54.41 Lumbago with sciatica, right side; G89.29 Other chronic pain; M46.1 Sacroiliitis, not elsewhere classified; M53.3 Sacrococcygeal disorders, not elsewhere classified
CPT/HCPCS: 99213

== ENCOUNTER → 2024-11-28 15:39 | Outpatient (BNV) | payer OTHER, SELFPAY | PROVIDERS: PCP Student in an Organized Health Care Education/Training Program; Visit Provider Radiology Diagnostic Radiology | DX: M50.322 Other cervical disc degeneration at C5-C6 level (principal) | CPT/HCPCS: 72040 ==

== ENCOUNTER 2024-12-09 05:57 | Day surgery (SDC) | payer OTHER, SELFPAY ==
--- NOTE | 2024-12-07 14:20 | P.CONAN_ITS ---
Documented by User: July Ivy NP 12/07/24 14:21 HPI - Anesthesia Eval Consult details Narrative: 63yo F for Spinal Cord Stimulation REMOVAL Anesthesia Pre-Procedure Meds Is the patient on any of the following meds?: GLP1/DPP4 PMFSH Active Problems Active Problems: All Active Problems Headache (Acute) Cognitive disorder (Acute) Cervical dystonia (Acute) Spondylosis of lumbar region without myelopathy or radiculopathy (Acute) Chronic right SI joint pain (Acute) Sacroiliitis (Acute) Disc degeneration, lumbar (Acute) Vaginitis (Acute) Lumbar radiculopathy (Acute) Back pain (Acute) Fall (Acute) Abnormal stress ECG (Acute) Chest discomfort (Acute) Duplex kidney (Acute) Acute UTI (Acute) Thumb locking (Acute) Palpitations (Acute) Non-cardiac chest pain (Acute) Failure of spinal cord stimulator (Acute) Chronic cystitis (Acute) Varicose veins of right lower extremity with inflammation (Acute) History of thymectomy (Acute) Pulmonary nodules (Acute) Controlled diabetes mellitus with diabetic polyneuropathy (Acute) De Quervain's tenosynovitis, left (Acute) Patellofemoral arthritis of left knee (Acute) Patellofemoral arthritis of right knee (Acute) Chronic pelvic pain in female (Acute) Dyspareunia in female (Acute) Myofascial pain (Acute) Atrophic vaginitis (Acute) Osteoarthritis of right knee (Acute) CRPS (complex regional pain syndrome type I) (Acute) History of thyroid cancer (Acute) Constipation by delayed colonic transit (Acute) Gastritis (Acute) Hypertension (Acute) Dyslipidemia (Acute) Post-surgical hypothyroidism (Acute) Primary thyroid cancer (Acute) Vitamin D deficiency (Acute) Past Medical History Medical History (Updated 11/28/24 @ 10:33 by Deepthi Velazquez MD) Headache Cognitive disorder Cervical dystonia Palpitations Non-cardiac chest pain Pelvic pain Leg pain Bladder pain Lower abdominal pain Gross hematuria Toe pain Right knee pain Effusion, right knee Dysuria Pelvic pain in female Hematuria Mass of spine Hematuria Type 2 diabetes mellitus with polyneuropathy DM2 (diabetes mellitus, type 2) Nail deformity Paronychia Failure of spinal cord stimulator Thymoma Pulmonary nodules Thyroid cancer Blood in urine Constipation by delayed colonic transit Tubular adenoma of colon Gastritis Hypertension Dyslipidemia Post-surgical hypothyroidism Primary thyroid cancer Vitamin D deficiency Family History Family History Father Stroke Heart attack Mother Diabetes mellitus Family/Other Family history of cancer Sister Stomach cancer Family/Other Thyroid cancer Family history of problems with anesthesia: No Surgical History Surgical History History of thymectomy History of back surgery Hx of colonoscopy Hx of thyroidectomy Hx of hernia repair Hx of section Hx of hysterectomy History of esophagogastroduodenoscopy (EGD) History of Problems with Anesthesia: No Social History Social History Household Members: Spouse, Children and Other Are you a primary critical care cns to a significant other at home: No Do you presently have visiting nurse or other home services: No Alcohol intake: unknown Patient Tobacco Use Status: Former Tobacco user Tobacco use type: Cigarette Second Hand Smoke Exposure: No Have you been hit, kicked, punched, or otherwise hurt by someone within the past year? If so, by whom?: No Are you DNR?: No Advance Directives: No Advance Directives Information Provided: Yes Sexual orientation: Straight/Heterosexual Gender identity: Female Meds Allergies Allergy/AdvReac Type Severity Reaction Status Date / Time Penicillins [PENICILLINS] Allergy Intermediate HIVES Verified 11/28/24 14:38 Home Medications ?Medication ?Instructions ?Recorded ?Confirmed ?Last Taken ?Type albuterol sulfate 90 mcg/actuation 2 puff inhalation Q4-6H PRN 09/05/22 11/28/24 10/20/24 History aerosol inhaler (ProAir HFA) Wheezing metformin 500 mg tablet,extended 500 mg PO BID 11/19/23 11/28/24 Unknown History release 24 hr fluticasone propionate 50 spray intranasal 03/01/24 11/28/24 Unknown History mcg/actuation nasal spray,suspension montelukast 10 mg tablet 10 mg PO DAILY 03/01/24 11/28/24 Unknown History sitagliptin phosphate 100 mg 100 mg PO DAILY 10/19/24 11/28/24 11/30/24 History tablet (Januvia) eneofbtw-ywuycjaik-brngsoknu 3.5 drp otic (ears) 11/03/24 11/28/24 Unknown History mg-10,000 unit/mL-1 % ear drops,susp losartan 100 mg tablet 100 mg PO DAILY 11/28/24 11/28/24 Unknown History Exam Pertinent Lab Results Pertinent Lab Results: Laboratory Tests 11/28/24 15:37 WBC 8.0 Hgb 10.8 L Hct 34.5 L Plt Count 266 Sodium 144 Potassium 4.2 Chloride 106 Carbon Dioxide 24 BUN 29 H Creatinine 0.76 Narrative Narrative: EKG 11/2024 Vent. Rate : 105 BPM Atrial Rate : 105 BPM P-R Int : 154 ms QRS Dur : 074 ms QT Int : 348 ms P-R-T Axes : 059 007 051 degrees QTc Int : 459 ms Sinus tachycardia Possible Left atrial enlargement Inferior infarct (cited on or before 06-MAY-2023) Abnormal ECG When compared with ECG of 29-JUL-2024 12:05, No significant change was found Assessment and Plan Assessment Anesthesia Assessment: Chart Reviewed Final Anesthetic Review Family History of Problems with Anesthesia: No History of Problems with Anesthesia: No Documented by User: Jay Morgan MD 12/09/24 08:42 [facility] Past Medical History Medical History (Updated 11/28/24 @ 10:33 by Deepthi Velazquez MD) Headache Cognitive disorder Cervical dystonia Palpitations Non-cardiac chest pain Pelvic pain Leg pain Bladder pain Lower abdominal pain Gross hematuria Toe pain Right knee pain Effusion, right knee Dysuria Pelvic pain in female Hematuria Mass of spine Hematuria Type 2 diabetes mellitus with polyneuropathy DM2 (diabetes mellitus, type 2) Nail deformity Paronychia Failure of spinal cord stimulator Thymoma Pulmonary nodules Thyroid cancer Blood in urine Constipation by delayed colonic transit Tubular adenoma of colon Gastritis Hypertension Dyslipidemia Post-surgical hypothyroidism Primary thyroid cancer Vitamin D deficiency Family History Family History Father Stroke Heart attack Mother Diabetes mellitus Family/Other Family history of cancer Sister Stomach cancer Family/Other Thyroid cancer Surgical History Surgical History History of thymectomy History of back surgery Hx of colonoscopy Hx of thyroidectomy Hx of hernia repair Hx of section Hx of hysterectomy History of esophagogastroduodenoscopy (EGD) Social History Social History Household Members: Spouse, Children and Other Are you a primary critical care cns to a significant other at home: No Do you presently have visiting nurse or other home services: No Alcohol intake: unknown Patient Tobacco Use Status: Former Tobacco user Tobacco use type: Cigarette Second Hand Smoke Exposure: No Have you been hit, kicked, punched, or otherwise hurt by someone within the past year? If so, by whom?: No Are you DNR?: No Advance Directives: No Advance Directives Information Provided: Yes Sexual orientation: Straight/Heterosexual Gender identity: Female Meds Allergies Allergy/AdvReac Type Severity Reaction Status Date / Time Penicillins [PENICILLINS] Allergy Intermediate HIVES Verified 11/28/24 14:38 Home Medications ?Medication ?Instructions ?Recorded ?Confirmed ?Last Taken ?Type albuterol sulfate 90 mcg/actuation 2 puff inhalation Q4-6H PRN 09/05/22 11/28/24 10/20/24 History aerosol inhaler (ProAir HFA) Wheezing metformin 500 mg tablet,extended 500 mg PO BID 11/19/23 11/28/24 Unknown History release 24 hr fluticasone propionate 50 spray intranasal 03/01/24 11/28/24 Unknown History mcg/actuation nasal spray,suspension montelukast 10 mg tablet 10 mg PO DAILY 03/01/24 11/28/24 Unknown History sitagliptin phosphate 100 mg 100 mg PO DAILY 10/19/24 11/28/24 11/30/24 History tablet (Januvia) wkuffgnw-xqnpktilf-kciutvuvq 3.5 drp otic (ears) 11/03/24 11/28/24 Unknown History mg-10,000 unit/mL-1 % ear drops,susp losartan 100 mg tablet 100 mg PO DAILY 11/28/24 11/28/24 Unknown History Exam Airway Mallampati Class: II TM Dist: <=3cm Neck ROM: Full Loose/Missing/Broken Teeth: Yes, Upper and Lower Heart: ok. see above. Lungs: ok Assessment and Plan Assessment Anesthesia Assessment: Anesthesia Plan Discussed Final Anesthetic Review NPO: Yes ASA Class: III Final Preanesthetic Review: No Changes in Pt Med Stat, Meds/Allgs Chart Reviewed, Consent Obtained/Reviewed and Anes Risks/Benef Reviewed Patient Risk: Intermediate Procedure Risk: Intermediate Anesthetic Plan Anesthetic Plan: GA and Agree w/ Assess. and Plan Disposition: Standard PACU
[2024-12-09] VITALS (10 sets, daily range): BP systolic 128–159; BP diastolic 61–99; PULSE 89–99; RESP 14–18; TEMP 36.1–37.1; O2SAT 97–98; BMI 26.3
--- NOTE | ~2024-12-09 | FL_ITS ---
EXAMINATION: FL GUIDANCE ONLY HISTORY: stim removal COMPARISON: None available. TECHNIQUE: Fluoroscopy time: 3.3 seconds. Cumulative Dose: 0.624 mGy. DAP: 0.271 uGy-m2 (microgray-meter squared). Images: 1. FINDINGS: A single fluoroscopic spot film of the pelvis demonstrates a stimulator with the battery pack overlying the iliac wing. FL/FL guidance in OR IMPRESSION: Fluoroscopy during procedure. Please see procedure report for additional information. Electronically signed by: Milton Duckworth MD 12/09/2024 02:22 PM LEONEL BELLO
--- OUTSIDE RECORDS SUMMARY | 2024-12-09 05:59 | XMS_ITS | Encounter Summary ---
Author Organization [employer] Address [address] [place] [id number] Care Team Providers Care Head Greenskeeper Name Role Phone Yi Thompson MD Primary Care Pro vider Reason for Visit * Reason Onset Date Comments Results 11/30/2024 Encounter Details Date Type Department Care Team ([facility] Contact Info) Description 11/30/2024 Telephone [facility] MEDICINE [address] [place] [address] Kaitlynn Allison RN Results Social History Tobacco Use Types Packs/Day Years Used Date Smoking Tobacco: Never Smokeless Tobacco: Never Alcohol Use Standard Drinks/Week Comments Never 0 (1 standard drink = 0.6 oz pur e alcohol) Alcohol Answer Date Recorded Frequency of Alcohol Consumption Not on file 04/26/2024 Average Number of Drinks Not on file 024 Frequency of Binge Drinking Not on file 04/16 Score 0 04/26/2024 Depression Answer Date Recorded Patient Health Questionnaire-9 Score 1 01/13/2024 Patient Health Questionnaire-9 Score 1 01/13/2024 Last PHQ-9: Questionnaire Data Not on file 0 01/13/2024 Housing Stability Answer Date Recorded What is your housing situation today? I have radha christiano 04/13/[address] you li ve. Do you have problems with any of the following? None of the above 04/13/2024 Food Insecurity Answer Date Recorded Within the past 12 months, y ou worried that your food would run out before you got money to buy more: Never True 08/31/2023 Within the past 12 months,th e food you bought just didn't last and you didn't have enough money to get more: Never True Transportation Answer Date Recorded In the past 12 months, has l ack of transportation kept you from medical appts, meetings, work or from getting things needed for daily living? No 04/13/2024 Utilities Answer Date Recorded In the past 12 months, has t he electric, gas, oil or water company threatened to shut off services in your home? No 08/31/2023 Depression Answer Date Recorded Patient Health Questionnaire-2 Score 0 01/13/2024 Comments No Sex and Gender Information Value Date Recorded Sex Assigned at Female 09/15/2022 10:25 AM EDT Legal Sex Female 10:25 AM EDT Gender Identity Female 09/15/2022 10:25 AM EDT Sexual Orientation Straight 09/15/2022 10 :25 AM EDT documented as of this encounter Miscellaneous Notes * Addendum Note - ALYSIA Valdes - 12/01/2024 4:43 PM ESTAddended by: KAYLA RUFFIN on: 12/01/2024 04:43 PM Modules accepted: Orders * Telephone Encounter - Kaitlynn Allison RN - 11/30/2024 9:39 AM EST Telephone call to pt using [employer] computer video game designer #[id number]. Advised pt that another doctor ordered labs recently that showed decrease in hemoglobin and that covering provider for Dr Shaver recommends checking hemoglobin levels again in 4- 6 weeks (mid to late December) Advised pt that she can go to [facility] lab or [facility] lab, pt stated she will go to [facility] lab. No further questions at this time. * Telephone Encounter - Kaitlynn Allison RN - 11/30/2024 9:31 AM EST ----- Message from Kayla Ruffin sent at 11/29/2024 5:26 PM EST ----- Unclear which specialist ordered these most recent labs however given decrease in hemoglobin from baseline recommend repeat CBC in 4 to 6 weeks to ensure stability. Please let patient know to get repeat CBC in 4 to 6 weeks. Thanks - will need to order tomorrow, order function is not working correctly right now. documented in this encounter Plan of Treatment Upcoming Encounters Date Type Department Care Team (Late st Contact Info) Description 03/31/2025 9:30 AM EDT Medication Management [facility] MED[facility] [address] [place] [address] Scheduled Orders Name Type Priority Associated Diagnoses Orde r Schedule CBC auto differential Lab Routine Abnormal CBC Expected: 12/01/2024 (Approximate), Expires: 12/01/2025 documented as of this encounter Goals Goal Patient Goal Type Associated Problems Recent Progress Patient-Stated? Author Blood Pressure < 140/90 Blood Pressure 131/77(2023 8:44 AM EST) No Jn Shah Hemoglobin A1c < 7 Result Component 6.8( 8:59 AM EST) No Jn Shah documented as of this encounter Visit Diagnoses Diagnosis Abnormal CBC- Primary Other abnormal blood chemistry documented in this encounter Additional Health Concerns Assessment Noted Time PHQ-9 Depression Total Score: 1 01/13/20 24 12:16 PM EST documented as of this encounter Care Teams Head Greenskeeper Relationship Specialty Start Date End Date Yi Thompson MD [address] [place] [address] PCP - General Internal Medicine 08/20/23 documented as of this encounter
--- OUTSIDE RECORDS SUMMARY | 2024-12-09 05:59 | XMS_ITS | Encounter Summary ---
Author Organization [facility] Address [address] [place] [id number] Care Team Providers Care Skiver Welt End Name Role Phone Juliet Bird [facility] Primary Care Provider [phone] Yi Thompson MD Primary Care Pro vider Reason for Visit * Reason Comments Med Refill Encounter Details Date Type Department Care Team (Late Contact Info) Description 01/28/2023 Refill [facility] MEDICINE [address] [place] [address] [facility] [address] [place], [place] [id number] Primary hypertension Social History Tobacco Use Types Packs/Day Years Used Date Smoking Tobacco: Never Smokeless Tobacco: Never Alcohol Use Standard Drinks/Week Comments Never 0 (1 standard drink = 0.6 oz pur e alcohol) Comments Unknown Sex and Gender Information Value Date Recorded Sex Assigned at Female 09/15/2022 10:25 AM EDT Legal Sex Female 10:25 AM EDT Gender Identity Female 09/15/2022 10:25 AM EDT Sexual Orientation Straight 09/15/2022 10 :25 AM EDT documented as of this encounter Plan of Treatment Upcoming Encounters Date Type Department Care Team (Late Contact Info) Description 03/31/2025 9:30 AM EDT Medication Management [facility] MED[facility] [address] [place] [address] documented as of this encounter Visit Diagnoses Diagnosis Primary hypertension Unspecified essential hypertension documented in this encounter Care Teams Skiver Welt End Relationship Specialty Start Date End Date Juliet Bird FNP PCP - General Family Medicine 01/22/23 08/19/23 Yi Thompson MD [address] [place] [id number] PCP - General Internal Medicine 08/20/23 documented as of this encounter
--- OUTSIDE RECORDS SUMMARY | 2024-12-09 05:59 | XMS_ITS | Data Portability ---
Author Organization [place] - [facility], Allergy Address [address] [address] Assessment No assessment recorded. Plan of Treatment Reminders Order Date Submit Date Provider Last Modified By Organization Details Last Modified Time Details Appointments None record ed. Lab None record ed. Referral None record ed. Procedures None record ed. Surgeries None record ed. Imaging None record ed. Medication Orders None record ed. Patient TargetsNo targets recorded. Patient InstructionsNo instructions recorded. Reason for Referral None Reported. Results Created Date Observation Date Name Description Value Unit Range Abnormal Flag Note LastModifiedBy Organization Detail LastModifiedTime 07/12/20 24 03/07/2024 CT, neck, soft tissu e, w/ contr ast No observ ation record ed. [facility] Radiology ([facility]) [address] [address], [place], [address], 07/12/2024 17:28:21 07/12/20 24 03/07/2024 CT, neck, soft tissu e, w/ contr ast No observ ation record ed. [email or web address] Not Available 06/17 14:31:41 Result Notes None recorded. 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 Other diseases of upper respirator y tract: Paralysis of vocal cords or larynx; Note: Date Diagnosed: 04/16/2015 2:02 PM (478.3) Not Available [employer] 4 03:27:19 Difficult y speaking Active 2014 Hoarseness ; Note: Date Diagnosed: 06/22/2015 3:56 PM (784.49) Not Available [facility] 4 03:27:19 Oropharyn geal dysphagia 43773521 Active 2023 CHANTEL MEYER MD [address] [facility],[address] [address], [facility] [place] [place], [address] , [facility] - [facility] 4 14:16:46 Acquired vocal cord palsy 484229437 Active 2023 CHANTEL MEYER MD [address] [facility],[address] [place] [address], [place], [address] , [facility] - [facility] [place] 4 14:27:26 Problem Notes None recorded. Procedures Surgical History Date Name Laterality Status Provider Name and Address Organization Details Recorded Time 07/12/2024 FFL_RE completed CHANTEL MEYER MD [address] [facility],[address] [address], [place], [address], [facility] 07/12/2024 14:20:56 Imaging Results Imaging Date Name Status LastModified by Organiz ation Details LastModified Time 03/07/2024 CT, neck, soft tissue, w/ contrast completed [facility] Radiology ([facility]) [address] [facility] [address], [place], [address], 07/12/2024 17:28:21 03/07/2024 CT, neck, soft tissue, w/ contrast completed [email or web address] Information not available 07/12/2024 14:31:41 Procedure Notes None recorded. Medical Equipment None Reported. Allergies Allergen ID Allergen Name Allergen Category Reaction Reaction Severity Criticality Documentation Date Start Date Code Code System Note Provider Name and Address Organization Details Recorded Time 50493 Product containin g penicilli n and antibioti c (product) medicatio n other Not available Not available 03/29/2024 83120 05 SNOMED React ion: unkno wn, unspe cifie d;; Not Available [facility] 01:03:20 Medications Name Sig Start Date Stop Date Status Note LastModified by Organization Details LastModified Time medbox status USE DIRECTED active Not Available Not Available No t Available freestyle lite test strips strp active Not Available Not Available Not Available losartan 50 mg tablet active Medicati on ID: [id number] Br and Name: losartan Send Method: E-Prescr ibed Sub s Allowed: subs OK Medic ationGen ericName : losartan Not Available Not Available Not Available nitrofura ntoin macrocrys ryan 50 mg capsule TAKE 1 CAPSULE BY MOUTH USE DIRECTED POST INTERCOU RSE MUST ADMINIST ER WITH A MEAL/SALOMÓN D active Not Available Not Available No t Available cetirizin e 10 mg tablet TAKE 1 TABLET BY MOUTH EVERY DAY IN THE MORNING active Not Available Not Available No t Available oxybutyni n chloride ER 10 mg tablet,ex tended release 24 hr TAKE 1 TABLET BY MOUTH EVERYDAY AT NOON active Not Available Not Available No t Available fosfomyci n trometham ine 3 gram oral packet MIX 1 PACKET AND DRINK EVERY OTHER DAY FOR 3 DOSES active Not Available Not Available No t Available metoprolo l succinate ER 50 mg tablet,ex tended release 24 hr TAKE 1 TABLET BY MOUTH EVERY DAY IN THE MORNING active Not Available Not Available No t Available senna 8.6 mg tablet TAKE 2 TABLETS BY MOUTH EVERY DAY AT BEDTIME active Not Available Not Available No t Available phenazopy ridine 200 mg tablet TAKE 1 TABLET BY MOUTH TWICE DAILY FOR 5 DAYS active Not Available Not Available No t Available prednison e 20 mg tablet TAKE 2 TABLETS BY MOUTH IN THE MORNING FOR 5 DAYS active Not Available Not Available No t Available lovastati n 40 mg tablet active Medicati on ID: [id number] Br and Name: lovastat in Send Method: E-Prescr ibed Sub s Allowed: subs OK Medic ationGen ericName : lovastat in Not Available Not Available Not Available amlodipin e 5 mg tablet active Medicati on ID: [id number] Br and Name: amlodipi ne Send Method: E-Prescr ibed Sub s Allowed: subs OK Medic ationGen ericName : amlodipi ne Not Available Not Available Not Available sulfameth oxazole 800 mg-trimet hoprim 160 mg tablet TAKE 1 TABLET BY MOUTH TWICE DAILY FOR 5 DAYS active Not Available Not Available No t Available acetamino phen 500 mg tablet TAKE 1 TABLET (500 MG) BY MOUTH EVERY 6 (SIX) HOURS IF NEEDED FOR MILD PAIN. 07/12 completed Not Available Not Available Not Available acetamino phen ER 650 mg tablet,ex tended release TAKE 1 TABLET (650 MG) BY MOUTH EVERY 8 (EIGHT) HOURS IF NEEDED FOR MODERATE PAIN. active Not Available Not Available No t Available levothyro xine 100 mcg tablet TAKE 1 TABLET BY MOUTH EVERY DAY active Not Available Not Available No t Available [place] Thyroid 15 mg tablet active Medicati on ID: [id number] Br and Name: [place] Thyroid Send Method: E-Prescr ibed Sub s Allowed: subs OK Medic ationGen ericName : [place] Thyroid Not Available Not Available Not Available amitripty line 25 mg tablet active Medicati on ID: [id number] Br and Name: amitript yline Se nd Method: E-Prescr ibed Sub s Allowed: subs OK Medic ationGen ericName : amitript yline Not Available Not Available Not Available Protonix 40 mg intraveno us solution active Medicati on ID: [id number] Br and Name: Protonix Send Method: E-Prescr ibed Sub s Allowed: subs OK Medic ationGen ericName : Protonix Not Available Not Available Not Available amitripty line 10 mg tablet TAKE 1 TABLET BY MOUTH EVERYDAY AT BEDTIME FOR 10 DAYS active Not Available Not Available No t Available benzonata te 100 mg capsule PLEASE SEE ATTACHED FOR DETAILED DIRECTIO NS active Not Available Not Available No t Available cephalexi n 500 mg capsule TAKE 1 CAPSULE BY MOUTH 4 TIMES DAILY FOR 5 DAYS. active Not Available Not Available No t Available pantopraz ole 40 mg tablet,de layed release TAKE 1 TABLET BY MOUTH EVERY MORNING 30 MINUTES BEFORE BREAKFAS T active Not Available Not Available No t Available levothyro xine 125 mcg tablet TAKE 1 TABLET BY MOUTH EVERY DAY active Not Available Not Available No t Available triamcino lone acetonide 0.1 % topical ointment APPLY TOPICALL Y 2 TIMES DAILY. FOR 7 DAYS IN RIGHT ANKLE active Not Available Not Available No t Available Citrucel 500 mg tablet TAKE 1 TABLET BY MOUTH EVERYDAY AT NOON WITH A FULL GLASS OF WATER active Not Available Not Available No t Available docusate sodium 100 mg capsule TAKE 1 CAPSULE BY MOUTH TWICE A DAY active Not Available Not Available No t Available gabapenti n 300 mg capsule TAKE 1 CAPSULE BY MOUTH THREE TIMES DAILY IN THE MORNING, EVENING, AND BEDTIME active Not Available Not Available No t Available monteluka st 10 mg tablet TAKE 1 TABLET BY MOUTH EVERYDAY AT NOON active Not Available Not Available No t Available bisacodyl 5 mg tablet,de layed release TAKE 4 TABLETS BY MOUTH ONCE AT NOON el DAY BEFORE THE colonsco py active Not Available Not Available No t Available ranitidin e 150 mg capsule active Medicati on ID: [id number] Br and Name: ranitidi ne HCl Send Method: E-Prescr ibed Sub s Allowed: subs OK Medic ationGen ericName : ranitidi ne HCl Not Available Not Available Not Available hydrochlo rothiazid e 25 mg tablet active Medicati on ID: [id number] Br and Name: hydrochl orothiaz ro Send Method: E-Prescr ibed Sub s Allowed: subs OK Medic ationGen ericName : hydrochl orothiaz ro Not Available Not Available Not Available gabapenti n 100 mg capsule TAKE 1 CAPSULE BY MOUTH AT BEDTIME. AFTER 1 WEEK, MAY INCREASE TO 2 CAPSULES AT BEDTIME IF SYMPTOMS CONTINUE . active Not Available Not Available No t Available Cranberry Concentra te 500 mg capsule TAKE 1 CAPSULE BY MOUTH TWICE DAILY WITH FOOD active Not Available Not Available No t Available ibuprofen 600 mg tablet TAKE 1 TABLET (600 MG) BY MOUTH EVERY 8 (EIGHT) HOURS IF NEEDED FOR MILD PAIN. active Not Available Not Available No t Available cefuroxim e axetil 500 mg tablet TAKE 1 TABLET (500 MG) BY MOUTH 2 TIMES DAILY FOR 10 DAYS. active Not Available Not Available No t Available polyethyl eliel glycol 3350 17 gram/dose oral powder USE DIRECTED BY [facility] active Not Available Not Available No t Available estradiol 0.01% (0.1 mg/gram) vaginal cream INSERT 1 GRAM VAGINALL Y ONCE DAILY FOR 14 DAYS THEN DECREASE TO TWICE A WEEK active Not Available Not Available No t Available albuterol sulfate HFA 90 mcg/actua tion aerosol inhaler INHALE 2 PUFFS EVERY 6 HOURS IF NEEDED FOR WHEEZING . active Not Available Not Available No t Available fluticaso ne propionat e 50 mcg/actua tion nasal spray,terrie pension PLEASE SEE ATTACHED FOR DETAILED DIRECTIO NS active Not Available Not Available No t Available metformin ER 500 mg tablet,ex tended release 24 hr TAKE 1 TABLET BY MOUTH TWICE DAILY AT NOON AND IN THE EVENING WITH MEALS. DO NOT BREAK, CRUSH, DISSOLVE OR CHEW active Not Available Not Available No t Available clotrimaz ole 1 % topical cream APPLY TOPICALL Y TO THE AFFECTED AREA(S) TWICE DAILY FOR 17 DAYS active Not Available Not Available No t Available doxycycli ne hyclate 100 mg tablet TAKE 1 TAB BY MOUTH 2 TIMES DAILY X 7DAYS WITH FULL GLASS OF WATER DO NOT LIE DOWN AT LEAST 30MINS active Not Available Not Available No t Available levothyro xine 112 mcg tablet TAKE 1 TABLET BY MOUTH EVERY MORNING active Not Available Not Available No t Available neomycin- polymyxin -hydrocor t 3.5 mg-10,000 unit/mL-1 % ear drops,terrie p INSTILL 3 TO 4 DROPS INTO AFFECTED EAR(S) 4 TIMES DAILY FOR 10 DAYS active Not Available Not Available No t Available Pain Reliever Plus 250 mg-250 mg-65 mg tablet TAKE 1 TABLET BY MOUTH EVERY 6 HOURS NEEDED FOR HEADACHE active Not Available Not Available No t Available cyclobenz aprine 5 mg tablet active Not Available Not Available No t Available rosuvasta tin 10 mg tablet TAKE 1 TABLET BY MOUTH EVERY DAY IN THE MORNING active Not Available Not Available No t Available rosuvasta tin 40 mg tablet TAKE 1 TABLET BY MOUTH EVERYDAY AT NOON active Not Available Not Available No t Available Alcohol Prep Pads USE TWICE DAILY active Not Available Not Available No t Available metformin ER 1,000 mg tablet,ex tended release 24hr (osmotic) active Medicati on ID: [id number] Br and Name: metformi n Send Method: E-Prescr ibed Sub s Allowed: subs OK Medic ationGen ericName : metformi n Not Available Not Available Not Available nitrofura ntoin monohydra te/macroc rystals 100 mg capsule active Not Available Not Available Not Available losartan 100 mg-hydroc hlorothia zide 12.5 mg tablet TAKE 1 TABLET BY MOUTH EVERYDAY AT NOON active Not Available Not Available No t Available Januvia 50 mg tablet TAKE 1 TABLET BY MOUTH EVERYDAY AT NOON active Not Available Not Available No t Available Januvia 100 mg tablet TAKE 1 TABLET BY MOUTH ONCE DAILY active Not Available Not Available No t Available hydrochlo rothiazid e 12.5 mg tablet TAKE 1 TABLET BY MOUTH EVERY DAY active Not Available Not Available No t Available FreeStyle Lite Strips USE DIRECTED TO TEST BLOOD SUGAR FOUR TIMES DAILY active Not Available Not Available No t Available omeprazol e 20 mg tablet,de layed release active Medicati on ID: [id number] Du ration Value: 30 Brand Name: omeprazo le Send Method: E-Prescr ibed Sub s Allowed: subs OK Speci al Instruct ion: Take 1 tablet by mouth every day before a meal Med icationG enericNa me: omeprazo le Not Available Not Available Not Available TRUEplus Lancets 33 gauge TEST BLOOD SUGAR FOUR TIMES DAILY active Not Available Not Available No t Available Linzess 145 mcg capsule TAKE 1 CAPSULE (145 MCG) BY MOUTH BEFORE BREAKFAS T. DO NOT CRUSH OR CHEW. active Not Available Not Available No t Available Linzess 290 mcg capsule TAKE 1 CAPSULE BY MOUTH EVERY DAY IN THE MORNING active Not Available Not Available No t Available Jardiance 25 mg tablet TAKE 1 TABLET BY MOUTH EVERYDAY AT NOON active Not Available Not Available No t Available Uro-MP 118 mg-10 mg-40.8 mg-36 mg capsule TAKE 1 CAPSULE ORALLY 3 TIMES A DAY FOR 90 DAYS ADMINIST ER WITH PLENTY OF FLUIDS active Not Available Not Available No t Available Vitals Date Recorded Body height Body mass index (BMI) Body weight Provider Name and Address Organization Details Last Updated DateTime 07/12/2024 165.1 cm 27.3 kg/m2 74295.15 g [place] - [facility] 07/12/2024 14:07:22 Social History None recorded. Functional Status None recorded. Mental Status None recorded. Family History Nothing Reported. Medical History No medical history recorded. Gynecological HistoryNo gynecological history recorded. Obstetrics History GPAL:G 0 P 0 0 0 0 Past Encounters Encounter ID Performer Location Encounter Start Date Encounter Closed Date Diagnosis/Indication Diagnosis SNOMED-CT Code Diagnosis ICD10 Code Diagnosis Note [id number] CHANTEL MEYER MD [facility] [address] [address] 07/12/2024 13:49:31 07/12/2024 16:53:30 Oropharyngeal dysphagia 35716605 R13.12 Likely due to esophageal dysmotilit y. VC paralysis is a factor but doesn't explain her dysphagia to solids. I recommend she discuss GI referral with her PCP. I would be glad to see her as needed. I personally reviewed her imaging reports. Acquired v ocal cord palsy 462795869 J38.00 Likely from initial surgery 14 years ago (She says she had a breathy voice which recovered) . Minimal gap. Voice serviceabl e. This may impact rare aspiration events but she reports this happens seldom. Health Concerns Section Related Observation LastModified by Organization Detai ls LastModified Time None Recorded Concern Status LastModified by Organization Details LastModified Time None Recorded Advance Directives Directive None Recorded Payers Encounter Date Sequence Insurance Name Policy Number Policy Fung Covered Member ID Fung Member ID Guarantor Name 07/12/2024 1 [employer] [id number] Giuseppe Rodriguez [id number] Sapna Garcia Notes Date Note Type Note Provider Name and Address Organization Details Recorded Time 07/12/2024 text/html She has a histor y of thyroid cancer. She had thyroidectomy in [place] 14 years ago. She had repeat surgery here 5-6 years ago. She reports her swallowing has been a problem since her first surgery. She had a swallow study at [facility]. She feels like food gets stuck. Has occasional choking with liquids. She has never smoked. She denies throat pain and SOB. I reviewed an Upper GI series which showed esophageal dysmotility. I also reviewed her CT neck with 02/2024 which showed possible right vocal cord paralysis. contrast CHANTEL MEYER MD [address] [place] [address], [place], [address], [facility] - [facility] 07/12/2024 14:28:36 OBGyn Episode No OBEpisode recorded.
--- OUTSIDE RECORDS SUMMARY | 2024-12-09 05:59 | XMS_ITS | Encounter Summary ---
Author Organization [email or web address] Address [address] [place] [address] Care Team Providers Care Mixing Roll Operator Name Role Phone Yi Thompson MD Primary Care Pro vider Reason for Visit * Reason Comments Med Refill Encounter Details Date Type Department Care Team ([facility] st Contact Info) Description 05/20/2024 Refill [facility] [address] [place] [address] Name, MD Ronny [address] [place] [address] Social History Tobacco Use Types Packs/Day Years [...] your housing situation today? I have radha alvarado 04/13/[address] you li [...] 03/31/2025 9:30 AM EDT Medication Management [facility] [address] [place] [address] documented as of this encounter Goals Goal Patient Goal Type Associated Problems Recent Progress Patient-Stated? Author Blood Pressure < 140/90 Blood Pressure 131/77(2023 8:44 AM EST) No Jn Shah Hemoglobin A1c < 7 Result Component 6.8( 8:59 AM EST) No Jn Shah documented as of this encounter Visit Diagnoses Not on filedocumented in this encounter Additional Health Concerns Assessment Noted Time PHQ-9 Depression Total Score: 1 01/13/20 24 12:16 PM EST documented as of this encounter Care Teams Mixing Roll Operator Relationship Specialty Start Date End Date Yi Thompson MD [address] [place] [address] PCP - General Internal Medicine 08/20/23 documented as of this encounter
--- OUTSIDE RECORDS SUMMARY | 2024-12-09 05:59 | XMS_ITS | Encounter Summary ---
Author Organization [employer] Address [address] [place] [address] Care Team Providers Care Window Dresser Name Role Phone Yi Thompson MD Primary Care Pro vider Reason for Visit * Reason Comments Med Refill Encounter Details Date Type Department Care Team (Late st Contact Info) Description 09/12/2024 Refill [facility] [address] [place] [address] Yi Thompson MD [address] [place] [address] Type 2 diabetes mellitus without complication, without long-term current use of insulin ([facility]) Social History Tobacco Use Types Packs/Day Years [...] Description 03/31/2025 9:30 AM EDT Medication Management [facility] [address] [place] [address] documented as of this encounter Goals Goal Patient Goal Type Associated Problems Recent Progress Patient-Stated? Author Blood Pressure < 140/90 Blood Pressure 131/77(2023 8:44 AM EST) No Jn Shah Hemoglobin A1c < 7 Result Component 6.8( 8:59 AM EST) No Jn Shah documented as of this encounter Visit Diagnoses Diagnosis Type 2 diabetes mellitus without complication, without long-term current use of insulin ([facility]) documented in this encounter Additional Health Concerns Assessment Noted Time PHQ-9 Depression Total Score: 1 01/13/20 24 12:16 PM EST documented as of this encounter Care Teams Window Dresser Relationship Specialty Start Date End Date Yi Thompson MD [address] [place] [address] PCP - General Internal Medicine 08/20/23 documented as of this encounter
--- OUTSIDE RECORDS SUMMARY | 2024-12-09 05:59 | XMS_ITS | Encounter Summary ---
Author Organization [employer] [facility] Address [address] [place] [address] Care Team Providers Care Hand Developer Name Role Phone Juliet Bird Primary Care Provider [phone] Yi Thompson MD Primary Care Pro vider Reason for Visit * Reason Comments Med Refill Encounter Details Date Type Department Care Team (Late Contact Info) Description 06/28/2023 Refill [facility] [address] [place] [id number] Juliet Bird FNP [address] [place] [address] Dept [place] [address] Social History Tobacco Use Types Packs/Day Years [...] Description 03/31/2025 9:30 AM EDT Medication Management [facility] [address] [place] [address] documented as of this encounter Visit Diagnoses Not on filedocumented in this encounter Care Teams Hand Developer Relationship Specialty Start Date End Date Juliet Bird FNP PCP - General Family Medicine 01/22/23 08/19/23 Yi Thompson MD [address] [place] [address] PCP - General Internal Medicine 08/20/23 documented as of this encounter
--- OUTSIDE RECORDS SUMMARY | 2024-12-09 05:59 | XMS_ITS | Encounter Summary ---
Author Organization [employer] Address [address] [place] [address] Care Team Providers Care Artificial Snow Making Machine Operator Name Role Phone Yi Thompson MD Primary Care Pro vider Reason for Visit * Reason Comments Med Refill Encounter Details Date Type Department Care Team (Late st Contact Info) Description 05/03/2024 Refill [facility] [address] [place] [address] Yi Thompson MD [address] [place] [address] Social History Tobacco Use Types Packs/Day Years [...] Description 03/31/2025 9:30 AM EDT Medication Management [facility] [address] [place] [address] documented as of this encounter Goals Goal [...] documented as of this encounter Care Teams Artificial Snow Making Machine Operator Relationship Specialty Start Date End Date Yi Thompson MD [address] [place] [address] PCP - General Internal Medicine 08/20/23 documented as of this encounter
--- OUTSIDE RECORDS SUMMARY | 2024-12-09 05:59 | XMS_ITS | Encounter Summary ---
Author Organization [employer] Address [address] [place] [id number] Care Team Providers Care Circular Shear Operator Name Role Phone Yi Thompson MD Primary Care Pro vider Reason for Visit * Reason Onset Date Comments Nurse Triage 02/15/2024 Encounter Details Date Type Department Care Team ([facility] st Contact Info) Description 02/15/2024 Telephone [facility] [address] [place] [address] Yi Thompson MD [address] [place] [address] Nurse Triage Social History Tobacco Use Types Packs/Day Years Used Date Smoking Tobacco: Never Smokeless Tobacco: Never Alcohol Use Standard Drinks/Week Comments Never 0 (1 standard drink = 0.6 oz pur e alcohol) Depression Answer Date Recorded Patient Health Questionnaire-9 Score 1 01/13/2024 Patient Health Questionnaire-9 Score 1 01/13/2024 Last PHQ-9: Questionnaire Data Not on file 0 01/13/2024 Housing Stability Answer Date Recorded What is your housing situation today? I have radhawesly alvarado 08/31/[address] you li ve. Do you have problems with any of the following? None of the above 08/31/2023 Food Insecurity Answer Date Recorded Within the [...] from getting things needed for daily living? Yes, it has kept me from non-medical meetings, work, or getting things that I need 11/24/2023 Utilities Answer Date Recorded In the past [...] as of this encounter Miscellaneous Notes * Telephone Encounter - Mercedes Samuel RN - 02/15/2024 12:44 PM EDT Triage call with [place] [employer] [place] [id number] Pt reports headache frontal and back of head for 3 weeks now. Pt reports a tingling feeling all over the head. Pt denies difficulty waking up, confusion, weakness, neg for falls, vision poor waiting to obtain new glasses. Neg for fever and vomiting. Pt has taken tylenol/motrin without effect. Pt reports drinking adequate liquids. Pt reports having a special needs child and doesn't come home till 400pm. Pt is advised to come to [facility] which is open till 8pm this evening. No apts available in [place]. Pt agrees with disposition and home care reviewed. Insurance is verified as active. Protocol Used: Headache (Adult) Protocol-Based Disposition: See in Office or Video Visit Today or Tomorrow Video visit not offered Positive Triage Question: * Unexplained headache that is present > 24 hours * All higher-acuity triage questions were negative Care Advice Discussed: * Reassurance and Education - Muscle Tension Headache * Pain Medicines * Pain Medicines - Extra Notes and Warnings * Pain Medicine for Migraine * Rest for Headache * Cold Pack for Headache * Stretching * Reasons To Call Back - Severe headache persists over 2 hours after pain medicine - Headache lasts over 24 hours despite using a pain medicine * Telephone Encounter - Natali Rodriguezo - 02/15/2024 11:47 AM EDT Symptom: Headache Outcome: Transfer to a nurse or provider NOW! Reason: Sudden worst headache of life now Tingling sensation The caller accepted this outcome Polish speaker documented in this encounter Plan of Treatment Upcoming Encounters Date Type Department Care Team (Late st Contact Info) Description 03/31/2025 9:30 AM EDT Medication Management [facility] [address] [place] [address] documented as of this encounter Visit Diagnoses Not on filedocumented in this encounter Additional Health Concerns Assessment Noted Time PHQ-9 Depression Total Score: 1 01/13/20 24 12:16 PM EST documented as of this encounter Care Teams Circular Shear Operator Relationship Specialty Start Date End Date Yi Thompson MD [address] [place] [id number] PCP - General Internal Medicine 08/20/23 documented as of this encounter
--- OUTSIDE RECORDS SUMMARY | 2024-12-09 05:59 | XMS_ITS | Encounter Summary ---
Author Organization [employer] Address [address] [place] [address] Care Team Providers Care Complex Care Nurse Practitioner Name Role Phone Yi Thompson MD Primary Care Pro vider Reason for Visit * Reason Comments Med Refill Encounter Details Date Type Department Care Team (Late st Contact Info) Description 12/08/2024 Refill [facility] [address] [place] [address] Yi Thompson MD [address] [place] [address] Type 2 diabetes mellitus without complication, without long-term current use of insulin ([facility]) Social History Tobacco Use Types Packs/Day Years [...] 9:30 AM EDT Medication Management [facility] [address] [place] [address] documented as of this encounter Goals Goal Patient Goal Type Associated Problems Recent Progress Patient-Stated? Author Blood Pressure < 140/90 Blood Pressure 131/77(2023 8:44 AM EST) No Jn Shah Hemoglobin A1c < 7 Result Component 6.8( 8:59 AM EST) No Jn Shah documented as of this encounter Visit Diagnoses Diagnosis Type 2 diabetes mellitus without complication, without long-term current use of insulin ([facility]) documented in this encounter Additional Health Concerns Assessment Noted Time PHQ-9 Depression Total Score: 1 01/13/20 24 12:16 PM EST documented as of this encounter Care Teams Complex Care Nurse Practitioner Relationship Specialty Start Date End Date Yi Thompson MD [address] [place] [address] PCP - General Internal Medicine 08/20/23 documented as of this encounter
--- OUTSIDE RECORDS SUMMARY | 2024-12-09 05:59 | XMS_ITS | Encounter Summary ---
Author Organization [employer] Address [address] [place] [address] Care Team Providers Care Forepart Laster Name Role Phone Yi Thompson MD Primary Care Pro vider Reason for Visit * Reason Comments Med Refill Encounter Details Date Type Department Care Team ([facility] st Contact Info) Description 11/29/2024 Refill [facility] [address] [place] [address] Yi Thompson MD [address] [place] [address] Social History Tobacco Use Types Packs/Day Years [...] Description 03/31/2025 9:30 AM EDT Medication Management [facility] [address] [place] [address] documented as of this encounter Goals Goal Patient Goal Type Associated Problems Recent Progress Patient-Stated? Author Blood Pressure < 140/90 Blood Pressure 131/77(2023 8:44 AM EST) Jn Petit Hemoglobin A1c < 7 Result Component 6.8( 8:59 AM EST) No Jn Shah documented as of this encounter Visit Diagnoses Not on filedocumented in this encounter Additional Health Concerns Assessment Noted Time PHQ-9 Depression Total Score: 1 01/13/20 24 12:16 PM EST documented as of this encounter Care Teams Forepart Laster Relationship Specialty Start Date End Date Yi Thompson MD [address] [place] [address] PCP - General Internal Medicine 08/20/23 documented as of this encounter
--- OUTSIDE RECORDS SUMMARY | 2024-12-09 05:59 | XMS_ITS | Encounter Summary ---
Author Organization [employer] Address [address] [place] [address] Care Team Providers Care Dog Show Judge Name Role Phone Yi Thompson MD Primary Care Pro vider Reason for Visit * Reason Comments Med Change Request Encounter Details Date Type Department Care Team ([facility] st Contact Info) Description 03/15/2024 Refill [facility] [address] [place] [address] Leticia Plunkett, ANP [address] [place] [address] Sinus pressure Social History Tobacco Use Types Packs/Day Years [...] Recorded What is your housing situation today? Not on alycia e 02/29/[address] you li ve. Do you have problems with any of the following? None of the above 02/29/2024 Food Insecurity Answer Date Recorded Within the [...] Description 03/31/2025 9:30 AM EDT Medication Management [facility] [address] [place] [address] documented as of this encounter Goals Goal Patient Goal Type Associated Problems Recent Progress Patient-Stated? Author Blood Pressure < 140/90 Blood Pressure 131/77(2023 8:44 AM EST) No Jn Shah Hemoglobin A1c < 7 Result Component 6.8( 8:59 AM EST) No Jn Shah documented as of this encounter Visit Diagnoses Diagnosis Sinus pressure Other diseases of nasal cavity and sinuses documented in this encounter Additional Health Concerns Assessment Noted Time PHQ-9 Depression Total Score: 1 01/13/20 24 12:16 PM EST documented as of this encounter Care Teams Dog Show Judge Relationship Specialty Start Date End Date Yi Thompson MD [address] [place] [address] PCP - General Internal Medicine 08/20/23 documented as of this encounter
--- OUTSIDE RECORDS SUMMARY | 2024-12-09 05:59 | XMS_ITS | Encounter Summary ---
Author Organization [employer] Address [address] [place] [address] Care Team Providers Care Hazardous Waste Remover Name Role Phone Yi Thompson MD Primary Care Pro vider Reason for Visit * Reason Comments Med Refill Encounter Details Date Type Department Care Team (Late st Contact Info) Description 06/02/2024 Refill [facility] [address] [place] [address] Yi Thompson MD [address] [place] [address] Social History Tobacco Use Types Packs/Day Years [...] 03/31/2025 9:30 AM EDT Medication Management [facility] [address] [place] [address] documented as of this encounter Goals Goal [...] documented as of this encounter Care Teams Hazardous Waste Remover Relationship Specialty Start Date End Date Yi Thompson MD [address] [place] [address] PCP - General Internal Medicine 08/20/23 documented as of this encounter
--- OUTSIDE RECORDS SUMMARY | 2024-12-09 05:59 | XMS_ITS | Encounter Summary ---
Author Organization [employer] Address [address] [place] [address] Care Team Providers Care Rubber Factory Worker Name Role Phone Yi Thompson MD Primary Care Pro vider Reason for Visit * Reason Comments Med Change Request Encounter Details Date Type Department Care Team ([facility] st Contact Info) Description 11/08/2023 Refill [facility] [address] [place] [address] [facility] [address] [place] [address] Viral upper respiratory illness Social History Tobacco Use Types Packs/Day Years Used Date Smoking Tobacco: Never Smokeless Tobacco: Never Alcohol Use Standard Drinks/Week Comments Never 0 (1 standard drink = 0.6 oz pur e alcohol) Housing Stability Answer Date Recorded What is your housing situation today? I have radha alvarado 08/31/[address] you [...] getting things needed for daily living? No 08/31/2023 Utilities Answer Date Recorded In the past 12 months, has t he electric, gas, oil or water company threatened to shut off services in your home? No 08/31/2023 Comments No Sex and Gender Information Value Date Recorded Sex Assigned at Female 09/15/2022 10:25 AM EDT Legal Sex Female 10:25 AM EDT Gender Identity Female 09/15/2022 10:25 AM EDT Sexual Orientation Straight 09/15/2022 10 :25 AM EDT documented as of this encounter Miscellaneous Notes * Telephone Encounter - Yi Cleary MD - 11/11/2023 12:33 PM EST There is no recommendation for chronic nasal steroid use documented in this encounter Plan of Treatment Upcoming Encounters Date Type Department Care Team (Late st Contact Info) Description 03/31/2025 9:30 AM EDT Medication Management [facility] [address] [place] [phone] documented as of this encounter Visit Diagnoses Diagnosis Viral upper respiratory illness documented in this encounter Care Teams Rubber Factory Worker Relationship Specialty Start Date End Date Yi Thompson MD [address] [place] [address] PCP - General Internal Medicine 08/20/23 documented as of this encounter
--- OUTSIDE RECORDS SUMMARY | 2024-12-09 05:59 | XMS_ITS | Encounter Summary ---
Author Organization [employer] Address [address] [place] [address] [facility] [place] [address] Care Team Providers Care Textile Pin Worker Name Role Phone Yi Thompson MD Primary Care Pro vider Encounter Details Date Type Department Care Team (Late st Contact Info) Description 11/28/2024 Orders Only GENERIC EXTERNAL DATA DEPARTMENT Provider, Generic External Data Social History Tobacco Use Types Packs/Day Years [...] as of this encounter Miscellaneous Notes * Result Encounter Note - ALYSIA Valdes - 11/28/2024 3:49 PM EST Unclear which specialist ordered these most recent [...] Description 03/31/2025 9:30 AM EDT Medication Management [facility] [address] [place] [id number] documented as of this encounter Goals Goal Patient Goal Type Associated Problems Recent Progress Patient-Stated? Author Blood Pressure < 140/90 Blood Pressure 131/77(2023 8:44 AM EST) No Jn Shah Hemoglobin A1c < 7 Result Component 6.8( 8:59 AM EST) No Jn Shah documented as of this encounter Procedures Procedure Name Priority Date/Time Associated Diagnosis Comments XR CERVICAL SPINE 3V Routine 11/28/2024 3:39 PM EST VITAMIN D 25-OH (D2 AND D3) Routine 11/28/2024 3:37 PM EST VITAMIN B12/FOLATE, SERUM PANEL Routine 11/28/2024 3:37 PM EST TSH W/REFLEX TO FT4 Routine 11/28/2024 3 :37 PM EST CBC WITH AUTO DIFFERENTIAL Routine 11/28/2024 3:37 PM EST SED RATE BY MODIFIED WESTERGREN Routine 11/28/2024 3:37 PM EST T4, FREE Routine 11/28/2024 3:37 PM EST COMPREHENSIVE METABOLIC PANEL Routine 11/28/2024 3:37 PM EST documented in this encounter Results * XR CERVICAL SPINE 3V (11/28/2024 3:39 PM EST) Anatomical Region Laterality Modality Abdomen Radiographic Criss ging 11/28/2024 3:39 PM EST Narrative 11/30/2024 3:35 PM EST ? [facility] ?[address] ?[place] [address] ?XRay Report ? Signed ? Patient: Sapna Herzog ?MR#: M ?? [id number] ? : 1960 ?Acct:[id number] ? Age/Sex: 63 / F ?ADM Date: 11/28/24 ? Loc: HO.XRAY ? Attending Dr: Deepthi Velazquez MD ? Ordering Physician: Deepthi Velazquez MD ?? Date of Service: 11/28/24 ?? Procedure(s): XR cervical spine 3V ?? Accession Number(s): [id number] ? cc: Deepthi Velazquez MD; Yi Thompson MD ? EXAMINATION: ??XR CERVICAL SPINE 2-3 VIEWS ? 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 COMPARISON: Comparison is made with the prior examination dated ?? 08/29/2022. ? FINDINGS: ??AP, lateral, and open-mouth odontoid views of the cervical ?? spine are submitted. ??Osseous mineralization is normal. ??Seven cervical ?? vertebral bodies are identified maintaining normal height and alignment ?? without evidence of fracture or subluxation. ??There is mild ?? degenerative disc disease at C6-7 with disc space narrowing and ?? osteophyte formation. ??The remaining intervertebral disc spaces are ?? preserved. ??The odontoid and lateral masses of C1 are intact. ??There is ?? no prevertebral soft tissue swelling. ? XR/XR cervical spine 3V ?? IMPRESSION: ?? Mild degenerative change at C5-6. ? Electronically signed by: ??Milton Duckworth MD ??11/30/2024 03:32 PM EST ?? RP ? Dictated By: ?Milton Duckworth MD ? Signed By: ?<Electronically signed by Milton Duckworth MD in OV> ?11/30/24 1532 ? DD/ 1539 ? TD/TT: 11/28/24 1557 ? Screener Operator: ? Procedure Note Donramirezter, Image - 11/30/2024 [place] [id number] XRay Report Signed Patient: Sapna Herzog CMR#: [id number] : 9Acct:[id number] Age/Sex: 63 / FADM Date: 11/28/24 Loc: [facility] Attending Dr: Deepthi Velazquez MD Ordering Physician: Deepthi Velazquez MD Date of Service: 11/28/24 Procedure(s): XR cervical spine 3V Accession Number(s): [id number] cc: Deepthi Vealzquez MD; Yi Thompson MD EXAMINATION: XR CERVICAL SPINE 2-3 VIEWS HISTORY: G24.3 - Spasmodic torticollis COMPARISON: Comparison is made with the prior examination dated 08/29/2022. FINDINGS: AP, lateral, and open-mouth odontoid views of the cervical spine are submitted. Osseous mineralization is normal. Seven cervical vertebral bodies are identified maintaining normal height and alignment without evidence of fracture or subluxation. There is mild degenerative disc disease at C6-7 with disc space narrowing and osteophyte formation. The remaining intervertebral disc spaces are preserved. The odontoid and lateral masses of C1 are intact. There is no prevertebral soft tissue swelling. XR/XR cervical spine 3V IMPRESSION: Mild degenerative change at C5-6. Electronically signed by: Milton Duckworth MD 11/30/2024 03:32 PM EST RP Dictated By: Milton Duckworth MD Signed By: <Electronically signed by Milton Duckworth MD in OV> 11/30/24 1532 DD/ 1539 TD/TT: 11/28/24 1557 Screener Operator: [facility] External Provider IMG XR PROCEDURES Final Result * (ABNORMAL) VITAMIN D 25-OH (D2 AND D3) (11/28/2024 3:37 PM EST) Vitamin D, 25-OH, D2 <4 ng/mL [facility] Comment:This test was develo ped and its analytical performancecharacteristics have been determined by [employer] [place], [place]. It hasnot been cleared or approved by the U.S. Food and DrugAdministration. This assay has been validated pursuantto the CLIA regulations and is used for clinicalpurposes.THIS TEST WAS PERFORMED AT:[employer] [id number] [place] [address]YEGABLCANUPAMA LEVI MD,PHD Vitamin D, 25-OH, D3 23 ng/mL [facility] Comment:This test was develo ped and its analytical performancecharacteristics have been determined by [place]. It hasnot been cleared or approved by the U.S. Food and DrugAdministration. This assay has been validated pursuantto the CLIA regulations and is used for clinicalpurposes. Vitamin D, 25-OH, Total 23(A) 30 - 100 ng/mL [facility] Comment:Vitamin D, 25-Hydrox y reports concentrations of twocommon forms, 25-OHD2 and 25-OHD3. 25-OHD3 indicatesboth endogenous production and supplementation.25-OHD2 is an indicator of exogenous sources such asdiet or supplementation. Therapy is based onmeasurement of Total 25-OHD, with levels <20 ng/mLindicative of Vitamin D deficiency, while levelsbetween 20 ng/mL and 30 ng/mL suggest insufficiency.Optimal levels are > or = 30 ng/mL.For additional information, please refer tohttp://education.Seesaw/faq/MGB790(This link is being provided for informational/educational purposes only.) 11/28/2024 3:37 PM EST 11/28/2024 3:37 PM EST Generic External Data Provider LAB BLOOD ORDERAB LES Final Result Performing Organization Address [facility]/ZIP Co de Phone Number [facility] [address] [place] [phone] * TSH with Reflex to Free T4 (11/28/2024 3:37 PM EST) TSH reflex Free T4 2.36 0.32 - 4.0 uIU/mL [facility] 11/28/2024 3:37 PM EST 11/28/2024 3:37 PM EST [employer] External Data Provider LAB BLOOD ORDERAB LES Final Result Performing Organization Address [facility] Co de Phone Number [facility] [address] [place] [phone] * Vitamin B12 (Cobalamin) and Folate Panel, Serum (11/28/2024 3:37 PM EST) Vitamin B12 295 200 - 900 pg/mL [facility] Comment:NORMAL 200-900 PG/ML INDETERMINATE 160-199 PG/ML DEFICIENT < 160 PG/ML Folate 11.5 > or = 4.0 ng/mL [facility] Comment:Reference Values:> o r = 4.0 ng/mL< 4.0 ng/mL suggests folate deficiency Methotrexate, aminopterin and folinic acid(leucovorin) are chemotherapeutic agents whose molecularstructures are similar to folate; therefore, the Architectfolate assay cannot be used for patients using these drugs. 11/28/2024 3:37 PM EST 11/28/2024 3:37 PM EST us Generic External Data Provider LAB BLOOD ORDERAB LES Final Result Performing Organization Address City/[facility] Co de Phone Number [facility] [address] [place] [phone] * (ABNORMAL) Comprehensive Metabolic Panel (11/28/2024 3:37 PM EST) Sodium 144 135 - 145 mmol/L [facility] Potassium 4.2 3.3 - 5.1 mmol/L [facility] Chloride 106 96 - 108 mmol/L [facility] Carbon Dioxide 24 22 - 29 mmol/L [facility] Anion Gap 18 12 - 20 [facility] Urea Nitrogen (BUN) 29(H) 9 - 16 mg/dL [facility] Creatinine, Serum 0.76 0.5 - 1.4 mg/dL [facility] Estimated Glomerular Filt Rate >60 [facility] Comment:Chronic Kidney Disea se: Estimated GFR < 60 mL/min/[id number] Kidney Disease: Estimated GFR < 15 mL/min/1.73m2 Glucose 141(H) 60 - 115 mg/dL [facility] Calcium 9.7 8.4 - 10.2 mg/dL [facility] Bilirubin, Total 0.2 0.0 - 1.0 mg/dL [facility] Aspartate Amino Transferase 22 5 - 31 U/L [facility] Alanine Aminotransferase 20 0 - 31 U/L [facility] Total Protein 8.2(H) 6.5 - 8.0 g/dL [facility] Albumin Level 4.5 3.5 - 5.0 g/dL [facility] Alkaline Phosphatase 74 39 - 117 U/L [facility] 11/28/2024 3:37 PM EST 11/28/2024 3:37 PM EST us Generic External Data Provider LAB BLOOD ORDERAB LES Final Result Performing Organization Address City/[facility]/ZIP Co de Phone Number [facility] [address] [place] [phone] * T4, Free (11/28/2024 3:37 PM EST) [facility] Free T4 (Free Thyroxine) 1.31 0.71 - 1.85 ng/dL [facility] 11/28/2024 3:37 PM EST 11/28/2024 3:37 PM EST Generic External Data Provider LAB BLOOD ORDERAB LES Final Result Performing Organization Address [facility] de Phone Number [facility] [address] [place] [phone] * Sed Rate by Modified Jarodergren (11/28/2024 3:37 PM EST) [facility] Erythrocyte Sedimentation Rate 17 0 - 20 MM/HR [facility] Comment:Patients with polycy themia and many hemoglobin abnormalitiesmay have depressed sed rates whereas patients with anemiamay have elevated sed rates. 11/28/2024 3:37 PM EST 11/28/2024 3:37 PM EST Generic External Data Provider LAB BLOOD ORDERAB LES Final Result Performing Organization Address [facility] de Phone Number [facility] [address] [place] [phone] * (ABNORMAL) CBC auto differential (11/28/2024 3:37 PM EST) [facility] White Blood Count 8.0 4.8 - 10.8 X10*3/uL [facility] Red Blood Count 4.57 4.20 - 5.50 X10*6/uL [facility] Hemoglobin 10.8(L) 12.0 - 16.0 g/dl [facility] Hematocrit 34.5(L) 37.0 - 47.0 % [facility] Mean Corpuscular Volume 75.5(L) 80.0 - 98.0 fL [facility] Mean Corpuscular Hemoglobin 23.6(L) 27.0 - 33.0 pg [facility] Mean Corpuscular HGB Conc 31.3 31.0 - 35.0 g/dl [facility] Red Cell Distribution Width 15.0 11.0 - 16.0 % [facility] Platelet Count 266 160 - 400 X10*3/uL [facility] Mean Platelet Volume 10.5 9.4 - 12.3 fL [facility] Neutrophils Percent Auto 65.8 45 - 73 % [facility] Imm Gran Pct Auto 0.5(H) 0.0 - 0.4 % [facility] Lymphocytes Percent Auto 23.7 20 - 40 % [facility] Monocytes Percent Auto 6.4 2 - 11 % [facility] Eosinophils Percent Auto 2.5 0 - 4 % [facility] Basophils Percent Auto 1.1 0 - 2 % [facility] NRBC Pct Auto 0.0 0.0 - 0.2 /100WBC [facility] Neutrophils Absolute Auto 5.3 2.0 - 8.3 x10*3/uL [facility] Imm Gran Abs Auto 0.04(H) 0.00 - 0.03 X10*3/uL [facility] Lymphocytes Absolute Auto 1.9 1.2 - 4.9 X10*3/uL [facility] Monocytes Absolute Auto 0.5 0.1 - 1.2 X10*3/uL [facility] Eosinophils Absolute Auto 0.2 0.0 - 0.4 X10*3/uL [facility] Basophils Absolute Auto 0.1 0.0 - 0.2 X10*3/uL [facility] NRBC Abs Auto 0.000 0.0 - 0.012 X10*3/uL [facility] 11/28/2024 3:37 PM EST 11/28/2024 3:37 PM EST us Generic External Data Provider LAB BLOOD ORDERAB LES Final Result [facility] [address] [place] [phone] documented in this encounter Visit Diagnoses Not on filedocumented in this encounter Additional Health Concerns Assessment Noted Time PHQ-9 Depression Total Score: 1 01/13/20 24 12:16 PM EST documented as of this encounter Care Teams Textile Pin Worker Relationship Specialty Start Date End Date Yi Thompson MD [address] [place] [address] PCP - General Internal Medicine 08/20/23 documented as of this encounter
--- OUTSIDE RECORDS SUMMARY | 2024-12-09 05:59 | XMS_ITS | Encounter Summary ---
Author Organization [employer] Address [address] [place] [phone] Care Team Providers Care Director Talent Acquisition Name Role Phone Yi Thompson MD Primary Care Pro vider Reason for Visit * Reason Comments Med Change Request Encounter Details Date Type Department Care Team ([facility] st Contact Info) Description 11/11/2023 Refill [facility] [address] [place] [address] [facility] [address] [place] [address] Viral upper respiratory illness Social History Tobacco [...] Description 03/31/2025 9:30 AM EDT Medication Management [facility] [address] [place] [address] documented as of this encounter Visit Diagnoses Diagnosis Viral upper respiratory illness documented in this encounter Care Teams Director Talent Acquisition Relationship Specialty Start Date End Date Yi Thompson MD [address] [place] [address] PCP - General Internal Medicine 08/20/23 documented as of this encounter
--- OUTSIDE RECORDS SUMMARY | 2024-12-09 05:59 | XMS_ITS | Encounter Summary ---
Author Organization [employer] Address [address] [place] [address] [facility] [place] [address] Care Team Providers Care Washing Machine Operator Name Role Phone Yi Thompson MD Primary Care Pro vider Encounter Details Date Type Department Care Team (Late st Contact Info) Description 11/20/2024 Orders Only GENERIC EXTERNAL DATA DEPARTMENT Provider, [...] Description 03/31/2025 9:30 AM EDT Medication Management [facility] [address] [place] [phone] documented as of this encounter Goals Goal Patient Goal Type Associated Problems Recent Progress Patient-Stated? Author Blood Pressure < 140/90 Blood Pressure 131/77(2023 8:44 AM EST) No Jn Shah Hemoglobin A1c < 7 Result Component 6.8( 8:59 AM EST) No Jn Shah documented as of this encounter Procedures Procedure Name Priority Date/Time Associated Diagnosis Comments HIGH SENSITIVITY TROPONIN I Routine 11/20/2024 3:04 PM EST XR CHEST 1 VIEW Routine 11/20/2024 2:07 PM EST URINALYSIS, COMPLETE, WITH REFLEX TO CULTURE Routine 11/20/2024 1:32 PM EST SARS COV2/INFLUENZA A/B AND RSV RNA QL NAAT Routine 11/20/2024 12:03 PM EST CBC WITH AUTO DIFFERENTIAL Routine 11/20/2024 12:03 PM EST COMPREHENSIVE METABOLIC PANEL Routine 11/20/2024 12:03 PM EST D DIMER HIGH SENSITIVITY Routine 11/20/2024 12:02 PM EST HIGH SENSITIVITY TROPONIN I Routine 11/20/2024 12:02 PM EST APTT Routine 11/20/2024 12:02 PM EST PROTHROMBIN TIME-INR Routine 11/20/2024 12:02 PM EST B TYPE NATRIURETIC PEPTIDE (BNP) Routine 11/20/2024 12:02 PM EST documented in this encounter Results * High Sensitivity Troponin I (11/20/2024 3:04 PM EST) Pathologist [facility] TROPONIN I HIGH SENSITIVITY 4.7 <3.5 - 17.0 ng/L [facility] Comment:The [place] high sens itivity Troponin-I results should beused in conjunction with other diagnostic information suchas ECG, clinical observations and information, and patientsymptoms to aid in the diagnosis of NC. 11/20/2024 3:04 PM EST 11/20/2024 3:08 PM EST us Generic External Data Provider LAB BLOOD ORDERAB LES Final Result [facility] [address] [place] [phone] * XR Chest 1 View (11/20/2024 2:07 PM EST) Anatomical Region Laterality Modality Chest Radiographic Criss ging 11/20/2024 2:07 PM EST Narrative 11/20/2024 2:09 PM EST ? [facility] ?[address] [place] [address]. ?[place] [address] ?XRay Report ? Signed ? Patient: Fany Radha,Sapna C ?MR#: M ?? [id number] ? : 1960 ?Acct:[id number] ? Age/Sex: 63 / F ?ADM Date: 01/05/25 ? Loc: HO.ED ? Attending Dr: ? Ordering Physician: Rocael Pearce ?? Date of Service: 11/20/24 ?? Procedure(s): XR chest 1V ?? Accession Number(s): [id number] ? cc: Rocael Pearce; Yi Thompson MD ? CLINICAL HISTORY: Chest pain ? 1 view chest x-ray ? Comparison: CR/SR - XR CHEST 2V - 07/29/24 13:35 EDT ? Findings: ?? No consolidation, pleural effusion or pneumothorax. ?? Heart size is normal. ?? No acute fracture. ? IMPRESSION: ?? 1. No acute findings. ? This document has been electronically signed by: Cindy Austin, DO on ?? 11/20/2024 14:07:22 ? Dictated By: ?Cindy Austin MD ? Signed By: ?<Electronically signed by Cindy Austin MD in OV> ?11/20/24 1408 ? DD/ 1407 ? TD/TT: 11/20/24 1407 ? Reel Blade Bender Furnace Tender: ? Procedure Note Donloveinterpreter, Image - 11/20/[address] [address] XRay Report Signed Patient: Sapna Herzog CMR#: M [id number] : 1960cct:[id number] Age/Sex: 63 / FADM Date: 11/20/24 Loc: HO.ED Attending Dr: Ordering Physician: Rocael Pearce Date of Service: 11/20/24 Procedure(s): XR chest 1V Accession Number(s): [id number] cc: Rocael Pearce; Yi Thompson MD CLINICAL HISTORY: Chest pain 1 view chest x-ray Comparison: CR/SR - XR CHEST 2V - 07/29/24 13:35 EDT Findings: No consolidation, pleural effusion or pneumothorax. Heart size is normal. No acute fracture. IMPRESSION: 1. No acute findings. This document has been electronically signed by: Cindy Austin DO on 11/20/2024 14:07:22 Dictated By: Cindy Austin MD Signed By: <Electronically signed by Cindy Austin MD in OV> 11/20/24 1408 DD/ 06 TD/TT: 11/20/241406 Reel Blade Bender Furnace Tender: [facility] External Provider IMG XR PROCEDURES Edited Result - Final * Urinalysis, Complete, with Reflex to Culture (11/20/2024 1:32 PM EST) Color Urine Yellow [facility] Appearance Urine Clear [facility] PH 6.0 5.0 - 9.0 [facility] Glucose Urine UA Negative Negative mg/dL [facility] Urine Blood Trace Negative [facility] Specific [place] - Urine 1.010 1.005 - 1.025 [facility] Urine Protein Negative Neg-Trace mg/dL [facility] Urine Ketones Negative Negative mg/dL [facility] Nitrite Urine Negative Negative [facility] Leukocyte Esterase Urine Negative Negative [facility] RBC Urine 0-2 0 - 2 /HPF [facility] Urine WBC 0-5 0 - 5 /HPF [facility] Urine Squamous Epithelial Cell 0-2 0 - 2 /HPF [facility] Urine Bacteria None Seen None Seen [facility] Hyaline Casts, Urine 0-2 0 - 2 /LPF [facility] 11/20/2024 1:32 PM EST 11/20/2024 1:36 PM EST Narrative [facility] - 11/20/2024 1:48 PM EST 1331Urine, Clean Catch Generic External Data Provider LAB URINE ORDERAB LES Final Result [facility] [address] [place] [phone] [phone] * SARS-CoV-2 RNA, Influenza A/B, and RSV RNA, Ql NAAT (11/20/2024 12:03 PM EST) Influenza A PCR NEGATIVE Negative [facility] Influenza B PCR NEGATIVE Negative [facility] Resp Syncy Virus RNA Qual PCR NEGATIVE Negative [facility] SARS COV2 PCR NEGATIVE Negative [facility] Comment:All test results mus t be correlated with clinical findings.Negative results do not preclude SARS-CoV2, influenza Avirus, influenza B virus and/or RSV infectionand should not be used as the sole basis for treatment orother patient management decisions. Negative results must becombined with clinical observations, patient history, andepidemiological information.This test has not been evaluated for monitoring treatment ofinfection.This test has been authorized by the FDA under an EmergencyUse Authorization (EUA) for use by authorized laboratories.Testing performed on the [employer] GeneXpert utilizingreal-time RT-PCR.All SARS CoV2 and positive influenza A/B results arereported to [facility]. 11/20/2024 12:0 3 PM EST 11/20/2024 12:05 PM EST us Generic External Data Provider LAB MICROBIOLOGY - GENERAL ORDERABLES Final Result [facility] [address] [place] [phone] * (ABNORMAL) Comprehensive Metabolic Panel (11/20/2024 12:03 PM EST) Sodium 142 135 - 145 mmol/L [facility] Potassium 4.1 3.3 - 5.1 mmol/L [facility] Chloride 108 96 - 108 mmol/L [facility] Carbon Dioxide 23 22 - 29 mmol/L [facility] Anion Gap 15 12 - 20 [facility] Urea Nitrogen (BUN) 19(H) 9 - 16 mg/dL [facility] Creatinine, Serum 0.65 0.5 - 1.4 mg/dL [facility] Creatinine Clr Calc Pharmacy 81.9 [facility] Comment:Provided height and weight: 162.56 cm,68.3 kg.eGFR (calculated from the MDRD study equation) and eCrCl(calculated from the Cockcroft-Gault equation) are based ondifferent parameters and may not yield comparable results.If eCrCl result is absurd, please check patient'sheight/weight. Estimated Glomerular Filt Rate >60 [facility] Comment:Chronic Kidney Disea se: Estimated GFR < 60 mL/min/[id number] Kidney Disease: Estimated GFR < 15 mL/min/1.73m2 Glucose 109 60 - 115 mg/dL [facility] Calcium 9.4 8.4 - 10.2 mg/dL [facility] Bilirubin, Total 0.3 0.0 - 1.0 mg/dL [facility] Aspartate Amino Transferase 20 5 - 31 U/L [facility] Alanine Aminotransferase 18 0 - 31 U/L [facility] Total Protein 8.0 6.5 - 8.0 g/dL [facility] Albumin Level 4.5 3.5 - 5.0 g/dL [facility] Alkaline Phosphatase 78 39 - 117 U/L [facility] 11/20/2024 12:0 3 PM EST 11/20/2024 12:05 PM EST us Generic External Data Provider LAB BLOOD ORDERAB LES Final Result [facility] [address] [place], [place] [phone] * (ABNORMAL) CBC auto differential (11/20/2024 12:03 PM EST) White Blood Count 6.5 4.8 - 10.8 X10*3/uL [facility] Red Blood Count 4.77 4.20 - 5.50 X10*6/uL [facility] Hemoglobin 11.4(L) 12.0 - 16.0 g/dl [facility] Hematocrit 35.8(L) 37.0 - 47.0 % [facility] Mean Corpuscular Volume 75.1(L) 80.0 - 98.0 fL [facility] Mean Corpuscular Hemoglobin 23.9(L) 27.0 - 33.0 pg [facility] Mean Corpuscular HGB Conc 31.8 31.0 - 35.0 g/dl [facility] Red Cell Distribution Width 15.0 11.0 - 16.0 % [facility] Platelet Count 271 160 - 400 X10*3/uL [facility] Mean Platelet Volume 10.2 9.4 - 12.3 fL [facility] Neutrophils Percent Auto 69.2 45 - 73 % [facility] Imm Gran Pct Auto 0.5(H) 0.0 - 0.4 % [facility] Lymphocytes Percent Auto 19.2(L) 20 - 40 % [facility] Monocytes Percent Auto 6.9 2 - 11 % [facility] Eosinophils Percent Auto 2.8 0 - 4 % [facility] Basophils Percent Auto 1.4 0 - 2 % [facility] NRBC Pct Auto 0.0 0.0 - 0.2 /100WBC [facility] Neutrophils Absolute Auto 4.5 2.0 - 8.3 x10*3/uL [facility] Imm Gran Abs Auto 0.03 0.00 - 0.03 X10*3/uL [facility] Lymphocytes Absolute Auto 1.3 1.2 - 4.9 X10*3/uL [facility] Monocytes Absolute Auto 0.5 0.1 - 1.2 X10*3/uL [facility] Eosinophils Absolute Auto 0.2 0.0 - 0.4 X10*3/uL [facility] Basophils Absolute Auto 0.1 0.0 - 0.2 X10*3/uL [facility] NRBC Abs Auto 0.000 0.0 - 0.012 X10*3/uL [facility] 11/20/2024 12:0 3 PM EST 11/20/2024 12:05 PM EST us Generic External Data Provider LAB BLOOD ORDERAB LES Final Result [facility] [address] [place] [phone] * D Dimer High Sensitivity (11/20/2024 12:02 PM EST) D Dimer High Sensitivity <150 NG/ML [facility] Comment:D-DIMER HS REFERENCE RANGENote: Our assay reports D-Dimer Units (D- DU).The cut-off value for venous thromboembolic (VTE) disease is230 ng/mL. This value has a very high negative predictivevalue when the patient has a low to moderate clinicalprobability of VTE.The upper limit of normal is 243 ng/mL. 11/20/2024 12:0 2 PM EST 11/20/2024 12:05 PM EST Generic External Data Provider LAB BLOOD ORDERAB LES Final Result Performing Organization Address [facility] de Phone Number [facility] [address] [place] [phone] * High Sensitivity Troponin I (11/20/2024 12:02 PM EST) Pathologist [facility] TROPONIN I HIGH SENSITIVITY 4.3 <3.5 - 17.0 ng/L [facility] Comment:The [place] high sens itivity Troponin-I results should beused in conjunction with other diagnostic information suchas ECG, clinical observations and information, and patientsymptoms to aid in the diagnosis of NC. 11/20/2024 12:0 2 PM EST 11/20/2024 12:05 PM EST Generic External Data Provider LAB BLOOD ORDERAB LES Final Result Performing Organization Address [facility] de Phone Number [facility] [address] [place] [phone] * B Type Natriuretic Peptide (BNP) (11/20/2024 12:02 PM EST) B Type Natriuretic Peptide 16 <100 pg/mL [facility] Comment:For those patients w ho are being treated with Natrecor(nesiritide, recombinant BNP), BNP testing should beperformed at least two hours post treatment in order toensure that only endogenous levels of BNP are detected. 11/20/2024 12:0 2 PM EST 11/20/2024 12:05 PM EST Generic External Data Provider LAB BLOOD ORDERAB LES Final Result Performing Organization Address [facility] Co de Phone Number [facility] [address] [place] [phone] * Partial Thromboplastin Time, Activated (APTT) (11/20/2024 12:02 PM EST) Partial Thromboplastin Time 35.0 26.0 - 36.8 SEC [facility] Comment:For information rega rding the monitoring of direct thrombininhibitors, please refer to Pharmacy. 11/20/2024 12:0 2 PM EST 11/20/2024 12:05 PM EST Generic External Data Provider LAB BLOOD ORDERAB LES Final Result Performing Organization Address [facility] de Phone Number [facility] [address] [place] [phone] * Prothrombin Time-INR (11/20/2024 12:02 PM EST) Prothrombin Time 11.5 10.9 - 12.4 SEC [facility] INTERNATIONAL NORM RATIO 1.0 0.9 - 1.1 [facility] Comment:INTERNATIONAL NORMAL IZED RATIO (INR) REFERENCE RANGES Reference RangeFor patients not on anticoagulant therapy: 0.9 - 1.1INR ranges for oral anticoagulanttherapy:For prevention and treatment of venous thrombosis and pulmonary embolism: 2.0 - 3.0For acute myocardial infarction with aspirin therapy: 2.0 - 3.0For acute myocardial infarction without aspirin therapy: 3.0 - 4.0For patients with mechanical prosthetic heart valves: 2.5 - 3.5 11/20/2024 12:0 2 PM EST 11/20/2024 12:05 PM EST Generic External Data Provider LAB BLOOD ORDERAB LES Final Result Performing Organization Address [facility] Co de Phone Number [facility] [address] [place] [phone] documented in this encounter Visit Diagnoses Not on filedocumented in this encounter Additional Health Concerns Assessment Noted Time PHQ-9 Depression Total Score: 1 01/13/20 24 12:16 PM EST documented as of this encounter Care Teams Washing Machine Operator Relationship Specialty Start Date End Date Yi Thompson MD [address] [place] [address] [place] [phone] PCP - General Internal Medicine 08/20/23 documented as of this encounter
--- OUTSIDE RECORDS SUMMARY | 2024-12-09 06:00 | XMS_ITS | Encounter Summary ---
Author Organization [employer] Address [address] [place] [phone] Care Team Providers Care Life Underwriter Name Role Phone Juliet Bird Primary Care Provider [phone] Yi Thompson MD Primary Care Pro vider Reason for Visit * Reason Onset Date Comments triage 02/27/2023 Encounter Details Date Type Department Care Team (Late st Contact Info) Description 02/27/2023 Telephone [facility] [address] [place] [address] Juliet Bird FNP [address] [place] [address] Dept [place] [address] triage Social History Tobacco Use Types Packs/Day Years [...] Telephone Encounter - Mercedes Samuel RN - 02/27/2023 4:58 PM EDT Triage call with [email or web address] Tools Administrator ID [id number] Pt reports a couple of days of pain with urinating , urine is dark with strong odor, frequency and bilateral flank pain. Pt reports will wait till Thursday. Advised Pt to go to ED or urgent care now not to wait till Thursday and Pt reports , I will have my bring me to the ED . Advised Pt to call back on Saturday 03/03 so clinic can follow up. Advised to increase liquids. Protocol Used: Urinary Symptoms (Adult) Protocol-Based Disposition: See in Office or Video Visit Today Video visit not offered Positive Triage Questions: * Side (flank) or lower back pain present * Can't control passage of urine (i.e., urinary incontinence) and new-onset (< 2 weeks) or worsening * Urinating more frequently than usual (i.e., frequency) * Bad or foul-smelling urine * All higher-acuity triage questions were negative Care Advice Discussed: * Reasons To Call Back - Fever occurs - Pain or burning with urination - Unable to urinate and bladder feels full - You become worse * Telephone Encounter - Teddy Jenkins - 02/27/2023 4:40 PM EDT Symptoms: Urination Pain, Vaginal Symptoms - Not Bleeding, Pain - Severe Outcome: Talk to a nurse or provider within 15 minutes Reason: Severe pelvic pain now The caller accepted this outcome speaks comoran documented in this encounter Plan of Treatment Upcoming Encounters Date Type Department Care Team (Late st Contact Info) Description 03/31/2025 9:30 AM EDT Medication Management [facility] [address] [place] [address] documented as of this encounter Visit Diagnoses Not on filedocumented in this encounter Care Teams Life Underwriter Relationship Specialty Start Date End Date Juliet Bird FNP PCP - General Family Medicine 01/22/23 08/19/23 Yi Thompson MD [address] [place] [address] PCP - General Internal Medicine 08/20/23 documented as of this encounter
--- OUTSIDE RECORDS SUMMARY | 2024-12-09 06:00 | XMS_ITS | Encounter Summary ---
Author Organization [employer] Address [address] [place] [address] Care Team Providers Care Telephone Operators Supervisor Name Role Phone Yi Thompson MD Primary Care Pro vider Reason for Visit * Reason Comments Med Refill Encounter Details Date Type Department Care Team ([facility] st Contact Info) Description 09/15/[address] [facility] [address] [place] [phone] Juliet Bird FNP [address] [place] [address] Dept [place] [address] Primary hypertension; Type 2 diabetes mellitus without complication, without long-term current use of insulin ([facility]) Social History [...] services in your home? No 08/31/2023 Comments Unknown Sex and Gender Information Value [...] Description 03/31/2025 9:30 AM EDT Medication Management [facility] [address] [place] [address] documented as of this encounter Visit Diagnoses Diagnosis Primary hypertension Unspecified essential hypertension Type 2 diabetes mellitus without complication, without long-term current use of insulin ([facility]) documented in this encounter Care Teams Telephone Operators Supervisor Relationship Specialty Start Date End Date Yi Thompson MD [address] [place] [address] PCP - General Internal Medicine 08/20/23 documented as of this encounter
--- OUTSIDE RECORDS SUMMARY | 2024-12-09 06:00 | XMS_ITS | Clinical Summary ---
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 Per CAT Britton, pt tolerated without issue Medications Blood Glucose Monitoring Suppl (FreeStyle [place] Lite) w/Device kit USE DIRECTED 03/24/20 22 Active Spacer/Aero-Holdi ng Chambers (OptiChamber Delisa) misc 1 each every 4 (four) hours if needed (asthma). 1 each 03/20/20 23 Active Senna-Time 8.6 MG tablet Take 2 tablets by mouth in the morning. 11/23/19 24 Active rosuvastatin (Crestor) 40 MG tablet Take 40 mg by mouth in the morning. Active albuterol 108 (90 Base) MCG/ACT inhalerIndication s:Wheezing Inhale 2 puffs every 6 (six) hours if needed for wheezing. 18 g 2 02/22/20 24 2024 Active glucose blood (FREESTYLE LITE) test stripIndications: Type 2 diabetes mellitus without complication, without long-term current use of insulin ([facility]) Use 1 by To Skin route 4 times every day 100 each 11 02/22/20 24 Active oxybutynin XL (Ditropan-XL) 10 MG 24 hr tablet Take 10 mg by mouth Once per day. 12/14/19 24 Active aspirin-acetamino phen-caffeine (Excedrin Migraine) 250-250-65 MG tablet Take 1 tablet by mouth every 6 (six) hours if needed for headaches. 30 tablet 1 03/14/20 24 Active Alcohol Swabs pads 1 Swab at noon and 1 Swab in the evening. Use to test blood sugar twice daily. 100 each 11 03/14/20 24 Active Lancets 33G misc 1 Lancet at noon and 1 Lancet in the evening. Use to test blood sugar twice daily. 100 each 03/14/20 24 Active Methylcellulose, Laxative, (Citrucel) 500 MG tablet Take by mouth. Active estradiol (Estrace) 0.1 MG/GM vaginal cream Insert 1 g into the vagina Once per day. 1g vaginally x 14d, then twice weekly thereafter 45 g 2 06/21/20 24 Active amitriptyline (Elavil) 25 MG tablet Take 1 tablet by mouth at bedtime. Active Cranberry Concentrate 500 MG capsule TAKE 1 CAPSULE BY MOUTH TWICE DAILY WITH FOOD 07/06/20 Active cetirizine (ZyrTEC) 10 MG tablet Take 1 tablet by mouth in the morning. Active acetaminophen (Tylenol 8 Hour) 650 MG ER tablet Take 1 tablet (650 mg) by mouth every 8 (eight) hours if needed for moderate pain. 40 tablet 1 09/02/20 24 Active ibuprofen 400 MG tablet Take 1 tablet (400 mg) by mouth every 6 (six) hours if needed for moderate pain or fever for up to 30 doses. 30 tablet 09/02/20 24 Active pantoprazole (ProtoNix) 40 MG EC tablet TAKE 1 TABLET BY MOUTH EVERY MORNING 30 mins BEFORE BREAKFAST 30 tablet 2 09/30/20 24 Active metFORMIN XR (Glucophage-XR) 500 MG 24 hr tabletIndications :Type 2 diabetes mellitus without complication, without long-term current use of insulin ([facility]) TAKE 1 TABLET BY MOUTH TWICE DAILY AT NOON AND IN THE EVENING WITH MEALS. DO NOT BREAK, CRUSH, DISSOLVE OR CHEW 180 tablet 2 09/30/20 24 Active levothyroxine (Synthroid, Levoxyl) 112 MCG tablet Take 1 tablet by mouth in the morning. 10/05/20 Active hydrOXYzine pamoate (Vistaril) 25 MG capsule Take 1 capsule by mouth at bedtime. 10/18/20 24 Active naproxen (Naprosyn) 500 MG tablet Take 1 tablet by mouth 2 times daily. 08/18/20 Active montelukast (Singulair) 10 MG tablet TAKE 1 TABLET BY MOUTH EVERYDAY AT NOON 30 tablet 2 10/28/20 Active gabapentin (Neurontin) 300 MG capsuleIndication s:Spondylosis of lumbar region without myelopathy or radiculopathy,Deg eneration of intervertebral disc of lumbar region, unspecified whether pain present,Lumbar radiculopathy,Chr onic right-sided low back pain with right-sided sciatica,Sacroili itis (CMS/HCC) Take 1 capsule (300 mg) by mouth at bedtime. 30 capsule 2 10/28/20 24 2024 Active losartan-hydroCHL OROthiazide (Hyzaar) 100-12.5 MG tablet TAKE 1 TABLET BY MOUTH EVERYDAY AT NOON 90 tablet 1 11/29/19 25 Active Januvia 100 MG tabletIndications :Type 2 diabetes mellitus without complication, without long-term current use of insulin (CMS/HCC) TAKE 1 TABLET BY MOUTH EVERY MORNING 90 tablet 12/08/19 25 Active losartan-hydroCHL OROthiazide (Hyzaar) 100-12.5 MG tablet Take 1 tablet by mouth Once per day. 90 tablet 1 03/11/20 24 2024 Discontinued SITagliptin (Januvia) 100 MG tabletIndications :Type 2 diabetes mellitus without complication, without long-term current use of insulin (CMS/HCC) Take 1 tablet (100 mg) by mouth Once per day. 90 tablet 09/12/20 24 2024 Discontinued Active Problems Problem Noted Date Diagnosed Date Chronic otitis externa of both ears 10/28/2024 Assessment & Plan (10/28/2024 9:44 AM EST): Ear canal and TM showed no abnormalities, sign of infection, impaction at this time. No tenderness with tragus manipulation or ear pull. No recent illness. Will send topical treatment for ear itching and mild ear pain Chronic right-sided low back pain with right-lenin ed sciatica 10/28/2024 Assessment & Plan (10/28/2024 9:46 AM EST): Will send for 300 mg gabapentin at bedtime as patient didn't have med on hand. Educated pt about anticipated side effects of medication including drowsiness. Consideration for PT once patient returns from [facility] in January. Chest pain at rest 04/15/2024 Vulvar itching 04/15/2024 Dysphagia 01/13/2024 Microcytosis 01/13/2024 Pain in finger 01/13/2024 Allergic eczema 12/02/2023 Acute cystitis without hematuria 10/28/2023 Assessment & Plan (04/26/2024 3:40 PM EDT): Failed macrobid, UA consistent with UTI. Reduce metformin to 1 tablet daily for 5 days while on bactrim course. Assessment & Plan (10/28/2023 10:24 AM EST): Most likely incidental, most likely to have IC. F/u with neurologist Right upper quadrant abdominal pain 10/28/2023 Assessment & Plan (10/28/2023 1:02 PM EST): Most likely IBS Start colace BID DC fiber F/u with PCP Will restart Metformin which did not seem to have an effect on constipation for DM as above Refer to GI Right leg pain 09/18/2023 Health care maintenance 09/18/2023 Pulmonary nodules 09/17/2023 Hematuria 09/17/2023 Complex regional pain syndro me type 1 of both upper extremities 09/17/2023 Forgetfulness 04/15/2023 Overview (08/20/2023): Seen at [facility] on 07/15/2020 for right sided facial droop and ARREOLA Patient was observed for TIA and had neruo checks per protocol and has not had any symptoms of stroke and symptoms that she presented with are gone. CTA of head and neck was negative. She was seen by Dr. Stanley from Neurology and thought her presentation was most consistent with Migraine not TIA and recommend Topiramate 25 at night. An incidental finding eccentric soft tissue thickening along the anterior aspect of the lower cervical esophagus on image 621 of series 10 that can be further assessed with endoscopy--will refer for outpatient follow up. She has no esophageal symptoms - TIA ruled out - CTA was negative for any acute process in the brain -Thought to be in the setting of migraine - Resolved TUG test 12 seconds WNL today 04/15/23 Mini-cog Clock drawing normal, only remembered 2 of 3 words. Score: 4 Needs further assessment of memory Encouraged pt at this time to set reminders for herself in regards to taking meds and cooking Seasonal allergic rhinitis 04/15/2023 Urinary incontinence 04/09/2023 Overview (06/02/2023): Bladder biopsy 03/17/23 showed Chronic cystitis; muscularis propria present GERD (gastroesophageal reflux disease) Overview (04/15/2023): 08/09/2020: Esophagogastroduodenoscopy with biopsy. Hypertension 04/09/2023 Mild intermittent asthma without complication Primary osteoarthritis of both knees 08/05/2018 Overview (05/19/2023): Ortho appt 04/10/23: O/V RT knee s/p injection 02/12/23 MRI scheduled from 04/20/23. She will follow up after the MRI for review. 05/01/23: MRI with her retained SCS. Injection 05/01/23 Varicose veins of lower extremity 08/05/2018 Assessment & Plan (10/28/2024 9:47 AM EST): Encouraged conservative treatment with compression stockings Consideration for vascular referral once patient returns from [facility] in January. Irritable bowel syndrome with constipation 09/17 Papillary thyroid carcinoma 07/24/2015 Overview (04/15/2023): Excision 07/04/2015 of right paratracheal mass Thymoma 07/24/2015 Vocal cord palsy 05/23/2015 Overview (04/15/2023): Noted on neck CT 07/15/2020 Prolapse of female genital organs 11/07/2014 Overview (04/16/2023): Pelvic floor repair 02/23/2015 Hysterectomy, unknown date, no organs present on CT abd 02/28/23 Diabetic neuropathy 02/28/2014 Hyperlipidemia 02/28/2014 Hypothyroidism, postop 02/28/2014 Type 2 diabetes mellitus without complication Overview (08/20/2023): A1c: 6.5 on 08/12/23; 7.2 on 03/05/23 Glucose: 158 on 08/12/23; 03/05/23 was 200 Current medication regimen: Discontinue Metformin 500mg 2 tabs BID d/t GI upset and rectal spasming. Rx jardiance 25 mg daily. Educated pt to wait 2 wks before starting to make sure that GI sx resolve. Checks blood glucose at home twice a day Encouraged pt to monitor for sx of hypoglycemia, keep treating with small candy and check BG 15 minutes after eating small candy. Notify clinic if episodes continue Microalbumin: WNL 04/03/2021. Needs repeat. Perform at next visit Lipid panel: WNL 02/26/23 Foot exam: Perform at next visit, limited sensation 03/02/23 Podiatry appt. Tdap: 08/30/2013, repeat 08/2023 PCV: Needs PCV 20 dose. Hx of PPV dose 08/08/2014 Statin: Rosuvastatin 10mg; restart today 03/05/23. Educated on importance of taking daily Hima/Arb: Losartan 50mg, 2 tabs daily Assessment & Plan (10/28/2024 9:44 AM EST): A1c at goal <7.0 today Assessment & Plan (10/28/2023 10:23 AM EST): Uncontrolled, most likely due to not using Metformin for one month Restart Metformin ER 500 MG BID and f/u with PCP Titrate medication Assessment & Plan (08/20/2023 5:54 PM EDT): Unknown cause, occurs after she takes medicine Hold Metformin x 2 weeks. See if stomach aches and GI upset improves If improves will start Jardiance F/u 3 months with new PCP or sooner PRN Resolved Problems Problem Noted Date Diagnosed Date Resolved Date Headache 12/02/2023 01/13/2024 Oral pain of unknown etiology 09/02/2023 09/18/2023 Assessment & Plan (09/02/2023 10:06 AM EDT): Possible infection in socket of previous molar removal. No mastoid tenderness. Check X ray. PCN allergy but no known allergy to cephalosporin. Rx cephalosporin for 10 days. Referral to dental for emergent visit. Er precautions discussed. Follow up if symptoms do not improve. 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 04/09/2023 04/15/2023 Thyroid cancer 01/04/2019 04/15/2023 Multiple joint pain 09/03/2018 04/15/20 Calcaneal spur 08/05/2018 09/17/2023 Gastroesophageal reflux disease 05/01/2014 04/15/2023 Encounters Date Type Department Care Team Description 12/08/2024 Refill [facility] [address] [place] [address] Yi Thompson MD Type 2 diabetes mellitus without complication, without long-term current use of insulin (CMS/HCC) 11/30/2024 Telephone [facility] [address] [place] [phone] Kaitlynn Allison RN Results 11/29/2024 Refill [facility] [address] [place] [address] Yi Thompson MD 11/28/2024 Orders Only GENERIC EXTERNAL DATA DEPARTMENT Provider, Generic External Data 11/20/2024 Orders Only GENERIC EXTERNAL DATA DEPARTMENT Provider, Generic External Data 11/06/2024 Orders Only [facility] [address] [place] [id number] Lux Caballero MD 10/28/2024 9:00 AM EST Office Visit [facility] [address] [place] [phone] Cathleen Lomax CNP Spondylosis of lumbar region without myelopathy or radiculopathy (Primary Dx); Degeneration of intervertebral disc of lumbar region, unspecified whether pain present; Lumbar radiculopathy; Chronic right-sided low back pain with right-sided sciatica; Sacroiliitis (CMS/HCC); Type 2 diabetes mellitus without complication, without long-term current use of insulin (CMS/HCC); Chronic otitis externa of both ears, unspecified type; Varicose veins of lower extremity, unspecified laterality, unspecified whether complicated 10/28/2024 Refill [facility] [address] [place] [address] Yi Thompson MD 10/20/2024 Orders Only GENERIC EXTERNAL DATA DEPARTMENT Provider, Generic External Data 10/18/2024 Telephone [facility] [address] [place] [phone] Anjel Anton MA Chart Prep 10/12/2024 Telephone [facility] [address] [place] [address] Yi Thompson MD ER Follow-up 09/30/2024 Refill [facility] [address] [place] [address] Yi Thompson MD Type 2 diabetes mellitus without complication, without long-term current use of insulin ([facility]) 09/30/2024 Refill [facility] [address] [place] [address] Mary Kay Colon MD Type 2 diabetes mellitus without complication, without long-term current use of insulin ([facility]) 09/19/2024 Orders Only GENERIC EXTERNAL DATA DEPARTMENT Provider, Generic External Data 09/12/2024 Refill [facility] [address] [place] [id number] Yi Thompson MD Type 2 diabetes mellitus without complication, without long-term current use of insulin ([facility]) 09/12/2024 Telephone [facility] [address] [place] [address] Yi Thompson MD 09/12/2024 Refill [facility] [address] [place] [address] [phone] Yi Thompson MD Type 2 diabetes mellitus without complication, without long-term current use of insulin ([facility]) from Last 3 Months Immunizations Name Administration Dates Next Due Hep B, adult 08/09/2014,04/04/2014,03/02/2014 Influenza injectable quadriv alent IIV4 with preservative 08/13/2018,09/02/2016 Influenza injectable quadriv alent preservative free 09/17/2023,10/14/2022,11/01/2021,09/03,09/23/2019 Influenza, IIV3, injectable 08/08/2014, 3 Influenza, Split (incl. alexsandra fied surface antigen) 02/28/2014 Pneumococcal Conjugate PCV 20 12/02/2023 Pneumococcal Polysaccharide PPSV23 08/08/2014 Tdap 12/02/2023,08/30/2013 Zoster, Recombinant 08/16/2024,05/03/2024 Family History Medical History Relation Name Comments DM2 Mother niece : thyroid ca Other DM2,HTN Sister gastric ca Sister Relation Name Status Comments Mother Other Sister Social History Tobacco Use Types Packs/Day Years Used Date Smoking Tobacco: Never Smokeless Tobacco: Never Tobacco Cessation:Counseling Given: Not Answered Alcohol Use Standard Drinks/Week Comments Never 0 [...] Orientation Straight 09/15/2022 10 :25 AM EDT Last Filed Vital Signs Vital Sign Reading Time Taken Comments Blood Pressure 131/77 10/28/2024 8:44 AM EST Pulse 91 10/28/2024 8:44 AM EST Temperature 36.8 ??C (98.3 ??F) 10/28/2024 8:44 AM ES T Respiratory Rate 16 10/28/2024 8:44 AM EST Oxygen Saturation 99% 10/28/2024 8:44 AM EST Inhaled Oxygen Concentration - - Weight 69.5 kg (153 lb 3.2 oz) 10/28/2024 8:44 A M EST Height 165.1 cm (5' 5 ) 10/28/2024 8:44 AM EST Body Mass Index 25.49 10/28/2024 8:44 AM EST Plan of Treatment Upcoming Encounters Date Type Department Care Team (Late st Contact Info) Description 03/31/2025 9:30 AM EDT Medication Management [facility] [address] [place] [address] Health Maintenance Due Date Last Done Comments CT Colonography 1960 FIT DNA/Cologuard 1960 FIT 1960 FOBT 1960 Sigmoidoscopy 1960 Diabetes: Foot Exam 1968 RSV Patients and Patients Aged 60 years or older (1 - Risk 60-74 years 1-dose series) 2018 COVID-19 Vaccine ( season) 2024 01/31/2022, 02/05/2021, 01/08/2021 Influenza Vaccine (#1) 2024 , 10/14/2022, 11/01/2021, Additional history exists Diabetes: Urine Protein Screening 01/12/2025 01/12/2024, 12/04/2021, 04/03/2021 Depression Screening 01/13/2025 01/13/2024, 01/13/20 SDOH Screening 04/13/2025 04/13/2024 Alcohol/Substance Use Screening 04/26/2025 04/26/2024 Diabetes: Hemoglobin A1C 04/28/2025 024, 05/16/2024, 04/13/2024, Additional history exists Lipid Panel 05/16/2025 05/16/2024, 03/2024, 09/08/2023, Additional history exists Tobacco Screening 09/02/2025 09/02/2024 Colonoscopy 11/03/2025 11/03/2024 Colorectal Cancer Screening 11/03/2025 Mammogram 01/13/2026 01/13/2024, 12/18, 01/01/2022, Additional history exists Eye Exam 08/08/2026 08/08/2024, 07/18, 08/08/2024, Additional history exists DTaP/Tdap/Td Vaccines (3 - Td or Tdap) 12/02/2033 12/02/2023, 08/30/2013 Hepatitis B Vaccines Completed 08/09/2014, 04/04/2014, 03/02/2014 Cervical Cancer Screening Discontinued HPV/Cotest Discontinued 10/25/2020 Pap Smear Discontinued 10/25/2020 Pneumococcal Vaccine: 65+ Years Completed 12/02/2023, 08/08/2014 Hepatitis C Screening Completed 01/12/2024 Zoster Vaccines Completed 08/16/2024, 05/03/2024 HIB Vaccines Aged Out No longer eligi ble based on patient's age to complete this topic HPV Vaccines Aged Out No longer eligi ble based on patient's age to complete this topic Hepatitis A Vaccines Aged Out No long er eligible based on patient's age to complete this topic IPV Vaccines Aged Out No longer eligi ble based on patient's age to complete this topic Meningococcal Vaccine Aged Out No annette velia eligible based on patient's age to complete this topic RSV under 20 months Aged Out No longe r eligible based on patient's age to complete this topic Rotavirus Vaccines Aged Out No longer eligible based on patient's age to complete this topic Goals Goal Patient Goal Type Associated Problems Recent Progress Patient-Stated? Author Blood Pressure < 140/90 Blood Pressure 131/77(2023 8:44 AM EST) No Jn Shah Hemoglobin A1c < 7 Result Component 6.8( 8:59 AM EST) No Jn Shah Procedures Procedure Name Priority Date/Time Associated Diagnosis Comments XR CERVICAL SPINE 3V Routine 11/28/2024 3:39 PM EST VITAMIN D 25-OH (D2 AND D3) Routine 11/28/2024 3:37 PM EST TSH W/REFLEX TO FT4 Routine 11/28/2024 3 :37 PM EST VITAMIN B12/FOLATE, SERUM PANEL Routine 11/28/2024 3:37 PM EST COMPREHENSIVE METABOLIC PANEL Routine 11/28/2024 3:37 PM EST T4, FREE Routine 11/28/2024 3:37 PM EST SED RATE BY MODIFIED WESTERGREN Routine 11/28/2024 3:37 PM EST CBC WITH AUTO DIFFERENTIAL Routine 11/28/2024 3:37 PM EST HIGH SENSITIVITY TROPONIN I Routine 11/20/2024 3:04 PM EST XR CHEST 1 VIEW Routine 11/20/2024 2:07 PM EST URINALYSIS, COMPLETE, WITH REFLEX TO CULTURE Routine 11/20/2024 1:32 PM EST COMPREHENSIVE METABOLIC PANEL Routine 11/20/2024 12:03 PM EST CBC WITH AUTO DIFFERENTIAL Routine 11/20/2024 12:03 PM EST SARS COV2/INFLUENZA A/B AND RSV RNA QL NAAT Routine 11/20/2024 12:03 PM EST D DIMER HIGH SENSITIVITY Routine 11/20/2024 12:02 PM EST HIGH SENSITIVITY TROPONIN I Routine 11/20/2024 12:02 PM EST B TYPE NATRIURETIC PEPTIDE (BNP) Routine 11/20/2024 12:02 PM EST APTT Routine 11/20/2024 12:02 PM EST PROTHROMBIN TIME-INR Routine 11/20/2024 12:02 PM EST HM COLONOSCOPY Routine 11/03/2024 6:36 PM EST POCT GLYCATED HEMOGLOBIN, TOTAL Routine 10/28/2024 8:59 AM EST Type 2 diabetes mellitus without complication, without long-term current use of insulin (CMS/HCC) POCT GLUCOSE Routine 10/28/2024 8:56 AM EST Type 2 diabetes mellitus without complication, without long-term current use of insulin (CMS/HCC) GLUCOSE, WHOLE BLOOD Routine 10/20/2024 12:[address] LUMBAR POST MYELOGRAPHY Routine 10/11/2024 8:06 AM EST US HEAD NECK SOFT TISSUE Routine 10/07/2024 12:45 PM EST CULTURE, URINE, ROUTINE Routine 09/19/2024 9:29 AM EST LIPID PANEL, STANDARD Routine 05/16/2024 11:43 AM EDT Type 2 diabetes mellitus without complication, without long-term current use of insulin (CMS/HCC) BI US BREAST LIMITED LEFT Routine 01/13/2024 2:35 PM EST ALBUMIN, RANDOM URINE W/CREATININE Routine 01/12/2024 3:10 PM EST HEPATITIS C AB W/REFL TO HCV RNA, QN, PCR Routine 01/12/2024 8:56 AM EST Annual physical exam HPV MRNA E6/E7 Routine 10/25/2020 10:02 AM EST THINPREP PAP Routine 10/25/2020 10:02 AM EST from Last 3 Months or Most Recently Relevant to Health Maintenance Results * XR CERVICAL SPINE 3V (11/28/2024 3:39 PM EST) Anatomical Region Laterality Modality Abdomen Radiographic Criss ging 11/28/2024 3:39 PM EST Narrative 11/30/2024 3:35 PM EST ? [facility] ?[address] ?[place] [address] ?XRay Report ? Signed ? Patient: Fany Radha,Sapna C ?MR#: M ?? [id number] ? : 1960 ?Acct:[id number] ? Age/Sex: 63 / F ?ADM Date: 11/28/24 ? Loc: HO.XRAY ? Attending Dr: Deepthi Velazquez MD ? Ordering Physician: Deepthi Velazquez MD ?? Date of Service: 11/28/24 ?? Procedure(s): XR cervical spine 3V ?? Accession Number(s): [id number] ? cc: Deepthi Velazquez MD; Yi Thompson [...] by Milton Duckworth MD in OV> ?11/30/24 153 ? DD/ 1539 ? TD/TT: 11/28/24 1557 ? 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 Procedure Note Donotkinginterpreter, Image - 11/30/[address] [address] XRay Report Signed Patient: Sapna Herzog CMR#: M [id number] : 9Acct:[id number] Age/Sex: 63 / FADM Date: 11/28/24 Loc: HO.ARISTEO Attending Dr: Deepthi Velazquez MD Ordering Physician: Deepthi Velazquez MD Date of Service: 11/28/24 Procedure(s): XR cervical spine 3V Accession Number(s): [id number] cc: Deepthi Velazquez MD; Yi Thompson MD EXAMINATION: XR CERVICAL [...] Milton Duckworth MD 11/30/2024 03:32 PM EST Dictated By: Milton Duckworth MD Signed By: <Electronically signed by Milton Duckworth MD in OV> 11/30/24 1532 DD/ 1539 TD/TT: 11/28/24 1557 [employer]ar[employer] 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 It hasnot been cleared or approved by the U.S. Food and DrugAdministration. This assay has been validated pursuantto the CLIA regulations and is used for clinicalpurposes.THIS TEST WAS PERFORMED AT:[employer] [id number] [place] [address]MOWSKKI W. MASON,MD,PHD Vitamin D, 25-OH, D3 23 ng/mL [facility] Comment:This test was develo ped and its analytical performancecharacteristics have been determined by [employer] [place], [place]. It hasnot been cleared or approved by the U.S. Food and DrugAdministration. This assay has been validated pursuantto the CLIA regulations and is used for clinicalpurposes. Vitamin D, 25-OH, Total 23(A) 30 - 100 ng/mL [facility] Comment:Vitamin D, 25-Hydrox y reports concentrations [...] = 30 ng/mL.For additional information, please refer [email or web address]/faq/AWV005(This link is being provided for informational/educational purposes only.) 11/28/2024 3:37 PM EST 11/28/2024 3:37 PM EST us Generic External Data Provider LAB BLOOD ORDERAB LES Final Result Performing Organization Address [facility] Co de Phone Number [facility] [address] [place] [phone] * Vitamin B12 (Cobalamin) and Folate Panel, Serum (11/28/2024 3:37 PM EST) Vitamin B12 295 200 - 900 pg/mL [facility] Comment:NORMAL 200-900 PG/ML INDETERMINATE 160-199 PG/ML DEFICIENT < 160 PG/ML Folate 11.5 > or = 4.0 ng/mL [facility] Comment:Reference Values:> o r = 4.0 ng/mL< 4.0 ng/mL suggests folate deficiency Methotrexate, aminopterin and folinic acid(leucovorin) are chemotherapeutic agents whose molecularstructures are similar to folate; therefore, the Architectfolate assay cannot be used for patients using these drugs. 11/28/2024 3:37 PM EST 11/28/2024 3:37 PM EST us Generic External Data Provider LAB BLOOD ORDERAB LES Final Result Performing Organization Address [facility] Co de Phone Number [facility] [address] [place] [phone] * TSH with Reflex to Free T4 (11/28/2024 3:37 PM EST) TSH reflex Free T4 2.36 0.32 - 4.0 uIU/mL [facility] 11/28/2024 3:37 PM EST 11/28/2024 3:37 PM EST us Generic External Data Provider LAB BLOOD ORDERAB LES Final Result Performing Organization Address [facility] Co de Phone Number [facility] [address] [place] [phone] * (ABNORMAL) CBC auto differential (11/28/2024 3:37 PM EST) Only the most recent of2 resultswithin the time period is included. White Blood Count 8.0 4.8 - 10.8 X10*3/uL [facility] Red Blood Count 4.57 4.20 - 5.50 X10*6/uL [facility] Hemoglobin 10.8(L) 12.0 - 16.0 g/dl [facility] Hematocrit 34.5(L) 37.0 - 47.0 % [facility] Mean Corpuscular Volume 75.5(L) 80.0 - 98.0 fL [facility] Mean Corpuscular Hemoglobin 23.6(L) 27.0 - 33.0 pg [facility] Mean Corpuscular HGB Conc 31.3 31.0 - 35.0 g/dl [facility] Red Cell Distribution Width 15.0 11.0 - 16.0 % [facility] Platelet Count 266 160 - 400 X10*3/uL [facility] Mean Platelet Volume 10.5 9.4 - 12.3 fL [facility] Neutrophils Percent Auto 65.8 45 - 73 % [facility] Imm Gran Pct Auto 0.5(H) 0.0 - 0.4 % [facility] Lymphocytes Percent Auto 23.7 20 - 40 % [facility] Monocytes Percent Auto 6.4 2 - 11 % [facility] Eosinophils Percent Auto 2.5 0 - 4 % [facility] Basophils Percent Auto 1.1 0 - 2 % [facility] NRBC Pct Auto 0.0 0.0 - 0.2 /100WBC [facility] Neutrophils Absolute Auto 5.3 2.0 - 8.3 x10*3/uL [facility] Imm Gran Abs Auto 0.04(H) 0.00 - 0.03 X10*3/uL [facility] Lymphocytes Absolute Auto 1.9 1.2 - 4.9 X10*3/uL [facility] Monocytes Absolute Auto 0.5 0.1 - 1.2 X10*3/uL [facility] Eosinophils Absolute Auto 0.2 0.0 - 0.4 X10*3/uL [facility] Basophils Absolute Auto 0.1 0.0 - 0.2 X10*3/uL [facility] NRBC Abs Auto 0.000 0.0 - 0.012 X10*3/uL [facility] 11/28/2024 3:37 PM EST 11/28/2024 3:37 PM EST Generic External Data Provider LAB BLOOD ORDERAB LES Final Result Performing Organization Address [facility] Co de Phone Number [facility] [address] [place] [phone] * Sed Rate by Modified Myren (11/28/2024 3:37 PM EST) Erythrocyte Sedimentation Rate 17 0 - 20 MM/HR [facility] Comment:Patients with polycy themia and many hemoglobin abnormalitiesmay have depressed sed rates whereas patients with anemiamay have elevated sed rates. 11/28/2024 3:37 PM EST 11/28/2024 3:37 PM EST Generic External Data Provider LAB BLOOD ORDERAB LES Final Result Performing Organization Address [facility] Co de Phone Number [facility] [address] [place] [phone] * T4, Free (11/28/2024 3:37 PM EST) Free T4 (Free Thyroxine) 1.31 0.71 - 1.85 ng/dL [facility] 11/28/2024 3:37 PM EST 11/28/2024 3:37 PM EST Generic External Data Provider LAB BLOOD ORDERAB LES Final Result Performing Organization Address [facility] Co de Phone Number [facility] [address] [place] [address] [phone] * (ABNORMAL) Comprehensive Metabolic Panel (11/28/2024 3:37 PM EST) Only the most recent of2 resultswithin the time period is included. Sodium 144 135 - 145 mmol/L [facility] Potassium 4.2 3.3 - 5.1 mmol/L [facility] Chloride 106 96 - 108 mmol/L [facility] Carbon Dioxide 24 22 - 29 mmol/L [facility] Anion Gap 18 12 - 20 [facility] Urea Nitrogen (BUN) 29(H) 9 - 16 mg/dL [facility] Creatinine, Serum 0.76 0.5 - 1.4 mg/dL [facility] Estimated Glomerular Filt Rate >60 [facility] Comment:Chronic Kidney Disea se: Estimated GFR < 60 mL/min/1.45l1Wixixl Kidney Disease: Estimated GFR < 15 mL/min/1.73m2 Glucose 141(H) 60 - 115 mg/dL [facility] Calcium 9.7 8.4 - 10.2 mg/dL [facility] Bilirubin, Total 0.2 0.0 - 1.0 mg/dL [facility] Aspartate Amino Transferase 22 5 - 31 U/L [facility] Alanine Aminotransferase 20 0 - 31 U/L [facility] Total Protein 8.2(H) 6.5 - 8.0 g/dL [facility] Albumin Level 4.5 3.5 - 5.0 g/dL [facility] Alkaline Phosphatase 74 39 - 117 U/L [facility] 11/28/2024 3:37 PM EST 11/28/2024 3:37 PM EST us Generic External Data Provider LAB BLOOD ORDERAB LES Final Result [facility] [address] [place] [phone] * High Sensitivity Troponin I (11/20/2024 3:04 PM EST) Only the most recent of2 resultswithin the time period is included. TROPONIN I HIGH SENSITIVITY 4.7 <3.5 - 17.0 ng/L [facility] Comment:The [place] high sens itivity Troponin-I results should beused in conjunction with other diagnostic information suchas ECG, clinical observations and information, and patientsymptoms to aid in the diagnosis of [place]. 11/20/2024 3:04 PM EST 11/20/2024 3:08 PM EST us Generic External Data Provider LAB BLOOD ORDERAB LES Final Result [facility] [address], [place] [phone] * XR Chest 1 View (11/20/2024 2:07 PM EST) Anatomical Region Laterality Modality Chest Radiographic Criss ging 11/20/2024 2:07 PM EST Narrative 11/20/2024 2:09 PM EST ? [facility] ?[address] ?[place] [address] ?XRay Report ? Signed ? Patient: Sapna Herzog ?MR#: M ?? [id number] ? : 1960 ?Acct:[id number] ? Age/Sex: 63 / F ?ADM Date: 11/20/24 ? Loc: HO.ED ? Attending Dr: ? Ordering Physician: Rocael Pearce ?? Date of Service: 11/20/24 ?? Procedure(s): XR chest 1V ?? Accession Number(s): [id number] ? cc: Rocael Pearce; Yi Thompson MD ? CLINICAL HISTORY: Chest pain ? 1 view chest x-ray ? Comparison: CR/SR - XR CHEST 2V - 9//24 13:35 EDT ? Findings: ?? No consolidation, [...] DD/ 1407 ? TD/TT: 11/20/24 1407 ? 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 Procedure Note Donotuseinterpreter, Image - 11/20/[address] [address] XRay Report Signed Patient: Sapna Herzog CMR#: M [id number] : 9Acct:[id number] Age/Sex: 63 / FADM Date: 11/20/24 Loc: .ED Attending Dr: Ordering Physician: Rocael Pearce Date of Service: 11/20/24 Procedure(s): XR chest 1V Accession Number(s): [id number] cc: Rocael Pearce; Yi Thompson MD CLINICAL [...] Austin MD in OV> 11/20/24 1408 DD/ 140 TD/TT: 11/20/241406 [employer]her Operator: us [facility] External Provider IMG XR PROCEDURES Edited Result - Final * Urinalysis, Complete, with Reflex to Culture (11/20/2024 1:32 PM EST) Color Urine Yellow [facility] Appearance Urine Clear [facility] PH 6.0 5.0 - 9.0 [facility] Glucose Urine UA Negative Negative mg/dL [facility] Urine Blood Trace Negative [facility] Specific [place] - Urine 1.010 1.005 - 1.025 [facility] Urine Protein Negative Neg-Trace mg/dL [facility] Urine Ketones Negative Negative mg/dL [facility] Nitrite Urine Negative Negative [facility] Leukocyte Esterase Urine Negative Negative [facility] RBC Urine 0-2 0 - 2 /HPF [facility] Urine WBC 0-5 0 - 5 /HPF [facility] Urine Squamous Epithelial Cell 0-2 0 - 2 /HPF [facility] Urine Bacteria None Seen None Seen [facility] Hyaline Casts, Urine 0-2 0 - 2 /LPF [facility] 11/20/2024 1:32 PM EST 11/20/2024 1:36 PM EST Narrative [facility] - 11/20/2024 1:48 PM EST 1331Urine, Clean Catch us Generic External Data Provider LAB URINE ORDERAB LES Final Result [facility] [address] [place] [phone] * SARS-CoV-2 RNA, Influenza A/B, and RSV RNA, Ql NAAT (11/20/2024 12:03 PM EST) Influenza A PCR NEGATIVE Negative [facility] Influenza B PCR NEGATIVE Negative [facility] Resp Syncy Virus RNA Qual PCR NEGATIVE Negative [facility] SARS COV2 PCR NEGATIVE Negative [facility] Comment:All test results mus t be [...] use by authorized laboratories.Testing performed on the Bike HUDXpert utilizingreal-time RT-PCR.All SARS CoV2 and positive influenza A/B results arereported to [facility]. 11/20/2024 12:0 3 PM EST 11/20/2024 12:05 PM EST Generic External Data Provider LAB MICROBIOLOGY - GENERAL ORDERABLES Final Result Performing Organization Address [facility] Co de Phone Number [facility] [address] [place] [phone] * D Dimer High Sensitivity (11/20/2024 12:02 PM EST) D Dimer High Sensitivity <150 NG/ML [facility] Comment:D-DIMER HS REFERENCE RANGENote: Our assay [...] ORDERAB LES Final Result Performing Organization Address [facility] de Phone Number [facility] [address] [place] [address] [phone] * Partial Thromboplastin Time, Activated (APTT) (11/20/2024 12:02 PM EST) Pathologist [facility] Partial Thromboplastin Time 35.0 26.0 - 36.8 SEC [facility] Comment:For information rega rding the monitoring of direct thrombininhibitors, please refer to Pharmacy. 11/20/2024 12:0 2 PM EST 11/20/2024 12:05 PM EST Generic External Data Provider LAB BLOOD ORDERAB LES Final Result Performing Organization Address [facility] Co de Phone Number [facility] [address] [place] [address] [phone] * Prothrombin Time-INR (11/20/2024 12:02 PM EST) Prothrombin Time 11.5 10.9 - 12.4 SEC [facility] INTERNATIONAL NORM RATIO 1.0 0.9 - 1.1 [facility] Comment:INTERNATIONAL NORMAL IZED RATIO (INR) REFERENCE [...] ORDERAB LES Final Result Performing Organization Address City/[facility]/ZIP Co de Phone Number [facility] [address] [place] [phone] * B Type Natriuretic Peptide (BNP) (11/20/2024 12:02 PM EST) Pathologist [facility] B Type Natriuretic Peptide 16 <100 pg/mL [facility] Comment:For those patients w ho are being treated with Natrecor(nesiritide, recombinant BNP), BNP testing should beperformed at least two hours post treatment in order toensure that only endogenous levels of BNP are detected. 11/20/2024 12:0 2 PM EST 11/20/2024 12:05 PM EST us Generic External Data Provider LAB BLOOD ORDERAB LES Final Result Performing Organization Address [facility]/ZIP Co de Phone Number [facility] [address] [place] [phone] * Hm Colonoscopy (11/03/2024 6:36 PM EST) Historical Provider HEALTH MAINTENANCE Final Result * (ABNORMAL) POCT HGB A1C (10/28/2024 8:59 AM EST) [facility] Hemoglobin A1C 6.8(A) 4.0 - 6.0 % QC Media Lot # [id number] Lot# Expiration Date Blood 10/28/2024 8:59 AM EST [facility] POINT OF CARE TEST ENTER/ EDIT ORDERABLES Final Result * POCT Glucose (10/28/2024 8:56 AM EST) [facility] Glucose Blood, POC 119 60 - 200 mg/dL QC Media Lot # [id number] Lot# Expiration Date Blood Capillary blood specimen / Unknown 10/28/2024 8:56 AM EST [facility] POINT OF CARE TEST ENTER/ EDIT ORDERABLES Final Result * Glucose, Whole Blood (10/20/2024 12:40 PM EST) [facility] Glucose, Whole Blood 115 60 - 115 mg/dL [facility] Comment:METER #: [id number] 10/20/2024 12:4 0 PM EST 10/20/2024 4:18 PM EST Generic External Data Provider LAB BLOOD ORDERAB LES Final Result [facility] [address], [place] [phone] * CT lumbar post myelography (10/11/2024 8:06 AM EST) Anatomical Region Laterality Modality Spine, L-spine Computed Tomogra phy 10/11/2024 8:06 AM EST Narrative 10/26/2024 12:35 PM EST ? [facility] ?[address] ?[place] [address] ? CT Scan Report ? Signed ? Patient: Fany Radha,Sapna C ?MR#: M ?? [id number] ? : 1960 ?Acct:[id number] ? Age/Sex: 63 / F ?ADM Date: 10/11/24 ? Loc: HO.SSS ? Attending Dr: Jcarlos Gee MD ? Ordering Physician: Jcarlos Gee MD ?? Date of Service: 10/11/24 ?? Procedure(s): CT lumbar post myelography ?? Accession Number(s): [id number] ? cc: Jcarlos Gee MD; Yi Thompson MD ? EXAMINATION: ?? CT LUMBAR SPINE MYELOGRAPHY. ? CLINICAL INFORMATION: ?? Spondylosis lumbar region, lumbago with sciatica right-sided. Spinal ?? stimulator placement. ? COMPARISON: ?? Correlation made with noncontrast CT lumbar 07/28/2024. ? TECHNIQUE: ?? Lumbar myelographic contrast injection was performed prior to the CT ?? exam. This was followed by CT imaging of the lumbar spine performed ?? without IV contrast, utilizing spiral technique. Sagittal, coronal, and ?? thin section axial reformatted images were constructed from the axial ?? data set. ? This CT examination was performed using dose optimization techniques as ?? appropriate, variously including the following: ?? *Automated exposure control ?? *Adjustment of mA and/or kV according to patient size (this includes ?? techniques or standardized protocols for targeted exams where dose is ?? matched to indication/reason for exam; i.e. extremities or head) ?? *Use of iterative reconstruction technique ? DLP: ?? 357 mGy-cm ? Exam submitted for review 10/26/2024 11:21 AM [employer]. ? FINDINGS: ? STUDY QUALITY: ?? -Suboptimal study quality due to poor intrathecal mixing of intrathecal ?? contrast, with suboptimal contrast opacification of L3-L5, and dense ?? pooling contrast in the dorsal thecal sac at L5-S1. This limits ?? sensitivity of the study. ? CORONAL ALIGNMENT: ?? -Minimal levoconvex scoliosis, apex at L4. ? SAGITTAL ALIGNMENT: ?? - Normal lordosis. Normal alignment without subluxations. ? LUMBOSACRAL JUNCTION: ?? -Normal. There are 5 [id number] lumbar-type vertebral bodies. ? VERTEBRAL BODIES/BONE: ?? -Well maintained with normal height. No compression fractures, ?? anomalies or other deformities. ?? -No suspicious bone lesions. ? DISCS: ?? -Focally severe disc degeneration at L5-S1 with disc vacuum phenomenon ?? and mild irregular endplate changes. ?? -Disc levels above L5 appear normal/preserved. ? SPINAL CANAL: ?? -No abnormal developmental findings. ?? -Suboptimal contrast admixing as detailed above. ?? -8 spinal stimulator catheter enters the epidural space on the right ?? via the right L5-S1 interlaminar space, and courses in the right ?? lateral epidural space, with the tip terminating just below the ?? inferior margin of the right pedicle of L1, lying within the dorsal ?? lateral epidural space. No evidence of contrast leak. ?? -A few intrathecal bubbles of gas are present from injection. ? Conus terminates at the mid L2 level and is normal in morphology. ?? Within the limitations of technique, no discrete nerve root ?? abnormalities are detected although evaluation spanning L2-L5 is ?? limited. ? AXIAL DISC SPACE IMAGES: ? T12-L1: No central canal or neural foraminal narrowing. ? L1-L2: No central canal or neural foraminal narrowing. ? L2-L3: No central canal or neural foraminal narrowing. ? L3-L4: No central canal or neural foraminal narrowing. ? L4-L5: Minimal disc bulge without central canal narrowing. Mild ?? bilateral neural foraminal narrowing. No changes. ? L5-S1: Shallow disc osteophytic ridge complex is present ?? concentrically. This minimally indents upon the ventral thecal sac ?? without central canal or lateral recess narrowing. There are mild to ?? moderate hypertrophic degenerative facet changes bilaterally, with ?? findings resulting in mild to moderate bilateral neural foraminal ?? narrowing. ? IMAGED SI JOINTS: ?? -Mild degenerative arthritis bilaterally. ? PARAVERTEBRAL AND INCLUDED EXTRASPINAL SOFT TISSUES: ?? -Mild atheromatous changes of the aorta and iliac arteries without ?? aneurysm. ?? Remainder of the imaged soft tissues demonstrate no abnormality. ? CT/CT lumbar post myelography ?? IMPRESSION: ?? 1. Somewhat suboptimal examination from poor contrast admixing with ?? CSF. See above. ?? 2. Spinal stimulator lead enters via the right L5-S1 interlaminar ?? space, and courses in the right lateral epidural space, with the tip ?? terminating just inferior to the right pedicle of L1, dorsal lateral ?? right epidural space. No evidence of leak. ?? 3. Degenerative disc and facet disease relatively confined to L5-S1. No ?? significant central canal narrowing at any level. Mild to moderate ?? bilateral neural foraminal narrowing with disc degeneration L5-S1. ?? 4. No suspicious or acute bony abnormalities. ?? 5. Ancillary findings as discussed. ? Electronically signed by: ??Guanakito Melchor MD ??10/26/2024 12:32 PM EST RP ?? Workstation: [id number] ? Dictated By: ?Guanakito Melchor MD ? Signed By: ?<Electronically signed by Guanakito Melchor MD in OV> ?10/26/24 1232 ? DD/ 0806 ? TD/TT: 10/11/24 0820 ? 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 Procedure Note Lissy, Rocio - 10/26/[address] [place] [address] [address] Scan Report Signed Patient: Sapna Herzog CMR#: M [id number] : 9Acct:[id number] Age/Sex: 63 / FADM Date: 10/11/24 Loc: HO.SSS Attending Dr: Jcarlos Gee MD Ordering Physician: Jcarlos Gee MD Date of Service: 10/11/24 Procedure(s): CT lumbar post myelography Accession Number(s): [id number] cc: Jcarlos Gee MD; Yi Thompson MD EXAMINATION: CT LUMBAR SPINE MYELOGRAPHY. CLINICAL INFORMATION: Spondylosis lumbar region, lumbago with sciatica right-sided. Spinal stimulator placement. COMPARISON: Correlation made with noncontrast CT lumbar 07/28/2024. TECHNIQUE: Lumbar myelographic contrast injection was performed prior to the CT exam. This was followed by CT imaging of the lumbar spine performed without IV contrast, utilizing spiral technique. Sagittal, coronal, and thin section axial reformatted images were constructed from the axial data set. This CT examination was performed using dose optimization techniques as appropriate, variously including the following: *Automated exposure control *Adjustment of mA and/or kV according to patient size (this includes techniques or standardized protocols for targeted exams where dose is matched to indication/reason for exam; i.e. extremities or head) *Use of iterative reconstruction technique DLP: 357 mGy-cm Exam submitted for review 10/26/2024 11:21 AM [employer]. FINDINGS: STUDY QUALITY: -Suboptimal study quality due to poor intrathecal mixing of intrathecal contrast, with suboptimal contrast opacification of L3-L5, and dense pooling contrast in the dorsal thecal sac at L5-S1. This limits sensitivity of the study. CORONAL ALIGNMENT: -Minimal levoconvex scoliosis, apex at L4. SAGITTAL ALIGNMENT: - Normal lordosis. Normal alignment without subluxations. LUMBOSACRAL JUNCTION: -Normal. There are 5 oyt-exi-clhawjc lumbar-type vertebral bodies. VERTEBRAL BODIES/BONE: -Well maintained with normal height. No compression fractures, anomalies or other deformities. -No suspicious bone lesions. DISCS: -Focally severe disc degeneration at L5-S1 with disc vacuum phenomenon and mild irregular endplate changes. -Disc levels above L5 appear normal/preserved. SPINAL CANAL: -No abnormal developmental findings. -Suboptimal contrast admixing as detailed above. -8 spinal stimulator catheter enters the epidural space on the right via the right L5-S1 interlaminar space, and courses in the right lateral epidural space, with the tip terminating just below the inferior margin of the right pedicle of L1, lying within the dorsal lateral epidural space. No evidence of contrast leak. -A few intrathecal bubbles of gas are present from injection. Conus terminates at the mid L2 level and is normal in morphology. Within the limitations of technique, no discrete nerve root abnormalities are detected although evaluation spanning L2-L5 is limited. AXIAL DISC SPACE IMAGES: T12-L1: No central canal or neural foraminal narrowing. L1-L2: No central canal or neural foraminal narrowing. L2-L3: No central canal or neural foraminal narrowing. L3-L4: No central canal or neural foraminal narrowing. L4-L5: Minimal disc bulge without central canal narrowing. Mild bilateral neural foraminal narrowing. No changes. L5-S1: Shallow disc osteophytic ridge complex is present concentrically. This minimally indents upon the ventral thecal sac without central canal or lateral recess narrowing. There are mild to moderate hypertrophic degenerative facet changes bilaterally, with findings resulting in mild to moderate bilateral neural foraminal narrowing. IMAGED SI JOINTS: -Mild degenerative arthritis bilaterally. PARAVERTEBRAL AND INCLUDED EXTRASPINAL SOFT TISSUES: -Mild atheromatous changes of the aorta and iliac arteries without aneurysm. Remainder of the imaged soft tissues demonstrate no abnormality. CT/CT lumbar post myelography IMPRESSION: 1. Somewhat suboptimal examination from poor contrast admixing with CSF. See above. 2. Spinal stimulator lead enters via the right L5-S1 interlaminar space, and courses in the right lateral epidural space, with the tip terminating just inferior to the right pedicle of L1, dorsal lateral right epidural space. No evidence of leak. 3. Degenerative disc and facet disease relatively confined to L5-S1. No significant central canal narrowing at any level. Mild to moderate bilateral neural foraminal narrowing with disc degeneration L5-S1. 4. No suspicious or acute bony abnormalities. 5. Ancillary findings as discussed. 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 [facility] ?[address] ?[place] [address] ? Ultrasound Report ? Signed ? Patient: Fany Radha,Sapna C ?MR#: M ?? [id number] ? : 1960 ?Acct:[id number] ? Age/Sex: 63 / F ?ADM Date: 11/22/24 ? Loc: HO.US ? Attending Dr: Ashley Smiley MD ? Ordering Physician: Ashley Smiley MD ?? Date of Service: 10/07/24 ?? Procedure(s): US soft tiss head and/or neck ?? Accession Number(s): [id number] ? cc: Ashley Smiley MD; Yi Thompson MD ? EXAMINATION: ?? US SOFT TISSUE OF THE NECK ? CLINICAL INFORMATION: ?? Personal history of malignant neoplasm of thyroid. ? COMPARISON: ?? Ultrasound soft tissue head/neck thyroid 12/26/2019 12/22/2017. ?? Correlated to CT neck 01/12/2020. ? TECHNIQUE: ?? Linear transducer grayscale and color Doppler examination of the neck. ? FINDINGS: ?? Submitted for interpretation on November 04, 2024. ? Absent thyroid gland. ?? There are less than 1.6 cm fatty hilum nodules/lymph nodes at the ?? surgical site. ?? No gross fluid collections. ? US/US soft tiss head and/or neck ?? IMPRESSION: ?? Nonspecific prominent less than 1.6 cm lymph nodes. No gross mass or ?? fluid collections. ? Electronically signed by: ??Andres Kendall MD ??11/04/2024 09:00 AM ?? EST RP ? Dictated By: ?Andres Salcido MD ? Signed By: ?<Electronically signed by Andres Armstrong MD in OV> ? 11/04/24 0900 ? DD/ 1245 ? TD/TT: 10/07/24 1305 ? 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 Procedure Note Lissy, Image - 11/04/[address] [address] Ultrasound Report Signed Patient: Sapna Herzog CMR#: M [id number] : 9Acct:[id number] Age/Sex: 63 / FADM Date: 10/07/24 Loc: HO.US Attending Dr: Aslhey Smiley MD Ordering Physician: Ashley Smiley MD Date of Service: 10/07/24 Procedure(s): US soft tiss head and/or neck Accession Number(s): [id number] cc: Ashley Smiley MD; Yi Thompson MD EXAMINATION: US SOFT TISSUE OF THE NECK CLINICAL INFORMATION: Personal history of malignant neoplasm of thyroid. COMPARISON: Ultrasound soft tissue head/neck thyroid 12/26/2019 12/22/2017. Correlated to CT neck 01/12/2020. TECHNIQUE: Linear transducer grayscale and color Doppler examination of the neck. FINDINGS: Submitted for interpretation on November 04, 2024. Absent thyroid gland. There are less than 1.6 cm fatty hilum nodules/lymph nodes at the surgical site. No gross fluid collections. US/US soft tiss head and/or neck IMPRESSION: Nonspecific prominent less than 1.6 cm lymph nodes. No gross mass or fluid collections. 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 Specimen Source: Urine clean catch Generic External Data Provider LAB MICROBIOLOGY - GENERAL ORDERABLES Final Result [facility] [address] [place] [phone] * Lipid Panel, Standard (05/16/2024 11:43 AM EDT) Triglycerides 85 <150 mg/dL [facility] Comment:Desirable Triglyceri de: less than 150 mg/dLBorderline High Triglyceride 150-199 mg/dLHigh Triglyceride: 200-499 mg/dLVery High Triglyceride: greater than or equal to 5OO mg/dL Cholesterol 124 <200 mg/dL [facility] Comment:Desirable Cholestero l: less than 200 mg/dLBorderline High Cholesterol: 200-239 mg/dLHigh Cholesterol: greater than 239 mg/dL LDL Cholesterol Calculated 62 <100 mg/dL [facility] Comment:Desirable LDL: less than 100 mg/dLNear Optimal/Above Optimal LDL: 110- 129 mg/dLBorderline High LDL: 130-159 mg/dLHigh LDL: 160-189 mg/dLVery High LDL: greater than or equal to 190 mg/dL HDL Cholesterol 45 >40 mg/dL [facility] Comment:Desirable HDL: great er than 40 mg/dL Note: This HDL assay may give artificially low results in patients with liver disease. Blood Venous blood specimen / Unknown 05/16/2024 11:43 AM EDT 05/16/2024 11:49 AM EDT Yi Cleary MD LAB BLOOD ORDERAB LES Final Result [facility] [address] [place], [place] [phone] * BI US Breast Limited Left (01/13/2024 2:35 PM EST) Anatomical Region Laterality Modality Breast Left Ultrasound 01/13/2024 2:35 PM EST Narrative 01/13/2024 2:46 PM EST ? [facility] ? [address] ?[place] [address] ? Ultrasound Report ? Signed ? Patient: Fany Radha,Sapna C ?MR#: M ?? [id number] ? : 1960 ?Acct:[id number] ? Age/Sex: 63 / F ?ADM Date: /26/24 ? Loc: HO.MAMMO ? Attending Dr: Tamie Johnson MD ? Ordering Physician: Yi Thompson MD ?? Date of Service: 01/13/24 ?? Procedure(s): US breast LT limited mamm only ?? Accession Number(s): [id number] ? cc: Yi Thompson MD ? EXAMINATION: ?? MM DIAGNOSTIC DIGITAL BREAST TOMOSYNTHESIS, BILATERAL ?? US BREAST LIMITED, LEFT ? MAMMOGRAPHY: ?? CLINICAL INFORMATION: ? 63 year female complaining of left medial breast pain at approximately ?? 10:00 axis as per patient. Providers note states left tenderness upper ?? and lower inner aspects. Patient also due for bilateral screening. ? COMPARISON: ?? Mammography: 01/07/2023, 01/01/2022, 2020, 08/17/2019. ? TECHNIQUE: ?? Digital breast tomosynthesis is performed in both the craniocaudal and ?? mediolateral oblique views along with computer-aided detection (CAD). ?? Synthesized 2D images are generated from the tomosynthesis. In addition ?? to standard views, a full-field left 3-D ML view was also obtained. ? FINDINGS: ?? There are scattered areas of fibroglandular density (ACR BI-RADS breast ?? composition Category b). ? Marker has been placed in the approximate 10:00 axis of the left breast ?? medially, with the assistance of the patient indicating the region of ?? pain. No underlying mammographic abnormality is evident. ? There are no suspicious masses, suspicious grouped calcifications, or ?? areas of architectural distortion in either breast. There are mild ?? vascular calcifications. The parenchymal pattern is stable from prior ?? exams. ? ULTRASOUND: ?? CLINICAL INFORMATION: ?? Medial left breast pain approximate 10:00 axis. ? COMPARISON: ?? None relevant. ? TECHNIQUE: ?? Targeted sonographic evaluation left breast was performed using a high ?? frequency linear transducer. Attention was focused in the region of ?? pain as indicated by the patient, left breast 7-11 o'clock axes. ?? Selected archived documentation. ? FINDINGS: ? LEFT BREAST: There is a mixture of fatty and fibroglandular tissue. ??No ?? suspicious mass is seen. ??There is no pathologic acoustic shadowing. ?? There is no ultrasonographic correlate to the region of medial left ?? breast pain in the approximate 10:00 axis. ? US/US breast LT limited mamm only ?? IMPRESSION: ?? There are no findings suspicious for malignancy in either breast. ? There is no imaging correlate on mammography or sonography for the ?? region of left breast medial pain. Recommend clinical management. ? Otherwise, recommend returning to routine annual screening. ? OVERALL ASSESSMENT: ?? Mammography: BI-RADS 2 - Benign Findings ?? Ultrasound: BI-RADS 2 - Benign Findings ? RECOMMENDATION: ?? 1. Patient should be managed based on the clinical impression. ?2. ?? Otherwise, routine annual screening mammography. ? This patient's information was entered into a reminder system with a ?? target due date for their next mammogram. ? Dictated By: ?Guanakito Melchor MD ? Signed By: ?<Electronically signed by Guanakito Melchor MD in OV> ?01/13/24 1442 ? DD/ 1435 ? TD/TT: ? 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 Procedure Note Lissy, Image - 01/13/2024 [facility] [address] [place] [address] Ultrasound Report Signed Patient: Sapna Herzog CMR#: M [id number] : 1960cct:[id number] Age/Sex: 63 / FADM Date: 01/11/24 Loc: HO.MAMMO Attending Dr: Tamie Johnson MD Ordering Physician: Yi Thompson MD Date of Service: 01/13/24 Procedure(s): US breast LT limited mamm only Accession Number(s): [id number] cc: Yi Thompson MD EXAMINATION: MM DIAGNOSTIC DIGITAL BREAST TOMOSYNTHESIS, BILATERAL US BREAST LIMITED, LEFT MAMMOGRAPHY: CLINICAL INFORMATION: 63 year female complaining of left medial breast pain at approximately 10:00 axis as per patient. Providers note states left tenderness upper and lower inner aspects. Patient also due for bilateral screening. COMPARISON: Mammography: 01/07/2023, 01/01/2022, 2020, 08/17/2019. TECHNIQUE: Digital breast tomosynthesis is performed in both the craniocaudal and mediolateral oblique views along with computer-aided detection (CAD). Synthesized 2D images are generated from the tomosynthesis. In addition to standard views, a full-field left 3-D ML view was also obtained. FINDINGS: There are scattered areas of fibroglandular density (ACR BI-RADS breast composition Category b). Marker has been placed in the approximate 10:00 axis of the left breast medially, with the assistance of the patient indicating the region of pain. No underlying mammographic abnormality is evident. There are no suspicious masses, suspicious grouped calcifications, or areas of architectural distortion in either breast. There are mild vascular calcifications. The parenchymal pattern is stable from prior exams. ULTRASOUND: CLINICAL INFORMATION: Medial left breast pain approximate 10:00 axis. COMPARISON: None relevant. TECHNIQUE: Targeted sonographic evaluation left breast was performed using a high frequency linear transducer. Attention was focused in the region of pain as indicated by the patient, left breast 7-11 o'clock axes. Selected archived documentation. FINDINGS: LEFT BREAST: There is a mixture of fatty and fibroglandular tissue. No suspicious mass is seen. There is no pathologic acoustic shadowing. There is no ultrasonographic correlate to the region of medial left breast pain in the approximate 10:00 axis. US/US breast LT limited mamm only IMPRESSION: There are no findings suspicious for malignancy in either breast. There is no imaging correlate on mammography or sonography for the region of left breast medial pain. Recommend clinical management. Otherwise, recommend returning to routine annual screening. OVERALL ASSESSMENT: Mammography: BI-RADS 2 - Benign Findings Ultrasound: BI-RADS 2 - Benign Findings RECOMMENDATION: 1. Patient should be managed based on the clinical impression. 2. Otherwise, routine annual screening mammography. This patient's information was entered into a reminder system with a target due date for their next mammogram. Dictated By: Guanakito Melchor MD Signed By: <Electronically signed by Guanakito Melchor MD in OV> 01/13/24 1442 DD/ 1435 TD/TT: Quarry Plant Crusher Operator: us Yi Cleary MD IMG US PROCEDURES Final Result * Albumin, Random Urine W/Creatinine (01/12/2024 3:10 PM EST) Creatinine, Urine 31.68 mg/dL [facility] Microalbumin Urine 5.0 mg/L [facility] Microalbum Creatinine Ratio Ur 15.7 <30 ug/mg cr [facility] Comment:Albumin/Creatinine R atio Reference Ranges: Normal: < 30 ug/mg creatinine Microalbuminuria: 30 - 300 ug/mg creatinineClinical Albuminuria: > 300 ug/mg creatinine 01/12/2024 3:10 PM EST 01/12/2024 4:41 PM EST Yi Cleary MD LAB URINE ORDERAB LES Final Result Performing Organization Address [facility]/ZIP Co de Phone Number [facility] [address] [place] [phone] * Hepatitis C Antibody with Reflex to HCV, RNA, Quantitative, Real-Time PCR (01/12/2024 8:56 AM EST) Pathologist [facility] Hepatitis C Antibody Nonreactive Nonreactive [facility] Comment:Antibodies to HCV no t detected; does not exclude early acuteHCV infection. Blood Venous blood specimen / Unknown 01/12/2024 8:56 AM EST 01/12/2024 11:12 AM EST Yi Cleary MD LAB BLOOD ORDERAB LES Final Result Performing Organization Address [facility] Co de Phone Number [facility] [address] [place] [phone] * THINPREP PAP (10/25/2020 10:02 AM EST) Pathologist [facility] Clinical Information: None given [facility] COMMENT SEE COMMENT [facility] Comment: EXPLANATORY NOTE: ? The Pap is a screening test for cervical cancer. It is ?? not a diagnostic test and is subject to false negative ?? and false positive results. It is most reliable when a ?? satisfactory sample, regularly obtained, is submitted ?? with relevant clinical findings and history, and when ?? the Pap result is evaluated along with historic and ?? current clinical information. ?? Tape Recorder Mechanic : SEE COMMENT [facility] Comment: QUIN[place], CT(ASCP) CT screening location: [address] ??[phone] Interpretation/R esult: Negative for intraepithelial lesion or malignancy. [facility] LMP: NONE GIVEN [facility] Prev. BX: NONE GIVEN [facility] Prev. PAP: NONE GIVEN [facility] SOURCE: None given [facility] Statement Of Adequacy: SEE COMMENT [facility] Comment: Satisfactory for evaluation. Endocervical/transformation zone component present. 10/25/2020 10:0 2 AM EST Kika CADET LAB PATHOLOGY ORDERABLES Final Result Performing Organization Address [facility] de Phone Number [facility] [address] * HPV mRNA E6/E7 (10/25/2020 10:02 AM EST) HPV nRNA E6/E7 Not Detected Not Detected [facility] Comment: This test was performed using the APTIMA HPV Assay ([employer] This assay detects E6/E7 viral messenger RNA (mRNA) from 14 high-risk HPV types (16,18,31,33,35,39,45,51,52,56,58,59,66,68). ?? The analytical performance characteristics of this assay have been determined by [employer]. The modifications have not been cleared or approved by the FDA. This assay has been validated pursuant to the CLIA regulations and is used for clinical purposes. 10/25/2020 10:0 2 AM EST Kika CADET LAB BLOOD ORDERABLES Cammy l Result Performing Organization Address [facility] de Phone Number [facility] [address] [place] [address], [place] from Last 3 Months or Most Recently Relevant to Health Maintenance Care Teams Restaurant And Bar Manager Relationship Specialty Start Date End Date Yi Thompson MD [address] [place] [phone] PCP - General Internal Medicine 08/20/23
[2024-12-09 06:20] LABS: Glucose, Whole Blood 162 mg/dL (60-115)
[2024-12-09] MEDS: Lactated Ringers 1,000 ML 100 ML IVCONT (06:35)
--- NOTE | 2024-12-09 07:27 | MHC.SHP ---
Pre-Procedural Eval Section A - 24 Hr Update-Section A only Date of Service: 12/09/24 The patient is an INPATIENT: No Changes since office visit: Yes Patient answered all questions The patient has been examined within 24 hours of the surgical procedure. The History & Physical has been completed within 30 days and I have reviewed it.: No Section B - Complete if H&P > 30 days Chief Complaint: Presence of neurostimulator Details of Present Illness: Above Relevant Family History (Specify if Yes): No Relevant Social History: None Present Medications: see Short Stay Collaborative assessment Medical History: No relevant PMH History of Previous Operations: Relevant previous surgery/procedure and date(s) Allergies: Allergies Allergy/AdvReac Type Severity Reaction Status Date / Time Penicillins [PENICILLINS] Allergy Intermediate HIVES Verified 11/28/24 14:38 Review of Systems Sugical H&P ROS: Negative: Constitution, Cardiovascular, Respiratory, Neurological, Psychiatric, Hem-Onc, Allergic/Immunologic, Gastrointestinal, Genitourinary, Integumentary and Eyes/Ears/Nose/Throat and Yes, Specify: Musculoskeletal (As above, sacroiliitis.) and Endocrine (h/o thyroid c-a, DM type II) Exam Surgical H&P Exam: Normal: HEENT, Normal: Heart, Normal: Lungs, Normal: Extremities, Normal: Abdomen, Normal: Skin and Normal: Neurological Plan Diagnosis/Plan: Unchanged I have reviewed the history and physical and performed a pertinent physical examination on my patient. No changes have occurred unless specified. Time Spent With Patient Time: Total time managing care of this patient today ____ minutes.
--- NOTE | 2024-12-09 09:36 | P.BOP_ITS ---
Brief Operative Note Date of Service: 12/09/24 Pre-op diagnosis: Presence of spinal cord stimulator [place] [employer] incompatible with MRI, need for MRI studies. Post-op diagnosis: same Procedure: Removal of spinal cord stimulator [place] [employer]. Implants: None Surgeon: Jcarlos Gee MD Anesthesia: GETA and GLMA Was an Fuel Cell Repairer used for this Procedure?: No Estimated blood loss (mL): 12 Pathology: none sent Condition: stable Disposition: PACU
--- NOTE | 2024-12-09 09:41 | W.PM.OPN ---
Operative Note Operative Note Date of Service: 12/09/24 Narrative: Removal of MRI incompatible [place] [employer] spinal cord stimulator. After obtaining informed consent were risks and benefits were clearly explained to the patient, she was taken to the operating room where she was positioned prone on the operating table, [place] [employer] monitors were applied general anesthesia was induced and LMA was inserted in prone position. The patient went into laryngospasm. The decision was made to positioned her supine and intubate the patient. The patient was transferred supine on the stretcher, ASA monitors were reapplied, general anesthesia was deepened and endotracheal intubation was performed. After that patient was transferred on the operating room prone with all pressure points protected. The lower back was prepped with ChloraPrep and draped with sterile utility towels and full body laparoscopic drape. Sterilely draped C-arm was brought over the operating field and position of the anchor of the spinal cord stimulator was demonstrated on the screen. After that previous scars from implantation of the spinal cord stimulator were infiltrated with mixture of lidocaine 2% mixed with bupivacaine 0.5% one-to-one, alongside the previously made incision the scars were incised using 15 blade scalpel. The vertical incision for implantation of the spinal cord stimulator lead was incised 1st, hemostasis was obtained, anchoring device was found in the subcutaneous tissues and anchoring sutures were severed. After that the entire 16 contact epidural lead was removed, the tip was intact as well as all the the electrodes on inspection. The wound was washed with normal saline containing vancomycin and attention was concentrated after that on the horizontal upper buttock incision where the battery was implanted. The new incision was made alongside the previous scar, hemostasis was performed, the battery capsule was incised and spread apart. The anchoring sutures were severed, and battery was delivered to the level of the skin. At this point when both elements of the battery and epidural lead were on the skin suture scissors was used to sever the epidural lead and both portions of the spinal cord stimulator battery were removed. After that the wounds were irrigated with vancomycin containing normal saline, 0-0 Polysorb sutures were used to close the wounds. 0-2 Polysorb sutures were used to approximate the level of the skin. The becky were applied to the skin level. Sterile dressing with bacitracin was applied. After that patient was transferred supine on the operating table awakened, extubated, and transferred stable to the recovery room.
[2024-12-09] MEDS: oxyCODONE HCl Immed Release 5 MG TABLET PO (10:28)
[2024-12-09] MEDS: fentaNYL citrate/PF 100 MCG/2 ML VIAL 50 MCG IVPUSH (10:30)
== END 2024-12-09 11:30 | disposition home or self-care (01) ==
PROVIDERS: PCP Student in an Organized Health Care Education/Training Program; Visit Provider Anesthesiology
PROC: (CPT 63688; principal; 2024-12-09 07:30)
DX: Z45.42 Encounter for adjustment and management of neurostimulator (principal); Z96.82 Presence of neurostimulator; G89.29 Other chronic pain; M79.605 Pain in left leg; M79.604 Pain in right leg; M51.16 Intervertebral disc disorders with radiculopathy, lumbar region; M46.1 Sacroiliitis, not elsewhere classified; M47.816 Spondylosis without myelopathy or radiculopathy, lumbar region; M53.3 Sacrococcygeal disorders, not elsewhere classified; I10 Essential (primary) hypertension; E11.42 Type 2 diabetes mellitus with diabetic polyneuropathy; R91.8 Other nonspecific abnormal finding of lung field; E55.9 Vitamin D deficiency, unspecified; Z85.850 Personal history of malignant neoplasm of thyroid; Z79.1 Long term (current) use of non-steroidal anti-inflammatories (NSAID); Z79.899 Other long term (current) drug therapy; Z79.84 Long term (current) use of oral hypoglycemic drugs; Z88.0 Allergy status to penicillin; Z98.890 Other specified postprocedural states; Z87.891 Personal history of nicotine dependence
CPT/HCPCS: 63688; 82947; J0736; J1596; J2003; J2405; J2704; J2795; J3010; J3370

== ENCOUNTER → 2024-12-09 05:57 | Outpatient (BNV) | payer OTHER, SELFPAY | PROVIDERS: PCP Student in an Organized Health Care Education/Training Program; Visit Provider Anesthesiology | DX: Z96.82 Presence of neurostimulator (principal) | CPT/HCPCS: 63661; 63688 ==

== ENCOUNTER 2024-12-15 11:26 | Outpatient (AMB) | payer OTHER, SELFPAY ==
--- NOTE | 2024-12-15 11:35 | A.OFFVIS_ITS ---
Intake Visit Reasons: S/p [place] [employer] SCS REMOVAL 12/09/24 Intake Note: Pain today 6/10 Vat Skimmer Required: Yes Vat Skimmer Language: Web Analytics Developer Name: Starla Accompanied by: Self / Same As Patient Allergies Penicillins [PENICILLINS] Allergy (Intermediate, Verified 12/15/24 11:40) HIVES HPI Comments Details: Sapna is in my office today for wound inspection and dressing change removal of spinal cord stimulator. The dressing is removed there is no pathological discharge, no swelling, no redness, no tenderness on palpation the wound is washed with ChloraPrep and draped with sterile dressings. Next week we will remove becky. She is living for [place] on 12/25/2024, we will remove the becky on 12/23/2024. The patient reported to us today that she is very satisfied with the care she receives here. She wants to right a supporting letter about her care in this office. Prior: very pleasant 63 years old female who is today in my office after diagnostic right sacroiliac joint injection. She reported no improvement after the procedure short of immediately after the injection her pain became 2/10 from 7/10. Her pain remained 6 to 8/10 for the 1st few hours after the procedure. In additional notes she noted that her pain even increased after 6 hours after the procedure. The patient is suffering from multiple pain generators. However right sacroiliac joint is unlikely the patient is pain generators. To further diagnose the patient's condition I decided to perform CT myelogram, she can not go into the MRI for the reasons described below. Prior: complains on pain in the right posterior hip with radiation into anterior hip and anterior thigh. She was under care in this office with right knee pain and she received [place] [employer] spinal cord stimulator in the lumbar position L1-L2 L3 to stimulate the dorsal roots of L1-L2 and L3 to help her pain in the knee. Since then she had several falls and she was sent to CT scan with and without contrast. Unfortunately some impedances were lost at her spinal cord stimulator and MRI is contraindicated for her. On the CT scan all levels lumbar spine appears to be normal, see the full dictation as below, accept L5-S1 level where the degenerative disc and endplate changes as well as arthritis. . [facility], [facility] Medical History (Updated 11/28/24 @ 10:33 by Deepthi Velazquez MD) Headache Cognitive disorder Cervical dystonia Palpitations Non-cardiac chest pain Pelvic pain Leg pain Bladder pain Lower abdominal pain Gross hematuria Toe pain Right knee pain Effusion, right knee Dysuria Pelvic pain in female Hematuria Mass of spine Hematuria Type 2 diabetes mellitus with polyneuropathy DM2 (diabetes mellitus, type 2) Nail deformity Paronychia Failure of spinal cord stimulator Thymoma Pulmonary nodules Thyroid cancer Blood in urine Constipation by delayed colonic transit Tubular adenoma of colon Gastritis Hypertension Dyslipidemia Post-surgical hypothyroidism Primary thyroid cancer Vitamin D deficiency Surgical History History of thymectomy History of back surgery Hx of colonoscopy Hx of thyroidectomy Hx of hernia repair Hx of section Hx of hysterectomy History of esophagogastroduodenoscopy (EGD) Family History Father Stroke Heart attack Mother Diabetes mellitus Family/Other Family history of cancer Sister Stomach cancer Family/Other Thyroid cancer Social History Household Members: Spouse, Children and Other Are you a primary emergency care tech to a significant other at home: No Do you presently have visiting nurse or other home services: No Alcohol intake: unknown Patient Tobacco Use Status: Former Tobacco user Tobacco use type: Cigarette Second Hand Smoke Exposure: No Sexual orientation: Straight/Heterosexual Gender identity: Female Review of Systems Const All systems reviewed & are unremarkable except as noted in HPI and below Physical Exam Const General: no acute distress and alert Orientation/consciousness: patient oriented x3 Chest Chest palpation & inspection: normal inspection of the chest Resp Effort & Inspection: normal respiratory effort, able to speak in complete sentences, normal respiratory pattern, no audible wheezes and no cough Cardio Jugular venous distension: no JVD Neuro General: patient oriented x3 Extrem Other: Right Knee: Mild effusion Global, non-specific TTP Assessment & Plan Assessment & Plan (1) Spondylosis of lumbar region without myelopathy or radiculopathy: Code(s): M47.816 - Spondylosis without myelopathy or radiculopathy, lumbar region Category: Medical (2) Disc degeneration, lumbar: Code(s): M51.36 - Other intervertebral disc degeneration, lumbar region Category: Medical (3) Lumbar radiculopathy: Code(s): M54.16 - Radiculopathy, lumbar region Category: Medical (4) Back pain: Code(s): M54.9 - Dorsalgia, unspecified Category: Medical Qualifiers: Back pain location: low back pain Chronicity: chronic Back pain laterality: right Sciatica presence: with sciatica Sciatica laterality: sciatica of right side Qualified Code(s): M54.41 - Lumbago with sciatica, right side; G89.29 - Other chronic pain (5) Sacroiliitis: Code(s): M46.1 - Sacroiliitis, not elsewhere classified Category: Medical (6) Chronic right SI joint pain: Code(s): M53.3 - Sacrococcygeal disorders, not elsewhere classified; G89.29 - Other chronic pain Category: Medical Plan Sapna is longstanding patient of mine who received treatment for right knee arthritis with [employer] spinal cord stimulator. Now she complains on pain in the right thigh and right hip unfortunately diagnostic SI joint injection resulted in no pain improvement. Her CT scan is positive for L5-S1 endplate changes and facet arthropathy. CT myelography was read however it has not instrumental to properly diagnose possible MTX to the L5. She was seen by horticultural specialty grower and MRI is recommended. Her spinal cord stimulator has 1 electrode which shows abnormal impedance therefore she can not go for MRI. Need to remove spinal cord stimulator in order to provide appropriate service for the patient. Spinal cord stimulator is removed on 12/09/2024. Dressing changes as above. She is living for [place] on 12/25/2024. We will remove becky on 12/23/2024. Coding Level of Care Code Est Pt Level 3 (65081) Diagnoses Spondylosis of lumbar region without myelopathy or radiculopathy M47.816 Disc degeneration, lumbar M51.36 Lumbar radiculopathy M54.16 Chronic right-sided low back pain with right-sided sciatica M54.41; G89.29 Back pain location: low back pain Chronicity: chronic Back pain laterality: right Sciatica presence: with sciatica Sciatica laterality: sciatica of right side Sacroiliitis M46.1 Chronic right SI joint pain M53.3; G89.29
--- OUTSIDE RECORDS SUMMARY | 2024-12-15 15:23 | XMS_ITS | Encounter Summary ---
Author Organization [facility] Address [address] [place] [address] Care Team Providers Care Order Department Supervisor Name Role Phone Juliet Bird Primary Care Provider [phone]- [phone] Yi Thompson MD Primary Care Pro vider Reason for Visit * Reason Comments Med Refill Encounter Details Date Type Department Care Team (Late Contact Info) Description 06/28/2023 Refill [facility] [address] [place] [address] Juliet Bird FNP [address] [place] [address] [place] [address] Social History Tobacco Use Types Packs/Day Years [...] Description 03/31/2025 9:30 AM EDT Medication Management [facility] [address] [place] [address] documented as of this encounter Visit Diagnoses Not on filedocumented in this encounter Care Teams Order Department Supervisor Relationship Specialty Start Date End Date Juliet Bird FNP PCP - General Family Medicine 01/22/23 08/19/23 Yi Thompson MD [address] [place] [address] PCP - General Internal Medicine 08/20/23 documented as of this encounter
--- OUTSIDE RECORDS SUMMARY | 2024-12-15 15:23 | XMS_ITS | Data Portability ---
Author Organization [place] [facility], Allergy Address [address] [address] Assessment No assessment recorded. Plan of Treatment [...] contr ast No observ ation record ed. [facility] ([facility]) [address] [address], [place], [address], 07/12/2024 17:28:21 07/12/20 24 03/07/2024 CT, neck, soft tissu e, w/ contr ast No observ ation record ed. [email or web address] Not Available 06/17 14:31:41 Result Notes None [...] Available [employer] 4 03:27:19 Oropharyn geal dysphagia [id number] Active 2023 CHANTEL MEYER MD [address] [facility],[place] [address], [facility] [place], [address] , [facility] - [facility] 4 14:16:46 Acquired vocal cord palsy [id number] Active 2023 CHANTEL MEYER MD [address] [facility],[place] [address], [place], [address] , [facility] - [facility] [place] 4 14:27:26 Problem Notes None recorded. Procedures Surgical History Date Name Laterality Status Provider Name and Address Organization Details Recorded Time 07/12/2024 FFL_RE completed CHANTEL MEYER MD [address] [facility],[place] [address], [place], [address], [facility] 07/12/2024 14:20:56 Imaging Results Imaging Date Name Status LastModified by Organiz ation Details LastModified Time 03/07/2024 CT, neck, soft tissue, w/ contrast completed [facility] ([facility]) [address] [facility] [address], [place], [address], 07/12/2024 17:28:21 03/07/2024 CT, neck, soft tissue, w/ contrast completed [email or web address] Information not available 07/12/2024 14:31:41 Procedure Notes None recorded. Medical Equipment None Reported. Allergies Allergen ID Allergen Name Allergen Category Reaction Reaction Severity Criticality Documentation Date Start Date Code Code System Note Provider Name and Address Organization Details Recorded Time 97462 Product containin g penicilli n and antibioti c (product) medicatio n other Not available Not available 03/29/2024 65082 05 SNOMED React ion: unkno wn, unspe cifie d;; Not Available [facility] 01:03:20 Medications Name Sig Start Date Stop Date Status Note LastModified by Organization Details LastModified Time medbox status USE DIRECTED active Not Available Not Available No t Available freestyle lite test strips strp active Not Available Not Available Not Available losartan 50 mg tablet active Medicati on ID: 62111 Br and Name: losartan Send Method: E-Prescr [...] 40 mg tablet [place] Medicati on ID: 87780 Br and Name: lovastat in Send Method: E-Prescr ibed Sub s Allowed: subs OK Medic ationGen ericName : lovastat in Not Available Not Available Not Available amlodipin e 5 mg tablet active Medicati on ID: 41240 Br and Name: amlodipi ne Send Method: [...] Not Available Not Available No t Available Lincoln Thyroid 15 mg tablet active Medicati on ID: 57722 Br and Name: Lincoln Thyroid Send Method: E-Prescr ibed Sub s Allowed: subs OK Medic ationGen ericName : Lincoln Thyroid Not Available Not Available Not Available amitripty line 25 mg tablet active Medicati on ID: 37230 Br and Name: amitript yline Se nd Method: E-Prescr ibed Sub s Allowed: subs OK Medic ationGen ericName : amitript yline Not Available Not Available Not Available Protonix 40 mg intraveno us solution active Medicati on ID: 58544 Br and Name: Protonix Send Method: E-Prescr [...] 150 mg capsule active Medicati on ID: 37982 Br and Name: ranitidi ne HCl Send Method: E-Prescr ibed Sub s Allowed: subs OK Medic ationGen ericName : ranitidi ne HCl Not Available Not Available Not Available hydrochlo rothiazid e 25 mg tablet active Medicati on ID: 28080 Br and Name: hydrochl orothiaz ro Send [...] 17 gram/dose oral powder USE DIRECTED BY [facility] active Not Available Not Available No [...] release 24hr (osmotic) active Medicati on ID: 31682 Br and Name: metformi n Send Method: [...] tablet,de layed release active Medicati on ID: 17964 Du ration Value: 30 Brand Name: omeprazo [...] Updated DateTime 07/12/2024 165.1 cm 27.3 kg/m2 49136.15 g [place] [facility] 07/12/2024 14:07:22 Social History None recorded. Functional Status None recorded. Mental Status None recorded. Family History Nothing Reported. Medical History No medical history recorded. Gynecological HistoryNo gynecological history recorded. Obstetrics History GPAL:G 0 P 0 0 0 0 Past Encounters Encounter ID Performer Location Encounter Start Date Encounter Closed Date Diagnosis/Indication Diagnosis SNOMED-CT Code Diagnosis ICD10 Code Diagnosis Note [id number] CHANTEL MEYER MD [facility] [address] [address] 07/12/2024 13:49:31 07/12/2024 16:53:30 Oropharyngeal dysphagia [id number] R13.12 Likely due to esophageal dysmotilit y. VC paralysis is a factor but doesn't explain her dysphagia to solids. I recommend she discuss GI referral with her PCP. I would be glad to see her as needed. I personally reviewed her imaging reports. Acquired v ocal cord palsy [id number] J38.00 Likely from initial surgery 14 years [...] Name 07/12/2024 1 [employer] [place] [employer] [place] [id number] Giuseppe Rodriguez [id number] Sapna Garcia Notes Date Note Type Note Provider Name and Address Organization Details Recorded Time 07/12/2024 text/html She has a histor y of thyroid cancer. She had thyroidectomy in [place] 14 years ago. She had repeat surgery here 5-6 years ago. She reports her swallowing has been a problem since her first surgery. She had a swallow study at [facility]. She feels like food gets stuck. Has occasional choking with liquids. She has never smoked. She denies throat pain and SOB. I reviewed an Upper GI series which showed esophageal dysmotility. I also reviewed her CT neck with 02/2024 which showed possible right vocal cord paralysis. contrast CHANTEL MEYER MD [address] [place] [address], [place], [address], [facility] - [facility] 07/12/2024 14:28:36 OBGyn Episode No OBEpisode recorded.
--- OUTSIDE RECORDS SUMMARY | 2024-12-15 15:23 | XMS_ITS | Encounter Summary ---
Author Organization [email or web address] Address [address] [place] [address] Care Team Providers Care X Ray Control Equipment Repairer Name Role Phone Yi Thompson MD Primary Care Pro vider Reason for Visit * Reason Comments Med Change Request Encounter Details Date Type Department Care Team ([facility] st Contact Info) Description 11/11/2023 Refill [facility] [address] [place] [address] [facility] [address] [place] [address] Viral upper respiratory illness Social History Tobacco [...] Description 03/31/2025 9:30 AM EDT Medication Management [facility] [address] [place] [address] documented as of this encounter Visit Diagnoses Diagnosis Viral upper respiratory illness documented in this encounter Care Teams X Ray Control Equipment Repairer Relationship Specialty Start Date End Date Yi Thompson MD [address] [place] [address] PCP - General Internal Medicine 08/20/23 documented as of this encounter
--- OUTSIDE RECORDS SUMMARY | 2024-12-15 15:23 | XMS_ITS | Encounter Summary ---
Author Organization [employer] Address [address] [place] [address] Care Team Providers Care Sales Ledger Administrator Name Role Phone Yi Thompson MD Primary Care Pro vider Reason for Visit * Reason Comments Med Refill Encounter Details Date Type Department Care Team (Late st Contact Info) Description 12/08/2024 Refill [facility] [address] [place] [address] Yi Thompson MD [address] [place] [address] Type 2 diabetes mellitus without complication, without long-term current use of insulin ([facility]) Social History Tobacco Use Types [...] Description 03/31/2025 9:30 AM EDT Medication Management [facility] [address] [place] [address] documented as of this encounter Goals Goal Patient Goal Type Associated Problems Recent Progress Patient-Stated? Author Blood Pressure < 140/90 Blood Pressure 131/77(2023 8:44 AM EST) No Jn Shah Hemoglobin A1c < 7 Result Component 6.8( 8:59 AM EST) No Jn Shah documented as of this encounter Visit Diagnoses Diagnosis Type 2 diabetes mellitus without complication, without long-term current use of insulin ([facility]) documented in this encounter Additional Health Concerns Assessment Noted Time PHQ-9 Depression Total Score: 1 01/13/20 24 12:16 PM EST documented as of this encounter Care Teams Sales Ledger Administrator Relationship Specialty Start Date End Date Yi Thompson MD [address] [place] [address] PCP - General Internal Medicine 08/20/23 documented as of this encounter
--- OUTSIDE RECORDS SUMMARY | 2024-12-15 15:23 | XMS_ITS | Encounter Summary ---
Author Organization [employer] Address [address] [place] [address] Care Team Providers Care Hardwood Floor Refinisher Name Role Phone Yi Thompson MD Primary Care Pro vider Reason for Visit * Reason Comments Med Change Request Encounter Details Date Type Department Care Team ([facility] st Contact Info) Description 03/15/2024 Refill [facility] [address] [place] [address] Leticia Plunkett, ANP [address] [place] [address] Sinus pressure Social History Tobacco Use Types [...] Description 03/31/2025 9:30 AM EDT Medication Management [facility] [address] [place] [address] documented as of this encounter Goals Goal [...] documented as of this encounter Care Teams Hardwood Floor Refinisher Relationship Specialty Start Date End Date Yi Thompson MD [address] [place] [address] PCP - General Internal Medicine 08/20/23 documented as of this encounter
--- OUTSIDE RECORDS SUMMARY | 2024-12-15 15:23 | XMS_ITS | Encounter Summary ---
Author Organization [employer] Address [address] [place] [address] [facility] [place] [address] Care Team Providers Care Fiberglass Technician Name Role Phone Yi Thompson MD Primary [...] Description 03/31/2025 9:30 AM EDT Medication Management [facility] MEDICINE [address] [place] [phone] documented as of this encounter Goals Goal [...] Troponin I (11/20/2024 3:04 PM EST) Pathologist [facility] TROPONIN I HIGH SENSITIVITY 4.7 <3.5 - 17.0 ng/L [facility] Comment:The [place] high sens itivity Troponin-I results should beused in conjunction with other diagnostic information suchas ECG, clinical observations and information, and patientsymptoms to aid in the diagnosis of RI. 11/20/2024 3:04 PM EST 11/20/2024 3:08 PM EST us Generic External Data Provider LAB BLOOD ORDERAB LES Final Result [facility] [address] [place] [phone] * XR Chest 1 View (11/20/2024 2:07 PM EST) Anatomical Region Laterality Modality Chest Radiographic Criss ging 11/20/2024 2:07 PM EST Narrative 11/20/2024 2:09 PM EST ? [facility] ?[address] [place] [address]. ?[place] [address] ?XRay Report ? Signed ? Patient: Fany Radha,Sapna C ?MR#: M ?? [id number] ? : 1960 ?Acct:[id number] ? Age/Sex: 63 / F ?ADM Date: 01/05/25 ? Loc: HO.ED ? Attending Dr: ? Ordering Physician: Rocael Pearce ?? Date of Service: 11/20/24 ?? Procedure(s): XR chest 1V ?? Accession Number(s): [id number] ? cc: Rocael Pearce; Yi Thompson MD [...] DD/ 1407 ? TD/TT: 11/20/24 1407 ? Diver'S Tender: ? Procedure Note Donloveinterpreter, Image - 11/20/[address] [address] XRay Report Signed Patient: Sapna Herzog CMR#: M [id number] : 1960cct:[id number] Age/Sex: 63 / FADM Date: 11/20/24 Loc: HO.ED Attending Dr: Ordering Physician: Rocael Pearce Date of Service: 11/20/24 Procedure(s): XR chest 1V Accession Number(s): [id number] cc: Rocael Pearce; Yi Thompson MD CLINICAL [...] OV> 11/20/24 1408 DD/ 06 TD/TT: 11/20/241406 Diver'S Tender: [facility] External Provider IMG XR PROCEDURES Edited Result - Final * Urinalysis, Complete, with Reflex to Culture (11/20/2024 1:32 PM EST) Color Urine Yellow [facility] Appearance Urine Clear [facility] PH 6.0 5.0 - 9.0 [facility] Glucose Urine UA Negative Negative mg/dL [facility] Urine Blood Trace Negative [facility] Specific [place] - Urine 1.010 1.005 - 1.025 [facility] Urine Protein Negative Neg-Trace mg/dL [facility] Urine Ketones Negative Negative mg/dL [facility] Nitrite Urine Negative Negative [facility] Leukocyte Esterase Urine Negative Negative [facility] RBC Urine 0-2 0 - 2 /HPF [facility] Urine WBC 0-5 0 - 5 /HPF [facility] Urine Squamous Epithelial Cell 0-2 0 - 2 /HPF [facility] Urine Bacteria None Seen None Seen [facility] Hyaline Casts, Urine 0-2 0 - 2 /LPF [facility] 11/20/2024 1:32 PM EST 11/20/2024 1:36 PM EST Narrative [facility] - 11/20/2024 1:48 PM EST 1331Urine, Clean Catch Generic External Data Provider LAB URINE ORDERAB LES Final Result [facility] [address] [place] [phone] * SARS-CoV-2 RNA, Influenza A/B, and RSV RNA, Ql NAAT (11/20/2024 12:03 PM EST) Influenza A PCR NEGATIVE Negative [facility] Influenza B PCR NEGATIVE Negative [facility] Resp Syncy Virus RNA Qual PCR NEGATIVE Negative [facility] SARS COV2 PCR NEGATIVE Negative [facility] Comment:All test results mus t be [...] use by authorized laboratories.Testing performed on the [employer] GeneXpert utilizingreal-time RT-PCR.All SARS CoV2 and positive influenza A/B results arereported to [facility]. 11/20/2024 12:0 3 PM EST 11/20/2024 12:05 PM EST us Generic External Data Provider LAB MICROBIOLOGY - GENERAL ORDERABLES Final Result [facility] [address] [place] [phone] * (ABNORMAL) Comprehensive Metabolic Panel (11/20/2024 12:03 PM EST) Sodium 142 135 - 145 mmol/L [facility] Potassium 4.1 3.3 - 5.1 mmol/L [facility] Chloride 108 96 - 108 mmol/L [facility] Carbon Dioxide 23 22 - 29 mmol/L [facility] Anion Gap 15 12 - 20 [facility] Urea Nitrogen (BUN) 19(H) 9 - 16 mg/dL [facility] Creatinine, Serum 0.65 0.5 - 1.4 mg/dL [facility] Creatinine Clr Calc Pharmacy 81.9 [facility] Comment:Provided height and weight: 162.56 cm,68.3 kg.eGFR (calculated from the MDRD study equation) and eCrCl(calculated from the Cockcroft-Gault equation) are based ondifferent parameters and may not yield comparable results.If eCrCl result is absurd, please check patient'sheight/weight. Estimated Glomerular Filt Rate >60 [facility] Comment:Chronic Kidney Disea se: Estimated GFR < 60 mL/min/[id number] Kidney Disease: Estimated GFR < 15 mL/min/1.73m2 Glucose 109 60 - 115 mg/dL [facility] Calcium 9.4 8.4 - 10.2 mg/dL [facility] Bilirubin, Total 0.3 0.0 - 1.0 mg/dL [facility] Aspartate Amino Transferase 20 5 - 31 U/L [facility] Alanine Aminotransferase 18 0 - 31 U/L [facility] Total Protein 8.0 6.5 - 8.0 g/dL [facility] Albumin Level 4.5 3.5 - 5.0 g/dL [facility] Alkaline Phosphatase 78 39 - 117 U/L [facility] 11/20/2024 12:0 3 PM EST 11/20/2024 12:05 PM EST us Generic External Data Provider LAB BLOOD ORDERAB LES Final Result [facility] [address] [place], [place] [phone] * (ABNORMAL) CBC auto differential (11/20/2024 12:03 PM EST) White Blood Count 6.5 4.8 - 10.8 X10*3/uL [facility] Red Blood Count 4.77 4.20 - 5.50 X10*6/uL [facility] Hemoglobin 11.4(L) 12.0 - 16.0 g/dl [facility] Hematocrit 35.8(L) 37.0 - 47.0 % [facility] Mean Corpuscular Volume 75.1(L) 80.0 - 98.0 fL [facility] Mean Corpuscular Hemoglobin 23.9(L) 27.0 - 33.0 pg [facility] Mean Corpuscular HGB Conc 31.8 31.0 - 35.0 g/dl [facility] Red Cell Distribution Width 15.0 11.0 - 16.0 % [facility] Platelet Count 271 160 - 400 X10*3/uL [facility] Mean Platelet Volume 10.2 9.4 - 12.3 fL [facility] Neutrophils Percent Auto 69.2 45 - 73 % [facility] Imm Gran Pct Auto 0.5(H) 0.0 - 0.4 % [facility] Lymphocytes Percent Auto 19.2(L) 20 - 40 % [facility] Monocytes Percent Auto 6.9 2 - 11 % [facility] Eosinophils Percent Auto 2.8 0 - 4 % [facility] Basophils Percent Auto 1.4 0 - 2 % [facility] NRBC Pct Auto 0.0 0.0 - 0.2 /100WBC [facility] Neutrophils Absolute Auto 4.5 2.0 - 8.3 x10*3/uL [facility] Imm Gran Abs Auto 0.03 0.00 - 0.03 X10*3/uL [facility] Lymphocytes Absolute Auto 1.3 1.2 - 4.9 X10*3/uL [facility] Monocytes Absolute Auto 0.5 0.1 - 1.2 X10*3/uL [facility] Eosinophils Absolute Auto 0.2 0.0 - 0.4 X10*3/uL [facility] Basophils Absolute Auto 0.1 0.0 - 0.2 X10*3/uL [facility] NRBC Abs Auto 0.000 0.0 - 0.012 X10*3/uL [facility] 11/20/2024 12:0 3 PM EST 11/20/2024 12:05 PM EST us Generic External Data Provider LAB BLOOD ORDERAB LES Final Result [facility] [address] [place] [phone] * D Dimer High Sensitivity (11/20/2024 12:02 PM EST) D Dimer High Sensitivity <150 NG/ML [facility] Comment:D-DIMER HS REFERENCE RANGENote: Our assay [...] ORDERAB LES Final Result Performing Organization Address [facility] de Phone Number [facility] [address] [place] [phone] * High Sensitivity Troponin I (11/20/2024 12:02 PM EST) Pathologist [facility] TROPONIN I HIGH SENSITIVITY 4.3 <3.5 - 17.0 ng/L [facility] Comment:The [place] high sens itivity Troponin-I results should beused in conjunction with other diagnostic information suchas ECG, clinical observations and information, and patientsymptoms to aid in the diagnosis of RI. 11/20/2024 12:0 2 PM EST 11/20/2024 12:05 PM EST Generic External Data Provider LAB BLOOD ORDERAB LES Final Result Performing Organization Address [facility] de Phone Number [facility] [address] [place] [phone] * B Type Natriuretic Peptide (BNP) (11/20/2024 12:02 PM EST) B Type Natriuretic Peptide 16 <100 pg/mL [facility] Comment:For those patients w ho are being treated with Natrecor(nesiritide, recombinant BNP), BNP testing should beperformed at least two hours post treatment in order toensure that only endogenous levels of BNP are detected. 11/20/2024 12:0 2 PM EST 11/20/2024 12:05 PM EST Generic External Data Provider LAB BLOOD ORDERAB LES Final Result Performing Organization Address [facility] Co de Phone Number [facility] [address] [place] [phone] * Partial Thromboplastin Time, Activated (APTT) (11/20/2024 12:02 PM EST) Partial Thromboplastin Time 35.0 26.0 - 36.8 SEC [facility] Comment:For information rega rding the monitoring of direct thrombininhibitors, please refer to Pharmacy. 11/20/2024 12:0 2 PM EST 11/20/2024 12:05 PM EST Generic External Data Provider LAB BLOOD ORDERAB LES Final Result Performing Organization Address [facility] de Phone Number [facility] [address] [place] [phone] * Prothrombin Time-INR (11/20/2024 12:02 PM EST) Prothrombin Time 11.5 10.9 - 12.4 SEC [facility] INTERNATIONAL NORM RATIO 1.0 0.9 - 1.1 [facility] Comment:INTERNATIONAL NORMAL IZED RATIO (INR) REFERENCE [...] ORDERAB LES Final Result Performing Organization Address [facility] Co de Phone Number [facility] [address] [place] [phone] documented in this encounter Visit Diagnoses Not on filedocumented in this encounter Additional Health Concerns Assessment Noted Time PHQ-9 Depression Total Score: 1 01/13/20 24 12:16 PM EST documented as of this encounter Care Teams Fiberglass Technician Relationship Specialty Start Date End Date Yi Thompson MD [address] [place] [address] [place] [phone] PCP - General Internal Medicine 08/20/23 documented as of this encounter
--- OUTSIDE RECORDS SUMMARY | 2024-12-15 15:23 | XMS_ITS | Encounter Summary ---
Author Organization [employer] Address [address] [place] [phone] Care Team Providers Care Living Nurse Name Role Phone Yi Thompson MD Primary Care Pro vider Reason for Visit * Reason Comments Med Refill Encounter Details Date Type Department Care Team ([facility] st Contact Info) Description 11/29/2024 Refill [facility] [address] [place] [address] Yi Thompson MD [address] [place] [address] Social History Tobacco Use Types Packs/Day Years [...] Description 03/31/2025 9:30 AM EDT Medication Management [facility] MEDICINE [address] [place] [phone] documented as of this encounter Goals Goal [...] documented as of this encounter Care Teams Living Nurse Relationship Specialty Start Date End Date Yi Thompson MD [address] [place] [address] PCP - General Internal Medicine 08/20/23 documented as of this encounter
--- OUTSIDE RECORDS SUMMARY | 2024-12-15 15:23 | XMS_ITS | Encounter Summary ---
Author Organization [employer] Address [address] [place] [phone] Care Team Providers Care Returning Officer Name Role Phone Yi Thompson MD Primary Care Pro vider Reason for Visit * Reason Comments Med Refill Encounter Details Date Type Department Care Team (Late st Contact Info) Description 05/03/2024 Refill [facility] MEDICINE [address] [place] [address] Yi Thompson MD [address] [place] [address] Social History Tobacco Use Types Packs/Day Years [...] 9:30 AM EDT Medication Management [facility] MEDICINE [address] [place] [address] documented as of this encounter Goals Goal [...] documented as of this encounter Care Teams Returning Officer Relationship Specialty Start Date End Date Yi Thompson MD [address] [place] [address] PCP - General Internal Medicine 08/20/23 documented as of this encounter
--- OUTSIDE RECORDS SUMMARY | 2024-12-15 15:23 | XMS_ITS | Encounter Summary ---
Author Organization [employer] Address [address] [place] [address] Care Team Providers Care Solid Waste Technician Name Role Phone Yi Thompson MD Primary Care Pro vider Reason for Visit * Reason Comments Med Refill Encounter Details Date Type Department Care Team ([facility] st Contact Info) Description 05/20/2024 Refill [facility] [address] [place] [phone] Name, MD Ronny [address] [place] [address] Social History Tobacco Use Types Packs/Day Years [...] Description 03/31/2025 9:30 AM EDT Medication Management [facility] MEDIC[facility] [address] [place] [address] documented as of this encounter Goals Goal [...] documented as of this encounter Care Teams Solid Waste Technician Relationship Specialty Start Date End Date Yi Thompson MD [address] [place] [address] PCP - General Internal Medicine 08/20/23 documented as of this encounter
--- OUTSIDE RECORDS SUMMARY | 2024-12-15 15:23 | XMS_ITS | Encounter Summary ---
Author Organization [email or web address] Address [address] [place] [address] [facility] [place] [address] Care Team Providers Care Barrel Tester Name Role Phone Yi Thompson MD Primary Care Pro vider Encounter Details Date Type Department Care Team (Late st Contact Info) Description 12/09/2024 Orders Only GENERIC EXTERNAL DATA DEPARTMENT Provider, [...] AM EDT documented as of this encounter Progress Notes * Kalli Hammonds RN - 12/09/2024 6:20 AM EST Patient on recall list for end of Nov 2024 will discuss BS at that time as walk in center provider suggested follow up documented in this encounter Plan of Treatment Upcoming Encounters Date Type Department Care Team (Late st Contact Info) Description 03/31/2025 9:30 AM EDT Medication Management [facility] MEDICINE [address] [place] [phone] documented as of this encounter Goals Goal Patient Goal Type Associated Problems Recent Progress Patient-Stated? Author Blood Pressure < 140/90 Blood Pressure 131/77(2023 8:44 AM EST) No Jn Shah Hemoglobin A1c < 7 Result Component 6.8( 8:59 AM EST) No Jn Shah documented as of this encounter Procedures Procedure Name Priority Date/Time Associated Diagnosis Comments FL GUIDANCE IN OR Routine 12/09/2024 8:2 4 AM EST GLUCOSE, WHOLE BLOOD Routine 12/09/2024 6:16 AM EST documented in this encounter Results * FL Guidance in OR (12/09/2024 8:24 AM EST) Anatomical Region Laterality Modality X-Ray Angiograph y 12/09/2024 8:24 AM EST Narrative 12/09/2024 2:24 PM EST ? [facility] ?[address] ?[place] [address] ? Fluoroscopy Report ? Signed ? Patient: Fany Radha,Sapna C ?MR#: M ?? [id number] ? : 1960 ?Acct:[id number] ? Age/Sex: 63 / F ?ADM Date: 12/09/24 ? Loc: HO.SSS ? Attending Dr: Jcarlos Gee MD ? Ordering Physician: Jcarlos Gee MD ?? Date of Service: 12/09/24 ?? Procedure(s): FL guidance in OR ?? Accession Number(s): [id number] ? cc: Jcarlos Gee MD; Yi Thompson MD ? EXAMINATION: ??FL GUIDANCE ONLY ? HISTORY: stim removal ? COMPARISON: ?? None available. ? TECHNIQUE: ?? Fluoroscopy time: 3.3 seconds. ?? Cumulative Dose: 0.624 mGy. ?? DAP: 0.271 uGy-m2 (microgray-meter squared). ?? Images: 1. ? FINDINGS: ?? A single fluoroscopic spot film of the pelvis demonstrates a stimulator ?? with the battery pack overlying the iliac wing. ? FL/FL guidance in OR ?? IMPRESSION: ?? Fluoroscopy during procedure. Please see procedure report for ?? additional information. ? Electronically signed by: ??Milton Duckworth MD ??12/09/2024 02:22 PM EST ?? RP ? Dictated By: ?Milton Duckworth MD ? Signed By: ?<Electronically signed by Milton Duckworth MD in OV> ?12/09/24 1422 ? DD/ 3 ? TD/TT: 12/09/24 0842 ? Rubber Goods Inspector: ? Procedure Note Rocio Yuan - 12/09/[address] [address] Fluoroscopy Report Signed Patient: Sapna Herzog CMR#: M [id number] : 9Acct:[id number] Age/Sex: 63 / FADM Date: 12/09/24 Loc: HO.SSS Attending Dr: Jcarlos Gee MD Ordering Physician: Jcarlos Gee MD Date of Service: 12/09/24 Procedure(s): FL guidance in OR Accession Number(s): [id number] cc: Jcarlos Gee MD; Yi Thompson MD EXAMINATION: FL GUIDANCE ONLY HISTORY: stim removal COMPARISON: None available. TECHNIQUE: Fluoroscopy time: 3.3 seconds. Cumulative Dose: 0.624 mGy. DAP: 0.271 uGy-m2 (microgray-meter squared). Images: 1. FINDINGS: A single fluoroscopic spot film of the pelvis demonstrates a stimulator with the battery pack overlying the iliac wing. FL/FL guidance in OR IMPRESSION: Fluoroscopy during procedure. Please see procedure report for additional information. Electronically signed by: Milton Duckworth MD 12/09/2024 02:22 PM EST Dictated By: Milton Duckworth MD Signed By: <Electronically signed by Milton Duckworth MD in OV> 12/09/24 1422 DD/ 0824 TD/TT: 12/09/24 0842 Rubber Goods Inspector: us [facility] External Provider IMG IR PROCEDURES Final Result * (ABNORMAL) Glucose, Whole Blood (12/09/2024 6:16 AM EST) Glucose, Whole Blood 162(H) 60 - 115 mg/dL [facility] Comment:METER #: [id number] 12/09/2024 6:16 AM EST 12/09/2024 6:19 AM EST Generic External Data Provider LAB BLOOD ORDERAB LES Final Result [facility] [address] [place] [phone] documented in this encounter Visit Diagnoses Not on filedocumented in this encounter Additional Health Concerns Assessment Noted Time PHQ-9 Depression Total Score: 1 01/13/20 12:16 PM EST documented as of this encounter Care Teams Barrel Tester Relationship Specialty Start Date End Date Yi Thompson MD [address] [place] [phone] PCP - General Internal Medicine 08/20/23 documented as of this encounter
--- OUTSIDE RECORDS SUMMARY | 2024-12-15 15:23 | XMS_ITS | Encounter Summary ---
Author Organization [employer] Address [address] [place] [address] [facility] [place] [address] Care Team Providers Care Rail Car Operator Name Role Phone Yi Thompson MD [...] 03/31/2025 9:30 AM EDT Medication Management [facility] [address] [place] [phone] documented as of this encounter Goals Goal [...] EST Narrative 11/30/2024 3:35 PM EST ? [facility] ?[address] ?[place] [address] ?XRay Report ? Signed ? Patient: Sapna Herzog ?MR#: M ?? [id number] ? : 1960 ?Acct:[id number] ? Age/Sex: 63 / F ?ADM Date: 11/28/24 ? Loc: HO.XRAY ? Attending Dr: Deepthi Velazquez MD ? Ordering Physician: Deepthi Velazquez MD ?? Date of Service: 11/28/24 ?? Procedure(s): XR cervical spine 3V ?? Accession Number(s): [id number] ? cc: Deepthi Velazquez MD; Yi Thompson [...] DD/ 1539 ? TD/TT: 11/28/24 1557 ? Photovoltaic Panel Installer: ? Procedure Note Donramirezter, Image - 11/30/2024 [place] [address] XRay Report Signed Patient: Sapna Herzog CMR#: [id number] : 9Acct:[id number] Age/Sex: 63 / FADM Date: 11/28/24 Loc: JINA Attending Dr: Deepthi Velazquez MD Ordering Physician: Deepthi Velazquez MD Date of Service: 11/28/24 Procedure(s): XR cervical spine 3V Accession Number(s): [id number] cc: Deepthi Velazquez MD; Yi Thompson MD [...] 11/30/24 1532 DD/ 1539 TD/TT: 11/28/24 1557 Photovoltaic Panel Installer: [facility] External Provider IMG XR PROCEDURES Final Result * (ABNORMAL) VITAMIN D 25-OH (D2 AND D3) (11/28/2024 3:37 PM EST) Vitamin D, 25-OH, D2 <4 ng/mL [facility] Comment:This test was develo ped and its analytical performancecharacteristics have been determined by [employer]in [place], [place]. It hasnot been cleared or approved by the U.S. Food and DrugAdministration. This assay has been validated pursuantto the CLIA regulations and is used for clinicalpurposes.THIS TEST WAS PERFORMED AT:[employer] [id number] [place] [id number] LEVI MD,PHD Vitamin D, 25-OH, D3 23 ng/mL [facility] Comment:This test was develo ped and its analytical performancecharacteristics have been determined by [employer], [place]. It hasnot been cleared or approved by the U.S. Food and DrugAdministration. This assay has been validated pursuantto the CLIA regulations and is used for clinicalpurposes. Vitamin D, 25-OH, Total 23(A) 30 - 100 ng/mL [facility] Comment:Vitamin D, 25-Hydrox y reports concentrations [...] = 30 ng/mL.For additional information, please refer tohttp://education.Orgenesis/faq/VLR616(This link is being provided for informational/educational purposes only.) 11/28/2024 3:37 PM EST 11/28/2024 3:37 PM EST Generic External Data Provider LAB BLOOD ORDERAB LES Final Result Performing Organization Address [facility]/ZIP Co de Phone Number [facility] [address] [place] [phone] * TSH with Reflex to Free T4 (11/28/2024 3:37 PM EST) TSH reflex Free T4 2.36 0.32 - 4.0 uIU/mL [facility] 11/28/2024 3:37 PM EST 11/28/2024 3:37 PM EST [employer] External Data Provider LAB BLOOD ORDERAB LES Final Result Performing Organization Address [facility] Co de Phone Number [facility] [address] [place] [phone] * Vitamin B12 (Cobalamin) and Folate Panel, Serum (11/28/2024 3:37 PM EST) Vitamin B12 295 200 - 900 pg/mL [facility] Comment:NORMAL 200-900 PG/ML INDETERMINATE 160-199 PG/ML DEFICIENT < 160 PG/ML Folate 11.5 > or = 4.0 ng/mL [facility] Comment:Reference Values:> o r = 4.0 ng/mL< 4.0 ng/mL suggests folate deficiency Methotrexate, aminopterin and folinic acid(leucovorin) are chemotherapeutic agents whose molecularstructures are similar to folate; therefore, the Architectfolate assay cannot be used for patients using these drugs. 11/28/2024 3:37 PM EST 11/28/2024 3:37 PM EST us Generic External Data Provider LAB BLOOD ORDERAB LES Final Result Performing Organization Address City/[facility] Co de Phone Number [facility] [address] [place] [phone] * (ABNORMAL) Comprehensive Metabolic Panel (11/28/2024 3:37 PM EST) Sodium 144 135 - 145 mmol/L [facility] Potassium 4.2 3.3 - 5.1 mmol/L [facility] Chloride 106 96 - 108 mmol/L [facility] Carbon Dioxide 24 22 - 29 mmol/L [facility] Anion Gap 18 12 - 20 [facility] Urea Nitrogen (BUN) 29(H) 9 - 16 mg/dL [facility] Creatinine, Serum 0.76 0.5 - 1.4 mg/dL [facility] Estimated Glomerular Filt Rate >60 [facility] Comment:Chronic Kidney Disea se: Estimated GFR < 60 mL/min/1.18k3Pjxaef Kidney Disease: Estimated GFR < 15 mL/min/1.73m2 Glucose 141(H) 60 - 115 mg/dL [facility] Calcium 9.7 8.4 - 10.2 mg/dL [facility] Bilirubin, Total 0.2 0.0 - 1.0 mg/dL [facility] Aspartate Amino Transferase 22 5 - 31 U/L [facility] Alanine Aminotransferase 20 0 - 31 U/L [facility] Total Protein 8.2(H) 6.5 - 8.0 g/dL [facility] Albumin Level 4.5 3.5 - 5.0 g/dL [facility] Alkaline Phosphatase 74 39 - 117 U/L [facility] 11/28/2024 3:37 PM EST 11/28/2024 3:37 PM EST us Generic External Data Provider LAB BLOOD ORDERAB LES Final Result Performing Organization Address City/[facility]/ZIP Co de Phone Number [facility] [address] [place] [phone] * T4, Free (11/28/2024 3:37 PM EST) [facility] Free T4 (Free Thyroxine) 1.31 0.71 - 1.85 ng/dL [facility] 11/28/2024 3:37 PM EST 11/28/2024 3:37 PM EST Generic External Data Provider LAB BLOOD ORDERAB LES Final Result Performing Organization Address [facility] de Phone Number [facility] [address] [place] [phone] * Sed Rate by Modified Jarodergren (11/28/2024 3:37 PM EST) [facility] Erythrocyte Sedimentation Rate 17 0 - 20 MM/HR [facility] Comment:Patients with polycy themia and many hemoglobin abnormalitiesmay have depressed sed rates whereas patients with anemiamay have elevated sed rates. 11/28/2024 3:37 PM EST 11/28/2024 3:37 PM EST Generic External Data Provider LAB BLOOD ORDERAB LES Final Result Performing Organization Address [facility] de Phone Number [facility] [address] [place] [phone] * (ABNORMAL) CBC auto differential (11/28/2024 3:37 PM EST) [facility] White Blood Count 8.0 4.8 - 10.8 X10*3/uL [facility] Red Blood Count 4.57 4.20 - 5.50 X10*6/uL [facility] Hemoglobin 10.8(L) 12.0 - 16.0 g/dl [facility] Hematocrit 34.5(L) 37.0 - 47.0 % [facility] Mean Corpuscular Volume 75.5(L) 80.0 - 98.0 fL [facility] Mean Corpuscular Hemoglobin 23.6(L) 27.0 - 33.0 pg [facility] Mean Corpuscular HGB Conc 31.3 31.0 - 35.0 g/dl [facility] Red Cell Distribution Width 15.0 11.0 - 16.0 % [facility] Platelet Count 266 160 - 400 X10*3/uL [facility] Mean Platelet Volume 10.5 9.4 - 12.3 fL [facility] Neutrophils Percent Auto 65.8 45 - 73 % [facility] Imm Gran Pct Auto 0.5(H) 0.0 - 0.4 % [facility] Lymphocytes Percent Auto 23.7 20 - 40 % [facility] Monocytes Percent Auto 6.4 2 - 11 % [facility] Eosinophils Percent Auto 2.5 0 - 4 % [facility] Basophils Percent Auto 1.1 0 - 2 % [facility] NRBC Pct Auto 0.0 0.0 - 0.2 /100WBC [facility] Neutrophils Absolute Auto 5.3 2.0 - 8.3 x10*3/uL [facility] Imm Gran Abs Auto 0.04(H) 0.00 - 0.03 X10*3/uL [facility] Lymphocytes Absolute Auto 1.9 1.2 - 4.9 X10*3/uL [facility] Monocytes Absolute Auto 0.5 0.1 - 1.2 X10*3/uL [facility] Eosinophils Absolute Auto 0.2 0.0 - 0.4 X10*3/uL [facility] Basophils Absolute Auto 0.1 0.0 - 0.2 X10*3/uL [facility] NRBC Abs Auto 0.000 0.0 - 0.012 X10*3/uL [facility] 11/28/2024 3:37 PM EST 11/28/2024 3:37 PM EST us Generic External Data Provider LAB BLOOD ORDERAB LES Final Result [facility] [address] [place] [phone] documented in this encounter Visit Diagnoses Not on filedocumented in this encounter Additional Health Concerns Assessment Noted Time PHQ-9 Depression Total Score: 1 01/13/20 24 12:16 PM EST documented as of this encounter Care Teams Rail Car Operator Relationship Specialty Start Date End Date Yi Thompson MD [address] [place] [address] PCP - General Internal Medicine 08/20/23 documented as of this encounter
--- OUTSIDE RECORDS SUMMARY | 2024-12-15 15:23 | XMS_ITS | Encounter Summary ---
Author Organization [employer] Address [address] [place] [phone] Care Team Providers Care Informatics Manager Name Role Phone Yi Thompson MD Primary Care Pro vider Encounter Details Date Type Department Care Team ([facility] st Contact Info) Description 11/06/2024 Orders Only [facility] [address] [place] [address] Provider, MD Lux Social History Tobacco Use Types Packs/Day Years [...] housing situation today? I have radhawesly alvarado 04/13/[address] you [...] 9:30 AM EDT Medication Management [facility] [address] [place], [place] [phone] documented as of this encounter Goals Goal Patient Goal Type Associated Problems Recent Progress Patient-Stated? Author Blood Pressure < 140/90 Blood Pressure 131/77(2023 8:44 AM EST) No Jn Shah Hemoglobin A1c < 7 Result Component 6.8( 8:59 AM EST) No Jn Shah documented as of this encounter Procedures Procedure Name Priority Date/Time Associated Diagnosis Comments HM COLONOSCOPY Routine 11/03/2024 6:36 PM EST documented in this encounter Results * Hm Colonoscopy (11/03/2024 6:36 PM EST) us Historical Provider HEALTH MAINTENANCE Final Result documented in this encounter Visit Diagnoses Not on filedocumented in this encounter Additional Health Concerns Assessment Noted Time PHQ-9 Depression Total Score: 1 01/13/20 24 12:16 PM EST documented as of this encounter Care Teams Informatics Manager Relationship Specialty Start Date End Date Yi Thompson MD [address] [place] [phone] PCP - General Internal Medicine 08/20/23 documented as of this encounter
--- OUTSIDE RECORDS SUMMARY | 2024-12-15 15:23 | XMS_ITS | Encounter Summary ---
Author Organization [employer] Address [address] [place] [phone] Care Team Providers Care Oracle Fusion Developer Name Role Phone Yi Thompson MD Primary Care Pro vider Reason for Visit * Reason Comments Med Change Request Encounter Details Date Type Department Care Team ([facility] st Contact Info) Description 11/08/2023 Refill [facility] [address] [place] [address] [facility] [address] [place] [address] Viral upper respiratory illness Social History Tobacco [...] Description 03/31/2025 9:30 AM EDT Medication Management [facility] [address] [place] [phone] documented as of this encounter Visit Diagnoses Diagnosis Viral upper respiratory illness documented in this encounter Care Teams Oracle Fusion Developer Relationship Specialty Start Date End Date Yi Thompson MD [address] [place] [address] PCP - General Internal Medicine 08/20/23 documented as of this encounter
--- OUTSIDE RECORDS SUMMARY | 2024-12-15 15:23 | XMS_ITS | Clinical Summary ---
Author Organization [employer] Address [address] [place] [phone] Care Team Providers Care Grape Picker Name Role Phone Yi Thompson MD Primary Care Pro vider Allergies Active Allergy Reactions Criticality Noted Date Comments Penicillins Hives High 12/28/2013 Other reaction(s): SWELLING , Unknown Other reaction(s): swelling pt received dose of cefazolin pre-op 07/04. Per CAT Britton, pt tolerated without issue Medications Blood Glucose Monitoring Suppl (FreeStyle [place] Lite) w/Device kit USE DIRECTED 03/24/20 22 [...] complication, without long-term current use of insulin ([facility]) Use 1 by To Skin route [...] complication, without long-term current use of insulin ([facility]) TAKE 1 TABLET BY MOUTH TWICE [...] Consideration for PT once patient returns from [facility] in January. Chest pain at rest [...] 09/17/2023 Forgetfulness 04/15/2023 Overview (08/20/2023): Seen at [facility] on 07/15/2020 for right sided facial [...] for vascular referral once patient returns from [facility] in January. Irritable bowel syndrome with [...] Encounters Date Type Department Care Team Description 12/09/2024 Orders Only GENERIC EXTERNAL DATA DEPARTMENT Provider, Generic External Data 12/08/2024 Refill [facility] [address] [place] [phone] Yi Thompson MD Type 2 diabetes mellitus without complication, without long-term current use of insulin (CMS/HCC) 11/30/2024 Telephone [facility] [address] [place] [phone] Kaitlynn Allison RN Results 11/29/2024 Refill [facility] [address] [place] [address] Yi Thompson MD 11/28/2024 Orders Only GENERIC EXTERNAL DATA DEPARTMENT Provider, Generic External Data 11/20/2024 Orders Only GENERIC EXTERNAL DATA DEPARTMENT Provider, Generic External Data 11/06/2024 Orders Only [facility] [address] [place] [phone] Lux Caballero MD 10/28/2024 9:00 AM EST Office Visit [address] [address] Cathleen Lomax CNP Spondylosis of lumbar region without myelopathy or radiculopathy (Primary Dx); Degeneration of intervertebral disc of lumbar region, unspecified whether pain present; Lumbar radiculopathy; Chronic right-sided low back pain with right-sided sciatica; Sacroiliitis (CMS/HCC); Type 2 diabetes mellitus without complication, without long-term current use of insulin ([facility]); Chronic otitis externa of both ears, unspecified type; Varicose veins of lower extremity, unspecified laterality, unspecified whether complicated 10/28/2024 Refill [facility] [address] [place] [address] Yi Thompson MD 10/20/2024 Orders Only GENERIC EXTERNAL DATA DEPARTMENT Provider, Generic External Data 10/18/2024 Telephone [facility] [address] [place] [address] Anjel Anton MA Chart Prep 10/12/2024 Telephone [facility] [address] [place] [address] Yi hTompson MD ER Follow-up 09/30/2024 Refill [facility] [address] [place] [address] Yi Thompson MD Type 2 diabetes mellitus without complication, without long-term current use of insulin ([facility]) 09/30/2024 Refill [facility] [address] [place] [address] Mary Kay Colon MD Type 2 diabetes mellitus without complication, without long-term current use of insulin ([facility]) 09/19/2024 Orders Only GENERIC EXTERNAL DATA DEPARTMENT Provider, Generic External Data from Last 3 Months Immunizations Name Administration [...] the past 12 months, has t he [employer], gas, oil or water company threatened to [...] Description 03/31/2025 9:30 AM EDT Medication Management [facility] [address] [place] [phone] Health Maintenance Due Date Last Done Comments [...] 12/04/2021, 04/03/2021 Depression Screening 01/13/2025 01/13/2024, 01/13/20 24 SDOH Screening 04/13/2025 04/13/2024 Alcohol/Substance Use Screening 04/26/2025 04/26/2024 Diabetes: Hemoglobin A1C 04/28/2025 024, 05/16/2024, 04/13/2024, Additional history exists Lipid Panel 05/16/2025 05/16/2024, 0 03/2024, 09/08/2023, Additional history exists Tobacco Screening 09/02/2025 09/02/2024 Colonoscopy 11/03/2025 11/03/2024 Colorectal Cancer Screening 11/03/2025 Mammogram 01/13/2026 01/13/2024, 12/18, 01/01/2022, Additional history exists Eye Exam 08/08/2026 08/08/2024, 07/18, 08/08/2024, Additional history exists DTaP/Tdap/Td Vaccines (3 - Td or Tdap) 12/02/2033 12/02/2023, 08/30/2013 Hepatitis B Vaccines Completed 08/09/2014, 04/04/2014, 03/02/2014 Cervical Cancer Screening Discontinued HPV/Cotest Discontinued 10/25/2020 Pap Smear Discontinued 10/25/2020 Pneumococcal Vaccine: 50+ Years Completed 12/02/2023, 08/08/2014 Hepatitis C Screening [...] WHOLE BLOOD Routine 12/09/2024 6:16 AM EST XR CERVICAL SPINE 3V Routine 11/28/2024 3:39 [...] POST MYELOGRAPHY Routine 10/11/2024 8:06 AM EST FL MYELOGRAM SPINE LUMBOSACRAL Routine 10/11/2024 7:45 AM EST US HEAD NECK SOFT TISSUE [...] Recently Relevant to Health Maintenance Results * FL Guidance in OR (12/09/2024 8:24 AM EST) Anatomical Region Laterality Modality X-Ray Angiograph y 12/09/2024 8:24 AM EST Narrative 12/09/2024 2:24 PM EST ? [facility] ?[address] ?[place] [address] ? Fluoroscopy Report ? Signed ? Patient: Fany Radha,Sapna C ?MR#: M ?? [id number] ? : 1960 ?Acct:[id number] ? Age/Sex: 63 / F ?ADM Date: 12/09/24 ? Loc: HO.SSS ? Attending Dr: Jcarlos Gee MD ? Ordering Physician: Jcarlos Gee MD ?? Date of Service: 12/09/24 ?? Procedure(s): FL guidance in OR ?? Accession Number(s): [id number] ? cc: Jcarlos Gee MD; Yi Thompson [...] MD in OV> ?12/09/24 1422 ? DD/ 0824 ? TD/TT: 12/09/24 0842 ? Cruise Agent: ? Procedure Note Lissy, Image - 12/09/[address] [address] Fluoroscopy Report Signed Patient: Sapna Herzog CMR#: M [id number] : 9Acct:[id number] Age/Sex: 63 / FADM Date: 12/09/24 Loc: HO.SSS Attending Dr: Jcarlos Gee MD Ordering Physician: Jcarlos Gee MD Date of Service: 12/09/24 Procedure(s): FL guidance in OR Accession Number(s): [id number] cc: Jcarlos Gee MD; Yi Thompson MD [...] 12/09/24 1422 DD/ 0824 TD/TT: 12/09/24 0842 Cruise Agent: [facility] External Provider IMG IR PROCEDURES Final Result * (ABNORMAL) Glucose, Whole Blood (12/09/2024 6:16 AM EST) Only the most recent of2 resultswithin the time period is included. Glucose, Whole Blood 162(H) 60 - 115 mg/dL [facility] Comment:METER #: [id number] 12/09/2024 6:16 AM EST 12/09/2024 6:19 AM EST us Generic External Data Provider LAB BLOOD ORDERAB LES Final Result [facility] [address] [place] [address] [phone] * XR CERVICAL SPINE 3V (11/28/2024 3:39 PM EST) Anatomical Region Laterality Modality Abdomen Radiographic Criss ging 11/28/2024 3:39 PM EST Narrative 11/30/2024 3:35 PM EST ? [facility] ?[address] ?[place] [address] ?XRay Report ? Signed ? Patient: FanySapna Sy ?MR#: M ?? [id number] ? : 1960 ?Acct:[id number] ? Age/Sex: 63 / F ?ADM Date: 11/28/24 ? Loc: HO.XRAY ? Attending Dr: Deepthi Velazquez MD ? Ordering Physician: Deepthi Velazquez MD ?? Date of Service: 11/28/24 ?? Procedure(s): XR cervical spine 3V ?? Accession Number(s): [id number] ? cc: Deepthi Velazquez MD; Yi Thompson [...] DD/ 1539 ? TD/TT: 11/28/24 1557 ? Cruise Agent: ? Procedure Note Donotuseinterpreter, Image - 11/30/2024 [place] [address] XRay Report Signed Patient: Sapna Herzog CMR#: M [id number] : 9Acct:[id number] Age/Sex: 63 / FADM Date: 11/28/24 Loc: JINA Attending Dr: Deepthi Velazquez MD Ordering Physician: Deepthi Velazquez MD Date of Service: 11/28/24 Procedure(s): XR cervical spine 3V Accession Number(s): [id number] cc: Deepthi Velazquez MD; Yi Thompson MD [...] in OV> 11/30/24 1532 DD/ 1539 TD/TT: 11/28/241556 Cruise Agent: us [facility] External Provider IMG XR PROCEDURES Final Result * (ABNORMAL) VITAMIN D 25-OH (D2 AND D3) (11/28/2024 3:37 PM EST) Vitamin D, 25-OH, D2 <4 ng/mL [facility] Comment:This test was develo ped and its analytical performancecharacteristics have been determined by [employer] [place], [place]. It hasnot been cleared or approved by the U.S. Food and DrugAdministration. This assay has been validated pursuantto the CLIA regulations and is used for clinicalpurposes.THIS TEST WAS PERFORMED AT:[employer] [id number] [place] [id number] LEVI MD,PHD Vitamin D, 25-OH, D3 23 ng/mL [facility] Comment:This test was develo ped and its analytical performancecharacteristics have been determined by [employer] [place], [place]. It hasnot been cleared or approved by the U.S. Food and DrugAdministration. This assay has been validated pursuantto the CLIA regulations and is used for clinicalpurposes. Vitamin D, 25-OH, Total 23(A) 30 - 100 ng/mL [facility] Comment:Vitamin D, 25-Hydrox y reports [...] = 30 ng/mL.For additional information, please refer tohttp://education.Wiziva/faq/SOC405(This link is being provided for informational/educational purposes only.) 11/28/2024 3:37 PM EST 11/28/2024 3:37 PM EST us Generic External Data Provider LAB BLOOD ORDERAB LES Final Result Performing Organization Address [facility]/ZIP Co de Phone Number [facility] [address] [place] [phone] * Vitamin B12 (Cobalamin) and Folate Panel, Serum (11/28/2024 3:37 PM EST) Vitamin B12 295 200 - 900 pg/mL [facility] Comment:NORMAL 200-900 PG/ML INDETERMINATE 160-199 PG/ML DEFICIENT < 160 PG/ML Folate 11.5 > or = 4.0 ng/mL [facility] Comment:Reference Values:> o r = 4.0 ng/mL< 4.0 ng/mL suggests folate deficiency Methotrexate, aminopterin and folinic acid(leucovorin) are chemotherapeutic agents whose molecularstructures are similar to folate; therefore, the Architectfolate assay cannot be used for patients using these drugs. 11/28/2024 3:37 PM EST 11/28/2024 3:37 PM EST Generic External Data Provider LAB BLOOD ORDERAB LES Final Result Performing Organization Address [facility] de Phone Number [facility] [address] [place] [phone] * TSH with Reflex to Free T4 (11/28/2024 3:37 PM EST) TSH reflex Free T4 2.36 0.32 - 4.0 uIU/mL [facility] 11/28/2024 3:37 PM EST 11/28/2024 3:37 PM EST Generic External Data Provider LAB BLOOD ORDERAB LES Final Result Performing Organization Address [facility] Co de Phone Number [facility] [address] [place] [phone] * (ABNORMAL) CBC auto differential (11/28/2024 3:37 PM EST) Only the most recent of2 resultswithin the time period is included. White Blood Count 8.0 4.8 - 10.8 X10*3/uL [facility] Red Blood Count 4.57 4.20 - 5.50 X10*6/uL [facility] Hemoglobin 10.8(L) 12.0 - 16.0 g/dl [facility] Hematocrit 34.5(L) 37.0 - 47.0 % [facility] Mean Corpuscular Volume 75.5(L) 80.0 - 98.0 fL [facility] Mean Corpuscular Hemoglobin 23.6(L) 27.0 - 33.0 pg [facility] Mean Corpuscular HGB Conc 31.3 31.0 - 35.0 g/dl [facility] Red Cell Distribution Width 15.0 11.0 - 16.0 % [facility] Platelet Count 266 160 - 400 X10*3/uL [facility] Mean Platelet Volume 10.5 9.4 - 12.3 fL [facility] Neutrophils Percent Auto 65.8 45 - 73 % [facility] Imm Gran Pct Auto 0.5(H) 0.0 - 0.4 % [facility] Lymphocytes Percent Auto 23.7 20 - 40 % [facility] Monocytes Percent Auto 6.4 2 - 11 % [facility] Eosinophils Percent Auto 2.5 0 - 4 % [facility] Basophils Percent Auto 1.1 0 - 2 % [facility] NRBC Pct Auto 0.0 0.0 - 0.2 /100WBC [facility] Neutrophils Absolute Auto 5.3 2.0 - 8.3 x10*3/uL [facility] Imm Gran Abs Auto 0.04(H) 0.00 - 0.03 X10*3/uL [facility] Lymphocytes Absolute Auto 1.9 1.2 - 4.9 X10*3/uL [facility] Monocytes Absolute Auto 0.5 0.1 - 1.2 X10*3/uL [facility] Eosinophils Absolute Auto 0.2 0.0 - 0.4 X10*3/uL [facility] Basophils Absolute Auto 0.1 0.0 - 0.2 X10*3/uL [facility] NRBC Abs Auto 0.000 0.0 - 0.012 X10*3/uL [facility] 11/28/2024 3:37 PM EST 11/28/2024 3:37 PM EST us Generic External Data Provider LAB BLOOD ORDERAB LES Final Result Performing Organization Address [facility] Co de Phone Number [facility] [address] [place] [phone] * Sed Rate by Modified Westergren (11/28/2024 3:37 PM EST) Erythrocyte Sedimentation Rate 17 0 - 20 MM/HR [facility] Comment:Patients with polycy themia and many hemoglobin abnormalitiesmay have depressed sed rates whereas patients with anemiamay have elevated sed rates. 11/28/2024 3:37 PM EST 11/28/2024 3:37 PM EST us Generic External Data Provider LAB BLOOD ORDERAB LES Final Result Performing Organization Address [facility] Phone Number [facility] [address] [place] [phone] * T4, Free (11/28/2024 3:37 PM EST) Free T4 (Free Thyroxine) 1.31 0.71 - 1.85 ng/dL [facility] 11/28/2024 3:37 PM EST 11/28/2024 3:37 PM EST Generic External Data Provider LAB BLOOD ORDERAB LES Final Result Performing Organization Address [facility] Co de Phone Number [facility] [address] [place] [phone] * (ABNORMAL) Comprehensive Metabolic Panel (11/28/2024 3:37 PM EST) Only the most recent of2 resultswithin the time period is included. Sodium 144 135 - 145 mmol/L [facility] Potassium 4.2 3.3 - 5.1 mmol/L [facility] Chloride 106 96 - 108 mmol/L [facility] Carbon Dioxide 24 22 - 29 mmol/L [facility] Anion Gap 18 12 - 20 [facility] Urea Nitrogen (BUN) 29(H) 9 - 16 mg/dL [facility] Creatinine, Serum 0.76 0.5 - 1.4 mg/dL [facility] Estimated Glomerular Filt Rate >60 [facility] Comment:Chronic Kidney Disea se: Estimated GFR < 60 mL/min/1.99g9Cnxizu Kidney Disease: Estimated GFR < 15 mL/min/1.73m2 Glucose 141(H) 60 - 115 mg/dL [facility] Calcium 9.7 8.4 - 10.2 mg/dL [facility] Bilirubin, Total 0.2 0.0 - 1.0 mg/dL [facility] Aspartate Amino Transferase 22 5 - 31 U/L [facility] Alanine Aminotransferase 20 0 - 31 U/L [facility] Total Protein 8.2(H) 6.5 - 8.0 g/dL [facility] Albumin Level 4.5 3.5 - 5.0 g/dL [facility] Alkaline Phosphatase 74 39 - 117 U/L [facility] 11/28/2024 3:37 PM EST 11/28/2024 3:37 PM EST us Generic External Data Provider LAB BLOOD ORDERAB LES Final Result [facility] [address] [place] [phone] * High Sensitivity Troponin I (11/20/2024 3:04 PM EST) Only the most recent of2 resultswithin the time period is included. TROPONIN I HIGH SENSITIVITY 4.7 <3.5 - 17.0 ng/L [facility] Comment:The [place] high sens itivity Troponin-I results should beused in conjunction with other diagnostic information suchas ECG, clinical observations and information, and patientsymptoms to aid in the diagnosis of NH. 11/20/2024 3:04 PM EST 11/20/2024 3:08 PM EST us Generic External Data Provider LAB BLOOD ORDERAB LES Final Result Performing Organization Address City/State/[facility] Co de Phone Number [facility] [address] [place] [phone] * XR Chest 1 View (11/20/2024 2:07 PM EST) Anatomical Region Laterality Modality Chest Radiographic Criss ging 11/20/2024 2:07 PM EST Narrative 11/20/2024 2:09 PM EST ? [facility] ?[address] ?[place] [address] ?XRay Report ? Signed ? Patient: Sapna Herzog ?MR#: M ?? [id number] ? : 1960 ?Acct:[id number] ? Age/Sex: 63 / F ?ADM Date: 11/20/24 ? Loc: HO.ED ? Attending Dr: ? Ordering Physician: Rocael Pearce ?? Date of Service: 11/20/24 ?? Procedure(s): XR chest 1V ?? Accession Number(s): [id number] ? cc: Rocael Pearce; Yi Thompson MD [...] signed by Cindy Austin MD in OV> ?11/20/248 ? DD/ ? TD/TT: 11/20/247 ? Cruise Agent: ? Procedure Note Donotuseinterpreter, Image - 11/20/[address] [address] XRay Report Signed Patient: Sapna Herzog CMR#: M [id number] : 9Acct:[id number] Age/Sex: 63 / FADM Date: 11/20/24 Loc: HO.ED Attending Dr: Ordering Physician: Rocael Pearce Date of Service: 11/20/24 Procedure(s): XR chest 1V Accession Number(s): [id number] cc: Rocael Pearce; Yi Thompson MD CLINICAL [...] Austin MD in OV> 11/20/24 1408 DD/ 1407 TD/TT: 11/20/24 1407 Cruise Agent: [facility] External Provider IMG XR PROCEDURES Edited Result - Final * Urinalysis, Complete, with Reflex to Culture (11/20/2024 1:32 PM EST) Color Urine Yellow [facility] Appearance Urine Clear [facility] PH 6.0 5.0 - 9.0 [facility] Glucose Urine UA Negative Negative mg/dL [facility] Urine Blood Trace Negative [facility] Specific [place] - Urine 1.010 1.005 - 1.025 [facility] Urine Protein Negative Neg-Trace mg/dL [facility] Urine Ketones Negative Negative mg/dL [facility] Nitrite Urine Negative Negative [facility] Leukocyte Esterase Urine Negative Negative [facility] RBC Urine 0-2 0 - 2 /HPF [facility] Urine WBC 0-5 0 - 5 /HPF [facility] Urine Squamous Epithelial Cell 0-2 0 - 2 /HPF [facility] Urine Bacteria None Seen None Seen [facility] Hyaline Casts, Urine 0-2 0 - 2 /LPF [facility] 11/20/2024 1:32 PM EST 11/20/2024 1:36 PM EST Narrative [facility] - 11/20/2024 1:48 PM EST 1331Urine, Clean Catch us Generic External Data Provider LAB URINE ORDERAB LES Final Result [facility] [address] [place] [phone] * SARS-CoV-2 RNA, Influenza A/B, and RSV RNA, Ql NAAT (11/20/2024 12:03 PM EST) Influenza A PCR NEGATIVE Negative [facility] Influenza B PCR NEGATIVE Negative [facility] Resp Syncy Virus RNA Qual PCR NEGATIVE Negative [facility] SARS COV2 PCR NEGATIVE Negative [facility] Comment:All test results mus [...] use by authorized laboratories.Testing performed on the [employer] GeneXpert utilizingreal-time RT-PCR.All SARS CoV2 and positive influenza A/B results arereported to [facility]. 11/20/2024 12:0 3 PM EST 11/20/2024 12:05 PM EST Generic External Data Provider LAB MICROBIOLOGY - GENERAL ORDERABLES Final Result Performing Organization Address [facility] Co de Phone Number [facility] [address] [place] [phone] * D Dimer High Sensitivity (11/20/2024 12:02 PM EST) Pathologist [facility] D Dimer High Sensitivity <150 NG/ML [facility] Comment:D-DIMER HS REFERENCE RANGENote: Our [...] ORDERAB LES Final Result Performing Organization Address [facility] Co de Phone Number [facility] [address] [place] [phone] * Partial Thromboplastin Time, Activated (APTT) (11/20/2024 12:02 PM EST) Pathologist [facility] Partial Thromboplastin Time 35.0 26.0 - 36.8 SEC [facility] Comment:For information rega rding the monitoring of direct thrombininhibitors, please refer to Pharmacy. 11/20/2024 12:0 2 PM EST 11/20/2024 12:05 PM EST Generic External Data Provider LAB BLOOD ORDERAB LES Final Result Performing Organization Address [facility] Co de Phone Number [facility] [address] [place] [phone] * Prothrombin Time-INR (11/20/2024 12:02 PM EST) Prothrombin Time 11.5 10.9 - 12.4 SEC [facility] INTERNATIONAL NORM RATIO 1.0 0.9 - 1.1 [facility] Comment:INTERNATIONAL NORMAL IZED RATIO (INR) [...] ORDERAB LES Final Result Performing Organization Address [facility]/ZIP Co de Phone Number [facility] [address] [place] [phone] * B Type Natriuretic Peptide (BNP) (11/20/2024 12:02 PM EST) Pathologist [facility] B Type Natriuretic Peptide 16 <100 pg/mL [facility] Comment:For those patients w ho are being treated with Natrecor(nesiritide, recombinant BNP), BNP testing should beperformed at least two hours post treatment in order toensure that only endogenous levels of BNP are detected. 11/20/2024 12:0 2 PM EST 11/20/2024 12:05 PM EST Generic External Data Provider LAB BLOOD ORDERAB LES Final Result Performing Organization Address [facility]/ZIP Co de Phone Number [facility] [address] [place] [phone] * Hm Colonoscopy (11/03/2024 6:36 PM EST) Historical Provider HEALTH MAINTENANCE Final Result * (ABNORMAL) POCT HGB A1C (10/28/2024 8:59 AM EST) Pathologist [facility] Hemoglobin A1C 6.8(A) 4.0 - 6.0 % QC Media Lot # [id number] Lot# Expiration Date ,026 Blood 10/28/2024 8:59 AM EST [facility] POINT OF CARE TEST ENTER/ EDIT ORDERABLES Final Result * POCT Glucose (10/28/2024 8:56 AM EST) Pathologist [facility] Glucose Blood, POC 119 60 - 200 mg/dL QC Media Lot # [id number] Lot# Expiration Date [id number] Blood Capillary blood specimen / Unknown 10/28/2024 8:56 AM EST [facility] POINT OF CARE TEST ENTER/ EDIT ORDERABLES Final Result * CT lumbar post myelography (10/11/2024 8:06 AM EST) Anatomical Region Laterality Modality Spine, L-spine Computed Tomogra phy 10/11/2024 8:06 AM EST Narrative 10/26/2024 12:35 PM EST ? [facility] ?[address] ?[place] [address] ? CT Scan Report ? Signed ? Patient: Fany Garcia,Sapna C ?MR#: M ?? [id number] ? : 1960 ?Acct:[id number] ? Age/Sex: 63 / F ?ADM Date: 10/11/24 ? Loc: HO.SSS ? Attending Dr: Jcarlos Gee MD ? Ordering Physician: Jcarlos Gee MD ?? Date of Service: 10/11/24 ?? Procedure(s): CT lumbar post myelography ?? Accession Number(s): [id number] ? cc: Jcarlos Gee MD; Yi Thompson [...] Exam submitted for review 10/26/2024 11:21 AM NURSE TRANSPLANT. ? FINDINGS: ? STUDY QUALITY: ?? -Suboptimal [...] LUMBOSACRAL JUNCTION: ?? -Normal. There are 5 [id number] lumbar-type vertebral bodies. ? VERTEBRAL BODIES/BONE: ?? [...] Melchor MD ??10/26/2024 12:32 PM EST RP ? Dictated By: ?Guanakito Melchor MD ? Signed By: ?<Electronically signed by Guanakito Melchor MD in OV> ?10/26/24 1232 ? DD/ 0806 ? TD/TT: 10/11/24 0820 ? Cruise Agent: ? Procedure Note Donotuseinterpreter, Image - 10/26/[address] [address] [address] Scan Report Signed Patient: Sapna Herzog CMR#: M [id number] : 9Acct:[id number] Age/Sex: 63 / FADM Date: 10/11/24 Loc: .[facility] Attending Dr: Jcarlos Gee MD Ordering Physician: Jcarlos Gee MD Date of Service: 10/11/24 Procedure(s): CT lumbar post myelography Accession Number(s): [id number] cc: Jcarlos Gee MD; Yi Thompson MD [...] Exam submitted for review 10/26/2024 11:21 AM NURSE TRANSPLANT. FINDINGS: STUDY QUALITY: -Suboptimal study quality due to poor intrathecal mixing of intrathecal contrast, with suboptimal contrast opacification of L3-L5, and dense pooling contrast in the dorsal thecal sac at L5-S1. This limits sensitivity of the study. CORONAL ALIGNMENT: -Minimal levoconvex scoliosis, apex at L4. SAGITTAL ALIGNMENT: - Normal lordosis. Normal alignment without subluxations. LUMBOSACRAL JUNCTION: -Normal. There are 5 uag-gjk-apqgcai lumbar-type vertebral bodies. VERTEBRAL BODIES/BONE: -Well maintained [...] Guanakito Melchor MD 10/26/2024 12:32 PM EST RP Dictated By: Guanakito Melchor MD Signed By: <Electronically signed by Guanakito Melchor MD in OV> 10/26/24 1232 DD/ 0806 TD/TT: 10/11/24 0820 Cruise Agent: [facility] External Provider IMG CT PROCEDURES Edited Result - Final * FL myelogram spine lumbosacral (10/11/2024 7:45 AM EST) Anatomical Region Laterality Modality C-spine Radiographic Criss ging 10/11/2024 7:45 AM EST Narrative 12/14/2024 10:36 AM EST ? [facility] ?[address] ?[place] [address] ? Fluoroscopy Report ? Signed ? Patient: Sapna Herzog ?MR#: M ?? [id number] ? : 1960 ?Acct:[id number] ? Age/Sex: 63 / F ?ADM Date: 10/11/24 ? Loc: HO.SSS ? Attending Dr: Jcarlos Gee MD ? Ordering Physician: Jcarlos Gee MD ?? Date of Service: 10/11/24 ?? Procedure(s): FL myelogram spine lumbosacral ?? Accession Number(s): [id number] ? cc: Jcarlos Gee MD; Yi Thompson MD ? EXAMINATION: ?? IR LUMBAR MYELOGRAPHY ? CLINICAL INFORMATION: ?? Spondylosis lumbar region, lumbago with sciatica right. ? COMPARISON: ?? None available. ? TECHNIQUE: ?? Fluoroscopy and spot films provided. ? FINDINGS: ?? A needle is present overlying the L4 vertebral body and contrast has ?? been injected into the thecal sac, presumably for myelography. A spinal ?? stimulation catheter is partially visualized. ? FLUOROSCOPY TIME: ?? 0.2 minutes ? DOSE AREA PRODUCT: ?? 0.0303 mGy-m2 ? FL/FL myelogram spine lumbosacral ?? IMPRESSION: ?? Fluoroscopy provided for myelography. ? Electronically signed by: ??Aaron Florian MD ??12/14/2024 10:33 AM EST ?? RP ? Dictated By: ?Aaron Florian MD ? Signed By: ?<Electronically signed by Aaron Florian MD in OV> ? 12/14/24 1033 ? DD/ 0745 ? TD/TT: 10/11/24 0804 ? Cruise Agent: SS ? Procedure Note Donramirezter, Image - 12/14/2024 [place] [address] Fluoroscopy Report Signed Patient: Sapna Herzog CMR#: M [id number] : 1960cct:[id number] Age/Sex: 63 / FADM Date: 10/11/24 Loc: HO.[facility] Attending Dr: Jcarlos Gee MD Ordering Physician: Jcarlos Gee MD Date of Service: 10/11/24 Procedure(s): FL myelogram spine lumbosacral Accession Number(s): [id number] cc: Jcarlos Gee MD; Yi Thompson MD EXAMINATION: IR LUMBAR MYELOGRAPHY CLINICAL INFORMATION: Spondylosis lumbar region, lumbago with sciatica right. COMPARISON: None available. TECHNIQUE: Fluoroscopy and spot films provided. FINDINGS: A needle is present overlying the L4 vertebral body and contrast has been injected into the thecal sac, presumably for myelography. A spinal stimulation catheter is partially visualized. FLUOROSCOPY TIME: 0.2 minutes DOSE AREA PRODUCT: 0.0303 mGy-m2 FL/FL myelogram spine lumbosacral IMPRESSION: Fluoroscopy provided for myelography. Electronically signed by: Aaron Florian MD 12/14/2024 10:33 AM EST Dictated By: Aaron Florian MD Signed By: <Electronically signed by Aaron Florian MD in OV> 12/14/24 1033 DD/ 0745 TD/TT: 10/11/24 0804 Cruise Agent: CHELSEY [facility] Exter nal Provider IMG FLUOROSCOPY PROCEDURES Edited Result - Final * US Head Neck Soft Tissue (10/07/2024 12:45 PM EST) Anatomical Region Laterality Modality Head, Neck Ultrasound 10/07/2024 12:4 5 PM EST Narrative 11/04/2024 9:02 AM EST ? [facility] ?[address] ?[place] [address] ? Ultrasound Report ? Signed ? Patient: Fany Garcia,Sapna C ?MR#: M ?? [id number] ? : 1960 ?Acct:[id number] ? Age/Sex: 63 / F ?ADM Date: 10/07/24 ? Loc: HO.US ? Attending Dr: Ashley Smiley MD ? Ordering Physician: Ashley Smiley MD ?? Date of Service: 10/07/24 ?? Procedure(s): US soft tiss head and/or neck ?? Accession Number(s): [id number] ? cc: Ashley Smiley MD; Yi Thompson [...] DD/ 1245 ? TD/TT: 10/07/24 1305 ? Cruise Agent: ? Procedure Note Donotuseinterpreter, Image - 11/04/[address] [address] Ultrasound Report Signed Patient: Sapna Herzog CMR#: M [id number] : 9Acct:[id number] Age/Sex: 63 / FADM Date: 10/07/24 Loc: HO.US Attending Dr: Ashley Smiley MD Ordering Physician: Ashley Smiley MD Date of Service: 10/07/24 Procedure(s): US soft tiss head and/or neck Accession Number(s): [id number] cc: Ashley Smiley MD; Yi Thompson MD [...] 11/04/24 0900 DD/ 1245 TD/TT: 10/07/24 1305 Cruise Agent: [facility] External Provider IMG US PROCEDURES Final Result * Culture, Urine, Routine (09/19/2024 9:29 AM EST) Urine Urine specimen obtained by clean catch procedure / Unknown 09/19/2024 9:29 AM EST 09/19/2024 4:38 PM EST Comment:UACC Narrative [facility] - 09/21/2024 10:31 AM EST Urine Culture Report Result Urine Culture > 100,000 cfu/ml Urine Culture Mixed bacterial chun characteristic of Urine Culture urogenital contamination. Specimen Source: Urine clean catch Generic External Data Provider LAB MICROBIOLOGY - GENERAL ORDERABLES Final Result [facility] [address] [place] [phone] * Lipid Panel, Standard (05/16/2024 11:43 AM EDT) Triglycerides 85 <150 mg/dL [facility] Comment:Desirable Triglyceri de: less than 150 mg/dLBorderline High Triglyceride 150-199 mg/dLHigh Triglyceride: 200-499 mg/dLVery High Triglyceride: greater than or equal to 5OO mg/dL Cholesterol 124 <200 mg/dL [facility] Comment:Desirable Cholestero l: less than 200 mg/dLBorderline High Cholesterol: 200-239 mg/dLHigh Cholesterol: greater than 239 mg/dL LDL Cholesterol Calculated 62 <100 mg/dL [facility] Comment:Desirable LDL: less than 100 mg/dLNear Optimal/Above Optimal LDL: 110- 129 mg/dLBorderline High LDL: 130-159 mg/dLHigh LDL: 160-189 mg/dLVery High LDL: greater than or equal to 190 mg/dL HDL Cholesterol 45 >40 mg/dL [facility] Comment:Desirable HDL: great er than 40 mg/dL Note: This HDL assay may give artificially low results in patients with liver disease. Blood Venous blood specimen / Unknown 05/16/2024 11:43 AM EDT 05/16/2024 11:49 AM EDT Yi Cleary MD LAB BLOOD ORDERAB LES Final Result [facility] [address] [place] [address] [phone] * BI US Breast Limited Left (01/13/2024 2:35 PM EST) Anatomical Region Laterality Modality Breast Left Ultrasound 01/13/2024 2:35 PM EST Narrative 01/13/2024 2:46 PM EST ? [facility] ? [address] ?[place] [address] ? Ultrasound Report ? Signed ? Patient: Fany RadhaSapna ?MR#: M ?? [id number] ? : 1960 ?Acct:[id number] ? Age/Sex: 63 / F ?ADM Date: 01/11/24 ? Loc: HO.MAMMO ? Attending Dr: Tamie Johnson MD ? Ordering Physician: Yi Thompson MD ?? Date of Service: 01/13/24 ?? Procedure(s): US breast LT limited mamm only ?? Accession Number(s): [id number] ? cc: Yi Thompson MD ? EXAMINATION: [...] by Guanakito Melchor MD in OV> ?01/13/24 144 ? DD/ 34 ? TD/TT: ? Cruise Agent: ? Procedure Note Lissy, Rocio - 01/13/2024 [facility] [address] [place] [address] Dr. [place], [place] [address] Ultrasound Report Signed Patient: Sapna Herzog CMR#: M [id number] : 9Acct:[id number] Age/Sex: 63 / FADM Date: 01/11/24 Loc: HO.MAMMO Attending Dr: Tamie Johnson MD Ordering Physician: Yi Thompson MD Date of Service: 01/13/24 Procedure(s): US breast LT limited mamm only Accession Number(s): [id number] cc: Yi Thompson MD EXAMINATION: MM DIAGNOSTIC [...] in OV> 01/13/24 1442 DD/ 1435 TD/TT: Cruise Agent: us Yi Cleary MD IMG US PROCEDURES Final Result * Albumin, Random Urine W/Creatinine (01/12/2024 3:10 PM EST) Creatinine, Urine 31.68 mg/dL [facility] Microalbumin Urine 5.0 mg/L [facility] Microalbum Creatinine Ratio Ur 15.7 <30 ug/mg cr [facility] Comment:Albumin/Creatinine R atio Reference Ranges: Normal: < 30 ug/mg creatinine Microalbuminuria: 30 - 300 ug/mg creatinineClinical Albuminuria: > 300 ug/mg creatinine 01/12/2024 3:10 PM EST 01/12/2024 4:41 PM EST us Yi Cleary MD LAB URINE ORDERAB LES Final Result [facility] [address] [place] [address] [phone] * Hepatitis C Antibody with Reflex to HCV, RNA, Quantitative, Real-Time PCR (01/12/2024 8:56 AM EST) Hepatitis C Antibody Nonreactive Nonreactive [facility] Comment:Antibodies to HCV no t detected; does not exclude early acuteHCV infection. Blood Venous blood specimen / Unknown 01/12/2024 8:56 AM EST 01/12/2024 11:12 AM EST us Yi Cleary MD LAB BLOOD ORDERAB LES Final Result Performing Organization Address [facility]/ZIP Co de Phone Number [facility] [address] [place] [address] [phone] * THINPREP PAP (10/25/2020 10:02 AM EST) Clinical Information: None given [facility] [...] historic and ?? current clinical information. ?? Field Education Director : SEE COMMENT [facility] Comment: QUIN[place], CT(ASCP) CT screening location: [address] ??[address] Interpretation/R esult: Negative for intraepithelial lesion or malignancy. [facility] LMP: NONE GIVEN [facility] Prev. BX: NONE GIVEN [facility] Prev. PAP: NONE GIVEN [facility] SOURCE: None given [facility] Statement Of Adequacy: SEE COMMENT [facility] Comment: Satisfactory for evaluation. Endocervical/transformation zone component present. 10/25/2020 10:0 2 AM EST us Kika Haney CNM LAB PATHOLOGY ORDERABLES Final Result Performing Organization Address City/[facility]/ZIP Co de Phone Number [facility] [address] * HPV mRNA E6/E7 (10/25/2020 10:02 AM EST) HPV nRNA E6/E7 Not Detected Not Detected [facility] Comment: This test was performed using the APTIMA HPV Assay ([employer] This assay detects E6/E7 viral messenger RNA (mRNA) from 14 high-risk HPV types (16,18,31,33,35,39,45,51,52,56,58,59,66,68). ?? The analytical performance characteristics of this assay have been determined by [employer]. The modifications have not been cleared or approved by the FDA. This assay has been validated pursuant to the CLIA regulations and is used for clinical purposes. 10/25/2020 10:0 2 AM EST us Kika CADET LAB BLOOD ORDERABLES Cammy hines Result [facility] [address] from Last 3 Months or Most Recently Relevant to Health Maintenance Care Teams Grape Picker Relationship Specialty Start Date End Date Yi Thompson MD [address] [place] [phone] PCP - General Internal Medicine 08/20/23
--- OUTSIDE RECORDS SUMMARY | 2024-12-15 15:23 | XMS_ITS | Encounter Summary ---
Author Organization [employer] [facility] Address [address] [place] [address] Care Team Providers Care Precision Honing Machine Operator Name Role Phone Juliet Bird [facility] Primary Care Provider [phone]- [phone] Yi Thompson MD Primary Care Pro vider Reason for Visit * Reason Comments Med Refill Encounter Details Date Type Department Care Team (Late Contact Info) Description 01/28/2023 Refill [facility] [address] [place] [address] [facility] [address] [place], [place] [phone] Primary hypertension Social History Tobacco Use Types [...] 9:30 AM EDT Medication Management [facility] [address] [place] [address] documented as of this encounter Visit Diagnoses Diagnosis Primary hypertension Unspecified essential hypertension documented in this encounter Care Teams Precision Honing Machine Operator Relationship Specialty Start Date End Date Juliet Bird FNP PCP - General Family Medicine 01/22/23 08/19/23 Yi Thompson MD [address] [place] [phone] PCP - General Internal Medicine 08/20/23 documented as of this encounter
--- OUTSIDE RECORDS SUMMARY | 2024-12-15 15:23 | XMS_ITS | Encounter Summary ---
Author Organization [employer] Address [address] [place] [address] Care Team Providers Care Ecological Economist Name Role Phone Yi Thompson MD Primary Care Pro vider Reason for Visit * Reason Onset Date Comments Results 11/30/2024 Encounter Details Date Type Department Care Team ([facility] Contact Info) Description 11/30/2024 Telephone [facility] MEDICINE [address] [place] [address] Kaitlynn Allison RN Results Social History Tobacco [...] AM EST Telephone call to pt using [employer] cigarette maker #[id number]. Advised pt that another doctor ordered labs recently that showed decrease in hemoglobin and that covering provider for Dr Shaver recommends checking hemoglobin levels again in 4- 6 weeks (mid to late December) Advised pt that she can go to [facility] lab or [facility] lab, pt stated she will go to [facility] lab. No further questions at this time. [...] Description 03/31/2025 9:30 AM EDT Medication Management [facility] MEDICINE [address] [place] [address] Scheduled Orders Name Type Priority Associated Diagnoses [...] documented as of this encounter Care Teams Ecological Economist Relationship Specialty Start Date End Date Yi Thompson MD [address] [place] [address] PCP - General Internal Medicine 08/20/23 documented as of this encounter
--- OUTSIDE RECORDS SUMMARY | 2024-12-15 15:23 | XMS_ITS | Encounter Summary ---
Author Organization [employer] Address [address] [place] [address] Care Team Providers Care Operators School Manager Name Role Phone Yi Thompson MD Primary Care Pro vider Reason for Visit * Reason Comments Med Refill Encounter Details Date Type Department Care Team (Late st Contact Info) Description 06/02/2024 Refill [facility]INE [address] [place] [address] Yi Thompson MD [address] [place] [address] Social History Tobacco Use Types Packs/Day Years [...] AM EDT Medication Management [facility] [address] [place] [address] documented as of this encounter Goals Goal [...] documented as of this encounter Care Teams Operators School Manager Relationship Specialty Start Date End Date Yi Thompson MD [address] [place] [address] PCP - General Internal Medicine 08/20/23 documented as of this encounter
--- OUTSIDE RECORDS SUMMARY | 2024-12-15 15:23 | XMS_ITS | Encounter Summary ---
Author Organization [employer] Address [address] [place] [address] Care Team Providers Care Mascara Molder Name Role Phone Yi Thompson MD Primary Care Pro vider Reason for Visit * Reason Onset Date Comments Nurse Triage 02/15/2024 Encounter Details Date Type Department Care Team ([facility] st Contact Info) Description 02/15/2024 Telephone [facility] MEDICINE [address] [place] [address] Yi Thompson MD [address] [place] [address] Nurse Triage Social History Tobacco Use Types [...] 02/15/2024 12:44 PM EDT Triage call with Angelina Check Services Clerk [place] [id number] Pt reports headache frontal and back of [...] 400pm. Pt is advised to come to [facility] which is open till 8pm this evening. [...] Tingling sensation The caller accepted this outcome Swedish speaker documented in this encounter Plan of Treatment Upcoming Encounters Date Type Department Care Team (Late st Contact Info) Description 03/31/2025 9:30 AM EDT Medication Management [facility] MEDICINE [address] [place] [address] documented as of this encounter Visit Diagnoses Not on filedocumented in this encounter Additional Health Concerns Assessment Noted Time PHQ-9 Depression Total Score: 1 01/13/20 24 12:16 PM EST documented as of this encounter Care Teams Mascara Molder Relationship Specialty Start Date End Date Yi Thompson MD [address] [place] [address] PCP - General Internal Medicine 08/20/23 documented as of this encounter
--- OUTSIDE RECORDS SUMMARY | 2024-12-15 15:23 | XMS_ITS | Encounter Summary ---
Author Organization [employer] Address [address] [place] [address] Care Team Providers Care Erp Implementation Consultant Name Role Phone Yi Thompson MD Primary Care Pro vider Reason for Visit * Reason Comments Med Refill Encounter Details Date Type Department Care Team (Late st Contact Info) Description 09/12/2024 Refill [facility] MEDICINE [address] [place] [address] Yi Thompson MD [address] [place] [address] Type 2 diabetes mellitus without complication, without long-term current use of insulin ([facility]) Social History Tobacco Use Types Packs/Day Years [...] Description 03/31/2025 9:30 AM EDT Medication Management [facility] [address] [place] [address] documented as of this encounter Goals Goal Patient Goal Type Associated Problems Recent Progress Patient-Stated? Author Blood Pressure < 140/90 Blood Pressure 131/77(2023 8:44 AM EST) No Jn Shah Hemoglobin A1c < 7 Result Component 6.8( 8:59 AM EST) No Jn Shah documented as of this encounter Visit Diagnoses Diagnosis Type 2 diabetes mellitus without complication, without long-term current use of insulin ([facility]) documented in this encounter Additional Health Concerns Assessment Noted Time PHQ-9 Depression Total Score: 1 01/13/20 24 12:16 PM EST documented as of this encounter Care Teams Erp Implementation Consultant Relationship Specialty Start Date End Date Yi Thompson MD [address] [place] [address] PCP - General Internal Medicine 08/20/23 documented as of this encounter
--- OUTSIDE RECORDS SUMMARY | 2024-12-15 15:23 | XMS_ITS | Encounter Summary ---
Author Organization [employer] Address [address] [place] [address] Care Team Providers Care Commercial Account Officer Name Role Phone Yi Thompson MD Primary Care Pro vider Reason for Visit * Reason Comments Med Refill Encounter Details Date Type Department Care Team (Late st Contact Info) Description 09/15/2023 Refill [facility] MEDICINE [address] [place] [phone] Juliet Bird FNP [address] [place] [address] Dept [place] [address] Primary hypertension; Type 2 diabetes mellitus without complication, without long-term current use of insulin ([facility]) Social History Tobacco Use Types Packs/Day Years [...] Description 03/31/2025 9:30 AM EDT Medication Management [facility] MEDICINE [address] [place] [address] documented as of this encounter Visit Diagnoses Diagnosis Primary hypertension Unspecified essential hypertension Type 2 diabetes mellitus without complication, without long-term current use of insulin ([facility]) documented in this encounter Care Teams Commercial Account Officer Relationship Specialty Start Date End Date Yi Thompson MD [address] [place] [address] PCP - General Internal Medicine 08/20/23 documented as of this encounter
--- OUTSIDE RECORDS SUMMARY | 2024-12-15 15:24 | XMS_ITS | Encounter Summary ---
Author Organization [employer] Address [address] [place] [address] Care Team Providers Care Cut Pressman Name Role Phone Juliet Bird Primary Care Provider +1- [phone] Yi Thompson MD Primary Care Pro vider Reason for Visit * Reason Onset Date Comments triage 02/27/2023 Encounter Details Date Type Department Care Team (Late st Contact Info) Description 02/27/2023 Telephone [facility] MEDICINE [address] [place] [address] Juliet Bird FNP [address] [place] [address] Dept [place] [address] triage Social History Tobacco Use Types Packs/Day [...] 02/27/2023 4:58 PM EDT Triage call with [employer] Veteran Appeals Reviewer ID [id number] Pt reports a couple of days of [...] now The caller accepted this outcome speaks ghanaian documented in this encounter Plan of Treatment Upcoming Encounters Date Type Department Care Team (Late st Contact Info) Description 03/31/2025 9:30 AM EDT Medication Management [facility] MEDICINE [address] [place] [address] documented as of this encounter Visit Diagnoses Not on filedocumented in this encounter Care Teams Cut Pressman Relationship Specialty Start Date End Date Juliet Bird FNP PCP - General Family Medicine 01/22/23 08/19/23 Yi Thompson MD [address] [place] [address] PCP - General Internal Medicine 08/20/23 documented as of this encounter
== END 2024-12-15 12:03 | disposition home or self-care (01) ==
PROVIDERS: PCP Student in an Organized Health Care Education/Training Program; Visit Provider Anesthesiology
DX: M47.816 Spondylosis without myelopathy or radiculopathy, lumbar region (principal); M51.369 Other intervertebral disc degeneration, lumbar region without mention of lumbar back pain or lower extremity pain; M54.16 Radiculopathy, lumbar region; M54.41 Lumbago with sciatica, right side; G89.29 Other chronic pain; M46.1 Sacroiliitis, not elsewhere classified; M53.3 Sacrococcygeal disorders, not elsewhere classified
CPT/HCPCS: 99024

== ENCOUNTER → 2024-12-15 11:26 | Outpatient (BNVA) | payer OTHER, SELFPAY | PROVIDERS: PCP Student in an Organized Health Care Education/Training Program; Visit Provider Anesthesiology ==

== ENCOUNTER 2024-12-16 08:51 | Outpatient (AMB) | payer OTHER, SELFPAY ==
[2024-12-16 08:55] VITALS: BP 142/84; PULSE 106; O2SAT 99; BMI 27.1
--- NOTE | 2024-12-16 08:55 | MHC.OFFVIS ---
Vital Signs 12/16/24 08:55 Height 5 ft 4 in Weight 157 lb 10.088 oz BMI 27.1 BP 142/84 H Blood Pressure Location Rt brachial Position Sitting Pulse 106 H Pulse Source Pulse Oximeter Pulse Oximetry (%) 99 Oxygen Delivery Method Room Air Intake Visit Reasons: Pulmonary nodules Allergies Penicillins [PENICILLINS] Allergy (Intermediate, Verified 12/15/24 11:40) HIVES HPI Comments Details: The patient is a 63 year woman with a complicated past medical history including a history of thymoma initially undergoing thymectomy in 2009 and subsequently developing a recurrence requiring a repeat thymectomy in 2014 via a robotic video thoracoscopy approach. in addition to this the patient also has a history of thyroid cancer status post total thyroidectomy. The patient did have a CT scan of the chest at [facility] postoperatively in 2017 which I personally reviewed. the postoperative changes were noted in the anterior mediastinum. Without any evidence of any residual disease or recurrence. The patient also noted to have 2 pulmonary nodules subcentimeter in size 1 in the right lower lobe which appears to be calcified and the 1 in the left hemithorax it is a noncalcified pulmonary nodule. More recently she did undergo repeat CT scan at [facility] again demonstrating the postoperative changes and also documented pulmonary nodules. I also personally reviewed that CT scan demonstrating the 2 pulmonary nodules which appear to be stable when compared to her last CT scan available at [facility]. This is reassuring. However with a history of thyroid cancer in addition to her thymoma will continue to monitor her nodular densities. Clinically the patient is doing well from a respiratory status. She denies any cough or any shortness of breath. Her major limitation is her back pain. She is having significant discomfort. She also had a recent nerve stimulator placed for her back pain in her leg pain however, has resulted in significant knee pain and inability to move her right lower extremity. She does have an appointment with her pain specialist tomorrow. Otherwise from a respiratory status the patient is doing well so therefore will have the patient return in 1 year with a repeat CT scan. If she is to develop any worsening symptoms prior to that she is to call our office for an earlier assessment. 12/16/2024 the patient is here for a pulmonary follow-up visit. Overall she has complains of back pain and also some chest discomfort. She feels tightness. Moderate severity. She does have her use her rescue inhaler with some partial relief but then it comes back. We did review her last CT scan of the chest was back in 09/04/2023 demonstrating numerous pulmonary nodules. She has not had any CT scans since then. With the ongoing worsening respiratory complaints will go ahead and request a CT scan. She is recovering from back surgery so will hold off for little bit until she recovers completely. In the meantime will start him on maintenance therapy. Will follow-up in 6 months. [facility] Medical History (Updated 11/28/24 @ 10:33 by Deepthi Velazquez MD) Headache Cognitive disorder Cervical dystonia Palpitations Non-cardiac chest pain Pelvic pain Leg pain Bladder pain Lower abdominal pain Gross hematuria Toe pain Right knee pain Effusion, right knee Dysuria Pelvic pain in female Hematuria Mass of spine Hematuria Type 2 diabetes mellitus with polyneuropathy DM2 (diabetes mellitus, type 2) Nail deformity Paronychia Failure of spinal cord stimulator Thymoma Pulmonary nodules Thyroid cancer Blood in urine Constipation by delayed colonic transit Tubular adenoma of colon Gastritis Hypertension Dyslipidemia Post-surgical hypothyroidism Primary thyroid cancer Vitamin D deficiency Surgical History History of thymectomy History of back surgery Hx of colonoscopy Hx of thyroidectomy Hx of hernia repair Hx of section Hx of hysterectomy History of esophagogastroduodenoscopy (EGD) Family History Father Stroke Heart attack Mother Diabetes mellitus Family/Other Family history of cancer Sister Stomach cancer Family/Other Thyroid cancer Social History Household Members: Spouse, Children and Other Are you a primary healthcare receptionist to a significant other at home: No Do you presently have visiting nurse or other home services: No Alcohol intake: unknown Patient Tobacco Use Status: Former Tobacco user Tobacco use type: Cigarette Second Hand Smoke Exposure: No Sexual orientation: Straight/Heterosexual Gender identity: Female Review of Systems Const Denies weight gain and Denies weight loss ENT Reports no additional complaints, Denies dysphagia and Denies odynophagia Card Reports no additional complaints Resp Reports no additional complaints GI Reports abdominal pain, Denies belching, Denies melena, Denies bloating, Denies change in bowel habits, Denies dysphagia, Denies excessive flatus, Denies dyspepsia, Denies heartburn, Denies diarrhea, Reports loose stools, Denies nausea, Denies odynophagia and Denies vomiting Reports no additional complaints Musc Reports abnormal gait, Reports back pain and Reports radiating pain into limb Neuro Reports abnormal gait Psych Reports no additional complaints Endo Reports no additional complaints Physical Exam Vital Signs: Last Vital Signs Pulse 106 H 12/16/24 08:55 BP 142/84 H 12/16/24 08:55 Pulse Ox 99 12/16/24 08:55 Oxygen Delivery Method Room Air 12/16/24 08:55 BMI result Body Mass Index 27.1 Const General: comfortable and well developed Nutritional Appearance: well nourished Orientation/consciousness: patient oriented x3 Limitations: physical limitations HEENT Head: Yes atraumatic Eyes General: appearance normal, both eyes and all related structures Neck Neck: Yes full ROM Resp Effort & Inspection: normal respiratory effort, able to speak in complete sentences, no tracheal deviation and symmetric chest movement Auscultation: clear to auscultation bilaterally Cardio Rate: regular rate Heart sounds: S1 normal heart sound present, S2 normal heart sound present, no gallops and no murmurs GI Palpation (GI): Soft to palpation Auscultation: normal bowel sounds General: Yes no CVA tenderness Back/Spine/Pelvis Back: no CVA tenderness Skin General skin exam: elasticity normal, turgor normal and dry skin Neuro General: patient oriented x3 Psych Appearance: grossly normal Mental Status: mental status grossly normal Speech and movement: Normal speech and movement present Affect: normal affect Attitude: cooperative Assessment & Plan Assessment & Plan (1) Pulmonary nodules: Code(s): R91.8 - Other nonspecific abnormal finding of lung field Category: Medical (2) History of thymectomy: Code(s): Z90.89 - Acquired absence of other organs Category: Surgical Plan CT chest start Breo daily LAUREN as needed F/U in 6 months Orders: Orders CT chest wo IV con 2 Months R91.8 - Other nonspecific abnormal finding of lung field Medications: New fluticasone furoate-vilanterol 200-25 mcg/dose (Breo Ellipta) 1 inh inhalation DAILY 30 days 60 ea 11RF Coding Level of Care Code Est Pt Level 4 (19790) Diagnoses Pulmonary nodules R91.8 History of thymectomy Z90.89 Time Spent (min) 16
== END 2024-12-16 09:27 | disposition home or self-care (01) ==
PROVIDERS: PCP Student in an Organized Health Care Education/Training Program; Visit Provider Hospitalist
DX: R91.8 Other nonspecific abnormal finding of lung field (principal); Z90.89 Acquired absence of other organs
CPT/HCPCS: 99214

== ENCOUNTER → 2024-12-22 11:28 | Outpatient (BNVA) | payer OTHER, SELFPAY | PROVIDERS: PCP Student in an Organized Health Care Education/Training Program; Visit Provider Anesthesiology ==

== ENCOUNTER → 2025-01-30 08:24 | Outpatient (BNVA) | payer OTHER, SELFPAY | PROVIDERS: PCP Student in an Organized Health Care Education/Training Program; Visit Provider Urology | DX: N30.20 Other chronic cystitis without hematuria (principal); R39.89 Other symptoms and signs involving the genitourinary system; R10.2 Pelvic and perineal pain; N94.10 Unspecified dyspareunia; Q63.8 Other specified congenital malformations of kidney | CPT/HCPCS: 81003 ==

== ENCOUNTER 2025-01-30 08:25 | Outpatient (AMB) | payer OTHER, SELFPAY ==
--- OUTSIDE RECORDS SUMMARY | 2025-01-30 08:40 | XMS_ITS | Encounter Summary ---
Author Organization [employer] Address [address] [place] [id number] Care Team Providers Care Cistern Room Working Supervisor Name Role Phone Yi Thompson MD Primary Care Pro vider Reason for Visit * Reason Onset Date Comments Medication Question 01/05/2025 Med Refill 01/05/2025 Encounter Details Date Type Department Care Team (Late st Contact Info) Description 01/05/2025 Refill [facility] [address] [place] [address] Tala Armstrong, RN [address] [place] [address] Social History Tobacco Use Types Packs/Day Years [...] encounter Miscellaneous Notes * Telephone Encounter - Tala Armstrong RN - 01/05/2025 2:32 PM EST Received fax from pharmacy stating freestyle lite test strips no longer covered by pt's insurance. Preferred test strip on formulary is contour Next strips. Queued. documented in this encounter Plan of Treatment Upcoming Encounters Date Type Department Care Team (Late st Contact Info) Description 03/31/2025 9:30 AM EDT Medication Management [facility] MED[facility]INE [address] [place] [phone] documented as of this encounter Goals Goal Patient Goal Type Associated Problems Recent Progress Patient-Stated? Author Blood Pressure < 140/90 Blood Pressure 127/66(2024 10:18 AM EST) Jn Petit Hemoglobin A1c < 7 Result Component 6.8( 8:59 AM EST) Jn Petit documented as of this encounter Visit Diagnoses Not on filedocumented in this encounter Additional Health Concerns Assessment Noted Time PHQ-9 Depression Total Score: 1 01/13/20 24 12:16 PM EST documented as of this encounter Care Teams Cistern Room Working Supervisor Relationship Specialty Start Date End Date Yi Thompson MD [address] [place] [phone] PCP - General Internal Medicine 08/20/23 documented as of this encounter
--- OUTSIDE RECORDS SUMMARY | 2025-01-30 08:40 | XMS_ITS | Encounter Summary ---
Author Organization [employer] Address [address] [place] [address] Care Team Providers Care Wireless Communications Engineer Name Role Phone Yi Thompson MD Primary Care Pro vider Reason for Visit * Reason Comments Med Refill Encounter Details Date Type Department Care Team ([facility] st Contact Info) Description 01/26/2025 Refill [facility] [address] [place] [address] [facility] [address] [place] [address] Social History Tobacco Use Types Packs/Day Years [...] Description 03/31/2025 9:30 AM EDT Medication Management [facility] [address] [place] [address] documented as of this encounter Goals Goal Patient Goal Type Associated Problems Recent Progress Patient-Stated? Author Blood Pressure < 140/90 Blood Pressure 127/66(2024 10:18 AM EST) No Jn Shah Hemoglobin A1c < 7 Result Component 6.8( 8:59 AM EST) No Jn Shah documented as of this encounter Visit Diagnoses Not on filedocumented in this encounter Additional Health Concerns Assessment Noted Time PHQ-9 Depression Total Score: 1 01/13/20 24 12:16 PM EST documented as of this encounter Care Teams Wireless Communications Engineer Relationship Specialty Start Date End Date Yi Thompson MD [address] [place] [address] PCP - General Internal Medicine 08/20/23 documented as of this encounter
--- OUTSIDE RECORDS SUMMARY | 2025-01-30 08:40 | XMS_ITS | Encounter Summary ---
Author Organization [employer] Address [address] [place] [address] Care Team Providers Care Plant Maintenance Mechanic Name Role Phone Yi Thompson MD Primary Care Pro vider Reason for Visit * Reason Onset Date Comments Nurse Triage 01/18/2025 Encounter Details Date Type Department Care Team ([facility] st Contact Info) Description 01/18/2025 Telephone [facility] MED[facility]INE [address] [place] [address] Yi Thompson MD [address] [place] [address] Nurse Triage Social History Tobacco Use Types [...] encounter Miscellaneous Notes * Telephone Encounter - Dorothy Urias LPN - 01/18/2025 8:17 AM EST Triage call returned with S # [id number] [facility]. Triage call returned to patient who reports cold symptoms with cough x 1 week. Cough is chief symptoms with slight nasal discharge that is white . Has bilat ear discomfort. No discharge and no reported redness. No fever. OTC cough syrup not helping and is awake at night. Fluid intake maintained. Disposition reviewed an patient in agreement with plan. No PCP or Team appts available at time of call. [facility] hours and availability provided. Triage nurse informed the patient may have a wait of 1-2 hours because [facility] may have delays from patient???s walking in with urgent medical needs. Protocol Used: Common Cold (Adult) Protocol-Based Disposition: See in Office or Video Visit Today Positive Triage Question: * Earache * All higher-acuity triage questions were negative Care Advice Discussed: * Reasons To Call Back - Fever lasts over 3 days - Runny nose lasts over 10 days - You become short of breath - You become worse * Cough Medicines * Cough Syrup With Dextromethorphan * Telephone Encounter - oBo Major - 01/18/2025 8:06 AM EST Symptoms: Cough, Runny Nose Outcome: Schedule an urgent appointment (within 1 hour) or talk to a nurse or provider soon Reason: Wheezing (high-pitched whistling sound) The caller accepted this outcome. Contact pt at [phone] documented in this encounter Plan of Treatment Upcoming Encounters Date Type Department Care Team ([facility] st Contact Info) Description 03/31/2025 9:30 AM EDT Medication Management [facility] MEDICINE [address] [place] [id number] documented as of this encounter Goals Goal [...] documented as of this encounter Care Teams Plant Maintenance Mechanic Relationship Specialty Start Date End Date Yi Thompson MD [address] [place] [phone] PCP - General Internal Medicine 08/20/23 documented as of this encounter
--- OUTSIDE RECORDS SUMMARY | 2025-01-30 08:41 | XMS_ITS | Encounter Summary ---
Author Organization [employer] Address [address] [place] [address] Care Team Providers Care Radio Talk Show Host Name Role Phone Yi Thompson MD Primary Care Pro vider Reason for Visit * Reason Comments Cough Encounter Details Date Type Department Care Team ([facility] Contact Info) Description 01/18/2025 10:20 AM EST Office Visit [facility] [address] [place] [phone] Yi Culp MD [address] [place] [address] Influenza A (Primary Dx); Cough in adult patient Social History Tobacco Use Types Packs/Day Years [...] AM EDT documented as of this encounter Last Filed Vital Signs Vital Sign Reading Time Taken Comments Blood Pressure 127/66 01/18/2025 10:18 AM EST Pulse 111 01/18/2025 10:18 AM EST Temperature 36.8 ??C (98.3 ??F) 01/18/2025 10:[address] Respiratory Rate 18 01/18/2025 10:18 AM EST Oxygen Saturation 97% 01/18/2025 10:18 AM EST Inhaled Oxygen Concentration - - Weight 60.3 kg (133 lb) 01/18/2025 10:18 AM EST Height - - Body Mass Index 22.13 12/21/2024 9:59 AM EST documented in this encounter Progress Notes * Yi Ch MD - 01/18/2025 10:20 AM EST SUBJECTIVE: Sapna Garcia is a 64 y.o. year old female who presents for sick visit . 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 Type 2 diabetes mellitus without complication (CMS/HCC) Varicose veins of lower extremity Vocal cord palsy Mild intermittent asthma without complication Urinary incontinence GERD (gastroesophageal reflux disease) Hypertension Forgetfulness Seasonal allergic rhinitis Pulmonary nodules Hematuria Complex regional pain syndrome type 1 of both upper extremities Right leg pain Health care maintenance Acute cystitis without hematuria Right upper quadrant abdominal pain Allergic eczema Dysphagia Microcytosis Pain in finger Chest pain at rest Vulvar itching Chronic otitis externa of both ears Chronic right-sided low back pain with right-sided sciatica Influenza A Family History Problem Relation Name Age of Onset Other (DM2) Mother Other (DM2,HTN) Sister Other (gastric ca) Sister Other (niece : thyroid ca) Other Review of Systems Constitutional: Negative. HENT: Positive for congestion and rhinorrhea. Negative for dental problem, drooling, ear discharge,ear pain, facial swelling, hearing loss, mouth sores, nosebleeds, postnasal drip, sinus pressure, sinus pain, sneezing, sore throat, tinnitus, trouble swallowing and voice change. Respiratory: Positive for cough and chest tightness. Negative for apnea, choking, shortness of breath, wheezing and stridor. Cardiovascular: Negative. Musculoskeletal: Positive for arthralgias and myalgias. OBJECTIVE: Vitals: 01/18/25 1018 BP: 127/66 BP Location: Right arm Patient Position: Sitting BP Cuff Size: Adult Pulse: (!) 111 Resp: 18 Temp: 98.3 ??F (36.8 ??C) TempSrc: Temporal SpO2: 97% Weight: 133 lb (60.3 kg) Physical Exam Constitutional: Appearance: Normal appearance. Cardiovascular: Rate and Rhythm: Normal rate and regular rhythm. Pulmonary: Effort: Pulmonary effort is normal. Breath sounds: Normal breath sounds. Abdominal: General: Abdomen is flat. Palpations: Abdomen is soft. Musculoskeletal: Right lower leg: No edema. Left lower leg: No edema. Neurological: Mental Status: She is alert. Follow Up: No follow-ups on file. Current Outpatient Medications on File Prior to Visit Medication Sig Dispense Refill acetaminophen (Tylenol 8 Hour) 650 MG ER tablet Take 1 tablet (650 mg) by mouth every 8 (eight) hours if needed for moderate pain. 40 tablet 1 albuterol 108 (90 Base) MCG/ACT inhaler Inhale 2 puffs every 6 (six) hours if needed for wheezing. 18 g 2 Alcohol Swabs pads 1 Swab at noon and 1 Swab in the evening. Use to test blood sugar twice daily. 100 each 11 amitriptyline (Elavil) 25 MG tablet Take 1 tablet by mouth at bedtime. gyvuque-heyeleoffxzpu-qopvnjgv (Excedrin Migraine) 250-250-65 MG tablet Take 1 tablet by mouth every 6 (six) hours if needed for headaches. 30 tablet 1 Blood Glucose Monitoring Suppl (FreeStyle [place] Lite) w/Device kit USE DIRECTED cetirizine (ZyrTEC) 10 MG tablet Take 1 tablet by mouth in the morning. Cranberry Concentrate 500 MG capsule TAKE 1 CAPSULE BY MOUTH TWICE DAILY WITH FOOD estradiol (Estrace) 0.1 MG/GM vaginal cream Insert 1 g into the vagina Once per day. 1g vaginally x14d, then twice weekly thereafter 45 g 2 gabapentin (Neurontin) 300 MG capsule Take 1 capsule (300 mg) by mouth at bedtime. 30 capsule 2 glucose blood (Contour Next Test) test strip Use to check blood sugar 4 times daily 100 each 12 glucose blood (FREESTYLE LITE) test strip Use 1 by To Skin route 4 times every day 100 each 11 hydrOXYzine pamoate (Vistaril) 25 MG capsule Take 1 capsule by mouth at bedtime. ibuprofen 400 MG tablet Take 1 tablet (400 mg) by mouth every 6 (six) hours if needed for moderate pain or fever for up to 30 doses. 30 tablet 0 Januvia 100 MG tablet TAKE 1 TABLET BY MOUTH EVERY MORNING 90 tablet 0 Lancets 33G misc 1 Lancet at noon and 1 Lancet in the evening. Use to test blood sugar twice daily.100 each 11 levothyroxine (Synthroid, Levoxyl) 112 MCG tablet Take 1 tablet by mouth in the morning. losartan-hydroCHLOROthiazide (Hyzaar) 100-12.5 MG tablet TAKE 1 TABLET BY MOUTH EVERYDAY AT NOON 90tablet 1 metFORMIN XR (Glucophage-XR) 500 MG 24 hr tablet TAKE 1 TABLET BY MOUTH TWICE DAILY AT NOON AND IN THE EVENING WITH MEALS. DO NOT BREAK, CRUSH, DISSOLVE OR CHEW 180 tablet 2 Methylcellulose, Laxative, (Citrucel) 500 MG tablet Take by mouth. montelukast (Singulair) 10 MG tablet TAKE 1 TABLET BY MOUTH EVERYDAY AT NOON 30 tablet 2 naproxen (Naprosyn) 500 MG tablet Take 1 tablet by mouth 2 times daily. oxybutynin XL (Ditropan-XL) 10 MG 24 hr tablet Take 10 mg by mouth Once per day. pantoprazole (ProtoNix) 40 MG EC tablet TAKE 1 TABLET BY MOUTH EVERY MORNING 30 MINUTES BEFORE BREAKFAST 30 tablet 2 rosuvastatin (Crestor) 40 MG tablet Take 40 mg by mouth in the morning. Senna-Time 8.6 MG tablet Take 2 tablets by mouth in the morning. Spacer/Aero-Holding Chambers (OptiChamber Delisa) misc 1 each every 4 (four) hours if needed (asthma). 1 each 0 No current facility-administered medications on file prior to visit. Problem List Items Addressed This Visit Influenza A - Primary Drink plenty of water and rest Patient is out of the window for treatment with oseltamivir Acetaminophen as needed Tessalon Perles 100 mg twice a day as needed ED precautions reviewed with patient Relevant Medications acetaminophen (Tylenol Extra Strength) 500 MG tablet benzonatate (Tessalon Perles) 100 MG capsule Other Visit Diagnoses Cough in adult patient Relevant Medications benzonatate (Tessalon Perles) 100 MG capsule Other Relevant Orders Influenza A (ID NOW Rapid Molecular) (Completed) Influenza B (ID NOW Rapid Molecular) (Completed) POCT Rapid COVID Ag (Completed) documented in this encounter Miscellaneous Notes * Assessment & Plan Note - Yi Ch MD - 01/18/2025 10:51 AM EST Associated Problem(s): Influenza A Drink plenty of water and rest Patient is out of the window for treatment with oseltamivir Acetaminophen as needed Tessalon Perles 100 mg twice a day as needed ED precautions reviewed with patient documented in this encounter Plan of Treatment Upcoming Encounters Date Type Department Care Team (Late st Contact Info) Description 03/31/2025 9:30 AM EDT Medication Management [facility] [address] [place] [address] documented as of this encounter Goals Goal Patient Goal Type Associated Problems Recent Progress Patient-Stated? Author Blood Pressure < 140/90 Blood Pressure 127/66(2024 10:18 AM EST) No Jn Shah Hemoglobin A1c < 7 Result Component 6.8( 8:59 AM EST) No Jn Shah documented as of this encounter Procedures Procedure Name Priority Date/Time Associated Diagnosis Comments POCT INFLUENZA B (ID NOW RAPID MOLECULAR) Routine 01/18/2025 10:35 AM EST Cough in adult patient POCT INFLUENZA A (ID NOW RAPID MOLECULAR) Routine 01/18/2025 10:35 AM EST Cough in adult patient POCT RAPID COVID ANTIGEN Routine 01/18/2025 10:22 AM EST Cough in adult patient documented in this encounter Results * Influenza B (ID NOW Rapid Molecular) (01/18/2025 10:35 AM EST) Influenza B Negative Negative, Indeterminate [facility] Swab 01/18/2025 10:3 5 AM EST us Yi Ch MD POINT OF CARE TEST EN TER/EDIT ORDERABLES Final Result Performing Organization Address [facility]/ZIP Co de Phone Number [facility] [address] [place] [phone] * (ABNORMAL) Influenza A (ID NOW Rapid Molecular) (01/18/2025 10:35 AM EST) Influenza A Positive( A) Negative, Indeterminate [facility] Swab 01/18/2025 10:3 5 AM EST us Yi Ch MD POINT OF CARE TEST EN TER/EDIT ORDERABLES Final Result Performing Organization Address City/[facility]/ZIP Co de Phone Number [facility] [address] [place] [address] [phone] * POCT Rapid COVID Ag (01/18/2025 10:22 AM EST) Rapid COVID Ag Negative Swab 01/18/2025 10:2 2 AM EST Yi Ch MD POINT OF CARE TEST EN TER/EDIT ORDERABLES Final Result documented in this encounter Visit Diagnoses Diagnosis Influenza A- Primary Influenza with other respiratory manifestations Cough in adult patient documented in this encounter Additional Health Concerns Assessment Noted Time PHQ-9 Depression Total Score: 1 01/13/20 24 12:16 PM EST documented as of this encounter Care Teams Radio Talk Show Host Relationship Specialty Start Date End Date Yi Thompson MD [address] [place] [address] PCP - General Internal Medicine 08/20/23 documented as of this encounter
--- OUTSIDE RECORDS SUMMARY | 2025-01-30 08:41 | XMS_ITS | Encounter Summary ---
Author Organization [employer] Address [address] [place] [address] Care Team Providers Care Event Designer Name Role Phone Yi Thompson MD Primary Care Pro vider Encounter Details Date Type Department Care Team ([facility] st Contact Info) Description 11/06/2024 Orders Only [facility] MEDICINE [address] [place] [address] Provider, MD Lux Social History Tobacco Use [...] Management [facility] MED[facility]INE [address] [place], [place] [phone] documented as of this encounter Goals Goal [...] documented as of this encounter Care Teams Event Designer Relationship Specialty Start Date End Date Yi Thompson MD [address] [place] [address] PCP - General Internal Medicine 08/20/23 documented as of this encounter
--- OUTSIDE RECORDS SUMMARY | 2025-01-30 08:42 | XMS_ITS | Encounter Summary ---
Author Organization [employer] Address [address] [place] [address] Care Team Providers Care Grinder Outside Diameter Name Role Phone Yi Thompson MD Primary Care Pro vider Reason for Visit * Reason Comments Med Refill Encounter Details Date Type Department Care Team ([facility] st Contact Info) Description 05/20/2024 Refill [facility] [address] [place] [address] Name, MD Ronny [address] [place] [address] Social History Tobacco Use Types Packs/Day Years [...] 9:30 AM EDT Medication Management [facility] [address] [place] [address] documented as of this encounter Goals Goal [...] documented as of this encounter Care Teams Grinder Outside Diameter Relationship Specialty Start Date End Date Yi Thompson MD 230 [place] [address] PCP - General Internal Medicine 08/20/23 documented as of this encounter
--- OUTSIDE RECORDS SUMMARY | 2025-01-30 08:42 | XMS_ITS | Encounter Summary ---
Author Organization [employer] [facility] Address [address] [place] [address] Care Team Providers Care Medical Claims Manager Name Role Phone Juliet Bird Primary Care Provider +1- [phone] Yi Thompson MD Primary Care Pro vider Reason for Visit * Reason Comments Med Refill Encounter Details Date Type Department Care Team (Late Contact Info) Description 06/28/2023 Refill [facility] [address] [place] [address] Juliet Bird FNP [address] [place] [address] Dept [place] [address] Social History Tobacco Use Types Packs/Day Years [...] 9:30 AM EDT Medication Management [facility] [address] [place] [address] documented as of this encounter Visit Diagnoses Not on filedocumented in this encounter Care Teams Medical Claims Manager Relationship Specialty Start Date End Date Juliet Bird FNP PCP - General Family Medicine 01/22/23 08/19/23 Yi Thompson MD [address] [place] [address] PCP - General Internal Medicine 08/20/23 documented as of this encounter
--- OUTSIDE RECORDS SUMMARY | 2025-01-30 08:42 | XMS_ITS | Encounter Summary ---
Author Organization [employer] Address [address] [place] [address] Care Team Providers Care Foot Roentgenologist Name Role Phone Yi Thompson MD Primary Care Pro vider Reason for Visit * Reason Comments Med Change Request Encounter Details Date Type Department Care Team ([facility] st Contact Info) Description 03/15/2024 Refill [facility] MEDICINE 230 [place] [address] Leticia Plunkett, ANP 230 [place] [address] Sinus pressure Social History Tobacco Use Types [...] 9:30 AM EDT Medication Management [facility] MEDICINE [address] [place] [address] documented as of this encounter Goals Goal [...] documented as of this encounter Care Teams Foot Roentgenologist Relationship Specialty Start Date End Date Yi Thompson MD 230 [place] [address] PCP - General Internal Medicine 08/20/23 documented as of this encounter
--- OUTSIDE RECORDS SUMMARY | 2025-01-30 08:42 | XMS_ITS | Encounter Summary ---
Author Organization [employer] Address [address] [place] [address] Care Team Providers Care Supervising Broker Name Role Phone Yi Thompson MD Primary Care Pro vider Reason for Visit * Reason Comments Med Refill Encounter Details Date Type Department Care Team (Late st Contact Info) Description 06/02/2024 Refill [facility] MEDICINE [address] [place] [address] Yi Thompson MD [address] [place] [address] Social History Tobacco Use Types Packs/Day Years [...] Description 03/31/2025 9:30 AM EDT Medication Management [facility] [address] [place] [address] documented as of this encounter Goals Goal [...] documented as of this encounter Care Teams Supervising Broker Relationship Specialty Start Date End Date Yi Thompson MD 230 [place] [address] PCP - General Internal Medicine 08/20/23 documented as of this encounter
--- OUTSIDE RECORDS SUMMARY | 2025-01-30 08:42 | XMS_ITS | Encounter Summary ---
Author Organization [employer] Address [address] [place] [address] Care Team Providers Care Senior Boiler Operator Name Role Phone Yi Thompson MD Primary Care Pro vider Reason for Visit * Reason Comments Med Refill Encounter Details Date Type Department Care Team (Late st Contact Info) Description 09/12/[address] [facility] MED[facility] [address] [place] [address] Yi Thompson MD [address] [place] [address] Type 2 diabetes mellitus without complication, without long-term current use of insulin ([facility]) Social History Tobacco Use Types Packs/Day [...] 03/31/2025 9:30 AM EDT Medication Management [facility] [address] [place] [address] documented as of this encounter Goals Goal Patient Goal Type Associated Problems Recent Progress Patient-Stated? Author Blood Pressure < 140/90 Blood Pressure 127/66(2024 10:18 AM EST) No Jn Shah Hemoglobin A1c < 7 Result Component 6.8( 8:59 AM EST) No Jn Shah documented as of this encounter Visit Diagnoses Diagnosis Type 2 diabetes mellitus without complication, without long-term current use of insulin ([facility]) documented in this encounter Additional Health Concerns Assessment Noted Time PHQ-9 Depression Total Score: 1 01/13/20 24 12:16 PM EST documented as of this encounter Care Teams Senior Boiler Operator Relationship Specialty Start Date End Date Yi Thompson MD [address] [place] [address] PCP - General Internal Medicine 08/20/23 documented as of this encounter
--- OUTSIDE RECORDS SUMMARY | 2025-01-30 08:42 | XMS_ITS | Encounter Summary ---
Author Organization [employer] Address [address] [place] [address] Care Team Providers Care Hand Roller Engraver Name Role Phone Yi Thompson MD Primary Care Pro vider Reason for Visit * Reason Comments Med Change Request Encounter Details Date Type Department Care Team ([facility] st Contact Info) Description 11/11/2023 Refill [facility] [address] [place] [address] [facility] 230 [place] [address] Viral upper respiratory illness Social History Tobacco Use Types Packs/Day Years Used Date Smoking Tobacco: Never Smokeless Tobacco: Never Alcohol Use Standard Drinks/Week Comments Never 0 (1 standard drink = 0.6 oz pur e alcohol) Housing Stability Answer Date Recorded What is your housing situation today? I have ardha alvarado 08/31/[address] you [...] Description 03/31/2025 9:30 AM EDT Medication Management [facility] [address] [place] [address] documented as of this encounter Visit Diagnoses Diagnosis Viral upper respiratory illness documented in this encounter Care Teams Hand Roller Engraver Relationship Specialty Start Date End Date Yi Thompson MD 230 [place] [address] PCP - General Internal Medicine 08/20/23 documented as of this encounter
--- OUTSIDE RECORDS SUMMARY | 2025-01-30 08:42 | XMS_ITS | Encounter Summary ---
Author Organization [employer] Address [address] [place] [address] Care Team Providers Care Service Planner Name Role Phone Yi Thompson MD Primary Care Pro vider Reason for Visit * Reason Onset Date Comments Nurse Triage 02/15/2024 Encounter Details Date Type Department Care Team ([facility] st Contact Info) Description 02/15/[address] [facility] MEDICINE 230 [place] [address] Yi Thompson MD [address] [place] [address] Nurse Triage Social History Tobacco Use Types [...] 02/15/2024 12:44 PM EDT Triage call with [employer] Flex Officer [place] [id number] Pt reports headache frontal and back of [...] 400pm. Pt is advised to come to [facility] which is open till 8pm this evening. [...] Tingling sensation The caller accepted this outcome Palauan speaker documented in this encounter Plan of Treatment Upcoming Encounters Date Type Department Care Team (Late st Contact Info) Description 03/31/2025 9:30 AM EDT Medication Management [facility] MEDICINE [address] [place] [address] documented as of this encounter Visit Diagnoses Not on filedocumented in this encounter Additional Health Concerns Assessment Noted Time PHQ-9 Depression Total Score: 1 01/13/20 24 12:16 PM EST documented as of this encounter Care Teams Service Planner Relationship Specialty Start Date End Date Yi Thompson MD [address] [place] [address] PCP - General Internal Medicine 08/20/23 documented as of this encounter
--- OUTSIDE RECORDS SUMMARY | 2025-01-30 08:42 | XMS_ITS | Encounter Summary ---
Author Organization [employer] Address [address] [place] [address] Care Team Providers Care Retirement Village Manager Name Role Phone Yi Thompson MD Primary Care Pro vider Reason for Visit * Reason Comments Med Refill Encounter Details Date Type Department Care Team ([facility] st Contact Info) Description 09/15/2023 Refill [facility] [address] [place] [address] Juliet Bird FNP [address] [place] [address] Dept [place] [address] Primary hypertension; Type 2 diabetes mellitus without complication, without long-term current use of insulin ([facility]) Social History Tobacco Use Types Packs/Day [...] Management [facility] 230 [place] [address] documented as of this encounter Visit Diagnoses Diagnosis Primary hypertension Unspecified essential hypertension Type 2 diabetes mellitus without complication, without long-term current use of insulin ([facility]) documented in this encounter Care Teams Retirement Village Manager Relationship Specialty Start Date End Date Yi Thompson MD 230 [place] [address] PCP - General Internal Medicine 08/20/23 documented as of this encounter
--- OUTSIDE RECORDS SUMMARY | 2025-01-30 08:42 | XMS_ITS | Data Portability ---
Author Organization [place] [facility], Allergy Address [address] [address] Assessment No assessment recorded. Plan of Treatment [...] contr ast No observ ation record ed. [place] [facility] ([facility]) [address] [address], [place], [address], 07/12/2024 17:28:21 07/12/20 24 03/07/2024 CT, neck, soft tissu e, w/ contr ast No observ ation record ed. [email or web address] Not Available 06/17 14:31:41 Result Notes None [...] Available [employer] 4 03:27:19 Oropharyn geal dysphagia 30986951 Active 2023 CHANTEL MEYER MD [address] [facility],[place] [place] [address], [facility] [place], [address] , [facility] - [facility] 4 14:16:46 Acquired vocal cord palsy 688489985 Active 2023 CHANTEL MEYER MD [address] [facility],[place] [address], [place], [address] , [facility] - [facility] 4 14:27:26 Problem Notes None recorded. Procedures Surgical History Date Name Laterality Status Provider Name and Address Organization Details Recorded Time 07/12/2024 FFL_RE completed CHANTEL MEYER MD [address] [facility],[address] [address], [place], [address], [facility] 07/12/2024 14:20:56 Imaging Results Imaging Date Name Status LastModified by Organiz ation Details LastModified Time 03/07/2024 CT, neck, soft tissue, w/ contrast completed [place] [facility] ([facility]) [address], [place], [address], 07/12/2024 17:28:21 03/07/2024 CT, neck, soft tissue, w/ contrast completed [email or web address] Information not available 07/12/2024 14:31:41 Procedure Notes None recorded. Medical Equipment None Reported. Allergies Allergen ID Allergen Name Allergen Category Reaction Reaction Severity Criticality Documentation Date Start Date Code Code System Note Provider Name and Address Organization Details Recorded Time 37634 Product containin g penicilli n (product) medicatio n other Not available Not available 03/29/2024 48764 8001 SNOMED React ion: unkno wn, unspe cifie d;; Not Available [employer] 01:03:20 Medications Name Sig Start Date Stop Date Status Note LastModified by Organization Details LastModified Time medbox status USE DIRECTED active Not Available Not Available No t Available freestyle lite test strips strp active Not Available Not Available Not Available losartan 50 mg tablet active Medicati on ID: 42046 Br and Name: losartan Send Method: E-Prescr [...] 40 mg tablet active Medicati on ID: 04925 Br and Name: lovastat in Send Method: E-Prescr ibed Sub s Allowed: subs OK Medic ationGen ericName : lovastat in Not Available Not Available Not Available amlodipin e 5 mg tablet active Medicati on ID: 26734 Br and Name: amlodipi ne Send Method: [...] Not Available Not Available No t Available Moran Thyroid 15 mg tablet active Medicati on ID: 90021 Br and Name: Moran Thyroid Send Method: E-Prescr ibed Sub s Allowed: subs OK Medic ationGen ericName : Moran Thyroid Not Available Not Available Not Available amitripty line 25 mg tablet active Medicati on ID: 99617 Br and Name: amitript yline Se nd Method: E-Prescr ibed Sub s Allowed: subs OK Medic ationGen ericName : amitript yline Not Available Not Available Not Available Protonix 40 mg intraveno us solution active Medicati on ID: 83938 Br and Name: Protonix Send Method: E-Prescr [...] 150 mg capsule active Medicati on ID: 11226 Br and Name: ranitidi ne HCl Send Method: E-Prescr ibed Sub s Allowed: subs OK Medic ationGen ericName : ranitidi ne HCl Not Available Not Available Not Available hydrochlo rothiazid e 25 mg tablet active Medicati on ID: 92720 Br and Name: hydrochl orothiaz ro Send [...] 17 gram/dose oral powder USE DIRECTED BY [facility] active Not Available Not Available No [...] release 24hr (osmotic) active Medicati on ID: 07987 Br and Name: meturbano forrest Send Method: E-Prescr ibed Sub s Allowed: [...] tablet,de layed release active Medicati on ID: 77536 Du ration Value: 30 Brand Name: omeprazo le Send Method: E-Prescr ibed Sub s Allowed: subs OK Speci al Instruct ion: Take 1 tablet by mouth every day before a meal [facility] Jessica me: omeprazo le Not Available Not Available [...] Updated DateTime 07/12/2024 165.1 cm 27.3 kg/m2 15357.15 g [place] [facility] 07/12/2024 14:07:22 Social History None recorded. Functional Status None recorded. Mental Status None recorded. Family History Nothing Reported. Medical History No medical history recorded. Gynecological HistoryNo gynecological history recorded. Obstetrics History GPAL:G 0 P 0 0 0 0 Past Encounters Encounter ID Performer Location Encounter Start Date Encounter Closed Date Diagnosis/Indication Diagnosis SNOMED-CT Code Diagnosis ICD10 Code Diagnosis Note [id number] CHANTEL MEYER MD [facility] [address] [address] 07/12/2024 13:49:31 07/12/2024 16:53:30 Oropharyngeal dysphagia 74652755 R13.12 Likely due to esophageal dysmotilit y. VC paralysis is a factor but doesn't explain her dysphagia to solids. I recommend she discuss GI referral with her PCP. I would be glad to see her as needed. I personally reviewed her imaging reports. Acquired v ocal cord palsy 602951117 J38.00 Likely from initial surgery 14 years [...] Name 07/12/2024 1 [employer] [place] [employer] [id number] Giuseppe Rodriguez [id number] Sapna Garcia Notes Date Note Type Note Provider Name and Address Organization Details Recorded Time 07/12/2024 text/html She has a histor y of thyroid cancer. She had thyroidectomy in [place] 14 years ago. She had repeat surgery here 5-6 years ago. She reports her swallowing has been a problem since her first surgery. She had a swallow study at [facility]. She feels like food gets stuck. Has occasional choking with liquids. She has never smoked. She denies throat pain and SOB. I reviewed an Upper GI series which showed esophageal dysmotility. I also reviewed her CT neck with 02/2024 which showed possible right vocal cord paralysis. contrast CHANTEL MEYER MD [address] [place] [address], [place], [address], [facility] - [facility] 07/12/2024 14:28:36 OBGyn Episode No OBEpisode recorded.
--- OUTSIDE RECORDS SUMMARY | 2025-01-30 08:42 | XMS_ITS | Encounter Summary ---
Author Organization [employer] Address [address] [place] [address] Care Team Providers Care Contracts Analyst Name Role Phone Yi Thompson MD Primary Care Pro vider Reason for Visit * Reason Comments Med Refill Encounter Details Date Type Department Care Team (Late st Contact Info) Description 05/03/2024 Refill [facility] MEDICINE [address] [place] [address] Yi Thompson MD [address] [place] [address] Social History Tobacco Use Types Packs/Day Years [...] Medication Management [facility] MEDICINE [address] [place] [address] documented as of this encounter Goals Goal [...] documented as of this encounter Care Teams Contracts Analyst Relationship Specialty Start Date End Date Yi Thompson MD [address] [place] [address] PCP - General Internal Medicine 08/20/23 documented as of this encounter
--- OUTSIDE RECORDS SUMMARY | 2025-01-30 08:42 | XMS_ITS | Encounter Summary ---
Author Organization [employer] [facility] Address [address] [place] [address] Care Team Providers Care Pedicab Driver Name Role Phone Juliet Bird [facility] Primary Care Provider +1- [phone] Yi Thompson MD Primary Care Pro vider Reason for Visit * Reason Comments Med Refill Encounter Details Date Type Department Care Team (Late Contact Info) Description 01/28/2023 Refill [facility] MEDICINE [address] [place] [address] [facility] [address] [place], [place] [phone] Primary hypertension Social History Tobacco Use Types [...] Description 03/31/2025 9:30 AM EDT Medication Management [facility] MEDICINE [address] [place] [address] documented as of this encounter Visit Diagnoses Diagnosis Primary hypertension Unspecified essential hypertension documented in this encounter Care Teams Pedicab Driver Relationship Specialty Start Date End Date Juliet Bird FNP PCP - General Family Medicine 01/22/23 08/19/23 Yi Thompson MD [address] [place] [address] PCP - General Internal Medicine 08/20/23 documented as of this encounter
--- OUTSIDE RECORDS SUMMARY | 2025-01-30 08:42 | XMS_ITS | Encounter Summary ---
Author Organization [employer] Address [address] [place] [address] Care Team Providers Care Global Compensation Director Name Role Phone Yi Thompson MD Primary Care Pro vider Reason for Visit * Reason Comments Med Change Request Encounter Details Date Type Department Care Team ([facility] st Contact Info) Description 11/08/2023 Refill [facility] MEDICINE 230 [place] [address] [facility] [address] [place] [address] Viral upper respiratory illness Social History Tobacco [...] Description 03/31/2025 9:30 AM EDT Medication Management [facility] MEDICINE [address] [place] [address] documented as of this encounter Visit Diagnoses Diagnosis Viral upper respiratory illness documented in this encounter Care Teams Global Compensation Director Relationship Specialty Start Date End Date Yi Thompson MD 230 [place] [address] PCP - General Internal Medicine 08/20/23 documented as of this encounter
--- OUTSIDE RECORDS SUMMARY | 2025-01-30 08:43 | XMS_ITS | Clinical Summary ---
Author Organization [employer] Address [address] [place] [phone] Care Team Providers Care Art Class Model Name Role Phone Yi Thompson MD Primary Care Pro vider Allergies Active Allergy Reactions Criticality Noted Date Comments Penicillins Hives High 12/28/2013 Other reaction(s): SWELLING , Unknown Other reaction(s): swelling pt received dose of cefazolin pre-op 07/04. Per CAT Britton, pt tolerated without issue Medications Blood Glucose Monitoring Suppl (FreeStyle [place] Lite) w/Device kit USE DIRECTED 03/24/20 22 [...] complication, without long-term current use of insulin ([facility]) Use 1 by To Skin route 4 [...] for moderate pain. 40 tablet 1 09/02/20 Active ibuprofen 400 MG tablet Take 1 tablet (400 mg) by mouth every 6 (six) hours if needed for moderate pain or fever for up to 30 doses. 30 tablet 09/02/20 24 Active metFORMIN XR (Glucophage-XR) 500 MG 24 hr tabletIndications :Type 2 diabetes mellitus without complication, without long-term current use of insulin ([facility]) TAKE 1 TABLET BY MOUTH TWICE DAILY AT NOON AND IN THE EVENING WITH MEALS. DO NOT BREAK, CRUSH, DISSOLVE OR CHEW 180 tablet 2 09/30/20 Active levothyroxine (Synthroid, Levoxyl) 112 MCG tablet Take 1 tablet by mouth in the morning. 10/05/20 Active hydrOXYzine pamoate (Vistaril) 25 MG capsule Take 1 capsule by mouth at bedtime. 09/02/20 Active naproxen (Naprosyn) 500 MG tablet Take 1 tablet by mouth 2 times daily. 08/18/20 24 Active gabapentin (Neurontin) 300 MG capsuleIndication s:Spondylosis [...] EVERY MORNING 90 tablet 12/08/19 25 Active pantoprazole (ProtoNix) 40 MG EC tablet TAKE 1 TABLET BY MOUTH EVERY MORNING 30 MINUTES BEFORE BREAKFAST 30 tablet 2 12/30/19 25 Active glucose blood (Contour Next Test) test strip Use to check blood sugar 4 times daily 100 each 12 01/05/20 25 2025 Active montelukast (Singulair) 10 MG tablet TAKE 1 TABLET BY MOUTH EVERYDAY AT NOON 30 tablet 2 01/27/20 25 Active montelukast (Singulair) 10 MG tablet TAKE 1 TABLET BY MOUTH EVERYDAY AT NOON 30 tablet 2 10/28/20 24 2024 Discontinued acetaminophen (Tylenol Extra Strength) 500 MG tabletIndications :Influenza A Take 2 tablets (1,000 mg) by mouth every 8 (eight) hours if needed for mild pain for up to 10 days. 30 tablet 01/19/20 25 2024 brompheniramine-p seudoephedrine-DM 30-2-10 MG/5ML syrupIndications: Influenza A Take 5 mL by mouth if needed in the morning, at noon, in the evening, and at bedtime for allergies for up to 10 days. 120 mL 01/19/20 25 2024 Discontinued benzonatate (Tessalon Perles) 100 MG capsuleIndication s:Cough in adult patient,Influenza A Take 1 capsule (100 mg) by mouth if needed in the morning, at noon, and at bedtime for cough for up to 7 days. Do not crush or chew. 20 capsule 01/19/20 25 2024 Active Problems Problem Noted Date Diagnosed Date Influenza A 01/18/2025 Assessment & Plan (01/18/2025 10:51 AM EST): Drink plenty of water and rest Patient is out of the window for treatment with oseltamivir Acetaminophen as needed Tessalon Perles 100 mg twice a day as needed ED precautions reviewed with patient Chronic otitis externa of both ears 10/28/2024 [...] Consideration for PT once patient returns from [facility] in January. Chest pain at [...] 09/17/2023 Forgetfulness 04/15/2023 Overview (08/20/2023): Seen at [facility] on 07/15/2020 for right sided facial [...] for vascular referral once patient returns from [facility] in January. Irritable bowel syndrome [...] 01/04/2019 04/15/2023 Multiple joint pain 09/03/2018 04/15/20 23 Calcaneal spur 08/05/2018 09/17/2023 Gastroesophageal reflux disease 05/01/2014 04/15/2023 Encounters Date Type Department Care Team Description 01/26/2025 Refill [facility] [address] [place] [address] [facility], CLINICAL NURSING ASSISTANT 01/18/2025 10:20 AM EST Office Visit [facility] [address] [place] [address] Yi Culp MD Influenza A (Primary Dx); Cough in adult patient 01/18/2025 Telephone [facility] [address] [place] [address] Yi Thompson MD Nurse Triage 01/05/2025 Refill [facility] [address] [place] [address] Tala Armstrong RN 12/30/2024 Refill [facility] [address], [place] [phone] Yi Thompson MD 12/21/2024 10:00 AM EST Office Visit [facility] [address] [place] [address] Kika Haney CNM Breast pain, left (Primary Dx) 12/21/2024 Travel 12/15/2024 Telephone [facility] [address] [place] [phone] Yi Thompson MD 12/09/2024 Orders Only GENERIC EXTERNAL DATA DEPARTMENT Provider, Generic External Data 12/08/2024 Refill [facility] [address] [place] [address] Yi Thompson MD Type 2 diabetes mellitus without complication, without long-term current use of insulin ([facility]) 11/30/2024 Telephone [facility] [address] [place] [address] Kaitlynn Allison, RN Results 11/29/2024 Refill [facility] [address] [place] [address] Yi Thompson MD 11/28/2024 Orders Only GENERIC EXTERNAL DATA DEPARTMENT Provider, Generic External Data 11/20/2024 Orders Only GENERIC EXTERNAL DATA DEPARTMENT Provider, Generic External Data 11/06/2024 Orders Only [facility] [address] [place] [address] Lux Caballero MD from Last 3 Months Immunizations Name Administration [...] (133 lb) 01/18/2025 10:18 AM EST Height 165.1 cm (5' 5 ) 12/21/2024 9:59 AM EST Body Mass Index 22.13 12/21/2024 9:59 AM EST Plan of Treatment Upcoming Encounters Date Type Department Care Team (Late st Contact Info) Description 03/31/2025 9:30 AM EDT Medication Management [facility] [address] [place] [phone] Health Maintenance Due Date Last Done Comments [...] 05/16/2025 05/16/2024, 03/2024, 09/08/2023, Additional history exists Colonoscopy 11/03/2025 11/03/2024 Colorectal Cancer Screening 11/03/2025 Tobacco Screening 12/21/2025 12/21/2024 Mammogram 01/13/2026 01/13/2024, 12/18, 01/01/2022, Additional history [...] 10:22 AM EST Cough in adult patient FL GUIDANCE IN OR Routine 12/09/2024 8:2 [...] without long-term current use of insulin (CMS/HCC) LIPID PANEL, STANDARD Routine 05/16/2024 11:43 AM [...] Recently Relevant to Health Maintenance Results * Influenza B (ID NOW Rapid Molecular) (01/18/2025 10:35 AM EST) Influenza B Negative Negative, Indeterminate [facility] Swab 01/18/2025 10:3 5 AM EST us Yi Ch MD POINT OF CARE TEST EN TER/EDIT ORDERABLES Final Result Performing Organization Address [facility] Co de Phone Number [facility] [address] [place] [phone] * (ABNORMAL) Influenza A (ID NOW Rapid Molecular) (01/18/2025 10:35 AM EST) Influenza A Positive( A) Negative, Indeterminate [facility] Swab 01/18/2025 10:3 5 AM EST us Yi Ch MD POINT OF CARE TEST EN TER/EDIT ORDERABLES Final Result Performing Organization Address City/[facility]/ZIP Co de Phone Number [facility] [address] [place] [phone] * POCT Rapid COVID Ag (01/18/2025 10:22 AM EST) Rapid COVID Ag Negative Swab 01/18/2025 10:2 2 AM EST us Yi Ch MD POINT OF CARE TEST EN TER/EDIT ORDERABLES Final Result * FL Guidance in OR (12/09/2024 8:24 AM EST) Anatomical Region Laterality Modality X-Ray Angiograph y 12/09/2024 8:24 AM EST Narrative 12/09/2024 2:24 PM EST ? [facility] ?[address] ?[place], [place] [address] ? Fluoroscopy Report ? Signed ? Patient: Fany Radha,Sapna C ?MR#: M ?? [id number] ? : 1960 ?Acct:[id number] ? Age/Sex: 63 / F ?ADM Date: 12/09/24 ? Loc: HO.SSS ? Attending Dr: Jcarlos Gee MD ? Ordering Physician: Jcarlos Gee MD ?? Date of Service: 12/09/24 ?? Procedure(s): FL guidance in OR ?? Accession Number(s): [id number] ? cc: Jcarlos Gee MD; Yi Thompson [...] ??Milton Duckworth MD ??12/09/2024 02:22 PM EST ? Dictated By: ?Milton Duckworth MD ? Signed By: ?<Electronically signed by Milton Duckworth MD in OV> ?12/09/24 1422 ? DD/ 0824 ? TD/TT: 12/09/24 0842 ? Director Of Residential Services: ? Procedure Note Lissy, Rocio - 12/09/[address] [address] Fluoroscopy Report Signed Patient: Sapna Herzog CMR#: M [id number] : 9Acct:[id number] Age/Sex: 63 / FADM Date: 12/09/24 Loc: HO.SSS Attending Dr: Jcarlos Gee MD Ordering Physician: Jcarlos Gee MD Date of Service: 12/09/24 Procedure(s): FL guidance in OR Accession Number(s): [id number] cc: Jcarlos Gee MD; Yi Thompson MD [...] 12/09/24 1422 DD/ 0824 TD/TT: 12/09/24 0842 Director Of Residential Services: [facility] External Provider IMG IR PROCEDURES Final Result * (ABNORMAL) Glucose, Whole Blood (12/09/2024 6:16 AM EST) Glucose, Whole Blood 162(H) 60 - 115 mg/dL [facility] Comment:METER #: [id number] 12/09/2024 6:16 AM EST 12/09/2024 6:19 AM EST Generic External Data Provider LAB BLOOD ORDERAB LES Final Result [facility] [address] [place] [phone] * XR CERVICAL SPINE 3V (11/28/2024 3:39 PM EST) Anatomical Region Laterality Modality Abdomen Radiographic Criss ging 11/28/2024 3:39 PM EST Narrative 11/30/2024 3:35 PM EST ? [facility] ?[address] ?[place] [address] ?XRay Report ? Signed ? Patient: Fany Radha,Sapna C ?MR#: M ?? [id number] ? : 1960 ?Acct:[id number] ? Age/Sex: 63 / F ?ADM Date: 11/28/24 ? Loc: HO.XRAY ? Attending Dr: Deepthi Velazquez MD ? Ordering Physician: Deepthi Velazquez MD ?? Date of Service: 11/28/24 ?? Procedure(s): XR cervical spine 3V ?? Accession Number(s): [id number] ? cc: Deepthi Velazquez MD; Yi Thompson [...] DD/ 1539 ? TD/TT: 11/28/24 1557 ? Director Of Residential Services: ? Procedure Note Donotuseinterpreter, Image - 11/30/2024 [id number] [place] [address] XRay Report Signed Patient: Sapna Herzog CMR#: M [id number] : 9Acct:[id number] Age/Sex: 63 / FADM Date: 11/28/24 Loc: HO.XRAY Attending Dr: Deepthi Velazquez MD Ordering Physician: Deepthi Velazquez MD Date of Service: 11/28/24 Procedure(s): XR cervical spine 3V Accession Number(s): [id number] cc: Deepthi Velazquez MD; Yi Thompson MD [...] 11/30/24 1532 DD/ 1539 TD/TT: 11/28/24 1557 Director Of Residential Services: [facility] External Provider IMG XR PROCEDURES Final Result * (ABNORMAL) VITAMIN D 25-OH (D2 AND D3) (11/28/2024 3:37 PM EST) Vitamin D, 25-OH, D2 <4 ng/mL [facility] Comment:This test was develo ped and its analytical performancecharacteristics have been determined by [employer] [place] [place]. It hasnot been cleared or approved by the U.S. Food and DrugAdministration. This assay has been validated pursuantto the CLIA regulations and is used for clinicalpurposes.THIS TEST WAS PERFORMED AT:[employer] [id number] [place] [address]EGYZYBUANUPAMA LEVI MD,PHD Vitamin D, 25-OH, D3 23 ng/mL [facility] Comment:This test was develo ped and its analytical performancecharacteristics have been determined by [employer] [place] [place]. It hasnot been cleared or approved by the U.S. Food and DrugAdministration. This assay has been validated pursuantto the CLIA regulations and is used for clinicalpurposes. Vitamin D, 25-OH, Total 23(A) 30 - 100 ng/mL [facility] Comment:Vitamin D, 25-Hydrox y reports concentrations [...] = 30 ng/mL.For additional information, please refer tohttp://education.[employer]/faq/VUB133(This link is being provided for informational/educational purposes only.) 11/28/2024 3:37 PM EST 11/28/2024 3:37 PM EST us Generic External Data Provider LAB BLOOD ORDERAB LES Final Result [facility] [address] [place] [address] [phone] * Vitamin B12 (Cobalamin) and Folate Panel, Serum (11/28/2024 3:37 PM EST) Pathologist [facility] Vitamin B12 295 200 - 900 pg/mL [facility] Comment:NORMAL 200-900 PG/ML INDETERMINATE 160-199 PG/ML DEFICIENT < 160 PG/ML Folate 11.5 > or = 4.0 ng/mL [facility] Comment:Reference Values:> o r = 4.0 ng/mL< 4.0 ng/mL suggests folate deficiency Methotrexate, aminopterin and folinic acid(leucovorin) are chemotherapeutic agents whose molecularstructures are similar to folate; therefore, the Architectfolate assay cannot be used for patients using these drugs. 11/28/2024 3:37 PM EST 11/28/2024 3:37 PM EST Generic External Data Provider LAB BLOOD ORDERAB LES Final Result Performing Organization Address [facility] Co de Phone Number [facility] [address] [place] [phone] * TSH with Reflex to Free T4 (11/28/2024 3:37 PM EST) Pathologist [facility] TSH reflex Free T4 2.36 0.32 - 4.0 uIU/mL [facility] 11/28/2024 3:37 PM EST 11/28/2024 3:37 PM EST Generic External Data Provider LAB BLOOD ORDERAB LES Final Result Performing Organization Address [facility] Co de Phone Number [facility] [address] [place] [phone] * (ABNORMAL) CBC auto differential (11/28/2024 3:37 PM EST) Only the most recent of2 resultswithin the time period is included. Pathologist [facility] White Blood Count 8.0 4.8 - 10.8 X10*3/uL [facility] Red Blood Count 4.57 4.20 - 5.50 X10*6/uL [facility] Hemoglobin 10.8(L) 12.0 - 16.0 g/dl [facility] Hematocrit 34.5(L) 37.0 - 47.0 % [facility] Mean Corpuscular Volume 75.5(L) 80.0 - 98.0 fL [facility] Mean Corpuscular Hemoglobin 23.6(L) 27.0 - 33.0 pg [facility] Mean Corpuscular HGB Conc 31.3 31.0 - 35.0 g/dl [facility] Red Cell Distribution Width 15.0 11.0 - 16.0 % [facility] Platelet Count 266 160 - 400 X10*3/uL [facility] Mean Platelet Volume 10.5 9.4 - 12.3 fL [facility] Neutrophils Percent Auto 65.8 45 - 73 % [facility] Imm Gran Pct Auto 0.5(H) 0.0 - 0.4 % [facility] Lymphocytes Percent Auto 23.7 20 - 40 % [facility] Monocytes Percent Auto 6.4 2 - 11 % [facility] Eosinophils Percent Auto 2.5 0 - 4 % [facility] Basophils Percent Auto 1.1 0 - 2 % [facility] NRBC Pct Auto 0.0 0.0 - 0.2 /100WBC [facility] Neutrophils Absolute Auto 5.3 2.0 - 8.3 x10*3/uL [facility] Imm Gran Abs Auto 0.04(H) 0.00 - 0.03 X10*3/uL [facility] Lymphocytes Absolute Auto 1.9 1.2 - 4.9 X10*3/uL [facility] Monocytes Absolute Auto 0.5 0.1 - 1.2 X10*3/uL [facility] Eosinophils Absolute Auto 0.2 0.0 - 0.4 X10*3/uL [facility] Basophils Absolute Auto 0.1 0.0 - 0.2 X10*3/uL [facility] NRBC Abs Auto 0.000 0.0 - 0.012 X10*3/uL [facility] 11/28/2024 3:37 PM EST 11/28/2024 3:37 PM EST Generic External Data Provider LAB BLOOD ORDERAB LES Final Result Performing Organization Address [facility] de Phone Number [facility] [address] [place] [phone] * Sed Rate by Modified [place] (11/28/2024 3:37 PM EST) Pathologist [facility] Erythrocyte Sedimentation Rate 17 0 - 20 MM/HR [facility] Comment:Patients with polycy themia and many hemoglobin abnormalitiesmay have depressed sed rates whereas patients with anemiamay have elevated sed rates. 11/28/2024 3:37 PM EST 11/28/2024 3:37 PM EST Generic External Data Provider LAB BLOOD ORDERAB LES Final Result Performing Organization Address [facility] Phone Number [facility] [address] [place] [phone] * T4, Free (11/28/2024 3:37 PM EST) [facility] Free T4 (Free Thyroxine) 1.31 0.71 - 1.85 ng/dL [facility] 11/28/2024 3:37 PM EST 11/28/2024 3:37 PM EST Generic External Data Provider LAB BLOOD ORDERAB LES Final Result Performing Organization Address [facility] Phone Number [facility] [address] [place] [phone] * (ABNORMAL) Comprehensive Metabolic Panel (11/28/2024 3:37 PM EST) Only the most recent of2 resultswithin the time period is included. [facility] Sodium 144 135 - 145 mmol/L [facility] Potassium 4.2 3.3 - 5.1 mmol/L [facility] Chloride 106 96 - 108 mmol/L [facility] Carbon Dioxide 24 22 - 29 mmol/L [facility] Anion Gap 18 12 - 20 [facility] Urea Nitrogen (BUN) 29(H) 9 - 16 mg/dL [facility] Creatinine, Serum 0.76 0.5 - 1.4 mg/dL [facility] Estimated Glomerular Filt Rate >60 [facility] Comment:Chronic Kidney Disea se: Estimated GFR < 60 mL/min/[id number] Kidney Disease: Estimated GFR < 15 mL/min/1.73m2 Glucose 141(H) 60 - 115 mg/dL [facility] Calcium 9.7 8.4 - 10.2 mg/dL [facility] Bilirubin, Total 0.2 0.0 - 1.0 mg/dL [facility] Aspartate Amino Transferase 22 5 - 31 U/L [facility] Alanine Aminotransferase 20 0 - 31 U/L [facility] Total Protein 8.2(H) 6.5 - 8.0 g/dL [facility] Albumin Level 4.5 3.5 - 5.0 g/dL [facility] Alkaline Phosphatase 74 39 - 117 U/L [facility] 11/28/2024 3:37 PM EST 11/28/2024 3:37 PM EST us Generic External Data Provider LAB BLOOD ORDERAB LES Final Result [facility] [address] [place] [phone] * High Sensitivity Troponin I (11/20/2024 3:04 PM EST) Only the most recent of2 resultswithin the time period is included. TROPONIN I HIGH SENSITIVITY 4.7 <3.5 - 17.0 ng/L [facility] Comment:The [place] high sens itivity Troponin-I results should beused in conjunction with other diagnostic information suchas ECG, clinical observations and information, and patientsymptoms to aid in the diagnosis of MA. 11/20/2024 3:04 PM EST 11/20/2024 3:08 PM EST us Generic External Data Provider LAB BLOOD ORDERAB LES Final Result [facility] [address] [facility] [place] [phone] * XR Chest 1 View (11/20/2024 2:07 PM EST) Anatomical Region Laterality Modality Chest Radiographic Criss ging 11/20/2024 2:07 PM EST Narrative 11/20/2024 2:09 PM EST ? [facility] ?[address] ?[place] [address] ?XRay Report ? Signed ? Patient: Fany Radha,Sapna C ?MR#: M ?? [id number] ? : 1960 ?Acct:[id number] ? Age/Sex: 63 / F ?ADM Date: 11/20/24 ? Loc: HO.ED ? Attending Dr: ? Ordering Physician: Rocael Pearce ?? Date of Service: 11/20/24 ?? Procedure(s): XR chest 1V ?? Accession Number(s): [id number] ? cc: Rocael Pearce; Yi Thompson MD [...] MD in OV> ?11/20/24 1408 ? DD/ ? TD/TT: 11/20/247 ? Director Of Residential Services: ? Procedure Note Rocio Yuan - 11/20/[address] [place] [address] XRay Report Signed Patient: Sapna Herzog [facility]#: M [id number] : 9Acct:[id number] Age/Sex: 63 / FADM Date: 11/20/24 Loc: HO.ED Attending Dr: Ordering Physician: Rocael Pearce Date of Service: 11/20/24 Procedure(s): XR chest 1V Accession Number(s): [id number] cc: Rocael Pearce; Yi Thompson MD CLINICAL [...] OV> 11/20/24 1408 DD/ 1407 TD/TT: 11/20/24 140 Director Of Residential Services: [facility] External Provider IMG XR PROCEDURES Edited Result - Final * Urinalysis, Complete, with Reflex to Culture (11/20/2024 1:32 PM EST) Color Urine Yellow [facility] Appearance Urine Clear [facility] PH 6.0 5.0 - 9.0 [facility] Glucose Urine UA Negative Negative mg/dL [facility] Urine Blood Trace Negative [facility] Specific [place] - Urine 1.010 1.005 - 1.025 [facility] Urine Protein Negative Neg-Trace mg/dL [facility] Urine Ketones Negative Negative mg/dL [facility] Nitrite Urine Negative Negative [facility] Leukocyte Esterase Urine Negative Negative [facility] RBC Urine 0-2 0 - 2 /HPF [facility] Urine WBC 0-5 0 - 5 /HPF [facility] Urine Squamous Epithelial Cell 0-2 0 - 2 /HPF [facility] Urine Bacteria None Seen None Seen [facility] Hyaline Casts, Urine 0-2 0 - 2 /LPF [facility] 11/20/2024 1:32 PM EST 11/20/2024 1:36 PM EST Narrative [facility] - 11/20/2024 1:48 PM EST 1331Urine, Clean Catch Generic External Data Provider LAB URINE ORDERAB LES Final Result Performing Organization Address [facility]/ZIP Co de Phone Number [facility] [address] [place] [phone] * SARS-CoV-2 RNA, Influenza A/B, and RSV RNA, Ql NAAT (11/20/2024 12:03 PM EST) Influenza A PCR NEGATIVE Negative [facility] Influenza B PCR NEGATIVE Negative [facility] Resp Syncy Virus RNA Qual PCR NEGATIVE Negative [facility] SARS COV2 PCR NEGATIVE Negative [facility] Comment:All test results mus t [...] use by authorized laboratories.Testing performed on the [employer] GeneXpert utilizingreal-time RT-PCR.All SARS CoV2 and positive influenza A/B results arereported to [facility]. 11/20/2024 12:0 3 PM EST 11/20/2024 12:05 PM EST us Generic External Data Provider LAB MICROBIOLOGY - GENERAL ORDERABLES Final Result Performing Organization Address [facility]/ZIP Co de Phone Number [facility] [address] [place] [phone] * D Dimer High Sensitivity (11/20/2024 12:02 PM EST) Pathologist [facility] D Dimer High Sensitivity <150 NG/ML [facility] Comment:D-DIMER HS REFERENCE RANGENote: Our assay [...] ORDERAB LES Final Result Performing Organization Address [facility] Co de Phone Number [facility] [address] [place] [phone] * Partial Thromboplastin Time, Activated (APTT) (11/20/2024 12:02 PM EST) Pathologist [facility] Partial Thromboplastin Time 35.0 26.0 - 36.8 SEC [facility] Comment:For information rega rding the monitoring of direct thrombininhibitors, please refer to Pharmacy. 11/20/2024 12:0 2 PM EST 11/20/2024 12:05 PM EST Generic External Data Provider LAB BLOOD ORDERAB LES Final Result Performing Organization Address [facility] UNIT Co de Phone Number [facility] [address] [place] [phone] * Prothrombin Time-INR (11/20/2024 12:02 PM EST) Pathologist [facility] Prothrombin Time 11.5 10.9 - 12.4 SEC [facility] INTERNATIONAL NORM RATIO 1.0 0.9 - 1.1 [facility] Comment:INTERNATIONAL NORMAL IZED RATIO (INR) REFERENCE [...] LES Final Result Performing Organization Address [facility] de Phone Number [facility] [address] [place] [phone] * B Type Natriuretic Peptide (BNP) (11/20/2024 12:02 PM EST) Pathologist [facility] B Type Natriuretic Peptide 16 <100 pg/mL [facility] Comment:For those patients w ho are being treated with Natrecor(nesiritide, recombinant BNP), BNP testing should beperformed at least two hours post treatment in order toensure that only endogenous levels of BNP are detected. 11/20/2024 12:0 2 PM EST 11/20/2024 12:05 PM EST Generic External Data Provider LAB BLOOD ORDERAB LES Final Result Performing Organization Address [facility] de Phone Number [facility] [address] [place] [phone] * Hm Colonoscopy (11/03/2024 6:36 PM EST) Historical Provider HEALTH MAINTENANCE Final Result * (ABNORMAL) POCT HGB A1C (10/28/2024 8:59 AM EST) Hemoglobin A1C 6.8(A) 4.0 - 6.0 % QC Media Lot # [id number] Lot# Expiration Date ,[id number] Blood 10/28/2024 8:59 AM EST Cathleen Lomax [facility] POINT OF CARE TEST ENTER/ EDIT ORDERABLES Final Result * Lipid Panel, Standard (05/16/2024 11:43 AM EDT) Triglycerides 85 <150 mg/dL [facility] Comment:Desirable Triglyceri de: less than 150 mg/dLBorderline High Triglyceride 150-199 mg/dLHigh Triglyceride: 200-499 mg/dLVery High Triglyceride: greater than or equal to 5OO mg/dL Cholesterol 124 <200 mg/dL [facility] Comment:Desirable Cholestero l: less than 200 mg/dLBorderline High Cholesterol: 200-239 mg/dLHigh Cholesterol: greater than 239 mg/dL LDL Cholesterol Calculated 62 <100 mg/dL [facility] Comment:Desirable LDL: less than 100 mg/dLNear Optimal/Above Optimal LDL: 110- 129 mg/dLBorderline High LDL: 130-159 mg/dLHigh LDL: 160-189 mg/dLVery High LDL: greater than or equal to 190 mg/dL HDL Cholesterol 45 >40 mg/dL [facility] Comment:Desirable HDL: great er than 40 mg/dL Note: This HDL assay may give artificially low results in patients with liver disease. Blood Venous blood specimen / Unknown 05/16/2024 11:43 AM EDT 05/16/2024 11:49 AM EDT Yi Cleary MD LAB BLOOD ORDERAB LES Final Result [facility] [place], [place] [phone] * BI US Breast Limited Left (01/13/2024 2:35 PM EST) Anatomical Region Laterality Modality Breast Left Ultrasound 01/13/2024 2:35 PM EST Narrative 01/13/2024 2:46 PM EST ? [facility] ? [address] ?[place] [address] ? Ultrasound Report ? Signed ? Patient: Fany Radha,Sapna C ?MR#: M ?? [id number] ? : 1960 ?Acct:[id number] ? Age/Sex: 63 / F ?ADM Date: 01/11/24 ? Loc: HO.MAMMO ? Attending Dr: Tamie Johnson MD ? Ordering Physician: Yi Thompson MD ?? Date of Service: 01/13/24 ?? Procedure(s): US breast LT limited mamm only ?? Accession Number(s): [id number] ? cc: Yi Thompson MD ? EXAMINATION: [...] 1442 ? DD/ 1435 ? TD/TT: ? Director Of Residential Services: ? Procedure Note Lissy, Image - 01/13/2024 [facility] [address] [place] [address] Ultrasound Report Signed Patient: Sapna Herzog CMR#: M [id number] : 9Acct:[id number] Age/Sex: 63 / FADM Date: 01/11/24 Loc: HO.MAMMO Attending Dr: Tamie Johnson MD Ordering Physician: Yi Thompson MD Date of Service: 01/13/24 Procedure(s): US breast LT limited mamm only Accession Number(s): [id number] cc: Yi Thompson MD EXAMINATION: MM DIAGNOSTIC [...] in OV> 01/13/24 1442 DD/ 1435 TD/TT: Director Of Residential Services: Yi Cleary MD IMG US PROCEDURES Final Result * Albumin, Random Urine W/Creatinine (01/12/2024 3:10 PM EST) Creatinine, Urine 31.68 mg/dL [facility] Microalbumin Urine 5.0 mg/L [facility] Microalbum Creatinine Ratio Ur 15.7 <30 ug/mg cr [facility] Comment:Albumin/Creatinine R atio Reference Ranges: Normal: < 30 ug/mg creatinine Microalbuminuria: 30 - 300 ug/mg creatinineClinical Albuminuria: > 300 ug/mg creatinine 01/12/2024 3:10 PM EST 01/12/2024 4:41 PM EST Yi Cleary MD LAB URINE ORDERAB LES Final Result Performing Organization Address [facility]/ZIP Co de Phone Number [facility] [address] [place] [phone] * Hepatitis C Antibody with Reflex to HCV, RNA, Quantitative, Real-Time PCR (01/12/2024 8:56 AM EST) Hepatitis C Antibody Nonreactive Nonreactive [facility] Comment:Antibodies to HCV no t detected; does not exclude early acuteHCV infection. Blood Venous blood specimen / Unknown 01/12/2024 8:56 AM EST 01/12/2024 11:12 AM EST us Yi Cleary MD LAB BLOOD ORDERAB LES Final Result Performing Organization Address [facility]/ZIP Co de Phone Number [facility] [address] [place] [phone] * THINPREP PAP (10/25/2020 10:02 AM [...] historic and ?? current clinical information. ?? Electronic Gluing Machine Operator : SEE COMMENT [facility] Comment: [place], CT(ASCP) CT screening location: [address] ??[phone] Interpretation/R esult: Negative for intraepithelial lesion or malignancy. [facility] LMP: NONE GIVEN [facility] Prev. BX: NONE GIVEN [facility] Prev. PAP: NONE GIVEN [facility] SOURCE: None given [facility] Statement Of Adequacy: SEE COMMENT [facility] Comment: Satisfactory for evaluation. Endocervical/transformation zone component present. 10/25/2020 10:0 2 AM EST [facility] PATH[facility] ORDERABLES Final Result [facility] [address] * HPV mRNA E6/E7 (10/25/2020 10:02 AM EST) HPV nRNA E6/E7 Not Detected Not Detected [facility] Comment: This test was performed using the APTIMA HPV Assay ([employer] This assay detects E6/E7 viral messenger RNA (mRNA) from 14 high-risk HPV types (16,18,31,33,35,39,45,51,52,56,58,59,66,68). ?? The analytical performance characteristics of this assay have been determined by [facility]. The modifications have not been cleared or approved by the FDA. This assay has been validated pursuant to the CLIA regulations and is used for clinical purposes. 10/25/2020 10:0 2 AM EST [facility] BLOOD ORDERABLES Cammy hines Result [facility] [address] from Last 3 Months or Most Recently Relevant to Health Maintenance Insurance BS Care Teams Art Class Model Relationship Specialty Start Date End Date Yi Thompson MD [address] [place] [phone] PCP - General Internal Medicine 08/20/23
--- OUTSIDE RECORDS SUMMARY | 2025-01-30 08:43 | XMS_ITS | Encounter Summary ---
Author Organization [employer] Address [address] [place] [phone] Care Team Providers Care Wastewater Project Engineer Name Role Phone Juliet Bird Primary Care Provider [phone] Yi Thompson MD Primary Care Pro vider Reason for Visit * Reason Onset Date Comments triage 02/27/2023 Encounter Details Date Type Department Care Team (Late st Contact Info) Description 02/27/2023 Telephone [facility] [address] [place] [address] Juliet Bird FNP [address] [place] [address] Dept [place] [address] triage Social History Tobacco Use Types Packs/Day [...] 02/27/2023 4:58 PM EDT Triage call with Babybe Skiver Counter ID [id number] Pt reports a couple of days of [...] now The caller accepted this outcome speaks haitian documented in this encounter Plan of Treatment Upcoming Encounters Date Type Department Care Team (Late st Contact Info) Description 03/31/2025 9:30 AM EDT Medication Management [facility] [address] [place] [address] documented as of this encounter Visit Diagnoses Not on filedocumented in this encounter Care Teams Wastewater Project Engineer Relationship Specialty Start Date End Date Juliet Bird FNP PCP - General Family Medicine 01/22/23 08/19/23 Yi Thompson MD [address] [place] [address] PCP - General Internal Medicine 08/20/23 documented as of this encounter
--- NOTE | 2025-01-30 09:10 | A.OFFVIS_ITS ---
Intake Visit Reasons: FU interstitial cystitis Intake Note: Urology Med:none Antibiotic Allergy: Penicillins Blood Thinner:none Feed Preparation Operator Required: Yes Feed Preparation Operator Language: Sheet Metal Duct Installer Apprentice Name: [id number], Osiel Rodriguez Information Interpreted: non-clinical & clinical Allergies Penicillins [PENICILLINS] Allergy (Intermediate, Verified 01/30/25 09:12) HIVES Medication List - Last Reconciled 01/30/25 by Analy Campos MD acetaminophen (Tylenol) 650 mg (2 x 325 mg) PO Q6H PRN albuterol sulfate 90 mcg/actuation (ProAir HFA) 2 puffs inhalation Q4-6H PRN amitriptyline 10 mg PO BEDTIME blood sugar diagnostic (FreeStyle Lite Strips) Test blood glucose twice per day blood-glucose meter (FreeStyle Lite Meter kit) As directed cholecalciferol (vitamin D3) 62.5 mcg PO QAM flash glucose scanning reader ([employer] Emile 2 Lester) As directed fluticasone furoate-vilanterol 200-25 mcg/dose (Breo Ellipta) 1 inh inhalation DAILY 30 days fluticasone propionate 50 mcg/actuation sprays intranasal gabapentin 300 mg PO BEDTIME 30 days hydrocortisone 2.5% (Proctosol HC) 1 appl OH BID-QID PRN hydroxyzine HCl 10 mg PO BEDTIME ibuprofen 600 mg PO Q8H PRN levothyroxine 112 mcg PO DAILY losartan-hydrochlorothiazide 100-12.5 mg tabs PO DAILY metformin ER 500 mg PO BID montelukast 10 mg PO DAILY naproxen 500 mg PO BID 30 days bxazunuk-xkfylkwfr-KB 3.5-10,000-1 mg/mL-unit/mL-% drps otic (ears) pantoprazole 40 mg PO DAILY sennosides (senna) 17.2 mg (2 x 8.6 mg) PO BEDTIME sitagliptin phosphate (Januvia) 100 mg PO DAILY HPI Comments Details: 01/30/25--Sapna is a 64-year-old female presenting with chronic interstitial cystitis and related lower urinary tract symptoms, including bladder urgency and pain. Last seen in December 2024, she had been managing her condition effectively, having stopped hydroxyzine. Despite this, her symptoms?particularly bladder pain?have resurfaced. She self-initiated cranberry gummies two weeks ago but noticed an aggravation of bladder discomfort. Her management includes gabapentin 300 mg daily for unrelated back pain, which influences her tolerance for additional medication due to cumulative nighttime sedation effects. The recent symptom recurrence demands reevaluation and adjustment of her management plan. Urinary Symptoms Review - Bladder urgency and pain - Resumed bladder pain two weeks ago, likely aggravated by cranberry gummies - Former use of hydroxyzine, causing sedation concerns in concurrent nighttime medication regimen 12/22/24--Sapna is a 64-year-old female followed for interstitial cystitis and lower urinary tract symptoms of urgency and bladder pain. She states she is doing much better she has discontinued the hydroxyzine. She is followed by pain management for back pain and is on gabapentin 300 mg daily that she takes before bed. I will have her follow-up in 6 months she will call for any issues prior. 08/22/24--Sapna is being followed for recurrent UTIs, interstitial cystitis, mobile lounge driver or operator utilized. She is using the oxybutynin 10 mg daily. She is here with complaints of increased pain with urination. Urinalysis is nitrite positive. The patient states that she has not been using any other antibiotics at this time. I will empirically place her on Cipro 500 mg twice a day pending urine culture. 08/01/24--Sapna is being followed for recurrent UTIs, interstitial cystitis and related symptoms of pelvic pain and urgency. She was last treated for UTI symptoms with antibiotics in June, she denies dysuria but complains of vaginal itching. She is taking oxybutynin 10 mg daily. Nitrofurantoin 50 mg post sexual activity. I Will send diflucan to pharm. 04/15/2024--Sapna is being followed for recurrent UTIs, interstitial cystitis and related symptoms of pelvic pain and urgency. She called to be seen today because of pelvic pain. She states for about 8 days she has been off and on having pain with urination. She states that she forgot to take the prophylactic antibiotics with intercourse. Urinalysis evaluated is nitrite positive. I will send urine for culture. I will empirically start Macrobid 100 mg twice a day for 7 days pending urine culture. In review of her chart the patient had a CT scan abdomen pelvis with contrast ordered by another provider for complaints of abdominal pain. I have reviewed the results kidneys duplicated right renal system no hydronephrosis no renal calculi. Will continue low dose macrobid post intercourse, tylenol and/or OTC NSAID prn, Cont Uribel TID, continue oxybutynin 10 mg qhs. 02/01/24-Sapna is a 62-year-old female who presents today to the office for a follow-up. Sapna is followed due to bladder pain syndrome. She has been treated with bladder installations heparin lidocaine and Solu-Medrol. The patient is a Tajik speaking female. Certified mobile lounge driver or operator was present during the visit. PMH includes --hypertension, diabetes, h/o thyroid cancer, followed by endocrine. I had previously discussed use of pyridium prior to intercourse and low dose macrobid post intercourse, tylenol and/or OTC NSAID prn. She was prescribed uribel. The patient states the her bladder pain is much better, but not gone. 03/17/23--Out patient cystoscopy bladder biopsy-- bladder findings, erythematous flattened changes, pathology chronic cystitis with muscularis propria present. 04/23/22-- urine cytology- negative for malignant cells PFSH Medical History Headache Cognitive disorder Cervical dystonia Palpitations Non-cardiac chest pain Pelvic pain Leg pain Bladder pain Lower abdominal pain Gross hematuria Toe pain Right knee pain Effusion, right knee Dysuria Pelvic pain in female Hematuria Mass of spine Hematuria Type 2 diabetes mellitus with polyneuropathy DM2 (diabetes mellitus, type 2) Nail deformity Paronychia Failure of spinal cord stimulator Thymoma Pulmonary nodules Thyroid cancer Blood in urine Constipation by delayed colonic transit Tubular adenoma of colon Gastritis Hypertension Dyslipidemia Post-surgical hypothyroidism Primary thyroid cancer Vitamin D deficiency Surgical History History of thymectomy History of back surgery Hx of colonoscopy Hx of thyroidectomy Hx of hernia repair Hx of section Hx of hysterectomy History of esophagogastroduodenoscopy (EGD) Family History Father Stroke Heart attack Mother Diabetes mellitus Family/Other Family history of cancer Sister Stomach cancer Family/Other Thyroid cancer Social History Household Members: Spouse, Children and Other Are you a primary critical care clinical nurse specialist to a significant other at home: No Do you presently have visiting nurse or other home services: No Alcohol intake: unknown Patient Tobacco Use Status: Former Tobacco user Tobacco use type: Cigarette Second Hand Smoke Exposure: No Sexual orientation: Straight/Heterosexual Gender identity: Female Review of Systems Const All systems reviewed & are unremarkable except as noted in HPI and below Reports no additional complaints Eyes Reports no additional complaints ENT Reports no additional complaints Card Reports no additional complaints Resp Reports no additional complaints GI Reports no additional complaints Reports as per HPI Musc Reports no additional complaints Skin/Breast Reports system reviewed and no additional complaints, except as documented Neuro Reports no additional complaints Psych Reports no additional complaints Endo Reports no additional complaints Je/Lymph Reports no additional complaints Aller/Immun Reports no additional complaints Assessment & Plan Assessment & Plan (1) Chronic cystitis: Code(s): N30.20 - Other chronic cystitis without hematuria Category: Medical (2) Bladder pain: Code(s): R39.89 - Other symptoms and signs involving the genitourinary system Category: Medical (3) Pelvic pain: Code(s): R10.2 - Pelvic and perineal pain Category: Medical (4) Dyspareunia in female: Code(s): N94.10 - Unspecified dyspareunia Category: Medical (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 Hydroxyzine 10 mg at bedtime was advised to manage bladder inflammation, considering her concurrent medication regimen that includes gabapentin. The intervention seeks to balance symptom relief with minimized drowsiness. A follow-up assessment is scheduled in five weeks to evaluate efficacy and tolerance of this therapeutic approach. Medications: New hydroxyzine HCl 10 mg PO BEDTIME 30 tabs 4RF Patient Instructions: The patient had an opportunity to ask questions regarding treatment plan. The patient expressed understanding and agreement with the above treatment plan. The patient is aware they should contact our office by phone for worsening of their current condition or the appearance of new symptoms. Compliance is encouraged with any medications and followup testing that is ordered. It is a privilege to be allowed the opportunity to participate in the urologic care of your patient. If you have any questions or concerns regarding treatment for the above conditions please do not hesitate to contact me. The office telephone contact is [phone]. This note is constructed in part using voice recognition software. While every effort has been made to ensure accuracy plowing gardens errors may have been included. Yours sincerely, Analy Campos MD Scribe Plan - Not visible on output: Patient was informed and verbally consented to the use of an ambient scribe for clinic note documentation during this visit. Coding Level of Care Code Est Pt Level 4 (73446) Diagnoses Chronic cystitis N30.20 Bladder pain R39.89 Pelvic pain R10.2 Dyspareunia in female N94.10 Duplex kidney Q63.8
== END 2025-01-30 10:24 | disposition home or self-care (01) ==
PROVIDERS: PCP Student in an Organized Health Care Education/Training Program; Visit Provider Urology
DX: N30.20 Other chronic cystitis without hematuria (principal); R39.89 Other symptoms and signs involving the genitourinary system; R10.2 Pelvic and perineal pain; N94.10 Unspecified dyspareunia; Q63.8 Other specified congenital malformations of kidney; Z13.9 Encounter for screening, unspecified
CPT/HCPCS: 99214

== ENCOUNTER 2025-02-07 10:07 | Outpatient (REF) | payer OTHER, SELFPAY ==
--- NOTE | ~2025-02-07 | US_ITS ---
EXAMINATION: MM DIAGNOSTIC DIGITAL BREAST TOMOSYNTHESIS, BILATERAL Limited left breast ultrasound. CLINICAL INFORMATION: Left breast pain medial breast. COMPARISON: Mammography: Comparison is made with relevant prior exams. TECHNIQUE: Digital breast mammography with tomosynthesis is performed in both the craniocaudal and mediolateral oblique views along with computer-aided detection (CAD). FINDINGS: There are scattered areas of fibroglandular density (ACR BI-RADS breast composition Category b). Left: Triangular marker in the lower inner left breast without underlying abnormality at the site of patient's pain. No suspicious masses calcifications or other abnormal findings. Targeted color Doppler ultrasound scanning from 7-11 o'clock in the area the patient's pain demonstrates normal fibronodular breast tissue. There is no sonographic abnormality. Right: No suspicious masses calcifications or other abnormal findings. Results are provided to the patient at time of visit by the technologist. US/US breast LT limited mamm only IMPRESSION: No mammographic or sonographic abnormality to account for the patient's left breast pain. Recommend clinical evaluation follow-up. ASSESSMENT: BI-RADS BI-RADS 1 - Negative RECOMMENDATION: 1 year F/U This patient's information was entered into a reminder system with a target due date for their next mammogram. Electronically signed by: Maria Bunch DO 02/07/2025 11:04 AM EDT
--- OUTSIDE RECORDS SUMMARY | 2025-02-07 11:58 | XMS_ITS | Encounter Summary ---
Author Organization [employer] Address [address] [place] [address] Care Team Providers Care Cpo Name Role Phone Yi Thompson MD Primary Care Pro vider Reason for Referral * Imaging (Urgent) - Authorized Specialty Diagnoses / Procedures Referred By Contac t Referred To Contact Radiology Diagnoses Breast pain, left Procedures BI US Breast Limited Left Kika Haney CNM [address] [place] [address] Phone: tel: fax: [address] Phone: tel: fax: Referral ID Status Reason Start Date Expiration Date V isits Requested Visits Authorized [id number] Authorized 02/06/2025 02/06/2026 1 1 Encounter Details Date Type Department Care Team (Late st Contact Info) Description 02/06/2025 Orders Only [facility] [address] [place], [place] [phone] Kika Haney CNM [address] [place], [place] [phone] Breast pain, left (Primary Dx) Social History Tobacco Use Types Packs/Day Years [...] 9:30 AM EDT Medication Management [facility] [address] [place] [phone] 04/06/2025 11:15 AM EDT Office Visit [facility] [address] [place] [phone] Yi Thompson MD [address] [place] [address] Pending Results Name Type Priority Associated Diagnoses Date /Time BI US Breast Limited Left Imaging Urgent Breast pain, left 02/06/2025 Scheduled Orders Name Type Priority Associated Diagnoses Orde r Schedule BI US Breast Limited Left Imaging Urgent Breast pain, left Expected: 02/06/2025, Expires: 02/06/2026 documented as of this encounter Goals Goal Patient Goal Type Associated Problems Recent Progress Patient-Stated? Author Blood Pressure < 140/90 Blood Pressure 127/66(2024 10:18 AM EST) No Jn Shah Hemoglobin A1c < 7 Result Component 6.8( 8:59 AM EST) No Jn Shah documented as of this encounter Visit Diagnoses Diagnosis Breast pain, left- Primary documented in this encounter Additional Health Concerns Assessment Noted Time PHQ-9 Depression Total Score: 1 01/13/20 24 12:16 PM EST documented as of this encounter Care Teams Cpo Relationship Specialty Start Date End Date Yi Thompson MD [address] [place] [address] PCP - General Internal Medicine 08/20/23 documented as of this encounter
--- OUTSIDE RECORDS SUMMARY | 2025-02-07 11:58 | XMS_ITS | Encounter Summary ---
Author Organization [employer] Address [address] [place] [address] Care Team Providers Care Wedding Photographer Name Role Phone Yi Thompson MD Primary Care Pro vider Reason for Visit * Reason Comments Cough Encounter Details Date Type Department Care Team ([facility] Contact Info) Description 01/18/2025 10:20 AM EST Office Visit [facility] [address] [place] [phone] iY Culp MD [address] [place] [address] Influenza A (Primary Dx); Cough in adult [...] Take 1 tablet by mouth at bedtime. xftstgt-bstdvjyapkujl-pgqdspvr (Excedrin Migraine) 250-250-65 MG tablet Take 1 tablet by mouth every 6 (six) hours if needed for headaches. 30 tablet 1 Blood Glucose Monitoring Suppl (FreeStyle Bantam Lite) w/Device kit USE DIRECTED cetirizine (ZyrTEC) [...] AM EDT Medication Management [facility] [address] [place] [address] 04/06/2025 11:15 AM EDT Office Visit [facility] [address] [place] [address] Yi Thompson MD [address] [place] [address] documented as of this encounter Goals Goal [...] AM EST) Influenza B Negative Negative, Indeterminate [facility] Swab 01/18/2025 10:3 5 AM EST us Yi Ch MD POINT OF CARE TEST EN TER/EDIT ORDERABLES Final Result [facility] [address] [place] [phone] * (ABNORMAL) Influenza A (ID NOW Rapid Molecular) (01/18/2025 10:35 AM EST) Influenza A Positive( A) Negative, Indeterminate [facility] Swab 01/18/2025 10:3 5 AM EST us Yi Ch MD POINT OF CARE TEST EN TER/EDIT ORDERABLES Final Result [facility] [address] [place] [address] [phone] * POCT Rapid COVID Ag (01/18/2025 [...] documented as of this encounter Care Teams Wedding Photographer Relationship Specialty Start Date End Date Yi Thompson MD [address] [place] [phone] PCP - General Internal Medicine 08/20/23 documented as of this encounter
--- OUTSIDE RECORDS SUMMARY | 2025-02-07 11:58 | XMS_ITS | Encounter Summary ---
Author Organization [employer] Address [address] [place] [address] Care Team Providers Care Distillery Miller Name Role Phone Yi Thompson MD Primary Care Pro vider Reason for Visit * Reason Onset Date Comments Results 02/07/2025 Encounter Details Date Type Department Care Team ([facility] Contact Info) Description 02/07/2025 Telephone [facility] MEDICINE [address] [place] [address] Diana Beltran RN Results Social History Tobacco Use Types [...] your housing situation today? I have radha sing 04/13/[address] you li [...] encounter Miscellaneous Notes * Telephone Encounter - Diana Beltran RN - 02/07/2025 11:25 AM EDT TC placed to pt with S buckle sorter #[id number] to inform of the breast US results below per Kika Haney. Pt advised that the pain may be more musculoskeletal in nature and if this persists to follow up with Dr. Shaver at next schedule appt on 04/06/2025. Pt agreeable to this information and stated understanding. ----- Message from Kika Haney sent at 02/07/2025 11:21 AM EDT ----- Please let Sapna know no worrisome findings on breast imaging. If pain persists, may want to followup with PCP as it might be more musculoskeletal. If no findings there, I can refer to breast clinic. Thanks! documented in this encounter Plan of Treatment Upcoming Encounters Date Type Department Care Team (Late st Contact Info) Description 03/31/2025 9:30 AM EDT Medication Management [address] [address] 04/06/2025 11:15 AM EDT Office Visit [facility] [address] [place] [address] [place] [address] Yi Thompson MD [address] [place] [address] documented as of this encounter Goals Goal [...] documented as of this encounter Care Teams Distillery Miller Relationship Specialty Start Date End Date Yi Thompson MD [address] [place] [address] PCP - General Internal Medicine 08/20/23 documented as of this encounter
--- OUTSIDE RECORDS SUMMARY | 2025-02-07 11:58 | XMS_ITS | Encounter Summary ---
Author Organization [employer] Address [address] [place] [address] Care Team Providers Care Parker Name Role Phone Yi Thompson MD Primary Care Pro vider Reason for Visit * Reason Onset Date Comments Lab Orders 02/06/2025 Encounter Details Date Type Department Care Team ([facility] st Contact Info) Description 02/06/2025 Telephone [facility] MEDICINE [address] [place] [address] Yi Thompson MD [address] [place] [address] Lab Orders Social History Tobacco Use Types Packs/Day Years [...] encounter Miscellaneous Notes * Telephone Encounter - Kaitlynn Faulkner RN - 02/06/2025 11:00 AM EDT Faxed updated order to [phone]. Error message. Called [facility] Radiology, spoke to Supriya, was toldto fax to [phone]. Confirmation received. * Telephone Encounter - Kika Haney CNM - 02/06/2025 10:07 AM EDT Imaging order updated. * Telephone Encounter - Boo Major - 02/06/2025 9:59 AM EDT Tc from [facility] with [facility] stating that she needs a Corrected order for the Ultra Sound that pt is getting Tomorrow. Sienna states that it needs to say Left Breast Limited. Contact Sienna at [phone] documented in this encounter Plan of Treatment Upcoming Encounters Date Type Department Care Team (Late st Contact Info) Description 03/31/2025 9:30 AM EDT Medication Management [facility] MEDICINE [address] [place] [address] 04/06/2025 11:15 AM EDT Office Visit [facility] MEDICINE [address] [place] [address] Yi Thompson MD [address] [place] [address] documented as of this encounter Goals Goal [...] documented as of this encounter Care Teams Parker Relationship Specialty Start Date End Date Yi Thompson MD [address] [place] [address] PCP - General Internal Medicine 08/20/23 documented as of this encounter
--- OUTSIDE RECORDS SUMMARY | 2025-02-07 11:58 | XMS_ITS | Encounter Summary ---
Author Organization [employer] Address [address] [place] [address] Care Team Providers Care Permastone Mechanic Name Role Phone Yi Thompson MD Primary Care Pro vider Reason for Visit * Reason Comments Med Refill Encounter Details Date Type Department Care Team ([facility] st Contact Info) Description 01/26/2025 Refill [facility] MED & PEDS [address] [place] [address] [facility] [address] [place] [address] Social History Tobacco Use Types Packs/Day Years [...] 9:30 AM EDT Medication Management [facility] MEDICINE [address] [place] [address] 04/06/2025 11:15 AM EDT Office Visit [facility] MEDICINE [address] [place] [address] Yi Thompson MD [address] [place] [address] documented as of this encounter Goals Goal [...] documented as of this encounter Care Teams Permastone Mechanic Relationship Specialty Start Date End Date Yi Thompson MD [address] [place] [address] PCP - General Internal Medicine 08/20/23 documented as of this encounter
--- OUTSIDE RECORDS SUMMARY | 2025-02-07 11:58 | XMS_ITS | Encounter Summary ---
Author Organization [employer] Address [address] [place] [address] Care Team Providers Care Casting And Curing Operator Name Role Phone Yi Thompson MD Primary Care Pro vider Encounter Details Date Type Department Care Team ([facility] st Contact Info) Description 11/06/2024 Orders Only [facility] MEDICINE [address] [place] [address] Provider, MD Lux Social History Tobacco Use [...] Description 03/31/2025 9:30 AM EDT Medication Management [address] [address] 04/06/2025 11:15 AM EDT Office Visit [address] [address] Yi Thompson MD [address] [place] [address] documented as of this encounter Goals Goal [...] documented as of this encounter Care Teams Casting And Curing Operator Relationship Specialty Start Date End Date Yi Thompson MD [address] [place] [address] PCP - General Internal Medicine 08/20/23 documented as of this encounter
--- OUTSIDE RECORDS SUMMARY | 2025-02-07 11:58 | XMS_ITS | Encounter Summary ---
Author Organization [employer] Address [address] [place] [address] Care Team Providers Care Elevating Grader Operator Name Role Phone Yi Thompson MD Primary Care Pro vider Reason for Visit * Reason Onset Date Comments Nurse Triage 01/18/2025 Encounter Details Date Type Department Care Team ([facility] st Contact Info) Description 01/18/[address] [facility] MEDICINE [address] [place] [address] Yi Thompson MD [address] [place] [address] Nurse Triage Social History Tobacco Use Types [...] EST Triage call returned with S # [phone] [facility]. Triage call returned to patient who reports [...] Team appts available at time of call. [facility] hours and availability provided. Triage nurse informed [...] Syrup With Dextromethorphan * Telephone Encounter - Boo Pedrito - 01/18/2025 8:06 AM EST Symptoms: Cough, Runny Nose Outcome: Schedule an urgent appointment (within 1 hour) or talk to a nurse or provider soon Reason: Wheezing (high-pitched whistling sound) The caller accepted this outcome. Contact pt at [phone] documented in this encounter Plan of Treatment Upcoming Encounters Date Type Department Care Team ([facility] st Contact Info) Description 03/31/2025 9:30 AM EDT Medication Management [address] [address] 04/06/2025 11:15 AM EDT Office Visit [facility] MEDICINE [address] [place] [address] Yi Thompson MD [address] [place] [address] documented as of this encounter Goals Goal [...] documented as of this encounter Care Teams Elevating Grader Operator Relationship Specialty Start Date End Date Yi Thompson MD [address] [place] [phone] PCP - General Internal Medicine 08/20/23 documented as of this encounter
--- OUTSIDE RECORDS SUMMARY | 2025-02-07 11:59 | XMS_ITS | Encounter Summary ---
Author Organization [employer] Address [address] [place] [address] Care Team Providers Care Export Sales Manager Name Role Phone Yi Thompson MD Primary Care Pro vider Reason for Visit * Reason Comments Med Refill Encounter Details Date Type Department Care Team (Late st Contact Info) Description 09/12/2024 Refill [facility] MEDICINE [address] [place] [address] Yi Thompson MD [address] [place] [address] Type 2 diabetes mellitus without complication, without long-term current use of insulin ([facility]) Social History Tobacco Use Types Packs/Day [...] AM EDT Medication Management [facility] MEDICINE [address] [place] [address] 04/06/2025 11:15 AM EDT Office Visit [facility] MEDICINE [address] [place] [address] Yi Thompson MD [address] [place] [address] documented as of this encounter Goals Goal Patient Goal Type Associated Problems Recent Progress Patient-Stated? Author Blood Pressure < 140/90 Blood Pressure 127/66(2024 10:18 AM EST) Jn Petit Hemoglobin A1c < 7 Result Component 6.8( 8:59 AM EST) Jn Petit documented as of this encounter Visit Diagnoses Diagnosis Type 2 diabetes mellitus without complication, without long-term current use of insulin ([facility]) documented in this encounter Additional Health Concerns Assessment Noted Time PHQ-9 Depression Total Score: 1 01/13/20 24 12:16 PM EST documented as of this encounter Care Teams Export Sales Manager Relationship Specialty Start Date End Date Yi Thompson MD [address] [place] [address] PCP - General Internal Medicine 08/20/23 documented as of this encounter
--- OUTSIDE RECORDS SUMMARY | 2025-02-07 11:59 | XMS_ITS | Clinical Summary ---
Author Organization [employer] Address [address] [place] [address] Care Team Providers Care Ccnp Name Role Phone Yi Thompson MD Primary Care Pro vider Allergies Active Allergy Reactions Criticality Noted Date Comments Penicillins Hives High 12/28/2013 Other reaction(s): SWELLING , Unknown Other reaction(s): swelling pt received dose of cefazolin pre-op 07/04. Per CAT Britton, pt tolerated without issue Medications Blood Glucose Monitoring Suppl (FreeStyle [place] Lite) w/Device kit USE DIRECTED 03/24/20 22 [...] complication, without long-term current use of insulin ([facility]) Use 1 by To Skin route 4 [...] complication, without long-term current use of insulin ([facility]) TAKE 1 TABLET BY MOUTH TWICE DAILY [...] Consideration for PT once patient returns from [facility] in January. Chest pain at rest [...] 09/17/2023 Forgetfulness 04/15/2023 Overview (08/20/2023): Seen at [facility] on 07/15/2020 for right sided facial [...] for vascular referral once patient returns from [facility] in January. Irritable bowel syndrome with [...] Encounters Date Type Department Care Team Description 02/07/2025 Telephone [facility] [address] [place] [address] Diana Beltran RN Results 02/06/2025 Orders Only [facility] [address] [place] [place] [address] Rizzardini, Peter, CNM Breast pain, left (Primary Dx) 02/06/2025 Telephone [facility] [address] [place] [phone] Yi Thompson MD Lab Orders 01/26/2025 Refill [facility] [address] [place] [address] [place], Gladys, ASSOCIATE MATERIAL HANDLER 01/18/2025 10:20 AM EST Office Visit [facility] [address] [place] [phone] Yi Culp MD Influenza A (Primary Dx); Cough in adult patient 01/18/2025 Telephone [facility] [address] [place] [phone] Yi Thompson MD Nurse Triage 01/05/2025 Refill [facility] [address] [place] [address] Tala Armstrong RN 12/30/2024 Refill [facility] [address] [place], [place] [phone] Yi Thompson MD 12/21/2024 10:00 AM EST Office Visit [facility] [address] [place] [phone] Peter Tate CNM Breast pain, left (Primary Dx) 12/21/2024 Travel 12/15/2024 Telephone [facility] [address] [place] [address] Yi Thompson MD 12/09/2024 Orders Only GENERIC EXTERNAL DATA DEPARTMENT Provider, Generic External Data 12/08/2024 Refill [facility] [address] [place] [phone] Yi Thompson MD Type 2 diabetes mellitus without complication, without long-term current use of insulin ([facility]) 11/30/2024 Telephone [facility] [address] [place] [phone] Kaitlynn Faulkner, RN Results 11/29/2024 Refill [facility] [address] [place] [address] Yi Thompson MD 11/28/2024 Orders Only GENERIC [...] Description 03/31/2025 9:30 AM EDT Medication Management [facility] [address] [place] [phone] 04/06/2025 11:15 AM EDT Office Visit [facility] [address] [place] [phone] Yi Thompson MD [address] [place], [place] [phone] Health Maintenance Due Date Last Done Comments [...] Cancer Screening 11/03/2025 Tobacco Screening 12/21/2025 12/21/2024 Eye Exam 08/08/2026 08/08/2024, 07/18, 08/08/2024, Additional history exists Mammogram 02/07/2027 02/07/2025, 01/15, 01/13/2024, Additional history exists DTaP/Tdap/Td Vaccines (3 - [...] Procedure Name Priority Date/Time Associated Diagnosis Comments BI US BREAST LIMITED LEFT Urgent 02/07/2025 10:44 AM EDT BI MAMMOGRAM DIAGNOSTIC TOMOSYNTHESIS BILATERAL Urgent 02/07/2025 10:10 AM EDT Breast pain, left POCT INFLUENZA B (ID NOW RAPID MOLECULAR) [...] without long-term current use of insulin (CMS/HCC) ALBUMIN, RANDOM URINE W/CREATININE Routine 01/12/2024 3:10 PM EST HEPATITIS C AB W/REFL TO HCV RNA, QN, PCR Routine 01/12/2024 8:56 AM EST Annual physical exam HPV MRNA E6/E7 Routine 10/25/2020 10:02 AM EST THINPREP PAP Routine 10/25/2020 10:02 AM EST from Last 3 Months or Most Recently Relevant to Health Maintenance Results * BI US Breast Limited Left (02/07/2025 10:44 AM EDT) Anatomical Region Laterality Modality Breast Left Ultrasound 02/07/2025 10:4 4 AM EDT Narrative 02/07/2025 11:07 AM EDT ? [facility] ? [address] ?[place] [address] ? Ultrasound Report ? Signed ? Patient: Fany Radha,Sapna C ?MR#: M ?? [id number] ? : 1960 ?Acct:[id number] ? Age/Sex: 64 / F ?ADM Date: 03/25/25 ? Loc: HO.MAMMO ? Attending Dr: Peter Tate CNM ? Ordering Physician: PETER TATE CNM ?? Date of Service: 02/07/25 ?? Procedure(s): US breast LT limited mamm only ?? Accession Number(s): [id number] ? cc: Yi Thompson MD; PETER TATE CNM ? EXAMINATION: ?? MM DIAGNOSTIC DIGITAL BREAST TOMOSYNTHESIS, BILATERAL ?? Limited left breast ultrasound. ? CLINICAL INFORMATION: ? Left breast pain medial breast. ? COMPARISON: ?? Mammography: Comparison is made with relevant prior exams. ? TECHNIQUE: ?? Digital breast mammography with tomosynthesis is performed in both the ?? craniocaudal and mediolateral oblique views along with computer-aided ?? detection (CAD). ? FINDINGS: ?? There are scattered areas of fibroglandular density (ACR BI-RADS breast ?? composition Category b). ?? Left: ?? Triangular marker in the lower inner left breast without underlying ?? abnormality at the site of patient's pain. ?? No suspicious masses calcifications or other abnormal findings. ? Targeted color Doppler ultrasound scanning from 7-11 o'clock in the ?? area the patient's pain demonstrates normal fibronodular breast tissue. ?? There is no sonographic abnormality. ? Right: No suspicious masses calcifications or other abnormal findings. ? Results are provided to the patient at time of visit by the ?? technologist. ? US/US breast LT limited mamm only ?? IMPRESSION: ?? No mammographic or sonographic abnormality to account for the patient's ?? left breast pain. Recommend clinical evaluation follow-up. ? ASSESSMENT: ? BI-RADS BI-RADS 1 - Negative ? RECOMMENDATION: ?? 1 year F/U ? This patient's information was entered into a reminder system with a ?? target due date for their next mammogram. ? Electronically signed by: ??Maria Allydio DO ??02/07/2025 11:04 AM EDT ?? RP ? Dictated By: ?Maria Bunch DO ? Signed By: ?<Electronically signed by Maria Bunch, DO in OV> ? 02/07/25 1104 ? DD/ 1044 ? TD/TT: 02/07/25 1058 ? Ballet Dancer: ? Procedure Note Lissy, Image - 02/07/2025 [facility] [address] [place] [address] [place] [address] Ultrasound Report Signed Patient: Sapna Herzog CMR#: M [id number] : 9Acct:[id number] Age/Sex: 64 / FADM Date: 02/07/25 Loc: HO.MAMMO Attending Dr: Peter Tate CNM Ordering Physician: PETER TATE CNM Date of Service: 02/07/25 Procedure(s): US breast LT limited mamm only Accession Number(s): [id number] cc: Yi Thompson MD; PETER TATE CNM EXAMINATION: MM DIAGNOSTIC DIGITAL BREAST TOMOSYNTHESIS, BILATERAL Limited left breast ultrasound. CLINICAL INFORMATION: Left breast pain medial breast. COMPARISON: Mammography: Comparison is made with relevant prior exams. TECHNIQUE: Digital breast mammography with tomosynthesis is performed in both the craniocaudal and mediolateral oblique views along with computer-aided detection (CAD). FINDINGS: There are scattered areas of fibroglandular density (ACR BI-RADS breast composition Category b). Left: Triangular marker in the lower inner left breast without underlying abnormality at the site of patient's pain. No suspicious masses calcifications or other abnormal findings. Targeted color Doppler ultrasound scanning from 7-11 o'clock in the area the patient's pain demonstrates normal fibronodular breast tissue. There is no sonographic abnormality. Right: No suspicious masses calcifications or other abnormal findings. Results are provided to the patient at time of visit by the technologist. US/US breast LT limited mamm only IMPRESSION: No mammographic or sonographic abnormality to account for the patient's left breast pain. Recommend clinical evaluation follow-up. ASSESSMENT: BI-RADS BI-RADS 1 - Negative RECOMMENDATION: 1 year F/U This patient's information was entered into a reminder system with a target due date for their next mammogram. Electronically signed by: Maria Bunch DO 02/07/2025 11:04 AM EDT Dictated By: Maria Bunch DO Signed By: <Electronically signed by Maria Bunch DO in OV> 02/07/25 1104 DD/ 1044 TD/TT: 02/07/25 1058 Ballet Dancer: us Peter Tate CNM IMG US PROCEDURES Edited Result - Final * BI Mammogram Diagnostic Tomosynthesis Bilateral (02/07/2025 10:10 AM EDT) Anatomical Region Laterality Modality Breast Bilateral Mammography 02/07/2025 10:1 0 AM EDT Narrative 02/07/2025 11:07 AM EDT ? [facility] ? [address] ?[place] [address] ?[phone] ? Mammography Report ? Signed ? Patient: Fany GarciaSapna ?MR#: M ?? [id number] ? : 1960 ?Acct:[id number] ? Age/Sex: 64 / F ?ADM Date: 02/07/25 ? Loc: HO.MAMMO ? Attending Dr: Peter Tate CNM ? Ordering Physician: PETER TATE CNM ?Results: 1 ?? Negative ? Date of Service: 02/07/25 ?Follow Up: 1 Year From Orig ?? inal Mammogram ? Procedure(s): MM tomosynthesis diagnostic BI ?? Accession Number(s): [id number] ? cc: Yi Thompson MD; PETER TATE CNM ? EXAMINATION: ?? MM DIAGNOSTIC DIGITAL BREAST TOMOSYNTHESIS, BILATERAL ?? Limited left breast ultrasound. ? CLINICAL INFORMATION: ? Left breast pain medial breast. ? COMPARISON: ?? Mammography: Comparison is made with relevant prior exams. ? TECHNIQUE: ?? Digital breast mammography with tomosynthesis is performed in both the ?? craniocaudal and mediolateral oblique views along with computer-aided ?? detection (CAD). ? FINDINGS: ?? There are scattered areas of fibroglandular density (ACR BI-RADS breast ?? composition Category b). ?? Left: ?? Triangular marker in the lower inner left breast without underlying ?? abnormality at the site of patient's pain. ?? No suspicious masses calcifications or other abnormal findings. ? Targeted color Doppler ultrasound scanning from 7-11 o'clock in the ?? area the patient's pain demonstrates normal fibronodular breast tissue. ?? There is no sonographic abnormality. ? Right: No suspicious masses calcifications or other abnormal findings. ? Results are provided to the patient at time of visit by the ?? technologist. ? MM/MM tomosynthesis diagnostic BI ?? IMPRESSION: ?? No mammographic or sonographic abnormality to account for the patient's ?? left breast pain. Recommend clinical evaluation follow-up. ? ASSESSMENT: ? BI-RADS BI-RADS 1 - Negative ? RECOMMENDATION: ?? 1 year F/U ? This patient's information was entered into a reminder system with a ?? target due date for their next mammogram. ? Electronically signed by: ??Maria Bunch DO ??02/07/2025 11:04 AM EDT ?? RP ? Dictated By: ?Maria Bunch DO ? Signed By: ?<Electronically signed by Maria Bunch, DO in OV> ? 02/07/25 1104 ? DD/ 1010 ? TD/TT: 02/07/25 1035 ? Ballet Dancer: ? Procedure Note Lissy, Rocio - 02/07/2025 [place] [facility] [address] [place], [place] [phone] Mammography Report Signed Patient: Sapna Herzog CMR#: M [id number] : 9Acct:[id number] Age/Sex: 64 / FADM Date: 02/07/25 Loc: HO.MAMMO Attending Dr: Peter Tate CNM Ordering Physician: PETER TATEesults: 1 Negative Date of Service: 02/07/25Follow Up: 1 Year From [facility] Mammogram Procedure(s): MM tomosynthesis diagnostic BI Accession Number(s): [id number] cc: Yi Thompson MD; PETER TATE CNM EXAMINATION: MM DIAGNOSTIC DIGITAL BREAST TOMOSYNTHESIS, BILATERAL Limited left breast ultrasound. CLINICAL INFORMATION: Left breast pain medial breast. COMPARISON: Mammography: Comparison is made with relevant prior exams. TECHNIQUE: Digital breast mammography with tomosynthesis is performed in both the craniocaudal and mediolateral oblique views along with computer-aided detection (CAD). FINDINGS: There are scattered areas of fibroglandular density (ACR BI-RADS breast composition Category b). Left: Triangular marker in the lower inner left breast without underlying abnormality at the site of patient's pain. No suspicious masses calcifications or other abnormal findings. Targeted color Doppler ultrasound scanning from 7-11 o'clock in the area the patient's pain demonstrates normal fibronodular breast tissue. There is no sonographic abnormality. Right: No suspicious masses calcifications or other abnormal findings. Results are provided to the patient at time of visit by the technologist. MM/MM tomosynthesis diagnostic BI IMPRESSION: No mammographic or sonographic abnormality to account for the patient's left breast pain. Recommend clinical evaluation follow-up. ASSESSMENT: BI-RADS BI-RADS 1 - Negative RECOMMENDATION: 1 year F/U This patient's information was entered into a reminder system with a target due date for their next mammogram. Electronically signed by: Maria Bunch DO 02/07/2025 11:04 AM EDT Dictated By: Maria Bunch DO Signed By: <Electronically signed by Maria Bunch DO in OV> 02/07/25 1104 DD/ 1010 TD/TT: 02/07/25 1035 Ballet Dancer: us Peter Tate CNM IMG BI PROCEDURES Edited Result - Final * Influenza B (ID NOW Rapid Molecular) (01/18/2025 10:35 AM EST) Influenza B Negative Negative, Indeterminate [facility] Swab 01/18/2025 10:3 5 AM EST us Yi Ch MD POINT OF CARE TEST EN TER/EDIT ORDERABLES Final Result Performing Organization Address City/[facility]/ZIP Co de Phone Number [facility] [address] [place] [phone] * (ABNORMAL) Influenza A (ID NOW Rapid Molecular) (01/18/2025 10:35 AM EST) Influenza A Positive( A) Negative, Indeterminate [facility] Swab 01/18/2025 10:3 5 AM EST us Yi Ch MD POINT OF CARE TEST EN TER/EDIT ORDERABLES Final Result Performing Organization Address [facility] Co de Phone Number [facility] [address] [place] [phone] * POCT Rapid COVID Ag (01/18/2025 10:22 AM EST) Rapid COVID Ag Negative Swab 01/18/2025 10:2 2 AM EST Yi Ch MD POINT OF CARE TEST EN TER/EDIT ORDERABLES Final Result * FL Guidance in OR (12/09/2024 8:24 AM EST) Anatomical Region Laterality Modality X-Ray Angiograph y 12/09/2024 8:24 AM EST Narrative 12/09/2024 2:24 PM EST ? [facility] ?[address] ?[place] [address] ? Fluoroscopy Report ? Signed ? Patient: Fany Radha,Sapna C ?MR#: M ?? [id number] ? : 1960 ?Acct:[id number] ? Age/Sex: 63 / F ?ADM Date: 12/09/24 ? Loc: HO.SSS ? Attending Dr: Jcarlos Gee MD ? Ordering Physician: Jcarlos Gee MD ?? Date of Service: 12/09/24 ?? Procedure(s): FL guidance in OR ?? Accession Number(s): [id number] ? cc: Jcarlos Gee MD; Yi Thompson [...] DD/ 0824 ? TD/TT: 12/09/24 0842 ? Ballet Dancer: ? Procedure Note Lissy, Image - 12/09/[address] [address] Fluoroscopy Report Signed Patient: Sapna Herzog CMR#: M [id number] : 9Acct:[id number] Age/Sex: 63 / FADM Date: 12/09/24 Loc: HO.[facility] Attending Dr: Jcralos Gee MD Ordering Physician: Jcarlos Gee MD Date of Service: 12/09/24 Procedure(s): FL guidance in OR Accession Number(s): [id number] cc: Jcarlos Gee MD; Yi Thompson MD [...] Milton Duckworth MD 12/09/2024 02:22 PM EST RP Dictated By: Milton Duckworth MD Signed By: <Electronically signed by Milton Duckworth MD in OV> 12/09/24 1422 DD/ 0824 TD/TT: 12/09/24 0842 Ballet Dancer: us [facility] External Provider IMG IR PROCEDURES Final Result * (ABNORMAL) Glucose, Whole Blood (12/09/2024 6:16 AM EST) Glucose, Whole Blood 162(H) 60 - 115 mg/dL [facility] Comment:METER #: [id number] 12/09/2024 6:16 AM EST 12/09/2024 6:19 AM EST Generic External Data Provider LAB BLOOD ORDERAB LES Final Result [facility] [address] [place] [phone] * XR CERVICAL SPINE 3V (11/28/2024 3:39 PM EST) Anatomical Region Laterality Modality Abdomen Radiographic Criss ging 11/28/2024 3:39 PM EST Narrative 11/30/2024 3:35 PM EST ? [place] [facility] ?[address] ?[place] [address] ?XRay Report ? Signed ? Patient: Fany Radha,Sapna C ?MR#: M ?? [id number] ? : 1960 ?Acct:[id number] ? Age/Sex: 63 / F ?ADM Date: 11/28/24 ? Loc: HO.XRAY ? Attending Dr: Deepthi Velazquez MD ? Ordering Physician: Deepthi Velazquez MD ?? Date of Service: 11/28/24 ?? Procedure(s): XR cervical spine 3V ?? Accession Number(s): [id number] ? cc: Deepthi Velazquez MD; Yi Thompson [...] DD/ 1539 ? TD/TT: 11/28/24 1557 ? Ballet Dancer: ? Procedure Note Lissy, Image - 11/30/[address] [address] XRay Report Signed Patient: Sapna Herzog CMR#: M [id number] : 9Acct:[id number] Age/Sex: 63 / FADM Date: 11/28/24 Loc: [facility] Attending Dr: Deepthi Velazquez MD Ordering Physician: Deepthi Velazquez MD Date of Service: 11/28/24 Procedure(s): XR cervical spine 3V Accession Number(s): [id number] cc: Deepthi Velazquez MD; Yi Thompson MD [...] 11/30/24 1532 DD/ 1539 TD/TT: 11/28/24 1557 Ballet Dancer: us [facility] External Provider IMG XR PROCEDURES Final Result * (ABNORMAL) VITAMIN D 25-OH (D2 AND D3) (11/28/2024 3:37 PM EST) Vitamin D, 25-OH, D2 <4 ng/mL [facility] Comment:This test was conchis daley and its analytical performancecharacteristics have been determined by [employer] [place], [place]. It hasnot been cleared or approved by the U.S. Food and DrugAdministration. This assay has been validated pursuantto the CLIA regulations and is used for clinicalpurposes.THIS TEST WAS PERFORMED AT:[facility] [place] [address]BJSRSHLANUPAMA LEVI MD,PHD Vitamin D, 25-OH, D3 23 ng/mL [facility] Comment:This test was develo ped and its analytical performancecharacteristics have been determined by [employer] [place], [place]. It hasnot been cleared or approved by the U.S. Food and DrugAdministration. This assay has been validated pursuantto the CLIA regulations and is used for clinicalpurposes. Vitamin D, 25-OH, Total 23(A) 30 - 100 ng/mL [facility] Comment:Vitamin D, 25-Hydrox y reports concentrations [...] = 30 ng/mL.For additional information, please refer tohttp://education.[employer]/faq/RCI280(This link is being provided for informational/educational purposes only.) 11/28/2024 3:37 PM EST 11/28/2024 3:37 PM EST us Generic External Data Provider LAB BLOOD ORDERAB LES Final Result [facility] [address] [place] [phone] [phone] * Vitamin B12 (Cobalamin) and Folate Panel, Serum (11/28/2024 3:37 PM EST) Vitamin B12 295 200 - 900 pg/mL [facility] Comment:NORMAL 200-900 PG/ML INDETERMINATE 160-199 PG/ML DEFICIENT < 160 PG/ML Folate 11.5 > or = 4.0 ng/mL [facility] Comment:Reference Values:> o r = 4.0 ng/mL< 4.0 ng/mL suggests folate deficiency Methotrexate, aminopterin and folinic acid(leucovorin) are chemotherapeutic agents whose molecularstructures are similar to folate; therefore, the Architectfolate assay cannot be used for patients using these drugs. 11/28/2024 3:37 PM EST 11/28/2024 3:37 PM EST Generic External Data Provider LAB BLOOD ORDERAB LES Final Result Performing Organization Address City/[facility]/ZIP Co de Phone Number [facility] [address] [place] [phone] * TSH with Reflex to Free T4 (11/28/2024 3:37 PM EST) TSH reflex Free T4 2.36 0.32 - 4.0 uIU/mL [facility] 11/28/2024 3:37 PM EST 11/28/2024 3:37 PM EST Generic External Data Provider LAB BLOOD ORDERAB LES Final Result Performing Organization Address City/[facility]/ZIP Co de Phone Number [facility] [address] [place] [phone] * (ABNORMAL) CBC auto differential (11/28/2024 3:37 PM EST) Only the most recent of2 resultswithin the time period is included. White Blood Count 8.0 4.8 - 10.8 X10*3/uL [facility] Red Blood Count 4.57 4.20 - 5.50 X10*6/uL [facility] Hemoglobin 10.8(L) 12.0 - 16.0 g/dl [facility] Hematocrit 34.5(L) 37.0 - 47.0 % [facility] Mean Corpuscular Volume 75.5(L) 80.0 - 98.0 fL [facility] Mean Corpuscular Hemoglobin 23.6(L) 27.0 - 33.0 pg [facility] Mean Corpuscular HGB Conc 31.3 31.0 - 35.0 g/dl [facility] Red Cell Distribution Width 15.0 11.0 - 16.0 % [facility] Platelet Count 266 160 - 400 X10*3/uL [facility] Mean Platelet Volume 10.5 9.4 - 12.3 fL [facility] Neutrophils Percent Auto 65.8 45 - 73 % [facility] Imm Gran Pct Auto 0.5(H) 0.0 - 0.4 % [facility] Lymphocytes Percent Auto 23.7 20 - 40 % [facility] Monocytes Percent Auto 6.4 2 - 11 % [facility] Eosinophils Percent Auto 2.5 0 - 4 % [facility] Basophils Percent Auto 1.1 0 - 2 % [facility] NRBC Pct Auto 0.0 0.0 - 0.2 /100WBC [facility] Neutrophils Absolute Auto 5.3 2.0 - 8.3 x10*3/uL [facility] Imm Gran Abs Auto 0.04(H) 0.00 - 0.03 X10*3/uL [facility] Lymphocytes Absolute Auto 1.9 1.2 - 4.9 X10*3/uL [facility] Monocytes Absolute Auto 0.5 0.1 - 1.2 X10*3/uL [facility] Eosinophils Absolute Auto 0.2 0.0 - 0.4 X10*3/uL [facility] Basophils Absolute Auto 0.1 0.0 - 0.2 X10*3/uL [facility] NRBC Abs Auto 0.000 0.0 - 0.012 X10*3/uL [facility] 11/28/2024 3:37 PM EST 11/28/2024 3:37 PM EST us Generic External Data Provider LAB BLOOD ORDERAB LES Final Result [facility] [address] [place] [phone] * Sed Rate by Modified Jarodergren (11/28/2024 3:37 PM EST) Erythrocyte Sedimentation Rate 17 0 - 20 MM/HR [facility] Comment:Patients with polycy themia and many hemoglobin abnormalitiesmay have depressed sed rates whereas patients with anemiamay have elevated sed rates. 11/28/2024 3:37 PM EST 11/28/2024 3:37 PM EST Generic External Data Provider LAB BLOOD ORDERAB LES Final Result Performing Organization Address [facility] Phone Number [facility] [address] [place] [phone] * T4, Free (11/28/2024 3:37 PM EST) Pathologist [facility] Free T4 (Free Thyroxine) 1.31 0.71 - 1.85 ng/dL [facility] 11/28/2024 3:37 PM EST 11/28/2024 3:37 PM EST Generic External Data Provider LAB BLOOD ORDERAB LES Final Result Performing Organization Address [facility] Phone Number [facility] [address] [place] [phone] * (ABNORMAL) Comprehensive Metabolic Panel (11/28/2024 3:37 PM EST) Only the most recent of2 resultswithin the time period is included. Pathologist [facility] Sodium 144 135 - 145 mmol/L [facility] Potassium 4.2 3.3 - 5.1 mmol/L [facility] Chloride 106 96 - 108 mmol/L [facility] Carbon Dioxide 24 22 - 29 mmol/L [facility] Anion Gap 18 12 - 20 [facility] Urea Nitrogen (BUN) 29(H) 9 - 16 mg/dL [facility] Creatinine, Serum 0.76 0.5 - 1.4 mg/dL [facility] Estimated Glomerular Filt Rate >60 [facility] Comment:Chronic Kidney Disea se: Estimated GFR < 60 mL/min/1.72v8Iochmx Kidney Disease: Estimated GFR < 15 mL/min/1.73m2 Glucose 141(H) 60 - 115 mg/dL [facility] Calcium 9.7 8.4 - 10.2 mg/dL [facility] Bilirubin, Total 0.2 0.0 - 1.0 mg/dL [facility] Aspartate Amino Transferase 22 5 - 31 U/L [facility] Alanine Aminotransferase 20 0 - 31 U/L [facility] Total Protein 8.2(H) 6.5 - 8.0 g/dL [facility] Albumin Level 4.5 3.5 - 5.0 g/dL [facility] Alkaline Phosphatase 74 39 - 117 U/L [facility] 11/28/2024 3:37 PM EST 11/28/2024 3:37 PM EST us Generic External Data Provider LAB BLOOD ORDERAB LES Final Result Performing Organization Address [facility] de Phone Number [facility] [address] [place] [phone] * High Sensitivity Troponin I (11/20/2024 3:04 PM EST) Only the most recent of2 resultswithin the time period is included. TROPONIN I HIGH SENSITIVITY 4.7 <3.5 - 17.0 ng/L [facility] Comment:The [place] high sens itivity Troponin-I results should beused in conjunction with other diagnostic information suchas ECG, clinical observations and information, and patientsymptoms to aid in the diagnosis of MD. 11/20/2024 3:04 PM EST 11/20/2024 3:08 PM EST us Generic External Data Provider LAB BLOOD ORDERAB LES Final Result Performing Organization Address City/[facility]/ZIP Co de Phone Number [facility] [address] [place] [phone] * XR Chest 1 View (11/20/2024 2:07 PM EST) Anatomical Region Laterality Modality Chest Radiographic Criss ging 11/20/2024 2:07 PM EST Narrative 11/20/2024 2:09 PM EST ? [facility] ?[address] ?[place] [address] ?XRay Report ? Signed ? Patient: Fany Radha,Sapan C ?MR#: [id number] ?? [id number] ? : 1960 ?Acct:[id number] ? Age/Sex: 63 / F ?ADM Date: 11/20/24 ? Loc: HO.ED ? Attending Dr: ? Ordering Physician: Rocael Pearce ?? Date of Service: 11/20/24 ?? Procedure(s): XR chest 1V ?? Accession Number(s): [id number] ? cc: Rocael Pearce; Yi Thompson MD [...] MD in OV> ?11/20/24 1408 ? DD/ 06 ? TD/TT: 11/20/241406 ? Ballet Dancer: ? Procedure Note Rocio Yuan - 11/20/[address] [address] XRay Report Signed Patient: Sapna Herzog CMR#: [id number] : 9Acct:[id number] Age/Sex: 63 / FADM Date: 11/20/24 Loc: HO.ED Attending Dr: Ordering Physician: Rocael Pearce Date of Service: 11/20/24 Procedure(s): XR chest 1V Accession Number(s): [id number] cc: Rocael Pearce; Yi Thompson MD CLINICAL [...] in OV> 11/20/24 1408 DD/ 140 TD/TT: 11/20/24 140 Ballet Dancer: [facility] External Provider IMG XR PROCEDURES Edited Result - Final * Urinalysis, Complete, with Reflex to Culture (11/20/2024 1:32 PM EST) Color Urine Yellow [facility] Appearance Urine Clear [facility] PH 6.0 5.0 - 9.0 [facility] Glucose Urine UA Negative Negative mg/dL [facility] Urine Blood Trace Negative [facility] Specific [place] - Urine 1.010 1.005 - 1.025 [facility] Urine Protein Negative Neg-Trace mg/dL [facility] Urine Ketones Negative Negative mg/dL [facility] Nitrite Urine Negative Negative [facility] Leukocyte Esterase Urine Negative Negative [facility] RBC Urine 0-2 0 - 2 /HPF [facility] Urine WBC 0-5 0 - 5 /HPF [facility] Urine Squamous Epithelial Cell 0-2 0 - 2 /HPF [facility] Urine Bacteria None Seen None Seen [facility] Hyaline Casts, Urine 0-2 0 - 2 /LPF [facility] 11/20/2024 1:32 PM EST 11/20/2024 1:36 PM EST Narrative [facility] - 11/20/2024 1:48 PM EST 1331Urine, Clean Catch Generic External Data Provider LAB URINE ORDERAB LES Final Result Performing Organization Address [facility] Co de Phone Number [facility] [address] [place] [phone] * SARS-CoV-2 RNA, Influenza A/B, and RSV RNA, Ql NAAT (11/20/2024 12:03 PM EST) Pathologist [facility] Influenza A PCR NEGATIVE Negative [facility] Influenza B PCR NEGATIVE Negative [facility] Resp Syncy Virus RNA Qual PCR NEGATIVE Negative [facility] SARS COV2 PCR NEGATIVE Negative [facility] Comment:All test results mus t [...] use by authorized laboratories.Testing performed on the Intio GeneXpert utilizingreal-time RT-PCR.All SARS CoV2 and positive influenza A/B results arereported to [facility]. 11/20/2024 12:0 3 PM EST 11/20/2024 12:05 PM EST us Generic External Data Provider LAB MICROBIOLOGY - GENERAL ORDERABLES Final Result Performing Organization Address [facility] Co de Phone Number [facility] [address] [place] [phone] * D Dimer High Sensitivity (11/20/2024 12:02 PM EST) Pathologist [facility] D Dimer High Sensitivity <150 NG/ML [facility] Comment:D-DIMER HS REFERENCE RANGENote: Our assay [...] ORDERAB LES Final Result Performing Organization Address [facility] Co de Phone Number [facility] [address] [place] [phone] * Partial Thromboplastin Time, Activated (APTT) (11/20/2024 12:02 PM EST) Partial Thromboplastin Time 35.0 26.0 - 36.8 SEC [facility] Comment:For information rega rding the monitoring of direct thrombininhibitors, please refer to Pharmacy. 11/20/2024 12:0 2 PM EST 11/20/2024 12:05 PM EST [employer] External Data Provider LAB BLOOD ORDERAB LES Final Result Performing Organization Address [facility] Co de Phone Number [facility] [address] [place] [phone] * Prothrombin Time-INR (11/20/2024 12:02 PM EST) Prothrombin Time 11.5 10.9 - 12.4 SEC [facility] INTERNATIONAL NORM RATIO 1.0 0.9 - 1.1 [facility] Comment:INTERNATIONAL NORMAL IZED RATIO (INR) REFERENCE [...] ORDERAB LES Final Result Performing Organization Address [facility] Co de Phone Number [facility] [address] [place] [phone] * B Type Natriuretic Peptide (BNP) (11/20/2024 12:02 PM EST) B Type Natriuretic Peptide 16 <100 pg/mL [facility] Comment:For those patients w ho are being treated with Natrecor(nesiritide, recombinant BNP), BNP testing should beperformed at least two hours post treatment in order toensure that only endogenous levels of BNP are detected. 11/20/2024 12:0 2 PM EST 11/20/2024 12:05 PM EST Generic External Data Provider LAB BLOOD ORDERAB LES Final Result Performing Organization Address [facility] Phone Number [facility] [address] [place] [phone] * Hm Colonoscopy (11/03/2024 6:36 PM EST) Historical Provider HEALTH MAINTENANCE Final Result * (ABNORMAL) POCT HGB A1C (10/28/2024 8:59 AM EST) Hemoglobin A1C 6.8(A) 4.0 - 6.0 % QC Media Lot # [id number] Lot# Expiration Date 710 Blood 10/28/2024 8:59 AM EST [facility] POINT OF CARE TEST ENTER/ EDIT ORDERABLES Final Result * Lipid Panel, Standard (05/16/2024 11:43 AM EDT) Triglycerides 85 <150 mg/dL [facility] Comment:Desirable Triglyceri de: less than 150 mg/dLBorderline High Triglyceride 150-199 mg/dLHigh Triglyceride: 200-499 mg/dLVery High Triglyceride: greater than or equal to 5OO mg/dL Cholesterol 124 <200 mg/dL [facility] Comment:Desirable Cholestero l: less than 200 mg/dLBorderline High Cholesterol: 200-239 mg/dLHigh Cholesterol: greater than 239 mg/dL LDL Cholesterol Calculated 62 <100 mg/dL [facility] Comment:Desirable LDL: less than 100 mg/dLNear Optimal/Above Optimal LDL: 110- 129 mg/dLBorderline High LDL: 130-159 mg/dLHigh LDL: 160-189 mg/dLVery High LDL: greater than or equal to 190 mg/dL HDL Cholesterol 45 >40 mg/dL [facility] Comment:Desirable HDL: great er than 40 mg/dL Note: This HDL assay may give artificially low results in patients with liver disease. Blood Venous blood specimen / Unknown 05/16/2024 11:43 AM EDT 05/16/2024 11:49 AM EDT us Yi Cleary MD LAB BLOOD ORDERAB LES Final Result [facility] [address] [place] [address] [phone] * Albumin, Random Urine W/Creatinine (01/12/2024 3:10 PM EST) Creatinine, Urine 31.68 mg/dL [facility] Microalbumin Urine 5.0 mg/L [facility] Microalbum Creatinine Ratio Ur 15.7 <30 ug/mg cr [facility] Comment:Albumin/Creatinine R atio Reference Ranges: Normal: < 30 ug/mg creatinine Microalbuminuria: 30 - 300 ug/mg creatinineClinical Albuminuria: > 300 ug/mg creatinine 01/12/2024 3:10 PM EST 01/12/2024 4:41 PM EST Yi Cleary MD LAB URINE ORDERAB LES Final Result Performing Organization Address [facility] Co de Phone Number [facility] [address] [place] [phone] * Hepatitis C Antibody with Reflex to HCV, RNA, Quantitative, Real-Time PCR (01/12/2024 8:56 AM EST) Hepatitis C Antibody Nonreactive Nonreactive [facility] Comment:Antibodies to HCV no t detected; does not exclude early acuteHCV infection. Blood Venous blood specimen / Unknown 01/12/2024 8:56 AM EST 01/12/2024 11:12 AM EST Yi Cleary MD LAB BLOOD ORDERAB LES Final Result Performing Organization Address [facility] de Phone Number [facility] [address] [place] [phone] * THINPREP PAP (10/25/2020 10:02 AM [...] historic and ?? current clinical information. ?? Order Entry : SEE COMMENT [facility] Comment: [place], CT(ASCP) CT screening location: [address] ??[phone] Interpretation/R esult: Negative for intraepithelial lesion or malignancy. [facility] LMP: NONE [facility] Prev. BX: NONE [facility] Prev. PAP: NONE [facility] SOURCE: None given [facility] Statement Of Adequacy: SEE COMMENT [facility] Comment: Satisfactory for evaluation. Endocervical/transformation zone component present. 10/25/2020 10:0 2 AM EST [facility] LAB PATHOLOGY ORDERABLES Final Result Performing Organization Address [facility] de Phone Number [facility] [address] * HPV mRNA E6/E7 (10/25/2020 10:02 AM EST) HPV nRNA E6/E7 Not Detected Not Detected [facility] Comment: This test was performed using the APTIMA HPV Assay ([employer] This assay detects E6/E7 viral messenger RNA (mRNA) from 14 high-risk HPV types (16,18,31,33,35,39,45,51,52,56,58,59,66,68). ?? The analytical performance characteristics of this assay have been determined by [employer]. The modifications have not been cleared or approved by the FDA. This assay has been validated pursuant to the CLIA regulations and is used for clinical purposes. 10/25/2020 10:0 2 AM EST [facility] LAB BLOOD ORDERABLES Cammy l Result Performing Organization Address [facility] de Phone Number [facility] [address] from Last 3 Months or Most Recently Relevant to Health Maintenance [place] [address] [address] [address] [employer] Care Teams Ccnp Relationship Specialty Start Date End Date Yi Thompson MD [address] [place] [phone] PCP - General Internal Medicine 08/20/23
--- OUTSIDE RECORDS SUMMARY | 2025-02-07 11:59 | XMS_ITS | Encounter Summary ---
Author Organization [employer] Address [address] [place] [phone] Care Team Providers Care Beam Racker Name Role Phone Yi Thompson MD Primary Care Pro vider Reason for Visit * Reason Comments Med Refill Encounter Details Date Type Department Care Team (Late st Contact Info) Description 05/03/2024 Refill [facility] [address] [place] [phone] Yi Thompson MD [address] [place] [address] Social History Tobacco Use Types Packs/Day Years [...] Medication Management [facility] [address] [place] [phone] 04/06/2025 11:15 AM EDT Office Visit [facility] [address] [place] [phone] Yi Thompson MD [address] [place] [phone] documented as of this encounter Goals Goal [...] documented as of this encounter Care Teams Beam Racker Relationship Specialty Start Date End Date Yi Thompson MD [address] [place] [address] [place] [address] PCP - General Internal Medicine 08/20/23 documented as of this encounter
--- OUTSIDE RECORDS SUMMARY | 2025-02-07 11:59 | XMS_ITS | Encounter Summary ---
Author Organization [employer] Address [address] [place] [address] Care Team Providers Care Clinical Research Manager Name Role Phone Yi Thompson MD Primary Care Pro vider Reason for Visit * Reason Onset Date Comments Nurse Triage 02/15/2024 Encounter Details Date Type Department Care Team ([facility] st Contact Info) Description 02/15/2024 Telephone [facility] [address] [place] [address] Yi Thompson MD [address] [place] [address] Nurse Triage Social History Tobacco Use Types [...] 02/15/2024 12:44 PM EDT Triage call with Moca Is Analyst ID [id number] Pt reports headache frontal and back of [...] 400pm. Pt is advised to come to [facility] which is open till 8pm this evening. [...] pain medicine * Telephone Encounter - Natali Alex - 02/15/2024 11:47 AM EDT Symptom: Headache Outcome: Transfer to a nurse or provider NOW! Reason: Sudden worst headache of life now Tingling sensation The caller accepted this outcome Chilean speaker documented in this encounter Plan of Treatment Upcoming Encounters Date Type Department Care Team (Late st Contact Info) Description 03/31/2025 9:30 AM EDT Medication Management [facility] [address] [place] [phone] 04/06/2025 11:15 AM EDT Office Visit [facility] [address] [place] [phone] Yi Thompson MD [address] [place] [address] documented as of this encounter Visit Diagnoses Not on filedocumented in this encounter Additional Health Concerns Assessment Noted Time PHQ-9 Depression Total Score: 1 01/13/20 24 12:16 PM EST documented as of this encounter Care Teams Clinical Research Manager Relationship Specialty Start Date End Date Yi Thompson MD [address] [place] [phone] PCP - General Internal Medicine 08/20/23 documented as of this encounter
--- OUTSIDE RECORDS SUMMARY | 2025-02-07 11:59 | XMS_ITS | Encounter Summary ---
Author Organization [employer] Address [address] [place] [address] Care Team Providers Care Tank Bottom Assembler Name Role Phone Yi Thompson MD Primary Care Pro vider Reason for Visit * Reason Comments Med Refill Encounter Details Date Type Department Care Team ([facility] st Contact Info) Description 05/20/2024 Refill [facility] [address] [place] [phone] Name, MD Ronny [address] [place] [address] Social History Tobacco Use Types Packs/Day Years [...] Description 03/31/2025 9:30 AM EDT Medication Management [facility] [address] [place] [address] 04/06/2025 11:15 AM EDT Office Visit [facility] [address] [place] [phone] Yi Thompson MD [address] [place] [address] documented as of this encounter Goals Goal [...] documented as of this encounter Care Teams Tank Bottom Assembler Relationship Specialty Start Date End Date Yi Thompson MD [address] [place] [address] [place] [address] PCP - General Internal Medicine 08/20/23 documented as of this encounter
--- OUTSIDE RECORDS SUMMARY | 2025-02-07 11:59 | XMS_ITS | Encounter Summary ---
Author Organization [employer] Address [address] [place] [address] Care Team Providers Care Regulatory Analyst Name Role Phone Yi Thompson MD Primary Care Pro vider Reason for Visit * Reason Comments Med Change Request Encounter Details Date Type Department Care Team ([facility] st Contact Info) Description 03/15/2024 Refill [facility] [address] [place] [address] Leticia Plunkett, ANP [address] [place] [address] Sinus pressure Social History Tobacco Use Types [...] Management [facility] [address] [place] [address] 04/06/2025 11:15 AM EDT Office Visit [facility] [address] [place] [address] Yi Thompson MD [address] [place] [address] documented as of this encounter Goals Goal [...] documented as of this encounter Care Teams Regulatory Analyst Relationship Specialty Start Date End Date Yi Thompson MD [address] [place] [phone] PCP - General Internal Medicine 08/20/23 documented as of this encounter
--- OUTSIDE RECORDS SUMMARY | 2025-02-07 11:59 | XMS_ITS | Encounter Summary ---
Author Organization [employer] Address [address] [place] [address] Care Team Providers Care Sanitary Chemist Name Role Phone Yi Thompson MD Primary Care Pro vider Reason for Visit * Reason Comments Med Change Request Encounter Details Date Type Department Care Team ([facility] st Contact Info) Description 11/08/2023 Refill [facility] [address] [place] [address] [facility] [address] [place] [address] Viral upper respiratory illness Social History Tobacco Use Types Packs/Day Years Used Date Smoking Tobacco: Never Smokeless Tobacco: Never Alcohol Use Standard Drinks/Week Comments Never 0 (1 standard drink = 0.6 oz pur e alcohol) Housing Stability Answer Date Recorded What is your housing situation today? I have rahda alvarado 08/31/[address] you [...] 9:30 AM EDT Medication Management [facility] [address] [place] [address] 04/06/2025 11:15 AM EDT Office Visit [facility] [address] [place] [phone] Yi Thompson MD [address] [place] [phone] documented as of this encounter Visit Diagnoses Diagnosis Viral upper respiratory illness documented in this encounter Care Teams Sanitary Chemist Relationship Specialty Start Date End Date Yi Thompson MD [address] [place] [phone] PCP - General Internal Medicine 08/20/23 documented as of this encounter
--- OUTSIDE RECORDS SUMMARY | 2025-02-07 11:59 | XMS_ITS | Data Portability ---
Author Organization [place] [facility], Allergy Address [address] [address] Assessment No assessment recorded. Plan of Treatment [...] contr ast No observ ation record ed. [facility] ([facility]) [address] [address], [place], [address], 07/12/2024 17:28:21 07/12/20 24 03/07/2024 CT, neck, soft tissu e, w/ contr ast No observ ation record ed. [email or web address] Not Available 06/17 14:31:41 Result Notes None [...] Available [employer] 4 03:27:19 Oropharyn geal dysphagia 84209419 Active 2023 CHANTEL MEYER MD [address] [facility],[place] [address], [place], [address] , [facility] - [facility] 4 14:16:46 Acquired vocal cord palsy [id number] Active 2023 CHANTEL MEYER MD 100 [facility],[place] [address], [place], [address] , [facility] - [facility] 4 14:27:26 Problem Notes None recorded. Procedures Surgical History Date Name Laterality Status Provider Name and Address Organization Details Recorded Time 07/12/2024 FFL_RE completed CHANTEL MEYER MD [address] [facility],[place] [address], [place], [address], [facility] 07/12/2024 14:20:56 Imaging Results Imaging Date Name Status LastModified by Organiz ation Details LastModified Time 03/07/2024 CT, neck, soft tissue, w/ contrast completed [facility] ([facility]) [address], [place], [address], 07/12/2024 17:28:21 03/07/2024 CT, neck, soft tissue, w/ contrast completed [email or web address] Information not available 07/12/2024 14:31:41 Procedure Notes None recorded. Medical Equipment None Reported. Allergies Allergen ID Allergen Name Allergen Category Reaction Reaction Severity Criticality Documentation Date Start Date Code Code System Note Provider Name and Address Organization Details Recorded Time 12550 Product containin g penicilli n (product) medicatio n other Not available Not available 03/29/2024 37845 8001 SNOMED React ion: unkno wn, unspe cifie d;; Not Available [employer] 01:03:20 Medications Name Sig Start Date Stop Date Status Note LastModified by Organization Details LastModified Time medbox status USE DIRECTED active Not Available Not Available No t Available freestyle lite test strips strp active Not Available Not Available Not Available losartan 50 mg tablet active Medicati on ID: 21601 Br and Name: losartan Send Method: E-Prescr [...] 40 mg tablet active Medicati on ID: 10983 Br and Name: lovastat in Send Method: E-Prescr ibed Sub s Allowed: subs OK Medic ationGen ericName : lovastat in Not Available Not Available Not Available amlodipin e 5 mg tablet active Medicati on ID: 85422 Br and Name: amlodipi ne Send Method: [...] Not Available Not Available No t Available [place] Thyroid 15 mg tablet active Medicati on ID: 68054 Br and Name: [place] Thyroid Send Method: E-Prescr ibed Sub s Allowed: subs OK Medic ationGen ericName : [place] Thyroid Not Available Not Available Not Available amitripty line 25 mg tablet [place] Medicati on ID: 06179 Br and Name: amitript yline Se nd Method: E-Prescr ibed Sub s Allowed: subs OK Medic ationGen ericName : amitript yline Not Available Not Available Not Available Protonix 40 mg intraveno us solution active Medicati on ID: 32465 Br and Name: Protonix Send Method: E-Prescr [...] 150 mg capsule [place] Medicati on ID: 03563 Br and Name: ranitidi ne HCl Send Method: E-Prescr ibed Sub s Allowed: subs OK Medic ationGen ericName : ranitidi ne HCl Not Available Not Available Not Available hydrochlo rothiazid e 25 mg tablet [place] Medicati on ID: 34650 Br and Name: hydrochl orothiaz ro Send [...] 17 gram/dose oral powder USE DIRECTED BY [facility] active Not Available Not Available No t [...] release 24hr (osmotic) active Medicati on ID: 57068 Br and Name: meturbano forrest Send Method: [...] tablet,de layed release [place] Medicati on ID: 99913 Du ration Value: 30 Brand Name: omeprazo le Send Method: E-Prescr ibed Sub s Allowed: subs OK Speci al Instruct ion: Take 1 tablet by mouth every day before a meal [facility] me: omeprazo le Not Available Not [...] Updated DateTime 07/12/2024 165.1 cm 27.3 kg/m2 35352.15 g [place] [facility] 07/12/2024 14:07:22 Social History None recorded. Functional Status None recorded. Mental Status None recorded. Family History Nothing Reported. Medical History No medical history recorded. Gynecological HistoryNo gynecological history recorded. Obstetrics History GPAL:G 0 P 0 0 0 0 Past Encounters Encounter ID Performer Location Encounter Start Date Encounter Closed Date Diagnosis/Indication Diagnosis SNOMED-CT Code Diagnosis ICD10 Code Diagnosis Note [id number] CHANTEL MEYER MD [facility] [address] [address] 07/12/2024 13:49:31 07/12/2024 16:53:30 Oropharyngeal dysphagia 88893048 R13.12 Likely due to esophageal dysmotilit y. VC paralysis is a factor but doesn't explain her dysphagia to solids. I recommend she discuss GI referral with her PCP. I would be glad to see her as needed. I personally reviewed her imaging reports. Acquired v ocal cord palsy [id number] J38.00 Likely from initial surgery 14 years [...] Name 07/12/2024 1 [employer] [place] [employer] ([place] [id number] Giuseppe Rodriguez [id number] Sapna Garcia Notes Date Note Type Note Provider Name and Address Organization Details Recorded Time 07/12/2024 text/html She has a histor y of thyroid cancer. She had thyroidectomy in [place] 14 years ago. She had repeat surgery here 5-6 years ago. She reports her swallowing has been a problem since her first surgery. She had a swallow study at [facility]. She feels like food gets stuck. Has occasional choking with liquids. She has never smoked. She denies throat pain and SOB. I reviewed an Upper GI series which showed esophageal dysmotility. I also reviewed her CT neck with 02/2024 which showed possible right vocal cord paralysis. contrast CHANTEL MEYER MD [address] [place] [address], [place], [address], [facility] - [facility] 07/12/2024 14:28:36 OBGyn Episode No OBEpisode recorded.
--- OUTSIDE RECORDS SUMMARY | 2025-02-07 11:59 | XMS_ITS | Encounter Summary ---
Author Organization [employer] Address [address] [place] [address] Care Team Providers Care Hand Etcher Name Role Phone Juliet Bird Primary Care Provider +1- [phone] Yi Thompson MD Primary Care Pro vider Reason for Visit * Reason Onset Date Comments triage 02/27/2023 Encounter Details Date Type Department Care Team (Late st Contact Info) Description 02/27/2023 Telephone [facility] [address] [place] [address] Juliet Bird FNP [address] [place] [address] [place] [address] triage Social History Tobacco Use Types Packs/Day [...] 02/27/2023 4:58 PM EDT Triage call with [employer]er ID [id number] Pt reports a couple of days of [...] now The caller accepted this outcome speaks surinamese documented in this encounter Plan of Treatment Upcoming Encounters Date Type Department Care Team (Late st Contact Info) Description 03/31/2025 9:30 AM EDT Medication Management [facility] [address] [place] [address] 04/06/2025 11:15 AM EDT Office Visit [facility] [address] [place] [address] Yi Thompson MD [address] [place] [address] documented as of this encounter Visit Diagnoses Not on filedocumented in this encounter Care Teams Hand Etcher Relationship Specialty Start Date End Date Juliet Bird FNP PCP - General Family Medicine 01/22/23 08/19/23 Yi Thompson MD [address] [place] [address] PCP - General Internal Medicine 08/20/23 documented as of this encounter
--- OUTSIDE RECORDS SUMMARY | 2025-02-07 11:59 | XMS_ITS | Encounter Summary ---
Author Organization [employer] Address [address] [place] [address] Care Team Providers Care Buyer Broker Name Role Phone Yi Thompson MD Primary Care Pro vider Reason for Visit * Reason Comments Med Refill Encounter Details Date Type Department Care Team ([facility] st Contact Info) Description 09/15/[address] [facility] [address] [place] [address] Juliet Bird FNP [address] [place] [address] Dept [place] [address] Primary hypertension; Type 2 diabetes mellitus without complication, without long-term current use of insulin ([facility]) Social History Tobacco [...] Description 03/31/2025 9:30 AM EDT Medication Management [facility] [address] [place] [address] 04/06/2025 11:15 AM EDT Office Visit [address] [address] Yi Thompson MD [address] [place] [address] documented as of this encounter Visit Diagnoses Diagnosis Primary hypertension Unspecified essential hypertension Type 2 diabetes mellitus without complication, without long-term current use of insulin ([facility]) documented in this encounter Care Teams Buyer Broker Relationship Specialty Start Date End Date Yi Thompson MD [address] [place] [address] PCP - General Internal Medicine 08/20/23 documented as of this encounter
--- OUTSIDE RECORDS SUMMARY | 2025-02-07 11:59 | XMS_ITS | Encounter Summary ---
Author Organization [employer] Address [address] [place] [address] Care Team Providers Care Juke Box Servicer Name Role Phone Juliet Bird Sandra [facility] Primary Care Provider +1- [phone] Yi Thompson MD Primary Care Pro vider Reason for Visit * Reason Comments Med Refill Encounter Details Date Type Department Care Team (Late Contact Info) Description 01/28/2023 Refill [facility] MED[facility]INE [address] [place] [address] [facility] [address] [place], [place] [phone] Primary hypertension Social History Tobacco Use Types [...] 03/31/2025 9:30 AM EDT Medication Management [facility] MED[facility]INE [address] [place] [phone] 04/06/2025 11:15 AM EDT Office Visit [facility] [address] [place] [address] [phone] Yi Thompson MD [address] [place], [place] [phone] documented as of this encounter Visit Diagnoses Diagnosis Primary hypertension Unspecified essential hypertension documented in this encounter Care Teams Juke Box Servicer Relationship Specialty Start Date End Date Juliet Bird FNP PCP - General Family Medicine 01/22/23 08/19/23 Yi Thompson MD [address] [place] [address] PCP - General Internal Medicine 08/20/23 documented as of this encounter
--- OUTSIDE RECORDS SUMMARY | 2025-02-07 11:59 | XMS_ITS | Encounter Summary ---
Author Organization [employer] Address [address] [place] [address] Care Team Providers Care Wood Finisher Name Role Phone Yi Thompson MD Primary Care Pro vider Reason for Visit * Reason Comments Med Change Request Encounter Details Date Type Department Care Team ([facility] st Contact Info) Description 11/11/2023 Refill [facility] [address] [place] [address] [facility] 230 [place] [address] Viral upper respiratory illness Social History Tobacco [...] 9:30 AM EDT Medication Management [facility] [address] [place] [address] 04/06/2025 11:15 AM EDT Office Visit [facility] [address] [place] [address] Yi Thompson MD [address] [place] [address] documented as of this encounter Visit Diagnoses Diagnosis Viral upper respiratory illness documented in this encounter Care Teams Wood Finisher Relationship Specialty Start Date End Date Yi Thompson MD [address] [place] [address] PCP - General Internal Medicine 08/20/23 documented as of this encounter
--- OUTSIDE RECORDS SUMMARY | 2025-02-07 11:59 | XMS_ITS | Encounter Summary ---
Author Organization [employer] Address [address] [place] [address] Care Team Providers Care Crm Manager Name Role Phone Yi Thompson MD Primary Care Pro vider Reason for Visit * Reason Comments Med Refill Encounter Details Date Type Department Care Team (Late st Contact Info) Description 06/02/2024 Refill [facility] 230 [place] [address] Yi Thompson MD 230 [place] [address] Social History Tobacco Use Types Packs/Day Years [...] 9:30 AM EDT Medication Management [facility] [address] [place] [address] 04/06/2025 11:15 AM EDT Office Visit [facility] [address] [place] [address] Yi Thompson MD [address] [place] [address] documented as of this encounter Goals Goal [...] documented as of this encounter Care Teams Crm Manager Relationship Specialty Start Date End Date Yi Thompson MD [address] [place] [address] [place] [address] PCP - General Internal Medicine 08/20/23 documented as of this encounter
--- OUTSIDE RECORDS SUMMARY | 2025-02-07 11:59 | XMS_ITS | Encounter Summary ---
Author Organization [email or web address] Address [address] [place] [address] Care Team Providers Care Paper Twister Tender Name Role Phone Juliet Bird Primary Care Provider +1- [phone] Yi Thompson MD Primary Care Pro vider Reason for Visit * Reason Comments Med Refill Encounter Details Date Type Department Care Team (Late Contact Info) Description 06/28/[address] [facility] [address] [place] [address] Juliet Bird FNP [address] [place] [address] Dept [place] [address] Social History Tobacco Use Types Packs/Day Years [...] [facility] [address] [place] [address] [phone] 04/06/2025 11:15 AM EDT Office Visit [facility] [address] [place] [address] [phone] Yi Thompson MD [address] [place] [address] documented as of this encounter Visit Diagnoses Not on filedocumented in this encounter Care Teams Paper Twister Tender Relationship Specialty Start Date End Date Juliet Bird FNP PCP - General Family Medicine 01/22/23 08/19/23 Yi Thompson MD [address] [place] [address] PCP - General Internal Medicine 08/20/23 documented as of this encounter
== END 2025-02-07 10:08 | disposition home or self-care (01) ==
LOC: HO.MAMMO 10:07
PROVIDERS: PCP Student in an Organized Health Care Education/Training Program; Visit Provider Advanced Practice Midwife
DX: N64.4 Mastodynia (principal)
CPT/HCPCS: 76642; 77062; 77066

== ENCOUNTER → 2025-02-07 10:30 | Outpatient (BNV) | payer OTHER, SELFPAY | PROVIDERS: PCP Student in an Organized Health Care Education/Training Program; Visit Provider Internal Medicine | DX: N64.4 Mastodynia (principal) | CPT/HCPCS: 76642; 77062; 77066 ==

== ENCOUNTER 2025-02-10 13:48 | Outpatient (REF) | payer OTHER, SELFPAY ==
--- NOTE | ~2025-02-10 | US_ITS ---
EXAMINATION: US TRIPLEX UPPER EXTREMITY, LEFT CLINICAL INFORMATION: Left arm pain. COMPARISON: None available. TECHNIQUE: Color-flow triplex imaging with spectral analysis and compression Doppler was performed on the left upper extremity. FINDINGS: The left internal jugular, subclavian, and axillary veins are patent and free of thrombus. The imaged segment of the left brachiocephalic vein is patent. Spectral doppler waveforms are normal. The brachial, cephalic, radial, and ulnar veins are patent and compressible. The basilic vein is thrombosed. No extension into the brachial vein. US/US venous duplex UE LT IMPRESSION: Thrombosis of the basilic vein. No extension into the brachial vein. No evidence of deep venous thrombosis. Electronically signed by: Guanakito Melchor MD 02/10/2025 03:05 PM EDT
--- NOTE | ~2025-02-10 | XR_ITS ---
EXAMINATION: XR HUMERUS LEFT HISTORY: atraumatic left humerus x-ray COMPARISON: There are no prior studies available for comparison. FINDINGS: AP and lateral views of the left humerus are submitted. Osseous mineralization is normal. There is no fracture or dislocation. The visualized shoulder and elbow joint spaces are preserved. The soft tissues are unremarkable. XR/XR humerus LT IMPRESSION: Unremarkable examination of the left humerus. Electronically signed by: Milton Duckworth MD 02/10/2025 03:41 PM EDT
== END 2025-02-10 13:49 | disposition home or self-care (01) ==
LOC: HO.US 13:48
PROVIDERS: PCP Student in an Organized Health Care Education/Training Program; Visit Provider Emergency Medicine
DX: M79.602 Pain in left arm (principal)
CPT/HCPCS: 73060; 93971

== ENCOUNTER → 2025-02-10 13:54 | Outpatient (BNV) | payer OTHER, SELFPAY | PROVIDERS: PCP Student in an Organized Health Care Education/Training Program; Visit Provider Radiology Diagnostic Radiology | DX: I82.612 Acute embolism and thrombosis of superficial veins of left upper extremity (principal); M79.602 Pain in left arm | CPT/HCPCS: 73060; 93971 ==

== ENCOUNTER 2025-02-10 15:33 | Emergency (ER) | payer OTHER, SELFPAY ==
[2025-02-10 15:45] VITALS: BP 147/75; PULSE 95; RESP 18; TEMP 36.7; O2SAT 98; BMI 25.3
--- NOTE | 2025-02-10 16:09 | ED.GENADULT ---
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 Patient reports she developed pain to her left upper arm last night. She denies any specific injury. She went to urgent care today and was found to have thrombosis of the left basilic vein She was referred to the ER for further evaluation and management. She denies any chest pain, cough, shortness of breath She is not on anticoagulation Related Data Home Medications ?Medication ?Instructions ?Recorded ?Confirmed albuterol sulfate 90 mcg/actuation 2 puff inhalation Q4-6H PRN 09/05/22 01/30/25 aerosol inhaler (ProAir HFA) Wheezing metformin 500 mg tablet,extended 500 mg PO BID 11/19/23 01/30/25 release 24 hr fluticasone propionate 50 spray intranasal 03/01/24 01/30/25 mcg/actuation nasal spray,suspension montelukast 10 mg tablet 10 mg PO DAILY 03/01/24 01/30/25 sitagliptin phosphate 100 mg 100 mg PO DAILY 10/19/24 01/30/25 tablet (Januvia) fqfrxrok-dmdcfwkka-vyappiyaf 3.5 drp otic (ears) 11/03/24 01/30/25 mg-10,000 unit/mL-1 % ear drops,susp losartan 100 tab PO DAILY 12/15/24 01/30/25 mg-hydrochlorothiazide 12.5 mg tablet Previous Rx's ?Medication ?Instructions ?Recorded blood sugar diagnostic (FreeStyle #100 ea 07/09/21 Lite Strips) blood-glucose meter (FreeStyle #1 ea 03/12/22 Lite Meter kit) flash glucose scanning reader #1 ea 04/11/22 (FreeStyle Emile 2 [place]) pantoprazole 40 mg tablet,delayed 40 mg PO DAILY #90 tabs 01/13/23 release hydrocortisone 2.5 % topical cream 1 appl OK BID-QID PRN hemorrhoids 03/13/23 with perineal applicator #30 grams (Proctosol HC) acetaminophen 325 mg tablet 650 mg (2 x 325 mg) PO Q6H PRN 05/06/23 (Tylenol) pain #14 tabs ibuprofen 600 mg tablet 600 mg PO Q8H PRN pain #14 tabs 05/06/23 gabapentin 300 mg capsule 300 mg PO BEDTIME 30 days #30 caps 10/26/24 levothyroxine 112 mcg tablet 112 mcg PO DAILY #30 tabs 11/04/24 amitriptyline 10 mg tablet 10 mg PO BEDTIME #30 tabs 11/28/24 naproxen 500 mg tablet 500 mg PO BID 30 days #60 tabs 11/28/24 cholecalciferol (vitamin D3) 62.5 62.5 mcg PO QAM #90 caps 12/06/24 mcg (2,500 unit) capsule fluticasone furoate 200 1 inh inhalation DAILY 30 days #60 12/16/24 mcg-vilanterol 25 mcg/dose ea inhalation powder (Breo Ellipta) sennosides 8.6 mg tablet (senna) 17.2 mg (2 x 8.6 mg) PO BEDTIME 01/26/25 #60 tabs hydroxyzine HCl 10 mg tablet 10 mg PO BEDTIME #30 tabs 01/30/25 Allergies Allergy/AdvReac Type Severity Reaction Status Date / Time Penicillins [PENICILLINS] Allergy Intermediate HIVES Verified 02/10/25 15:47 Review of Systems Constitutional: Constitutional: Denies body ache(s), Denies chills, Denies fever(s) and Denies headache(s) Eyes: Eyes: Denies blurry vision ENT: Denies vertigo, Denies dizziness and Denies headache(s) Cardiovascular: Cardiovascular: Denies chest pain and Denies dyspnea Respiratory: Respiratory: Denies cough and Denies dyspnea Gastrointestinal: Gastrointestinal: Denies abdominal pain, Denies nausea and Denies vomiting Musculoskeletal: Musculoskeletal: Reports radiating pain into limb Neurologic: Denies vertigo, Denies dizziness and Denies headache(s) PMFSH Past Medical History Medical History Headache Cognitive disorder Cervical dystonia Palpitations Non-cardiac chest pain Pelvic pain Leg pain Bladder pain Lower abdominal pain Gross hematuria Toe pain Right knee pain Effusion, right knee Dysuria Pelvic pain in female Hematuria Mass of spine Hematuria Type 2 diabetes mellitus with polyneuropathy DM2 (diabetes mellitus, type 2) Nail deformity Paronychia Failure of spinal cord stimulator Thymoma Pulmonary nodules Thyroid cancer Blood in urine Constipation by delayed colonic transit Tubular adenoma of colon Gastritis Hypertension Dyslipidemia Post-surgical hypothyroidism Primary thyroid cancer Vitamin D deficiency Surgical History History of thymectomy History of back surgery Hx of colonoscopy Hx of thyroidectomy Hx of hernia repair Hx of section Hx of hysterectomy History of esophagogastroduodenoscopy (EGD) Family History Family History Father Stroke Heart attack Mother Diabetes mellitus Family/Other Family history of cancer Sister Stomach cancer Family/Other Thyroid cancer Social History Social History Household Members: Spouse, Children and Other Are you a primary spiritual care coordinator to a significant other at home: No Do you presently have visiting nurse or other home services: No Alcohol intake: unknown Patient Tobacco Use Status: Former Tobacco user Tobacco use type: Cigarette Second Hand Smoke Exposure: No Advance Directives: No Advance Directives Information Provided: No Sexual orientation: Straight/Heterosexual Gender identity: Female Physical Exam ED Vital Signs: Vital Signs - 24 hr 02/10/25 15:45 Temperature 98.0 F Pulse Rate 95 Respiratory Rate 18 Blood Pressure 147/75 H Pulse Oximetry 98 Oxygen Delivery Method Room Air BMI result Body Mass Index 25.3 Const General: healthy appearing, comfortable, no acute distress, alert and awake Nutritional Appearance: well nourished Orientation/consciousness: patient oriented x3 HENMT Head: Yes normocephalic and Yes atraumatic Eyes Eyelids: Yes eyelids normal Conjunctivae: conjunctivae normal Sclerae: sclerae normal Corneas: corneas normal Pupils: Equal, round and reactive pupils present EOM: EOMs intact bilaterally Neck Neck: Yes full ROM Resp Effort & Inspection: normal respiratory effort, able to speak in complete sentences, no audible wheezes and not labored Auscultation: clear to auscultation bilaterally Cardio Rate: regular rate Rhythm: regular rhythm Skin General skin exam: elasticity normal Neuro General: patient oriented x3 Cranial nerves: Yes Equal, round and reactive pupils present and Yes Bilaterally intact EOM present Cognition (Neuro): normal cognition Extrem Other: Moving all extremities well without any obvious deformities. Mild tenderness to the left bicep region and medial left upper arm. No overlying erythema, edema Medical Decision Making Medical Decision Making MDM Narrative: 64-year-old female presents for evaluation of the abnormal ultrasound and an outpatient. Her ultrasound was performed here and shows thrombosis of the left basilic skin but no extension into the brachial vein, reports specifically reports no evidence of deep vein thrombosis. The patient has superficial thrombosis and can treat with aspirin and hot compresses. Is no chest pain, shortness of breath, cough, she is not tachycardic, tachypneic or hypoxic. No further workup indicated at this time Differential Diagnosis Differential Diagnoses: The differential diagnosis associated with the presentation includes Superficial thrombophlebitis Muscle strain DVT Contusion Radiology Impression Discussion of test interpretation with radiology: I have reviewed the radiologist's reading. 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 Chart Viewer Orders Diagnostics Subcategory All Activity ??:?? All Time ??:?? All Subcategories Filter Laboratory Imaging Microbiology Pathology Blood Bank Tests Cardiovascular Other Specialty DATE TYPE STATUS REF RANGE/AUTHOR Hx Today 14:58 Humerus X-Ray Signed Milton Duckworth Today 14:12 Venous Duplex Signed Guanakito Melchor 02/07/25 10:44 Breast Ultrasound Signed Maria Bunch 02/07/25 10:10 Mammogram Diagnostic Signed Maria Bunch 12/09/24 08:24 Guidance Fluoroscopy Signed Milton Duckworth 11/28/24 15:39 Cervical Spine X-Ray Signed Milton Duckworth 11/20/24 14:07 Chest X-Ray Signed Cindy Austin 10/20/24 12:34 General Surgery Image ? 10/11/24 08:[address] Signed Guanakito Melchor 10/11/24 07:45 Myelogram,Lumbar Spine Signed Aaron Florian 10/07/24 12:45 Head/Neck Ultrasound Signed Andres Salcido 09/27/24 07:34 Guidance Fluoroscopy Signed Aaron Florian 07/29/24 13:30 Chest X-Ray Signed Thanh Lora Jr 07/29/24 13:[address] Signed Jameson Ambrocio 07/28/24 13:[address] Signed Nicholas Seymour 05/04/24 11:55 Lumbar Spine X-Ray Signed Angela Nichole 05/04/24 11:55 Hip X-Ray Signed Angela Nichole 05/04/24 10:30 Cardiolite Stress Test Signed Mono Smith 03/09/24 12:30 Abdomen/Pelvis CT Signed Jameson Ambrocio 03/07/24 14:[address] Signed Angelia Hopson 03/01/24 08:27 Barium Swallow X-Ray Signed Emile Grover?(+) 02/23/24 14:20 Chest X-Ray Signed Yevgeniy Milian 01/13/24 14:57 Hand X-Ray Signed Agustina Turcios 01/13/24 14:35 Breast Ultrasound Signed Guanakito Melchor 01/13/24 13:55 Mammogram Diagnostic Signed Guanakito Melchor 01/11/24 11:15 Mammogram Screening Cancelled 01/11/24 11:15 Mammogram Diagnostic Cancelled 12/03/23 10:45 Bone Densitometry Signed Kraig Terrazas 11/18/23 08:34 Abdomen Ultrasound Signed Salazar Crooks 11/15/23 11:49 Abdomen/Pelvis CT Signed BrandonSamepreston 09/21/23 10:57 Tibia/Fibula X-Ray Signed Laura Whatley 09/16/23 12:19 Head/Neck Ultrasound Signed BrandonSamer 09/14/23 09:[address] Signed BrandonSamer 09/03/23 10:25 Temporomandibular Joint X-Ray Signed Anthony Kiran 08/27/23 13:12 Extremity Ultrasound Signed Angela Nichole 02/28/23 08:30 Abdomen/Pelvis CT Signed Damien Sanches 02/23/23 13:30 Knee X-Ray Signed Aaron Florian 02/23/23 13:30 Knee X-Ray Signed Aaron Florian 01/28/23 10:56 Venous Duplex Signed Emile Jung 01/11/23 11:14 Abdomen/Pelvis CT Signed Davie Brunner 01/11/23 10:10 Chest X-Ray Signed Davie Brunner 01/07/23 09:50 Mammogram Screening Signed Aaron Zuñiga 10/24/22 17:49 Guidance Fluoroscopy Signed Aaron Zuñiga 09/25/22 16:[address] Signed Munira Florence 09/11/22 14:40 Guidance Fluoroscopy Signed Aaron Zuñiga 08/29/22 12:02 Shoulder X-Ray Signed Kraig Terrazas 08/29/22 12:02 Cervical Spine X-Ray Signed Kraig Terrazas 08/13/22 09:45 Abdomen/Pelvis CT Signed Sae Cardenas 06/10/22 14:45 Guidance Fluoroscopy Signed Ross Samuel 05/07/22 11:10 Hepatobiliary Scan Nuclear Medicine Signed Alissa Shah 05/01/22 18:05 Lumbar Spine MRI Signed VERITO GUERRERO 04/17/22 15:53 Renal Ultrasound Signed Alissa Shah 04/09/22 09:30 Needle Aspiration US Signed Sae Cardenas 04/09/22 08:30 Lymph Node Biopsy Ultrasound Cancelled 04/07/22 16:[address] Signed Balta Hicsk 02/02/22 09:47 Abdomen/Pelvis CT Signed Kraig Terrazas 01/28/22 12:46 Diagnostic Report, External Endocrinology PET-CT Skull Base to Mid Thigh 01/20/22 15:37 Head/Neck Ultrasound Signed Joel Kaba 01/01/22 11:10 Mammogram Screening Signed Aaron Zuñiga Blanca C ED 64, F?1960 MRN#? [id number] REG ER,?Waiting Room??? 5ft 5in 69.1kg BMI: 25.4kg/m? General Medical Acc#? [id number] Resus Status Not Ordered No Hx Avail Historical Visits Triage Note left arm pain started last night told to come in because she has a clot in her left arm from MD Thrombosis of the basilic vein. per us today Allergies Penicillins (PENICILLINS) HIVES Problems ? ONSET Superficial thrombophlebitis Headache Cognitive disorder Cervical dystonia Spondylosis of lumbar region without myelopathy or radiculopathy Chronic right SI joint pain Sacroiliitis Disc degeneration, lumbar Vaginitis Lumbar radiculopathy Back pain Fall Abnormal stress ECG Chest discomfort Duplex kidney Acute UTI Thumb locking Palpitations Non-cardiac chest pain Failure of spinal cord stimulator Chronic cystitis Varicose veins of right lower extremity with inflammation History of thymectomy Pulmonary nodules Controlled diabetes mellitus with diabetic polyneuropathy De Quervain's tenosynovitis, left Patellofemoral arthritis of left knee Patellofemoral arthritis of right knee Chronic pelvic pain in female Dyspareunia in female Myofascial pain Atrophic vaginitis Osteoarthritis of right knee CRPS (complex regional pain syndrome type I) History of thyroid cancer Constipation by delayed colonic transit Gastritis Hypertension Dyslipidemia Post-surgical hypothyroidism Primary thyroid cancer Vitamin D deficiency Home Meds Not Confirmed Prescription Monitoring Program MEDICATIONS (INSTRUCTIONS) LAST TAKEN Active ??acetaminophen [Tylenol] ??650 mg(2 x 325 mg)[id number]#14 tabs ??albuterol sulfate [ProAir HFA] ??2 puffinhalationQ4-6HPRNWheezing *Product no longer available ??amitriptyline 10 mg tablet ??10 mgPOBEDTIME#30 tabs ??cholecalciferol (vitamin D3) 62.5 mcg (2,500 unit) capsule ??62.5 mcgPOQAM#90 caps ??fluticasone furoate 200 mcg-vilanterol 25 mcg/dose inhalation powder ??1 iabflldcmhqxmTCKYM37 days#60 ea ??fluticasone propionate 50 mcg/actuation nasal spray,suspension ??sprayintranasal ??gabapentin 300 mg capsule ??300 kvVDBOWCFAK85 days#30 caps ??hydrocortisone 2.5 % topical cream with perineal applicator ??1 applPRBID-QIDPRNhemorrhoids#30 grams ??hydroxyzine HCl 10 mg tablet ??10 mgPOBEDTIME#30 tabs ??ibuprofen ??600 jqENH2WGCVqvgv#14 tabs ??levothyroxine 112 mcg tablet ??112 mcgPODAILY#30 tabs ??losartan 100 mg-hydrochlorothiazide 12.5 mg tablet ??tabPODAILY ??metformin 500 mg tablet,extended release 24 hr ??500 mgPOBID ??montelukast 10 mg tablet ??10 mgPODAILY ??naproxen 500 mg tablet ??500 ptJICXF37 days#60 tabs ??wafjvyza-fopmwthod-ersylvbgs 3.5 mg-10,000 unit/mL-1 % ear drops,susp ??drpotic (ears) ??pantoprazole 40 mg tablet,delayed release ??40 mgPODAILY#90 tabs ??sennosides 8.6 mg tablet ??17.2 mg(2 x 8.6 mg)POBEDTIME#60 tabs ??sitagliptin phosphate [Januvia] ??100 mgPODAILY DME/Medical Supplies ??blood sugar diagnostic ??blood-glucose meter ??flash glucose scanning reader ED EMS Hand-Off No Data to Display Orders Snapshot No Data to Display PFSH MEDICAL HISTORY ONSET Headache Cognitive disorder Cervical dystonia Palpitations Non-cardiac chest pain Pelvic pain Leg pain Bladder pain Lower abdominal pain Gross hematuria Toe pain Right knee pain Effusion, right knee Dysuria Pelvic pain in female Hematuria Mass of spine Hematuria Type 2 diabetes mellitus with polyneuropathy DM2 (diabetes mellitus, type 2) Nail deformity Paronychia Failure of spinal cord stimulator Thymoma Pulmonary nodules Thyroid cancer Blood in urine Constipation by delayed colonic transit Tubular adenoma of colon Gastritis Hypertension Dyslipidemia Post-surgical hypothyroidism Primary thyroid cancer Vitamin D deficiency SURGICAL HISTORY ONSET History of thymectomy History of back surgery Hx of colonoscopy Hx of thyroidectomy Hx of hernia repair Hx of section Hx of hysterectomy History of esophagogastroduodenoscopy (EGD) FAMILY HISTORY SOCIAL HISTORY My Widget No Data to Display Lab Results Last 24 Hrs Most Recent No Data to Display Diagnostic Imaging Reports No Data to Display Diagnostic Departmental Reports No Data to Display Vitals - Initial & Most Recent CURRENT Today 15:45 BP 147/75 H Pulse 95 Resp 18 Temp 98.0 F O2 Sat 98 O2 Delivery Room Air Diagnostics Reports Sapna Herzog??64??F??1960 ? Allergy/Adv: Penicillins Close Humerus X-Ray (Signed) Milton Duckworth - 02/10/25 Venous Duplex (Signed) Guanakito Melchor - 02/10/25 Breast Ultrasound (Signed) Maria Bunch - 02/07/25 Mammogram Diagnostic (Signed) Maria Bunch - 02/07/25 Guidance Fluoroscopy (Signed) Milton Duckworth - 12/09/24 Cervical Spine X-Ray (Signed) Milton Duckworth - 11/28/24 Chest X-Ray (Signed) Cindy Austin - 11/20/24 General Surgery Image 10/20/[address] (Signed) Guanakito Melchor - 10/11/24 Myelogram,Lumbar Spine (Signed) Aaron Florian - 10/11/24 Head/Neck Ultrasound (Signed) Andres Salcido - 10/07/24 Guidance Fluoroscopy (Signed) Aaron Florian - 09/27/24 Chest X-Ray (Signed) GuidoThanh - 07/29/[address] (Signed) Jameson Ambrocio - 07/29/[address] (Signed) Nicholas Seymour - 07/28/24 Lumbar Spine X-Ray (Signed) Angela Nichole - 05/04/24 Hip X-Ray (Signed) ManickAngela sanchez - 05/04/24 Cardiolite Stress Test (Signed) Mono Smith - 05/04/24 Abdomen/Pelvis CT (Signed) Jameson Ambrocio - 03/09/[address] (Signed) Angelia Hopson - 03/07/24 Barium Swallow X-Ray (Signed) Emile Grover (+) - 03/01/24 Chest X-Ray (Signed) Yevgeniy Milian - 02/23/24 Hand X-Ray (Signed) Agustina Turcios - 01/13/24 Breast Ultrasound (Signed) Guanakito Melchor - 01/13/24 Mammogram Diagnostic (Signed) Guanakito Melchor - 01/13/24 Mammogram Screening (Cancelled) 01/11/24 Mammogram Diagnostic (Cancelled) 01/11/24 Bone Densitometry (Signed) Kraig Terrazas - 12/03/23 Abdomen Ultrasound (Signed) Salazar Crooks - 11/18/23 Abdomen/Pelvis CT (Signed) Fadl,Samer - 11/15/23 Tibia/Fibula X-Ray (Signed) Laura Whatley - 09/21/23 Head/Neck Ultrasound (Signed) Fadl,Samer - 09/16/[address] (Signed) Fadl,Samer - 09/14/23 Temporomandibular Joint X-Ray (Signed) Anthony Kiran - 09/03/23 Extremity Ultrasound (Signed) Angela Nichole - 08/27/23 Abdomen/Pelvis CT (Signed) Damien Sanches - 02/28/23 Knee X-Ray (Signed) Aaron Florian - 02/23/23 Knee X-Ray (Signed) Aaron Florian - 02/23/23 Venous Duplex (Signed) Emile Jung - 01/28/23 Abdomen/Pelvis CT (Signed) Davie Brunner - 01/11/23 Chest X-Ray (Signed) MyeshaKathro - 01/11/23 Mammogram Screening (Signed) Aaron Zuñiga - 01/07/23 Guidance Fluoroscopy (Signed) Aaron Zuñiga - 10/24/[address] (Signed) Munira Florence - 09/25/22 Guidance Fluoroscopy (Signed) Aaron Zuñiga - 09/11/22 Shoulder X-Ray (Signed) Kraig Terrazas - 08/29/22 Cervical Spine X-Ray (Signed) Kraig Terrazas - 08/29/22 Abdomen/Pelvis CT (Signed) Federico Cardenasnal - 08/13/22 Guidance Fluoroscopy (Signed) Ross Samuel - 06/10/22 Hepatobiliary Scan Nuclear Medicine (Signed) Alissa Shah - 05/07/22 Lumbar Spine MRI (Signed) VERITO GUERRERO - 05/01/22 Renal Ultrasound (Signed) Alissa Shah - 04/17/22 Needle Aspiration Ultrasound (Signed) Sae Cardenas - 04/09/22 Lymph Node Biopsy Ultrasound (Cancelled) 04/09/[address] (Signed) Balta Hicks - 04/07/22 Abdomen/Pelvis CT (Signed) Kraig Terrazas - 02/02/22 Diagnostic Report, External Endocrinology 01/28/22 Head/Neck Ultrasound (Signed) Joel Kaba - 01/20/22 Mammogram Screening (Signed) Aaron Zuñiga - 01/01/22 Launch?Image [place] [id number] Ultrasound Report Signed Patient: Sapna Herzog MR#: [id number] : 1960 Acct:[id number] Age/Sex: 64 / F ADM Date: 02/10/25 Loc: HO.US Attending Dr: Maximino Rasmussen MD Ordering Physician: MAXIMINO RASMUSSEN MD Date of Service: 02/10/25 Procedure(s): US venous duplex UE LT Accession Number(s): [id number] cc: MAXIMINO RASMUSSEN MD; Yi Thompson MD~ EXAMINATION: US TRIPLEX UPPER EXTREMITY, LEFT CLINICAL INFORMATION: Left arm pain. COMPARISON: None available. TECHNIQUE: Color-flow triplex imaging with spectral analysis and compression Doppler was performed on the left upper extremity. FINDINGS: The left internal jugular, subclavian, and axillary veins are patent and free of thrombus. The imaged segment of the left brachiocephalic vein is patent. Spectral doppler waveforms are normal. The brachial, cephalic, radial, and ulnar veins are patent and compressible. The basilic vein is thrombosed. No extension into the brachial vein. US/US venous duplex UE LT IMPRESSION: Thrombosis of the basilic vein. No extension into the brachial vein. No evidence of deep venous thrombosis. Electronically signed by: Guanakito Melchor MD 02/10/2025 03:05 PM EDT RP Dictated By: Guanakito Melchor MD Signed By: <Electronically signed by Guanakito Melchor MD in OV> 02/10/25 1505 DD/ 1412 TD/TT: 02/10/25 1447 Rn Embedded: Discharge Plan Discharge Clinical Impression: Superficial thrombophlebitis Patient Disposition: Home, Self-Care Instructions: Superficial Thrombophlebitis (ED) Additional Instructions: You have a superficial clot in your left arm. This is not the same as a DVT or deep vein thrombosis. You do not need any anticoagulation I do recommend that you take aspirin 325 mg once daily It is also important that you use warm compresses 4 times per day for 10-15 minutes to the painful area Follow-up with your primary doctor, return for new or worsening symptoms Prescriptions: No Action (DME) FreeStyle Lite Strips Strip See Rx Instructions .ROUTE .MEDSUPPLY Qty: 100 10RF Rx Instructions: Test blood glucose twice per day (DME) FreeStyle Emile [facility] [place] [facility] See Rx Instructions .ROUTE .MEDSUPPLY Qty: 1 0RF Rx Instructions: As directed naproxen 500 mg tablet 500 mg PO BID 30 Days Qty: 60 1RF cholecalciferol (vitamin D3) 62.5 mcg (2,500 unit) capsule 62.5 mcg PO QAM Qty: 90 2RF sennosides [senna] 8.6 mg tablet 17.2 mg PO BEDTIME Qty: 60 3RF albuterol sulfate [ProAir HFA] 90 mcg/actuation HFA aerosol inhaler 2 puff INHALATION Q4-6H PRN (Reason: Wheezing) Januvia 100 mg tablet 100 mg PO DAILY ibuprofen 600 mg tablet 600 mg PO Q8H PRN (Reason: pain) Qty: 14 0RF acetaminophen [Tylenol] 325 mg tablet 650 mg PO Q6H PRN (Reason: pain) Qty: 14 0RF (DME) blood-glucose meter [FreeStyle Lite Meter] Kit See Rx Instructions .ROUTE .MEDSUPPLY Qty: 1 0RF Rx Instructions: As directed pantoprazole 40 mg tablet,delayed release (DR/EC) 40 mg PO DAILY Qty: 90 2RF Rx Instructions: take one tablet half an hour before breakfast hydrocortisone [Proctosol HC] 2.5 % cream with perineal applicator 1 appl OK BID-QID PRN (Reason: hemorrhoids) Qty: 30 2RF levothyroxine 112 mcg tablet 112 mcg PO DAILY Qty: 30 12RF gabapentin 300 mg capsule 300 mg PO BEDTIME 30 Days Qty: 30 8RF losartan-hydrochlorothiazide 100-12.5 mg tablet PO DAILY metformin 500 mg tablet extended release 24 hr 500 mg PO BID fluticasone propionate 50 mcg/actuation spray,suspension intranasal montelukast 10 mg tablet 10 mg PO DAILY hydroxyzine HCl 10 mg tablet 10 mg PO BEDTIME Qty: 30 4RF ktwcszuj-pxrzdweio-CX 3.5-10,000-1 mg/mL-unit/mL-% drops,suspension otic (ears) fluticasone furoate-vilanterol [Breo Ellipta] 200-25 mcg/dose blister with device 1 inh inhalation DAILY 30 Days Qty: 60 11RF amitriptyline 10 mg tablet 10 mg PO BEDTIME Qty: 30 6RF Print Language: Turkmen
[2025-02-10 16:25] VITALS: BP 147/75; PULSE 95; RESP 18; TEMP 36.7; O2SAT 98
== END 2025-02-10 16:25 | disposition home or self-care (01) ==
PROVIDERS: Emergency Provider Emergency Medicine; PCP Student in an Organized Health Care Education/Training Program
DX: I80.8 Phlebitis and thrombophlebitis of other sites (principal); M79.622 Pain in left upper arm; E11.9 Type 2 diabetes mellitus without complications; I10 Essential (primary) hypertension; E78.5 Hyperlipidemia, unspecified; Z87.891 Personal history of nicotine dependence; Z79.899 Other long term (current) drug therapy; Z79.84 Long term (current) use of oral hypoglycemic drugs
CPT/HCPCS: 99282

== ENCOUNTER 2025-02-16 09:22 | Outpatient (REF) | payer OTHER, SELFPAY ==
--- NOTE | ~2025-02-16 | CT_ITS ---
CLINICAL HISTORY: R91.8 - Other nonspecific abnormal finding of lung field CT chest without contrast Comparison: 09/14/2023 Findings: The heart size is normal. The visualized thyroid and mediastinum are unremarkable. 3 mm left lower lobe pulmonary lesion is unchanged, likely benign. The lungs are otherwise clear. The appearance of the liver suggests fatty infiltration without focal lesion. The upper abdomen is otherwise unremarkable. The bones are intact. IMPRESSION: 1. Stable, likely benign, left lower lobe pulmonary lesion. 2. Hepatic steatosis. This document has been electronically signed by: Everardo Padilla MD on 02/17/2025 08:24:32
--- NOTE | ~2025-02-16 | US_ITS ---
EXAMINATION: US TRIPLEX UPPER EXTREMITY, LEFT CLINICAL INFORMATION: Thrombophlebitis, left basilic vein COMPARISON: February 10, 2025. TECHNIQUE: Color-flow triplex imaging with spectral analysis and compression Doppler was performed on the left upper extremity. FINDINGS: The left internal jugular, subclavian, and axillary veins are patent with normal spectral Doppler waveforms. The imaged segment of the left brachiocephalic vein is patent. Spectral doppler waveforms are normal. The brachial, basilic, cephalic, radial, and ulnar veins are patent and compressible. US/US venous duplex UE LT IMPRESSION: No acute deep venous thrombosis involving the left upper extremity. Negative for DVT. Negative for thrombophlebitis in the basilic vein.. Electronically signed by: Andres Kendall MD 02/16/2025 03:46 PM EDT
--- OUTSIDE RECORDS SUMMARY | 2025-02-16 09:54 | XMS_ITS | Encounter Summary ---
Author Organization [email or web address] Address [address] [place] [address] Care Team Providers Care 911 Emergency Dispatcher Name Role Phone Yi Thompson MD Primary Care Pro vider Reason for Visit * Reason Comments Med Change Request Encounter Details Date Type Department Care Team ([facility] st Contact Info) Description 11/11/2023 Refill [facility] [address] [place] [address] [facility] [address] [place] [address] Viral upper respiratory illness Social History Tobacco [...] Care Team (Late st Contact Info) Description 02/21/2025 9:40 AM EDT Office Visit [facility] [address] [place] [address] 03/31/2025 9:30 AM EDT Medication Management [facility] [address] [place] [address] 04/06/2025 11:15 AM EDT Office Visit [address] [address] Yi Thompson MD [address] [place] [address] documented as of this encounter Visit Diagnoses Diagnosis Viral upper respiratory illness documented in this encounter Care Teams 911 Emergency Dispatcher Relationship Specialty Start Date End Date Yi Thompson MD [address] [place] [address] PCP - General Internal Medicine 08/20/23 documented as of this encounter
--- OUTSIDE RECORDS SUMMARY | 2025-02-16 09:54 | XMS_ITS | Encounter Summary ---
Author Organization [employer] Address [address] [place] [address] Care Team Providers Care General Manager Land Department Name Role Phone Yi Thompson MD Primary Care Pro vider Reason for Visit * Reason Onset Date Comments Plan of Care 02/13/2025 Encounter Details Date Type Department Care Team ([facility] st Contact Info) Description 02/13/[address] [facility] [address] [place] [address] Porsha Curtis RN Plan of Care Social History Tobacco Use Types Packs/Day Years [...] encounter Miscellaneous Notes * Telephone Encounter - Porsha Curtis RN - 02/13/2025 3:05 PM EDT TC received from Dr Rasmussen, requesting pt be contacted to update on plan of care. stated pt is to have a second U/S to reassess blood clot. Pt will then be scheduled for a follow up with Dr. Rasmussen oneither 02/20 or 02/21 around 10 am in [facility] to review results. TC placed to pt using [employer] ophthalmic technician apprentice ID# [id number]. VM left with [facility] contact info for a return call. Will re attempt. documented in this encounter Plan of Treatment Upcoming Encounters Date Type Department Care Team ([facility] st Contact Info) Description 02/21/2025 9:40 AM EDT Office [address] [facility] [address] [place] [address] 03/31/2025 9:30 AM EDT Medication Management [facility] [address] [place] [address] 04/06/2025 11:15 AM EDT Office [address] [facility] [address] [place] [address] Yi Thompson MD [address] [place] [address] documented as of this encounter Goals Goal Patient Goal Type Associated Problems Recent Progress Patient-Stated? Author Blood Pressure < 140/90 Blood Pressure 141/78(2024 11:59 AM EDT) No Jn Shah Hemoglobin A1c < 7 Result Component 6.8( 8:59 AM EST) No Jn Shah documented as of this encounter Visit Diagnoses Not on filedocumented in this encounter Additional Health Concerns Assessment Noted Time PHQ-9 Depression Total Score: 1 01/13/20 24 12:16 PM EST documented as of this encounter Care Teams General Manager Land Department Relationship Specialty Start Date End Date Yi Thompson MD [address] [place] [address] PCP - General Internal Medicine 08/20/23 documented as of this encounter
--- OUTSIDE RECORDS SUMMARY | 2025-02-16 09:54 | XMS_ITS | Encounter Summary ---
Author Organization [employer] Address [address] [place] [address] Care Team Providers Care Instructional Systems Designer Name Role Phone Yi Thompson MD Primary Care Pro vider Reason for Visit * Reason Comments Med Refill Encounter Details Date Type Department Care Team (Late st Contact Info) Description 05/03/2024 Refill [facility] [address] [place] [address] Yi Thompson MD 230 [place] [address] Social History Tobacco Use Types Packs/Day Years [...] Description 02/21/2025 9:40 AM EDT Office Visit [facility] [address] [place] [address] 03/31/2025 9:30 AM EDT Medication Management [facility] [address] [place] [address] 04/06/2025 11:15 AM EDT Office Visit [facility] [address] [place] [address] Yi Thompson MD [address] [place] [address] documented as of this encounter Goals Goal Patient Goal Type Associated Problems Recent Progress Patient-Stated? Author Blood Pressure < 140/90 Blood Pressure 141/78(2024 11:59 AM EDT) Jn Petit Hemoglobin A1c < 7 Result Component 6.8( 8:59 AM EST) No Jn Shah documented as of this encounter Visit Diagnoses Not on filedocumented in this encounter Additional Health Concerns Assessment Noted Time PHQ-9 Depression Total Score: 1 01/13/20 24 12:16 PM EST documented as of this encounter Care Teams Instructional Systems Designer Relationship Specialty Start Date End Date Yi Thompson MD [address] [place] [address] PCP - General Internal Medicine 08/20/23 documented as of this encounter
--- OUTSIDE RECORDS SUMMARY | 2025-02-16 09:54 | XMS_ITS | Encounter Summary ---
Author Organization [email or web address] Address [address] [place] [address] Care Team Providers Care Wardrobe Coordinator Name Role Phone Juliet Bird Primary Care Provider [phone] Yi Thompson MD Primary Care Pro vider Reason for Visit * Reason Comments Med Refill Encounter Details Date Type Department Care Team (Late Contact Info) Description 06/28/2023 Refill [facility] [address] [place] [address] Juliet Bird FNP [address] [place] [address] Dept [place] [address] Social History Tobacco Use Types Packs/Day Years [...] Department Care Team (Late Contact Info) Description 02/21/2025 9:40 AM EDT Office Visit [facility] [address] [place] [address] [phone] 03/31/2025 9:30 AM EDT Medication Management [facility] [address] [place] [address] 04/06/2025 11:15 AM EDT Office Visit [facility] 230 [place] [address] Yi Thompson MD [address] [place] [address] documented as of this encounter Visit Diagnoses Not on filedocumented in this encounter Care Teams Wardrobe Coordinator Relationship Specialty Start Date End Date Juliet Bird FNP PCP - General Family Medicine 01/22/23 08/19/23 Yi Thompson MD [address] [place] [address] PCP - General Internal Medicine 08/20/23 documented as of this encounter
--- OUTSIDE RECORDS SUMMARY | 2025-02-16 09:54 | XMS_ITS | Encounter Summary ---
Author Organization [employer] Address [address] [place] [address] Care Team Providers Care Business Analyst Consultant Name Role Phone Yi Thompson MD Primary Care Pro vider Reason for Visit * Reason Onset Date Comments Nurse Triage 02/15/2024 Encounter Details Date Type Department Care Team ([facility] st Contact Info) Description 02/15/2024 Telephone [facility] 230 [place] [address] Yi Thompson MD 230 [place] [address] Nurse Triage Social History Tobacco Use Types [...] 02/15/2024 12:44 PM EDT Triage call with [employer] Dist[employer] [place] [id number] Pt reports headache frontal and back of [...] 400pm. Pt is advised to come to [facility] which is open till 8pm this [...] Tingling sensation The caller accepted this outcome Welsh speaker documented in this encounter Plan of Treatment Upcoming Encounters Date Type Department Care Team (Late st Contact Info) Description 02/21/2025 9:40 AM EDT Office Visit [facility] [address] [place] [address] 03/31/2025 9:30 AM EDT Medication Management [facility] [address] [place] [address] 04/06/2025 11:15 AM EDT Office Visit [address] [address] Yi Thompson MD [address] [place] [address] documented as of this encounter Visit Diagnoses Not on filedocumented in this encounter Additional Health Concerns Assessment Noted Time PHQ-9 Depression Total Score: 1 01/13/20 24 12:16 PM EST documented as of this encounter Care Teams Business Analyst Consultant Relationship Specialty Start Date End Date Yi Thompson MD [address] [place] [address] PCP - General Internal Medicine 08/20/23 documented as of this encounter
--- OUTSIDE RECORDS SUMMARY | 2025-02-16 09:54 | XMS_ITS | Encounter Summary ---
Author Organization [employer] Address [address] [place] [address] Care Team Providers Care Content Publisher Name Role Phone Yi Thompson MD Primary Care Pro vider Encounter Details Date Type Department Care Team ([facility] st Contact Info) Description 11/06/2024 Orders Only [facility] [address] [place] [address] Provider, MD Lux Social History Tobacco Use [...] Description 02/21/2025 9:40 AM EDT Office Visit [facility] [address] [place] [address] 03/31/2025 9:30 AM EDT Medication Management [facility] [address] [place] [address] 04/06/2025 11:15 AM EDT Office Visit [facility] [address] [place] [address] Yi Thompson MD [address] [place] [address] documented as of this encounter Goals Goal [...] EST) Historical Provider HEALTH MAINTENANCE Final Result documented in this encounter Visit Diagnoses Not on filedocumented in this encounter Additional Health Concerns Assessment Noted Time PHQ-9 Depression Total Score: 1 01/13/20 24 12:16 PM EST documented as of this encounter Care Teams Content Publisher Relationship Specialty Start Date End Date Yi Thompson MD [address] [place] [address] PCP - General Internal Medicine 08/20/23 documented as of this encounter
--- OUTSIDE RECORDS SUMMARY | 2025-02-16 09:54 | XMS_ITS | Encounter Summary ---
Author Organization [employer] Address [address] [place] [address] Care Team Providers Care Shelver Name Role Phone Yi Thompson MD Primary Care Pro vider Reason for Referral * Imaging (STAT) - Authorized Specialty Diagnoses / Procedures Referred By Contac t Referred To Contact Cardiology Diagnoses Superficial thrombophlebitis of left upper extremity Procedures Vascular US upper extrermity venous duplex left Maximino Rasmussen MD [address] [place] [address] Phone: tel: fax: [address] Phone: tel: fax: Referral ID Status Reason Start Date Expiration Date Visits Requested Visits Authorized [id number] Authorized Perform Procedure 02/13/2025 02/13/2026 1 1 Encounter Details Date Type Department Care Team (Late st Contact Info) Description 02/13/2025 Orders Only [facility] [address] [place], [place] [phone] Maximino Rasmussen MD [address] [place] [address] [phone] Superficial thrombophlebitis of left upper extremity (Primary Dx) Social History Tobacco Use Types [...] Description 02/21/2025 9:40 AM EDT Office Visit [facility] [address] [place] [address] 03/31/2025 9:30 AM EDT Medication Management [facility] [address] [place] [address] 04/06/2025 11:15 AM EDT Office Visit [facility] [address] [place] [address] Yi Thompson MD [address] [place] [address] documented as of this encounter Goals Goal Patient Goal Type Associated Problems Recent Progress Patient-Stated? Author Blood Pressure < 140/90 Blood Pressure 141/78(2024 11:59 AM EDT) No Jn Shah Hemoglobin A1c < 7 Result Component 6.8( 8:59 AM EST) No Jn Shah documented as of this encounter Visit Diagnoses Diagnosis Superficial thrombophlebitis of left upper extremity- Primary documented in this encounter Additional Health Concerns Assessment Noted Time PHQ-9 Depression Total Score: 1 01/13/20 24 12:16 PM EST documented as of this encounter Care Teams Shelver Relationship Specialty Start Date End Date Yi Thompson MD [address] [place] [address] PCP - General Internal Medicine 08/20/23 documented as of this encounter
--- OUTSIDE RECORDS SUMMARY | 2025-02-16 09:54 | XMS_ITS | Encounter Summary ---
Author Organization [employer] Address [address] [place] [address] Care Team Providers Care Director Environmental Name Role Phone Yi Thompson MD Primary Care Pro vider Reason for Visit * Reason Comments Med Refill Encounter Details Date Type Department Care Team ([facility] st Contact Info) Description 05/20/2024 Refill [facility] [address] [place] [address] Name, MD Ronny [address] [place] [address] Social History Tobacco Use Types Packs/Day Years [...] 9:40 AM EDT Office Visit [facility] [address] [place] [address] 03/31/2025 9:30 AM EDT Medication Management [facility] [address] [place] [address] 04/06/2025 11:15 AM EDT Office Visit [facility] [address] [place] [address] Yi Thompson MD [address] [place] [address] documented as of this encounter Goals Goal [...] documented as of this encounter Care Teams Director Environmental Relationship Specialty Start Date End Date Yi Thompson MD [address] [place] [address] PCP - General Internal Medicine 08/20/23 documented as of this encounter
--- OUTSIDE RECORDS SUMMARY | 2025-02-16 09:54 | XMS_ITS | Encounter Summary ---
Author Organization [employer] Address [address] [place] [address] [facility] [place] [address] Care Team Providers Care Allergy And Immunology Chief Name Role Phone Yi Thompson MD Primary Care Pro vider Encounter Details Date Type Department Care Team (Latest Contact Info) Description 02/14/2025 Travel Social History Tobacco Use Types Packs/Day Years [...] Description 02/21/2025 9:40 AM EDT Office Visit [facility] [address] [place] [address] 03/31/2025 9:30 AM EDT Medication Management [facility] [address] [place] [address] 04/06/2025 11:15 AM EDT Office Visit [facility] [address] [place] [address] Yi Thompson MD [address] [place] [address]18 documented as of this encounter Goals Goal [...] documented as of this encounter Care Teams Allergy And Immunology Chief Relationship Specialty Start Date End Date Yi Thompson MD [address] [place] [address]245 PCP - General Internal Medicine 08/20/23 documented as of this encounter
--- OUTSIDE RECORDS SUMMARY | 2025-02-16 09:54 | XMS_ITS | Encounter Summary ---
Author Organization [employer] Address [address] [place] [address] Care Team Providers Care Store Clerk Cashier Name Role Phone Yi Thompson MD Primary Care Pro vider Reason for Visit * Reason Comments Med Refill Encounter Details Date Type Department Care Team (Late st Contact Info) Description 09/15/2023 Refill [facility] [address] [place] [address] Juliet Bird FNP [address] [place] [address] Dept [place] [address] Primary hypertension; Type 2 diabetes mellitus without complication, without long-term current use of insulin ([facility]) Social History Tobacco Use Types [...] Description 02/21/2025 9:40 AM EDT Office Visit [facility] [address] [place] [address] 03/31/2025 9:30 AM EDT Medication Management [facility] [address] [place] [address] 04/06/2025 11:15 AM EDT Office Visit [address] [address] Yi Thompson MD [address] [place] [address] documented as of this encounter Visit Diagnoses Diagnosis Primary hypertension Unspecified essential hypertension Type 2 diabetes mellitus without complication, without long-term current use of insulin ([facility]) documented in this encounter Care Teams Store Clerk Cashier Relationship Specialty Start Date End Date Yi Thompson MD [address] [place] [address] PCP - General Internal Medicine 08/20/23 documented as of this encounter
--- OUTSIDE RECORDS SUMMARY | 2025-02-16 09:54 | XMS_ITS | Encounter Summary ---
Author Organization [employer] Address [address] [place] [address] Care Team Providers Care Speech Writer Name Role Phone Yi Thompson MD Primary Care Pro vider Reason for Visit * Reason Comments Med Refill Encounter Details Date Type Department Care Team (Late st Contact Info) Description 06/02/2024 Refill [facility] [address] [place] [address] Yi Thompson MD [address] [place] [address] Social History Tobacco Use Types Packs/Day Years [...] Description 02/21/2025 9:40 AM EDT Office Visit [facility] [address] [place] [address] 03/31/2025 9:30 AM EDT Medication Management [facility] [address] [place] [address] 7[address] 04/06/2025 11:15 AM EDT Office Visit [facility] [address] [place] [address] Yi Thompson MD [address] [place] [address]152 documented as of this encounter Goals Goal [...] documented as of this encounter Care Teams Speech Writer Relationship Specialty Start Date End Date Yi Thompson MD [address] [place] [address] 97141 PCP - General Internal Medicine 08/20/23 documented as of this encounter
--- OUTSIDE RECORDS SUMMARY | 2025-02-16 09:54 | XMS_ITS | Encounter Summary ---
Author Organization [employer] Address [address] [place] [address] Care Team Providers Care Baseball Glove Stuffer Name Role Phone Yi Thompson MD Primary Care Pro vider Reason for Visit * Reason Comments Med Refill Encounter Details Date Type Department Care Team (Late st Contact Info) Description 09/12/2024 Refill [facility] 230 [place] [address] Yi Thompson MD [address] [place] [address] Type 2 diabetes mellitus without complication, without long-term current use of insulin ([facility]) Social History Tobacco Use Types [...] the past 12 months, has t he [employer], gas, oil or water company threatened to [...] Description 02/21/2025 9:40 AM EDT Office Visit [facility] [address] [place] [address] 03/31/2025 9:30 AM EDT Medication Management [facility] [address] [place] [address] 04/06/2025 11:15 AM EDT Office Visit [facility] [address] [place] [address] Yi Thompson MD [address] [place] [address]752 documented as of this encounter Goals Goal Patient Goal Type Associated Problems Recent Progress Patient-Stated? Author Blood Pressure < 140/90 Blood Pressure 141/78(2024 11:59 AM EDT) Jn Petit Hemoglobin A1c < 7 Result Component 6.8( 8:59 AM EST) Jn Petit documented as of this encounter Visit Diagnoses Diagnosis Type 2 diabetes mellitus without complication, without long-term current use of insulin ([facility]) documented in this encounter Additional Health Concerns Assessment Noted Time PHQ-9 Depression Total Score: 1 01/13/20 24 12:16 PM EST documented as of this encounter Care Teams Baseball Glove Stuffer Relationship Specialty Start Date End Date Yi Thompson MD [address] [place] [address]05 PCP - General Internal Medicine 08/20/23 documented as of this encounter
--- OUTSIDE RECORDS SUMMARY | 2025-02-16 09:54 | XMS_ITS | Encounter Summary ---
Author Organization [employer] Address [address] [place] [address] Care Team Providers Care Psychological Aide Name Role Phone Yi Thompson MD Primary Care Pro vider Encounter Details Date Type Department Care Team (Late st Contact Info) Description 02/15/2025 Refill [facility] [address] [place] [address] Yi Thompson MD [address] [place] [address] Social History Tobacco Use Types Packs/Day Years [...] Description 02/21/2025 9:40 AM EDT Office Visit [facility] [address] [place] [address] 03/31/2025 9:30 AM EDT Medication Management [facility] [address] [place] [address] 04/06/2025 11:15 AM EDT Office Visit [facility] [address] [place] [address] Yi Thompson MD [address] [place] [address] documented as of this encounter Goals Goal [...] documented as of this encounter Care Teams Psychological Aide Relationship Specialty Start Date End Date Yi Thompson MD [address] [place] [address]757 PCP - General Internal Medicine 08/20/23 documented as of this encounter
--- OUTSIDE RECORDS SUMMARY | 2025-02-16 09:54 | XMS_ITS | Encounter Summary ---
Author Organization [employer] Address [address] [place] [address] Care Team Providers Care Go Go Dancer Name Role Phone Yi Thompson MD Primary Care Pro vider Reason for Visit * Reason Comments Med Change Request Encounter Details Date Type Department Care Team ([facility] st Contact Info) Description 03/15/2024 Refill [facility] [address] [place] [address] Leticia Plunkett, ANP [address] [place] [address] Sinus pressure Social History Tobacco Use Types [...] 9:40 AM EDT Office Visit [facility] [address] [place] [address] 03/31/2025 9:30 AM EDT Medication Management [facility] [address] [place] [address] 04/06/2025 11:15 AM EDT Office Visit [facility] [address] [place] [address] Yi Thompson MD [address] [place] [address] documented as of this encounter Goals Goal [...] documented as of this encounter Care Teams Go Go Dancer Relationship Specialty Start Date End Date Yi Thompson MD [address] [place] [address] PCP - General Internal Medicine 08/20/23 documented as of this encounter
--- OUTSIDE RECORDS SUMMARY | 2025-02-16 09:54 | XMS_ITS | Encounter Summary ---
Author Organization [employer] Address [address] [place] [address] Care Team Providers Care Pin Feather Machine Operator Name Role Phone Yi Thompson MD Primary Care Pro vider Encounter Details Date Type Department Care Team ([facility] st Contact Info) Description 02/14/2025 Telephone [facility] [address] [place] [address] Maximino Rasmussen MD [address] [place] [address] Social History Tobacco Use Types Packs/Day Years [...] encounter Miscellaneous Notes * Telephone Encounter - Kalli Hammonds RN - 02/14/2025 12:53 PM EDT ----- Message from Nurse Porsha Urrutia sent at 02/13/2025 3:16 PM EDT ----- Please make attempt #2 to contact pt with updated plan of care: Per Dr. Rasmussen, pt is to return to [facility] [place] for repeat U/S schedule pt to see Dr. Rasmussen in [facility] on either 02/20 or 02/21 around 10 AM to discuss results and make a follow up plan. Dr Rasmussen has entered order requisition for U/S TC placed to pt she is scheduled for a US at [facility] [place] [place] 2:30 on 02/16/25 pt is aware pt also scheduled for follow up with Dr Rasmussen per request 02/21/25 at 9:40 documented in this encounter Plan of Treatment Upcoming Encounters Date Type Department Care Team (Late st Contact Info) Description 02/21/2025 9:40 AM EDT Office Visit [facility] W[facility] [address] [address] 03/31/2025 9:30 AM EDT Medication Management [address] [address] 04/06/2025 11:15 AM EDT Office Visit [address] [address] Yi Thompson MD [address] [place] [address] documented as of this encounter Goals Goal [...] documented as of this encounter Care Teams Pin Feather Machine Operator Relationship Specialty Start Date End Date Yi Thompson MD [address] [place] [phone] PCP - General Internal Medicine 08/20/23 documented as of this encounter
--- OUTSIDE RECORDS SUMMARY | 2025-02-16 09:54 | XMS_ITS | Encounter Summary ---
Author Organization [employer] Address [address] [place] [address] Care Team Providers Care Tetryl Wringer Operator Name Role Phone Yi Thompson MD Primary Care Pro vider Reason for Visit * Reason Comments Med Change Request Encounter Details Date Type Department Care Team ([facility] st Contact Info) Description 11/08/2023 Refill [facility] [address] [place] [address] [facility] [address] [place] [address] Viral upper respiratory illness Social History Tobacco [...] Description 02/21/2025 9:40 AM EDT Office Visit [facility] [address] [place] [address] 03/31/2025 9:30 AM EDT Medication Management [facility] [address] [place] [address] 04/06/2025 11:15 AM EDT Office Visit [facility] [address] [place] [address] Yi Thompson MD [address] [place] [address] documented as of this encounter Visit Diagnoses Diagnosis Viral upper respiratory illness documented in this encounter Care Teams Tetryl Wringer Operator Relationship Specialty Start Date End Date Yi Thompson MD [address] [place] [address] PCP - General Internal Medicine 08/20/23 documented as of this encounter
--- OUTSIDE RECORDS SUMMARY | 2025-02-16 09:54 | XMS_ITS | Encounter Summary ---
Author Organization [employer] Address [address] [place] [address] Care Team Providers Care Forest Products Gatherer Name Role Phone Juliet Bird Sandra [facility] Primary Care Provider +1- [phone] Yi Thompson MD Primary Care Pro vider Reason for Visit * Reason Comments Med Refill Encounter Details Date Type Department Care Team (Late Contact Info) Description 01/28/2023 Refill [facility] [address] [place] [address] [facility] [address] [place], [place] [phone] Primary hypertension Social History Tobacco Use Types [...] Description 02/21/2025 9:40 AM EDT Office Visit [facility] [address] [place] [phone] 03/31/2025 9:30 AM EDT Medication Management [facility] [address] [place] [address] 04/06/2025 11:15 AM EDT Office Visit [facility] [address] [place] [address] Yi Thompson MD [address] [place] [address] documented as of this encounter Visit Diagnoses Diagnosis Primary hypertension Unspecified essential hypertension documented in this encounter Care Teams Forest Products Gatherer Relationship Specialty Start Date End Date Juliet Bird FNP PCP - General Family Medicine 01/22/23 08/19/23 Yi Thompson MD [address] [place] [address] PCP - General Internal Medicine 08/20/23 documented as of this encounter
--- OUTSIDE RECORDS SUMMARY | 2025-02-16 09:55 | XMS_ITS | Encounter Summary ---
Author Organization [employer] Address [address] [place] [address] Care Team Providers Care Vp Treasurer Name Role Phone Juliet Bird Primary Care Provider +1- [phone] Yi Thompson MD Primary Care Pro vider Reason for Visit * Reason Onset Date Comments triage 02/27/2023 Encounter Details Date Type Department Care Team (Late st Contact Info) Description 02/27/2023 Telephone [facility] [address] [place] [address] Juliet Bird FNP [address] [place] [address] Dept [place] [address] triage Social History Tobacco Use Types Packs/Day [...] 02/27/2023 4:58 PM EDT Triage call with [facility] ID [id number] Pt reports a couple of days of [...] now The caller accepted this outcome speaks telugu documented in this encounter Plan of Treatment Upcoming Encounters Date Type Department Care Team (Late st Contact Info) Description 02/21/2025 9:40 AM EDT Office Visit [facility] [address] [place] [phone] 03/31/2025 9:30 AM EDT Medication Management [facility] [address] [place] [address] 04/06/2025 11:15 AM EDT Office Visit [facility] [address] [place] [address] Yi Thompson MD [address] [place] [address] documented as of this encounter Visit Diagnoses Not on filedocumented in this encounter Care Teams Vp Treasurer Relationship Specialty Start Date End Date Juliet Bird FNP PCP - General Family Medicine 01/22/23 08/19/23 Yi Thompson MD [address] [place] [address] PCP - General Internal Medicine 08/20/23 documented as of this encounter
--- OUTSIDE RECORDS SUMMARY | 2025-02-16 09:55 | XMS_ITS | Clinical Summary ---
Author Organization [employer] Address [address] [place] [address] Care Team Providers Care Digital Forensics Examiner Name Role Phone Yi Thompson MD Primary Care Pro vider Allergies Active Allergy Reactions Criticality Noted Date Comments Penicillins Hives High 12/28/2013 Other reaction(s): SWELLING , Unknown Other reaction(s): swelling pt received dose of cefazolin pre-op 07/04. Per CAT Britton, pt tolerated without issue Medications Blood Glucose Monitoring Suppl (FreeStyle [place] Lite) w/Device kit USE DIRECTED 022 Active Spacer/Aero-Holdi ng Chambers (OptiChamber Delisa) misc 1 each every 4 (four) hours if needed (asthma). 1 each 023 Active Senna-Time 8.6 MG tablet Take 2 tablets by mouth in the morning. 024 Active rosuvastatin (Crestor) 40 MG tablet Take 40 mg by mouth in the morning. Active albuterol 108 (90 Base) MCG/ACT inhalerIndication s:Wheezing Inhale 2 puffs every 6 (six) hours if needed for wheezing. 18 g 2 024 2024 Active glucose blood (FREESTYLE LITE) test stripIndications: Type 2 diabetes mellitus without complication, without long-term current use of insulin ([facility]) Use 1 by To Skin route 4 times every day 100 each 11 024 Active oxybutynin XL (Ditropan-XL) 10 MG 24 hr tablet Take 10 mg by mouth Once per day. Active aspirin-acetamino phen-caffeine (Excedrin Migraine) 250-250-65 MG tablet Take 1 tablet by mouth every 6 (six) hours if needed for headaches. 30 tablet 1 Active Alcohol Swabs pads 1 Swab at noon and 1 Swab in the evening. Use to test blood sugar twice daily. 100 each 11 Active Lancets 33G misc 1 Lancet at noon and 1 Lancet in the evening. Use to test blood sugar twice daily. 100 each Active Methylcellulose, Laxative, (Citrucel) 500 MG tablet Take by mouth. Active estradiol (Estrace) 0.1 MG/GM vaginal cream Insert 1 g into the vagina Once per day. 1g vaginally x 14d, then twice weekly thereafter 45 g 2 Active amitriptyline (Elavil) 25 MG tablet Take 1 tablet by mouth at bedtime. Active Cranberry Concentrate 500 MG capsule TAKE 1 CAPSULE BY MOUTH TWICE DAILY WITH FOOD Active cetirizine (ZyrTEC) 10 MG tablet Take 1 tablet by mouth in the morning. Active ibuprofen 400 MG tablet Take 1 tablet (400 mg) by mouth every 6 (six) hours if needed for moderate pain or fever for up to 30 doses. 30 tablet Active metFORMIN XR (Glucophage-XR) 500 MG 24 hr tabletIndications :Type 2 diabetes mellitus without complication, without long-term current use of insulin ([facility]) TAKE 1 TABLET BY MOUTH TWICE DAILY AT NOON AND IN THE EVENING WITH MEALS. DO NOT BREAK, CRUSH, DISSOLVE OR CHEW 180 tablet 2 Active levothyroxine (Synthroid, Levoxyl) 112 MCG tablet Take 1 tablet by mouth in the morning. Active hydrOXYzine pamoate (Vistaril) 25 MG capsule Take 1 capsule by mouth at bedtime. Active naproxen (Naprosyn) 500 MG tablet Take 1 tablet by mouth 2 times daily. Active gabapentin (Neurontin) 300 MG capsuleIndication s:Spondylosis of lumbar region without myelopathy or radiculopathy,Deg eneration of intervertebral disc of lumbar region, unspecified whether pain present,Lumbar radiculopathy,Chr onic right-sided low back pain with right-sided sciatica,Sacroili itis (CMS/HCC) Take 1 capsule (300 mg) by mouth at bedtime. 30 capsule 2 024 2024 Active losartan-hydroCHL OROthiazide (Hyzaar) 100-12.5 MG tablet TAKE 1 TABLET BY MOUTH EVERYDAY AT NOON 90 tablet 1 025 Active Januvia 100 MG tabletIndications :Type 2 diabetes mellitus without complication, without long-term current use of insulin (CMS/HCC) TAKE 1 TABLET BY MOUTH EVERY MORNING 90 tablet 025 Active pantoprazole (ProtoNix) 40 MG EC tablet TAKE 1 TABLET BY MOUTH EVERY MORNING 30 MINUTES BEFORE BREAKFAST 30 tablet 2 Active glucose blood (Contour Next Test) test strip Use to check blood sugar 4 times daily 100 each 12 025 2025 Active montelukast (Singulair) 10 MG tablet TAKE 1 TABLET BY MOUTH EVERYDAY AT NOON 30 tablet 2 Active acetaminophen (Tylenol 8 Hour) 650 MG ER tablet Take 1 tablet (650 mg) by mouth every 8 (eight) hours if needed for moderate pain. 40 tablet 1 Active Blood Glucose Monitoring Suppl (Contour Blood Glucose System) w/Device kit 1 Device Once per day. 1 kit 025 Active acetaminophen (Tylenol 8 Hour) 650 MG ER tablet Take 1 tablet (650 mg) by mouth every 8 (eight) hours if needed for moderate pain. 40 tablet 1 024 2024 Discontinued(R eorder (will not trigger notification to Pharmacy)) montelukast (Singulair) 10 MG tablet TAKE 1 TABLET BY MOUTH EVERYDAY AT NOON 30 tablet 2 024 2024 Discontinued acetaminophen (Tylenol Extra Strength) 500 MG tabletIndications :Influenza A Take 2 tablets (1,000 mg) by mouth every 8 (eight) hours if needed for mild pain for up to 10 days. 30 tablet 025 2024 brompheniramine-p seudoephedrine-DM 30-2-10 MG/5ML syrupIndications: Influenza A Take 5 mL by mouth if needed in the morning, at noon, in the evening, and at bedtime for allergies for up to 10 days. 120 mL 025 2024 Discontinued benzonatate (Tessalon Perles) 100 MG capsuleIndication s:Cough in adult patient,Influenza A Take 1 capsule (100 mg) by mouth if needed in the morning, at noon, and at bedtime for cough for up to 7 days. Do not crush or chew. 20 capsule 025 2024 Blood Glucose Monitoring Suppl (Contour Blood Glucose System) w/Device kit 2024 Discontinued(R eorder (will not trigger notification to Pharmacy)) Active Problems Problem Noted Date Diagnosed Date Superficial thrombophlebitis of left upper extre mity 02/13/2025 Influenza A 01/18/2025 Assessment & Plan (01/18/2025 [...] Consideration for PT once patient returns from [facility] in January. Chest pain at rest 04/15/2024 [...] for vascular referral once patient returns from [facility] in January. Irritable bowel syndrome with constipation [...] Encounters Date Type Department Care Team Description 02/15/2025 Refill [facility] [address] [place] [phone] Yi Thompson MD 02/14/2025 Travel 02/14/2025 Telephone [facility] [address] [place] [address] 48[address] Maximino Rasmussen MD 02/13/2025 Telephone [facility] [address] [place] [address] [phone] Porsha Curtis RN Plan of Care 02/13/2025 Orders Only [facility] [address] [place] [phone] Maximino Rasmussen MD Superficial thrombophlebitis of left upper extremity (Primary Dx) 02/10/2025 11:20 AM EDT Office Visit [facility] [address] [place] [address] 14650 Maximino Rasmussen MD Nonintractable episodic headache, unspecified headache type (Primary Dx); Left arm pain 02/10/2025 Telephone [facility] [address] [place] [address] 88603 Porsha Curtis, CAT Results 02/10/2025 Telephone [facility] [address] [place] [address] 14486 Porsha Curtis, CAT Recent [facility] 02/10/2025 Telephone [facility] [address] [place] [address] [phone] Yi Thompson MD Nurse Triage 02/07/2025 Telephone [facility] [address] [place] [address] [phone] Diana Beltran RN Results 02/06/2025 Orders Only [facility] [address] [place] [address] 40576 Rizzardini, Peter, CNM Breast pain, left (Primary Dx) 02/06/2025 Telephone [facility] [address] [place] [address] [phone] Yi Thompson MD Lab Orders 01/26/2025 Refill [facility] [address] [place] [address] [place], Gladys, FITTING ROOM OPERATOR 01/18/2025 10:20 AM EST Office Visit [facility] [address] [place] [address] 39849 Yi Culp MD Influenza A (Primary Dx); Cough in adult patient 01/18/2025 Telephone [facility] [address] [place] [address] [phone] Yi Thompson MD Nurse Triage 01/05/2025 Refill [facility] [address] [place] [address] [phone] Tala Armstrong RN 12/30/2024 Refill [facility] [address], [place] [phone] Yi Thompson MD 12/21/2024 10:00 AM EST Office Visit [facility] [address] [place] [address] 16085 Peter Tate, PASCUAL Breast pain, left (Primary Dx) 12/21/2024 Travel 12/15/2024 Telephone [facility] [address] [place] [address] [phone] Yi Thompson MD 12/09/2024 Orders Only GENERIC EXTERNAL DATA DEPARTMENT Provider, Generic External Data 12/08/2024 Refill [facility] [address] [place] [address] 51689 Yi Thompson MD Type 2 diabetes mellitus without complication, without long-term current use of insulin ([facility]) 11/30/2024 Telephone [facility] [address] [place] [address] [phone] Kaitlynn Faulkner, RN Results 11/29/2024 Refill [facility] [address] [place] [address] Yi Thompson MD 11/28/2024 Orders Only GENERIC [...] Sign Reading Time Taken Comments Blood Pressure 141/78 02/10/2025 11:59 AM EDT Pulse 101 02/10/2025 11:59 AM EDT Temperature 36.7 ??C (98.1 ??F) 02/10/2025 11:59 AM E DT Respiratory Rate 16 02/10/2025 11:59 AM EDT Oxygen Saturation 97% 02/10/2025 11:59 AM EDT Inhaled Oxygen Concentration - - Weight 71.2 kg (157 lb) 02/10/2025 11:59 AM EDT Height 165.1 cm (5' 5 ) 12/21/2024 9:59 AM EST Body Mass Index 26.13 12/21/2024 9:59 AM EST Plan of Treatment Upcoming Encounters Date Type Department Care Team (Late st Contact Info) Description 02/21/2025 9:40 AM EDT Office Visit [facility] [address] [place] [address] 03/31/2025 9:30 AM EDT Medication Management [facility] [address] [place] [address] 04/06/2025 11:15 AM EDT Office Visit [address] [address] Yi Thompson MD [address] [place] [phone] Health Maintenance Due Date Last Done Comments [...] 11/03/2024 Colorectal Cancer Screening 11/03/2025 Tobacco Screening 02/10/2026 02/10/2025 Eye Exam 08/08/2026 08/08/2024, 07/18, 08/08/2024, Additional [...] Name Priority Date/Time Associated Diagnosis Comments XR HUMERUS LEFT Routine 02/10/2025 2:58 PM EDT Left arm pain US DOPPLER EXT UPPER VENOUS LEFT Routine 02/10/2025 2:12 PM EDT BI US BREAST LIMITED LEFT Urgent 02/07/2025 [...] Relevant to Health Maintenance Results * XR Humerus Left (02/10/2025 2:58 PM EDT) Anatomical Region Laterality Modality Upper Extremities, Humerus Left Radio graphic Imaging 02/10/2025 2:58 PM EDT Narrative 02/10/2025 3:44 PM EDT ? [place] [facility] ?[address] ?[place] [address] ?XRay Report ? Signed ? Patient: Fany Radha,Sapna C ?MR#: M ?? [id number] ? : 1960 ?Acct:[id number] ? Age/Sex: 64 / F ?ADM Date: 02/10/25 ? Loc: HO.US ? Attending Dr: Maximino Rasmussen MD ? Ordering Physician: MAXIMINO RASMUSSEN MD ?? Date of Service: 02/10/25 ?? Procedure(s): XR humerus LT ?? Accession Number(s): [id number] ? cc: MAXIMINO RASMUSSEN MD; Yi Thompson MD ? EXAMINATION: ??XR HUMERUS LEFT ? HISTORY: atraumatic left humerus x-ray ? COMPARISON: There are no prior studies available for comparison. ? FINDINGS: ? AP and lateral views of the left humerus are submitted. ??Osseous ?? mineralization is normal. ??There is no fracture or dislocation. ??The ?? visualized shoulder and elbow joint spaces are preserved. ??The soft ?? tissues are unremarkable. ? XR/XR humerus LT ?? IMPRESSION: ? Unremarkable examination of the left humerus. ? Electronically signed by: ??Milton Duckworth MD ??02/10/2025 03:41 PM EDT ?? RP ? Dictated By: ?Milton Duckworth MD ? Signed By: ?<Electronically signed by Milton Duckworth MD in OV> ?02/10/25 1541 ? DD/ 1458 ? TD/TT: 02/10/25 1505 ? Radiologist: ? Procedure Note Lissy, Image - 02/10/[address] [address] XRay Report Signed Patient: Sapna Herzog CMR#: M [id number] : 9Acct:[id number] Age/Sex: 64 / FADM Date: 02/10/25 Loc: HO.US Attending Dr: Maximino Rasmussen MD Ordering Physician: MAXIMINO RASMUSSEN MD Date of Service: 02/10/25 Procedure(s): XR humerus LT Accession Number(s): [id number] cc: MAXIMINO RASMUSSEN MD; Yi Thompson MD EXAMINATION: XR HUMERUS LEFT HISTORY: atraumatic left humerus x-ray COMPARISON: There are no prior studies available for comparison. FINDINGS: AP and lateral views of the left humerus are submitted. Osseous mineralization is normal. There is no fracture or dislocation. The visualized shoulder and elbow joint spaces are preserved. The soft tissues are unremarkable. XR/XR humerus LT IMPRESSION: Unremarkable examination of the left humerus. Electronically signed by: Milton Duckworth MD 02/10/2025 03:41 PM EDT RP Dictated By: Milton Duckworth MD Signed By: <Electronically signed by Milton Duckworth MD in OV> 02/10/25 1541 DD/ 1458 TD/TT: 02/10/25 1505 Radiologist: us Maximino Rasmussen MD IMG XR PROCEDURES Final Result * US DOPPLER EXT UPPER VENOUS LEFT (02/10/2025 2:12 PM EDT) Anatomical Region Laterality Modality Body Ultrasound 02/10/2025 2:12 PM EDT Narrative 02/10/2025 3:08 PM EDT ? [facility] ?[address] ?[place] [address] ? Ultrasound Report ? Signed ? Patient: Sapna Herzog ?MR#: M ?? [id number] ? : 1960 ?Acct:[id number] ? Age/Sex: 64 / F ?ADM Date: 02/10/25 ? Loc: HO.US ? Attending Dr: Maximino Rasmussen MD ? Ordering Physician: MAXIMINO RASMUSSEN MD ?? Date of Service: 02/10/25 ?? Procedure(s): US venous duplex UE LT ?? Accession Number(s): [id number] ? cc: MAXIMINO RASMUSSEN MD; Yi Thompson MD ? EXAMINATION: ?? US TRIPLEX UPPER EXTREMITY, LEFT ? CLINICAL INFORMATION: ?? Left arm pain. ? COMPARISON: ?? None available. ? TECHNIQUE: ?? Color-flow triplex imaging with spectral analysis and compression ?? Doppler was performed on the left upper extremity. ? FINDINGS: ?? The left internal jugular, subclavian, and axillary veins are patent ?? and free of thrombus. The imaged segment of the left brachiocephalic ?? vein is patent. Spectral doppler waveforms are normal. ? The brachial, cephalic, radial, and ulnar veins are patent and ?? compressible. ? The basilic vein is thrombosed. No extension into the brachial vein. ? US/ venous duplex UE LT ?? IMPRESSION: ?? Thrombosis of the basilic vein. No extension into the brachial vein. ?? No evidence of deep venous thrombosis. ? Electronically signed by: ??Guanakito Melchor MD ??02/10/2025 03:05 PM EDT RP ? Dictated By: ?Guanakito Melchor MD ? Signed By: ?<Electronically signed by Guanakito Melchor MD in OV> ?02/10/25 1505 ? DD/ 1412 ? TD/TT: 02/10/25 1447 ? Radiologist: ? Procedure Note Donalejandra, Image - 02/10/2025 [place] [address] Ultrasound Report Signed Patient: Sapna Herzog CMR#: M [id number] : 1960cct:[id number] Age/Sex: 64 / FADM Date: 02/10/25 Loc: HO.US Attending Dr: Maximino Rasmussen MD Ordering Physician: MAXIMINO RASMUSSEN MD Date of Service: 02/10/25 Procedure(s): US venous duplex UE LT Accession Number(s): [id number] cc: MAXIMINO RASMUSSEN MD; Yi Thompson MD EXAMINATION: US TRIPLEX UPPER EXTREMITY, LEFT CLINICAL INFORMATION: Left arm pain. COMPARISON: None available. TECHNIQUE: Color-flow triplex imaging with spectral analysis and compression Doppler was performed on the left upper extremity. FINDINGS: The left internal jugular, subclavian, and axillary veins are patent and free of thrombus. The imaged segment of the left brachiocephalic vein is patent. Spectral doppler waveforms are normal. The brachial, cephalic, radial, and ulnar veins are patent and compressible. The basilic vein is thrombosed. No extension into the brachial vein. US/US venous duplex UE LT IMPRESSION: Thrombosis of the basilic vein. No extension into the brachial vein. No evidence of deep venous thrombosis. Electronically signed by: Guanakito Melchor MD 02/10/2025 03:05 PM EDT Dictated By: Guanakito Melchor MD Signed By: <Electronically signed by Guanakito Melchor MD in OV> 02/10/25 1505 DD/ 1412 TD/TT: 02/10/25 1447 Radiologist: us Maximino Rasmussen MD IMGhada US PROCEDURES Final Result * BI US Breast Limited Left (02/07/2025 10:44 AM EDT) Anatomical Region Laterality Modality Breast Left Ultrasound 02/07/2025 10:4 4 AM EDT Narrative 02/07/2025 11:07 AM EDT ? [facility] [place] ? [address] ?[place] [address] ? Ultrasound Report ? Signed ? Patient: Fany Radha,Sapna C ?MR#: M ?? [id number] ? : 1960 ?Acct:[id number] ? Age/Sex: 64 / F ?ADM Date: 02/07/25 ? Loc: HO.MAMMO ? Attending Dr: Peter Tate CNM ? Ordering Physician: PETER TATE CNM ?? Date of Service: 02/07/25 ?? Procedure(s): US breast LT limited mamm only ?? Accession Number(s): [id number] ? cc: Yi Thompson MD; PETER TATE [...] ??Maria Bunch DO ??02/07/2025 11:04 AM EDT ? Dictated By: ?Maria Bunch DO ? Signed By: ?<Electronically signed by Maria Bunch, DO in OV> ? 02/07/25 1104 ? DD/ 1044 ? TD/TT: 02/07/25 1058 ? Radiologist: ? Procedure Note Lissy, Image - 02/07/2025 [facility] [address] [place] [address] Ultrasound Report Signed Patient: Sapna Herzog CMR#: M [id number] : 9Acct:[id number] Age/Sex: 64 / FADM Date: 02/07/25 Loc: HO.MAMMO Attending Dr: Peter Tate CNM Ordering Physician: PETER TATE CNM Date of Service: 02/07/25 Procedure(s): US breast LT limited mamm only Accession Number(s): [id number] cc: Yi Thompson MD; PETER TATE CNM [...] 02/07/25 1104 DD/ 1044 TD/TT: 02/07/25 1058 Radiologist: us Peter Tate CNM [facility] US PROCEDURES Edited Result - Final * BI Mammogram Diagnostic Tomosynthesis Bilateral (02/07/2025 10:10 AM EDT) Anatomical Region Laterality Modality Breast Bilateral Mammography 02/07/2025 10:1 0 AM EDT Narrative 02/07/2025 11:07 AM EDT ? [facility] ? [address] ?[place] [address] ?[phone] ? Mammography Report ? Signed ? Patient: Fany Radha,Sapna C ?MR#: M ?? [id number] ? : 1960 ?Acct:[id number] ? Age/Sex: 64 / F ?ADM Date: 02/07/25 ? Loc: HO.MAMMO ? Attending Dr: Peter Tate CNM ? Ordering Physician: PETER TATE CNGriselda ?Results: 1 ?? Negative ? Date of Service: 02/07/25 ?Follow Up: 1 Year From Orig ?? inal Mammogram ? Procedure(s): MM tomosynthesis diagnostic BI ?? Accession Number(s): [id number] ? cc: Yi Thompson MD; PETER TATE [...] ??Maria Bunch DO ??02/07/2025 11:04 AM EDT ? Dictated By: ?Maria Bunch DO ? Signed By: ?<Electronically signed by Maria Bunch, DO in OV> ? 02/07/25 1104 ? DD/ 1010 ? TD/TT: 02/07/25 1035 ? Radiologist: ? Procedure Note Rocio Yuan - 02/07/2025 [facility] [address] [place] [address] Mammography Report Signed Patient: Sapna Herzog CMR#: M [id number] : 1960cct:[id number] Age/Sex: 64 / FADM Date: 02/07/25 Loc: MARKELL Attending Dr: Peter Tate CNM Ordering Physician: PETER TATEesults: 1 Negative Date of Service: 02/07/25Follow Up: 1 Year From Orig inal Mammogram Procedure(s): MM tomosynthesis diagnostic BI Accession Number(s): [id number] cc: Yi Thompson MD; PETER TATE CNM [...] 02/07/25 1104 DD/ 1010 TD/TT: 02/07/25 1035 Radiologist: us Peter CADET IM BI PROCEDURES Edited Result - Final * Influenza B (ID NOW Rapid Molecular) (01/18/2025 10:35 AM EST) Influenza B Negative Negative, Indeterminate [facility] Swab 01/18/2025 10:3 5 AM EST us Yi Ch MD POINT OF CARE TEST EN TER/EDIT ORDERABLES Final Result [facility] [address] [place] [address] [phone] * (ABNORMAL) Influenza A (ID NOW Rapid Molecular) (01/18/2025 10:35 AM EST) Influenza A Positive( A) Negative, Indeterminate [facility] Swab 01/18/2025 10:3 5 AM EST Yi Ch MD POINT OF CARE TEST EN TER/EDIT ORDERABLES Final Result [facility] [address] [place] [address] [phone] * POCT Rapid COVID Ag (01/18/2025 10:22 AM EST) Pathologist [facility] Rapid COVID Ag Negative Swab 01/18/2025 10:2 2 AM EST us Yi Ch MD POINT OF CARE TEST EN TER/EDIT ORDERABLES Final Result * FL Guidance in OR (12/09/2024 8:24 AM EST) Anatomical Region Laterality Modality X-Ray Angiograph y 12/09/2024 8:24 AM EST Narrative 12/09/2024 2:24 PM EST ? [facility] ?[address] ?[place] [address] ? Fluoroscopy Report ? Signed ? Patient: Fany Radha,Sapna C ?MR#: M ?? [id number] ? : 1960 ?Acct:[id number] ? Age/Sex: 63 / F ?ADM Date: 01/24/25 ? Loc: HO.SSS ? Attending Dr: Jcarlos Gee MD ? Ordering Physician: Jcarlos Gee MD ?? Date of Service: 12/09/24 ?? Procedure(s): FL guidance in OR ?? Accession Number(s): [id number] ? cc: Jcarlos Gee MD; Yi Thompson [...] DD/ 0824 ? TD/TT: 12/09/24 0842 ? Radiologist: ? Procedure Note Lissy, Image - 12/09/[address] [address] Fluoroscopy Report Signed Patient: Sapna Herzog CMR#: M [id number] : 1960cct:[id number] Age/Sex: 63 / FADM Date: 12/09/24 Loc: HO.SSS Attending Dr: Jcarlos Gee MD Ordering Physician: Jcarlos Gee MD Date of Service: 12/09/24 Procedure(s): FL guidance in OR Accession Number(s): [id number] cc: Jcarlos Gee MD; Yi Thompson MD [...] 12/09/24 1422 DD/ 0824 TD/TT: 12/09/24 0842 Radiologist: us [facility] External Provider IMG IR PROCEDURES Final Result * (ABNORMAL) Glucose, Whole Blood (12/09/2024 6:16 AM EST) Glucose, Whole Blood 162(H) 60 - 115 mg/dL [facility] Comment:METER #: [id number] 12/09/2024 6:16 AM EST 12/09/2024 6:19 AM EST Generic External Data Provider LAB BLOOD ORDERAB LES Final Result Performing Organization Address City/State/[facility] Co de Phone Number [facility] [address] [place] [address] [phone] * XR CERVICAL SPINE 3V (11/28/2024 3:39 PM EST) Anatomical Region Laterality Modality Abdomen Radiographic Criss ging 11/28/2024 3:39 PM EST Narrative 11/30/2024 3:35 PM EST ? [facility] ?[address] ?[place] [address] ?XRay Report ? Signed ? Patient: Fany Radha,Sapna C ?MR#: M ?? [id number] ? : 1960 ?Acct:[id number] ? Age/Sex: 63 / F ?ADM Date: 01/13/25 ? Loc: HO.XRAY ? Attending : Deepthi Velazquez MD ? Ordering Physician: Deepthi Velazquez MD ?? Date of Service: 11/28/24 ?? Procedure(s): XR cervical spine 3V ?? Accession Number(s): [id number] ? cc: Deepthi Velazquez MD; Yi Thompson [...] ??Milton Duckworth MD ??11/30/2024 03:32 PM EST ? Dictated By: ?Milton Duckworth MD ? Signed By: ?<Electronically signed by Milton Duckworth MD in OV> ?11/30/24 1532 ? DD/ 1539 ? TD/TT: 11/28/24 1557 ? Radiologist: ? Procedure Note Lissy, Image - 11/30/[address] [address] XRay Report Signed Patient: Sapna Herzog CMR#: M [id number] : 9Acct:[id number] Age/Sex: 63 / FADM Date: 11/28/24 Loc: HOAPOLINAR Attending Dr: Deepthi Velazquez MD Ordering Physician: Deepthi Velazquez MD Date of Service: 11/28/24 Procedure(s): XR cervical spine 3V Accession Number(s): [id number] cc: Deepthi Velazquez MD; Yi Thompson MD [...] 11/30/24 1532 DD/ 1539 TD/TT: 11/28/24 1557 Radiologist: [facility] External Provider IMG XR PROCEDURES Final Result * (ABNORMAL) VITAMIN D 25-OH (D2 AND D3) (11/28/2024 3:37 PM EST) Vitamin D, 25-OH, D2 <4 ng/mL [facility] Comment:This test was develo ped and its analytical performancecharacteristics have been determined by [facility] [place] [place]. It hasnot been cleared or approved by the U.S. Food and DrugAdministration. This assay has been validated pursuantto the CLIA regulations and is used for clinicalpurposes.THIS TEST WAS PERFORMED AT:[employer] [id number] [place] [id number] LEVI MD,PHD Vitamin D, 25-OH, D3 23 ng/mL [facility] Comment:This test was develo ped and its analytical performancecharacteristics have been determined by [facility] [place], [place]. It hasnot been cleared or approved by the U.S. Food and DrugAdministration. This assay has been validated pursuantto the CLIA regulations and is used for clinicalpurposes. Vitamin D, 25-OH, Total 23(A) 30 - 100 ng/mL [facility] Comment:Vitamin D, 25-Hydrox y reports concentrations [...] = 30 ng/mL.For additional information, please refer tohttp://[email or web address]/faq/[email or web address](This link is being provided for informational/educational purposes only.) 11/28/2024 3:37 PM EST 11/28/2024 3:37 PM EST us Generic External Data Provider LAB BLOOD ORDERAB LES Final Result Performing Organization Address City/[facility]/ZIP Co de Phone Number [facility] [address] [place] [phone] * Vitamin B12 (Cobalamin) and Folate Panel, Serum (11/28/2024 3:37 PM EST) Vitamin B12 295 200 - 900 pg/mL [facility] Comment:NORMAL 200-900 PG/M L INDETERMINATE 160-199 PG/ML DEFICIENT < 160 PG/ML Folate 11.5 > or = 4.0 ng/mL [facility] Comment:Reference Values:> o r = 4.0 ng/mL< 4.0 ng/mL suggests folate deficiency Methotrexate, aminopterin and folinic acid(leucovorin) are chemotherapeutic agents whose molecularstructures are similar to folate; therefore, the Architectfolate assay cannot be used for patients using these drugs. 11/28/2024 3:37 PM EST 11/28/2024 3:37 PM EST us Generic External Data Provider LAB BLOOD ORDERAB LES Final Result [facility] [address] [place] [phone] * TSH with Reflex to Free T4 (11/28/2024 3:37 PM EST) [facility] TSH reflex Free T4 2.36 0.32 - 4.0 uIU/mL [facility] 11/28/2024 3:37 PM EST 11/28/2024 3:37 PM EST us Generic External Data Provider LAB BLOOD ORDERAB LES Final Result [facility] [address] [place] [phone] * (ABNORMAL) CBC auto differential (11/28/2024 3:37 PM EST) Only the most recent of2 resultswithin the time period is included. [facility] White Blood Count 8.0 4.8 - 10.8 X10*3/uL [facility] Red Blood Count 4.57 4.20 - 5.50 X10*6/uL [facility] Hemoglobin 10.8(L) 12.0 - 16.0 g/dl [facility] Hematocrit 34.5(L) 37.0 - 47.0 % [facility] Mean Corpuscular Volume 75.5(L) 80.0 - 98.0 fL [facility] Mean Corpuscular Hemoglobin 23.6(L) 27.0 - 33.0 pg [facility] Mean Corpuscular HGB Conc 31.3 31.0 - 35.0 g/dl [facility] Red Cell Distribution Width 15.0 11.0 - 16.0 % [facility] Platelet Count 266 160 - 400 X10*3/uL [facility] Mean Platelet Volume 10.5 9.4 - 12.3 fL [facility] Neutrophils Percent Auto 65.8 45 - 73 % [facility] Imm Gran Pct Auto 0.5(H) 0.0 - 0.4 % [facility] Lymphocytes Percent Auto 23.7 20 - 40 % [facility] Monocytes Percent Auto 6.4 2 - 11 % [facility] Eosinophils Percent Auto 2.5 0 - 4 % [facility] Basophils Percent Auto 1.1 0 - 2 % [facility] NRBC Pct Auto 0.0 0.0 - 0.2 /100WBC [facility] Neutrophils Absolute Auto 5.3 2.0 - 8.3 x10*3/uL [facility] Imm Gran Abs Auto 0.04(H) 0.00 - 0.03 X10*3/uL [facility] Lymphocytes Absolute Auto 1.9 1.2 - 4.9 X10*3/uL [facility] Monocytes Absolute Auto 0.5 0.1 - 1.2 X10*3/uL [facility] Eosinophils Absolute Auto 0.2 0.0 - 0.4 X10*3/uL [facility] Basophils Absolute Auto 0.1 0.0 - 0.2 X10*3/uL [facility] NRBC Abs Auto 0.000 0.0 - 0.012 X10*3/uL [facility] 11/28/2024 3:37 PM EST 11/28/2024 3:37 PM EST us Generic External Data Provider LAB BLOOD ORDERAB LES Final Result [facility] [address] [place] [address] [phone] * Sed Rate by Modified Kiara (11/28/2024 3:37 PM EST) Erythrocyte Sedimentation Rate 17 0 - 20 MM/HR [facility] Comment:Patients with polycy themia and many hemoglobin abnormalitiesmay have depressed sed rates whereas patients with anemiamay have elevated sed rates. 11/28/2024 3:37 PM EST 11/28/2024 3:37 PM EST us Generic External Data Provider LAB BLOOD ORDERAB LES Final Result Performing Organization Address City/[facility]/ZIP Co de Phone Number [facility] [address] [place] [phone] * T4, Free (11/28/2024 3:37 PM EST) Pathologist [facility] Free T4 (Free Thyroxine) 1.31 0.71 - 1.85 ng/dL [facility] 11/28/2024 3:37 PM EST 11/28/2024 3:37 PM EST us Generic External Data Provider LAB BLOOD ORDERAB LES Final Result Performing Organization Address [facility] de Phone Number [facility] [address] [place] [phone] * (ABNORMAL) Comprehensive Metabolic Panel (11/28/2024 3:37 PM EST) Only the most recent of2 resultswithin the time period is included. [facility] Sodium 144 135 - 145 mmol/L [facility] Potassium 4.2 3.3 - 5.1 mmol/L [facility] Chloride 106 96 - 108 mmol/L [facility] Carbon Dioxide 24 22 - 29 mmol/L [facility] Anion Gap 18 12 - 20 [facility] Urea Nitrogen (BUN) 29(H) 9 - 16 mg/dL [facility] Creatinine, Serum 0.76 0.5 - 1.4 mg/dL [facility] Estimated Glomerular Filt Rate >60 [facility] Comment:Chronic Kidney Disea se: Estimated GFR < 60 mL/min/1.42m2Mdawku Kidney Disease: Estimated GFR < 15 mL/min/1.73m2 Glucose 141(H) 60 - 115 mg/dL [facility] Calcium 9.7 8.4 - 10.2 mg/dL [facility] Bilirubin, Total 0.2 0.0 - 1.0 mg/dL [facility] Aspartate Amino Transferase 22 5 - 31 U/L [facility] Alanine Aminotransferase 20 0 - 31 U/L [facility] Total Protein 8.2(H) 6.5 - 8.0 g/dL [facility] Albumin Level 4.5 3.5 - 5.0 g/dL [facility] Alkaline Phosphatase 74 39 - 117 U/L [facility] 11/28/2024 3:37 PM EST 11/28/2024 3:37 PM EST Generic External Data Provider LAB BLOOD ORDERAB LES Final Result Performing Organization Address [facility] de Phone Number [facility] [address] [place] [phone] * High Sensitivity Troponin I (11/20/2024 3:04 PM EST) Only the most recent of2 resultswithin the time period is included. TROPONIN I HIGH SENSITIVITY 4.7 <3.5 - 17.0 ng/L [facility] Comment:The [place] high sens itivity Troponin-I results should beused in conjunction with other diagnostic information suchas ECG, clinical observations and information, and patientsymptoms to aid in the diagnosis of [place]. 11/20/2024 3:04 PM EST 11/20/2024 3:08 PM EST Generic External Data Provider LAB BLOOD ORDERAB LES Final Result Performing Organization Address [facility] de Phone Number [facility] [address] [place] [phone] * XR Chest 1 View (11/20/2024 2:07 PM EST) Anatomical Region Laterality Modality Chest Radiographic Criss ging 11/20/2024 2:07 PM EST Narrative 11/20/2024 2:09 PM EST ? [facility] ?[address] ?[place] [address] ?XRay Report ? Signed ? Patient: Fany Radha,Sapna C ?MR#: M ?? [id number] ? : 1960 ?Acct:[id number] ? Age/Sex: 63 / F ?ADM Date: 01/05/25 ? Loc: HO.ED ? Attending Dr: ? Ordering Physician: Rocael Pearce ?? Date of Service: 11/20/24 ?? Procedure(s): XR chest 1V ?? Accession Number(s): [id number] ? cc: Rocael Pearce; Yi Thompson MD [...] electronically signed by: Cindy Austin DO on ?? 11/20/2024 14:07:22 ? Dictated By: ?Cindy Austin MD ? Signed By: ?<Electronically signed by Cindy Austin MD in OV> ?11/20/24 1408 ? DD/ 1407 ? TD/TT: 11/20/24 1407 ? Radiologist: ? Procedure Note Donlovecarmenter, Image - 11/20/[address] [address] XRay Report Signed Patient: Sapna Herzog CMR#: M [id number] : 9Acct:[id number] Age/Sex: 63 / FADM Date: 11/20/24 Loc: HO.ED Attending Dr: Ordering Physician: Rocael Pearce Date of Service: 11/20/24 Procedure(s): XR chest 1V Accession Number(s): [id number] cc: Rocael Pearce; Yi Thompson MD CLINICAL [...] 11/20/24 1408 DD/ 1407 TD/TT: 11/20/24 140 Radiologist: [facility] External Provider IMG XR PROCEDURES Edited Result - Final * Urinalysis, Complete, with Reflex to Culture (11/20/2024 1:32 PM EST) Color Urine Yellow [facility] Appearance Urine Clear [facility] PH 6.0 5.0 - 9.0 [facility] Glucose Urine UA Negative Negative mg/dL [facility] Urine Blood Trace Negative [facility] Specific [place] - Urine 1.010 1.005 - 1.025 [facility] Urine Protein Negative Neg-Trace mg/dL [facility] Urine Ketones Negative Negative mg/dL [facility] Nitrite Urine Negative Negative [facility] Leukocyte Esterase Urine Negative Negative [facility] RBC Urine 0-2 0 - 2 /HPF [facility] Urine WBC 0-5 0 - 5 /HPF [facility] Urine Squamous Epithelial Cell 0-2 0 - 2 /HPF [facility] Urine Bacteria None Seen None Seen [facility] Hyaline Casts, Urine 0-2 0 - 2 /LPF [facility] 11/20/2024 1:32 PM EST 11/20/2024 1:36 PM EST Narrative [facility] - 11/20/2024 1:48 PM EST 1331Urine, Clean Catch Generic External Data Provider LAB URINE ORDERAB LES Final Result [facility] [address] [place] [phone] * SARS-CoV-2 RNA, Influenza A/B, and RSV RNA, Ql NAAT (11/20/2024 12:03 PM EST) Influenza A PCR NEGATIVE Negative [facility] Influenza B PCR NEGATIVE Negative [facility] Resp Syncy Virus RNA Qual PCR NEGATIVE Negative [facility] SARS COV2 PCR NEGATIVE Negative [facility] Comment:All test results mus t be [...] use by authorized laboratories.Testing performed on the [employer] GeneXpert utilizingreal-time RT-PCR.All SARS CoV2 and positive influenza A/B results arereported to [facility]. 11/20/2024 12:0 3 PM EST 11/20/2024 12:05 PM EST Generic External Data Provider LAB MICROBIOLOGY - GENERAL ORDERABLES Final Result Performing Organization Address [facility] Co de Phone Number [facility] [address] [place] [phone] * D Dimer High Sensitivity (11/20/2024 12:02 PM EST) D Dimer High Sensitivity <150 NG/ML [facility] Comment:D-DIMER HS REFERENCE RANGENote: Our assay [...] ORDERAB LES Final Result Performing Organization Address [facility] Co de Phone Number [facility] [address] [place] [phone] * Partial Thromboplastin Time, Activated (APTT) (11/20/2024 12:02 PM EST) Partial Thromboplastin Time 35.0 26.0 - 36.8 SEC [facility] Comment:For information rega rding the monitoring of direct thrombininhibitors, please refer to Pharmacy. 11/20/2024 12:0 2 PM EST 11/20/2024 12:05 PM EST Generic External Data Provider LAB BLOOD ORDERAB LES Final Result Performing Organization Address [facility]/ZIP Co de Phone Number [facility] [address] [place] [phone] * Prothrombin Time-INR (11/20/2024 12:02 PM EST) [facility] Prothrombin Time 11.5 10.9 - 12.4 SEC [facility] INTERNATIONAL NORM RATIO 1.0 0.9 - 1.1 [facility] Comment:INTERNATIONAL NORMAL IZED RATIO (INR) REFERENCE [...] 2 PM EST 11/20/2024 12:05 PM EST [employer] External Data Provider LAB BLOOD ORDERAB LES Final Result Performing Organization Address [facility]/ZIP Co de Phone Number [facility] [address] [place] [phone] * B Type Natriuretic Peptide (BNP) (11/20/2024 12:02 PM EST) B Type Natriuretic Peptide 16 <100 pg/mL [facility] Comment:For those patients w ho are being treated with Natrecor(nesiritide, recombinant BNP), BNP testing should beperformed at least two hours post treatment in order toensure that only endogenous levels of BNP are detected. 11/20/2024 12:0 2 PM EST 11/20/2024 12:05 PM EST Generic External Data Provider LAB BLOOD ORDERAB LES Final Result [facility] [address] [place] [phone] * Colonoscopy (11/03/2024 6:36 PM EST) Historical Provider HEALTH MAINTENANCE Final Result * (ABNORMAL) POCT HGB A1C (10/28/2024 8:59 AM EST) Hemoglobin A1C 6.8(A) 4.0 - 6.0 % QC Media Lot # [id number] Lot# Expiration Date 954 Blood 10/28/2024 8:59 AM EST Cathleen [facility] POINT OF CARE TEST ENTER/ EDIT ORDERABLES Final Result * Lipid Panel, Standard (05/16/2024 11:43 AM EDT) Triglycerides 85 <150 mg/dL [facility] Comment:Desirable Triglyceri de: less than 150 mg/dLBorderline High Triglyceride 150-199 mg/dLHigh Triglyceride: 200-499 mg/dLVery High Triglyceride: greater than or equal to 5OO mg/dL Cholesterol 124 <200 mg/dL [facility] Comment:Desirable Cholestero l: less than 200 mg/dLBorderline High Cholesterol: 200-239 mg/dLHigh Cholesterol: greater than 239 mg/dL LDL Cholesterol Calculated 62 <100 mg/dL [facility] Comment:Desirable LDL: less than 100 mg/dLNear Optimal/Above Optimal LDL: 110- 129 mg/dLBorderline High LDL: 130-159 mg/dLHigh LDL: 160-189 mg/dLVery High LDL: greater than or equal to 190 mg/dL HDL Cholesterol 45 >40 mg/dL [facility] Comment:Desirable HDL: great er than 40 mg/dL Note: This HDL assay may give artificially low results in patients with liver disease. Blood Venous blood specimen / Unknown 05/16/2024 11:43 AM EDT 05/16/2024 11:49 AM EDT us Yi Cleary MD LAB BLOOD ORDERAB LES Final Result Performing Organization Address [facility] Co de Phone Number [facility] [address] [place] [address] [phone] * Albumin, Random Urine W/Creatinine (01/12/2024 3:10 PM EST) Creatinine, Urine 31.68 mg/dL [facility] Microalbumin Urine 5.0 mg/L [facility] Microalbum Creatinine Ratio Ur 15.7 <30 ug/mg cr [facility] Comment:Albumin/Creatinine R atio Reference Ranges: Normal: < 30 ug/mg creatinine Microalbuminuria: 30 - 300 ug/mg creatinineClinical Albuminuria: > 300 ug/mg creatinine 01/12/2024 3:10 PM EST 01/12/2024 4:41 PM EST us Yi Cleary MD LAB URINE ORDERAB LES Final Result Performing Organization Address [facility] Co de Phone Number [facility] [address] [place] [phone] * Hepatitis C Antibody with Reflex to HCV, RNA, Quantitative, Real-Time PCR (01/12/2024 8:56 AM EST) Hepatitis C Antibody Nonreactive Nonreactive [facility] Comment:Antibodies to HCV no t detected; does not exclude early acuteHCV infection. Blood Venous blood specimen / Unknown 01/12/2024 8:56 AM EST 01/12/2024 11:12 AM EST Yi Cleary MD LAB BLOOD ORDERAB LES Final Result Performing Organization Address [facility] Co de Phone Number [facility] [address] [place] [phone] [phone] * THINPREP PAP (10/25/2020 10:02 AM [...] historic and ?? current clinical information. ?? Projection Engineer : [employer] [facility] Comment: QUIN[place], CT(ASCP) CT screening location: [address] ??[phone] Interpretation/R esult: Negative for intraepithelial lesion or malignancy. [facility] LMP: NONE GIVEN [facility] Prev. BX: NONE [facility]IVEN [facility] Prev. PAP: NONE [facility]IVEN [facility] SOURCE: None given [facility] Statement Of Adequacy: [facility] Comment: Satisfactory for evaluation. Endocervical/transformation zone component present. 10/25/2020 10:0 2 AM EST us Peter Tate CNM LAB PATHOLOGY ORDERABLES Final Result Performing Organization Address City/[facility]/ZIP Co de Phone Number [facility] [address] * HPV mRNA E6/E7 (10/25/2020 10:02 AM EST) HPV nRNA E6/E7 Not Detected Not Detected [facility] Comment: This test was performed using the APTIMA HPV Assay ([employer] This assay detects E6/E7 viral messenger RNA (mRNA) from 14 high-risk HPV types (16,18,31,33,35,39,45,51,52,56,58,59,66,68). ?? The analytical performance characteristics of this assay have been determined by [employer]. The modifications have not been cleared or approved by the FDA. This assay has been validated pursuant to the CLIA regulations and is used for clinical purposes. 10/25/2020 10:0 2 AM EST us Peter Tate [facility] LAB BLOOD ORDERABLES Cammy hines Result [facility] [address] from Last 3 Months or Most Recently Relevant to Health Maintenance Insurance [employer] [place] [phone] Care Teams Digital Forensics Examiner Relationship Specialty Start Date End Date Yi Thompson MD [address] [place] [phone] PCP - General Internal Medicine 08/20/23
== END 2025-02-16 09:23 | disposition home or self-care (01) ==
LOC: HO.CT 09:22
PROVIDERS: PCP Student in an Organized Health Care Education/Training Program; Visit Provider Hospitalist
DX: R91.8 Other nonspecific abnormal finding of lung field (principal); I80.8 Phlebitis and thrombophlebitis of other sites
CPT/HCPCS: 71250; 93971

== ENCOUNTER → 2025-02-16 14:19 | Outpatient (BNV) | payer OTHER, SELFPAY | PROVIDERS: PCP Student in an Organized Health Care Education/Training Program; Visit Provider Radiology Diagnostic Radiology | DX: R22.32 Localized swelling, mass and lump, left upper limb (principal) | CPT/HCPCS: 71250; 93971 ==

== ENCOUNTER 2025-02-22 11:15 | Outpatient (AMB) | payer OTHER, SELFPAY ==
[2025-02-22 11:42] VITALS: BP 156/84; PULSE 106; O2SAT 98; BMI 26.4
--- NOTE | 2025-02-22 11:42 | MHC.OFFVIS ---
Vital Signs 02/22/25 11:42 Height 5 ft 4 in Weight 154 lb BMI 26.4 BP 156/84 H Blood Pressure Location Lt brachial Position Sitting Pulse 106 H Pulse Source Pulse Oximeter Pulse Oximetry (%) 98 Oxygen Delivery Method Room Air Intake Visit Reasons: Right Knee Pain Land Management Supervisor Required: Yes Land Management Supervisor Services: Land Management Supervisor Present Land Management Supervisor Name: #[phone] Information Interpreted: non-clinical & clinical Allergies Penicillins [PENICILLINS] Allergy (Intermediate, Verified 02/22/25 11:43) HIVES Medication List - Last Reconciled 02/22/25 by Sonja Anderson, BABY SITTER acetaminophen (Tylenol) 650 mg (2 x 325 mg) PO Q6H PRN albuterol sulfate 90 mcg/actuation (ProAir HFA) 2 puffs inhalation Q4-6H PRN amitriptyline 10 mg PO BEDTIME blood sugar diagnostic (Best Option TradingStyle Lite Strips) Test blood glucose twice per day blood-glucose meter (FreeStyle Lite Meter kit) As directed cholecalciferol (vitamin D3) 62.5 mcg PO QAM flash glucose scanning reader ([employer] Emile 2 [place]) As directed fluticasone furoate-vilanterol 200-25 mcg/dose (Breo Ellipta) 1 inh inhalation DAILY 30 days fluticasone propionate 50 mcg/actuation sprays intranasal gabapentin 300 mg PO BEDTIME 30 days hydrocortisone 2.5% (Proctosol HC) 1 appl ND BID-QID PRN hydroxyzine HCl 10 mg PO BEDTIME ibuprofen 600 mg PO Q8H PRN levothyroxine 112 mcg PO DAILY losartan-hydrochlorothiazide 100-12.5 mg tabs PO DAILY metformin ER 500 mg PO BID montelukast 10 mg PO DAILY naproxen 500 mg PO BID 30 days dpekeyhj-oilbltqgc-HD 3.5-10,000-1 mg/mL-unit/mL-% drps otic (ears) pantoprazole 40 mg PO DAILY sennosides (senna) 17.2 mg (2 x 8.6 mg) PO BEDTIME sitagliptin phosphate (Januvia) 100 mg PO DAILY HPI Comments Details: Sapna is back in my office after returning back home from her trip in [place]. She reports very severe pain in the right knee as well as pain in the left knee. She received conservative treatment for her knee pain in the past. She received multiple injections in bilateral knees, the injections were initially helpful but then effectiveness. She was treated in this office with [employer] spinal cord stimulator in right gutter positioned to help pain in the right knee. One of the electrodes on the stimulating lead became inactive and that prevented the patient to go for the MRI studies. To allow patient to go for MRI procedures the spinal cord stimulator was removed. Patient now reports severe intractable pain in bilateral knees. Her knees are swollen on inspection. There is minor effusion detected on inspection and palpation. The patient expressed interest in total knee replacement. I will schedule her for consultation with orthopedics office. Prior: complains on pain in the right posterior hip with radiation into anterior hip and anterior thigh. She was under care in this office with right knee pain and she received [employer] spinal cord stimulator in the lumbar position L1-L2 L3 to stimulate the dorsal roots of L1-L2 and L3 to help her pain in the knee. Since then she had several falls and she was sent to CT scan with and without contrast. Unfortunately some impedances were lost at her spinal cord stimulator and MRI is contraindicated for her. On the CT scan all levels lumbar spine appears to be normal, see the full dictation as below, accept L5-S1 level where the degenerative disc and endplate changes as well as arthritis. . [facility] Medical History Headache Cognitive disorder Cervical dystonia Palpitations Non-cardiac chest pain Pelvic pain Leg pain Bladder pain Lower abdominal pain Gross hematuria Toe pain Right knee pain Effusion, right knee Dysuria Pelvic pain in female Hematuria Mass of spine Hematuria Type 2 diabetes mellitus with polyneuropathy DM2 (diabetes mellitus, type 2) Nail deformity Paronychia Failure of spinal cord stimulator Thymoma Pulmonary nodules Thyroid cancer Blood in urine Constipation by delayed colonic transit Tubular adenoma of colon Gastritis Hypertension Dyslipidemia Post-surgical hypothyroidism Primary thyroid cancer Vitamin D deficiency Surgical History History of thymectomy History of back surgery Hx of colonoscopy Hx of thyroidectomy Hx of hernia repair Hx of section Hx of hysterectomy History of esophagogastroduodenoscopy (EGD) Family History Father Stroke Heart attack Mother Diabetes mellitus Family/Other Family history of cancer Sister Stomach cancer Family/Other Thyroid cancer Social History Household Members: Spouse, Children and Other Are you a primary career development engineer to a significant other at home: No Do you presently have visiting nurse or other home services: No Alcohol intake: unknown Patient Tobacco Use Status: Former Tobacco user Tobacco use type: Cigarette Second Hand Smoke Exposure: No Sexual orientation: Straight/Heterosexual Gender identity: Female Review of Systems Const All systems reviewed & are unremarkable except as noted in HPI and below Physical Exam Vital Signs: Last Vital Signs Pulse 106 H 02/22/25 11:42 BP 156/84 H 02/22/25 11:42 Pulse Ox 98 02/22/25 11:42 Oxygen Delivery Method Room Air 02/22/25 11:42 BMI result Body Mass Index 26.4 Const General: no acute distress and alert Orientation/consciousness: patient oriented x3 Chest Chest palpation & inspection: normal inspection of the chest Resp Effort & Inspection: normal respiratory effort, able to speak in complete sentences, normal respiratory pattern, no audible wheezes and no cough Cardio Jugular venous distension: no JVD Neuro General: patient oriented x3 Extrem Other: Mild bilateral knees effusion, tenderness on palpation, limited range of motion of both knees. Assessment & Plan Assessment & Plan (1) Patellofemoral arthritis of left knee: Code(s): M17.12 - Unilateral primary osteoarthritis, left knee Category: Medical (2) Patellofemoral arthritis of right knee: Code(s): M17.11 - Unilateral primary osteoarthritis, right knee Category: Medical Plan After removal of the spinal cord stimulator the pain of the patient became very severe. She is interested in TKA bilaterally. I will refer her for this purpose to the consult in orthopedics office. Orders: Referrals Orthopedics Referral M17.11 - Unilateral primary osteoarthritis, right knee, M17.12 - Unilateral primary osteoarthritis, left knee Coding Level of Care Code Est Pt Level 3 (90403) Diagnoses Patellofemoral arthritis of left knee M17.12 Patellofemoral arthritis of right knee M17.11
--- OUTSIDE RECORDS SUMMARY | 2025-02-22 13:19 | XMS_ITS | Encounter Summary ---
Author Organization [employer] Address [address] [place] [address] Care Team Providers Care Repeater Operator Name Role Phone Yi Thompson MD Primary Care Pro vider Reason for Visit * Reason Comments Med Refill Encounter Details Date Type Department Care Team (Late st Contact Info) Description 05/03/[address] [facility] [address] [place] [address] Yi Thompson MD [address] [place] [address] Social History Tobacco Use Types Packs/Day Years [...] EDT Medication Management [facility] [address] [place] [address] 04/06/2025 11:15 AM EDT Office Visit [facility] [address] [place] [address] Yi Thompson MD [address] [place] [address] documented as of this encounter Goals Goal Patient Goal Type Associated Problems Recent Progress Patient-Stated? Author Blood Pressure < 140/90 Blood Pressure 124/80(2024 10:11 AM EDT) No Jn Shah Hemoglobin A1c < 7 Result Component 6.8( 8:59 AM EST) No Jn Shah documented as of this encounter Visit Diagnoses Not on filedocumented in this encounter Additional Health Concerns Assessment Noted Time PHQ-9 Depression Total Score: 1 01/13/20 24 12:16 PM EST documented as of this encounter Care Teams Repeater Operator Relationship Specialty Start Date End Date Yi Thompson MD [address] [place] [phone] PCP - General Internal Medicine 08/20/23 documented as of this encounter
--- OUTSIDE RECORDS SUMMARY | 2025-02-22 13:19 | XMS_ITS | Encounter Summary ---
Author Organization [employer] Address [address] [place] [address] Care Team Providers Care Combination Machine Tender Name Role Phone Yi Thompson MD Primary Care Pro vider Reason for Visit * Reason Onset Date Comments Nurse Triage 02/15/2024 Encounter Details Date Type Department Care Team ([facility] st Contact Info) Description 02/15/2024 Telephone [facility] [address] [place] [address] Yi Thompson MD [address] [place] [address] Nurse Triage Social History Tobacco Use Types [...] 02/15/2024 12:44 PM EDT Triage call with Gray [place] [id number] Pt reports headache frontal and back of [...] 400pm. Pt is advised to come to [facility] which is open till 8pm this [...] Tingling sensation The caller accepted this outcome Macedonian speaker documented in this encounter Plan of Treatment Upcoming Encounters Date Type Department Care Team (Late st Contact Info) Description 03/31/2025 9:30 AM EDT Medication Management [facility] [address] [place] [phone] 04/06/2025 11:15 AM EDT Office Visit [facility] [address] [place] [address] Yi Thompson MD [address] [place] [phone] documented as of this encounter Visit Diagnoses Not on filedocumented in this encounter Additional Health Concerns Assessment Noted Time PHQ-9 Depression Total Score: 1 01/13/20 24 12:16 PM EST documented as of this encounter Care Teams Combination Machine Tender Relationship Specialty Start Date End Date Yi Thompson MD [address] [place] [phone] PCP - General Internal Medicine 08/20/23 documented as of this encounter
--- OUTSIDE RECORDS SUMMARY | 2025-02-22 13:19 | XMS_ITS | Encounter Summary ---
Author Organization [email or web address] Address [address] [place] [address] Care Team Providers Care Cardiopulmonary Technologist Chief Name Role Phone Yi Thompson MD Primary Care Pro vider Encounter Details Date Type Department Care Team ([facility] st Contact Info) Description 11/06/2024 Orders Only [facility] [address] [place] [address] Provider, MD Lux Social History Tobacco Use [...] Description 03/31/2025 9:30 AM EDT Medication Management [address] [phone] 04/06/2025 11:15 AM EDT Office Visit [address] [address] Yi Thompson MD [address] [place] [address] documented as of this encounter Goals Goal [...] documented as of this encounter Care Teams Cardiopulmonary Technologist Chief Relationship Specialty Start Date End Date Yi Thompson MD [address] [place] [address] PCP - General Internal Medicine 08/20/23 documented as of this encounter
--- OUTSIDE RECORDS SUMMARY | 2025-02-22 13:19 | XMS_ITS | Encounter Summary ---
Author Organization [employer] Address [address] [place] [address] Care Team Providers Care Health Researcher Name Role Phone Yi Thompson MD Primary Care Pro vider Reason for Visit * Reason Comments Med Refill Encounter Details Date Type Department Care Team ([facility] st Contact Info) Description 05/20/2024 Refill [facility] [address] [place] [phone] Name, MD Ronny [address] [place] [address] Social History Tobacco Use Types Packs/Day Years [...] Medication Management [facility] [address] [place] [phone] 04/06/2025 11:15 AM EDT Office Visit [facility] [address] [place] [address] iY Thompson MD [address] [place] [address] documented as of this encounter Goals Goal [...] documented as of this encounter Care Teams Health Researcher Relationship Specialty Start Date End Date Yi Thompson MD [address] [place] [address] PCP - General Internal Medicine 08/20/23 documented as of this encounter
--- OUTSIDE RECORDS SUMMARY | 2025-02-22 13:19 | XMS_ITS | Encounter Summary ---
Author Organization [employer] Address [address] [place] [address] Care Team Providers Care Fusion Operator Name Role Phone Yi Thompson MD Primary Care Pro vider Reason for Visit * Reason Comments Med Change Request Encounter Details Date Type Department Care Team ([facility] st Contact Info) Description 03/15/2024 Refill [facility] [address] [place] [address] Leticia Plunkett, ANP [address] [place] [address] Sinus pressure Social History Tobacco Use Types [...] 9:30 AM EDT Medication Management [facility] [address] [place] [address] 04/06/2025 11:15 AM EDT Office Visit [facility] [address] [place] [address] Yi Thompson MD [address] [place] [phone] documented as of this encounter Goals Goal [...] documented as of this encounter Care Teams Fusion Operator Relationship Specialty Start Date End Date Yi Thompson MD [address] [place] [phone] PCP - General Internal Medicine 08/20/23 documented as of this encounter
--- OUTSIDE RECORDS SUMMARY | 2025-02-22 13:19 | XMS_ITS | Encounter Summary ---
Author Organization [employer] Address [address] [place] [address] Care Team Providers Care Express Manager Name Role Phone Yi Thompson MD Primary Care Pro vider Reason for Visit * Reason Comments Med Refill Encounter Details Date Type Department Care Team (Late st Contact Info) Description 09/12/2024 Refill [facility] [address] [place] [address] Yi Thompson MD [address] [place] [address] Type 2 diabetes mellitus without complication, without long-term current use of insulin ([facility]) Social History Tobacco Use Types [...] Description 03/31/2025 9:30 AM EDT Medication Management [facility] [address] [place] [address] 04/06/2025 11:15 AM EDT Office Visit [facility] [address] [place] [address] Yi Thompson MD [address] [place] [address] documented as of this encounter Goals Goal Patient Goal Type Associated Problems Recent Progress Patient-Stated? Author Blood Pressure < 140/90 Blood Pressure 124/80(2024 10:11 AM EDT) Jn Petit Hemoglobin A1c < 7 Result Component 6.8( 8:59 AM EST) Jn Petit documented as of this encounter Visit Diagnoses Diagnosis Type 2 diabetes mellitus without complication, without long-term current use of insulin ([facility]) documented in this encounter Additional Health Concerns Assessment Noted Time PHQ-9 Depression Total Score: 1 01/13/20 24 12:16 PM EST documented as of this encounter Care Teams Express Manager Relationship Specialty Start Date End Date Yi Thompson MD [address] [place] [phone] PCP - General Internal Medicine 08/20/23 documented as of this encounter
--- OUTSIDE RECORDS SUMMARY | 2025-02-22 13:19 | XMS_ITS | Encounter Summary ---
Author Organization [employer] Address [address] [place] [address] Care Team Providers Care Environmental Compliance Manager Name Role Phone Yi Thompson MD Primary Care Pro vider Reason for Visit * Reason Comments Med Change Request Encounter Details Date Type Department Care Team ([facility] st Contact Info) Description 11/08/2023 Refill [facility] [address] [place] [address] [facility] [address] [place] [address] Viral upper respiratory illness Social History Tobacco [...] 9:30 AM EDT Medication Management [facility] [address] [place] [address] 04/06/2025 11:15 AM EDT Office Visit [facility] [address] [place] [address] Yi Thompson MD [address] [place] [address] documented as of this encounter Visit Diagnoses Diagnosis Viral upper respiratory illness documented in this encounter Care Teams Environmental Compliance Manager Relationship Specialty Start Date End Date Yi Tohmpson MD [address] [place] [address] PCP - General Internal Medicine 08/20/23 documented as of this encounter
--- OUTSIDE RECORDS SUMMARY | 2025-02-22 13:19 | XMS_ITS | Encounter Summary ---
Author Organization [employer] Address [address] [place] [address] Care Team Providers Care Lead Level Designer Name Role Phone Yi Thompson MD Primary Care Pro vider Reason for Referral * Consultation (Routine) - Authorized Specialty Diagnoses / Procedures Referred By Contely t Referred To Contact Orthopaedic Surgery Diagnoses Left elbow pain Maximino Rasmussen MD [address] [place] [address] Phone: tel: fax: [facility] Orth[facility] [address] [place] [address] Phone: tel: Referral ID Status Reason Start Date Expiration Date Visits Requested Visits Authorized [id number] Authorized Specialty Services Required 02/21/2025 02/21/2026 1 1 Encounter Details Date Type Department Care Team (Latest Contact Info) Description 02/21/2025 10:00 AM EDT Office Visit [facility] [address] [place] [address] Maximino Rasmussen MD [address] [place] [address] [phone] H/O thrombophlebitis (Primary Dx); Left elbow pain Social History Tobacco Use Types Packs/Day Years [...] Sign Reading Time Taken Comments Blood Pressure 124/80 02/21/2025 10:11 AM EDT Pulse 103 02/21/2025 10:11 AM EDT Temperature 36.7 ??C (98.1 ??F) 02/21/2025 10:11 AM E DT Respiratory Rate 16 02/21/2025 10:11 AM EDT Oxygen Saturation 98% 02/21/2025 10:11 AM EDT Inhaled Oxygen Concentration - - Weight 71.3 kg (157 lb 3.2 oz) 02/21/2025 10:11 AM EDT Height - - Body Mass Index 26.16 12/21/2024 9:59 AM EST documented in this encounter Progress Notes * Maximino Rasmussen MD - 02/21/2025 10:00 AM EDT Subjective Patient ID: Sapna Garcia is a 64 y.o. female. Medical Reception: Selwyn MAYO Sapna was seen in walk-in clinic February 10 for atraumatic pain in the mid left arm. Venous Doppler ultrasound of the left upper extremity was done and was read as thrombosis of the basilic vein. There was no extension into the brachial vein with no evidence of DVT. She was sent from ultrasound to the ED where she was advised to use warm compresses and continue her daily aspirin. An x-ray of the left humerus was also ordered showing no acute findings of the shoulder or elbow. Repeat venous Doppler ultrasound of the left upper extremity was done on February 16, read as normal with no remaining thrombophlebitis of the basilic vein and negative for DVT. Sapna returns to walk-in clinic for discussion of ultrasound results and reevaluation. She states that she still has mild pain in the mid left arm but now also has pain in the left elbow, worse on range of motion. Denies weakness or numbness. Lives with and grandchild. Never smoked. Not employed. Patient Active Problem List Diagnosis Irritable bowel [...] back pain with right-sided sciatica Influenza A Superficial thrombophlebitis of left upper extremity The following portions of the chart were reviewed this encounter and updated as appropriate: Review of Systems Constitutional: Negative for fever. Respiratory: Negative for shortness of breath. Cardiovascular: Negative for chest pain. Gastrointestinal: Negative for abdominal pain. Musculoskeletal: Positive for arthralgias. Skin: Negative for rash. Neurological: Negative for headaches. Objective Physical Exam Constitutional: Appearance: Normal appearance. HENT: Left Ear: Ear canal normal. Nose: Nose normal. Eyes: Conjunctiva/sclera: Conjunctivae normal. Pupils: Pupils are equal, round, and reactive to light. Cardiovascular: Rate and Rhythm: Normal rate and regular rhythm. Pulses: Radial pulses are 2+ on the left side. Heart sounds: No murmur heard. Pulmonary: Effort: Pulmonary effort is normal. Breath sounds: Normal breath sounds. Musculoskeletal: General: Normal range of motion. Cervical back: No tenderness. Comments: Mild tenderness to palpation of the left mid humerus flexor surface. Mild tenderness diffusely over the left elbow with increased pain on range of motion of the elbow. Skin: Findings: No rash. Neurological: Mental Status: She is alert. Gait: Gait is intact. Psychiatric: Mood and Affect: Mood normal. Behavior: Behavior normal. Procedures Assessment/Plan Diagnoses and all orders for this visit: H/O thrombophlebitis Repeat venous Doppler ultrasound of the left upper extremity done February 16 was read as normal. Refilled prescription for Tylenol. Return to clinic if pain does not resolve. Left elbow pain Referred to orthopedic surgery. Other orders - acetaminophen (Tylenol 8 Hour) 650 MG ER tablet; Take 1 tablet (650 mg) by mouth every 8 (eight) hours if needed for moderate pain. documented in this encounter Plan of Treatment Upcoming Encounters Date Type Department Care Team (Late st Contact Info) Description 03/31/2025 9:30 AM EDT Medication Management [facility] [address] [place] [phone] 04/06/2025 11:15 AM EDT Office Visit [facility] [address] [place] [address] Yi Thompson MD [address] [place] [address] Scheduled Referrals Name Type Priority Associated Diagnoses Order Schedule Referral to Orthopaedic Surgery Outpatient Referral Routine Left elbow pain Expected: 02/21/2025 (Approximate), Expires: 02/21/2026 documented as of this encounter Goals Goal Patient Goal Type Associated Problems Recent Progress Patient-Stated? Author Blood Pressure < 140/90 Blood Pressure 124/80(2024 10:11 AM EDT) No Jn Shah Hemoglobin A1c < 7 Result Component 6.8( 8:59 AM EST) No Jn Shah documented as of this encounter Visit Diagnoses Diagnosis H/O thrombophlebitis- Primary Left elbow pain Pain in joint, upper arm documented in this encounter Additional Health Concerns Assessment Noted Time PHQ-9 Depression Total Score: 1 01/13/20 24 12:16 PM EST documented as of this encounter Care Teams Lead Level Designer Relationship Specialty Start Date End Date Yi Thompson MD [address] [place] [phone] PCP - General Internal Medicine 08/20/23 documented as of this encounter
--- OUTSIDE RECORDS SUMMARY | 2025-02-22 13:19 | XMS_ITS | Encounter Summary ---
Author Organization [employer] Address [address] [place] [address] Care Team Providers Care Electrical Instrumentation Technician Name Role Phone Juliet Bird Sandra [facility] Primary Care Provider [phone] Yi Thompson MD Primary Care Pro vider Reason for Visit * Reason Comments Med Refill Encounter Details Date Type Department Care Team (Late Contact Info) Description 01/28/2023 Refill [facility] [address] [place] [phone] [facility] [address] [place], [place] [phone] Primary hypertension Social History Tobacco Use Types [...] Description 03/31/2025 9:30 AM EDT Medication Management [facility] [address] [place] [address] [phone] 04/06/2025 11:15 AM EDT Office Visit [facility] [address] [place] [address] [phone] Yi Thompson MD [address] [place], [place] [phone] documented as of this encounter Visit Diagnoses Diagnosis Primary hypertension Unspecified essential hypertension documented in this encounter Care Teams Electrical Instrumentation Technician Relationship Specialty Start Date End Date Juliet Bird FNP PCP - General Family Medicine 01/22/23 08/19/23 Yi Thompson MD [address] [place] [address] PCP - General Internal Medicine 08/20/23 documented as of this encounter
--- OUTSIDE RECORDS SUMMARY | 2025-02-22 13:19 | XMS_ITS | Encounter Summary ---
Author Organization [employer] Address [address] [place] [address] Care Team Providers Care Service Order Dispatcher Chief Name Role Phone Yi Thompson MD Primary Care Pro vider Reason for Visit * Reason Comments Med Change Request Encounter Details Date Type Department Care Team ([facility] st Contact Info) Description 11/11/[address] [facility] [address] [place] [address] [facility] [address] [place] [address] Viral upper respiratory illness Social History Tobacco [...] AM EDT Medication Management [facility] [address] [place] [address] 04/06/2025 11:15 AM EDT Office Visit [facility] [address] [place] [address] Yi Thompson MD [address] [place] [address] documented as of this encounter Visit Diagnoses Diagnosis Viral upper respiratory illness documented in this encounter Care Teams Service Order Dispatcher Chief Relationship Specialty Start Date End Date Yi Thompson MD [address] [place] [address] PCP - General Internal Medicine 08/20/23 documented as of this encounter
--- OUTSIDE RECORDS SUMMARY | 2025-02-22 13:19 | XMS_ITS | Data Portability ---
Author Organization [place] [facility], Allergy Address [address] [address] Assessment No assessment recorded. Plan of Treatment [...] contr ast No observ ation record ed. [facility] Radiology ([facility]) [address] [place] [address], [place], [address], 07/12/2024 17:28:21 07/12/20 24 03/07/2024 CT, neck, soft tissu e, w/ contr ast No observ ation record ed. [email or web address] Not Available 06/17 14:31:41 Result Notes None [...] Available [employer] 4 03:27:19 Oropharyn geal dysphagia [id number] Active 2023 CHANTEL MEYER MD [address] [facility],[place] [address], [facility] [place], [address] , [facility] - [facility] 4 14:16:46 Acquired vocal cord palsy 641502149 Active 2023 CHANTEL MEYER MD [address] [facility],[place] [address], [place], [address] , [facility] - [facility] 4 14:27:26 Problem Notes None recorded. Procedures Surgical History Date Name Laterality Status Provider Name and Address Organization Details Recorded Time 07/12/2024 FFL_RE completed CHANTEL MEYER MD [address] [facility],[place] [address], [place], [address], [facility] 07/12/2024 14:20:56 Imaging Results Imaging Date Name Status LastModified by Organiz ation Details LastModified Time 03/07/2024 CT, neck, soft tissue, w/ contrast completed [facility] Radiology ([facility]) [address], [place], [address], 07/12/2024 17:28:21 03/07/2024 CT, neck, soft tissue, w/ contrast completed [email or web address] Information not available 07/12/2024 14:31:41 Procedure Notes None recorded. Medical Equipment None Reported. Allergies Allergen ID Allergen Name Allergen Category Reaction Reaction Severity Criticality Documentation Date Start Date Code Code System Note Provider Name and Address Organization Details Recorded Time 34001 Product containin g penicilli n (product) medicatio n other Not available Not available 03/29/2024 64725 8001 SNOMED React ion: unkno wn, unspe cifie d;; Not Available [employer] 01:03:20 Medications Name Sig Start Date Stop Date Status Note LastModified by Organization Details LastModified Time medbox status USE DIRECTED active Not Available Not Available No t Available freestyle lite test strips strp active Not Available Not Available Not Available losartan 50 mg tablet active Medicati on ID: 00706 Br and Name: losartan Send Method: E-Prescr [...] 40 mg tablet active Medicati on ID: 96023 Br and Name: lovastat in Send Method: E-Prescr ibed Sub s Allowed: subs OK Medic ationGen ericName : lovastat in Not Available Not Available Not Available amlodipin e 5 mg tablet active Medicati on ID: 43903 Br and Name: amlodipi ne Send Method: [...] Not Available Not Available No t Available Lynn Thyroid 15 mg tablet active Medicati on ID: 19506 Br and Name: Lynn Thyroid Send Method: E-Prescr ibed Sub s Allowed: subs OK Medic ationGen ericName : Lynn Thyroid Not Available Not Available Not Available amitripty line 25 mg tablet active Medicati on ID: 34448 Br and Name: amitript yline Se nd Method: E-Prescr ibed Sub s Allowed: subs OK Medic ationGen ericName : amitript yline Not Available Not Available Not Available Protonix 40 mg intraveno us solution active Medicati on ID: 92053 Br and Name: Protonix Send Method: E-Prescr [...] 150 mg capsule active Medicati on ID: 84782 Br and Name: ranitidi ne HCl Send Method: E-Prescr ibed Sub s Allowed: subs OK Medic ationGen ericName : ranitidi ne HCl Not Available Not Available Not Available hydrochlo rothiazid e 25 mg tablet active Medicati on ID: 73238 Br and Name: hydrochl orothiaz ro Send [...] 17 gram/dose oral powder USE DIRECTED BY [facility] active Not Available Not Available No t [...] release 24hr (osmotic) active Medicati on ID: 24600 Br and Name: meturbano forrest Send Method: [...] tablet,de layed release [place] Medicati on ID: 83077 Du ration Value: 30 Brand Name: omeprazo le Send Method: E-Prescr ibed Sub s Allowed: subs OK Speci al Instruct ion: Take 1 tablet by mouth every day before a meal [facility] me: omeprazo le Not Available [...] Updated DateTime 07/12/2024 165.1 cm 27.3 kg/m2 91560.15 g [place] [facility] 07/12/2024 14:07:22 Social History None recorded. Functional Status None recorded. Mental Status None recorded. Family History Nothing Reported. Medical History No medical history recorded. Gynecological HistoryNo gynecological history recorded. Obstetrics History GPAL:G 0 P 0 0 0 0 Past Encounters Encounter ID Performer Location Encounter Start Date Encounter Closed Date Diagnosis/Indication Diagnosis SNOMED-CT Code Diagnosis ICD10 Code Diagnosis Note [id number] CHANTEL MEYER MD [facility] [address] [address] 07/12/2024 13:49:31 07/12/2024 16:53:30 Oropharyngeal dysphagia 16383039 R13.12 Likely due to esophageal dysmotilit y. VC paralysis is a factor but doesn't explain her dysphagia to solids. I recommend she discuss GI referral with her PCP. I would be glad to see her as needed. I personally reviewed her imaging reports. Acquired v ocal cord palsy [id number] J38.00 Likely from initial surgery 14 years [...] Name 07/12/2024 1 [employer] [place] [employer] [id number] Giuseppe Rodriguez [id number] Sapna Garcia Notes Date Note Type Note Provider Name and Address Organization Details Recorded Time 07/12/2024 text/html She has a histor y of thyroid cancer. She had thyroidectomy in [place] 14 years ago. She had repeat surgery here 5-6 years ago. She reports her swallowing has been a problem since her first surgery. She had a swallow study at [facility]. She feels like food gets stuck. Has occasional choking with liquids. She has never smoked. She denies throat pain and SOB. I reviewed an Upper GI series which showed esophageal dysmotility. I also reviewed her CT neck with 02/2024 which showed possible right vocal cord paralysis. contrast CHANTEL MEYER MD [address] [place] [address], [place], [address], [facility] - [facility] 07/12/2024 14:28:36 OBGyn Episode No OBEpisode recorded.
--- OUTSIDE RECORDS SUMMARY | 2025-02-22 13:19 | XMS_ITS | Encounter Summary ---
Author Organization [employer] Address [address] [place] [address] Care Team Providers Care Heating Systems Installer Name Role Phone Yi Thompson MD Primary Care Pro vider Reason for Visit * Reason Comments Med Refill Encounter Details Date Type Department Care Team (Late st Contact Info) Description 06/02/2024 Refill [facility] [address] [place] [address] Yi Thompson MD [address] [place] [address] Social History Tobacco Use Types Packs/Day Years [...] AM EDT Medication Management [facility] [address] [place] [address] 04/06/2025 11:15 AM EDT Office Visit [facility] [address] [place] [address] Yi Thompson MD [address] [place] [address] documented as of this encounter Goals Goal [...] documented as of this encounter Care Teams Heating Systems Installer Relationship Specialty Start Date End Date Yi Thompson MD [address] [place] [address] PCP - General Internal Medicine 08/20/23 documented as of this encounter
--- OUTSIDE RECORDS SUMMARY | 2025-02-22 13:20 | XMS_ITS | Encounter Summary ---
Author Organization [employer] Address [address] [place] [address] Care Team Providers Care Tube Balancer Name Role Phone Juliet Bird Primary Care Provider [phone]- [phone] Yi Thompson MD Primary Care Pro vider Reason for Visit * Reason Onset Date Comments triage 02/27/2023 Encounter Details Date Type Department Care Team (Late st Contact Info) Description 02/27/2023 Telephone [facility] [address] [place] [address] Juliet Bird FNP [address] [place] [address] Dept [place] [address] triage Social History Tobacco Use Types Packs/Day [...] 02/27/2023 4:58 PM EDT Triage call with [employer] Door Installer ID [id number] Pt reports a couple of days of [...] now The caller accepted this outcome speaks divehi documented in this encounter Plan of Treatment Upcoming Encounters Date Type Department Care Team (Late st Contact Info) Description 03/31/2025 9:30 AM EDT Medication Management [facility] [address] [place] [address] 04/06/2025 11:15 AM EDT Office Visit [facility] [address] [place] [address] Yi Thompson MD [address] [place] [address] documented as of this encounter Visit Diagnoses Not on filedocumented in this encounter Care Teams Tube Balancer Relationship Specialty Start Date End Date Juliet Bird FNP PCP - General Family Medicine 01/22/23 08/19/23 Yi Thompson MD [address] [place] [address] PCP - General Internal Medicine 08/20/23 documented as of this encounter
--- OUTSIDE RECORDS SUMMARY | 2025-02-22 13:20 | XMS_ITS | Clinical Summary ---
Author Organization [employer] Address [address] [place] [phone] Care Team Providers Care Application Integration Architect Name Role Phone Yi Thompson MD Primary Care Pro vider Allergies Active Allergy Reactions Criticality Noted Date Comments Penicillins Hives High 12/28/2013 Other reaction(s): SWELLING , Unknown Other reaction(s): swelling pt received dose of cefazolin pre-op 07/04. Per CAT Britton, pt tolerated without issue Medications Blood Glucose Monitoring Suppl (FreeStyle [place]ewell Lite) w/Device kit USE DIRECTED 022 Active [...] needed for wheezing. 18 g 2 024 Active glucose blood (FREESTYLE LITE) test stripIndications: Type 2 diabetes mellitus without complication, without long-term current use of insulin ([facility]) Use 1 by To Skin route 4 times every day 100 each 11 024 Active oxybutynin XL (Ditropan-XL) 10 MG 24 hr tablet Take 10 mg by mouth Once per day. 01/29/2 024 Active aspirin-acetamino phen-caffeine (Excedrin Migraine) 250-250-65 MG [...] complication, without long-term current use of insulin ([facility]) TAKE 1 TABLET BY MOUTH TWICE [...] EVERYDAY AT NOON 30 tablet 2 Active Blood Glucose Monitoring Suppl (Contour Blood Glucose System) w/Device kit 1 Device Once per day. 1 kit 025 Active acetaminophen (Tylenol 8 Hour) 650 MG ER tablet Take 1 tablet (650 mg) by mouth every 8 (eight) hours if needed for moderate pain. 40 tablet 1 025 Active acetaminophen (Tylenol 8 Hour) 650 [...] to 10 days. 30 tablet 025 2024 benzonatate (Tessalon Perles) 100 MG capsuleIndication s:Cough in adult patient,Influenza A Take 1 capsule (100 mg) by mouth if needed in the morning, at noon, and at bedtime for cough for up to 7 days. Do not crush or chew. 20 capsule 025 2024 acetaminophen (Tylenol 8 Hour) 650 MG ER tablet Take 1 tablet (650 mg) by mouth every 8 (eight) hours if needed for moderate pain. 40 tablet 1 025 2024 Discontinued(R eorder (will not trigger notification to Pharmacy)) Blood Glucose Monitoring Suppl (Contour Blood Glucose [...] Consideration for PT once patient returns from [facility] in January. Chest pain at rest [...] 09/17/2023 Forgetfulness 04/15/2023 Overview (08/20/2023): Seen at [facility] ED on 07/15/2020 for right sided facial [...] for vascular referral once patient returns from [facility] in January. Irritable bowel syndrome with [...] Encounters Date Type Department Care Team Description 02/21/2025 10:00 AM EDT Office Visit [facility] [address] [place] [phone] Maximino Rasmussen MD H/O thrombophlebitis (Primary Dx); Left elbow pain 02/16/2025 Orders Only [facility] [address] [place] [address] [phone] Maximino Rasmussen MD 02/15/2025 Refill [facility] [address] [place] [address] [phone] Yi Thompson MD 02/14/2025 Travel 02/14/2025 Telephone [facility] [address] [place] [address] [phone] Maximino Rasmussen MD 02/13/2025 Telephone [facility] [address] [place] [address] [phone] Porsha Curtis RN Plan of Care 02/13/2025 Orders Only [facility] [address] [place] [address] [phone] Maximino Rasmussen MD Superficial thrombophlebitis of left upper extremity (Primary Dx) 02/10/2025 11:20 AM EDT Office Visit [facility] [address] [place] [address] [phone] Maximino Rasmussen MD Nonintractable episodic headache, unspecified headache type (Primary Dx); Left arm pain 02/10/2025 Telephone [facility] [address] [place] [address] [phone] Porsha Curtis, RN Results 02/10/2025 Telephone [facility] [address] [place] [address] [phone] Porsha Curits, RN Recent [facility] OV 02/10/2025 Telephone [facility] [address] [place] [address] [phone] Yi Thompson MD Nurse Triage 02/07/2025 Telephone [facility] [address] [facility] [place] [address] Diana Beltran, RN Results 02/06/2025 Orders Only [facility] [address] [facility] [place] [address] Peter Tate, CNGriselda Breast pain, left (Primary Dx) 02/06/2025 Telephone [facility] [address] [place] [address] Yi Thompson MD Lab Orders 01/26/2025 Refill [facility] [address] [place] [place] [address] [facility] 01/18/2025 10:20 AM EST Office Visit [facility] [address] [facility] [place] [address] Yi Culp MD Influenza A (Primary Dx); Cough in adult patient 01/18/2025 Telephone [facility] [address] [place] [address] Yi Thompson MD Nurse Triage 01/05/2025 Refill [facility] [address] [place] [address] Tala Armstrong, RN 12/30/2024 Refill [facility] [address] [place] [address] Yi Thompson MD 12/21/2024 10:00 AM EST Office Visit [facility] [place] [address] Peter Tate, CNGriselda Breast pain, left (Primary Dx) 12/21/2024 Travel 12/15/2024 Telephone [facility] [address] [place] [address] Yi Thompson MD 12/09/2024 Orders Only GENERIC EXTERNAL DATA DEPARTMENT Provider, Generic External Data 12/08/2024 Refill [facility] [place] [address] Yi Thompson MD Type 2 diabetes mellitus without complication, without long-term current use of insulin ([facility]) 11/30/2024 Telephone [facility] [address] [place] [address] Kaitlynn Faulkner RN Results 11/29/2024 Refill [facility] [address] [place] [address] Yi Thompson MD 11/28/2024 Orders Only GENERIC [...] 3.2 oz) 02/21/2025 10:11 AM EDT Height 165.1 cm (5' 5 ) 12/21/2024 9:59 AM EST Body Mass Index 26.16 12/21/2024 9:59 AM EST Plan of Treatment Upcoming Encounters Date Type Department Care Team (Late st Contact Info) Description 03/31/2025 9:30 AM EDT Medication Management [facility] [address] [place] [phone] 04/06/2025 11:15 AM EDT Office Visit [facility] [address] [place] [address] [phone] Yi Thompson MD [address] [place] [phone] Health Maintenance Due Date Last Done Comments [...] 11/03/2024 Colorectal Cancer Screening 11/03/2025 Tobacco Screening 02/21/2026 02/21/2025 Eye Exam 08/08/2026 08/08/2024, 07/18, 08/08/2024, Additional [...] Procedure Name Priority Date/Time Associated Diagnosis Comments CT CHEST WO CONTRAST Routine 02/17/2025 8:24 AM EDT US DOPPLER EXT UPPER VENOUS LEFT Routine 02/16/2025 2:25 PM EDT XR HUMERUS LEFT Routine 02/10/2025 2:58 PM [...] AUTO DIFFERENTIAL Routine 11/28/2024 3:37 PM EST HM COLONOSCOPY Routine 11/03/2024 6:36 [...] Recently Relevant to Health Maintenance Results * CT Chest w/o Contrast (02/17/2025 8:24 AM EDT) Anatomical Region Laterality Modality Body, Chest Computed Tomogra phy 02/17/2025 8:24 AM EDT Narrative 02/17/2025 8:25 AM EDT ? [facility] ?[address] ?[place] [address] ? CT Scan Report ? Signed ? Patient: Sapna Herzog ?MR#: M ?? [id number] ? : 1960 ?Acct:[id number] ? Age/Sex: 64 / F ?ADM Date: 02/16/25 ? Loc: HO.CT ? Attending Dr: Ganesh Arias MD ? Ordering Physician: Ganesh Arias MD ?? Date of Service: 02/16/25 ?? Procedure(s): CT chest wo IV con ?? Accession Number(s): [id number] ? cc: Yi Thompson MD; Ganesh Arias MD ? Report Number: ?? [id number]: Total DLP = ??111.00 mGy-cm ? CLINICAL HISTORY: R91.8 - Other nonspecific abnormal finding of lung field ? CT chest without contrast ? Comparison: 09/14/2023 ? Findings: ?? The heart size is normal. ?? The visualized thyroid and mediastinum are unremarkable. ? 3 mm left lower lobe pulmonary lesion is unchanged, likely benign. ?? The lungs are otherwise clear. ? The appearance of the liver suggests fatty infiltration without focal ?? lesion. ?? The upper abdomen is otherwise unremarkable. ?? The bones are intact. ? IMPRESSION: ?? 1. Stable, likely benign, left lower lobe pulmonary lesion. ?? 2. Hepatic steatosis. ? This document has been electronically signed by: Everardo Padilla MD on ?? 02/17/2025 08:24:32 ? Dictated By: ?Everardo Padilla MD ? Signed By: ?<Electronically signed by Everardo Padilla MD in OV> ?02/17/2525 ? DD/ 3 ? TD/TT: 02/17/25823 ? Mine Exploration Engineer: ? Procedure Note Donloveinterpreter, Image - 02/17/[address] [address] [address] Scan Report Signed Patient: Sapna Herzog CMR#: M [id number] : 9Acct:[id number] Age/Sex: 64 / FADM Date: 02/16/25 Loc: HO.CT Attending Dr: Ganesh Arias MD Ordering Physician: Ganesh Arias MD Date of Service: 02/16/25 Procedure(s): CT chest wo IV con Accession Number(s): [id number] cc: Yi Thompson MD; Ganesh Arias MD Report Number: [id number]: Total DLP = 111.00 mGy-cm CLINICAL HISTORY: R91.8 - Other nonspecific abnormal finding of lung field CT chest without contrast Comparison: 09/14/2023 Findings: The heart size is normal. The visualized thyroid and mediastinum are unremarkable. 3 mm left lower lobe pulmonary lesion is unchanged, likely benign. The lungs are otherwise clear. The appearance of the liver suggests fatty infiltration without focal lesion. The upper abdomen is otherwise unremarkable. The bones are intact. IMPRESSION: 1. Stable, likely benign, left lower lobe pulmonary lesion. 2. Hepatic steatosis. This document has been electronically signed by: Everardo Padilla MD on 02/17/2025 08:24:32 Dictated By: Everardo Padilla MD Signed By: <Electronically signed by Everardo Padilla MD in OV> 02/17/25824 DD/ 3 TD/TT: 02/17/25823 Mine Exploration Engineer: us [facility] External Provider IMG CT PROCEDURES Final Result * US DOPPLER EXT UPPER VENOUS LEFT (02/16/2025 2:25 PM EDT) Only the most recent of2 resultswithin the time period is included. Anatomical Region Laterality Modality Body Ultrasound 02/16/2025 2:25 PM EDT Narrative 02/16/2025 3:50 PM EDT ? [facility] ?[address] ?[place], [place] [address] ? Ultrasound Report ? Signed ? Patient: Fany Radha,Sapna Sands ?MR#: M ?? [id number] ? : 1960 ?Acct:[id number] ? Age/Sex: 64 / F ?ADM Date: 02/16/25 ? Loc: HO.CT ? Attending Dr: Ganesh Arias MD ? Ordering Physician: MAXIMINO RASMUSSEN MD ?? Date of Service: 02/16/25 ?? Procedure(s): US venous duplex UE LT ?? Accession Number(s): [id number] ? cc: MAXIMINO RASMUSSEN MD; Yi Thompson MD ? EXAMINATION: ?? US TRIPLEX UPPER EXTREMITY, LEFT ? CLINICAL INFORMATION: ?? Thrombophlebitis, left basilic vein ? COMPARISON: ?? February 10, 2025. ? TECHNIQUE: ?? Color-flow triplex imaging with spectral analysis and compression ?? Doppler was performed on the left upper extremity. ? FINDINGS: ?? The left internal jugular, subclavian, and axillary veins are patent ?? with normal spectral Doppler waveforms. The imaged segment of the left ?? brachiocephalic vein is patent. Spectral doppler waveforms are normal. ? The brachial, basilic, cephalic, radial, and ulnar veins are patent and ?? compressible. ? US/US venous duplex UE LT ?? IMPRESSION: ?? No acute deep venous thrombosis involving the left upper extremity. ?? Negative for DVT. ?? Negative for thrombophlebitis in the basilic vein.. ? Electronically signed by: ??Andres Kendall MD ??02/16/2025 03:46 PM ?? EDT RP ? Dictated By: ?Andres Salcido MD ? Signed By: ?<Electronically signed by Andres Armstrong MD in OV> ? 02/16/25 1546 ? DD/ 1425 ? TD/TT: 02/16/25 1438 ? Mine Exploration Engineer: ? Procedure Note Donotuseinterpreter, Image - 02/16/2025 [place] [address] Ultrasound Report Signed Patient: Sapna Herzog CMR#: M [id number] : 9Acct:[id number] Age/Sex: 64 / FADM Date: 02/16/25 Loc: HO.CT Attending Dr: Ganesh Arias MD Ordering Physician: MAXIMINO RASMUSSEN MD Date of Service: 02/16/25 Procedure(s): US venous duplex UE LT Accession Number(s): [id number] cc: MAXIMINO RASMUSSEN MD; Yi Thompson MD EXAMINATION: US TRIPLEX UPPER EXTREMITY, LEFT CLINICAL INFORMATION: Thrombophlebitis, left basilic vein COMPARISON: February 10, 2025. TECHNIQUE: Color-flow triplex imaging with spectral analysis and compression Doppler was performed on the left upper extremity. FINDINGS: The left internal jugular, subclavian, and axillary veins are patent with normal spectral Doppler waveforms. The imaged segment of the left brachiocephalic vein is patent. Spectral doppler waveforms are normal. The brachial, basilic, cephalic, radial, and ulnar veins are patent and compressible. US/US venous duplex UE LT IMPRESSION: No acute deep venous thrombosis involving the left upper extremity. Negative for DVT. Negative for thrombophlebitis in the basilic vein.. Electronically signed by: Andres Kendall MD 02/16/2025 03:46 PM EDT Dictated By: Andres Salcido MD Signed By: <Electronically signed by Andres Armstrong MDin OV> 02/16/25 1546 DD/ 1425 TD/TT: 02/16/25 1438 Mine Exploration Engineer: Maximino VALDEZ US PROCEDURES Edited Result - Final * XR Humerus Left (02/10/2025 2:58 PM EDT) Anatomical Region Laterality Modality Upper Extremities, Humerus Left Radio graphic Imaging 02/10/2025 2:58 PM EDT Narrative 02/10/2025 3:44 PM EDT ? [facility] ?[address] ?[place] [address] ?XRay Report ? Signed ? Patient: Fany Radha,Sapna C ?MR#: M ?? [id number] ? : 1960 ?Acct:[id number] ? Age/Sex: 64 / F ?ADM Date: 02/10/25 ? Loc: HO.US ? Attending Dr: Maximino Rasmussen MD ? Ordering Physician: MAXIMINO RASMUSSEN MD ?? Date of Service: 02/10/25 ?? Procedure(s): XR humerus LT ?? Accession Number(s): [id number] ? cc: MAXIMINO RASMUSSEN MD; Yi Thompson [...] DD/ 1458 ? TD/TT: 02/10/25 1505 ? Mine Exploration Engineer: ? Procedure Note Lissy, Rocio - 02/10/2025 [facility] [address] [facility] [place] [address] XRay Report Signed Patient: Tone Herzoga CMR#: M [id number] : 1960cct:[id number] Age/Sex: 64 / FADM Date: 02/10/25 Loc: HO.US Attending Dr: Maximino Rasmussen MD Ordering Physician: MAXIMINO RASMUSSEN MD Date of Service: 02/10/25 Procedure(s): XR humerus LT Accession Number(s): [id number] cc: MAXIMINO RASMUSSEN MD; Yi Thompson MD [...] 02/10/25 1541 DD/ 1458 TD/TT: 02/10/25 1505 Mine Exploration Engineer: us Maximino Rasmussen MD IMG XR PROCEDURES Final Result * BI US Breast Limited Left (02/07/2025 10:44 AM EDT) Anatomical Region Laterality Modality Breast Left Ultrasound 02/07/2025 10:4 4 AM EDT Narrative 02/07/2025 11:07 AM EDT ? [facility] ? [address] ?[place] [address] ? Ultrasound Report ? Signed ? Patient: Fany Radha,Sapna C ?MR#: M ?? [id number] ? : 1960 ?Acct:[id number] ? Age/Sex: 64 / F ?ADM Date: 03/25/25 ? Loc: HO.MAMMO ? Attending Dr: Peter Tate CNM ? Ordering Physician: PETER TATE CNM ?? Date of Service: 02/07/25 ?? Procedure(s): US breast LT limited mamm only ?? Accession Number(s): [id number] ? cc: Yi Thompson MD; PETER TATE [...] next mammogram. ? Electronically signed by: ??Maria Canalesdio DO ??02/07/2025 11:04 AM EDT ?? RP ? Dictated By: ?Maria Bunch DO ? Signed By: ?<Electronically signed by Maria Bunch, DO in OV> ? 02/07/25 1104 ? DD/ 1044 ? TD/TT: 02/07/25 1058 ? Mine Exploration Engineer: ? Procedure Note Lissy, Image - 02/07/2025 [facility] [address] [place], [place] [address] Ultrasound Report Signed Patient: Sapna Herzog CMR#: M [id number] : 9Acct:[id number] Age/Sex: 64 / FADM Date: 02/07/25 Loc: HO.MAMMO Attending Dr: Peter Tate CNM Ordering Physician: PETER TATE CNM Date of Service: 02/07/25 Procedure(s): US breast LT limited mamm only Accession Number(s): [id number] cc: Yi Thompson MD; PETER TATE CNM [...] 02/07/25 1104 DD/ 1044 TD/TT: 02/07/25 1058 Mine Exploration Engineer: us Peter Tate CNM IMG US PROCEDURES Edited Result - Final * BI Mammogram Diagnostic Tomosynthesis Bilateral (02/07/2025 10:10 AM EDT) Anatomical Region Laterality Modality Breast Bilateral Mammography 02/07/2025 10:1 0 AM EDT Narrative 02/07/2025 11:07 AM EDT ? [facility] ? [address] ?[place], [place] [address] ?[phone] ? Mammography Report ? Signed ? Patient: Jose Herzogncjorge Sands ?MR#: M ?? [id number] ? : 1960 ?Acct:[id number] ? Age/Sex: 64 / F ?ADM Date: 02/07/25 ? Loc: HO.MAMMO ? Attending Dr: Peter Tate CNM ? Ordering Physician: PETER TATE CNM ?Results: 1 ?? Negative ? Date of Service: 02/07/25 ?Follow Up: 1 Year From Orig ?? inal Mammogram ? Procedure(s): MM tomosynthesis diagnostic BI ?? Accession Number(s): [id number] ? cc: Yi Thompson MD; PETER TATE [...] DD/ 1010 ? TD/TT: 02/07/25 1035 ? Mine Exploration Engineer: ? Procedure Note Lissy, Image - 02/07/2025 [place] [facility] [address] [place] [address] Mammography Report Signed Patient: Sapna Herzog CMR#: M [id number] : 1960cct:[id number] Age/Sex: 64 / FADM Date: 02/07/25 Loc: HO.MAMMO Attending Dr: Peter Tate CNM Ordering Physician: PETER TATEesults: 1 Negative Date of Service: 02/07/25Follow Up: 1 Year From Orig ina Mammogram Procedure(s): MM tomosynthesis diagnostic BI Accession Number(s): [id number] cc: Yi Thompson MD; PETER TATE CNM [...] 02/07/25 1104 DD/ 1010 TD/TT: 02/07/25 1035 Mine Exploration Engineer: Peter CADET IMG BI PROCEDURES Edited Result - Final * Influenza B (ID NOW Rapid Molecular) (01/18/2025 10:35 AM EST) Influenza B Negative Negative, Indeterminate [facility] Swab 01/18/2025 10:3 5 AM EST Yi Ch MD POINT OF CARE TEST EN TER/EDIT ORDERABLES Final Result Performing Organization Address [facility]/ZIP Co de Phone Number [facility] [address] [place] [phone] * (ABNORMAL) Influenza A (ID NOW Rapid Molecular) (01/18/2025 10:35 AM EST) Influenza A Positive( A) Negative, Indeterminate [facility] Swab 01/18/2025 10:3 5 AM EST Yi Ch MD POINT OF CARE TEST EN TER/EDIT ORDERABLES Final Result Performing Organization Address [facility]/ZIP Co de Phone Number [facility] [address] [place] [phone] * POCT Rapid COVID Ag (01/18/2025 10:22 AM EST) Rapid COVID Ag Negative Swab 01/18/2025 10:2 2 AM EST Yi Ch MD POINT OF CARE TEST EN TER/EDIT ORDERABLES Final Result * FL Guidance in OR (12/09/2024 8:24 AM EST) Anatomical Region Laterality Modality X-Ray Angiograph y 12/09/2024 8:24 AM EST Narrative 12/09/2024 2:24 PM EST ? [facility] ?[address] ?[place] [address] ? Fluoroscopy Report ? Signed ? Patient: Fany Radha,Sapna C ?MR#: M ?? [id number] ? : 1960 ?Acct:[id number] ? Age/Sex: 63 / F ?ADM Date: 12/09/24 ? Loc: HO.SSS ? Attending Dr: Jcarlos Gee MD ? Ordering Physician: Jcarlos Gee MD ?? Date of Service: 12/09/24 ?? Procedure(s): FL guidance in OR ?? Accession Number(s): [id number] ? cc: Jcarlos Gee MD; Yi Thompson [...] DD/ 0824 ? TD/TT: 12/09/24 0842 ? Mine Exploration Engineer: ? Procedure Note Lissy, Rocio - 12/09/[address] [address] Fluoroscopy Report Signed Patient: Sapna Herzog CMR#: M [id number] : 9Acct:[id number] Age/Sex: 63 / FADM Date: 12/09/24 Loc: HO.SSS Attending Dr: Jcarlos Gee MD Ordering Physician: Jcarlos Gee MD Date of Service: 12/09/24 Procedure(s): FL guidance in OR Accession Number(s): [id number] cc: Jcarlos Gee MD; Yi Thompson MD [...] 12/09/24 1422 DD/ 0824 TD/TT: 12/09/24 0842 Mine Exploration Engineer: us [facility] External Provider IMG IR PROCEDURES Final Result * (ABNORMAL) Glucose, Whole Blood (12/09/2024 6:16 AM EST) Glucose, Whole Blood 162(H) 60 - 115 mg/dL [facility] Comment:METER #: [id number] 12/09/2024 6:16 AM EST 12/09/2024 6:19 AM EST Generic External Data Provider LAB BLOOD ORDERAB LES Final Result [facility] [address] [place] [phone] * XR CERVICAL SPINE 3V (11/28/2024 3:39 PM EST) Anatomical Region Laterality Modality Abdomen Radiographic Criss ging 11/28/2024 3:39 PM EST Narrative 11/30/2024 3:35 PM EST ? [facility] ?[address] ?[place] [address] ?XRay Report ? Signed ? Patient: Fany Radha,Sapna C ?MR#: M ?? [id number] ? : 1960 ?Acct:[id number] ? Age/Sex: 63 / F ?ADM Date: 11/28/24 ? Loc: HO.XRAY ? Attending Dr: Deepthi Velazquez MD ? Ordering Physician: Deepthi Velazquez MD ?? Date of Service: 11/28/24 ?? Procedure(s): XR cervical spine 3V ?? Accession Number(s): [id number] ? cc: Deepthi Velazquez MD; Yi Thompson [...] DD/ 1539 ? TD/TT: 11/28/24 1557 ? Mine Exploration Engineer: ? Procedure Note Rocio Yuan - 11/30/[address] [address] XRay Report Signed Patient: Sapna Herzog CMR#: M [id number] : 9Acct:[id number] Age/Sex: 63 / FADM Date: 11/28/24 Loc: HO.PAZKUMAR Attending Dr: Deepthi Velazquez MD Ordering Physician: Deepthi Velazquez MD Date of Service: 11/28/24 Procedure(s): XR cervical spine 3V Accession Number(s): [id number] cc: Deepthi Velazquez MD; Yi Thompson MD [...] 11/30/24 1532 DD/ 1539 TD/TT: 11/28/24 1557 Mine Exploration Engineer: [facility] External Provider IMG XR PROCEDURES Final Result * (ABNORMAL) VITAMIN D 25-OH (D2 AND D3) (11/28/2024 3:37 PM EST) Vitamin D, 25-OH, D2 <4 ng/mL [facility] Comment:This test was develo ped and its analytical performancecharacteristics have been determined by [place] It hasnot been cleared or approved by the U.S. Food and DrugAdministration. This assay has been validated pursuantto the CLIA regulations and is used for clinicalpurposes.THIS TEST WAS PERFORMED AT:[employer]/[facility] [place] [address]RUNYBFZANUPAMA LEVI MD,PHD Vitamin D, 25-OH, D3 23 ng/mL [facility] Comment:This test was develo ped and its analytical performancecharacteristics have been determined by [employer] [place], [place]. It hasnot been cleared or approved by the U.S. Food and DrugAdministration. This assay has been validated pursuantto the CLIA regulations and is used for clinicalpurposes. Vitamin D, 25-OH, Total 23(A) 30 - 100 ng/mL [facility] Comment:Vitamin D, 25-Hydrox y reports [...] = 30 ng/mL.For additional information, please refer tohttp://education.CloudShare/faq/TVZ753(This link is being provided for informational/educational purposes only.) 11/28/2024 3:37 PM EST 11/28/2024 3:37 PM EST us Generic External Data Provider LAB BLOOD ORDERAB LES Final Result [facility] [address] [place] [phone] * Vitamin B12 (Cobalamin) and Folate Panel, Serum (11/28/2024 3:37 PM EST) Vitamin B12 295 200 - 900 pg/mL [facility] Comment:NORMAL 200-900 PG/ML INDETERMINATE 160-199 PG/ML DEFICIENT < 160 PG/ML Folate 11.5 > or = 4.0 ng/mL [facility] Comment:Reference Values:> o r = 4.0 ng/mL< 4.0 ng/mL suggests folate deficiency Methotrexate, aminopterin and folinic acid(leucovorin) are chemotherapeutic agents whose molecularstructures are similar to folate; therefore, the Architectfolate assay cannot be used for patients using these drugs. 11/28/2024 3:37 PM EST 11/28/2024 3:37 PM EST Generic External Data Provider LAB BLOOD ORDERAB LES Final Result Performing Organization Address [facility]/ZIP Co de Phone Number [facility] [address] [place] [phone] * TSH with Reflex to Free T4 (11/28/2024 3:37 PM EST) Pathologist [facility] TSH reflex Free T4 2.36 0.32 - 4.0 uIU/mL [facility] 11/28/2024 3:37 PM EST 11/28/2024 3:37 PM EST Generic External Data Provider LAB BLOOD ORDERAB LES Final Result Performing Organization Address [facility] Co de Phone Number [facility] [facility]S [address] [place] [address] [phone] * (ABNORMAL) CBC auto differential (11/28/2024 3:37 PM EST) White Blood Count 8.0 4.8 - 10.8 X10*3/uL [facility] Red Blood Count 4.57 4.20 - 5.50 X10*6/uL [facility] Hemoglobin 10.8(L) 12.0 - 16.0 g/dl [facility] Hematocrit 34.5(L) 37.0 - 47.0 % [facility] Mean Corpuscular Volume 75.5(L) 80.0 - 98.0 fL [facility] Mean Corpuscular Hemoglobin 23.6(L) 27.0 - 33.0 pg [facility] Mean Corpuscular HGB Conc 31.3 31.0 - 35.0 g/dl [facility] Red Cell Distribution Width 15.0 11.0 - 16.0 % [facility] Platelet Count 266 160 - 400 X10*3/uL [facility] Mean Platelet Volume 10.5 9.4 - 12.3 fL [facility] Neutrophils Percent Auto 65.8 45 - 73 % [facility] Imm Gran Pct Auto 0.5(H) 0.0 - 0.4 % [facility] Lymphocytes Percent Auto 23.7 20 - 40 % [facility] Monocytes Percent Auto 6.4 2 - 11 % [facility] Eosinophils Percent Auto 2.5 0 - 4 % [facility] Basophils Percent Auto 1.1 0 - 2 % [facility] NRBC Pct Auto 0.0 0.0 - 0.2 /100WBC [facility] Neutrophils Absolute Auto 5.3 2.0 - 8.3 x10*3/uL [facility] Imm Gran Abs Auto 0.04(H) 0.00 - 0.03 X10*3/uL [facility] Lymphocytes Absolute Auto 1.9 1.2 - 4.9 X10*3/uL [facility] Monocytes Absolute Auto 0.5 0.1 - 1.2 X10*3/uL [facility] Eosinophils Absolute Auto 0.2 0.0 - 0.4 X10*3/uL [facility] Basophils Absolute Auto 0.1 0.0 - 0.2 X10*3/uL [facility] NRBC Abs Auto 0.000 0.0 - 0.012 X10*3/uL [facility] 11/28/2024 3:37 PM EST 11/28/2024 3:37 PM EST us Generic External Data Provider LAB BLOOD ORDERAB LES Final Result [facility] [address] [place] [address] [phone] * Sed Rate by Modified Jarodergren (11/28/2024 3:37 PM EST) Pathologist [facility] Erythrocyte Sedimentation Rate 17 0 - 20 MM/HR [facility] Comment:Patients with polycy themia and many hemoglobin abnormalitiesmay have depressed sed rates whereas patients with anemiamay have elevated sed rates. 11/28/2024 3:37 PM EST 11/28/2024 3:37 PM EST Generic External Data Provider LAB BLOOD ORDERAB LES Final Result Performing Organization Address [facility] Co tx Phone Number [facility] [address] [place] [address] [phone] * T4, Free (11/28/2024 3:37 PM EST) Pathologist [facility] Free T4 (Free Thyroxine) 1.31 0.71 - 1.85 ng/dL [facility] 11/28/2024 3:37 PM EST 11/28/2024 3:37 PM EST Generic External Data Provider LAB BLOOD ORDERAB LES Final Result Performing Organization Address [facility] de Phone Number [facility] [address] [place] [address] [phone] * (ABNORMAL) Comprehensive Metabolic Panel (11/28/2024 3:37 PM EST) Pathologist [facility] Sodium 144 135 - 145 mmol/L [facility] Potassium 4.2 3.3 - 5.1 mmol/L [facility] Chloride 106 96 - 108 mmol/L [facility] Carbon Dioxide 24 22 - 29 mmol/L [facility] Anion Gap 18 12 - 20 [facility] Urea Nitrogen (BUN) 29(H) 9 - 16 mg/dL [facility] Creatinine, Serum 0.76 0.5 - 1.4 mg/dL [facility] Estimated Glomerular Filt Rate >60 [facility] Comment:Chronic Kidney Disea se: Estimated GFR < 60 mL/min/[id number] Kidney Disease: Estimated GFR < 15 mL/min/1.73m2 Glucose 141(H) 60 - 115 mg/dL [facility] Calcium 9.7 8.4 - 10.2 mg/dL [facility] Bilirubin, Total 0.2 0.0 - 1.0 mg/dL [facility] Aspartate Amino Transferase 22 5 - 31 U/L [facility] Alanine Aminotransferase 20 0 - 31 U/L [facility] Total Protein 8.2(H) 6.5 - 8.0 g/dL [facility] Albumin Level 4.5 3.5 - 5.0 g/dL [facility] Alkaline Phosphatase 74 39 - 117 U/L [facility] 11/28/2024 3:37 PM EST 11/28/2024 3:37 PM EST Generic External Data Provider LAB BLOOD ORDERAB LES Final Result [facility] [address] [place] [address] [phone] * Hm Colonoscopy (11/03/2024 6:36 PM EST) Historical Provider HEALTH MAINTENANCE Final Result * (ABNORMAL) POCT HGB A1C (10/28/2024 8:59 AM EST) Hemoglobin A1C 6.8(A) 4.0 - 6.0 % QC Media Lot # [id number] Lot# Expiration Date Blood 10/28/2024 8:59 AM EST [facility] POINT OF CARE TEST ENTER/ EDIT ORDERABLES Final Result * Lipid Panel, Standard (05/16/2024 11:43 AM EDT) Triglycerides 85 <150 mg/dL [facility] Comment:Desirable Triglyceri de: less than 150 mg/dLBorderline High Triglyceride 150-199 mg/dLHigh Triglyceride: 200-499 mg/dLVery High Triglyceride: greater than or equal to 5OO mg/dL Cholesterol 124 <200 mg/dL [facility] Comment:Desirable Cholestero l: less than 200 mg/dLBorderline High Cholesterol: 200-239 mg/dLHigh Cholesterol: greater than 239 mg/dL LDL Cholesterol Calculated 62 <100 mg/dL [facility] Comment:Desirable LDL: less than 100 mg/dLNear Optimal/Above Optimal LDL: 110- 129 mg/dLBorderline High LDL: 130-159 mg/dLHigh LDL: 160-189 mg/dLVery High LDL: greater than or equal to 190 mg/dL HDL Cholesterol 45 >40 mg/dL [facility] Comment:Desirable HDL: great er than 40 mg/dL Note: This HDL assay may give artificially low results in patients with liver disease. Blood Venous blood specimen / Unknown 05/16/2024 11:43 AM EDT 05/16/2024 11:49 AM EDT Yi Cleary MD LAB BLOOD ORDERAB LES Final Result [facility] [address] [place] [address] [phone] * Albumin, Random Urine W/Creatinine (01/12/2024 3:10 PM EST) Creatinine, Urine 31.68 mg/dL [facility] Microalbumin Urine 5.0 mg/L [facility] Microalbum Creatinine Ratio Ur 15.7 <30 ug/mg cr [facility] Comment:Albumin/Creatinine R atio Reference Ranges: Normal: < 30 ug/mg creatinine Microalbuminuria: 30 - 300 ug/mg creatinineClinical Albuminuria: > 300 ug/mg creatinine 01/12/2024 3:10 PM EST 01/12/2024 4:41 PM EST us Yi Cleary MD LAB URINE ORDERAB LES Final Result Performing Organization Address [facility] Co de Phone Number [facility] [address] [place] [address] [phone] * Hepatitis C Antibody with Reflex to HCV, RNA, Quantitative, Real-Time PCR (01/12/2024 8:56 AM EST) Hepatitis C Antibody Nonreactive Nonreactive [facility] Comment:Antibodies to HCV no t detected; does not exclude early acuteHCV infection. Blood Venous blood specimen / Unknown 01/12/2024 8:56 AM EST 01/12/2024 11:12 AM EST Yi Cleary MD LAB BLOOD ORDERAB LES Final Result Performing Organization Address [facility] Co de Phone Number [facility] [address] [place] [address] [phone] * THINPREP PAP (10/25/2020 10:02 AM [...] historic and ?? current clinical information. ?? Clinical Engineering Director : SEE COMMENT [facility] Comment: [place], CT(ASCP) CT screening location: [address] ??[phone] Interpretation/R esult: Negative for intraepithelial lesion or malignancy. [facility] LMP: NONE [facility] Prev. BX: NONE [facility] Prev. PAP: NONE [facility] SOURCE: None given [facility] Statement Of Adequacy: SEE COMMENT [facility] Comment: Satisfactory for evaluation. Endocervical/transformation zone component present. 10/25/2020 10:0 2 AM EST Peter CADET LAB PATHOLOGY ORDERABLES Final Result Performing Organization Address [facility] Phone Number [facility] [address] * HPV mRNA E6/E7 (10/25/2020 10:02 AM EST) HPV nRNA E6/E7 Not Detected Not Detected [facility] Comment: This test was performed using the APTIMA HPV Assay ([facility] This assay detects E6/E7 viral messenger RNA (mRNA) from 14 high-risk HPV types (16,18,31,33,35,39,45,51,52,56,58,59,66,68). ?? The analytical performance characteristics of this assay have been determined by [employer]. The modifications have not been cleared or approved by the FDA. This assay has been validated pursuant to the CLIA regulations and is used for clinical purposes. 10/25/2020 10:0 2 AM EST Peter CADET LAB BLOOD ORDERABLES Cammy l Result Performing Organization Address [facility] Phone Number [facility] [address] from Last 3 Months or Most Recently Relevant to Health Maintenance Insurance [employer] Care Teams Application Integration Architect Relationship Specialty Start Date End Date Yi Thompson MD [address] [place] [address] [phone] PCP - General Internal Medicine 08/20/23
--- OUTSIDE RECORDS SUMMARY | 2025-02-22 13:20 | XMS_ITS | Encounter Summary ---
Author Organization [facility] [facility] Address [address] [place] [phone] Care Team Providers Care Go Cart Mechanic Name Role Phone Juliet Bird Primary Care Provider [phone] Yi Thompson MD Primary Care Pro vider Reason for Visit * Reason Comments Med Refill Encounter Details Date Type Department Care Team (Late Contact Info) Description 06/28/2023 Refill [facility] [address] [place] [phone] Juliet Bird FNP [address] [place] [address] Dept [place] [address] Social History Tobacco Use Types Packs/Day Years [...] Description 03/31/2025 9:30 AM EDT Medication Management [facility] [address] [place] [address] [phone] 04/06/2025 11:15 AM EDT Office Visit [facility] [address] [place] [address] [phone] Yi Thompson MD [address] [place] [address] documented as of this encounter Visit Diagnoses Not on filedocumented in this encounter Care Teams Go Cart Mechanic Relationship Specialty Start Date End Date Juliet Bird FNP PCP - General Family Medicine 01/22/23 08/19/23 Yi Thompson MD [address] [place] [phone] PCP - General Internal Medicine 08/20/23 documented as of this encounter
--- OUTSIDE RECORDS SUMMARY | 2025-02-22 13:20 | XMS_ITS | Encounter Summary ---
Author Organization [employer] Address [address] [place] [phone] Care Team Providers Care Fluid Jet Cutter Operator Name Role Phone Yi Thompson MD Primary Care Pro vider Reason for Visit * Reason Comments Med Refill Encounter Details Date Type Department Care Team ([facility] st Contact Info) Description 09/15/2023 Refill [facility] [address] [place] [phone] Juliet Bird FNP [address] [place] [address] Dept [place] [address] Primary hypertension; Type 2 diabetes mellitus without complication, without long-term current use of insulin ([facility]) Social History Tobacco [...] Description 03/31/2025 9:30 AM EDT Medication Management [facility] [address] [place] [phone] 04/06/2025 11:15 AM EDT Office Visit [address] [phone] Yi Thompson MD [address] [place] [phone] documented as of this encounter Visit Diagnoses Diagnosis Primary hypertension Unspecified essential hypertension Type 2 diabetes mellitus without complication, without long-term current use of insulin ([facility]) documented in this encounter Care Teams Fluid Jet Cutter Operator Relationship Specialty Start Date End Date Yi Thompson MD [address] [place] [phone] PCP - General Internal Medicine 08/20/23 documented as of this encounter
== END 2025-02-22 11:59 | disposition home or self-care (01) ==
LOC: HO.PMC 11:15
PROVIDERS: PCP Student in an Organized Health Care Education/Training Program; Visit Provider Anesthesiology
DX: M17.0 Bilateral primary osteoarthritis of knee (principal)
CPT/HCPCS: 99213

== ENCOUNTER 2025-03-02 09:16 | Outpatient (AMB) | payer OTHER, SELFPAY ==
--- NOTE | 2025-03-02 09:18 | MHC.OFFVIS ---
Vital Signs 03/02/25 09:20 Height 5 ft 4 in Weight 156 lb 4 oz BMI 26.8 BP 128/78 Blood Pressure Location Lt brachial Position Sitting Pulse 100 Pulse Source Pulse Oximeter Pulse Oximetry (%) 98 Oxygen Delivery Method Room Air Intake Visit Reasons: 3mon follow-up Intake Note: Patient presents 3 month follow up for migraines Labs and c-spine x-ray done 11/28/24. Patient states still getting frequent 30/30 migraine in forehead and back of head. Senior Research Executive Required: Yes Senior Research Executive Services: Senior Research Executive Present Senior Research Executive Name: Porsche [id number] Information Interpreted: non-clinical & clinical Allergies Penicillins [PENICILLINS] Allergy (Intermediate, Verified 03/02/25 09:32) HIVES HPI Comments Details: 64y/o female comes for evaluation of headaches and memory issues. A medical dosimetrist, Starla on Ipad helps with history ID#[id number] She is a former tobacco smoker, with hx of thymectomy, thyroidectomy, and removal of a spinal mass, and failure of spinal cord stimulator. 02/10/2025 ED visit for Superficial Basilic Thrombophlebitis, no DVT on US. She reports headaches for about 30 years which have increased in frequency, the side of head [id number] and Levator scapulae at the base of her neck r. side are painful on lateral rotation and extension of the head. When she was younger her headaches were accompanied with bouts of emesis, photophobia and phonophobia about 3-4 times a week. She takes Amitriptyline 10mg, and she is able to sleep through the night. When she wakes up the next day around 11am the headaches come back then she rubs Icy Hot on her neck, takes 600mg of Tylenol, and lies down. She says she is unable to complete her chores due to the pain as it throbs in the forehead and between the eyes (glabella). She says the discomfort is mild at 6 then increases in intensity to 9/10. She takes Sumatriptan for episodic headaches. As she got older the headaches decreased but for past 3-4 months she has constant occipital headache, that radiates to frontal and retro-orbital region along with neck pain when she moves her head back it cracks and moves a-lot with photophobia and phonophobia, blurry vision and she can't focus on objects, she denies n/v, /dizziness and or vertigo. she takes tylenol everyday for her arthritis so this also helps to alleviate the pain from her headaches. 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 She has inflammation in lower back, legs and knees. She is able to complete all her ADLs independently and cares for her special needs grandson who is 16 years old. She bathes him and reports stm difficulties she forgets conversations, misplaces items around the house and has left the stove on in the past. Her often over sees her tasks and her LTM is good. [facility] Medical History Headache Cognitive disorder Cervical dystonia Palpitations Non-cardiac chest pain Pelvic pain Leg pain Bladder pain Lower abdominal pain Gross hematuria Toe pain Right knee pain Effusion, right knee Dysuria Pelvic pain in female Hematuria Mass of spine Hematuria Type 2 diabetes mellitus with polyneuropathy DM2 (diabetes mellitus, type 2) Nail deformity Paronychia Failure of spinal cord stimulator Thymoma Pulmonary nodules Thyroid cancer Blood in urine Constipation by delayed colonic transit Tubular adenoma of colon Gastritis Hypertension Dyslipidemia Post-surgical hypothyroidism Primary thyroid cancer Vitamin D deficiency Surgical History History of thymectomy History of back surgery Hx of colonoscopy Hx of thyroidectomy Hx of hernia repair Hx of section Hx of hysterectomy History of esophagogastroduodenoscopy (EGD) Family History Father Stroke Heart attack Mother Diabetes mellitus Family/Other Family history of cancer Sister Stomach cancer Family/Other Thyroid cancer Social History Household Members: Spouse, Children and Other Are you a primary laboratory animal care veterinarian to a significant other at home: No Do you presently have visiting nurse or other home services: No Alcohol intake: unknown Patient Tobacco Use Status: Former Tobacco user Tobacco use type: Cigarette Second Hand Smoke Exposure: No Sexual orientation: Straight/Heterosexual Gender identity: Female Physical Exam Vital Signs: Last Vital Signs Pulse 100 03/02/25 09:20 BP 128/78 03/02/25 09:20 Pulse Ox 98 03/02/25 09:20 Oxygen Delivery Method Room Air 03/02/25 09:20 BMI result Body Mass Index 26.8 Const General: cooperative, healthy appearing and comfortable Nutritional Appearance: average body habitus Orientation/consciousness: patient oriented x3 Eyes Pupils: Equal, round and reactive pupils present Neuro Other: head tremors Right laterocollis Tenderness in Right levator and splenius General: patient oriented x3, gait normal, tone normal, moves all extremities and no focal motor deficits Cranial nerves: Yes Facial sensation intact/muscles of mastication intact, Yes Equal, round and reactive pupils present, Yes Bilaterally intact EOM present, Yes Nystagmus not present, Yes Normal facial strength present, Yes Midline tongue present and Yes Ability to bilaterally elevate shoulders present Cognition (Neuro): normal cognition Gait exam (Neuro): Normal gait present Motor exam (neuro): 5/5 motor strength present throughout and Normal motor muscle tone present throughout Deep tendon reflexes (DTR's): Right triceps reflex intensity grade: 2+, Left triceps reflex intensity grade: 2+, Rt Biceps (C5, C6): 2+, Left biceps reflex intensity grade: 2+, Right brachioradialis reflex intensity grade: 2+, Left brachioradialis reflex intensity grade: 2+, Right patellar reflex intensity grade: 2+ and Left patellar reflex intensity grade: 2+ Coordination: [id number] test normal Results Reviewed Results Reviewed: Xray Humerus XR/XR humerus LT IMPRESSION: Unremarkable examination of the left humerus. CT IMPRESSION: 1. Stable, likely benign, left lower lobe pulmonary lesion. 2. Hepatic steatosis. ED note 02/10 Superficial Basilic Thrombophlebitis, no DVT. Assessment & Plan Assessment & Plan (1) Cervical dystonia: Code(s): G24.3 - Spasmodic torticollis Category: Medical (2) Cognitive disorder: Code(s): F09 - Unspecified mental disorder due to known physiological condition Category: Medical (3) Headache: Comment: chronic - cervicogenic with migraine features, H/O migraines Code(s): R51.9 - Headache, unspecified Category: Medical Qualifiers: Headache type: cervicogenic headache Qualified Code(s): G44.86 - Cervicogenic headache (4) Anemia: Code(s): D64.9 - Anemia, unspecified Category: Medical Qualifiers: Anemia type: iron deficiency Iron deficiency anemia type: other iron deficiency Qualified Code(s): D50.8 - Other iron deficiency anemias (5) Hx of migraines: Code(s): Z86.69 - Personal history of other diseases of the nervous system and sense organs Category: Medical (6) Spasmodic torticollis: Comment: Head feels like it is a bobble head on a stick. Code(s): G24.3 - Spasmodic torticollis Category: Medical (7) Fatigue due to sleep pattern disturbance: Code(s): R53.83 - Other fatigue; G47.9 - Sleep disorder, unspecified Category: Medical Plan Migraines: Prior auth for botox and schedule for injection to neck muscles. This will help her neck pain , dystonia and headaches Headaches Continue amitriptyline 10 mg qhs Headaches Cervicalgia Sumatriptan 50mg PO take with the onset of headaches may take one more Dystonia? Spasmodic Torticollis? Labs were normal with the exception of anemia and low vitamin D Chronic fatigue HST, sleep hygiene is provided. F/u in 3 months or sooner for Botox as needed. Orders: Orders RT home sleep study 03/02/25 G47.19 - Other hypersomnia Medications: New ferrous sulfate 325 mg PO DAILY 30 tabs 3RF anemia MDD 325mg D64.9 - Anemia, unspecified, G44.86 - Cervicogenic headache sumatriptan succinate take 1 tab at onset of headache; if no relief may repeat 1 tab after at least 2 hrs; max = 4 tabs/24 hr orally PRN; 14 tabs 0RF migraine headache MDD 100mg Z86.69 - Personal history of other diseases of the nervous system and sense organs Refilled cholecalciferol (vitamin D3) 62.5 mcg PO QAM 90 caps 2RF Patient Instructions: Sleep Hygiene provided: set a scheduled bedtime and wake time to help regulate the circadian rhythm and balance the release of pituitary hormones. Sleep in a dark room, temperatures below 68 degrees, and no devices n bed. Limit caffeinated products 6 hours prior to bed, and limit fluids 2-4 hours prior to bed. Gentle night yoga, diffusing essential oils, and playing soft music can be relaxing. Coding Level of Care Code Est Pt Level 4 (40329) Complex EM visit Add On G2211 Diagnoses Cervical dystonia G24.3 Cognitive disorder F09 Cervicogenic headache G44.86 Headache type: cervicogenic headache Other iron deficiency anemia D50.8 Anemia type: iron deficiency Iron deficiency anemia type: other iron deficiency Hx of migraines Z86.69 Spasmodic torticollis G24.3 Fatigue due to sleep pattern disturbance R53.83; G47.9 Time Spent (min) 40
[2025-03-02 09:20] VITALS: BP 128/78; PULSE 100; O2SAT 98; BMI 26.8
--- OUTSIDE RECORDS SUMMARY | 2025-03-02 10:27 | XMS_ITS | Data Portability ---
Author Organization [place] - [facility], Allergy Address [address] [address] Assessment No assessment recorded. Plan of Treatment [...] contr ast No observ ation record ed. [facility] ([facility]) [address] [address], [place], [address], 07/12/2024 17:28:21 07/12/20 24 03/07/2024 CT, neck, soft tissu e, w/ contr ast No observ ation record ed. [email or web address] Not Available 06/17 14:31:41 Result Notes None [...] Available [employer] 4 03:27:19 Oropharyn geal dysphagia [id number] Active 2023 CHANTEL MEYER MD 100 [facility],[address] [address], [facility] [place], [address] , [facility] - [facility] 4 14:16:46 Acquired vocal cord palsy 136027184 Active 2023 CHANTEL MEYER MD 100 [facility],[address] [address], [place], [address] , [facility] - [facility] 4 14:27:26 Problem Notes None recorded. Procedures Surgical History Date Name Laterality Status Provider Name and Address Organization Details Recorded Time 07/12/2024 FFL_RE completed CHANTEL MEYER MD 100 [facility],[address] [address], [place], [address], [facility] 07/12/2024 14:20:56 Imaging Results Imaging Date Name Status LastModified by Organiz ation Details LastModified Time 03/07/2024 CT, neck, soft tissue, w/ contrast completed [facility] ([facility]) [address], [place], [address], 07/12/2024 17:28:21 03/07/2024 CT, neck, soft tissue, w/ contrast completed [email or web address] Information not available 07/12/2024 14:31:41 Procedure Notes None recorded. Medical Equipment None Reported. Allergies Allergen ID Allergen Name Allergen Category Reaction Reaction Severity Criticality Documentation Date Start Date Code Code System Note Provider Name and Address Organization Details Recorded Time 20014 Product containin g penicilli n (product) medicatio n other Not available Not available 03/29/2024 13644 8001 SNOMED React ion: unkno wn, unspe cifie d;; Not Available [employer] 01:03:20 Medications Name Sig Start Date Stop Date Status Note LastModified by Organization Details LastModified Time medbox status USE DIRECTED active Not Available Not Available No t Available freestyle lite test strips strp active Not Available Not Available Not Available losartan 50 mg tablet active Medicati on ID: 92894 Br and Name: losartan Send Method: E-Prescr [...] 40 mg tablet active Medicati on ID: 15630 Br and Name: lovastat in Send Method: E-Prescr ibed Sub s Allowed: subs OK Medic ationGen ericName : lovastat in Not Available Not Available Not Available amlodipin e 5 mg tablet active Medicati on ID: 31000 Br and Name: amlodipi ne Send Method: [...] Not Available Not Available No t Available Parrish Thyroid 15 mg tablet active Medicati on ID: 21665 Br and Name: Parrish Thyroid Send Method: E-Prescr ibed Sub s Allowed: subs OK Medic ationGen ericName : Parrish Thyroid Not Available Not Available Not Available amitripty line 25 mg tablet active Medicati on ID: 32785 Br and Name: amitript yline Se nd Method: E-Prescr ibed Sub s Allowed: subs OK Medic ationGen ericName : amitript yline Not Available Not Available Not Available Protonix 40 mg intraveno us solution active Medicati on ID: 51217 Br and Name: Protonix Send Method: E-Prescr [...] 150 mg capsule [place]ati [place] ID: 18571 Br and Name: ranitidi ne HCl Send Method: E-Prescr ibed Sub s Allowed: subs OK Medic ationGen ericName : ranitidi ne HCl Not Available Not Available Not Available hydrochlo rothiazid e 25 mg tablet [place] Medicati [place] ID: 08131 Br and Name: hydrochl orothiaz ro Send [...] 17 gram/dose oral powder USE DIRECTED BY [facility] active Not Available Not Available No [...] release 24hr (osmotic) active Medicati on ID: 50996 Br and Name: meturbano forrest Send Method: [...] tablet,de layed release [place] ID: 65146 Du ration Value: 30 Brand Name: omeprazo le Send Method: E-Prescr ibed Sub s Allowed: subs OK Speci al Instruct ion: Take 1 tablet by mouth every day before a meal [facility] me: omeprazo le Not Available [...] Updated DateTime 07/12/2024 165.1 cm 27.3 kg/m2 85430.15 g [place] - [facility] 07/12/2024 14:07:22 Social History None recorded. Functional Status None recorded. Mental Status None recorded. Family History Nothing Reported. Medical History No medical history recorded. Gynecological HistoryNo gynecological history recorded. Obstetrics History GPAL:G 0 P 0 0 0 0 Past Encounters Encounter ID Performer Location Encounter Start Date Encounter Closed Date Diagnosis/Indication Diagnosis SNOMED-CT Code Diagnosis ICD10 Code Diagnosis Note [id number] CHANTEL MEYER MD [facility] [address] [address] 07/12/2024 13:49:31 07/12/2024 16:53:30 Oropharyngeal dysphagia [id number] R13.12 Likely due to esophageal dysmotilit y. VC paralysis is a factor but doesn't explain her dysphagia to solids. I recommend she discuss GI referral with her PCP. I would be glad to see her as needed. I personally reviewed her imaging reports. Acquired v ocal cord palsy [id number] J38.00 Likely from initial surgery 14 years [...] Name 07/12/2024 1 [employer] [place] [id number] Giuseppe Rodriguez [id number] Sapna Garcia Notes Date Note Type Note Provider Name and Address Organization Details Recorded Time 07/12/2024 text/html She has a histor y of thyroid cancer. She had thyroidectomy in [place] 14 years ago. She had repeat surgery here 5-6 years ago. She reports her swallowing has been a problem since her first surgery. She had a swallow study at [facility]. She feels like food gets stuck. Has occasional choking with liquids. She has never smoked. She denies throat pain and SOB. I reviewed an Upper GI series which showed esophageal dysmotility. I also reviewed her CT neck with 02/2024 which showed possible right vocal cord paralysis. contrast CHANTEL MEYER MD [address] [place] [address], [place], [address], [facility] - [facility] 07/12/2024 14:28:36 OBGyn Episode No OBEpisode recorded.
== END 2025-03-02 10:33 | disposition home or self-care (01) ==
LOC: HO.HSMS 09:16
PROVIDERS: PCP Student in an Organized Health Care Education/Training Program; Visit Provider Physician Assistant Medical
DX: G24.3 Spasmodic torticollis (principal); R41.89 Other symptoms and signs involving cognitive functions and awareness; G44.86 Cervicogenic headache; D50.8 Other iron deficiency anemias; Z86.69 Personal history of other diseases of the nervous system and sense organs; R53.83 Other fatigue; G47.9 Sleep disorder, unspecified
CPT/HCPCS: 99214

== ENCOUNTER → 2025-03-02 09:16 | Outpatient (BNVA) | payer OTHER, SELFPAY | PROVIDERS: PCP Student in an Organized Health Care Education/Training Program; Visit Provider Physician Assistant Medical ==

== ENCOUNTER 2025-03-28 09:55 | Outpatient (AMB) | payer OTHER, SELFPAY ==
--- NOTE | 2025-03-28 09:56 | MHC.OFFVIS ---
Intake Visit Reasons: 5w follow up Intake Note: Patient is present via telehealth for a 5 week follow up Urology Med:none Antibiotic Allergy: Penicillins Blood Thinner:none Nuclear Medicine Technologist Required: Yes Nuclear Medicine Technologist Language: Airline Attendant Name: [id number]--[id number] Information Interpreted: non-clinical & clinical Allergies Penicillins (PENICILLINS) Allergy (Intermediate, Verified 05/17/25 11:32) HIVES HPI Comments Details: 03/28/25--Sapna is a 64-year-old female presenting with chronic interstitial cystitis and related lower urinary tract symptoms, including bladder urgency and pain. Her management includes gabapentin 300 mg daily for unrelated back pain, which influences her tolerance for additional medication due to cumulative nighttime sedation effects. Continue gabapentin. 01/30/25--Sapna is a 64-year-old female presenting with chronic interstitial cystitis and related lower urinary tract symptoms, including bladder urgency and pain. Last seen in December 2024, she had been managing her condition effectively, having stopped hydroxyzine. Despite this, her symptoms?particularly bladder pain?have resurfaced. She self-initiated cranberry gummies two weeks ago but noticed an aggravation of bladder discomfort. Her management includes gabapentin 300 mg daily for unrelated back pain, which influences her tolerance for additional medication due to cumulative nighttime sedation effects. The recent symptom recurrence demands reevaluation and adjustment of her management plan. Urinary Symptoms Review - Bladder urgency and pain - Resumed bladder pain two weeks ago, likely aggravated by cranberry gummies - Former use of hydroxyzine, causing sedation concerns in concurrent nighttime medication regimen 12/22/24--Sapna is a 64-year-old female followed for interstitial cystitis and lower urinary tract symptoms of urgency and bladder pain. She states she is doing much better she has discontinued the hydroxyzine. She is followed by pain management for back pain and is on gabapentin 300 mg daily that she takes before bed. I will have her follow-up in 6 months she will call for any issues prior. 08/22/24--Sapna is being followed for recurrent UTIs, interstitial cystitis, foreign language interpreter utilized. She is using the oxybutynin 10 mg daily. She is here with complaints of increased pain with urination. Urinalysis is nitrite positive. The patient states that she has not been using any other antibiotics at this time. I will empirically place her on Cipro 500 mg twice a day pending urine culture. 08/01/24--Sapna is being followed for recurrent UTIs, interstitial cystitis and related symptoms of pelvic pain and urgency. She was last treated for UTI symptoms with antibiotics in June, she denies dysuria but complains of vaginal itching. She is taking oxybutynin 10 mg daily. Nitrofurantoin 50 mg post sexual activity. I Will send diflucan to pharm. 04/15/2024--Sapna is being followed for recurrent UTIs, interstitial cystitis and related symptoms of pelvic pain and urgency. She called to be seen today because of pelvic pain. She states for about 8 days she has been off and on having pain with urination. She states that she forgot to take the prophylactic antibiotics with intercourse. Urinalysis evaluated is nitrite positive. I will send urine for culture. I will empirically start Macrobid 100 mg twice a day for 7 days pending urine culture. In review of her chart the patient had a CT scan abdomen pelvis with contrast ordered by another provider for complaints of abdominal pain. I have reviewed the results kidneys duplicated right renal system no hydronephrosis no renal calculi. Will continue low dose macrobid post intercourse, tylenol and/or OTC NSAID prn, Cont Uribel TID, continue oxybutynin 10 mg qhs. 02/01/24-Sapna is a 62-year-old female who presents today to the office for a follow-up. Sapna is followed due to bladder pain syndrome. She has been treated with bladder installations heparin lidocaine and Solu-Medrol. The patient is a [place] speaking female. Certified foreign language interpreter was present during the visit. PMH includes --hypertension, diabetes, h/o thyroid cancer, followed by endocrine. I had previously discussed use of pyridium prior to intercourse and low dose macrobid post intercourse, tylenol and/or OTC NSAID prn. She was prescribed uribel. The patient states the her bladder pain is much better, but not gone. 03/17/23--Out patient cystoscopy bladder biopsy-- bladder findings, erythematous flattened changes, pathology chronic cystitis with muscularis propria present. 04/23/22-- urine cytology- negative for malignant cells [facility] Medical History Headache Cognitive disorder Cervical dystonia Palpitations Non-cardiac chest pain Pelvic pain Leg pain Bladder pain Lower abdominal pain Gross hematuria Toe pain Right knee pain Effusion, right knee Dysuria Pelvic pain in female Hematuria Mass of spine Hematuria Type 2 diabetes mellitus with polyneuropathy DM2 (diabetes mellitus, type 2) Nail deformity Paronychia Failure of spinal cord stimulator Thymoma Pulmonary nodules Thyroid cancer Blood in urine Constipation by delayed colonic transit Tubular adenoma of colon Gastritis Hypertension Dyslipidemia Post-surgical hypothyroidism Primary thyroid cancer Vitamin D deficiency Surgical History History of thymectomy History of back surgery Hx of colonoscopy Hx of thyroidectomy Hx of hernia repair Hx of section Hx of hysterectomy History of esophagogastroduodenoscopy (EGD) Family History Father Stroke Heart attack Mother Diabetes mellitus Family/Other Family history of cancer Sister Stomach cancer Family/Other Thyroid cancer Social History Household Members: Spouse, Children and Other Are you a primary child care teacher to a significant other at home: No Do you presently have visiting nurse or other home services: No Alcohol intake: unknown Patient Tobacco Use Status: Former Tobacco user Tobacco use type: Cigarette Second Hand Smoke Exposure: No Sexual orientation: Straight/Heterosexual Gender identity: Female Review of Systems Const All systems reviewed & are unremarkable except as noted in HPI and below Reports no additional complaints Eyes Reports no additional complaints ENT Reports no additional complaints Card Reports no additional complaints Resp Reports no additional complaints GI Reports no additional complaints Reports as per HPI Musc Reports no additional complaints Skin/Breast Reports system reviewed and no additional complaints, except as documented Neuro Reports no additional complaints Psych Reports no additional complaints Endo Reports no additional complaints Je/Lymph Reports no additional complaints Aller/Immun Reports no additional complaints Telehealth Telehealth Telehealth Platform: Telephone Location of provider rendering services: practice address Location of patient: address on file Patient Identification confirmed using: Name, : Yes Telehealth method: voice only Patient verbally consented to treatment: Yes Patient verbally consented to billing insurance company: Yes Patient informed of any privacy concerns related to visit: Yes Minutes spent on Phone/Video with Pt.: 13 Assessment & Plan Assessment & Plan (1) Chronic cystitis: Code(s): N30.20 - Other chronic cystitis without hematuria Category: Medical (2) Bladder pain: Code(s): R39.89 - Other symptoms and signs involving the genitourinary system Category: Medical (3) Pelvic pain: Code(s): R10.2 - Pelvic and perineal pain Category: Medical (4) Dyspareunia in female: Code(s): N94.10 - Unspecified dyspareunia Category: Medical (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 fu in 6 months Patient Instructions: The patient had an opportunity to ask questions regarding treatment plan. The patient expressed understanding and agreement with the above treatment plan. The patient is aware they should contact our office by phone for worsening of their current condition or the appearance of new symptoms. Compliance is encouraged with any medications and followup testing that is ordered. It is a privilege to be allowed the opportunity to participate in the urologic care of your patient. If you have any questions or concerns regarding treatment for the above conditions please do not hesitate to contact me. The office telephone contact is [phone]. This note is constructed in part using voice recognition software. While every effort has been made to ensure accuracy dean of boys errors may have been included. Yours sincerely, Analy Campos MD Coding Level of Care Code Tele Est Pt Level 3 (86389) Diagnoses Chronic cystitis N30.20 Bladder pain R39.89 Pelvic pain R10.2 Dyspareunia in female N94.10 Duplex kidney Q63.8
--- OUTSIDE RECORDS SUMMARY | 2025-03-28 10:46 | XMS_ITS | Encounter Summary ---
Author Organization [email or web address] Address [address] [place] [address] Care Team Providers Care Forward Air Controller/Air Officer Name Role Phone Yi Thompson MD Primary Care Pro vider Reason for Visit * Reason Comments Med Refill Encounter Details Date Type Department Care Team ([facility] Contact Info) Description 05/20/2024 Refill [facility] [address] [place] [address] Name, MD Ronny [address] [place] [address] Social History Tobacco Use Types Packs/Day Years [...] Care Team (Late st Contact Info) Description 04/06/2025 11:15 AM EDT Office Visit [address] [address] Yi Thompson MD [address] [place] [phone] 04/07/2025 10:00 AM EDT Medication Management [address] [address] documented as of this encounter Goals Goal [...] documented as of this encounter Care Teams Forward Air Controller/Air Officer Relationship Specialty Start Date End Date Yi Thompson MD [address] [place] [id number] PCP - General Internal Medicine 08/20/23 documented as of this encounter
--- OUTSIDE RECORDS SUMMARY | 2025-03-28 10:46 | XMS_ITS | Encounter Summary ---
Author Organization [employer] Address [address] [place] [address] Care Team Providers Care Pipe Line Maintenance Supervisor Name Role Phone Yi Thompson MD Primary Care Pro vider Reason for Visit * Reason Comments Med Change Request Encounter Details Date Type Department Care Team ([facility] Contact Info) Description 11/08/2023 Refill [facility] [address] [place] [address] [facility] [address] [place] [address] Viral upper respiratory illness Social History Tobacco [...] Description 04/06/2025 11:15 AM EDT Office Visit [facility] [address] [place] [address] Yi Thompson MD [address] [place] [address] 04/07/2025 10:00 AM EDT Medication Management [facility] [address] [place] [phone] documented as of this encounter Visit Diagnoses Diagnosis Viral upper respiratory illness documented in this encounter Care Teams Pipe Line Maintenance Supervisor Relationship Specialty Start Date End Date Yi Thompson MD [address] [place] [address] PCP - General Internal Medicine 08/20/23 documented as of this encounter
--- OUTSIDE RECORDS SUMMARY | 2025-03-28 10:46 | XMS_ITS | Encounter Summary ---
Author Organization [employer] Address [address] [place] [address] Care Team Providers Care Merchandise Flow Associate Name Role Phone Yi Thompson MD Primary Care Pro vider Reason for Visit * Reason Comments Med Refill Encounter Details Date Type Department Care Team ([facility] st Contact Info) Description 06/02/2024 Refill [facility] [address] [place] [address] Yi Thompson MD [address] [place] [address] Social History Tobacco Use Types Packs/Day Years [...] Description 04/06/2025 11:15 AM EDT Office Visit [address] [address] Yi Thompson MD [address] [place] [address] 04/07/2025 10:00 AM EDT Medication Management [address] [address] documented as of this encounter Goals Goal [...] documented as of this encounter Care Teams Merchandise Flow Associate Relationship Specialty Start Date End Date Yi Thompson MD [address] [place] [address] PCP - General Internal Medicine 08/20/23 documented as of this encounter
--- OUTSIDE RECORDS SUMMARY | 2025-03-28 10:46 | XMS_ITS | Data Portability ---
Author Organization [place] - [facility], Allergy Address [address] [address] Assessment No assessment recorded. Plan of Treatment [...] contr ast No observ ation record ed. [facility] Radiology ([facility]) [address] [address], [place], [address], 07/12/2024 17:28:21 07/12/20 24 03/07/2024 CT, neck, soft tissu e, w/ contr ast No observ ation record ed. [email or web address] Not Available 06/17 14:31:41 Result Notes None [...] Available [employer] 4 03:27:19 Oropharyn geal dysphagia 70451294 Active 2023 CHANTEL MEYER MD [address] [facility],[address] [address], [facility] [place], [address] , [facility] - [facility] 4 14:16:46 Acquired vocal cord palsy 475623350 Active 2023 CHANTEL MEYER MD 100 [facility],[address] [place] [address], [place], [address] , [facility] - [facility] 4 14:27:26 Problem Notes None recorded. Procedures Surgical History Date Name Laterality Status Provider Name and Address Organization Details Recorded Time 07/12/2024 FFL_RE completed CHANTEL MEYER MD [address] [facility],[address] [address], [place], [address], [facility] 07/12/2024 14:20:56 Imaging Results Imaging Date Name Status LastModified by Organiz ation Details LastModified Time 03/07/2024 CT, neck, soft tissue, w/ contrast completed [facility] Radiology ([facility]) [address], [place], [address], 07/12/2024 17:28:21 03/07/2024 CT, neck, soft tissue, w/ contrast completed [email or web address] Information not available 07/12/2024 14:31:41 Procedure Notes None recorded. Medical Equipment None Reported. Allergies Allergen ID Allergen Name Allergen Category Reaction Reaction Severity Criticality Documentation Date Start Date Code Code System Note Provider Name and Address Organization Details Recorded Time 30156 Product containin g penicilli n (product) medicatio n other Not available Not available 03/29/2024 79826 8001 SNOMED React ion: unkno wn, unspe cifie d;; Not Available [employer] 01:03:20 Medications Name Sig Start Date Stop Date Status Note LastModified by Organization Details LastModified Time medbox status USE DIRECTED active Not Available Not Available No t Available freestyle lite test strips strp active Not Available Not Available Not Available losartan 50 mg tablet active Medicati on ID: 09948 Br and Name: losartan Send Method: E-Prescr [...] 40 mg tablet active Medicati on ID: 92952 Br and Name: lovastat in Send Method: E-Prescr ibed Sub s Allowed: subs OK Medic ationGen ericName : lovastat in Not Available Not Available Not Available amlodipin e 5 mg tablet active Medicati on ID: 96349 Br and Name: amlodipi ne Send Method: [...] Not Available Not Available No t Available [place] Thyroid 15 mg tablet active Medicati on ID: 29060 Br and Name: [place] Thyroid Send Method: E-Prescr ibed Sub s Allowed: subs OK Medic ationGen ericName : [place] Thyroid Not Available Not Available Not Available amitripty line 25 mg tablet active Medicati on ID: 31662 Br and Name: amitript yline Se nd Method: E-Prescr ibed Sub s Allowed: subs OK Medic ationGen ericName : amitript yline Not Available Not Available Not Available Protonix 40 mg intraveno us solution active Medicati on ID: 30742 Br and Name: Protonix Send Method: E-Prescr [...] 150 mg capsule active Medicati on ID: 35831 Br and Name: ranitidi ne HCl Send Method: E-Prescr ibed Sub s Allowed: subs OK Medic ationGen ericName : ranitidi ne HCl Not Available Not Available Not Available hydrochlo rothiazid e 25 mg tablet active Medicati on ID: 70939 Br and Name: hydrochl orothiaz ro Send [...] 17 gram/dose oral powder USE DIRECTED BY [facility] active Not Available Not Available No [...] release 24hr (osmotic) active Medicati on ID: 53290 Br and Name: meturbano forrest Send Method: [...] tablet,de layed release [place] Medicati on ID: 03591 Du ration Value: 30 Brand Name: omeprazo le Send Method: E-Prescr ibed Sub s Allowed: subs OK Speci al Instruct ion: Take 1 tablet by mouth every day before a meal [facility] me: omeprazo le Not Available [...] Updated DateTime 07/12/2024 165.1 cm 27.3 kg/m2 30422.15 g [place] - [facility] 07/12/2024 14:07:22 Social History None recorded. Functional Status None recorded. Mental Status None recorded. Family History Nothing Reported. Medical History No medical history recorded. Gynecological HistoryNo gynecological history recorded. Obstetrics History GPAL:G 0 P 0 0 0 0 Past Encounters Encounter ID Performer Location Encounter Start Date Encounter Closed Date Diagnosis/Indication Diagnosis SNOMED-CT Code Diagnosis ICD10 Code Diagnosis Note [id number] CHANTEL MEYER MD [facility] [address] [address] 07/12/2024 13:49:31 07/12/2024 16:53:30 Oropharyngeal dysphagia 14247768 R13.12 Likely due to esophageal dysmotilit y. VC paralysis is a factor but doesn't explain her dysphagia to solids. I recommend she discuss GI referral with her PCP. I would be glad to see her as needed. I personally reviewed her imaging reports. Acquired v ocal cord palsy [id number] J38.00 Likely from initial surgery 14 years [...] Recorded Advance Directives Directive None Recorded Payers Insurance Date Sequence Insurance Name Policy Number Policy Fung Covered Member ID Fung Member ID Guarantor Name 07/12/2024 1 [employer] [place] [facility] [id number] Giuseppe Rodriguez [id number] Sapna Garcia 07/12/2024 1 [facility] [employer] [id number] Giuseppe Rodriguez [id number] Sapna Garcia Notes Date Note Type Note Provider Name and Address Organization Details Recorded Time 07/12/2024 text/html She has a histor y of thyroid cancer. She had thyroidectomy in [place] 14 years ago. She had repeat surgery here 5-6 years ago. She reports her swallowing has been a problem since her first surgery. She had a swallow study at [facility]. She feels like food gets stuck. Has occasional choking with liquids. She has never smoked. She denies throat pain and SOB. I reviewed an Upper GI series which showed esophageal dysmotility. I also reviewed her CT neck with 02/2024 which showed possible right vocal cord paralysis. contrast CHANTEL MEYER MD [address] [place] [address], [place], [address], [facility] - [facility] 07/12/2024 14:28:36 OBGyn Episode No OBEpisode recorded.
--- OUTSIDE RECORDS SUMMARY | 2025-03-28 10:46 | XMS_ITS | Encounter Summary ---
Author Organization [employer] Address [address] [place] [address] Care Team Providers Care Boats Renter Name Role Phone Yi Thompson MD Primary Care Pro vider Encounter Details Date Type Department Care Team (Late st Contact Info) Description 11/06/2024 Orders Only [facility] [address] [place] [address] Provider, MD Lux Social History Tobacco Use [...] Description 04/06/2025 11:15 AM EDT Office Visit [facility] [address] [place] [address] Yi Thompson MD [address] [place] [address] 04/07/2025 10:00 AM EDT Medication Management [address] [address] documented as of this encounter Goals Goal [...] documented as of this encounter Care Teams Boats Renter Relationship Specialty Start Date End Date Yi Thompson MD [address] [place] [address] PCP - General Internal Medicine 08/20/23 documented as of this encounter
--- OUTSIDE RECORDS SUMMARY | 2025-03-28 10:46 | XMS_ITS | Encounter Summary ---
Author Organization [employer] Address [address] [place] [address] Care Team Providers Care Strategic Debriefing Specialist Name Role Phone Yi Thompson MD Primary Care Pro vider Reason for Visit * Reason Comments Med Refill Encounter Details Date Type Department Care Team ([facility] st Contact Info) Description 09/12/2024 Refill [facility] [address] [place] [address] Yi Thompson MD [address] [place] [address] Type 2 diabetes mellitus without complication, without long-term current use of insulin ([facility]) Social History Tobacco Use Types Packs/Day Years [...] the past 12 months, has t he [employer], gas, oil or water company threatened to [...] Description 04/06/2025 11:15 AM EDT Office Visit [address] [address] Yi Thompson MD [address] [place] [address] 04/07/2025 10:00 AM EDT Medication Management [address] [address] documented as of this encounter Goals Goal Patient Goal Type Associated Problems Recent Progress Patient-Stated? Author Blood Pressure < 140/90 Blood Pressure 124/80(2024 10:11 AM EDT) No Jn Shah Hemoglobin A1c < 7 Result Component 6.8( 8:59 AM EST) Jn Petit documented as of this encounter Visit Diagnoses Diagnosis Type 2 diabetes mellitus without complication, without long-term current use of insulin ([facility]) documented in this encounter Additional Health Concerns Assessment Noted Time PHQ-9 Depression Total Score: 1 01/13/20 24 12:16 PM EST documented as of this encounter Care Teams Strategic Debriefing Specialist Relationship Specialty Start Date End Date Yi Thompson MD [address] [place] [address] PCP - General Internal Medicine 08/20/23 documented as of this encounter
--- OUTSIDE RECORDS SUMMARY | 2025-03-28 10:46 | XMS_ITS | Encounter Summary ---
Author Organization [employer] Address [address] [place] [address] Care Team Providers Care Electrical Repairer Name Role Phone Yi Thompson MD Primary Care Pro vider Reason for Visit * Reason Comments Med Change Request Encounter Details Date Type Department Care Team ([facility] Contact Info) Description 11/11/2023 Refill [facility]INE [address] [place] [address] [facility] [address] [place] [address] Viral upper respiratory illness Social History Tobacco [...] Description 04/06/2025 11:15 AM EDT Office Visit [facility] MEDICINE [address] [place] [address] Yi Thompson MD [address] [place] [address] 04/07/2025 10:00 AM EDT Medication Management [facility] MED[facility]INE [address] [place] [address] documented as of this encounter Visit Diagnoses Diagnosis Viral upper respiratory illness documented in this encounter Care Teams Electrical Repairer Relationship Specialty Start Date End Date Yi Thompson MD [address] [place] [address] PCP - General Internal Medicine 08/20/23 documented as of this encounter
--- OUTSIDE RECORDS SUMMARY | 2025-03-28 10:47 | XMS_ITS | Encounter Summary ---
Author Organization [employer] Address [address] [place] [address] Care Team Providers Care Electronics Specialist Name Role Phone Juliet Bird Primary Care Provider [phone] Yi Thompson MD Primary Care Pro vider Reason for Visit * Reason Onset Date Comments triage 02/27/2023 Encounter Details Date Type Department Care Team (Late st Contact Info) Description 02/27/2023 Telephone [facility] [address] [place] [address] Juliet Bird FNP [address] [place] [address] Dept [place] [address] triage Social History Tobacco Use Types Packs/Day [...] 02/27/2023 4:58 PM EDT Triage call with [employer] [place] ID [id number] Pt reports a couple of days of [...] now The caller accepted this outcome speaks german documented in this encounter Plan of Treatment Upcoming Encounters Date Type Department Care Team (Late st Contact Info) Description 04/06/2025 11:15 AM EDT Office Visit [facility] [address] [place] [address] Yi Thompson MD [address] [place] [phone] 04/07/2025 10:00 AM EDT Medication Management [address] [address] documented as of this encounter Visit Diagnoses Not on filedocumented in this encounter Care Teams Electronics Specialist Relationship Specialty Start Date End Date Juliet Bird FNP PCP - General Family Medicine 01/22/23 08/19/23 Yi Thompson MD [address] [place] [address] PCP - General Internal Medicine 08/20/23 documented as of this encounter
--- OUTSIDE RECORDS SUMMARY | 2025-03-28 10:47 | XMS_ITS | Clinical Summary ---
Author Organization [employer] Address [address] [place] [address] Care Team Providers Care Information Technology Analyst Name Role Phone Yi Thompson MD Primary Care Pro vider Allergies Active Allergy Reactions Criticality Noted Date Comments Penicillins Hives High 12/28/2013 Other reaction(s): SWELLING , Unknown Other reaction(s): swelling pt received dose of cefazolin pre-op 07/04. Per CAT Britton, pt tolerated without issue Medications Blood Glucose Monitoring Suppl (FreeStyle [place] Lite) w/Device kit USE DIRECTED 2 Active Spacer/Aero-Holdin g Chambers (OptiChamber Delisa) misc 1 each every 4 (four) hours if needed (asthma). 1 each 3 Active Senna-Time 8.6 MG tablet Take 2 tablets by mouth in the morning. 4 Active rosuvastatin (Crestor) 40 MG tablet Take 40 mg by mouth in the morning. Active albuterol 108 (90 Base) MCG/ACT inhalerIndications :Wheezing Inhale 2 puffs every 6 (six) hours if needed for wheezing. 18 g 2 4 Active glucose blood (FREESTYLE LITE) test stripIndications:T ype 2 diabetes mellitus without complication, without long-term current use of insulin ([facility]) Use 1 by To Skin route 4 times every day 100 each 11 4 Active oxybutynin XL (Ditropan-XL) 10 MG 24 hr tablet Take 10 mg by mouth Once per day. 4 Active aspirin-acetaminop hen-caffeine (Excedrin Migraine) 250-250-65 MG tablet Take 1 tablet by mouth every 6 (six) hours if needed for headaches. 30 tablet 1 4 Active Alcohol Swabs pads 1 Swab at noon and 1 Swab in the evening. Use to test blood sugar twice daily. 100 each 11 4 Active Lancets 33G misc 1 Lancet at noon and 1 Lancet in the evening. Use to test blood sugar twice daily. 100 each 11 4 Active Methylcellulose, Laxative, (Citrucel) 500 MG tablet Take by mouth. Activ e estradiol (Estrace) 0.1 MG/GM vaginal cream Insert 1 g into the vagina Once per day. 1g vaginally x 14d, then twice weekly thereafter 45 g 2 4 Active amitriptyline (Elavil) 25 MG tablet Take 1 tablet by mouth at bedtime. Active Cranberry Concentrate 500 MG capsule TAKE 1 CAPSULE BY MOUTH TWICE DAILY WITH FOOD 4 Active cetirizine (ZyrTEC) 10 MG tablet Take 1 tablet by mouth in the morning. Active ibuprofen 400 MG tablet Take 1 tablet (400 mg) by mouth every 6 (six) hours if needed for moderate pain or fever for up to 30 doses. 30 tablet 4 Active metFORMIN XR (Glucophage-XR) 500 MG 24 hr tabletIndications: Type 2 diabetes mellitus without complication, without long-term current use of insulin ([facility]) TAKE 1 TABLET BY MOUTH TWICE DAILY AT NOON AND IN THE EVENING WITH MEALS. DO NOT BREAK, CRUSH, DISSOLVE OR CHEW 180 tablet 2 4 Active levothyroxine (Synthroid, Levoxyl) 112 MCG tablet Take 1 tablet by mouth in the morning. 4 Active hydrOXYzine pamoate (Vistaril) 25 MG capsule Take 1 capsule by mouth at bedtime. 4 Active naproxen (Naprosyn) 500 MG tablet Take 1 tablet by mouth 2 times daily. 4 Active gabapentin (Neurontin) 300 MG capsuleIndications :Spondylosis of lumbar region without myelopathy or radiculopathy,Dege neration of intervertebral disc of lumbar region, unspecified whether pain present,Lumbar radiculopathy,French Edge Operator virgil right-sided low back pain with right-sided sciatica,Sacroilii tis (CMS/HCC) Take 1 capsule (300 mg) by mouth at bedtime. 30 capsule 2 4 025 Active losartan-hydroCHLO ROthiazide (Hyzaar) 100-12.5 MG tablet TAKE 1 TABLET BY MOUTH EVERYDAY AT NOON 90 tablet 1 5 Active Januvia 100 MG tabletIndications: Type 2 diabetes mellitus without complication, without long-term current use of insulin (CMS/HCC) TAKE 1 TABLET BY MOUTH EVERY MORNING 90 tablet 5 Active pantoprazole (ProtoNix) 40 MG EC tablet TAKE 1 TABLET BY MOUTH EVERY MORNING 30 MINUTES BEFORE BREAKFAST 30 tablet 2 5 Active glucose blood (Contour Next Test) test strip Use to check blood sugar 4 times daily 100 each 12 5 026 Active montelukast (Singulair) 10 MG tablet TAKE 1 TABLET BY MOUTH EVERYDAY AT NOON 30 tablet 2 5 Active Blood Glucose Monitoring Suppl (Contour Blood Glucose System) w/Device kit 1 Device Once per day. 1 kit 5 Active acetaminophen (Tylenol 8 Hour) 650 MG ER tablet Take 1 tablet (650 mg) by mouth every 8 (eight) hours if needed for moderate pain. 40 tablet 1 5 Active Active Problems Problem Noted Date Diagnosed Date [...] Consideration for PT once patient returns from [facility] in January. Chest pain at rest [...] 09/17/2023 Forgetfulness 04/15/2023 Overview (08/20/2023): Seen at [facility] on 07/15/2020 for right sided facial [...] for vascular referral once patient returns from [facility] in January. Irritable bowel syndrome with [...] Description 02/21/2025 10:00 AM EDT Office Visit [facility] [address] [place] [address] Maximino Rasmussen MD H/O thrombophlebitis (Primary Dx); Left elbow pain 02/16/2025 Orders Only [facility] [address] [place] [phone] Maximino Rasmussen MD 02/15/2025 Refill [facility] [address] [place] [address] Yi Thompson MD 02/14/2025 Travel 02/14/2025 Telephone [facility] [address] [place] [address] Maximino Rasmussen MD 02/13/2025 Telephone [facility] [address] [place] [address] Porsha Curtis, CAT Plan of Care 02/13/2025 Orders Only [facility] [address] [place] [address] Maximino Rasmussen MD Superficial thrombophlebitis of left upper extremity (Primary Dx) 02/10/2025 11:20 AM EDT Office Visit [facility] [address] [place] [address] Maximino Rasmussen MD Nonintractable episodic headache, unspecified headache type (Primary Dx); Left arm pain 02/10/2025 Telephone [facility] [address] [place] [address] Porsha Curtis, CAT Results 02/10/2025 Telephone [facility] [address] [place] [address] Porsha Curtis, RN Recent [facility] 02/10/2025 Telephone [facility] [address] [place] [address] Yi Thompson MD Nurse Triage 02/07/[address] [address] Diana Beltran, CAT Results 02/06/2025 Orders Only [address] [address] Peter Tate CNM Breast pain, left (Primary Dx) 02/06/[address] [address] Yi Thompson MD Lab Orders 01/26/2025 Refill [facility] [address] [place] [address] [facility] 01/18/2025 10:20 AM EST Office Visit [facility] [address] [place] [address] Yi Culp MD Influenza A (Primary Dx); Cough in adult patient 01/18/2025 Telephone [facility] [address] [place] [address] Yi Thompson MD Nurse Triage 01/05/2025 Refill [facility] [address] [place] [address] Tala Armstrong, CAT 12/30/2024 Refill [facility] [address] [place] [address] Yi Thompson MD from Last 3 Months Immunizations Name [...] Description 04/06/2025 11:15 AM EDT Office Visit [facility] [address] [place] [address] Yi Thompson MD [address] [place] [address] 04/07/2025 10:00 AM EDT Medication Management [address] [address] Health Maintenance Due Date Last Done Comments [...] 10:22 AM EST Cough in adult patient HM COLONOSCOPY Routine 11/03/2024 6:36 PM EST [...] EDT Narrative 02/17/2025 8:25 AM EDT ? [facility] ?[address] ?[place] [address] ? CT Scan Report ? Signed ? Patient: Fany Radha,Sapna C ?MR#: M ?? [id number] ? : 1960 ?Acct:[id number] ? Age/Sex: 64 / F ?ADM Date: 04/03/25 ? Loc: HO.CT ? Attending : Ganesh Arias MD ? Ordering Physician: Ganesh Arias MD ?? Date of Service: 02/16/25 ?? Procedure(s): CT chest wo IV con ?? Accession Number(s): [id number] ? cc: Yi Thompson MD; Ganesh Arias MD ? Report Number: ?? [id number]: Total DLP = ??111.00 mGy-cm ? CLINICAL [...] signed by Everardo Padilla MD in OV> ?02/17/25 0825 ? DD/ 3 ? TD/TT: 02/17/25823 ? Material Chaser: ? Procedure Note Lissy, Image - 02/17/[address] [place] [address] [address] Scan Report Signed Patient: Sapna Herzog CMR#: M [id number] : 9Acct:[id number] Age/Sex: 64 / FADM Date: 02/16/25 Loc: HO.CT Attending Dr: Ganesh Arias MD Ordering Physician: Ganesh Arias MD Date of Service: 02/16/25 Procedure(s): CT chest wo IV con Accession Number(s): [id number] cc: Yi Thompson MD; Ganesh Arias MD Report Number: [id number]: Total DLP = 111.00 mGy-cm CLINICAL HISTORY: [...] in OV> 02/17/25824 DD/ 3 TD/TT: 02/17/25823 Material Chaser: us [facility] External Provider IMG CT PROCEDURES Final Result * US DOPPLER EXT UPPER VENOUS LEFT (02/16/2025 2:25 PM EDT) Only the most recent of2 resultswithin the time period is included. Anatomical Region Laterality Modality Body Ultrasound 02/16/2025 2:25 PM EDT Narrative 02/16/2025 3:50 PM EDT ? [facility] ?[address] ?[place] [address] ? Ultrasound Report ? Signed ? Patient: Sapna Herzog ?MR#: M ?? [id number] ? : 1960 ?Acct:[id number] ? Age/Sex: 64 / F ?ADM Date: 02/16/25 ? Loc: HO.CT ? Attending Dr: Ganesh Arias MD ? Ordering Physician: MAXIMINO RASMUSSEN MD ?? Date of Service: 02/16/25 ?? Procedure(s): US venous duplex UE LT ?? Accession Number(s): [id number] ? cc: MAXIMINO RASMUSSEN MD; Yi Thompson [...] Kendall MD ??02/16/2025 03:46 PM ?? EDT ? Dictated By: ?Andres Salcido MD ? Signed By: ?<Electronically signed by Andres Armstrong MD in OV> ? 02/16/25 1546 ? DD/ 1425 ? TD/TT: 02/16/25 1438 ? Material Chaser: ? Procedure Note Donramirezter, Image - 02/16/2025 [place] [address] Ultrasound Report Signed Patient: Sapna Herzog CMR#: M [id number] : 9Acct:[id number] Age/Sex: 64 / FADM Date: 02/16/25 Loc: HO.CT Attending Dr: Ganesh Arias MD Ordering Physician: MAXIMINO RASMUSSEN MD Date of Service: 02/16/25 Procedure(s): US venous duplex UE LT Accession Number(s): [id number] cc: MAXIMINO RASMUSSEN MD; Yi Thompson MD [...] Andres Kendall MD 02/16/2025 03:46 PM EDT RP Dictated By: Andres Salcido MD Signed By: <Electronically signed by Andres Armstrong MDin OV> 02/16/25 1546 DD/ 1425 TD/TT: 02/16/25 1438 Material Chaser: Maximino Rasmussen MD Ghada PROCEDURES Edited Result - Final * XR Humerus Left (02/10/2025 2:58 PM EDT) Anatomical Region Laterality Modality Upper Extremities, Humerus Left Radio graphic Imaging 02/10/2025 2:58 PM EDT Narrative 02/10/2025 3:44 PM EDT ? [facility] ?[address] ?[place] [address] ?XRay Report ? Signed ? Patient: Fany Sapna Garcia ?MR#: M ?? [id number] ? : 1960 ?Acct:[id number] ? Age/Sex: 64 / F ?ADM Date: 02/10/25 ? Loc: HO.US ? Attending Dr: Maximino Rasmussen MD ? Ordering Physician: MAXIMINO RASMUSSEN MD ?? Date of Service: 02/10/25 ?? Procedure(s): XR humerus LT ?? Accession Number(s): [id number] ? cc: MAXIMINO RASMUSSEN MD; Yi Thompson [...] DD/ 1458 ? TD/TT: 02/10/25 1505 ? Material Chaser: ? Procedure Note Donotizabellater, Image - 02/10/[address] [address] XRay Report Signed Patient: Sapna Herzog CMR#: M [id number] : 1960cct:[id number] Age/Sex: 64 / FADM Date: 02/10/25 Loc: HO.US Attending Dr: Maximino Rasmussen MD Ordering Physician: MAXIMINO RASMUSSEN MD Date of Service: 02/10/25 Procedure(s): XR humerus LT Accession Number(s): [id number] cc: MAXIMINO RASMUSSEN MD; Yi Thompson MD [...] Milton Duckworth MD 02/10/2025 03:41 PM EDT Dictated By: Milton Duckworth MD Signed By: <Electronically signed by Milton Duckworth MD in OV> 02/10/25 1541 DD/ 1458 TD/TT: 02/10/25 1505 Material Chaser: us Maximino Rasmussen MD IMG XR PROCEDURES Final Result * BI US Breast Limited Left (02/07/2025 10:44 AM EDT) Anatomical Region Laterality Modality Breast Left Ultrasound 02/07/2025 10:4 4 AM EDT Narrative 02/07/2025 11:07 AM EDT ? [facility] ? [address] ?[place] [address] ? Ultrasound Report ? Signed ? Patient: Fany Radha,Sapna C ?MR#: M ?? [id number] ? : 1960 ?Acct:[id number] ? Age/Sex: 64 / F ?ADM Date: 02/07/25 ? Loc: HO.MAMMO ? Attending Dr: Peter Tate CNM ? Ordering Physician: PETER TATE CNM ?? Date of Service: 02/07/25 ?? Procedure(s): US breast LT limited mamm only ?? Accession Number(s): [id number] ? cc: Yi Thompson MD; PETER TATE [...] DD/ 1044 ? TD/TT: 02/07/25 1058 ? Material Chaser: ? Procedure Note Donotuseinterpreter, Image - 02/07/2025 [facility] [address] [place], [place] [address] Ultrasound Report Signed Patient: Sapna Herzog CMR#: M [id number] : 9Acct:[id number] Age/Sex: 64 / FADM Date: 02/07/25 Loc: HO.MAMMO Attending Dr: Peter Tate CNM Ordering Physician: PETER TATE CNM Date of Service: 02/07/25 Procedure(s): US breast LT limited mamm only Accession Number(s): [id number] cc: Yi Thompson MD; PETER TATE CNM [...] 02/07/25 1104 DD/ 1044 TD/TT: 02/07/25 1058 Material Chaser: us Peter Tate CNM IMG US PROCEDURES Edited Result - Final * BI Mammogram Diagnostic Tomosynthesis Bilateral (02/07/2025 10:10 AM EDT) Anatomical Region Laterality Modality Breast Bilateral Mammography 02/07/2025 10:1 0 AM EDT Narrative 02/07/2025 11:07 AM EDT ? [facility] ? [address] ?[place] [address] ?[phone] ? Mammography Report ? Signed ? Patient: Sapna Herzog ?MR#: M ?? [id number] ? : 1960 ?Acct:[id number] ? Age/Sex: 64 / F ?ADM Date: 03/25/25 ? Loc: HO.MAMMO ? Attending Dr: Peter Tate CNM ? Ordering Physician: PETER TATE CNM ?Results: 1 ?? Negative ? Date of Service: 02/07/25 ?Follow Up: 1 Year From Orig ?? inal Mammogram ? Procedure(s): MM tomosynthesis diagnostic BI ?? Accession Number(s): [id number] ? cc: Yi Thompson MD; PETER TATE [...] DD/ 1010 ? TD/TT: 02/07/25 1035 ? Material Chaser: ? Procedure Note Donotuseinterpreter, Image - 02/07/2025 [place] [facility] [address] [place] [address] Mammography Report Signed Patient: Sapna Herzog CMR#: M [id number] : 1960cct:[id number] Age/Sex: 64 / FADM Date: 02/07/25 Loc: HO.MAMMO Attending Dr: Peter Tate CNM Ordering Physician: PETER TATEesults: 1 Negative Date of Service: 02/07/25Follow Up: 1 Year From Orig ina Mammogram Procedure(s): MM tomosynthesis diagnostic BI Accession Number(s): [id number] cc: Yi Thompson MD; PETER TATE CNM [...] 02/07/25 1104 DD/ 1010 TD/TT: 02/07/25 1035 Material Chaser: us Peter CADET IMG BI PROCEDURES Edited Result - Final * Influenza B (ID NOW Rapid Molecular) (01/18/2025 10:35 AM EST) Pathologist [facility] Influenza B Negative Negative, Indeterminate [facility] Swab 01/18/2025 10:3 5 AM EST us Yi Ch MD POINT OF CARE TEST EN TER/EDIT ORDERABLES Final Result Performing Organization Address City/[facility] Co de Phone Number [facility] [address] [place] [phone] * (ABNORMAL) Influenza A (ID NOW Rapid Molecular) (01/18/2025 10:35 AM EST) Pathologist [facility] Influenza A Positive( A) Negative, Indeterminate [facility] Swab 01/18/2025 10:3 5 AM EST us Yi Ch MD POINT OF CARE TEST EN TER/EDIT ORDERABLES Final Result Performing Organization Address [facility] Co de Phone Number [facility] [address] [place] [phone] * POCT Rapid COVID Ag (01/18/2025 10:22 AM EST) Pathologist [facility] Rapid COVID Ag Negative Swab 01/18/2025 10:2 2 AM EST Yi Ch MD POINT OF CARE TEST EN TER/EDIT ORDERABLES Final Result * Hm Colonoscopy (11/03/2024 6:36 PM EST) Historical Provider HEALTH MAINTENANCE Final Result * (ABNORMAL) POCT HGB A1C (10/28/2024 8:59 AM EST) Hemoglobin A1C 6.8(A) 4.0 - 6.0 % QC Media Lot # [id number] Lot# Expiration Date Blood 10/28/2024 8:59 AM EST Cathleen Lomax [facility] POINT OF CARE TEST ENTER/ EDIT ORDERABLES Final Result * Lipid Panel, Standard (05/16/2024 11:43 AM EDT) Triglycerides 85 <150 mg/dL [facility] Comment:Desirable Triglyceri de: less than 150 mg/dLBorderline High Triglyceride 150-199 mg/dLHigh Triglyceride: 200-499 mg/dLVery High Triglyceride: greater than or equal to 5OO mg/dL Cholesterol 124 <200 mg/dL [facility] Comment:Desirable Cholestero l: less than 200 mg/dLBorderline High Cholesterol: 200-239 mg/dLHigh Cholesterol: greater than 239 mg/dL LDL Cholesterol Calculated 62 <100 mg/dL [facility] Comment:Desirable LDL: less than 100 mg/dLNear Optimal/Above Optimal LDL: 110- 129 mg/dLBorderline High LDL: 130-159 mg/dLHigh LDL: 160-189 mg/dLVery High LDL: greater than or equal to 190 mg/dL HDL Cholesterol 45 >40 mg/dL [facility] Comment:Desirable HDL: great er than 40 mg/dL Note: This HDL assay may give artificially low results in patients with liver disease. Blood Venous blood specimen / Unknown 05/16/2024 11:43 AM EDT 05/16/2024 11:49 AM EDT us Yi Cleary MD LAB BLOOD ORDERAB LES Final Result Performing Organization Address [facility]/ZIP Co de Phone Number [facility] [address] [place] [address] [phone] * Albumin, Random Urine W/Creatinine (01/12/2024 3:10 PM EST) Creatinine, Urine 31.68 mg/dL [facility] Microalbumin Urine 5.0 mg/L [facility] Microalbum Creatinine Ratio Ur 15.7 <30 ug/mg cr [facility] Comment:Albumin/Creatinine R atio Reference Ranges: Normal: < 30 ug/mg creatinine Microalbuminuria: 30 - 300 ug/mg creatinineClinical Albuminuria: > 300 ug/mg creatinine 01/12/2024 3:10 PM EST 01/12/2024 4:41 PM EST us Yi Cleary MD LAB URINE ORDERAB LES Final Result Performing Organization Address [facility] de Phone Number [facility] [address] [place] [phone] * Hepatitis C Antibody with Reflex to HCV, RNA, Quantitative, Real-Time PCR (01/12/2024 8:56 AM EST) Hepatitis C Antibody Nonreactive Nonreactive [facility] Comment:Antibodies to HCV no t detected; does not exclude early acuteHCV infection. Blood Venous blood specimen / Unknown 01/12/2024 8:56 AM EST 01/12/2024 11:12 AM EST us Yi Cleary MD LAB BLOOD ORDERAB LES Final Result Performing Organization Address [facility] Co de Phone Number [facility] [address] [place] [address] [phone] * THINPREP PAP (10/25/2020 10:02 AM [...] historic and ?? current clinical information. ?? Supervisor Operations : SEE COMMENT [facility] Comment: QUIN[place], CT(ASCP) CT screening location: [address] ??[address] Interpretation/R esult: Negative for intraepithelial lesion or malignancy. [facility] LMP: NONE GIVEN [facility] Prev. BX: NONE GIVEN [facility] Prev. PAP: NONE GIVEN [facility] SOURCE: None given [facility] Statement Of Adequacy: [facility] Comment: Satisfactory for evaluation. Endocervical/transformation zone component present. 10/25/2020 10:0 2 AM EST Peter Tate [facility] PATHOLOGY ORDERABLES Final Result [facility] [address] * HPV mRNA E6/E7 (10/25/2020 10:02 AM EST) HPV nRNA E6/E7 Not Detected Not Detected [facility] Comment: This test was performed using the APTIMA HPV Assay ([employer] This assay detects E6/E7 viral messenger RNA (mRNA) from 14 high-risk HPV types (16,18,31,33,35,39,45,51,52,56,58,59,66,68). ?? The analytical performance characteristics of this assay have been determined by [employer]. The modifications have not been cleared or approved by the FDA. This assay has been validated pursuant to the CLIA regulations and is used for clinical purposes. 10/25/2020 10:0 2 AM EST us Peter Medina CN LAB BLOOD ORDERABLES Cammy donny Result [facility] [address] from Last 3 Months or Most Recently Relevant to Health Maintenance Insurance [employer] Care Teams Information Technology Analyst Relationship Specialty Start Date End Date Yi Thompson MD [address] [place] [phone] PCP - General Internal Medicine 08/20/23
--- OUTSIDE RECORDS SUMMARY | 2025-03-28 10:47 | XMS_ITS | Encounter Summary ---
Author Organization [employer] Address [address] [place] [address] Care Team Providers Care Metal Control Worker Name Role Phone Yi Thompson MD Primary Care Pro vider Reason for Visit * Reason Comments Med Refill Encounter Details Date Type Department Care Team ([facility] st Contact Info) Description 09/15/2023 Refill [facility] [address] [place] [address] Juliet Bird, MARY ELLEN [address] [place] [address] Dept [place] [address] Primary hypertension; Type 2 diabetes mellitus without complication, without long-term current use of insulin ([facility]) Social History Tobacco Use Types Packs/Day Years [...] Description 04/06/2025 11:15 AM EDT Office Visit [facility] [address] [place] [phone] Yi Thompson MD [address] [place] [phone] 04/07/2025 10:00 AM EDT Medication Management [address] [address] documented as of this encounter Visit Diagnoses Diagnosis Primary hypertension Unspecified essential hypertension Type 2 diabetes mellitus without complication, without long-term current use of insulin ([facility]) documented in this encounter Care Teams Metal Control Worker Relationship Specialty Start Date End Date Yi Thompson MD [address] [place] [phone] PCP - General Internal Medicine 08/20/23 documented as of this encounter
--- OUTSIDE RECORDS SUMMARY | 2025-03-28 10:47 | XMS_ITS | Encounter Summary ---
Author Organization [employer] Address [address] [place] [address] Care Team Providers Care Typing Teacher Name Role Phone Yi Thompson MD Primary Care Pro vider Reason for Visit * Reason Comments Med Refill Encounter Details Date Type Department Care Team ([facility] st Contact Info) Description 05/03/2024 Refill [facility] [address] [place] [address] Yi Thompson MD [address] [place] [address] Social History Tobacco Use Types Packs/Day Years [...] Description 04/06/2025 11:15 AM EDT Office Visit [address] [address] Yi Thompson MD [address] [place] [address] 04/07/2025 10:00 AM EDT Medication Management [address] [address] documented as of this encounter Goals Goal [...] documented as of this encounter Care Teams Typing Teacher Relationship Specialty Start Date End Date Yi Thompson MD [address] [place] [phone] PCP - General Internal Medicine 08/20/23 documented as of this encounter
--- OUTSIDE RECORDS SUMMARY | 2025-03-28 10:47 | XMS_ITS | Encounter Summary ---
Author Organization [employer] Address [address] [place] [address] Care Team Providers Care News Copy Editor Name Role Phone Juliet Bird [facility] Primary Care Provider [phone]- [phone] Yi Thompson MD Primary Care Pro vider Reason for Visit * Reason Comments Med Refill Encounter Details Date Type Department Care Team (Late Contact Info) Description 01/28/2023 Refill [facility] [address] [place] [address] [facility] [address] [place], [place] [phone] Primary hypertension Social History Tobacco Use Types [...] Department Care Team (Late Contact Info) Description 04/06/2025 11:15 AM EDT Office Visit [facility] [address] [place] [address] [phone] Yi Thompson MD [address] [place], [place] [phone] 04/07/2025 10:00 AM EDT Medication Management [facility] [address] [place], [place] [phone] documented as of this encounter Visit Diagnoses Diagnosis Primary hypertension Unspecified essential hypertension documented in this encounter Care Teams News Copy Editor Relationship Specialty Start Date End Date Juliet Bird FNP PCP - General Family Medicine 01/22/23 08/19/23 Yi Thompson MD [address] [place] [address] PCP - General Internal Medicine 08/20/23 documented as of this encounter
--- OUTSIDE RECORDS SUMMARY | 2025-03-28 10:47 | XMS_ITS | Encounter Summary ---
Author Organization [employer] Address [address] [place] [address] Care Team Providers Care Insulation Board Head Saw Operator Name Role Phone Yi Thompson MD Primary Care Pro vider Reason for Visit * Reason Comments Med Change Request Encounter Details Date Type Department Care Team ([facility] Contact Info) Description 03/15/2024 Refill [facility] 230 [place] [address] Leticia Plunkett, ANP [address] [place] [address] Sinus pressure Social History Tobacco Use Types [...] Description 04/06/2025 11:15 AM EDT Office Visit [facility] [address] [place] [address] Yi Thompson MD [address] [place] [address] 04/07/2025 10:00 AM EDT Medication Management [address] [address] documented as of this encounter Goals Goal [...] documented as of this encounter Care Teams Insulation Board Head Saw Operator Relationship Specialty Start Date End Date Yi Thompson MD [address] [place] [address] PCP - General Internal Medicine 08/20/23 documented as of this encounter
--- OUTSIDE RECORDS SUMMARY | 2025-03-28 10:47 | XMS_ITS | Encounter Summary ---
Author Organization [employer] Address [address] [place] [address] Care Team Providers Care Launch Engineer Name Role Phone Juliet Bird Primary Care Provider [phone]- [phone] Yi Thompson MD Primary Care Pro vider Reason for Visit * Reason Comments Med Refill Encounter Details Date Type Department Care Team (Late Contact Info) Description 06/28/2023 Refill [facility] [address] [place] [address] Juliet Bird FNP [address] [place] [address] Dept [place] [address] Social History Tobacco Use Types Packs/Day Years [...] Description 04/06/2025 11:15 AM EDT Office Visit [facility] [address] [place] [address] Yi Thompson MD 230 [place], [place] [phone] 04/07/2025 10:00 AM EDT Medication Management [facility] [address] [place] [address] documented as of this encounter Visit Diagnoses Not on filedocumented in this encounter Care Teams Launch Engineer Relationship Specialty Start Date End Date Juliet Bird FNP PCP - General Family Medicine 01/22/23 08/19/23 Yi Thompson MD [address] [place] [address] PCP - General Internal Medicine 08/20/23 documented as of this encounter
--- OUTSIDE RECORDS SUMMARY | 2025-03-28 10:47 | XMS_ITS | Encounter Summary ---
Author Organization [employer] Address [address] [place] [address] Care Team Providers Care Food Service Representative Name Role Phone Yi Thompson MD Primary Care Pro vider Reason for Visit * Reason Onset Date Comments Nurse Triage 02/15/2024 Encounter Details Date Type Department Care Team ([facility] st Contact Info) Description 02/15/2024 Telephone [facility] [address] [place] [address] Yi Thompson MD 230 [place] [address] Nurse Triage Social History Tobacco Use Types [...] housing situation today? I have radha sing 08/31/[address] you li [...] 02/15/2024 12:44 PM EDT Triage call with [employer] ID [id number] Pt reports headache frontal and back of [...] 400pm. Pt is advised to come to [facility] which is open till 8pm this evening. [...] Tingling sensation The caller accepted this outcome Syriac speaker documented in this encounter Plan of Treatment Upcoming Encounters Date Type Department Care Team (Late st Contact Info) Description 04/06/2025 11:15 AM EDT Office Visit [facility] [address] [place] [address] Yi Thompson MD [address] [place] [address] 04/07/2025 10:00 AM EDT Medication Management [address] [address] documented as of this encounter Visit Diagnoses Not on filedocumented in this encounter Additional Health Concerns Assessment Noted Time PHQ-9 Depression Total Score: 1 01/13/20 24 12:16 PM EST documented as of this encounter Care Teams Food Service Representative Relationship Specialty Start Date End Date Yi Thompson MD [address] [place] [address] PCP - General Internal Medicine 08/20/23 documented as of this encounter
== END 2025-03-28 16:05 | disposition home or self-care (01) ==
LOC: HO.HUSH 09:55
PROVIDERS: PCP Student in an Organized Health Care Education/Training Program; Visit Provider Urology
DX: N30.20 Other chronic cystitis without hematuria (principal); R39.89 Other symptoms and signs involving the genitourinary system; R10.2 Pelvic and perineal pain; N94.10 Unspecified dyspareunia; Q63.8 Other specified congenital malformations of kidney
CPT/HCPCS: 99213

== ENCOUNTER 2025-03-30 12:06 | Outpatient (REF) | payer OTHER, SELFPAY ==
--- NOTE | ~2025-03-30 | XR_ITS ---
CLINICAL HISTORY: pain AP standing view of bilateral knees, two views of left knee and two views of right knee Comparison: None Findings: Bones intact. No dislocations. Tricompartmental periarticular osteophyte formation, indicating osteoarthritis. No joint effusion. No radiopaque foreign body. IMPRESSION: 1. No acute findings. 2. Osteoarthritis. This document has been electronically signed by: Tony Nielsen MD on 03/30/2025 17:55:36
--- OUTSIDE RECORDS SUMMARY | 2025-03-30 13:03 | XMS_ITS | Clinical Summary ---
Author Organization [employer] Address [address] [place] [address] Care Team Providers Care Pediatric Neurologist Name Role Phone Yi Thompson MD Primary Care Pro vider Allergies Active Allergy Reactions Criticality Noted Date Comments Penicillins Hives High 12/28/2013 Other reaction(s): SWELLING , Unknown Other reaction(s): swelling pt received dose of cefazolin pre-op 07/04. 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 Chest pain at rest [...] 09/17/2023 Forgetfulness 04/15/2023 Overview (08/20/2023): Seen at [facility] on 07/15/2020 for right sided facial [...] for vascular referral once patient returns from [facility] in January. Irritable bowel syndrome with [...] Encounters Date Type Department Care Team Description 03/30/2025 Orders Only [facility] [address] [place] [address] Maria Del Carmen Meza MD Hypertension (Primary Dx) 02/21/2025 10:00 AM EDT Office Visit [facility] [address] [place] [address] Maximino Rasmussen MD H/O thrombophlebitis (Primary Dx); Left elbow pain 02/16/2025 Orders Only [facility] [address] [place] [address] Maximino Rasmussen MD 02/15/2025 Refill [facility] [address] [place] [address] Yi Thompson MD 02/14/2025 Travel 02/14/2025 Telephone [facility] [address] [place] [address] Maximino Rasmussen MD 02/13/2025 Telephone [facility] [address] [place] [address] Porsha Curtis, CAT Plan of Care 02/13/2025 Orders Only [facility] [address] [place] [address] Maximino Rasmussen MD Superficial thrombophlebitis of left upper extremity (Primary Dx) 02/10/2025 11:20 AM EDT Office Visit [facility] [address] [place] [address] Maximino Rasmussen MD Nonintractable episodic headache, unspecified headache type (Primary Dx); Left arm pain 02/10/2025 Telephone [facility] [address] [place] [address] Porsha Curtis, CAT Results 02/10/2025 Telephone [facility] [address] [place] [address] Porsha Curtis, CAT Recent [facility] 02/10/[address] [address] Yi Thompson MD Nurse Triage 02/07/[address] [address] Diana Beltran, CAT Results 02/06/2025 Orders Only [address] [address] Peter Tate CNM Breast pain, left (Primary Dx) 02/06/[address] [address] Yi Thompson MD Lab Orders 01/26/2025 Refill [facility] [address] [place] [address] [facility] 01/18/2025 10:20 AM EST Office Visit [facility] [address] [place] [address] Yi Culp MD Influenza A (Primary Dx); Cough in adult patient 01/18/[address] [address] Yi Thompson MD Nurse Triage 01/05/2025 Refill [facility] [address] [place] [address] Tala Armstrong, CAT from Last 3 Months Immunizations Immunization Administration Dates Next Due Hep B, adult [...] 11:15 AM EDT Office Visit [facility] [address] [place] [address] Yi Thompson MD [address] [place] [address] 04/07/2025 10:00 AM EDT Medication Management [address] [address] Health Maintenance Due Date Last Done Comments [...] patient's age to complete this topic Meningococcal B Vaccine Aged Out No l onger eligible based on patient's age to complete [...] ? [facility] ?[address] ?[place] [address] ? CT Scan Report ? Signed ? Patient: Fany Garcia,Sapna Sands ?MR#: M ?? [id number] ? : 1960 ?Acct:[id number] ? Age/Sex: 64 / F ?ADM Date: 04/03/25 ? Loc: HO.CT ? Attending Dr: Ganesh Arias MD ? Ordering Physician: Ganesh Arias MD ?? Date of Service: 02/16/25 ?? Procedure(s): CT chest wo IV con ?? Accession Number(s): [id number] ? cc: Yi Thompson MD; Ganesh Arias MD ? Report Number: ?? [id number]: Total DLP = ??111.00 mGy-cm ? CLINICAL [...] ? DD/ 3 ? TD/TT: 02/17/25823 ? Globe Tester: ? Procedure Note Rocio Yuan - 02/17/[address] [place] [address] [address] Scan Report Signed Patient: Sapna Herzog CMR#: M [id number] : 9Acct:[id number] Age/Sex: 64 / FADM Date: 02/16/25 Loc: HO.CT Attending Dr: Ganesh Arias MD Ordering Physician: Ganesh Arias MD Date of Service: 02/16/25 Procedure(s): CT chest wo IV con Accession Number(s): [id number] cc: Yi Thompson MD; Ganesh Arias MD Report Number: [id number]: Total DLP = 111.00 mGy-cm CLINICAL HISTORY: [...] in OV> 02/17/25824 DD/ 3 TD/TT: 02/17/25823 Globe Tester: [facility] External Provider IMG CT PROCEDURES Final Result * US DOPPLER EXT UPPER VENOUS LEFT (02/16/2025 2:25 PM EDT) Only the most recent of2 resultswithin the time period is included. Anatomical Region Laterality Modality Body Ultrasound 02/16/2025 2:25 PM EDT Narrative 02/16/2025 3:50 PM EDT ? [facility] ?[address] ?[place] [address] ? Ultrasound Report ? Signed ? Patient: Sapna Herzog ?MR#: M ?? [id number] ? : 1960 ?Acct:[id number] ? Age/Sex: 64 / F ?ADM Date: 02/16/25 ? Loc: HO.CT ? Attending Dr: Ganesh Arias MD ? Ordering Physician: MAXIMINO RASMUSSEN MD ?? Date of Service: 02/16/25 ?? Procedure(s): US venous duplex UE LT ?? Accession Number(s): [id number] ? cc: MAXIMINO RASMUSSEN MD; Yi Thompson [...] veins are patent and ?? compressible. ? US/ venous duplex UE LT ?? [...] DD/ 1425 ? TD/TT: 02/16/25 1438 ? Globe Tester: ? Procedure Note Donramirezter, Image - 02/16/2025 [place] [address] Ultrasound Report Signed Patient: Sapna Herzog CMR#: M [id number] : 1960cct:[id number] Age/Sex: 64 / FADM Date: 02/16/25 Loc: HO.CT Attending Dr: Ganesh Arias MD Ordering Physician: MAXIMINO RASMUSSEN MD Date of Service: 02/16/25 Procedure(s): US venous duplex UE LT Accession Number(s): [id number] cc: MAXIMINO RASMUSSEN MD; Yi Thompson MD [...] 02/16/25 1546 DD/ 1425 TD/TT: 02/16/25 1438 Globe Tester: us Maximino Rasmussen MD [place] PROCEDURES Edited Result - Final * XR Humerus Left (02/10/2025 2:58 PM EDT) Anatomical Region Laterality Modality Upper Extremities, Humerus Left Radio graphic Imaging 02/10/2025 2:58 PM EDT Narrative 02/10/2025 3:44 PM EDT ? [facility] ?[address] ?[place] [address] ?XRay Report ? Signed ? Patient: Sapna Herzog ?MR#: M ?? [id number] ? : 1960 ?Acct:[id number] ? Age/Sex: 64 / F ?ADM Date: 02/10/25 ? Loc: HO.US ? Attending Dr: Maximino Rasmussen MD ? Ordering Physician: MAXIMINO RASMUSSEN MD ?? Date of Service: 02/10/25 ?? Procedure(s): XR humerus LT ?? Accession Number(s): [id number] ? cc: MAXIMINO RASMUSSEN MD; Yi Thompson [...] DD/ 1458 ? TD/TT: 02/10/25 1505 ? Globe Tester: ? Procedure Note Donotkinginterpreter, Image - 02/10/[address] [address] XRay Report Signed Patient: Sapna Herzog CMR#: M [id number] : 1960cct:[id number] Age/Sex: 64 / FADM Date: 02/10/25 Loc: . Attending Dr: Maximino Rasmussen MD Ordering Physician: MAXIMINO RASMUSSEN MD Date of Service: 02/10/25 Procedure(s): XR humerus LT Accession Number(s): [id number] cc: MAXIMINO RASMUSSEN MD; Yi Thompson MD [...] 02/10/25 1541 DD/ 1458 TD/TT: 02/10/25 1505 Globe Tester: us Maixmino Rasmussen MD IMG XR PROCEDURES Final Result * BI US Breast Limited Left (02/07/2025 10:44 AM EDT) Anatomical Region Laterality Modality Breast Left Ultrasound 02/07/2025 10:4 4 AM EDT Narrative 02/07/2025 11:07 AM EDT ? [place] [facility] ? [address] ?[place] [address] ? Ultrasound Report ? Signed ? Patient: Fany Radha,Sapna C ?MR#: M ?? [id number] ? : 1960 ?Acct:[id number] ? Age/Sex: 64 / F ?ADM Date: 02/07/25 ? Loc: HO.MAMMO ? Attending Dr: Peter Tate CNM ? Ordering Physician: PETER TATE CNM ?? Date of Service: 02/07/25 ?? Procedure(s): US breast LT limited mamm only ?? Accession Number(s): [id number] ? cc: Yi Thompson MD; PETER TATE [...] DD/ 1044 ? TD/TT: 02/07/25 1058 ? Globe Tester: ? Procedure Note Donotuseinterpreter, Image - 02/07/2025 [facility] [address] [place] [address] Ultrasound Report Signed Patient: Sapna Herzog CMR#: M [id number] : 9Acct:[id number] Age/Sex: 64 / FADM Date: 02/07/25 Loc: HO.MAMMO Attending Dr: Peter Tate CNM Ordering Physician: PETER TATE CNM Date of Service: 02/07/25 Procedure(s): US breast LT limited mamm only Accession Number(s): [id number] cc: Yi Thompson MD; PETER TATE CNM [...] 02/07/25 1104 DD/ 1044 TD/TT: 02/07/25 1058 Globe Tester: [facility] PROCED[facility] Edited Result - Final * BI Mammogram Diagnostic Tomosynthesis Bilateral (02/07/2025 10:10 AM EDT) Anatomical Region Laterality Modality Breast Bilateral Mammography 02/07/2025 10:1 0 AM EDT Narrative 02/07/2025 11:07 AM EDT ? [facility] [place] ? [address] ?[place] [address] ?[phone] ? Mammography Report ? Signed ? Patient: Sapna Herzog ?MR#: M ?? [id number] ? : 1960 ?Acct:[id number] ? Age/Sex: 64 / F ?ADM Date: 03/25/25 ? Loc: HO.MAMMO ? Attending Dr: Peter Tate CNM ? Ordering Physician: PETER TATE CNM ?Results: 1 ?? Negative ? Date of Service: 02/07/25 ?Follow Up: 1 Year From Orig ?? inal Mammogram ? Procedure(s): MM tomosynthesis diagnostic BI ?? Accession Number(s): [id number] ? cc: Yi Thompson MD; PETER TATE [...] DD/ 1010 ? TD/TT: 02/07/25 1035 ? Globe Tester: ? Procedure Note Donotuseinterpreter, Image - 02/07/2025 [facility] [address] [place], [place] [address] Mammography Report Signed Patient: Sapna Herzog CMR#: M [id number] : 1960cct:[id number] Age/Sex: 64 / FADM Date: 02/07/25 Loc: HO.MAMMO Attending Dr: Peter Tate CNM Ordering Physician: PETER TATEesults: 1 Negative Date of Service: 02/07/25Follow Up: 1 Year From Orig ina Mammogram Procedure(s): MM tomosynthesis diagnostic BI Accession Number(s): [id number] cc: Yi Thompson MD; PETER TATE CNM [...] 02/07/25 1104 DD/ 1010 TD/TT: 02/07/25 1035 Globe Tester: us Peter CADET IMG BI PROCEDURES Edited Result - Final * Influenza B (ID NOW Rapid Molecular) (01/18/2025 10:35 AM EST) Influenza B Negative Negative, Indeterminate [facility] Swab 01/18/2025 10:3 5 AM EST us Yi Ch MD POINT OF CARE TEST EN TER/EDIT ORDERABLES Final Result Performing Organization Address [facility] Co de Phone Number [facility] [address] [place] [phone] * (ABNORMAL) Influenza A (ID NOW Rapid Molecular) (01/18/2025 10:35 AM EST) Influenza A Positive( A) Negative, Indeterminate [facility] Swab 01/18/2025 10:3 5 AM EST us Yi Ch MD POINT OF CARE TEST EN TER/EDIT ORDERABLES Final Result Performing Organization Address [facility] Co de Phone Number [facility] [address] [place] [phone] * POCT Rapid COVID Ag (01/18/2025 [...] Blood 10/28/2024 8:59 AM EST Cathleen Lomax [facility] POINT OF CARE TEST ENTER/ EDIT ORDERABLES Final Result * Lipid Panel, Standard (05/16/2024 11:43 AM EDT) Triglycerides 85 <150 mg/dL [facility] Comment:Desirable Triglyceri de: less than 150 mg/dLBorderline High Triglyceride 150-199 mg/dLHigh Triglyceride: 200-499 mg/dLVery High Triglyceride: greater than or equal to 5OO mg/dL Cholesterol 124 <200 mg/dL [facility] Comment:Desirable Cholestero l: less than 200 mg/dLBorderline High Cholesterol: 200-239 mg/dLHigh Cholesterol: greater than 239 mg/dL LDL Cholesterol Calculated 62 <100 mg/dL [facility] Comment:Desirable LDL: less than 100 mg/dLNear Optimal/Above Optimal LDL: 110- 129 mg/dLBorderline High LDL: 130-159 mg/dLHigh LDL: 160-189 mg/dLVery High LDL: greater than or equal to 190 mg/dL HDL Cholesterol 45 >40 mg/dL [facility] Comment:Desirable HDL: great er than 40 mg/dL Note: This HDL assay may give artificially low results in patients with liver disease. Blood Venous blood specimen / Unknown 05/16/2024 11:43 AM EDT 05/16/2024 11:49 AM EDT Yi Cleary MD LAB BLOOD ORDERAB LES Final Result Performing Organization Address City/[facility]/ZIP Co de Phone Number [facility] [address] [place] [phone] * Albumin, Random Urine W/Creatinine (01/12/2024 3:10 PM EST) Creatinine, Urine 31.68 mg/dL [facility] Microalbumin Urine 5.0 mg/L [facility] Microalbum Creatinine Ratio Ur 15.7 <30 ug/mg cr [facility] Comment:Albumin/Creatinine R atio Reference Ranges: Normal: < 30 ug/mg creatinine Microalbuminuria: 30 - 300 ug/mg creatinineClinical Albuminuria: > 300 ug/mg creatinine 01/12/2024 3:10 PM EST 01/12/2024 4:41 PM EST Yi Cleary MD LAB URINE ORDERAB LES Final Result Performing Organization Address [facility] Co de Phone Number [facility] [address] [place] [phone] * Hepatitis C Antibody with Reflex to HCV, RNA, Quantitative, Real-Time PCR (01/12/2024 8:56 AM EST) Hepatitis C Antibody Nonreactive Nonreactive [facility] Comment:Antibodies to HCV no t detected; does not exclude early acuteHCV infection. Blood Venous blood specimen / Unknown 01/12/2024 8:56 AM EST 01/12/2024 11:12 AM EST Yi Cleary MD LAB BLOOD ORDERAB LES Final Result Performing Organization Address City/[facility]/ZIP Co de Phone Number [facility] [address] [place] [phone] * THINPREP PAP (10/25/2020 10:02 AM [...] historic and ?? current clinical information. ?? Sheeter Machine Operator : SEE COMMENT [facility] Comment: QUIN[place], CT(ASCP) CT screening location: [address] ??[address] Interpretation/R esult: Negative for intraepithelial lesion or [...] Peter CADET LAB PATHOLOGY ORDERABLES Final Result [facility] [address] * HPV mRNA E6/E7 (10/25/2020 10:02 AM EST) HPV nRNA E6/E7 Not Detected Not Detected [facility] Comment: This test was performed using the APTIMA HPV Assay ([employer] This assay detects E6/E7 viral messenger RNA (mRNA) from 14 high-risk HPV types (16,18,31,33,35,39,45,51,52,56,58,59,66,68). ?? The analytical performance characteristics of this assay have been determined by [employer]. The modifications have not been cleared or approved by the FDA. This assay has been validated pursuant to the CLIA regulations and is used for clinical purposes. 10/25/2020 10:0 2 AM EST us Peter Tate CNM LAB BLOOD ORDERABLES Cammy donny Result [facility] [address] from Last 3 Months or Most Recently Relevant to Health Maintenance Insurance [employer] Care Teams Pediatric Neurologist Relationship Specialty Start Date End Date Yi Thompson MD [address] [place] [phone] PCP - General Internal Medicine 08/20/23
--- OUTSIDE RECORDS SUMMARY | 2025-03-30 13:03 | XMS_ITS | Data Portability ---
Author Organization [place] [facility], Allergy Address [address] [address] Assessment No assessment recorded. Plan of Treatment [...] contr ast No observ ation record ed. [facility] ([facility]) [address] [address], [place], [address], 07/12/2024 17:28:21 07/12/20 24 03/07/2024 CT, neck, soft tissu e, w/ contr ast No observ ation record ed. [email or web address] Not Available 06/17 14:31:41 Result Notes None [...] Available [employer] 4 03:27:19 Oropharyn geal dysphagia [id number] Active 2023 CHANTEL MEYER MD [address] [facility],[place] [address], [facility] [place], [address] , [facility] - [facility] 4 14:16:46 Acquired vocal cord palsy 726211017 Active 2023 CHANTEL MEYER MD [address] [facility],[place] [address], [place], [address] , [facility] - [facility] 4 14:27:26 Problem Notes None recorded. Procedures Surgical History Date Name Laterality Status Provider Name and Address Organization Details Recorded Time 07/12/2024 FFL_RE completed CHANTEL MEYER MD [address] [facility],[place] [address], [place], [address], [facility] 07/12/2024 14:20:56 Imaging Results Imaging Date Name Status LastModified by Organiz ation Details LastModified Time 03/07/2024 CT, neck, soft tissue, w/ contrast completed [facility] ([facility]) [address], [place], [address], 07/12/2024 17:28:21 03/07/2024 CT, neck, soft tissue, w/ contrast completed [email or web address] Information not available 07/12/2024 14:31:41 Procedure Notes None recorded. Medical Equipment None Reported. Allergies Allergen ID Allergen Name Allergen Category Reaction Reaction Severity Criticality Documentation Date Start Date Code Code System Note Provider Name and Address Organization Details Recorded Time 99788 Product containin g penicilli n (product) medicatio n other Not available Not available 03/29/2024 75762 8001 SNOMED React ion: unkno wn, unspe cifie d;; Not Available [facility] 01:03:20 Medications Name Sig Start Date Stop Date Status Note LastModified by Organization Details LastModified Time medbox status USE DIRECTED active Not Available Not Available No t Available freestyle lite test strips strp active Not Available Not Available Not Available losartan 50 mg tablet active Medicati on ID: 68651 Br and Name: losartan Send Method: E-Prescr [...] 40 mg tablet active Medicati on ID: 11315 Br and Name: lovastat in Send Method: E-Prescr ibed Sub s Allowed: subs OK Medic ationGen ericName : lovastat in Not Available Not Available Not Available amlodipin e 5 mg tablet active Medicati on ID: 13764 Br and Name: amlodipi ne Send Method: [...] Not Available Not Available No t Available [place] Thyroid 15 mg tablet active Medicati on ID: 29804 Br and Name: [place] Thyroid Send Method: E-Prescr ibed Sub s Allowed: subs OK Medic ationGen ericName : [place] Thyroid Not Available Not Available Not Available amitripty line 25 mg tablet active Medicati on ID: 06176 Br and Name: amitript yline Se nd Method: E-Prescr ibed Sub s Allowed: subs OK Medic ationGen ericName : amitript yline Not Available Not Available Not Available Protonix 40 mg intraveno us solution active Medicati on ID: 17073 Br and Name: Protonix Send Method: E-Prescr [...] 150 mg capsule active Medicati on ID: 63358 Br and Name: ranitidi ne HCl Send Method: E-Prescr ibed Sub s Allowed: subs OK Medic ationGen ericName : ranitidi ne HCl Not Available Not Available Not Available hydrochlo rothiazid e 25 mg tablet active Medicati on ID: 84011 Br and Name: hydrochl orothiaz ro Send [...] 17 gram/dose oral powder USE DIRECTED BY [facility] active Not Available Not Available No [...] release 24hr (osmotic) active Medicati on ID: 25650 Br and Name: meturbano forrest Send Method: [...] tablet,de layed release [place] Medicati on ID: 02351 Du ration Value: 30 Brand Name: omeprazo le Send Method: E-Prescr ibed Sub s Allowed: subs OK Speci al Instruct ion: Take 1 tablet by mouth every day before a meal [facility] Jessica me: omeprazo le Not Available Not [...] Updated DateTime 07/12/2024 165.1 cm 27.3 kg/m2 87762.15 g [place] [facility] 07/12/2024 14:07:22 Social History None recorded. Functional Status None recorded. Mental Status None recorded. Family History Nothing Reported. Medical History No medical history recorded. Gynecological HistoryNo gynecological history recorded. Obstetrics History GPAL:G 0 P 0 0 0 0 Past Encounters Encounter ID Performer Location Encounter Start Date Encounter Closed Date Diagnosis/Indication Diagnosis SNOMED-CT Code Diagnosis ICD10 Code Diagnosis Note [id number] CHANTEL MEYER MD [facility] [address] [address] 07/12/2024 13:49:31 07/12/2024 16:53:30 Oropharyngeal dysphagia 76094002 R13.12 Likely due to esophageal dysmotilit y. VC paralysis is a factor but doesn't explain her dysphagia to solids. I recommend she discuss GI referral with her PCP. I would be glad to see her as needed. I personally reviewed her imaging reports. Acquired v ocal cord palsy [id number] J38.00 Likely from initial surgery 14 years [...] Name 07/12/2024 1 [facility] [place] [facility] [id number] Giuseppe Rodriguez [id number] Sapna Garcia 07/12/2024 1 [facility] [employer] [id number] Giuseppe Rodriguez [id number] Sapna Garcia Notes Date Note Type Note Provider Name and Address Organization Details Recorded Time 07/12/2024 text/html She has a histor y of thyroid cancer. She had thyroidectomy in [place] 14 years ago. She had repeat surgery here 5-6 years ago. She reports her swallowing has been a problem since her first surgery. She had a swallow study at [facility]. She feels like food gets stuck. Has occasional choking with liquids. She has never smoked. She denies throat pain and SOB. I reviewed an Upper GI series which showed esophageal dysmotility. I also reviewed her CT neck with 02/2024 which showed possible right vocal cord paralysis. contrast CHANTEL MEYER MD [address] [place] [address], [place], [address], [facility] - [facility] 07/12/2024 14:28:36 OBGyn Episode No OBEpisode recorded.
--- OUTSIDE RECORDS SUMMARY | 2025-03-30 13:03 | XMS_ITS | Encounter Summary ---
Author Organization [email or web address] Address [address] [place] [address] Care Team Providers Care Security Professionals Name Role Phone Juliet Bird [facility] Primary Care Provider +1- [phone] Yi Thompson MD Primary Care Pro vider Reason for Visit * Reason Comments Med Refill Encounter Details Date Type Department Care Team (Late Contact Info) Description 01/28/2023 Refill [facility] 230 [place] [address] [facility] [address] [place], [place] [phone] Primary hypertension Social History Tobacco Use Types [...] Description 04/06/2025 11:15 AM EDT Office Visit [facility] [address] [place] [address] [phone] Yi Thompson MD 230 [place], [place] [phone] 04/07/2025 10:00 AM EDT Medication Management [facility] 230 [place], [place] [phone] documented as of this encounter Visit Diagnoses Diagnosis Primary hypertension Unspecified essential hypertension documented in this encounter Care Teams Security Professionals Relationship Specialty Start Date End Date Juliet Bird FNP PCP - General Family Medicine 01/22/23 08/19/23 Yi Thompson MD 230 [place] [address] PCP - General Internal Medicine 08/20/23 documented as of this encounter
--- OUTSIDE RECORDS SUMMARY | 2025-03-30 13:03 | XMS_ITS | Encounter Summary ---
Author Organization [employer] Address [address] [place] [address] Care Team Providers Care Compensation Intern Name Role Phone Juliet Bird Primary Care Provider +1- [phone] Yi Thompson MD Primary Care Pro vider Reason for Visit * Reason Comments Med Refill Encounter Details Date Type Department Care Team (Late Contact Info) Description 06/28/2023 Refill [facility] [address] [place] [address] Juliet Bird FNP [address] [place] [address] Dept [place] [address] Social History Tobacco Use Types Packs/Day Years [...] Description 04/06/2025 11:15 AM EDT Office Visit [facility] [address] [place] [address] Yi Thompson MD 230 [place], [place] [phone] 04/07/2025 10:00 AM EDT Medication Management [facility] 230 [place] [address] documented as of this encounter Visit Diagnoses Not on filedocumented in this encounter Care Teams Compensation Intern Relationship Specialty Start Date End Date Juliet Bidr FNP PCP - General Family Medicine 01/22/23 08/19/23 Yi Thompson MD 230 [place] [address] PCP - General Internal Medicine 08/20/23 documented as of this encounter
--- OUTSIDE RECORDS SUMMARY | 2025-03-30 13:03 | XMS_ITS | Encounter Summary ---
Author Organization [employer] Address [address] [place] [address] Care Team Providers Care Eeg Technologist Name Role Phone Juliet Bird Primary Care Provider +1- [phone] Yi Thompson MD Primary Care Pro vider Reason for Visit * Reason Onset Date Comments triage 02/27/2023 Encounter Details Date Type Department Care Team (Late st Contact Info) Description 02/27/2023 Telephone [facility] 230 [place] [address] Juliet Bird FNP [address] [place] [address] Dept [place] [address] triage Social History Tobacco Use Types Packs/Day [...] 02/27/2023 4:58 PM EDT Triage call with [place] [employer] [place] [id number] Pt reports a couple of days of [...] now The caller accepted this outcome speaks faroese documented in this encounter Plan of Treatment Upcoming Encounters Date Type Department Care Team (Late st Contact Info) Description 04/06/2025 11:15 AM EDT Office Visit [facility] [address] [place] [address] Yi Thompson MD [address] [place] [address] 04/07/2025 10:00 AM EDT Medication Management [address] [address] documented as of this encounter Visit Diagnoses Not on filedocumented in this encounter Care Teams Eeg Technologist Relationship Specialty Start Date End Date Juliet Bird FNP PCP - General Family Medicine 01/22/23 08/19/23 Yi Thompson MD [address] [place] [address] PCP - General Internal Medicine 08/20/23 documented as of this encounter
--- OUTSIDE RECORDS SUMMARY | 2025-03-30 13:03 | XMS_ITS | Encounter Summary ---
Author Organization [employer] Address [address] [place] [address] Care Team Providers Care Linoleum Installer Name Role Phone Yi Thompson MD Primary Care Pro vider Reason for Visit * Reason Comments Med Change Request Encounter Details Date Type Department Care Team ([facility] Contact Info) Description 03/15/2024 Refill [facility] 230 [place] [address] Leticia Plunkett, ANP 230 [place] [address] Sinus pressure Social History Tobacco Use Types [...] Description 04/06/2025 11:15 AM EDT Office Visit [facility] [address] [place] [address] Yi Thompson MD [address] [place] [address] 04/07/2025 10:00 AM EDT Medication Management [address] [address] documented as of this encounter Goals Goal [...] documented as of this encounter Care Teams Linoleum Installer Relationship Specialty Start Date End Date Yi Thompson MD [address] [place] [address] PCP - General Internal Medicine 08/20/23 documented as of this encounter
--- OUTSIDE RECORDS SUMMARY | 2025-03-30 13:03 | XMS_ITS | Encounter Summary ---
Author Organization [employer] Address [address] [place] [address] Care Team Providers Care Scrum Master Name Role Phone Yi Thompson MD Primary Care Pro vider Reason for Visit * Reason Onset Date Comments Nurse Triage 02/15/2024 Encounter Details Date Type Department Care Team ([facility] st Contact Info) Description 02/15/2024 Telephone [facility] 230 [place] [address] Yi Thompson MD 230 [place] [address] Nurse Triage Social History Tobacco Use Types [...] 02/15/2024 12:44 PM EDT Triage call with [place] Pressure [place] [id number] Pt reports headache frontal and back of [...] 400pm. Pt is advised to come to [facility] which is open till 8pm this [...] Tingling sensation The caller accepted this outcome Greenlandic speaker documented in this encounter Plan of Treatment Upcoming Encounters Date Type Department Care Team (Late st Contact Info) Description 04/06/2025 11:15 AM EDT Office Visit [facility] [address] [place] [address] Yi Thompson MD [address] [place] [address] 04/07/2025 10:00 AM EDT Medication Management [address] [address] documented as of this encounter Visit Diagnoses Not on filedocumented in this encounter Additional Health Concerns Assessment Noted Time PHQ-9 Depression Total Score: 1 01/13/20 24 12:16 PM EST documented as of this encounter Care Teams Scrum Master Relationship Specialty Start Date End Date Yi Thompson MD [address] [place] [address] PCP - General Internal Medicine 08/20/23 documented as of this encounter
--- OUTSIDE RECORDS SUMMARY | 2025-03-30 13:03 | XMS_ITS | Encounter Summary ---
Author Organization [employer] Address [address] [place] [address] Care Team Providers Care Jalousies Installer Name Role Phone Yi Thompson MD Primary Care Pro vider Reason for Visit * Reason Comments Med Change Request Encounter Details Date Type Department Care Team ([facility] Contact Info) Description 11/11/2023 Refill [facility] 230 [place] [address] [facility] 230 [place] [address] Viral upper respiratory illness Social History Tobacco [...] Description 04/06/2025 11:15 AM EDT Office Visit [facility] [address] [place] [address] Yi Thompson MD [address] [place] [address] 04/07/2025 10:00 AM EDT Medication Management [facility] [address] [place] [address] documented as of this encounter Visit Diagnoses Diagnosis Viral upper respiratory illness documented in this encounter Care Teams Jalousies Installer Relationship Specialty Start Date End Date Yi Thompson MD [address] [place] [address] PCP - General Internal Medicine 08/20/23 documented as of this encounter
--- OUTSIDE RECORDS SUMMARY | 2025-03-30 13:03 | XMS_ITS | Encounter Summary ---
Author Organization [employer] Address [address] [place] [address] Care Team Providers Care Automobile Contract Clerk Name Role Phone Yi Thompson MD Primary Care Pro vider Reason for Visit * Reason Comments Med Refill Encounter Details Date Type Department Care Team ([facility] Contact Info) Description 05/20/2024 Refill [facility] [address] [place] [address] Name, MD Ronny 230 [place] [address] Social History Tobacco Use Types Packs/Day Years [...] Description 04/06/2025 11:15 AM EDT Office Visit [address] [address] Yi Thompson MD [address] [place] [address] 04/07/2025 10:00 AM EDT Medication Management [address] [address] documented as of this encounter Goals Goal [...] documented as of this encounter Care Teams Automobile Contract Clerk Relationship Specialty Start Date End Date Yi Thompson MD [address] [place] [address] PCP - General Internal Medicine 08/20/23 documented as of this encounter
--- OUTSIDE RECORDS SUMMARY | 2025-03-30 13:03 | XMS_ITS | Encounter Summary ---
Author Organization [employer] Address [address] [place] [address] Care Team Providers Care Automobile Appraiser Name Role Phone Yi Thompson MD Primary Care Pro vider Reason for Visit * Reason Comments Med Refill Encounter Details Date Type Department Care Team ([facility] st Contact Info) Description 05/03/2024 Refill [facility] 230 [place] [address] Yi Thompson MD 230 [place] [address] Social History Tobacco Use Types Packs/Day Years [...] Description 04/06/2025 11:15 AM EDT Office Visit [address] [address] Yi Thompson MD [address] [place] [address] 04/07/2025 10:00 AM EDT Medication Management [address] [address] documented as of this encounter Goals Goal [...] as of this encounter Care Teams Automobile Appraiser Relationship Specialty Start Date End Date Yi Thompson MD [address] [place] [address] PCP - General Internal Medicine 08/20/23 documented as of this encounter
--- OUTSIDE RECORDS SUMMARY | 2025-03-30 13:03 | XMS_ITS | Encounter Summary ---
Author Organization [employer] Address [address] [place] [address] Care Team Providers Care Habilitation Specialist Name Role Phone Yi Thompson MD Primary Care Pro vider Encounter Details Date Type Department Care Team (Late st Contact Info) Description 11/06/2024 Orders Only [facility] [address] [place] [address] Provider, MD Lux Social History Tobacco Use [...] Description 04/06/2025 11:15 AM EDT Office Visit [facility] [address] [place] [address] Yi Thompson MD [address] [place] [address] 04/07/2025 10:00 AM EDT Medication Management [address] [address] documented as of this encounter Goals Goal [...] documented as of this encounter Care Teams Habilitation Specialist Relationship Specialty Start Date End Date Yi Thompson MD [address] [place] [address] PCP - General Internal Medicine 08/20/23 documented as of this encounter
--- OUTSIDE RECORDS SUMMARY | 2025-03-30 13:03 | XMS_ITS | Encounter Summary ---
Author Organization [employer] Address [address] [place] [address] Care Team Providers Care Stick Roller Name Role Phone Yi Thompson MD Primary Care Pro vider Reason for Visit * Reason Comments Med Refill Encounter Details Date Type Department Care Team ([facility] st Contact Info) Description 09/12/2024 Refill [facility] 230 [place] [address] Yi Thompson MD 230 [place] [address] Type 2 diabetes mellitus without complication, without long-term current use of insulin ([facility]) Social History Tobacco Use Types Packs/Day Years [...] the past 12 months, has t he [employer], gas, oil or water company threatened to [...] Description 04/06/2025 11:15 AM EDT Office Visit [address] [address] Yi Thompson MD [address] [place] [address] 04/07/2025 10:00 AM EDT Medication Management [address] [address] documented as of this encounter Goals Goal Patient Goal Type Associated Problems Recent Progress Patient-Stated? Author Blood Pressure < 140/90 Blood Pressure 124/80(2024 10:11 AM EDT) No Jn Shah Hemoglobin A1c < 7 Result Component 6.8( 8:59 AM EST) Jn Petit documented as of this encounter Visit Diagnoses Diagnosis Type 2 diabetes mellitus without complication, without long-term current use of insulin ([facility]) documented in this encounter Additional Health Concerns Assessment Noted Time PHQ-9 Depression Total Score: 1 01/13/20 24 12:16 PM EST documented as of this encounter Care Teams Stick Roller Relationship Specialty Start Date End Date Yi Thompson MD [address] [place] [address] PCP - General Internal Medicine 08/20/23 documented as of this encounter
--- OUTSIDE RECORDS SUMMARY | 2025-03-30 13:03 | XMS_ITS | Encounter Summary ---
Author Organization [email or web address] Address [address] [place] [address] Care Team Providers Care Research And Development Director Name Role Phone Yi Thompson MD Primary Care Pro vider Reason for Visit * Reason Comments Med Refill Encounter Details Date Type Department Care Team ([facility] st Contact Info) Description 09/15/2023 Refill [facility] 230 [place] [address] Juliet Bird, MARY ELLEN [address] [place] [address] Dept [place] [address] Primary hypertension; Type 2 diabetes mellitus without complication, without long-term current use of insulin ([facility]) Social History Tobacco Use Types [...] Description 04/06/2025 11:15 AM EDT Office Visit [facility] [address] [place] [address] Yi Thompson MD [address] [place] [address] 04/07/2025 10:00 AM EDT Medication Management [address] [address] documented as of this encounter Visit Diagnoses Diagnosis Primary hypertension Unspecified essential hypertension Type 2 diabetes mellitus without complication, without long-term current use of insulin ([facility]) documented in this encounter Care Teams Research And Development Director Relationship Specialty Start Date End Date Yi Thompson MD [address] [place] [address] PCP - General Internal Medicine 08/20/23 documented as of this encounter
--- OUTSIDE RECORDS SUMMARY | 2025-03-30 13:03 | XMS_ITS | Encounter Summary ---
Author Organization [employer] Address [address] [place] [address] Care Team Providers Care Overhead Cleaner Maintainer Name Role Phone Yi Thompson MD Primary Care Pro vider Reason for Visit * Reason Comments Med Refill Encounter Details Date Type Department Care Team ([facility] st Contact Info) Description 06/02/2024 Refill [facility] 230 [place] [address] Yi Thompson MD 230 [place] [address] Social History Tobacco Use Types Packs/Day Years [...] Description 04/06/2025 11:15 AM EDT Office Visit [address] [address] Yi Thompson MD [address] [place] [address] 04/07/2025 10:00 AM EDT Medication Management [address] [address] documented as of this encounter Goals Goal [...] documented as of this encounter Care Teams Overhead Cleaner Maintainer Relationship Specialty Start Date End Date Yi Thompson MD [address] [place] [address] PCP - General Internal Medicine 08/20/23 documented as of this encounter
--- OUTSIDE RECORDS SUMMARY | 2025-03-30 13:03 | XMS_ITS | Encounter Summary ---
Author Organization [employer] Address [address] [place] [address] Care Team Providers Care Consumer Loan Manager Name Role Phone Yi Thompson MD Primary Care Pro vider Reason for Visit * Reason Comments Med Change Request Encounter Details Date Type Department Care Team ([facility] Contact Info) Description 11/08/2023 Refill [facility] 230 [place] [address] [facility] 230 [place] [address] Viral upper respiratory illness Social History Tobacco [...] Description 04/06/2025 11:15 AM EDT Office Visit [facility] [address] [place] [address] Yi Thompson MD [address] [place] [address] 04/07/2025 10:00 AM EDT Medication Management [facility] [address] [place] [address] documented as of this encounter Visit Diagnoses Diagnosis Viral upper respiratory illness documented in this encounter Care Teams Consumer Loan Manager Relationship Specialty Start Date End Date Yi Thompson MD [address] [place] [address] PCP - General Internal Medicine 08/20/23 documented as of this encounter
== END 2025-03-30 12:07 | disposition home or self-care (01) ==
LOC: HO.HOSX 12:06
PROVIDERS: Visit Provider Orthopaedic Surgery
DX: R20.0 Anesthesia of skin (principal); R20.2 Paresthesia of skin; M25.561 Pain in right knee; M25.562 Pain in left knee
CPT/HCPCS: 73562

== ENCOUNTER 2025-03-30 13:34 | Outpatient (AMB) | payer OTHER, SELFPAY ==
--- NOTE | 2025-03-30 13:37 | MHC.OFFVIS ---
Vital Signs 03/30/25 13:51 Height 5 ft 4 in Weight 156 lb BMI 26.8 Intake Visit Reasons: OV- B/L Knee OA Interested in TKA Intake Note: Sapna is a 64 year old female who presents today for a follow up of her bilateral knee OA. Allergies Penicillins [PENICILLINS] Allergy (Intermediate, Verified 03/28/25 09:57) HIVES HPI HPI OV- B/L Knee OA Interested in TKA: Details: Sapna comes in today extensively for her knees but reports feeling loss of balance and weakness in the upper extremities. She states she has numbness and tingling in the arms and this is been going on for about 2 months. [facility] Medical History Headache Cognitive disorder Cervical dystonia Palpitations Non-cardiac chest pain Pelvic pain Leg pain Bladder pain Lower abdominal pain Gross hematuria Toe pain Right knee pain Effusion, right knee Dysuria Pelvic pain in female Hematuria Mass of spine Hematuria Type 2 diabetes mellitus with polyneuropathy DM2 (diabetes mellitus, type 2) Nail deformity Paronychia Failure of spinal cord stimulator Thymoma Pulmonary nodules Thyroid cancer Blood in urine Constipation by delayed colonic transit Tubular adenoma of colon Gastritis Hypertension Dyslipidemia Post-surgical hypothyroidism Primary thyroid cancer Vitamin D deficiency Surgical History History of thymectomy History of back surgery Hx of colonoscopy Hx of thyroidectomy Hx of hernia repair Hx of section Hx of hysterectomy History of esophagogastroduodenoscopy (EGD) Family History Father Stroke Heart attack Mother Diabetes mellitus Family/Other Family history of cancer Sister Stomach cancer Family/Other Thyroid cancer Social History Household Members: Spouse, Children and Other Are you a primary long term care administrator to a significant other at home: No Do you presently have visiting nurse or other home services: No Alcohol intake: unknown Patient Tobacco Use Status: Former Tobacco user Tobacco use type: Cigarette Second Hand Smoke Exposure: No Sexual orientation: Straight/Heterosexual Gender identity: Female Physical Exam Vital Signs: BMI result Body Mass Index 26.8 Extrem Other: She is unsteady when she walks although she has a negative Madsen's but positive Spurling's. 5/5 strength bilateral upper extremities. Assessment & Plan Assessment & Plan (1) Bilateral numbness and tingling of arms and legs: Code(s): R20.0 - Anesthesia of skin; R20.2 - Paresthesia of skin Category: Medical Plan: 64-year-old with bilateral arm numbness and tingling. This is a relatively recent according to her and so were MRI of the neck was ordered. Orders: Orders XR knee LT 2V 03/30/25 Z98.890 - Other specified postprocedural states MR cervical spine wo con 03/30/25 R20.0 - Anesthesia of skin, R20.2 - Paresthesia of skin XR knee RT 3V 03/30/25 M25.561 - Pain in right knee XR Knee Kavon 3V 03/30/25 M25.569 - Pain in unspecified knee Coding Level of Care Code Est Pt Level 4 (13504) Diagnoses Bilateral numbness and tingling of arms and legs R20.0; R20.2
[2025-03-30 13:51] VITALS: BMI 26.8
--- OUTSIDE RECORDS SUMMARY | 2025-03-30 14:12 | XMS_ITS | Encounter Summary ---
Author Organization [employer] Address [address] [place] [address] Care Team Providers Care Ski Topper Name Role Phone Yi Thompson MD Primary Care Pro vider Reason for Visit * Reason Comments Med Refill Encounter Details Date Type Department Care Team ([facility] st Contact Info) Description 06/02/2024 Refill [facility] 230 [place] [address] Yi Thompson MD 230 [place] [address] Social History Tobacco Use Types Packs/Day Years [...] Description 04/06/2025 11:15 AM EDT Office Visit [address] [address] Yi Thompson MD [address] [place] [address] 04/07/2025 10:00 AM EDT Medication Management [address] [address] documented as of this encounter Goals Goal [...] documented as of this encounter Care Teams Ski Topper Relationship Specialty Start Date End Date Yi Thompson MD [address] [place] [address] PCP - General Internal Medicine 08/20/23 documented as of this encounter
--- OUTSIDE RECORDS SUMMARY | 2025-03-30 14:12 | XMS_ITS | Encounter Summary ---
Author Organization [employer] Address [address] [place] [address] Care Team Providers Care Ekg/Ecg Technician Name Role Phone Yi Thompson MD Primary Care Pro vider Encounter Details Date Type Department Care Team (Late st Contact Info) Description 11/06/2024 Orders Only [facility] 230 [place] [address] Provider, MD Lux Social History Tobacco Use [...] 11:15 AM EDT Office Visit [facility] [address] [place] [address] Yi Thompson MD [address] [place] [address] 04/07/2025 10:00 AM EDT Medication Management [address] [address] documented as of this encounter Goals Goal [...] documented as of this encounter Care Teams Ekg/Ecg Technician Relationship Specialty Start Date End Date Yi Thompson MD [address] [place] [address] PCP - General Internal Medicine 08/20/23 documented as of this encounter
--- OUTSIDE RECORDS SUMMARY | 2025-03-30 14:12 | XMS_ITS | Encounter Summary ---
Author Organization [employer] Address [address] [place] [address] Care Team Providers Care Caster Helper Name Role Phone Yi Thompson MD Primary Care Pro vider Encounter Details Date Type Department Care Team ([facility] st Contact Info) Description 03/30/2025 Orders Only [facility] 230 [place] [address] Maria Del Carmen Meza MD 230 [place] [address] Hypertension (Primary Dx) Social History Tobacco Use Types [...] 04/06/2025 11:15 AM EDT Office Visit [address] [address] Yi Thompson MD [address] [place] [address] 04/07/2025 10:00 AM EDT Medication Management [address] [address] documented as of this encounter Goals Goal Patient Goal Type Associated Problems Recent Progress Patient-Stated? Author Blood Pressure < 140/90 Blood Pressure 124/80(2024 10:11 AM EDT) No Jn Shah Hemoglobin A1c < 7 Result Component 6.8( 8:59 AM EST) No Jn Shah documented as of this encounter Visit Diagnoses Diagnosis Hypertension- Primary Unspecified essential hypertension documented in this encounter Additional Health Concerns Assessment Noted Time PHQ-9 Depression Total Score: 1 01/13/20 24 12:16 PM EST documented as of this encounter Care Teams Caster Helper Relationship Specialty Start Date End Date Yi Thompson MD [address] [place] [address] PCP - General Internal Medicine 08/20/23 documented as of this encounter
--- OUTSIDE RECORDS SUMMARY | 2025-03-30 14:12 | XMS_ITS | Encounter Summary ---
Author Organization [employer] Address [address] [place] [address] Care Team Providers Care Hedge Fund Accountant Name Role Phone Yi Thompson MD Primary Care Pro vider Reason for Visit * Reason Comments Med Refill Encounter Details Date Type Department Care Team ([facility] st Contact Info) Description 09/12/2024 Refill [facility] 230 [place] [address] Yi Thompson MD 230 [place] [address] Type 2 diabetes mellitus without complication, without long-term current use of insulin ([facility]) Social History Tobacco Use Types [...] the past 12 months, has t he [employer], gas, oil or water company threatened to [...] Description 04/06/2025 11:15 AM EDT Office Visit [address] [address] Yi Thompson MD [address] [place] [address] 04/07/2025 10:00 AM EDT Medication Management [address] [address] documented as of this encounter Goals Goal [...] of insulin ([facility]) documented in this encounter Additional Health Concerns Assessment Noted Time PHQ-9 Depression Total Score: 1 01/13/20 24 12:16 PM EST documented as of this encounter Care Teams Hedge Fund Accountant Relationship Specialty Start Date End Date Yi Thompson MD [address] [place] [address] PCP - General Internal Medicine 08/20/23 documented as of this encounter
--- OUTSIDE RECORDS SUMMARY | 2025-03-30 14:12 | XMS_ITS | Encounter Summary ---
Author Organization [employer] Address [address] [place] [address] Care Team Providers Care Snowmaker Name Role Phone Yi Thompson MD Primary Care Pro vider Reason for Visit * Reason Comments Med Change Request Encounter Details Date Type Department Care Team ([facility] Contact Info) Description 11/08/2023 Refill [facility] 230 [place] [address] [facility] 230 [place] [address] Viral upper respiratory illness Social History Tobacco [...] Description 04/06/2025 11:15 AM EDT Office Visit [facility] [address] [place] [address] Yi Thompson MD [address] [place] [address] 04/07/2025 10:00 AM EDT Medication Management [facility] [address] [place] [address] documented as of this encounter Visit Diagnoses Diagnosis Viral upper respiratory illness documented in this encounter Care Teams Snowmaker Relationship Specialty Start Date End Date Yi Thompson MD [address] [place] [address] PCP - General Internal Medicine 08/20/23 documented as of this encounter
--- OUTSIDE RECORDS SUMMARY | 2025-03-30 14:12 | XMS_ITS | Encounter Summary ---
Author Organization [employer] Address [address] [place] [address] Care Team Providers Care Garbage Truck Helper Name Role Phone Yi Thompson MD Primary Care Pro vider Reason for Visit * Reason Comments Med Refill Encounter Details Date Type Department Care Team ([facility] Contact Info) Description 05/20/2024 Refill [facility] [address] [place] [address] Name, MD Ronny 230 [place] [address] Social History Tobacco Use Types Packs/Day Years [...] Description 04/06/2025 11:15 AM EDT Office Visit [address] [address] Yi Thompson MD [address] [place] [address] 04/07/2025 10:00 AM EDT Medication Management [address] [address] documented as of this encounter Goals Goal [...] documented as of this encounter Care Teams Garbage Truck Helper Relationship Specialty Start Date End Date Yi Thompson MD [address] [place] [address] PCP - General Internal Medicine 08/20/23 documented as of this encounter
--- OUTSIDE RECORDS SUMMARY | 2025-03-30 14:12 | XMS_ITS | Encounter Summary ---
Author Organization [employer] Address [address] [place] [address] Care Team Providers Care Corpsman Name Role Phone Juliet Bird [facility] Primary Care Provider [phone]- [phone] Yi Thompson MD Primary Care Pro vider Reason for Visit * Reason Comments Med Refill Encounter Details Date Type Department Care Team (Late Contact Info) Description 01/28/2023 Refill [facility] 230 [place] [address] [facility] 230 [place], [place] [phone] Primary hypertension Social History Tobacco Use Types [...] Description 04/06/2025 11:15 AM EDT Office Visit [facility] [address] [place] [address] [phone] Yi Thompson MD 230 [place], [place] [phone] 04/07/2025 10:00 AM EDT Medication Management [facility] [address] [place], [place] [phone] documented as of this encounter Visit Diagnoses Diagnosis Primary hypertension Unspecified essential hypertension documented in this encounter Care Teams Corpsman Relationship Specialty Start Date End Date Juliet Bird FNP PCP - General Family Medicine 01/22/23 08/19/23 Yi Thompson MD 230 [place] [address] PCP - General Internal Medicine 08/20/23 documented as of this encounter
--- OUTSIDE RECORDS SUMMARY | 2025-03-30 14:12 | XMS_ITS | Encounter Summary ---
Author Organization [employer] Address [address] [place] [address] Care Team Providers Care Courtesy Van Driver Name Role Phone Yi Thompson MD Primary Care Pro vider Reason for Visit * Reason Comments Med Change Request Encounter Details Date Type Department Care Team ([facility] Contact Info) Description 11/11/2023 Refill [facility] 230 [place] [address] [facility] 230 [place] [address] Viral upper respiratory illness Social History Tobacco [...] Office Visit [facility] [address] [place] [address] Yi Thompson MD [address] [place] [address] 04/07/2025 10:00 AM EDT Medication Management [facility] [address] [place] [address] documented as of this encounter Visit Diagnoses Diagnosis Viral upper respiratory illness documented in this encounter Care Teams Courtesy Van Driver Relationship Specialty Start Date End Date Yi Thompson MD [address] [place] [address] PCP - General Internal Medicine 08/20/23 documented as of this encounter
--- OUTSIDE RECORDS SUMMARY | 2025-03-30 14:13 | XMS_ITS | Encounter Summary ---
Author Organization [employer] Address [address] [place] [address] Care Team Providers Care Landscape Gardener Name Role Phone Yi Thompson MD Primary Care Pro vider Reason for Visit * Reason Comments Med Refill Encounter Details Date Type Department Care Team ([facility] st Contact Info) Description 09/15/2023 Refill [facility] 230 [place] [address] Juliet Bird, MARY ELLEN [address] [place] [address] Dept [place] [address] Primary hypertension; Type 2 diabetes mellitus without complication, without long-term current use of insulin ([facility]) Social History Tobacco Use Types [...] Description 04/06/2025 11:15 AM EDT Office Visit [facility] [address] [place] [address] Yi Thompson MD [address] [place] [address] 04/07/2025 10:00 AM EDT Medication Management [address] [address] documented as of this encounter Visit Diagnoses Diagnosis Primary hypertension Unspecified essential hypertension Type 2 diabetes mellitus without complication, without long-term current use of insulin ([facility]) documented in this encounter Care Teams Landscape Gardener Relationship Specialty Start Date End Date Yi Thompson MD [address] [place] [address] PCP - General Internal Medicine 08/20/23 documented as of this encounter
--- OUTSIDE RECORDS SUMMARY | 2025-03-30 14:13 | XMS_ITS | Encounter Summary ---
Author Organization [employer] Address [address] [place] [address] Care Team Providers Care Welder/Installer Name Role Phone Juliet Bird Primary Care Provider [phone]- [phone] Yi Thompson MD Primary Care Pro vider Reason for Visit * Reason Onset Date Comments triage 02/27/2023 Encounter Details Date Type Department Care Team (Late st Contact Info) Description 02/27/2023 Telephone [facility] 230 [place] [address] Juliet Bird FNP [address] [place] [address] [place] [address] triage Social History Tobacco Use Types Packs/Day [...] 02/27/2023 4:58 PM EDT Triage call with [place] Document Control Coordinator ID [id number] Pt reports a couple of days of [...] now The caller accepted this outcome speaks arabic documented in this encounter Plan of Treatment Upcoming Encounters Date Type Department Care Team (Late st Contact Info) Description 04/06/2025 11:15 AM EDT Office Visit [facility] [address] [place] [address] Yi Thompson MD [address] [place] [address] 04/07/2025 10:00 AM EDT Medication Management [address] [address] documented as of this encounter Visit Diagnoses Not on filedocumented in this encounter Care Teams Welder/Installer Relationship Specialty Start Date End Date Juliet Bird FNP PCP - General Family Medicine 01/22/23 08/19/23 Yi Thompson MD [address] [place] [address] PCP - General Internal Medicine 08/20/23 documented as of this encounter
--- OUTSIDE RECORDS SUMMARY | 2025-03-30 14:13 | XMS_ITS | Clinical Summary ---
Author Organization [employer] Address [address] [place] [address] Care Team Providers Care Head Sugar Reprocess Operator Name Role Phone Yi Thompson MD Primary Care Pro vider Allergies Active Allergy Reactions Criticality Noted Date Comments Penicillins Hives High 12/28/2013 Other reaction(s): SWELLING , Unknown Other reaction(s): swelling pt received dose of cefazolin pre-op 07/04. Per CAT Britton, pt tolerated without issue Medications Blood Glucose Monitoring Suppl (FreeStyle [place] Lite) w/Device kit USE DIRECTED 2 Active [...] complication, without long-term current use of insulin ([facility]) Use 1 by To Skin route 4 [...] complication, without long-term current use of insulin ([facility]) TAKE 1 TABLET BY MOUTH TWICE DAILY [...] of lumbar region, unspecified whether pain present,Lumbar radiculopathy,Tie Carrier virgil right-sided low back pain with right-sided [...] Consideration for PT once patient returns from [facility] in January. Chest pain at rest [...] 09/17/2023 Forgetfulness 04/15/2023 Overview (08/20/2023): Seen at [facility] on 07/15/2020 for right sided facial [...] for vascular referral once patient returns from [facility] in January. Irritable bowel syndrome with [...] Department Care Team Description 03/30/2025 Orders Only [facility] [address] [place] [address] Maria Del Carmen Meza MD Hypertension (Primary Dx) 02/21/2025 10:00 AM EDT Office Visit [facility] [address] [place] [address] Maximino Rasmussen MD H/O thrombophlebitis (Primary Dx); Left elbow pain 02/16/2025 Orders Only [facility] [address] [place] [address] Maximino Rasmussen MD 02/15/2025 Refill [facility] [address] [place] [address] 12184 Yi Thompson MD 02/14/2025 Travel 02/14/2025 Telephone [facility] [address] [place] [address]39[address] Maximino Rasmussen MD 02/13/2025 Telephone [facility] [address] [place] [address] Posrha Curtis, CAT Plan of Care 02/13/2025 Orders Only [facility] [address] [place] [address] Maximino Rasmussen MD Superficial thrombophlebitis of left upper extremity (Primary Dx) 02/10/2025 11:20 AM EDT Office Visit [facility] [address] [place] [address] Maximino Rasmussen MD Nonintractable episodic headache, unspecified headache type (Primary Dx); Left arm pain 02/10/2025 Telephone [facility] [address] [place] [address]18[address] Porsha Curtis, CAT Results 02/10/2025 Telephone [facility] [address] [place] [address] Porsha Curtis, CAT Recent [facility] 02/10/[address] [address] Yi Thompson MD Nurse Triage 02/07/[address] [address] Diana Beltran, CAT Results 02/06/2025 Orders Only [address] [address] Peter Tate CNM Breast pain, left (Primary Dx) 02/06/[address] [address] Yi Thompson MD Lab Orders 01/26/2025 Refill [facility] [address] [place] [address] [facility] 01/18/2025 10:20 AM EST Office Visit [facility] [address] [place] [address] Yi Culp MD Influenza A (Primary Dx); Cough in adult patient 01/18/[address] [address] Yi Thompson MD Nurse Triage 01/05/2025 Refill [facility] [address] [place] [address] Tala Armstrong, CAT from Last 3 Months [...] Description 04/06/2025 11:15 AM EDT Office Visit [facility] [address] [place] [address] Yi Thompson MD [address] [place] [address] 04/07/2025 10:00 AM EDT Medication Management [address] [address] Health Maintenance Due Date Last Done Comments [...] EDT Narrative 02/17/2025 8:25 AM EDT ? [facility] ?[address] ?[place] [address] ? CT Scan Report ? Signed ? Patient: Fany Garcia,Sapna Sands ?MR#: M ?? [id number] ? : 1960 ?Acct:[id number] ? Age/Sex: 64 / F ?ADM Date: 04/03/25 ? Loc: HO.CT ? Attending Dr: Ganesh Arias MD ? Ordering Physician: Ganesh Arias MD ?? Date of Service: 02/16/25 ?? Procedure(s): CT chest wo IV con ?? Accession Number(s): [id number] ? cc: Yi Thompson MD; Ganesh Arias MD ? Report Number: ?? [id number]: Total DLP = ??111.00 mGy-cm ? CLINICAL [...] ? DD/ 3 ? TD/TT: 02/17/25823 ? Raspberry Checker: ? Procedure Note Rocio Yuan - 02/17/[address] [place] [address] [address] Scan Report Signed Patient: Sapna Herzog CMR#: M [id number] : 9Acct:[id number] Age/Sex: 64 / FADM Date: 02/16/25 Loc: HO.CT Attending Dr: Ganesh Arias MD Ordering Physician: Ganesh Arias MD Date of Service: 02/16/25 Procedure(s): CT chest wo IV con Accession Number(s): [id number] cc: Yi Thompson MD; Ganesh Arias MD Report Number: [id number]: Total DLP = 111.00 mGy-cm CLINICAL HISTORY: [...] in OV> 02/17/25824 DD/ 3 TD/TT: 02/17/25823 Raspberry Checker: [facility] External Provider IMG CT PROCEDURES Final Result * US DOPPLER EXT UPPER VENOUS LEFT (02/16/2025 2:25 PM EDT) Only the most recent of2 resultswithin the time period is included. Anatomical Region Laterality Modality Body Ultrasound 02/16/2025 2:25 PM EDT Narrative 02/16/2025 3:50 PM EDT ? [facility] ?[address] ?[place] [address] ? Ultrasound Report ? Signed ? Patient: Sapna Herzog ?MR#: M ?? [id number] ? : 1960 ?Acct:[id number] ? Age/Sex: 64 / F ?ADM Date: 02/16/25 ? Loc: HO.CT ? Attending Dr: Ganesh Arias MD ? Ordering Physician: MAXIMINO RASMUSSEN MD ?? Date of Service: 02/16/25 ?? Procedure(s): US venous duplex UE LT ?? Accession Number(s): [id number] ? cc: MAXIMINO RASMUSSEN MD; Yi Thompson [...] DD/ 1425 ? TD/TT: 02/16/25 1438 ? Raspberry Checker: ? Procedure Note Donramirezter, Image - 02/16/2025 [place] [address] Ultrasound Report Signed Patient: Sapna Herzog CMR#: M [id number] : 1960cct:[id number] Age/Sex: 64 / FADM Date: 02/16/25 Loc: HO.CT Attending Dr: Ganesh Arias MD Ordering Physician: MAXIMINO RASMUSSEN MD Date of Service: 02/16/25 Procedure(s): US venous duplex UE LT Accession Number(s): [id number] cc: MAXIMINO RASMUSSEN MD; Yi Thompson MD [...] 02/16/25 1546 DD/ 1425 TD/TT: 02/16/25 1438 Raspberry Checker: us Maximino Rasmussen MD Ghada PROCEDURES Edited Result - Final * XR Humerus Left (02/10/2025 2:58 PM EDT) Anatomical Region Laterality Modality Upper Extremities, Humerus Left Radio graphic Imaging 02/10/2025 2:58 PM EDT Narrative 02/10/2025 3:44 PM EDT ? [facility] ?[address] ?[place] [address] ?XRay Report ? Signed ? Patient: Sapna Herzog ?MR#: M ?? [id number] ? : 1960 ?Acct:[id number] ? Age/Sex: 64 / F ?ADM Date: 02/10/25 ? Loc: HO.US ? Attending Dr: Maximino Rasmussen MD ? Ordering Physician: MAXIMINO RASMUSSEN MD ?? Date of Service: 02/10/25 ?? Procedure(s): XR humerus LT ?? Accession Number(s): [id number] ? cc: MAXIMINO RASMUSSEN MD; Yi Thompson [...] DD/ 1458 ? TD/TT: 02/10/25 1505 ? Raspberry Checker: ? Procedure Note Donotkinginterpreter, Image - 02/10/[address] [address] XRay Report Signed Patient: Sapna Herzog CMR#: M [id number] : 1960cct:[id number] Age/Sex: 64 / FADM Date: 02/10/25 Loc: . Attending Dr: Maximino Rasmussen MD Ordering Physician: MAXIMINO RASMUSSEN MD Date of Service: 02/10/25 Procedure(s): XR humerus LT Accession Number(s): [id number] cc: MAXIMINO RASMUSSEN MD; Yi Thompson MD [...] 02/10/25 1541 DD/ 1458 TD/TT: 02/10/25 1505 Raspberry Checker: us Maximino Rasmussen MD IMG XR PROCEDURES Final Result * BI US Breast Limited Left (02/07/2025 10:44 AM EDT) Anatomical Region Laterality Modality Breast Left Ultrasound 02/07/2025 10:4 4 AM EDT Narrative 02/07/2025 11:07 AM EDT ? [place] [facility] ? [address] ?[place] [address] ? Ultrasound Report ? Signed ? Patient: Fany Radha,Sapna C ?MR#: M ?? [id number] ? : 1960 ?Acct:[id number] ? Age/Sex: 64 / F ?ADM Date: 02/07/25 ? Loc: HO.MAMMO ? Attending Dr: Peter Tate CNM ? Ordering Physician: PETER TATE CNM ?? Date of Service: 02/07/25 ?? Procedure(s): US breast LT limited mamm only ?? Accession Number(s): [id number] ? cc: Yi Thompson MD; PETER TATE [...] DD/ 1044 ? TD/TT: 02/07/25 1058 ? Raspberry Checker: ? Procedure Note Donotuseinterpreter, Image - 02/07/2025 [facility] [address] [place] [address] Ultrasound Report Signed Patient: Sapna Herzog CMR#: M [id number] : 9Acct:[id number] Age/Sex: 64 / FADM Date: 02/07/25 Loc: HO.MAMMO Attending Dr: Peter Tate CNM Ordering Physician: PETER TATE CNM Date of Service: 02/07/25 Procedure(s): US breast LT limited mamm only Accession Number(s): [id number] cc: Yi Thompson MD; PETER TATE CNM [...] 02/07/25 1104 DD/ 1044 TD/TT: 02/07/25 1058 Raspberry Checker: [facility] Edited Result - Final * BI Mammogram Diagnostic Tomosynthesis Bilateral (02/07/2025 10:10 AM EDT) Anatomical Region Laterality Modality Breast Bilateral Mammography 02/07/2025 10:1 0 AM EDT Narrative 02/07/2025 11:07 AM EDT ? [facility] ? [address] ?[place] [address] ?[phone] ? Mammography Report ? Signed ? Patient: Sapna Herzog ?MR#: M ?? [id number] ? : 1960 ?Acct:[id number] ? Age/Sex: 64 / F ?ADM Date: 03/25/25 ? Loc: HO.MAMMO ? Attending Dr: Peter Tate CNM ? Ordering Physician: PETER TATE CNM ?Results: 1 ?? Negative ? Date of Service: 02/07/25 ?Follow Up: 1 Year From Orig ?? inal Mammogram ? Procedure(s): MM tomosynthesis diagnostic BI ?? Accession Number(s): [id number] ? cc: Yi Thompson MD; PETER TATE [...] DD/ 1010 ? TD/TT: 02/07/25 1035 ? Raspberry Checker: ? Procedure Note Donotuseinterpreter, Image - 02/07/2025 [facility] [address] [place], [place] [address] Mammography Report Signed Patient: Sapna Herzog CMR#: M [id number] : 1960cct:[id number] Age/Sex: 64 / FADM Date: 02/07/25 Loc: HO.MAMMO Attending Dr: Peter Tate CNM Ordering Physician: PETER TATEesults: 1 Negative Date of Service: 02/07/25Follow Up: 1 Year From Orig ina Mammogram Procedure(s): MM tomosynthesis diagnostic BI Accession Number(s): [id number] cc: Yi Thompson MD; PETER TATE CNM [...] 02/07/25 1104 DD/ 1010 TD/TT: 02/07/25 1035 Raspberry Checker: us Peter CADET IMG BI PROCEDURES Edited Result - Final * Influenza B (ID NOW Rapid Molecular) (01/18/2025 10:35 AM EST) Influenza B Negative Negative, Indeterminate [facility] Swab 01/18/2025 10:3 5 AM EST us Yi Ch MD POINT OF CARE TEST EN TER/EDIT ORDERABLES Final Result Performing Organization Address [facility] Co de Phone Number [facility] [address] [place] [phone] * (ABNORMAL) Influenza A (ID NOW Rapid Molecular) (01/18/2025 10:35 AM EST) Influenza A Positive( A) Negative, Indeterminate [facility] Swab 01/18/2025 10:3 5 AM EST us Yi Ch MD POINT OF CARE TEST EN TER/EDIT ORDERABLES Final Result Performing Organization Address [facility] Co de Phone Number [facility] [address] [place] [phone] * POCT Rapid COVID Ag (01/18/2025 [...] Blood 10/28/2024 8:59 AM EST Cathleen Lomax [facility] POINT OF CARE TEST ENTER/ EDIT ORDERABLES Final Result * Lipid Panel, Standard (05/16/2024 11:43 AM EDT) Triglycerides 85 <150 mg/dL [facility] Comment:Desirable Triglyceri de: less than 150 mg/dLBorderline High Triglyceride 150-199 mg/dLHigh Triglyceride: 200-499 mg/dLVery High Triglyceride: greater than or equal to 5OO mg/dL Cholesterol 124 <200 mg/dL [facility] Comment:Desirable Cholestero l: less than 200 mg/dLBorderline High Cholesterol: 200-239 mg/dLHigh Cholesterol: greater than 239 mg/dL LDL Cholesterol Calculated 62 <100 mg/dL [facility] Comment:Desirable LDL: less than 100 mg/dLNear Optimal/Above Optimal LDL: 110- 129 mg/dLBorderline High LDL: 130-159 mg/dLHigh LDL: 160-189 mg/dLVery High LDL: greater than or equal to 190 mg/dL HDL Cholesterol 45 >40 mg/dL [facility] Comment:Desirable HDL: great er than 40 mg/dL Note: This HDL assay may give artificially low results in patients with liver disease. Blood Venous blood specimen / Unknown 05/16/2024 11:43 AM EDT 05/16/2024 11:49 AM EDT Yi Cleary MD LAB BLOOD ORDERAB LES Final Result Performing Organization Address City/[facility]/ZIP Co de Phone Number [facility] [address] [place] [phone] * Albumin, Random Urine W/Creatinine (01/12/2024 3:10 PM EST) Creatinine, Urine 31.68 mg/dL [facility] Microalbumin Urine 5.0 mg/L [facility] Microalbum Creatinine Ratio Ur 15.7 <30 ug/mg cr [facility] Comment:Albumin/Creatinine R atio Reference Ranges: Normal: < 30 ug/mg creatinine Microalbuminuria: 30 - 300 ug/mg creatinineClinical Albuminuria: > 300 ug/mg creatinine 01/12/2024 3:10 PM EST 01/12/2024 4:41 PM EST Yi Cleary MD LAB URINE ORDERAB LES Final Result Performing Organization Address [facility] Co de Phone Number [facility] [address] [place] [phone] * Hepatitis C Antibody with Reflex to HCV, RNA, Quantitative, Real-Time PCR (01/12/2024 8:56 AM EST) Hepatitis C Antibody Nonreactive Nonreactive [facility] Comment:Antibodies to HCV no t detected; does not exclude early acuteHCV infection. Blood Venous blood specimen / Unknown 01/12/2024 8:56 AM EST 01/12/2024 11:12 AM EST Yi Cleary MD LAB BLOOD ORDERAB LES Final Result Performing Organization Address City/[facility]/ZIP Co de Phone Number [facility] [address] [place] [phone] * THINPREP PAP (10/25/2020 10:02 AM [...] historic and ?? current clinical information. ?? Battery As[employer]er [employer] : SEE COMMENT [facility] Comment: [place], CT(ASCP) CT screening location: [address] ??[id number] Interpretation/R esult: Negative for intraepithelial lesion or [...] Final Result [facility] [address] * HPV mRNA E6/E7 (10/25/2020 10:02 AM EST) HPV nRNA E6/E7 Not Detected Not Detected [facility] Comment: This test was performed using the APTIMA HPV Assay ([employer] This assay detects E6/E7 viral messenger RNA (mRNA) from 14 high-risk HPV types (16,18,31,33,35,39,45,51,52,56,58,59,66,68). ?? The analytical performance characteristics of this assay have been determined by [employer]. The modifications have not been cleared or approved by the FDA. This assay has been validated pursuant to the CLIA regulations and is used for clinical purposes. 10/25/2020 10:0 2 AM EST us Peter Tate CNM LAB BLOOD ORDERABLES Cammy donny Result [facility] [address] from Last 3 Months or Most Recently Relevant to Health Maintenance Insurance [employer] Care Teams Head Sugar Reprocess Operator Relationship Specialty Start Date End Date Yi Thompson MD [address] [place] [phone] PCP - General Internal Medicine 08/20/23
--- OUTSIDE RECORDS SUMMARY | 2025-03-30 14:13 | XMS_ITS | Encounter Summary ---
Author Organization [employer] Address [address] [place] [address] Care Team Providers Care Associate Financial Planner Name Role Phone Yi Thompson MD Primary Care Pro vider Reason for Visit * Reason Comments Med Refill Encounter Details Date Type Department Care Team ([facility] st Contact Info) Description 05/03/2024 Refill [facility] [address] [place] [address] Yi Thompson MD [address] [place] [address] Social History Tobacco Use Types Packs/Day Years [...] 04/06/2025 11:15 AM EDT Office Visit [address] [address] Yi Thompson MD [address] [place] [address] 04/07/2025 10:00 AM EDT Medication Management [address] [address] documented as of this encounter Goals Goal [...] documented as of this encounter Care Teams Associate Financial Planner Relationship Specialty Start Date End Date Yi Thompson MD [address] [place] [phone] PCP - General Internal Medicine 08/20/23 documented as of this encounter
--- OUTSIDE RECORDS SUMMARY | 2025-03-30 14:13 | XMS_ITS | Encounter Summary ---
Author Organization [employer] Address [address] [place] [address] Care Team Providers Care Care Transition Coordinator Name Role Phone Yi Thompson MD Primary Care Pro vider Reason for Visit * Reason Onset Date Comments Nurse Triage 02/15/2024 Encounter Details Date Type Department Care Team ([facility] st Contact Info) Description 02/15/2024 Telephone [facility] [address] [place] [address] Yi Thompson MD [address] [place] [address] Nurse Triage Social History Tobacco Use Types [...] 02/15/2024 12:44 PM EDT Triage call with [facility] Care Administrator [place] [id number] Pt reports headache frontal and back of [...] 400pm. Pt is advised to come to [facility] which is open till 8pm this evening. [...] Tingling sensation The caller accepted this outcome Bulgarian speaker documented in this encounter Plan of Treatment Upcoming Encounters Date Type Department Care Team (Late st Contact Info) Description 04/06/2025 11:15 AM EDT Office Visit [facility] [address] [place] [phone] Yi Thompson MD [address] [place] [address] 04/07/2025 10:00 AM EDT Medication Management [address] [address] documented as of this encounter Visit Diagnoses Not on filedocumented in this encounter Additional Health Concerns Assessment Noted Time PHQ-9 Depression Total Score: 1 01/13/20 24 12:16 PM EST documented as of this encounter Care Teams Care Transition Coordinator Relationship Specialty Start Date End Date Yi Thompson MD [address] [place] [phone] PCP - General Internal Medicine 08/20/23 documented as of this encounter
--- OUTSIDE RECORDS SUMMARY | 2025-03-30 14:13 | XMS_ITS | Encounter Summary ---
Author Organization [employer] Address [address] [place] [address] Care Team Providers Care Registered Safety Engineer Name Role Phone Juliet Bird Primary Care Provider [phone] Yi Thompson MD Primary Care Pro vider Reason for Visit * Reason Comments Med Refill Encounter Details Date Type Department Care Team (Late Contact Info) Description 06/28/2023 Refill [facility] [address] [place] [phone] Juliet Bird FNP [address] [place] [address] Dept [place] [address] Social History Tobacco Use Types Packs/Day Years [...] Description 04/06/2025 11:15 AM EDT Office Visit [facility] [address] [place] [phone] Yi Thompson MD [address] [place], [place] [phone] 04/07/2025 10:00 AM EDT Medication Management [facility] [address] [place] [address] documented as of this encounter Visit Diagnoses Not on filedocumented in this encounter Care Teams Registered Safety Engineer Relationship Specialty Start Date End Date Juliet Bird FNP PCP - General Family Medicine 01/22/23 08/19/23 Yi Thompson MD [address] [place] [address] PCP - General Internal Medicine 08/20/23 documented as of this encounter
--- OUTSIDE RECORDS SUMMARY | 2025-03-30 14:13 | XMS_ITS | Encounter Summary ---
Author Organization [employer] Address [address] [place] [address] Care Team Providers Care Rn Endoscopy Name Role Phone Yi Thompson MD Primary Care Pro vider Reason for Visit * Reason Comments Med Change Request Encounter Details Date Type Department Care Team ([facility] Contact Info) Description 03/15/2024 Refill [facility] [address] [place] [address] Leticia Plunkett, ANP [address] [place] [address] Sinus pressure Social History Tobacco Use Types [...] 04/06/2025 11:15 AM EDT Office Visit [facility] [address] [place] [phone] Yi Thompson MD [address] [place] [address] 04/07/2025 10:00 AM EDT Medication Management [address] [address] documented as of this encounter Goals Goal [...] documented as of this encounter Care Teams Rn Endoscopy Relationship Specialty Start Date End Date Yi Thompson MD [address] [place] [phone] PCP - General Internal Medicine 08/20/23 documented as of this encounter
== END 2025-03-30 14:08 | disposition home or self-care (01) ==
LOC: HO.HOS 13:35
PROVIDERS: PCP Student in an Organized Health Care Education/Training Program; Visit Provider Orthopaedic Surgery
DX: R20.0 Anesthesia of skin (principal); R20.2 Paresthesia of skin
CPT/HCPCS: 99214

== ENCOUNTER → 2025-03-30 13:42 | Outpatient (BNV) | payer OTHER, SELFPAY | PROVIDERS: Visit Provider Radiology Diagnostic Radiology | DX: M17.0 Bilateral primary osteoarthritis of knee (principal) | CPT/HCPCS: 73562 ==

== ENCOUNTER → 2025-04-12 07:42 | Outpatient (BNV) | payer OTHER, SELFPAY | PROVIDERS: PCP Student in an Organized Health Care Education/Training Program; Visit Provider Radiology Diagnostic Radiology | DX: M47.812 Spondylosis without myelopathy or radiculopathy, cervical region (principal) | CPT/HCPCS: 72141 ==

== ENCOUNTER 2025-04-12 08:07 | Outpatient (REF) | payer OTHER, SELFPAY ==
--- NOTE | ~2025-04-12 | MR_ITS ---
EXAMINATION: MR CERVICAL SPINE WITHOUT CONTRAST CLINICAL INFORMATION: Anesthesia of skin COMPARISON: No priors. Correlated to x-ray dated November 28, 2024. TECHNIQUE: MRI of the cervical spine was obtained using routine sequences without contrast. FINDINGS: Craniocervical junction is intact. No bone marrow STIR signal abnormality. Marginal osteophyte formation and decreased intervertebral disc height and signal at C6-7 and to a lesser extent C4-5 and C5-6 level. Grade 1 retrolisthesis at C4-5. There is buckling deformity in the dorsal aspect of the thecal sac secondary to ligamentum flavum hypertrophy at C4-5. The cervical spinal cord signal is normal. C2-3: No herniated disc. No neuroforamina stenosis. C3-4: Central disc osteophyte complex formation resulting in ventral deformity of the thecal sac. No cord compression. No neuroforamina stenosis. C4-5: Broad-based disc osteophyte complex formation abutting the cord. Bilateral neuroforamina narrowing on a degenerative basis. C5-6: Broad-based disc osteophyte complex formation abutting the cord. Bilateral neuroforamina narrowing on a degenerative basis. C6-7: Right subarticular disc osteophyte compresses formation resulting in ventral spinal cord deformity. No cord signal abnormality. Left neuroforamina narrowing on a degenerative basis. C7-T1: Broad-based disc osteophyte compresses formation. No cord compression. No neuroforamina stenosis. T1-2: No herniated disc. No neuroforamina stenosis. No prevertebral compartment hematoma, mass or fluid collection. Flow-void signal within the main vessels is normal. Left vertebral artery is slightly dominant. The left submandibular gland is not identified which could be related to patient's positioning. MR/MR cervical spine wo con IMPRESSION: Multilevel cervical spondylosis C3-4 to C6-7 levels more conspicuous at C6-7, C5-6 and to a lesser extent C3-4 and C4-5 levels. No cord compression, cord edema and or myelopathy. Electronically signed by: Andres Kendall MD 04/12/2025 09:56 AM EDT
--- OUTSIDE RECORDS SUMMARY | 2025-04-12 08:18 | XMS_ITS | Data Portability ---
Author Organization ID - [facility], Allergy Address [address] [address] Assessment No assessment recorded. Plan of Treatment [...] ast No observ ation record ed. [facility] ([facility]) [address] [address], [place], [address], 07/12/2024 17:28:21 07/12/20 24 03/07/2024 CT, neck, soft tissu e, w/ contr ast No observ ation record ed. [email or web address] Not Available 06/17 14:31:41 Result Notes None [...] Available [employer] 4 03:27:19 Oropharyn geal dysphagia [id number] Active 2023 CHANTEL MEYER MD [address] [facility],[address] [address], [place], [address] , [facility] 4 14:16:46 Acquired vocal cord palsy [id number] Active 2023 CHANTEL MEYER MD 100 [facility],[address] [address], [place], [address] , [facility] 4 14:27:26 Problem Notes None recorded. Procedures Surgical History Date Name Laterality Status Provider Name and Address Organization Details Recorded Time 07/12/2024 FFL_RE completed CHANTEL MEYER MD [address] [facility],[address] [address], [place], [address], [facility] 07/12/2024 14:20:56 Imaging Results None recorded. Procedure Notes None recorded. Medical Equipment None Reported. Allergies Allergen ID Allergen Name Allergen Category Reaction Reaction Severity Criticality Documentation Date Start Date Code Code System Note Provider Name and Address Organization Details Recorded Time 34905 Product containin g penicilli n (product) medicatio n other Not available Not available 03/29/2024 51941 8005 SNOMED React ion: unkno wn, unspe cifie d;; Not Available [facility] 4 01:03:20 Medications Name Sig Start Date Stop Date Status Note LastModified by Organization Details LastModified Time medbox status USE DIRECTED active Not Available Not Available No t Available freestyle lite test strips strp active Not Available Not Available Not Available losartan 50 mg tablet active Medicati on ID: 95234 Br and Name: losartan Send Method: E-Prescr [...] 40 mg tablet active Medicati on ID: 45356 Br and Name: lovastat in Send Method: E-Prescr ibed Sub s Allowed: subs OK Medic ationGen ericName : lovastat in Not Available Not Available Not Available amlodipin e 5 mg tablet active Medicati on ID: 67378 Br and Name: amlodipi ne Send Method: [...] Not Available Not Available No t Available Gervais Thyroid 15 mg tablet active Medicati on ID: 42465 Br and Name: Gervais Thyroid Send Method: E-Prescr ibed Sub s Allowed: subs OK Medic ationGen ericName : Gervais Thyroid Not Available Not Available Not Available amitripty line 25 mg tablet [place] Medicati [place] ID: 87150 Br and Name: amitript yline Se nd Method: E-Prescr ibed Sub s Allowed: subs OK Medic ationGen ericName : amitript yline Not Available Not Available Not Available Protonix 40 mg intraveno us solution active Medicati on ID: 19717 Br and Name: Protonix Send Method: E-Prescr [...] 150 mg capsule active Medicati on ID: 94870 Br and Name: ranitidi ne HCl Send Method: E-Prescr ibed Sub s Allowed: subs OK Medic ationGen ericName : ranitidi ne HCl Not Available Not Available Not Available hydrochlo rothiazid e 25 mg tablet active Medicati on ID: 77471 Br and Name: hydrochl orothiaz ro Send [...] 17 gram/dose oral powder USE DIRECTED BY [facility] active Not Available Not Available No [...] release 24hr (osmotic) active Medicati on ID: 15929 Br and Name: metformi n Send Method: [...] tablet,de layed release [place] Medicati on ID: 33706 Du ration Value: 30 Brand Name: omeprazo [...] Updated DateTime 07/12/2024 165.1 cm 27.3 kg/m2 44901.15 g [place] Anderson ID - [facility] [...] SNOMED-CT Code Diagnosis ICD10 Code Diagnosis Note [id number] CHANTEL MEYER MD [facility] [address] [address] 07/12/2024 13:49:31 07/12/2024 16:53:30 Oropharyngeal dysphagia [id number] R13.12 Likely due to esophageal dysmotilit y. VC paralysis is a factor but doesn't explain her dysphagia to solids. I recommend she discuss GI referral with her PCP. I would be glad to see her as needed. I personally reviewed her imaging reports. Acquired v ocal cord palsy [id number] J38.00 Likely from initial surgery 14 years [...] Name 07/12/2024 1 [facility] [address] Giuseppe Rodriguez [id number] Sapna Garcia 07/12/2024 1 [facility] [address] Giuseppe Rodriguez [id number] Sapna Garcia Notes Date Note Type Note Provider Name and Address Organization Details Recorded Time 07/12/2024 text/html She has a histor y of thyroid cancer. She had thyroidectomy in [place] 14 years ago. She had repeat surgery here 5-6 years ago. She reports her swallowing has been a problem since her first surgery. She had a swallow study at [facility]. She feels like food gets stuck. Has occasional choking with liquids. She has never smoked. She denies throat pain and SOB. I reviewed an Upper GI series which showed esophageal dysmotility. I also reviewed her CT neck with 02/2024 which showed possible right vocal cord paralysis. contrast CHANTEL MEYER MD [address] [place] [address], [place], [address], [facility] - [facility] 07/12/2024 14:28:36 OBGyn Episode No OBEpisode recorded.
== END 2025-04-12 08:08 | disposition home or self-care (01) ==
LOC: HO.MRI 08:07
PROVIDERS: PCP Student in an Organized Health Care Education/Training Program; Visit Provider Orthopaedic Surgery
DX: R20.0 Anesthesia of skin (principal); R20.2 Paresthesia of skin
CPT/HCPCS: 72141

== ENCOUNTER 2025-04-14 11:04 | Outpatient (AMB) | payer OTHER, SELFPAY ==
--- NOTE | 2025-04-14 11:11 | A.OFFVIS_ITS ---
Vital Signs 04/14/25 11:12 Height 5 ft 4 in Weight 154 lb BMI 26.4 Intake Visit Reasons: New prob- Left elbow pain Intake Note: Sapna is a 64 year old female who presents today with complaints of left elbow pain. Patient was last seen with DEL where she expressed concerns of bilateral arm numbness, cervical MRI was ordered. Patient reports her elbow pain has been present for approx 1 month ago. Seen in ED in January where an U/S was done and was positive for a superficial clot in here left arm States she has Hx of knee O.A and has fallen multiple times. No EMG done. 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 Allergies Penicillins [PENICILLINS] Allergy (Intermediate, Verified 04/14/25 11:19) HIVES Medication List - Last Reconciled 04/14/25 by Antonette Patino PA-C acetaminophen (Tylenol) 650 mg (2 x 325 mg) PO Q6H PRN albuterol sulfate 90 mcg/actuation (ProAir HFA) 2 puffs inhalation Q4-6H PRN amitriptyline 10 mg PO BEDTIME atorvastatin 10 mg PO DAILY blood sugar diagnostic (FreeStyle Lite Strips) Test blood glucose twice per day blood-glucose meter (FreeStyle Lite Meter kit) As directed cholecalciferol (vitamin D3) 62.5 mcg PO QAM ferrous sulfate 325 mg PO DAILY MDD 325mg flash glucose scanning reader (ufindadsStyle Emile 2 [place]) As directed fluticasone furoate-vilanterol 200-25 mcg/dose (Breo Ellipta) 1 inh inhalation DAILY 30 days fluticasone propionate 50 mcg/actuation sprays intranasal gabapentin 300 mg PO BEDTIME 30 days hydrocortisone 2.5% (Proctosol HC) 1 appl GA BID-QID PRN hydroxyzine HCl 10 mg PO BEDTIME ibuprofen 600 mg PO Q8H PRN incobotulinumtoxinA (Xeomin) to be injecte dto neck muscles q 3mths by physician intramuscularly; levothyroxine 112 mcg PO DAILY losartan-hydrochlorothiazide 100-12.5 mg tabs PO DAILY metformin ER 500 mg PO BID montelukast 10 mg PO DAILY naproxen 500 mg PO BID 30 days mdfnxnrb-blctyvrnd-RZ 3.5-10,000-1 mg/mL-unit/mL-% drps otic (ears) pantoprazole 40 mg PO DAILY sennosides (senna) 17.2 mg (2 x 8.6 mg) PO BEDTIME sitagliptin phosphate (Januvia) 100 mg PO DAILY sumatriptan succinate take 1 tab at onset of headache; if no relief may repeat 1 tab after at least 2 hrs; max = 4 tabs/24 hr orally PRN; MDD 100mg HPI HPI New prob- Left elbow pain: Details: 64 yo female presents to the office for left upper ext numbness and weakness. She was previously seen by Dr. Estes for generalized weakness and was sent for an MRI of her C-spine. The MRI of the C-spine confirmed spondylosis of the cervical spine. She is established with pain management and has been evaluated by them for her back. She states she had CTR left hand over 15 years ago which was successful. She states the numbness is in her entire hand it is not localized to 1 area or another. She states it is present in the morning and gets worse throughout the day. [facility] Medical History Headache Cognitive disorder Cervical dystonia Palpitations Non-cardiac chest pain Pelvic pain Leg pain Bladder pain Lower abdominal pain Gross hematuria Toe pain Right knee pain Effusion, right knee Dysuria Pelvic pain in female Hematuria Mass of spine Hematuria Type 2 diabetes mellitus with polyneuropathy DM2 (diabetes mellitus, type 2) Nail deformity Paronychia Failure of spinal cord stimulator Thymoma Pulmonary nodules Thyroid cancer Blood in urine Constipation by delayed colonic transit Tubular adenoma of colon Gastritis Hypertension Dyslipidemia Post-surgical hypothyroidism Primary thyroid cancer Vitamin D deficiency Surgical History History of thymectomy History of back surgery Hx of colonoscopy Hx of thyroidectomy Hx of hernia repair Hx of section Hx of hysterectomy History of esophagogastroduodenoscopy (EGD) Family History Father Stroke Heart attack Mother Diabetes mellitus Family/Other Family history of cancer Sister Stomach cancer Family/Other Thyroid cancer Social History Household Members: Spouse, Children and Other Are you a primary mall plant caretaker to a significant other at home: No Do you presently have visiting nurse or other home services: No Alcohol intake: unknown Patient Tobacco Use Status: Former Tobacco user Tobacco use type: Cigarette Second Hand Smoke Exposure: No Sexual orientation: Straight/Heterosexual Gender identity: Female Physical Exam Vital Signs: BMI result Body Mass Index 26.4 Const General: cooperative and no acute distress Orientation/consciousness: patient oriented x3 Resp Effort & Inspection: normal respiratory effort and able to speak in complete sentences Cardio Peripheral pulses: Peripheral pulses 2+ throughout Neuro General: patient oriented x3 Extrem Other: Left wrist and elbow normal to inspection. Mild Tenderness over the medial aspect of the elbow and Positive tinels along the cubital tunnel. He has good ROM of the elbow, no pain with supination or pronation. Negative tinels along the carpal tunnel. Numbness and tingling over the ulnar nerve distribution of the left hand. Able to make a full fist and fully extend all fingers. Assessment & Plan Assessment & Plan (1) Cubital tunnel syndrome, bilateral: Code(s): G56.23 - Lesion of ulnar nerve, bilateral upper limbs Category: Medical Plan: A this time an EMG/nerve conduction study has been ordered to further evaluate the extent of her numbness. I did explain to the patient it may be contributed from her neck however this study will help us differentiate pathology from neck versus cubital or carpal tunnel. If the EMG is negative for cubital or carpal tunnel she will continue to follow up with pain management for these symptoms. Patient is content with this plan. I also put in an order for occupational therapy to work on some strengthening exercises. Orders: Orders NE electromyogram (EMG) Today R20.0 - Anesthesia of skin, R20.2 - Paresthesia of skin NE nerve conduction velocity Today R20.0 - Anesthesia of skin, R20.2 - Paresthesia of skin OT Evaluation and Treatment Today G56.23 - Lesion of ulnar nerve, bilateral upper limbs Coding Level of Care Code Est Pt Level 3 (71929) Complex EM visit Add On G2211 Diagnoses Cubital tunnel syndrome, bilateral G56.23
[2025-04-14 11:12] VITALS: BMI 26.4
--- OUTSIDE RECORDS SUMMARY | 2025-04-14 11:59 | XMS_ITS | Encounter Summary ---
Author Organization [facility] Address [address] [place] [address] Care Team Providers Care Custom Car Builder Name Role Phone Yi Thompson MD Primary Care Pro vider Reason for Referral * Consultation (Routine) - Authorized Specialty Diagnoses / Procedures Referred By Contac t Referred To Contact Pharmacy Diagnoses Hypertension Maria Del Carmen Meza MD [address] [place] [address] Phone: tel: fax: Referral ID Status Reason Start Date Expiration Date Visits Requested Visits Authorized [id number] Authorized Continuity of Care 04/03/2025 04/03/2026 6 6 Encounter Details Date Type Department Care Team (Late st Contact Info) Description 03/30/2025 Orders Only [facility] [address] [place] [id number] Maria Del Carmen Meza MD [address] [place] [address] Hypertension (Primary Dx) Social History Tobacco Use [...] Recorded Patient Health Questionnaire-2 Score 0 01/13/2024 Internet Access Answer Date Recorded Internet Access Q1 Yes 03/30/2025 Internet Access Q2 Not on file 03/30/2025 Comments No Sex and Gender Information Value Date Recorded Sex Assigned at Female 09/15/2022 10:25 AM EDT Legal Sex Female 10:25 AM EDT Gender Identity Female 09/15/2022 10:25 AM EDT Sexual Orientation Straight 09/15/2022 10 :25 AM EDT documented as of this encounter Plan of Treatment Upcoming Encounters Date Type Department Care Team ([facility] st Contact Info) Description 04/25/2025 3:00 PM EDT Medication Management [facility] [address] [place] [phone] 06/09/2025 11:15 AM EDT Office Visit [facility] [address] [place] [phone] Yi Thompson MD [address] [place] [address] [phone] Scheduled Referrals Name Type Priority Associated Diagnoses Orde r Schedule Referral to Pharmacy MTM Outpatient Referral Routine Hypertension Ordered: 04/03/2025 documented as of this encounter Goals Goal Patient Goal Type Associated Problems Recent Progress Patient-Stated? Author Blood Pressure < 140/90 Blood Pressure 122/76(2024 11:06 AM EDT) Jn Petit Hemoglobin A1c < 7 Result Component 6.8( 8:59 AM EST) No Jn Shah documented as of this encounter Procedures Procedure Name Priority Date/Time Associated Diagnosis Comments MR CERVICAL SPINE WO CONTRAST Routine 04/12/2025 8:21 AM EDT documented in this encounter Results * MR Cervical Spine w/o Contrast (04/12/2025 8:21 AM EDT) Anatomical Region Laterality Modality Spine, C-spine Magnetic Resonan ce 04/12/2025 8:21 AM EDT Narrative 04/12/2025 9:59 AM EDT ? [facility] ?[address] ?[place] [address] ? Magnetic Resonance Report ? Signed ? Patient: Sapna Herzog ?MR#: M ?? [id number] ? : 1960 ?Acct:[id number] ? Age/Sex: 64 / F ?ADM Date: 04/12/25 ? Loc: HO.MRI ? Attending Dr: Pratik Estes MD ? Ordering Physician: Pratik Estes MD ?? Date of Service: 04/12/25 ?? Procedure(s): MR cervical spine wo con ?? Accession Number(s): [id number] ? cc: Pratik Estes MD; Yi Thompson MD ? EXAMINATION: ?? MR CERVICAL SPINE WITHOUT CONTRAST ? CLINICAL INFORMATION: ?? Anesthesia of skin ? COMPARISON: ?? No priors. ?? Correlated to x-ray dated November 28, 2024. ? TECHNIQUE: ?? MRI of the cervical spine was obtained using routine sequences without ?? contrast. ? FINDINGS: ?? Craniocervical junction is intact. ?? No bone marrow STIR signal abnormality. ?? Marginal osteophyte formation and decreased intervertebral disc height ?? and signal at C6-7 and to a lesser extent C4-5 and C5-6 level. ?? Grade 1 retrolisthesis at C4-5. ?? There is buckling deformity in the dorsal aspect of the thecal sac ?? secondary to ligamentum flavum hypertrophy at C4-5. ?? The cervical spinal cord signal is normal. ? C2-3: ?? No herniated disc. No neuroforamina stenosis. ? C3-4: ?? Central disc osteophyte complex formation resulting in ventral ?? deformity of the thecal sac. No cord compression. No neuroforamina ?? stenosis. ? C4-5: ?? Broad-based disc osteophyte complex formation abutting the cord. ?? Bilateral neuroforamina narrowing on a degenerative basis. ? C5-6: ?? Broad-based disc osteophyte complex formation abutting the cord. ?? Bilateral neuroforamina narrowing on a degenerative basis. ? C6-7: ?? Right subarticular disc osteophyte compresses formation resulting in ?? ventral spinal cord deformity. No cord signal abnormality. Left ?? neuroforamina narrowing on a degenerative basis. ? C7-T1: ?? Broad-based disc osteophyte compresses formation. No cord compression. ?? No neuroforamina stenosis. ? T1-2: ?? No herniated disc. No neuroforamina stenosis. ? No prevertebral compartment hematoma, mass or fluid collection. ?? Flow-void signal within the main vessels is normal. Left vertebral ?? artery is slightly dominant. ?? The left submandibular gland is not identified which could be related ?? to patient's positioning. ? MR/MR cervical spine wo con ?? IMPRESSION: ?? Multilevel cervical spondylosis C3-4 to C6-7 levels more conspicuous at ?? C6-7, C5-6 and to a lesser extent C3-4 and C4-5 levels. No cord ?? compression, cord edema and or myelopathy. ? Electronically signed by: ??Andres Kendall MD ??04/12/2025 09:56 AM ?? EDT RP ? Dictated By: ?Andres Salcido MD ? Signed By: ?<Electronically signed by Andres Armstrong MD in OV> ? 04/12/25 0956 ? DD/ 08 ? TD/TT: 04/12/25 0837 ? Simulation Technician: ? Procedure Note Donotuseinterpreter, Image - 04/12/[address] [address] Magnetic Resonance Report Signed Patient: Sapna Herzog CMR#: M [id number] : 9Acct:[id number] Age/Sex: 64 / FADM Date: 04/12/25 Loc: HO.MRI Attending Dr: Pratik Estes MD Ordering Physician: Pratik Estes MD Date of Service: 04/12/25 Procedure(s): MR cervical spine wo con Accession Number(s): [id number] cc: Pratik Estes MD; Yi Thompson MD EXAMINATION: MR CERVICAL SPINE WITHOUT CONTRAST CLINICAL INFORMATION: Anesthesia of skin COMPARISON: No priors. Correlated to x-ray dated November 28, 2024. TECHNIQUE: MRI of the cervical spine was obtained using routine sequences without contrast. FINDINGS: Craniocervical junction is intact. No bone marrow STIR signal abnormality. Marginal osteophyte formation and decreased intervertebral disc height and signal at C6-7 and to a lesser extent C4-5 and C5-6 level. Grade 1 retrolisthesis at C4-5. There is buckling deformity in the dorsal aspect of the thecal sac secondary to ligamentum flavum hypertrophy at C4-5. The cervical spinal cord signal is normal. C2-3: No herniated disc. No neuroforamina stenosis. C3-4: Central disc osteophyte complex formation resulting in ventral deformity of the thecal sac. No cord compression. No neuroforamina stenosis. C4-5: Broad-based disc osteophyte complex formation abutting the cord. Bilateral neuroforamina narrowing on a degenerative basis. C5-6: Broad-based disc osteophyte complex formation abutting the cord. Bilateral neuroforamina narrowing on a degenerative basis. C6-7: Right subarticular disc osteophyte compresses formation resulting in ventral spinal cord deformity. No cord signal abnormality. Left neuroforamina narrowing on a degenerative basis. C7-T1: Broad-based disc osteophyte compresses formation. No cord compression. No neuroforamina stenosis. T1-2: No herniated disc. No neuroforamina stenosis. No prevertebral compartment hematoma, mass or fluid collection. Flow-void signal within the main vessels is normal. Left vertebral artery is slightly dominant. The left submandibular gland is not identified which could be related to patient's positioning. MR/MR cervical spine wo con IMPRESSION: Multilevel cervical spondylosis C3-4 to C6-7 levels more conspicuous at C6-7, C5-6 and to a lesser extent C3-4 and C4-5 levels. No cord compression, cord edema and or myelopathy. Electronically signed by: Andres Kendall MD 04/12/2025 09:56 AM EDT RP Dictated By: Andres Salcido MD Signed By: <Electronically signed by Andres Armstrong MDin OV> 04/12/25 0956 DD/ 0821 TD/TT: 04/12/25 0837 Simulation Technician: [facility] External Provider IMG MRI PROCEDURES Final Result documented in this encounter Visit Diagnoses Diagnosis Hypertension- Primary Unspecified essential hypertension documented in this encounter Additional Health Concerns Assessment Noted Time PHQ-9 Depression Total Score: 1 01/13/20 24 12:16 PM EST documented as of this encounter Care Teams Custom Car Builder Relationship Specialty Start Date End Date Yi Thompson MD [address] [place] [id number] PCP - General Internal Medicine 08/20/23 documented as of this encounter
== END 2025-04-14 11:38 | disposition home or self-care (01) ==
LOC: HO.HOS 11:04
PROVIDERS: PCP Student in an Organized Health Care Education/Training Program; Visit Provider Physician Assistant
DX: G56.23 Lesion of ulnar nerve, bilateral upper limbs (principal)
CPT/HCPCS: 99213

== ENCOUNTER 2025-04-17 09:08 | Outpatient (AMB) | payer OTHER, SELFPAY ==
--- NOTE | 2025-04-17 09:13 | MHC.OFFVIS ---
Vital Signs 04/17/25 09:14 Height 5 ft 4 in Weight 156 lb 8.451 oz BMI 26.9 BP 110/60 Blood Pressure Location Lt brachial Position Sitting Pulse 106 H Pulse Source Pulse Oximeter Pulse Oximetry (%) 97 Oxygen Delivery Method Room Air Intake Visit Reasons: Pulmonary nodules Accompanied by: Self / Same As Patient Allergies Penicillins [PENICILLINS] Allergy (Intermediate, Verified 04/17/25 09:16) HIVES HPI Comments Details: The patient is a 64 year woman with a complicated past medical history including a history of thymoma initially undergoing thymectomy in 2009 and subsequently developing a recurrence requiring a repeat thymectomy in 2014 via a robotic video thoracoscopy approach. in addition to this the patient also has a history of thyroid cancer status post total thyroidectomy. The patient did have a CT scan of the chest at [facility] postoperatively in 2017 which I personally reviewed. the postoperative changes were noted in the anterior mediastinum. Without any evidence of any residual disease or recurrence. The patient also noted to have 2 pulmonary nodules subcentimeter in size 1 in the right lower lobe which appears to be calcified and the 1 in the left hemithorax it is a noncalcified pulmonary nodule. More recently she did undergo repeat CT scan at [facility] again demonstrating the postoperative changes and also documented pulmonary nodules. I also personally reviewed that CT scan demonstrating the 2 pulmonary nodules which appear to be stable when compared to her last CT scan available at [facility]. This is reassuring. However with a history of thyroid cancer in addition to her thymoma will continue to monitor her nodular densities. Clinically the patient is doing well from a respiratory status. She denies any cough or any shortness of breath. Her major limitation is her back pain. She is having significant discomfort. She also had a recent nerve stimulator placed for her back pain in her leg pain however, has resulted in significant knee pain and inability to move her right lower extremity. She does have an appointment with her pain specialist tomorrow. Otherwise from a respiratory status the patient is doing well so therefore will have the patient return in 1 year with a repeat CT scan. If she is to develop any worsening symptoms prior to that she is to call our office for an earlier assessment. 12/16/2024 the patient is here for a pulmonary follow-up visit. Overall she has complains of back pain and also some chest discomfort. She feels tightness. Moderate severity. She does have her use her rescue inhaler with some partial relief but then it comes back. We did review her last CT scan of the chest was back in 09/04/2023 demonstrating numerous pulmonary nodules. She has not had any CT scans since then. With the ongoing worsening respiratory complaints will go ahead and request a CT scan. She is recovering from back surgery so will hold off for little bit until she recovers completely. In the meantime will start him on maintenance therapy. Will follow-up in 6 months. 04/17/2025 the patient is here for a pulmonary follow-up visit. Overall she is doing okay she still complaining of significant back discomfort neck discomfort. She will be seen specialists for these. In addition to that she did undergo a CT scan of the chest in February 2025 which I personally reviewed. Her pulmonary nodules are stable. Based on the size that we should repeat it again in a year's time. In the meantime she does have some difficulty with her breathing specially breathing in. This is status post thyroidectomy. Will go ahead and request pulmonary function studies to assess her flow volume loop to make sure that there are not any dynamic intra or extra thoracic obstruction. [facility] Medical History Headache Cognitive disorder Cervical dystonia Palpitations Non-cardiac chest pain Pelvic pain Leg pain Bladder pain Lower abdominal pain Gross hematuria Toe pain Right knee pain Effusion, right knee Dysuria Pelvic pain in female Hematuria Mass of spine Hematuria Type 2 diabetes mellitus with polyneuropathy DM2 (diabetes mellitus, type 2) Nail deformity Paronychia Failure of spinal cord stimulator Thymoma Pulmonary nodules Thyroid cancer Blood in urine Constipation by delayed colonic transit Tubular adenoma of colon Gastritis Hypertension Dyslipidemia Post-surgical hypothyroidism Primary thyroid cancer Vitamin D deficiency Surgical History History of thymectomy History of back surgery Hx of colonoscopy Hx of thyroidectomy Hx of hernia repair Hx of section Hx of hysterectomy History of esophagogastroduodenoscopy (EGD) Family History Father Stroke Heart attack Mother Diabetes mellitus Family/Other Family history of cancer Sister Stomach cancer Family/Other Thyroid cancer Social History Household Members: Spouse, Children and Other Are you a primary out of school hours care worker to a significant other at home: No Do you presently have visiting nurse or other home services: No Alcohol intake: unknown Patient Tobacco Use Status: Former Tobacco user Tobacco use type: Cigarette Second Hand Smoke Exposure: No Sexual orientation: Straight/Heterosexual Gender identity: Female Review of Systems Const Denies weight gain and Denies weight loss ENT Reports no additional complaints, Denies dysphagia, Reports neck pain and Denies odynophagia Card Reports no additional complaints Resp Reports no additional complaints GI Reports abdominal pain, Denies belching, Denies melena, Denies bloating, Denies change in bowel habits, Denies dysphagia, Denies excessive flatus, Denies dyspepsia, Denies heartburn, Denies diarrhea, Reports loose stools, Denies nausea, Denies odynophagia and Denies vomiting Reports no additional complaints Musc Reports abnormal gait, Reports back pain, Reports neck pain and Reports radiating pain into limb Neuro Reports abnormal gait Psych Reports no additional complaints Endo Reports no additional complaints Physical Exam Vital Signs: Last Vital Signs Pulse 106 H 04/17/25 09:14 BP 110/60 04/17/25 09:14 Pulse Ox 97 04/17/25 09:14 Oxygen Delivery Method Room Air 04/17/25 09:14 BMI result Body Mass Index 26.9 Const General: comfortable and well developed Nutritional Appearance: well nourished Orientation/consciousness: patient oriented x3 Limitations: physical limitations HEENT Head: Yes atraumatic Eyes General: appearance normal, both eyes and all related structures Neck Neck: Yes full ROM Resp Effort & Inspection: normal respiratory effort, able to speak in complete sentences, no tracheal deviation and symmetric chest movement Auscultation: clear to auscultation bilaterally Cardio Rate: regular rate Heart sounds: S1 normal heart sound present, S2 normal heart sound present, no gallops and no murmurs GI Palpation (GI): Soft to palpation Auscultation: normal bowel sounds General: Yes no CVA tenderness Back/Spine/Pelvis Back: no CVA tenderness Skin General skin exam: elasticity normal, turgor normal and dry skin Neuro General: patient oriented x3 Psych Appearance: grossly normal Mental Status: mental status grossly normal Speech and movement: Normal speech and movement present Affect: normal affect Attitude: cooperative Assessment & Plan Assessment & Plan (1) Pulmonary nodules: Code(s): R91.8 - Other nonspecific abnormal finding of lung field Category: Medical (2) History of thymectomy: Code(s): Z90.89 - Acquired absence of other organs Category: Surgical Plan CT chest 1 yr PFTs Breo daily LAUREN as needed F/U in 12 months Orders: Orders PFT pulmonary function test 1 Year R91.8 - Other nonspecific abnormal finding of lung field CT chest wo IV con 1 Year R91.8 - Other nonspecific abnormal finding of lung field Coding Level of Care Code Est Pt Level 4 (41822) Diagnoses Pulmonary nodules R91.8 History of thymectomy Z90.89 Time Spent (min) 16
[2025-04-17 09:14] VITALS: BP 110/60; PULSE 106; O2SAT 97; BMI 26.9
--- OUTSIDE RECORDS SUMMARY | 2025-04-17 09:42 | XMS_ITS | Encounter Summary ---
Author Organization [employer] Address [address] [place] [address] Care Team Providers Care Cell Manager Name Role Phone Yi Thompson MD Primary Care Pro vider Reason for Referral * Consultation (Routine) - Authorized Specialty Diagnoses / Procedures Referred By Contac t Referred To Contact Pharmacy Diagnoses Hypertension Maria Del Carmen Meza MD [address] [place] [address] Phone: tel: fax: Referral ID Status Reason Start Date Expiration Date Visits Requested Visits Authorized [id number] Authorized Continuity of Care 04/03/2025 04/03/2026 6 6 Encounter Details Date Type Department Care Team (Late st Contact Info) Description 03/30/2025 Orders Only [facility] [address] [place] [phone] Maria Del Carmen Meza MD [address] [place] [address] Hypertension (Primary Dx) Social History Tobacco Use [...] Upcoming Encounters Date Type Department Care Team ([facility] st Contact Info) Description 04/25/2025 3:00 PM EDT Medication Management [facility] [address] [place] [phone] 06/09/2025 11:15 AM EDT Office Visit [facility] [address] [place] [phone] Yi Thompson MD [address] [place] [address] [phone] Scheduled Referrals Name Type Priority Associated Diagnoses [...] EDT Narrative 04/12/2025 9:59 AM EDT ? [facility] ?[address] ?[place] [address] ? Magnetic Resonance Report ? Signed ? Patient: Sapna Herzog ?MR#: M ?? [id number] ? : 1960 ?Acct:[id number] ? Age/Sex: 64 / F ?ADM Date: 04/12/25 ? Loc: HO.MRI ? Attending Dr: Pratik Estes MD ? Ordering Physician: Pratik Estes MD ?? Date of Service: 04/12/25 ?? Procedure(s): MR cervical spine wo con ?? Accession Number(s): [id number] ? cc: Pratik Estes MD; Yi Thompson [...] DD/ 08 ? TD/TT: 04/12/25 0837 ? Tourist Adviser: ? Procedure Note Donotuseinterpreter, Image - 04/12/[address] [address] Magnetic Resonance Report Signed Patient: Sapna Herzog CMR#: [id number] : 9Acct:[id number] Age/Sex: 64 / FADM Date: 04/12/25 Loc: HO.MRI Attending Dr: Pratik Estes MD Ordering Physician: Pratik Estes MD Date of Service: 04/12/25 Procedure(s): MR cervical spine wo con Accession Number(s): [id number] cc: Pratik Estes MD; Yi Thompson MD [...] 04/12/25 0956 DD/ 0821 TD/TT: 04/12/25 0837 Tourist Adviser: [facility] External Provider IMG MRI PROCEDURES Final Result documented in this encounter Visit Diagnoses Diagnosis Hypertension- Primary Unspecified essential hypertension documented in this encounter Additional Health Concerns Assessment Noted Time PHQ-9 Depression Total Score: 1 01/13/20 24 12:16 PM EST documented as of this encounter Care Teams Cell Manager Relationship Specialty Start Date End Date Yi Thompson MD [address] [place] [id number] PCP - General Internal Medicine 08/20/23 documented as of this encounter
== END 2025-04-17 09:51 | disposition home or self-care (01) ==
LOC: HO.HPS 09:09
PROVIDERS: PCP Student in an Organized Health Care Education/Training Program; Visit Provider Hospitalist
DX: R91.8 Other nonspecific abnormal finding of lung field (principal); Z90.89 Acquired absence of other organs
CPT/HCPCS: 99214

== ENCOUNTER → 2025-04-17 09:08 | Outpatient (BNVA) | payer OTHER, SELFPAY | PROVIDERS: PCP Student in an Organized Health Care Education/Training Program; Visit Provider Hospitalist ==

== ENCOUNTER 2025-04-26 08:42 | Outpatient (REF) | payer OTHER, SELFPAY ==
--- OUTSIDE RECORDS SUMMARY | 2025-04-26 09:00 | XMS_ITS | Data Portability ---
Author Organization [place] - [facility], Allergy Address [address] [address] Assessment No assessment recorded. Plan of Treatment [...] contr ast No observ ation record ed. [facility] ([facility] [address] [address], [place], [address], 07/12/2024 17:28:21 07/12/20 24 03/07/2024 CT, neck, soft tissu e, w/ contr ast No observ ation record ed. Not Available 06/17 14:31:41 Result Notes None [...] Available [employer] 4 03:27:19 Oropharyn geal dysphagia 48188712 Active 2023 CHANTEL MEYER MD [address] [facility],[place] [address], [place], [address] , [facility] 4 14:16:46 Acquired vocal cord palsy 345846487 Active 2023 CHANTEL MEYER MD [address] [facility],[place] [address], [place], [address] , [facility] 4 14:27:26 Problem Notes None recorded. Procedures Surgical History Date Name Laterality Status Provider Name and Address Organization Details Recorded Time 07/12/2024 FFL_RE completed CHANTEL MEYER MD [address] [facility],[place] [address], [place], [address], [facility] 07/12/2024 14:20:56 Imaging Results None recorded. Procedure Notes None recorded. Medical Equipment None Reported. Allergies Allergen ID Allergen Name Allergen Category Reaction Reaction Severity Criticality Documentation Date Start Date Code Code System Note Provider Name and Address Organization Details Recorded Time 40631 Product containin g penicilli n (product) medicatio n other Not available Not available 03/29/2024 03759 8006 SNOMED React ion: unkno wn, unspe cifie d;; Not Available [facility] 4 01:03:20 Medications Name Sig Start Date Stop Date Status Note LastModified by Organization Details LastModified Time medbox status USE DIRECTED active Not Available Not Available No t Available freestyle lite test strips strp active Not Available Not Available Not Available losartan 50 mg tablet active Medicati on ID: 52021 Br and Name: losartan Send Method: E-Prescr [...] 40 mg tablet active Medicati on ID: 74679 Br and Name: lovastat in Send Method: E-Prescr ibed Sub s Allowed: subs [place] Medic ationGen ericName : lovastat in Not Available Not Available Not Available amlodipin e 5 mg tablet active Medicati on ID: 25897 Br and Name: amlodipi ne Send Method: [...] Not Available Not Available No t Available [place] Thyroid 15 mg tablet active Medicati on ID: 06326 Br and Name: [place] Thyroid Send Method: E-Prescr ibed Sub s Allowed: subs [place] Medic ationGen ericName : [place] Thyroid Not Available Not Available Not Available amitripty line 25 mg tablet active Medicati on ID: 56416 Br and Name: amitript yline Se nd Method: E-Prescr ibed Sub s Allowed: subs [place] Medic ationGen ericName : amitript yline Not Available Not Available Not Available Protonix 40 mg intraveno us solution active Medicati on ID: 30558 Br and Name: Protonix Send Method: E-Prescr [...] 150 mg capsule active Medicati on ID: 06287 Br and Name: ranitidi ne HCl Send Method: E-Prescr ibed Sub s Allowed: subs [place] Medic ationGen ericName : ranitidi ne HCl Not Available Not Available Not Available hydrochlo rothiazid e 25 mg tablet active Medicati on ID: 35756 Br and Name: hydrochl orothiaz ro Send [...] 17 gram/dose oral powder USE DIRECTED BY [facility] active Not Available Not Available No [...] release 24hr (osmotic) active Medicati on ID: 18568 Br and Name: metformi n Send Method: [...] tablet,de layed release [place] Medicati on ID: 35170 Du ration Value: 30 Brand Name: omeprazo [...] Updated DateTime 07/12/2024 165.1 cm 27.3 kg/m2 32684.15 g [place] [facility] 07/12/2024 14:07:22 Social History None recorded. Functional Status None recorded. Mental Status None recorded. Family History Nothing Reported. Medical History No medical history recorded. Gynecological HistoryNo gynecological history recorded. Obstetrics History GPAL:G 0 P 0 0 0 0 Past Encounters Encounter ID Performer Location Encounter Start Date Encounter Closed Date Diagnosis/Indication Diagnosis SNOMED-CT Code Diagnosis ICD10 Code Diagnosis Note [id number] CHANTEL MEYER MD [facility] [address] [address] 07/12/2024 13:49:31 07/12/2024 16:53:30 Oropharyngeal dysphagia 97788320 R13.12 Likely due to esophageal dysmotilit y. VC paralysis is a factor but doesn't explain her dysphagia to solids. I recommend she discuss GI referral with her PCP. I would be glad to see her as needed. I personally reviewed her imaging reports. Acquired v ocal cord palsy [id number] J38.00 Likely from initial surgery 14 years [...] Name 07/12/2024 1 [facility] [address] Giuseppe Rodriguez [id number] Sapna Garcia 07/12/2024 1 [facility] [address] Giuseppe Rodriguez [id number] Sapna Garcia Notes Date Note Type Note Provider Name and Address Organization Details Recorded Time 07/12/2024 text/html She has a histor y of thyroid cancer. She had thyroidectomy in [place] 14 years ago. She had repeat surgery here 5-6 years ago. She reports her swallowing has been a problem since her first surgery. She had a swallow study at [facility]. She feels like food gets stuck. Has occasional choking with liquids. She has never smoked. She denies throat pain and SOB. I reviewed an Upper GI series which showed esophageal dysmotility. I also reviewed her CT neck with 02/2024 which showed possible right vocal cord paralysis. contrast CHANTEL MEYER MD [address] [place] [address], [place], [address], [facility] - [facility] 07/12/2024 14:28:36 OBGyn Episode No OBEpisode recorded.
[2025-04-26 09:58] LABS: Hematocrit 34.3 % (37.0-47.0); Hemoglobin 10.6 g/dl (12.0-16.0); Immature Retic Fraction 15.3 % (3.0-15.9); Mean Corpuscular HGB Conc 30.9 g/dl (31.0-35.0); Mean Corpuscular Hemoglobin 23.4 pg (27.0-33.0); Mean Corpuscular Volume 75.7 fL (80.0-98.0); Mean Platelet Volume 10.6 fL (9.4-12.3); Platelet Count 255 X10*3/uL (160-400); Red Blood Count 4.53 X10*6/uL (4.20-5.50); Red Cell Distribution Width 15.9 % (11.0-16.0); Retic HGB Equivalent 26.6 pg (30.0-35.0); Reticulocyte Percent 1.4 % (0.5-1.8); Reticulocytes Absolute 0.064 X10*6/uL (0.026-0.095); White Blood Count 5.7 X10*3/uL (4.8-10.8)
[2025-04-26 10:07] LABS: Appearance Urine Clear; Color Urine Yellow; Glucose Urine UA Negative (Negative); Leukocyte Esterase Urine Trace (Negative); Nitrite Urine Negative (Negative); PH 5.5 (5.0-9.0); UMIC TRIGGER UA YES; Urine Blood Negative (Negative); Urine Ketones Negative (Negative); Urine Protein Negative (Neg-Trace)
[2025-04-26 10:10] LABS: Bacteria Urine None Seen (None Seen); Hyaline Casts Urine 0-2 /LPF (0-2); RBC Urine 0-2 /HPF (0-2); WBC Urine 0-5 /HPF (0-5)
[2025-04-26 10:13] LABS: Estimated Average Glucose 154 mg/dL; Hemoglobin A1C 149.3614 umol/L
[2025-04-26 10:37] LABS: Alanine Aminotransferase 25 U/L (0-31); Albumin Level 4.5 g/dL (3.5-5.0); Alkaline Phosphatase 73 U/L (39-117); Anion Gap 12 (12-20); Aspartate Amino Transferase 25 U/L (5-31); Bilirubin Total 0.3 mg/dL (0.0-1.0); Blood Urea Nitrogen 22 mg/dL (9-16); Calcium 8.9 mg/dL (8.4-10.2); Carbon Dioxide 27 mmol/L (22-29); Chloride 104 mmol/L (96-108); Cholesterol 199 mg/dL (<200); Estimated Glomerular Filt Rate > 60; Glucose Random 167 mg/dL (60-115); HDL Cholesterol 36 mg/dL (>40); Iron 36 mcg/dL (30-160); LDL Cholesterol Calculated 125 mg/dL (<100); Percent Iron Saturation 11 % (15-50); Potassium 4.1 mmol/L (3.3-5.1); Sodium 139 mmol/L (135-145); Total Iron Binding Capacity 341 mcg/dL (228-428); Total Protein 7.5 g/dL (6.5-8.0); Triglycerides 191 mg/dL (<150); Unsaturated Iron Binding 305 ug/dL
[2025-04-26 10:53] LABS: Ferritin 9 ng/mL (10-250)
[2025-04-26 10:56] LABS: Folate 11.9 ng/mL (> or = 4.0); Vitamin B12 424 pg/mL (200-900)
[2025-04-26 11:13] LABS: Creatinine Urine 39.44 mg/dL; Microalbumin Urine < 5.0 mg/L
== END 2025-04-26 08:43 | disposition home or self-care (01) ==
LOC: HO.LAB 08:42
PROVIDERS: PCP Student in an Organized Health Care Education/Training Program; Visit Provider Urology
DX: N30.20 Other chronic cystitis without hematuria (principal); D50.9 Iron deficiency anemia, unspecified; R41.3 Other amnesia
CPT/HCPCS: 36415; 80053; 80061; 81001; 82043; 82570; 82607; 82728; 82746; 83036; 83540; 85027; 85045; 87086

== ENCOUNTER 2025-05-17 11:23 | Outpatient (AMB) | payer OTHER, SELFPAY ==
--- NOTE | 2025-05-17 11:28 | MHC.OFFVIS ---
Vital Signs 05/17/25 11:29 Height 5 ft 4 in Weight 149 lb BMI 25.6 BP 125/66 Blood Pressure Location Rt brachial Position Sitting Respiration 20 Pulse 111 H Pulse Source Pulse Oximeter Pulse Oximetry (%) 100 Oxygen Delivery Method Room Air Intake Visit Reasons: Right Knee Pain Padded Products Inspector Trimmer Required: Yes Padded Products Inspector Trimmer Services: Padded Products Inspector Trimmer Present Padded Products Inspector Trimmer Name: [id number] Allergies Penicillins (PENICILLINS) Allergy (Intermediate, Verified 05/17/25 11:32) HIVES HPI Comments Details: Sapna is back in my office With complains on pain in the right side of the lumbar spine. She reports that flexing forward does not change her pain by flexing backwards aggravate her pain. The pain is mostly axial and most likely facetogenic in nature. She had physical therapy low back pain with no effect. I suspected that patient is suffering from spondylosis of the lumbar spine. I offered her diagnostic medial branch block L3, L4, L5. She is under my observation with knee pain for many years. She received [employer] spinal cord stimulator to treat this pain in the knee. Unfortunately the device was not compatible with MRI and I had to remove device to help her to go for MRI. She did not complain on knee pain today. Prior: complains on pain in the right posterior hip with radiation into anterior hip and anterior thigh. She was under care in this office with right knee pain and she received [employer] spinal cord stimulator in the lumbar position L1-L2 L3 to stimulate the dorsal roots of L1-L2 and L3 to help her pain in the knee. Since then she had several falls and she was sent to CT scan with and without contrast. Unfortunately some impedances were lost at her spinal cord stimulator and MRI is contraindicated for her. On the CT scan all levels lumbar spine appears to be normal, see the full dictation as below, accept L5-S1 level where the degenerative disc and endplate changes as well as arthritis. . [facility] Medical History Headache Cognitive disorder Cervical dystonia Palpitations Non-cardiac chest pain Pelvic pain Leg pain Bladder pain Lower abdominal pain Gross hematuria Toe pain Right knee pain Effusion, right knee Dysuria Pelvic pain in female Hematuria Mass of spine Hematuria Type 2 diabetes mellitus with polyneuropathy DM2 (diabetes mellitus, type 2) Nail deformity Paronychia Failure of spinal cord stimulator Thymoma Pulmonary nodules Thyroid cancer Blood in urine Constipation by delayed colonic transit Tubular adenoma of colon Gastritis Hypertension Dyslipidemia Post-surgical hypothyroidism Primary thyroid cancer Vitamin D deficiency Surgical History History of thymectomy History of back surgery Hx of colonoscopy Hx of thyroidectomy Hx of hernia repair Hx of section Hx of hysterectomy History of esophagogastroduodenoscopy (EGD) Family History Father Stroke Heart attack Mother Diabetes mellitus Family/Other Family history of cancer Sister Stomach cancer Family/Other Thyroid cancer Social History Household Members: Spouse, Children and Other Are you a primary care asst to a significant other at home: No Do you presently have visiting nurse or other home services: No Alcohol intake: unknown Patient Tobacco Use Status: Former Tobacco user Tobacco use type: Cigarette Second Hand Smoke Exposure: No Sexual orientation: Straight/Heterosexual Gender identity: Female Review of Systems Const All systems reviewed & are unremarkable except as noted in HPI and below Physical Exam Vital Signs: Last Vital Signs Pulse 111 H 05/17/25 11:29 Resp 20 05/17/25 11:29 BP 125/66 05/17/25 11:29 Pulse Ox 100 05/17/25 11:29 Oxygen Delivery Method Room Air 05/17/25 11:29 BMI result Body Mass Index 25.6 Const General: no acute distress and alert Orientation/consciousness: patient oriented x3 Chest Chest palpation & inspection: normal inspection of the chest Resp Effort & Inspection: normal respiratory effort, able to speak in complete sentences, normal respiratory pattern, no audible wheezes and no cough Cardio Jugular venous distension: no JVD Back/Spine/Pelvis Other: Jay Jay test is equivocal on the right and negative on the left. Flexing forward and flexing backwards aggravate the pain but flexing backwards aggravate pain more than flexing forward. Loading test is positive on the right. Neuro General: patient oriented x3 Extrem Other: Mild bilateral knees effusion, tenderness on palpation, limited range of motion of both knees. Assessment & Plan Assessment & Plan (1) Spondylosis of lumbar region without myelopathy or radiculopathy: Code(s): M47.816 - Spondylosis without myelopathy or radiculopathy, lumbar region Category: Medical (2) Chronic pain syndrome: Code(s): G89.4 - Chronic pain syndrome Category: Medical Plan She is here today for complains in pain in the lower back. It is more on the right side. she did not present any complains on the knee. I will diagnose her with spondylosis of lumbar spine. I will schedule her for right-sided medial branch block L3-L4 dorsal ramus L5. I will see her after the procedure. Coding Level of Care Code Est Pt Level 3 (73825) Diagnoses Spondylosis of lumbar region without myelopathy or radiculopathy M47.816 Chronic pain syndrome G89.4
[2025-05-17 11:29] VITALS: BP 125/66; PULSE 111; RESP 20; O2SAT 100; BMI 25.6
--- OUTSIDE RECORDS SUMMARY | 2025-05-17 12:12 | XMS_ITS | Data Portability ---
Author Organization [place] [facility], Allergy Address [address] [address] Assessment No assessment recorded. Plan of Treatment [...] contr ast No observ ation record ed. [facility] Radiology ([facility]) [address] [facility] [address], [place], [address], 07/12/2024 17:28:21 07/12/20 24 03/07/2024 CT, neck, soft tissu e, w/ contr ast No observ ation record ed. [email or web address] Not Available 06/17 14:31:41 Result Notes None [...] Available [employer] 4 03:27:19 Oropharyn geal dysphagia 12243237 Active 2023 CHANTEL MEYER MD [address] [address], [place], [address] , [facility] 4 14:16:46 Acquired vocal cord palsy 481468584 Active 2023 CHANTEL MEYER MD [address] [place] [address], [place], [address] , [facility] 4 14:27:26 Problem Notes None recorded. Procedures Surgical History Date Name Laterality Status Provider Name and Address Organization Details Recorded Time 07/12/2024 FFL_RE completed CHANTEL MEYER MD [address] [place] [address],[address] [address], [place], [address], [facility] 07/12/2024 14:20:56 Imaging Results None recorded. Procedure Notes None recorded. Medical Equipment None Reported. Allergies Allergen ID Allergen Name Allergen Category Reaction Reaction Severity Criticality Documentation Date Start Date Code Code System Note Provider Name and Address Organization Details Recorded Time 61501 Product containin g penicilli n (product) medicatio n other Not available Not available 03/29/2024 19056 8001 SNOMED React ion: unkno wn, unspe cifie d;; Not Available [facility] 4 01:03:20 Medications Name Sig Start Date Stop Date Status Note LastModified by Organization Details LastModified Time medbox status USE DIRECTED active Not Available Not Available No t Available freestyle lite test strips strp active Not Available Not Available Not Available losartan 50 mg tablet active Medicati on ID: 48487 Br and Name: losartan Send Method: E-Prescr [...] 40 mg tablet active Medicati on ID: 05961 Br and Name: lovastat in Send Method: E-Prescr ibed Sub s Allowed: subs OK Medic ationGen ericName : lovastat in Not Available Not Available Not Available amlodipin e 5 mg tablet active Medicati on ID: 13295 Br and Name: amlodipi ne Send Method: [...] Not Available Not Available No t Available [place] Thyroid 15 mg tablet active Medicati on ID: 90254 Br and Name: [place] Thyroid Send Method: E-Prescr ibed Sub s Allowed: subs OK Medic ationGen ericName : [place] Thyroid Not Available Not Available Not Available amitripty line 25 mg tablet active Medicati on ID: 34219 Br and Name: amitript yline Se nd Method: E-Prescr ibed Sub s Allowed: subs OK Medic ationGen ericName : amitript yline Not Available Not Available Not Available Protonix 40 mg intraveno us solution active Medicati on ID: 76232 Br and Name: Protonix Send Method: E-Prescr [...] 150 mg capsule active Medicati on ID: 58605 Br and Name: ranitidi ne HCl Send Method: E-Prescr ibed Sub s Allowed: subs OK Medic ationGen ericName : ranitidi ne HCl Not Available Not Available Not Available hydrochlo rothiazid e 25 mg tablet active Medicati on ID: 64034 Br and Name: hydrochl orothiaz ro Send [...] 17 gram/dose oral powder USE DIRECTED BY [facility] active Not Available Not Available No [...] release 24hr (osmotic) active Medicati on ID: 58244 Br and Name: metformi n Send Method: [...] tablet,de layed release active Medicati on ID: 73197 Du ration Value: 30 Brand Name: omeprazo [...] Updated DateTime 07/12/2024 165.1 cm 27.3 kg/m2 [address] - [facility] 07/12/2024 14:07:22 Social History None recorded. Functional Status None recorded. Mental Status None recorded. Family History Nothing Reported. Medical History No medical history recorded. Gynecological HistoryNo gynecological history recorded. Obstetrics History GPAL:G 0 P 0 0 0 0 Past Encounters Encounter ID Performer Location Encounter Start Date Encounter Closed Date Diagnosis/Indication Diagnosis SNOMED-CT Code Diagnosis ICD10 Code Diagnosis Note [id number] CHANTEL MEYER MD [facility] [address] [address] 07/12/2024 13:49:31 07/12/2024 16:53:30 Oropharyngeal dysphagia 60210534 R13.12 Likely due to esophageal dysmotilit y. VC paralysis is a factor but doesn't explain her dysphagia to solids. I recommend she discuss GI referral with her PCP. I would be glad to see her as needed. I personally reviewed her imaging reports. Acquired v ocal cord palsy 110700492 J38.00 Likely from initial surgery 14 years [...] Name 07/12/2024 1 [facility] (EPO) [id number] Giuseppe Rodriguez [id number] 691 Sapna Garcia 07/12/2024 1 [facility] [id number] Giuseppe Rodriguez [id number] 691 Sapna Garcia Notes Date Note Type Note Provider Name and Address Organization Details Recorded Time 07/12/2024 text/html She has a histor y of thyroid cancer. She had thyroidectomy in [place] 14 years ago. She had repeat surgery here 5-6 years ago. She reports her swallowing has been a problem since her first surgery. She had a swallow study at [facility]. She feels like food gets stuck. Has occasional choking with liquids. She has never smoked. She denies throat pain and SOB. I reviewed an Upper GI series which showed esophageal dysmotility. I also reviewed her CT neck with 02/2024 which showed possible right vocal cord paralysis. contrast CHANTEL MEYER MD [address] [place] [address], [place], [address], [facility] - [facility] 07/12/2024 14:28:36 OBGyn Episode No OBEpisode recorded.
== END 2025-05-17 11:44 | disposition home or self-care (01) ==
LOC: HO.PMC 11:24
PROVIDERS: PCP Student in an Organized Health Care Education/Training Program; Visit Provider Anesthesiology
DX: M47.816 Spondylosis without myelopathy or radiculopathy, lumbar region (principal); G89.4 Chronic pain syndrome
CPT/HCPCS: 99213

== ENCOUNTER → 2025-05-18 14:30 | Outpatient (REF) | payer OTHER, SELFPAY ==
--- OUTSIDE RECORDS SUMMARY | 2025-05-18 14:33 | XMS_ITS | Encounter Summary ---
Author Organization [employer] Address [address] [place] [address] Care Team Providers Care Certified Real Estate Appraiser Name Role Phone Yi Thompson MD Primary Care Pro vider Reason for Referral * Consultation (Routine) - Authorized Specialty Diagnoses / Procedures Referred By Contac t Referred To Contact Pharmacy Diagnoses Hypertension Maria Del Carmen Meza MD [address] [place] [address] Phone: tel: fax: Referral ID Status Reason Start Date Expiration Date Visits Requested Visits Authorized [id number] Authorized Continuity of Care 04/03/2025 04/03/2026 6 6 Encounter Details Date Type Department Care Team (Late st Contact Info) Description 03/30/2025 Orders Only [facility] [address] [place] [id number] Maria Del Carmen Meza MD [address] [place], [place] [phone] Hypertension (Primary Dx) Social History Tobacco Use [...] Care Team (Late st Contact Info) Description 05/26/2025 11:00 AM EDT Telemedicine [facility] [address] [place] [id number] Remedios Do, PharmD [address] [place] [address] 06/09/2025 11:15 AM EDT Office Visit [facility] [address] [place] [phone] Yi Thompson MD [address] [place] [address] Scheduled Referrals Name Type Priority Associated Diagnoses Orde r Schedule Referral to Pharmacy [place] Outpatient Referral Routine Hypertension Ordered: 04/03/2025 documented as of this encounter Goals Goal Patient Goal Type Associated Problems Recent Progress Patient-Stated? Author Blood Pressure < 140/90 Blood Pressure 126/74(2024 3:30 PM EDT) Jn Petit Hemoglobin A1c < 7 Result Component 7(04/26/2025 9:06 AM EDT) No Jn Shah documented as of this encounter Procedures Procedure Name Priority Date/Time Associated Diagnosis Comments MR CERVICAL SPINE WO CONTRAST Routine 04/12/2025 8:21 AM EDT documented in this encounter Results * MR Cervical Spine w/o Contrast (04/12/2025 8:21 AM EDT) Anatomical Region Laterality Modality Spine, C-spine Magnetic Resonan ce 04/12/2025 8:21 AM EDT Narrative 04/12/2025 9:59 AM EDT [address] [address] Magnetic Resonance Report Signed Patient: Sapna Herzog MR#: [id number] : 1960 Acct:[id number] Age/Sex: 64 / F ADM Date: 04/12/25 Loc: HO.MRI Attending Dr: Pratik Estes MD Ordering Physician: Pratik Estes MD Date of Service: 04/12/25 Procedure(s): MR cervical spine wo con Accession Number(s): [id number] cc: Pratik Estes MD; Yi Thompson MD [...] Andres Kendall MD 04/12/2025 09:56 AM EDT Dictated By: Andres Salcido MD Signed By: <Electronically signed by Andres Armstrong MD in OV> 04/12/25 0956 DD/ 0821 TD/TT: 04/12/25 0837 Variety Performer: Procedure Note Donotuseinterpreter, Image - 04/12/[address] [address] Magnetic Resonance Report Signed Patient: Sapna Herzog CMR#: [id number] : 9Acct:[id number] Age/Sex: 64 / FADM Date: 04/12/25 Loc: HO.MRI Attending Dr: Pratik Estes MD Ordering Physician: Pratik Estes MD Date of Service: 04/12/25 Procedure(s): MR cervical spine wo con Accession Number(s): [id number] cc: Pratik Estes MD; Yi Thompson MD [...] MDin OV> 04/12/25 0956 DD/ 0821 TD/TT: 04/12/2537 Variety Performer: [facility] External Provider IMG MRI PROCEDURES Final Result documented in this encounter Visit Diagnoses Diagnosis Hypertension- Primary Unspecified essential hypertension documented in this encounter Additional Health Concerns Assessment Noted Time PHQ-9 Depression Total Score: 1 01/13/20 24 12:16 PM EST documented as of this encounter Care Teams Certified Real Estate Appraiser Relationship Specialty Start Date End Date Yi Thompson MD [address] [place] [id number] PCP - General Internal Medicine 08/20/23 documented as of this encounter
--- OUTSIDE RECORDS SUMMARY | 2025-05-18 14:34 | XMS_ITS | Data Portability ---
Author Organization [place] - [facility], Allergy Address [address] [address] Assessment No assessment recorded. Plan of Treatment [...] contr ast No observ ation record ed. [facility] Radiology ([facility]) [address] [facility] [address], [place], [address], 07/12/2024 17:28:21 07/12/20 24 03/07/2024 CT, neck, soft tissu e, w/ contr ast No observ ation record ed. [email or web address] Not Available 06/17 14:31:41 Result Notes None [...] Available [employer] 4 03:27:19 Oropharyn geal dysphagia 69567905 Active 2023 CHANTEL MEYER MD [address] [address], [place], [address] , [facility] 4 14:16:46 Acquired vocal cord palsy 717475343 Active 2023 CHANTEL MEYER MD [address] [place] [address], [place], [address] , [facility] 4 14:27:26 Problem Notes None recorded. Procedures Surgical History Date Name Laterality Status Provider Name and Address Organization Details Recorded Time 07/12/2024 FFL_RE completed CHANTEL MEYER MD [address] [place] [address],[address] [address], [place], [address], [facility] 07/12/2024 14:20:56 Imaging Results None recorded. Procedure Notes None recorded. Medical Equipment None Reported. Allergies Allergen ID Allergen Name Allergen Category Reaction Reaction Severity Criticality Documentation Date Start Date Code Code System Note Provider Name and Address Organization Details Recorded Time 36938 Product containin g penicilli n (product) medicatio n other Not available Not available 03/29/2024 27565 8001 SNOMED React ion: unkno wn, unspe cifie d;; Not Available [facility] 4 01:03:20 Medications Name Sig Start Date Stop Date Status Note LastModified by Organization Details LastModified Time medbox status USE DIRECTED active Not Available Not Available No t Available freestyle lite test strips strp active Not Available Not Available Not Available losartan 50 mg tablet active Medicati on ID: 01512 Br and Name: losartan Send Method: E-Prescr [...] 40 mg tablet active Medicati on ID: 46197 Br and Name: lovastat in Send Method: E-Prescr ibed Sub s Allowed: subs OK Medic ationGen ericName : lovastat in Not Available Not Available Not Available amlodipin e 5 mg tablet active Medicati on ID: 13772 Br and Name: amlodipi ne Send Method: [...] Not Available Not Available No t Available [place] Thyroid 15 mg tablet active Medicati on ID: 98028 Br and Name: [place] Thyroid Send Method: E-Prescr ibed Sub s Allowed: subs OK Medic ationGen ericName : [place] Thyroid Not Available Not Available Not Available amitripty line 25 mg tablet active Medicati on ID: 26905 Br and Name: amitript yline Se nd Method: E-Prescr ibed Sub s Allowed: subs OK Medic ationGen ericName : amitript yline Not Available Not Available Not Available Protonix 40 mg intraveno us solution active Medicati on ID: 25373 Br and Name: Protonix Send Method: E-Prescr [...] 150 mg capsule active Medicati on ID: 50294 Br and Name: ranitidi ne HCl Send Method: E-Prescr ibed Sub s Allowed: subs OK Medic ationGen ericName : ranitidi ne HCl Not Available Not Available Not Available hydrochlo rothiazid e 25 mg tablet active Medicati on ID: 37497 Br and Name: hydrochl orothiaz ro Send [...] 17 gram/dose oral powder USE DIRECTED BY [place] [facility] active Not Available Not Available No [...] release 24hr (osmotic) active Medicati on ID: 45262 Br and Name: metformi n Send Method: [...] tablet,de layed release [place]ati [place] ID: 28172 Du ration Value: 30 Brand Name: omeprazo [...] Updated DateTime 07/12/2024 165.1 cm 27.3 kg/m2 97792.15 g [place] [facility] 07/12/2024 14:07:22 Social History None recorded. Functional Status None recorded. Mental Status None recorded. Family History Nothing Reported. Medical History No medical history recorded. Gynecological HistoryNo gynecological history recorded. Obstetrics History GPAL:G 0 P 0 0 0 0 Past Encounters Encounter ID Performer Location Encounter Start Date Encounter Closed Date Diagnosis/Indication Diagnosis SNOMED-CT Code Diagnosis ICD10 Code Diagnosis Note [id number] CHANTEL MEYER MD [facility] [address] [address] 07/12/2024 13:49:31 07/12/2024 16:53:30 Oropharyngeal dysphagia 82890795 R13.12 Likely due to esophageal dysmotilit y. VC paralysis is a factor but doesn't explain her dysphagia to solids. I recommend she discuss GI referral with her PCP. I would be glad to see her as needed. I personally reviewed her imaging reports. Acquired v ocal cord palsy [id number] J38.00 Likely from initial surgery 14 years [...] Name 07/12/2024 1 [facility] (EPO) [id number] Giuseppe Rodriguez [id number] Sapna Garcia 07/12/2024 1 [facility] [id number] Giuseppe Rodriguez [id number] Sapna Garcia Notes Date Note Type Note Provider Name and Address Organization Details Recorded Time 07/12/2024 text/html She has a histor y of thyroid cancer. She had thyroidectomy in [place] 14 years ago. She had repeat surgery here 5-6 years ago. She reports her swallowing has been a problem since her first surgery. She had a swallow study at [facility]. She feels like food gets stuck. Has occasional choking with liquids. She has never smoked. She denies throat pain and SOB. I reviewed an Upper GI series which showed esophageal dysmotility. I also reviewed her CT neck with 02/2024 which showed possible right vocal cord paralysis. contrast CHANTEL MEYER MD [address] [place] [address], [place], [address], [facility] - [facility] 07/12/2024 14:28:36 OBGyn Episode No OBEpisode recorded.
== END ==
LOC: HO.SL 14:30
PROVIDERS: PCP Student in an Organized Health Care Education/Training Program; Visit Provider Physician Assistant Medical
DX: Z13.89 Encounter for screening for other disorder (principal)

== ENCOUNTER 2025-05-26 10:15 | Outpatient (REF) | payer OTHER, SELFPAY ==
--- OUTSIDE RECORDS SUMMARY | 2025-05-26 10:44 | XMS_ITS | Encounter Summary ---
Author Organization [employer] Address [address] [place] [address] Care Team Providers Care Accounting Bookkeeper Name Role Phone Yi Thompson MD Primary Care Pro vider Reason for Referral * Consultation (Routine) - Authorized Specialty Diagnoses / Procedures Referred By Contac t Referred To Contact Pharmacy Diagnoses Hypertension Marai Del Carmen Meza MD [address] [place] [address] Phone: tel: fax: Referral ID Status Reason Start Date Expiration Date Visits Requested Visits Authorized [id number] Authorized Continuity of Care 04/03/2025 04/03/2026 6 6 Encounter Details Date Type Department Care Team (Late st Contact Info) Description 03/30/2025 Orders Only [facility]INE [address] [place] [address] Maria Del Carmen Meza MD [address] [place], [place] [phone] Hypertension (Primary Dx) Social History Tobacco Use [...] Info) Description 05/26/2025 11:00 AM EDT Telemedicine [facility] MED[facility]INE [address] [place] [address] Remedios Do, PharmD [address] [place] [address] 06/09/2025 11:15 AM EDT Office Visit [facility] [address] [place] [address] Yi Thompson MD [address] [place] [address] Scheduled Referrals Name Type Priority Associated Diagnoses [...] EDT Narrative 04/12/2025 9:59 AM EDT [address] [address] Magnetic Resonance Report Signed Patient: Sapna Herzog MR#: [id number] : 1960 Acct:[id number] Age/Sex: 64 / F ADM Date: 04/12/25 Loc: HO.MRI Attending Dr: Pratik Estes MD Ordering Physician: Pratik Estes MD Date of Service: 04/12/25 Procedure(s): MR cervical spine wo con Accession Number(s): [id number] cc: Pratik Estes MD; Yi Thompson MD [...] 04/12/25 0956 DD/ 0821 TD/TT: 04/12/25 0837 Glue Spreader: Procedure Note Donotuseinterpreter, Image - 04/12/[address] [address] Magnetic Resonance Report Signed Patient: Sapna Herzog CMR#: M [id number] : 9Acct:[id number] Age/Sex: 64 / FADM Date: 04/12/25 Loc: HO.MRI Attending Dr: Pratik Estes MD Ordering Physician: Pratik Estes MD Date of Service: 04/12/25 Procedure(s): MR cervical spine wo con Accession Number(s): [id number] cc: Pratik Estes MD; Yi Thompson MD [...] OV> 04/12/25 0956 DD/ 0821 TD/TT: 04/12/2537 Glue Spreader: [facility] External Provider IMG MRI PROCEDURES Final Result documented in this encounter Visit Diagnoses Diagnosis Hypertension- Primary Unspecified essential hypertension documented in this encounter Additional Health Concerns Assessment Noted Time PHQ-9 Depression Total Score: 1 01/13/20 24 12:16 PM EST documented as of this encounter Care Teams Accounting Bookkeeper Relationship Specialty Start Date End Date Yi Thompson MD [address] [place] [address] PCP - General Internal Medicine 08/20/23 documented as of this encounter
--- OUTSIDE RECORDS SUMMARY | 2025-05-26 10:44 | XMS_ITS | Data Portability ---
Author Organization [place] - [facility], Allergy Address [address] [address] Assessment No assessment recorded. Plan of Treatment [...] record ed. [facility] Radiology ([facility]) [address] [facility] [address], [place], [address], 07/12/2024 17:28:21 07/12/20 24 03/07/2024 CT, neck, soft tissu e, w/ contr ast No observ ation record ed. [email or web address] Not Available 06/17 14:31:41 Result Notes None [...] Available [employer] 4 03:27:19 Oropharyn geal dysphagia 46512058 Active 2023 CHANTEL MEYER MD [address] [address], [facility] [place], [address] , [facility] 4 14:16:46 Acquired vocal cord palsy 991973912 Active 2023 CHANTEL MEYER MD [address] [place] [address], [place], [address] , [facility] 4 14:27:26 Problem Notes None recorded. Procedures Surgical History Date Name Laterality Status Provider Name and Address Organization Details Recorded Time 07/12/2024 FFL_RE completed CHANTEL MEYER MD [address] [place] [address],[address] [address], [place], [address], [facility] 07/12/2024 14:20:56 Imaging Results None recorded. Procedure Notes None recorded. Medical Equipment None Reported. Allergies Allergen ID Allergen Name Allergen Category Reaction Reaction Severity Criticality Documentation Date Start Date Code Code System Note Provider Name and Address Organization Details Recorded Time 06996 Product containin g penicilli n (product) medicatio n other Not available Not available 03/29/2024 84895 8001 SNOMED React ion: unkno wn, unspe cifie d;; Not Available [facility] 4 01:03:20 Medications Name Sig Start Date Stop Date Status Note LastModified by Organization Details LastModified Time medbox status USE DIRECTED active Not Available Not Available No t Available freestyle lite test strips strp active Not Available Not Available Not Available losartan 50 mg tablet active Medicati on ID: 39714 Br and Name: losartan Send Method: E-Prescr [...] 40 mg tablet active Medicati on ID: 14052 Br and Name: lovastat in Send Method: E-Prescr ibed Sub s Allowed: subs OK Medic ationGen ericName : lovastat in Not Available Not Available Not Available amlodipin e 5 mg tablet active Medicati on ID: 98938 Br and Name: amlodipi ne Send Method: [...] Not Available Not Available No t Available [place] Thyroid 15 mg tablet active Medicati on ID: 94008 Br and Name: [place] Thyroid Send Method: E-Prescr ibed Sub s Allowed: subs OK Medic ationGen ericName : [place] Thyroid Not Available Not Available Not Available amitripty line 25 mg tablet active Medicati on ID: 76969 Br and Name: amitript yline Se nd Method: E-Prescr ibed Sub s Allowed: subs OK Medic ationGen ericName : amitript yline Not Available Not Available Not Available Protonix 40 mg intraveno us solution active Medicati on ID: 80131 Br and Name: Protonix Send Method: E-Prescr [...] 150 mg capsule active Medicati on ID: 13837 Br and Name: ranitidi ne HCl Send Method: E-Prescr ibed Sub s Allowed: subs OK Medic ationGen ericName : ranitidi ne HCl Not Available Not Available Not Available hydrochlo rothiazid e 25 mg tablet active Medicati on ID: 91344 Br and Name: hydrochl orothiaz ro Send [...] 17 gram/dose oral powder USE DIRECTED BY [facility] active Not Available Not Available No [...] release 24hr (osmotic) active Medicati on ID: 31363 Br and Name: metformi n Send Method: [...] tablet,de layed release [place] Medicati [place] ID: 01834 Du ration Value: 30 Brand Name: omeprazo [...] Updated DateTime 07/12/2024 165.1 cm 27.3 kg/m2 [address].15 g [place] - [facility] 07/12/2024 14:07:22 Social History None recorded. Functional Status None recorded. Mental Status None recorded. Family History Nothing Reported. Medical History No medical history recorded. Gynecological HistoryNo gynecological history recorded. Obstetrics History GPAL:G 0 P 0 0 0 0 Past Encounters Encounter ID Performer Location Encounter Start Date Encounter Closed Date Diagnosis/Indication Diagnosis SNOMED-CT Code Diagnosis ICD10 Code Diagnosis Note [id number] CHANTEL MEYER MD [facility] [address] [address] 07/12/2024 13:49:31 07/12/2024 16:53:30 Oropharyngeal dysphagia 99144021 R13.12 Likely due to esophageal dysmotilit y. VC paralysis is a factor but doesn't explain her dysphagia to solids. I recommend she discuss GI referral with her PCP. I would be glad to see her as needed. I personally reviewed her imaging reports. Acquired v ocal cord palsy [id number] J38.00 Likely from initial surgery 14 years [...] Name 07/12/2024 1 [facility] (EPO[facility] [address] Giuseppe Rodriguez [id number] 691 Sapna Garcia 07/12/2024 1 [facility] [address] Giuseppe Rodriguez [id number] 691 Sapna Garcia Notes Date Note Type Note Provider Name and Address Organization Details Recorded Time 07/12/2024 text/html She has a histor y of thyroid cancer. She had [place]idectomy [place] 14 years ago. She had repeat surgery here 5-6 years ago. She reports her swallowing has been a problem since her first surgery. She had a swallow study at [facility]. She feels like food gets stuck. Has occasional choking with liquids. She has never smoked. She denies throat pain and SOB. I reviewed an Upper GI series which showed esophageal dysmotility. I also reviewed her CT neck with 02/2024 which showed possible right vocal cord paralysis. contrast CHANTEL MEYER MD [address] [place] [address], [place], [address], [facility] - [facility] 07/12/2024 14:28:36 OBGyn Episode No OBEpisode recorded.
[2025-05-26 11:31] LABS: MANUAL DIFF FLAG NO
[2025-05-26 11:51] LABS: Hematocrit 34.8 % (37.0-47.0); Hemoglobin 11.3 g/dl (12.0-16.0); Imm Gran Abs Auto 0.02 X10*3/uL (0.00-0.03); Imm Gran Pct Auto 0.3 % (0.0-0.4); Lymphocytes Absolute Auto 1.8 X10*3/uL (1.2-4.9); Mean Corpuscular HGB Conc 32.5 g/dl (31.0-35.0); Mean Corpuscular Hemoglobin 23.8 pg (27.0-33.0); Mean Corpuscular Volume 73.4 fL (80.0-98.0); NRBC Abs Auto 0.000 X10*3/uL (0.0-0.012); NRBC Pct Auto 0.0 /100WBC (0.0-0.2); Platelet Count 289 X10*3/uL (160-400); Red Blood Count 4.74 X10*6/uL (4.20-5.50); Reticulocytes Absolute 0.056 X10*6/uL (0.026-0.095); White Blood Count 6.3 X10*3/uL (4.8-10.8)
[2025-05-26 11:58] LABS: Hemoglobin A1C 164.4553 umol/L; Total Hemoglobin (HGBA1C) 3010.8214 umol/L
[2025-05-26 12:16] LABS: Alanine Aminotransferase 32 U/L (0-31); Albumin Level 4.7 g/dL (3.5-5.0); Alkaline Phosphatase 76 U/L (39-117); Anion Gap 14 (12-20); Aspartate Amino Transferase 32 U/L (5-31); Blood Urea Nitrogen 15 mg/dL (9-16); Calcium 9.6 mg/dL (8.4-10.2); Carbon Dioxide 29 mmol/L (22-29); Chloride 102 mmol/L (96-108); Cholesterol 243 mg/dL (<200); Estimated Glomerular Filt Rate > 60; Ferritin 9 ng/mL (10-250); HDL Cholesterol 42 mg/dL (>40); Iron 49 mcg/dL (30-160); Percent Iron Saturation 14 % (15-50); Potassium 4.5 mmol/L (3.3-5.1); Sodium 140 mmol/L (135-145); Total Iron Binding Capacity 356 mcg/dL (228-428); Total Protein 7.9 g/dL (6.5-8.0); Triglycerides 221 mg/dL (<150); Unsaturated Iron Binding 307 ug/dL
[2025-05-26 12:33] LABS: Vitamin B12 476 pg/mL (200-900)
== END 2025-05-26 10:16 | disposition home or self-care (01) ==
LOC: HO.HHCL 10:15
PROVIDERS: PCP Student in an Organized Health Care Education/Training Program; Visit Provider Student in an Organized Health Care Education/Training Program
DX: D50.9 Iron deficiency anemia, unspecified (principal); R41.3 Other amnesia; Z13.1 Encounter for screening for diabetes mellitus
CPT/HCPCS: 36415; 80053; 80061; 82043; 82570; 82607; 82728; 83036; 83540; 85025; 85045

== ENCOUNTER 2025-06-01 11:16 | Outpatient (AMB) | payer OTHER, SELFPAY ==
[2025-06-01 11:49] VITALS: BP 118/80; PULSE 102; O2SAT 99; BMI 25.1
--- NOTE | 2025-06-01 11:49 | MHC.OFFVIS ---
Vital Signs 06/01/25 11:49 Height 5 ft 4 in Weight 146 lb 8 oz BMI 25.1 BP 118/80 Blood Pressure Location Rt brachial Position Sitting Pulse 102 H Pulse Source Pulse Oximeter Pulse Oximetry (%) 99 Oxygen Delivery Method Room Air Intake Visit Reasons: 3 mnts f/u Intake Note: Patient presents follow up Migraine/Sleep medication. HST done 05/18. Patients states less frequent migraines with medication. Trimmer Operator Three Knife Required: Yes Trimmer Operator Three Knife Services: Trimmer Operator Three Knife Present Trimmer Operator Three Knife Name: Matthieu [id number] Information Interpreted: non-clinical & clinical Allergies Penicillins (PENICILLINS) Allergy (Intermediate, Verified 06/02/25 09:48) HIVES HPI Comments Details: 64y/o female comes for evaluation of headaches and memory issues. 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 She reports headaches for about 30 years which have increased in frequency, the side of head [id number] and Levator scapulae at the base of her neck r. side are painful on lateral rotation and extension of the head. When she was younger her headaches were accompanied with bouts of emesis, photophobia and phonophobia about 3-4 times a week.She takes Amitriptyline 10mg, and she goes to bed at 9pm and wakes up 3x for the bathroom she is followed by urologist. She has headaches 1/week with a severity of 8/10, denies, emesis, phonophobia/ photophobia. She takes Sumatriptan for episodic headaches, and Amytriptyline 10mg po at bedtime daily for chronic headaches. She has constant occipital headache, that radiates to frontal and retro-orbital region along with neck pain when she moves her head back and it cracks and moves a-lot with blurry vision and she can't focus on objects, she denies n/v, /dizziness and or vertigo. Nov 2020 spinal cord stimulator was removed and now has pain on the R. side of the spine, she f/u with spine clinic for cortisone injections every 3months. She can barely walk, her joints hurt her and is unable to bend over in flexion to pick remover anything, she does not use a cane or a rolling walker. She has inflammation in lower back, legs and knees, has therapy for hands. She takes tylenol everyday for her arthritis so this also helps with headaches. She is able to complete all her ADLs independently and cares for her special needs grandson who is 16 years old. She bathes him and She reports stm difficulties she forgets conversations, she does not drive, misplaces items around the house. Her oversees her tasks and her LTM is stable. [facility] Medical History Headache Cognitive disorder Cervical dystonia Palpitations Non-cardiac chest pain Pelvic pain Leg pain Bladder pain Lower abdominal pain Gross hematuria Toe pain Right knee pain Effusion, right knee Dysuria Pelvic pain in female Hematuria Mass of spine Hematuria Type 2 diabetes mellitus with polyneuropathy DM2 (diabetes mellitus, type 2) Nail deformity Paronychia Failure of spinal cord stimulator Thymoma Pulmonary nodules Thyroid cancer Blood in urine Constipation by delayed colonic transit Tubular adenoma of colon Gastritis Hypertension Dyslipidemia Post-surgical hypothyroidism Primary thyroid cancer Vitamin D deficiency Surgical History History of thymectomy History of back surgery Hx of colonoscopy Hx of thyroidectomy Hx of hernia repair Hx of section Hx of hysterectomy History of esophagogastroduodenoscopy (EGD) Family History Father Stroke Heart attack Mother Diabetes mellitus Family/Other Family history of cancer Sister Stomach cancer Family/Other Thyroid cancer Social History Household Members: Spouse, Children and Other Are you a primary healthcare technician to a significant other at home: No Do you presently have visiting nurse or other home services: No Alcohol intake: unknown Patient Tobacco Use Status: Never used Tobacco Tobacco use type: Cigarette Second Hand Smoke Exposure: No Sexual orientation: Straight/Heterosexual Gender identity: Female Physical Exam Vital Signs: Last Vital Signs Pulse 102 H 06/01/25 11:49 BP 118/80 06/01/25 11:49 Pulse Ox 99 06/01/25 11:49 Oxygen Delivery Method Room Air 06/01/25 11:49 BMI result Body Mass Index 25.1 Const General: no acute distress and alert Nutritional Appearance: average body habitus Orientation/consciousness: patient oriented x3 Eyes Pupils: Equal, round and reactive pupils present Chest Chest palpation & inspection: normal inspection of the chest Resp Effort & Inspection: normal respiratory effort, able to speak in complete sentences, normal respiratory pattern, no audible wheezes and no cough Cardio Jugular venous distension: no JVD Back/Spine/Pelvis Other: Jay Jay test is equivocal on the right and negative on the left. Flexing forward and flexing backwards aggravate the pain but flexing backwards aggravate pain more than flexing forward. Loading test is positive on the right. Neuro Other: head tremors /Right laterocollis Tenderness in Right levator and splenius Flexing forward and flexing backwards aggravate the pain but flexing backwards aggravate pain more than flexing forward. General: patient oriented x3 Cranial nerves: Yes Facial sensation intact/muscles of mastication intact, Yes Equal, round and reactive pupils present, Yes Bilaterally intact EOM present, Yes Nystagmus not present, Yes Normal facial strength present, Yes Midline tongue present and Yes Ability to bilaterally elevate shoulders present Cognition (Neuro): normal cognition Gait exam (Neuro): Normal gait present Motor exam (neuro): Abnormal motor strength present and Abnormal muscle tone present Extrem Other: Mild bilateral knees effusion, tenderness on palpation, limited range of motion of both knees. Psych Appearance: grossly normal Attitude: cooperative Thought process: Normal thought process present Thought content: Normal thought content present Results Reviewed Results Reviewed: May 2025 labs reviewed with patient Anemia ferritin is low/ normal b12 and fasting glucose and A1c is elevated. 03/2024 EMG / NCS IMPRESSION: 1. This is a normal study. 2. There is no electrodiagnostic evidence for median neuropathy, ulnar neuropathy, brachial plexopathy, or cervical radiculopathy. Assessment & Plan Assessment & Plan (1) Cervical dystonia: Code(s): G24.3 - Spasmodic torticollis Category: Medical (2) Cognitive disorder: Code(s): F09 - Unspecified mental disorder due to known physiological condition Category: Medical (3) Headache: Comment: chronic - cervicogenic with migraine features, H/O migraines Code(s): R51.9 - Headache, unspecified Category: Medical Qualifiers: Headache type: cervicogenic headache Qualified Code(s): G44.86 - Cervicogenic headache (4) Anemia: Code(s): D64.9 - Anemia, unspecified Category: Medical Qualifiers: Anemia type: iron deficiency Iron deficiency anemia type: other iron deficiency Qualified Code(s): D50.8 - Other iron deficiency anemias (5) Hx of migraines: Code(s): Z86.69 - Personal history of other diseases of the nervous system and sense organs Category: Medical (6) Spasmodic torticollis: Comment: Head feels like it is a bobble head on a stick. Code(s): G24.3 - Spasmodic torticollis Category: Medical (7) Fatigue due to sleep pattern disturbance: Code(s): R53.83 - Other fatigue; G47.9 - Sleep disorder, unspecified Category: Medical (8) Excessive daytime sleepiness: Comment: HST submitted / patient will discuss with her Code(s): G47.19 - Other hypersomnia Category: Medical (9) Chronic lower back pain: Code(s): M54.50 - Low back pain, unspecified; G89.29 - Other chronic pain Category: Medical Qualifiers: Back pain laterality: bilateral Sciatica presence: unspecified whether sciatica present Qualified Code(s): M54.50 - Low back pain, unspecified; G89.29 - Other chronic pain Plan Excessive daytime fatigue and anemia, HST submitted today to r/o jose antonio. Migraines: Headaches Continue amitriptyline 10 mg qhs Headaches Cervicalgia Sumatriptan 50mg PO take with the onset of headaches may take one more Dystonia? Spasmodic Torticollis? Prior auth for botox and schedule for injection to neck muscles. This will help her neck pain , dystonia and headaches, insurance? Labs reviewed with patient b12 normal, a1c and fasting glucose elevated, vitamin d continue. Ferrous sulfate continue as she has anemia. Lumbar Spondolysis f/u with pain management for l5/s1 lumbar pain block F/u in 3 months Medications: Refilled cholecalciferol (vitamin D3) 62.5 mcg PO QAM 90 caps 2RF sumatriptan succinate take 1 tab at onset of headache; if no relief may repeat 1 tab after at least 2 hrs; max = 4 tabs/24 hr orally PRN; 14 tabs 0RF migraine headache MDD 100mg Z86.69 - Personal history of other diseases of the nervous system and sense organs ferrous sulfate 325 mg PO DAILY 30 tabs 3RF anemia MDD 325mg D64.9 - Anemia, unspecified, G44.86 - Cervicogenic headache amitriptyline 10 mg PO BEDTIME 30 tabs 6RF Patient Instructions: Sleep Hygiene provided: set a scheduled bedtime and wake time to help regulate the circadian rhythm and balance the release of pituitary hormones. Sleep in a dark room, temperatures below 68 degrees, and no devices n bed. Limit caffeinated products 6 hours prior to bed, and limit fluids 2-4 hours prior to bed. Gentle night yoga, diffusing essential oils, and playing soft music can be relaxing. Coding Level of Care Code Est Pt Level 4 (15923) Complex EM visit Add On G2211 Diagnoses Cervical dystonia G24.3 Cognitive disorder F09 Cervicogenic headache G44.86 Headache type: cervicogenic headache Other iron deficiency anemia D50.8 Anemia type: iron deficiency Iron deficiency anemia type: other iron deficiency Hx of migraines Z86.69 Spasmodic torticollis G24.3 Fatigue due to sleep pattern disturbance R53.83; G47.9 Excessive daytime sleepiness G47.19 Chronic bilateral low back pain, unspecified whether sciatica present M54.50; G89.29 Back pain laterality: bilateral Sciatica presence: unspecified whether sciatica present Time Spent (min) 40 Comment
--- OUTSIDE RECORDS SUMMARY | 2025-06-01 12:06 | XMS_ITS | Encounter Summary ---
Author Organization [employer] Address [address] [place] [id number] Care Team Providers Care Stunt Double Name Role Phone Yi Thompson MD Primary Care Pro vider Reason for Referral * Consultation (Routine) - Authorized Specialty Diagnoses / Procedures Referred By Contac t Referred To Contact Pharmacy Diagnoses Hypertension Maria Del Carmen Meza MD [address] [place] [address] Phone: tel: fax: Referral ID Status Reason Start Date Expiration Date Visits Requested Visits Authorized [id number] Authorized Continuity of Care 04/03/2025 04/03/2026 6 6 Encounter Details Date Type Department Care Team (Late st Contact Info) Description 03/30/2025 Orders Only [facility] [address] [place] [id number] Marai Del Carmen Meza MD [address], [place] [phone] Hypertension (Primary Dx) Social History Tobacco Use [...] Care Team (Late st Contact Info) Description 06/09/2025 11:15 AM EDT Office Visit [facility] [address] [place] [address] [phone] Yi Thompson MD [address] [place] [address] Scheduled Referrals Name Type Priority Associated Diagnoses Orde r Schedule Referral to Pharmacy MTM Outpatient Referral Routine Hypertension Ordered: 04/03/2025 documented as of this encounter Goals Goal Patient Goal Type Associated Problems Recent Progress Patient-Stated? Author Blood Pressure < 140/90 Blood Pressure 129/90(2024 11:24 AM EDT) Jn Petit Hemoglobin A1c < 7 Result Component 7.1( 10:35 AM EDT) No Jn Shah documented as of this encounter Procedures Procedure Name Priority Date/Time Associated Diagnosis Comments MR CERVICAL SPINE WO CONTRAST Routine 04/12/2025 8:21 AM EDT documented in this encounter Results * MR Cervical Spine w/o Contrast (04/12/2025 8:21 AM EDT) Anatomical Region Laterality Modality Spine, C-spine Magnetic Resonan ce 04/12/2025 8:21 AM EDT Narrative 04/12/2025 9:59 AM EDT [place] [address] Magnetic Resonance Report Signed Patient: Sapna Herzog MR#: [id number] : 1960 Acct:[id number] Age/Sex: 64 / F ADM Date: 04/12/25 Loc: HO.MRI Attending Dr: Pratik Estes MD Ordering Physician: Pratik Estes MD Date of Service: 04/12/25 Procedure(s): MR cervical spine wo con Accession Number(s): [id number] cc: Pratik Estes MD; Yi Thompson MD [...] 04/12/25 0956 DD/ 0821 TD/TT: 04/12/25 0837 Director Of Environmental Services: Procedure Note Donotuseinterpreter, Image - 04/12/[address] [address] Magnetic Resonance Report Signed Patient: Sapna Herzog CMR#: [id number] : 9Acct:[id number] Age/Sex: 64 / FADM Date: 04/12/25 Loc: HO.MRI Attending Dr: Pratik Estes MD Ordering Physician: Pratik Estes MD Date of Service: 04/12/25 Procedure(s): MR cervical spine wo con Accession Number(s): [id number] cc: Pratik Estes MD; Yi Thompson MD [...] Andres Armstrong MDin OV> 04/12/25 0956 DD/ 0 TD/TT: 04/12/2537 Director Of Environmental Services: [facility] External Provider IMG MRI PROCEDURES Final Result documented in this encounter Visit Diagnoses Diagnosis Hypertension- Primary Unspecified essential hypertension documented in this encounter Additional Health Concerns Assessment Noted Time PHQ-9 Depression Total Score: 1 01/13/20 24 12:16 PM EST documented as of this encounter Care Teams Stunt Double Relationship Specialty Start Date End Date Yi Thompson MD [address] [place] [id number] PCP - General Internal Medicine 08/20/23 documented as of this encounter
--- OUTSIDE RECORDS SUMMARY | 2025-06-01 12:06 | XMS_ITS | Data Portability ---
Author Organization [place] - [facility], Allergy Address [address] [address] Assessment No assessment recorded. Plan of Treatment [...] contr ast No observ ation record ed. [facility]iology ([facility]) [address] [facility] [address], [place], [address], 07/12/2024 17:28:21 07/12/20 24 03/07/2024 CT, neck, soft tissu e, w/ contr ast No observ ation record ed. [email or web address] Not Available 06/17 14:31:41 Result Notes None [...] Available [facility] 4 03:27:19 Oropharyn geal dysphagia [id number] Active 2023 CHANTEL MEYER MD [address] [address], [place], [address] , [facility] 4 14:16:46 Acquired vocal cord palsy [id number] Active 2023 CHANTEL MEYER MD [address] [place] [address], [place], [address] , [facility] 4 14:27:26 Problem Notes None recorded. Procedures Surgical History Date Name Laterality Status Provider Name and Address Organization Details Recorded Time 07/12/2024 FFL_RE completed CHANTEL MEYER MD [address] [place] [address],[address] [address], [place], [address], [facility] 07/12/2024 14:20:56 Imaging Results None recorded. Procedure Notes None recorded. Medical Equipment None Reported. Allergies Allergen ID Allergen Name Allergen Category Reaction Reaction Severity Criticality Documentation Date Start Date Code Code System Note Provider Name and Address Organization Details Recorded Time 69710 Product containin g penicilli n (product) medicatio n other Not available Not available 03/29/2024 34419 8001 SNOMED React ion: unkno wn, unspe cifie d;; Not Available [facility] 4 01:03:20 Medications Name Sig Start Date Stop Date Status Note LastModified by Organization Details LastModified Time medbox status USE DIRECTED active Not Available Not Available No t Available freestyle lite test strips strp active Not Available Not Available Not Available losartan 50 mg tablet active Medicati on ID: 22074 Br and Name: losartan Send Method: E-Prescr [...] 40 mg tablet active Medicati on ID: 94242 Br and Name: lovastat in Send Method: E-Prescr ibed Sub s Allowed: subs OK Medic ationGen ericName : lovastat in Not Available Not Available Not Available amlodipin e 5 mg tablet active Medicati on ID: 66473 Br and Name: amlodipi ne Send Method: [...] Not Available Not Available No t Available [place] Thyroid 15 mg tablet active Medicati on ID: 98180 Br and Name: [place] Thyroid Send Method: E-Prescr ibed Sub s Allowed: subs OK Medic ationGen ericName : [place] Thyroid Not Available Not Available Not Available amitripty line 25 mg tablet active Medicati on ID: 41914 Br and Name: amitript yline Se nd Method: E-Prescr ibed Sub s Allowed: subs OK Medic ationGen ericName : amitript yline Not Available Not Available Not Available Protonix 40 mg intraveno us solution active Medicati on ID: 03579 Br and Name: Protonix Send Method: E-Prescr [...] 150 mg capsule active Medicati on ID: 11934 Br and Name: ranitidi ne HCl Send Method: E-Prescr ibed Sub s Allowed: subs OK Medic ationGen ericName : ranitidi ne HCl Not Available Not Available Not Available hydrochlo rothiazid e 25 mg tablet [place] Medicati on ID: 27254 Br and Name: hydrochl orothiaz ro Send [...] 17 gram/dose oral powder USE DIRECTED BY [facility] active Not Available Not Available No [...] release 24hr (osmotic) active Medicati on ID: 02922 Br and Name: metformi n Send Method: [...] tablet,de layed release active Medicati on ID: 00158 Du ration Value: 30 Brand Name: omeprazo [...] Updated DateTime 07/12/2024 165.1 cm 27.3 kg/m2 86158.15 g [place] [facility] [...] SNOMED-CT Code Diagnosis ICD10 Code Diagnosis Note [id number] CHANTEL MEYER MD [facility] [address] [address] 07/12/2024 13:49:31 07/12/2024 16:53:30 Oropharyngeal dysphagia [id number] R13.12 Likely due to esophageal dysmotilit y. VC paralysis is a factor but doesn't explain her dysphagia to solids. I recommend she discuss GI referral with her PCP. I would be glad to see her as needed. I personally reviewed her imaging reports. Acquired v ocal cord palsy [id number] J38.00 Likely from initial surgery 14 years [...] 1 [facility] (EPO) [id number] Giuseppe Rodriguez [id number] Sapna Garcia 07/12/2024 1 [facility] [address] Giusepep Rodriguez [id number] 691 Sapna Garcia Notes Date Note Type Note Provider Name and Address Organization Details Recorded Time 07/12/2024 text/html She has a histor y of thyroid cancer. She had thyroidectomy in [place] 14 years ago. She had repeat surgery here 5-6 years ago. She reports her swallowing has been a problem since her first surgery. She had a swallow study at [facility]. She feels like food gets stuck. Has occasional choking with liquids. She has never smoked. She denies throat pain and SOB. I reviewed an Upper GI series which showed esophageal dysmotility. I also reviewed her CT neck with 02/2024 which showed possible right vocal cord paralysis. contrast CHANTEL MEYER MD [address] [place] [address], [place], [address], [facility] - [facility] 07/12/2024 14:28:36 OBGyn Episode No OBEpisode recorded.
== END 2025-06-01 13:04 | disposition home or self-care (01) ==
LOC: HO.HSMS 11:16
PROVIDERS: PCP Student in an Organized Health Care Education/Training Program; Visit Provider Physician Assistant Medical
DX: G24.3 Spasmodic torticollis (principal); R41.89 Other symptoms and signs involving cognitive functions and awareness; G44.86 Cervicogenic headache; D50.8 Other iron deficiency anemias; Z86.69 Personal history of other diseases of the nervous system and sense organs; R53.83 Other fatigue; G47.9 Sleep disorder, unspecified; G47.19 Other hypersomnia; M54.50 Low back pain, unspecified; G89.29 Other chronic pain
CPT/HCPCS: 99214

== ENCOUNTER 2025-06-02 09:40 | Day surgery (SDC) | payer OTHER, SELFPAY ==
--- OUTSIDE RECORDS SUMMARY | 2025-05-23 08:39 | XMS_ITS | Encounter Summary ---
Author Organization [employer] Address [address] [place] [address] Care Team Providers Care Cable Installation Technician Name Role Phone Yi Thompson MD Primary Care Pro vider Reason for Referral * Consultation (Routine) - Authorized Specialty Diagnoses / Procedures Referred By Contac t Referred To Contact Pharmacy Diagnoses Hypertension Maria Del Carmen Meza MD [address] [place] [address] Phone: tel: fax: Referral ID Status Reason Start Date Expiration Date Visits Requested Visits Authorized [id number] Authorized Continuity of Care 04/03/2025 04/03/2026 6 6 Encounter Details Date Type Department Care Team (Late st Contact Info) Description 03/30/2025 Orders Only [facility] [address] [place] [address] Maria Del Carmen Meza MD [address] [place], [place] [phone] Hypertension (Primary Dx) Social History Tobacco Use [...] 05/26/2025 11:00 AM EDT Telemedicine [facility] [address] [place] [address] Remedios Do, PharmD [address] [place] [address] 06/09/2025 11:15 AM EDT Office Visit [facility] [address] [place] [address] Yi Thompson MD [address] [place] [address] Scheduled Referrals Name Type Priority Associated Diagnoses [...] AM EDT Narrative 04/12/2025 9:59 AM EDT [address] [address] Magnetic Resonance Report Signed Patient: Sapna Herzog MR#: [id number] : 1960 Acct:[id number] Age/Sex: 64 / F ADM Date: 04/12/25 Loc: HO.MRI Attending Dr: Pratik Estes MD Ordering Physician: Pratik Estes MD Date of Service: 04/12/25 Procedure(s): MR cervical spine wo con Accession Number(s): [id number] cc: Pratik Estes MD; Yi Thompson MD [...] 04/12/25 0956 DD/ 0821 TD/TT: 04/12/25 0837 Svp Group Director: Procedure Note Donotuseinterpreter, Image - 04/12/[address] [address] Magnetic Resonance Report Signed Patient: Sapna Herzog CMR#: M [id number] : 9Acct:[id number] Age/Sex: 64 / FADM Date: 04/12/25 Loc: HO.MRI Attending Dr: Pratik Estes MD Ordering Physician: Pratik Estes MD Date of Service: 04/12/25 Procedure(s): MR cervical spine wo con Accession Number(s): [id number] cc: Pratik Estes MD; Yi Thompson MD [...] OV> 04/12/25 0956 DD/ 0821 TD/TT: 04/12/2537 Svp Group Director: [facility] External Provider IMG MRI PROCEDURES Final Result documented in this encounter Visit Diagnoses Diagnosis Hypertension- Primary Unspecified essential hypertension documented in this encounter Additional Health Concerns Assessment Noted Time PHQ-9 Depression Total Score: 1 01/13/20 24 12:16 PM EST documented as of this encounter Care Teams Cable Installation Technician Relationship Specialty Start Date End Date Yi Thompson MD [address] [place] [phone] PCP - General Internal Medicine 08/20/23 documented as of this encounter
--- OUTSIDE RECORDS SUMMARY | 2025-05-23 08:40 | XMS_ITS | Data Portability ---
Author Organization [place] [facility], Allergy Address [address] [address] Assessment No assessment recorded. Plan of Treatment [...] record ed. [facility] Radiology ([facility]) [address] [facility] [address], [place], [address], 07/12/2024 17:28:21 07/12/20 24 03/07/2024 CT, neck, [...] Available [employer] 4 03:27:19 Oropharyn geal dysphagia 30964736 Active 2023 CHANTEL MEYER MD [address] [address], [place], [address] , [facility] 4 14:16:46 Acquired vocal cord palsy 096486996 Active 2023 CHANTEL MEYER MD [address] [place] [address], [place], [address] , [facility] 4 14:27:26 Problem Notes None recorded. Procedures Surgical History Date Name Laterality Status Provider Name and Address Organization Details Recorded Time 07/12/2024 FFL_RE completed CHANTEL MEYER MD [address] [place] [address],[address] [address], [place], [address], [facility] 07/12/2024 14:20:56 Imaging Results None recorded. Procedure Notes None recorded. Medical Equipment None Reported. Allergies Allergen ID Allergen Name Allergen Category Reaction Reaction Severity Criticality Documentation Date Start Date Code Code System Note Provider Name and Address Organization Details Recorded Time 96301 Product containin g penicilli n (product) medicatio n other Not available Not available 03/29/2024 42215 8001 SNOMED React ion: unkno wn, unspe cifie d;; Not Available [facility] 4 01:03:20 Medications Name Sig Start Date Stop Date Status Note LastModified by Organization Details LastModified Time medbox status USE DIRECTED active Not Available Not Available No t Available freestyle lite test strips strp active Not Available Not Available Not Available losartan 50 mg tablet active Medicati on ID: 79831 Br and Name: losartan Send Method: E-Prescr [...] 40 mg tablet active Medicati on ID: 97212 Br and Name: lovastat in Send Method: E-Prescr ibed Sub s Allowed: subs OK Medic ationGen ericName : lovastat in Not Available Not Available Not Available amlodipin e 5 mg tablet active Medicati on ID: 56777 Br and Name: amlodipi ne Send Method: [...] Not Available Not Available No t Available [place] Thyroid 15 mg tablet active Medicati on ID: 92744 Br and Name: [place] Thyroid Send Method: E-Prescr ibed Sub s Allowed: subs OK Medic ationGen ericName : [place] Thyroid Not Available Not Available Not Available amitripty line 25 mg tablet active Medicati on ID: 48305 Br and Name: amitript yline Se nd Method: E-Prescr ibed Sub s Allowed: subs OK Medic ationGen ericName : amitript yline Not Available Not Available Not Available Protonix 40 mg intraveno us solution active Medicati on ID: 22990 Br and Name: Protonix Send Method: E-Prescr [...] 150 mg capsule active Medicati on ID: 05737 Br and Name: ranitidi ne HCl Send Method: E-Prescr ibed Sub s Allowed: subs OK Medic ationGen ericName : ranitidi ne HCl Not Available Not Available Not Available hydrochlo rothiazid e 25 mg tablet active Medicati on ID: 67279 Br and Name: hydrochl orothiaz ro Send [...] 17 gram/dose oral powder USE DIRECTED BY [facility] active Not Available Not Available No [...] release 24hr (osmotic) active Medicati on ID: 31243 Br and Name: metformi n Send Method: [...] tablet,de layed release [place] Medicati on ID: 48764 Du ration Value: 30 Brand Name: omeprazo [...] Updated DateTime 07/12/2024 165.1 cm 27.3 kg/m2 03008.15 g [place] [facility] [...] SNOMED-CT Code Diagnosis ICD10 Code Diagnosis Note [id number] CHANTEL MEYER MD [facility] [address] [address] 07/12/2024 13:49:31 07/12/2024 16:53:30 Oropharyngeal dysphagia 07099005 R13.12 Likely due to esophageal dysmotilit y. VC paralysis is a factor but doesn't explain her dysphagia to solids. I recommend she discuss GI referral with her PCP. I would be glad to see her as needed. I personally reviewed her imaging reports. Acquired v ocal cord palsy [id number] J38.00 Likely from initial surgery 14 years [...] Name 07/12/2024 1 [facility] ([facility] [id number] Giuseppe Rodriguez [id number] 691 Sapna Garcia 07/12/2024 1 [facility] [address] Giuseppe Rodriguez [id number] Sapna Garcia Notes Date Note Type Note Provider Name and Address Organization Details Recorded Time 07/12/2024 text/html She has a histor y of thyroid cancer. She had thyroidectomy [place] 14 years ago. She had repeat surgery here 5-6 years ago. She reports her swallowing has been a problem since her first surgery. She had a swallow study at [facility]. She feels like food gets stuck. Has occasional choking with liquids. She has never smoked. She denies throat pain and SOB. I reviewed an Upper GI series which showed esophageal dysmotility. I also reviewed her CT neck with 02/2024 which showed possible right vocal cord paralysis. contrast CHANTEL MEYER MD [address] [place] [address], [place], [address], [facility] - [facility] 07/12/2024 14:28:36 OBGyn Episode No OBEpisode recorded.
[2025-05-31 13:38] VITALS: BMI 25.6
--- NOTE | 2025-06-01 09:42 | HO.ANESPROP2 ---
Documented by User: July Ivy NP 06/01/25 09:52 HPI - Anesthesia Eval Consult details Narrative: 64yo F for Right Diagnostic L3-L4- DR L5 Medial Branch Block s/p spinal stim removal 11/2024: s/p thymectomy for thymoma. Follows [facility] [place] [facility]. Last office visit 04/2025. Pt reports some difficulty with inspiration - chest CT and PFT ordered for 1 year out ([address] nml) Anesthesia Pre-Procedure Meds Is the patient on any of the following meds?: GLP1/DPP4 PMFSH Active Problems Active Problems: All Active Problems Chronic pain syndrome (Acute) Cubital tunnel syndrome, bilateral (Acute) Bilateral numbness and tingling of arms and legs (Acute) Fatigue due to sleep pattern disturbance (Acute) Spasmodic torticollis (Acute) Hx of migraines (Acute) Anemia (Acute) Headache (Acute) Cognitive disorder (Acute) Cervical dystonia (Acute) Spondylosis of lumbar region without myelopathy or radiculopathy (Acute) Chronic right SI joint pain (Acute) Sacroiliitis (Acute) Disc degeneration, lumbar (Acute) Vaginitis (Acute) Lumbar radiculopathy (Acute) Back pain (Acute) Fall (Acute) Abnormal stress ECG (Acute) Chest discomfort (Acute) Duplex kidney (Acute) Acute UTI (Acute) Thumb locking (Acute) Palpitations (Acute) Non-cardiac chest pain (Acute) Failure of spinal cord stimulator (Acute) Chronic cystitis (Acute) Varicose veins of right lower extremity with inflammation (Acute) History of thymectomy (Acute) Pulmonary nodules (Acute) Controlled diabetes mellitus with diabetic polyneuropathy (Acute) De Quervain's tenosynovitis, left (Acute) Patellofemoral arthritis of left knee (Acute) Patellofemoral arthritis of right knee (Acute) Chronic pelvic pain in female (Acute) Dyspareunia in female (Acute) Myofascial pain (Acute) Atrophic vaginitis (Acute) Osteoarthritis of right knee (Acute) CRPS (complex regional pain syndrome type I) (Acute) History of thyroid cancer (Acute) Constipation by delayed colonic transit (Acute) Gastritis (Acute) Hypertension (Acute) Dyslipidemia (Acute) Post-surgical hypothyroidism (Acute) Primary thyroid cancer (Acute) Vitamin D deficiency (Acute) Past Medical History Medical History Headache Cognitive disorder Cervical dystonia Palpitations Non-cardiac chest pain Pelvic pain Leg pain Bladder pain Lower abdominal pain Gross hematuria Toe pain Right knee pain Effusion, right knee Dysuria Pelvic pain in female Hematuria Mass of spine Hematuria Type 2 diabetes mellitus with polyneuropathy DM2 (diabetes mellitus, type 2) Nail deformity Paronychia Failure of spinal cord stimulator Thymoma Pulmonary nodules Thyroid cancer Blood in urine Constipation by delayed colonic transit Tubular adenoma of colon Gastritis Hypertension Dyslipidemia Post-surgical hypothyroidism Primary thyroid cancer Vitamin D deficiency Family History Family History Father Stroke Heart attack Mother Diabetes mellitus Family/Other Family history of cancer Sister Stomach cancer Family/Other Thyroid cancer Family history of problems with anesthesia: No Surgical History Surgical History History of thymectomy History of back surgery Hx of colonoscopy Hx of thyroidectomy Hx of hernia repair Hx of section Hx of hysterectomy History of esophagogastroduodenoscopy (EGD) History of Problems with Anesthesia: No Social History Social History Household Members: Spouse, Children and Other Are you a primary medication care manager to a significant other at home: No Do you presently have visiting nurse or other home services: No Alcohol intake: unknown Patient Tobacco Use Status: Former Tobacco user Tobacco use type: Cigarette Second Hand Smoke Exposure: No Advance Directives: No Advance Directives Information Provided: Yes Sexual orientation: Straight/Heterosexual Gender identity: Female Meds Allergies Allergy/AdvReac Type Severity Reaction Status Date / Time Penicillins (PENICILLINS) Allergy Intermediate HIVES Verified 06/02/25 09:48 Home Medications ?Medication ?Instructions ?Recorded ?Confirmed ?Last Taken ?Type albuterol sulfate 90 mcg/actuation 2 puff inhalation Q4-6H PRN 09/05/22 06/02/25 10/20/24 History aerosol inhaler (ProAir HFA) Wheezing metformin 500 mg tablet,extended 500 mg PO BID 11/19/23 06/02/25 06/01/25 History release 24 hr fluticasone propionate 50 1 spray intranasal 03/01/24 04/14/25 Unknown History mcg/actuation nasal spray,suspension montelukast 10 mg tablet 10 mg PO DAILY 03/01/24 06/02/25 Unknown History sitagliptin phosphate 100 mg 100 mg PO DAILY 10/19/24 06/02/25 05/28/25 History tablet (Januvia) losartan 100 1 tab PO DAILY 12/15/24 06/02/25 06/01/25 History mg-hydrochlorothiazide 12.5 mg tablet atorvastatin 10 mg tablet 10 mg PO DAILY 04/14/25 06/02/25 Unknown History Exam Height,Weight and Vital Signs: Height 5 ft 4 in Weight 67.585 kg Pertinent Lab Results Pertinent Lab Results: Laboratory Tests 05/26/25 10:35 WBC 6.3 Hgb 11.3 L Hct 34.8 L Plt Count 289 Sodium 140 Potassium 4.5 Chloride 102 Carbon Dioxide 29 BUN 15 Creatinine 0.74 Narrative Narrative: EKG 11/2024 Vent. Rate : 105 BPM Atrial Rate : 105 BPM P-R Int : 154 ms QRS Dur : 074 ms QT Int : 348 ms P-R-T Axes : 059 007 051 degrees QTc Int : 459 ms Sinus tachycardia Possible Left atrial enlargement Inferior infarct (cited on or before 06-MAY-2023) Abnormal ECG When compared with ECG of 29-JUL-2024 12:05, No significant change was found NM cardiolite stress test 2023 Impression: 1. Myocardial perfusion imaging study shows likely normal myocardial perfusion. 2. Gated LVEF is >70 % during stress and 70% during rest. 3. Transient ischemic dilatation not present. EKG component of the test reported separately. Chest CT 02/2025 IMPRESSION: 1. Stable, likely benign, left lower lobe pulmonary lesion. 2. Hepatic steatosis. Assessment and Plan Assessment Anesthesia Assessment: Chart Reviewed Final Anesthetic Review Family History of Problems with Anesthesia: No History of Problems with Anesthesia: No Documented by User: Mp Keith MD 06/02/25 10:15 HPI - Anesthesia Eval Anesthesia Pre-Procedure Meds If yes to any meds - educate patient: Pt education - increased risk of aspiration and/or euvolemic DKA (she was taking Januvia: stopped 5 days ago) [facility] Past Medical History Medical History Headache Cognitive disorder Cervical dystonia Palpitations Non-cardiac chest pain Pelvic pain Leg pain Bladder pain Lower abdominal pain Gross hematuria Toe pain Right knee pain Effusion, right knee Dysuria Pelvic pain in female Hematuria Mass of spine Hematuria Type 2 diabetes mellitus with polyneuropathy DM2 (diabetes mellitus, type 2) Nail deformity Paronychia Failure of spinal cord stimulator Thymoma Pulmonary nodules Thyroid cancer Blood in urine Constipation by delayed colonic transit Tubular adenoma of colon Gastritis Hypertension Dyslipidemia Post-surgical hypothyroidism Primary thyroid cancer Vitamin D deficiency Functional capacity: independent ambulation Patient : No Family History Family History Father Stroke Heart attack Mother Diabetes mellitus Family/Other Family history of cancer Sister Stomach cancer Family/Other Thyroid cancer Surgical History Surgical History History of thymectomy History of back surgery Hx of colonoscopy Hx of thyroidectomy Hx of hernia repair Hx of section Hx of hysterectomy History of esophagogastroduodenoscopy (EGD) Social History Social History Household Members: Spouse, Children and Other Are you a primary medication care manager to a significant other at home: No Do you presently have visiting nurse or other home services: No Alcohol intake: unknown Patient Tobacco Use Status: Former Tobacco user Tobacco use type: Cigarette Second Hand Smoke Exposure: No Advance Directives: No Advance Directives Information Provided: Yes Sexual orientation: Straight/Heterosexual Gender identity: Female Meds Allergies Allergy/AdvReac Type Severity Reaction Status Date / Time Penicillins (PENICILLINS) Allergy Intermediate HIVES Verified 06/02/25 09:48 Home Medications ?Medication ?Instructions ?Recorded ?Confirmed ?Last Taken ?Type albuterol sulfate 90 mcg/actuation 2 puff inhalation Q4-6H PRN 09/05/22 06/02/25 10/20/24 History aerosol inhaler (ProAir HFA) Wheezing metformin 500 mg tablet,extended 500 mg PO BID 11/19/23 06/02/25 06/01/25 History release 24 hr fluticasone propionate 50 1 spray intranasal 03/01/24 04/14/25 Unknown History mcg/actuation nasal spray,suspension montelukast 10 mg tablet 10 mg PO DAILY 03/01/24 06/02/25 Unknown History sitagliptin phosphate 100 mg 100 mg PO DAILY 10/19/24 06/02/25 05/28/25 History tablet (Januvia) losartan 100 1 tab PO DAILY 12/15/24 06/02/25 06/01/25 History mg-hydrochlorothiazide 12.5 mg tablet atorvastatin 10 mg tablet 10 mg PO DAILY 04/14/25 06/02/25 Unknown History Exam Exam Date and Time: 06/02/2025 Airway TM Dist: >3cm Loose/Missing/Broken Teeth: No Heart: rrr Lungs: cta Other: normal cognition and orientation Assessment and Plan Assessment Anesthesia Assessment: Anesthesia Plan Discussed and Chart Reviewed Final Anesthetic Review NPO: Yes ASA Class: II Final Preanesthetic Review: No Changes in Pt Med Stat, Meds/Allgs Chart Reviewed, Consent Obtained/Reviewed and Anes Risks/Benef Reviewed Patient Risk: Low Procedure Risk: Low Anesthetic Plan Anesthetic Plan: MAC: Disposition: Standard PACU
--- NOTE | ~2025-06-02 | FL_ITS ---
EXAMINATION: FL GUIDANCE ONLY HISTORY: medial branch block COMPARISON: None available. TECHNIQUE: Fluoroscopy time: 20.2 seconds. Cumulative Dose: 5.0515 mGy. DAP: 1.4443 mGym2 Images: 6. FINDINGS: Fluoroscopic spot films of the lumbar spine in the AP projection demonstrate needles and contrast material in the regions of the right L3-4, L4-5, and L5-S1 facet joints. FL/FL guidance in OR IMPRESSION: Fluoroscopy during procedure. Please see procedure report for additional information. Electronically signed by: Milton Duckworth MD 06/02/2025 11:03 AM EDT
--- NOTE | 2025-06-02 09:56 | MHC.SHP ---
Pre-Procedural Eval Section A - 24 Hr Update-Section A only Date of Service: 06/02/25 The patient is an INPATIENT: No Changes since office visit: Yes Patient answered all questions The patient has been examined within 24 hours of the surgical procedure. The History & Physical has been completed within 30 days and I have reviewed it.: No Section B - Complete if H&P > 30 days Chief Complaint: Spondylosis without myelopathy or radiculopathy, l Details of Present Illness: as above Relevant Family History (Specify if Yes): No Relevant Social History: None Present Medications: see Short Stay Collaborative assessment Medical History: No relevant PMH History of Previous Operations: Relevant previous surgery/procedure and date(s) Allergies: Allergies Allergy/AdvReac Type Severity Reaction Status Date / Time Penicillins (PENICILLINS) Allergy Intermediate HIVES Verified 06/02/25 09:48 Review of Systems Sugical H&P ROS: Negative: Constitution, Cardiovascular, Respiratory, Neurological, Psychiatric, Allergic/Immunologic, Gastrointestinal, Genitourinary, Integumentary and Eyes/Ears/Nose/Throat and Yes, Specify: Hem-Onc (Anemia), Musculoskeletal (Spondylosis lumbar, arthritis generalized) and Endocrine (h/o thyroid cancer, hypothyroidism, diabetes mellitus) Exam Surgical H&P Exam: Normal: HEENT, Normal: Heart, Normal: Lungs, Normal: Extremities, Normal: Abdomen, Normal: Skin and Normal: Neurological Plan Diagnosis/Plan: Unchanged I have reviewed the history and physical and performed a pertinent physical examination on my patient. No changes have occurred unless specified. Time Spent With Patient Time: Total time managing care of this patient today _5___ minutes.
[2025-06-02 10:01] VITALS: BP 155/81; PULSE 92; RESP 16; TEMP 36.8; O2SAT 100; BMI 25.1
[2025-06-02 10:09] LABS: Glucose, Whole Blood 148 mg/dL (60-115)
[2025-06-02] MEDS: Lactated Ringers 1,000 ML 100 ML IVCONT (10:11)
[2025-06-02 10:55] VITALS: BP 120/63; PULSE 81; RESP 16; TEMP 36.7; O2SAT 100
[2025-06-02 11:00] VITALS: BP 134/76; PULSE 88; RESP 15; O2SAT 98
--- NOTE | 2025-06-02 11:07 | P.BOP_ITS ---
Brief Operative Note Date of Service: 06/02/25 Pre-op diagnosis: Spondylosis lumbar Post-op diagnosis: same Procedure: Diagnostic medial branch block L3, L4, dorsal ramus L5 on the right. Surgeon: Jcarlos Gee MD Anesthesia: MAC Was an Education And Training Manager used for this Procedure?: No Estimated blood loss (mL): 0 Condition: stable Disposition: PACU
--- NOTE | 2025-06-02 11:08 | P.OP_ITS ---
Operative Note Operative Note Date of Service: 06/02/25 Narrative: Diagnostic medial branch block L3, L4, dorsal ramus L5 on the right. Informed consent was thoroughly explained to the patient using Hospital interpreting services. Risks and benefits were explained. Patient expressed understanding. She was taken to the operating room and positioned prone on operating table. ASA monitors were applied. Patient was minimally sedated. Time-out was performed delineating name and date of of patient, nature of the procedure and laterality of the procedure. The lower back of the patient was prepped with ChloraPrep and draped with sterile self adhesive utility towels, C-arm was brought over the operating field and picture of the lower lumbar spine was demonstrated on the screen. The point of interest were delineated as the confluence of the right superior articular p rocess of the L4 vertebra with corresponding right transfer process of the same vertebra as well as confluence of the silhouette of the right superior articular process of L5 vertebra with transfers process on the right of the same vertebra as well as confluence of the silhouette of the right superior articular process of S1 with right sacral ala. the projection of the point of interest to the skin was injected with small amount of lidocaine 2% with ropivacaine 0.5% one-to-one. After that the 22 gauge 3-1/2 inch needle was inserted through the skin wheals and advanced to were the point of interest. When the tip of the needle gently contacted the bone the small amount of the contrast was injected into the needle demonstrating no intravascular and no intrathecal space of the contrast. After that treatment solution of the ropivacaine 0.5% no more than 1 cc was injected in each point of interest. The needles were removed sterile Band-Aid was applied. The patient tolerated the procedure well.
[2025-06-02 11:15] VITALS: BP 141/78; PULSE 79; RESP 16; TEMP 36.5; O2SAT 100
== END 2025-06-02 12:19 | disposition home or self-care (01) ==
PROVIDERS: PCP Student in an Organized Health Care Education/Training Program; Visit Provider Anesthesiology
PROC: (CPT 64493; principal; 2025-06-02 11:20)
DX: M47.816 Spondylosis without myelopathy or radiculopathy, lumbar region (principal); G89.4 Chronic pain syndrome; R00.2 Palpitations; I10 Essential (primary) hypertension; R51.9 Headache, unspecified; E11.42 Type 2 diabetes mellitus with diabetic polyneuropathy; R91.8 Other nonspecific abnormal finding of lung field; E89.0 Postprocedural hypothyroidism; Z85.850 Personal history of malignant neoplasm of thyroid; R53.83 Other fatigue; Z79.51 Long term (current) use of inhaled steroids; Z79.84 Long term (current) use of oral hypoglycemic drugs; Z79.899 Other long term (current) drug therapy; Z88.0 Allergy status to penicillin; Z98.890 Other specified postprocedural states; Z87.891 Personal history of nicotine dependence
CPT/HCPCS: 64493; 64494; 82947; J2003; J2250; J2704; J2795; J3010; J3301; Q9967

== ENCOUNTER → 2025-06-02 09:40 | Outpatient (BNV) | payer OTHER, SELFPAY | PROVIDERS: PCP Student in an Organized Health Care Education/Training Program; Visit Provider Anesthesiology | DX: M47.816 Spondylosis without myelopathy or radiculopathy, lumbar region (principal) | CPT/HCPCS: 64493; 64494 ==

== ENCOUNTER 2025-06-07 10:12 | Outpatient (AMB) | payer OTHER, SELFPAY ==
--- NOTE | 2025-06-07 10:44 | A.OFFVIS_ITS ---
Vital Signs 06/07/25 10:45 Weight 142 lb BP 136/64 Blood Pressure Location Lt brachial Position Sitting Respiration 18 Pulse 64 Pulse Source Pulse Oximeter Pulse Oximetry (%) 98 Oxygen Delivery Method Room Air Intake Visit Reasons: S/p (R) Dx L3-L4-DR L5 MBB 06/02/25 Personal Driver Required: Yes Personal Driver Name: [id number] Allergies Penicillins (PENICILLINS) Allergy (Intermediate, Verified 06/07/25 10:46) HIVES HPI Comments Details: Sapna is back in my office With complains on pain in the right side of the lumbar spine. She reports that flexing forward does not change her pain by flexing backwards aggravate her pain. I schedule her for right-sided diagnostic medial branch block L3-L4 L5, the patient reported today 2 days after the procedure that her pain was alleviated only for the 1st hour after the procedure, she felt no pain at that time, however 2nd hour her pain became 5 out of 10 and 3rd hour her pain returned to 7/10 as it was before the procedure. Therefore unfortunately I can not offer her any definitive treatment for her condition. I offered her to go to physical therapy and do home exercise program to treat her condition. She is under my observation with knee pain for many years. She received [employer] spinal cord stimulator to treat this pain in the knee. Unfortunately the device was not compatible with MRI and I had to remove device to help her to go for MRI. She did not complain on knee pain today. Prior: complains on pain in the right posterior hip with radiation into anterior hip and anterior thigh. She was under care in this office with right knee pain and she received [employer] spinal cord stimulator in the lumbar position L1-L2 L3 to stimulate the dorsal roots of L1-L2 and L3 to help her pain in the knee. Since then she had several falls and she was sent to CT scan with and without contrast. Unfortunately some impedances were lost at her spinal cord stimulator and MRI is contraindicated for her. On the CT scan all levels lumbar spine appears to be normal, see the full dictation as below, accept L5-S1 level where the degenerative disc and endplate changes as well as arthritis. . [facility] Medical History Headache Cognitive disorder Cervical dystonia Palpitations Non-cardiac chest pain Pelvic pain Leg pain Bladder pain Lower abdominal pain Gross hematuria Toe pain Right knee pain Effusion, right knee Dysuria Pelvic pain in female Hematuria Mass of spine Hematuria Type 2 diabetes mellitus with polyneuropathy DM2 (diabetes mellitus, type 2) Nail deformity Paronychia Failure of spinal cord stimulator Thymoma Pulmonary nodules Thyroid cancer Blood in urine Constipation by delayed colonic transit Tubular adenoma of colon Gastritis Hypertension Dyslipidemia Post-surgical hypothyroidism Primary thyroid cancer Vitamin D deficiency Surgical History History of thymectomy History of back surgery Hx of colonoscopy Hx of thyroidectomy Hx of hernia repair Hx of section Hx of hysterectomy History of esophagogastroduodenoscopy (EGD) Family History Father Stroke Heart attack Mother Diabetes mellitus Family/Other Family history of cancer Sister Stomach cancer Family/Other Thyroid cancer Social History Household Members: Spouse, Children and Other Are you a primary district manager primary care sales to a significant other at home: No Do you presently have visiting nurse or other home services: No Alcohol intake: unknown Patient Tobacco Use Status: Never used Tobacco Tobacco use type: Cigarette Second Hand Smoke Exposure: No Sexual orientation: Straight/Heterosexual Gender identity: Female Review of Systems Const All systems reviewed & are unremarkable except as noted in HPI and below Physical Exam Vital Signs: Last Vital Signs Pulse 64 06/07/25 10:45 Resp 18 06/07/25 10:45 BP 136/64 06/07/25 10:45 Pulse Ox 98 06/07/25 10:45 Oxygen Delivery Method Room Air 06/07/25 10:45 Const General: no acute distress and alert Orientation/consciousness: patient oriented x3 Chest Chest palpation & inspection: normal inspection of the chest Resp Effort & Inspection: normal respiratory effort, able to speak in complete sentences, normal respiratory pattern, no audible wheezes and no cough Cardio Jugular venous distension: no JVD Back/Spine/Pelvis Other: Jay Jay test is equivocal on the right and negative on the left. Flexing forward and flexing backwards aggravate the pain but flexing backwards aggravate pain more than flexing forward. Loading test is positive on the right. Neuro General: patient oriented x3 Extrem Other: Mild bilateral knees effusion, tenderness on palpation, limited range of motion of both knees. Results Reviewed Results Reviewed: LUMBAR SPINE WITHOUT CONTRAST CLINICAL INFORMATION: Evaluate for disc herniation, patient has spinal cord stimulator COMPARISON: Lumbar spine radiograph 05/04/2024 TECHNIQUE: Noncontrast axial 1.5 and 2 mm sections through the lumbar spine were obtained. Coronal and sagittal reformats were obtained at the acquisition workstation. This CT examination was performed using dose optimization techniques as appropriate, variously including the following: *Automated exposure control *Adjustment of mA and/or kV according to patient size (this includes techniques or standardized protocols for targeted exams where dose is matched to indication/reason for exam; i.e. extremities or head) *Use of iterative reconstruction technique DLP; 386 mGy-cm FINDINGS: No acute fracture involving the lumbar spine. The lumbar vertebral bodies demonstrate normal height. Overall sagittal alignment appears maintained. There is moderate intervertebral disc space narrowing with intradiscal vacuum phenomena and endplate degenerative changes at L5-S1. Again noted generator device in the right gluteal subcutaneous soft tissues with intact stimulator lead terminating within the lumbar spinal canal at the level of L1. The paravertebral soft tissues appear unremarkable. Mild aortoiliac atherosclerosis. Few sigmoid colonic diverticula. Mild degenerative changes involving bilateral sacroiliac joints. T12-L1:No spinal canal or foraminal stenosis. L1-L2: No spinal canal or foraminal stenosis. L2- L3: No spinal canal or foraminal stenosis. L3-L4:No spinal canal or foraminal stenosis.Mild facet arthropathy. L4-L5: Minimal disc bulge. No spinal canal or foraminal stenosis. Mild facet arthropathy. L5-S1: Disc bulge with superimposed left paracentral disc protrusion and left subarticular stenosis. There is likely mass effect on the left S1 traversing nerve root, although not well evaluated on CT. No significant right-sided foraminal stenosis. Moderate to severe bilateral facet arthropathy.Mild right and [id number]-ihhlvuec left foraminal stenosis. IMPRESSION: At L5-S1, there is disc bulge with superimposed left paracentral disc protrusion and left subarticular stenosis.There is likely mass effect on the left S1 traversing nerve root, although not well evaluated on CT. Moderate to severe bilateral facet arthropathy.Mild right and [id number] left foraminal stenosis. Mild facet arthropathy at L3-4 and L4-L5.. Assessment & Plan Assessment & Plan (1) Spondylosis of lumbar region without myelopathy or radiculopathy: Code(s): M47.816 - Spondylosis without myelopathy or radiculopathy, lumbar region Category: Medical (2) Chronic pain syndrome: Code(s): G89.4 - Chronic pain syndrome Category: Medical Plan Diagnostic medial branch block resulted in no significant pain improvement longer than 6 hours. Some pain improvement for 1st 2 hours but at our 3 pain returned to the pre-injection level. Therefore her pain can not be considered as the facetogenic pain. I offered her to go to physical therapy and she agreed to do so. I recommended her to perform home exercise programs every day 3 times at least 15 minutes at a time. She expressed understanding. Patient Instructions: I here by testify that I spent 30 minutes in conversation with this patient as well as planning her care and organizing this note. The site interpreter from [employer] [id number] was helping us to maintain this conversation in Bangladeshi. Coding Level of Care Code Est Pt Level 4 (70081) Diagnoses Spondylosis of lumbar region without myelopathy or radiculopathy M47.816 Chronic pain syndrome G89.4
[2025-06-07 10:45] VITALS: BP 136/64; PULSE 64; RESP 18; O2SAT 98
--- OUTSIDE RECORDS SUMMARY | 2025-06-07 11:09 | XMS_ITS | Data Portability ---
Author Organization [place] [facility], Allergy Address [address] [address] Assessment No assessment recorded. Plan of Treatment [...] contr ast No observ ation record ed. [facility] Radiology ([facility]) [address] [facility] [address], [place], [address], 07/12/2024 17:28:21 07/12/20 24 03/07/2024 CT, neck, soft tissu e, w/ contr ast No observ ation record ed. [email or web address] Not Available 06/17 14:31:41 Result Notes None [...] Available [employer] 4 03:27:19 Oropharyn geal dysphagia 73005016 Active 2023 CHANTEL MEYER MD [address] [address], [place], [address] , [facility] 4 14:16:46 Acquired vocal cord palsy 860412914 Active 2023 CHANTEL MEYER MD [address] [place] [address], [place], [address] , [facility] 4 14:27:26 Problem Notes None recorded. Procedures Surgical History Date Name Laterality Status Provider Name and Address Organization Details Recorded Time 07/12/2024 FFL_RE completed CHANTEL MEYER MD [address] [place] [address],[place] [address], [place], [address], [facility] 07/12/2024 14:20:56 Imaging Results None recorded. Procedure Notes None recorded. Medical Equipment None Reported. Allergies Allergen ID Allergen Name Allergen Category Reaction Reaction Severity Criticality Documentation Date Start Date Code Code System Note Provider Name and Address Organization Details Recorded Time 76883 Product containin g penicilli n (product) medicatio n other Not available Not available 03/29/2024 21374 8001 SNOMED React ion: unkno wn, unspe cifie d;; Not Available [facility] 4 01:03:20 Medications Name Sig Start Date Stop Date Status Note LastModified by Organization Details LastModified Time medbox status USE DIRECTED active Not Available Not Available No t Available freestyle lite test strips strp active Not Available Not Available Not Available losartan 50 mg tablet active Medicati on ID: 12999 Br and Name: losartan Send Method: E-Prescr [...] 40 mg tablet active Medicati on ID: 78455 Br and Name: lovastat in Send Method: E-Prescr ibed Sub s Allowed: subs OK Medic ationGen ericName : lovastat in Not Available Not Available Not Available amlodipin e 5 mg tablet active Medicati on ID: 92703 Br and Name: amlodipi ne Send Method: [...] Not Available Not Available No t Available [place] Thyroid 15 mg tablet active Medicati on ID: 10396 Br and Name: [place] Thyroid Send Method: E-Prescr ibed Sub s Allowed: subs OK Medic ationGen ericName : [place] Thyroid Not Available Not Available Not Available amitripty line 25 mg tablet active Medicati on ID: 06086 Br and Name: amitript yline Se nd Method: E-Prescr ibed Sub s Allowed: subs OK Medic ationGen ericName : amitript yline Not Available Not Available Not Available Protonix 40 mg intraveno us solution active Medicati on ID: 09386 Br and Name: Protonix Send Method: E-Prescr [...] 150 mg capsule active Medicati on ID: 97668 Br and Name: ranitidi ne HCl Send Method: E-Prescr ibed Sub s Allowed: subs OK Medic ationGen ericName : ranitidi ne HCl Not Available Not Available Not Available hydrochlo rothiazid e 25 mg tablet active Medicati on ID: 37535 Br and Name: hydrochl orothiaz ro Send [...] 17 gram/dose oral powder USE DIRECTED BY [facility] active Not Available Not Available No [...] release 24hr (osmotic) active Medicati on ID: 72660 Br and Name: metformi n Send Method: [...] tablet,de layed release [place] Medicati [place] ID: 58814 Du ration Value: 30 Brand Name: omeprazo [...] Updated DateTime 07/12/2024 165.1 cm 27.3 kg/m2 60629.15 g [place] [facility] 07/12/2024 14:07:22 Social History None recorded. Functional Status None recorded. Mental Status None recorded. Family History Nothing Reported. Medical History No medical history recorded. Gynecological HistoryNo gynecological history recorded. Obstetrics History GPAL:G 0 P 0 0 0 0 Past Encounters Encounter ID Performer Location Encounter Start Date Encounter Closed Date Diagnosis/Indication Diagnosis SNOMED-CT Code Diagnosis ICD10 Code Diagnosis Note [id number] CHANTEL MEYER MD [facility] [address] [address] 07/12/2024 13:49:31 07/12/2024 16:53:30 Oropharyngeal dysphagia 24003622 R13.12 Likely due to esophageal dysmotilit y. VC paralysis is a factor but doesn't explain her dysphagia to solids. I recommend she discuss GI referral with her PCP. I would be glad to see her as needed. I personally reviewed her imaging reports. Acquired v ocal cord palsy [id number] J38.00 Likely from initial surgery 14 years [...] Name 07/12/2024 1 [facility] (EPO) [id number] Giuseppe Rodriguez [id number] [address] 07/12/2024 1 [facility] [address] Giuseppe Rodriguez [id number] [address] Notes Date Note Type Note Provider Name and Address Organization Details Recorded Time 07/12/2024 text/html She has a histor y of thyroid cancer. She had [place]idectomy [place] 14 years ago. She had repeat surgery here 5-6 years ago. She reports her swallowing has been a problem since her first surgery. She had a swallow study at [facility]. She feels like food gets stuck. Has occasional choking with liquids. She has never smoked. She denies throat pain and SOB. I reviewed an Upper GI series which showed esophageal dysmotility. I also reviewed her CT neck with 02/2024 which showed possible right vocal cord paralysis. contrast CHANTEL MEYER MD [address] [place] [address], [place], [address], [facility] 07/12/2024 14:28:36 OBGyn Episode No OBEpisode recorded.
--- OUTSIDE RECORDS SUMMARY | 2025-06-07 11:09 | XMS_ITS | Encounter Summary ---
Author Organization [employer] Address [address] [place] [address] Care Team Providers Care Philosophy Faculty Member Name Role Phone Yi Thompson MD Primary Care Pro vider Encounter Details Date Type Department Care Team (Late st Contact Info) Description 06/02/2025 Orders Only [facility] MEDICINE [address] [place] [address] Yi Thompson MD [address] [place] [address] Type 2 diabetes mellitus without complication, without long-term current use of insulin ([facility]) Social History Tobacco Use Types Packs/Day Years [...] Answer Date Recorded Patient Health Questionnaire-9 Score 0 04/06/2025 Patient Health Questionnaire-9 Score 0 04/06/2025 Last PHQ-9: Questionnaire Data Not on file 0 04/06/2025 Housing Stability Answer Date Recorded What is [...] the past 12 months, has t he [employer], gas, oil or water company threatened to shut off services in your home? No 08/31/2023 Depression Answer Date Recorded Patient Health Questionnaire-2 Score 0 04/06/2025 Internet Access Answer Date Recorded Internet Access [...] Description 06/09/2025 11:15 AM EDT Office Visit [facility] MEDICINE [address] [place] [address] Yi Thompson MD [address] [place] [address] documented as of this encounter Goals Goal Patient Goal Type Associated Problems Recent Progress Patient-Stated? Author Blood Pressure < 140/90 Blood Pressure 129/90(2024 11:24 AM EDT) No Jn Shah Hemoglobin A1c < 7 Result Component 7.1( 10:35 AM EDT) No Jn Shah documented as of this encounter Visit Diagnoses Diagnosis Type 2 diabetes mellitus without complication, without long-term current use of insulin ([facility]) documented in this encounter Additional Health Concerns Assessment Noted Time PHQ-9 Depression Total Score: 0 04/06/20 25 11:08 AM EDT documented as of this encounter Care Teams Philosophy Faculty Member Relationship Specialty Start Date End Date Yi Thompson MD [address] [place] [address] PCP - General Internal Medicine 08/20/23 documented as of this encounter
== END 2025-06-07 11:04 | disposition home or self-care (01) ==
LOC: HO.PMC 10:13
PROVIDERS: PCP Student in an Organized Health Care Education/Training Program; Visit Provider Anesthesiology
DX: M47.816 Spondylosis without myelopathy or radiculopathy, lumbar region (principal); G89.4 Chronic pain syndrome
CPT/HCPCS: 99214

== ENCOUNTER 2025-06-08 10:35 | Outpatient (AMB) | payer OTHER, SELFPAY ==
[2025-06-08 10:43] VITALS: BP 112/82; BMI 25.3
--- NOTE | 2025-06-08 10:43 | MHC.OFFVIS ---
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 Pain/do not jorge Swing Grinder Required: Yes Information Interpreted: clinical only ([place]) Zinc Furnace Charger: Zinc Furnace Charger Present (modesta/ anju) Accompanied by: Self / Same As Patient Allergies Penicillins (PENICILLINS) Allergy (Intermediate, Verified 06/08/25 10:44) HIVES Post menopausal: Yes HPI Comments Details: Presenting complaining of bilateral pelvic pain of many years duration no associated vaginal discharge or bleeding PFSH Medical History Headache Cognitive disorder Cervical dystonia Palpitations Non-cardiac chest pain Pelvic pain Leg pain Bladder pain Lower abdominal pain Gross hematuria Toe pain Right knee pain Effusion, right knee Dysuria Pelvic pain in female Hematuria Mass of spine Hematuria Type 2 diabetes mellitus with polyneuropathy DM2 (diabetes mellitus, type 2) Nail deformity Paronychia Failure of spinal cord stimulator Thymoma Pulmonary nodules Thyroid cancer Blood in urine Constipation by delayed colonic transit Tubular adenoma of colon Gastritis Hypertension Dyslipidemia Post-surgical hypothyroidism Primary thyroid cancer Vitamin D deficiency Surgical History History of thymectomy History of back surgery Hx of colonoscopy Hx of thyroidectomy Hx of hernia repair Hx of section Hx of hysterectomy History of esophagogastroduodenoscopy (EGD) Family History Father Stroke Heart attack Mother Diabetes mellitus Family/Other Family history of cancer Sister Stomach cancer Family/Other Thyroid cancer Social History (Updated 06/08/25 @ 10:51 by Anju Mejia MA) Household Members: Spouse, Family and Other Household Members Other:: grandson Housing: Apartment Are you a primary care tech to a significant other at home: No Do you presently have visiting nurse or other home services: No Alcohol intake: former Comment: socially Patient Tobacco Use Status: Never used Tobacco Tobacco use type: Cigarette Second Hand Smoke Exposure: No service: No Sexually active: Yes Sexual orientation: Straight/Heterosexual Gender identity: Female Female Reproductive History Menstrual Age of Menarche: 13 Duration of menses: 6-7 days control method: permanent sterilization Total pregnancies: 3 Full term: 3 Number of Living Children: 3 History of abnormal pap smear: No History of abnormal mammogram: No Review of Systems Const All systems reviewed & are unremarkable except as noted in HPI and below Card Reports as per HPI and Reports no additional complaints Resp Reports as per HPI and Reports no additional complaints GI Reports as per HPI and Reports no additional complaints Reports as per HPI Physical Exam Vital Signs: Last Vital Signs BP 112/82 06/08/25 10:43 BMI result Body Mass Index 25.3 Const General: cooperative, healthy appearing and comfortable General: Yes bladder normal to palpation External Female Exam: No lesion Speculum Exam - Vagina: normal appearance of the vagina, normal vaginal discharge and not erythematous Speculum Exam - Cervix: Cervix absent Bimanual exam- vagina & uterus: bladder normal to palpation and uterus absent Bimanual Exam- Adnexa, other: Other (No masses detected) Assessment & Plan Assessment & Plan (1) Chronic pelvic pain in female: Comment: History of chronic cystitis Code(s): R10.2 - Pelvic and perineal pain; G89.29 - Other chronic pain Category: Medical Plan: Urine dip done in the office was negative. BV panel taken and pelvic ultrasound ordered. Discussed with the patient the differential diagnosis of pelvic pain including but not limited to adnexal masses, GI the (Irritable bowel syndrome, diverticulitis, others), musculoskeletal, myofascial pain abdominal wall , adhesions, endometriosis, psychological and others causes. Will check results and treat accordingly. All questions answered, the patient verbalized understanding. Instructed the patient to schedule an ultrasound and a follow-up appointment in 2 weeks. All questions answered, the patient verbalized understanding and agreed with the plan. Coding Level of Care Code Est Pt Level 3 (86715) Diagnoses Chronic pelvic pain in female R10.2; G89.29
--- OUTSIDE RECORDS SUMMARY | 2025-06-08 11:28 | XMS_ITS | Data Portability ---
Author Organization [place] [facility], Allergy Address [address] [address] Assessment No assessment recorded. Plan of Treatment [...] contr ast No observ ation record ed. [facility] Radiology ([facility]) [address] [facility] [address], [place], [address], 07/12/2024 17:28:21 07/12/20 24 03/07/2024 CT, neck, soft tissu e, w/ contr ast No observ ation record ed. [email or web address] Not Available 06/17 14:31:41 Result Notes None [...] Available [employer] 4 03:27:19 Oropharyn geal dysphagia 46324905 Active 2023 CHANTEL MEYER MD [address] [address], [place], [address] , [facility] 4 14:16:46 Acquired vocal cord palsy 647952680 Active 2023 CHANTEL MEYER MD [address] [place] [address], [place], [address] , [facility] 4 14:27:26 Problem Notes None recorded. Procedures Surgical History Date Name Laterality Status Provider Name and Address Organization Details Recorded Time 07/12/2024 FFL_RE completed CHANTEL MEYER MD [address] [place] [address],[place] [address], [place], [address], [facility] 07/12/2024 14:20:56 Imaging Results None recorded. Procedure Notes None recorded. Medical Equipment None Reported. Allergies Allergen ID Allergen Name Allergen Category Reaction Reaction Severity Criticality Documentation Date Start Date Code Code System Note Provider Name and Address Organization Details Recorded Time 17045 Product containin g penicilli n (product) medicatio n other Not available Not available 03/29/2024 01379 8001 SNOMED React ion: unkno wn, unspe cifie d;; Not Available [facility] 4 01:03:20 Medications Name Sig Start Date Stop Date Status Note LastModified by Organization Details LastModified Time medbox status USE DIRECTED active Not Available Not Available No t Available freestyle lite test strips strp active Not Available Not Available Not Available losartan 50 mg tablet active Medicati on ID: 94094 Br and Name: losartan Send Method: E-Prescr [...] 40 mg tablet active Medicati on ID: 04292 Br and Name: lovastat in Send Method: E-Prescr ibed Sub s Allowed: subs OK Medic ationGen ericName : lovastat in Not Available Not Available Not Available amlodipin e 5 mg tablet active Medicati on ID: 33616 Br and Name: amlodipi ne Send Method: [...] Not Available Not Available No t Available [place] Thyroid 15 mg tablet active Medicati on ID: 55020 Br and Name: [place] Thyroid Send Method: E-Prescr ibed Sub s Allowed: subs OK Medic ationGen ericName : [place] Thyroid Not Available Not Available Not Available amitripty line 25 mg tablet active Medicati on ID: 93820 Br and Name: amitript yline Se nd Method: E-Prescr ibed Sub s Allowed: subs OK Medic ationGen ericName : amitript yline Not Available Not Available Not Available Protonix 40 mg intraveno us solution active Medicati on ID: 74145 Br and Name: Protonix Send Method: E-Prescr [...] 150 mg capsule active Medicati on ID: 96073 Br and Name: ranitidi ne HCl Send Method: E-Prescr ibed Sub s Allowed: subs OK Medic ationGen ericName : ranitidi ne HCl Not Available Not Available Not Available hydrochlo rothiazid e 25 mg tablet active Medicati on ID: 01104 Br and Name: hydrochl orothiaz ro Send [...] gram/dose oral powder USE DIRECTED BY [facility] active Not Available Not Available [...] release 24hr (osmotic) active Medicati on ID: 33597 Br and Name: metformi n Send Method: [...] tablet,de layed release [place] Medicati on ID: 29498 Du ration Value: 30 Brand Name: omeprazo [...] Updated DateTime 07/12/2024 165.1 cm 27.3 kg/m2 42217.15 g [place] [facility] 07/12/2024 14:07:22 Social History None recorded. Functional Status None recorded. Mental Status None recorded. Family History Nothing Reported. Medical History No medical history recorded. Gynecological HistoryNo gynecological history recorded. Obstetrics History GPAL:G 0 P 0 0 0 0 Past Encounters Encounter ID Performer Location Encounter Start Date Encounter Closed Date Diagnosis/Indication Diagnosis SNOMED-CT Code Diagnosis ICD10 Code Diagnosis Note [id number] CHANTEL MEYER MD [facility] [address] [address] 07/12/2024 13:49:31 07/12/2024 16:53:30 Oropharyngeal dysphagia 06926519 R13.12 Likely due to esophageal dysmotilit y. VC paralysis is a factor but doesn't explain her dysphagia to solids. I recommend she discuss GI referral with her PCP. I would be glad to see her as needed. I personally reviewed her imaging reports. Acquired v ocal cord palsy [id number] J38.00 Likely from initial surgery 14 years [...] Name 07/12/2024 1 [facility] (EPO) [id number] Giuseppe Rodriguez [id number] [address] 07/12/2024 1 [facility] [address] Giuseppe Rodriguez [id number] Notes Date Note Type Note Provider Name and Address Organization Details Recorded Time 07/12/2024 text/html She has a histor y of thyroid cancer. She had [place]idectomy in [place] 14 years ago. She had repeat surgery here 5-6 years ago. She reports her swallowing has been a problem since her first surgery. She had a swallow study at [facility]. She feels like food gets stuck. Has occasional choking with liquids. She has never smoked. She denies throat pain and SOB. I reviewed an Upper GI series which showed esophageal dysmotility. I also reviewed her CT neck with 02/2024 which showed possible right vocal cord paralysis. contrast CHANTEL MEYER MD [address] [place] [address], [place], [address], [facility] - [facility] 07/12/2024 14:28:36 OBGyn Episode No OBEpisode recorded.
--- OUTSIDE RECORDS SUMMARY | 2025-06-08 11:28 | XMS_ITS | Encounter Summary ---
Author Organization [employer] Address [address] [place] [address] Care Team Providers Care Assistant [employer] Public Defender Name Role Phone Yi Thmopson MD Primary Care Pro vider Reason for Referral * Consultation (Routine) - Authorized Specialty Diagnoses / Procedures Referred By Contac t Referred To Contact Pharmacy Diagnoses Hypertension Maria Del Carmen Meza MD [address] [place] [address] Phone: tel: fax: Referral ID Status Reason Start Date Expiration Date Visits Requested Visits Authorized [id number] Authorized Continuity of Care 04/03/2025 04/03/2026 6 6 Encounter Details Date Type Department Care Team (Late st Contact Info) Description 03/30/2025 Orders Only [facility] MEDICINE [address] [place] [address] Maria Del Carmen Meza MD [address] [place], [place] [phone] Hypertension (Primary Dx) Social History Tobacco Use [...] Description 06/09/2025 11:15 AM EDT Office Visit [facility] MEDICINE [address] [place] [phone] Yi Thompson MD [address] [place] [address] Scheduled Referrals Name Type Priority Associated Diagnoses [...] AM EDT Narrative 04/12/2025 9:59 AM EDT [place] [address] Magnetic Resonance Report Signed Patient: Sapna Herzog MR#: [id number] : 1960 Acct:[id number] Age/Sex: 64 / F ADM Date: 04/12/25 Loc: HO.MRI Attending Dr: Pratik Estes MD Ordering Physician: Pratik Estes MD Date of Service: 04/12/25 Procedure(s): MR cervical spine wo con Accession Number(s): [id number] cc: Pratik Estes MD; Yi Thompson MD [...] 04/12/25 0956 DD/ 0821 TD/TT: 04/12/25 0837 Data Services Developer: Procedure Note Donotuseinterpreter, Image - 04/12/[address] [address] Magnetic Resonance Report Signed Patient: Sapna Herzog CMR#: [id number] : 9Acct:[id number] Age/Sex: 64 / FADM Date: 04/12/25 Loc: HO.MRI Attending Dr: Pratik Estes MD Ordering Physician: Pratik Estes MD Date of Service: 04/12/25 Procedure(s): MR cervical spine wo con Accession Number(s): [id number] cc: Pratik Estes MD; Yi Thompson MD [...] Salcido MD Signed By: <Electronically signed by Anders Armstrong MDin OV> 04/12/25 0956 DD/ 0 TD/TT: 04/12/2537 Data Services Developer: [facility] External Provider IMG MRI PROCEDURES Final Result documented in this encounter Visit Diagnoses Diagnosis Hypertension- Primary Unspecified essential hypertension documented in this encounter Additional Health Concerns Assessment Noted Time PHQ-9 Depression Total Score: 1 01/13/20 24 12:16 PM EST documented as of this encounter Care Teams Assistant [employer] Relationship Specialty Start Date End Date Yi Thompson MD [address] [place] [address] PCP - General Internal Medicine 08/20/23 documented as of this encounter
== END 2025-06-08 11:16 | disposition home or self-care (01) ==
LOC: HO.HWS 10:36
PROVIDERS: PCP Student in an Organized Health Care Education/Training Program; Visit Provider Obstetrics & Gynecology
DX: R10.2 Pelvic and perineal pain (principal); G89.29 Other chronic pain
CPT/HCPCS: 99213

== ENCOUNTER 2025-06-08 11:45 | Outpatient (REF) | payer OTHER, SELFPAY ==
[2025-06-08 15:10] LABS: Bacterial Vaginosis PCR NEGATIVE (Negative); Candida Group PCR NOT DETECTED (Not Detect); Candida glab krusei PCR NOT DETECTED (Not Detect); Trichomonas vaginalis PCR NOT DETECTED (Not Detect)
== END 2025-06-08 11:46 | disposition home or self-care (01) ==
LOC: HO.LNP 11:45
PROVIDERS: Visit Provider Obstetrics & Gynecology
DX: N76.0 Acute vaginitis (principal); R10.2 Pelvic and perineal pain; R20.0 Anesthesia of skin; R20.2 Paresthesia of skin
CPT/HCPCS: 81515

== ENCOUNTER 2025-06-08 13:30 | Outpatient (REF) | payer OTHER, SELFPAY ==
--- NOTE | 2025-06-08 13:58 | EMG_ITS ---
Chief complaint: Bilateral hand pain and numbness, left CTR surgery 10 years ago in pain Reason for referral: Evaluate for Carpal Tunnel Syndrome or ulnar neuropathy Referred by: Marley BERNSTEIN Procedure done: Bilateral upper extremities NCS/EMG Precautions and/or limitations: None The limb temperature was monitored continuously and remained between 32-36 degrees C during the performance of the NCS. Nerve Conduction Studies Anti Sensory Summary Table ?Stim Site NR Onset (ms) Norm Onset (ms) Peak (ms) Norm Peak (ms) O-P Amp (?V) Norm O-P Amp Site1 Site2 Delta-0 (ms) Dist (cm) Callum (m/s) Norm Callum (m/s) Left Median Anti Sensory (2nd Digit) Wrist ? 2.5 3.2 <3.6 25.7 >10 Wrist 2nd Digit 2.5 14.0 56 Right Median Anti Sensory (2nd Digit) Wrist ? 2.3 3.2 <3.6 36.0 >10 Wrist 2nd Digit 2.3 14.0 61 Left Ulnar Anti Sensory (5th Digit) Wrist ? 2.3 3.0 <3.7 28.4 >15.0 Wrist 5th Digit 2.3 14.0 61 Right Ulnar Anti Sensory (5th Digit) Wrist ? 1.9 2.6 <3.7 35.3 >15.0 Wrist 5th Digit 1.9 14.0 74 Motor Summary Table ?Stim Site NR Onset (ms) Norm Onset (ms) O-P Amp (mV) Norm O-P Amp iAmp (mV) Amp (1st) (%) Site1 Site2 Delta-0 (ms) Dist (cm) Callum (m/s) Norm Callum (m/s) Left Median Motor (Abd Poll Brev) Wrist ? 3.6 <3.9 7.0 >4.5 8.3 100.0 Elbow Wrist 4.4 21.5 49 >45 Elbow ? 8.0 6.6 7.9 94.3 Right Median Motor (Abd Poll Brev) Wrist ? 3.8 <3.9 6.3 >4.5 7.9 100.0 Elbow Wrist 3.7 20.0 54 >45 Elbow ? 7.5 8.1 10.6 128.6 Left Ulnar Motor (Abd Dig Minimi) Wrist ? 2.4 <3.0 6.2 >5 7.5 100.0 B Elbow Wrist 3.0 19.0 63 >45 B Elbow ? 5.4 4.7 6.0 75.8 A Elbow B Elbow 1.7 10.0 59 >45 A Elbow ? 7.1 4.4 5.8 71.0 Right Ulnar Motor (Abd Dig Minimi) Wrist ? 2.3 <3.0 6.9 >5 8.0 100.0 B Elbow Wrist 3.0 19.5 65 >45 B Elbow ? 5.3 6.5 7.7 94.2 A Elbow B Elbow 1.4 10.0 71 >45 A Elbow ? 6.7 6.4 7.6 92.8 Comparison Summary Table ?Stim Site NR Peak (ms) Norm Peak (ms) P-T Amp (?V) Site1 Site2 Delta-P (ms) Norm Delta (ms) Left Median/Radial Dig I Comparison (Digit 1 - 10cm) Median ? 2.8 <2.9 55.0 Median Radial -0.1 Radial ? 2.9 <2.8 44.7 Right Median/Radial Dig I Comparison (Digit 1 - 10cm) Median ? 2.7 <2.9 67.9 Median Radial 0.5 Radial ? 2.2 <2.8 13.4 EMG ?Side Muscle Nerve Root Ins Act Fibs Psw Amp Dur Poly Recrt Int Pat Comment Right 1stDorInt Ulnar C8-T1 Nml Nml Nml Nml Nml 0 Nml Complete Right FlexCarRad Median C6-7 Nml Nml Nml Nml Nml 0 Nml Complete Right Biceps Musculocut C5-6 Nml Nml Nml Nml Nml 0 Nml Complete Right Triceps Radial C6-7-8 Nml Nml Nml Nml Nml 0 Nml Complete Right Deltoid Axillary C5-6 Nml Nml Nml Nml Nml 0 Nml Complete Left 1stDorInt Ulnar C8-T1 Nml Nml Nml Nml Nml 0 Nml Complete Left FlexCarRad Median C6-7 Nml Nml Nml Nml Nml 0 Nml Complete Left Biceps Musculocut C5-6 Nml Nml Nml Nml Nml 0 Nml Complete Left Triceps Radial C6-7-8 Nml Nml Nml Nml Nml 0 Nml Complete Left Deltoid Axillary C5-6 Nml Nml Nml Nml Nml 0 Nml Complete FINDINGS: Right median and radial sensory nerve interlatency difference borderline, 0.5. All other nerves tested were within normal. Concentric needle EMG was performed in selected muscles of the upper extremity. Study did not reveal signs of electric abnormalities as shown in the table above. IMPRESSION: 1. This is a minimally abnormal study. 2. There is electrodiagnostic evidence for right very mild/borderline median neuropathy at the wrist, could be beginning Carpal Tunnel Syndrome. 3. There is no electrodiagnostic evidence for ulnar neuropathy, brachial plexopathy, or cervical radiculopathy. 4. No electrodiagnostic evidence for median neuropathy on the right. CLINICAL COMMENT: Right shoulder pain and limitation of range motion appear disproportionate to hand numbness. Return to ortho for further evaluation. Thank you for your kind referral. Sandra Saunders MD, BEN Board Certified, [place] [employer] and [employer] (ABPMR) Board Certified, [place] Board [employer] Electrodiagnostic [employer] (ABEM) CODIN [phone] MTDD
== END 2025-06-08 13:31 | disposition home or self-care (01) ==
LOC: HO.NEURO 13:30
PROVIDERS: PCP Student in an Organized Health Care Education/Training Program; Visit Provider Physician Assistant
DX: R20.0 Anesthesia of skin (principal); R20.2 Paresthesia of skin; M79.642 Pain in left hand; M79.641 Pain in right hand; R10.2 Pelvic and perineal pain
CPT/HCPCS: 81002; 95886; 95911

== ENCOUNTER → 2025-06-08 13:58 | Outpatient (BNV) | payer OTHER, SELFPAY | PROVIDERS: PCP Student in an Organized Health Care Education/Training Program; Visit Provider Physical Medicine & Rehabilitation | DX: G62.89 Other specified polyneuropathies (principal) | CPT/HCPCS: 95886; 95911 ==

== ENCOUNTER 2025-06-12 08:37 | Outpatient (AMB) | payer OTHER, SELFPAY ==
--- NOTE | 2025-06-12 08:39 | A.OFFVIS_ITS ---
Intake Visit Reasons: TH- Cervical spine MRI review Intake Note: Sapna is a 64 year old female who presents today for a Telehealth follow up of her C Spine MRI IMPRESSION: Multilevel cervical spondylosis C3-4 to C6-7 levels more conspicuous at C6-7, C5-6 and to a lesser extent C3-4 and C4-5 levels. No cord compression, cord edema and or myelopathy. Allergies Penicillins (PENICILLINS) Allergy (Intermediate, Verified 06/12/25 10:15) HIVES HPI HPI TH- Cervical spine MRI review: Details: Sapna is a 64 year old female who presents today for a Telehealth follow up of her C Spine MRI. She continues to have complaints of bilateral arm numbness and tingling but it is not worse than it was. She denies any bowel or bladder dysfunction. [facility] Medical History Headache Cognitive disorder Cervical dystonia Palpitations Non-cardiac chest pain Pelvic pain Leg pain Bladder pain Lower abdominal pain Gross hematuria Toe pain Right knee pain Effusion, right knee Dysuria Pelvic pain in female Hematuria Mass of spine Hematuria Type 2 diabetes mellitus with polyneuropathy DM2 (diabetes mellitus, type 2) Nail deformity Paronychia Failure of spinal cord stimulator Thymoma Pulmonary nodules Thyroid cancer Blood in urine Constipation by delayed colonic transit Tubular adenoma of colon Gastritis Hypertension Dyslipidemia Post-surgical hypothyroidism Primary thyroid cancer Vitamin D deficiency Surgical History History of thymectomy History of back surgery Hx of colonoscopy Hx of thyroidectomy Hx of hernia repair Hx of section Hx of hysterectomy History of esophagogastroduodenoscopy (EGD) Family History Father Stroke Heart attack Mother Diabetes mellitus Family/Other Family history of cancer Sister Stomach cancer Family/Other Thyroid cancer Social History (Updated 06/08/25 @ 10:51 by Anju Mejia MA) Household Members: Spouse, Family and Other Household Members Other:: grandson Housing: Apartment Are you a primary health care / medical job titles to a significant other at home: No Do you presently have visiting nurse or other home services: No Alcohol intake: former Comment: socially Patient Tobacco Use Status: Never used Tobacco Tobacco use type: Cigarette Second Hand Smoke Exposure: No service: No Sexual orientation: Straight/Heterosexual Gender identity: Female Female Reproductive History Menstrual Age of Menarche: 13 Results Reviewed Results Reviewed: I personally reviewed the MR images. IMPRESSION: Multilevel cervical spondylosis C3-4 to C6-7 levels more conspicuous at C6-7, C5-6 and to a lesser extent C3-4 and C4-5 levels. No cord compression, cord edema and or myelopathy. Assessment & Plan Assessment & Plan (1) Bilateral numbness and tingling of arms and legs: Code(s): R20.0 - Anesthesia of skin; R20.2 - Paresthesia of skin Category: Medical Plan: MRI is not concerning for acute injury or abnormality. I discussed this with her and she would like to be referred to our nonoperative spine doctors. A referral was placed. Orders: Referrals Pain Management Referral R20.0 - Anesthesia of skin, R20.2 - Paresthesia of skin Coding Level of Care Code Tele Est Pt Level 2 (90192) Diagnoses Bilateral numbness and tingling of arms and legs R20.0; R20.2
--- OUTSIDE RECORDS SUMMARY | 2025-06-12 08:59 | XMS_ITS | Encounter Summary ---
Author Organization [employer] Address [address] [place] [address] Care Team Providers Care Director Auto Name Role Phone Yi Thompson MD Primary Care Pro vider Reason for Referral * Consultation (Routine) - Authorized Specialty Diagnoses / Procedures Referred By Contac t Referred To Contact Pharmacy Diagnoses Hypertension Maria Del Carmen Meza MD [address] [place] [address] Phone: tel: fax: Referral ID Status Reason Start Date Expiration Date Visits Requested Visits Authorized [id number] Authorized Continuity of Care 04/03/2025 04/03/2026 6 6 Encounter Details Date Type Department Care Team ([facility] st Contact Info) Description 03/30/2025 Orders Only [facility] MEDICINE [address] [place] [id number] Maria Del Carmen Meza MD [address], [place] [phone] Hypertension (Primary Dx) Social History Tobacco Use [...] as of this encounter Plan of Treatment Scheduled Referrals Name Type Priority Associated Diagnoses Orde r Schedule Referral to Pharmacy [place] Outpatient Referral Routine Hypertension Ordered: 04/03/2025 documented as of this encounter Goals Goal Patient Goal Type Associated Problems Recent Progress Patient-Stated? Author Blood Pressure < 140/90 Blood Pressure 130/68(2024 11:25 AM EDT) No Jn Shah Hemoglobin A1c [...] AM EDT Narrative 04/12/2025 9:59 AM EDT [place] [address] Magnetic Resonance Report Signed Patient: Sapna Herzog MR#: [id number] : 1960 Acct:[id number] Age/Sex: 64 / F ADM Date: 04/12/25 Loc: .MRI Attending Dr: Pratik Estes MD Ordering Physician: Pratik Estes MD Date of Service: 04/12/25 Procedure(s): MR cervical spine wo con Accession Number(s): [id number] cc: Pratik Estes MD; Yi Thompson MD [...] 04/12/25 0956 DD/ 0821 TD/TT: 04/12/25 0837 Occupational Therapy Technician: Procedure Note Donotuseinterpreter, Image - 04/12/2025 [place] [address] Magnetic Resonance Report Signed Patient: Sapna Herzog CMR#: [id number] : 9Acct:[id number] Age/Sex: 64 / FADM Date: 04/12/25 Loc: HO.MRI Attending Dr: Pratik Estes MD Ordering Physician: Pratik Estes MD Date of Service: 04/12/25 Procedure(s): MR cervical spine wo con Accession Number(s): [id number] cc: Pratik Estes MD; Yi Thompson MD [...] 04/12/25 0956 DD/ 0821 TD/TT: 04/12/25 0837 Occupational Therapy Technician: [facility] External Provider IMG MRI PROCEDURES Final Result documented in this encounter Visit Diagnoses Diagnosis Hypertension- Primary Unspecified essential hypertension documented in this encounter Additional Health Concerns Assessment Noted Time PHQ-9 Depression Total Score: 1 01/13/20 24 12:16 PM EST documented as of this encounter Care Teams Director Auto Relationship Specialty Start Date End Date Yi Thompson MD [address] [place] [address] PCP - General Internal Medicine 08/20/23 documented as of this encounter
--- OUTSIDE RECORDS SUMMARY | 2025-06-12 08:59 | XMS_ITS | Data Portability ---
Author Organization [place] [facility], Allergy Address [address] [address] Assessment No assessment recorded. Plan of Treatment [...] contr ast No observ ation record ed. [facility] ([facility]) [address] [facility] [address], [place], [address], 07/12/2024 17:28:21 07/12/20 24 03/07/2024 CT, neck, soft tissu e, w/ contr ast No observ ation record ed. [email or web address] Not Available 06/17 14:31:41 Result Notes None [...] Available [employer] 4 03:27:19 Oropharyn geal dysphagia [id number] Active 2023 CHANTEL MEYER MD [address] [place] [address], [facility] [place], [address] , [facility] 4 14:16:46 Acquired vocal cord palsy 016858771 Active 2023 CHANTEL MEYER MD [address] [place] [address], [place], [address] , [facility] 4 14:27:26 Problem Notes None recorded. Procedures Surgical History Date Name Laterality Status Provider Name and Address Organization Details Recorded Time 07/12/2024 FFL_RE completed CHANTEL MEYER MD [address] [place] [address],[place] [address], [place], [address], [facility] 07/12/2024 14:20:56 Imaging Results None recorded. Procedure Notes None recorded. Medical Equipment None Reported. Allergies Allergen ID Allergen Name Allergen Category Reaction Reaction Severity Criticality Documentation Date Start Date Code Code System Note Provider Name and Address Organization Details Recorded Time 21917 Product containin g penicilli n (product) medicatio n other Not available Not available 03/29/2024 27376 8001 SNOMED React ion: unkno wn, unspe cifie d;; Not Available [facility] 4 01:03:20 Medications Name Sig Start Date Stop Date Status Note LastModified by Organization Details LastModified Time medbox status USE DIRECTED active Not Available Not Available No t Available freestyle lite test strips strp active Not Available Not Available Not Available losartan 50 mg tablet active Medicati on ID: 82675 Br and Name: losartan Send Method: E-Prescr [...] 40 mg tablet active Medicati on ID: 68304 Br and Name: lovastat in Send Method: E-Prescr ibed Sub s Allowed: subs OK Medic ationGen ericName : lovastat in Not Available Not Available Not Available amlodipin e 5 mg tablet active Medicati on ID: 56425 Br and Name: amlodipi ne Send Method: [...] Not Available Not Available No t Available [place] Thyroid 15 mg tablet active Medicati on ID: 09382 Br and Name: [place] Thyroid Send Method: E-Prescr ibed Sub s Allowed: subs OK Medic ationGen ericName : [place] Thyroid Not Available Not Available Not Available amitripty line 25 mg tablet active Medicati on ID: 26004 Br and Name: amitript yline Se nd Method: E-Prescr ibed Sub s Allowed: subs OK Medic ationGen ericName : amitript yline Not Available Not Available Not Available Protonix 40 mg intraveno us solution active Medicati on ID: 98796 Br and Name: Protonix Send Method: E-Prescr [...] 150 mg capsule active Medicati on ID: 7[address]39 Br and Name: ranitidi ne HCl Send Method: E-Prescr ibed Sub s Allowed: subs OK Medic ationGen ericName : ranitidi ne HCl Not Available Not Available Not Available hydrochlo rothiazid e 25 mg tablet active Medicati on ID: 35349 Br and Name: hydrochl orothiaz ro Send [...] 17 gram/dose oral powder USE DIRECTED BY [facility] active Not Available Not Available No t [...] release 24hr (osmotic) active Medicati on ID: 89867 Br and Name: metformi n Send Method: [...] tablet,de layed release [place] Medicati on ID: [address]11 Du ration Value: 30 Brand Name: omeprazo [...] Updated DateTime 07/12/2024 165.1 cm 27.3 kg/m2 58904.15 g [place] [facility] 07/12/2024 14:07:22 Social History None recorded. Functional Status None recorded. Mental Status None recorded. Family History Nothing Reported. Medical History No medical history recorded. Gynecological HistoryNo gynecological history recorded. Obstetrics History GPAL:G 0 P 0 0 0 0 Past Encounters Encounter ID Performer Location Encounter Start Date Encounter Closed Date Diagnosis/Indication Diagnosis SNOMED-CT Code Diagnosis ICD10 Code Diagnosis Note [id number] CHANTEL MEYER MD [facility] [address] [address] 07/12/2024 13:49:31 07/12/2024 16:53:30 Oropharyngeal dysphagia 46916232 R13.12 Likely due to esophageal dysmotilit y. VC paralysis is a factor but doesn't explain her dysphagia to solids. I recommend she discuss GI referral with her PCP. I would be glad to see her as needed. I personally reviewed her imaging reports. Acquired v ocal cord palsy [id number] J38.00 Likely from initial surgery 14 years [...] Name 07/12/2024 1 [facility]EPO[facility] [id number] Giuseppe Rodriguez [id number] Sapna Garcia 07/12/2024 1 [facility] [address] Giuseppe Rodriguez [id number] Sapna Fany Garcia OBGyn Episode No OBEpisode recorded.
== END 2025-06-12 09:15 | disposition home or self-care (01) ==
LOC: HO.HOS 08:37
PROVIDERS: PCP Student in an Organized Health Care Education/Training Program; Visit Provider Orthopaedic Surgery
DX: R20.0 Anesthesia of skin (principal); R20.2 Paresthesia of skin
CPT/HCPCS: 99213

== ENCOUNTER → 2025-06-12 08:37 | Outpatient (BNVA) | payer OTHER, SELFPAY | PROVIDERS: PCP Student in an Organized Health Care Education/Training Program; Visit Provider Orthopaedic Surgery | DX: R35.0 Frequency of micturition (principal) | CPT/HCPCS: 81003 ==

== ENCOUNTER 2025-06-12 09:52 | Outpatient (AMB) | payer OTHER, SELFPAY ==
--- NOTE | 2025-06-12 10:14 | A.OFFVIS_ITS ---
Intake Visit Reasons: 6m/FU Intake Note: Patient is present today for a 6m follow up Urology Med:none Antibiotic Allergy: Penicillins Blood Thinner:none Medical Claims Specialist Required: Yes Medical Claims Specialist Language: Wafer Machine Operator Name: Emilio Dempsey Information Interpreted: non-clinical & clinical Allergies Penicillins (PENICILLINS) Allergy (Intermediate, Verified 06/12/25 10:15) HIVES Medication List - Last Reconciled 06/12/25 by Analy Campos MD acetaminophen (Tylenol) 650 mg (2 x 325 mg) PO Q6H PRN albuterol sulfate 90 mcg/actuation (ProAir HFA) 2 puffs inhalation Q4-6H PRN atorvastatin 10 mg PO DAILY blood sugar diagnostic (FreeStyle Lite Strips) Test blood glucose twice per day blood-glucose meter (FreeStyle Lite Meter kit) As directed cholecalciferol (vitamin D3) 62.5 mcg PO QAM ferrous sulfate 325 mg PO DAILY MDD 325mg flash glucose scanning reader (5by Emile 2 Adrian) As directed fluticasone furoate-vilanterol 200-25 mcg/dose (Breo Ellipta) 1 inh inhalation DAILY 30 days fluticasone propionate 50 mcg/actuation 1 spray intranasal ibuprofen 600 mg PO Q8H PRN levothyroxine 112 mcg PO DAILY losartan-hydrochlorothiazide 100-12.5 mg 1 tab PO DAILY metformin ER 500 mg PO BID montelukast 10 mg PO DAILY sennosides (senna) 17.2 mg (2 x 8.6 mg) PO BEDTIME sitagliptin phosphate (Januvia) 100 mg PO DAILY HPI Comments Details: 06/12/25--Sapna is a 64-year-old female who is followed for chronic interstitial cystitis with lower urinary tract symptoms including bladder pain and urgency. History of Present Illness - The patient is a 64-year-old female presenting with chronic interstitial cystitis. - She reports lower urinary tract symptoms including bladder pain and urgency. - She complains of pain down her right leg which I have discussed is not related. - Gabapentin 300 mg daily has been prescribed to manage her symptoms. She has discontinued. - She also declines pyridium at this time - Urinalysis results showed no blood or signs of infection. - Will repeat cystoscopy hydrodistension and renal ultrasound Results - Urinalysis: blood-negative, leukocytes-negative 03/28/25--Sapna is a 64-year-old female presenting with chronic interstitial cystitis and related lower urinary tract symptoms, including bladder urgency and pain. Her management includes gabapentin 300 mg daily for unrelated back pain, which influences her tolerance for additional medication due to cumulative nighttime sedation effects. Continue gabapentin. 01/30/25--Sapna is a 64-year-old female presenting with chronic interstitial cystitis and related lower urinary tract symptoms, including bladder urgency and pain. Last seen in December 2024, she had been managing her condition effectively, having stopped hydroxyzine. Despite this, her symptoms?particularly bladder pain?have resurfaced. She self-initiated cranberry gummies two weeks ago but noticed an aggravation of bladder discomfort. Her management includes gabapentin 300 mg daily for unrelated back pain, which influences her tolerance for additional medication due to cumulative nighttime sedation effects. The recent symptom recurrence demands reevaluation and adjustment of her management plan. Urinary Symptoms Review - Bladder urgency and pain - Resumed bladder pain two weeks ago, likely aggravated by cranberry gummies - Former use of hydroxyzine, causing sedation concerns in concurrent nighttime medication regimen 12/22/24--Sapna is a 64-year-old female followed for interstitial cystitis and lower urinary tract symptoms of urgency and bladder pain. She states she is doing much better she has discontinued the hydroxyzine. She is followed by pain management for back pain and is on gabapentin 300 mg daily that she takes before bed. I will have her follow-up in 6 months she will call for any issues prior. 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 She is using the oxybutynin 10 mg daily. She is here with complaints of increased pain with urination. Urinalysis is nitrite positive. The patient states that she has not been using any other antibiotics at this time. I will empirically place her on Cipro 500 mg twice a day pending urine culture. 08/01/24--Sapna is being followed for recurrent UTIs, interstitial cystitis and related symptoms of pelvic pain and urgency. She was last treated for UTI symptoms with antibiotics in June, she denies dysuria but complains of vaginal itching. She is taking oxybutynin 10 mg daily. Nitrofurantoin 50 mg post sexual activity. I Will send diflucan to pharm. 04/15/2024--Sapna is being followed for recurrent UTIs, interstitial cystitis and related symptoms of pelvic pain and urgency. She called to be seen today because of pelvic pain. She states for about 8 days she has been off and on having pain with urination. She states that she forgot to take the prophylactic antibiotics with intercourse. Urinalysis evaluated is nitrite positive. I will send urine for culture. I will empirically start Macrobid 100 mg twice a day for 7 days pending urine culture. In review of her chart the patient had a CT scan abdomen pelvis with contrast ordered by another provider for complaints of abdominal pain. I have reviewed the results kidneys duplicated right renal system no hydronephrosis no renal calculi. Will continue low dose macrobid post intercourse, tylenol and/or OTC NSAID prn, Cont Uribel TID, continue oxybutynin 10 mg qhs. 02/01/24-Sapna is a 62-year-old female who presents today to the office for a follow-up. Sapna is followed due to bladder pain syndrome. She has been treated with bladder installations heparin lidocaine and Solu-Medrol. The patient is a [place] speaking female. Certified educator senior clinical was present during the visit. PMH includes --hypertension, diabetes, h/o thyroid cancer, followed by endocrine. I had previously discussed use of pyridium prior to intercourse and low dose macrobid post intercourse, tylenol and/or OTC NSAID prn. She was prescribed uribel. The patient states the her bladder pain is much better, but not gone. 03/17/23--Out patient cystoscopy bladder biopsy-- bladder findings, erythematous flattened changes, pathology chronic cystitis with muscularis propria present. 04/23/22-- urine cytology- negative for malignant cells PFSH Medical History Bladder pain Headache Cognitive disorder Cervical dystonia Palpitations Non-cardiac chest pain Pelvic pain Leg pain Lower abdominal pain Gross hematuria Toe pain Right knee pain Effusion, right knee Dysuria Pelvic pain in female Hematuria Mass of spine Hematuria Type 2 diabetes mellitus with polyneuropathy DM2 (diabetes mellitus, type 2) Nail deformity Paronychia Failure of spinal cord stimulator Thymoma Pulmonary nodules Thyroid cancer Blood in urine Constipation by delayed colonic transit Tubular adenoma of colon Gastritis Hypertension Dyslipidemia Post-surgical hypothyroidism Primary thyroid cancer Vitamin D deficiency Surgical History History of thymectomy History of back surgery Hx of colonoscopy Hx of thyroidectomy Hx of hernia repair Hx of section Hx of hysterectomy History of esophagogastroduodenoscopy (EGD) Family History Father Stroke Heart attack Mother Diabetes mellitus Family/Other Family history of cancer Sister Stomach cancer Family/Other Thyroid cancer Social History Household Members: Spouse, Family and Other Household Members Other:: grandson Housing: Apartment Are you a primary spiritual care coordinator to a significant other at home: No Do you presently have visiting nurse or other home services: No Alcohol intake: former Comment: socially Patient Tobacco Use Status: Never used Tobacco Tobacco use type: Cigarette Second Hand Smoke Exposure: No service: No Sexual orientation: Straight/Heterosexual Gender identity: Female Female Reproductive History Menstrual Age of Menarche: 13 Review of Systems Const All systems reviewed & are unremarkable except as noted in HPI and below Reports no additional complaints Eyes Reports no additional complaints ENT Reports no additional complaints Card Reports no additional complaints Resp Reports no additional complaints GI Reports no additional complaints Reports as per HPI Musc Reports no additional complaints Skin/Breast Reports system reviewed and no additional complaints, except as documented Neuro Reports no additional complaints Psych Reports no additional complaints Endo Reports no additional complaints Je/Lymph Reports no additional complaints Aller/Immun Reports no additional complaints Assessment & Plan Assessment & Plan (1) Bladder pain: Code(s): R39.89 - Other symptoms and signs involving the genitourinary system Category: Medical (2) Urinary frequency: Code(s): R35.0 - Frequency of micturition Category: Medical (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 The patient expressed understanding and agreement with the above treatment plan. The patient is aware they should contact our office by phone for worsening of their current condition or the appearance of new symptoms. Compliance is encouraged with any medications and followup testing that is ordered. It is a privilege to be allowed the opportunity to participate in the urologic care of your patient. If you have any questions or concerns regarding treatment for the above conditions please do not hesitate to contact me. The office telephone contact is [phone]. This note is constructed in part using voice recognition software. While every effort has been made to ensure accuracy finisher hot strip errors may have been included. Yours sincerely, Analy Campos MD Scribe Plan - Not visible on output: Patient was informed and verbally consented to the use of an ambient scribe for clinic note documentation during this visit. Coding Level of Care Code Est Pt Level 4 (16562) Complex EM visit Add On G2211 Diagnoses Bladder pain R39.89 Urinary frequency R35.0 Duplex kidney Q63.8 Chronic interstitial cystitis N30.10
== END 2025-06-12 11:24 | disposition home or self-care (01) ==
PROVIDERS: PCP Student in an Organized Health Care Education/Training Program; Visit Provider Urology
DX: R39.89 Other symptoms and signs involving the genitourinary system (principal); R35.0 Frequency of micturition; Q63.8 Other specified congenital malformations of kidney; N30.10 Interstitial cystitis (chronic) without hematuria; N39.0 Urinary tract infection, site not specified; N30.20 Other chronic cystitis without hematuria
CPT/HCPCS: 99214

== ENCOUNTER 2025-06-19 10:38 | Outpatient (REF) | payer OTHER, SELFPAY ==
--- NOTE | ~2025-06-19 | US_ITS ---
EXAMINATION: US KIDNEY BILATERAL HISTORY: R35.0 - Frequency of micturition TECHNIQUE: Real-time grayscale ultrasound imaging of the kidneys was performed and images were reviewed. COMPARISON: Correlation is made with an abdominal ultrasound dated 11/18/2023. FINDINGS: Right kidney: The right kidney measures 13.3 x 6.1 x 5.8 cm. Renal parenchymal echotexture and thickness are normal. There are no masses. There is no hydronephrosis or renal calculi. Left Kidney: The left kidney measures 11.4 x 6.7 x 5.3 cm. Renal parenchymal echotexture and thickness are normal. There are no masses. There is no hydronephrosis or renal calculi. US/US renal BI IMPRESSION: Unremarkable renal ultrasound. Electronically signed by: Milton Duckworth MD 06/19/2025 11:02 AM EDT
--- OUTSIDE RECORDS SUMMARY | 2025-06-19 11:28 | XMS_ITS | Encounter Summary ---
Author Organization [employer] Address [address] [place] [id number] Care Team Providers Care Oiler Helper Name Role Phone Yi Thompson MD Primary Care Pro vider Reason for Referral * Consultation (Routine) - Authorized Specialty Diagnoses / Procedures Referred By Contac t Referred To Contact Pharmacy Diagnoses Hypertension Maria Del Carmen Meza MD [address] [place] [address] Phone: tel: fax: Referral ID Status Reason Start Date Expiration Date Visits Requested Visits Authorized [id number] Authorized Continuity of Care 04/03/2025 04/03/2026 6 6 Encounter Details Date Type Department Care Team ([facility] st Contact Info) Description 03/30/2025 Orders Only [facility] [address] [place] [id number] Maria Del Carmen Meza MD [address] [place], [place] [id number] Hypertension (Primary Dx) Social History Tobacco Use [...] AM EDT Narrative 04/12/2025 9:59 AM EDT [place] [address] Magnetic Resonance Report Signed Patient: Sapna Herzog MR#: [id number] : 1960 Acct:[id number] Age/Sex: 64 / F ADM Date: 04/12/25 Loc: .MRI Attending Dr: Pratik Estes MD Ordering Physician: Pratik Estes MD Date of Service: 04/12/25 Procedure(s): MR cervical spine wo con Accession Number(s): [id number] cc: Pratik Estes MD; Yi Thompson MD [...] 04/12/25 0956 DD/ 0821 TD/TT: 04/12/25 0837 Writing Center Director: Procedure Note Donotuseinterpreter, Image - 04/12/2025 [place] [address] Magnetic Resonance Report Signed Patient: Sapna Herzog CMR#: [id number] : 9Acct:[id number] Age/Sex: 64 / FADM Date: 04/12/25 Loc: HO.MRI Attending Dr: Pratik Estes MD Ordering Physician: Pratik Estes MD Date of Service: 04/12/25 Procedure(s): MR cervical spine wo con Accession Number(s): [id number] cc: Pratik Estes MD; Yi Thompson MD [...] 04/12/25 0956 DD/ 0821 TD/TT: 04/12/25 0837 Writing Center Director: [facility] External Provider IMG MRI PROCEDURES Final Result documented in this encounter Visit Diagnoses Diagnosis Hypertension- Primary Unspecified essential hypertension documented in this encounter Additional Health Concerns Assessment Noted Time PHQ-9 Depression Total Score: 1 01/13/20 24 12:16 PM EST documented as of this encounter Care Teams Oiler Helper Relationship Specialty Start Date End Date Yi Thompson MD [address] [place] [id number] PCP - General Internal Medicine 08/20/23 documented as of this encounter
== END 2025-06-19 10:39 | disposition home or self-care (01) ==
LOC: HO.US 10:38
PROVIDERS: Visit Provider Urology
DX: R35.0 Frequency of micturition (principal); R39.89 Other symptoms and signs involving the genitourinary system
CPT/HCPCS: 76775

== ENCOUNTER → 2025-06-19 10:40 | Outpatient (BNV) | payer OTHER, SELFPAY | PROVIDERS: Visit Provider Radiology Diagnostic Radiology | DX: R35.0 Frequency of micturition (principal) | CPT/HCPCS: 76775 ==

== ENCOUNTER 2025-06-23 13:38 | Outpatient (REF) | payer OTHER, SELFPAY ==
--- OUTSIDE RECORDS SUMMARY | 2025-06-23 13:45 | XMS_ITS | Encounter Summary ---
Author Organization [employer] Address [address] [place] [id number] Care Team Providers Care De Alcholizer Name Role Phone Yi Thompson MD Primary Care Pro vider Reason for Visit * Reason Onset Date Comments CHARTPREP 06/22/2025 Encounter Details Date Type Department Care Team ([facility] st Contact Info) Description 06/22/2025 Telephone [facility] [address] [place] [address] Wanda Mtz [place] CHARTPREP Social History Tobacco Use Types Packs/Day Years [...] encounter Miscellaneous Notes * Telephone Encounter - Wanda Mtz MA - 06/22/2025 2:34 PM EDT Chart Prep Labs: done Images: done except MR brain w/o contrast Referrals: complete Patient is established with Dr. Estes. Letter mailed to patient to call and book appt. Vaccines due: Covid, Flu, and RSV Screenings: foot exam Overdue care gaps: Not applicable documented in this encounter Plan of Treatment Not on file documented as of this encounter Goals Goal [...] documented as of this encounter Care Teams De Alcholizer Relationship Specialty Start Date End Date Yi Thompson MD [address] [place] [phone] PCP - General Internal Medicine 08/20/23 documented as of this encounter
[2025-06-23 16:16] LABS: MANUAL DIFF FLAG NO
[2025-06-23 16:18] LABS: Hematocrit 35.0 % (37.0-47.0); Hemoglobin 11.1 g/dl (12.0-16.0); Imm Gran Abs Auto 0.03 X10*3/uL (0.00-0.03); Imm Gran Pct Auto 0.4 % (0.0-0.4); Lymphocytes Absolute Auto 1.8 X10*3/uL (1.2-4.9); Mean Corpuscular HGB Conc 31.7 g/dl (31.0-35.0); Mean Corpuscular Hemoglobin 23.8 pg (27.0-33.0); Mean Corpuscular Volume 74.9 fL (80.0-98.0); NRBC Abs Auto 0.000 X10*3/uL (0.0-0.012); NRBC Pct Auto 0.0 /100WBC (0.0-0.2); Platelet Count 285 X10*3/uL (160-400); Red Blood Count 4.67 X10*6/uL (4.20-5.50); White Blood Count 6.8 X10*3/uL (4.8-10.8)
[2025-06-23 16:34] LABS: Alanine Aminotransferase 28 U/L (0-31); Albumin Level 4.6 g/dL (3.5-5.0); Alkaline Phosphatase 85 U/L (39-117); Anion Gap 14 (12-20); Aspartate Amino Transferase 30 U/L (5-31); Blood Urea Nitrogen 16 mg/dL (9-16); Calcium 9.1 mg/dL (8.4-10.2); Carbon Dioxide 26 mmol/L (22-29); Chloride 104 mmol/L (96-108); Estimated Glomerular Filt Rate > 60; Potassium 3.9 mmol/L (3.3-5.1); Sodium 140 mmol/L (135-145); Total Protein 7.7 g/dL (6.5-8.0)
== END 2025-06-23 13:39 | disposition home or self-care (01) ==
LOC: HO.HHCL 13:38
PROVIDERS: Nurse Practitioner Primary Care; PCP Student in an Organized Health Care Education/Training Program
DX: R79.89 Other specified abnormal findings of blood chemistry (principal); R10.31 Right lower quadrant pain; R10.9 Unspecified abdominal pain
CPT/HCPCS: 36415; 80053; 85025; 87086; 87088; 87186

== ENCOUNTER 2025-06-28 11:16 | Outpatient (AMB) | payer OTHER, SELFPAY ==
--- OUTSIDE RECORDS SUMMARY | 2025-06-23 13:15 | XMS_ITS | Encounter Summary ---
Author Organization [employer] Address [address] [place] [phone] Care Team Providers Care Shark Biologist Name Role Phone Yi Thompson MD Primary Care Pro vider Reason for Referral * Imaging (Routine) - Authorized Specialty Diagnoses / Procedures Referred By Contac t Referred To Contact Radiology Diagnoses Right lower quadrant pain Procedures CT Abdomen Pelvis w/o Contrast Cathleen Lomax CNP [address] [place] [address] Phone: tel: fax: [address] Phone: tel: fax: Referral ID Status Reason Start Date Expiration Date V isits Requested Visits Authorized [id number] Authorized 06/23/2025 06/23/2026 1 1 Reason for Visit * Reason Comments sick on site Encounter Details Date Type Department Care Team (Late st Contact Info) Description 06/23/2025 1:15 PM EDT Office Visit [facility] [address] [place] [address] Cathleen Lomax CNP [address] [place] [address] Flank pain (Primary Dx); Right lower quadrant pain; Urinary tract infection without hematuria, site unspecified Social History Tobacco Use Types Packs/Day Years [...] Sign Reading Time Taken Comments Blood Pressure 132/78 06/23/2025 1:12 PM EDT Pulse 100 06/23/2025 1:12 PM EDT Temperature 36.9 C (98.4 F) 06/23/2025 1:12 PM EDT Respiratory Rate 12 06/23/2025 1:12 PM EDT Oxygen Saturation 98% 06/23/2025 1:12 PM EDT Inhaled Oxygen Concentration - - Weight 69.3 kg (152 lb 12.8 oz) 06/23/2025 1:12 PM EDT Height - - Body Mass Index 25.43 06/09/2025 11:25 AM EDT documented in this encounter Progress Notes * Cathleen Lomax CNP - 06/23/2025 1:15 PM EDT Sapna Garcia is a 64 y.o. female with PMH of chronic cystitis and chronic right sided LBP with R sided sciatica, complex regional pain syndrome s/p failed spinal cord stimulator who presents for a acute visit. HPI Pt reporting 3 weeks duration of right abdominal/flank pain, radiating down to the right leg. She denies any recent changes in bowel movements, denies n/v/d, denies any associated triggers. Denies LEweakness, numbness or tingling. She does report some burning with urination, denies frequency, urgency, hematuria, foul smelling urine. Denies fever or chills. Interim Hx -Pt follows with urology, [facility] 01/2025. -for chronic pain she follows with PT and ortho -Saw PM 05/2025 done Diagnostic medial branch block resulted in no significant improvement -referredto PT - pt takes gabapentin 300mg HS, at [facility] with PCP [phone] she was considering switching to lyrica. -Pt also started on Tramadol 50mg Q 12 hr PRN, pt to be on contract- PCP requested Skylar Villalobos to start process. -has narcan 03/2025 MR cervical spine wo con 03/2025:Multilevel cervical spondylosis C3-4 to C6-7 levels more conspicuous at C6-7, C5-6 and to a lesser extent C3-4 and C4-5 levels. No cord compression, cord edema and or myelopathy. 11/2024 XR cervical spine showed mild djd at c5-6 09/2024 CT/CT lumbar post myelography IMPRESSION: 1. Somewhat [...] bony abnormalities. 5. Ancillary findings as discussed. Problem List[1] Allergies[2] Review of Systems Constitutional: Negative for chills and fever. Genitourinary: Positive for dysuria and flank pain. Negative for decreased urine volume, frequency,pelvic pain, urgency, vaginal bleeding, vaginal discharge and vaginal pain. Vitals: 06/23/25 1312 BP: 132/78 BP Location: Left arm Patient Position: Sitting BP Cuff Size: Adult Pulse: 100 Resp: 12 Temp: 98.4 ??F (36.9 ??C) TempSrc: Oral SpO2: 98% Weight: 152 lb 12.8 oz (69.3 kg) Physical Exam Constitutional: Appearance: Normal appearance. She is normal weight. Cardiovascular: Rate and Rhythm: Normal rate and regular rhythm. Pulses: Normal pulses. Heart sounds: Normal heart sounds. No murmur heard. No friction rub. No gallop. Pulmonary: Effort: Pulmonary effort is normal. No respiratory distress. Breath sounds: Normal breath sounds. No wheezing or rales. Abdominal: General: Bowel sounds are normal. There is no distension. Palpations: Abdomen is soft. There is no mass. Tenderness: There is abdominal tenderness. There is right CVA tenderness and left CVA tenderness. Comments: Diffuse tenderness over RLQ extending over R hip and R flank Neurological: General: No focal deficit present. Mental Status: She is alert and oriented to person, place, and time. Psychiatric: Mood and Affect: Mood normal. Behavior: Behavior normal. Thought Content: Thought content normal. Judgment: Judgment normal. Problem List Items Addressed This Visit None Visit Diagnoses Flank pain - Primary Relevant Orders POCT Urinalysis (Completed) Culture, Urine, Routine (Completed) UA pos for nitrites, will send for culture Will treat today because patiet is symptomatic Based on culture results will alter tx regimen as appropriate Right lower quadrant pain Relevant Orders CT Abdomen Pelvis w/o Contrast CBC auto differential Comprehensive Metabolic Panel (Completed) Pt having diffuse RLQ pain, pain likely r/t urinary tract infection Will obtain CT, o prior abd imaging in chart Will obtain CBC to ensure no white count Urinary tract infection without hematuria, site unspecified Relevant Medications nitrofurantoin, macrocrystal-monohydrate, (Macrobid) 100 MG capsule POCT UA pos for infection, culture sent Pt treated with macrobid Advised pt to rtc for new or worsening sx. Current Medications[3] [facility] SUPERVISOR BLOOD Attestation SUPERVISOR BLOOD Resident Attestation: Patient was seen and evaluated by Cathleen Lomax SUPERVISOR BLOOD, in collaboration with Ronny Poe MD who has reviewed my assessment and plan. I, Ronny Poe MD , have reviewed the resident's note and agree with the assessment & plan of care as documented above. [1] Patient Active Problem List Diagnosis Irritable bowel [...] Pain in finger Chest pain at rest Chronic right-sided low back pain with right-sided sciatica [2] Allergies Allergen Reactions Penicillins Hives Other reaction(s): SWELLING , Unknown Other reaction(s): swelling pt received dose of cefazolin pre-op 07/04. Per RN Reba, pt tolerated without issue [3] Current Outpatient Medications: acetaminophen (Tylenol 8 Hour) 650 MG ER tablet, Take 1 tablet (650 mg) by mouth every 8 (eight) hours if needed for moderate pain., Disp: 40 tablet, Rfl: 1 albuterol 108 (90 Base) MCG/ACT inhaler, Inhale 2 puffs every 6 (six) hours if needed for wheezing., Disp: 18 g, Rfl: 2 Alcohol Swabs pads, 1 Swab at noon and 1 Swab in the evening. Use to test blood sugar twice daily.,Disp: 100 each, Rfl: 11 amitriptyline (Elavil) 10 MG tablet, Take 10 mg by mouth at bedtime., Disp: , Rfl: Ascorbic Acid (vitamin C) 250 MG tablet, Take 1 tablet (250 mg) by mouth Once per day., Disp: 90 tablet, Rfl: 0 atorvastatin (Lipitor) 10 MG tablet, Take 1 tablet (10 mg) by mouth Once per day., Disp: 90 tablet,Rfl: 0 Blood Glucose Monitoring Suppl (Contour Blood Glucose System) w/Device kit, 1 Device Once per day.,Disp: 1 kit, Rfl: 0 Breo Ellipta 200-25 MCG/ACT aerosol powder , , Disp: , Rfl: cetirizine (ZyrTEC) 10 MG tablet, Take 1 tablet by mouth in the morning., Disp: , Rfl: D3 Super Strength 50 MCG (2000 UT) capsule, Take 1 capsule by mouth in the morning., Disp: , Rfl: estradiol (Estrace) 0.1 MG/GM vaginal cream, Insert 1 g into the vagina Once per day. twice weekly,Disp: 45 g, Rfl: 2 Ferrous Sulfate (iron) 325 (65 Fe) MG tablet, Take 1 tablet (325 mg) by mouth at noon and 1 tablet (325 mg) in the evening., Disp: 180 tablet, Rfl: 1 glucose blood (Contour Next Test) test strip, 1 each by Other route at noon and 1 each in the evening., Disp: 100 each, Rfl: 12 Januvia 100 MG tablet, TAKE 1 TABLET BY MOUTH EVERY MORNING, Disp: 90 tablet, Rfl: 1 Lancets 33G misc, USE TO TEST BLOOD SUGAR TWICE A DAY, Disp: 100 each, Rfl: 11 levothyroxine (Synthroid, Levoxyl) 112 MCG tablet, Take 1 tablet by mouth in the morning., Disp: , Rfl: lidocaine-prilocaine (Emla) 2.5-2.5 % cream, Apply topically if needed each day for mild pain., Disp: 5 g, Rfl: 0 losartan-hydroCHLOROthiazide (Hyzaar) 100-12.5 MG tablet, Take 1 tablet by mouth Once per day. TAKE1 TABLET BY MOUTH EVERYDAY AT NOON, Disp: 90 tablet, Rfl: 1 metFORMIN XR (Glucophage-XR) 500 MG 24 hr tablet, TAKE 1 TABLET BY MOUTH TWICE DAILY AT NOON AND INTHE EVENING WITH MEALS. DO NOT BREAK, CRUSH, DISSOLVE OR CHEW, Disp: 180 tablet, Rfl: 2 montelukast (Singulair) 10 MG tablet, Take 1 tablet (10 mg) by mouth at bedtime. TAKE 1 TABLET BY MOUTH EVERYDAY AT NOON, Disp: 30 tablet, Rfl: 2 naloxone (Narcan) 4 mg/0.1 mL nasal spray, Administer 1 spray (4 mg) into affected nostril(s) if needed for opioid reversal. May repeat every 2-3 minutes if needed, alternating nostrils, until medical assistance becomes available., Disp: 2 each, Rfl: 0 nitrofurantoin, macrocrystal-monohydrate, (Macrobid) 100 MG capsule, Take 1 capsule (100 mg) by mouth 2 times daily for 7 days., Disp: 14 capsule, Rfl: 0 pantoprazole (ProtoNix) 40 MG EC tablet, TAKE 1 TABLET BY MOUTH EVERY MORNING, Disp: 30 tablet, Rfl: 2 Senna-Time 8.6 MG tablet, Take 2 tablets by mouth in the morning., Disp: , Rfl: Spacer/Aero-Holding Chambers (OptiChamber Delisa) misc, 1 each every 4 (four) hours if needed (asthma)., Disp: 1 each, Rfl: 0 traMADol (Ultram) 50 MG tablet, Take 1 tablet (50 mg) by mouth every 12 (twelve) hours if needed for severe pain., Disp: 30 tablet, Rfl: 0 documented in this encounter Plan of Treatment Scheduled Orders Name Type Priority Associated Diagnoses Orde r Schedule CT Abdomen Pelvis w/o Contrast Imaging Routine Right lower quadrant pain Expected: 06/23/2025, Expires: 06/23/2026 CBC auto differential Lab Routine Right lower quadrant pain Expected: 06/23/2025 (Approximate), Expires: 06/23/2026 documented as of this encounter Goals Goal Patient Goal Type Associated Problems Recent Progress Patient-Stated? Author Blood Pressure < 140/90 Blood Pressure 132/78(2024 1:12 PM EDT) No Jn Shah Hemoglobin A1c < 7 Result Component 7.1( 10:35 AM EDT) No Jn Shah documented as of this encounter Procedures Procedure Name Priority Date/Time Associated Diagnosis Comments COMPREHENSIVE METABOLIC PANEL Routine 06/23/2025 1:42 PM EDT Right lower quadrant pain CULTURE, URINE, ROUTINE Routine 06/23/2025 1:35 PM EDT Flank pain POCT URINALYSIS DIPSTICK Routine 06/23/2025 1:18 PM EDT Flank pain documented in this encounter Results * Comprehensive Metabolic Panel (06/23/2025 1:42 PM EDT) Sodium 140 135 - 145 mmol/L [facility] Potassium 3.9 3.3 - 5.1 mmol/L [facility] Chloride 104 96 - 108 mmol/L [facility] Carbon Dioxide 26 22 - 29 mmol/L [facility] Anion Gap 14 12 - 20 [facility] Urea Nitrogen (BUN) 16 9 - 16 mg/dL [facility] Creatinine, Serum 0.77 0.5 - 1.4 mg/dL [facility] Estimated Glomerular Filt Rate >60 [facility] Comment:Chronic Kidney Disea se: Estimated GFR < 60 mL/min/[id number] Kidney Disease: Estimated GFR < 15 mL/min/1.73m2 Glucose 101 60 - 115 mg/dL [facility] Calcium 9.1 8.4 - 10.2 mg/dL [facility] Bilirubin, Total 0.2 0.0 - 1.0 mg/dL [facility] Aspartate Amino Transferase 30 5 - 31 U/L [facility] Alanine Aminotransferase 28 0 - 31 U/L [facility] Total Protein 7.7 6.5 - 8.0 g/dL [facility] Albumin Level 4.6 3.5 - 5.0 g/dL [facility] Alkaline Phosphatase 85 39 - 117 U/L [facility] Blood Venous blood specimen / Unknown 06/23/2025 1:42 PM EDT 06/23/2025 4:12 PM EDT [facility] BLOOD ORDERABLES Cammy l Result Performing Organization Address [facility] Co de Phone Number [facility] [address] [place] [phone] * Culture, Urine, Routine (06/23/2025 1:35 PM EDT) Urine Urine specimen obtained by clean catch procedure / Unknown 06/23/2025 1:35 PM EDT 06/23/2025 5:21 PM EDT Comment:UACC Narrative [facility] - 06/25/2025 7:57 AM EDT Escherichia coli Quant > 100,000 cfu/mL Lactobacillus species Quant > 100,000 cfu/mL Escherichia coli: Ampicillin 4(S) Escherichia coli: Cefazolin (Urine) 2(S) Escherichia coli: Cefepime <=0.12(S) Escherichia coli: Ceftriaxone <=0.25(S) Escherichia coli: Ciprofloxacin >=4(R) Escherichia coli: Gentamicin <=1(S) Escherichia coli: Nitrofurantoin <=16(S) Escherichia coli: Trimethoprim/Sulfamethoxazole <=20(S) Specimen Source: Urine clean catch [facility] MICROBIOLOGY - GENERA L ORDERABLES Final Result Performing Organization Address [facility] de Phone Number [facility] [address] [place] [phone] * (ABNORMAL) POCT Urinalysis (06/23/2025 1:18 PM EDT) Color, UA Yellow Clarity, UA Clear Glucose, UA Negative Bilirubin, UA Negative Ketones, UA Negative Spec Grav, UA 1.020 Blood, UA Negative Negative, None Detected pH, UA 7.0 Protein, UA Negative Urobilinogen, UA 0.2 Leukocytes, UA Trace Negative, Rare, Trace Comment:small Nitrite, UA Positive(A) Negative, None Detected Appearance, UA yellow QC Media Lot # [id number] Lot# Expiration Date 82 Urine 06/23/2025 1:18 PM EDT [facility] POINT OF CARE TEST ENTER/ EDIT ORDERABLES Final Result documented in this encounter Visit Diagnoses Diagnosis Flank pain- Primary Abdominal pain, unspecified site Right lower quadrant pain Urinary tract infection without hematuria, site unspecified documented in this encounter Additional Health Concerns Assessment Noted Time PHQ-9 Depression Total Score: 0 04/06/20 25 11:08 AM EDT documented as of this encounter Care Teams Shark Biologist Relationship Specialty Start Date End Date Yi Thompson MD [address] [place] [address] PCP - General Internal Medicine 08/20/23 documented as of this encounter
[2025-06-28 11:29] VITALS: BMI 25.3
--- NOTE | 2025-06-28 11:29 | A.OFFVIS_ITS ---
Vital Signs 06/28/25 11:29 Height 5 ft 5 in Weight 152 lb BMI 25.3 Intake Visit Reasons: OV-EMG review Intake Note: Sapna is a 64 year old right hand dominant Trinidadian speaking woman who presents today for a follow up visit and EMG review of her bilateral upper extremities. EMG/NCS done on 06/08/25. Last A1C done 05/26/25 *7.1. IMPRESSION: 1. This is a minimally abnormal study. 2. There is electrodiagnostic evidence for right very mild/borderline median neuropathy at the wrist, could be beginning Carpal Tunnel Syndrome. 3. There is no electrodiagnostic evidence for ulnar neuropathy, brachial plexopathy, or cervical radiculopathy. 4. No electrodiagnostic evidence for median neuropathy on the right. Customer Service Cashier Name: Cat DONOVANA/ROLAND Allergies Penicillins (PENICILLINS) Allergy (Intermediate, Verified 06/28/25 11:33) HIVES HPI HPI OV-EMG review: Details: Sapna is a 64 year old right hand dominant Diabetic Trinidadian speaking woman who presents of a NCS review of her bilateral hand numbness. She complains of numbness in her right thumb, index, and middle fingers. Symptoms intermittent, but daily, worse in the mornings. This has been present for ~4 months. She also complains of bilateral hand swelling, particularly in her fingers & worst in the mornings. She was referred to Pain Management by Dr. Estes for cervical myelopathy. [facility] Medical History (Updated 06/28/25 @ 11:49 by Bob Dickson) Type 2 diabetes mellitus with polyneuropathy Bladder pain Headache Cognitive disorder Cervical dystonia Palpitations Non-cardiac chest pain Pelvic pain Leg pain Lower abdominal pain Gross hematuria Toe pain Right knee pain Effusion, right knee Dysuria Pelvic pain in female Hematuria Mass of spine Hematuria DM2 (diabetes mellitus, type 2) Nail deformity Paronychia Failure of spinal cord stimulator Thymoma Pulmonary nodules Thyroid cancer Blood in urine Constipation by delayed colonic transit Tubular adenoma of colon Gastritis Hypertension Dyslipidemia Post-surgical hypothyroidism Primary thyroid cancer Vitamin D deficiency Surgical History History of thymectomy History of back surgery Hx of colonoscopy Hx of thyroidectomy Hx of hernia repair Hx of section Hx of hysterectomy History of esophagogastroduodenoscopy (EGD) Family History Father Stroke Heart attack Mother Diabetes mellitus Family/Other Family history of cancer Sister Stomach cancer Family/Other Thyroid cancer Social History Household Members: Spouse, Family and Other Household Members Other:: grandson Housing: Apartment Are you a primary critical care specialist to a significant other at home: No Do you presently have visiting nurse or other home services: No Alcohol intake: former Comment: socially Patient Tobacco Use Status: Never used Tobacco Tobacco use type: Cigarette Second Hand Smoke Exposure: No service: No Sexual orientation: Straight/Heterosexual Gender identity: Female Female Reproductive History Menstrual Age of Menarche: 13 Review of Systems Const All systems reviewed & are unremarkable except as noted in HPI and below Physical Exam Vital Signs: BMI result Body Mass Index 25.3 Const General: cooperative, healthy appearing and no acute distress Orientation/consciousness: patient oriented x3 HEENT Head: Yes normocephalic and Yes atraumatic Eyes EOM: EOMs intact bilaterally Resp Effort & Inspection: normal respiratory effort and able to speak in complete sentences Cardio Jugular venous distension: no JVD Skin General skin exam: turgor normal Rashes: no rashes Neuro General: patient oriented x3 Extrem Other: Evaluation of Right Upper Extremity: The patient is alert, oriented, and in no acute distress Neuro: Median, Ulnar, Radial nerves motor and sensory intact and sensation is normal to the tips of all digits No thenar or intrinsic wasting Good APB muscle belly firing and good finger cross Vascular: Cap refill brisk ROM: She can make a fist and extend all her digits No locking or catching Skin: No lacerations or abrasions. General: No Ecchymosis. No Erythema or evidence of infection. Nerve Conduction Study Bilateral IMPRESSION: 1. This is a minimally abnormal study. 2. There is electrodiagnostic evidence for right very mild/borderline median neuropathy at the wrist, could be beginning Carpal Tunnel Syndrome. 3. There is no electrodiagnostic evidence for ulnar neuropathy, brachial plexopathy, or cervical radiculopathy. 4. No electrodiagnostic evidence for median neuropathy on the right. CLINICAL COMMENT: Right shoulder pain and limitation of range motion appear disproportionate to hand numbness. Return to ortho for further evaluation. Sandra Saunders MD, BEN 06/08/25 Psych Appearance: grossly normal Affect: normal affect Attitude: cooperative Assessment & Plan Assessment & Plan (1) Carpal tunnel syndrome of right wrist: Code(s): G56.01 - Carpal tunnel syndrome, right upper limb Category: Medical (2) Chronic pain syndrome: Code(s): G89.4 - Chronic pain syndrome Category: Medical (3) Controlled diabetes mellitus with diabetic polyneuropathy: Code(s): E11.42 - Type 2 diabetes mellitus with diabetic polyneuropathy Category: Medical Plan Assessment & Plan: Assessment & Plan: 1. Right carpal tunnel syndrome, early/mild Symptoms intermittent, but daily, worse in the mornings I educated her about this condition I discussed operative and non-operative treatment options The patient would like to proceed with surgery I explained that this procedure is not likely to improve her pain or inflammation in her hand. The risks and benefits of operative treatment were discussed with the patient and the patient wishes to proceed with surgery. These risks include, but are not limited to risk of damage to blood vessels, nerves, tendons, infection, recurrence, incomplete relief of preoperative symptoms, persistent pain, p ossible need for further surgery and the risks associated with regional blocks and anesthesia. The plan is to take the patient to the operating room sometime in the next few weeks for the following procedures: 1. Right carpal tunnel release, under local All of the preoperative paperwork including the consent was reviewed today. All the patient's questions were answered. The patient understands that they will be contacted by our neurosurgery spine physician soon to schedule this procedure She denies blood thinners, heart, lung, kidney issues She is a Diabetic, her most recent HgA1c was 7.1% on 05/26/25. She has chronic pain syndrome 2. Bilateral hand pain & welling, L>R Extending into dorsal forearms, primarily in the mornings She is attending OT for this 3. History of left carpal tunnel release DOS: ~2014, at an outside clinic 4. Left thumb episodes of locking in extension Resolved 5. Left [place], S/P injection Date of Injection 05/15/21 Resolved she is also going to get an appointment with Dr. Estes or 1 of his PAs to evaluate her perceived left shoulder instability and pain. Scribed for Georgiana Pang MD by Bob Dickson, medical or surgical instrument maker, on 06/28/25 at 11:45 AM, EST. Coding Level of Care Code Est Pt Level 4 (53208) Diagnoses Carpal tunnel syndrome of right wrist G56.01 Chronic pain syndrome G89.4 Controlled diabetes mellitus with diabetic polyneuropathy E11.42
== END 2025-06-28 11:53 | disposition home or self-care (01) ==
LOC: HO.HOS 11:17
PROVIDERS: PCP Student in an Organized Health Care Education/Training Program; Visit Provider Orthopaedic Surgery
DX: G56.01 Carpal tunnel syndrome, right upper limb (principal); G89.4 Chronic pain syndrome; E11.42 Type 2 diabetes mellitus with diabetic polyneuropathy
CPT/HCPCS: 99214

== ENCOUNTER 2025-06-30 10:00 | Outpatient (RCR) | payer OTHER, SELFPAY ==
--- NOTE | 2025-04-28 11:17 | MHC.OT.OEV ---
[address] [phone] F: [phone] Occupational Therapy Evaluation Patient Name: Sapna Garcia Diagnosis: (B)Cubital Tunnel Syndrome Date of Onset: Date of Surgery: Attending Provider: Antonette Patino Prescribed Treatment: MD Follow Up Appointment: History of Current Condition: Patient is 64 y/o female with PMHx significant for DMII, Thyroid CA, HTN, and superficial clot in (L)UE who was referred to skilled OT for pain in (B)elbows. She reports no pain in her (R)elbow but does have pain in her shoulder. She stated she has pain in her (L)elbow on the lateral side. It is a burning pain that is a 5/10 at rest and 8/10 pain during movement for the last 4 months. She states it radiates down her arm to her wrist. She has numbness/tingling in the fingers at night. She reports her PLOF as (I)ADLs/ IADLs and lives with her who is currently hospitalized at [facility]. At this time she takes care of grandchildren (ages 18 month y/o, 16 y/o with special needs) 3-4x a week. She reports difficulty with lifting items. Significant Medical History: Cognitive disorder Cervical dystonia Palpitations Non-cardiac chest pain Pelvic pain Leg pain Bladder pain Lower abdominal pain Gross hematuria Toe pain Right knee pain Effusion, right knee Dysuria Pelvic pain in female Hematuria Mass of spine Hematuria Type 2 diabetes mellitus with polyneuropathy DM2 (diabetes mellitus, type 2) Nail deformi Failure of spinal cord stimulator Thymoma Pulmonary nodules Thyroid cancer Blood in urine Constipation by delayed colonic transit Tubular adenoma of colon Gastritis Hypertension Dyslipidemia Post-surgical hypothyroidism Primary thyroid cancer Vitamin D deficiency Precautions/Contraindications: NO ULTRASOUND Patient Goals: Hand Dominance: Left Observations: QuickDASH Score: Prior Level of Function and Occupation Self Care, Employment, Leisure: (I)ADLs/IADLs Takes care of grandchildren Living Situation, Family and/or Social Support: Lives with Has 3 adult children Current Level of Function and Occupation Self Care, Employment, Leisure: min (A) ADLs/ IADLs Sleep: Sleeps through the night Driving: Vision: Balance: Pain Assessment Pain Score: 8 Pain Scale Used: Pain Location and Description: 5/10 at rest 8/10 during activity burning pain Aggravating Factors: Alleviating Factors: Hot water cloth Skin and Soft Tissue Assessment Skin and Soft Tissue: Comments: Skin intact No edema present Nerve assessment Ulnar Nerve: Median Nerve: Radial Nerve: Comments: Sensory Assessment Temperature: Light Touch: Proprioception: Vibration: Comments: Edema Assessment Upper Extremity: Lower Extremity: Comments: Dexterity Assessment Dexterity: Comments: Special Tests Comments: Tinels sign (-) Cozen's Test(-) AROM(PROM) Strength Cervical Cervical Flexion: Cervical Extension: Cervical Lateral Flexion: Cervical Rotation: Comments: Shoulder Flexion: Extension: Abduction: Internal Rotation: External Rotation: Comments: WFL Flexion: Extension: Abduction: Internal Rotation: External Rotation: Comments: WFL Elbow Flexion: Extension: Pronation: WFL Supination: WFL Comments: Flexion: Extension: Pronation: Supination: Comments: WFL Wrist Flexion: 80 Extension: 60 Ulnar Deviation: 27 Radial Deviation: 15 Comments: Flexion: Extension: Ulnar Deviation: Radial Deviation: Comments: WFL Thumb Thumb CMC Flexion: Thumb MCP Flexion: Thumb IP Flexion: Radial Abduction: Palmar Abduction: [place] (Kapandji 0-10): Comments: WFL Digits Index MCP: PIP: DIP: Long MCP: PIP: DIP: Ring MCP: PIP: DIP: Small MCP: PIP: DIP: Comments: Gross Grasp: (R)40lbs., (L)30lbs. Lateral Pinch: 9 Two-Point Pinch: 9 Three-Jaw Arnulfo: 6 Comments: Patient Education Primary Language: Disability Advocate Required: Yes Current Knowledge: Understands information with skills for self-management Teaching Method: Verbal Education Needs Identified on Evaluation: ADL's Disease Information Exercise Pain How did patient/family demonstrate learning? Patient demonstrates Patient verbalizes Barriers to Learning: None Readiness for Learning: Accepting Who was educated? Patient Comments: [facility] Plan of Care Assessment: Based on initial OT evaluation patient presents with pain, impaired ROM, impaired strength and impaired self care performance. At this time patient reports pain at the lateral side of her (L) elbow which radiates down to her wrist at time. Provocative Testing revealed (-) for Cozen's test and Tinel's sign. Due to patient's location of pain may indicated a tendonitis of the elbow and will be treated as Lateral Epicondylitis and will be monitored for signs/symptoms of Cubital Tunnel Symptoms and treated as appropriate. It is recommended that patient receive skilled OT intervention in order for patient to achieve her PLOF of (I). Thank you for your referral. STG Duration: 2 weeks Short Term Goals: Patient will report a 6/10 pain in (L)elbow Patient will increase (L)wrist extension to 70* Patient will be (I) with joint protection techniques during self care tasks Patient will increase (L)campus recruiting coordinator strength to 35lbs. LTG Duration: 4 weeks Longterm Goals: Patient will report 0/10 pain in (L)elbow Patient will be (I) with HEP Patient will be able to care for her grandchildren (I'ly) Patient's (L)wrist will have AROM WFLs Frequency and Duration: The patient will be seen 2x a week for 4 weeks Treatment Plan: Therapeutic Exercise Therapeutic Activity Home Exercise Program Splinting Neuro Re-ed Patient Education Desensitization/Sensory Re-ed Edema Control ADL Training Iontophoresis Paraffin Fluidotherapy MHP Cold Packs Joint Mobilization Soft Tissue Mobilization Kinesiotaping Other (see comments) Skilled OT eval and treat Electronically Signed By: JONATHAN Rowe/Steph, CLT Reviewed/agree with student documentation: Therapist: Please sign and return to therapist, Thank you for your referral.
--- NOTE | 2025-06-30 10:36 | MHC.OT.DC ---
[facility] Office [address] [phone] F: [phone] F: [phone] Occupational Therapy Discharge Note Patient Name: Sapna Garcia Provider: Antonette Patino Diagnosis: (B)Cubital Tunnel Syndrome Date of Evaluation: 04/27/25 Date of Discharge: 06/30/25 Treatments to Date: 12 Discharge Summary: Sapna was referred to OT w/ B/L elbow pain. She has been seen for two months of therapy but continues to report high pain in both arms, radiating elbows to shoulder. She reports relief with some exercises (wrist stretches and theraband exercises) but has tingling in all the fingers B/L'ly, no specific nerve distribution and no relief with nighttime orthosis. She has good AROM and puppet master strength 30-35lb B/L'ly, but continue to report high constant pain (8/10). She was seen by ortho and referred to pain management as well for cervical radiculopathy. Will hold further OT at this time. Pt is Ind w/ home exercises and has been educated on joint protection and activity modification in the home, and has functional wrist range and strength, but no real progress w/ pain at this time. Electronically Signed By: Marlys Quintero OTR/L Reviewed/agree with student documentation: Therapist: Please Sign and return to therapist, thank you for your referral.
== END 2025-06-30 10:36 | disposition home or self-care (01) ==
LOC: HO.OT 10:00
PROVIDERS: PCP Student in an Organized Health Care Education/Training Program; Visit Provider Physician Assistant
DX: G56.23 Lesion of ulnar nerve, bilateral upper limbs (principal)
CPT/HCPCS: 29125; 97110; 97140; 97165; 97760

== ENCOUNTER 2025-07-04 10:57 | Outpatient (AMB) | payer OTHER, SELFPAY ==
--- NOTE | 2025-07-04 11:05 | A.OFFVIS_ITS ---
Vital Signs 07/04/25 11:19 Height 5 ft 5 in Weight 152 lb BMI 25.3 BP 126/72 Blood Pressure Location Rt brachial Position Sitting Pulse 112 H Pulse Source Pulse Oximeter Pulse Oximetry (%) 97 Oxygen Delivery Method Room Air Intake Visit Reasons: Follow up discuss colo prep Intake Note: Est pt for mgmt of IBS + GERD. Repeat colo per poor prep. CC: C.O. RUQ pain which radiates into their RLQ. Pt also reports having bloating (chronic). Venereal Disease Investigator Required: Yes Venereal Disease Investigator Services: Venereal Disease Investigator Present Venereal Disease Investigator Name: Bernardo [id number] + [facility] Information Interpreted: clinical only Accompanied by: Self / Same As Patient Allergies Penicillins (PENICILLINS) Allergy (Intermediate, Verified 07/04/25 11:06) HIVES HPI HPI Follow up discuss colo prep: Details: LAST VISIT: Constipation by delayed colonic transit Lower abdominal pain Status post colonoscopy RLQ abdominal pain Mesenteric adenitis Plan Patient will return in 8 months to discuss going for colonoscopy. Patient might need to day of clears and Dulcolax for 1 week before procedure with split MiraLax prep. Patient can continue taking Senokot for now. Increase fluid intake and activity to promote better bowel motility. Continue pantoprazole daily. Avoid dietary triggers and late night snacking. Staying upright for minimum 3 hours after meals discussed with patient. Patient will call our office if she will have any GI concerning symptoms. She is agreeable to current plan of care and verbalizes understanding of instructions. She was given the opportunity to ask questions and all questions answered. TODAY'S VISIT Patient is here today to discuss going for colonoscopy. Patient had suboptimal prep. Currently she is reporting to me that she is moving her bowels. She takes Senokot as needed. Patient denies any issues with anesthesia. No history of sleep apnea. Chronic abdominal pain and chronic back pain. Patient also reports chronic wrist pain seen by rheumatology. Patient denies any cardiac or respiratory symptoms. Patient denies any melena, hematochezia, unintentional weight loss or ribbon like stools. Patient denies any dyspepsia, dysphagia or odynophagia. However patient does report that sometimes depending on what she if she might have epigastric pain and bloating. Currently patient is not taking any PPI. Symptoms are dependent on what she eats. ? [facility] Medical History Type 2 diabetes mellitus with polyneuropathy Bladder pain Headache Cognitive disorder Cervical dystonia Palpitations Non-cardiac chest pain Pelvic pain Leg pain Lower abdominal pain Gross hematuria Toe pain Right knee pain Effusion, right knee Dysuria Pelvic pain in female Hematuria Mass of spine Hematuria DM2 (diabetes mellitus, type 2) Nail deformity Paronychia Failure of spinal cord stimulator Thymoma Pulmonary nodules Thyroid cancer Blood in urine Constipation by delayed colonic transit Tubular adenoma of colon Gastritis Hypertension Dyslipidemia Post-surgical hypothyroidism Primary thyroid cancer Vitamin D deficiency Surgical History History of thymectomy History of back surgery Hx of colonoscopy Hx of thyroidectomy Hx of hernia repair Hx of section Hx of hysterectomy History of esophagogastroduodenoscopy (EGD) Family History Father Stroke Heart attack Mother Diabetes mellitus Family/Other Family history of cancer Sister Stomach cancer Family/Other Thyroid cancer Social History Household Members: Spouse, Family and Other Household Members Other:: grandson Housing: Apartment Are you a primary clinical care leader to a significant other at home: No Do you presently have visiting nurse or other home services: No Alcohol intake: former Comment: socially Patient Tobacco Use Status: Never used Tobacco Tobacco use type: Cigarette Second Hand Smoke Exposure: No service: No Sexual orientation: Straight/Heterosexual Gender identity: Female Female Reproductive History Menstrual Age of Menarche: 13 Review of Systems Const Denies weight gain and Denies weight loss ENT Reports no additional complaints, Denies dysphagia and Denies odynophagia Card Reports no additional complaints Resp Reports no additional complaints GI Denies abdominal pain, Denies belching, Denies melena, Reports bloating, Denies change in bowel habits, Reports constipation, Denies dysphagia, Denies excessive flatus, Denies dyspepsia, Denies heartburn, Denies diarrhea, Denies loose stools, Denies nausea, Denies odynophagia and Denies vomiting Reports no additional complaints Musc Reports no additional complaints Neuro Reports no additional complaints Psych Reports no additional complaints Endo Reports no additional complaints Physical Exam Vital Signs: Last Vital Signs Pulse 112 H 07/04/25 11:19 BP 126/72 07/04/25 11:19 Pulse Ox 97 07/04/25 11:19 Oxygen Delivery Method Room Air 07/04/25 11:19 BMI result Body Mass Index 25.3 Const General: healthy appearing, no acute distress and well developed Nutritional Appearance: well nourished Orientation/consciousness: patient oriented x3 Resp Effort & Inspection: normal respiratory effort, able to speak in complete sentences, no tracheal deviation and symmetric chest movement Auscultation: clear to auscultation bilaterally Cardio Rate: regular rate GI Inspection: Yes normal to inspection and No distended Palpation (GI): Soft to palpation, not firm, nontender and No hepatosplenomegaly present Auscultation: normal bowel sounds General: Yes no CVA tenderness Back/Spine/Pelvis Back: no CVA tenderness Skin General skin exam: elasticity normal, turgor normal and dry skin Neuro General: patient oriented x3 Psych Appearance: grossly normal Mental Status: mental status grossly normal Assessment & Plan Assessment & Plan (1) Constipation by delayed colonic transit: Code(s): K59.01 - Slow transit constipation Category: Medical (2) Postprandial abdominal bloating: Code(s): R14.0 - Abdominal distension (gaseous) (3) Screen for colon cancer: Code(s): Z12.11 - Encounter for screening for malignant neoplasm of colon Plan Patient will stop taking Senokot and will start Dulcolax. Patient was encouraged to increase fluid intake and activity to promote better bowel motility. Patient had suboptimal prep last colonoscopy in will need to make sure that she will take Dulcolax daily specially before going for procedure. Stressed the importance of good bowel prep and clear liquid diet day before procedure. Message sent to Surgical schedulers to schedule procedure for patient. I will se patient after the colonoscopy. It is agreeable to current plan of care and verbalizes understanding of instructions. She was given the opportunity to ask questions and all questions answered. Thank you for allowing me to participate in her care Medications: New bisacodyl (Dulcolax (bisacodyl)) 10 mg (2 x 5 mg) PO BEDTIME 180 tabs 4RF polyethylene glycol 3350 (Miralax) As directed by gastroenterology department at [facility] 238 grams PO ONCE 238 grams 0RF Z12.11 - Encounter for screening for malignant neoplasm of colon Discontinued sennosides (senna) Discontinued Reason: Doctor's Order 17.2 mg (2 x 8.6 mg) PO BEDTIME 60 tabs 3RF Coding Level of Care Code Est Pt Level 3 (54569) Diagnoses Constipation by delayed colonic transit K59.01 Postprandial abdominal bloating R14.0 Screen for colon cancer Z12.11 Time Spent (min) 30 Comment 20 minutes spent with patient and additional 10 minutes spent reviewing her records
[2025-07-04 11:19] VITALS: BP 126/72; PULSE 112; O2SAT 97; BMI 25.3
--- OUTSIDE RECORDS SUMMARY | 2025-07-04 12:30 | XMS_ITS | Encounter Summary ---
Author Organization [employer] Address [address] [place] [id number] Care Team Providers Care Airfield Services Officer Name Role Phone Yi Thompson MD Primary Care Pro vider Reason for Referral * Consultation (Routine) - Authorized Specialty Diagnoses / Procedures Referred By Contac t Referred To Contact Pharmacy Diagnoses Hypertension Maria Del Carmen Meza MD [address] [place] [address] Phone: tel: fax: Referral ID Status Reason Start Date Expiration Date Visits Requested Visits Authorized [id number] Authorized Continuity of Care 04/03/2025 04/03/2026 6 6 Encounter Details Date Type Department Care Team ([facility] st Contact Info) Description 03/30/2025 Orders Only [facility] [address] [place] [address] Maria Del Carmen Meza MD [address] [place], [place] [id number] Hypertension (Primary Dx) Social History Tobacco Use [...] Description 09/12/2025 9:15 AM EDT Office Visit [facility] [address] [place] [address] [phone] Yi Thompson MD [address] [place] [address] Scheduled Referrals Name Type Priority Associated Diagnoses [...] AM EDT Narrative 04/12/2025 9:59 AM EDT [place] [address] Magnetic Resonance Report Signed Patient: Sapna Herzog MR#: [id number] : 1960 Acct:[id number] Age/Sex: 64 / F ADM Date: 04/12/25 Loc: HO.MRI Attending Dr: Pratik Estes MD Ordering Physician: Pratik Estes MD Date of Service: 04/12/25 Procedure(s): MR cervical spine wo con Accession Number(s): [id number] cc: Pratik Estes MD; Yi Thompson MD [...] 04/12/25 0956 DD/ 0821 TD/TT: 04/12/25 0837 Insurance Billing Specialist: Procedure Note Donotuseinterpreter, Image - 04/12/[address] [address] Magnetic Resonance Report Signed Patient: Sapna Herzog CMR#: [id number] : 9Acct:[id number] Age/Sex: 64 / FADM Date: 04/12/25 Loc: HO.MRI Attending Dr: Pratik Estes MD Ordering Physician: Pratik Estes MD Date of Service: 04/12/25 Procedure(s): MR cervical spine wo con Accession Number(s): [id number] cc: Pratik Estes MD; Yi Thompson MD [...] <Electronically signed by Andres Armstrong MDin OV> 04/12/2556 DD/ 0 TD/TT: 04/12/2537 Insurance Billing Specialist: [facility] External Provider IMG MRI PROCEDURES Final Result documented in this encounter Visit Diagnoses Diagnosis Hypertension- Primary Unspecified essential hypertension documented in this encounter Additional Health Concerns Assessment Noted Time PHQ-9 Depression Total Score: 1 01/13/20 24 12:16 PM EST documented as of this encounter Care Teams Airfield Services Officer Relationship Specialty Start Date End Date Yi Thompson MD [address] [place] [id number] PCP - General Internal Medicine 08/20/23 documented as of this encounter
== END 2025-07-04 12:21 | disposition home or self-care (01) ==
LOC: HO.HGI 10:58
PROVIDERS: PCP Student in an Organized Health Care Education/Training Program; Visit Provider Nurse Practitioner Family
DX: Z01.818 Encounter for other preprocedural examination (principal); Z12.11 Encounter for screening for malignant neoplasm of colon; K59.01 Slow transit constipation; R14.0 Abdominal distension (gaseous)
CPT/HCPCS: S0285

== ENCOUNTER → 2025-07-07 16:23 | Outpatient (BNV) | payer OTHER, SELFPAY | PROVIDERS: PCP Student in an Organized Health Care Education/Training Program; Visit Provider Radiology Body Imaging | DX: R41.82 Altered mental status, unspecified (principal) | CPT/HCPCS: 70551 ==

== ENCOUNTER 2025-07-07 16:30 | Outpatient (REF) | payer OTHER, SELFPAY ==
--- NOTE | ~2025-07-07 | MR_ITS ---
EXAMINATION: MR BRAIN WITHOUT IV CONTRAST CLINICAL INFORMATION: worsening memory loss COMPARISON: Head CT on July 29, 2024. Brain MRI on October 01, 2017. TECHNIQUE: MRI of the brain was obtained using routine sequences without intravenous contrast. FINDINGS: Brain parenchyma: No shift of midline structures. No evidence of acute infarct or hemorrhage. Multiple small T2/FLAIR hyperintense lesions in the white matter of bilateral cerebral hemispheres are likely a manifestation of chronic small vessel ischemic changes. There is a suggestion of mild impression in the medulla from the right and left vertebral arteries (13:23, 13:22). Ventricles/extra-axial CSF spaces: No hydrocephalus. No extra-axial fluid collection. Parafalcine calcifications or small calcified meningiomas, unchanged from CT in 2023. Extracranial structures: Arterial flow voids in the skull base are preserved. MR/MR head/brain wo con IMPRESSION: 1. No acute intracranial findings. 2. Nonspecific white matter changes, likely a manifestation of chronic small vessel ischemic changes. 3. 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 Electronically signed by: Licha Wynn MD 07/07/2025 06:00 PM EDT
== END 2025-07-07 16:31 | disposition home or self-care (01) ==
LOC: HO.MRI 16:30
PROVIDERS: PCP Student in an Organized Health Care Education/Training Program; Visit Provider Student in an Organized Health Care Education/Training Program
DX: R41.3 Other amnesia (principal)
CPT/HCPCS: 70551

== ENCOUNTER 2025-07-12 13:53 | Outpatient (AMB) | payer OTHER, SELFPAY ==
[2025-07-12 14:08] VITALS: BP 125/70; PULSE 102; RESP 18; O2SAT 99
--- NOTE | 2025-07-12 14:08 | MHC.OFFVIS ---
Vital Signs 07/12/25 14:08 Weight 151 lb 6 oz BP 125/70 Blood Pressure Location Lt brachial Position Sitting Respiration 18 Pulse 102 H Pulse Source Pulse Oximeter Pulse Oximetry (%) 99 Oxygen Delivery Method Room Air Intake Visit Reasons: Paresthesia of skin Sprinkling System Installer Required: Yes Sprinkling System Installer Name: [id number] Allergies Penicillins (PENICILLINS) Allergy (Intermediate, Verified 07/12/25 14:10) HIVES HPI Comments Details: Sapna is back in my office With complains on pain in the right side of the lumbar spine. Previously I was left under impression that she has this pain coming from spondylosis of the lumbar spine. However diagnostic medial branch blocks resulted in no improvement. This time attention was attracted to signs and symptoms of sacroiliitis on the right possibly giving her current pain problem. We will schedule her for diagnostic sacroiliac joint injection on the right to rule out or confirm the diagnosis of right sacroiliac joint dysfunction. She started occupational therapy and she will start physical therapy alongside with her occupational therapy. She continues to do home exercise program currently from her previous physical therapy exercises. She reports minimal short-lived pain improvement from home exercise program. Prior: complains on pain in the right posterior hip with radiation into anterior hip and anterior thigh. She was under care in this office with right knee pain and she received Tech21 spinal cord stimulator in the lumbar position L1-L2 L3 to stimulate the dorsal roots of L1-L2 and L3 to help her pain in the knee. Since then she had several falls and she was sent to CT scan with and without contrast. Unfortunately some impedances were lost at her spinal cord stimulator and MRI is contraindicated for her. On the CT scan all levels lumbar spine appears to be normal, see the full dictation as below, accept L5-S1 level where the degenerative disc and endplate changes as well as arthritis. . [facility] Medical History Type 2 diabetes mellitus with polyneuropathy Bladder pain Headache Cognitive disorder Cervical dystonia Palpitations Non-cardiac chest pain Pelvic pain Leg pain Lower abdominal pain Gross hematuria Toe pain Right knee pain Effusion, right knee Dysuria Pelvic pain in female Hematuria Mass of spine Hematuria DM2 (diabetes mellitus, type 2) Nail deformity Paronychia Failure of spinal cord stimulator Thymoma Pulmonary nodules Thyroid cancer Blood in urine Constipation by delayed colonic transit Tubular adenoma of colon Gastritis Hypertension Dyslipidemia Post-surgical hypothyroidism Primary thyroid cancer Vitamin D deficiency Surgical History History of thymectomy History of back surgery Hx of colonoscopy Hx of thyroidectomy Hx of hernia repair Hx of section Hx of hysterectomy History of esophagogastroduodenoscopy (EGD) Family History Father Stroke Heart attack Mother Diabetes mellitus Family/Other Family history of cancer Sister Stomach cancer Family/Other Thyroid cancer Social History Household Members: Spouse, Family and Other Household Members Other:: grandson Housing: Apartment Are you a primary home health care case manager to a significant other at home: No Do you presently have visiting nurse or other home services: No Alcohol intake: former Comment: socially Patient Tobacco Use Status: Never used Tobacco Tobacco use type: Cigarette Second Hand Smoke Exposure: No service: No Sexual orientation: Straight/Heterosexual Gender identity: Female Female Reproductive History Menstrual Age of Menarche: 13 Review of Systems Const All systems reviewed & are unremarkable except as noted in HPI and below Physical Exam Vital Signs: Last Vital Signs Pulse 102 H 07/12/25 14:08 Resp 18 07/12/25 14:08 BP 125/70 07/12/25 14:08 Pulse Ox 99 07/12/25 14:08 Oxygen Delivery Method Room Air 07/12/25 14:08 Const General: no acute distress and alert Orientation/consciousness: patient oriented x3 Chest Chest palpation & inspection: normal inspection of the chest Resp Effort & Inspection: normal respiratory effort, able to speak in complete sentences, normal respiratory pattern, no audible wheezes and no cough Cardio Jugular venous distension: no JVD Back/Spine/Pelvis Other: Jay Jay test is positive on the right, pelvic compression test is positive on the right, pelvic distraction test is positive on the right, Gaenslen test is positive on the right. Flexing forward and flexing backwards aggravate the pain but flexing backwards aggravate pain more than flexing forward. Loading test is positive on the right. Neuro General: patient oriented x3 Extrem Other: Mild bilateral knees effusion, tenderness on palpation, limited range of motion of both knees. Assessment & Plan Assessment & Plan (1) Spondylosis of lumbar region without myelopathy or radiculopathy: Code(s): M47.816 - Spondylosis without myelopathy or radiculopathy, lumbar region Category: Medical (2) Chronic pain syndrome: Code(s): G89.4 - Chronic pain syndrome Category: Medical (3) Sacroiliitis: Code(s): M46.1 - Sacroiliitis, not elsewhere classified Category: Medical (4) Sacroiliac joint dysfunction of right side: Code(s): M53.3 - Sacrococcygeal disorders, not elsewhere classified Category: Medical Plan Diagnostic medial branch block resulted in no significant pain improvement longer than 6 hours. Some pain improvement for 1st 2 hours but at our 3 pain returned to the pre-injection level. Occupational therapy and physical therapy as well as home exercise program if patient short-lived minimal to moderate pain relief. I will schedule this patient for diagnostic right sacroiliac joint injection. I will see the patient immediately after the procedure. She will continue physical therapy and occupational therapy. She will continue home exercise program. Patient Instructions: I here by testify that I spent 30 minutes in conversation with this patient as well as planning her care and organizing this note. educational sign language interpreter from [employer] [id number] helped to interpret this conversation in Bengali. Coding Level of Care Code Est Pt Level 4 (78426) Diagnoses Spondylosis of lumbar region without myelopathy or radiculopathy M47.816 Chronic pain syndrome G89.4 Sacroiliitis M46.1 Sacroiliac joint dysfunction of right side M53.3
== END 2025-07-12 14:27 | disposition home or self-care (01) ==
LOC: HO.PMC 13:54
PROVIDERS: PCP Student in an Organized Health Care Education/Training Program; Visit Provider Anesthesiology
DX: M47.816 Spondylosis without myelopathy or radiculopathy, lumbar region (principal); G89.4 Chronic pain syndrome; M46.1 Sacroiliitis, not elsewhere classified; M53.3 Sacrococcygeal disorders, not elsewhere classified
CPT/HCPCS: 99214

== ENCOUNTER 2025-07-18 11:09 | Outpatient (AMB) | payer OTHER, SELFPAY ==
--- NOTE | 2025-07-18 11:21 | A.OFFVIS_ITS ---
Vital Signs 07/18/25 11:22 Height 5 ft 5 in Weight 151 lb 6 oz BMI 25.2 BP 116/80 Blood Pressure Location Rt brachial Position Sitting Pulse 104 H Pulse Source Pulse Oximeter Pulse Oximetry (%) 94 Oxygen Delivery Method Room Air Intake Visit Reasons: MRI Results Intake Note: Patient presents MRI results from PCP. Patient states a lot of headaches. Gas Or Petroleum Operator Required: Yes Gas Or Petroleum Operator Language: Corporation Lawyer Services: Gas Or Petroleum Operator Present Gas Or Petroleum Operator Name: Ross [id number] Information Interpreted: non-clinical & clinical Accompanied by: Spouse Allergies Penicillins (PENICILLINS) Allergy (Intermediate, Verified 07/18/25 11:27) HIVES HPI Comments Details: 64y/o female comes for evaluation of headaches and memory issues. 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 She is here with her today who also helps with history. MRI Mild Vertebral artery compression and chronic microvascular ischemic vessel disease. She stopped Januvia due to s/e, hg a1c is 7.1, She stopped Sumatriptan due to s/e of behavior aloof. Labs reviewed with pt. today. PMH: She reports headaches for about 30 years which have increased in frequency, the side of head [id number] and Levator scapulae at the base of her neck r. side are painful on lateral rotation and extension of the head. When she was younger her headaches were accompanied with bouts of emesis, photophobia and phonophobia about 3-4 times a week.She takes Amitriptyline 10mg and goes to bed at 9pm, she wakes up 3x for the bathroom and is followed by urology. She has unilateral l. sided headaches weekly 2-3x with a severity of 8/10, takes acetaminophen, ibuprofen which improves her symptoms. She has constant occipital headache, that radiates to frontal and retro-orbital region along with neck pain when she moves her head back and it cracks but moves a-lot. She has blurry vision bilaterally and she can't focus on objects, she denies n/v, /dizziness and or vertigo. She can not read anything as her vision goes dark and cloudy, l>r, denies diplopia, denies pain with chewing, brushing teeth, and or wind grazing her cheek. She has balance, gait difficulties and feels like she will fall due to instability. Nov 2020 spinal cord stimulator was removed and now has pain on the r. side of the lumbar spine, she sees with spine clinic for cortisone injections every 3months. She can barely walk, her joints hurt and is unable to bend over in flexion to fiber picker anything from the floor. She does not use a cane or a rolling walker. She has chronic pain and weakness in her arms and her feet bilaterally. She takes tylenol everyday for her arthritis so this also helps with headaches. She is able to complete all her ADLs independently and cares for her special needs grandson who is 16 years old. She bathes him a She reports stm difficulties she forgets conversations, she does not drive, misplaces items around the house. Her oversees her tasks. Her pulse is elevated today, she misses her medication doses. I provided significant pt. education today re: management of htn, lowering a1c, and lowering triglyceride levels, lowering cholesterol, LDL levels. Labs reviewed with pt. anemia, will send for hematology consult. [facility] Medical History Type 2 diabetes mellitus with polyneuropathy Bladder pain Headache Cognitive disorder Cervical dystonia Palpitations Non-cardiac chest pain Pelvic pain Leg pain Lower abdominal pain Gross hematuria Toe pain Right knee pain Effusion, right knee Dysuria Pelvic pain in female Hematuria Mass of spine Hematuria DM2 (diabetes mellitus, type 2) Nail deformity Paronychia Failure of spinal cord stimulator Thymoma Pulmonary nodules Thyroid cancer Blood in urine Constipation by delayed colonic transit Tubular adenoma of colon Gastritis Hypertension Dyslipidemia Post-surgical hypothyroidism Primary thyroid cancer Vitamin D deficiency Surgical History History of thymectomy History of back surgery Hx of colonoscopy Hx of thyroidectomy Hx of hernia repair Hx of section Hx of hysterectomy History of esophagogastroduodenoscopy (EGD) Family History Father Stroke Heart attack Mother Diabetes mellitus Family/Other Family history of cancer Sister Stomach cancer Family/Other Thyroid cancer Social History Household Members: Spouse, Family and Other Household Members Other:: grandson Housing: Apartment Are you a primary home care manager to a significant other at home: No Do you presently have visiting nurse or other home services: No Alcohol intake: former Comment: socially Patient Tobacco Use Status: Never used Tobacco Tobacco use type: Cigarette Second Hand Smoke Exposure: No service: No Sexual orientation: Straight/Heterosexual Gender identity: Female Female Reproductive History Menstrual Age of Menarche: 13 Physical Exam Vital Signs: Last Vital Signs Pulse 104 H 07/18/25 11:22 BP 116/80 07/18/25 11:22 Pulse Ox 94 07/18/25 11:22 Oxygen Delivery Method Room Air 07/18/25 11:22 BMI result Body Mass Index 25.2 Const General: no acute distress and alert Nutritional Appearance: average body habitus Orientation/consciousness: patient oriented x3 Eyes Pupils: Equal, round and reactive pupils present Chest Chest palpation & inspection: normal inspection of the chest Resp Effort & Inspection: normal respiratory effort, able to speak in complete sentences, normal respiratory pattern, no audible wheezes and no cough Cardio Jugular venous distension: no JVD Back/Spine/Pelvis Other: Jay Jay test is equivocal on the right and negative on the left. Flexing forward and flexing backwards aggravate the pain but flexing backwards aggravate pain more than flexing forward. Loading test is positive on the right. Neuro Other: l.eye is smaller than r. - she says since her glaucoma surgery and twisting of the mouth, denies h/o stroke or bells-palsey. General: patient oriented x3 and moves all extremities Cranial nerves: Yes Facial sensation intact/muscles of mastication intact, Yes Equal, round and reactive pupils present, Yes Bilaterally intact EOM present, Yes Nystagmus not present, Yes Normal facial strength present, Yes Midline tongue present and Yes Ability to bilaterally elevate shoulders present Cognition (Neuro): normal cognition Gait exam (Neuro): Antalgic gait present Motor exam (neuro): Abnormal motor strength present and Abnormal muscle tone present Extrem Other: Mild bilateral knees effusion, tenderness on palpation, limited range of motion of both knees. Psych Appearance: grossly normal Thought process: Normal thought process present Thought content: Normal thought content present Results Reviewed Results Reviewed: MRI 2024 FINDINGS: Brain parenchyma: No shift of midline structures. No evidence of acute infarct or hemorrhage. Multiple small T2/FLAIR hyperintense lesions in the white matter of bilateral cerebral hemispheres are likely a manifestation of chronic small vessel ischemic changes. There is a suggestion of mild impression in the medulla from the right and left vertebral arteries (13:23, 13:22). Ventricles/extra-axial CSF spaces: No hydrocephalus. No extra-axial fluid collection. Parafalcine calcifications or small calcified meningiomas, unchanged from CT in 2023. Extracranial structures: Arterial flow voids in the skull base are preserved. Assessment & Plan Assessment & Plan (1) Fatigue due to sleep pattern disturbance: Code(s): R53.83 - Other fatigue; G47.9 - Sleep disorder, unspecified Category: Medical (2) Abnormal MRI, cervical spine: Comment: neuro surgical consult referral/ gca unlikely Code(s): R93.7 - Abnormal findings on diagnostic imaging of other parts of musculoskeletal system Category: Medical (3) Cervical dystonia: Code(s): G24.3 - Spasmodic torticollis Category: Medical (4) Cognitive disorder: Code(s): F09 - Unspecified mental disorder due to known physiological condition Category: Medical (5) Headache: Comment: chronic - cervicogenic with migraine features, H/O migraines Code(s): R51.9 - Headache, unspecified Category: Medical Qualifiers: Headache type: cluster Headache chronicity pattern: chronic headache Intractability: not intractable Qualified Code(s): G44.029 - Chronic cluster headache, not intractable (6) Anemia: Code(s): D64.9 - Anemia, unspecified Category: Medical Qualifiers: Anemia type: iron deficiency Iron deficiency anemia type: other iron deficiency Qualified Code(s): D50.8 - Other iron deficiency anemias (7) Spasmodic torticollis: Comment: Head feels like it is a bobble head on a stick. Code(s): G24.3 - Spasmodic torticollis Category: Medical (8) Excessive daytime sleepiness: Comment: HST submitted / patient will discuss with her Code(s): G47.19 - Other hypersomnia Category: Medical (9) Chronic lower back pain: Code(s): M54.50 - Low back pain, unspecified; G89.29 - Other chronic pain Category: Medical Qualifiers: Back pain laterality: bilateral Sciatica presence: unspecified whether sciatica present Qualified Code(s): M54.50 - Low back pain, unspecified; G89.29 - Other chronic pain (10) Headaches, cluster: Comment: changed sumatriptan to rizatriptan due to s/e Code(s): G44.009 - Cluster headache syndrome, unspecified, not intractable Category: Medical Qualifiers: Headache chronicity pattern: chronic headache Intractability: not intractable Qualified Code(s): G44.029 - Chronic cluster headache, not intractable Plan MRI reviewed with pt. and referral to Neurosurgical consult placed for decompression. Excessive daytime fatigue and anemia, HST submitted today to r/o jose antonio. Migraines: Headaches Continue amitriptyline 10 mg qhs Cluster headaches discontinue Sumatriptan due to s/e aloof behavior, and start Rizatriptan 10mg po at the onset of headaches. Dystonia? Spasmodic Torticollis? Prior auth for botox. Hematology consult for anemia. Lumbar Spondolysis f/u with pain management for l5/s1 lumbar pain block F/u in 3 months Orders: Orders RT PSG in-lab sleep study 07/18/25 G47.9 - Sleep disorder, unspecified, R53.83 - Other fatigue Referrals Hematology & Oncology Referral D50.8 - Other iron deficiency anemias Neurosurgery Referral F09 - Unspecified mental disorder due to known physiological condition, R93.7 - Abnormal findings on diagnostic imaging of other parts of musculoskeletal system Medications: New rizatriptan 10 mg orally; daily at the onse of headaches. 10 tabs 0RF cluster headaches 30 days MDD 10mg G44.009 - Cluster headache syndrome, unspecified, not intractable Patient Instructions: Sleep Hygiene provided: set a scheduled bedtime and wake time to help regulate the circadian rhythm and balance the release of pituitary hormones. Sleep in a dark room, temperatures below 68 degrees, and no devices n bed. Limit caffeinated products 6 hours prior to bed, and limit fluids 2-4 hours prior to bed. Gentle night yoga, diffusing essential oils, and playing soft music can be relaxing. Headaches start taking rizatriptan at the onset of headaches. Good bp control and managing T2DM is important for cardiovascular outcomes. Lowering cholesterol, triglycerides and taking all medications as prescribed and not skipping doses. F/u after neurosurgical consult in 3 months and do not wait if the medications are not helping call the office for medication adjustments. Coding Level of Care Code Est Pt Level 4 (13294) Complex EM visit Add On G2211 Diagnoses Fatigue due to sleep pattern disturbance R53.83; G47.9 Abnormal MRI, cervical spine R93.7 Cervical dystonia G24.3 Cognitive disorder F09 Chronic cluster headache, not intractable G44.029 Headache type: cluster Headache chronicity pattern: chronic headache Intractability: not intractable Other iron deficiency anemia D50.8 Anemia type: iron deficiency Iron deficiency anemia type: other iron deficiency Spasmodic torticollis G24.3 Excessive daytime sleepiness G47.19 Chronic bilateral low back pain, unspecified whether sciatica present M54.50; G89.29 Back pain laterality: bilateral Sciatica presence: unspecified whether sciatica present Chronic cluster headache, not intractable G44.029 Headache chronicity pattern: chronic headache Intractability: not intractable
[2025-07-18 11:22] VITALS: BP 116/80; PULSE 104; O2SAT 94; BMI 25.2
--- OUTSIDE RECORDS SUMMARY | 2025-07-18 12:45 | XMS_ITS | Encounter Summary ---
Author Organization [employer] Address [address] [place] [address] Care Team Providers Care Employment Program Representative Name Role Phone Yi Thompson MD Primary Care Pro vider Reason for Referral * Consultation (Routine) - Authorized Specialty Diagnoses / Procedures Referred By Contac t Referred To Contact Pharmacy Diagnoses Hypertension Maria Del Carmen Meza MD [address] [place] [address] Phone: tel: fax: Referral ID Status Reason Start Date Expiration Date Visits Requested Visits Authorized [id number] Authorized Continuity of Care 04/03/2025 04/03/2026 6 6 Encounter Details Date Type Department Care Team ([facility] st Contact Info) Description 03/30/2025 Orders Only [facility] [address] [place] [address] Maria Del Carmen Meza MD [address] [place], [place] [phone] Hypertension (Primary Dx) Social History Tobacco Use [...] Care Team (Late st Contact Info) Description 10/10/2025 9:15 AM EST Office Visit [facility] [address] [place] [address] Yi Thompson MD [address] [place] [address] Scheduled Referrals Name Type Priority Associated Diagnoses [...] AM EDT Narrative 04/12/2025 9:59 AM EDT [place] [address] Magnetic Resonance Report Signed Patient: Sapna Herzog MR#: [id number] : 1960 Acct:[id number] Age/Sex: 64 / F ADM Date: 04/12/25 Loc: HO.MRI Attending Dr: Pratik Estes MD Ordering Physician: Pratik Estes MD Date of Service: 04/12/25 Procedure(s): MR cervical spine wo con Accession Number(s): [id number] cc: Pratik Estes MD; Yi Thompson MD [...] 04/12/25 0956 DD/ 0821 TD/TT: 04/12/25 0837 Project Archivist: Procedure Note Donotuseinterpreter, Image - 04/12/[address] [address] Magnetic Resonance Report Signed Patient: Sapna Herzog CMR#: [id number] : 9Acct:[id number] Age/Sex: 64 / FADM Date: 04/12/25 Loc: HO.MRI Attending Dr: Pratik Estes MD Ordering Physician: Pratik Estes MD Date of Service: 04/12/25 Procedure(s): MR cervical spine wo con Accession Number(s): [id number] cc: Pratik Estes MD; Yi Thompson MD [...] Armstrong MDin OV> 04/12/2556 DD/ 0 TD/TT: 04/12/25 0837 Project Archivist: [facility] External Provider IMG MRI PROCEDURES Final Result documented in this encounter Visit Diagnoses Diagnosis Hypertension- Primary Unspecified essential hypertension documented in this encounter Additional Health Concerns Assessment Noted Time PHQ-9 Depression Total Score: 1 01/13/20 24 12:16 PM EST documented as of this encounter Care Teams Employment Program Representative Relationship Specialty Start Date End Date Yi Thompson MD [address] [place] [address] PCP - General Internal Medicine 08/20/23 documented as of this encounter
--- OUTSIDE RECORDS SUMMARY | 2025-07-18 12:45 | XMS_ITS | Encounter Summary ---
Author Organization [employer] Address [address] [place] [address] Care Team Providers Care Dough Sheeter Name Role Phone Yi Thompson MD Primary Care Pro vider Encounter Details Date Type Department Care Team ([facility] st Contact Info) Description 11/06/2024 Orders Only [facility] [address] [place] [address] Provider, MD Lux Social History Tobacco Use [...] enough money to get more: Never True 10/ Transportation Answer Date Recorded In the past [...] Description 10/10/2025 9:15 AM EST Office Visit [facility] [address] [place] [address] Yi Thompson MD [address] [place] [address] documented as of this encounter Goals Goal [...] documented as of this encounter Care Teams Dough Sheeter Relationship Specialty Start Date End Date Yi Thompson MD [address] [place] [address] PCP - General Internal Medicine 08/20/23 documented as of this encounter
--- OUTSIDE RECORDS SUMMARY | 2025-07-18 12:46 | XMS_ITS | Encounter Summary ---
Author Organization [employer] Address [address] [place] [address] Care Team Providers Care Strand Galvanizer Name Role Phone Yi Thompson MD Primary Care Pro vider Reason for Visit * Reason Comments Med Refill Encounter Details Date Type Department Care Team ([facility] st Contact Info) Description 09/12/2024 Refill [facility] [address] [place] [address] Yi Thompson MD [address] [place] [address] Type 2 diabetes mellitus without complication, without long-term current use of insulin ([facility]) Social History Tobacco Use Types Packs/Day [...] the past 12 months, has t he [employer], gas, oil or water company threatened to [...] Description 10/10/2025 9:15 AM EST Office Visit [facility] [address] [place] [address] Yi Thompson MD [address] [place] [address] documented as of this encounter Goals Goal Patient Goal Type Associated Problems Recent Progress Patient-Stated? Author Blood Pressure < 140/90 Blood Pressure 132/78(2024 1:12 PM EDT) No Jn Shah Hemoglobin A1c < 7 Result Component 7.1( 10:35 AM EDT) No Jn Shah documented as of this encounter Visit Diagnoses Diagnosis Type 2 diabetes mellitus without complication, without long-term current use of insulin ([facility]) documented in this encounter Additional Health Concerns Assessment Noted Time PHQ-9 Depression Total Score: 1 01/13/20 24 12:16 PM EST documented as of this encounter Care Teams Strand Galvanizer Relationship Specialty Start Date End Date Yi Thompson MD [address] [place] [address] [place] [address] PCP - General Internal Medicine 08/20/23 documented as of this encounter
--- OUTSIDE RECORDS SUMMARY | 2025-07-18 12:46 | XMS_ITS | Encounter Summary ---
Author Organization [email or web address] Address [address] [place] [address] Care Team Providers Care Medical Housekeeper Name Role Phone Yi Thompson MD Primary Care Pro vider Reason for Visit * Reason Comments Med Change Request Encounter Details Date Type Department Care Team ([facility] Contact Info) Description 03/15/2024 Refill [facility] [address] [place] [address] Leticia Plunkett, ANP [address] [place] [address] Sinus pressure Social History Tobacco Use Types [...] Description 10/10/2025 9:15 AM EST Office Visit [facility] [address] [place] [address] Yi Thompson MD [address] [place] [address] documented as of this encounter Goals Goal [...] documented as of this encounter Care Teams Medical Housekeeper Relationship Specialty Start Date End Date Yi Thompson MD [address] [place] [address] PCP - General Internal Medicine 08/20/23 documented as of this encounter
--- OUTSIDE RECORDS SUMMARY | 2025-07-18 12:46 | XMS_ITS | Encounter Summary ---
Author Organization [employer] Address [address] [place] [address] Care Team Providers Care Enamel Applier Name Role Phone Juliet Bird Primary Care Provider Yi Jessica MD Primary Care Pro vider Reason for Visit * Reason Onset Date Comments triage 02/27/2023 Encounter Details Date Type Department Care Team (Late st Contact Info) Description 02/27/2023 Telephone [facility] [address] [place] [address] Juliet Bird FNP triage Social History Tobacco Use Types Packs/Day [...] 02/27/2023 4:58 PM EDT Triage call with [employer] Designer ID [id number] Pt reports a couple of days of [...] now The caller accepted this outcome speaks albanian documented in this encounter Plan of Treatment Upcoming Encounters Date Type Department Care Team (Late st Contact Info) Description 10/10/2025 9:15 AM EST Office Visit [facility] [address] [place] [address] Yi Thompson MD [address] [place] [address] documented as of this encounter Visit Diagnoses Not on filedocumented in this encounter Care Teams Enamel Applier Relationship Specialty Start Date End Date Juliet Bird FNP PCP - General Family Medicine 01/22/23 08/19/23 Yi Thompson MD [address] [place] [address] PCP - General Internal Medicine 08/20/23 documented as of this encounter
--- OUTSIDE RECORDS SUMMARY | 2025-07-18 12:46 | XMS_ITS | Clinical Summary ---
Author Organization [employer] Address [address] [place] [address] [address], [place] [address] Care Team Providers Care Mail Machine Operator Name Role Phone Yi Thompson MD Primary Care Pro vider Allergies Active Allergy Reactions Criticality Noted Date Comments Penicillins Hives High 12/28/2013 Other reaction(s): SWELLING , Unknown Other reaction(s): swelling pt received dose of cefazolin pre-op 07/04. Per CAT Britton, pt tolerated without issue Medications Spacer/Aero-Hol ding Chambers (OptiChamber Delisa) misc 1 each every 4 (four) hours if needed (asthma). 1 each 03/20/20 23 Active Senna-Time 8.6 MG tablet Take 2 tablets by mouth in the morning. 11/23/19 24 Active cetirizine (ZyrTEC) 10 MG tablet Take 1 tablet by mouth in the morning. Active levothyroxine (Synthroid, Levoxyl) 112 MCG tablet Take 1 tablet by mouth in the morning. 10/05/20 24 Active Blood Glucose Monitoring Suppl (Contour Blood Glucose System) w/Device kit 1 Device Once per day. 1 kit 02/16/20 25 Active acetaminophen (Tylenol 8 Hour) 650 MG ER tablet Take 1 tablet (650 mg) by mouth every 8 (eight) hours if needed for moderate pain. 40 tablet 1 02/22/20 25 Active Januvia 100 MG tabletIndicatio ns:Type 2 diabetes mellitus without complication, without long-term current use of insulin (CMS/HCC) TAKE 1 TABLET BY MOUTH EVERY MORNING 90 tablet 1 04/06/20 25 Active Lancets 33G miscIndications :Type 2 diabetes mellitus without complication, without long-term current use of insulin ([facility]) USE TO TEST BLOOD SUGAR TWICE A DAY 100 each 04/06/20 25 Active Breo Ellipta 200-25 MCG/ACT aerosol powder 04/06/20 25 Active amitriptyline (Elavil) 10 MG tablet Take 10 mg by mouth at bedtime. Active Ferrous Sulfate (iron) 325 (65 Fe) MG tablet Take 1 tablet (325 mg) by mouth at noon and 1 tablet (325 mg) in the evening. 180 tablet 1 04/26/20 25 Active estradiol (Estrace) 0.1 MG/GM vaginal cream Insert 1 g into the vagina Once per day. twice weekly 45 g 2 04/26/20 25 Active albuterol 108 (90 Base) MCG/ACT inhalerIndicati ons:Wheezing Inhale 2 puffs every 6 (six) hours if needed for wheezing. 18 g 2 04/26/20 25 Active Alcohol Swabs pads 1 Swab at noon and 1 Swab in the evening. Use to test blood sugar twice daily. 100 each 04/26/20 25 Active lidocaine-prilo javier (Emla) 2.5-2.5 % cream Apply topically if needed each day for mild pain. 5 g 04/26/20 25 Active losartan-hydroC HLOROthiazide (Hyzaar) 100-12.5 MG tablet Take 1 tablet by mouth Once per day. TAKE 1 TABLET BY MOUTH EVERYDAY AT NOON 90 tablet 1 04/26/20 25 Active montelukast (Singulair) 10 MG tablet Take 1 tablet (10 mg) by mouth at bedtime. TAKE 1 TABLET BY MOUTH EVERYDAY AT NOON 30 tablet 2 04/26/20 25 Active D3 Super Strength 50 MCG (2000 UT) capsule Take 1 capsule by mouth in the morning. 04/06/20 25 Active atorvastatin (Lipitor) 10 MG tablet Take 1 tablet (10 mg) by mouth Once per day. 90 tablet 05/26/20 25 026 Active glucose blood (Contour Next Test) test strip 1 each by Other route at noon and 1 each in the evening. 100 each 06/02/20 25 Active Ascorbic Acid (vitamin C) 250 MG tablet Take 1 tablet (250 mg) by mouth Once per day. 90 tablet 06/09/20 25 026 Active naloxone (Narcan) 4 mg/0.1 mL nasal spray Administer 1 spray (4 mg) into affected nostril(s) if needed for opioid reversal. May repeat every 2-3 minutes if needed, alternating nostrils, until medical assistance becomes available. 2 each 06/09/20 25 026 Active metFORMIN XR (Glucophage-XR) 500 MG 24 hr tabletIndicatio ns:Type 2 diabetes mellitus without complication, without long-term current use of insulin (CMS/HCC) TAKE 1 TABLET BY MOUTH TWICE DAILY AT NOON AND IN THE EVENING WITH MEALS DO NOT BREAK, CRUSH, DISSOLVE OR CHEW 180 tablet 2 06/29/20 25 Active pantoprazole (ProtoNix) 40 MG EC tablet TAKE 1 TABLET BY MOUTH EVERY MORNING 30 tablet 2 06/29/20 25 Active metFORMIN XR (Glucophage-XR) 500 MG 24 hr tabletIndicatio ns:Type 2 diabetes mellitus without complication, without long-term current use of insulin (CMS/HCC) TAKE 1 TABLET BY MOUTH TWICE DAILY AT NOON AND IN THE EVENING WITH MEALS. DO NOT BREAK, CRUSH, DISSOLVE OR CHEW 180 tablet 2 09/30/20 24 025 Discontinued pantoprazole (ProtoNix) 40 MG EC tablet TAKE 1 TABLET BY MOUTH EVERY MORNING 30 tablet 2 04/03/20 25 025 Discontinued traMADol (Ultram) 50 MG tabletIndicatio ns:Left arm pain,Complex regional pain syndrome type 1 of both upper extremities Take 1 tablet (50 mg) by mouth every 12 (twelve) hours if needed for severe pain. 30 tablet 06/09/20 25 025 nitrofurantoin, macrocrystal-mo nohydrate, (Macrobid) 100 MG capsuleIndicati ons:Urinary tract infection without hematuria, site unspecified Take 1 capsule (100 mg) by mouth 2 times daily for 7 days. 14 capsule 06/23/20 25 025 Active Problems Problem Noted Date Diagnosed Date Chronic right-sided low back pain with right-lenin ed sciatica 10/28/2024 Assessment & Plan (10/28/2024 9:46 AM EST): Will send for 300 mg gabapentin at bedtime as patient didn't have med on hand. Educated pt about anticipated side effects of medication including drowsiness. Consideration for PT once patient returns from [facility] in January. Chest pain at rest 04/15/2024 Dysphagia 01/13/2024 Microcytosis 01/13/2024 Pain in [...] 09/17/2023 Forgetfulness 04/15/2023 Overview (08/20/2023): Seen at [facility] on 07/15/2020 for right sided facial [...] for vascular referral once patient returns from [facility] in January. Irritable bowel syndrome with [...] Problem Noted Date Diagnosed Date Resolved Date Superficial thrombophlebitis of left upper extremity 02/13/2025 06/09/2025 Chronic otitis externa of both ears 10/28/2024 06/09/2025 Assessment & Plan (10/28/2024 9:44 AM EST): Ear canal and TM showed no abnormalities, sign of infection, impaction at this time. No tenderness with tragus manipulation or ear pull. No recent illness. Will send topical treatment for ear itching and mild ear pain Vulvar itching 04/15/2024 04/07/2025 Headache 12/02/2023 01/13/2024 Oral pain of unknown [...] Encounters Date Type Department Care Team Description 07/03/2025 Results Follow-Up [facility] [address] [place] [address] Leticia Plunkett ANP CBC auto differential 06/28/2025 Telephone [facility] [address] [place] [address] Yi Thompson MD oct recall 06/28/2025 Telephone [facility] [address] [place] [address] Yi Thompson MD Imaging Orders 06/28/2025 Refill [facility] [address] [place], [place] [phone] Yi Thompson MD Type 2 diabetes mellitus without complication, without long-term current use of insulin ([facility]) 06/26/2025 Results Follow-Up [facility] [address] [place] [address] Yi Thompson MD Culture, Urine, Routine, Comprehensive Metabolic Panel 06/23/2025 1:15 PM EDT Office Visit [address] [address] Cathleen Lomax CNP Flank pain (Primary Dx); Right lower quadrant pain; Urinary tract infection without hematuria, site unspecified 06/23/2025 Travel 06/22/[address] [address] Wanda Mtz [place] CHARTPREP 06/22/[address] [address] Yi Thompson MD Nurse Triage 06/09/2025 11:15 AM EDT Office Visit [address] [address] Yi Thompson MD Left arm pain (Primary Dx); Complex regional pain syndrome type 1 of both upper extremities; Hypertension, unspecified type; Type 2 diabetes mellitus without complication, without long-term current use of insulin (CMS/HCC); Health care maintenance; Other diabetic neurological complication associated with type 2 diabetes mellitus (CMS/HCC) 06/09/2025 Telephone [facility] [address] [place] [address] Skylar Larsen, CAT TIN TIE MACHINE OPERATOR AUTOMATIC 06/09/2025 Travel 06/08/[address] [address] Yi Thompson MD chartprep 06/02/2025 Orders Only [address] [address] Yi Thompson MD Type 2 diabetes mellitus without complication, without long-term current use of insulin (CMS/HCC) 06/02/2025 Orders Only GENERIC EXTERNAL DATA DEPARTMENT Provider, Generic External Data 05/31/2025 Results Follow-Up [address] [address] Yi Thompson MD Client Education Tracking, Fecal Globin By Immunochemistry 05/26/2025 11:00 AM EDT Telemedicine [address] [place] [address] Remedios Do PharmD Hypertension, unspecified type (Primary Dx) 05/26/2025 Orders Only [address] [place] [address] Yi Thompson MD 05/26/2025 Orders Only [address] [place] [address] Yi Thompson MD 05/26/2025 Results Follow-Up [address] [place] [address] Yi Thompson MD CBC auto differential, Reticulocyte Count, Hemoglobin A1c, Additional followed-up results: 6 05/26/2025 Orders Only [address] [place] [address] Yi Thompson MD 04/26/2025 Refill [facility] [address] [place] [address] Yi Thompson MD Wheezing 04/26/2025 Orders Only [address] [place] [address] Yi Thompson MD 04/26/2025 Results Follow-Up [address] [address] Yi Thompson MD Albumin, Random Urine W/Creatinine, Comprehensive Metabolic Panel, Hemoglobin A1c, Additional followed-up results: 7 04/26/2025 Orders Only [address] [place] [address] Yi Thompson MD Iron deficiency anemia, unspecified iron deficiency anemia type (Primary Dx) 04/26/2025 Results Follow-Up [address] [address] Yi Thompson MD Urinalysis Complete 04/26/2025 Orders Only GENERIC EXTERNAL DATA DEPARTMENT Provider, Generic External Data 04/25/2025 Travel 04/25/[address] [address] Yi Thompson MD Call Back Request from Last 3 Months Immunizations Immunization Administration [...] 12.8 oz) 06/23/2025 1:12 PM EDT Height 165.1 cm (5' 5 ) 06/09/2025 11:2 5 AM EDT Body Mass Index 25.43 06/09/2025 11:25 AM EDT Plan of Treatment Upcoming Encounters Date Type Department Care Team (Late st Contact Info) Description 10/10/2025 9:15 AM EST Office Visit [facility] [address] [place] [phone] Yi Thompson MD [address] [place], [place] [phone] Health Maintenance Due Date Last Done Comments CT Colonography 1960 FIT DNA/Cologuard 1960 Sigmoidoscopy 1960 Diabetes: Foot Exam 1968 RSV Patients and Patients Aged 60 years or older (1 - Risk 60-74 years 1-dose series) 2018 COVID-19 Vaccine ( season) 2025 01/31/2022, 02/05/2021, 01/08/2021 Influenza Vaccine (#1) 2025 , 10/14/2022, 11/01/2021, Additional history exists Diabetes: Hemoglobin A1C 08/26/2025 025, 04/26/2025, 10/28/2024, Additional history exists Colonoscopy 11/03/2025 11/03/2024 Colorectal Cancer Screening 11/03/2025 Alcohol/Substance Use Screening 04/06/2026 04/06/2025 Depression Screening 04/06/2026 04/06/2025, 04/06/20 25 SDOH Screening 04/06/2026 04/06/2025 Diabetes: Urine Protein Screening 05/26/2026 05/26/2025, 04/26/2025, 01/12/2024, Additional history exists FIT 05/26/2026 05/26/2025 FOBT 05/26/2026 05/26/2025 Lipid Panel 05/26/2026 05/26/2025, 04/16, 05/16/2024, Additional history exists Tobacco Screening 06/23/2026 06/23/2025 Eye Exam 08/08/2026 08/08/2024, 07/18, 08/08/2024, Additional [...] 7.1( 10:35 AM EDT) No Jn Shah Procedures Procedure Name Priority Date/Time Associated Diagnosis Comments MR BRAIN WO CONTRAST Routine 07/07/2025 4:44 PM EDT Memory loss COMPREHENSIVE METABOLIC PANEL Routine 06/23/2025 1:42 PM EDT Right lower quadrant pain CBC WITH AUTO DIFFERENTIAL Routine 06/23/2025 1:42 PM EDT Abnormal CBC CULTURE, URINE, ROUTINE Routine 06/23/20 1:35 PM EDT Flank pain POCT URINALYSIS DIPSTICK Routine 06/23/2025 1:18 PM EDT Flank pain FL GUIDANCE IN OR Routine 06/02/2025 10: 25 AM EDT GLUCOSE, WHOLE BLOOD Routine 06/02/2025 10:02 AM EDT VITAMIN B12 Routine 05/26/2025 10:35 AM EDT LIPID PANEL, STANDARD Routine 05/26/2025 10:35 AM EDT FERRITIN Routine 05/26/2025 10:35 AM EDT IRON AND TOTAL IRON BINDING CAPACITY Routine 05/26/2025 10:35 AM EDT COMPREHENSIVE METABOLIC PANEL Routine 05/26/2025 10:35 AM EDT ALBUMIN, RANDOM URINE W/CREATININE Routine 05/26/2025 10:35 AM EDT HEMOGLOBIN A1C Routine 05/26/2025 10:35 AM EDT RETICULOCYTE COUNT Routine 05/26/2025 10 :35 AM EDT CBC WITH AUTO DIFFERENTIAL Routine 05/26/2025 10:35 AM EDT FECAL GLOBIN BY IMMUNOCHEMISTRY Routine 05/26/2025 12:00 AM EDT CLIENT EDUCATION TRACKING Routine 05/26/2025 12:00 AM EDT RETICULOCYTE COUNT Routine 04/26/2025 9: 06 AM EDT Iron deficiency anemia, unspecified iron deficiency anemia type IRON AND TOTAL IRON BINDING CAPACITY Routine 04/26/2025 9:06 AM EDT Iron deficiency anemia, unspecified iron deficiency anemia type FERRITIN Routine 04/26/2025 9:06 AM EDT Iron deficiency anemia, unspecified iron deficiency anemia type CBC Routine 04/26/2025 9:06 AM EDT Iron deficiency anemia, unspecified iron deficiency anemia type VITAMIN B12/FOLATE, SERUM PANEL Routine 04/26/2025 9:06 AM EDT Memory loss LIPID PANEL, STANDARD Routine 04/26/2025 9:06 AM EDT Memory loss HEMOGLOBIN A1C Routine 04/26/2025 9:06 AM EDT Memory loss COMPREHENSIVE METABOLIC PANEL Routine 04/26/2025 9:06 AM EDT Memory loss URINALYSIS, COMPLETE Routine 04/26/2025 9:05 AM EDT ALBUMIN, RANDOM URINE W/CREATININE Routine 04/26/2025 9:05 AM EDT Memory loss CULTURE, URINE, ROUTINE Routine 04/26/20 9:05 AM EDT BI US BREAST LIMITED LEFT Urgent 02/07/2025 10:44 AM EDT HM COLONOSCOPY Routine 11/03/2024 6:36 PM EST HEPATITIS C AB W/REFL TO HCV RNA, QN, PCR Routine 01/12/2024 8:56 AM EST Annual physical exam HPV MRNA E6/E7 Routine 10/25/2020 10:02 AM EST THINPREP PAP Routine 10/25/2020 10:02 AM EST from Last 3 Months or Most Recently Relevant to Health Maintenance Results * MR Brain w/o Contrast (07/07/2025 4:44 PM EDT) Anatomical Region Laterality Modality Brain Magnetic Resonan ce 07/07/2025 4:44 PM EDT Narrative 07/07/2025 6:03 PM EDT [address] [address] Magnetic Resonance Report Signed Patient: Sapna Herzog MR#: M [id number] : 1960 Acct:[id number] Age/Sex: 64 / F ADM Date: 07/07/25 Loc: HO.MRI Attending Dr: Yi Cleary MD Ordering Physician: Yi Thompson MD Date of Service: 07/07/25 Procedure(s): MR head/brain wo con Accession Number(s): [id number] cc: Yi Thompson MD EXAMINATION: MR BRAIN WITHOUT IV CONTRAST CLINICAL INFORMATION: worsening memory loss COMPARISON: Head CT on July 29, 2024. Brain MRI on October 01, 2017. TECHNIQUE: MRI of the brain was obtained using routine sequences without intravenous contrast. FINDINGS: Brain parenchyma: No shift of midline structures. No evidence of acute infarct or hemorrhage. Multiple small T2/FLAIR hyperintense lesions in the white matter of bilateral cerebral hemispheres are likely a manifestation of chronic small vessel ischemic changes. There is a suggestion of mild impression in the medulla from the right and left vertebral arteries (13:23, 13:22). Ventricles/extra-axial CSF spaces: No hydrocephalus. No extra-axial fluid collection. Parafalcine calcifications or small calcified meningiomas, unchanged from CT in 2023. Extracranial structures: Arterial flow voids in the skull base are preserved. MR/MR head/brain wo con IMPRESSION: 1. No acute intracranial findings. 2. Nonspecific white matter changes, likely a manifestation of chronic small vessel ischemic changes. 3. 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 Electronically signed by: Licha Wynn MD 07/07/2025 06:00 PM EDT RP Dictated By: Licha Wynn MD Signed By: <Electronically signed by Licha Wynn MD in OV> 07/07/25 1800 DD/ 1644 TD/TT: 07/07/25 1701 Instrumentation Designer: Procedure Note Donotuseinterpreter, Image - 07/07/[address] [address] Magnetic Resonance Report Signed Patient: Sapna Herzog CMR#: [id number] : 9Acct:[id number] Age/Sex: 64 / FADM Date: 07/07/25 Loc: HO.MRI Attending Dr: Yi Cleary MD Ordering Physician: Yi Thompson MD Date of Service: 07/07/25 Procedure(s): MR head/brain wo con Accession Number(s): [id number] cc: Yi Thompson MD EXAMINATION: MR BRAIN WITHOUT IV CONTRAST CLINICAL INFORMATION: worsening memory loss COMPARISON: Head CT on July 29, 2024. Brain MRI on October 01, 2017. TECHNIQUE: MRI of the brain was obtained using routine sequences without intravenous contrast. FINDINGS: Brain parenchyma: No shift of midline structures. No evidence of acute infarct or hemorrhage. Multiple small T2/FLAIR hyperintense lesions in the white matter of bilateral cerebral hemispheres are likely a manifestation of chronic small vessel ischemic changes. There is a suggestion of mild impression in the medulla from the right and left vertebral arteries (13:23, 13:22). Ventricles/extra-axial CSF spaces: No hydrocephalus. No extra-axial fluid collection. Parafalcine calcifications or small calcified meningiomas, unchanged from CT in 2023. Extracranial structures: Arterial flow voids in the skull base are preserved. MR/MR head/brain wo con IMPRESSION: 1. No acute intracranial findings. 2. Nonspecific white matter changes, likely a manifestation of chronic small vessel ischemic changes. 3. 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 Electronically signed by: Licha Wynn MD 07/07/2025 06:00 PM EDT RP Dictated By: Licha Wynn MD Signed By: <Electronically signed by Licha Wynn MD in OV> 07/07/25 1800 DD/ 1644 TD/TT: 07/07/25 1701 Instrumentation Designer: Yi Cleary MD IMG MRI PROCEDURE S Final Result * (ABNORMAL) CBC auto differential (06/23/2025 1:42 PM EDT) Only the most recent of2 resultswithin the time period is included. White Blood Count 6.8 4.8 - 10.8 X10*3/uL [facility] Red Blood Count 4.67 4.20 - 5.50 X10*6/uL [facility] Hemoglobin 11.1(L) 12.0 - 16.0 g/dl [facility] Hematocrit 35.0(L) 37.0 - 47.0 % [facility] Mean Corpuscular Volume 74.9(L) 80.0 - 98.0 fL [facility] Mean Corpuscular Hemoglobin 23.8(L) 27.0 - 33.0 pg [facility] Mean Corpuscular HGB Conc 31.7 31.0 - 35.0 g/dl [facility] Red Cell Distribution Width 15.7 11.0 - 16.0 % [facility] Platelet Count 285 160 - 400 X10*3/uL [facility] Mean Platelet Volume 10.6 9.4 - 12.3 fL [facility] Neutrophils Percent Auto 60.2 45 - 73 % [facility] Imm Gran Pct Auto 0.4 0.0 - 0.4 % [facility] Lymphocytes Percent Auto 26.0 20 - 40 % [facility] Monocytes Percent Auto 10.3 2 - 11 % [facility] Eosinophils Percent Auto 1.9 0 - 4 % [facility] Basophils Percent Auto 1.2 0 - 2 % [facility] NRBC Pct Auto 0.0 0.0 - 0.2 /100WBC [facility] Neutrophils Absolute Auto 4.1 2.0 - 8.3 x10*3/uL [facility] Imm Gran Abs Auto 0.03 0.00 - 0.03 X10*3/uL [facility] Lymphocytes Absolute Auto 1.8 1.2 - 4.9 X10*3/uL [facility] Monocytes Absolute Auto 0.7 0.1 - 1.2 X10*3/uL [facility] Eosinophils Absolute Auto 0.1 0.0 - 0.4 X10*3/uL [facility] Basophils Absolute Auto 0.1 0.0 - 0.2 X10*3/uL [facility] NRBC Abs Auto 0.000 0.0 - 0.012 X10*3/uL [facility] Blood Venous blood specimen / Unknown 06/23/2025 1:42 PM EDT 06/23/2025 4:12 PM EDT Leticia Plunkett ANP LAB BLOOD ORDERABLES Final Resul t Performing Organization Address City/[facility]/ZIP Co de Phone Number [facility] [address] [place], [place] [phone] * Comprehensive Metabolic Panel (06/23/2025 1:42 PM EDT) Only the most recent of3 resultswithin the time period is included. Sodium 140 135 - 145 mmol/L [facility] Potassium 3.9 3.3 - 5.1 mmol/L [facility] Chloride 104 96 - 108 mmol/L [facility] Carbon Dioxide 26 22 - 29 mmol/L [facility] Anion Gap 14 12 - 20 [facility] Urea Nitrogen (BUN) 16 9 - 16 mg/dL [facility] Creatinine, Serum 0.77 0.5 - 1.4 mg/dL [facility] Estimated Glomerular Filt Rate >60 [facility] Comment:Chronic Kidney Disea se: Estimated GFR < 60 mL/min/[id number] Kidney Disease: Estimated GFR < 15 mL/min/1.73m2 Glucose 101 60 - 115 mg/dL [facility] Calcium 9.1 8.4 - 10.2 mg/dL [facility] Bilirubin, Total 0.2 0.0 - 1.0 mg/dL [facility] Aspartate Amino Transferase 30 5 - 31 U/L [facility] Alanine Aminotransferase 28 0 - 31 U/L [facility] Total Protein 7.7 6.5 - 8.0 g/dL [facility] Albumin Level 4.6 3.5 - 5.0 g/dL [facility] Alkaline Phosphatase 85 39 - 117 U/L [facility] Blood Venous blood specimen / Unknown 06/23/2025 1:42 PM EDT 06/23/2025 4:12 PM EDT Cathleen Lomax TEAMSITE DEVELOPER LAB BLOOD ORDERABLES Cammy l Result [facility] [address] [place] [address] [phone] * Culture, Urine, Routine (06/23/2025 1:35 PM EDT) Only the most recent of2 resultswithin the time period is included. Urine Urine specimen obtained by clean catch procedure / Unknown 06/23/2025 1:35 PM EDT 06/23/2025 5:21 PM EDT Comment:UACC Narrative [facility] - 06/25/2025 7:57 AM EDT Escherichia coli Quant > 100,000 cfu/mL Lactobacillus species Quant > 100,000 cfu/mL Escherichia coli: Ampicillin 4(S) Escherichia coli: Cefazolin (Urine) 2(S) Escherichia coli: Cefepime <=0.12(S) Escherichia coli: Ceftriaxone <=0.25(S) Escherichia coli: Ciprofloxacin >=4(R) Escherichia coli: Gentamicin <=1(S) Escherichia coli: Nitrofurantoin <=16(S) Escherichia coli: Trimethoprim/Sulfamethoxazole <=20(S) Specimen Source: Urine clean catch [facility] LAB MICROBIOLOGY - GENERA L ORDERABLES Final Result [facility] [address] [place] [address] [phone] * (ABNORMAL) POCT Urinalysis (06/23/2025 1:18 [...] Media Lot # [id number] Lot# Expiration Date Urine 06/23/2025 1:18 PM EDT [facility] POINT OF CARE TEST ENTER/ EDIT ORDERABLES Final Result * FL Guidance in OR (06/02/2025 10:25 AM EDT) Anatomical Region Laterality Modality X-Ray Angiograph y 06/02/2025 10:2 5 AM EDT Narrative 06/02/2025 11:06 AM EDT [address] [address] Fluoroscopy Report Signed Patient: Sapna Herzog MR#: M [id number] : 1960 Acct:[id number] Age/Sex: 64 / F ADM Date: 06/02/25 Loc: HO.[facility] Attending Dr: Jcarlos Gee MD Ordering Physician: Jcarlos Gee MD Date of Service: 06/02/25 Procedure(s): FL guidance in OR Accession Number(s): [id number] cc: Jcarlos Gee MD; Yi Thompson MD EXAMINATION: FL GUIDANCE ONLY HISTORY: medial branch block COMPARISON: None available. TECHNIQUE: Fluoroscopy time: 20.2 seconds. Cumulative Dose: 5.0515 mGy. DAP: 1.4443 mGym2 Images: 6. FINDINGS: Fluoroscopic spot films of the lumbar spine in the AP projection demonstrate needles and contrast material in the regions of the right L3-4, L4-5, and L5-S1 facet joints. FL/FL guidance in OR IMPRESSION: Fluoroscopy during procedure. Please see procedure report for additional information. Electronically signed by: Milton Duckworth MD 06/02/2025 11:03 AM EDT Dictated By: Milton Duckworth MD Signed By: <Electronically signed by Milton Duckworth MD in OV> 06/02/25 1103 DD/ 1025 TD/TT: 06/02/25 1043 Instrumentation Designer: Procedure Note Donotuseinterpreter, Image - 06/02/[address] [address] Fluoroscopy Report Signed Patient: Sapna Herzog CMR#: M [id number] : 1960cct:[id number] Age/Sex: 64 / FADM Date: 06/02/25 Loc: HO.SSS Attending Dr: Jcarlos Gee MD Ordering Physician: Jcarlos Gee MD Date of Service: 06/02/25 Procedure(s): FL guidance in OR Accession Number(s): [id number] cc: Jcarlos Gee MD; Yi Thompson MD EXAMINATION: FL GUIDANCE ONLY HISTORY: medial branch block COMPARISON: None available. TECHNIQUE: Fluoroscopy time: 20.2 seconds. Cumulative Dose: 5.0515 mGy. DAP: 1.4443 mGym2 Images: 6. FINDINGS: Fluoroscopic spot films of the lumbar spine in the AP projection demonstrate needles and contrast material in the regions of the right L3-4, L4-5, and L5-S1 facet joints. FL/FL guidance in OR IMPRESSION: Fluoroscopy during procedure. Please see procedure report for additional information. Electronically signed by: Milton Duckworth MD 06/02/2025 11:03 AM EDT Dictated By: Milton Duckworth MD Signed By: <Electronically signed by Milton Duckworth MD in OV> 06/02/25 1103 DD/ 1025 TD/TT: 06/02/25 1043 Instrumentation Designer: [facility] External Provider IMG IR PROCEDURES Final Result * (ABNORMAL) Glucose, Whole Blood (06/02/2025 10:02 AM EDT) Glucose, Whole Blood 148(H) 60 - 115 mg/dL [facility] Comment:METER #: [id number] 06/02/2025 10:0 2 AM EDT 06/02/2025 10:09 AM EDT Generic External Data Provider LAB BLOOD ORDERAB LES Final Result [facility] [address] [place] [phone] * Albumin, Random Urine W/Creatinine (05/26/2025 10:35 AM EDT) Only the most recent of2 resultswithin the time period is included. Creatinine, Urine 84.43 mg/dL [facility] Microalbumin Urine <5.0 mg/L [facility] Microalbum Creatinine Ratio Ur TNP <30 ug/mg cr [facility] Comment:Unable to calculate albumin/creatinine ratio due to lowmicroalbumin or creatinine result. 05/26/2025 10:3 5 AM EDT 05/26/2025 11:11 AM EDT Yi Cleary MD LAB URINE ORDERAB LES Final Result Performing Organization Address [facility] de Phone Number [facility] [address] [place] [address] [phone] * (ABNORMAL) Iron And Total Iron Binding Capacity (05/26/2025 10:35 AM EDT) Only the most recent of2 resultswithin the time period is included. Iron 49 30 - 160 mcg/dL [facility] Total Iron Binding Capacity 356 228 - 428 mcg/dL [facility] Percent Iron Saturation 14(L) 15 - 50 % [facility] Unsaturated Iron Binding 307 ug/dL [facility] 05/26/2025 10:3 5 AM EDT 05/26/2025 11:17 AM EDT us Yi Cleary MD LAB BLOOD ORDERAB LES Final Result Performing Organization Address [facility] Co de Phone Number [facility] [address] [place] [address] [phone] * (ABNORMAL) Reticulocyte Count (05/26/2025 10:35 AM EDT) Only the most recent of2 resultswithin the time period is included. Reticulocytes Absolute 0.056 0.026 - 0.095 X10*6/uL [facility] Immature Retic Fraction 15.2 3.0 - 15.9 % [facility] Retic HGB Equivalent 26.9(L) 30.0 - 35.0 pg [facility] Reticulocyte Percent 1.2 0.5 - 1.8 % [facility] 05/26/2025 10:3 5 AM EDT 05/26/2025 11:19 AM EDT us Yi Cleary MD LAB BLOOD ORDERAB LES Final Result Performing Organization Address City/[facility] Co de Phone Number [facility] [address] [place] [address] [phone] * (ABNORMAL) Hemoglobin A1c (05/26/2025 10:35 AM EDT) Only the most recent of2 resultswithin the time period is included. Hemoglobin A1c 7.1(H) <6.0 % [facility] Comment:Hemoglobin A1C Refer ence Range Adults: 4.8 - 6.0 % Non diabetic: < 6.0 % Goal: < 7.0 %Additional Action Suggested: > 8.0 %Note: Hemoglobin A1c results are invalid for patients with abnormal amounts of HbF. Blood transfusions may impact the HbA1c concentration in the patient sample. Estimated Average Glucose 157 mg/dL [facility] Comment:eAG = Estimated ave rage glucose which is %A1C expressed asaverage glucose, using the formula of the D6S-EhrtvswXodyqoo Glucose study (ADAG), Diabetes Care, Vol.31,#8,Jun. 2007 05/26/2025 10:3 5 AM EDT 05/26/2025 11:19 AM EDT us Yi Cleary MD LAB BLOOD ORDERAB LES Final Result Performing Organization Address [facility] Co de Phone Number [facility] [address] [place] [address] [phone] * (ABNORMAL) Ferritin (05/26/2025 10:35 AM EDT) Only the most recent of2 resultswithin the time period is included. Ferritin 9(L) 10 - 250 ng/mL [facility] 05/26/2025 10:3 5 AM EDT 05/26/2025 11:17 AM EDT us Yi Cleary MD LAB BLOOD ORDERAB LES Final Result Performing Organization Address City/[facility]/ZIP Co de Phone Number [facility] [address] [place] [address] [phone] * Vitamin B12 (05/26/2025 10:35 AM EDT) Pathologist [facility] Vitamin B12 476 200 - 900 pg/mL [facility] Comment:NORMAL 200-900 PG/ML INDETERMINATE 160-199 PG/ML DEFICIENT < 160 PG/ML 05/26/2025 10:3 5 AM EDT 05/26/2025 11:17 AM EDT us Yi Cleary MD LAB BLOOD ORDERAB LES Final Result Performing Organization Address [facility] Co de Phone Number [facility] [address] [place] [address] [phone] * (ABNORMAL) Lipid Panel, Standard (05/26/2025 10:35 AM EDT) Only the most recent of2 resultswithin the time period is included. Triglycerides 221(H) <150 mg/dL [facility] Comment:Desirable Triglyceri de: less than 150 mg/dLBorderline High Triglyceride 150-199 mg/dLHigh Triglyceride: 200-499 mg/dLVery High Triglyceride: greater than or equal to 5OO mg/dL Cholesterol 243(H) <200 mg/dL [facility] Comment:Desirable Cholestero l: less than 200 mg/dLBorderline High Cholesterol: 200-239 mg/dLHigh Cholesterol: greater than 239 mg/dL LDL Cholesterol Calculated 157(H) <100 mg/dL [facility] Comment:Desirable LDL: less than 100 mg/dLNear Optimal/Above Optimal LDL: 110- 129 mg/dLBorderline High LDL: 130-159 mg/dLHigh LDL: 160-189 mg/dLVery High LDL: greater than or equal to 190 mg/dL HDL Cholesterol 42 >40 mg/dL [facility] Comment:Desirable HDL: great er than 40 mg/dL Note: This HDL assay may give artificially low results in patients with liver disease. 05/26/2025 10:3 5 AM EDT 05/26/2025 11:17 AM EDT Yi Cleary MD LAB BLOOD ORDERAB LES Final Result [facility] [address] [place] [address] [phone] * Client Education Tracking (05/26/2025 12:00 AM EDT) Client Education Tracking [facility] Comment: The Requisition we received did not include a [facility] account number. To prevent delays in testing and processing of your orders please provide the following information with every order submitted: [facility] account number and account name Client address Client phone and fax number NPI number of ordering physician along with the physician name. 05/26/2025 05/31/2025 10: 29 AM EDT Narrative [facility] - 05/31/2025 10:35 AM EDT FASTING: UNKNOWN Yi Cleary MD LAB BLOOD BANK TE ST ORDERABLES Final Result [facility] [address], [place] [phone] [facility] [place] [facility] [address] [place] [phone] * Fecal Globin By Immunochemistry (05/26/2025 12:00 AM EDT) Fecal Globin By Immunochemistry SEE NOTE [facility] [place] [facility] Comment: FECAL GLOBIN BY IMMUNOCHEMISTRY Micro Number: [id number] Test Status: Final Specimen Source: Insure (tm) fobt test card Specimen Quality: Adequate Fecal Globin: Not Detected Reference Range: Not Detected Comment: Test results may be invalid as no date of collection was provided. Specimens are stable for 14 days. NOTE: Approved collection includes sample of toilet water adjacent to stool. Other methods of collection such as stool transferred from diaper, bedpan, or commode to toilet water may lead to inaccurate results. 05/26/2025 05/31/2025 10: 29 AM EDT Narrative [facility] - 05/31/2025 10:35 AM EDT FASTING: UNKNOWN us Yi Cleary MD LAB BODY FLUIDS A ND STOOLS ORDERABLES Final Result Performing Organization Address City/[facility]/ZIP Co de Phone Number [facility] [address] [place] [address], [place] [phone] [facility] [address] [place] [phone] * Vitamin B12 (Cobalamin) and Folate Panel, Serum (04/26/2025 9:06 AM EDT) Vitamin B12 424 200 - 900 pg/mL [facility] Comment:NORMAL 200-900 PG/ML INDETERMINATE 160-199 PG/ML DEFICIENT < 160 PG/ML Folate 11.9 > or = 4.0 ng/mL [facility] Comment:Reference Values:> o r = 4.0 ng/mL< 4.0 ng/mL suggests folate deficiency Methotrexate, aminopterin and folinic acid(leucovorin) are chemotherapeutic agents whose molecularstructures are similar to folate; therefore, the Architectfolate assay cannot be used for patients using these drugs. Blood 04/26/2025 9:06 AM EDT 04/26/2025 9:06 AM EDT us Yi Cleary MD LAB BLOOD ORDERAB LES Final Result [facility] [address] [place] [phone] * (ABNORMAL) CBC (04/26/2025 9:06 AM EDT) White Blood Count 5.7 4.8 - 10.8 X10*3/uL [facility] Red Blood Count 4.53 4.20 - 5.50 X10*6/uL [facility] Hemoglobin 10.6(L) 12.0 - 16.0 g/dl [facility] Hematocrit 34.3(L) 37.0 - 47.0 % [facility] Mean Corpuscular Volume 75.7(L) 80.0 - 98.0 fL [facility] Mean Corpuscular Hemoglobin 23.4(L) 27.0 - 33.0 pg [facility] Mean Corpuscular HGB Conc 30.9(L) 31.0 - 35.0 g/dl [facility] Red Cell Distribution Width 15.9 11.0 - 16.0 % [facility] Platelet Count 255 160 - 400 X10*3/uL [facility] Mean Platelet Volume 10.6 9.4 - 12.3 [facility] NRBC Pct Auto 0.0 0.0 - 0.2 /100WBC [facility] NRBC Abs Auto 0.000 0.0 - 0.012 X10*3/uL [facility] Blood Venous blood specimen / Unknown 04/26/2025 9:06 AM EDT 04/26/2025 9:06 AM EDT us Yi Cleary MD LAB BLOOD ORDERAB LES Final Result [facility] [address] [place] [phone] * (ABNORMAL) Urinalysis Complete (04/26/2025 9:05 AM EDT) Color Urine Yellow [facility] Appearance Urine Clear [facility] PH 5.5 5.0 - 9.0 [facility] Glucose Urine UA Negative Negative mg/dL [facility] Urine Blood Negative Negative [facility] Specific [place] - Urine 1.010 1.005 - 1.025 [facility] Urine Protein Negative Neg-Trace mg/dL [facility] Urine Ketones Negative Negative mg/dL [facility] Nitrite Urine Negative Negative [facility] Leukocyte Esterase Urine Trace(A) Negative [facility] RBC Urine 0-2 0 - 2 /HPF [facility] Urine WBC 0-5 0 - 5 /HPF [facility] Urine Squamous Epithelial Cell 3-5 0 - 2 /HPF [facility] Urine Bacteria None Seen None Seen [facility] Hyaline Casts, Urine 0-2 0 - 2 /LPF [facility] 04/26/2025 9:05 AM EDT 04/26/2025 9:55 AM EDT us Generic External Data Provider LAB URINE ORDERAB LES Final Result Performing Organization Address City/State/[facility] de Phone Number [facility] [address] [place] [address] [phone] * BI US Breast Limited Left (02/07/2025 10:44 AM EDT) Anatomical Region Laterality Modality Breast Left Ultrasound 02/07/2025 10:4 4 AM EDT Narrative 02/07/2025 11:07 AM EDT [address] [place] [address] Ultrasound Report Signed Patient: Sapna Herzog MR#: [id number] : 1960 Acct:[id number] Age/Sex: 64 / F ADM Date: 02/07/25 Loc: HO.MAMMO Attending Dr: Peter Tate CNM Ordering Physician: PETER TATE CNM Date of Service: 02/07/25 Procedure(s): US breast LT limited mamm only Accession Number(s): [id number] cc: Yi Thompson MD; PETER TATE CNM [...] Maria Bunch DO 02/07/2025 11:04 AM EDT RP Dictated By: Maria Bunch DO Signed By: <Electronically signed by Maria Bunch DO in OV> 02/07/25 1104 DD/ 1044 TD/TT: 02/07/25 1058 Instrumentation Designer: Procedure Note Donotuseinterpreter, Image - 02/07/2025 [facility] [address] [place] [address] [place] [address] Ultrasound Report Signed Patient: Sapna Herzog CMR#: [id number] : 1960cct:[id number] Age/Sex: 64 / FADM Date: 02/07/25 Loc: HO.MAMMO Attending Dr: Peter Tate CNM Ordering Physician: PETER TATE CNM Date of Service: 02/07/25 Procedure(s): US breast LT limited mamm only Accession Number(s): [id number] cc: Yi Thompson MD; PETER TATE CNM [...] 02/07/25 1104 DD/ 1044 TD/TT: 02/07/25 1058 Instrumentation Designer: Peter Tate CNM IMG US PROCEDURES Edited Result - Final * Hm Colonoscopy (11/03/2024 6:36 PM EST) us Historical Provider HEALTH MAINTENANCE Final Result * Hepatitis C Antibody with Reflex to HCV, RNA, Quantitative, Real-Time PCR (01/12/2024 8:56 AM EST) Hepatitis C Antibody Nonreactive Nonreactive [facility] Comment:Antibodies to HCV no t detected; does not exclude early acuteHCV infection. Blood Venous blood specimen / Unknown 01/12/2024 8:56 AM EST 01/12/2024 11:12 AM EST us Yi Cleary MD LAB BLOOD ORDERAB LES Final Result Performing Organization Address City/[facility]/ZIP Co de Phone Number [facility] [address] [place] [phone] * THINPREP PAP (10/25/2020 10:02 AM EST) [facility] Clinical Information: None given [facility] COMMENT SEE COMMENT [facility] Comment: EXPLANATORY NOTE: The Pap is a screening test for cervical cancer. It is not a diagnostic test and is subject to false negative and false positive results. It is most reliable when a satisfactory sample, regularly obtained, is submitted with relevant clinical findings and history, and when the Pap result is evaluated along with historic and current clinical information. Mail Opener : SEE COMMENT [facility] Comment: [place], CT(ASCP) CT screening location: [place] [address] Interpretation/R esult: Negative for intraepithelial lesion or malignancy. [facility] LMP: NONE GIVEN [facility] Prev. BX: NONE GIVEN [facility] Prev. PAP: NONE GIVEN [facility] SOURCE: None given [facility] Statement Of Adequacy: SEE COMMENT [facility] Comment: Satisfactory for evaluation. Endocervical/transformation zone component present. 10/25/2020 10:0 2 AM EST us Peter Tate CNM LAB PATHOLOGY ORDERABLES Final Result Performing Organization Address City/[facility]/ZIP Co de Phone Number [facility] [address] * HPV mRNA E6/E7 (10/25/2020 10:02 AM EST) Pathologist [facility] HPV nRNA E6/E7 Not Detected Not Detected [facility] Comment: This test was performed using the APTIMA HPV Assay ([employer] This assay detects E6/E7 viral messenger RNA (mRNA) from 14 high-risk HPV types (16,18,31,33,35,39,45,51,52,56,58,59,66,68). The analytical performance characteristics of this assay have been determined by [facility] The modifications have not been cleared or approved by the FDA. This assay has been validated pursuant to the CLIA regulations and is used for clinical purposes. 10/25/2020 10:0 2 AM EST us Peter CADET LAB BLOOD ORDERABLES Cammy hines Result [facility] Formerly [facility] [address] from Last 3 Months or Most Recently Relevant to Health Maintenance Insurance [employer] [place] [address] Care Teams Mail Machine Operator Relationship Specialty Start Date End Date Yi Thompson MD [address] [place] [address] PCP - General Internal Medicine 08/20/23
--- OUTSIDE RECORDS SUMMARY | 2025-07-18 12:46 | XMS_ITS | Encounter Summary ---
Author Organization [employer] Address [address] [place] [phone] Care Team Providers Care Control Equipment Electrician Name Role Phone Juliet Bird Primary Care Provider Yi Jessica MD Primary Care Pro vider Reason for Visit * Reason Comments Med Refill Encounter Details Date Type Department Care Team (Late Contact Info) Description 06/28/2023 Refill [facility] [address] [place] [phone] Juliet Bird FNP Social History Tobacco Use Types Packs/Day Years [...] Department Care Team (Late Contact Info) Description 10/10/2025 9:15 AM EST Office Visit [facility] [address] [place] [address] [phone] Yi Thompson MD [address] [place] [address] documented as of this encounter Visit Diagnoses Not on filedocumented in this encounter Care Teams Control Equipment Electrician Relationship Specialty Start Date End Date Juliet Bird FNP PCP - General Family Medicine 01/22/23 08/19/23 Yi Thompson MD [address] [place] [phone] PCP - General Internal Medicine 08/20/23 documented as of this encounter
--- OUTSIDE RECORDS SUMMARY | 2025-07-18 12:46 | XMS_ITS | Encounter Summary ---
Author Organization [employer] Address [address] [place] [address] [phone] Care Team Providers Care Mass Spectrometry Manager Name Role Phone Yi Thompson MD Primary Care Pro vider Reason for Visit * Reason Onset Date Comments Nurse Triage 02/15/2024 Encounter Details Date Type Department Care Team ([facility] st Contact Info) Description 02/15/2024 Telephone [facility] [address] [place] [address] Yi Thompson MD [address] [place] [address] Nurse Triage Social History Tobacco Use Types [...] 02/15/2024 12:44 PM EDT Triage call with [employer] Planning Manager ID [id number] Pt reports headache frontal and back of [...] 400pm. Pt is advised to come to [facility] which is open till 8pm this [...] Tingling sensation The caller accepted this outcome Congolese speaker documented in this encounter Plan of Treatment Upcoming Encounters Date Type Department Care Team (Late st Contact Info) Description 10/10/2025 9:15 AM EST Office Visit [facility] [address] [place] [address] Yi Thompson MD [address] [place] [address] [phone] documented as of this encounter Visit Diagnoses Not on filedocumented in this encounter Additional Health Concerns Assessment Noted Time PHQ-9 Depression Total Score: 1 01/13/20 24 12:16 PM EST documented as of this encounter Care Teams Mass Spectrometry Manager Relationship Specialty Start Date End Date Yi Thompson MD [address] [place] [address] [phone] PCP - General Internal Medicine 08/20/23 documented as of this encounter
--- OUTSIDE RECORDS SUMMARY | 2025-07-18 12:46 | XMS_ITS | Encounter Summary ---
Author Organization [employer] Address [address] [place] [phone] Care Team Providers Care Senior Sql Server Developer Name Role Phone Yi Thompson MD Primary Care Pro vider Encounter Details Date Type Department Care Team (Latest Contact Info) Description 06/26/2025 Results Follow-Up [facility] [address] [place] [address] Yi Thompson MD [address] [place] [address] Culture, Urine, Routine, Comprehensive Metabolic Panel Social History Tobacco Use Types Packs/Day Years [...] Description 10/10/2025 9:15 AM EST Office Visit [facility] [address] [place] [phone] Yi Thompson MD [address] [place] [phone] documented as of this encounter Goals Goal [...] as of this encounter Care Teams Senior Sql Server Developer Relationship Specialty Start Date End Date Yi Thompson MD [address] [place] [phone] PCP - General Internal Medicine 08/20/23 documented as of this encounter
--- OUTSIDE RECORDS SUMMARY | 2025-07-18 12:46 | XMS_ITS | Encounter Summary ---
Author Organization [employer] Address [address] [place] [address] Care Team Providers Care Deckhand Fishing Vessel Name Role Phone Juliet Bird [facility] Primary Care Provider Yi Jessica MD Primary Care Pro vider Reason for Visit * Reason Comments Med Refill Encounter Details Date Type Department Care Team (Late Contact Info) Description 01/28/2023 Refill [facility] [address] [place], [place] [phone] [facility] [address] [place], [place] [phone] Primary hypertension Social History Tobacco Use Types [...] Description 10/10/2025 9:15 AM EST Office Visit [facility] [address] [place], [place] [phone] Yi Thompson MD [address] [place], [place] [phone] documented as of this encounter Visit Diagnoses Diagnosis Primary hypertension Unspecified essential hypertension documented in this encounter Care Teams Deckhand Fishing Vessel Relationship Specialty Start Date End Date Juliet Bird FNP PCP - General Family Medicine 01/22/23 08/19/23 Yi Thompson MD [address] [place] [phone] PCP - General Internal Medicine 08/20/23 documented as of this encounter
--- OUTSIDE RECORDS SUMMARY | 2025-07-18 12:46 | XMS_ITS | Encounter Summary ---
Author Organization [employer] Address [address] [place] [address] Care Team Providers Care Photo Technician Name Role Phone Yi Thompson MD Primary Care Pro vider Encounter Details Date Type Department Care Team (Latest Contact Info) Description 05/26/2025 Results Follow-Up [facility] [address] [place] [address] Yi Thompson MD [address] [place] [address] CBC auto differential, Reticulocyte Count, Hemoglobin A1c, Additional followed-up results: 6 Social History Tobacco Use Types Packs/Day Years [...] Miscellaneous Notes * Result Encounter Note - Yi Cleary MD - 05/26/2025 5:03 PM EDT Please call patient to advise to come to already scheduled apt with me to go over abnormal labs Thanks documented in this encounter Plan of Treatment Upcoming Encounters Date Type Department Care Team (Late st Contact Info) Description 10/10/2025 9:15 AM EST Office Visit [facility] [address] [place] [phone] Yi Thompson MD [address] [place] [address] documented as of this encounter Goals Goal Patient Goal Type Associated Problems Recent Progress Patient-Stated? Author Blood Pressure < 140/90 Blood Pressure 132/78(2024 1:12 PM EDT) No Jn Shah Hemoglobin A1c < 7 Result Component 7.1(07/11/202 5 10:35 AM EDT) No Jn Shah documented as of this encounter Visit Diagnoses Not on filedocumented in this encounter Additional Health Concerns Assessment Noted Time PHQ-9 Depression Total Score: 0 04/06/20 25 11:08 AM EDT documented as of this encounter Care Teams Photo Technician Relationship Specialty Start Date End Date Yi Thompson MD [address] [place] [phone] PCP - General Internal Medicine 08/20/23 documented as of this encounter
--- OUTSIDE RECORDS SUMMARY | 2025-07-18 12:46 | XMS_ITS | Encounter Summary ---
Author Organization [employer] Address [address] [place] [address] Care Team Providers Care Fuel Operator Name Role Phone Yi Thompson MD Primary Care Pro vider Reason for Visit * Reason Comments Med Refill Encounter Details Date Type Department Care Team ([facility] st Contact Info) Description 05/03/2024 Refill [facility] [address] [place] [address] Yi Thompson MD [address] [place] [address] Social History Tobacco Use Types Packs/Day Years [...] Description 10/10/2025 9:15 AM EST Office Visit [facility] [address] [place] [address] [phone] Yi Thompson MD [address] [place] [address] [phone] documented as of this encounter Goals Goal [...] documented as of this encounter Care Teams Fuel Operator Relationship Specialty Start Date End Date Yi Thompson MD [address] [place] [address] [phone] PCP - General Internal Medicine 08/20/23 documented as of this encounter
--- OUTSIDE RECORDS SUMMARY | 2025-07-18 12:46 | XMS_ITS | Encounter Summary ---
Author Organization [employer] Address [address] [place] [phone] Care Team Providers Care Manager Bench Name Role Phone Yi Thompson MD Primary Care Pro vider Reason for Visit * Reason Comments Med Refill Encounter Details Date Type Department Care Team ([facility] st Contact Info) Description 05/20/2024 Refill [facility] [address] [place] [phone] Name, MD Ronny [address] [place] [address] Social History Tobacco Use Types Packs/Day Years [...] Description 10/10/2025 9:15 AM EST Office Visit [facility] [address] [place] [address] [phone] Yi Thompson MD [address] [place] [address] [phone] documented as of this encounter Goals Goal [...] documented as of this encounter Care Teams Manager Bench Relationship Specialty Start Date End Date Yi Thompson MD [address] [place] [phone] PCP - General Internal Medicine 08/20/23 documented as of this encounter
--- OUTSIDE RECORDS SUMMARY | 2025-07-18 12:46 | XMS_ITS | Encounter Summary ---
Author Organization [employer] Address [address] [place] [address] Care Team Providers Care Stator Connector Name Role Phone Yi Thompson MD Primary Care Pro vider Reason for Visit * Reason Comments Med Change Request Encounter Details Date Type Department Care Team ([facility] st Contact Info) Description 11/08/2023 Refill [facility] [address] [place] [address] [facility] [address] [place] [address] Viral upper respiratory illness Social History Tobacco [...] Description 10/10/2025 9:15 AM EST Office Visit [facility] [address] [place] [address] [phone] Yi Thompson MD [address] [place] [phone] documented as of this encounter Visit Diagnoses Diagnosis Viral upper respiratory illness documented in this encounter Care Teams Stator Connector Relationship Specialty Start Date End Date Yi Thompson MD [address] [place] [address] [phone] PCP - General Internal Medicine 08/20/23 documented as of this encounter
--- OUTSIDE RECORDS SUMMARY | 2025-07-18 12:46 | XMS_ITS | Encounter Summary ---
Author Organization [employer] Address [address] [place] [address] Care Team Providers Care Lace Stripper Name Role Phone Yi Thompson MD Primary Care Pro vider Reason for Visit * Reason Comments Med Refill Encounter Details Date Type Department Care Team ([facility] st Contact Info) Description 06/02/2024 Refill [facility] [address] [place] [address] Yi Thompson MD 230 [place] [address] Social History Tobacco Use Types Packs/Day Years [...] Description 10/10/2025 9:15 AM EST Office Visit [facility] [address] [place] [address] [phone] Yi Thompson MD [address] [place] [address] [phone] documented as of this encounter Goals Goal [...] documented as of this encounter Care Teams Lace Stripper Relationship Specialty Start Date End Date Yi Thompson MD [address] [place] [address] [phone] PCP - General Internal Medicine 08/20/23 documented as of this encounter
--- OUTSIDE RECORDS SUMMARY | 2025-07-18 12:46 | XMS_ITS | Encounter Summary ---
Author Organization [employer] Address [address] [place] [address] Care Team Providers Care Cost Estimating Clerk Name Role Phone Yi Thompson MD Primary Care Pro vider Reason for Visit * Reason Onset Date Comments Call Back Request 04/25/2025 Encounter Details Date Type Department Care Team ([facility] Contact Info) Description 04/25/2025 Telephone [facility] 230 [place] [address] Yi Thompson MD 230 [place] [address] Call Back Request Social History Tobacco Use Types Packs/Day Years [...] encounter Miscellaneous Notes * Telephone Encounter - Jalen Anton - 04/25/2025 2:06 PM EDT Telephone call from Norah at [facility] Physical Therapy Department: Norah, the Port[employer] SawyerMaintenance Groundman, informed that a referral has been received for the patient. However, the physical therapy provider would like to speak directly with the referring provider--not nursing staff--regarding the referral. When calling [facility] Physical Therapy at [phone], ask for Norah. She will transfer the call to the appropriate provider, as there is no direct line available. documented in this encounter Plan of Treatment Upcoming Encounters Date Type Department Care Team (Late st Contact Info) Description 10/10/2025 9:15 AM EST Office Visit [facility] [address] [place] [phone] Yi Thompson MD 230 [place] [address] documented as of this encounter Goals Goal Patient Goal Type Associated Problems Recent Progress Patient-Stated? Author Blood Pressure < 140/90 Blood Pressure 132/78(2024 1:12 PM EDT) Jn Petit Hemoglobin A1c < 7 Result Component 7.1( 10:35 AM EDT) No Jn Shah documented as of this encounter Visit Diagnoses Not on filedocumented in this encounter Additional Health Concerns Assessment Noted Time PHQ-9 Depression Total Score: 0 04/06/20 11:08 AM EDT documented as of this encounter Care Teams Cost Estimating Clerk Relationship Specialty Start Date End Date Yi Thompson MD [address] [place] [phone] PCP - General Internal Medicine 08/20/23 documented as of this encounter
--- OUTSIDE RECORDS SUMMARY | 2025-07-18 12:46 | XMS_ITS | Encounter Summary ---
Author Organization [employer] Address [address] [facility] [address] [address] Care Team Providers Care Nylon Machine Operator Name Role Phone Yi Thompson MD Primary Care Pro vider Reason for Visit * Reason Comments Med Refill Encounter Details Date Type Department Care Team ([facility] st Contact Info) Description 09/15/2023 Refill [facility] [address] [place] [address] Juliet Bird, MARY ELLEN Primary hypertension; Type 2 diabetes mellitus without complication, without long-term current use of insulin ([facility]) Social History Tobacco Use Types [...] Description 10/10/2025 9:15 AM EST Office Visit [facility] [address] [place] [phone] Yi Thompson MD 230 [place], [place] [phone] documented as of this encounter Visit Diagnoses Diagnosis Primary hypertension Unspecified essential hypertension Type 2 diabetes mellitus without complication, without long-term current use of insulin ([facility]) documented in this encounter Care Teams Nylon Machine Operator Relationship Specialty Start Date End Date Yi Thompson MD [address] [place] [phone] PCP - General Internal Medicine 08/20/23 documented as of this encounter
--- OUTSIDE RECORDS SUMMARY | 2025-07-18 12:46 | XMS_ITS | Encounter Summary ---
Author Organization [employer] Address [address] [place] [address] Care Team Providers Care Compensation Consulting Manager Name Role Phone Yi Thompson MD Primary Care Pro vider Reason for Visit * Reason Comments Med Change Request Encounter Details Date Type Department Care Team ([facility] st Contact Info) Description 11/11/2023 Refill [facility] [address] [place] [address] [facility] 230 [place] [address] Viral upper respiratory illness Social History Tobacco [...] Description 10/10/2025 9:15 AM EST Office Visit [facility] [address] [place] [phone] Yi Thompson MD [address] [place] [phone] documented as of this encounter Visit Diagnoses Diagnosis Viral upper respiratory illness documented in this encounter Care Teams Compensation Consulting Manager Relationship Specialty Start Date End Date Yi Thompson MD [address] [place] [address] [phone] PCP - General Internal Medicine 08/20/23 documented as of this encounter
== END 2025-07-18 12:50 | disposition home or self-care (01) ==
LOC: HO.HSMS 11:12
PROVIDERS: PCP Student in an Organized Health Care Education/Training Program; Visit Provider Physician Assistant Medical
DX: R53.83 Other fatigue (principal); G47.9 Sleep disorder, unspecified; R93.7 Abnormal findings on diagnostic imaging of other parts of musculoskeletal system; G24.3 Spasmodic torticollis; R41.89 Other symptoms and signs involving cognitive functions and awareness; G44.029 Chronic cluster headache, not intractable; D50.8 Other iron deficiency anemias; G47.19 Other hypersomnia; M54.50 Low back pain, unspecified; G89.29 Other chronic pain
CPT/HCPCS: 99214

== ENCOUNTER 2025-07-21 12:48 | Outpatient (REF) | payer OTHER, SELFPAY ==
--- NOTE | ~2025-07-21 | US_ITS ---
CLINICAL HISTORY: R35.0 - Frequency of micturition Ultrasound of the female pelvis Comparison: None provided Technique: Grayscale ultrasound with assistance of color Doppler. Transabdominal scanning performed for overall anatomy. Transvaginal scanning performed for better anatomic delineation. Findings: Status post hysterectomy, unremarkable vaginal cuff. Ovaries are not seen, no adnexal mass, per patient, she had left oophorectomy. Urinary bladder is partially included, the visualized portion is normal. No free fluid. Impression: No acute finding. This document has been electronically signed by: Tereza Allen MD on 07/21/2025 14:48:09
== END 2025-07-21 12:49 | disposition home or self-care (01) ==
LOC: HO.US 12:48
PROVIDERS: PCP Student in an Organized Health Care Education/Training Program; Visit Provider Obstetrics & Gynecology
DX: R35.0 Frequency of micturition (principal)
CPT/HCPCS: 76830; 76856

== ENCOUNTER → 2025-07-21 12:50 | Outpatient (BNV) | payer OTHER, SELFPAY | PROVIDERS: PCP Student in an Organized Health Care Education/Training Program; Visit Provider Radiology Diagnostic Radiology | DX: R35.0 Frequency of micturition (principal) | CPT/HCPCS: 76830; 76856 ==

== ENCOUNTER 2025-07-25 06:59 | Day surgery (SDC) | payer OTHER, SELFPAY ==
--- OUTSIDE RECORDS SUMMARY | 2025-06-29 08:03 | XMS_ITS | Encounter Summary ---
Author Organization [employer] Address [address] [place] [id number] Care Team Providers Care Attorney General Name Role Phone Yi Thompson MD Primary Care Pro vider Reason for Visit * Reason Onset Date Comments oct recall 06/28/2025 Encounter Details Date Type Department Care Team ([facility] st Contact Info) Description 06/28/2025 Telephone [facility] [address] [place] [address] Yi Thompson MD [address] [place] [address] oct recall Social History Tobacco Use Types Packs/Day Years [...] encounter Miscellaneous Notes * Telephone Encounter - Yasmin Mullen MA - 06/28/2025 3:50 PM EDT Telephone call to patient to schedule the following recall: Date: 09/12/2025 Status: Maurice Time: 9:15 AM Arrive By: Length: 30 Visit Type: PHYSICAL [1005] Copay: $0.00 Provider: Yi Cleary MD documented in this encounter Plan of Treatment Upcoming Encounters Date Type Department Care Team (Late st Contact Info) Description 09/12/2025 9:15 AM EDT Office Visit [facility] [address] [place] [phone] Yi Thompson MD [address] [place] [phone] documented as of this encounter Goals Goal [...] Time PHQ-9 Depression Total Score: 0 04/06/20 11:08 AM EDT documented as of this encounter Care Teams Attorney General Relationship Specialty Start Date End Date Yi Thompson MD [address] [place] [phone] PCP - General Internal Medicine 08/20/23 documented as of this encounter
[2025-07-21 12:40] VITALS: BMI 25.6
--- NOTE | 2025-07-24 10:08 | HO.ANESPROP2 ---
Documented by User: Marleny Bedoya NP 07/24/25 10:17 HPI - Anesthesia Eval Consult details Narrative: 64 yr old female for Cystoscopy Hydrodistention of Bladder Type 2 DM: ? stopped SGLT 2/2 side effects, A1C 7.1% Brain MRI 06/2025 showing MRI Mild Vertebral artery compression and chronic microvascular ischemic vessel disease - referred to neurosurgery Memory loss PMFSH Active Problems Active Problems: All Active Problems (Updated 07/19/25 @ 00:16 by Phyllis Fair PA-C) Headaches, cluster (Acute) Abnormal MRI, cervical spine (Acute) Sacroiliac joint dysfunction of right side (Acute) Carpal tunnel syndrome of right wrist (Acute) Chronic interstitial cystitis (Acute) Bladder pain (Acute) Urinary frequency (Acute) Chronic lower back pain (Acute) Excessive daytime sleepiness (Acute) Chronic pain syndrome (Acute) Cubital tunnel syndrome, bilateral (Acute) Bilateral numbness and tingling of arms and legs (Acute) Fatigue due to sleep pattern disturbance (Acute) Spasmodic torticollis (Acute) Hx of migraines (Acute) Anemia (Acute) Headache (Acute) Cognitive disorder (Acute) Cervical dystonia (Acute) Spondylosis of lumbar region without myelopathy or radiculopathy (Acute) Chronic right SI joint pain (Acute) Sacroiliitis (Acute) Disc degeneration, lumbar (Acute) Vaginitis (Acute) Lumbar radiculopathy (Acute) Back pain (Acute) Fall (Acute) Abnormal stress ECG (Acute) Chest discomfort (Acute) Duplex kidney (Acute) Acute UTI (Acute) Thumb locking (Acute) Palpitations (Acute) Non-cardiac chest pain (Acute) Failure of spinal cord stimulator (Acute) Chronic cystitis (Acute) Varicose veins of right lower extremity with inflammation (Acute) History of thymectomy (Acute) Pulmonary nodules (Acute) Controlled diabetes mellitus with diabetic polyneuropathy (Acute) De Quervain's tenosynovitis, left (Acute) Patellofemoral arthritis of left knee (Acute) Patellofemoral arthritis of right knee (Acute) Chronic pelvic pain in female (Acute) Dyspareunia in female (Acute) Myofascial pain (Acute) Atrophic vaginitis (Acute) Osteoarthritis of right knee (Acute) CRPS (complex regional pain syndrome type I) (Acute) History of thyroid cancer (Acute) Constipation by delayed colonic transit (Acute) Gastritis (Acute) Hypertension (Acute) Dyslipidemia (Acute) Post-surgical hypothyroidism (Acute) Primary thyroid cancer (Acute) Vitamin D deficiency (Acute) Past Medical History Medical History Type 2 diabetes mellitus with polyneuropathy Bladder pain Headache Cognitive disorder Cervical dystonia Palpitations Non-cardiac chest pain Pelvic pain Leg pain Lower abdominal pain Gross hematuria Toe pain Right knee pain Effusion, right knee Dysuria Pelvic pain in female Hematuria Mass of spine Hematuria DM2 (diabetes mellitus, type 2) Nail deformity Paronychia Failure of spinal cord stimulator Thymoma Pulmonary nodules Thyroid cancer Blood in urine Constipation by delayed colonic transit Tubular adenoma of colon Gastritis Hypertension Dyslipidemia Post-surgical hypothyroidism Primary thyroid cancer Vitamin D deficiency Family History Family History Father Stroke Heart attack Mother Diabetes mellitus Family/Other Family history of cancer Sister Stomach cancer Family/Other Thyroid cancer Family history of problems with anesthesia: No Surgical History Surgical History History of thymectomy History of back surgery Hx of colonoscopy Hx of thyroidectomy Hx of hernia repair Hx of section Hx of hysterectomy History of esophagogastroduodenoscopy (EGD) History of Problems with Anesthesia: No Social History Social History Household Members: Spouse, Family and Other Household Members Other:: grandson Housing: Apartment Are you a primary life care planner to a significant other at home: No Do you presently have visiting nurse or other home services: No Alcohol intake: former Comment: socially Patient Tobacco Use Status: Never used Tobacco Tobacco use type: Cigarette Second Hand Smoke Exposure: No Have you been hit, kicked, punched, or otherwise hurt by someone within the past year? If so, by whom?: No Are you DNR?: No Advance Directives: No Advance Directives Information Provided: Yes service: No Sexual orientation: Straight/Heterosexual Gender identity: Female Meds Allergies Allergy/AdvReac Type Severity Reaction Status Date / Time Penicillins (PENICILLINS) Allergy Intermediate HIVES Verified 07/18/25 11:27 Home Medications ?Medication ?Instructions ?Recorded ?Confirmed ?Last Taken ?Type albuterol sulfate 90 mcg/actuation 2 puff inhalation Q4-6H PRN 09/05/22 07/25/25 10/20/24 History aerosol inhaler (ProAir HFA) Wheezing metformin 500 mg tablet,extended 500 mg PO BID 11/19/23 07/25/25 07/23/25 History release 24 hr fluticasone propionate 50 1 spray intranasal BID 03/01/24 07/25/25 07/23/25 History mcg/actuation nasal spray,suspension montelukast 10 mg tablet 10 mg PO DAILY 03/01/24 07/25/25 07/23/25 History sitagliptin phosphate 100 mg 100 mg PO DAILY 10/19/24 07/25/25 07/12/25 History tablet (Januvia) losartan 100 1 tab PO DAILY 12/15/24 07/25/25 07/23/25 History mg-hydrochlorothiazide 12.5 mg tablet atorvastatin 10 mg tablet 10 mg PO DAILY 04/14/25 07/25/25 07/23/25 History amitriptyline 10 mg tablet 10 mg PO BEDTIME 07/18/25 07/25/25 07/23/25 History pantoprazole 40 mg tablet,delayed 40 mg PO QAM 07/18/25 07/25/25 07/23/25 History release Exam Height,Weight and Vital Signs: Height 5 ft 5 in Weight 69.853 kg Pertinent Lab Results Pertinent Lab Results: Laboratory Tests 06/23/25 13:42 WBC 6.8 RBC 4.67 Hgb 11.1 L Hct 35.0 L Plt Count 285 Sodium 140 Potassium 3.9 BUN 16 Creatinine 0.77 Narrative Narrative: EKG 11/2024 Vent. Rate : 105 BPM Atrial Rate : 105 BPM P-R Int : 154 ms QRS Dur : 074 ms QT Int : 348 ms P-R-T Axes : 059 007 051 degrees QTc Int : 459 ms Sinus tachycardia Possible Left atrial enlargement Inferior infarct (cited on or before 06-MAY-2023) Abnormal ECG When compared with ECG of 29-JUL-2024 12:05, No significant change was found Assessment and Plan Final Anesthetic Review Family History of Problems with Anesthesia: No History of Problems with Anesthesia: No Documented by User: Munira Chavira MD 07/25/25 08:43 [facility] Active Problems Active Problems: All Active Problems (Updated 07/19/25 @ 00:16 by Phyllis Fair PA-C) Headaches, cluster (Acute) Abnormal MRI, cervical spine (Acute) Sacroiliac joint dysfunction of right side (Acute) Carpal tunnel syndrome of right wrist (Acute) Chronic interstitial cystitis (Acute) Bladder pain (Acute) Urinary frequency (Acute) Chronic lower back pain (Acute) Excessive daytime sleepiness (Acute) Chronic pain syndrome (Acute) Cubital tunnel syndrome, bilateral (Acute) Bilateral numbness and tingling of arms and legs (Acute) Fatigue due to sleep pattern disturbance (Acute) Spasmodic torticollis (Acute) Hx of migraines (Acute) Anemia (Acute) Headache (Acute) Cognitive disorder (Acute) Cervical dystonia (Acute) Spondylosis of lumbar region without myelopathy or radiculopathy (Acute) Chronic right SI joint pain (Acute) Sacroiliitis (Acute) Disc degeneration, lumbar (Acute) Vaginitis (Acute) Lumbar radiculopathy (Acute)o Back pain (Acute) Fall (Acute) Abnormal stress ECG (Acute) Chest discomfort (Acute) Duplex kidney (Acute) Acute UTI (Acute) Thumb locking (Acute) Palpitations (Acute) Non-cardiac chest pain (Acute) Failure of spinal cord stimulator (Acute) Chronic cystitis (Acute) Varicose veins of right lower extremity with inflammation (Acute) History of thymectomy (Acute) Pulmonary nodules (Acute) Controlled diabetes mellitus with diabetic polyneuropathy (Acute) De Quervain's tenosynovitis, left (Acute) Patellofemoral arthritis of left knee (Acute) Patellofemoral arthritis of right knee (Acute) Chronic pelvic pain in female (Acute) Dyspareunia in female (Acute) Myofascial pain (Acute) Atrophic vaginitis (Acute) Osteoarthritis of right knee (Acute) CRPS (complex regional pain syndrome type I) (Acute) History of thyroid cancer (Acute) Constipation by delayed colonic transit (Acute) Gastritis (Acute) Hypertension (Acute) Dyslipidemia (Acute) Post-surgical hypothyroidism (Acute) Primary thyroid cancer (Acute) Vitamin D deficiency (Acute) Past Medical History Medical History Type 2 diabetes mellitus with polyneuropathy Bladder pain Headache Cognitive disorder Cervical dystonia Palpitations Non-cardiac chest pain Pelvic pain Leg pain Lower abdominal pain Gross hematuria Toe pain Right knee pain Effusion, right knee Dysuria Pelvic pain in female Hematuria Mass of spine Hematuria DM2 (diabetes mellitus, type 2) Nail deformity Paronychia Failure of spinal cord stimulator Thymoma Pulmonary nodules Thyroid cancer Blood in urine Constipation by delayed colonic transit Tubular adenoma of colon Gastritis Hypertension Dyslipidemia Post-surgical hypothyroidism Primary thyroid cancer Vitamin D deficiency Family History Family History Father Stroke Heart attack Mother Diabetes mellitus Family/Other Family history of cancer Sister Stomach cancer Family/Other Thyroid cancer Surgical History Surgical History History of thymectomy History of back surgery Hx of colonoscopy Hx of thyroidectomy Hx of hernia repair Hx of section Hx of hysterectomy History of esophagogastroduodenoscopy (EGD) Social History Social History Household Members: Spouse, Family and Other Household Members Other:: grandson Housing: Apartment Are you a primary life care planner to a significant other at home: No Do you presently have visiting nurse or other home services: No Alcohol intake: former Comment: socially Patient Tobacco Use Status: Never used Tobacco Tobacco use type: Cigarette Second Hand Smoke Exposure: No Have you been hit, kicked, punched, or otherwise hurt by someone within the past year? If so, by whom?: No Are you DNR?: No Advance Directives: No Advance Directives Information Provided: Yes service: No Sexual orientation: Straight/Heterosexual Gender identity: Female Meds Allergies Allergy/AdvReac Type Severity Reaction Status Date / Time Penicillins (PENICILLINS) Allergy Intermediate HIVES Verified 07/18/25 11:27 Home Medications ?Medication ?Instructions ?Recorded ?Confirmed ?Last Taken ?Type albuterol sulfate 90 mcg/actuation 2 puff inhalation Q4-6H PRN 09/05/22 07/25/25 10/20/24 History aerosol inhaler (ProAir HFA) Wheezing metformin 500 mg tablet,extended 500 mg PO BID 11/19/23 07/25/25 07/23/25 History release 24 hr fluticasone propionate 50 1 spray intranasal BID 03/01/24 07/25/25 07/23/25 History mcg/actuation nasal spray,suspension montelukast 10 mg tablet 10 mg PO DAILY 03/01/24 07/25/25 07/23/25 History sitagliptin phosphate 100 mg 100 mg PO DAILY 10/19/24 07/25/25 07/12/25 History tablet (Januvia) losartan 100 1 tab PO DAILY 12/15/24 07/25/25 07/23/25 History mg-hydrochlorothiazide 12.5 mg tablet atorvastatin 10 mg tablet 10 mg PO DAILY 04/14/25 07/25/25 07/23/25 History amitriptyline 10 mg tablet 10 mg PO BEDTIME 07/18/25 07/25/25 07/23/25 History pantoprazole 40 mg tablet,delayed 40 mg PO QAM 07/18/25 07/25/25 07/23/25 History release Exam Airway Mallampati Class: II TM Dist: >3cm Neck ROM: Full Loose/Missing/Broken Teeth: No Heart: RRR Lungs: CTA Assessment and Plan Assessment Anesthesia Assessment: Anesthesia Plan Discussed and Chart Reviewed Final Anesthetic Review NPO: Yes ASA Class: III Final Preanesthetic Review: Meds/Allgs Chart Reviewed, Consent Obtained/Reviewed and Anes Risks/Benef Reviewed Patient Risk: Intermediate Procedure Risk: Low Anesthetic Plan Anesthetic Plan: GA Disposition: Standard PACU
[2025-07-25 07:04] VITALS: BP 155/90; PULSE 102; RESP 20; TEMP 36.4; O2SAT 97; BMI 25.4
[2025-07-25 07:15] LABS: Glucose, Whole Blood 172 mg/dL (60-115)
[2025-07-25] MEDS: Lactated Ringers 1,000 ML 100 ML IVCONT (07:29)
--- NOTE | 2025-07-25 08:35 | MHC.SHP ---
Pre-Procedural Eval Section A - 24 Hr Update-Section A only Date of Service: 07/25/25 The patient is an INPATIENT: No The patient has been examined within 24 hours of the surgical procedure. The History & Physical has been completed within 30 days and I have reviewed it.: Yes Section B - Complete if H&P > 30 days Chief Complaint: Interstitial cystitis (chronic) without hematuria Allergies: Allergies Allergy/AdvReac Type Severity Reaction Status Date / Time Penicillins (PENICILLINS) Allergy Intermediate HIVES Verified 07/18/25 11:27 Plan Diagnosis/Plan: Unchanged I have reviewed the history and physical and performed a pertinent physical examination on my patient. No changes have occurred unless specified. Cystoscopy. Hydrodistention. Discussed risks to include but not limited to, blood in the urine, burning with urination, urgency. Time Spent With Patient Time: Total time managing care of this patient today ____ minutes.
--- NOTE | 2025-07-25 08:36 | P.OP_ITS ---
Operative Note Operative Note Date of Service: 07/25/25 Narrative: PREOP DIAGNOSIS: Interstitial cystitis, pelvic pain POSTOP DIAGNOSIS: Interstitial cystitis, pelvic pain PROCEDURE: CYSTOSCOPY HYDRODISTENTION Anethesia: General Surgeon: Dr. Analy Campos Details of procedure: The patient was brought into the operating room placed on the OR table in supine position. IV antibiotics confirmed. General anesthesia was administered. The patient was repositioned into lithotomy position, prepped and draped in the usual sterile fashion. Time-out was done per protocol. A 22 fr cystoscope was placed transurethrally into the bladder. Urine was drained from the bladder measuring 175 mL. Urine was sent for culture. The right and left ureteral orifices were visualized. The entire bladder was visualized. There were no suspicious bladder lesions seen. There were mild trabeculations noted. Scarring from prior bladder biopsies noted. The bladder was filled with sterile water at 80 cm of water pressure under gravity. The binh dder was distended for 2 minutes. Bladder capacity measured 800 mL. Revisualization of the bladder, noted mild glomerulations. The bladder was refilled with sterile water again at 80 cm of water pressure under gravity. The bladder was distended for 3 minutes. The fluid was drained from the bladder and measured 875 mL. The cystoscope was removed. 2% lidocaine urojet was passed transurethrally, Solution of (1% lidocaine plain, 15 mL, 0.5 % Marcaine 15 mL mixed with 30, 000 units of heparin concentration 5000 units per mL total of 6 mL hepaine) instilled transurethrally into the bladder. The patient was brought out of anesthesia and taken to recovery in stable condition. Complications: None EBL: minimal (<5 mL) Drains: none
[2025-07-25 09:29] VITALS: BP 156/91; PULSE 107; RESP 10; TEMP 37.1; O2SAT 100
[2025-07-25 09:34] VITALS: BP 133/69; PULSE 98; RESP 12; O2SAT 98
[2025-07-25 09:39] VITALS: BP 128/73; PULSE 90; RESP 10; O2SAT 98
[2025-07-25 09:43] VITALS: BP 135/70; PULSE 91; RESP 12; O2SAT 98
[2025-07-25 09:55] VITALS: BP 140/78; PULSE 88; RESP 12; TEMP 37; O2SAT 98
== END 2025-07-25 10:24 | disposition home or self-care (01) ==
PROVIDERS: PCP Student in an Organized Health Care Education/Training Program; Visit Provider Urology
PROC: 0T7B7ZZ Dilation of Bladder, Via Natural or Artificial Opening (ICD-10-PCS; CPT 52260; principal; 2025-07-25 08:50)
DX: N30.10 Interstitial cystitis (chronic) without hematuria (principal); R10.2 Pelvic and perineal pain; N32.89 Other specified disorders of bladder; R39.89 Other symptoms and signs involving the genitourinary system; R39.15 Urgency of urination; R35.0 Frequency of micturition; E11.42 Type 2 diabetes mellitus with diabetic polyneuropathy; R91.8 Other nonspecific abnormal finding of lung field; K29.70 Gastritis, unspecified, without bleeding; Z85.850 Personal history of malignant neoplasm of thyroid; E89.0 Postprocedural hypothyroidism; I10 Essential (primary) hypertension; E78.5 Hyperlipidemia, unspecified; Q63.8 Other specified congenital malformations of kidney; Z79.1 Long term (current) use of non-steroidal anti-inflammatories (NSAID); Z79.84 Long term (current) use of oral hypoglycemic drugs; Z79.51 Long term (current) use of inhaled steroids; Z79.899 Other long term (current) drug therapy; Z88.0 Allergy status to penicillin; Z98.890 Other specified postprocedural states
CPT/HCPCS: 52260; 82947; 87086; J1644; J1956; J2003; J2405; J2704; J2795; J3010

== ENCOUNTER → 2025-07-25 06:59 | Outpatient (BNV) | payer OTHER, SELFPAY | PROVIDERS: PCP Student in an Organized Health Care Education/Training Program; Visit Provider Urology | DX: N30.10 Interstitial cystitis (chronic) without hematuria (principal); R10.2 Pelvic and perineal pain | CPT/HCPCS: 52260 ==

== ENCOUNTER 2025-08-02 13:47 | Outpatient (REF) | payer OTHER, SELFPAY ==
--- NOTE | ~2025-08-02 | CT_ITS ---
EXAMINATION: CT ABDOMEN AND PELVIS WITHOUT CONTRAST CLINICAL INFORMATION: Right lower quadrant pain for 3 weeks COMPARISON: March 09, 2024 TECHNIQUE: Multidetector volumetric imaging was performed from the superior aspect of the liver through the pubic symphysis. Sagittal and coronal reformatted images were obtained on the technologist's workstation. This CT examination was performed using dose optimization techniques as appropriate, variously including the following: *Automated exposure control *Adjustment of mA and/or kV according to patient size (this includes techniques or standardized protocols for targeted exams where dose is matched to indication/reason for exam; i.e. extremities or head) *Use of iterative reconstruction technique DLP: 385 mGy*cm FINDINGS: LUNG BASES: Again seen is a small centrally calcified pulmonary nodule in the posterior right lower lobe consistent with a granuloma. LIVER, GALLBLADDER, AND BILIARY TREE: Diffuse low attenuation is noted throughout the liver. The gallbladder is unremarkable with no evidence of radiopaque gallstones, gallbladder wall thickening, or obvious pericholecystic inflammatory changes. PANCREAS: Unremarkable. SPLEEN: Unremarkable. ADRENAL GLANDS: Unremarkable. KIDNEYS AND URETERS: The kidneys are normal in size, shape, and attenuation. No hydronephrosis, hydroureter, or calculi seen. No perinephric stranding. BLADDER: Unremarkable. GASTROINTESTINAL TRACT: There are a few scattered pseudodiverticula in the colon without inflammation of the fat or wall thickening. The appendix is unremarkable in its appearance. ABDOMINAL WALL: There are clips and thickening of the fascia along the midline just inferior to the umbilicus possibly related to prior ventral hernia repair. LYMPH NODES: Normal. VASCULAR: Multifocal calcifications are present in the aorta and iliac arteries. PELVIC VISCERA: The uterus is surgically absent. Left ovary is unremarkable. Right ovary is well-seen probably but no right adnexal abnormality is evident at the termination of the right ovarian vein. OSSEOUS STRUCTURES: L5-S1 demonstrates mild disc space narrowing with vacuum phenomenon and circumferential bulging disc CT/CT abdomen pelvis wo IV con IMPRESSION: Hepatic steatosis. Diverticulosis without evidence of infection. Normal-appearing appendix. Stable calcific granuloma in the posterior segment right lower lobe. Moderate degenerative disc disease at L5-S1 stable. Hysterectomy. No right adnexal abnormality. Fleischner guidelines were followed. Electronically signed by: Augusto Alvarez MD 08/02/2025 04:24 PM EDT RP
[2025-08-02] MEDS: Barium Sulfate Oral (Mocha) 450 ML ORAL.SUSP 900 ML PO (15:45)
== END 2025-08-02 13:48 | disposition home or self-care (01) ==
LOC: HO.CT 13:47
PROVIDERS: PCP Student in an Organized Health Care Education/Training Program
DX: R10.31 Right lower quadrant pain (principal)
CPT/HCPCS: 51798; 74176

== ENCOUNTER → 2025-08-02 13:50 | Outpatient (BNV) | payer OTHER, SELFPAY | PROVIDERS: PCP Student in an Organized Health Care Education/Training Program; Visit Provider Radiology Diagnostic Radiology | DX: K76.0 Fatty (change of) liver, not elsewhere classified (principal) | CPT/HCPCS: 74176 ==

== ENCOUNTER 2025-08-15 11:12 | Outpatient (AMB) | payer OTHER, SELFPAY ==
--- NOTE | 2025-08-15 11:20 | MHC.OFFVIS ---
Intake Visit Reasons: ultrasound follow up Intake Note: urinary symptoms Allergies Penicillins (PENICILLINS) Allergy (Intermediate, Verified 08/03/25 13:16) HIVES HPI Comments Details: Presenting for follow-up regarding her pelvic pain. The following workup was done so far: Last visit urine dip was negative. Pelvic ultrasound showed the following: Status post hysterectomy, unremarkable vaginal cuff. Ovaries are not seen, no adnexal mass, per patient, she had left oophorectomy. Urinary bladder is partially included, the visualized portion is normal. No free fluid. Impression: No acute finding. [facility] Medical History Type 2 diabetes mellitus with polyneuropathy Bladder pain Headache Cognitive disorder Cervical dystonia Palpitations Non-cardiac chest pain Pelvic pain Leg pain Lower abdominal pain Gross hematuria Toe pain Right knee pain Effusion, right knee Dysuria Pelvic pain in female Hematuria Mass of spine Hematuria DM2 (diabetes mellitus, type 2) Nail deformity Paronychia Failure of spinal cord stimulator Thymoma Pulmonary nodules Thyroid cancer Blood in urine Constipation by delayed colonic transit Tubular adenoma of colon Gastritis Hypertension Dyslipidemia Post-surgical hypothyroidism Primary thyroid cancer Vitamin D deficiency Surgical History History of thymectomy History of back surgery Hx of colonoscopy Hx of thyroidectomy Hx of hernia repair Hx of section Hx of hysterectomy History of esophagogastroduodenoscopy (EGD) Family History Father Stroke Heart attack Mother Diabetes mellitus Family/Other Family history of cancer Sister Stomach cancer Family/Other Thyroid cancer Social History Household Members: Spouse, Family and Other Household Members Other:: grandson Housing: Apartment Are you a primary career services manager to a significant other at home: No Do you presently have visiting nurse or other home services: No Alcohol intake: former Comment: socially Patient Tobacco Use Status: Never used Tobacco Tobacco use type: Cigarette Second Hand Smoke Exposure: No service: No Sexual orientation: Straight/Heterosexual Gender identity: Female Female Reproductive History Menstrual Age of Menarche: 13 Review of Systems Const All systems reviewed & are unremarkable except as noted in HPI and below Reports as per HPI and Reports no additional complaints GI Reports no additional complaints Reports no additional complaints Assessment & Plan Assessment & Plan (1) Chronic pelvic pain in female: Comment: History of chronic cystitis Code(s): R10.2 - Pelvic and perineal pain; G89.29 - Other chronic pain Category: Medical Plan: Discussed with the patient the results of the workup done including negative urine dip and pelvic ultrasound. Differential diagnosis of change management administrator causes that have not be ruled out yet include but not limited to pelvic adhesions , or others. Recommended for the patient to follow-up with Urology regarding her interstitial cystitis and see her PCP for further workup for non change management administrator causes; if the all the results are negative and the patient's pelvic pain is persistent, instructions given to patient to call back for further testing. Meanwhile, instructions were given the patient to go to emergency room or call in case of fever above 100.4, heavy vaginal bleeding, persistence or worsening of her pelvic pain. All questions answered, the patient verbalized understanding. Coding Level of Care Code Est Pt Level 3 (24126) Diagnoses Chronic pelvic pain in female R10.2; G89.29
--- OUTSIDE RECORDS SUMMARY | 2025-08-15 12:37 | XMS_ITS | Encounter Summary ---
Author Organization [employer] Address [address] [place] [address] Care Team Providers Care Parts Back Counter Man Name Role Phone Juliet Bird Primary Care Provider Yi Jessica MD Primary Care Pro vider Reason for Visit * Reason Comments Med Refill Encounter Details Date Type Department Care Team (Late Contact Info) Description 06/28/2023 Refill [facility] [address] [place] [phone] Juliet Bird FNP Social History Tobacco Use [...] Department Care Team (Late Contact Info) Description 08/16/2025 11:15 AM EDT Office Visit [facility] [address] [place] [address] [phone] Tere Thompson NP [address] [place] [address] 10/10/2025 9:15 AM EST Office Visit [facility] [address] [place] [address] [phone] Yi Thmopson MD 230 [place], [place] [phone] documented as of this encounter Visit Diagnoses Not on filedocumented in this encounter Care Teams Parts Back Counter Man Relationship Specialty Start Date End Date Juliet Bird FNP PCP - General Family Medicine 01/22/23 08/19/23 Yi Thompson MD [address] [place] [address] PCP - General Internal Medicine 08/20/23 documented as of this encounter
--- OUTSIDE RECORDS SUMMARY | 2025-08-15 12:37 | XMS_ITS | Encounter Summary ---
Author Organization [employer] Address [address] [place] [address] Care Team Providers Care Process Treater Name Role Phone Yi Thompson MD Primary Care Pro vider Reason for Visit * Reason Onset Date Comments Nurse Triage 02/15/2024 Encounter Details Date Type Department Care Team ([facility] st Contact Info) Description 02/15/2024 Telephone [facility] [address] [place] [address] Yi Thompson MD [address] [place] [address] Nurse Triage Social History Tobacco Use Types [...] 02/15/2024 12:44 PM EDT Triage call with [place] [employer] [place] [id number] Pt reports headache frontal and back of [...] 400pm. Pt is advised to come to [facility] which is open till 8pm this [...] Tingling sensation The caller accepted this outcome Maltese speaker documented in this encounter Plan of Treatment Upcoming Encounters Date Type Department Care Team (Late st Contact Info) Description 08/16/2025 11:15 AM EDT Office Visit [facility] [address] [place] [address] Tere Thompson NP 230 [place] [address] 10/10/2025 9:15 AM EST Office Visit [address] [address] Yi Thompson MD 230 [place] [address] documented as of this encounter Visit Diagnoses Not on filedocumented in this encounter Additional Health Concerns Assessment Noted Time PHQ-9 Depression Total Score: 1 01/13/20 24 12:16 PM EST documented as of this encounter Care Teams Process Treater Relationship Specialty Start Date End Date Yi Thompson MD [address] [place] [address] PCP - General Internal Medicine 08/20/23 documented as of this encounter
--- OUTSIDE RECORDS SUMMARY | 2025-08-15 12:37 | XMS_ITS | Encounter Summary ---
Author Organization [employer] Address [address] [place] [address] Care Team Providers Care Manufacturing Test Technician Name Role Phone Juliet Bird [facility] Primary Care Provider Yi Jessica MD Primary Care Pro vider Reason for Visit * Reason Comments Med Refill Encounter Details Date Type Department Care Team (Late st Contact Info) Description 01/28/2023 Refill [facility] [address] [place] [address] [facility] [address] [place] [address] Primary hypertension Social History Tobacco Use Types [...] Description 08/16/2025 11:15 AM EDT Office Visit [facility] [address] [place], [place] [phone] Tere Thompson NP 230 [place], [place] [phone] 10/10/2025 9:15 AM EST Office Visit [facility] [address] [place], [place] [phone] Yi Thompson MD 230 [place] [address] documented as of this encounter Visit Diagnoses Diagnosis Primary hypertension Unspecified essential hypertension documented in this encounter Care Teams Manufacturing Test Technician Relationship Specialty Start Date End Date Juliet Bird FNP PCP - General Family Medicine 01/22/23 08/19/23 Yi Thompson MD [address] [place], [place] [phone] PCP - General Internal Medicine 08/20/23 documented as of this encounter
--- OUTSIDE RECORDS SUMMARY | 2025-08-15 12:37 | XMS_ITS | Encounter Summary ---
Author Organization [employer] Address [address] [place] [address] Care Team Providers Care Groover Runner Name Role Phone Yi Thompson MD Primary Care Pro vider Reason for Visit * Reason Comments Med Refill Encounter Details Date Type Department Care Team ([facility] st Contact Info) Description 05/03/2024 Refill [facility] [address] [place] [address] Yi Thompson MD [address] [place] [address] Social History Tobacco Use Types Packs/Day Years [...] Description 08/16/2025 11:15 AM EDT Office Visit [facility] [address] [place] [address] [phone] Tere Thompson NP [address] [place] [address] 10/10/2025 9:15 AM EST Office Visit [address] [phone] Yi Thompson MD [address] [place] [address] [phone] documented as of this encounter Goals Goal Patient Goal Type Associated Problems Recent Progress Patient-Stated? Author Blood Pressure < 140/90 Blood Pressure 132/78(2024 1:12 PM EDT) Jn Petit Hemoglobin A1c < 7 Result Component 7.1( 10:35 AM EDT) Jn Petit documented as of this encounter Visit Diagnoses Not on filedocumented in this encounter Additional Health Concerns Assessment Noted Time PHQ-9 Depression Total Score: 1 01/13/20 24 12:16 PM EST documented as of this encounter Care Teams Groover Runner Relationship Specialty Start Date End Date Yi Thompson MD [address] [place] [address] PCP - General Internal Medicine 08/20/23 documented as of this encounter
--- OUTSIDE RECORDS SUMMARY | 2025-08-15 12:37 | XMS_ITS | Encounter Summary ---
Author Organization [employer] Address [address] [place] [address] Care Team Providers Care Tank Worker Name Role Phone Yi Thompson MD Primary Care Pro vider Reason for Visit * Reason Onset Date Comments Call Back Request 04/25/2025 Encounter Details Date Type Department Care Team ([facility] Contact Info) Description 04/25/[address] [facility] [address] [place] [address] Yi Thompson MD [address] [place] [address] Call Back Request Social History Tobacco Use [...] PM EDT Telephone call from Norah at [facility] Physical Therapy Department: Norah, the Hydraulic Press TenderBuilding Specialist, informed that a referral has been received for the patient. However, the physical therapy provider would like to speak directly with the referring provider--not nursing staff--regarding the referral. When calling [facility] Physical Therapy at [phone], ask for Norah. She will transfer the call to the appropriate provider, as there is no direct line available. documented in this encounter Plan of Treatment Upcoming Encounters Date Type Department Care Team (Late st Contact Info) Description 08/16/2025 11:15 AM EDT Office [address] [facility] [address] [place], [place] [phone] Tere Thompson NP 230 [place], [place] [phone] 10/10/2025 9:15 AM EST Office Visit [facility] [address] [place] [address] Yi Thompson MD [address] [place] [address] documented as of this encounter Goals Goal [...] as of this encounter Care Teams Tank Worker Relationship Specialty Start Date End Date Yi Thompson MD [address] [place] [address] PCP - General Internal Medicine 08/20/23 documented as of this encounter
--- OUTSIDE RECORDS SUMMARY | 2025-08-15 12:37 | XMS_ITS | Encounter Summary ---
Author Organization [employer] Address [address] [place] [address] Care Team Providers Care Aircraft Motor Mechanic Name Role Phone Yi Thompson MD Primary Care Pro vider Reason for Visit * Reason Comments Med Change Request Encounter Details Date Type Department Care Team ([facility] st Contact Info) Description 11/11/2023 Refill [facility] 230 [place] [address] [facility] 230 [place] [address] Viral upper respiratory illness Social History Tobacco [...] Description 08/16/2025 11:15 AM EDT Office Visit [facility] [address] [place] [address] Tere Thompson NP [address] [place] [address] 10/10/2025 9:15 AM EST Office Visit [address] [address] Yi Thompson MD [address] [place] [address] documented as of this encounter Visit Diagnoses Diagnosis Viral upper respiratory illness documented in this encounter Care Teams Aircraft Motor Mechanic Relationship Specialty Start Date End Date Yi Thompson MD [address] [place] [address] PCP - General Internal Medicine 08/20/23 documented as of this encounter
--- OUTSIDE RECORDS SUMMARY | 2025-08-15 12:37 | XMS_ITS | Encounter Summary ---
Author Organization [employer] Address [address] [place] [address] Care Team Providers Care Colorist Photography Name Role Phone Yi Thompson MD Primary Care Pro vider Reason for Visit * Reason Comments Med Refill Encounter Details Date Type Department Care Team ([facility] st Contact Info) Description 06/02/2024 Refill [facility] 230 [place] [address] Yi Thompson MD [address] [place] [address] Social History Tobacco Use Types Packs/Day Years [...] Description 08/16/2025 11:15 AM EDT Office Visit [facility] [address] [place] [address] [phone] Tere Thompson NP [address] [place] [address] 10/10/2025 9:15 AM EST Office Visit [address] [phone] Yi Thompson MD [address] [place] [address] [phone] documented as of this encounter Goals Goal [...] documented as of this encounter Care Teams Colorist Photography Relationship Specialty Start Date End Date Yi Thompson MD [address] [place] [address] PCP - General Internal Medicine 08/20/23 documented as of this encounter
--- OUTSIDE RECORDS SUMMARY | 2025-08-15 12:37 | XMS_ITS | Encounter Summary ---
Author Organization [employer] Address [address] [place] [address] Care Team Providers Care Management Lead Name Role Phone Yi Thompson MD Primary Care Pro vider Reason for Referral * Consultation (Routine) - Authorized Specialty Diagnoses / Procedures Referred By Contac t Referred To Contact Pharmacy Diagnoses Hypertension Maria Del Carmen Meza MD [address] [place] [address] Phone: tel: fax: Referral ID Status Reason Start Date Expiration Date Visits Requested Visits Authorized [id number] Authorized Continuity of Care 04/03/2025 04/03/2026 6 6 Encounter Details Date Type Department Care Team ([facility] st Contact Info) Description 03/30/2025 Orders Only [facility] 230 [place] [address] Maria Del Carmen Meza MD [address] [place], [place] [phone] Hypertension (Primary Dx) Social History Tobacco Use [...] Description 08/16/2025 11:15 AM EDT Office Visit [facility] [address] [place] [address] Tere Thompson NP [address] [place] [address] 10/10/2025 9:15 AM EST Office Visit [facility] [address] [place] [address] Yi Thompson MD [address] [place] [address] Scheduled Referrals Name Type Priority Associated Diagnoses [...] AM EDT Narrative 04/12/2025 9:59 AM EDT [address] [address] Magnetic Resonance Report Signed Patient: Sapna Herzog MR#: [id number] : 1960 Acct:[id number] Age/Sex: 64 / F ADM Date: 04/12/25 Loc: HO.MRI Attending Dr: Pratik Estes MD Ordering Physician: Pratik Estes MD Date of Service: 04/12/25 Procedure(s): MR cervical spine wo con Accession Number(s): [id number] cc: Pratik Estes MD; Yi Thompson MD [...] 04/12/25 0956 DD/ 0821 TD/TT: 04/12/25 0837 Manager Of Case Management: Procedure Note Donotuseinterpreter, Image - 04/12/[address] [address] Magnetic Resonance Report Signed Patient: Sapna Herzog CMR#: [id number] : 9Acct:[id number] Age/Sex: 64 / FADM Date: 04/12/25 Loc: HO.MRI Attending Dr: Pratik Estes MD Ordering Physician: Pratik Estes MD Date of Service: 04/12/25 Procedure(s): MR cervical spine wo con Accession Number(s): [id number] cc: Pratik Estes MD; Yi Thompson MD [...] 04/12/25 0956 DD/ 0821 TD/TT: 04/12/25 0837 Manager Of Case Management: [facility] External Provider IMG MRI PROCEDURES Final Result documented in this encounter Visit Diagnoses Diagnosis Hypertension- Primary Unspecified essential hypertension documented in this encounter Additional Health Concerns Assessment Noted Time PHQ-9 Depression Total Score: 1 01/13/20 24 12:16 PM EST documented as of this encounter Care Teams Management Lead Relationship Specialty Start Date End Date Yi Thompson MD [address] [place] [address] PCP - General Internal Medicine 08/20/23 documented as of this encounter
--- OUTSIDE RECORDS SUMMARY | 2025-08-15 12:37 | XMS_ITS | Encounter Summary ---
Author Organization [employer] Address [address] [place] [address] Care Team Providers Care Marketing Support Assistant Name Role Phone Yi Thompson MD Primary Care Pro vider Encounter Details Date Type Department Care Team ([facility] st Contact Info) Description 11/06/2024 Orders Only [facility] 230 [place] [address] Provider, MD Lux Social History Tobacco Use [...] Description 08/16/2025 11:15 AM EDT Office Visit [address] [address] Tere Thompson NP [address] [place] [address] 10/10/2025 9:15 AM EST Office Visit [address] [address] Yi Thompson MD [address] [place] [address] documented as of this encounter Goals Goal [...] documented as of this encounter Care Teams Marketing Support Assistant Relationship Specialty Start Date End Date Yi Thompson MD [address] [place] [address] PCP - General Internal Medicine 08/20/23 documented as of this encounter
--- OUTSIDE RECORDS SUMMARY | 2025-08-15 12:37 | XMS_ITS | Encounter Summary ---
Author Organization [employer] Address [address] [place] [address] Care Team Providers Care Counselor Supervisor Name Role Phone Yi Thompson MD Primary Care Pro vider Encounter Details Date Type Department Care Team (Latest Contact Info) Description 06/26/2025 Results Follow-Up [facility] [address] [place] [address] Yi Thompson MD [address] [place] [address] Culture, Urine, Routine, Comprehensive Metabolic Panel Social [...] Description 08/16/2025 11:15 AM EDT Office Visit [facility] [address] [place] [address] Tere Thompson NP [address] [place] [address] 10/10/2025 9:15 AM EST Office Visit [address] [address] Yi Thompson MD [address] [place] [address] documented as of this encounter Goals Goal [...] documented as of this encounter Care Teams Counselor Supervisor Relationship Specialty Start Date End Date Yi Thompson MD [address] [place] [address] PCP - General Internal Medicine 08/20/23 documented as of this encounter
--- OUTSIDE RECORDS SUMMARY | 2025-08-15 12:37 | XMS_ITS | Encounter Summary ---
Author Organization [employer] Address [address] [place] [address] Care Team Providers Care Enrobing Machine Feeder Name Role Phone Yi Thompson MD Primary Care Pro vider Reason for Visit * Reason Comments Med Change Request Encounter Details Date Type Department Care Team ([facility] st Contact Info) Description 11/08/2023 Refill [facility] [address] [place] [address] [facility] [address] [place] [address] Viral upper respiratory illness Social History Tobacco [...] Description 08/16/2025 11:15 AM EDT Office Visit [facility] [address] [place] [address] Tere Thompson NP 230 [place] [address] 10/10/2025 9:15 AM EST Office Visit [facility] [address] [place] [address] Yi Thompson MD 230 [place] [address] documented as of this encounter Visit Diagnoses Diagnosis Viral upper respiratory illness documented in this encounter Care Teams Enrobing Machine Feeder Relationship Specialty Start Date End Date iY Thompson MD [address] [place] [id number] PCP - General Internal Medicine 08/20/23 documented as of this encounter
--- OUTSIDE RECORDS SUMMARY | 2025-08-15 12:37 | XMS_ITS | Encounter Summary ---
Author Organization [employer] Address [address] [place] [address] Care Team Providers Care Flarer Name Role Phone Yi Thompson MD Primary Care Pro vider Reason for Visit * Reason Comments Med Refill Encounter Details Date Type Department Care Team ([facility] st Contact Info) Description 09/12/[address] [facility] [address] [place] [address] Yi Thompson MD 230 [place] [address] Type 2 diabetes mellitus without complication, without long-term current use of insulin ([facility]) Social History Tobacco Use Types [...] the past 12 months, has t he [employer], gas, oil or water freshbag threatened to shut off services in your [...] 08/16/2025 11:15 AM EDT Office [address] [facility] [address] [place] [address] Tere Thompson NP [address] [place] [address] 10/10/2025 9:15 AM EST Office Visit [facility] [address] [place] [address] Yi Thompson MD [address] [place] [address] documented as of this encounter Goals Goal Patient Goal Type Associated Problems Recent Progress Patient-Stated? Author Blood Pressure < 140/90 Blood Pressure 132/78(2024 1:12 PM EDT) No Jn Shah Hemoglobin A1c < 7 Result Component 7.1( 10:35 AM EDT) No Jn Shah documented as of this encounter Visit Diagnoses Diagnosis Type 2 diabetes mellitus without complication, without long-term current use of insulin (HCC) documented in this encounter Additional Health Concerns Assessment Noted Time PHQ-9 Depression Total Score: 1 01/13/20 24 12:16 PM EST documented as of this encounter Care Teams Flarer Relationship Specialty Start Date End Date Yi Thompson MD [address] [place] [phone] PCP - General Internal Medicine 08/20/23 documented as of this encounter
--- OUTSIDE RECORDS SUMMARY | 2025-08-15 12:37 | XMS_ITS | Encounter Summary ---
Author Organization [employer] Address [address] [facility] [address] [address] Care Team Providers Care Sole Ruffer Name Role Phone Yi Thompson MD Primary Care Pro vider Reason for Visit * Reason Comments Med Refill Encounter Details Date Type Department Care Team ([facility] st Contact Info) Description 09/15/2023 Refill [facility] [address] [place] [address] Juliet Bird, MARY ELLEN Primary hypertension; Type 2 diabetes mellitus without complication, without long-term current use of insulin (CMS/[facility]) Social History Tobacco Use Types Packs/Day Years [...] Description 08/16/2025 11:15 AM EDT Office Visit [facility] [address] [place] [address] Tere Thompson NP [address] [place] [address] 10/10/2025 9:15 AM EST Office Visit [facility] [address] [place] [address] Yi Thompson MD [address] [place] [address] documented as of this encounter Visit Diagnoses Diagnosis Primary hypertension Unspecified essential hypertension Type 2 diabetes mellitus without complication, without long-term current use of insulin (HCC) documented in this encounter Care Teams Sole Ruffer Relationship Specialty Start Date End Date Yi Thompson MD [address] [place] [address] PCP - General Internal Medicine 08/20/23 documented as of this encounter
--- OUTSIDE RECORDS SUMMARY | 2025-08-15 12:37 | XMS_ITS | Encounter Summary ---
Author Organization [employer] Address [address] [place] [address] Care Team Providers Care Die Equipment Operator Name Role Phone Yi Thompson MD Primary Care Pro vider Reason for Visit * Reason Comments Med Refill Encounter Details Date Type Department Care Team ([facility] st Contact Info) Description 05/20/[address] [facility] [address] [place] [address] Name, MD Ronny [address] [place] [address] Social History Tobacco Use Types Packs/Day Years [...] Description 08/16/2025 11:15 AM EDT Office Visit [facility] [address] [place] [address] [phone] Tere Thompson NP [address] [place] [address] 10/10/2025 9:15 AM EST Office Visit [address] [phone] Yi Thompson MD [address] [place] [address] [phone] documented as of this encounter Goals Goal [...] documented as of this encounter Care Teams Die Equipment Operator Relationship Specialty Start Date End Date Yi Thompson MD [address] [place] [phone] PCP - General Internal Medicine 08/20/23 documented as of this encounter
--- OUTSIDE RECORDS SUMMARY | 2025-08-15 12:37 | XMS_ITS | Encounter Summary ---
Author Organization [employer] Address [address] [place] [address] Care Team Providers Care Shaker Tender Name Role Phone Yi Thompson MD Primary Care Pro vider Reason for Visit * Reason Onset Date Comments Nurse Triage 08/15/2025 Encounter Details Date Type Department Care Team ([facility] st Contact Info) Description 08/15/2025 Telephone [facility] 230 [place] [address] Yi Thompson MD [address] [place] [address] Nurse Triage Social History Tobacco Use Types [...] encounter Miscellaneous Notes * Telephone Encounter - Nakia Angeles RN - 08/15/2025 9:52 AM EDT called pt to triage, spoke to pt. Through [employer]. pt states on Thursday, tried to cut an ingrown fingernail. pt states right thumb ingrown nail, thinks she snipped something. pt states mildswelling and redness but nothing acute or severe. pt reports throbbing pain and requesting appt. given appt tomorrow with blue team provider at 11:15 for exam. advised home care: rest, fluids, soak with warm soapy water twice daily, apply antibiotic ointment daily, cover as needed and call back if worsening or new concerns. pt understands and agrees with plan. insurance verified. Protocol Used: Fingernail Infection (Pediatric) Protocol-Based Disposition: See in Office or Video Visit within 3 Days Video visit offer not recorded Positive Triage Question: * Caller wants child seen for non-urgent problem * All higher-acuity triage questions were negative Care Advice Discussed: * Reassurance and Education - Minor Fingernail/Cuticle Infection * Warm Soaks * Antibiotic Ointment * Pain Medicine * Prevention of Fingernail Infections * Reasons To Call Back - Pus pocket appears - Spreading redness occurs - Fever occurs - Not improved by 3 days - Not gone by 7 days - Your child becomes worse * Telephone Encounter - Anuradha Mo[place]uma - 08/15/2025 9:19 AM EDT Symptom: Fingernail Symptoms Outcome: Schedule an urgent appointment (within 1 hour) or talk to a nurse or provider soon Reason: Severe pain now The caller accepted this outcome. Contact pt at [phone] Need post anesthesia nurse documented in this encounter Plan of Treatment Upcoming Encounters Date Type Department Care Team (Late st Contact Info) Description 08/16/2025 11:15 AM EDT Office Visit [address] [address] Tere Thompson NP 230 [place] [address] 10/10/2025 9:15 AM EST Office Visit [address] [address] Yi Thompson MD [address] [place] [address] documented as of this encounter Goals Goal [...] documented as of this encounter Care Teams Shaker Tender Relationship Specialty Start Date End Date Yi Thompson MD [address] [place] [phone] PCP - General Internal Medicine 08/20/23 documented as of this encounter
--- OUTSIDE RECORDS SUMMARY | 2025-08-15 12:37 | XMS_ITS | Encounter Summary ---
Author Organization [employer] Address [address] [place] [address] Care Team Providers Care Delivery Technician Name Role Phone Yi Thompson MD Primary Care Pro vider Reason for Visit * Reason Comments Med Change Request Encounter Details Date Type Department Care Team ([facility] Contact Info) Description 03/15/2024 Refill [facility] [address] [place] [address] Leticia Plunkett, ANP [address] [place] [address] Sinus pressure Social History Tobacco Use Types [...] Description 08/16/2025 11:15 AM EDT Office Visit [facility] [address] [place] [address] Tere Thompson NP [address] [place] [address] 10/10/2025 9:15 AM EST Office Visit [address] [address] Yi Thompson MD [address] [place] [address] documented as of this encounter Goals Goal [...] documented as of this encounter Care Teams Delivery Technician Relationship Specialty Start Date End Date Yi Thompson MD [address] [place] [address] PCP - General Internal Medicine 08/20/23 documented as of this encounter
--- OUTSIDE RECORDS SUMMARY | 2025-08-15 12:38 | XMS_ITS | Clinical Summary ---
Author Organization [facility] Address [address] [place] [address] [facility] [place] [address] Care Team Providers Care Slasher Hand Name Role Phone Yi Thompson MD Primary Care Pro vider Allergies Active Allergy Reactions Criticality Noted Date Comments Penicillins Hives High 12/28/2013 Other reaction(s): SWELLING , Unknown Other reaction(s): swelling pt received dose of cefazolin pre-op 07/04. Per CAT Britton, pt tolerated without issue Medications Spacer/Aero-Ho lding Chambers (OptiChamber Delisa) misc 1 each every [...] 1 02/22/20 25 Active Januvia 100 MG tabletIndicati ons:Type 2 diabetes mellitus without complication, without long-term current use of insulin (HCC) TAKE 1 TABLET BY MOUTH EVERY MORNING 90 tablet 1 04/06/20 25 Active Lancets 33G miscIndication s:Type 2 diabetes mellitus without complication, without long-term current use of insulin (HCC) USE TO TEST BLOOD SUGAR TWICE A DAY 100 each 04/06/20 25 Active Breo Ellipta 200-25 MCG/ACT aerosol powder 04/06/20 Active amitriptyline (Elavil) 10 MG tablet Take [...] Once per day. twice weekly 45 g 04/26/20 25 Active albuterol 108 (90 Base) MCG/ACT inhalerIndicat ions:Wheezing Inhale 2 puffs every 6 (six) hours if needed for wheezing. 18 g 2 04/26/20 25 Active Alcohol Swabs pads 1 Swab at noon and 1 Swab in the evening. Use to test blood sugar twice daily. 100 each 04/26/20 25 Active lidocaine-pril ocaine (Emla) 2.5-2.5 % cream Apply topically if needed each day for mild pain. 5 g 04/26/20 25 Active losartan-hydro CHLOROthiazide (Hyzaar) 100-12.5 MG tablet Take 1 tablet by mouth Once per day. TAKE 1 TABLET BY MOUTH EVERYDAY AT NOON 90 tablet 1 04/26/20 25 Active D3 Super Strength 50 [...] each 06/09/20 25 026 Active metFORMIN XR (Glucophage-XR ) 500 MG 24 hr tabletIndicati ons:Type 2 diabetes mellitus without complication, without long-term current use of insulin (HCC) TAKE 1 TABLET BY MOUTH TWICE DAILY AT NOON AND IN THE EVENING WITH MEALS DO NOT BREAK, CRUSH, DISSOLVE OR CHEW 180 tablet 2 06/29/20 25 Active pantoprazole (ProtoNix) 40 MG EC tablet TAKE 1 TABLET BY MOUTH EVERY MORNING 30 tablet 2 06/29/20 25 Active montelukast (Singulair) 10 MG tablet TAKE 1 TABLET BY MOUTH EVERYDAY AT NOON 30 tablet 2 07/24/20 25 Active montelukast (Singulair) 10 MG tablet Take 1 tablet (10 mg) by mouth at bedtime. TAKE 1 TABLET BY MOUTH EVERYDAY AT NOON 30 tablet 2 04/26/20 25 025 Discontinued Active Problems Problem Noted Date Diagnosed Date Chronic right-sided low back pain with right-lenin ed sciatica 10/28/2024 Assessment & Plan (10/28/2024 9:46 AM EST): Will send for 300 mg gabapentin at bedtime as patient didn't have med on hand. Educated pt about anticipated side effects of medication including drowsiness. Consideration for PT once patient returns from [facility] in January. Chest pain at [...] 09/17/2023 Forgetfulness 04/15/2023 Overview (08/20/2023): Seen at [facility] on 07/15/2020 for right sided facial [...] for vascular referral once patient returns from [facility] in January. Irritable bowel syndrome with constipation 09/17 Papillary thyroid carcinoma (CMS/HCC) 07/24/2015 Overview (04/15/2023): Excision 07/04/2015 of right [...] improve. 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 04/09/2023 04/15/2023 Thyroid cancer ([facility]) 01/04/2019 Multiple joint pain 09/03/2018 04/15/20 Calcaneal spur 08/05/2018 09/17/2023 Gastroesophageal reflux disease 05/01/2014 04/15/2023 Encounters Date Type Department Care Team Description 08/15/2025 Telephone [facility] [address] [place] [phone] Yi Thompson MD Nurse Triage 07/25/2025 Orders Only GENERIC EXTERNAL DATA DEPARTMENT Provider, Generic External Data 07/23/2025 Refill [facility] [address] [place] [address] Yi Thompson MD 07/21/2025 Orders Only [facility] External Provider, [facility] 07/20/[address] [address] Yi Thompson MD Call Back Request 07/03/2025 Results Follow-Up [address] [address] Letiica Plunkett, ANP CBC auto differential 06/28/[address] [address] Yi Thompson MD oct recall 06/28/[address] [address] Yi Thompson MD Imaging Orders 06/28/2025 Refill [facility] [address] [place] [address] Yi Thompson MD Type 2 diabetes mellitus without complication, without long-term current use of insulin ([facility]) 06/26/2025 Results Follow-Up [address] [address] Yi Thompson MD Culture, Urine, Routine, Comprehensive Metabolic Panel 06/23/2025 1:15 PM EDT Office Visit [address] [address] Cathleen Lomax CNP Flank pain (Primary Dx); Right lower quadrant pain; Urinary tract infection without hematuria, site unspecified 06/23/2025 Travel 06/22/[address] [address] Wanda Mtz [place] CHARTPREP 06/22/[address] [address] Yi Thompson MD Nurse Triage 06/09/2025 11:15 AM EDT Office Visit [address] [address] Yi Thompson MD Left arm pain (Primary Dx); Complex regional pain syndrome type 1 of both upper extremities; Hypertension, unspecified type; Type 2 diabetes mellitus without complication, without long-term current use of insulin (CMS/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) 06/09/2025 Telephone [facility] [address] [place] [address] Skylar Larsen, [employer] 06/09/2025 Travel 06/08/[address] [address] Yi Thompson MD chartprep 06/02/2025 Orders Only [address] [address] Yi Thompson MD Type 2 diabetes mellitus without complication, without long-term current use of insulin (CMS/HCC) 06/02/2025 Orders Only GENERIC EXTERNAL DATA DEPARTMENT Provider, Generic External Data 05/31/2025 Results Follow-Up [address] [address] Yi Thompson MD Client Education Tracking, Fecal Globin By Immunochemistry 05/26/2025 11:00 AM EDT Telemedicine [address] [address] Remedios Do PharmD Hypertension, unspecified type (Primary Dx) 05/26/2025 Orders Only [address] [address] Yi Thompson MD 05/26/2025 Orders Only [facility] [address] [place] [address] Yi Thompson MD 05/26/2025 Results Follow-Up [facility] [address] [facility] [address] Yi Thompson MD CBC auto differential, Reticulocyte Count, Hemoglobin A1c, Additional followed-up results: 6 05/26/2025 Orders Only [facility] [address] [place] [address] Yi Thompson MD from Last 3 Months Immunizations Immunization Administration [...] Weight 69.3 kg (152 lb 12.8 oz) 025 1:12 PM EDT Height 165.1 cm (5' 5 ) 06/09/2025 11:2 5 AM EDT Body Mass Index 25.43 06/09/2025 11:25 AM EDT Plan of Treatment Upcoming Encounters Date Type Department Care Team (Late st Contact Info) Description 08/16/2025 11:15 AM EDT Office Visit [facility] [address] [place] [phone] Tere Thompson NP [address] [place] [address] 10/10/2025 9:15 AM EST Office Visit [facility] [address] [place] [phone] Yi Thompson MD [address] [place], [place] [phone] Health Maintenance Due Date Last Done Comments [...] Name Priority Date/Time Associated Diagnosis Comments CT ABDOMEN PELVIS WO CONTRAST Routine 08/02/2025 3:47 PM EDT Right lower quadrant pain CULTURE, URINE, ROUTINE Routine 07/25/20 9:13 AM EDT GLUCOSE, WHOLE BLOOD Routine 07/25/2025 7:11 AM EDT US PELVIS TRANSVAGINAL Routine 2:48 PM EDT MR BRAIN WO CONTRAST Routine 07/07/2025 4:44 [...] EDUCATION TRACKING Routine 05/26/2025 12:00 AM EDT BI US BREAST LIMITED LEFT [...] Relevant to Health Maintenance Results * CT Abdomen Pelvis w/o Contrast (08/02/2025 3:47 PM EDT) Anatomical Region Laterality Modality Body, Pelvis, Abdomen Computed T omography 08/02/2025 3:47 PM EDT Narrative 08/02/2025 4:27 PM EDT [place] [address] [address] Scan Report Signed Patient: Sapna Herzog MR#: [id number] : 1960 Acct:[id number] Age/Sex: 64 / F ADM Date: 08/02/25 Loc: HO.CT Attending Dr: Cathleen Lomax BATCH UNIT TREATER Ordering Physician: Cathleen Lomax NP Date of Service: 08/02/25 Procedure(s): CT abdomen pelvis wo IV con Accession Number(s): [id number] cc: Yi Thompson MD; Cathleen Lomax BATCH UNIT TREATER Report Number: [id number]: Total DLP = 385.00 mGy-cm Reason for Exam: consistent pain in RLQ x 3 weeks EXAMINATION: CT ABDOMEN AND PELVIS WITHOUT CONTRAST CLINICAL INFORMATION: Right lower quadrant pain for 3 weeks COMPARISON: March 09, 2024 TECHNIQUE: Multidetector volumetric imaging was performed from the superior aspect of the liver through the pubic symphysis. Sagittal and coronal reformatted images were obtained on the technologist's workstation. This CT examination was performed using dose optimization techniques as appropriate, variously including the following: *Automated exposure control *Adjustment of mA and/or kV according to patient size (this includes techniques or standardized protocols for targeted exams where dose is matched to indication/reason for exam; i.e. extremities or head) *Use of iterative reconstruction technique DLP: 385 mGy*cm FINDINGS: LUNG BASES: Again seen is a small centrally calcified pulmonary nodule in the posterior right lower lobe consistent with a granuloma. LIVER, GALLBLADDER, AND BILIARY TREE: Diffuse low attenuation is noted throughout the liver. The gallbladder is unremarkable with no evidence of radiopaque gallstones, gallbladder wall thickening, or obvious pericholecystic inflammatory changes. PANCREAS: Unremarkable. SPLEEN: Unremarkable. ADRENAL GLANDS: Unremarkable. KIDNEYS AND URETERS: The kidneys are normal in size, shape, and attenuation. No hydronephrosis, hydroureter, or calculi seen. No perinephric stranding. BLADDER: Unremarkable. GASTROINTESTINAL TRACT: There are a few scattered pseudodiverticula in the colon without inflammation of the fat or wall thickening. The appendix is unremarkable in its appearance. ABDOMINAL WALL: There are clips and thickening of the fascia along the midline just inferior to the umbilicus possibly related to prior ventral hernia repair. LYMPH NODES: Normal. VASCULAR: Multifocal calcifications are present in the aorta and iliac arteries. PELVIC VISCERA: The uterus is surgically absent. Left ovary is unremarkable. Right ovary is well-seen probably but no right adnexal abnormality is evident at the termination of the right ovarian vein. OSSEOUS STRUCTURES: L5-S1 demonstrates mild disc space narrowing with vacuum phenomenon and circumferential bulging disc CT/CT abdomen pelvis wo IV con IMPRESSION: Hepatic steatosis. Diverticulosis without evidence of infection. Normal-appearing appendix. Stable calcific granuloma in the posterior segment right lower lobe. Moderate degenerative disc disease at L5-S1 stable. Hysterectomy. No right adnexal abnormality. Fleischner guidelines were followed. Electronically signed by: Augusto Alvarez MD 08/02/2025 04:24 PM EDT Dictated By: Augusto Alvarez MD Signed By: <Electronically signed by Augusto Alvarez MD in OV> 08/02/25 1624 DD/ 1547 TD/TT: 08/02/25 1607 Pharmacy Analyst: Procedure Note Donotuseinterpreter, Image - 08/02/[address] [address] [address] Scan Report Signed Patient: Sapna Herzog CMR#: M [id number] : 9Acct:[id number] Age/Sex: 64 / FADM Date: 08/02/25 Loc: HO.CT Attending Dr: Cathleen Lomax BATCH UNIT TREATER Ordering Physician: Cathleen Lomax NP Date of Service: 08/02/25 Procedure(s): CT abdomen pelvis wo IV con Accession Number(s): [id number] cc: Yi Thompson MD; Cathleen Lomax NP Report Number: [id number]: Total DLP = 385.00 mGy-cm Reason for Exam: consistent pain in RLQ x 3 weeks EXAMINATION: CT ABDOMEN AND PELVIS WITHOUT CONTRAST CLINICAL INFORMATION: Right lower quadrant pain for 3 weeks COMPARISON: March 09, 2024 TECHNIQUE: Multidetector volumetric imaging was performed from the superior aspect of the liver through the pubic symphysis. Sagittal and coronal reformatted images were obtained on the technologist's workstation. This CT examination was performed using dose optimization techniques as appropriate, variously including the following: *Automated exposure control *Adjustment of mA and/or kV according to patient size (this includes techniques or standardized protocols for targeted exams where dose is matched to indication/reason for exam; i.e. extremities or head) *Use of iterative reconstruction technique DLP: 385 mGy*cm FINDINGS: LUNG BASES: Again seen is a small centrally calcified pulmonary nodule in the posterior right lower lobe consistent with a granuloma. LIVER, GALLBLADDER, AND BILIARY TREE: Diffuse low attenuation is noted throughout the liver. The gallbladder is unremarkable with no evidence of radiopaque gallstones, gallbladder wall thickening, or obvious pericholecystic inflammatory changes. PANCREAS: Unremarkable. SPLEEN: Unremarkable. ADRENAL GLANDS: Unremarkable. KIDNEYS AND URETERS: The kidneys are normal in size, shape, and attenuation. No hydronephrosis, hydroureter, or calculi seen. No perinephric stranding. BLADDER: Unremarkable. GASTROINTESTINAL TRACT: There are a few scattered pseudodiverticula in the colon without inflammation of the fat or wall thickening. The appendix is unremarkable in its appearance. ABDOMINAL WALL: There are clips and thickening of the fascia along the midline just inferior to the umbilicus possibly related to prior ventral hernia repair. LYMPH NODES: Normal. VASCULAR: Multifocal calcifications are present in the aorta and iliac arteries. PELVIC VISCERA: The uterus is surgically absent. Left ovary is unremarkable. Right ovary is well-seen probably but no right adnexal abnormality is evident at the termination of the right ovarian vein. OSSEOUS STRUCTURES: L5-S1 demonstrates mild disc space narrowing with vacuum phenomenon and circumferential bulging disc CT/CT abdomen pelvis wo IV con IMPRESSION: Hepatic steatosis. Diverticulosis without evidence of infection. Normal-appearing appendix. Stable calcific granuloma in the posterior segment right lower lobe. Moderate degenerative disc disease at L5-S1 stable. Hysterectomy. No right adnexal abnormality. Fleischner guidelines were followed. Electronically signed by: Augusto Alvarez MD 08/02/2025 04:24 PM EDT Dictated By: Augusto Alvarez MD Signed By: <Electronically signed by Augusto Alvarez MD in OV> 08/02/25 1624 DD/ 1547 TD/TT: 08/02/25 1607 Pharmacy Analyst: [facility] CT PROCEDURES Edited Result - Final * Culture, Urine, Routine (07/25/2025 9:13 AM EDT) Only the most recent of2 resultswithin the time period is included. Urine Urine specimen from urinary conduit / Unknown 07/25/2025 9:13 AM EDT 07/25/2025 9:19 AM EDT Comment:Urine Cath Narrative [facility] - 07/27/2025 8:31 AM EDT Urine Culture No growth. Specimen Source: Urine Catheterized us Generic External Data Provider LAB MICROBIOLOGY - GENERAL ORDERABLES Final Result Performing Organization Address [facility] de Phone Number [facility] [address] [place] [phone] * (ABNORMAL) Glucose, Whole Blood (07/25/2025 7:11 AM EDT) Only the most recent of2 resultswithin the time period is included. Glucose, Whole Blood 172(H) 60 - 115 mg/dL [facility] Comment:METER #: [id number] 07/25/2025 7:11 AM EDT 07/25/2025 7:15 AM EDT us Generic External Data Provider LAB BLOOD ORDERAB LES Final Result Performing Organization Address [facility] de Phone Number [facility] [address] [place] [phone] * US Pelvis Transvaginal (07/21/2025 2:48 PM EDT) Anatomical Region Laterality Modality Pelvis Ultrasound 07/21/2025 2:48 PM EDT Narrative 07/21/2025 2:49 PM EDT [address] [address] Ultrasound Report Signed Patient: Sapna Herzog MR#: M [id number] : 1960 Acct:[id number] Age/Sex: 64 / F ADM Date: 07/21/25 Loc: .US Attending Dr: Domenic Chew MD Ordering Physician: Domenic Chew MD Date of Service: 07/21/25 Procedure(s): US pelvic and transvaginal Accession Number(s): [id number] cc: Yi Thompson MD; Domenic Chew MD Reason for Exam: R35.0 - Frequency of micturition CLINICAL HISTORY: R35.0 - Frequency of micturition Ultrasound of the female pelvis Comparison: None provided Technique: Grayscale ultrasound with assistance of color Doppler. Transabdominal scanning performed for overall anatomy. Transvaginal scanning performed for better anatomic delineation. Findings: Status post hysterectomy, unremarkable vaginal cuff. Ovaries are not seen, no adnexal mass, per patient, she had left oophorectomy. Urinary bladder is partially included, the visualized portion is normal. No free fluid. Impression: No acute finding. This document has been electronically signed by: Tereza Allen MD on 07/21/2025 14:48:09 Dictated By: Tereza Allen MD Signed By: <Electronically signed by Tereza Allen MD in OV> 07/21/251447 DD/ 47 TD/TT: 07/21/251447 Pharmacy Analyst: Procedure Note Donotuseinterpreter, Image - 07/21/2025 [place] [address] Ultrasound Report Signed Patient: Sapna Herzog CMR#: M [id number] : 9Acct:[id number] Age/Sex: 64 / FADM Date: 07/21/25 Loc: HO.US Attending Dr: Domenic Chew MD Ordering Physician: Domenic Chew MD Date of Service: 07/21/25 Procedure(s): US pelvic and transvaginal Accession Number(s): [id number] cc: Yi Thompson MD; Domenic Chew MD Reason for Exam: R35.0 - Frequency of micturition CLINICAL HISTORY: R35.0 - Frequency of micturition Ultrasound of the female pelvis Comparison: None provided Technique: Grayscale ultrasound with assistance of color Doppler. Transabdominal scanning performed for overall anatomy. Transvaginal scanning performed for better anatomic delineation. Findings: Status post hysterectomy, unremarkable vaginal cuff. Ovaries are not seen, no adnexal mass, per patient, she had left oophorectomy. Urinary bladder is partially included, the visualized portion is normal. No free fluid. Impression: No acute finding. This document has been electronically signed by: Tereza Allen MD on 07/21/2025 14:48:09 Dictated By: Tereza Allen MD Signed By: <Electronically signed by Tereza Allen MD in OV> 07/21/251447 DD/ 47 TD/TT: 07/21/251447 Pharmacy Analyst: us [facility] External Provider IMG US PROCEDURES Final Result * MR Brain w/o Contrast (07/07/2025 4:44 PM EDT) Anatomical Region Laterality Modality Brain Magnetic Resonan ce 07/07/2025 4:44 PM EDT Narrative 07/07/2025 6:03 PM EDT [address] [address] Magnetic Resonance Report Signed Patient: Sapna Herzog MR#: M [id number] : 1960 Acct:[id number] Age/Sex: 64 / F ADM Date: 07/07/25 Loc: HO.MRI Attending Dr: Yi Cleary MD Ordering Physician: Yi Thompson MD Date of Service: 07/07/25 Procedure(s): MR head/brain wo con Accession Number(s): [id number] cc: Yi Thompson MD EXAMINATION: MR BRAIN [...] 07/07/25 1800 DD/ 1644 TD/TT: 07/07/25 1701 Pharmacy Analyst: Procedure Note Donotuseinterpreter, Image - 07/07/2025 [place] [address] Magnetic Resonance Report Signed Patient: Sapna Herzog CMR#: M [id number] : 9Acct:[id number] Age/Sex: 64 / FADM Date: 07/07/25 Loc: HO.MRI Attending Dr: Yi Cleary MD Ordering Physician: Yi Thompson MD Date of Service: 07/07/25 Procedure(s): MR head/brain wo con Accession Number(s): [id number] cc: Yi Thompson MD EXAMINATION: MR BRAIN [...] Licha Wynn MD 07/07/2025 06:00 PM EDT Dictated By: Licha Wynn MD Signed By: <Electronically signed by Licha Wynn MD in OV> 07/07/25 1800 DD/ 1644 TD/TT: 07/07/25 1701 Pharmacy [facility]st: [facility] MD IMG MRI PROCEDURE S Final Result * (ABNORMAL) CBC auto differential (06/23/2025 1:42 PM EDT) Only the most recent of2 resultswithin the time period is included. White Blood Count 6.8 4.8 - 10.8 X10*3/uL [facility] Red Blood Count 4.67 4.20 - 5.50 X10*6/uL [facility] Hemoglobin 11.1(L) 12.0 - 16.0 g/dl [facility] Hematocrit 35.0(L) 37.0 - 47.0 % [facility] Mean Corpuscular Volume 74.9(L) 80.0 - 98.0 fL [facility] Mean Corpuscular Hemoglobin 23.8(L) 27.0 - 33.0 pg [facility] Mean Corpuscular HGB Conc 31.7 31.0 - 35.0 g/dl [facility] Red Cell Distribution Width 15.7 11.0 - 16.0 % [facility] Platelet Count 285 160 - 400 X10*3/uL [facility] Mean Platelet Volume 10.6 9.4 - 12.3 fL [facility] Neutrophils Percent Auto 60.2 45 - 73 % [facility] Imm Gran Pct Auto 0.4 0.0 - 0.4 % [facility] Lymphocytes Percent Auto 26.0 20 - 40 % [facility] Monocytes Percent Auto 10.3 2 - 11 % [facility] Eosinophils Percent Auto 1.9 0 - 4 % [facility] Basophils Percent Auto 1.2 0 - 2 % [facility] NRBC Pct Auto 0.0 0.0 - 0.2 /100WBC [facility] Neutrophils Absolute Auto 4.1 2.0 - 8.3 x10*3/uL [facility] Imm Gran Abs Auto 0.03 0.00 - 0.03 X10*3/uL [facility] Lymphocytes Absolute Auto 1.8 1.2 - 4.9 X10*3/uL [facility] Monocytes Absolute Auto 0.7 0.1 - 1.2 X10*3/uL [facility] Eosinophils Absolute Auto 0.1 0.0 - 0.4 X10*3/uL [facility] Basophils Absolute Auto 0.1 0.0 - 0.2 X10*3/uL [facility] NRBC Abs Auto 0.000 0.0 - 0.012 X10*3/uL [facility] Blood Venous blood specimen / Unknown 06/23/2025 1:42 PM EDT 06/23/2025 4:12 PM EDT Leticia Plunkett [facility] LAB BLOOD ORDERABLES Final Resul t [facility] [address] [place] [address] [phone] * Comprehensive Metabolic Panel (06/23/2025 1:42 PM EDT) Only the most recent of2 resultswithin the time period is included. Sodium 140 135 - 145 mmol/L [facility] Potassium 3.9 3.3 - 5.1 mmol/L [facility] Chloride 104 96 - 108 mmol/L [facility] Carbon Dioxide 26 22 - 29 mmol/L [facility] Anion Gap 14 12 - 20 [facility] Urea Nitrogen (BUN) 16 9 - 16 mg/dL [facility] Creatinine, Serum 0.77 0.5 - 1.4 mg/dL [facility] Estimated Glomerular Filt Rate >60 [facility] Comment:Chronic Kidney Disea se: Estimated GFR < 60 mL/min/[id number] Kidney Disease: Estimated GFR < 15 mL/min/1.73m2 Glucose 101 60 - 115 mg/dL [facility] Calcium 9.1 8.4 - 10.2 mg/dL [facility] Bilirubin, Total 0.2 0.0 - 1.0 mg/dL [facility] Aspartate Amino Transferase 30 5 - 31 U/L [facility] Alanine Aminotransferase 28 0 - 31 U/L [facility] Total Protein 7.7 6.5 - 8.0 g/dL [facility] Albumin Level 4.6 3.5 - 5.0 g/dL [facility] Alkaline Phosphatase 85 39 - 117 U/L [facility] Blood Venous blood specimen / Unknown 06/23/2025 1:42 PM EDT 06/23/2025 4:12 PM EDT [facility] LAB BLOOD ORDERABLES Cammy l Result [facility] [address] [place] [address] [phone] * (ABNORMAL) POCT Urinalysis (06/23/2025 1:18 [...] Expiration Date Urine 06/23/2025 1:18 PM EDT [facility] POINT OF CARE TEST ENTER/ EDIT ORDERABLES Final Result * FL Guidance in [place] (06/02/2025 10:25 AM EDT) Anatomical Region Laterality Modality X-Ray Angiograph y 06/02/2025 10:2 5 AM EDT Narrative 06/02/2025 11:06 AM EDT [address] [address] Fluoroscopy Report Signed Patient: Sapna Herzog MR#: M [id number] : 1960 Acct:[id number] Age/Sex: 64 / F ADM Date: 06/02/25 Loc: HO.[employer] Attending Dr: Jcarlos Gee MD Ordering Physician: Jcarlos Gee MD Date of Service: 06/02/25 Procedure(s): FL guidance in OR Accession Number(s): [id number] cc: Jcarlos Gee MD; Yi Thompson MD [...] 06/02/25 1103 DD/ 1025 TD/TT: 06/02/25 1043 Pharmacy Analyst: Procedure Note Donotuseinterpreter, Image - 06/02/[address] [address] Fluoroscopy Report Signed Patient: Sapna Herzog CMR#: M [id number] : 1960cct:[id number] Age/Sex: 64 / FADM Date: 06/02/25 Loc: HO.SSS Attending Dr: Jcarlos Gee MD Ordering Physician: Jcarlos Gee MD Date of Service: 06/02/25 Procedure(s): FL guidance in OR Accession Number(s): [id number] cc: Jcarlos Gee MD; Yi Thompson MD [...] 06/02/25 1103 DD/ 1025 TD/TT: 06/02/25 1043 Pharmacy Analyst: [facility] External Provider IMG IR PROCEDURES Final Result * Albumin, Random Urine W/Creatinine (05/26/2025 10:35 AM EDT) Creatinine, Urine 84.43 mg/dL [facility] Microalbumin Urine <5.0 mg/L [facility] Microalbum Creatinine Ratio Ur TNP <30 ug/mg cr [facility] Comment:Unable to calculate albumin/creatinine ratio due to lowmicroalbumin or creatinine result. 05/26/2025 10:3 5 AM EDT 05/26/2025 11:11 AM EDT Yi Cleary MD LAB URINE ORDERAB LES Final Result [facility] [address] [place] [address] [place] [phone] * (ABNORMAL) Iron And Total Iron Binding Capacity (05/26/2025 10:35 AM EDT) Iron 49 30 - 160 mcg/dL [facility] Total Iron Binding Capacity 356 228 - 428 mcg/dL [facility] Percent Iron Saturation 14(L) 15 - 50 % [facility] Unsaturated Iron Binding 307 ug/dL [facility] 05/26/2025 10:3 5 AM EDT 05/26/2025 11:17 AM EDT us Yi Cleary MD LAB BLOOD ORDERAB LES Final Result Performing Organization Address [facility] Co de Phone Number [facility] [address] [place] [phone] * (ABNORMAL) Reticulocyte Count (05/26/2025 10:35 AM EDT) [facility] Reticulocytes Absolute 0.056 0.026 - 0.095 X10*6/uL [facility] Immature Retic Fraction 15.2 3.0 - 15.9 % [facility] Retic HGB Equivalent 26.9(L) 30.0 - 35.0 pg [facility] Reticulocyte Percent 1.2 0.5 - 1.8 % [facility] 05/26/2025 10:3 5 AM EDT 05/26/2025 11:19 AM EDT us Yi Cleary MD LAB BLOOD ORDERAB LES Final Result Performing Organization Address [facility]/ZIP Co de Phone Number [facility] [address] [place] [phone] * (ABNORMAL) Hemoglobin A1c (05/26/2025 10:35 AM EDT) Pathologist [facility] Hemoglobin A1c 7.1(H) <6.0 % [facility] Comment:Hemoglobin A1C Refer ence Range Adults: 4.8 - 6.0 % Non diabetic: < 6.0 % Goal: < 7.0 %Additional Action Suggested: > 8.0 %Note: Hemoglobin A1c results are invalid for patients with abnormal amounts of HbF. Blood transfusions may impact the HbA1c concentration in the patient sample. Estimated Average Glucose 157 mg/dL [facility] Comment:eAG = Estimated ave rage glucose which is %A1C expressed asaverage glucose, using the formula of the C6O-TcmjddmJrsismf Glucose study (ADAG), Diabetes Care, Vol.31,#8,Jun. 2007 05/26/2025 10:3 5 AM EDT 05/26/2025 11:19 AM EDT Yi Cleary MD LAB BLOOD ORDERAB LES Final Result Performing Organization Address [facility] Co de Phone Number [facility] [address] [place] [phone] * (ABNORMAL) Ferritin (05/26/2025 10:35 AM EDT) Ferritin 9(L) 10 - 250 ng/mL [facility] 05/26/2025 10:3 5 AM EDT 05/26/2025 11:17 AM EDT Yi Cleary MD LAB BLOOD ORDERAB LES Final Result Performing Organization Address City/[facility]/ZIP Co de Phone Number [facility] [address] [place] [phone] * Vitamin B12 (05/26/2025 10:35 AM EDT) Vitamin B12 476 200 - 900 pg/mL [facility] Comment:NORMAL 200-900 PG/ML INDETERMINATE 160-199 PG/ML DEFICIENT < 160 PG/ML 05/26/2025 10:3 5 AM EDT 05/26/2025 11:17 AM EDT Yi Cleary MD LAB BLOOD ORDERAB LES Final Result Performing Organization Address City/[facility]/ZIP Co de Phone Number [facility] [address] [place] [phone] * (ABNORMAL) Lipid Panel, Standard (05/26/2025 10:35 AM EDT) Triglycerides 221(H) <150 mg/dL [facility] Comment:Desirable Triglyceri de: less than 150 mg/dLBorderline High Triglyceride 150-199 mg/dLHigh Triglyceride: 200-499 mg/dLVery High Triglyceride: greater than or equal to 5OO mg/dL Cholesterol 243(H) <200 mg/dL [facility] Comment:Desirable Cholestero l: less than 200 mg/dLBorderline High Cholesterol: 200-239 mg/dLHigh Cholesterol: greater than 239 mg/dL LDL Cholesterol Calculated 157(H) <100 mg/dL [facility] Comment:Desirable LDL: less than 100 mg/dLNear Optimal/Above Optimal LDL: 110- 129 mg/dLBorderline High LDL: 130-159 mg/dLHigh LDL: 160-189 mg/dLVery High LDL: greater than or equal to 190 mg/dL HDL Cholesterol 42 >40 mg/dL [facility] Comment:Desirable HDL: great er than 40 mg/dL Note: This HDL assay may give artificially low results in patients with liver disease. 05/26/2025 10:3 5 AM EDT 05/26/2025 11:17 AM EDT us Yi Cleary MD LAB BLOOD ORDERAB LES Final Result [facility] [address] [place] [phone] * Client Education Tracking (05/26/2025 12:00 AM EDT) Client Education Tracking [facility] Comment: The Requisition we received did not include a [employer] account number. To prevent delays in testing [...] UNKNOWN Yi Cleary MD LAB BLOOD BANK ST ORDERABLES Final Result Performing Organization Address [facility]/ZIP Co de Phone Number [address], [place] [phone] [employer] [place] [employer] [address] [place] [phone] * Fecal Globin By Immunochemistry (05/26/2025 12:00 AM EDT) Fecal Globin By Immunochemistry SEE NOTE [employer] [place] [employer] Comment: FECAL GLOBIN BY IMMUNOCHEMISTRY Micro Number: [id number] Test Status: Final Specimen Source: Insure () fobt test card Specimen Quality: Adequate Fecal [...] EDT FASTING: UNKNOWN Yi Cleary MD LAB BODY FLUIDS A ND STOOLS ORDERABLES Final Result Performing Organization Address [facility] Co de Phone Number [address], [place] [phone] [employer] [place] [employer] [address] [place] [phone] * BI US Breast Limited Left (02/07/2025 10:44 AM EDT) Anatomical Region Laterality Modality Breast Left Ultrasound 02/07/2025 10:4 4 AM EDT Narrative 02/07/2025 11:07 AM EDT [place] [facility] [address] [place] [address] Ultrasound Report Signed Patient: Sapna Herzog MR#: [id number] : 1960 Acct:[id number] Age/Sex: 64 / F ADM Date: 02/07/25 Loc: HO.MAMMO Attending Dr: Peter Tate CNM Ordering Physician: PETER TATE CNM Date of Service: 02/07/25 Procedure(s): US breast LT limited mamm only Accession Number(s): [id number] cc: Yi Thompson MD; PETER TATE CNM [...] DO 02/07/2025 11:04 AM EDT Dictated By: Tyminski,Maria DO Signed By: <Electronically signed by Maria Bunch DO in OV> 02/07/25 1104 DD/ 1044 TD/TT: 02/07/25 1058 Pharmacy Analyst: Procedure Note Donotuseinterpreter, Image - 02/07/[facility] [address] [place] [address] Ultrasound Report Signed Patient: Sapna Herzog CMR#: M [id number] : 1960cct:[id number] Age/Sex: 64 / FADM Date: 02/07/25 Loc: HO.MAMMO Attending Dr: Peter Tate CNM Ordering Physician: PETER TATE CNM Date of Service: 02/07/25 Procedure(s): US breast LT limited mamm only Accession Number(s): [id number] cc: Yi Thompson MD; PETER TATE CNM [...] 02/07/25 1104 DD/ 1044 TD/TT: 02/07/25 1058 Pharmacy Analyst: us Peter Tate CNM IMG US PROCEDURES Edited Result - Final * Hm Colonoscopy (11/03/2024 6:36 PM EST) Historical Provider HEALTH MAINTENANCE Final Result * Hepatitis C Antibody with Reflex to HCV, RNA, Quantitative, Real-Time PCR (01/12/2024 8:56 AM EST) Hepatitis C Antibody Nonreactive Nonreactive [facility] Comment:Antibodies to HCV no t detected; does not exclude early acuteHCV infection. Blood Venous blood specimen / Unknown 01/12/2024 8:56 AM EST 01/12/2024 11:12 AM EST Yi Cleary MD LAB BLOOD ORDERAB LES Final Result [facility] [address] [place] [phone] * THINPREP PAP (10/25/2020 10:02 AM EST) Clinical Information: None given [facility] COMMENT SEE COMMENT FOUNDATI [...] along with historic and current clinical information. Cleaning Attendant : SEE COMMENT [facility] Comment: QUINCY, CT(ASCP) CT screening location: [place] [address] Interpretation/R esult: Negative for intraepithelial lesion or malignancy. [facility] LMP: NONE GIVEN [facility] Prev. BX: NONE GIVEN [facility] Prev. PAP: NONE GIVEN [facility] ON [facility] SOURCE: None given [facility] Statement Of Adequacy: SEE COMMENT [facility] Comment: Satisfactory for evaluation. Endocervical/transformation zone component present. 10/25/2020 10:0 2 AM EST [facility] PATHOLOGY ORDERABLES Final Result Performing Organization Address [facility] de Phone Number [facility] [address] * HPV mRNA E6/E7 (10/25/2020 10:02 AM EST) HPV nRNA E6/E7 Not Detected Not Detected [facility] Comment: This test was performed using the APTIMA HPV Assay ([employer] This assay detects E6/E7 viral messenger RNA (mRNA) from 14 high-risk HPV types (16,18,31,33,35,39,45,51,52,56,58,59,66,68). The analytical performance characteristics of this assay have been determined by [employer]. The modifications have not been cleared or approved by the FDA. This assay has been validated pursuant to the CLIA regulations and is used for clinical purposes. 10/25/2020 10:0 2 AM EST Peter Tate [facility] LAB BLOOD ORDERABLES Cammy l Result Performing Organization Address [facility] de Phone Number [facility] [address] from Last 3 Months or Most Recently Relevant to Health Maintenance Insurance [employer] Care Teams Slasher Hand Relationship Specialty Start Date End Date Yi Thompson MD [address] [place] [phone] PCP - General Internal Medicine 08/20/23
--- OUTSIDE RECORDS SUMMARY | 2025-08-15 12:38 | XMS_ITS | Encounter Summary ---
Author Organization [employer] Address [address] [place] [address] Care Team Providers Care Measuring Clerk Name Role Phone Juliet Bird Primary Care Provider Yi Jessica MD Primary Care Pro vider Reason for Visit * Reason Onset Date Comments triage 02/27/2023 Encounter Details Date Type Department Care Team (Late st Contact Info) Description 02/27/2023 Telephone [facility] [address] [place] [address] Juliet Bird FNP triage Social History Tobacco [...] 02/27/2023 4:58 PM EDT Triage call with [employer] [place] [id number] Pt reports a couple of days of [...] now The caller accepted this outcome speaks marshallese documented in this encounter Plan of Treatment Upcoming Encounters Date Type Department Care Team (Late st Contact Info) Description 08/16/2025 11:15 AM EDT Office Visit [address] [address] Tere Thompson NP [address] [place] [address] 10/10/2025 9:15 AM EST Office Visit [address] [address] Yi Thompson MD [address] [place] [phone] documented as of this encounter Visit Diagnoses Not on filedocumented in this encounter Care Teams Measuring Clerk Relationship Specialty Start Date End Date Juliet Bird FNP PCP - General Family Medicine 01/22/23 08/19/23 Yi Thompson MD [address] [place] [phone] PCP - General Internal Medicine 08/20/23 documented as of this encounter
== END 2025-08-15 11:45 | disposition home or self-care (01) ==
LOC: HO.HWS 11:12
PROVIDERS: PCP Student in an Organized Health Care Education/Training Program; Visit Provider Obstetrics & Gynecology
DX: N39.0 Urinary tract infection, site not specified (principal); R35.0 Frequency of micturition; R10.2 Pelvic and perineal pain; G89.29 Other chronic pain
CPT/HCPCS: 99213

== ENCOUNTER → 2025-08-15 11:12 | Outpatient (BNVA) | payer OTHER, SELFPAY | PROVIDERS: PCP Student in an Organized Health Care Education/Training Program; Visit Provider Obstetrics & Gynecology | DX: R10.2 Pelvic and perineal pain (principal) | CPT/HCPCS: 81002 ==

== ENCOUNTER 2025-08-16 13:24 | Outpatient (AMB) | payer OTHER, SELFPAY ==
--- OUTSIDE RECORDS SUMMARY | 2025-08-16 11:15 | XMS_ITS | Encounter Summary ---
Author Organization [employer] Address [address] [place] [phone] Care Team Providers Care Physician Assistant Psychiatry Name Role Phone Yi Thompson MD Primary Care Pro vider Reason for Visit * Reason Comments sick onsite Encounter Details Date Type Department Care Team ([facility] st Contact Info) Description 08/16/2025 11:15 AM EDT Office Visit [facility] [address] [place] [address] Tere Thompson NP [address] [place] [address] Paronychia of finger of right hand (Primary Dx) Social History Tobacco Use Types [...] the past 12 months, has t he [employer], gas, oil or water company threatened to [...] Sign Reading Time Taken Comments Blood Pressure 130/82 08/16/2025 11:30 AM EDT Pulse 94 08/16/2025 11:30 AM EDT Temperature 36.4 C (97.6 F) 08/16/2025 11:30 AM EDT Respiratory Rate 22 08/16/2025 11:30 AM EDT Oxygen Saturation 99% 08/16/2025 11:30 AM EDT Inhaled Oxygen Concentration - - Weight 69.1 kg (152 lb 6.4 oz) 08/16/2025 11:30 AM EDT Height 165.1 cm (5' 5 ) 08/16/2025 11:30 AM EDT Body Mass Index 25.36 08/16/2025 11:30 AM EDT documented in this encounter Plan of Treatment Upcoming Encounters Date Type Department Care Team (Late st Contact Info) Description 10/10/2025 9:15 AM EST Office Visit [facility] [address] [place] [phone] Yi Thompson MD [address] [place] [address] documented as of this encounter Goals Goal Patient Goal Type Associated Problems Recent Progress Patient-Stated? Author Blood Pressure < 140/90 Blood Pressure 130/82(2024 11:30 AM EDT) No Jn Shah Hemoglobin A1c < 7 Result Component 7.1( 10:35 AM EDT) No nJ Shah documented as of this encounter Visit Diagnoses Diagnosis Paronychia of finger of right hand- Primary documented in this encounter Additional Health Concerns Assessment Noted Time PHQ-9 Depression Total Score: 0 04/06/20 11:08 AM EDT documented as of this encounter Care Teams Physician Assistant Psychiatry Relationship Specialty Start Date End Date Yi Thompson MD [address] [place] [phone] PCP - General Internal Medicine 08/20/23 documented as of this encounter
--- NOTE | 2025-08-16 13:29 | MHC.OFFVIS ---
Intake Visit Reasons: hydrodistension follow up Intake Note: Patient is present today for a hydrodistension follow up Urology Med:None Antibiotic Allergy: Penicillins Blood Thinner:None PVR:0ml Brush Holder Assembler Required: Yes Brush Holder Assembler Language: Ocean Lifeguard Specialist Name: [id number] [phone] Information Interpreted: non-clinical & clinical Allergies Penicillins (PENICILLINS) Allergy (Intermediate, Verified 08/16/25 13:29) HIVES Medication List - Last Reconciled 08/16/25 by Analy Campos MD acetaminophen (Tylenol) 650 mg (2 x 325 mg) PO Q6H PRN albuterol sulfate 90 mcg/actuation (ProAir HFA) 2 puffs inhalation Q4-6H PRN amitriptyline 10 mg PO BEDTIME atorvastatin 10 mg PO DAILY bisacodyl (Dulcolax (bisacodyl)) 10 mg (2 x 5 mg) PO BEDTIME blood sugar diagnostic (FreeStyle Lite Strips) Test blood glucose twice per day blood-glucose meter (LSEOStyle Lite Meter kit) As directed cholecalciferol (vitamin D3) 62.5 mcg PO QAM ferrous sulfate 325 mg PO DAILY MDD 325mg flash glucose scanning reader (LSEOStCleverMiles Emile 2 [place]) As directed fluticasone furoate-vilanterol 200-25 mcg/dose (Breo Ellipta) 1 inh inhalation DAILY 30 days fluticasone propionate 50 mcg/actuation 1 spray intranasal BID ibuprofen 600 mg PO Q8H PRN levothyroxine 112 mcg PO DAILY losartan-hydrochlorothiazide 100-12.5 mg 1 tab PO DAILY metformin ER 500 mg PO BID montelukast 10 mg PO DAILY pantoprazole 40 mg PO QAM phenazopyridine (Pyridium) 100 mg PO TID PRN rizatriptan 10 mg orally; daily at the onse of headaches. 30 days MDD 10mg sitagliptin phosphate (Januvia) 100 mg PO DAILY HPI Comments Details: 08/16/25--Sapna is followed for chronic interstitial cystitis and lower urinary tract symptoms of urgency and bladder pain. The patient is status post repeat cystoscopy hydrodistention on 07/25/2025 at time of cystoscopy bladder capacity was 800 mL mild glomerulations noted. The patient is also followed by pain management for sacroiliitis and has a diagnosis of chronic pain syndrome. History of Present Illness The patient is a 64-year-old female presenting with interstitial cystitis and associated lower urinary tract symptoms. She has been experiencing urgency and bladder pain and underwent a repeat cystoscopy with hydrodistension on July 25, 2025, which showed a bladder capacity of 800 mL and mild glomerulations. Additionally, the patient is managed for sacroiliitis and chronic pain syndrome, receiving care from pain management specialists. Results - Cystoscopy with hydrodistension-07/25/25--: Bladder capacity 800 mL, mild glomerulations noted. Plan 1. Interstitial Cystitis - Continue management with Pyridium for PRN symptom relief. - Use [id number] Tylenol as needed. - Follow-up in six months to reassess symptoms and management efficacy. 2. Sacroiliitis - may be contributing to bladder and pelvic pain symptoms. - Continue follow-up with pain management. 06/12/25--Sapna is a 64-year-old female who is followed for chronic interstitial cystitis with lower urinary tract symptoms including bladder pain and urgency. History of Present Illness - The patient is a 64-year-old female presenting with chronic interstitial cystitis. - She reports lower urinary tract symptoms including bladder pain and urgency. - She complains of pain down her right leg which I have discussed is not related. - Gabapentin 300 mg daily has been prescribed to manage her symptoms. She has discontinued. - She also declines pyridium at this time - Urinalysis results showed no blood or signs of infection. - Will repeat cystoscopy hydrodistension and renal ultrasound Results - Urinalysis: blood-negative, leukocytes-negative 03/28/25--Sapna is a 64-year-old female presenting with chronic interstitial cystitis and related lower urinary tract symptoms, including bladder urgency and pain. Her management includes gabapentin 300 mg daily for unrelated back pain, which influences her tolerance for additional medication due to cumulative nighttime sedation effects. Continue gabapentin. 01/30/25--Sapna is a 64-year-old female presenting with chronic interstitial cystitis and related lower urinary tract symptoms, including bladder urgency and pain. Last seen in December 2024, she had been managing her condition effectively, having stopped hydroxyzine. Despite this, her symptoms?particularly bladder pain?have resurfaced. She self-initiated cranberry gummies two weeks ago but noticed an aggravation of bladder discomfort. Her management includes gabapentin 300 mg daily for unrelated back pain, which influences her tolerance for additional medication due to cumulative nighttime sedation effects. The recent symptom recurrence demands reevaluation and adjustment of her management plan. Urinary Symptoms Review - Bladder urgency and pain - Resumed bladder pain two weeks ago, likely aggravated by cranberry gummies - Former use of hydroxyzine, causing sedation concerns in concurrent nighttime medication regimen 12/22/24--Sapna is a 64-year-old female followed for interstitial cystitis and lower urinary tract symptoms of urgency and bladder pain. She states she is doing much better she has discontinued the hydroxyzine. She is followed by pain management for back pain and is on gabapentin 300 mg daily that she takes before bed. I will have her follow-up in 6 months she will call for any issues prior. 08/22/24--Sapna is being followed for recurrent UTIs, interstitial cystitis, full time staff interpreter utilized. She is using the oxybutynin 10 mg daily. She is here with complaints of increased pain with urination. Urinalysis is nitrite positive. The patient states that she has not been using any other antibiotics at this time. I will empirically place her on Cipro 500 mg twice a day pending urine culture. 08/01/24--Sapna is being followed for recurrent UTIs, interstitial cystitis and related symptoms of pelvic pain and urgency. She was last treated for UTI symptoms with antibiotics in June, she denies dysuria but complains of vaginal itching. She is taking oxybutynin 10 mg daily. Nitrofurantoin 50 mg post sexual activity. I Will send diflucan to pharm. 04/15/2024--Sapna is being followed for recurrent UTIs, interstitial cystitis and related symptoms of pelvic pain and urgency. She called to be seen today because of pelvic pain. She states for about 8 days she has been off and on having pain with urination. She states that she forgot to take the prophylactic antibiotics with intercourse. Urinalysis evaluated is nitrite positive. I will send urine for culture. I will empirically start Macrobid 100 mg twice a day for 7 days pending urine culture. In review of her chart the patient had a CT scan abdomen pelvis with contrast ordered by another provider for complaints of abdominal pain. I have reviewed the results kidneys duplicated right renal system no hydronephrosis no renal calculi. Will continue low dose macrobid post intercourse, tylenol and/or OTC NSAID prn, Cont Uribel TID, continue oxybutynin 10 mg qhs. 02/01/24-Sapna is a 62-year-old female who presents today to the office for a follow-up. Sapna is followed due to bladder pain syndrome. She has been treated with bladder installations heparin lidocaine and Solu-Medrol. The patient is a Tajik speaking female. Certified full time staff interpreter was present during the visit. PMH includes --hypertension, diabetes, h/o thyroid cancer, followed by endocrine. I had previously discussed use of pyridium prior to intercourse and low dose macrobid post intercourse, tylenol and/or OTC NSAID prn. She was prescribed uribel. The patient states the her bladder pain is much better, but not gone. 03/17/23--Out patient cystoscopy bladder biopsy-- bladder findings, erythematous flattened changes, pathology chronic cystitis with muscularis propria present. 04/23/22-- urine cytology- negative for malignant cells PFSH Medical History Type 2 diabetes mellitus with polyneuropathy Bladder pain Headache Cognitive disorder Cervical dystonia Palpitations Non-cardiac chest pain Pelvic pain Leg pain Lower abdominal pain Gross hematuria Toe pain Right knee pain Effusion, right knee Dysuria Pelvic pain in female Hematuria Mass of spine Hematuria DM2 (diabetes mellitus, type 2) Nail deformity Paronychia Failure of spinal cord stimulator Thymoma Pulmonary nodules Thyroid cancer Blood in urine Constipation by delayed colonic transit Tubular adenoma of colon Gastritis Hypertension Dyslipidemia Post-surgical hypothyroidism Primary thyroid cancer Vitamin D deficiency Surgical History History of thymectomy History of back surgery Hx of colonoscopy Hx of thyroidectomy Hx of hernia repair Hx of section Hx of hysterectomy History of esophagogastroduodenoscopy (EGD) Family History Father Stroke Heart attack Mother Diabetes mellitus Family/Other Family history of cancer Sister Stomach cancer Family/Other Thyroid cancer Social History Household Members: Spouse, Family and Other Household Members Other:: grandson Housing: Apartment Are you a primary companion caregiver to a significant other at home: No Do you presently have visiting nurse or other home services: No Alcohol intake: former Comment: socially Patient Tobacco Use Status: Never used Tobacco Tobacco use type: Cigarette Second Hand Smoke Exposure: No service: No Sexual orientation: Straight/Heterosexual Gender identity: Female Female Reproductive History Menstrual Age of Menarche: 13 Review of Systems Const All systems reviewed & are unremarkable except as noted in HPI and below Reports no additional complaints Eyes Reports no additional complaints ENT Reports no additional complaints Card Reports no additional complaints Resp Reports no additional complaints GI Reports no additional complaints Reports as per HPI Musc Reports no additional complaints Skin/Breast Reports system reviewed and no additional complaints, except as documented Neuro Reports no additional complaints Psych Reports no additional complaints Endo Reports no additional complaints Je/Lymph Reports no additional complaints Aller/Immun Reports no additional complaints Results Reviewed Results Reviewed: Date of Service: 03/09/24 CT ABDOMEN AND PELVIS WITH CONTRAST CLINICAL INFORMATION: Abdominal pain COMPARISON: CT scan of abdomen and pelvis on 11/15/2023 TECHNIQUE: Multidetector volumetric images were obtained from the superior aspect of the liver through the pubic symphysis following administration 85 mL of Omnipaque 350 intravenous contrast. Sagittal and coronal reformatted images were obtained on the technologist's workstation. Oral contrast: No This CT examination was performed using dose optimization techniques as appropriate, variously including the following: *Automated exposure control *Adjustment of mA and/or kV according to patient size (this includes techniques or standardized protocols for targeted exams where dose is matched to indication/reason for exam; i.e. extremities or head) *Use of iterative reconstruction technique DLP: 288 mGy-cm FINDINGS: LUNG BASES: A stable 0.5 cm calcified granuloma is seen at posterior pleural border of right lower lobe posterior basal segment. LIVER: No focal lesion is seen in the liver. GALLBLADDER AND BILIARY TREE: Gallbladder appears unremarkable without calcified stones. Common bile duct is not dilated. SPLEEN: The spleen is normal in size without focal lesion. PANCREAS: The pancreas appears unremarkable. ADRENAL GLANDS: Adrenal glands are normal in size without focal lesion bilaterally. KIDNEYS: Bilateral kidneys are normal in size without focal lesion. 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 BOWELS: There is normal filling of stomach and small bowel loops with oral contrast down to proximal pelvic ileum. RETROPERITONEUM: No abnormally enlarged retroperitoneal lymph nodes, mass or hematoma could be seen. BLOOD VESSELS: Abdominal aorta is normal in size with scattered atherosclerotic calcifications and smoothly patent. ABDOMINAL WALL: Abdominal subcutaneous tissue and muscle are intact. No evidence of ventral hernia. PERITONEUM: There was no ascites. There were no abdominal peritoneal inflammatory changes seen. No free peritoneal air was seen. No abnormally enlarged mesenteric lymph nodes are found. BONES: Mild posterior L4-L5 and L5-S1 disc protrusions, advanced L5-S1 degenerative lumbar disc disease are seen. No fracture or dislocation. No focal bone lesion diagnostic of metastatic disease could be seen in the lumbar region. EXAMINATION: CT pelvis. FINDINGS: URINARY BLADDER: Urinary bladder fills normally with urine. BOWELS: There is no abnormal dilatation of the large and small bowel loops. Normal caliber appendix is seen projecting medial and inferior to the cecum with intraluminal high density material, most prominent in the bulbous distal end. Inspissated barium is again visualized in the sigmoid colon diverticula. GENITAL ORGANS: No adnexal mass lesion could be seen. The uterus is surgically absent. LYMPH NODES: No abnormally enlarged iliac or inguinal lymph nodes are seen. PERITONEUM: No inflammatory changes, ascites or free peritoneal air are found in the pelvis. BONES: No fracture or dislocation. No focal bone lesion diagnostic of metastatic disease could be seen in the pelvis. Right posterior gluteal nerve stimulator device is seen at L5-S1 junction, with electrode entering the spinal canal at the same level ending at L1. IMPRESSION: 1. Interval resolution of proximal jejunitis. No evidence of acute intra-abdominal or pelvic process. 2. Unchanged duplicated right renal collecting systems. 3. Unchanged, Status post hysterectomy. 4. No evidence of bowel obstruction or inflammatory changes. Unchanged sigmoid colon diverticulosis. 5. Interval appearance of dense content in the appendicular lumen, compatible with inspissated barium or appendicolith. 6. No interval change in position of right gluteal nerve stimulator and stimulator wire. Date of Service: 01/11/23 EXAMINATION: CT abdomen pelvis w IV con CLINICAL INFORMATION: Reason for Exam epigastric/LLQ abd pain, N COMPARISON: Prior CT scan July 2022 FINDINGS: LOWER THORAX: Included lung bases are clear. HEPATOBILIARY: No focal hepatic lesions. No biliary ductal dilatation. GALLBLADDER: Gallbladder distended, otherwise unremarkable. SPLEEN: Spleen is normal in size. PANCREAS: No focal mass or ductal dilatation. STOMACH AND GASTROINTESTINAL TRACT: Stomach is grossly unremarkable. There is no bowel distention or thickening. No CT evidence of appendicitis. Mild diverticulosis without evidence of acute diverticulitis. ADRENALS: No adrenal nodules. KIDNEYS/URETERS: No hydronephrosis, stones or solid mass lesions. URINARY BLADDER: Partially decompressed. PELVIC VISCERA: Unremarkable PERITONEUM: No free air or fluid. LYMPH NODES: Few mildly prominent mesenteric lymph nodes right lower quadrant the short axis is less than 1 cm, there are not significantly enlarged. VASCULAR:Abdominal aorta normal in size, no aneurysm found. BONES, ABDOMINAL WALL AND SOFT TISSUES: There is a baclofen pump embedded in the subcutaneous fat posterior back the catheter of which is in the spinal central canal the tip of the level of L1 right of midline. IMPRESSION:? *? No CT evidence of acute intra-abdominal process to explain patient's pain symptoms. ? *? Mild diverticulosis without evidence of acute diverticulitis. ? *? Few mildly prominent mesenteric lymph nodes right lower quadrant the short axis is less than 1 cm. Not significantly enlarged. No evidence of inflammation or appendicitis. ? *? Baclofen pump embedded in the subcutaneous fat posterior back the catheter of which is in the spinal canal the tip of which is in the level of L1 right of midline. 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 Interstitial Cystitis - Continue management with Pyridium for PRN symptom relief. - Use [id number] Tylenol as needed. - Follow-up in six months to reassess symptoms and management efficacy. 2. Sacroiliitis - may be contributing to bladder and pelvic pain symptoms. - Continue follow-up with pain management. Medications: Changed From phenazopyridine (Pyridium) Must administer with food 100 mg PO TID 6 tabs 0RF To phenazopyridine (Pyridium) Must administer with food 100 mg PO TID PRN 30 tabs 2RF pain Discontinued oxycodone Partial Fill upon patient request. Discontinued Reason: Patient Completed Course 5 mg PO Q8H PRN 6 tabs 0RF pain Scribe Plan - Not visible on output: Patient was informed and verbally consented to the use of an ambient scribe for clinic note documentation during this visit. Coding Level of Care Code Est Pt Level 3 (93661) Complex EM visit Add On G2211 Diagnoses Chronic pelvic pain in female R10.2; G89.29 Chronic pain syndrome G89.4 Sacroiliitis M46.1 Urinary frequency R35.0 Duplex kidney Q63.8 Chronic interstitial cystitis N30.10
--- OUTSIDE RECORDS SUMMARY | 2025-08-16 14:38 | XMS_ITS | Encounter Summary ---
Author Organization [employer] Address [address] [place] [id number] Care Team Providers Care Educational Psychology Teacher Name Role Phone Yi Thompson MD Primary Care Pro vider Reason for Visit * Reason Comments Med Refill Encounter Details Date Type Department Care Team ([facility] st Contact Info) Description 06/02/2024 Refill [facility] [address] [place] [address] Yi Thompson MD [address] [place] [address] Social History Tobacco Use Types Packs/Day Years [...] AM EST Office Visit [facility] [address] [place] [address] [phone] Yi Thompson MD [address] [place] [address] [phone] documented as of this encounter Goals Goal [...] documented as of this encounter Care Teams Educational Psychology Teacher Relationship Specialty Start Date End Date Yi Thompson MD [address] [place] [phone] PCP - General Internal Medicine 08/20/23 documented as of this encounter
--- OUTSIDE RECORDS SUMMARY | 2025-08-16 14:38 | XMS_ITS | Encounter Summary ---
Author Organization [employer] Address [address] [place] [phone] Care Team Providers Care Floor Tech Name Role Phone Yi Thompson MD Primary Care Pro vider Reason for Visit * Reason Comments Med Refill Encounter Details Date Type Department Care Team ([facility] st Contact Info) Description 05/20/2024 Refill [facility] [address] [place] [phone] Name, MD Ronny [address] [place] [phone] Social History Tobacco Use Types Packs/Day Years [...] Description 10/10/2025 9:15 AM EST Office Visit [facility] [address] [place] [address] [phone] Yi Thompson MD [address] [place] [address] [phone] documented as of this encounter Goals Goal [...] documented as of this encounter Care Teams Floor Tech Relationship Specialty Start Date End Date Yi Thompson MD [address] [place] [phone] PCP - General Internal Medicine 08/20/23 documented as of this encounter
--- OUTSIDE RECORDS SUMMARY | 2025-08-16 14:38 | XMS_ITS | Encounter Summary ---
Author Organization [employer] Address [address] [facility] [place], [place] [address] Care Team Providers Care Airport Planner Name Role Phone Yi Thompson MD Primary Care Pro vider Reason for Visit * Reason Comments Med Refill Encounter Details Date Type Department Care Team ([facility] st Contact Info) Description 09/15/2023 Refill [facility] [address] [place] [phone] Juliet Bird, MARY ELLEN Primary hypertension; Type 2 diabetes mellitus without complication, without long-term current use of insulin (CMS/LTAC, [facility]IN [facility]) [...] 10/10/2025 9:15 AM EST Office Visit [facility] [address] [place] [address] [phone] Yi Thompson MD [address] [place], [place] [phone] documented as of this encounter Visit Diagnoses Diagnosis Primary hypertension Unspecified essential hypertension Type 2 diabetes mellitus without complication, without long-term current use of insulin (HCC) documented in this encounter Care Teams Airport Planner Relationship Specialty Start Date End Date Yi Thompson MD [address] [place] [address] [phone] PCP - General Internal Medicine 08/20/23 documented as of this encounter
--- OUTSIDE RECORDS SUMMARY | 2025-08-16 14:38 | XMS_ITS | Encounter Summary ---
Author Organization [employer] Address [address] [place] [address] Care Team Providers Care Chief Of Service Name Role Phone Yi Thompson MD Primary Care Pro vider Reason for Referral * Consultation (Routine) - Authorized Specialty Diagnoses / Procedures Referred By Contac t Referred To Contact Pharmacy Diagnoses Hypertension Maria Del Carmen Meza MD [address] [place] [address] Phone: tel: fax: Referral ID Status Reason Start Date Expiration Date Visits Requested Visits Authorized [id number] Authorized Continuity of Care 04/03/2025 04/03/2026 6 6 Encounter Details Date Type Department Care Team ([facility] st Contact Info) Description 03/30/2025 Orders Only [facility] [address] [place] [address] Maria Del Carmen Meza MD [address] [place], [place] [phone] Hypertension (Primary Dx) Social History Tobacco Use [...] Office Visit [facility] [address] [place] [address] Yi Thompson MD [address] [place] [address] Scheduled Referrals Name Type Priority Associated Diagnoses Orde r Schedule Referral to Pharmacy MTM Outpatient Referral Routine Hypertension Ordered: 04/03/2025 documented as of this encounter Goals Goal Patient Goal Type Associated Problems Recent Progress Patient-Stated? Author Blood Pressure < 140/90 Blood Pressure 130/82(2024 11:30 AM EDT) No Jn Shah Hemoglobin A1c < 7 Result Component 7.1( 10:35 AM EDT) No Jn hSah documented as of this encounter Procedures Procedure Name Priority Date/Time Associated Diagnosis Comments MR CERVICAL SPINE WO CONTRAST Routine 04/12/2025 8:21 AM EDT documented in this encounter Results * MR Cervical Spine w/o Contrast (04/12/2025 8:21 AM EDT) Anatomical Region Laterality Modality Spine, C-spine Magnetic Resonan ce 04/12/2025 8:21 AM EDT Narrative 04/12/2025 9:59 AM EDT [place] [address] Magnetic Resonance Report Signed Patient: Sapna Herzog MR#: [id number] : 1960 Acct:[id number] Age/Sex: 64 / F ADM Date: 04/12/25 Loc: HO.MRI Attending Dr: Pratik Estes MD Ordering Physician: Pratik Estes MD Date of Service: 04/12/25 Procedure(s): MR cervical spine wo con Accession Number(s): [id number] cc: Pratik Estes MD; Yi Thompson MD [...] 04/12/25 0956 DD/ 0821 TD/TT: 04/12/25 0837 Grease Maker: Procedure Note Donotuseinterpreter, Image - 04/12/[address] [address] Magnetic Resonance Report Signed Patient: Sapna Herzog CMR#: [id number] : 9Acct:[id number] Age/Sex: 64 / FADM Date: 04/12/25 Loc: HO.MRI Attending Dr: Pratik Estes MD Ordering Physician: Pratik Estes MD Date of Service: 04/12/25 Procedure(s): MR cervical spine wo con Accession Number(s): [id number] cc: Pratik Estes MD; Yi Thompson MD [...] OV> 04/12/2556 DD/ 0 TD/TT: 04/12/25 0837 Grease Maker: [facility] External Provider IMG MRI PROCEDURES Final Result documented in this encounter Visit Diagnoses Diagnosis Hypertension- Primary Unspecified essential hypertension documented in this encounter Additional Health Concerns Assessment Noted Time PHQ-9 Depression Total Score: 1 01/13/20 24 12:16 PM EST documented as of this encounter Care Teams Chief Of Service Relationship Specialty Start Date End Date Yi Thompson MD [address] [place] [address] PCP - General Internal Medicine 08/20/23 documented as of this encounter
--- OUTSIDE RECORDS SUMMARY | 2025-08-16 14:38 | XMS_ITS | Encounter Summary ---
Author Organization [employer] Address [address] [place] [address] Care Team Providers Care Veneer Gluer Name Role Phone Yi Thompson MD Primary Care Pro vider Reason for Visit * Reason Comments Med Change Request Encounter Details Date Type Department Care Team ([facility] st Contact Info) Description 11/08/2023 Refill [facility] MED[facility]INE [address] [place] [address] [facility] 230 [place] [address] Viral upper respiratory illness Social History Tobacco [...] Description 10/10/2025 9:15 AM EST Office Visit [facility] MED[facility]INE [address] [place] [address] [phone] Yi Thompson MD [address] [place] [address] documented as of this encounter Visit Diagnoses Diagnosis Viral upper respiratory illness documented in this encounter Care Teams Veneer Gluer Relationship Specialty Start Date End Date Yi Thompson MD [address] [place] [address] [phone] PCP - General Internal Medicine 08/20/23 documented as of this encounter
--- OUTSIDE RECORDS SUMMARY | 2025-08-16 14:38 | XMS_ITS | Encounter Summary ---
Author Organization [employer] Address [address] [place] [address] Care Team Providers Care Weigher Bulker Name Role Phone Yi Tohmpson MD Primary Care Pro vider Reason for Visit * Reason Comments Med Change Request Encounter Details Date Type Department Care Team ([facility] Contact Info) Description 03/15/2024 Refill [facility]INE [address] [place] [address] Leticia Plunkett, ANP 230 [place] [address] Sinus pressure Social History Tobacco Use Types [...] 10/10/2025 9:15 AM EST Office Visit [facility] MEDICINE [address] [place] [address] Yi Thompson MD [address] [place] [address] documented as of this encounter Goals Goal [...] documented as of this encounter Care Teams Weigher Bulker Relationship Specialty Start Date End Date Yi Thompson MD [address] [place] [address] PCP - General Internal Medicine 08/20/23 documented as of this encounter
--- OUTSIDE RECORDS SUMMARY | 2025-08-16 14:38 | XMS_ITS | Encounter Summary ---
Author Organization [employer] Address [address] [place] [address] Care Team Providers Care Building Mechanic Name Role Phone Yi Thompson MD Primary Care Pro vider Reason for Visit * Reason Comments Med Refill Encounter Details Date Type Department Care Team ([facility] st Contact Info) Description 05/03/2024 Refill [facility]INE [address] [place] [address] Yi Thompson MD [address] [place] [address] Social History Tobacco Use Types Packs/Day Years [...] Description 10/10/2025 9:15 AM EST Office Visit [facility] MEDICINE [address] [place] [address] [phone] Yi Thompson MD [address] [place] [address] [phone] documented as of this encounter Goals Goal [...] documented as of this encounter Care Teams Building Mechanic Relationship Specialty Start Date End Date Yi Thompson MD [address] [place] [address] PCP - General Internal Medicine 08/20/23 documented as of this encounter
--- OUTSIDE RECORDS SUMMARY | 2025-08-16 14:38 | XMS_ITS | Encounter Summary ---
Author Organization [employer] Address [address] [place] [address] Care Team Providers Care Showroom Executive Director Name Role Phone Yi Thompson MD Primary Care Pro vider Reason for Visit * Reason Onset Date Comments Nurse Triage 08/15/2025 Encounter Details Date Type Department Care Team ([facility] st Contact Info) Description 08/15/2025 Telephone [facility]INE 230 [place] [address] Yi Thompson MD 230 [place] [address] Nurse Triage Social History Tobacco Use Types [...] pt to triage, spoke to pt. 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 pt states on Thursday, tried to cut [...] caller accepted this outcome. Contact pt at [phone] Need nub card tender documented in this encounter Plan of Treatment Upcoming Encounters Date Type Department Care Team (Late st Contact Info) Description 10/10/2025 9:15 AM EST Office Visit [facility] MED[facility]INE [address] [place] [address] Yi Thompson MD [address] [place] [address] documented as of this encounter Goals Goal [...] documented as of this encounter Care Teams Showroom Executive Director Relationship Specialty Start Date End Date Yi Thompson MD [address] [place] [phone] PCP - General Internal Medicine 08/20/23 documented as of this encounter
--- OUTSIDE RECORDS SUMMARY | 2025-08-16 14:38 | XMS_ITS | Encounter Summary ---
Author Organization [employer] Address [address] [place] [address] Care Team Providers Care Bodybuilder Name Role Phone Yi Thompson MD Primary Care Pro vider Encounter Details Date Type Department Care Team ([facility] st Contact Info) Description 11/06/2024 Orders Only [facility] MEDICINE 230 [place] [address] Provider, MD Lux Social History Tobacco Use [...] 9:15 AM EST Office Visit [facility] MED[facility]INE [address] [place] [address] Yi Thompson MD [address] [place] [phone] documented as of this encounter Goals Goal [...] documented as of this encounter Care Teams Bodybuilder Relationship Specialty Start Date End Date Yi Thompson MD [address] [place] [phone] PCP - General Internal Medicine 08/20/23 documented as of this encounter
--- OUTSIDE RECORDS SUMMARY | 2025-08-16 14:38 | XMS_ITS | Encounter Summary ---
Author Organization [employer] Address [address] [place] [address] Care Team Providers Care Dinkey Dispatcher Name Role Phone Juliet Bird [facility] Primary Care Provider Yi Jessica MD Primary Care Pro vider Reason for Visit * Reason Comments Med Refill Encounter Details Date Type Department Care Team (Late Contact Info) Description 01/28/2023 Refill [facility] MED[facility]INE 230 [place], [place] [phone] [facility] 230 [place], [place] [phone] Primary hypertension Social History Tobacco Use Types [...] Description 10/10/2025 9:15 AM EST Office Visit [facility] MED[facility]INE [address] [place], [place] [phone] Yi Thompson MD [address] [place], [place] [phone] documented as of this encounter Visit Diagnoses Diagnosis Primary hypertension Unspecified essential hypertension documented in this encounter Care Teams Dinkey Dispatcher Relationship Specialty Start Date End Date Juliet Bird FNP PCP - General Family Medicine 01/22/23 08/19/23 Yi Thompson MD [address] [place] [address] PCP - General Internal Medicine 08/20/23 documented as of this encounter
--- OUTSIDE RECORDS SUMMARY | 2025-08-16 14:38 | XMS_ITS | Encounter Summary ---
Author Organization [employer] Address [address] [place] [address] Care Team Providers Care Respiratory Assistant Name Role Phone Juliet Bird Primary Care Provider Yi Jessica MD Primary Care Pro vider Reason for Visit * Reason Comments Med Refill Encounter Details Date Type Department Care Team (Late Contact Info) Description 06/28/2023 Refill [facility] [address] [place] [address] Juliet Bird FNP Social History Tobacco Use [...] Description 10/10/2025 9:15 AM EST Office Visit [facility] [address] [place] [address] Yi Thompson MD 230 [place] [address] documented as of this encounter Visit Diagnoses Not on filedocumented in this encounter Care Teams Respiratory Assistant Relationship Specialty Start Date End Date Juliet Bird FNP PCP - General Family Medicine 01/22/23 08/19/23 Yi Thompson MD [address] [place] [address] PCP - General Internal Medicine 08/20/23 documented as of this encounter
--- OUTSIDE RECORDS SUMMARY | 2025-08-16 14:38 | XMS_ITS | Encounter Summary ---
Author Organization [employer] Address [address] [place] [address] Care Team Providers Care Edger Hand Name Role Phone Yi Thompson MD Primary Care Pro vider Reason for Visit * Reason Onset Date Comments Call Back Request 04/25/2025 Encounter Details Date Type Department Care Team ([facility] Contact Info) Description 04/25/2025 Telephone [facility] MEDICINE 230 [place] [address] Yi Thompson MD 230 [place] [address] Call Back Request Social History Tobacco Use [...] PM EDT Telephone call from Norah at [facility] Physical Therapy Department: Norah, the Manufacturing Engineer AssemblyAnimal Daycare Provider, informed that a referral has been received for the patient. However, the physical therapy provider would like to speak directly with the referring provider--not nursing staff--regarding the referral. When calling [facility] Physical Therapy at [phone], ask for Norah. She will transfer the call to the appropriate provider, as there is no direct line available. documented in this encounter Plan of Treatment Upcoming Encounters Date Type Department Care Team (Late st Contact Info) Description 10/10/2025 9:15 AM EST Office Visit [facility] MEDICINE [address] [place] [address] Yi Thompson MD [address] [place] [address] documented as of this encounter Goals Goal Patient Goal Type Associated Problems Recent Progress Patient-Stated? Author Blood Pressure < 140/90 Blood Pressure 130/82(2024 11:30 AM EDT) Jn Petit Hemoglobin A1c < 7 Result Component 7.1( 10:35 AM EDT) No Jn Shah documented as of this encounter Visit Diagnoses Not on filedocumented in this encounter Additional Health Concerns Assessment Noted Time PHQ-9 Depression Total Score: 0 04/06/20 11:08 AM EDT documented as of this encounter Care Teams Edger Hand Relationship Specialty Start Date End Date Yi Thompson MD [address] [place] [address] PCP - General Internal Medicine 08/20/23 documented as of this encounter
--- OUTSIDE RECORDS SUMMARY | 2025-08-16 14:38 | XMS_ITS | Encounter Summary ---
Author Organization [employer] Address [address] [place] [address] [address] [place] [address] Care Team Providers Care Gateman Name Role Phone Yi Thompson MD Primary Care Pro vider Encounter Details Date Type Department Care Team (Latest Contact Info) Description 08/16/2025 Travel Social History Tobacco Use Types Packs/Day [...] 10/10/2025 9:15 AM EST Office Visit [facility] MEDICINE [address] [place] [address] Yi Thompson MD [address] [place] [address] documented as of this encounter Goals Goal [...] documented as of this encounter Care Teams Gateman Relationship Specialty Start Date End Date Yi Thompson MD [address] [place] [phone] PCP - General Internal Medicine 08/20/23 documented as of this encounter
--- OUTSIDE RECORDS SUMMARY | 2025-08-16 14:38 | XMS_ITS | Encounter Summary ---
Author Organization [employer] Address [address] [place] [address] Care Team Providers Care Infantry Unit Leader Name Role Phone Yi Thompson MD Primary Care Pro vider Reason for Visit * Reason Onset Date Comments Nurse Triage 02/15/2024 Encounter Details Date Type Department Care Team ([facility] st Contact Info) Description 02/15/2024 Telephone [facility] MEDICINE 230 [place] [address] Yi Thompson MD 230 [place] [address] Nurse Triage Social History Tobacco Use Types [...] 02/15/2024 12:44 PM EDT Triage call with [place] [id number] Pt reports headache frontal and back of [...] 400pm. Pt is advised to come to [facility] which is open till 8pm this evening. [...] Tingling sensation The caller accepted this outcome Icelandic speaker documented in this encounter Plan of Treatment Upcoming Encounters Date Type Department Care Team (Late st Contact Info) Description 10/10/2025 9:15 AM EST Office Visit [facility] MEDICINE 230 [place] [address] Yi Thompson MD [address] [place] [address] [phone] documented as of this encounter Visit Diagnoses Not on filedocumented in this encounter Additional Health Concerns Assessment Noted Time PHQ-9 Depression Total Score: 1 01/13/20 24 12:16 PM EST documented as of this encounter Care Teams Infantry Unit Leader Relationship Specialty Start Date End Date Yi Thompson MD [address] [place] [address] [phone] PCP - General Internal Medicine 08/20/23 documented as of this encounter
--- OUTSIDE RECORDS SUMMARY | 2025-08-16 14:38 | XMS_ITS | Encounter Summary ---
Author Organization [employer] Address [address] [place] [address] Care Team Providers Care Superintendent Measurement Name Role Phone Yi Thompson MD Primary Care Pro vider Reason for Visit * Reason Comments Med Refill Encounter Details Date Type Department Care Team ([facility] st Contact Info) Description 09/12/2024 Refill [facility] MEDICINE 230 [place] [address] Yi Thompson MD 230 [place] [address] Type 2 diabetes mellitus without complication, without long-term current use of insulin ([facility]) Social History Tobacco Use Types Packs/Day Years [...] the past 12 months, has t he [employer], gas, oil or water company threatened to [...] 9:15 AM EST Office Visit [facility] MEDICINE [address] [place] [address] Yi Thompson MD [address] [place] [address] documented as of this encounter Goals Goal [...] documented as of this encounter Care Teams Superintendent Measurement Relationship Specialty Start Date End Date Yi Thompson MD [address] [place] [address] PCP - General Internal Medicine 08/20/23 documented as of this encounter
--- OUTSIDE RECORDS SUMMARY | 2025-08-16 14:38 | XMS_ITS | Encounter Summary ---
Author Organization [employer] Address [address] [place] [address] Care Team Providers Care Division Sales Manager Name Role Phone iY Thompson MD Primary Care Pro vider Encounter Details Date Type Department Care Team (Latest Contact Info) Description 06/26/2025 Results Follow-Up [facility]INE 230 [place] [address] Yi Thompson MD [address] [place] [address] Culture, Urine, Routine, Comprehensive Metabolic Panel Social [...] Description 10/10/2025 9:15 AM EST Office Visit [facility] [address] [place] [address] [phone] Yi Thompson MD [address] [place] [address] documented as of this encounter Goals Goal [...] documented as of this encounter Care Teams Division Sales Manager Relationship Specialty Start Date End Date Yi Thompson MD [address] [place] [address] PCP - General Internal Medicine 08/20/23 documented as of this encounter
--- OUTSIDE RECORDS SUMMARY | 2025-08-16 14:38 | XMS_ITS | Encounter Summary ---
Author Organization [employer] Address [address] [place] [address] Care Team Providers Care Custom Harvester Name Role Phone Yi Thompson MD Primary Care Pro vider Reason for Visit * Reason Comments Med Change Request Encounter Details Date Type Department Care Team ([facility] st Contact Info) Description 11/11/2023 Refill [facility]INE 230 [place] [address] [employer] [address] [place] [address] Viral upper respiratory illness Social History Tobacco [...] 9:15 AM EST Office Visit [facility] MEDICINE [address] [place] [address] Yi Thompson MD [address] [place] [address] documented as of this encounter Visit Diagnoses Diagnosis Viral upper respiratory illness documented in this encounter Care Teams Custom Harvester Relationship Specialty Start Date End Date Yi Thompson MD [address] [place] [address] PCP - General Internal Medicine 08/20/23 documented as of this encounter
--- OUTSIDE RECORDS SUMMARY | 2025-08-16 14:39 | XMS_ITS | Encounter Summary ---
Author Organization [employer] Address [address] [place] [address] Care Team Providers Care Logging Superintendent Name Role Phone Juliet Bird Primary Care Provider Yi Jessica MD Primary Care Pro vider Reason for Visit * Reason Onset Date Comments triage 02/27/2023 Encounter Details Date Type Department Care Team (Late st Contact Info) Description 02/27/2023 Telephone [facility]ICINE 230 [place] [address] Juliet Bird FNP triage Social History Tobacco [...] 02/27/2023 4:58 PM EDT Triage call with [employer] [employer] Engineer [place] [id number] Pt reports a couple of days of [...] now The caller accepted this outcome speaks swedish documented in this encounter Plan of Treatment Upcoming Encounters Date Type Department Care Team (Late st Contact Info) Description 10/10/2025 9:15 AM EST Office Visit [facility] MEDICINE [address] [place] [address] Yi Thompson MD [address] [place] [address] documented as of this encounter Visit Diagnoses Not on filedocumented in this encounter Care Teams Logging Superintendent Relationship Specialty Start Date End Date Juliet Bird FNP PCP - General Family Medicine 01/22/23 08/19/23 Yi Thompson MD [address] [place] [address] PCP - General Internal Medicine 08/20/23 documented as of this encounter
--- OUTSIDE RECORDS SUMMARY | 2025-08-16 14:39 | XMS_ITS | Clinical Summary ---
Author Organization [employer] Address [address] [place] [address] [facility] [place] [address] Care Team Providers Care Sandstone Splitter Name Role Phone Yi Thompson MD Primary [...] NOON 30 tablet 2 07/24/20 25 Active sulfamethoxazo le-trimethopri m (Bactrim DS) 800-160 MG tabletIndicati ons:Paronychia of finger of right hand Take 1 tablet by mouth 2 times daily for 5 days. 10 tablet 08/16/20 25 025 Active montelukast (Singulair) 10 MG tablet Take [...] for PT once patient returns from [facility] in January. Chest pain at rest [...] 09/17/2023 Forgetfulness 04/15/2023 Overview (08/20/2023): Seen at [facility] on 07/15/2020 for right sided facial [...] vascular referral once patient returns from [facility] in January. Irritable bowel syndrome with [...] improve. 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 04/09/2023 04/15/2023 Thyroid cancer ([facility]/HCC) 01/04/2019 Multiple joint pain 09/03/2018 04/15/20 Calcaneal spur 08/05/2018 09/17/2023 Gastroesophageal reflux disease 05/01/2014 04/15/2023 Encounters Date Type Department Care Team Description 08/16/2025 11:15 AM EDT Office Visit [address] [address] Tere Thompson NP Paronychia of finger of right hand (Primary Dx) 08/16/2025 Travel 08/15/[address] [address] Yi Thompson MD Nurse Triage 07/25/2025 Orders Only GENERIC EXTERNAL DATA DEPARTMENT Provider, Generic External Data 07/23/2025 Refill [facility] [address] [place] [address] Yi Thompson MD 07/21/2025 Orders Only [facility] External Provider, [facility] 07/20/[address] [address] Yi Thompson MD Call Back Request 07/03/2025 Results Follow-Up [address] [address] Leticia Plunkett ANP CBC auto differential 06/28/[address] [address] Yi Thompson MD oct recall 06/28/[address] [address] Yi Thompson MD Imaging Orders 06/28/2025 Refill [facility] [address] [place] [address] Yi Thompson MD Type 2 diabetes mellitus without complication, without long-term current use of insulin ([facility]) 06/26/2025 Results Follow-Up [address] [address] Yi Thompson MD Culture, Urine, Routine, Comprehensive Metabolic Panel 06/23/2025 1:15 PM EDT Office Visit [address] [address] Cathleen Lomax CNP Flank pain (Primary Dx); Right lower quadrant pain; Urinary tract infection without hematuria, site unspecified 06/23/2025 Travel 06/22/[address] [address] Wanda Mtz [place] CHARTPREP 06/22/[address] [address] Yi Thompson MD Nurse Triage 06/09/2025 11:15 AM EDT Office Visit [address] [address] Yi Thompson MD Left arm pain (Primary Dx); Complex regional pain syndrome type 1 of both upper extremities; Hypertension, unspecified type; Type 2 diabetes mellitus without complication, without long-term current use of insulin (CMS/[facility]); Health care maintenance; Other diabetic neurological complication associated with type 2 diabetes mellitus (CMS/HCC) 06/09/2025 Telephone [facility] [address] [place] [address] Skylar Larsen, CAT [employer]ODE CREW SUPERVISOR 06/09/2025 Travel 06/08/[address] [address] Yi Thompson MD chartprep 06/02/2025 Orders Only [address] [address] Yi Thompson MD Type 2 diabetes mellitus without complication, without long-term current use of insulin (CMS/HCC) 06/02/2025 Orders Only GENERIC EXTERNAL DATA DEPARTMENT Provider, Generic External Data 05/31/2025 Results Follow-Up [facility] [address] [place] [address] Yi Thompson MD Client Education Tracking, Fecal Globin By Immunochemistry 05/26/2025 11:00 AM EDT Telemedicine [facility] [address] [place] [address] Remedios Do, Eileen Hypertension, unspecified type (Primary Dx) 05/26/2025 Orders Only [facility] [address] [place] [address] Yi Thompson MD 05/26/2025 Orders Only [facility] [address] [place] [address] Yi Thompson MD 05/26/2025 Results Follow-Up [facility] [address] [place] [address] Yi Thompson MD CBC auto differential, Reticulocyte Count, Hemoglobin A1c, Additional followed-up results: 6 05/26/2025 Orders Only [facility] [address] [place] [address] Yi Thompson MD from Last 3 Months [...] Mass Index 25.36 08/16/2025 11:30 AM EDT Plan of Treatment Upcoming Encounters Date Type Department Care Team (Late st Contact Info) Description 10/10/2025 9:15 AM EST Office Visit [facility] [address] [place] [address] [phone] Yi Thompson MD [address] [place] [address] Health Maintenance Due Date Last Done Comments CT Colonography 1960 FIT DNA/Cologuard 1960 Sigmoidoscopy 1960 Diabetes: Foot Exam 1968 RSV Patients and Patients Aged 60 years or older (1 - Risk 60-74 years 1-dose series) 2018 COVID-19 Vaccine ( season) 2025 01/31/2022, 02/05/2021, 01/08/2021 Influenza Vaccine (#1) 2025 3, 10/14/2022, 11/01/2021, Additional history exists Diabetes: Hemoglobin A1C 08/26/2025 07 025, 04/26/2025, 10/28/2024, Additional history exists Colonoscopy [...] PM EDT Narrative 08/02/2025 4:[address] PM [address]T [address] [address] [address] Scan Report Signed Patient: Sapna Herzog MR#: M [id number] : 1960 Acct:[id number] Age/Sex: 64 / F ADM Date: 08/02/25 Loc: HO.CT Attending Dr: Cathleen Lomax HAND ASSEMBLER FOR PULLER OVER Ordering Physician: Cathleen Lomax NP Date of Service: 08/02/25 Procedure(s): CT abdomen pelvis wo IV con Accession Number(s): [id number] cc: Yi Thompson MD; Cathleen Lomax HAND ASSEMBLER FOR [employer] Report Number: [id number]: Total DLP = 385.00 mGy-cm Reason for [...] Augusto Alvarez MD 08/02/2025 04:24 PM EDT RP Dictated By: Augusto Alvarez MD Signed By: <Electronically signed by Augusto Alvarez MD in OV> 08/02/25 1624 DD/ 1547 TD/TT: 08/02/25 1607 Brewery Cellar Worker: Procedure Note Donotuseinterpreter, Image - 08/02/[address] [place] [address] [address] Scan Report Signed Patient: Sapna Herzog CMR#: M [id number] : 1960cct:[id number] Age/Sex: 64 / FADM Date: 08/02/25 Loc: HO.CT Attending Dr: Cathleen Lomax NP Ordering Physician: Cathleen Lomax NP Date of Service: 08/02/25 Procedure(s): CT abdomen pelvis wo IV con Accession Number(s): [id number] cc: Yi Thompson MD; Cathleen Lomax NP Report Number: [id number]: Total DLP = 385.00 mGy-cm Reason for [...] 08/02/25 1624 DD/ 1547 TD/TT: 08/02/25 1607 Brewery Cellar Worker: [facility] CT PROCEDURES Edited Result - Final * Culture, Urine, Routine (07/25/2025 9:13 AM EDT) Only the most recent of2 resultswithin the time period is included. Urine Urine specimen from urinary conduit / Unknown 07/25/2025 9:13 AM EDT 07/25/2025 9:19 AM EDT Comment:Urine Cath Narrative [facility] - 07/27/2025 8:31 AM EDT Urine Culture No growth. Specimen Source: Urine Catheterized us Generic External Data Provider LAB MICROBIOLOGY - GENERAL ORDERABLES Final Result Performing Organization Address [facility] Co de Phone Number [facility] [address] [place] [phone] * (ABNORMAL) Glucose, Whole Blood (07/25/2025 7:11 AM EDT) Only the most recent of2 resultswithin the time period is included. Glucose, Whole Blood 172(H) 60 - 115 mg/dL [facility] Comment:METER #: [id number] 07/25/2025 7:11 AM EDT 07/25/2025 7:15 AM EDT us Generic External Data Provider LAB BLOOD ORDERAB LES Final Result Performing Organization Address [facility] de Phone Number [facility] [address] [place] [phone] * US Pelvis Transvaginal (07/21/2025 2:48 PM EDT) Anatomical Region Laterality Modality Pelvis Ultrasound 07/21/2025 2:48 PM EDT Narrative 07/21/2025 2:49 PM EDT [address] [address] Ultrasound Report Signed Patient: Sapna Herzog MR#: M [id number] : 1960 Acct:[id number] Age/Sex: 64 / F ADM Date: 07/21/25 Loc: HO.US Attending Dr: Domenic Chew MD Ordering Physician: Domenic Chew MD Date of Service: 07/21/25 Procedure(s): US pelvic and transvaginal Accession Number(s): [id number] cc: Yi Thompson MD; Domenic Chew MD [...] signed by Tereza Allen MD in OV> 07/21/25 1448 DD/ 47 TD/TT: 07/21/251447 Brewery Cellar Worker: Procedure Note Donotuseinterpreter, Image - 07/21/2025 [place] [address] Ultrasound Report Signed Patient: Sapna Herzog CMR#: M [id number] : 9Acct:[id number] Age/Sex: 64 / FADM Date: 07/21/25 Loc: . Attending Dr: Domenic Chew MD Ordering Physician: Domenic Chew MD Date of Service: 07/21/25 Procedure(s): US pelvic and transvaginal Accession Number(s): [id number] cc: Yi Thompson MD; Domenic Chew MD [...] signed by Tereza Allen MD in OV> 07/21/25 1448 DD/ 47 TD/TT: 07/21/251447 Brewery Cellar Worker: us [facility] External Provider IMG US PROCEDURES Final Result * MR Brain w/o Contrast (07/07/2025 4:44 PM EDT) Anatomical Region Laterality Modality Brain Magnetic Resonan ce 07/07/2025 4:44 PM EDT Narrative 07/07/2025 6:03 PM EDT [place] [address] Magnetic Resonance Report Signed Patient: Sapna Herzog MR#: M [id number] : 1960 Acct:[id number] Age/Sex: 64 / F ADM Date: 07/07/25 Loc: HO.MRI Attending Dr: Yi Cleary MD Ordering Physician: Yi Thompson MD Date of Service: 07/07/25 Procedure(s): MR head/brain wo con Accession Number(s): [id number] cc: Yi Thompson MD EXAMINATION: MR BRAIN [...] 07/07/25 1800 DD/ 1644 TD/TT: 07/07/25 1701 Brewery Cellar Worker: Procedure Note Donotuseinterpreter, Image - 07/07/2025 [place] [address] Magnetic Resonance Report Signed Patient: Sapna Herzog CMR#: M [id number] : 9Acct:[id number] Age/Sex: 64 / FADM Date: 07/07/25 Loc: HO.MRI Attending Dr: Yi Cleary MD Ordering Physician: Yi Thompson MD Date of Service: 07/07/25 Procedure(s): MR head/brain wo con Accession Number(s): [id number] cc: Yi Thompson MD EXAMINATION: MR BRAIN [...] 07/07/25 1800 DD/ 1644 TD/TT: 07/07/25 1701 Brewery Cellar Worker: Yi Cleary MD IMG MRI PROCEDURE S Final Result * (ABNORMAL) CBC auto differential (06/23/2025 1:42 PM EDT) Only the most recent of2 resultswithin the time period is included. White Blood Count 6.8 4.8 - 10.8 X10*3/uL [facility] Red Blood Count 4.67 4.20 - 5.50 X10*6/uL [facility] Hemoglobin 11.1(L) 12.0 - 16.0 g/dl [facility] Hematocrit 35.0(L) 37.0 - 47.0 % [facility] Mean Corpuscular Volume 74.9(L) 80.0 - 98.0 fL [facility] Mean Corpuscular Hemoglobin 23.8(L) 27.0 - 33.0 pg [facility] Mean Corpuscular HGB Conc 31.7 31.0 - 35.0 g/dl [facility] Red Cell Distribution Width 15.7 11.0 - 16.0 % [facility] Platelet Count 285 160 - 400 X10*3/uL [facility] Mean Platelet Volume 10.6 9.4 - 12.3 fL [facility] Neutrophils Percent Auto 60.2 45 - 73 % [facility] Imm Gran Pct Auto 0.4 0.0 - 0.4 % [facility] Lymphocytes Percent Auto 26.0 20 - 40 % [facility] Monocytes Percent Auto 10.3 2 - 11 % [facility] Eosinophils Percent Auto 1.9 0 - 4 % [facility] Basophils Percent Auto 1.2 0 - 2 % [facility] NRBC Pct Auto 0.0 0.0 - 0.2 /100WBC [facility] Neutrophils Absolute Auto 4.1 2.0 - 8.3 x10*3/uL [facility] Imm Gran Abs Auto 0.03 0.00 - 0.03 X10*3/uL [facility] Lymphocytes Absolute Auto 1.8 1.2 - 4.9 X10*3/uL [facility] Monocytes Absolute Auto 0.7 0.1 - 1.2 X10*3/uL [facility] Eosinophils Absolute Auto 0.1 0.0 - 0.4 X10*3/uL [facility] Basophils Absolute Auto 0.1 0.0 - 0.2 X10*3/uL [facility] NRBC Abs Auto 0.000 0.0 - 0.012 X10*3/uL [facility] Blood Venous blood specimen / Unknown 06/23/2025 1:42 PM EDT 06/23/2025 4:12 PM EDT Leticia Plunkett [facility] LAB BLOOD ORDERABLES Final Resul t [facility] [address] [place] [phone] * Comprehensive Metabolic Panel (06/23/2025 1:42 PM EDT) Only the most recent of2 resultswithin the time period is included. Sodium 140 135 - 145 mmol/L [facility] Potassium 3.9 3.3 - 5.1 mmol/L [facility] Chloride 104 96 - 108 mmol/L [facility] Carbon Dioxide 26 22 - 29 mmol/L [facility] Anion Gap 14 12 - 20 [facility] Urea Nitrogen (BUN) 16 9 - 16 mg/dL [facility] Creatinine, Serum 0.77 0.5 - 1.4 mg/dL [facility] Estimated Glomerular Filt Rate >60 [facility] Comment:Chronic Kidney Disea se: Estimated GFR < 60 mL/min/1.50u2Usscwk Kidney Disease: Estimated GFR < 15 mL/min/1.73m2 Glucose 101 60 - 115 mg/dL [facility] Calcium 9.1 8.4 - 10.2 mg/dL [facility] Bilirubin, Total 0.2 0.0 - 1.0 mg/dL [facility] Aspartate Amino Transferase 30 5 - 31 U/L [facility] Alanine Aminotransferase 28 0 - 31 U/L [facility] Total Protein 7.7 6.5 - 8.0 g/dL [facility] Albumin Level 4.6 3.5 - 5.0 g/dL [facility] Alkaline Phosphatase 85 39 - 117 U/L [facility] Blood Venous blood specimen / Unknown 06/23/2025 1:42 PM EDT 06/23/2025 4:12 PM EDT [facility] LAB BLOOD ORDERABLES Cammy l Result [facility] [address] [place] [phone] * (ABNORMAL) POCT Urinalysis (06/23/2025 1:18 [...] Expiration Date Urine 06/23/2025 1:18 PM EDT [facility] POINT OF CARE TEST ENTER/ EDIT ORDERABLES Final Result * FL Guidance in OR (06/02/2025 10:25 AM EDT) Anatomical Region Laterality Modality X-Ray Angiograph y 06/02/2025 10:2 5 AM EDT Narrative 06/02/2025 11:06 AM EDT [address] [address] Fluoroscopy Report Signed Patient: Sapna Herzog MR#: M [id number] : 1960 Acct:[id number] Age/Sex: 64 / F ADM Date: 06/02/25 [facility] Attending Dr: Jcarlos Gee MD Ordering Physician: Jcarlos Gee MD Date of Service: 06/02/25 Procedure(s): FL guidance in OR Accession Number(s): [id number] cc: Jcarlos Gee MD; Yi Thompson MD [...] 06/02/25 1103 DD/ 1025 TD/TT: 06/02/25 1043 Brewery Cellar Worker: Procedure Note Donotuseinterpreter, Image - 06/02/[address] [address] Fluoroscopy Report Signed Patient: Sapna Herzog CMR#: M [id number] : 9Acct:[id number] Age/Sex: 64 / FADM Date: 06/02/25 Loc: [facility] Attending Dr: Jcarlos Gee MD Ordering Physician: Jcarlos Gee MD Date of Service: 06/02/25 Procedure(s): FL guidance in OR Accession Number(s): [id number] cc: Jcarlos Gee MD; Yi Thompson MD [...] 06/02/25 1103 DD/ 1025 TD/TT: 06/02/25 1043 Brewery Cellar Worker: [facility] External Provider IMG IR PROCEDURES Final Result * Albumin, Random Urine W/Creatinine (05/26/2025 10:35 AM EDT) Creatinine, Urine 84.43 mg/dL [facility] Microalbumin Urine <5.0 mg/L [facility] Microalbum Creatinine Ratio Ur TNP <30 ug/mg cr [facility] Comment:Unable to calculate albumin/creatinine ratio due to lowmicroalbumin or creatinine result. 05/26/2025 10:3 5 AM EDT 05/26/2025 11:11 AM EDT us Yi Cleary MD LAB URINE ORDERAB LES Final Result Performing Organization Address [facility] Co de Phone Number [facility] [address] [place] [phone] * (ABNORMAL) Iron And Total Iron Binding Capacity (05/26/2025 10:35 AM EDT) [facility] Iron 49 30 - 160 mcg/dL [facility] Total Iron Binding Capacity 356 228 - 428 mcg/dL [facility] Percent Iron Saturation 14(L) 15 - 50 % [facility] Unsaturated Iron Binding 307 ug/dL [facility] 05/26/2025 10:3 5 AM EDT 05/26/2025 11:17 AM EDT us Yi Cleary MD LAB BLOOD ORDERAB LES Final Result Performing Organization Address [facility] Co de Phone Number [facility] [address] [place] [phone] * (ABNORMAL) Reticulocyte Count (05/26/2025 10:35 AM EDT) [facility] Reticulocytes Absolute 0.056 0.026 - 0.095 X10*6/uL [facility] Immature Retic Fraction 15.2 3.0 - 15.9 % [facility] Retic HGB Equivalent 26.9(L) 30.0 - 35.0 pg [facility] Reticulocyte Percent 1.2 0.5 - 1.8 % [facility] 05/26/2025 10:3 5 AM EDT 05/26/2025 11:19 AM EDT us Yi Cleary MD LAB BLOOD ORDERAB LES Final Result Performing Organization Address [facility] Co de Phone Number [facility] [address] [place] [phone] * (ABNORMAL) Hemoglobin A1c (05/26/2025 10:35 AM EDT) Hemoglobin A1c 7.1(H) <6.0 % [facility] Comment:Hemoglobin A1C Refer ence Range Adults: 4.8 - 6.0 % Non diabetic: < 6.0 % Goal: < 7.0 %Additional Action Suggested: > 8.0 %Note: Hemoglobin A1c results are invalid for patients with abnormal amounts of HbF. Blood transfusions may impact the HbA1c concentration in the patient sample. Estimated Average Glucose 157 mg/dL [facility] Comment:eAG = Estimated ave rage glucose which is %A1C expressed asaverage glucose, using the formula of the K7Z-JzsyzibQzeqjbd Glucose study (ADAG), Diabetes Care, Vol.31,#8,Jun. 2007 05/26/2025 10:3 5 AM EDT 05/26/2025 11:19 AM EDT us Yi Cleary MD LAB BLOOD ORDERAB LES Final Result [facility] [address] [place] [phone] * (ABNORMAL) Ferritin (05/26/2025 10:35 AM EDT) Ferritin 9(L) 10 - 250 ng/mL [facility] 05/26/2025 10:3 5 AM EDT 05/26/2025 11:17 AM EDT us Yi Cleary MD LAB BLOOD ORDERAB LES Final Result [facility] [address] [place] [phone] * Vitamin B12 (05/26/2025 10:35 AM EDT) Vitamin B12 476 200 - 900 pg/mL [facility] Comment:NORMAL 200-900 PG/ML INDETERMINATE 160-199 PG/ML DEFICIENT < 160 PG/ML 05/26/2025 10:3 5 AM EDT 05/26/2025 11:17 AM EDT us Yi Cleary MD LAB BLOOD ORDERAB LES Final Result Performing Organization Address [facility]/ZIP Co de Phone Number [facility] [address] [place] [phone] * (ABNORMAL) Lipid Panel, Standard (05/26/2025 10:35 AM EDT) Triglycerides 221(H) <150 mg/dL [facility] Comment:Desirable Triglyceri de: less than 150 mg/dLBorderline High Triglyceride 150-199 mg/dLHigh Triglyceride: 200-499 mg/dLVery High Triglyceride: greater than or equal to 5OO mg/dL Cholesterol 243(H) <200 mg/dL [facility] Comment:Desirable Cholestero l: less than 200 mg/dLBorderline High Cholesterol: 200-239 mg/dLHigh Cholesterol: greater than 239 mg/dL LDL Cholesterol Calculated 157(H) <100 mg/dL [facility] Comment:Desirable LDL: less than 100 mg/dLNear Optimal/Above Optimal LDL: 110- 129 mg/dLBorderline High LDL: 130-159 mg/dLHigh LDL: 160-189 mg/dLVery High LDL: greater than or equal to 190 mg/dL HDL Cholesterol 42 >40 mg/dL [facility] Comment:Desirable HDL: great er than 40 mg/dL Note: This HDL assay may give artificially low results in patients with liver disease. 05/26/2025 10:3 5 AM EDT 05/26/2025 11:17 AM EDT Yi Cleary MD LAB BLOOD ORDERAB LES Final Result Performing Organization Address City/[facility]/ZIP Co de Phone Number [facility] [address] [place] [phone] * Client Education Tracking (05/26/2025 12:00 AM EDT) Pathologist [facility] Client Education Tracking [facility] Comment: The Requisition we received did not include a [employer] account number. To prevent delays in testing [...] BLOOD BANK TE ST ORDERABLES Final Result Performing Organization Address [facility] de Phone Number [address], [place] [phone] [facility] [phone] * Fecal Globin By Immunochemistry (05/26/2025 12:00 AM EDT) Pathologist [facility] Fecal Globin By Immunochemistry SEE NOTE [employer] [facility] Comment: FECAL GLOBIN BY IMMUNOCHEMISTRY Micro Number: [id number] Test Status: Final Specimen Source: Insure () [...] STOOLS ORDERABLES Final Result Performing Organization Address [facility] de Phone Number [address], [place] [phone] [employer] [place] [employer] [facility] [phone] * BI US Breast Limited Left (02/07/2025 10:44 AM EDT) Anatomical Region Laterality Modality Breast Left Ultrasound 02/07/2025 10:4 4 AM EDT Narrative 02/07/2025 11:07 AM EDT [place] [address] [place] [address] Ultrasound Report Signed Patient: Sapna Herzog MR#: M [id number] : 1960 Acct:[id number] Age/Sex: 64 / F ADM Date: 02/07/25 Loc: HO.MAMMO Attending Dr: Peter Tate CNM Ordering Physician: PETER TATE CNM Date of Service: 02/07/25 Procedure(s): US breast LT limited mamm only Accession Number(s): [id number] cc: Yi Thompson MD; PETER TATE CNM [...] 02/07/25 1104 DD/ 1044 TD/TT: 02/07/25 1058 Brewery Cellar Worker: Procedure Note Donotuseinterpreter, Image - 02/07/2025 [place] [facility] [address] [place], [place] [address] Ultrasound Report Signed Patient: Sapna Herzog CMR#: M [id number] : 1960cct:[id number] Age/Sex: 64 / FADM Date: 02/07/25 Loc: MAMMO Attending Dr: Petre Tate CNM Ordering Physician: PETER TATE CNM Date of Service: 02/07/25 Procedure(s): US breast LT limited mamm only Accession Number(s): [id number] cc: Yi Thompson MD; PETER TATE CNM [...] 02/07/25 1104 DD/ 1044 TD/TT: 02/07/25 1058 Brewery Cellar Worker: Peter Tate CNM IM US PROCEDURES Edited Result - Final * [...] ORDERAB LES Final Result [facility] [address] [place] [phone] * THINPREP PAP (10/25/2020 10:02 AM [...] along with historic and current clinical information. Extractor Operator Solvent Process : SEE COMMENT [facility] Comment: QUIN[place], CT(ASCP) CT screening location: [place] [address] Interpretation/R esult: Negative for intraepithelial lesion or malignancy. [facility] LMP: NONE GIVEN [facility] Prev. BX: NONE GIVEN [facility] Prev. PAP: NONE GIVEN [facility] SOURCE: None given [facility] Statement Of Adequacy: SEE COMMENT [facility] Comment: Satisfactory for evaluation. Endocervical/transformation zone component present. 10/25/2020 10:0 2 AM EST Peter Tate [employer] LAB PATHOLOGY ORDERABLES Final Result Performing Organization Address [facility] Number [facility] Anywhere [address] * HPV mRNA E6/E7 (10/25/2020 10:02 AM EST) HPV nRNA E6/E7 Not Detected Not Detected [facility] Comment: This test was performed using the APTIMA HPV Assay ([employer] This assay detects E6/E7 viral messenger RNA (mRNA) from 14 high-risk HPV types (16,18,31,33,35,39,45,51,52,56,58,59,66,68). The analytical performance characteristics of this assay have been determined by [employer]. The modifications have not been cleared or approved by the FDA. This assay has been validated pursuant to the CLIA regulations and is used for clinical purposes. 10/25/2020 10:0 2 AM EST Peter Tate [employer] LAB BLOOD ORDERABLES Cammy l Result Performing Organization Address [facility] de Phone Number [facility] Anywhere [address] from Last 3 Months or Most Recently Relevant to Health Maintenance Insurance [employer] Care Teams Sandstone Splitter Relationship Specialty Start Date End Date Yi Thompson MD [address] [place] [address] 13944 PCP - General Internal Medicine 08/20/23
== END 2025-08-16 14:24 | disposition home or self-care (01) ==
LOC: HO.HUSH 13:25
PROVIDERS: PCP Student in an Organized Health Care Education/Training Program; Visit Provider Urology
DX: R10.2 Pelvic and perineal pain (principal); G89.29 Other chronic pain; G89.4 Chronic pain syndrome; M46.1 Sacroiliitis, not elsewhere classified; R35.0 Frequency of micturition; Q63.8 Other specified congenital malformations of kidney; N30.10 Interstitial cystitis (chronic) without hematuria
CPT/HCPCS: 99213

== ENCOUNTER → 2025-08-16 13:24 | Outpatient (BNVA) | payer OTHER, SELFPAY | PROVIDERS: PCP Student in an Organized Health Care Education/Training Program; Visit Provider Urology | DX: N30.10 Interstitial cystitis (chronic) without hematuria (principal); Q63.8 Other specified congenital malformations of kidney; R35.0 Frequency of micturition; M46.1 Sacroiliitis, not elsewhere classified; R10.20 Pelvic and perineal pain unspecified side; G89.29 Other chronic pain; Z13.9 Encounter for screening, unspecified | CPT/HCPCS: 51798; 81003 ==

== ENCOUNTER 2025-08-21 10:00 | Outpatient (RCR) | payer OTHER, SELFPAY ==
--- NOTE | 2025-07-18 09:51 | MHC.PT.EP ---
[facility] [place] Office [place] Office [place] Office [address] Linda Kessler [address] [phone] F: [phone] F: [phone] F: [phone] F: [phone] Physical Therapy Plan of Care Date of Evaluation: 07/18/25 Date of Surgery: N/A Diagnosis: myofascial pain *cervical dystonia (RL) Assessment: pt is a pleasant, slightly confused 64 y/o female presenting to physical therapy w/ referring diagnosis of myofascial pain *cervical dystonia. She became tearful during the evaluation d/t pain and not wanting to feel like a burden. Impairments include pain, decreased range of motion, decreased strength, impaired functional mobility, impaired postural awareness, and altered ambulation mechanics. pt is a fair candidate for skilled PT due to age, potential remediation of impairments, typical disease/condition progression and prognosis, comorbidities, and motivation. pt would benefit from skilled PT intervention to provide a tailored strengthening and stretching exercise program, functional training, gait training, postural re-training, neuromuscular re-education, modalities as needed for pain, equipment safety demonstration. Frequency and Duration: The patient will be seen 2x/wk for 4 wks Short Term Goals: pt will be I w/ HEP to promote self-management of condition. pt will demo proper sitting posture w/ lumbar roll to promote neutral spine w/ seated ADLs. Usp Goals: pt will report a statistically significant improvement in self-reported outcome measure, NDI, to promote return to PLOF. pt will improve cervical flexion by at least 10* to promote ease in reading. Treatment Plan: Modalities to reduce pain, spasms and effusion. Manual therapy to restore motion and function. Therapeutic exercise to improve strength and flexibility. Neuromuscular re-education for posture and balance. Therapeutic activities to return to functional activities of daily living. Electronically signed by: Rasheeda Segovia PT, DPT Please sign and return to therapist. Thank you for your referral.
--- NOTE | 2025-08-21 10:34 | MHC.PT.DC ---
[facility] [place] [facility] [place] [facility] [address] Linda Kessler 140 [facility] [phone] F: [phone] F: [phone] F: [phone] F: [phone] Physical Therapy Discharge Report Diagnosis: myofascial pain *cervical dystonia (RL) Date of Surgery: N/A Date of Evaluation: 07/18/25 Date of Discharge: Treatments to Date: 6 Cancellations to Date: 0 No Shows to Date: 0 Discharge Status: Discharge Summary: The patient overall has been reporting improvement of her neck, bilateral shoulder and bilateral elbow pain. She is independent with her home exercise program and is discharged from this physical therapy plan of care. She was distributed an updated handout to maximize compliance post-discharge. Electronically signed by: Please sign and return to therapist. Thank you for your referral.
== END 2025-08-21 10:35 | disposition home or self-care (01) ==
LOC: HO.PT 10:00
PROVIDERS: PCP Student in an Organized Health Care Education/Training Program; Visit Provider Orthopaedic Surgery
DX: M79.18 Myalgia, other site (principal); G24.3 Spasmodic torticollis
CPT/HCPCS: 97110; 97140; 97162

== ENCOUNTER 2025-08-25 13:18 | Day surgery (SDC) | payer OTHER, SELFPAY ==
[2025-08-23 13:09] VITALS: BMI 25.3
--- NOTE | 2025-08-24 10:51 | HO.ANESPROP2 ---
Documented by User: July Ivy NP 08/24/25 10:52 HPI - Anesthesia Eval Consult details Narrative: 64yo F for Colonoscopy Anesthesia Pre-Procedure Meds Is the patient on any of the following meds?: GLP1/DPP4 PMFSH Active Problems Active Problems: All Active Problems Headaches, cluster (Acute) Abnormal MRI, cervical spine (Acute) Sacroiliac joint dysfunction of right side (Acute) Carpal tunnel syndrome of right wrist (Acute) Chronic interstitial cystitis (Acute) Bladder pain (Acute) Urinary frequency (Acute) Chronic lower back pain (Acute) Excessive daytime sleepiness (Acute) Chronic pain syndrome (Acute) Cubital tunnel syndrome, bilateral (Acute) Bilateral numbness and tingling of arms and legs (Acute) Fatigue due to sleep pattern disturbance (Acute) Spasmodic torticollis (Acute) Hx of migraines (Acute) Anemia (Acute) Headache (Acute) Cognitive disorder (Acute) Cervical dystonia (Acute) Spondylosis of lumbar region without myelopathy or radiculopathy (Acute) Chronic right SI joint pain (Acute) Sacroiliitis (Acute) Disc degeneration, lumbar (Acute) Vaginitis (Acute) Lumbar radiculopathy (Acute) Back pain (Acute) Fall (Acute) Abnormal stress ECG (Acute) Chest discomfort (Acute) Duplex kidney (Acute) Acute UTI (Acute) Thumb locking (Acute) Palpitations (Acute) Non-cardiac chest pain (Acute) Failure of spinal cord stimulator (Acute) Chronic cystitis (Acute) Varicose veins of right lower extremity with inflammation (Acute) History of thymectomy (Acute) Pulmonary nodules (Acute) Controlled diabetes mellitus with diabetic polyneuropathy (Acute) De Quervain's tenosynovitis, left (Acute) Patellofemoral arthritis of left knee (Acute) Patellofemoral arthritis of right knee (Acute) Chronic pelvic pain in female (Acute) Dyspareunia in female (Acute) Myofascial pain (Acute) Atrophic vaginitis (Acute) Osteoarthritis of right knee (Acute) CRPS (complex regional pain syndrome type I) (Acute) History of thyroid cancer (Acute) Constipation by delayed colonic transit (Acute) Gastritis (Acute) Hypertension (Acute) Dyslipidemia (Acute) Post-surgical hypothyroidism (Acute) Primary thyroid cancer (Acute) Vitamin D deficiency (Acute) Past Medical History Medical History Type 2 diabetes mellitus with polyneuropathy Bladder pain Headache Cognitive disorder Cervical dystonia Palpitations Non-cardiac chest pain Pelvic pain Leg pain Lower abdominal pain Gross hematuria Toe pain Right knee pain Effusion, right knee Dysuria Pelvic pain in female Hematuria Mass of spine Hematuria DM2 (diabetes mellitus, type 2) Nail deformity Paronychia Failure of spinal cord stimulator Thymoma Pulmonary nodules Thyroid cancer Blood in urine Constipation by delayed colonic transit Tubular adenoma of colon Gastritis Hypertension Dyslipidemia Post-surgical hypothyroidism Primary thyroid cancer Vitamin D deficiency Family History Family History Father Stroke Heart attack Mother Diabetes mellitus Family/Other Family history of cancer Sister Stomach cancer Family/Other Thyroid cancer Family history of problems with anesthesia: No Surgical History Surgical History History of thymectomy History of back surgery Hx of colonoscopy Hx of thyroidectomy Hx of hernia repair Hx of section Hx of hysterectomy History of esophagogastroduodenoscopy (EGD) History of Problems with Anesthesia: No Social History Social History Household Members: Spouse, Family and Other Household Members Other:: grandson Housing: Apartment Are you a primary hospice patient care secretary to a significant other at home: No Do you presently have visiting nurse or other home services: No Alcohol intake: former Comment: socially Patient Tobacco Use Status: Never used Tobacco Tobacco use type: Cigarette Second Hand Smoke Exposure: No Have you been hit, kicked, punched, or otherwise hurt by someone within the past year? If so, by whom?: No Are you DNR?: No Advance Directives: No Advance Directives Information Provided: Yes service: No Sexual orientation: Straight/Heterosexual Gender identity: Female Meds Allergies Allergy/AdvReac Type Severity Reaction Status Date / Time Penicillins (PENICILLINS) Allergy Intermediate HIVES Verified 08/16/25 13:29 Home Medications ?Medication ?Instructions ?Recorded ?Confirmed ?Last Taken ?Type albuterol sulfate 90 mcg/actuation 2 puff inhalation Q4-6H PRN 09/05/22 08/23/25 10/20/24 History aerosol inhaler (ProAir HFA) Wheezing metformin 500 mg tablet,extended 500 mg PO BID 11/19/23 08/23/25 07/23/25 History release 24 hr fluticasone propionate 50 1 spray intranasal BID 03/01/24 08/23/25 07/23/25 History mcg/actuation nasal spray,suspension montelukast 10 mg tablet 10 mg PO DAILY 03/01/24 08/23/25 07/23/25 History sitagliptin phosphate 100 mg 100 mg PO DAILY 10/19/24 08/23/25 08/16/25 History tablet (Januvia) losartan 100 1 tab PO DAILY 12/15/24 08/23/25 07/23/25 History mg-hydrochlorothiazide 12.5 mg tablet atorvastatin 10 mg tablet 10 mg PO DAILY 04/14/25 08/23/25 07/23/25 History amitriptyline 10 mg tablet 10 mg PO BEDTIME 07/18/25 08/23/25 07/23/25 History pantoprazole 40 mg tablet,delayed 40 mg PO QAM 07/18/25 08/23/25 08/25/25 History release Exam Height,Weight and Vital Signs: Height 5 ft 5 in Weight 68.946 kg Assessment and Plan Assessment Anesthesia Assessment: Chart Reviewed Final Anesthetic Review Family History of Problems with Anesthesia: No History of Problems with Anesthesia: No Documented by User: Mp Keith MD 08/25/25 14:41 HPI - Anesthesia Eval Anesthesia Pre-Procedure Meds If yes to any meds - educate patient: Pt education - increased risk of aspiration and/or euvolemic DKA and Pt education - possibility of cancelled proc at provider's discretion PMFSH Past Medical History Medical History Type 2 diabetes mellitus with polyneuropathy Bladder pain Headache Cognitive disorder Cervical dystonia Palpitations Non-cardiac chest pain Pelvic pain Leg pain Lower abdominal pain Gross hematuria Toe pain Right knee pain Effusion, right knee Dysuria Pelvic pain in female Hematuria Mass of spine Hematuria DM2 (diabetes mellitus, type 2) Nail deformity Paronychia Failure of spinal cord stimulator Thymoma Pulmonary nodules Thyroid cancer Blood in urine Constipation by delayed colonic transit Tubular adenoma of colon Gastritis Hypertension Dyslipidemia Post-surgical hypothyroidism Primary thyroid cancer Vitamin D deficiency Functional capacity: independent ambulation Family History Family History Father Stroke Heart attack Mother Diabetes mellitus Family/Other Family history of cancer Sister Stomach cancer Family/Other Thyroid cancer Surgical History Surgical History History of thymectomy History of back surgery Hx of colonoscopy Hx of thyroidectomy Hx of hernia repair Hx of section Hx of hysterectomy History of esophagogastroduodenoscopy (EGD) Social History Social History Household Members: Spouse, Family and Other Household Members Other:: grandson Housing: Apartment Are you a primary hospice patient care secretary to a significant other at home: No Do you presently have visiting nurse or other home services: No Alcohol intake: former Comment: socially Patient Tobacco Use Status: Never used Tobacco Tobacco use type: Cigarette Second Hand Smoke Exposure: No Have you been hit, kicked, punched, or otherwise hurt by someone within the past year? If so, by whom?: No Are you DNR?: No Advance Directives: No Advance Directives Information Provided: Yes service: No Sexual orientation: Straight/Heterosexual Gender identity: Female Meds Allergies Allergy/AdvReac Type Severity Reaction Status Date / Time Penicillins (PENICILLINS) Allergy Intermediate HIVES Verified 08/16/25 13:29 Home Medications ?Medication ?Instructions ?Recorded ?Confirmed ?Last Taken ?Type albuterol sulfate 90 mcg/actuation 2 puff inhalation Q4-6H PRN 09/05/22 08/23/25 10/20/24 History aerosol inhaler (ProAir HFA) Wheezing metformin 500 mg tablet,extended 500 mg PO BID 11/19/23 08/23/25 07/23/25 History release 24 hr fluticasone propionate 50 1 spray intranasal BID 03/01/24 08/23/25 07/23/25 History mcg/actuation nasal spray,suspension montelukast 10 mg tablet 10 mg PO DAILY 03/01/24 08/23/25 07/23/25 History sitagliptin phosphate 100 mg 100 mg PO DAILY 10/19/24 08/23/25 08/16/25 History tablet (Januvia) losartan 100 1 tab PO DAILY 12/15/24 08/23/25 07/23/25 History mg-hydrochlorothiazide 12.5 mg tablet atorvastatin 10 mg tablet 10 mg PO DAILY 04/14/25 08/23/25 07/23/25 History amitriptyline 10 mg tablet 10 mg PO BEDTIME 07/18/25 08/23/25 07/23/25 History pantoprazole 40 mg tablet,delayed 40 mg PO QAM 07/18/25 08/23/25 08/25/25 History release Exam Exam Date and Time: 08/25/2025 Airway TM Dist: >3cm Loose/Missing/Broken Teeth: No Heart: normal Lungs: normal Other: normal Assessment and Plan Assessment Anesthesia Assessment: Anesthesia Plan Discussed Final Anesthetic Review NPO: Yes ASA Class: II Final Preanesthetic Review: No Changes in Pt Med Stat, Meds/Allgs Chart Reviewed, Consent Obtained/Reviewed and Anes Risks/Benef Reviewed Patient Risk: Low Procedure Risk: Low Anesthetic Plan Anesthetic Plan: MAC: Disposition: Standard PACU
[2025-08-25 13:24] VITALS: BP 144/87; PULSE 98; RESP 16; TEMP 36.9; O2SAT 97; BMI 24.4
--- NOTE | 2025-08-25 13:38 | P.HPSUR_ITS ---
Pre-Procedural Eval Section A - 24 Hr Update-Section A only Date of Service: 08/25/25 Section B - Complete if H&P > 30 days Chief Complaint: screening Details of Present Illness: Type 2 diabetes mellitus with polyneuropathy Bladder pain Headache Cognitive disorder Cervical dystonia Palpitations Non-cardiac chest pain Pelvic pain Leg pain Lower abdominal pain Gross hematuria Toe pain Right knee pain Effusion, right knee Dysuria Pelvic pain in female Hematuria Mass of spine Hematuria DM2 (diabetes mellitus, type 2) Nail deformity Paronychia Failure of spinal cord stimulator Thymoma Pulmonary nodules Thyroid cancer Blood in urine Constipation by delayed colonic transit Tubular adenoma of colon Gastritis Hypertension Dyslipidemia Post-surgical hypothyroidism Primary thyroid cancer Vitamin D deficiency Surgical History History of thymectomy History of back surgery Hx of colonoscopy Hx of thyroidectomy Hx of hernia repair Hx of section Hx of hysterectomy History of esophagogastroduodenoscopy (EGD) Present Medications: see Short Stay Collaborative assessment Allergies: Allergies Allergy/AdvReac Type Severity Reaction Status Date / Time Penicillins (PENICILLINS) Allergy Intermediate HIVES Verified 08/16/25 13:29 Review of Systems Review of Systems Comment: Ten point ROS negative Exam Exam Comment: Gen appear: No acute distress HEENT: no icterus Chest: No overt resp distress Abd: soft, nontender, nondistended Psych: Stable affect, answering questions appropriately Neuro: A/Ox3 noted to move all extremities spontaneously Ext: no peripheral edema Plan Diagnosis/Plan: Unchanged I have reviewed the history and physical and performed a pertinent physical examination on my patient. No changes have occurred unless specified. Time Spent With Patient Time: Total time managing care of this patient today ____ minutes.
[2025-08-25 13:40] LABS: Glucose, Whole Blood 129 mg/dL (60-115)
[2025-08-25] MEDS: Lactated Ringers 1,000 ML 100 ML IVCONT (13:52)
[2025-08-25 15:01] VITALS: BP 112/62; PULSE 89; RESP 20; TEMP 37.1; O2SAT 100
--- NOTE | 2025-08-25 15:02 | HO.OPN-COLON ---
Colonoscopy Operative Note Operative Note Date of Service: 08/25/25 Narrative: Procedure: Colonoscopy Indication: Screening Endoscopist: Elizabeth Jaime MD Anesthesia Provider: Dr Keith Anesthesia type: MAC Instrument: Olympus [id number]-H190L Consent: Indication, risks vs benefits, and alternatives were discussed with the patient who gave written informed consent to proceed. An bushing and broach operator was utilized to assist with the consent. EKG, pulse, pulse oximetry and blood pressure were monitored throughout the procedure. Please see anesthesia flowsheet. Procedure: The patient was brought to the procedure room and placed in the left lateral decubitus position. IV medications were administered by the anesthesia provider in attendance. A digital rectal exam was performed which was abnormal due to finding of hemorrhoids. A distal attachment cap was affixed to the tip of the colonoscope which was then inserted through the anus and advanced through the colon to the cecum at 80 cm,and terminal ileum. Appendiceal orifice and ileocecal valve were identified. Mucosa was carefully examined under high definition white light as the instrument was slowly withdrawn in a retrograde panoramic fashion. Retroflexion was performed in rectum. The procedure was not difficult. There were no immediate obvious complications. The quality of the prep was BBPS: 3+3+3 = adequate Withdrawal time 10 minutes. Limitations: No limitations. Findings: Mucosa: Normal to cecum and terminal ileum. Protruding lesions: 1 sessile polyp of size 4 mm in transverse colon. Cold snare polypectomy was performed. The polyp was completely removed and retrieved. 1 sessile polyp of size 4 mm in descending colon. Cold snare polypectomy was performed. The polyp was completely removed and retrieved.. Large internal hemorrhoids without stigmata of recent bleeding. Excavated lesions: Mild to moderate diverticulosis of sigmoid colon. Impression: 1. Normal colon and terminal ileum mucosa 2. Total of 2 polyps removed 3. Diverticulosis 4. External and internal hemorrhoids Recommendations: - Follow path results. - Repeat colonoscopy in 7 years if polyps are adenomas.
[2025-08-25 15:15] VITALS: BP 112/62; PULSE 89; RESP 20; TEMP 37.1; O2SAT 98
== END 2025-08-25 15:49 | disposition home or self-care (01) ==
PROVIDERS: PCP Student in an Organized Health Care Education/Training Program; Visit Provider Internal Medicine
PROC: 0DJD8ZZ Inspection of Lower Intestinal Tract, Via Natural or Artificial Opening Endoscopic (ICD-10-PCS; CPT 45378; principal; 2025-08-25 15:10)
DX: Z12.11 Encounter for screening for malignant neoplasm of colon (principal); K59.01 Slow transit constipation; R14.0 Abdominal distension (gaseous); K64.4 Residual hemorrhoidal skin tags; K64.8 Other hemorrhoids; K57.30 Diverticulosis of large intestine without perforation or abscess without bleeding; D12.4 Benign neoplasm of descending colon; K63.5 Polyp of colon; E11.42 Type 2 diabetes mellitus with diabetic polyneuropathy
CPT/HCPCS: 45385; 82947; 88305; J2003; J2704; J3010

== ENCOUNTER → 2025-08-25 13:18 | Outpatient (BNV) | payer OTHER, SELFPAY | PROVIDERS: PCP Student in an Organized Health Care Education/Training Program; Visit Provider Internal Medicine | DX: Z12.11 Encounter for screening for malignant neoplasm of colon (principal); D12.3 Benign neoplasm of transverse colon; D12.4 Benign neoplasm of descending colon; K57.30 Diverticulosis of large intestine without perforation or abscess without bleeding; K64.8 Other hemorrhoids | CPT/HCPCS: 45385 ==

== ENCOUNTER 2025-09-18 11:09 | Day surgery (SDC) | payer OTHER, SELFPAY ==
--- OUTSIDE RECORDS SUMMARY | 2025-08-16 11:15 | XMS_ITS | Encounter Summary ---
Author Organization [employer] Address [address] [place] [address] Care Team Providers Care Classification Case Manager Name Role Phone Yi Thompson MD Primary Care Pro vider Reason for Visit * Reason Comments sick onsite Encounter Details Date Type Department Care Team ([facility] st Contact Info) Description 08/16/2025 11:15 AM EDT Office Visit [facility] [address] [place] [address] Tere Thompson NP [address] [place] [address] Paronychia of finger of right hand (Primary [...] the past 12 months, has t he [employer], gas, oil or water company threatened to [...] 11:30 AM EDT documented in this encounter Progress Notes * Tere Thompson NP - 08/16/2025 11:15 AM EDT Images from the original note were not included. SUBJECTIVE: Sapna Garcia is a 64 y.o. female presents for sick visit. Complains of finger pain. HPI: Sapna states she had an ingrown fingernail on her right thumb which she removed 1 week ago. Came in today because of 7/10 that radiates up her arm with any touch to the area. This is hindering her function ability. Has taken ibuprofen and tylenol which help relieve her symptoms a little. Reports slight erythema of the area. Note removed ingrown nail from thumb. Denies fevers or chills. Review of Systems Constitutional: Negative. Negative for chills and fever. Respiratory: Negative for chest tightness and shortness of breath. Cardiovascular: Negative for chest pain. Gastrointestinal: Negative for abdominal pain, constipation, diarrhea and nausea. Genitourinary: Negative for dysuria. Musculoskeletal: Negative for arthralgias, back pain, myalgias and neck pain. Finger pain Skin: Negative. Negative for rash and wound. Neurological: Negative for weakness, light-headedness and headaches. Psychiatric/Behavioral: Negative for behavioral problems, confusion, decreased concentration and suicidal ideas. OBJECTIVE: Visit Vitals BP 130/82 (BP Location: Left arm, Patient Position: Sitting, BP Cuff Size: Adult) Pulse 94 Temp 97.6 ??F (36.4 ??C) (Oral) Resp 22 Ht 5' 5 (1.651 m) Wt 152 lb 6.4 oz (69.1 kg) LMP (LMP Unknown) SpO2 99% BMI 25.36 kg/m?? OB Status Hysterectomy Smoking Status Never BSA 1.78 m?? Problem List[1] Current Medications[2] Physical Exam Vitals reviewed. Constitutional: General: She is not in acute distress. Appearance: Normal appearance. She is not ill-appearing. HENT: Head: Normocephalic and atraumatic. Right Ear: External ear normal. Left Ear: External ear normal. Nose: Nose normal. Eyes: General: No scleral icterus. Extraocular Movements: Extraocular movements intact. Cardiovascular: Rate and Rhythm: Normal rate and regular rhythm. Pulses: Normal pulses. Heart sounds: Normal heart sounds. Pulmonary: Effort: Pulmonary effort is normal. No respiratory distress. Musculoskeletal: General: Normal range of motion. Right hand: Tenderness present. No swelling. Left hand: Normal. Hands: Cervical back: Normal range of motion. Comments: Swelling and tenderness on lateral aspect of right thumb. Neurological: General: No focal deficit present. Mental Status: She is alert and oriented to person, place, and time. Gait: Gait normal. Psychiatric: Mood and Affect: Mood normal. Behavior: Behavior normal. Current Medications[3] Assessment/Plan Diagnoses and all orders for this visit: Paronychia of finger of right hand Comments: -area of swelling w/o fluctuance -rx'd abx as patient is diabetic -recommend warm compress to facilitate drainage -RTC if worsening, fever, chills Orders: - sulfamethoxazole-trimethoprim (Bactrim DS) 800-160 MG tablet; Take 1 tablet by mouth 2 times daily for 5 days. 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 May repeat every 2-3 minutes if needed, alternating nostrils, until medical assistance becomes available., Disp: 2 each, Rfl: 0 pantoprazole (ProtoNix) 40 MG EC tablet, TAKE 1 TABLET BY MOUTH EVERY MORNING, Disp: 30 tablet, Rfl: 2 Senna-Time 8.6 MG tablet, Take 2 tablets by mouth in the morning., Disp: , Rfl: Spacer/Aero-Holding Chambers (OptiChamber Delisa) misc, 1 each every 4 (four) hours if needed (asthma)., Disp: 1 each, Rfl: 0 sulfamethoxazole-trimethoprim (Bactrim DS) 800-160 MG tablet, Take 1 tablet by mouth 2 times daily for 5 days., Disp: 10 tablet, Rfl: 0 [3] Current Outpatient Medications Medication Sig Dispense Refill acetaminophen (Tylenol 8 [...] twice daily. 100 each 11 amitriptyline (Elavil) 10 MG tablet Take 10 mg by mouth at bedtime. Ascorbic Acid (vitamin C) 250 MG tablet Take 1 tablet (250 mg) by mouth Once per day. 90 tablet 0 atorvastatin (Lipitor) 10 MG tablet Take 1 tablet (10 mg) by mouth Once per day. 90 tablet 0 Blood Glucose Monitoring Suppl (Contour Blood Glucose System) w/Device kit 1 Device Once per day. 1kit 0 Breo Ellipta 200-25 MCG/ACT aerosol powder cetirizine (ZyrTEC) 10 MG tablet Take 1 tablet by mouth in the morning. D3 Super Strength 50 MCG (2000 UT) capsule Take 1 capsule by mouth in the morning. estradiol (Estrace) 0.1 MG/GM vaginal cream Insert 1 g into the vagina Once per day. twice weekly 45 g 2 Ferrous Sulfate (iron) 325 (65 Fe) MG tablet Take 1 tablet (325 mg) by mouth at noon and 1 tablet (325 mg) in the evening. 180 tablet 1 glucose blood (Contour Next Test) test strip 1 each by Other route at noon and 1 each in the evening. 100 each 12 Januvia 100 MG tablet TAKE 1 TABLET BY MOUTH EVERY MORNING 90 tablet 1 Lancets 33G [facility] USE TO TEST BLOOD SUGAR TWICE A DAY 100 each 11 levothyroxine (Synthroid, Levoxyl) 112 MCG tablet Take 1 tablet by mouth in the morning. lidocaine-prilocaine (Emla) 2.5-2.5 % cream Apply topically if needed each day for mild pain. 5 g 0 losartan-hydroCHLOROthiazide (Hyzaar) 100-12.5 MG tablet Take 1 tablet by mouth Once per day. TAKE 1 TABLET BY MOUTH EVERYDAY AT NOON 90 tablet 1 metFORMIN XR (Glucophage-XR) 500 MG 24 hr tablet TAKE 1 TABLET BY MOUTH TWICE DAILY AT NOON AND IN THE EVENING WITH MEALS DO NOT BREAK, CRUSH, DISSOLVE OR CHEW 180 tablet 2 montelukast (Singulair) 10 MG tablet TAKE 1 TABLET BY MOUTH EVERYDAY AT NOON 30 tablet 2 naloxone (Narcan) 4 mg/0.1 mL nasal spray Administer 1 spray (4 mg) into affected nostril(s) if needed for opioid reversal. May repeat every 2-3 minutes if needed, alternating nostrils, until medicalassistance becomes available. 2 each 0 pantoprazole (ProtoNix) 40 MG EC tablet TAKE 1 TABLET BY MOUTH EVERY MORNING 30 tablet 2 Senna-Time 8.6 MG tablet Take 2 tablets by mouth in the morning. Spacer/Aero-Holding Chambers (OptiChamber Delisa) misc 1 each every 4 (four) hours if needed (asthma). 1 each 0 sulfamethoxazole-trimethoprim (Bactrim DS) 800-160 MG tablet Take 1 tablet by mouth 2 times daily for 5 days. 10 tablet 0 No current facility-administered medications for this visit. documented in this encounter Plan of Treatment Upcoming Encounters Date Type Department Care Team (Late st Contact Info) Description 10/10/2025 9:15 AM EST Office Visit [facility] [address] [place] [phone] Yi Thompson MD [address] [place], [place] [phone] documented as of this encounter Goals Goal [...] documented as of this encounter Care Teams Classification Case Manager Relationship Specialty Start Date End Date Yi Thompson MD [address] [place] [phone] PCP - General Internal Medicine 08/20/23 documented as of this encounter
--- OUTSIDE RECORDS SUMMARY | 2025-08-17 15:25 | XMS_ITS | Encounter Summary ---
Author Organization [employer] Address [address] [place] [address] 7 [place] [address] Care Team Providers Care Store Keeper Name Role Phone Yi [place] MD Primary [...] EST Office Visit [facility] [address] [place] [address] Yi [place] MD [address] [place] [address] 70101 documented as of this encounter Goals Goal [...] documented as of this encounter Care Teams Store Keeper Relationship Specialty Start Date End Date Yi Thompson MD [address] [place] [address] 82899 PCP - General Internal Medicine 08/20/23 documented as of this encounter
--- OUTSIDE RECORDS SUMMARY | 2025-08-17 15:26 | XMS_ITS | Encounter Summary ---
Author Organization [employer] Address [address] [place] [address] 28969 Care Team Providers Care Refining Equipment Operator Name Role Phone Yi [place] MD Primary Care Pro vider Reason for Visit * Reason Comments Med Refill Encounter Details Date Type Department Care Team ([facility] st Contact Info) Description 09/12/2024 Refill [facility] [address] [place] [address] Yi [place] MD 230 [place] [address] Type 2 diabetes mellitus without complication, without long-term current use of insulin ([facility]) Social History Tobacco Use Types Packs/Day [...] the past 12 months, has t he [employer], gas, oil or water company threatened to [...] Description 10/10/2025 9:15 AM EST Office Visit [facility] [address] [place] [address] Yi Thompson MD [address] [place] [address] 46494 documented as of this encounter Goals Goal [...] documented as of this encounter Care Teams Refining Equipment Operator Relationship Specialty Start Date End Date Yi Thompson MD [address] [place] [address] 80033 PCP - General Internal Medicine 08/20/23 documented as of this encounter
--- OUTSIDE RECORDS SUMMARY | 2025-08-17 15:26 | XMS_ITS | Encounter Summary ---
Author Organization [employer] Address [address] [place] [address] 0[address] Care Team Providers Care Business Specialist Name Role Phone Yi [place] MD Primary Care Pro vider Reason for Visit * Reason Comments Med Refill Encounter Details Date Type Department Care Team ([facility] st Contact Info) Description 06/02/2024 Refill [facility] 230 [place] [address] Yi [place] MD 230 [place] [address] Social History Tobacco Use Types Packs/Day Years [...] Description 10/10/2025 9:15 AM EST Office Visit [facility] [address] [place] [address] [phone] Yi [place] MD [address] [place] [address] [phone] documented as of this encounter Goals Goal [...] as of this encounter Care Teams Business Specialist Relationship Specialty Start Date End Date Yi Thompson MD [address] [place] [address] 45197 PCP - General Internal Medicine 08/20/23 documented as of this encounter
--- OUTSIDE RECORDS SUMMARY | 2025-08-17 15:26 | XMS_ITS | Encounter Summary ---
Author Organization [employer] Address [address] [place] [address] Care Team Providers Care Concrete Worker Name Role Phone Yi [place] MD Primary Care Pro vider Reason for Visit * Reason Comments Med Change Request Encounter Details Date Type Department Care Team ([facility] st Contact Info) Description 11/08/2023 Refill [facility] 230 [place] [address] [facility] 230 [place] [address] Viral upper respiratory illness Social History Tobacco [...] Description 10/10/2025 9:15 AM EST Office Visit [facility] [address] [place] [address] [phone] Yi Thompson MD [address] [place] [address] 6[address] documented as of this encounter Visit Diagnoses Diagnosis Viral upper respiratory illness documented in this encounter Care Teams Concrete Worker Relationship Specialty Start Date End Date Yi [place] MD [address] [place] [address] [phone] PCP - General Internal Medicine 08/20/23 documented as of this encounter
--- OUTSIDE RECORDS SUMMARY | 2025-08-17 15:26 | XMS_ITS | Encounter Summary ---
Author Organization [employer] Address [address] [place] [address] Care Team Providers Care Dental Therapist Name Role Phone Yi [place] MD Primary Care Pro vider Reason for Visit * Reason Comments Med Change Request Encounter Details Date Type Department Care Team ([facility] st Contact Info) Description 11/11/2023 Refill [facility] 230 [place] [address] [facility] 230 [place] [address] Viral upper respiratory illness Social History Tobacco [...] Description 10/10/2025 9:15 AM EST Office Visit [facility] [address] [place] [address] Yi Thompson MD [address] [place] [address] 33088 documented as of this encounter Visit Diagnoses Diagnosis Viral upper respiratory illness documented in this encounter Care Teams Dental Therapist Relationship Specialty Start Date End Date Yi [place] MD [address] [place] [address] 19684 PCP - General Internal Medicine 08/20/23 documented as of this encounter
--- OUTSIDE RECORDS SUMMARY | 2025-08-17 15:26 | XMS_ITS | Encounter Summary ---
Author Organization [employer] Address [address] [place] [address] Care Team Providers Care Electronic Installer Name Role Phone Yi [place] MD Primary Care Pro vider Reason for Visit * Reason Comments Med Refill Encounter Details Date Type Department Care Team ([facility] st Contact Info) Description 05/20/2024 Refill [facility] [address] [place] [address] Name, MD Ronny 230 [place] [address] Social History Tobacco Use Types Packs/Day Years [...] 9:15 AM EST Office Visit [facility] [address] [place] [address] [phone] Yi [place] MD [address] [place] [address] [phone] documented as of this encounter Goals Goal [...] documented as of this encounter Care Teams Electronic Installer Relationship Specialty Start Date End Date Yi [place] MD [address] [place] [address] 60291 PCP - General Internal Medicine 08/20/23 documented as of this encounter
--- OUTSIDE RECORDS SUMMARY | 2025-08-17 15:26 | XMS_ITS | Encounter Summary ---
Author Organization [employer] Address [address] [place] [address] Care Team Providers Care Social Work Lecturer Name Role Phone Yi [place] MD Primary Care Pro vider Reason for Referral * Consultation (Routine) - Authorized Specialty Diagnoses / Procedures Referred By Contac t Referred To Contact Pharmacy Diagnoses Hypertension Maria Del Carmen Meza MD 230 [place] [address] Phone: tel: fax: Referral ID Status Reason Start Date Expiration Date Visits Requested Visits Authorized [id number] Authorized Continuity of Care 04/03/2025 04/03/2026 6 6 Encounter Details Date Type Department Care Team ([facility] st Contact Info) Description 03/30/2025 Orders Only [facility] 230 [place] [address] Maria Del Carmen Meza MD 230 [place], [place] [phone] Hypertension (Primary Dx) Social History Tobacco Use [...] Visit [facility] [address] [place] [address] Yi [place] MD 230 [place] [address] Scheduled Referrals Name Type Priority Associated Diagnoses [...] AM EDT Narrative 04/12/2025 9:59 AM EDT [place] [address] Magnetic Resonance Report Signed Patient: Sapna Herzog MR#: [id number] : 1960 Acct:[id number] Age/Sex: 64 / F ADM Date: 04/12/25 Loc: HO.MRI Attending Dr: Pratik Estes MD Ordering Physician: Pratik Estes MD Date of Service: 04/12/25 Procedure(s): MR cervical spine wo con Accession Number(s): [id number] cc: Pratik Estes MD; Yi [place] MD [...] 04/12/25 0956 DD/ 0821 TD/TT: 04/12/25 0837 College Intern: Procedure Note Donotuseinterpreter, Image - 04/12/[address] [address] Magnetic Resonance Report Signed Patient: Sapna Herzog CMR#: [id number] : 9Acct:[id number] Age/Sex: 64 / FADM Date: 04/12/25 Loc: HO.MRI Attending Dr: Pratik Estes MD Ordering Physician: Pratik Estes MD Date of Service: 04/12/25 Procedure(s): MR cervical spine wo con Accession Number(s): [id number] cc: Pratik Estes MD; Yi [place] MD [...] OV> 04/12/2556 DD/ 0 TD/TT: 04/12/25 0837 College Intern: [facility] External Provider IMG MRI PROCEDURES Final Result documented in this encounter Visit Diagnoses Diagnosis Hypertension- Primary Unspecified essential hypertension documented in this encounter Additional Health Concerns Assessment Noted Time PHQ-9 Depression Total Score: 1 01/13/20 24 12:16 PM EST documented as of this encounter Care Teams Social Work Lecturer Relationship Specialty Start Date End Date Yi [place] MD [address] [place] [address] [phone] PCP - General Internal Medicine 08/20/23 documented as of this encounter
--- OUTSIDE RECORDS SUMMARY | 2025-08-17 15:26 | XMS_ITS | Encounter Summary ---
Author Organization [employer] Address [address] [place] [address] Care Team Providers Care Prism Measurer Name Role Phone Yi [place] MD Primary Care Pro vider Reason for Visit * Reason Onset Date Comments Nurse Triage 08/15/2025 Encounter Details Date Type Department Care Team ([facility] st Contact Info) Description 08/15/2025 Telephone [facility] 230 [place] [address] Yi [place] MD 230 [place] [address] Nurse Triage Social History Tobacco Use Types [...] pt to triage, spoke to pt. Through [employer] Miller Helper. pt states on Thursday, tried to cut [...] child becomes worse * Telephone Encounter - Anuardha Moctezuma - 08/15/2025 9:19 AM EDT Symptom: Fingernail Symptoms Outcome: Schedule an urgent appointment (within 1 hour) or talk to a nurse or provider soon Reason: Severe pain now The caller accepted this outcome. Contact pt at [phone] Need metaphysicist documented in this encounter Plan of Treatment Upcoming Encounters Date Type Department Care Team (Late st Contact Info) Description 10/10/2025 9:15 AM EST Office Visit [facility] [address] [place] [address] 486[address] Yi Thompson MD [address] [place] [address] 30[address] documented as of this encounter Goals Goal [...] documented as of this encounter Care Teams Prism Measurer Relationship Specialty Start Date End Date Yi Thompson MD [address] [place] [address] 06346 PCP - General Internal Medicine 08/20/23 documented as of this encounter
--- OUTSIDE RECORDS SUMMARY | 2025-08-17 15:26 | XMS_ITS | Encounter Summary ---
Author Organization [employer] Address [address] [place] [address] 164[address] Care Team Providers Care Hospice Chaplain Name Role Phone Yi [place] MD Primary Care Pro vider Reason for Visit * Reason Comments Med Refill Encounter Details Date Type Department Care Team ([facility] st Contact Info) Description 05/03/2024 Refill [facility] 230 [place] [address] Yi [place] MD 230 [place] [address] Social History Tobacco Use Types Packs/Day Years [...] 9:15 AM EST Office Visit [facility] [address] [place] [address] [phone] Yi Thompson MD [address] [place] [address] [phone] documented as of this encounter Goals Goal [...] documented as of this encounter Care Teams Hospice Chaplain Relationship Specialty Start Date End Date Yi Thompson MD [address] [place] [address] 26559 PCP - General Internal Medicine 08/20/23 documented as of this encounter
--- OUTSIDE RECORDS SUMMARY | 2025-08-17 15:26 | XMS_ITS | Encounter Summary ---
Author Organization [employer] Address [address] [place] [address] 97[address] Care Team Providers Care Change Management Facilitator Name Role Phone Juliet Bird Primary Care Provider Yi Jessica MD Primary Care Pro vider Reason for Visit * Reason Comments Med Refill Encounter Details Date Type Department Care Team (Late Contact Info) Description 06/28/2023 Refill [facility] [address] [place] [address] Juliet Bird FNP Social History Tobacco Use [...] Description 10/10/2025 9:15 AM EST Office Visit [facility] [address] [place] [address] 187[address] Yi [place] MD 230 [place] [address] documented as of this encounter Visit Diagnoses Not on filedocumented in this encounter Care Teams Change Management Facilitator Relationship Specialty Start Date End Date Juliet Bird FNP PCP - General Family Medicine 01/22/23 08/19/23 Yi [place] MD [address] [place] [address] 43661 PCP - General Internal Medicine 08/20/23 documented as of this encounter
--- OUTSIDE RECORDS SUMMARY | 2025-08-17 15:26 | XMS_ITS | Encounter Summary ---
Author Organization [employer] Address [address] [place] [address] Care Team Providers Care Supervising Architect Name Role Phone Yi [place] MD Primary Care Pro vider Encounter Details Date Type Department Care Team (Latest Contact Info) Description 06/26/2025 Results Follow-Up [facility] 230 [place] [address] Yi [place] MD 230 [place] [address] Culture, Urine, Routine, Comprehensive Metabolic Panel Social [...] Description 10/10/2025 9:15 AM EST Office Visit [facility] [address] [place] [address] [phone] Yi Thompson MD [address] [place] [address] 79695 documented as of this encounter Goals Goal [...] as of this encounter Care Teams Supervising Architect Relationship Specialty Start Date End Date Yi [place] MD [address] [place] [address] 68433 PCP - General Internal Medicine 08/20/23 documented as of this encounter
--- OUTSIDE RECORDS SUMMARY | 2025-08-17 15:26 | XMS_ITS | Encounter Summary ---
Author Organization [employer] Address [address] [place] [address] 18[address] Care Team Providers Care Financial Planning Adviser Name Role Phone Yi [place] MD Primary Care Pro vider Reason for Visit * Reason Onset Date Comments Call Back Request 04/25/2025 Encounter Details Date Type Department Care Team ([facility] Contact Info) Description 04/25/2025 Telephone [facility] 230 [place] [address] Yi Thompson MD 230 [place] [address] Call Back Request Social History Tobacco Use [...] PM EDT Telephone call from Norah at [facility] Physical Therapy Department: Norah, the [employer] MotorBlack[employer] Helper, informed that a referral has been received for the patient. However, the physical therapy provider would like to speak directly with the referring provider--not nursing staff--regarding the referral. When calling [facility] at [phone], ask for Norah. She will transfer the call to the appropriate provider, as there is no direct line available. documented in this encounter Plan of Treatment Upcoming Encounters Date Type Department Care Team (Late st Contact Info) Description 10/10/2025 9:15 AM EST Office Visit [facility] [address] [place] [address] Yi [place] MD 230 [place] [address] documented as of this encounter [...] documented as of this encounter Care Teams Financial Planning Adviser Relationship Specialty Start Date End Date Yi [place] MD [address] [place] [address] 92127 PCP - General Internal Medicine 08/20/23 documented as of this encounter
--- OUTSIDE RECORDS SUMMARY | 2025-08-17 15:26 | XMS_ITS | Encounter Summary ---
Author Organization [employer] Address [address] [place] [address] Care Team Providers Care Bleacher Operator Name Role Phone Yi [place] MD Primary Care Pro vider Encounter Details Date Type Department Care Team ([facility] st Contact Info) Description 11/06/2024 Orders Only [facility] 230 [place] [address] Provider, MD Lux Social History Tobacco Use [...] Visit [facility] [address] [place] [address] Yi [place] MD [address] [place] [address] documented as of this encounter Goals Goal [...] documented as of this encounter Care Teams Bleacher Operator Relationship Specialty Start Date End Date Yi [place] MD [address] [place] [address] 18647 PCP - General Internal Medicine 08/20/23 documented as of this encounter
--- OUTSIDE RECORDS SUMMARY | 2025-08-17 15:26 | XMS_ITS | Data Portability ---
Author Organization [place] [facility], Allergy Address [address] [address] Assessment No assessment recorded. Plan of Treatment [...] contr ast No observ ation record ed. [facility] Radiology ([facility]) [address] [facility] [address], [place], [address], 07/12/2024 17:28:21 07/12/20 24 03/07/2024 CT, neck, soft tissu e, w/ contr ast No observ ation record ed. [email or web address] Not Available 06/17 14:31:41 Result Notes None [...] Available [employer] 4 03:27:19 Oropharyn geal dysphagia 90723199 Active 2023 CHANTEL MEYER MD [address] [place] [address], [facility] [place], [address] , [facility] 4 14:16:46 Acquired vocal cord palsy 803382018 Active 2023 CHANTEL MEYER MD [address] [place] [address], [place], [address] , [facility] 4 14:27:26 Problem Notes None recorded. Procedures Surgical History Date Name Laterality Status Provider Name and Address Organization Details Recorded Time 07/12/2024 FFL_RE completed CHANTEL MEYER MD [address] [place] [address],[place] [address], [place], [address], [facility] 07/12/2024 14:20:56 Imaging Results None recorded. Procedure Notes None recorded. Medical Equipment None Reported. Allergies Allergen ID Allergen Name Allergen Category Reaction Reaction Severity Criticality Documentation Date Start Date Code Code System Note Provider Name and Address Organization Details Recorded Time 64763 Product containin g penicilli n (product) medicatio n other Not available Not available 03/29/2024 65169 8001 SNOMED React ion: unkno wn, unspe cifie d;; Not Available [facility] 4 01:03:20 Medications Name Sig Start Date Stop Date Status Note LastModified by Organization Details LastModified Time medbox status USE DIRECTED active Not Available Not Available No t Available freestyle lite test strips strp active Not Available Not Available Not Available losartan 50 mg tablet active Medicati on ID: 36745 Br and Name: losartan Send Method: E-Prescr [...] 40 mg tablet active Medicati on ID: 09550 Br and Name: lovastat in Send Method: E-Prescr ibed Sub s Allowed: subs OK Medic ationGen ericName : lovastat in Not Available Not Available Not Available amlodipin e 5 mg tablet active Medicati on ID: 97894 Br and Name: amlodipi ne Send Method: [...] Not Available Not Available No t Available Vader Thyroid 15 mg tablet active Medicati on ID: 70566 Br and Name: Vader Thyroid Send Method: E-Prescr ibed Sub s Allowed: subs OK Medic ationGen ericName : Vader Thyroid Not Available Not Available Not Available amitripty line 25 mg tablet active Medicati on ID: 89547 Br and Name: amitript yline Se nd Method: E-Prescr ibed Sub s Allowed: subs OK Medic ationGen ericName : amitript yline Not Available Not Available Not Available Protonix 40 mg intraveno us solution active Medicati on ID: 81276 Br and Name: Protonix Send Method: E-Prescr [...] 150 mg capsule active Medicati on ID: 37547 Br and Name: ranitidi ne HCl Send Method: E-Prescr ibed Sub s Allowed: subs OK Medic ationGen ericName : ranitidi ne HCl Not Available Not Available Not Available hydrochlo rothiazid e 25 mg tablet active Medicati on ID: 57391 Br and Name: hydrochl orothiaz ro Send [...] 17 gram/dose oral powder USE DIRECTED BY [facility] active Not Available Not Available No [...] release 24hr (osmotic) active Medicati on ID: 93839 Br and Name: metformi n Send Method: [...] tablet,de layed release active Medicati on ID: 50895 Du ration Value: 30 Brand Name: omeprazo [...] Updated DateTime 07/12/2024 165.1 cm 27.3 kg/m2 33492.15 g [place] [facility] 07/12/2024 14:07:22 Social History None recorded. Functional Status None recorded. Mental Status None recorded. Family History Nothing Reported. Medical History No medical history recorded. Gynecological HistoryNo gynecological history recorded. Obstetrics History GPAL:G 0 P 0 0 0 0 Past Encounters Encounter ID Performer Location Encounter Start Date Encounter Closed Date Diagnosis/Indication Diagnosis SNOMED-CT Code Diagnosis ICD10 Code Diagnosis IMO Codes Diagnosis Note [id number] CHANTEL MEYER MD [facility] [address] [address] 07/12/2024 13:49:31 07/12/2024 16:53:30 Oropharyngeal dysphagia 03320082 R13.12 Likely due to esophageal dysmotilit y. VC paralysis is a factor but doesn't explain her dysphagia to solids. I recommend she discuss GI referral with her PCP. I would be glad to see her as needed. I personally reviewed her imaging reports. Acquired v ocal cord palsy [id number] J38.00 Likely from initial surgery 14 years [...] Name 07/12/2024 1 [employer] [facility] [facility] [id number] Giuseppe Rodriguez [id number] Sapna Garcia 07/12/2024 1 [facility] [id number] Giuseppe Rodriguez [id number] Sapna Garcia Notes Date Note Type Note Provider Name and Address Organization Details Recorded Time 07/12/2024 text/html ROS as noted in the HPI She has a history of thyroid cancer. She had thyroidectomy in [place] 14 years ago. She had repeat surgery here 5-6 years ago. She reports her swallowing has been a problem since her first surgery. She had a swallow study at [facility]. She feels like food gets stuck. Has occasional choking with liquids. She has never smoked. She denies throat pain and SOB. I reviewed an Upper GI series which showed esophageal dysmotility. I also reviewed her CT neck with 02/2024 which showed possible right vocal cord paralysis. contrast CHANTEL MEYER MD [address] [place] [address], [place], [address], [facility] - [facility] 07/12/2024 14:28:36 OBGyn Episode No OBEpisode recorded.
--- OUTSIDE RECORDS SUMMARY | 2025-08-17 15:26 | XMS_ITS | Encounter Summary ---
Author Organization [employer] Address [address] [facility] [address] [address] Care Team Providers Care Clinical Staff Pharmacist Name Role Phone Yi Thompson MD Primary Care Pro vider Reason for Visit * Reason Comments Med Refill Encounter Details Date Type Department Care Team (Late st Contact Info) Description 09/15/2023 Refill [facility] [address] [place] [address] Juliet Bird, MARY ELLEN Primary hypertension; Type 2 diabetes mellitus without complication, without long-term current use of insulin (CMS/[facility]) Social History Tobacco Use [...] Description 10/10/2025 9:15 AM EST Office Visit [facility] [address] [place] [address] [phone] Yi Thompson MD [address] [place], [place] [phone] documented as of this encounter Visit Diagnoses Diagnosis Primary hypertension Unspecified essential hypertension Type 2 diabetes mellitus without complication, without long-term current use of insulin (HCC) documented in this encounter Care Teams Clinical Staff Pharmacist Relationship Specialty Start Date End Date Yi Thompson MD [address] [place] [address] [phone] PCP - General Internal Medicine 08/20/23 documented as of this encounter
--- OUTSIDE RECORDS SUMMARY | 2025-08-17 15:26 | XMS_ITS | Clinical Summary ---
Author Organization [employer] Address [address] [place] [address] [facility] [place] [address] Care Team Providers Care Dump Grounds Checker Name Role Phone Yi Thompson MD Primary [...] 09/17/2023 Forgetfulness 04/15/2023 Overview (08/20/2023): Seen at [facility] on 07/15/2020 for right sided facial [...] improve. 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 04/09/2023 04/15/2023 Thyroid cancer ([facility]/HCC) 01/04/2019 Multiple joint pain 09/03/2018 04/15/20 Calcaneal spur 08/05/2018 09/17/2023 Gastroesophageal reflux disease 05/01/2014 04/15/2023 Encounters Date Type Department Care Team Description 08/16/2025 11:15 AM EDT Office Visit [address] [address] Tere Thompson NP Paronychia of finger of right hand (Primary Dx) 08/16/2025 Travel 08/15/[address] [address] Yi Thompson MD Nurse Triage 07/25/2025 Orders Only GENERIC EXTERNAL DATA DEPARTMENT Provider, Generic External Data 07/23/2025 Refill [facility] [address] [place] [address] Yi Thompson MD 07/21/2025 Orders Only [facility] External Provider, [facility] 07/20/[address] [address] Yi Thompson MD Call Back Request 07/03/2025 Results Follow-Up [address] [address] Leticia Plunkett ANP CBC auto differential 06/28/[address] [address] Yi Thompson MD oct recall 06/28/[address] [address] Yi Thompson MD Imaging Orders 06/28/2025 Refill [facility] [address] [place] [address] Yi Thompson MD Type 2 diabetes mellitus without complication, without long-term current use of insulin ([facility]) 06/26/2025 Results Follow-Up [address] [address] Yi Thompson MD Culture, Urine, Routine, Comprehensive Metabolic Panel 06/23/2025 1:15 PM EDT Office Visit [address] [address] Cathleen Lomax CNP Flank pain (Primary Dx); Right lower quadrant pain; Urinary tract infection without hematuria, site unspecified 06/23/2025 Travel 06/22/[address] [address] Wanda Mtz [place] CHARTPREP 06/22/[address] [address] Yi Thompson MD Nurse Triage 06/09/2025 11:15 AM EDT Office Visit [address] [address] Yi Thompson MD Left arm pain (Primary Dx); Complex regional pain syndrome type 1 of both upper extremities; Hypertension, unspecified type; Type 2 diabetes mellitus without complication, without long-term current use of insulin (CMS/[facility]); Health care maintenance; Other diabetic neurological complication associated with type 2 diabetes mellitus (CMS/HCC) 06/09/2025 Telephone [facility] [address] [place] [address] Skylar Larsen, CAT THREAD TWISTER 06/09/2025 Travel 06/08/[address] [address] Yi Thompson MD chartprep 06/02/2025 Orders Only [address] [address] Yi Thompson MD Type 2 diabetes mellitus without complication, without long-term current use of insulin (CMS/HCC) 06/02/2025 Orders Only GENERIC EXTERNAL DATA DEPARTMENT Provider, Generic External Data 05/31/2025 Results Follow-Up [facility] [address] [place] [address] Yi Thompson MD Client Education Tracking, Fecal Globin By Immunochemistry 05/26/2025 11:00 AM EDT Telemedicine [facility] [address] [place] [address] Remedios Do, Eileen Hypertension, unspecified type (Primary Dx) 05/26/2025 Orders Only [facility] [address] [place] [address] Yi Thompson MD 05/26/2025 Orders Only [facility] [address] [place] [address] Yi Thompson MD 05/26/2025 Results Follow-Up [facility] [address] [place] [address] Yi Thompson MD CBC auto differential, Reticulocyte Count, Hemoglobin A1c, Additional followed-up results: 6 05/26/2025 Orders Only [facility] [address] [place] [address] Yi Thompson MD from Last 3 Months [...] Office Visit [facility] [address] [place] [phone] Yi Thompson MD [address] [place] [address] Health Maintenance Due Date Last [...] 05/26/2026 05/26/2025, 04/16, 05/16/2024, Additional history exists Eye Exam 08/08/2026 08/08/2024, 07/18, 08/08/2024, Additional history exists Tobacco Screening 08/16/2026 08/16/2025 Mammogram 02/07/2027 02/07/2025, 01/15, 01/13/2024, Additional history [...] PM EDT Narrative 08/02/2025 4:27 PM EDT [address] [address] [address] Scan Report Signed Patient: Sapna Herzog MR#: M [id number] : 1960 Acct:[id number] Age/Sex: 64 / F ADM Date: 08/02/25 Loc: HO.CT Attending Dr: Cathleen Lomax BOOM TRUCK DRIVER Ordering Physician: Cathleen Lomax NP Date of Service: 08/02/25 Procedure(s): CT abdomen pelvis wo IV con Accession Number(s): [id number] cc: Yi Thompson MD; Cathleen Lomax BOOM TRUCK DRIVER Report Number: [id number]: Total DLP = 385.00 mGy-cm Reason for [...] 08/02/25 1624 DD/ 1547 TD/TT: 08/02/25 1607 Process Artist: Procedure Note Donotuseinterpreter, Image - 08/02/[address] [place] [address] [address] Scan Report Signed Patient: Sapna Herzog CMR#: M [id number] : 1960cct:[id number] Age/Sex: 64 / FADM Date: 08/02/25 Loc: HO.CT Attending Dr: Cathleen Lomax NP Ordering Physician: Cathleen Lomax NP Date of Service: 08/02/25 Procedure(s): CT abdomen pelvis wo IV con Accession Number(s): [id number] cc: Yi Thompson MD; Cathleen Lomax NP Report Number: [id number]: Total DLP = 385.00 mGy-cm Reason for [...] 08/02/25 1624 DD/ 1547 TD/TT: 08/02/25 1607 Process Artist: [facility] CT PROCEDURES Edited Result - Final * Culture, Urine, Routine (07/25/2025 9:13 AM EDT) Only the most recent of2 resultswithin the time period is included. Urine Urine specimen from urinary conduit / Unknown 07/25/2025 9:13 AM EDT 07/25/2025 9:19 AM EDT Comment:Urine Cath Narrative [facility] - 07/27/2025 8:31 AM EDT Urine Culture No growth. Specimen Source: Urine Catheterized us Generic External Data Provider LAB MICROBIOLOGY - GENERAL ORDERABLES Final Result Performing Organization Address [facility] Co de Phone Number [facility] [address] [place] [phone] * (ABNORMAL) Glucose, Whole Blood (07/25/2025 7:11 AM EDT) Only the most recent of2 resultswithin the time period is included. Glucose, Whole Blood 172(H) 60 - 115 mg/dL [facility] Comment:METER #: [id number] 07/25/2025 7:11 AM EDT 07/25/2025 7:15 AM EDT us Generic External Data Provider LAB BLOOD ORDERAB LES Final Result Performing Organization Address [facility] de Phone Number [facility] [address] [place] [phone] * US Pelvis Transvaginal (07/21/2025 2:48 PM EDT) Anatomical Region Laterality Modality Pelvis Ultrasound 07/21/2025 2:48 PM EDT Narrative 07/21/2025 2:49 PM EDT [address] [address] Ultrasound Report Signed Patient: Sapna Herzog MR#: M [id number] : 1960 Acct:[id number] Age/Sex: 64 / F ADM Date: 07/21/25 Loc: HO.US Attending Dr: Domenic Chew MD Ordering Physician: Domenic Chew MD Date of Service: 07/21/25 Procedure(s): US pelvic and transvaginal Accession Number(s): [id number] cc: Yi Thompson MD; Domenic Chew MD [...] OV> 07/21/25 1448 DD/ 47 TD/TT: 07/21/251447 Process Artist: Procedure Note Donotuseinterpreter, Image - 07/21/2025 [place] [address] Ultrasound Report Signed Patient: Sapna Herzog CMR#: M [id number] : 9Acct:[id number] Age/Sex: 64 / FADM Date: 07/21/25 Loc: . Attending Dr: Domenic Chew MD Ordering Physician: Domenic Chew MD Date of Service: 07/21/25 Procedure(s): US pelvic and transvaginal Accession Number(s): [id number] cc: Yi Thompson MD; Domenic Chew MD [...] OV> 07/21/25 1448 DD/ 47 TD/TT: 07/21/251447 Process Artist: us [facility] External Provider IMG US PROCEDURES Final Result * MR Brain w/o Contrast (07/07/2025 4:44 PM EDT) Anatomical Region Laterality Modality Brain Magnetic Resonan ce 07/07/2025 4:44 PM EDT Narrative 07/07/2025 6:03 PM EDT [place] [address] Magnetic Resonance Report Signed Patient: Sapna Herzog MR#: M [id number] : 1960 Acct:[id number] Age/Sex: 64 / F ADM Date: 07/07/25 Loc: HO.MRI Attending Dr: Yi Cleary MD Ordering Physician: Yi Thompson MD Date of Service: 07/07/25 Procedure(s): MR head/brain wo con Accession Number(s): [id number] cc: Yi Thompson MD EXAMINATION: MR BRAIN [...] 07/07/25 1800 DD/ 1644 TD/TT: 07/07/25 1701 Process Artist: Procedure Note Donotuseinterpreter, Image - 07/07/2025 [place] [address] Magnetic Resonance Report Signed Patient: Sapna Herzog CMR#: M [id number] : 9Acct:[id number] Age/Sex: 64 / FADM Date: 07/07/25 Loc: HO.MRI Attending Dr: Yi Cleary MD Ordering Physician: Yi Thompson MD Date of Service: 07/07/25 Procedure(s): MR head/brain wo con Accession Number(s): [id number] cc: Yi Thompson MD EXAMINATION: MR BRAIN [...] 07/07/25 1800 DD/ 1644 TD/TT: 07/07/25 1701 Process Artist: Yi Cleary MD IMG MRI PROCEDURE S Final Result * (ABNORMAL) CBC auto differential (06/23/2025 1:42 PM EDT) Only the most recent of2 resultswithin the time period is included. White Blood Count 6.8 4.8 - 10.8 X10*3/uL [facility] Red Blood Count 4.67 4.20 - 5.50 X10*6/uL [facility] Hemoglobin 11.1(L) 12.0 - 16.0 g/dl [facility] Hematocrit 35.0(L) 37.0 - 47.0 % [facility] Mean Corpuscular Volume 74.9(L) 80.0 - 98.0 fL [facility] Mean Corpuscular Hemoglobin 23.8(L) 27.0 - 33.0 pg [facility] Mean Corpuscular HGB Conc 31.7 31.0 - 35.0 g/dl [facility] Red Cell Distribution Width 15.7 11.0 - 16.0 % [facility] Platelet Count 285 160 - 400 X10*3/uL [facility] Mean Platelet Volume 10.6 9.4 - 12.3 fL [facility] Neutrophils Percent Auto 60.2 45 - 73 % [facility] Imm Gran Pct Auto 0.4 0.0 - 0.4 % [facility] Lymphocytes Percent Auto 26.0 20 - 40 % [facility] Monocytes Percent Auto 10.3 2 - 11 % [facility] Eosinophils Percent Auto 1.9 0 - 4 % [facility] Basophils Percent Auto 1.2 0 - 2 % [facility] NRBC Pct Auto 0.0 0.0 - 0.2 /100WBC [facility] Neutrophils Absolute Auto 4.1 2.0 - 8.3 x10*3/uL [facility] Imm Gran Abs Auto 0.03 0.00 - 0.03 X10*3/uL [facility] Lymphocytes Absolute Auto 1.8 1.2 - 4.9 X10*3/uL [facility] Monocytes Absolute Auto 0.7 0.1 - 1.2 X10*3/uL [facility] Eosinophils Absolute Auto 0.1 0.0 - 0.4 X10*3/uL [facility] Basophils Absolute Auto 0.1 0.0 - 0.2 X10*3/uL [facility] NRBC Abs Auto 0.000 0.0 - 0.012 X10*3/uL [facility] Blood Venous blood specimen / Unknown 06/23/2025 1:42 PM EDT 06/23/2025 4:12 PM EDT Leticia Plunkett [facility] LAB BLOOD ORDERABLES Final Resul t [facility] [address] [place] [phone] * Comprehensive Metabolic Panel (06/23/2025 1:42 PM EDT) Only the most recent of2 resultswithin the time period is included. Sodium 140 135 - 145 mmol/L [facility] Potassium 3.9 3.3 - 5.1 mmol/L [facility] Chloride 104 96 - 108 mmol/L [facility] Carbon Dioxide 26 22 - 29 mmol/L [facility] Anion Gap 14 12 - 20 [facility] Urea Nitrogen (BUN) 16 9 - 16 mg/dL [facility] Creatinine, Serum 0.77 0.5 - 1.4 mg/dL [facility] Estimated Glomerular Filt Rate >60 [facility] Comment:Chronic Kidney Disea se: Estimated GFR < 60 mL/min/1.80x2Jerart Kidney Disease: Estimated GFR < 15 mL/min/1.73m2 Glucose 101 60 - 115 mg/dL [facility] Calcium 9.1 8.4 - 10.2 mg/dL [facility] Bilirubin, Total 0.2 0.0 - 1.0 mg/dL [facility] Aspartate Amino Transferase 30 5 - 31 U/L [facility] Alanine Aminotransferase 28 0 - 31 U/L [facility] Total Protein 7.7 6.5 - 8.0 g/dL [facility] Albumin Level 4.6 3.5 - 5.0 g/dL [facility] Alkaline Phosphatase 85 39 - 117 U/L [facility] Blood Venous blood specimen / Unknown 06/23/2025 1:42 PM EDT 06/23/2025 4:12 PM EDT [facility] LAB BLOOD ORDERABLES Cammy l Result [facility] [address] [place] [phone] [phone] * (ABNORMAL) POCT Urinalysis (06/23/2025 1:18 [...] Expiration Date Urine 06/23/2025 1:18 PM EDT [facility] POINT OF CARE TEST ENTER/ EDIT ORDERABLES Final Result * FL Guidance in OR (06/02/2025 10:25 AM EDT) Anatomical Region Laterality Modality X-Ray Angiograph y 06/02/2025 10:2 5 AM EDT Narrative 06/02/2025 11:06 AM EDT [address] [address] Fluoroscopy Report Signed Patient: Sapna Herzog MR#: M [id number] : 1960 Acct:[id number] Age/Sex: 64 / F ADM Date: 06/02/25 Loc: .[facility] Attending Dr: Jcarlos Gee MD Ordering Physician: Jcarlos Gee MD Date of Service: 06/02/25 Procedure(s): FL guidance in OR Accession Number(s): [id number] cc: Jcarlos Gee MD; Yi Thompson MD [...] 06/02/25 1103 DD/ 1025 TD/TT: 06/02/25 1043 Process Artist: Procedure Note Donotuseinterpreter, Image - 06/02/[address] [address] Fluoroscopy Report Signed Patient: Sapna Herzog CMR#: M [id number] : 9Acct:[id number] Age/Sex: 64 / FADM Date: 06/02/25 Loc: .[facility] Attending Dr: Jcarlos Gee MD Ordering Physician: Jcarlos Gee MD Date of Service: 06/02/25 Procedure(s): FL guidance in OR Accession Number(s): [id number] cc: Jcarlos Gee MD; Yi Thompson MD [...] report for additional information. Electronically signed by: Miltno Duckworth MD 06/02/2025 11:03 AM EDT Dictated By: Milton Duckworth MD Signed By: <Electronically signed by Milton Duckworth MD in OV> 06/02/25 1103 DD/ 1025 TD/TT: 06/02/25 1043 Process Artist: [facility] External Provider IMG IR PROCEDURES Final Result * Albumin, Random Urine W/Creatinine (05/26/2025 10:35 AM EDT) Creatinine, Urine 84.43 mg/dL [facility] Microalbumin Urine <5.0 mg/L [facility] Microalbum Creatinine Ratio Ur TNP <30 ug/mg cr [facility] Comment:Unable to calculate albumin/creatinine ratio due to lowmicroalbumin or creatinine result. 05/26/2025 10:3 5 AM EDT 05/26/2025 11:11 AM EDT us Yi Cleary MD LAB URINE ORDERAB LES Final Result Performing Organization Address [facility] Co de Phone Number [facility] [address] [place] [phone] * (ABNORMAL) Iron And Total Iron Binding Capacity (05/26/2025 10:35 AM EDT) [facility] Iron 49 30 - 160 mcg/dL [facility] Total Iron Binding Capacity 356 228 - 428 mcg/dL [facility] Percent Iron Saturation 14(L) 15 - 50 % [facility] Unsaturated Iron Binding 307 ug/dL [facility] 05/26/2025 10:3 5 AM EDT 05/26/2025 11:17 AM EDT us Yi Cleary MD LAB BLOOD ORDERAB LES Final Result Performing Organization Address [facility] Co de Phone Number [facility] [address] [place] [phone] * (ABNORMAL) Reticulocyte Count (05/26/2025 10:35 AM EDT) [facility] Reticulocytes Absolute 0.056 0.026 - 0.095 X10*6/uL [facility] Immature Retic Fraction 15.2 3.0 - 15.9 % [facility] Retic HGB Equivalent 26.9(L) 30.0 - 35.0 pg [facility] Reticulocyte Percent 1.2 0.5 - 1.8 % [facility] 05/26/2025 10:3 5 AM EDT 05/26/2025 11:19 AM EDT us Yi Cleary MD LAB BLOOD ORDERAB LES Final Result Performing Organization Address [facility] Co de Phone Number [facility] [address] [place] [phone] * (ABNORMAL) Hemoglobin A1c (05/26/2025 10:35 AM EDT) Hemoglobin A1c 7.1(H) <6.0 % [facility] Comment:Hemoglobin A1C Refer ence Range Adults: 4.8 - 6.0 % Non diabetic: < 6.0 % Goal: < 7.0 %Additional Action Suggested: > 8.0 %Note: Hemoglobin A1c results are invalid for patients with abnormal amounts of HbF. Blood transfusions may impact the HbA1c concentration in the patient sample. Estimated Average Glucose 157 mg/dL [facility] Comment:eAG = Estimated ave rage glucose which is %A1C expressed asaverage glucose, using the formula of the X6G-ZagipxgLijowll Glucose study (ADAG), Diabetes Care, Vol.31,#8,Jun. 2007 05/26/2025 10:3 5 AM EDT 05/26/2025 11:19 AM EDT us Yi Cleary MD LAB BLOOD ORDERAB LES Final Result [facility] [address] [place] [phone] * (ABNORMAL) Ferritin (05/26/2025 10:35 AM EDT) Ferritin 9(L) 10 - 250 ng/mL [facility] 05/26/2025 10:3 5 AM EDT 05/26/2025 11:17 AM EDT us Yi Cleary MD LAB BLOOD ORDERAB LES Final Result [facility] [address] [place] [phone] * Vitamin B12 (05/26/2025 10:35 AM EDT) Vitamin B12 476 200 - 900 pg/mL [facility] Comment:NORMAL 200-900 PG/ML INDETERMINATE 160-199 PG/ML DEFICIENT < 160 PG/ML 05/26/2025 10:3 5 AM EDT 05/26/2025 11:17 AM EDT us Yi Cleary MD LAB BLOOD ORDERAB LES Final Result Performing Organization Address [facility]/ZIP Co de Phone Number [facility] [address] [place] [phone] * (ABNORMAL) Lipid Panel, Standard (05/26/2025 10:35 AM EDT) Triglycerides 221(H) <150 mg/dL [facility] Comment:Desirable Triglyceri de: less than 150 mg/dLBorderline High Triglyceride 150-199 mg/dLHigh Triglyceride: 200-499 mg/dLVery High Triglyceride: greater than or equal to 5OO mg/dL Cholesterol 243(H) <200 mg/dL [facility] Comment:Desirable Cholestero l: less than 200 mg/dLBorderline High Cholesterol: 200-239 mg/dLHigh Cholesterol: greater than 239 mg/dL LDL Cholesterol Calculated 157(H) <100 mg/dL [facility] Comment:Desirable LDL: less than 100 mg/dLNear Optimal/Above Optimal LDL: 110- 129 mg/dLBorderline High LDL: 130-159 mg/dLHigh LDL: 160-189 mg/dLVery High LDL: greater than or equal to 190 mg/dL HDL Cholesterol 42 >40 mg/dL [facility] Comment:Desirable HDL: great er than 40 mg/dL Note: This HDL assay may give artificially low results in patients with liver disease. 05/26/2025 10:3 5 AM EDT 05/26/2025 11:17 AM EDT Yi Cleary MD LAB BLOOD ORDERAB LES Final Result Performing Organization Address City/[facility]/ZIP Co de Phone Number [facility] [address] [place] [phone] * Client Education Tracking (05/26/2025 12:00 AM EDT) Pathologist [facility] Client Education Tracking [facility] Comment: The Requisition we received did not include a [employer] account number. To prevent delays in testing [...] ST ORDERABLES Final Result Performing Organization Address [facility] de Phone Number [address], [place] [phone] [employer] [facility] [phone] * Fecal Globin By Immunochemistry (05/26/2025 12:00 AM EDT) Pathologist [facility] Fecal Globin By Immunochemistry SEE NOTE [facility] [facility] Comment: FECAL GLOBIN BY IMMUNOCHEMISTRY Micro Number: [id number] Test Status: Final Specimen Source: Insure () [...] STOOLS ORDERABLES Final Result Performing Organization Address [facility] de Phone Number [address], [place] [phone] [employer] [place] [employer] Network[facility]BATech[address] [phone] * BI US Breast Limited Left (02/07/2025 10:44 AM EDT) Anatomical Region Laterality Modality Breast Left Ultrasound 02/07/2025 10:4 4 AM EDT Narrative 02/07/2025 11:07 AM EDT [place] [address] [place] [address] Ultrasound Report Signed Patient: Sapna Herzog MR#: M [id number] : 1960 Acct:[id number] Age/Sex: 64 / F ADM Date: 02/07/25 Loc: HO.MAMMO Attending Dr: Peter Tate CNM Ordering Physician: PETER TATE CNM Date of Service: 02/07/25 Procedure(s): US breast LT limited mamm only Accession Number(s): [id number] cc: Yi Thompson MD; PETER TATE CNM [...] 02/07/25 1104 DD/ 1044 TD/TT: 02/07/25 1058 Process Artist: Procedure Note Donotuseinterpreter, Image - 02/07/2025 [place] [facility] [address] [place], [place] [address] Ultrasound Report Signed Patient: Sapna Herzog CMR#: M [id number] : 1960cct:[id number] Age/Sex: 64 / FADM Date: 02/07/25 Loc: MAMMO Attending Dr: Peter Tate CNM Ordering Physician: PETER TATE CNM Date of Service: 02/07/25 Procedure(s): US breast LT limited mamm only Accession Number(s): [id number] cc: Yi Thompson MD; PETER TATE CNM [...] 02/07/25 1104 DD/ 1044 TD/TT: 02/07/25 1058 Process Artist: Peter Tate CNM IM US PROCEDURES Edited Result - Final * Hm Colonoscopy (11/03/2024 6:36 PM EST) Historical Provider HEALTH MAINTENANCE Final Result * Hepatitis C Antibody with Reflex to HCV, RNA, Quantitative, Real-Time PCR (01/12/2024 8:56 AM EST) Hepatitis C Antibody Nonreactive Nonreactive [facility] Comment:Antibodies to HCV no t detected; does not exclude early acuteHCV infection. Blood Venous blood specimen / Unknown 01/12/2024 8:56 AM EST 01/12/2024 11:12 AM EST Yi Cleary MD LAB BLOOD ORDERAB LES Final Result [facility] [address] [place] [phone] * THINPREP PAP (10/25/2020 10:02 AM [...] along with historic and current clinical information. Boat Hoist Operator : SEE COMMENT [facility] Comment: QUINCY, CT(ASCP) CT screening location: [place] [address] Interpretation/R esult: Negative for intraepithelial lesion or malignancy. [facility] LMP: NONE [facility] Prev. BX: NONE [facility]IVEN [facility] Prev. PAP: NONE [facility]IVEN [facility] SOURCE: None given [facility] Statement Of Adequacy: SEE COMMENT [facility] Comment: Satisfactory for evaluation. Endocervical/transformation zone component present. 10/25/2020 10:0 2 AM EST Peter Tate [facility] PATHOLOGY ORDERABLES Final Result Performing Organization Address [facility] Number [facility] Anywhere [address] * HPV mRNA E6/E7 (10/25/2020 10:02 AM EST) HPV nRNA E6/E7 Not Detected Not Detected [facility] Comment: This test was performed using the APTIMA HPV Assay ([employer] This assay detects E6/E7 viral messenger RNA (mRNA) from 14 high-risk HPV types (16,18,31,33,35,39,45,51,52,56,58,59,66,68). The analytical performance characteristics of this assay have been determined by [employer]. The modifications have not been cleared or approved by the FDA. This assay has been validated pursuant to the CLIA regulations and is used for clinical purposes. 10/25/2020 10:0 2 AM EST Peter Tate [facility] BLOOD ORDERABLES Cammy l Result Performing Organization Address [facility] de Phone Number [facility] [facility] [address] from Last 3 Months or Most Recently Relevant to Health Maintenance Insurance [employer] [place] [address] Care Teams Dump Grounds Checker Relationship Specialty Start Date End Date Yi Thompson MD [address] [place] [phone] PCP - General Internal Medicine 08/20/23
--- OUTSIDE RECORDS SUMMARY | 2025-08-17 15:26 | XMS_ITS | Encounter Summary ---
Author Organization [employer] Address [address] [place] [address] Care Team Providers Care Rehabilitation Liaison Name Role Phone Yi Thompson MD Primary Care Pro vider Reason for Visit * Reason Onset Date Comments Nurse Triage 02/15/2024 Encounter Details Date Type Department Care Team ([facility] st Contact Info) Description 02/15/2024 Telephone [facility] [address] [place] [address] Yi Thompson MD [address] [place] [address] Nurse Triage Social History Tobacco Use Types [...] 02/15/2024 12:44 PM EDT Triage call with [place] History Card Clerk ID [id number] Pt reports headache frontal and back of [...] Pt is advised to come to [facility] which is open till 8pm this [...] Tingling sensation The caller accepted this outcome Kyrgyz speaker documented in this encounter Plan of Treatment Upcoming Encounters Date Type Department Care Team (Late st Contact Info) Description 10/10/2025 9:15 AM EST Office Visit [facility] [address] [place] [address] Yi Thompson MD [address] [place] [address] [phone] documented as of this encounter Visit Diagnoses Not on filedocumented in this encounter Additional Health Concerns Assessment Noted Time PHQ-9 Depression Total Score: 1 01/13/20 24 12:16 PM EST documented as of this encounter Care Teams Rehabilitation Liaison Relationship Specialty Start Date End Date Yi Thompson MD [address] [place] [address] [phone] PCP - General Internal Medicine 08/20/23 documented as of this encounter
--- OUTSIDE RECORDS SUMMARY | 2025-08-17 15:26 | XMS_ITS | Encounter Summary ---
Author Organization [employer] Address [address] [place] [id number] Care Team Providers Care Cook Frozen Dessert Name Role Phone Juliet Bird Primary Care Provider Yi Jessica MD Primary Care Pro vider Reason for Visit * Reason Onset Date Comments triage 02/27/2023 Encounter Details Date Type Department Care Team (Late st Contact Info) Description 02/27/2023 Telephone [facility] [address] [place] [address] Juliet Bird FNP triage Social History Tobacco [...] 02/27/2023 4:58 PM EDT Triage call with [place] Super[place] [id number] Pt reports a couple of days of [...] now The caller accepted this outcome speaks tamazight documented in this encounter Plan of Treatment Upcoming Encounters Date Type Department Care Team (Late st Contact Info) Description 10/10/2025 9:15 AM EST Office Visit [facility] [address] [place] [phone] Yi Thompson MD [address] [place] [address] documented as of this encounter Visit Diagnoses Not on filedocumented in this encounter Care Teams Cook Frozen Dessert Relationship Specialty Start Date End Date Juliet Bird FNP PCP - General Family Medicine 01/22/23 08/19/23 Yi Thompson MD [address] [place] [phone] PCP - General Internal Medicine 08/20/23 documented as of this encounter
--- OUTSIDE RECORDS SUMMARY | 2025-08-17 15:26 | XMS_ITS | Encounter Summary ---
Author Organization [employer] Address [address] [place] [address] Care Team Providers Care Cyber Policy And Strategy Planner Name Role Phone Juliet Bird [facility] Primary Care Provider Yi Jessica MD Primary Care Pro vider Reason for Visit * Reason Comments Med Refill Encounter Details Date Type Department Care Team (Late Contact Info) Description 01/28/2023 Refill [facility] [address] [place], [place] [phone] [facility] [address] [place], [place] [phone] Primary hypertension Social History Tobacco Use Types [...] 9:15 AM EST Office Visit [facility] [address] [place], [place] [phone] Yi Thompson MD [address] [place], [place] [phone] documented as of this encounter Visit Diagnoses Diagnosis Primary hypertension Unspecified essential hypertension documented in this encounter Care Teams Cyber Policy And Strategy Planner Relationship Specialty Start Date End Date Juliet Bird FNP PCP - General Family Medicine 01/22/23 08/19/23 Yi Thompson MD [address] [place] [phone] PCP - General Internal Medicine 08/20/23 documented as of this encounter
--- OUTSIDE RECORDS SUMMARY | 2025-08-17 15:26 | XMS_ITS | Encounter Summary ---
Author Organization [employer] Address [address] [place] [address] Care Team Providers Care Senior Naval Parachutist Name Role Phone Yi Thompson MD Primary Care Pro vider Reason for Visit * Reason Comments Med Change Request Encounter Details Date Type Department Care Team ([facility] Contact Info) Description 03/15/2024 Refill [facility] [address] [place] [address] Leticia Plunkett, ANP [address] [place] [address] Sinus pressure Social History Tobacco Use Types [...] Description 10/10/2025 9:15 AM EST Office Visit [facility] [address] [place] [address] Yi Thompson MD [address] [place] [phone] documented as of this encounter Goals Goal [...] as of this encounter Care Teams Senior Naval Parachutist Relationship Specialty Start Date End Date Yi Thompson MD [address] [place] [phone] PCP - General Internal Medicine 08/20/23 documented as of this encounter
[2025-09-18 11:39] VITALS: BP 111/66; PULSE 103; RESP 18; TEMP 36.6; O2SAT 100; BMI 27.4
--- NOTE | 2025-09-18 11:42 | W.PM.OPN ---
Operative Note Operative Note Date of Service: 09/18/25 Narrative: Preop diagnosis: 1. Right Carpal tunnel syndrome Postop diagnosis: same Procedure: 1. Right Carpal tunnel release Surgeon: Georgiana Pang MD Machined Parts Quality Inspector: None Anesthesia: local block using 1% lidocaine with epinephrine Findings: Thickened transverse carpal ligament. EBL: Less than 5 mL Specimens: None Complications: None Disposition: Brought to recovery room in stable condition Plan: Follow-up for 10-14 days for wound check and suture removal Indications: The patient is a 64 years old, with right carpal tunnel syndrome that has been unresponsive to nonoperative management. The risks and benefits of operative treatment including but not limited to risk of damage to blood vessels, nerves, tendons, infection, persistent pain, persistent symptoms, or possible need for additional surgery were discussed with the patient and the patient wishes to proceed with surgery. Procedure: Once consent was obtained a local block was performed using a combination of 1% lidocaine with epinephrine. The patient was then brought back to the operating suite and placed on the operative table in supine position. The right upper extremity was prepped and draped in a standard surgical fashion. Once assured that we had a good block, a 2.0 cm longitudinal incision was made centered over the carpal tunnel. The incision was made through the skin to the subcutaneous tissues using a #15 blade. Dissection was made down to the level of the transverse carpal ligament with care being taken to protect the palmar cutaneous nerve. Once the transverse carpal ligament was clearly visualized, a longitudinal incision was made in the transverse carpal ligament 1st using a #15 blade, then using tenotomy scissors under direct visualization. Care was taken to look for and protect the motor branch of the median nerve when seen in this area. Once satisfied with our carpal tunnel release the wound was copiously irrigated with normal saline and hemostasis was obtained with a brief period of local pressure. The skin edges were reapproximated with some 5.0 nylon suture material and a sterile dressing was applied. The patient appears to have tolerated the procedure well and with no complications. All digits were well vascularized at the conclusion of the case.
--- NOTE | 2025-09-18 11:43 | MHC.SHP ---
Pre-Procedural Eval Section A - 24 Hr Update-Section A only Date of Service: 09/18/25 The patient is an INPATIENT: No Changes since office visit: No Cold of Flu in the past 2 weeks, No New Medical Problems, No Changes in Medication and No Patient answered all questions The patient has been examined within 24 hours of the surgical procedure. The History & Physical has been completed within 30 days and I have reviewed it.: Yes Section B - Complete if H&P > 30 days Chief Complaint: Carpal tunnel syndrome, right upper limb Allergies: Allergies Allergy/AdvReac Type Severity Reaction Status Date / Time Penicillins (PENICILLINS) Allergy Intermediate HIVES Verified 08/16/25 13:29 Plan Diagnosis/Plan: Unchanged I have reviewed the history and physical and performed a pertinent physical examination on my patient. No changes have occurred unless specified. Time Spent With Patient Time: Total time managing care of this patient today ____ minutes.
[2025-09-18 13:33] VITALS: BP 106/67; BP 148/85; PULSE 103; PULSE 98; RESP 18; TEMP 36.1; O2SAT 100
== END 2025-09-18 13:37 | disposition home or self-care (01) ==
PROVIDERS: PCP Student in an Organized Health Care Education/Training Program; Visit Provider Orthopaedic Surgery
PROC: (CPT 64721; principal; 2025-09-18 14:10)
DX: G56.01 Carpal tunnel syndrome, right upper limb (principal); R20.0 Anesthesia of skin; M79.89 Other specified soft tissue disorders; G89.4 Chronic pain syndrome; M50.00 Cervical disc disorder with myelopathy, unspecified cervical region; M65.4 Radial styloid tenosynovitis [de Quervain]; M25.512 Pain in left shoulder; G95.89 Other specified diseases of spinal cord; E11.42 Type 2 diabetes mellitus with diabetic polyneuropathy; C73 Malignant neoplasm of thyroid gland; E89.0 Postprocedural hypothyroidism; R91.8 Other nonspecific abnormal finding of lung field; Z88.0 Allergy status to penicillin; Z98.890 Other specified postprocedural states
CPT/HCPCS: 64721; J0165; J2003

== ENCOUNTER → 2025-09-18 11:09 | Outpatient (BNV) | payer OTHER, SELFPAY | PROVIDERS: PCP Student in an Organized Health Care Education/Training Program; Visit Provider Orthopaedic Surgery | DX: G56.01 Carpal tunnel syndrome, right upper limb (principal) | CPT/HCPCS: 64721 ==

== ENCOUNTER 2025-09-25 07:21 | Outpatient (REF) | payer OTHER, SELFPAY ==
--- OUTSIDE RECORDS SUMMARY | 2025-09-25 07:24 | XMS_ITS | Encounter Summary ---
Author Organization [employer] Address [address] [place] [address] 68[address] Care Team Providers Care Loop Machine Operator Name Role Phone Yi Thompson MD Primary Care Pro vider Reason for Referral * Consultation (Routine) - Authorized Specialty Diagnoses / Procedures Referred By Contac t Referred To Contact Pharmacy Diagnoses Hypertension Maria Del Carmen Meza MD [address] [place] [address] Phone: tel: fax: Referral ID Status Reason Start Date Expiration Date Visits Requested Visits Authorized [id number] Authorized Continuity of Care 04/03/2025 04/03/2026 6 6 Encounter Details Date Type Department Care Team ([facility] st Contact Info) Description 03/30/2025 Orders Only [facility] MEDICINE [address] [place] [address] Maria Del Carmen Meza MD [address] [place], [place] [phone] Hypertension (Primary Dx) Social History Tobacco Use [...] Description 10/10/2025 9:15 AM EST Office Visit [facility] MEDICINE [address] [place] [address] Yi Thompson MD [address] [place] [address] Scheduled Referrals Name Type Priority Associated Diagnoses [...] AM EDT Narrative 04/12/2025 9:59 AM EDT [place] [address] Magnetic Resonance Report Signed Patient: Sapna Herzog MR#: [id number] : 1960 Acct:[id number] Age/Sex: 64 / F ADM Date: 04/12/25 Loc: HO.MRI Attending Dr: Pratik Estes MD Ordering Physician: Pratik Estes MD Date of Service: 04/12/25 Procedure(s): MR cervical spine wo con Accession Number(s): [id number] cc: Pratik Estes MD; Yi Thompson MD [...] 04/12/25 0956 DD/ 0821 TD/TT: 04/12/25 0837 Net Developer Software Engineer C: Procedure Note Donotuseinterpreter, Image - 04/12/[address] [address] Magnetic Resonance Report Signed Patient: Sapna Herzog CMR#: [id number] : 9Acct:[id number] Age/Sex: 64 / FADM Date: 04/12/25 Loc: HO.MRI Attending Dr: Pratik Estes MD Ordering Physician: Pratik Estes MD Date of Service: 04/12/25 Procedure(s): MR cervical spine wo con Accession Number(s): [id number] cc: Pratik Estes MD; Yi Thompson MD [...] OV> 04/12/2556 DD/ 0 TD/TT: 04/12/25 0837 Net Developer Software Engineer C: [facility] External Provider IMG MRI PROCEDURES Final Result documented in this encounter Visit Diagnoses Diagnosis Hypertension- Primary Unspecified essential hypertension documented in this encounter Additional Health Concerns Assessment Noted Time PHQ-9 Depression Total Score: 1 01/13/20 24 12:16 PM EST documented as of this encounter Care Teams Loop Machine Operator Relationship Specialty Start Date End Date Yi Thompson MD [address] [place] [address] PCP - General Internal Medicine 08/20/23 documented as of this encounter
--- OUTSIDE RECORDS SUMMARY | 2025-09-25 07:24 | XMS_ITS | Encounter Summary ---
Author Organization [employer] Address [address] [place] [address] Care Team Providers Care Accounting Administrative Assistant Name Role Phone Yi Thompson MD Primary Care Pro vider Reason for Visit * Reason Comments Med Refill Encounter Details Date Type Department Care Team ([facility] st Contact Info) Description 05/03/2024 Refill [facility] MEDICINE [address] [place] [address] Yi Thompson MD [address] [place] [address] Social History Tobacco Use Types Packs/Day Years [...] Description 10/10/2025 9:15 AM EST Office Visit [facility] MEDICINE [address] [place] [address] [phone] Yi Thompson MD [address] [place] [address] [phone] documented as of this encounter Goals Goal [...] as of this encounter Care Teams Accounting Administrative Assistant Relationship Specialty Start Date End Date Yi Thompson MD [address] [place] [address] PCP - General Internal Medicine 08/20/23 documented as of this encounter
--- OUTSIDE RECORDS SUMMARY | 2025-09-25 07:24 | XMS_ITS | Encounter Summary ---
Author Organization [employer] Address [address] [place] [address] Care Team Providers Care Middle School Music Teacher Name Role Phone Yi Thompson MD Primary Care Pro vider Reason for Visit * Reason Comments Med Change Request Encounter Details Date Type Department Care Team ([facility] st Contact Info) Description 11/08/2023 Refill [facility] MEDICINE 230 [place] [address] [facility] [address] [place] [address] Viral upper respiratory illness Social History Tobacco [...] Description 10/10/2025 9:15 AM EST Office Visit [facility] MEDICINE [address] [place] [address] [phone] Yi Thompson MD [address] [place] [address] documented as of this encounter Visit Diagnoses Diagnosis Viral upper respiratory illness documented in this encounter Care Teams Middle School Music Teacher Relationship Specialty Start Date End Date Yi Thompson MD [address] [place] [address] [phone] PCP - General Internal Medicine 08/20/23 documented as of this encounter
--- OUTSIDE RECORDS SUMMARY | 2025-09-25 07:24 | XMS_ITS | Encounter Summary ---
Author Organization [employer] Address [address] [place] [address] Care Team Providers Care Rn Transfer Name Role Phone Yi Thompson MD Primary Care Pro vider Reason for Visit * Reason Comments Med Refill Encounter Details Date Type Department Care Team ([facility] st Contact Info) Description 05/20/2024 Refill [facility] [address] [place] [address] Name, MD Ronny [address] [place] [address] Social History Tobacco Use Types Packs/Day Years [...] Description 10/10/2025 9:15 AM EST Office Visit [facility] MED[facility]INE [address] [place] [address] [phone] Yi Thompson MD [address] [place] [address] [phone] documented as of this encounter Goals Goal [...] as of this encounter Care Teams Rn Transfer Relationship Specialty Start Date End Date Yi Thompson MD [address] [place] [address] PCP - General Internal Medicine 08/20/23 documented as of this encounter
--- OUTSIDE RECORDS SUMMARY | 2025-09-25 07:24 | XMS_ITS | Encounter Summary ---
Author Organization [employer] Address [address] [place] [address] Care Team Providers Care Photo Cartographer Name Role Phone Yi Thompson MD Primary Care Pro vider Reason for Visit * Reason Comments Med Refill Encounter Details Date Type Department Care Team (Late st Contact Info) Description 09/21/2025 Refill [facility] MEDICINE 230 [place] [address] Yi Thompson MD 230 [place] [address] Type 2 diabetes mellitus without complication, without long-term current use of insulin (HCC) Social History Tobacco Use Types Packs/Day Years [...] the past 12 months, has t he [employer], gas, oil or water company threatened to [...] Description 10/10/2025 9:15 AM EST Office Visit [facility] MED[facility]INE [address] [place] [address] Yi Thompson MD [address] [place] [address] documented as of this encounter Goals Goal [...] as of this encounter Care Teams Photo Cartographer Relationship Specialty Start Date End Date Yi Thompson MD [address] [place] [address] PCP - General Internal Medicine 08/20/23 documented as of this encounter
--- OUTSIDE RECORDS SUMMARY | 2025-09-25 07:24 | XMS_ITS | Encounter Summary ---
Author Organization [employer] Address [address] [place] [address] Care Team Providers Care Domestic Violence Counselor Name Role Phone Yi Thompson MD Primary Care Pro vider Encounter Details Date Type Department Care Team ([facility] st Contact Info) Description 11/06/2024 Orders Only [facility] MEDICINE [address] [place] [address] Provider, MD Lux Social History Tobacco Use [...] Visit [facility] MEDICINE [address] [place] [address] Yi Thompson MD [address] [place] [address] documented as of this encounter Goals Goal Patient Goal Type Associated Problems Recent Progress Patient-Stated? Author Blood Pressure < 140/90 Blood Pressure 130/82(2024 11:30 AM EDT) No nJ Shah Hemoglobin A1c < 7 Result Component [...] documented as of this encounter Care Teams Domestic Violence Counselor Relationship Specialty Start Date End Date Yi Thompson MD [address] [place] [address] PCP - General Internal Medicine 08/20/23 documented as of this encounter
--- OUTSIDE RECORDS SUMMARY | 2025-09-25 07:24 | XMS_ITS | Encounter Summary ---
Author Organization [employer] Address [address] [place] [address] Care Team Providers Care Varnishing Unit Operator Name Role Phone Yi Thompson MD Primary Care Pro vider Reason for Visit * Reason Comments Med Change Request Encounter Details Date Type Department Care Team ([facility] Contact Info) Description 03/15/2024 Refill [facility] MEDICINE [address] [place] [address] Leticia Plunkett, ANP [address] [place] [address] Sinus pressure Social History Tobacco Use Types [...] EST Office Visit [facility] MEDICINE [address] [place] [address] Yi Thompson MD [address] [place] [address] documented as of this encounter Goals Goal [...] documented as of this encounter Care Teams Varnishing Unit Operator Relationship Specialty Start Date End Date Yi Thompson MD [address] [place] [address] PCP - General Internal Medicine 08/20/23 documented as of this encounter
--- OUTSIDE RECORDS SUMMARY | 2025-09-25 07:24 | XMS_ITS | Encounter Summary ---
Author Organization [employer] Address [address] [place] [address] Care Team Providers Care Jr. Java Developer Name Role Phone Juliet Bird Primary Care Provider Yi Jessica MD Primary Care Pro vider Reason for Visit * Reason Comments Med Refill Encounter Details Date Type Department Care Team (Late Contact Info) Description 06/28/2023 Refill [facility] [address] [place] [address] Juliet Bird FNP Social History Tobacco Use [...] Description 10/10/2025 9:15 AM EST Office Visit [facility] MEDICINE [address] [place] [address] Yi Thompson MD [address] [place] [address] documented as of this encounter Visit Diagnoses Not on filedocumented in this encounter Care Teams Jr. Java Developer Relationship Specialty Start Date End Date Juliet Bird FNP PCP - General Family Medicine 01/22/23 08/19/23 Yi Thompson MD [address] [place] [address] PCP - General Internal Medicine 08/20/23 documented as of this encounter
--- OUTSIDE RECORDS SUMMARY | 2025-09-25 07:24 | XMS_ITS | Data Portability ---
Author Organization [place] [facility], Allergy Address [address] [address] Assessment No assessment recorded. Plan of Treatment [...] contr ast No observ ation record ed. [facility] Radiology ([facility]) [address] [facility] [address], [place], [address], 07/12/2024 17:28:21 07/12/20 24 03/07/2024 CT, neck, [...] Available [employer] 4 03:27:19 Oropharyn geal dysphagia [id number] Active 2023 CHANTEL MEYER MD [address] [place] [address], [place], [address] , [facility] 4 14:16:46 Acquired vocal cord palsy [id number] Active 2023 CHANTEL MEYER MD [address] [place] [address], [place], [address] , [facility] 4 14:27:26 Problem Notes None recorded. Procedures Surgical History Date Name Laterality Status Provider Name and Address Organization Details Recorded Time 07/12/2024 FFL_RE completed CHANTEL MEYER MD [address] [place] [address],[place] [address], [place], [address], [facility] 07/12/2024 14:20:56 Imaging Results None recorded. Procedure Notes None recorded. Medical Equipment None Reported. Allergies Allergen ID Allergen Name Allergen Category Reaction Reaction Severity Criticality Documentation Date Start Date Code Code System Note Provider Name and Address Organization Details Recorded Time 00917 Product containin g penicilli n (product) medicatio n other Not available Not available 03/29/2024 17925 8001 SNOMED React ion: unkno wn, unspe cifie d;; Not Available [facility] 4 01:03:20 Medications Name Sig Start Date Stop Date Status Note LastModified by Organization Details LastModified Time medbox status USE DIRECTED active Not Available Not Available No t Available freestyle lite test strips strp active Not Available Not Available Not Available losartan 50 mg tablet active Medicati on ID: 17098 Br and Name: losartan Send Method: E-Prescr [...] 40 mg tablet [place] Medicati [place] ID: 89566 Br and Name: lovastat in Send Method: E-Prescr ibed Sub s Allowed: subs OK Medic ationGen ericName : lovastat in Not Available Not Available Not Available amlodipin e 5 mg tablet active Medicati on ID: 26063 Br and Name: amlodipi ne Send Method: [...] Not Available Not Available No t Available [place] Thyroid 15 mg tablet active Medicati on ID: 25166 Br and Name: [place] Thyroid Send Method: E-Prescr ibed Sub s Allowed: subs OK Medic ationGen ericName : [place] Thyroid Not Available Not Available Not Available amitripty line 25 mg tablet active Medicati on ID: 50485 Br and Name: amitript yline Se nd Method: E-Prescr ibed Sub s Allowed: subs OK Medic ationGen ericName : amitript yline Not Available Not Available Not Available Protonix 40 mg intraveno us solution active Medicati on ID: 76204 Br and Name: Protonix Send Method: E-Prescr [...] 150 mg capsule active Medicati on ID: 10995 Br and Name: ranitidi ne HCl Send Method: E-Prescr ibed Sub s Allowed: subs OK Medic ationGen ericName : ranitidi ne HCl Not Available Not Available Not Available hydrochlo rothiazid e 25 mg tablet active Medicati on ID: 52447 Br and Name: hydrochl orothiaz ro Send [...] 17 gram/dose oral powder USE DIRECTED BY [facility] active Not Available Not Available No t [...] release 24hr (osmotic) active Medicati on ID: 95299 Br and Name: metformi n Send Method: [...] tablet,de layed release [place]ati [place] ID: 90139 Du ration Value: 30 Brand Name: omeprazo [...] Updated DateTime 07/12/2024 165.1 cm 27.3 kg/m2 19931.15 g [place] [facility] 07/12/2024 14:07:22 Social History None recorded. Functional Status None recorded. Mental Status None recorded. Family History Nothing Reported. Medical History No medical history recorded. Gynecological HistoryNo gynecological history recorded. Obstetrics History GPAL:G 0 P 0 0 0 0 Past Encounters Encounter ID Performer Location Encounter Start Date Encounter Closed Date Diagnosis/Indication Diagnosis SNOMED-CT Code Diagnosis ICD10 Code Diagnosis IMO Codes Diagnosis Note [id number] CHANTEL MEYER MD [facility] [address] [address] 07/12/2024 13:49:31 07/12/2024 16:53:30 Oropharyngeal dysphagia 51690092 R13.12 Likely due to esophageal dysmotilit y. VC paralysis is a factor but doesn't explain her dysphagia to solids. I recommend she discuss GI referral with her PCP. I would be glad to see her as needed. I personally reviewed her imaging reports. Acquired v ocal cord palsy [id number] J38.00 Likely from initial surgery 14 years [...] Name 07/12/2024 1 [facility] [id number] Giuseppe Rodriguez [id number] Sapna Garcia 07/12/2024 1 [facility] [id number] Giuseppe Rodriguez [id number] Sapna Garcia Notes Date Note Type [...] surgery. She had a swallow study at [facility]. She feels like food gets stuck. Has occasional choking with liquids. She has never smoked. She denies throat pain and SOB. I reviewed an Upper GI series which showed esophageal dysmotility. I also reviewed her CT neck with 02/2024 which showed possible right vocal cord paralysis. contrast CHANTEL MEYER MD [address] [place] [address], [place], [address], [facility] - [facility] 07/12/2024 14:28:36 OBGyn Episode No OBEpisode recorded.
--- OUTSIDE RECORDS SUMMARY | 2025-09-25 07:24 | XMS_ITS | Encounter Summary ---
Author Organization [employer] Address [address] [place] [address] Care Team Providers Care Eligibility Manager Name Role Phone Yi Thompson MD Primary Care Pro vider Reason for Visit * Reason Comments Med Refill Encounter Details Date Type Department Care Team ([facility] st Contact Info) Description 06/02/2024 Refill [facility] MEDICINE [address] [place] [address] Yi Thompson MD 230 [place] [address] Social History Tobacco Use Types Packs/Day Years [...] Description 10/10/2025 9:15 AM EST Office Visit [facility] MEDICINE [address] [place] [address] [phone] Yi Thompson MD [address] [place] [address] [phone] documented as of this encounter Goals Goal [...] documented as of this encounter Care Teams Eligibility Manager Relationship Specialty Start Date End Date Yi Thompson MD [address] [place] [address] PCP - General Internal Medicine 08/20/23 documented as of this encounter
--- OUTSIDE RECORDS SUMMARY | 2025-09-25 07:24 | XMS_ITS | Encounter Summary ---
Author Organization [employer] Address [address] [facility] [address], [place] [address] Care Team Providers Care Sane Rn Name Role Phone Yi Thompson MD Primary Care Pro vider Reason for Visit * Reason Comments Med Refill Encounter Details Date Type Department Care Team ([facility] st Contact Info) Description 09/15/2023 Refill [facility] MEDICINE 230 [place] [address] Juliet Bird, MARY ELLEN Primary hypertension; Type 2 diabetes mellitus without complication, without long-term current use of insulin (CMS/[facility]) Social History Tobacco Use Types [...] Description 10/10/2025 9:15 AM EST Office Visit [facility] MEDICINE [address] [place] [address] [phone] Yi Thompson MD 230 [place], [place] [phone] documented as of this encounter Visit Diagnoses Diagnosis Primary hypertension Unspecified essential hypertension Type 2 diabetes mellitus without complication, without long-term current use of insulin (HCC) documented in this encounter Care Teams Sane Rn Relationship Specialty Start Date End Date Yi Thompson MD [address] [place] [address] [phone] PCP - General Internal Medicine 08/20/23 documented as of this encounter
--- OUTSIDE RECORDS SUMMARY | 2025-09-25 07:24 | XMS_ITS | Encounter Summary ---
Author Organization [employer] Address [address] [place] [address] Care Team Providers Care Websphere Commerce Developer Name Role Phone Yi Thompson MD Primary Care Pro vider Reason for Visit * Reason Comments Med Refill Encounter Details Date Type Department Care Team ([facility] st Contact Info) Description 09/12/2024 Refill [facility] MEDICINE 230 [place] [address] Yi Thompson MD 230 [place] [address] Type 2 diabetes mellitus without complication, without long-term current use of insulin ([facility]) Social History Tobacco Use [...] the past 12 months, has t he [employer], gas, oil or water company threatened to [...] Description 10/10/2025 9:15 AM EST Office Visit [facility] MEDICINE [address] [place] [address] Yi Thompson MD [address] [place] [address] documented as of this encounter Goals Goal [...] documented as of this encounter Care Teams Websphere Commerce Developer Relationship Specialty Start Date End Date Yi Thompson MD [address] [place] [address] PCP - General Internal Medicine 08/20/23 documented as of this encounter
--- OUTSIDE RECORDS SUMMARY | 2025-09-25 07:24 | XMS_ITS | Encounter Summary ---
Author Organization [employer] Address [address] [place] [address] Care Team Providers Care Retaining Room Cutter Name Role Phone Juliet Bird [facility] Primary Care Provider Yi Jessica MD Primary Care Pro vider Reason for Visit * Reason Comments Med Refill Encounter Details Date Type Department Care Team (Late Contact Info) Description 01/28/2023 Refill [facility] 230 [place], [place] [phone] [facility] 230 [place], [place] [phone] Primary hypertension Social History Tobacco Use Types [...] 10/10/2025 9:15 AM EST Office Visit [facility] [address] [place], [place] [phone] Yi Thompson MD 230 [place], [place] [phone] documented as of this encounter Visit Diagnoses Diagnosis Primary hypertension Unspecified essential hypertension documented in this encounter Care Teams Retaining Room Cutter Relationship Specialty Start Date End Date Juliet Bird FNP PCP - General Family Medicine 01/22/23 08/19/23 Yi Thompson MD [address] [place] [address] PCP - General Internal Medicine 08/20/23 documented as of this encounter
--- OUTSIDE RECORDS SUMMARY | 2025-09-25 07:24 | XMS_ITS | Encounter Summary ---
Author Organization [employer] Address [address] [place] [address] Care Team Providers Care Veneer Sample Maker Name Role Phone Yi Thompson MD Primary Care Pro vider Reason for Visit * Reason Comments Med Change Request Encounter Details Date Type Department Care Team ([facility] st Contact Info) Description 11/11/2023 Refill [facility] MEDICINE 230 [place] [address] [facility] [address] [place] [address] Viral upper respiratory illness Social History Tobacco [...] Description 10/10/2025 9:15 AM EST Office Visit [facility] MEDICINE [address] [place] [address] Yi Thompson MD [address] [place] [address] documented as of this encounter Visit Diagnoses Diagnosis Viral upper respiratory illness documented in this encounter Care Teams Veneer Sample Maker Relationship Specialty Start Date End Date Yi Thompson MD [address] [place] [address] PCP - General Internal Medicine 08/20/23 documented as of this encounter
--- OUTSIDE RECORDS SUMMARY | 2025-09-25 07:24 | XMS_ITS | Encounter Summary ---
Author Organization [employer] Address [address] [place] [address] Care Team Providers Care Washer Off Name Role Phone Yi Thompson MD Primary Care Pro vider Reason for Visit * Reason Onset Date Comments Call Back Request 04/25/2025 Encounter Details Date Type Department Care Team ([facility] Contact Info) Description 04/25/2025 Telephone [facility] MEDICINE 230 [place] [address] Yi Thompson MD [address] [place] [address] Call Back Request Social History Tobacco Use [...] PM EDT Telephone call from Norah at [facility] Physical Therapy Department: Norah, the Chemical PackagerMechanical Test Technician, informed that a referral has been received for the patient. However, the physical therapy provider would like to speak directly with the referring provider--not nursing staff--regarding the referral. When calling [facility] [place] at [phone], ask for Norah. She will transfer the call to the appropriate provider, as there is no direct line available. documented in this encounter Plan of Treatment Upcoming Encounters Date Type Department Care Team (Late st Contact Info) Description 10/10/2025 9:15 AM EST Office Visit [facility] MEDICINE [address] [place] [address] Yi Thompson MD 230 [place] [address] documented as of this encounter [...] documented as of this encounter Care Teams Washer Off Relationship Specialty Start Date End Date Yi Thompson MD [address] [place] [address] 284[address] PCP - General Internal Medicine 08/20/23 documented as of this encounter
--- OUTSIDE RECORDS SUMMARY | 2025-09-25 07:24 | XMS_ITS | Encounter Summary ---
Author Organization [employer] Address [address] [place] [address] Care Team Providers Care Seismographer Name Role Phone Yi Thompson MD Primary Care Pro vider Reason for Visit * Reason Onset Date Comments Nurse Triage 02/15/2024 Encounter Details Date Type Department Care Team ([facility] st Contact Info) Description 02/15/2024 Telephone [facility] [address] [place] [address] Yi Thompson MD [address] [place] [address] Nurse Triage Social History Tobacco Use Types [...] 02/15/2024 12:44 PM EDT Triage call with [place] Director Of Distance Learning ID [id number] Pt reports headache frontal and back of [...] 400pm. Pt is advised to come to [facility] which is open till 8pm this evening. [...] Tingling sensation The caller accepted this outcome Taiwanese speaker documented in this encounter Plan of Treatment Upcoming Encounters Date Type Department Care Team (Late st Contact Info) Description 10/10/2025 9:15 AM EST Office Visit [facility] [address] [place] [address] Yi Thompson MD [address] [place] [address] [phone] documented as of this encounter Visit Diagnoses Not on filedocumented in this encounter Additional Health Concerns Assessment Noted Time PHQ-9 Depression Total Score: 1 01/13/20 24 12:16 PM EST documented as of this encounter Care Teams Seismographer Relationship Specialty Start Date End Date Yi Thompson MD [address] [place] [address] [phone] PCP - General Internal Medicine 08/20/23 documented as of this encounter
--- OUTSIDE RECORDS SUMMARY | 2025-09-25 07:25 | XMS_ITS | Clinical Summary ---
Author Organization [employer] Address [address] [place] [address] [facility] [place] [address] Care Team Providers Care Gluten Settling Tender Name Role Phone Yi Thompson MD [...] pain. 40 tablet 1 02/22/20 25 Active Lancets 33G miscIndication s:Type 2 diabetes mellitus without complication, without long-term current use of insulin (HCC) USE TO TEST BLOOD SUGAR TWICE A DAY 100 each 11 04/06/20 25 Active Breo Ellipta 200-25 MCG/ACT aerosol powder 05/22/20 25 Active amitriptyline (Elavil) 10 MG tablet [...] Once per day. 90 tablet 05/26/20 25 Active glucose blood (Contour Next Test) test strip 1 each by Other route at noon and 1 each in the evening. 100 each 06/02/20 25 Active Ascorbic Acid (vitamin C) 250 MG tablet Take 1 tablet (250 mg) by mouth Once per day. 90 tablet 06/09/20 25 Active naloxone (Narcan) 4 mg/0.1 mL nasal spray Administer 1 spray (4 mg) into affected nostril(s) if needed for opioid reversal. May repeat every 2-3 minutes if needed, alternating nostrils, until medical assistance becomes available. 2 each 06/09/20 25 Active metFORMIN XR (Glucophage-XR ) 500 MG 24 hr tabletIndicati ons:Type 2 diabetes mellitus without complication, without long-term current use of insulin (HCC) TAKE 1 TABLET BY MOUTH TWICE DAILY AT NOON AND IN THE EVENING WITH MEALS DO NOT BREAK, CRUSH, DISSOLVE OR CHEW 180 tablet 2 06/29/20 Active pantoprazole (ProtoNix) 40 MG EC tablet TAKE 1 TABLET BY MOUTH EVERY MORNING 30 tablet 2 06/29/20 25 Active montelukast (Singulair) 10 MG tablet TAKE 1 TABLET BY MOUTH EVERYDAY AT NOON 30 tablet 2 07/24/20 25 Active Januvia 100 MG tabletIndicati ons:Type 2 diabetes mellitus without complication, without long-term current use of insulin (HCC) TAKE 1 TABLET BY MOUTH EVERY MORNING 90 tablet 1 09/21/20 25 Active Januvia 100 MG tabletIndicati ons:Type 2 diabetes mellitus without complication, without long-term current use of insulin (HCC) TAKE 1 TABLET BY MOUTH EVERY MORNING 90 tablet 1 04/06/20 25 025 Discontinued Active Problems Problem Noted Date Diagnosed Date Chronic right-sided low back pain with right-lenin ed sciatica 10/28/2024 Assessment & Plan (10/28/2024 9:46 AM EST): Will send for 300 mg gabapentin at bedtime as patient didn't have med on hand. Educated pt about anticipated side effects of medication including drowsiness. Consideration for PT once patient returns from [facility] in January. Chest pain at rest [...] 09/17/2023 Forgetfulness 04/15/2023 Overview (08/20/2023): Seen at [facility] on 07/15/2020 for right sided facial [...] for vascular referral once patient returns from [facility] in January. Irritable bowel syndrome with [...] Thyroid cancer ([facility]/HCC) 01/04/2019 Multiple joint pain 09/03/2018 04/15/20 Calcaneal spur 08/05/2018 09/17/2023 Gastroesophageal reflux disease 05/01/2014 04/15/2023 Encounters Date Type Department Care Team Description 09/21/2025 Refill [facility] [address] [place] [address] Yi Thompson MD Type 2 diabetes mellitus without complication, without long-term current use of insulin ([facility]) 08/25/2025 Orders Only GENERIC EXTERNAL DATA DEPARTMENT Provider, Generic External Data 08/23/2025 3:30 PM EDT Immunization [address] [address] Kaitlynn Faulkner, CAT Encounter for immunization 08/23/2025 Travel 08/16/2025 11:15 AM EDT Office Visit [address] [address] Tere Thompson NP Paronychia of finger of right hand (Primary Dx) 08/16/2025 Travel 08/15/[address] [address] Yi Thompson MD Nurse Triage 07/25/2025 Orders Only GENERIC EXTERNAL DATA DEPARTMENT Provider, Generic External Data 07/23/2025 Refill [facility] [address] [place] [address] Yi Thompson MD 07/21/2025 Orders Only [facility] External Provider, [facility] 07/20/[address] [address] Yi Thompson MD Call Back Request 07/03/2025 Results Follow-Up [address] [address] Leticia Plunkett ANP CBC auto differential 06/28/[address] [address] Yi Thompson MD oct recall 06/28/2025 Telephone [facility] [address] [place] [address] Yi Thompson MD Imaging Orders 06/28/2025 Refill [facility] [address] [place] [address] Yi Thompson MD Type 2 diabetes mellitus without complication, without long-term current use of insulin ([facility]) 06/26/2025 Results Follow-Up [facility] [address] [facility] [place] [address] Yi Thompson MD Culture, Urine, Routine, Comprehensive Metabolic Panel from Last 3 Months Immunizations Immunization Administration Dates Next Due Hep B, adult 08/09/2014,04/04/2014,03/02/2014 Influenza injectable quadriv alent IIV4 with preservative 08/13/2018,09/02/2016 Influenza injectable quadriv alent preservative free 09/17/2023,10/14/2022,11/01/2021,09/03,09/23/2019 Influenza, High Dose Seasona l, Preservative Free 08/23/2025 Influenza, IIV3, injectable 08/08/2014, 3 Influenza, Split [...] Description 10/10/2025 9:15 AM EST Office Visit [facility] [address] [place], [place] [phone] Yi Thompson MD [address] [place], [place] [phone] Health Maintenance Due Date Last Done Comments CT Colonography 1960 FIT DNA/Cologuard 1960 Sigmoidoscopy 1960 Diabetes: Foot Exam 1968 RSV Patients and Patients Aged 60 years or older (1 - Risk 60-74 years 1-dose series) 2018 COVID-19 Vaccine ( season) 2025 01/31/2022, 02/05/2021, 01/08/2021 Diabetes: Hemoglobin A1C 08/26/2025 025, 04/26/2025, 10/28/2024, [...] Completed 01/12/2024 Zoster Vaccines Completed 08/16/2024, 05/03/2024 Influenza Vaccine Completed 08/23/2025, , 10/14/2022, Additional history exists HIB Vaccines Aged Out No longer eligi [...] Procedure Name Priority Date/Time Associated Diagnosis Comments HEMATOXYLIN AND EOSIN STAIN Routine 08/25/2025 2:56 PM EDT GLUCOSE, WHOLE BLOOD Routine 08/25/2025 1:[address] ABDOMEN PELVIS WO CONTRAST Routine 08/02/2025 3:47 PM EDT Right lower quadrant pain CULTURE, URINE, ROUTINE Routine 07/25/20 9:13 AM EDT GLUCOSE, WHOLE BLOOD Routine 07/25/2025 7:11 AM EDT US PELVIS TRANSVAGINAL Routine 2:48 PM EDT MR BRAIN WO CONTRAST Routine 07/07/2025 4:44 PM EDT Memory loss ALBUMIN, RANDOM URINE W/CREATININE Routine 05/26/2025 10:35 AM EDT HEMOGLOBIN A1C Routine 05/26/2025 10:35 AM EDT LIPID PANEL, STANDARD Routine 05/26/2025 10:35 AM EDT FECAL GLOBIN BY IMMUNOCHEMISTRY Routine 05/26/2025 12:00 AM EDT BI US [...] Recently Relevant to Health Maintenance Results * Hematoxylin and Eosin Stain (08/25/2025 2:56 PM EDT) 08/25/2025 2:56 PM EDT 08/29/2025 9:35 AM EDT [facility]S - 08/30/2025 3:56 PM EDT ----- ------- Name: Sapna Herzog Age/Sex: 64/F : 1960 [id number]#: [id number] Attend Dr: Elizabeth Jaime MD Re08/25/25 Status: [facility] Location: [facility] Disch: ----- ------- SPEC : [id number] RECD: 08/29/25 STATUS: LORENA ZHAO NUM: [id number] JOSÉ: 08/25/25-1456 [facility] DR: Elizabeth Jaime MD ENTERED: 08/29/25 SP TYPE: Surgical OTHR DR: Yi Thompson MD ORDERED: HE Stain/6, Gross Micro L4/2 Diagnosis A. Colon, descending, polypectomy: Fragments of tubular adenoma; negative for high- grade dysplasia or carcinoma. B. Colon, transverse, polypectomy: Colonic mucosa with mild surface hyperplastic changes and prominent lymphoid aggregate. Clinical History Pre-Op Dx: Screening Post-Op Dx: Colon polyps, diverticulosis, hemorrhoids Microscopic Description A, B. Microscopic sections reviewed. Material Received A. Descending colon polyp B. Transverse colon polyp Gross Description Received in 2 parts. A. Received in formalin labeled descending colon polyp are fragments of day-white soft tissue measuring 0.2-1.1 cm in greatest dimension, forming an aggregate measuring 1.5 x 1.2 x 0.2 cm which is wrapped in lens paper and entirely submitted for microscopic examination, multiple pieces in cassette A. B. Received in formalin labeled transverse colon polyp are fragments of day-white soft tissue measuring 0.3-0.6 cm in greatest dimension, forming an aggregate measuring 0.9 x 0.8 x 0.2 cm which is wrapped in lens paper and entirely submitted for microscopic examination, multiple pieces in cassette B. ([facility]) IHC S/NG Disclaimer NOTE: Unless otherwise stated, all tissue is formalin-fixed and paraffin-embedded. Some or all of the immunohistochemical tests reported herein may have been developed and their performance characteristics determined by [facility]. They have not been cleared or approved by the U.S. Food and Drug Administration (FDA). However, the FDA has determined that such clearance or approval is not necessary. This laboratory is certified under the Clinical Laboratory Improvement Amendments of 1988 (CLIA) as qualified CONTINUED ON NEXT PAGE ----- ------- Name: Fany RadhaSapna Age/Sex: 64/F : 1960 Unit#: [id number] Attend Dr: Elizabeth Jaime MD Re08/25/25 Status: [facility] [place] [place] Location: [facility] Disch: ----- ------- SPEC : [id number] RECD: 08/29/25 STATUS: LORENA ZHAO NUM: [id number] JOSÉ: 08/25/25 [facility] DR: Elizabeth Jaime MD ENTERED: 08/29/25 SP TYPE: Surgical OTHR DR: Yi Thompson MD ORDERED: HE Stain/6, Gross Micro L4/2 IHC S/NG Disclaimer (Continued) to perform high complexity clinical laboratory testing. Copies To: Yi Thompson MD [facility] [address] [place] [address] Elizabeth Jaime MD [facility] [address] [place] [address] [email or web address] ----- ------- Signed (signature on file) Weston Swartz MD 08/30/25 1556 ----- ------- END OF REPORT us Generic External Data Provider LAB BLOOD ORDERAB LES Final Result [facility] [address] [place] [address] [phone] * (ABNORMAL) Glucose, Whole Blood (08/25/2025 1:36 PM EDT) Only the most recent of2 resultswithin the time period is included. Glucose, Whole Blood 129(H) 60 - 115 mg/dL [facility] Comment:METER #: [id number] 08/25/2025 1:36 PM EDT 08/25/2025 1:40 PM EDT us Generic External Data Provider LAB BLOOD ORDERAB LES Final Result [facility] [address] [place] [phone] * CT Abdomen Pelvis w/o Contrast (08/02/2025 3:47 PM EDT) Anatomical Region Laterality Modality Body, Pelvis, Abdomen Computed T omography 08/02/2025 3:47 PM EDT Narrative 08/02/2025 4:27 PM EDT [address] [address] [address] Scan Report Signed Patient: Sapna Herzog MR#: M [id number] : 1960 Acct:[id number] Age/Sex: 64 / F ADM Date: 08/02/25 Loc: HO.CT Attending Dr: Cathleen Lomax MACHINE [employer] Ordering Physician: Cathleen Lomax NP Date of Service: 08/02/25 Procedure(s): CT abdomen pelvis wo IV con Accession Number(s): [id number] cc: Yi Thompson MD; Cathleen Lomax NP Report Number: [id number]: Total DLP = 385.00 mGy-cm Reason for [...] 08/02/25 1624 DD/ 1547 TD/TT: 08/02/25 1607 [employer]: Procedure Note Donotuseinterpreter, Image - 08/02/[address] [address] [address] Scan Report Signed Patient: Sapna Herzog CMR#: M [id number] : 9Acct:[id number] Age/Sex: 64 / FADM Date: 08/02/25 Loc: HO.CT Attending Dr: Cathleen Lomax MACHINE [employer] Ordering Physician: Cathleen Lomax NP Date of Service: 08/02/25 Procedure(s): CT abdomen pelvis wo IV con Accession Number(s): [id number] cc: Yi Thompson MD; Cathleen Lomax MACHINE [employer] Report Number: [id number]: Total DLP = 385.00 mGy-cm Reason for [...] 08/02/25 1624 DD/ 1547 TD/TT: 08/02/25 1607 [employer]: [facility] CT PROCEDURES Edited Result - Final * Culture, Urine, Routine (07/25/2025 9:13 AM EDT) Urine Urine specimen from urinary conduit / Unknown 07/25/2025 9:13 AM EDT 07/25/2025 9:19 AM EDT Comment:Urine Cath Narrative [facility] - 07/27/2025 8:31 AM EDT Urine Culture No growth. Specimen Source: Urine Catheterized Generic External Data Provider LAB MICROBIOLOGY - GENERAL ORDERABLES Final Result [facility] [address] [place] [phone] * US Pelvis Transvaginal (07/21/2025 2:48 PM EDT) Anatomical Region Laterality Modality Pelvis Ultrasound 07/21/2025 2:48 PM EDT Narrative 07/21/2025 2:49 PM EDT [address] [address] Ultrasound Report Signed Patient: Sapna Herzog MR#: M [id number] : 1960 Acct:[id number] Age/Sex: 64 / F ADM Date: 07/21/25 Loc: HO.US Attending Dr: Domenic Chew MD Ordering Physician: Domenic Chew MD Date of Service: 07/21/25 Procedure(s): US pelvic and transvaginal Accession Number(s): [id number] cc: Yi Thompson MD; Domenic Chew MD [...] Allen MD in OV> 07/21/25 1448 DD/ TD/TT: 07/21/251447 [employer]: Procedure Note Donotuseinterpreter, Image - 07/21/2025 [place] [address] Ultrasound Report Signed Patient: Sapna Herzog CMR#: M [id number] : 9Acct:[id number] Age/Sex: 64 / FADM Date: 07/21/25 Loc: HO.US Attending Dr: Domenic Chew MD Ordering Physician: Domenic Chew MD Date of Service: 07/21/25 Procedure(s): US pelvic and transvaginal Accession Number(s): [id number] cc: Yi Thompson MD; Domenic Chew MD [...] OV> 07/21/25 1448 DD/ 47 TD/TT: 07/21/251447 [employer]: us [facility] External Provider IMG US PROCEDURES Final Result * MR Brain w/o Contrast (07/07/2025 4:44 PM EDT) Anatomical Region Laterality Modality Brain Magnetic Resonan ce 07/07/2025 4:44 PM EDT Narrative 07/07/2025 6:03 PM EDT [place] [address] Magnetic Resonance Report Signed Patient: Sapna Herzog MR#: M [id number] : 1960 Acct:[id number] Age/Sex: 64 / F ADM Date: 07/07/25 Loc: HO.MRI Attending Dr: Yi Cleary MD Ordering Physician: Yi Thompson MD Date of Service: 07/07/25 Procedure(s): MR head/brain wo con Accession Number(s): [id number] cc: Yi Thompson MD EXAMINATION: MR BRAIN [...] of the medulla syndrome. Electronically signed by: Lciha Wynn MD 07/07/2025 06:00 PM EDT RP Dictated By: Licha Wynn MD Signed By: <Electronically signed by Licha Wynn MD in OV> 07/07/25 1800 DD/ 1644 TD/TT: 07/07/25 1701 [employer]: Procedure Note Donotuseinterpreter, Image - 07/07/2025 [place] [address] Magnetic Resonance Report Signed Patient: Sapna Herzog CMR#: M [id number] : 1960cct:[id number] Age/Sex: 64 / FADM Date: 07/07/25 Loc: HO.MRI Attending Dr: Yi Cleary MD Ordering Physician: Yi Thompson MD Date of Service: 07/07/25 Procedure(s): MR head/brain wo con Accession Number(s): [id number] cc: Yi Thompson MD EXAMINATION: MR BRAIN [...] 07/07/25 1800 DD/ 1644 TD/TT: 07/07/25 1701 [employer]: us Yi Cleary MD IMG MRI PROCEDURE S Final Result * Albumin, Random Urine W/Creatinine (05/26/2025 10:35 AM EDT) Creatinine, Urine 84.43 mg/dL [facility] Microalbumin Urine <5.0 mg/L [facility] Microalbum Creatinine Ratio Ur TNP <30 ug/mg cr [facility] Comment:Unable to calculate albumin/creatinine ratio due to lowmicroalbumin or creatinine result. 05/26/2025 10:3 5 AM EDT 05/26/2025 11:11 AM EDT us Yi Cleary MD LAB URINE ORDERAB LES Final Result [facility] [address] [place] [phone] [phone] * (ABNORMAL) Hemoglobin A1c (05/26/2025 10:35 AM EDT) Hemoglobin A1c 7.1(H) <6.0 % [facility] Comment:Hemoglobin A1C Refer ence Range Adults: 4.8 - 6.0 % Non diabetic: < 6.0 % Goal: < 7.0 %Additional Action Suggested: > 8.0 %Note: Hemoglobin A1c results are invalid for patients with abnormal amounts of HbF. Blood transfusions may impact the HbA1c concentration in the patient sample. Estimated Average Glucose 157 mg/dL [facility] Comment:eAG = Estimated ave rage glucose which is %A1C expressed asaverage glucose, using the formula of the P7M-RgtsalrMtczsep Glucose study (ADAG), Diabetes Care, Vol.31,#8,Jun. 2007 05/26/2025 10:3 5 AM EDT 05/26/2025 11:19 AM EDT Yi Cleary MD LAB BLOOD ORDERAB LES Final Result [facility] [address] [place] [phone] * (ABNORMAL) Lipid Panel, Standard (05/26/2025 10:35 AM EDT) Triglycerides 221(H) <150 mg/dL [facility] Comment:Desirable Triglyceri de: less than 150 mg/dLBorderline High Triglyceride 150-199 mg/dLHigh Triglyceride: 200-499 mg/dLVery High Triglyceride: greater than or equal to 5OO mg/dL Cholesterol 243(H) <200 mg/dL [facility] Comment:Desirable Cholestero l: less than 200 mg/dLBorderline High Cholesterol: 200-239 mg/dLHigh Cholesterol: greater than 239 mg/dL LDL Cholesterol Calculated 157(H) <100 mg/dL [facility] Comment:Desirable LDL: less than 100 mg/dLNear Optimal/Above Optimal LDL: 110- 129 mg/dLBorderline High LDL: 130-159 mg/dLHigh LDL: 160-189 mg/dLVery High LDL: greater than or equal to 190 mg/dL HDL Cholesterol 42 >40 mg/dL [facility] Comment:Desirable HDL: great er than 40 mg/dL Note: This HDL assay may give artificially low results in patients with liver disease. 05/26/2025 10:3 5 AM EDT 05/26/2025 11:17 AM EDT Yi Cleary MD LAB BLOOD ORDERAB LES Final Result [facility] [address] [place] [address] [phone] * Fecal Globin By Immunochemistry (05/26/2025 12:00 AM EDT) Fecal Globin By Immunochemistry SEE NOTE [facility] [place] [facility] Comment: FECAL GLOBIN BY IMMUNOCHEMISTRY Micro Number: [id number] Test Status: Final Specimen Source: Insure (tm) [...] Address City/[facility] Co de Phone Number [address], [place] [address] [facility] [place] [employer] [facility] [address] [place] [address] * BI US Breast Limited Left (02/07/2025 10:44 AM EDT) Anatomical Region Laterality Modality Breast Left Ultrasound 02/07/2025 10:4 4 AM EDT Narrative 02/07/2025 11:07 AM EDT [facility] [place] [address] Ultrasound Report Signed Patient: Sapna Herzog MR#: M [id number] : 1960 Acct:[id number] Age/Sex: 64 / F ADM Date: 02/07/25 Loc: HO.MAMMO Attending Dr: Peter Tate CNM Ordering Physician: PETER TATE CNM Date of Service: 02/07/25 Procedure(s): US breast LT limited mamm only Accession Number(s): [id number] cc: Yi Thompson MD; PETER TATE CNM [...] 02/07/25 1104 DD/ 1044 TD/TT: 02/07/25 1058 [employer]: Procedure Note Donotuseinterpreter, Image - 02/07/2025 [facility] [address] [place] [address] [place] [address] Ultrasound Report Signed Patient: Sapna Herzog CMR#: M [id number] : 9Acct:[id number] Age/Sex: 64 / FADM Date: 02/07/25 Loc: HO.MAMMO Attending Dr: Peter Tate CNM Ordering Physician: PETER TATE CNM Date of Service: 02/07/25 Procedure(s): US breast LT limited mamm only Accession Number(s): [id number] cc: Yi Thompson MD; PETER TATE CNM [...] 02/07/25 1104 DD/ 1044 TD/TT: 02/07/25 1058 [employer]: Peter Tate CNM IMG US PROCEDURES Edited Result - Final * Hm Colonoscopy (11/03/2024 6:36 PM EST) Historical Provider HEALTH MAINTENANCE Final Result * Hepatitis C Antibody with Reflex to HCV, RNA, Quantitative, Real-Time PCR (01/12/2024 8:56 AM EST) Hepatitis C Antibody Nonreactive Nonreactive [facility] Comment:Antibodies to HCV no t detected; does not exclude early acuteHCV infection. Blood Venous blood specimen / Unknown 01/12/2024 8:56 AM EST 01/12/2024 11:12 AM EST Yi Cleary MD LAB BLOOD ORDERAB LES Final Result [facility] [address] [place] [phone] * THINPREP PAP (10/25/2020 10:02 AM [...] along with historic and current clinical information. Machinist Outside : SEE COMMENT [facility] Comment: QUINCY, CT(ASCP) CT screening location: [place] [address] Interpretation/R esult: Negative for intraepithelial lesion or malignancy. [facility] LMP: NONE GIVEN [facility] Prev. BX: NONE GIVEN [facility] Prev. PAP: NONE GIVEN [facility] LAB [facility] SOURCE: None given [facility] Statement Of Adequacy: SEE COMMENT [facility] Comment: Satisfactory for evaluation. Endocervical/transformation zone component present. 10/25/2020 10:0 2 AM EST Peter Tate [facility] LAB PATHOLOGY ORDERABLES Final Result Performing Organization Address [facility] Phone Number [facility] [address] * HPV mRNA E6/E7 (10/25/2020 10:02 AM EST) HPV nRNA E6/E7 Not Detected Not Detected [facility] Comment: This test was performed using the APTIMA HPV Assay ([employer] This assay detects E6/E7 viral messenger RNA (mRNA) from 14 high-risk HPV types (16,18,31,33,35,39,45,51,52,56,58,59,66,68). The analytical performance characteristics of this assay have been determined by [facility]. The modifications have not been cleared or approved by the FDA. This assay has been validated pursuant to the CLIA regulations and is used for clinical purposes. 10/25/2020 10:0 2 AM EST Peter CADET LAB BLOOD ORDERABLES Cammy l Result Performing Organization Address [facility] Phone Number [facility] [address] from Last 3 Months or Most Recently Relevant to Health Maintenance Insurance [employer] Care Teams Gluten Settling Tender Relationship Specialty Start Date End Date Yi Thompson MD [address] [place] [phone] PCP - General Internal Medicine 08/20/23
--- OUTSIDE RECORDS SUMMARY | 2025-09-25 07:25 | XMS_ITS | Encounter Summary ---
Author Organization [employer] Address [address] [place] [address] Care Team Providers Care Clinical Molecular Geneticist Name Role Phone Juliet Bird Primary Care Provider Yi Jessica MD Primary Care Pro vider Reason for Visit * Reason Onset Date Comments triage 02/27/2023 Encounter Details Date Type Department Care Team (Late st Contact Info) Description 02/27/2023 Telephone [facility] MED[facility] [address] [place] [address] Juliet Bird FNP triage Social History Tobacco [...] 02/27/2023 4:58 PM EDT Triage call with [place] Heat Curer ID [id number] Pt reports a couple of days of [...] now The caller accepted this outcome speaks khmer documented in this encounter Plan of Treatment Upcoming Encounters Date Type Department Care Team (Late st Contact Info) Description 10/10/2025 9:15 AM EST Office Visit [facility] MED[facility]INE [address] [place] [address] Yi Thompson MD [address] [place] [address] documented as of this encounter Visit Diagnoses Not on filedocumented in this encounter Care Teams Clinical Molecular Geneticist Relationship Specialty Start Date End Date Juliet Bird FNP PCP - General Family Medicine 01/22/23 08/19/23 Yi Thompson MD [address] [place] [address] PCP - General Internal Medicine 08/20/23 documented as of this encounter
== END 2025-09-25 07:22 | disposition home or self-care (01) ==
LOC: HO.MRI 07:21
PROVIDERS: PCP Student in an Organized Health Care Education/Training Program; Visit Provider Internal Medicine
DX: Z13.89 Encounter for screening for other disorder (principal)

== ENCOUNTER 2025-09-26 06:21 | Outpatient (REF) | payer OTHER, SELFPAY ==
--- NOTE | ~2025-09-26 | FL_ITS ---
EXAMINATION: FLUOROSCOPY GUIDANCE FOR NEEDLE PLACEMENT CLINICAL INFORMATION: M46.1 - Sacroiliitis, not elsewhere classified COMPARISON: None available. TECHNIQUE: Fluoroscopy guidance for pain management procedure. FINDINGS: Images demonstrate needle placement and contrast injection over the right sacroiliac joint. FLUOROSCOPY TIME: 10 seconds DOSE AREA PRODUCT: 445 mgy/sq cm. 2 submitted images. FL/FL guidance in treatment room IMPRESSION: Fluoroscopy guidance for pain management procedure. Electronically signed by: Munira Florence MD 09/26/2025 02:34 PM EST
--- OUTSIDE RECORDS SUMMARY | 2025-09-26 06:24 | XMS_ITS | Encounter Summary ---
Author Organization [employer] Address [address] [place] [address] Care Team Providers Care Gas Fitter Apprentice Name Role Phone Yi Thompson MD Primary Care Pro vider Reason for Referral * Consultation (Routine) - Authorized Specialty Diagnoses / Procedures Referred By Contac t Referred To Contact Pharmacy Diagnoses Hypertension Maria Del Carmen Meza MD [address] [place] [address] Phone: tel: fax: Referral ID Status Reason Start Date Expiration Date Visits Requested Visits Authorized [id number] Authorized Continuity of Care 04/03/2025 04/03/2026 6 6 Encounter Details Date Type Department Care Team ([facility] st Contact Info) Description 03/30/2025 Orders Only [facility] MEDICINE [address] [place] [address] Maria Del Carmen Meza MD [address] [place], [place] [phone] Hypertension (Primary Dx) Social History Tobacco Use [...] 10/10/2025 9:15 AM EST Office Visit [facility] MEDICINE [address] [place] [address] Yi Thompson MD 230 [place] [address] Scheduled Referrals Name Type Priority Associated Diagnoses [...] AM EDT Narrative 04/12/2025 9:59 AM EDT [place] [address] Magnetic Resonance Report Signed Patient: Sapna Herzog MR#: [id number] : 1960 Acct:[id number] Age/Sex: 64 / F ADM Date: 04/12/25 Loc: HO.MRI Attending Dr: Pratik Estes MD Ordering Physician: Pratik Estes MD Date of Service: 04/12/25 Procedure(s): MR cervical spine wo con Accession Number(s): [id number] cc: Pratik Estes MD; Yi Thompson MD [...] 04/12/25 0956 DD/ 0821 TD/TT: 04/12/25 0837 Multi Operation Forming Machine Setter: Procedure Note Donotuseinterpreter, Image - 04/12/[address] [address] Magnetic Resonance Report Signed Patient: Sapna Herzog CMR#: [id number] : 9Acct:[id number] Age/Sex: 64 / FADM Date: 04/12/25 Loc: HO.MRI Attending Dr: Pratik Estes MD Ordering Physician: Pratik Estes MD Date of Service: 04/12/25 Procedure(s): MR cervical spine wo con Accession Number(s): [id number] cc: Pratik Estes MD; Yi Thompson MD [...] Salcido MD Signed By: <Electronically signed by Adnres Armstrong MDin OV> 04/12/2556 DD/ 0 TD/TT: 04/12/25 0837 Multi Operation Forming Machine Setter: [facility] External Provider IMG MRI PROCEDURES Final Result documented in this encounter Visit Diagnoses Diagnosis Hypertension- Primary Unspecified essential hypertension documented in this encounter Additional Health Concerns Assessment Noted Time PHQ-9 Depression Total Score: 1 01/13/20 24 12:16 PM EST documented as of this encounter Care Teams Gas Fitter Apprentice Relationship Specialty Start Date End Date Yi Thompson MD [address] [place] [address] PCP - General Internal Medicine 08/20/23 documented as of this encounter
--- OUTSIDE RECORDS SUMMARY | 2025-09-26 06:24 | XMS_ITS | Encounter Summary ---
Author Organization [employer] Address [address] [place] [address] Care Team Providers Care Electron Gun Inspector Name Role Phone Yi Thompson MD Primary Care Pro vider Reason for Visit * Reason Comments Med Refill Encounter Details Date Type Department Care Team ([facility] st Contact Info) Description 09/12/2024 Refill [facility] MEDICINE 230 [place] [address] Yi Thompson MD 230 [place] [address] Type 2 diabetes mellitus without complication, without long-term current use of insulin ([facility]) Social History [...] the past 12 months, has t he [employer], gas, oil or water company threatened to [...] EST Office Visit [facility] MEDICINE [address] [place] [address] Yi Thompson MD [address] [place] [address] documented as of this encounter Goals Goal [...] documented as of this encounter Care Teams Electron Gun Inspector Relationship Specialty Start Date End Date Yi Thompson MD [address] [place] [phone] PCP - General Internal Medicine 08/20/23 documented as of this encounter
--- OUTSIDE RECORDS SUMMARY | 2025-09-26 06:24 | XMS_ITS | Encounter Summary ---
Author Organization [employer] Address [address] [place] [address] Care Team Providers Care Blanket Cutter Hand Name Role Phone Yi Thompson MD Primary Care Pro vider Reason for Visit * Reason Comments Med Change Request Encounter Details Date Type Department Care Team ([facility] st Contact Info) Description 11/11/2023 Refill [facility] MEDICINE 230 [place] [address] [facility] 230 [place] [address] Viral upper respiratory illness Social History Tobacco [...] Description 10/10/2025 9:15 AM EST Office Visit [facility] MEDICINE [address] [place] [address] Yi Thompson MD [address] [place] [address] documented as of this encounter Visit Diagnoses Diagnosis Viral upper respiratory illness documented in this encounter Care Teams Blanket Cutter Hand Relationship Specialty Start Date End Date Yi Thompson MD [address] [place] [address] PCP - General Internal Medicine 08/20/23 documented as of this encounter
--- OUTSIDE RECORDS SUMMARY | 2025-09-26 06:24 | XMS_ITS | Encounter Summary ---
Author Organization [employer] Address [address] [facility] [place], [place] [address] Care Team Providers Care Core Driller Helper Name Role Phone Yi Thompson MD Primary Care Pro vider Reason for Visit * Reason Comments Med Refill Encounter Details Date Type Department Care Team ([facility] st Contact Info) Description 09/15/2023 Refill [facility] 230 [place] [address] Juliet Bird, MARY ELLEN Primary hypertension; Type 2 diabetes mellitus without complication, without long-term current use of insulin ([facility]) Social History Tobacco Use Types Packs/Day Years [...] Description 10/10/2025 9:15 AM EST Office Visit [facility] [address] [place] [address] [phone] Yi Thompson MD 230 [place], [place] [phone] documented as of this encounter Visit Diagnoses Diagnosis Primary hypertension Unspecified essential hypertension Type 2 diabetes mellitus without complication, without long-term current use of insulin (HCC) documented in this encounter Care Teams Core Driller Helper Relationship Specialty Start Date End Date Yi Thompson MD [address] [place] [address] [phone] PCP - General Internal Medicine 08/20/23 documented as of this encounter
--- OUTSIDE RECORDS SUMMARY | 2025-09-26 06:24 | XMS_ITS | Encounter Summary ---
Author Organization [employer] Address [address] [place] [address] Care Team Providers Care Cash Office Worker Name Role Phone Yi Thompson MD Primary Care Pro vider Reason for Visit * Reason Comments Med Refill Encounter Details Date Type Department Care Team (Late st Contact Info) Description 09/21/2025 Refill [facility] MEDICINE 230 [place] [address] Yi Thompson MD 230 [place] [address] Type 2 diabetes mellitus without complication, without [...] the past 12 months, has t he [employer], gas, oil or water company threatened to [...] Description 10/10/2025 9:15 AM EST Office Visit [facility] MED[facility] [address] [place] [address] Yi Thompson MD 230 [place] [address] documented as of this encounter Goals Goal [...] documented as of this encounter Care Teams Cash Office Worker Relationship Specialty Start Date End Date Yi Thompson MD [address] [place] [address] PCP - General Internal Medicine 08/20/23 documented as of this encounter
--- OUTSIDE RECORDS SUMMARY | 2025-09-26 06:24 | XMS_ITS | Encounter Summary ---
Author Organization [employer] Address [address] [place] [address] Care Team Providers Care Scrap Preparation Supervisor Name Role Phone Yi Thompson MD Primary Care Pro vider Reason for Visit * Reason Comments Med Change Request Encounter Details Date Type Department Care Team ([facility] st Contact Info) Description 11/08/2023 Refill [facility] 230 [place] [address] [facility] 230 [place] [address] Viral upper respiratory illness Social History Tobacco [...] Office Visit [facility] MEDICINE [address] [place] [address] [phone] Yi Thompson MD [address] [place] [address] documented as of this encounter Visit Diagnoses Diagnosis Viral upper respiratory illness documented in this encounter Care Teams Scrap Preparation Supervisor Relationship Specialty Start Date End Date Yi Thompson MD [address] [place] [address] [phone] PCP - General Internal Medicine 08/20/23 documented as of this encounter
--- OUTSIDE RECORDS SUMMARY | 2025-09-26 06:24 | XMS_ITS | Encounter Summary ---
Author Organization [employer] Address [address] [place] [address] Care Team Providers Care Psychiatry Adult Physician Name Role Phone Yi Thompson MD Primary Care Pro vider Reason for Visit * Reason Onset Date Comments Nurse Triage 02/15/2024 Encounter Details Date Type Department Care Team ([facility] st Contact Info) Description 02/15/[address] [facility] MEDICINE 230 [place] [address] Yi Thompson MD 230 [place] [address] Nurse Triage Social History Tobacco Use Types [...] 02/15/2024 12:44 PM EDT Triage call with [place] [employer] Operator [employer] ID [id number] Pt reports headache frontal and back of [...] 400pm. Pt is advised to come to [facility] which is open till 8pm this [...] Tingling sensation The caller accepted this outcome Faroese speaker documented in this encounter Plan of Treatment Upcoming Encounters Date Type Department Care Team (Late st Contact Info) Description 10/10/2025 9:15 AM EST Office Visit [facility] MEDICINE 230 [place] [address] Yi Thompson MD [address] [place] [address] [phone] documented as of this encounter Visit Diagnoses Not on filedocumented in this encounter Additional Health Concerns Assessment Noted Time PHQ-9 Depression Total Score: 1 01/13/20 24 12:16 PM EST documented as of this encounter Care Teams Psychiatry Adult Physician Relationship Specialty Start Date End Date Yi Thompson MD [address] [place] [address] [phone] PCP - General Internal Medicine 08/20/23 documented as of this encounter
--- OUTSIDE RECORDS SUMMARY | 2025-09-26 06:24 | XMS_ITS | Encounter Summary ---
Author Organization [employer] Address [address] [place] [address] Care Team Providers Care Country Director Name Role Phone Yi Thompson MD Primary Care Pro vider Reason for Visit * Reason Onset Date Comments Call Back Request 04/25/2025 Encounter Details Date Type Department Care Team ([facility] Contact Info[facility] Description 04/25/2025 Telephone [facility] MEDICINE 230 [place] [address] Yi Thompson MD [address] [place] [address] Call Back Request Social History Tobacco Use [...] encounter Miscellaneous Notes * Telephone Encounter - Jlaen Anton - 04/25/2025 2:06 PM EDT Telephone call from Norah at [facility] Physical Therapy Department: Norah, the Gas Meter Repair SupervisorFinish Patcher, informed that a referral has been received for the patient. However, the physical therapy provider would like to speak directly with the referring provider--not nursing staff--regarding the referral. When calling [facility] Physical Therapy at [phone], ask for Norah. She will transfer the call to the appropriate provider, as there is no direct line available. documented in this encounter Plan of Treatment Upcoming Encounters Date Type Department Care Team (Late st Contact Info) Description 10/10/2025 9:15 AM EST Office Visit [facility] MEDICINE [address] [place] [address] Yi Thompson MD 230 [place] [address] documented as of this encounter [...] documented as of this encounter Care Teams Country Director Relationship Specialty Start Date End Date Yi Thompson MD [address] [place] [address] PCP - General Internal Medicine 08/20/23 documented as of this encounter
--- OUTSIDE RECORDS SUMMARY | 2025-09-26 06:24 | XMS_ITS | Encounter Summary ---
Author Organization [employer] Address [address] [place] [address] Care Team Providers Care Electronic Equipment Set Up Operator Name Role Phone Yi Thompson MD Primary Care Pro vider Reason for Visit * Reason Comments Med Refill Encounter Details Date Type Department Care Team ([facility] st Contact Info) Description 05/20/2024 Refill [facility] [address] [place] [address] Name, MD Ronny 230 [place] [address] Social History Tobacco Use Types Packs/Day Years [...] 10/10/2025 9:15 AM EST Office Visit [facility] MED[facility]INE [address] [place] [address] [phone] Yi Thompson MD [address] [place] [address] [phone] documented as of this encounter Goals Goal [...] as of this encounter Care Teams Electronic Equipment Set Up Operator Relationship Specialty Start Date End Date Yi Thompson MD [address] [place] [phone] PCP - General Internal Medicine 08/20/23 documented as of this encounter
--- OUTSIDE RECORDS SUMMARY | 2025-09-26 06:24 | XMS_ITS | Encounter Summary ---
Author Organization [employer] Address [address] [place] [address] Care Team Providers Care Scrap Metal Processing Worker Name Role Phone Yi Thompson MD Primary Care Pro vider Encounter Details Date Type Department Care Team ([facility] st Contact Info) Description 11/06/2024 Orders Only [facility] MEDICINE 230 [place] [address] Provider, MD Lux Social History Tobacco Use [...] Description 10/10/2025 9:15 AM EST Office Visit [facility] MEDICINE [address] [place] [address] Yi Thompson MD [address] [place] [address] documented as of this encounter Goals Goal [...] documented as of this encounter Care Teams Scrap Metal Processing Worker Relationship Specialty Start Date End Date Yi Thompson MD [address] [place] [phone] PCP - General Internal Medicine 08/20/23 documented as of this encounter
--- OUTSIDE RECORDS SUMMARY | 2025-09-26 06:24 | XMS_ITS | Encounter Summary ---
Author Organization [employer] Address [address] [place] [address] Care Team Providers Care Block Cableman Name Role Phone Juliet Bird [facility] Primary Care Provider Yi Jessica MD Primary Care Pro vider Reason for Visit * Reason Comments Med Refill Encounter Details Date Type Department Care Team (Late Contact Info) Description 01/28/[address] [facility] MEDICINE 230 [place], [place] [phone] [facility] 230 [place], [place] [phone] Primary hypertension Social History Tobacco Use Types [...] Description 10/10/2025 9:15 AM EST Office Visit [facility] MEDICINE 230 [place], [place] [phone] Yi Thompson MD 230 [place], [place] [phone] documented as of this encounter Visit Diagnoses Diagnosis Primary hypertension Unspecified essential hypertension documented in this encounter Care Teams Block Cableman Relationship Specialty Start Date End Date Juliet Bird FNP PCP - General Family Medicine 01/22/23 08/19/23 Yi Thompson MD [address] [place] [address] PCP - General Internal Medicine 08/20/23 documented as of this encounter
--- OUTSIDE RECORDS SUMMARY | 2025-09-26 06:24 | XMS_ITS | Encounter Summary ---
Author Organization [employer] Address [address] [place] [address] Care Team Providers Care Public Health Registrar Name Role Phone Yi Thompson MD Primary Care Pro vider Reason for Visit * Reason Comments Med Change Request Encounter Details Date Type Department Care Team ([facility] Contact Info) Description 03/15/2024 Refill [facility] MEDICINE 230 [place] [address] Leticia Plunkett, ANP [address] [place] [address] Sinus pressure Social History Tobacco Use Types [...] Description 10/10/2025 9:15 AM EST Office Visit [facility] MEDICINE [address] [place] [address] Yi Thompson MD [address] [place] [address] documented as of this encounter Goals Goal [...] documented as of this encounter Care Teams Public Health Registrar Relationship Specialty Start Date End Date Yi Thompson MD [address] [place] [address] PCP - General Internal Medicine 08/20/23 documented as of this encounter
--- OUTSIDE RECORDS SUMMARY | 2025-09-26 06:24 | XMS_ITS | Encounter Summary ---
Author Organization [employer] Address [address] [place] [address] Care Team Providers Care Billboard Poster Name Role Phone Yi Thompson MD Primary Care Pro vider Reason for Visit * Reason Comments Med Refill Encounter Details Date Type Department Care Team ([facility] st Contact Info) Description 05/03/2024 Refill [facility] MEDICINE 230 [place] [address] Yi Thompson MD 230 [place] [address] Social History Tobacco Use Types Packs/Day Years [...] Description 10/10/2025 9:15 AM EST Office Visit [facility] MEDICINE [address] [place] [address] [phone] Yi Thompson MD [address] [place] [address] [phone] documented as of this encounter Goals Goal [...] documented as of this encounter Care Teams Billboard Poster Relationship Specialty Start Date End Date Yi Thompson MD [address] [place] [phone] PCP - General Internal Medicine 08/20/23 documented as of this encounter
--- OUTSIDE RECORDS SUMMARY | 2025-09-26 06:24 | XMS_ITS | Encounter Summary ---
Author Organization [employer] Address [address] [place] [address] Care Team Providers Care Auditor/Quality Name Role Phone Juliet Bird Primary Care Provider Yi Jessica MD Primary Care Pro vider Reason for Visit * Reason Onset Date Comments triage 02/27/2023 Encounter Details Date Type Department Care Team (Late st Contact Info) Description 02/27/2023 Telephone [facility] MEDICINE 230 [place] [address] Juliet Bird FNP triage Social History Tobacco [...] 02/27/2023 4:58 PM EDT Triage call with [place] ID [id number] Pt reports a couple of days of [...] now The caller accepted this outcome speaks luxembourgish documented in this encounter Plan of Treatment Upcoming Encounters Date Type Department Care Team (Late st Contact Info) Description 10/10/2025 9:15 AM EST Office Visit [facility] MEDICINE [address] [place] [address] Yi Thompson MD [address] [place] [address] documented as of this encounter Visit Diagnoses Not on filedocumented in this encounter Care Teams Auditor/Quality Relationship Specialty Start Date End Date Juliet Bird FNP PCP - General Family Medicine 01/22/23 08/19/23 Yi Thompson MD [address] [place] [address] PCP - General Internal Medicine 08/20/23 documented as of this encounter
--- OUTSIDE RECORDS SUMMARY | 2025-09-26 06:24 | XMS_ITS | Encounter Summary ---
Author Organization [employer] Address [address] [place] [address] Care Team Providers Care Home Energy Rater Name Role Phone Yi Thompson MD Primary Care Pro vider Reason for Visit * Reason Comments Med Refill Encounter Details Date Type Department Care Team ([facility] st Contact Info) Description 06/02/2024 Refill [facility] MEDICINE 230 [place] [address] Yi Thompson MD 230 [place] [address] Social History Tobacco Use Types Packs/Day Years [...] 9:15 AM EST Office Visit [facility] MEDICINE [address] [place] [address] [phone] Yi Thompson MD [address] [place] [address] [phone] documented as of this encounter Goals Goal [...] documented as of this encounter Care Teams Home Energy Rater Relationship Specialty Start Date End Date Yi Thompson MD [address] [place] [address] PCP - General Internal Medicine 08/20/23 documented as of this encounter
--- OUTSIDE RECORDS SUMMARY | 2025-09-26 06:24 | XMS_ITS | Clinical Summary ---
Author Organization [employer] Address [address] [place] [address] [address] [address] Care Team Providers Care Director Of Land Acquisition Name Role Phone Yi Thompson MD [...] Forgetfulness 04/15/2023 Overview (08/20/2023): [place] [place] [facility] [place] for right sided [...] improve. 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 04/09/2023 04/15/2023 Thyroid cancer ([facility]/HCC) 01/04/2019 Multiple joint pain 09/03/2018 04/15/20 Calcaneal spur 08/05/2018 09/17/2023 Gastroesophageal reflux disease 05/01/2014 04/15/2023 Encounters Date Type Department Care Team Description 09/21/2025 Refill [facility] [address] [place] [address] Yi Thompson MD Type 2 diabetes mellitus without complication, without long-term current use of insulin ([facility]) 08/25/2025 Orders Only GENERIC EXTERNAL DATA DEPARTMENT Provider, Generic External Data 08/23/2025 3:30 PM EDT Immunization [address] [address] Kaitlynn Faulkner, CAT Encounter for immunization 08/23/2025 Travel 08/16/2025 11:15 AM EDT Office Visit [address] [address] Tere Thompson NP Paronychia of finger of right hand (Primary Dx) 08/16/2025 Travel 08/15/[address] [address] Yi Thompson MD Nurse Triage 07/25/2025 Orders Only GENERIC EXTERNAL DATA DEPARTMENT Provider, Generic External Data 07/23/2025 Refill [facility] [address] [place] [address] Yi Thompson MD 07/21/2025 Orders Only [facility] External Provider, [facility] 07/20/[address] [address] Yi Thompson MD Call Back Request 07/03/2025 Results Follow-Up [address] [address] Leticia Plunkett ANP CBC auto differential 06/28/[address] [address] Yi Thompson MD oct recall 06/28/2025 Telephone [facility] [address] [facility] [address] Yi Thompson MD Imaging Orders 06/28/2025 Refill [facility] [address] [place] [address] Yi Thompson MD Type 2 diabetes mellitus without complication, without long-term current use of insulin ([facility]) 06/26/2025 Results Follow-Up [facility] 230 [facility] [place] [place] [address] Yi Thompson MD Culture, Urine, Routine, Comprehensive [...] Description 10/10/2025 9:15 AM EST Office Visit [facility] [address] [place], [place] [phone] Yi Thompson MD [address] [place], [place] [phone] Health Maintenance Due Date Last Done Comments [...] 2:56 PM EDT 08/29/2025 9:35 AM EDT [facility] - 08/30/2025 3:56 PM EDT ----- ------- Name: Sapna Herzog Age/Sex: 64/F : 1960 [id number]#: [id number] Attend Dr: Elizabeth Jaime MD Re08/25/25 Status: [facility] Location: [facility] Disch: ----- ------- SPEC : [id number] RECD: 08/29/25 STATUS: LORENA ZHAO NUM: [id number] JOSÉ: 08/25/25-[address] [facility] [address]: Elizabeth Jaime MD ENTERED: 08/29/25 SP [...] microscopic examination, multiple pieces in cassette B. ([facility]) IHC S/NG Disclaimer NOTE: Unless otherwise stated, all tissue is formalin-fixed and paraffin-embedded. Some or all of the immunohistochemical tests reported herein may have been developed and their performance characteristics determined by [facility]. They have not been cleared or approved by the U.S. Food and Drug Administration (FDA). However, the FDA has determined that such clearance or approval is not necessary. This laboratory is certified under the Clinical Laboratory Improvement Amendments of 1988 (CLIA) as qualified CONTINUED ON NEXT PAGE ----- ------- Name: Fany RadhaSapna Age/Sex: 64/F : 1960 Unit#: [id number] Attend Dr: Elizabeth Jaime MD Re08/25/25 Status: [facility] Location: [facility] Disch: ----- ------- SPEC : [id number] RECD: 08/29/25 STATUS: LORENA ZHAO NUM: [id number] JOSÉ: 08/25/[address] [facility] [address]: Elizabeth Jaime MD ENTERED: 08/29/25 SP TYPE: Surgical OTHR DR: Yi Thompson MD ORDERED: HE Stain/6, Gross Micro L4/2 IHC S/NG Disclaimer (Continued) to perform high complexity clinical laboratory testing. Copies To: Yi Thompson MD [facility] [address] [place] [address] Elizabeth Jaime MD [facility] [address] [place] [address] [email or web address] ----- ------- Signed (signature on file) Weston Swartz MD 08/30/25 1556 ----- ------- END OF REPORT us Generic External Data Provider LAB BLOOD ORDERAB LES Final Result [facility] [address] [place] [address] [phone] * (ABNORMAL) Glucose, Whole Blood (08/25/2025 1:36 PM EDT) Only the most recent of2 resultswithin the time period is included. Glucose, Whole Blood 129(H) 60 - 115 mg/dL [facility] Comment:METER #: [id number] 08/25/2025 1:36 PM EDT 08/25/2025 1:40 PM EDT us Generic External Data Provider LAB BLOOD ORDERAB LES Final Result [facility] [address] [place] [phone] * CT Abdomen Pelvis w/o Contrast (08/02/2025 3:47 PM EDT) Anatomical Region Laterality Modality Body, Pelvis, Abdomen Computed T omography 08/02/2025 3:47 PM EDT Narrative 08/02/2025 4:27 PM EDT [address] [address] [address] Scan Report Signed Patient: Sapna Herzog MR#: M [id number] : 1960 Acct:[id number] Age/Sex: 64 / F ADM Date: 08/02/25 Loc: HO.CT Attending Dr: Cathleen Lomax EMBEDDED SOFTWARE ARCHITECT Ordering Physician: Cathleen Lomax NP Date of Service: 08/02/25 Procedure(s): CT abdomen pelvis wo IV con Accession Number(s): [id number] cc: Yi Thompson MD; Cathleen Lomax NP Report Number: [id number]: Total DLP = 385.00 mGy-cm Reason for [...] 08/02/25 1624 DD/ 1547 TD/TT: 08/02/25 1607 Health Inspector Food: Procedure Note Donotuseinterpreter, Image - 08/02/[address] [address] [address] Scan Report Signed Patient: Sapna Herzog CMR#: M [id number] : 9Acct:[id number] Age/Sex: 64 / FADM Date: 08/02/25 Loc: HO.CT Attending Dr: Cathleen Lomax EMBEDDED SOFTWARE ARCHITECT Ordering Physician: Cathleen Lomax NP Date of Service: 08/02/25 Procedure(s): CT abdomen pelvis wo IV con Accession Number(s): [id number] cc: Yi Thompson MD; Cathleen Lomax EMBEDDED SOFTWARE ARCHITECT Report Number: [id number]: Total DLP = 385.00 mGy-cm Reason for [...] 08/02/25 1624 DD/ 1547 TD/TT: 08/02/25 1607 Health Inspector Food[facility] IM CT PROCEDURES Edited Result - Final * Culture, Urine, Routine (07/25/2025 9:13 AM EDT) Urine Urine specimen from urinary conduit / Unknown 07/25/2025 9:13 AM EDT 07/25/2025 9:19 AM EDT Comment:Urine Cath Narrative [facility] - 07/27/2025 8:31 AM EDT Urine Culture No growth. Specimen Source: Urine Catheterized Generic External Data Provider LAB MICROBIOLOGY - GENERAL ORDERABLES Final Result [facility] [address] [place] [phone] * US Pelvis Transvaginal (07/21/2025 2:48 PM EDT) Anatomical Region Laterality Modality Pelvis Ultrasound 07/21/2025 2:48 PM EDT Narrative 07/21/2025 2:49 PM EDT [address] [address] Ultrasound Report Signed Patient: Sapna Herzog MR#: M [id number] : 1960 Acct:[id number] Age/Sex: 64 / F ADM Date: 07/21/25 Loc: HO.US Attending Dr: Domenic Chew MD Ordering Physician: Domenic Chew MD Date of Service: 07/21/25 Procedure(s): US pelvic and transvaginal Accession Number(s): [id number] cc: Yi Thompson MD; Domenic Chew MD [...] in OV> 07/21/25 1448 DD/ TD/TT: 07/21/251447 Health Inspector Food: Procedure Note Donotuseinterpreter, Image - 07/21/2025 [place] [address] Ultrasound Report Signed Patient: Sapna Herzog CMR#: M [id number] : 9Acct:[id number] Age/Sex: 64 / FADM Date: 07/21/25 Loc: HO.US Attending Dr: Domenic Chew MD Ordering Physician: Domenic Chew MD Date of Service: 07/21/25 Procedure(s): US pelvic and transvaginal Accession Number(s): [id number] cc: Yi Thompson MD; Domenic Chew MD [...] OV> 07/21/25 1448 DD/ 47 TD/TT: 07/21/251447 Health Inspector Food: us [facility] External Provider IMG US PROCEDURES Final Result * MR Brain w/o Contrast (07/07/2025 4:44 PM EDT) Anatomical Region Laterality Modality Brain Magnetic Resonan ce 07/07/2025 4:44 PM EDT Narrative 07/07/2025 6:03 PM EDT [place] [address] Magnetic Resonance Report Signed Patient: Sapna Herzog MR#: M [id number] : 1960 Acct:[id number] Age/Sex: 64 / F ADM Date: 07/07/25 Loc: HO.MRI Attending Dr: Yi Cleary MD Ordering Physician: Yi Thompson MD Date of Service: 07/07/25 Procedure(s): MR head/brain wo con Accession Number(s): [id number] cc: Yi Thompson MD EXAMINATION: MR BRAIN [...] 07/07/25 1800 DD/ 1644 TD/TT: 07/07/25 1701 Health Inspector Food: Procedure Note Donotuseinterpreter, Image - 07/07/2025 [place] [address] Magnetic Resonance Report Signed Patient: Sapna Herzog CMR#: M [id number] : 1960cct:[id number] Age/Sex: 64 / FADM Date: 07/07/25 Loc: HO.MRI Attending Dr: Yi Cleary MD Ordering Physician: Yi Thompson MD Date of Service: 07/07/25 Procedure(s): MR head/brain wo con Accession Number(s): [id number] cc: Yi Thompson MD EXAMINATION: MR BRAIN [...] 07/07/25 1800 DD/ 1644 TD/TT: 07/07/25 1701 Health Inspector Food: us Yi Cleary MD IMG MRI PROCEDURE S Final Result * Albumin, Random Urine W/Creatinine (05/26/2025 10:35 AM EDT) Creatinine, Urine 84.43 mg/dL [facility] Microalbumin Urine <5.0 mg/L [facility] Microalbum Creatinine Ratio Ur TNP <30 ug/mg cr [facility] Comment:Unable to calculate albumin/creatinine ratio due to lowmicroalbumin or creatinine result. 05/26/2025 10:3 5 AM EDT 05/26/2025 11:11 AM EDT us Yi Cleayr MD LAB URINE ORDERAB LES Final Result [facility] [address] [place] [address] [phone] * (ABNORMAL) Hemoglobin A1c (05/26/2025 10:35 AM EDT) Hemoglobin A1c 7.1(H) <6.0 % [facility] Comment:Hemoglobin A1C Refer ence Range Adults: 4.8 - 6.0 % Non diabetic: < 6.0 % Goal: < 7.0 %Additional Action Suggested: > 8.0 %Note: Hemoglobin A1c results are invalid for patients with abnormal amounts of HbF. Blood transfusions may impact the HbA1c concentration in the patient sample. Estimated Average Glucose 157 mg/dL [facility] Comment:eAG = Estimated ave rage glucose which is %A1C expressed asaverage glucose, using the formula of the K8C-DykxchzOqzwhxa Glucose study (ADAG), Diabetes Care, Vol.31,#8,Jun. 2007 05/26/2025 10:3 5 AM EDT 05/26/2025 11:19 AM EDT Yi Cleary MD LAB BLOOD ORDERAB LES Final Result [facility] [address] [place] [phone] * (ABNORMAL) Lipid Panel, Standard (05/26/2025 10:35 AM EDT) Triglycerides 221(H) <150 mg/dL [facility] Comment:Desirable Triglyceri de: less than 150 mg/dLBorderline High Triglyceride 150-199 mg/dLHigh Triglyceride: 200-499 mg/dLVery High Triglyceride: greater than or equal to 5OO mg/dL Cholesterol 243(H) <200 mg/dL [facility] Comment:Desirable Cholestero l: less than 200 mg/dLBorderline High Cholesterol: 200-239 mg/dLHigh Cholesterol: greater than 239 mg/dL LDL Cholesterol Calculated 157(H) <100 mg/dL [facility] Comment:Desirable LDL: less than 100 mg/dLNear Optimal/Above Optimal LDL: 110- 129 mg/dLBorderline High LDL: 130-159 mg/dLHigh LDL: 160-189 mg/dLVery High LDL: greater than or equal to 190 mg/dL HDL Cholesterol 42 >40 mg/dL [facility] Comment:Desirable HDL: great er than 40 mg/dL Note: This HDL assay may give artificially low results in patients with liver disease. 05/26/2025 10:3 5 AM EDT 05/26/2025 11:17 AM EDT Yi Cleary MD LAB BLOOD ORDERAB LES Final Result [facility] [address] [place] [address] [phone] * Fecal Globin By Immunochemistry (05/26/2025 12:00 AM EDT) Fecal Globin By Immunochemistry SEE NOTE [facility] Comment: FECAL GLOBIN BY IMMUNOCHEMISTRY Micro Number: [id number] Test Status: Final Specimen Source: Insure (tm) [...] STOOLS ORDERABLES Final Result Performing Organization Address City/[facility] Co de Phone Number [address], [place] [address] [facility] [address] [place] [address] * BI US Breast Limited Left (02/07/2025 10:44 AM EDT) Anatomical Region Laterality Modality Breast Left Ultrasound 02/07/2025 10:4 4 AM EDT Narrative 02/07/2025 11:07 AM EDT [facility] [place] [address] Ultrasound Report Signed Patient: Sapna Herzog MR#: M [id number] : 1960 Acct:[id number] Age/Sex: 64 / F ADM Date: 02/07/25 Loc: HO.MAMMO Attending Dr: Peter Tate CNM Ordering Physician: PETER TATE CNM Date of Service: 02/07/25 Procedure(s): US breast LT limited mamm only Accession Number(s): [id number] cc: Yi Thompson MD; PETER TATE CNM [...] 02/07/25 1104 DD/ 1044 TD/TT: 02/07/25 1058 Health Inspector Food: Procedure Note Donotuseinterpreter, Image - 02/07/2025 [facility] [address] [place] [address] [place] [address] Ultrasound Report Signed Patient: Sapna Herzog CMR#: M [id number] : 9Acct:[id number] Age/Sex: 64 / FADM Date: 02/07/25 Loc: HO.MAMMO Attending Dr: Peter Tate CNM Ordering Physician: PETER TATE CNM Date of Service: 02/07/25 Procedure(s): US breast LT limited mamm only Accession Number(s): [id number] cc: Yi Thompson MD; PETER TATE CNM [...] 02/07/25 1104 DD/ 1044 TD/TT: 02/07/25 1058 Health Inspector Food: Peter Tate CNM IMG US PROCEDURES Edited Result - Final * Hm Colonoscopy (11/03/2024 6:36 PM EST) Historical Provider HEALTH MAINTENANCE Final Result * Hepatitis C Antibody with Reflex to HCV, RNA, Quantitative, Real-Time PCR (01/12/2024 8:56 AM EST) Hepatitis C Antibody Nonreactive Nonreactive [facility] Comment:Antibodies to HCV no t detected; does not exclude early acuteHCV infection. Blood Venous blood specimen / Unknown 01/12/2024 8:56 AM EST 01/12/2024 11:12 AM EST Yi Cleary MD LAB BLOOD ORDERAB LES Final Result [facility] [address] [place] [phone] * THINPREP PAP (10/25/2020 10:02 AM [...] along with historic and current clinical information. Farm Operations Manager : SEE COMMENT [facility] Comment: [place], CT(ASCP) CT screening location: [place] [address] Interpretation/R esult: Negative for intraepithelial lesion or malignancy. [facility] LMP: NONE GIVEN [facility] Prev. BX: NONE [facility]IVEN [facility] Prev. PAP: NONE GIVEN [facility] SYSTEM SOURCE: None given [facility] Statement Of Adequacy: SEE COMMENT [facility] Comment: Satisfactory for evaluation. Endocervical/transformation zone component present. 10/25/2020 10:0 2 AM EST Peter Tate [facility] LAB PATHOLOGY ORDERABLES Final Result Performing Organization Address [facility] Phone Number [facility] [address] * HPV mRNA E6/E7 (10/25/2020 10:02 AM EST) HPV nRNA E6/E7 Not Detected Not Detected [facility] Comment: This test was performed using the APTIMA HPV Assay ([employer] This assay detects E6/E7 viral messenger RNA (mRNA) from 14 high-risk HPV types (16,18,31,33,35,39,45,51,52,56,58,59,66,68). The analytical performance characteristics of this assay have been determined by [facility]. The modifications have not been cleared or approved by the FDA. This assay has been validated pursuant to the CLIA regulations and is used for clinical purposes. 10/25/2020 10:0 2 AM EST Peter CADET LAB BLOOD ORDERABLES Cammy l Result Performing Organization Address [facility] Phone Number [facility] [address] from Last 3 Months or Most Recently Relevant to Health Maintenance Insurance [employer] Care Teams Director Of Land Acquisition Relationship Specialty Start Date End Date Yi Thompson MD [address] [place] [phone] PCP - General Internal Medicine 08/20/23
--- OUTSIDE RECORDS SUMMARY | 2025-09-26 06:24 | XMS_ITS | Encounter Summary ---
Author Organization [employer] Address [address] [place] [address] Care Team Providers Care Fly Raiser Lockstitch Name Role Phone Juliet Bird Primary Care Provider Yi Jessica MD Primary Care Pro vider Reason for Visit * Reason Comments Med Refill Encounter Details Date Type Department Care Team (Late Contact Info) Description 06/28/2023 Refill [facility] [address] [place] [phone] Juliet Bird FNP Social History Tobacco Use [...] 10/10/2025 9:15 AM EST Office Visit [facility] [address] [place] [phone] Yi Thompson MD [address] [place] [address] documented as of this encounter Visit Diagnoses Not on filedocumented in this encounter Care Teams Fly Raiser Lockstitch Relationship Specialty Start Date End Date Juliet Bird FNP PCP - General Family Medicine 01/22/23 08/19/23 Yi Thompson MD [address] [place] [phone] PCP - General Internal Medicine 08/20/23 documented as of this encounter
== END 2025-09-26 06:22 | disposition home or self-care (01) ==
LOC: CF 06:21
PROVIDERS: Visit Provider Anesthesiology
DX: M53.3 Sacrococcygeal disorders, not elsewhere classified (principal); G89.29 Other chronic pain
CPT/HCPCS: 27096; J2003; J2795; Q9967

== ENCOUNTER 2025-09-26 12:38 | Outpatient (AMB) | payer OTHER, SELFPAY ==
[2025-09-26 12:55] VITALS: BP 135/89; PULSE 107; RESP 16; O2SAT 100; BMI 27.2
--- NOTE | 2025-09-26 12:55 | A.OFFVIS_ITS ---
Vital Signs 09/26/25 12:55 09/26/25 13:56 Height 5 ft 2 in Weight 149 lb BMI 27.2 BP 135/89 130/63 Blood Pressure Location Lt brachial Lt brachial Position Sitting Sitting Respiration 16 16 Pulse 107 H 102 H Pulse Source Pulse Oximeter Pulse Oximeter Pulse Oximetry (%) 100 100 Oxygen Delivery Method Room Air Room Air Intake Visit Reasons: (R) Diagnostic SIJ Injection Allergies Penicillins (PENICILLINS) Allergy (Intermediate, Verified 08/16/25 13:29) [facility] Medical History Type 2 diabetes mellitus with polyneuropathy Bladder pain Headache Cognitive disorder Cervical dystonia Palpitations Non-cardiac chest pain Pelvic pain Leg pain Lower abdominal pain Gross hematuria Toe pain Right knee pain Effusion, right knee Dysuria Pelvic pain in female Hematuria Mass of spine Hematuria DM2 (diabetes mellitus, type 2) Nail deformity Paronychia Failure of spinal cord stimulator Thymoma Pulmonary nodules Thyroid cancer Blood in urine Constipation by delayed colonic transit Tubular adenoma of colon Gastritis Hypertension Dyslipidemia Post-surgical hypothyroidism Primary thyroid cancer Vitamin D deficiency Surgical History History of thymectomy History of back surgery Hx of colonoscopy Hx of thyroidectomy Hx of hernia repair Hx of section Hx of hysterectomy History of esophagogastroduodenoscopy (EGD) Family History Father Stroke Heart attack Mother Diabetes mellitus Family/Other Family history of cancer Sister Stomach cancer Family/Other Thyroid cancer Social History Household Members: Spouse, Family and Other Household Members Other:: grandson Housing: Apartment Are you a primary home care manager to a significant other at home: No Do you presently have visiting nurse or other home services: No Alcohol intake: former Comment: counts correct Patient Tobacco Use Status: Never used Tobacco Tobacco use type: Cigarette Second Hand Smoke Exposure: No service: No Sexual orientation: Straight/Heterosexual Gender identity: Female Female Reproductive History Menstrual Age of Menarche: 13 Physical Exam Vital Signs: Last Vital Signs Pulse 107 H 09/26/25 12:55 Resp 16 09/26/25 12:55 BP 135/89 09/26/25 12:55 Pulse Ox 100 09/26/25 12:55 Oxygen Delivery Method Room Air 09/26/25 12:55 BMI result Body Mass Index 27.2 Assessment & Plan Assessment & Plan (1) Chronic right SI joint pain: Code(s): M53.3 - Sacrococcygeal disorders, not elsewhere classified; G89.29 - Other chronic pain Category: Medical (2) Sacroiliac joint dysfunction of right side: Code(s): M53.3 - Sacrococcygeal disorders, not elsewhere classified Category: Medical Plan Diagnostic right sacroiliac joint injection. the risks, benefits and alternatives were discussed with the patient and informed consent was obtained, patient was placed in the prone position and padded to foster comfort. Time out was performed delineating correct site and side of the procedure , name and of the patient, patient participated in time out procedure. The lower back and upper buttocks of the patient were prepped with ChloraPrep and draped with sterile self adhesive utility towels. C-arm was brought over the operating field and picture of the right SI joint was demonstrated on the screen. Tilting C-arm contralateral to the left the posterior silhouette of the sacroiliac joint was superimposed on anterior silhouette of the sacroiliac joint. The point slightly medial to the sacroiliac joint silhouette was injected with lidocaine 2%, forming skin wheal. After that 22 gauge 3-1/2 inch spinal needle was inserted through the skin wheal and advanced to were the sacroiliac joint in tunnel vision fashion. When the needle entered the sacroiliac joint capsule injection of the contrast was performed delineating intra-articular and minimally periarticular spread of the contrast. After that injection of the treatment solution of ropivacaine 0.5% 5 cc into the joint was performed. Upon completion of the injection needle was withdrawn sterile Band- Aid was applied. The patient tolerated the procedure well. Orders: Orders FL guidance in treatment room Today M46.1 - Sacroiliitis, not elsewhere classified Coding Level of Care Code Procedure Only Diagnoses Chronic right SI joint pain M53.3; G89.29 Sacroiliac joint dysfunction of right side M53.3
[2025-09-26 13:56] VITALS: BP 130/63; PULSE 102; RESP 16; O2SAT 100
== END 2025-09-26 13:56 | disposition home or self-care (01) ==
LOC: HO.PMCPRC 12:38
PROVIDERS: PCP Student in an Organized Health Care Education/Training Program; Visit Provider Anesthesiology
DX: M53.3 Sacrococcygeal disorders, not elsewhere classified (principal)
CPT/HCPCS: 27096

== ENCOUNTER 2025-09-28 14:02 | Outpatient (AMB) | payer OTHER, SELFPAY ==
[2025-09-28 14:06] VITALS: BP 162/74; PULSE 89; RESP 16; O2SAT 99; BMI 27.4
--- NOTE | 2025-09-28 14:06 | A.OFFVIS_ITS ---
Vital Signs 09/28/25 14:06 Height 5 ft 2 in Weight 150 lb BMI 27.4 BP 162/74 H Blood Pressure Location Rt brachial Position Sitting Respiration 16 Pulse 89 Pulse Source Pulse Oximeter Pulse Oximetry (%) 99 Oxygen Delivery Method Room Air Intake Visit Reasons: S/P (R) Diagnostic SIJ Injection Business Support Manager Required: Yes Accompanied by: Self / Same As Patient Allergies Penicillins (PENICILLINS) Allergy (Intermediate, Verified 09/28/25 14:10) HIVES HPI Comments Details: Sapna is in my office today reporting that she has severe axial back pain with no radiation to bilateral lower extremities. She received diagnostic sacroiliac joint injection which resulted in no pain improvement whatsoever. The pain is mostly on the right side of the lumbar spine. Previously she had diagnostic medial branch blocks resulted in no improvement. She continues occupational therapy and she will continuephysical therapy alongside with her occupational therapy. She continues to do home exercise program currently from her previous physical therapy exercises. She reports minimal short-lived pain improvement from home exercise program. she does not report any pain improvement from those modalities as well. I decided to send this patient for MRI of the lumbar spine. She will be invited in the office after MRI will be done. Prior: complains on pain in the right posterior hip with radiation into anterior hip and anterior thigh. She was under care in this office with right knee pain and she received [email or web address] spinal cord stimulator in the lumbar position L1-L2 L3 to stimulate the dorsal roots of L1-L2 and L3 to help her pain in the knee. Since then she had several falls and she was sent to CT scan with and without contrast. Unfortunately some impedances were lost at her spinal cord stimulator and MRI is contraindicated for her. On the CT scan all levels lumbar spine appears to be normal, see the full dictation as below, accept L5-S1 level where the degenerative disc and endplate changes as well as arthritis. . [facility] Medical History Type 2 diabetes mellitus with polyneuropathy Bladder pain Headache Cognitive disorder Cervical dystonia Palpitations Non-cardiac chest pain Pelvic pain Leg pain Lower abdominal pain Gross hematuria Toe pain Right knee pain Effusion, right knee Dysuria Pelvic pain in female Hematuria Mass of spine Hematuria DM2 (diabetes mellitus, type 2) Nail deformity Paronychia Failure of spinal cord stimulator Thymoma Pulmonary nodules Thyroid cancer Blood in urine Constipation by delayed colonic transit Tubular adenoma of colon Gastritis Hypertension Dyslipidemia Post-surgical hypothyroidism Primary thyroid cancer Vitamin D deficiency Surgical History History of thymectomy History of back surgery Hx of colonoscopy Hx of thyroidectomy Hx of hernia repair Hx of section Hx of hysterectomy History of esophagogastroduodenoscopy (EGD) Family History Father Stroke Heart attack Mother Diabetes mellitus Family/Other Family history of cancer Sister Stomach cancer Family/Other Thyroid cancer Social History Household Members: Spouse, Family and Other Household Members Other:: grandson Housing: Apartment Are you a primary memory care program director to a significant other at home: No Do you presently have visiting nurse or other home services: No Alcohol intake: former Comment: counts correct Patient Tobacco Use Status: Never used Tobacco Tobacco use type: Cigarette Second Hand Smoke Exposure: No service: No Sexual orientation: Straight/Heterosexual Gender identity: Female Female Reproductive History Menstrual Age of Menarche: 13 Review of Systems Const All systems reviewed & are unremarkable except as noted in HPI and below Physical Exam Const General: no acute distress and alert Orientation/consciousness: patient oriented x3 Chest Chest palpation & inspection: normal inspection of the chest Resp Effort & Inspection: normal respiratory effort, able to speak in complete sentences, normal respiratory pattern, no audible wheezes and no cough Cardio Jugular venous distension: no JVD Back/Spine/Pelvis Other: Jay Jay test is positive on the right, pelvic compression test is positive on the right, pelvic distraction test is positive on the right, Gaenslen test is positive on the right. Flexing forward and flexing backwards aggravate the pain but flexing backwards aggravate pain more than flexing forward. Loading test is positive on the right. Neuro General: patient oriented x3 Extrem Other: Mild bilateral knees effusion, tenderness on palpation, limited range of motion of both knees. Assessment & Plan Assessment & Plan (1) Spondylosis of lumbar region without myelopathy or radiculopathy: Code(s): M47.816 - Spondylosis without myelopathy or radiculopathy, lumbar region Category: Medical (2) Chronic pain syndrome: Code(s): G89.4 - Chronic pain syndrome Category: Medical (3) Sacroiliitis: Code(s): M46.1 - Sacroiliitis, not elsewhere classified Category: Medical (4) Sacroiliac joint dysfunction of right side: Code(s): M53.3 - Sacrococcygeal disorders, not elsewhere classified Category: Medical (5) Disc degeneration, lumbar: Code(s): M51.36 - Other intervertebral disc degeneration, lumbar region Category: Medical (6) Vertebrogenic low back pain: Code(s): M54.51 - Vertebrogenic low back pain Category: Medical Plan Diagnostic medial branch block resulted in no significant pain improvement longer than 6 hours. Some pain improvement for 1st 2 hours but at our 3 pain returned to the pre-injection level. After that I performed diagnostic right sacroiliac joint injection again with no pain improvement. Occupational therapy and physical therapy as well as home exercise program if patient short-lived minimal to moderate pain relief. She continues home exercise program. I will schedule her for the MRI of the lumbar spine to evaluate the pain of this patient. Orders: Orders MR lumbar spine wo con Today M51.36 - Other intervertebral disc degeneration, lumbar region, M54.51 - Vertebrogenic low back pain Coding Level of Care Code Est Pt Level 3 (51339) Diagnoses Spondylosis of lumbar region without myelopathy or radiculopathy M47.816 Chronic pain syndrome G89.4 Sacroiliitis M46.1 Sacroiliac joint dysfunction of right side M53.3 Disc degeneration, lumbar M51.36 Vertebrogenic low back pain M54.51
--- OUTSIDE RECORDS SUMMARY | 2025-09-28 17:25 | XMS_ITS | Encounter Summary ---
Author Organization [employer] Address [address] [place] [address] Care Team Providers Care Steam Conditioner Filling Name Role Phone Yi Thompson MD Primary Care Pro vider Reason for Visit * Reason Comments Med Refill Encounter Details Date Type Department Care Team ([facility] st Contact Info) Description 09/12/2024 Refill [facility] [address] [place] [address] Yi Thompson MD [address] [place] [address] Type 2 diabetes mellitus without complication, without long-term current use of insulin ([facility]) Social History Tobacco Use Types Packs/Day Years [...] the past 12 months, has t he [email or web address], gas, oil or water company threatened to [...] Description 10/10/2025 9:15 AM EST Office Visit [facility] [address] [place] [address] Yi Thompson MD [address] [place] [address] documented as of this encounter Goals Goal [...] documented as of this encounter Care Teams Steam Conditioner Filling Relationship Specialty Start Date End Date Yi Thompson MD [address] [place] [phone] PCP - General Internal Medicine 08/20/23 documented as of this encounter
--- OUTSIDE RECORDS SUMMARY | 2025-09-28 17:25 | XMS_ITS | Encounter Summary ---
Author Organization [email or web address] Address [address] [place] [address] Care Team Providers Care Tea Room Manager Name Role Phone Yi Thompson MD Primary Care Pro vider Reason for Referral * Consultation (Routine) - Authorized Specialty Diagnoses / Procedures Referred By Contac t Referred To Contact Pharmacy Diagnoses Hypertension Maria Del Carmen Meza MD [address] [place] [address] Phone: tel: fax: Referral ID Status Reason Start Date Expiration Date Visits Requested Visits Authorized [id number] Authorized Continuity of Care 04/03/2025 04/03/2026 6 6 Encounter Details Date Type Department Care Team ([facility] st Contact Info) Description 03/30/2025 Orders Only [facility] [address] [place] [phone] Maria Del Carmen Meza MD [address] [place], [place] [phone] Hypertension (Primary Dx) Social History Tobacco Use [...] Description 10/10/2025 9:15 AM EST Office Visit [facility] [address] [place] [phone] Yi Thompson MD [address] [place] [address] Scheduled Referrals Name Type Priority Associated Diagnoses [...] AM EDT Narrative 04/12/2025 9:59 AM EDT [place] [address] Magnetic Resonance Report Signed Patient: Sapna Herzog MR#: [id number] : 1960 Acct:[id number] Age/Sex: 64 / F ADM Date: 04/12/25 Loc: HO.MRI Attending Dr: Pratik Estes MD Ordering Physician: Pratik Estes MD Date of Service: 04/12/25 Procedure(s): MR cervical spine wo con Accession Number(s): [id number] cc: Pratik Estes MD; Yi Thompson MD [...] 04/12/25 0956 DD/ 0821 TD/TT: 04/12/25 0837 Zipper Sewing Machine Operator: Procedure Note Donotuseinterpreter, Image - 04/12/[address] [address] Magnetic Resonance Report Signed Patient: Sapna Herzog CMR#: [id number] : 9Acct:[id number] Age/Sex: 64 / FADM Date: 04/12/25 Loc: HO.MRI Attending Dr: Pratik Estes MD Ordering Physician: Pratik Estes MD Date of Service: 04/12/25 Procedure(s): MR cervical spine wo con Accession Number(s): [id number] cc: Pratik Estes MD; Yi Thompson MD [...] OV> 04/12/2556 DD/ 0 TD/TT: 04/12/25 0837 Zipper Sewing Machine Operator: [facility] External Provider IMG MRI PROCEDURES Final Result documented in this encounter Visit Diagnoses Diagnosis Hypertension- Primary Unspecified essential hypertension documented in this encounter Additional Health Concerns Assessment Noted Time PHQ-9 Depression Total Score: 1 01/13/20 24 12:16 PM EST documented as of this encounter Care Teams Tea Room Manager Relationship Specialty Start Date End Date Yi Thompson MD [address] [place] [phone] PCP - General Internal Medicine 08/20/23 documented as of this encounter
--- OUTSIDE RECORDS SUMMARY | 2025-09-28 17:25 | XMS_ITS | Encounter Summary ---
Author Organization [employer] Address [address] [place] [address] Care Team Providers Care Cattle Sticker Name Role Phone Juliet Bird Primary Care Provider Yi Jessica MD Primary Care Pro vider Reason for Visit * Reason Onset Date Comments triage 02/27/2023 Encounter Details Date Type Department Care Team (Late st Contact Info) Description 02/27/2023 Telephone [facility] [address] [place] [address] Juliet Bird FNP triage Social History Tobacco [...] 02/27/2023 4:58 PM EDT Triage call with [place] [facility] [place] [id number] Pt reports a couple of days of [...] now The caller accepted this outcome speaks [email or web address] documented in this encounter Plan of Treatment Upcoming Encounters Date Type Department Care Team (Late st Contact Info) Description 10/10/2025 9:15 AM EST Office Visit [facility] [address] [place] [address] Yi Thompson MD [address] [place] [address] documented as of this encounter Visit Diagnoses Not on filedocumented in this encounter Care Teams Cattle Sticker Relationship Specialty Start Date End Date Juliet Bird FNP PCP - General Family Medicine 01/22/23 08/19/23 Yi Thompson MD [address] [place] [phone] PCP - General Internal Medicine 08/20/23 documented as of this encounter
--- OUTSIDE RECORDS SUMMARY | 2025-09-28 17:25 | XMS_ITS | Encounter Summary ---
Author Organization [employer] Address [address] [place] [address] Care Team Providers Care [employer] Founder Name Role Phone Yi Thompson MD Primary Care Pro vider Reason for Visit * Reason Comments Med Refill Encounter Details Date Type Department Care Team ([facility] st Contact Info) Description 05/03/2024 Refill [facility] [address] [place] [address] Yi Thompson MD [address] [place] [address] Social History Tobacco Use Types Packs/Day Years [...] Description 10/10/2025 9:15 AM EST Office Visit [facility] [address] [place] [address] [phone] Yi Thompson MD [address] [place] [address] [phone] documented as of this encounter Goals Goal [...] documented as of this encounter Care Teams [employer] Founder Relationship Specialty Start Date End Date Yi Thompson MD [address] [place] [phone] PCP - General Internal Medicine 08/20/23 documented as of this encounter
--- OUTSIDE RECORDS SUMMARY | 2025-09-28 17:25 | XMS_ITS | Encounter Summary ---
Author Organization [employer] Address [address] [place] [address] Care Team Providers Care Credit And Collections Analyst Name Role Phone Yi Thompson MD Primary Care Pro vider Encounter Details Date Type Department Care Team ([facility] st Contact Info) Description 11/06/2024 Orders Only [facility] [address] [place] [address] Provider, MD Lux Social History Tobacco Use [...] 10/10/2025 9:15 AM EST Office Visit [facility] [address] [place] [address] Yi Thompson MD [address] [place] [address] documented as of this encounter Goals Goal [...] documented as of this encounter Care Teams Credit And Collections Analyst Relationship Specialty Start Date End Date Yi Thompson MD [address] [place] [phone] PCP - General Internal Medicine 08/20/23 documented as of this encounter
--- OUTSIDE RECORDS SUMMARY | 2025-09-28 17:25 | XMS_ITS | Encounter Summary ---
Author Organization [employer] Address [address] [place] [address] Care Team Providers Care Anesthesiology Physician Assistant Name Role Phone Yi Thompson MD Primary Care Pro vider Reason for Visit * Reason Comments Med Change Request Encounter Details Date Type Department Care Team ([facility] st Contact Info) Description 11/08/2023 Refill [facility] [address] [place] [address] [facility] [address] [place] [address] Viral upper respiratory illness Social History Tobacco [...] EST Office Visit [facility] [address] [place] [address] [phone] Yi Thompson MD [address] [place] [address] documented as of this encounter Visit Diagnoses Diagnosis Viral upper respiratory illness documented in this encounter Care Teams Anesthesiology Physician Assistant Relationship Specialty Start Date End Date Yi Thompson MD [address] [place] [address] [phone] PCP - General Internal Medicine 08/20/23 documented as of this encounter
--- OUTSIDE RECORDS SUMMARY | 2025-09-28 17:25 | XMS_ITS | Clinical Summary ---
Author Organization [employer] Address [address] [place] [address] [address] [place] [address] Care Team Providers Care Sales Operations Manager Name Role Phone Yi Thompson MD [...] OR CHEW 180 tablet 2 06/29/20 Active montelukast (Singulair) 10 MG tablet TAKE 1 TABLET BY MOUTH EVERYDAY AT NOON 30 tablet 2 07/24/20 25 Active Januvia 100 MG tabletIndicati ons:Type 2 diabetes mellitus without complication, without long-term current use of insulin (HCC) TAKE 1 TABLET BY MOUTH EVERY MORNING 90 tablet 1 09/21/20 25 Active pantoprazole (ProtoNix) 40 MG EC tablet TAKE 1 TABLET BY MOUTH EVERY MORNING 30 tablet 2 09/27/20 25 Active Januvia 100 MG tabletIndicati ons:Type 2 diabetes mellitus without complication, without long-term current use of insulin (HCC) TAKE 1 TABLET BY MOUTH EVERY MORNING 90 tablet 1 04/06/20 25 025 Discontinued pantoprazole (ProtoNix) 40 MG EC tablet TAKE 1 TABLET BY MOUTH EVERY MORNING 30 tablet 2 06/29/20 25 025 Discontinued Active Problems Problem Noted Date Diagnosed Date Chronic right-sided low back pain with right-lenin ed sciatica 10/28/2024 Assessment & Plan (10/28/2024 9:46 AM EST): Will send for 300 mg gabapentin at bedtime as patient didn't have med on hand. Educated pt about anticipated side effects of medication including drowsiness. Consideration for PT once patient returns from [facility] in January. Chest pain at rest [...] Forgetfulness 04/15/2023 Overview (08/20/2023): Seen at [facility] on 07/15/2020 for [...] for vascular referral once patient returns from [facility] in January. Irritable bowel syndrome with [...] improve. 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 04/09/2023 04/15/2023 Thyroid cancer ([facility]/HCC) 01/04/2019 Multiple joint pain 09/03/2018 04/15/20 Calcaneal spur 08/05/2018 09/17/2023 Gastroesophageal reflux disease 05/01/2014 04/15/2023 Encounters Date Type Department Care Team Description 09/27/2025 Refill [facility] [address] [place] [address] Yi Thompson MD 09/21/[address] [address] Yi Thompson MD Type 2 diabetes mellitus without complication, without long-term current use of insulin ([facility]) 08/25/2025 Orders Only GENERIC EXTERNAL DATA DEPARTMENT Provider, [facility] External Data 08/23/2025 3:30 PM EDT Immunization [address] [address] Kaitlynn Faulkner, CAT Encounter for immunization 08/23/2025 Travel 08/16/2025 11:15 AM EDT Office Visit [address] [address] Tere Thompson NP Paronychia of finger of right hand (Primary Dx) 08/16/2025 Travel 08/15/[address] [address] Yi Thompson MD Nurse Triage 07/25/2025 Orders Only GENERIC EXTERNAL DATA DEPARTMENT Provider, Generic External Data 07/23/2025 Refill [facility] [address] [place] [address] Yi Thompson MD 07/21/2025 Orders Only [facility] External Provider, [facility] 07/20/[address] [address] Yi Thompson MD Call Back Request 07/03/2025 Results Follow-Up [facility] [address] [place] [address] Leticia Plunkett, ANP CBC auto differential 06/28/2025 Telephone [facility] [address] [place] [address] Yi Thompson MD oct recall 06/28/2025 Telephone [facility] [address] [place], [place] [phone] Yi Thompson MD Imaging Orders 06/28/2025 Refill [facility] [address] [facility] [place] [address] Yi Thompson MD Type 2 diabetes mellitus without complication, without long-term current use of insulin ([facility]) from Last 3 Months Immunizations Immunization Administration [...] EST Office Visit [facility] [address] [place], [place] [phone] Yi Thompson MD [address] [place], [place] [phone] Health Maintenance Due Date Last Done Comments CT Colonography 1960 FIT DNA/Cologuard 1960 Sigmoidoscopy 1960 Diabetes: Foot Exam 1968 RSV Patients and Patients Aged 60 years or older (1 - Risk 50-74 years 1-dose series) 2008 COVID-19 Vaccine ( season) 2025 01/31/2022, 02/05/2021, [...] Tobacco Screening 08/16/2026 08/16/2025 Mammogram 02/07/2027 02/07/2025, 03/03/2025, 01/13/2024, Additional history exists DTaP/Tdap/Td Vaccines (3 [...] 2:56 PM EDT 08/29/2025 9:35 AM EDT [facility] - 08/30/2025 3:56 PM EDT ----- ------- Name: Sapna Herzog Age/Sex: 64/F : 1960 Unit#: [id number] Attend Dr: Elizabeth Jaime MD Re08/25/25 Status: [facility] Location: [facility] Disch: ----- ------- SPEC : [id number] RECD: 08/29/25 STATUS: [facility] NUM: [id number] JOSÉ: 08/25/25 [facility] DR: Elizabeth Jaime MD ENTERED: 08/29/25 [...] microscopic examination, multiple pieces in cassette B. ([facility]) IHC S/NG Disclaimer NOTE: Unless otherwise stated, all tissue is formalin-fixed and paraffin-embedded. Some or all of the immunohistochemical tests reported herein may have been developed and their performance characteristics determined by [facility]. They have not been cleared or approved by the U.S. Food and Drug Administration (FDA). However, the FDA has determined that such clearance or approval is not necessary. This laboratory is certified under the Clinical Laboratory Improvement Amendments of 1988 (CLIA) as qualified CONTINUED ON NEXT PAGE ----- ------- Name: Sapna Herzog Age/Sex: 64/F : 1960 Unit#: [id number] Attend Dr: Elizabeth Jaime MD Re08/25/25 Status: [facility] Location: [facility] Disch: ----- ------- SPEC : [id number] RECD: 08/29/25 STATUS: [facility] NUM: [id number] JOSÉ: 08/25/[address] [facility] [address]: Elizabeth Jaime MD ENTERED: 08/29/25 SP TYPE: Surgical OTHR DR: Yi Thompson MD ORDERED: HE Stain/6, Gross Micro L4/2 IHC S/NG Disclaimer (Continued) to perform high complexity clinical laboratory testing. Copies To: Yi Thompson MD [facility] [address] [place] [address] Elizabeth Jaime MD [facility] [address] [place] [phone] [email or web address] ----- ------- Signed (signature on file) Weston Swartz MD 08/30/25 1556 ----- ------- END OF REPORT us Generic External Data Provider LAB BLOOD ORDERAB LES Final Result [facility] [address] [place] [address] [phone] * (ABNORMAL) Glucose, Whole Blood (08/25/2025 1:36 PM EDT) Only the most recent of2 resultswithin the time period is included. Glucose, Whole Blood 129(H) 60 - 115 mg/dL [facility] Comment:METER #: [id number] 08/25/2025 1:36 PM EDT 08/25/2025 1:40 PM EDT us Generic External Data Provider LAB BLOOD ORDERAB LES Final Result Performing Organization Address City/State/[facility] Co de Phone Number [facility] [address] [place] [phone] * CT Abdomen Pelvis w/o Contrast (08/02/2025 3:47 PM EDT) Anatomical Region Laterality Modality Body, Pelvis, Abdomen Computed T omography 08/02/2025 3:47 PM EDT Narrative 08/02/2025 4:27 PM EDT [address] [address] [address] Scan Report Signed Patient: Sapna Herzog MR#: M [id number] : 1960 Acct:[id number] Age/Sex: 64 / F ADM Date: 08/02/25 Loc: HO.CT Attending Dr: Cathleen Lomax DIABETES CLINICAL MANAGER Ordering Physician: Cathleen Lomax NP Date of Service: 08/02/25 Procedure(s): CT abdomen pelvis wo IV con Accession Number(s): [id number] cc: Yi Thompson MD; Cathleen Lomax NP Report Number: [id number]: Total DLP = 385.00 mGy-cm Reason for [...] 08/02/25 1624 DD/ 1547 TD/TT: 08/02/25 1607 Advertising Operations Coordinator: Procedure Note Donotuseinterpreter, Image - 08/02/[address] [address] [address] Scan Report Signed Patient: Sapna Herzog CMR#: M [id number] : 1960cct:[id number] Age/Sex: 64 / FADM Date: 08/02/25 Loc: HO.CT Attending Dr: Cathleen Lomax NP Ordering Physician: Cathleen Lomax NP Date of Service: 08/02/25 Procedure(s): CT abdomen pelvis wo IV con Accession Number(s): [id number] cc: Yi Thompson MD; Cathleen Lomax NP Report Number: [id number]: Total DLP = 385.00 mGy-cm Reason for [...] MD 08/02/2025 04:24 PM EDT Dictated By: Augusot Alvarez MD Signed By: <Electronically signed by Augusto Alvarez MD in OV> 08/02/25 1624 DD/ 1547 TD/TT: 08/02/25 1607 Advertising Operations Coordinator: [facility] IMG CT PROCEDURES Edited Result - Final * Culture, Urine, Routine (07/25/2025 9:13 AM EDT) Urine Urine specimen from urinary conduit / Unknown 07/25/2025 9:13 AM EDT 07/25/2025 9:19 AM EDT Comment:Urine Cath Narrative [facility] - 07/27/2025 8:31 AM EDT Urine Culture No growth. Specimen Source: Urine Catheterized Generic External Data Provider LAB MICROBIOLOGY - GENERAL ORDERABLES Final Result [facility] [address] [place] [phone] * US Pelvis Transvaginal (07/21/2025 2:48 PM EDT) Anatomical Region Laterality Modality Pelvis Ultrasound 07/21/2025 2:48 PM EDT Narrative 07/21/2025 2:49 PM EDT [address] [address] Ultrasound Report Signed Patient: Sapna Herzog MR#: M [id number] : 1960 Acct:[id number] Age/Sex: 64 / F ADM Date: 07/21/25 Loc: HO.US Attending Dr: Domenic Chew MD Ordering Physician: Domenic Chew MD Date of Service: 07/21/25 Procedure(s): US pelvic and transvaginal Accession Number(s): [id number] cc: Yi Thompson MD; Domenic Chew MD [...] Allen MD in OV> 07/21/25 1448 DD/ 1448 TD/TT: 07/21/251447 Advertising Operations Coordinator: Procedure Note Donotuseinterpreter, Image - 07/21/2025 [place] [address] Ultrasound Report Signed Patient: Sapna Herzog CMR#: M [id number] : 9Acct:[id number] Age/Sex: 64 / FADM Date: 07/21/25 Loc: HO.US Attending Dr: Domenic Chew MD Ordering Physician: Domenic Chew MD Date of Service: 07/21/25 Procedure(s): US pelvic and transvaginal Accession Number(s): [id number] cc: Yi Thompson MD; Domenic Chew MD [...] OV> 07/21/25 1448 DD/ 47 TD/TT: 07/21/251447 Advertising Operations Coordinator: us [facility] External Provider IMG US PROCEDURES Final Result * MR Brain w/o Contrast (07/07/2025 4:44 PM EDT) Anatomical Region Laterality Modality Brain Magnetic Resonan ce 07/07/2025 4:44 PM EDT Narrative 07/07/2025 6:03 PM EDT [place] [address] Magnetic Resonance Report Signed Patient: Sapna Herzog MR#: M [id number] : 1960 Acct:[id number] Age/Sex: 64 / F ADM Date: 07/07/25 Loc: HO.MRI Attending Dr: Yi Cleary MD Ordering Physician: Yi Thompson MD Date of Service: 07/07/25 Procedure(s): MR head/brain wo con Accession Number(s): [id number] cc: Yi Thompson MD EXAMINATION: MR BRAIN [...] 07/07/25 1800 DD/ 1644 TD/TT: 07/07/25 1701 Advertising Operations Coordinator: Procedure Note Donotuseinterpreter, Image - 07/07/2025 [place] [address] Magnetic Resonance Report Signed Patient: Sapna Herzog CMR#: M [id number] : 9Acct:[id number] Age/Sex: 64 / FADM Date: 07/07/25 Loc: HO.MRI Attending Dr: Yi Cleary MD Ordering Physician: Yi Thompson MD Date of Service: 07/07/25 Procedure(s): MR head/brain wo con Accession Number(s): [id number] cc: Yi Thompson MD EXAMINATION: MR BRAIN [...] 07/07/25 1800 DD/ 1644 TD/TT: 07/07/25 1701 Advertising Operations Coordinator: us Yi Cleary MD IMG MRI PROCEDURE S Final Result * Albumin, Random Urine W/Creatinine (05/26/2025 10:35 AM EDT) Creatinine, Urine 84.43 mg/dL [facility] Microalbumin Urine <5.0 mg/L [facility] Microalbum Creatinine Ratio Ur TNP <30 ug/mg cr [facility] Comment:Unable to calculate albumin/creatinine ratio due to lowmicroalbumin or creatinine result. 05/26/2025 10:3 5 AM EDT 05/26/2025 11:11 AM EDT us Yi Cleary MD LAB URINE ORDERAB LES Final Result [facility] [address] [place] [phone] * (ABNORMAL) Hemoglobin A1c (05/26/2025 10:35 AM EDT) Hemoglobin A1c 7.1(H) <6.0 % [facility] Comment:Hemoglobin A1C Refer ence Range Adults: 4.8 - 6.0 % Non diabetic: < 6.0 % Goal: < 7.0 %Additional Action Suggested: > 8.0 %Note: Hemoglobin A1c results are invalid for patients with abnormal amounts of HbF. Blood transfusions may impact the HbA1c concentration in the patient sample. Estimated Average Glucose 157 mg/dL [facility] Comment:eAG = Estimated ave rage glucose which is %A1C expressed asaverage glucose, using the formula of the Z0D-HvecwouYmjunuc Glucose study (ADAG), Diabetes Care, Vol.31,#8,2007 05/26/2025 10:3 5 AM EDT 05/26/2025 11:19 AM EDT us Yi Cleary MD LAB BLOOD ORDERAB LES Final Result [facility] [address] [place] [phone] * (ABNORMAL) Lipid Panel, Standard (05/26/2025 10:35 AM EDT) Triglycerides 221(H) <150 mg/dL [facility] Comment:Desirable Triglyceri de: less than 150 mg/dLBorderline High Triglyceride 150-199 mg/dLHigh Triglyceride: 200-499 mg/dLVery High Triglyceride: greater than or equal to 5OO mg/dL Cholesterol 243(H) <200 mg/dL [facility] Comment:Desirable Cholestero l: less than 200 mg/dLBorderline High Cholesterol: 200-239 mg/dLHigh Cholesterol: greater than 239 mg/dL LDL Cholesterol Calculated 157(H) <100 mg/dL [facility] Comment:Desirable LDL: less than 100 mg/dLNear Optimal/Above Optimal LDL: 110- 129 mg/dLBorderline High LDL: 130-159 mg/dLHigh LDL: 160-189 mg/dLVery High LDL: greater than or equal to 190 mg/dL HDL Cholesterol 42 >40 mg/dL [facility] Comment:Desirable HDL: great er than 40 mg/dL Note: This HDL assay may give artificially low results in patients with liver disease. 05/26/2025 10:3 5 AM EDT 05/26/2025 11:17 AM EDT Yi Cleary MD LAB BLOOD ORDERAB LES Final Result Performing Organization Address City/[facility]/ZIP Co de Phone Number [facility] [address] [place] [phone] * Fecal Globin By Immunochemistry (05/26/2025 12:00 AM EDT) Fecal Globin By Immunochemistry SEE NOTE [employer] [place] [facility] Comment: FECAL GLOBIN BY IMMUNOCHEMISTRY Micro Number: [id number] Test Status: Final Specimen Source: Insure (tm) [...] STOOLS ORDERABLES Final Result Performing Organization Address City/[facility]/ZIP Co de Phone Number [facility] [address], [place] [address] [employer] [place] [facility] [address] [place] [phone] * BI US Breast Limited Left (02/07/2025 10:44 AM EDT) Anatomical Region Laterality Modality Breast Left Ultrasound 02/07/2025 10:4 4 AM EDT Narrative 02/07/2025 11:[address] EDT [facility] [address] [place] [address] Ultrasound Report Signed Patient: Sapna Herzog MR#: M [id number] : 1960 Acct:[id number] Age/Sex: 64 / F ADM Date: 02/07/25 Loc: HO.MAMMO Attending Dr: Peter Tate CNM Ordering Physician: PETER TATE CNM Date of Service: 02/07/25 Procedure(s): US breast LT limited mamm only Accession Number(s): [id number] cc: Yi Thompson MD; PETER TATE CNM [...] 02/07/25 1104 DD/ 1044 TD/TT: 02/07/25 1058 Advertising Operations Coordinator: Procedure Note Donotuseinterpreter, Image - 02/07/2025 [facility] [address] [place] [address] Ultrasound Report Signed Patient: Sapna Herzog CMR#: M [id number] : 9Acct:[id number] Age/Sex: 64 / FADM Date: 02/07/25 Loc: HO.MAMMO Attending Dr: Peter Tate CNM Ordering Physician: PETER TATE CNM Date of Service: 02/07/25 Procedure(s): US breast LT limited mamm only Accession Number(s): [id number] cc: Yi Thompson MD; PETER TATE CNM [...] 02/07/25 1104 DD/ 1044 TD/TT: 02/07/25 1058 Advertising Operations Coordinator: Peter Tate CNM [facility] PROCEDURES Edited Result - Final * Hm Colonoscopy (11/03/2024 6:36 PM EST) Historical Provider HEALTH MAINTENANCE Final Result * Hepatitis C Antibody with Reflex to HCV, RNA, Quantitative, Real-Time PCR (01/12/2024 8:56 AM EST) Hepatitis C Antibody Nonreactive Nonreactive [facility] Comment:Antibodies to HCV no t detected; does not exclude early acuteHCV infection. Blood Venous blood specimen / Unknown 01/12/2024 8:56 AM EST 01/12/2024 11:12 AM EST Yi Cleary MD LAB BLOOD ORDERAB LES Final Result [facility] [address] [place] [phone] * THINPREP PAP (10/25/2020 10:02 AM EST) Clinical Information: None given [facility] COMMENT SEE COMMENT [facility] ON [...] along with historic and current clinical information. Kennel Worker : SEE COMMENT [facility] Comment: [place], CT(ASCP) CT screening location: [place] [address] Interpretation/R esult: Negative for intraepithelial lesion or [...] 10/25/2020 10:0 2 AM EST Peter Tate [facility] PATHOLOGY ORDERABLES Final Result Performing Organization Address [facility] de Phone Number [facility] [address] * HPV mRNA E6/E7 (10/25/2020 10:02 AM EST) HPV nRNA E6/E7 Not Detected Not Detected [facility] Comment: This test was performed using the APTIMA HPV Assay ([employer] This assay detects E6/E7 viral messenger RNA (mRNA) from 14 high-risk HPV types (16,18,31,33,35,39,45,51,52,56,58,59,66,68). The analytical performance characteristics of this assay have been determined by [employer]. The modifications have not been cleared or approved by the FDA. This assay has been validated pursuant to the CLIA regulations and is used for clinical purposes. 10/25/2020 10:0 2 AM EST Peter Tate [facility] LAB BLOOD ORDERABLES Cammy l Result Performing Organization Address [facility] Phone Number [facility] Critical access hospital [address] from Last 3 Months or Most Recently Relevant to Health Maintenance Insurance [place] [address] Care Teams Sales Operations Manager Relationship Specialty Start Date End Date Yi Thompson MD [address] [place] [phone] PCP - General Internal Medicine 08/20/23
--- OUTSIDE RECORDS SUMMARY | 2025-09-28 17:25 | XMS_ITS | Encounter Summary ---
Author Organization [employer] Address [address] [place] [phone] Care Team Providers Care Precision Instrument Maker And Repairer Name Role Phone Yi Thompson MD Primary Care Pro vider Reason for Visit * Reason Onset Date Comments Nurse Triage 02/15/2024 Encounter Details Date Type Department Care Team ([facility] st Contact Info) Description 02/15/2024 Telephone [facility] [address] [place] [address] Yi Thompson MD [address] [place] [address] Nurse Triage Social History Tobacco Use Types [...] 02/15/2024 12:44 PM EDT Triage call with [place] [id number] Pt reports headache frontal and back of [...] 400pm. Pt is advised to come to [facility] which is open till 8pm [...] Tingling sensation The caller accepted this outcome Central African speaker documented in this encounter Plan of Treatment Upcoming Encounters Date Type Department Care Team (Late st Contact Info) Description 10/10/2025 9:15 AM EST Office Visit [facility] [address] [place] [address] Yi Thompson MD [address] [place] [address] [phone] documented as of this encounter Visit Diagnoses Not on filedocumented in this encounter Additional Health Concerns Assessment Noted Time PHQ-9 Depression Total Score: 1 01/13/20 24 12:16 PM EST documented as of this encounter Care Teams Precision Instrument Maker And Repairer Relationship Specialty Start Date End Date Yi Thompson MD [address] [place] [address] [phone] PCP - General Internal Medicine 08/20/23 documented as of this encounter
--- OUTSIDE RECORDS SUMMARY | 2025-09-28 17:25 | XMS_ITS | Encounter Summary ---
Author Organization [employer] Address [address] [facility] [address] [address] Care Team Providers Care Subway Train Driver Name Role Phone Yi Thompson MD Primary Care Pro vider Reason for Visit * Reason Comments Med Refill Encounter Details Date Type Department Care Team ([facility] st Contact Info) Description 09/15/2023 Refill [facility] [address] [place] [address] Juliet Bird, MARY ELLEN Primary hypertension; Type 2 diabetes mellitus without complication, without long-term current use of insulin (CMS/[facility]) Social History Tobacco Use Types [...] Description 10/10/2025 9:15 AM EST Office Visit [facility] [address] [place] [address] [phone] Yi Thompson MD [address] [place], [place] [phone] documented as of this encounter Visit Diagnoses Diagnosis Primary hypertension Unspecified essential hypertension Type 2 diabetes mellitus without complication, without long-term current use of insulin (HCC) documented in this encounter Care Teams Subway Train Driver Relationship Specialty Start Date End Date Yi Thompson MD [address] [place] [address] [phone] PCP - General Internal Medicine 08/20/23 documented as of this encounter
--- OUTSIDE RECORDS SUMMARY | 2025-09-28 17:25 | XMS_ITS | Encounter Summary ---
Author Organization [employer] Address [address] [place] [address] Care Team Providers Care Media Clerk Name Role Phone Juliet Bird Primary Care Provider Yi Jessica MD Primary Care Pro vider Reason for Visit * Reason Comments Med Refill Encounter Details Date Type Department Care Team (Late Contact Info) Description 06/28/2023 Refill [facility] [address] [place] [phone] Juliet Bird FNP Social History Tobacco Use [...] Description 10/10/2025 9:15 AM EST Office Visit [facility] [address] [place] [phone] Yi Thompson MD [address] [place] [address] documented as of this encounter Visit Diagnoses Not on filedocumented in this encounter Care Teams Media Clerk Relationship Specialty Start Date End Date Juliet Bird FNP PCP - General Family Medicine 01/22/23 08/19/23 Yi Thompson MD [address] [place] [phone] PCP - General Internal Medicine 08/20/23 documented as of this encounter
--- OUTSIDE RECORDS SUMMARY | 2025-09-28 17:25 | XMS_ITS | Encounter Summary ---
Author Organization [employer] Address [address] [place] [address] Care Team Providers Care Robot Operator Name Role Phone Yi Thompson MD Primary Care Pro vider Reason for Visit * Reason Comments Med Change Request Encounter Details Date Type Department Care Team ([facility] Contact Info) Description 03/15/2024 Refill [facility] [address] [place] [address] Leticia Plunkett, ANP [address] [place] [address] Sinus pressure Social History Tobacco Use Types [...] AM EST Office Visit [facility] [address] [place] [phone] Yi Thompson MD [address] [place] [phone] documented as of this encounter Goals Goal [...] documented as of this encounter Care Teams Robot Operator Relationship Specialty Start Date End Date Yi Thompson MD [address] [place] [phone] PCP - General Internal Medicine 08/20/23 documented as of this encounter
--- OUTSIDE RECORDS SUMMARY | 2025-09-28 17:25 | XMS_ITS | Encounter Summary ---
Author Organization [employer] Address [address] [place] [address] Care Team Providers Care Collection Supervisor Name Role Phone Juliet Bird [facility] Primary Care Provider Yi Jessica MD Primary Care Pro vider Reason for Visit * Reason Comments Med Refill Encounter Details Date Type Department Care Team (Late Contact Info) Description 01/28/2023 Refill [facility] [address] [place], [place] [phone] [facility] 230 [place], [place] [phone] Primary hypertension Social History Tobacco Use Types [...] Description 10/10/2025 9:15 AM EST Office Visit [facility] [address] [place], [place] [phone] Yi Thompson MD 230 [place], [place] [phone] documented as of this encounter Visit Diagnoses Diagnosis Primary hypertension Unspecified essential hypertension documented in this encounter Care Teams Collection Supervisor Relationship Specialty Start Date End Date Juliet Bird FNP PCP - General Family Medicine 01/22/23 08/19/23 Yi Thompson MD [address] [place] [address] PCP - General Internal Medicine 08/20/23 documented as of this encounter
--- OUTSIDE RECORDS SUMMARY | 2025-09-28 17:25 | XMS_ITS | Encounter Summary ---
Author Organization [employer] Address [address] [place] [address] Care Team Providers Care Clicking Machine Operator Name Role Phone Yi Thompson MD Primary Care Pro vider Reason for Visit * Reason Onset Date Comments Call Back Request 04/25/2025 Encounter Details Date Type Department Care Team ([facility] Contact Info) Description 04/25/2025 Telephone [facility] 230 [place] [address] Yi Thompson MD 230 [place] [address] Call Back Request Social History Tobacco Use [...] PM EDT Telephone call from Norah at [facility] Physical Therapy Department: Norah, the Instrument Repairer Steam PlantPipe Manufacture Supervisor, informed that a referral has been received for the patient. However, the physical therapy provider would like to speak directly with the referring provider--not nursing staff--regarding the referral. When calling [facility] Physical Therapy at [phone], ask for Norah. She will transfer the call to the appropriate provider, as there is no direct line available. documented in this encounter Plan of Treatment Upcoming Encounters Date Type Department Care Team (Late st Contact Info) Description 10/10/2025 9:15 AM EST Office Visit [facility] [address] [place] [address] Yi Thompson MD 230 [place] [address] documented as of this encounter [...] documented as of this encounter Care Teams Clicking Machine Operator Relationship Specialty Start Date End Date Yi Thompson MD [address] [place] [address] PCP - General Internal Medicine 08/20/23 documented as of this encounter
--- OUTSIDE RECORDS SUMMARY | 2025-09-28 17:25 | XMS_ITS | Encounter Summary ---
Author Organization [employer] Address [address] [place] [address] Care Team Providers Care Certified Surgical Technologist Name Role Phone Yi Thompson MD Primary Care Pro vider Reason for Visit * Reason Comments Med Refill Encounter Details Date Type Department Care Team ([facility] st Contact Info) Description 05/20/2024 Refill [facility] [address] [place] [address] Name, MD Ronny 230 [place] [address] Social History Tobacco Use Types Packs/Day Years [...] Description 10/10/2025 9:15 AM EST Office Visit [facility] [address] [place] [address] [phone] Yi Thompson MD [address] [place] [address] [phone] documented as of this encounter Goals Goal [...] as of this encounter Care Teams Certified Surgical Technologist Relationship Specialty Start Date End Date Yi Thompson MD [address] [place] [address] PCP - General Internal Medicine 08/20/23 documented as of this encounter
--- OUTSIDE RECORDS SUMMARY | 2025-09-28 17:25 | XMS_ITS | Encounter Summary ---
Author Organization [employer] Address [address] [place] [address] Care Team Providers Care Uniform Designer Name Role Phone Yi Thompson MD Primary Care Pro vider Reason for Visit * Reason Comments Med Refill Encounter Details Date Type Department Care Team ([facility] st Contact Info) Description 06/02/2024 Refill [facility] 230 [place] [address] Yi Thompson MD 230 [place] [address] Social History Tobacco Use Types Packs/Day Years [...] [facility] [address] [place] [address] [phone] Yi Thompson MD [address] [place] [address] [phone] documented as of this encounter Goals Goal [...] documented as of this encounter Care Teams Uniform Designer Relationship Specialty Start Date End Date Yi Thompson MD [address] [place] [phone] PCP - General Internal Medicine 08/20/23 documented as of this encounter
--- OUTSIDE RECORDS SUMMARY | 2025-09-28 17:25 | XMS_ITS | Data Portability ---
Author Organization [place] [facility], Allergy Address [address] [address] Assessment No assessment recorded. Plan of Treatment [...] observ ation record ed. [facility] Radiology ([facility]) [address] [facility] [address], [place], [address], 07/12/2024 17:28:21 07/12/20 24 03/07/2024 CT, neck, soft tissu e, w/ contr ast No observ ation record ed. [email or web address] Not Available 06/17 14:31:41 Result Notes None [...] Available [employer] 4 03:27:19 Oropharyn geal dysphagia 12060072 Active 2023 CHANTEL MEYER MD [address] [address], [facility] [place], [address] , [facility] 4 14:16:46 Acquired vocal cord palsy 160806084 Active 2023 CHANTEL MEYER MD [address] [place] [address], [place], [address] , [facility] 4 14:27:26 Problem Notes None recorded. Procedures Surgical History Date Name Laterality Status Provider Name and Address Organization Details Recorded Time 07/12/2024 FFL_RE completed CHANTEL MEYER MD [address] [place] [address],[place] [address], [place], [address], [facility] 07/12/2024 14:20:56 Imaging Results None recorded. Procedure Notes None recorded. Medical Equipment None Reported. Allergies Allergen ID Allergen Name Allergen Category Reaction Reaction Severity Criticality Documentation Date Start Date Code Code System Note Provider Name and Address Organization Details Recorded Time 33115 Product containin g penicilli n (product) medicatio n other Not available Not available 03/29/2024 74197 8001 SNOMED React ion: unkno wn, unspe cifie d;; Not Available [facility] 4 01:03:20 Medications Name Sig Start Date Stop Date Status Note LastModified by Organization Details LastModified Time medbox status USE DIRECTED active Not Available Not Available No t Available freestyle lite test strips strp active Not Available Not Available Not Available losartan 50 mg tablet active Medicati on ID: 90901 Br and Name: losartan Send Method: E-Prescr [...] 40 mg tablet active Medicati on ID: 46805 Br and Name: lovastat in Send Method: E-Prescr ibed Sub s Allowed: subs OK Medic ationGen ericName : lovastat in Not Available Not Available Not Available amlodipin e 5 mg tablet active Medicati on ID: 81448 Br and Name: amlodipi ne Send Method: [...] Not Available Not Available No t Available [place] Thyroid 15 mg tablet active Medicati on ID: 05703 Br and Name: [place] Thyroid Send Method: E-Prescr ibed Sub s Allowed: subs OK Medic ationGen ericName : [place] Thyroid Not Available Not Available Not Available amitripty line 25 mg tablet active Medicati on ID: 53773 Br and Name: amitript yline Se nd Method: E-Prescr ibed Sub s Allowed: subs OK Medic ationGen ericName : amitript yline Not Available Not Available Not Available Protonix 40 mg intraveno us solution active Medicati on ID: 66031 Br and Name: Protonix Send Method: E-Prescr [...] 150 mg capsule active Medicati on ID: 26288 Br and Name: ranitidi ne HCl Send Method: E-Prescr ibed Sub s Allowed: subs OK Medic ationGen ericName : ranitidi ne HCl Not Available Not Available Not Available hydrochlo rothiazid e 25 mg tablet active Medicati on ID: 62181 Br and Name: hydrochl orothiaz ro Send [...] 17 gram/dose oral powder USE DIRECTED BY [facility] active Not Available Not Available No [...] release 24hr (osmotic) active Medicati on ID: 95709 Br and Name: metformi n Send Method: [...] tablet,de layed release [place] Medicati on ID: 25302 Du ration Value: 30 Brand Name: omeprazo [...] Updated DateTime 07/12/2024 165.1 cm 27.3 kg/m2 11561.15 g [place] Anderson [place] [facility] 07/12/2024 14:07:22 Social History None recorded. Functional Status None recorded. Mental Status None recorded. Family History Nothing Reported. Medical History No medical history recorded. Gynecological HistoryNo gynecological history recorded. Obstetrics History GPAL:G 0 P 0 0 0 0 Past Encounters Encounter ID Performer Location Encounter Start Date Encounter Closed Date Diagnosis/Indication Diagnosis SNOMED-CT Code Diagnosis ICD10 Code Diagnosis IMO Codes Diagnosis Note [id number] CHANTEL MEYER MD [facility] [address] [address] 07/12/2024 13:49:31 07/12/2024 16:53:30 Oropharyngeal dysphagia 86159921 R13.12 Likely due to esophageal dysmotilit y. VC paralysis is a factor but doesn't explain her dysphagia to solids. I recommend she discuss GI referral with her PCP. I would be glad to see her as needed. I personally reviewed her imaging reports. Acquired v ocal cord palsy [id number] J38.00 Likely from initial surgery 14 years [...] Name 07/12/2024 1 [facility] [id number] Giuseppe Rodriguez [id number] 691 Sapna Garcia 07/12/2024 1 [facility] [id number] Giuseppe Rodriguez [id number] Sapna Garcia Notes Date Note Type [...] surgery. She had a swallow study at [facility]. She feels like food gets stuck. Has occasional choking with liquids. She has never smoked. She denies throat pain and SOB. I reviewed an Upper GI series which showed esophageal dysmotility. I also reviewed her CT neck with 02/2024 which showed possible right vocal cord paralysis. contrast CHANTEL MEYER MD [address] [place] [address], [place], [address], [facility] - [facility] 07/12/2024 14:28:36 OBGyn Episode No OBEpisode recorded.
--- OUTSIDE RECORDS SUMMARY | 2025-09-28 17:25 | XMS_ITS | Encounter Summary ---
Author Organization [employer] Address [address] [place] [address] Care Team Providers Care Truck Trailer Mechanic Name Role Phone Yi Thompson MD Primary Care Pro vider Reason for Visit * Reason Comments Med Refill Encounter Details Date Type Department Care Team ([facility] st Contact Info) Description 09/27/2025 Refill [facility] [address] [place] [address] Yi Thompson MD 230 [place] [address] Social History Tobacco Use Types Packs/Day Years [...] 10/10/2025 9:15 AM EST Office Visit [facility] MEDICINE [address] [place] [address] [phone] Yi Thompson MD [address] [place] [address] documented as of this encounter Goals Goal [...] documented as of this encounter Care Teams Truck Trailer Mechanic Relationship Specialty Start Date End Date Yi Thompson MD [address] [place] [address] PCP - General Internal Medicine 08/20/23 documented as of this encounter
--- OUTSIDE RECORDS SUMMARY | 2025-09-28 17:25 | XMS_ITS | Encounter Summary ---
Author Organization [employer] Address [address] [place] [address] Care Team Providers Care Assistant Professor Of Chemistry Name Role Phone Yi Thompson MD Primary Care Pro vider Reason for Visit * Reason Comments Med Change Request Encounter Details Date Type Department Care Team ([facility] st Contact Info) Description 11/11/2023 Refill [facility] 230 [place] [address] [facility] 230 [place] [address] Viral upper respiratory illness Social History Tobacco [...] AM EST Office Visit [facility] [address] [place] [address] Yi Thompson MD [address] [place] [address] documented as of this encounter Visit Diagnoses Diagnosis Viral upper respiratory illness documented in this encounter Care Teams Assistant Professor Of Chemistry Relationship Specialty Start Date End Date Yi Thompson MD [address] [place] [address] PCP - General Internal Medicine 08/20/23 documented as of this encounter
== END 2025-09-28 14:17 | disposition home or self-care (01) ==
LOC: HO.PMC 14:03
PROVIDERS: PCP Student in an Organized Health Care Education/Training Program; Visit Provider Anesthesiology
DX: M47.816 Spondylosis without myelopathy or radiculopathy, lumbar region (principal); G89.4 Chronic pain syndrome; M46.1 Sacroiliitis, not elsewhere classified; M53.3 Sacrococcygeal disorders, not elsewhere classified; M51.369 Other intervertebral disc degeneration, lumbar region without mention of lumbar back pain or lower extremity pain; M54.51 Vertebrogenic low back pain
CPT/HCPCS: 99213

== ENCOUNTER 2025-10-03 13:56 | Outpatient (AMB) | payer OTHER, SELFPAY ==
[2025-10-03 14:41] VITALS: BMI 27.4
--- NOTE | 2025-10-03 14:41 | MHC.OFFVIS ---
Vital Signs 10/03/25 14:41 Height 5 ft 2 in Weight 150 lb BMI 27.4 Intake Visit Reasons: PO-Rt CTR 09/18/25 Intake Note: Sapna 64 yr old right hand dominant female presents today for her P/O visit for her right hand CTR done with Dr. Pang on 09/18/25. states her symptoms have resolved and is doing well. She does have a little soreness by her incision. Allergies Penicillins (PENICILLINS) Allergy (Intermediate, Verified 10/03/25 15:02) HIVES HPI HPI PO-Rt CTR 09/18/25: Details: Sapna 64 yr old right hand dominant female presents today for her P/O visit for her right hand CTR done. DOS 09/18/25. She states her symptoms have resolved and is doing well. She does have a little soreness by her incision. She reports keeping the incision clear. [facility] Medical History Type 2 diabetes mellitus with polyneuropathy Bladder pain Headache Cognitive disorder Cervical dystonia Palpitations Non-cardiac chest pain Pelvic pain Leg pain Lower abdominal pain Gross hematuria Toe pain Right knee pain Effusion, right knee Dysuria Pelvic pain in female Hematuria Mass of spine Hematuria DM2 (diabetes mellitus, type 2) Nail deformity Paronychia Failure of spinal cord stimulator Thymoma Pulmonary nodules Thyroid cancer Blood in urine Constipation by delayed colonic transit Tubular adenoma of colon Gastritis Hypertension Dyslipidemia Post-surgical hypothyroidism Primary thyroid cancer Vitamin D deficiency Surgical History History of thymectomy History of back surgery Hx of colonoscopy Hx of thyroidectomy Hx of hernia repair Hx of section Hx of hysterectomy History of esophagogastroduodenoscopy (EGD) Family History Father Stroke Heart attack Mother Diabetes mellitus Family/Other Family history of cancer Sister Stomach cancer Family/Other Thyroid cancer Social History Household Members: Spouse, Family and Other Household Members Other:: grandson Housing: Apartment Are you a primary animal care attendant to a significant other at home: No Do you presently have visiting nurse or other home services: No Alcohol intake: former Comment: counts correct Patient Tobacco Use Status: Never used Tobacco Tobacco use type: Cigarette Second Hand Smoke Exposure: No service: No Sexual orientation: Straight/Heterosexual Gender identity: Female Female Reproductive History Menstrual Age of Menarche: 13 Physical Exam Vital Signs: BMI result Body Mass Index 27.4 Extrem Other: The patient was alert oriented and in no acute distress Her incision is healing well with no erythema drainage or evidence of infection. Sutures removed today in clinic. Steri-Strips applied Her sensation is reportedly back to normal in all of her digits. She can make a fist and extend all of her digits with no locking or catching Assessment & Plan Assessment & Plan (1) Carpal tunnel syndrome of right wrist: Code(s): G56.01 - Carpal tunnel syndrome, right upper limb Category: Medical (2) Chronic pain syndrome: Code(s): G89.4 - Chronic pain syndrome Category: Medical Plan 1. Right carpal tunnel syndrome, status post release DOS:09/18/25 Patient appears to be doing well postoperatively. Excellent resolution of numbness and tingling. I educated her about the postoperative course. I reminded her not to do anything heavy for the next couple of weeks Follow up PRN 2. Bilateral hand pain & welling, L>R Extending into dorsal forearms, primarily in the mornings She is attending OT for this 3. History of left carpal tunnel release DOS: ~2014, at an outside clinic 4. Left thumb episodes of locking in extension Resolved 5. Left De Quervains, S/P injection Date of Injection 05/15/21 Scribed for Georgiana Pang MD by Marge Hyde senior medical director, on 10/03/2025 at 3:15 PM, EST. Coding Level of Care Code Global (34445) Diagnoses Carpal tunnel syndrome of right wrist G56.01 Chronic pain syndrome G89.4
--- OUTSIDE RECORDS SUMMARY | 2025-10-04 07:48 | XMS_ITS | Data Portability ---
Author Organization [place] - [facility], Allergy Address [address] [address] Assessment No assessment recorded. Plan of Treatment [...] record ed. [facility] Radiology ([facility]) [address] [facility] [address], [place], [address], 07/12/2024 17:28:21 07/12/20 24 03/07/2024 CT, neck, soft tissu e, w/ contr ast No observ ation record ed. [email or web address] Not Available 06/17 14:31:41 Result Notes None [...] Available [employer] 4 03:27:19 Oropharyn geal dysphagia 48936487 Active 2023 CHANTEL MEYER MD [address] [address], [place], [address] , [facility] 4 14:16:46 Acquired vocal cord palsy 148704922 Active 2023 CHANTEL MEYER MD [address] [place] [address], [place], [address] , [facility] 4 14:27:26 Problem Notes None recorded. Procedures Surgical History Date Name Laterality Status Provider Name and Address Organization Details Recorded Time 07/12/2024 FFL_RE completed CHANTEL MEYER MD [address] [place] [address],[place] [place] [address], [place], [address], [facility] 07/12/2024 14:20:56 Imaging Results None recorded. Procedure Notes None recorded. Medical Equipment None Reported. Allergies Allergen ID Allergen Name Allergen Category Reaction Reaction Severity Criticality Documentation Date Start Date Code Code System Note Provider Name and Address Organization Details Recorded Time 19303 Product containin g penicilli n (product) medicatio n other Not available Not available 03/29/2024 49298 8001 SNOMED React ion: unkno wn, unspe cifie d;; Not Available [facility] 4 01:03:20 Medications Name Sig Start Date Stop Date Status Note LastModified by Organization Details LastModified Time medbox status USE DIRECTED active Not Available Not Available No t Available freestyle lite test strips strp active Not Available Not Available Not Available losartan 50 mg tablet active Medicati on ID: 38306 Br and Name: losartan Send Method: E-Prescr [...] 40 mg tablet active Medicati on ID: 96065 Br and Name: lovastat in Send Method: E-Prescr ibed Sub s Allowed: subs OK Medic ationGen ericName : lovastat in Not Available Not Available Not Available amlodipin e 5 mg tablet active Medicati on ID: 05330 Br and Name: amlodipi ne Send Method: [...] Not Available Not Available No t Available [place] Thyroid 15 mg tablet active Medicati on ID: 44304 Br and Name: [place] Thyroid Send Method: E-Prescr ibed Sub s Allowed: subs OK Medic ationGen ericName : [place] Thyroid Not Available Not Available Not Available amitripty line 25 mg tablet active Medicati on ID: 24152 Br and Name: amitript yline Se nd Method: E-Prescr ibed Sub s Allowed: subs OK Medic ationGen ericName : amitript yline Not Available Not Available Not Available Protonix 40 mg intraveno us solution active Medicati on ID: 97581 Br and Name: Protonix Send Method: E-Prescr [...] 150 mg capsule active Medicati on ID: 51945 Br and Name: ranitidi ne HCl Send Method: E-Prescr ibed Sub s Allowed: subs OK Medic ationGen ericName : ranitidi ne HCl Not Available Not Available Not Available hydrochlo rothiazid e 25 mg tablet active Medicati on ID: 66976 Br and Name: hydrochl orothiaz ro Send [...] gram/dose oral powder USE DIRECTED BY [facility] active Not Available Not Available [...] release 24hr (osmotic) active Medicati on ID: 51282 Br and Name: metformi n Send Method: [...] tablet,de layed release active Medicati on ID: 12488 Du ration Value: 30 Brand Name: omeprazo [...] Updated DateTime 07/12/2024 165.1 cm 27.3 kg/m2 53184.15 g [place] Anderson [place] [facility] 07/12/2024 14:07:22 Social History None recorded. Functional Status None recorded. Mental Status None recorded. Family History Nothing Reported. Medical History No medical history recorded. Gynecological HistoryNo gynecological history recorded. Obstetrics History GPAL:G 0 P 0 0 0 0 Past Encounters Encounter ID Performer Location Encounter Start Date Encounter Closed Date Diagnosis/Indication Diagnosis SNOMED-CT Code Diagnosis ICD10 Code Diagnosis IMO Codes Diagnosis Note [id number] CHANTEL MEYER MD [facility] [address] [address] 07/12/2024 13:49:31 07/12/2024 16:53:30 Oropharyngeal dysphagia 67791902 R13.12 Likely due to esophageal dysmotilit y. VC paralysis is a factor but doesn't explain her dysphagia to solids. I recommend she discuss GI referral with her PCP. I would be glad to see her as needed. I personally reviewed her imaging reports. Acquired v ocal cord palsy [id number] J38.00 Likely from initial surgery 14 years [...] Name 07/12/2024 1 [facility] [id number] Giuseppe Rodriguez [id number] 691 Sapna Garcia 07/12/2024 1 [facility] [id number] Giuseppe Rodriguez [id number] Sapna Garcia Notes Date Note Type [...] vocal cord paralysis. contrast CHANTEL MEYER MD [address] [place] [address], [place], [address], [facility] - [facility] 07/12/2024 14:28:36 OBGyn Episode No OBEpisode recorded.
== END 2025-10-03 15:30 | disposition home or self-care (01) ==
PROVIDERS: PCP Student in an Organized Health Care Education/Training Program; Visit Provider Orthopaedic Surgery
DX: G56.01 Carpal tunnel syndrome, right upper limb (principal); G89.4 Chronic pain syndrome
CPT/HCPCS: 99024

== ENCOUNTER 2025-10-06 08:49 | Outpatient (REF) | payer OTHER, SELFPAY ==
--- OUTSIDE RECORDS SUMMARY | 2025-10-06 08:53 | XMS_ITS | Encounter Summary ---
Author Organization [employer] Address [address] [place] [address] Care Team Providers Care Bleach Boiler Filler Name Role Phone Yi Thompson MD Primary Care Pro vider Reason for Visit * Reason Comments Med Change Request Encounter Details Date Type Department Care Team ([facility] st Contact Info) Description 11/11/2023 Refill [facility] MEDICINE 230 [place] [address] [facility] 230 [place] [address] Viral upper respiratory illness Social History Tobacco [...] Visit [facility] MEDICINE [address] [place] [address] Yi Thompson MD [address] [place] [address] documented as of this encounter Visit Diagnoses Diagnosis Viral upper respiratory illness documented in this encounter Care Teams Bleach Boiler Filler Relationship Specialty Start Date End Date Yi Thompson MD [address] [place] [address] PCP - General Internal Medicine 08/20/23 documented as of this encounter
--- OUTSIDE RECORDS SUMMARY | 2025-10-06 08:53 | XMS_ITS | Encounter Summary ---
Author Organization [employer] Address [address] [place] [address] Care Team Providers Care Railroad Design Consultant Name Role Phone Juliet Bird Primary Care Provider Yi Jessica MD Primary Care Pro vider Reason for Visit * Reason Onset Date Comments triage 02/27/2023 Encounter Details Date Type Department Care Team (Late st Contact Info) Description 02/27/2023 Telephone [facility] [address] [place] [address] Juliet Bird FNP triage Social History Tobacco [...] 02/27/2023 4:58 PM EDT Triage call with [employer] Design Engineer ID [id number] Pt reports a couple of days of [...] now The caller accepted this outcome speaks wolof documented in this encounter Plan of Treatment Upcoming Encounters Date Type Department Care Team (Late st Contact Info) Description 10/10/2025 9:15 AM EST Office Visit [facility] [address] [place] [phone] Yi Thompson MD [address] [place] [address] documented as of this encounter Visit Diagnoses Not on filedocumented in this encounter Care Teams Railroad Design Consultant Relationship Specialty Start Date End Date Juliet Bird FNP PCP - General Family Medicine 01/22/23 08/19/23 Yi Thompson MD [address] [place] [phone] PCP - General Internal Medicine 08/20/23 documented as of this encounter
--- OUTSIDE RECORDS SUMMARY | 2025-10-06 08:53 | XMS_ITS | Encounter Summary ---
Author Organization [employer] Address [address] [place] [address] Care Team Providers Care Delinquency Prevention Social Worker Name Role Phone Juliet Bird [facility] Primary Care Provider Yi Jessica MD Primary Care Pro vider Reason for Visit * Reason Comments Med Refill Encounter Details Date Type Department Care Team (Late Contact Info) Description 01/28/2023 Refill [facility] [address] [place], [place] [phone] [facility] [address] [place], [place] [phone] Primary hypertension Social History Tobacco Use Types [...] EST Office Visit [facility] [address] [place], [place] [phone] Yi Thompson MD [address] [place], [place] [phone] documented as of this encounter Visit Diagnoses Diagnosis Primary hypertension Unspecified essential hypertension documented in this encounter Care Teams Delinquency Prevention Social Worker Relationship Specialty Start Date End Date Juliet Bird FNP PCP - General Family Medicine 01/22/23 08/19/23 Yi Thompson MD [address] [place] [phone] PCP - General Internal Medicine 08/20/23 documented as of this encounter
--- OUTSIDE RECORDS SUMMARY | 2025-10-06 08:53 | XMS_ITS | Encounter Summary ---
Author Organization [employer] Address [address] [place] [address] Care Team Providers Care Purchasing Expeditor Name Role Phone Yi Thompson MD Primary Care Pro vider Reason for Visit * Reason Comments Med Refill Encounter Details Date Type Department Care Team ([facility] st Contact Info) Description 09/12/2024 Refill [facility] [address] [place] [address] Yi Thompson MD [address] [place] [address] Type 2 diabetes mellitus without complication, without long-term current use of insulin ([facility]) Social History Tobacco Use Types Packs/Day [...] the past 12 months, has t he [employer] gas, oil or water company threatened to [...] Description 10/10/2025 9:15 AM EST Office Visit [facility] [address] [place] [address] Yi Thompson MD [address] [place] [address] documented as of this encounter Goals Goal [...] documented as of this encounter Care Teams Purchasing Expeditor Relationship Specialty Start Date End Date Yi Thompson MD [address] [place] [address] PCP - General Internal Medicine 08/20/23 documented as of this encounter
--- OUTSIDE RECORDS SUMMARY | 2025-10-06 08:53 | XMS_ITS | Encounter Summary ---
Author Organization [employer] Address [address] [facility] [address], [place] [address] Care Team Providers Care Proofreader Name Role Phone Yi Thompson MD Primary Care Pro vider Reason for Visit * Reason Comments Med Refill Encounter Details Date Type Department Care Team ([facility] st Contact Info) Description 09/15/2023 Refill [facility] [address] [place] [address] Juliet Bird, MARY ELLEN Primary hypertension; Type 2 diabetes mellitus without complication, without long-term current use of insulin ([facility]) Social History Tobacco Use Types Packs/Day [...] Description 10/10/2025 9:15 AM EST Office Visit [facility] [address] [place] [address] [phone] Yi Thompson MD [address] [place], [place] [phone] documented as of this encounter Visit Diagnoses Diagnosis Primary hypertension Unspecified essential hypertension Type 2 diabetes mellitus without complication, without long-term current use of insulin (HCC) documented in this encounter Care Teams Proofreader Relationship Specialty Start Date End Date Yi Thompson MD [address] [place] [address] [phone] PCP - General Internal Medicine 08/20/23 documented as of this encounter
--- OUTSIDE RECORDS SUMMARY | 2025-10-06 08:53 | XMS_ITS | Encounter Summary ---
Author Organization [employer] Address [address] [place] [address] Care Team Providers Care Doctorate Of Chiropractic Name Role Phone Juliet Bird Primary Care Provider Yi Jessica MD Primary Care Pro vider Reason for Visit * Reason Comments Med Refill Encounter Details Date Type Department Care Team (Late Contact Info) Description 06/28/2023 Refill [facility] [address] [place] [address] Juliet Bird FNP Social History Tobacco Use [...] 9:15 AM EST Office Visit [facility] [address] [place] [address] Yi Thompson MD [address] [place] [address] documented as of this encounter Visit Diagnoses Not on filedocumented in this encounter Care Teams Doctorate Of Chiropractic Relationship Specialty Start Date End Date Juliet Bird FNP PCP - General Family Medicine 01/22/23 08/19/23 Yi Thompson MD [address] [place] [phone] PCP - General Internal Medicine 08/20/23 documented as of this encounter
--- OUTSIDE RECORDS SUMMARY | 2025-10-06 08:53 | XMS_ITS | Encounter Summary ---
Author Organization [employer] Address [address] [place] [address] Care Team Providers Care Cryptoanalysis Teacher Name Role Phone Yi Thompson MD Primary Care Pro vider Encounter Details Date Type Department Care Team ([facility] st Contact Info) Description 11/06/2024 Orders Only [facility] [address] [place] [address] Provider, MD Lux Social History Tobacco Use [...] 10/10/2025 9:15 AM EST Office Visit [facility] [address] [place] [address] Yi Thompson MD [address] [place] [address] documented as of this encounter Goals Goal [...] documented as of this encounter Care Teams Cryptoanalysis Teacher Relationship Specialty Start Date End Date Yi Thompson MD [address] [place] [phone] PCP - General Internal Medicine 08/20/23 documented as of this encounter
--- OUTSIDE RECORDS SUMMARY | 2025-10-06 08:53 | XMS_ITS | Encounter Summary ---
Author Organization [employer] Address [address] [place] [address] Care Team Providers Care Ink Technician Name Role Phone Yi Thompson MD Primary Care Pro vider Reason for Visit * Reason Onset Date Comments Lab Orders 10/05/2025 Encounter Details Date Type Department Care Team ([facility] st Contact Info) Description 10/05/2025 Telephone [facility] [address] [place] [address] Yi Thompson MD [address] [place] [address] Lab Orders Social History Tobacco Use Types [...] Telephone Encounter - Kaitlynn Faulkner RN - 10/05/2025 4:09 PM EST Called pt via [employer] [place] [phone]. Informed her of fasting labs to complete before 10/10/25 appointment. Pt verbalized understanding, no further questions. * Telephone Encounter - Prudence Barbour - 10/05/2025 9:33 AM EST Tc from pt requesting lab orders to be sent too [facility] lab , to have labs done before apt on 10/10 Contact pt at [phone] (faroese) documented in this encounter Plan of Treatment Upcoming Encounters Date Type Department Care Team (Late st Contact Info) Description 10/10/2025 9:15 AM EST Office Visit [facility] [address] [place] [address] iY Thompson MD [address] [place] [phone] documented as of this encounter Goals Goal Patient Goal Type Associated Problems Recent Progress Patient-Stated? Author Blood Pressure < 140/90 Blood Pressure 130/82(2024 11:30 AM EDT) Jn Petit Hemoglobin A1c < 7 Result Component 7.1( 10:35 AM EDT) No Jn Shah Help patients manage their type 2 diabetes Care Plan Help patients manage their type 2 diabetes No Awilda Terry Weekly blood pressure task Care Plan Weekly blood pressure task No Awilda Terry Help patients manage their type 2 diabetes Care Plan Help patients manage their type 2 diabetes No Awilda Terry Patient has chronic kidney disease Care Plan Patient has chronic kidney disease No Awilda Terry Help patients manage their type 2 diabetes Care Plan Help patients manage their type 2 diabetes No Awilda Terry Patient has diabetic neuropathy Care Plan Patient has diabetic neuropathy No Awilda Terry Weekly blood pressure task Care Plan Weekly blood pressure task No Awilda Terry Weekly blood pressure task Care Plan Weekly blood pressure task No Awilda Terry Patient has chronic kidney disease Care Plan Patient has chronic kidney disease No Awilda Terry Patient has chronic kidney disease Care Plan Patient has chronic kidney disease No Awilda Terry Patient has diabetic neuropathy Care Plan Patient has diabetic neuropathy No Awilda Terry Patient has diabetic neuropathy Care Plan Patient has diabetic neuropathy No Awilda Terry Weekly blood pressure task Care Plan Weekly blood pressure task No Prudence Jordan Weekly blood pressure task Care Plan Weekly blood pressure task No Prudence Jordan Weekly blood pressure task Care Plan Weekly blood pressure task No Prudence Jordan Patient has chronic kidney disease Care Plan Patient has chronic kidney disease No Prudence Jordan Patient has chronic kidney disease Care Plan Patient has chronic kidney disease No Prudence Jordan Patient has chronic kidney disease Care Plan Patient has chronic kidney disease No Prudence Jordan Patient has diabetic neuropathy Care Plan Patient has diabetic neuropathy No Prudence Jordan Patient has diabetic neuropathy Care Plan Patient has diabetic neuropathy No Prudence Jordan Patient has diabetic neuropathy Care Plan Patient has diabetic neuropathy No Prudence Jordan Weekly blood pressure task Care Plan Weekly blood pressure task No Yi Thompson MD Weekly blood pressure task Care Plan Weekly blood pressure task No Yi Thompson MD Weekly blood pressure task Care Plan Weekly blood pressure task No Yi Thompson MD Patient has chronic kidney disease Care Plan Patient has chronic kidney disease No Yi Thompson MD Patient has chronic kidney disease Care Plan Patient has chronic kidney disease No Yi Thompson MD Patient has chronic kidney disease Care Plan Patient has chronic kidney disease No Yi Thompson MD Patient has diabetic neuropathy Care Plan Patient has diabetic neuropathy No Yi Thompson MD Patient has diabetic neuropathy Care Plan Patient has diabetic neuropathy No Yi Thompson MD Patient has diabetic neuropathy Care Plan Patient has diabetic neuropathy No Yi Thompson MD documented as of this encounter Visit Diagnoses Not on filedocumented in this encounter Additional Health Concerns Active Problems Noted Date Diagnosed Date Help patients manage their type 2 diabetes 10/02 Weekly blood pressure task 10/02/2025 Help patients manage their type 2 diabetes 10/02 Patient has chronic kidney disease 10/02/2025 Help patients manage their type 2 diabetes 10/02 Patient has diabetic neuropathy 10/02/2025 Weekly blood pressure task 10/02/2025 Weekly blood pressure task 10/02/2025 Patient has chronic kidney disease 10/02/2025 Patient has chronic kidney disease 10/02/2025 Patient has diabetic neuropathy 10/02/2025 Patient has diabetic neuropathy 10/02/2025 Weekly blood pressure task 10/05/2025 Weekly blood pressure task 10/05/2025 Weekly blood pressure task 10/05/2025 Patient has chronic kidney disease 10/05/2025 Patient has chronic kidney disease 10/05/2025 Patient has chronic kidney disease 10/05/2025 Patient has diabetic neuropathy 10/05/2025 Patient has diabetic neuropathy 10/05/2025 Patient has diabetic neuropathy 10/05/2025 Weekly blood pressure task 10/05/2025 Weekly blood pressure task 10/05/2025 Weekly blood pressure task 10/05/2025 Patient has chronic kidney disease 10/05/2025 Patient has chronic kidney disease 10/05/2025 Patient has chronic kidney disease 10/05/2025 Patient has diabetic neuropathy 10/05/2025 Patient has diabetic neuropathy 10/05/2025 Patient has diabetic neuropathy 10/05/2025 Assessment Noted Time PHQ-9 Depression Total Score: 0 04/06/20 11:08 AM EDT documented as of this encounter Care Teams Ink Technician Relationship Specialty Start Date End Date Yi Thompson MD [address] [place] [phone] PCP - General Internal Medicine 08/20/23 documented as of this encounter
--- OUTSIDE RECORDS SUMMARY | 2025-10-06 08:53 | XMS_ITS | Encounter Summary ---
Author Organization [employer] Address [address] [place] [address] Care Team Providers Care Jewelry Inspector Name Role Phone Yi Thompson MD Primary Care Pro vider Reason for Visit * Reason Comments Med Change Request Encounter Details Date Type Department Care Team ([facility] Contact Info) Description 03/15/2024 Refill [facility] [address] [place] [address] Leticia Plunkett, ANP [address] [place] [address] Sinus pressure Social History Tobacco Use Types [...] 9:15 AM EST Office Visit [facility] [address] [place] [address] Yi Thompson MD [address] [place] [address] documented as of this encounter Goals Goal [...] documented as of this encounter Care Teams Jewelry Inspector Relationship Specialty Start Date End Date Yi Thompson MD [address] [place] [phone] PCP - General Internal Medicine 08/20/23 documented as of this encounter
--- OUTSIDE RECORDS SUMMARY | 2025-10-06 08:53 | XMS_ITS | Clinical Summary ---
Author Organization [employer] Address [address] [place] [address] [address] [address] Care Team Providers Care Advanced Registered Nurse Name Role Phone Yi Thompson MD [...] Consideration for PT once patient returns from [facility] in January. Chest pain at [...] 09/17/2023 Forgetfulness 04/15/2023 Overview (08/20/2023): Seen at [facility] ED on 07/15/2020 for right [...] for vascular referral once patient returns from [facility] in January. Irritable bowel syndrome [...] improve. 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 04/09/2023 04/15/2023 Thyroid cancer ([facility]) 01/04/2019 Multiple joint pain 09/03/2018 04/15/20 Calcaneal spur 08/05/2018 09/17/2023 Gastroesophageal reflux disease 05/01/2014 04/15/2023 Encounters Date Type Department Care Team Description 10/05/2025 Orders Only [address] [address] Yi Thompson MD Health care maintenance (Primary Dx) 10/05/[address] [address] Yi Thompson MD Lab Orders 10/02/2025 Patient Outreach [address] [address] Yi Thompson MD Pre-visit Planning (SDOH screening was completed on 04/06/2025) 09/27/2025 Refill [facility] [address] [place], [place] [phone] Yi Thompson MD 09/21/[address] [address] Yi Thompson MD Type 2 diabetes mellitus without complication, without long-term current use of insulin ([facility]) 08/25/2025 Orders Only GENERIC EXTERNAL DATA DEPARTMENT Provider, Generic External Data 08/23/2025 3:30 PM EDT Immunization [address] [address] Kaitlynn Faulkner RN Encounter for immunization 08/23/2025 Travel 08/16/2025 11:15 AM EDT Office Visit [address] [address] Tere Thompson NP Paronychia of finger of right hand (Primary Dx) 08/16/2025 Travel 08/15/[address] [address] Yi Thompson MD Nurse Triage 07/25/2025 Orders Only GENERIC EXTERNAL DATA DEPARTMENT Provider, Generic External Data 07/23/2025 Refill [facility] [address] [place] [address] Yi Thompson MD 07/21/2025 Orders Only [facility] External Provider, [facility] 07/20/2025 Telephone [facility] MEDICINE [address] [facility] [place] [address] Yi Thompson MD Call Back Request from [...] EST Office Visit [facility] [address] [place] [address] Yi Thompson MD [address] [place] [address] Health Maintenance Due Date Last Done Comments [...] Component 7.1( 10:35 AM EDT) Jn Petit Help patients manage their type 2 diabetes [...] Plan Patient has chronic kidney disease No Awlida Terry Patient has diabetic neuropathy Care Plan [...] neuropathy Care Plan Patient has diabetic neuropathy Yi Mcintyre MD Procedures Procedure Name Priority Date/Time Associated Diagnosis [...] 2:56 PM EDT 08/29/2025 9:35 AM EDT [facility]S - 08/30/2025 3:56 PM EDT ----- ------- Name: Sapna Herzog Age/Sex: 64/F : 1960 Unit#: [id number] Attend Dr: Elizabeth Jaime MD Re08/25/25 Status: [facility] Location: .SSS Disch: ----- ------- SPEC : [id number] RECD: 08/29/25 STATUS: LORENA ZHAO NUM: [id number] JOSÉ: 08/25/[address] [facility] [address]: Elizabeth Jaime MD ENTERED: 08/29/25 SP [...] microscopic examination, multiple pieces in cassette B. ([facility]) IHC S/NG Disclaimer NOTE: Unless otherwise stated, all tissue is formalin-fixed and paraffin-embedded. Some or all of the immunohistochemical tests reported herein may have been developed and their performance characteristics determined by [facility]. They have not been cleared or approved by the U.S. Food and Drug Administration (FDA). However, the FDA has determined that such clearance or approval is not necessary. This laboratory is certified under the Clinical Laboratory Improvement Amendments of 1988 (CLIA) as qualified CONTINUED ON NEXT PAGE ----- ------- Name: Sapna Herzog Age/Sex: 64/F : 1960 Unit#: [id number] Attend Dr: Elizabeth Jaime MD Re08/25/25 Status: [facility] Location: [facility] Disch: ----- ------- SPEC : [id number] RECD: 08/29/25 STATUS: LORENA ZHAO NUM: [id number] JOSÉ: 08/25/[address] [facility] [address]: Elizabeth Jaime MD ENTERED: 08/29/25 SP TYPE: Surgical OTHR DR: Yi Thompson MD ORDERED: HE Stain/6, Gross Micro L4/2 IHC S/NG Disclaimer (Continued) to perform high complexity clinical laboratory testing. Copies To: Yi Thompson MD [address] [address] Elizabeth Jaime MD [facility] [address] [place] [phone] [email or web address] ----- ------- Signed (signature on file) Weston Swartz MD 08/30/25 1556 ----- ------- END OF REPORT us Generic External Data Provider LAB BLOOD ORDERAB LES Final Result [facility] [address] [place] [address] [phone] * (ABNORMAL) Glucose, Whole Blood (08/25/2025 1:36 PM EDT) Only the most recent of2 resultswithin the time period is included. Glucose, Whole Blood 129(H) 60 - 115 mg/dL [facility] Comment:METER #: [id number] 08/25/2025 1:36 PM EDT 08/25/2025 1:40 PM EDT us Generic External Data Provider LAB BLOOD ORDERAB LES Final Result Performing Organization Address City/State/[facility] Co de Phone Number [facility] [address] [place] [address] [phone] * CT Abdomen Pelvis w/o Contrast (08/02/2025 3:47 PM EDT) Anatomical Region Laterality Modality Body, Pelvis, Abdomen Computed T omography 08/02/2025 3:47 PM EDT Narrative 08/02/2025 4:27 PM EDT [address] [address] [address] Scan Report Signed Patient: Sapna Herzog MR#: M [id number] : 1960 Acct:[id number] Age/Sex: 64 / F ADM Date: 08/02/25 Loc: HO.CT Attending Dr: Cathleen Lomax HEAD BELLHOP CAPTAIN Ordering Physician: Cathleen Lomax NP Date of Service: 08/02/25 Procedure(s): CT abdomen pelvis wo IV con Accession Number(s): [id number] cc: Yi Thompson MD; Cathleen Lomax HEAD BELLHOP CAPTAIN Report Number: [id number]: Total DLP = 385.00 mGy-cm Reason for [...] 08/02/25 1624 DD/ 1547 TD/TT: 08/02/25 1607 Assistant Professor In Family Studies: Procedure Note Donalejandra, Image - 08/02/[address] [address] [address] Scan Report Signed Patient: Sapna Herzog CMR#: M [id number] : 9Acct:[id number] Age/Sex: 64 / FADM Date: 08/02/25 Loc: HO.CT Attending Dr: Cathleen Lomax HEAD BELLHOP CAPTAIN Ordering Physician: Cathleen Lomax NP Date of Service: 08/02/25 Procedure(s): CT abdomen pelvis wo IV con Accession Number(s): [id number] cc: Yi Thompson MD; Cathleen Lomax HEAD BELLHOP CAPTAIN Report Number: [id number]: Total DLP = 385.00 mGy-cm Reason for [...] 08/02/25 1624 DD/ 1547 TD/TT: 08/02/25 1607 Assistant Professor In Family Studies: [facility] CT PROCEDURES Edited Result - Final * Culture, Urine, Routine (07/25/2025 9:13 AM EDT) Urine Urine specimen from urinary conduit / Unknown 07/25/2025 9:13 AM EDT 07/25/2025 9:19 AM EDT Comment:Urine Cath Narrative [facility] - 07/27/2025 8:31 AM EDT Urine Culture No growth. Specimen Source: Urine Catheterized us Generic External Data Provider LAB MICROBIOLOGY - GENERAL ORDERABLES Final Result [facility] [address] [place] [phone] * US Pelvis Transvaginal (07/21/2025 2:48 PM EDT) Anatomical Region Laterality Modality Pelvis Ultrasound 07/21/2025 2:48 PM EDT Narrative 07/21/2025 2:49 PM EDT [address] [address] Ultrasound Report Signed Patient: Sapna Herzog MR#: M [id number] : 1960 Acct:[id number] Age/Sex: 64 / F ADM Date: 07/21/25 Loc: HO.US Attending Dr: Domenic Chew MD Ordering Physician: Domenic Chew MD Date of Service: 07/21/25 Procedure(s): US pelvic and transvaginal Accession Number(s): [id number] cc: Yi Thompson MD; Domenic Chew MD [...] in OV> 07/21/25 1448 DD/ 1448 TD/TT: 07/21/25 1448 Assistant Professor In Family Studies: Procedure Note Donotuseinterpreter, Image - 07/21/[address] [address] Ultrasound Report Signed Patient: Sapna Herzog CMR#: M [id number] : 1960cct:[id number] Age/Sex: 64 / FADM Date: 07/21/25 Loc: HO.US Attending Dr: Domenic Chew MD Ordering Physician: Domenic Chew MD Date of Service: 07/21/25 Procedure(s): US pelvic and transvaginal Accession Number(s): [id number] cc: Yi Thompson MD; Domenic Chew MD [...] in OV> 07/21/25 1448 DD/ 1448 TD/TT: 07/21/25 1448 Assistant Professor In Family Studies: us [facility] External Provider IMG US PROCEDURES Final Result * MR Brain w/o Contrast (07/07/2025 4:44 PM EDT) Anatomical Region Laterality Modality Brain Magnetic Resonan ce 07/07/2025 4:44 PM EDT Narrative 07/07/2025 6:03 PM EDT [address] [address] Magnetic Resonance Report Signed Patient: Sapna Herzog MR#: M [id number] : 1960 Acct:[id number] Age/Sex: 64 / F ADM Date: 07/07/25 Loc: HO.MRI Attending Dr: Yi Cleary MD Ordering Physician: Yi Thompson MD Date of Service: 07/07/25 Procedure(s): MR head/brain wo con Accession Number(s): [id number] cc: Yi Thompson MD EXAMINATION: MR BRAIN [...] 07/07/25 1800 DD/ 1644 TD/TT: 07/07/25 1701 Assistant Professor In Family Studies: Procedure Note Donotuseinterpreter, Image - 07/07/[address] [address] Magnetic Resonance Report Signed Patient: Sapna Herzog CMR#: M [id number] : 9Acct:[id number] Age/Sex: 64 / FADM Date: 07/07/25 Loc: HO.MRI Attending Dr: Yi Cleary MD Ordering Physician: Yi Thompson MD Date of Service: 07/07/25 Procedure(s): MR head/brain wo con Accession Number(s): [id number] cc: Yi Thompson MD EXAMINATION: MR BRAIN [...] 07/07/25 1800 DD/ 1644 TD/TT: 07/07/25 1701 Assistant Professor In Family Studies: us Yi Cleary MD IMG MRI PROCEDURE S Final Result * Albumin, Random Urine W/Creatinine (05/26/2025 10:35 AM EDT) Creatinine, Urine 84.43 mg/dL [facility] Microalbumin Urine <5.0 mg/L [facility] Microalbum Creatinine Ratio Ur TNP <30 ug/mg cr [facility] Comment:Unable to calculate albumin/creatinine ratio due to lowmicroalbumin or creatinine result. 05/26/2025 10:3 5 AM EDT 05/26/2025 11:11 AM EDT us Yi Cleary MD LAB URINE ORDERAB LES Final Result Performing Organization Address City/[facility]/ZIP Co de Phone Number [facility] [address] [place] [phone] * (ABNORMAL) Hemoglobin A1c (05/26/2025 10:35 AM EDT) Hemoglobin A1c 7.1(H) <6.0 % [facility] Comment:Hemoglobin A1C Refer ence Range Adults: 4.8 - 6.0 % Non diabetic: < 6.0 % Goal: < 7.0 %Additional Action Suggested: > 8.0 %Note: Hemoglobin A1c results are invalid for patients with abnormal amounts of HbF. Blood transfusions may impact the HbA1c concentration in the patient sample. Estimated Average Glucose 157 mg/dL [facility] Comment:eAG = Estimated ave rage glucose which is %A1C expressed asaverage glucose, using the formula of the P2C-MftkewfYvxebei Glucose study (ADAG), Diabetes Care, Vol.31,#8,Jun. 2007 05/26/2025 10:3 5 AM EDT 05/26/2025 11:19 AM EDT us Yi Cleary MD LAB BLOOD ORDERAB LES Final Result Performing Organization Address [facility]/ZIP Co de Phone Number [facility] [address] [place] [phone] * (ABNORMAL) Lipid Panel, Standard (05/26/2025 10:35 AM EDT) Triglycerides 221(H) <150 mg/dL [facility] Comment:Desirable Triglyceri de: less than 150 mg/dLBorderline High Triglyceride 150-199 mg/dLHigh Triglyceride: 200-499 mg/dLVery High Triglyceride: greater than or equal to 5OO mg/dL Cholesterol 243(H) <200 mg/dL [facility] Comment:Desirable Cholestero l: less than 200 mg/dLBorderline High Cholesterol: 200-239 mg/dLHigh Cholesterol: greater than 239 mg/dL LDL Cholesterol Calculated 157(H) <100 mg/dL [facility] Comment:Desirable LDL: less than 100 mg/dLNear Optimal/Above Optimal LDL: 110- 129 mg/dLBorderline High LDL: 130-159 mg/dLHigh LDL: 160-189 mg/dLVery High LDL: greater than or equal to 190 mg/dL HDL Cholesterol 42 >40 mg/dL [facility] Comment:Desirable HDL: great er than 40 mg/dL Note: This HDL assay may give artificially low results in patients with liver disease. 05/26/2025 10:3 5 AM EDT 05/26/2025 11:17 AM EDT Yi Cleary MD LAB BLOOD ORDERAB LES Final Result Performing Organization Address City/[facility]/ZIP Co de Phone Number [facility] [address] [place] [phone] * Fecal Globin By Immunochemistry (05/26/2025 12:00 AM EDT) Fecal Globin By Immunochemistry SEE NOTE [facility] Comment: FECAL GLOBIN BY IMMUNOCHEMISTRY Micro Number: [id number] Test Status: Final Specimen Source: Insure (tm) [...] STOOLS ORDERABLES Final Result Performing Organization Address City/[facility]/ZIP Co de Phone Number [employer] [address] [place] [address], [place] [phone] [facility] [address] [place] [phone] * BI US Breast Limited Left (02/07/2025 10:44 AM EDT) Anatomical Region Laterality Modality Breast Left Ultrasound 02/07/2025 10:4 4 AM EDT Narrative 02/07/2025 11:07 AM EDT [facility] [place] [address] Ultrasound Report Signed Patient: Sapna Herzog MR#: M [id number] : 1960 Acct:[id number] Age/Sex: 64 / F ADM Date: 02/07/25 Loc: MAMMO Attending Dr: Peter Tate CNM Ordering Physician: PETER TATE CNM Date of Service: 02/07/25 Procedure(s): US breast LT limited mamm only Accession Number(s): [id number] cc: Yi Thompson MD; PETER TATE CNM [...] 02/07/25 1104 DD/ 1044 TD/TT: 02/07/25 1058 Assistant Professor In Family Studies: Procedure Note Donotuseinterpreter, Image - 02/07/2025 [facility] [address] [place] [address] Ultrasound Report Signed Patient: Sapna Herzog CMR#: M [id number] : 1960cct:[id number] Age/Sex: 64 / FADM Date: 02/07/25 Loc: MARKELL Attending Dr: Peter Tate CNM Ordering Physician: PETER TATE CNM Date of Service: 02/07/25 Procedure(s): US breast LT limited mamm only Accession Number(s): [id number] cc: Yi Thompson MD; PETER TATE CNM [...] 02/07/25 1104 DD/ 1044 TD/TT: 02/07/25 1058 Assistant Professor In Family Studies: Peter Tate CNM IMG US PROCEDURES Edited Result - Final * Hm Colonoscopy (11/03/2024 6:36 PM EST) Historical Provider HEALTH MAINTENANCE Final Result * Hepatitis C Antibody with Reflex to HCV, RNA, Quantitative, Real-Time PCR (01/12/2024 8:56 AM EST) Hepatitis C Antibody Nonreactive Nonreactive [facility] Comment:Antibodies to HCV no t detected; does not exclude early acuteHCV infection. Blood Venous blood specimen / Unknown 01/12/2024 8:56 AM EST 01/12/2024 11:12 AM EST Yi Cleary MD LAB BLOOD ORDERAB LES Final Result [facility] [address] [place] [phone] * THINPREP PAP (10/25/2020 10:02 AM [...] along with historic and current clinical information. Fire [employer] : SEE COMMENT [facility] Comment: QUINCY, CT(ASCP) CT screening location: [place] [address] Interpretation/R esult: Negative for intraepithelial lesion or malignancy. [facility] LMP: NONE [facility] Prev. BX: NONE [facility]IV[facility] Prev. PAP: NONE [facility]IVEN [facility] SOURCE: None given [facility] Statement Of Adequacy: SEE COMMENT [facility] Comment: Satisfactory for evaluation. Endocervical/transformation zone component present. 10/25/2020 10:0 2 AM EST Peter CADET LAB PATHOLOGY ORDERABLES Final Result Performing Organization Address [facility] de Phone Number [facility] Counts include 234 beds at the [facility] [address] * HPV mRNA E6/E7 (10/25/2020 10:02 AM EST) HPV nRNA E6/E7 Not Detected Not Detected [facility] Comment: This test was performed using the APTIMA HPV Assay ([employer] This assay detects E6/E7 viral messenger RNA (mRNA) from 14 high-risk HPV types (16,18,31,33,35,39,45,51,52,56,58,59,66,68). The analytical performance characteristics of this assay have been determined by [facility]. The modifications have not been cleared or approved by the FDA. This assay has been validated pursuant to the CLIA regulations and is used for clinical purposes. 10/25/2020 10:0 2 AM EST Peter CADET LAB BLOOD ORDERABLES Cammy l Result Performing Organization Address [facility] Co de Phone Number [facility] Counts include 234 beds at the [facility] Any[address] from Last 3 Months or Most Recently Relevant to Health Maintenance Additional Health Concerns Active Problems Noted Date [...] neuropathy 10/05/2025 Patient has diabetic neuropathy 10/05/2025 Insurance [employer] Care Teams Advanced Registered Nurse Relationship Specialty Start Date End Date Yi Thompson MD [address] [place] [phone] PCP - General Internal Medicine 08/20/23
--- OUTSIDE RECORDS SUMMARY | 2025-10-06 08:53 | XMS_ITS | Encounter Summary ---
Author Organization [employer] Address [address] [place] [address] Care Team Providers Care Quarter Lining Smoother Name Role Phone Yi Thompson MD Primary Care Pro vider Reason for Visit * Reason Onset Date Comments Call Back Request 04/25/2025 Encounter Details Date Type Department Care Team ([facility] Contact Info) Description 04/25/2025 Telephone [facility] [address] [place] [address] Yi Thompson MD [address] [place] [address] Call Back Request Social History Tobacco Use [...] PM EDT Telephone call from Norah at [facility] Physical Therapy Department: Norah, the Supervisor Electron Tube ProcessingWindows Vmware Engineer, informed that a referral has been received for the patient. However, the physical therapy provider would like to speak directly with the referring provider--not nursing staff--regarding the referral. When calling [facility] Physical Therapy at [phone], ask for Norah. She will transfer the call to the appropriate provider, as there is no direct line available. documented in this encounter Plan of Treatment Upcoming Encounters Date Type Department Care Team (Late st Contact Info) Description 10/10/2025 9:15 AM EST Office Visit [facility] [address] [place] [phone] Yi Thompson MD [address] [place] [address] documented as of this encounter [...] documented as of this encounter Care Teams Quarter Lining Smoother Relationship Specialty Start Date End Date Yi Thompson MD [address] [place] [phone] PCP - General Internal Medicine 08/20/23 documented as of this encounter
--- OUTSIDE RECORDS SUMMARY | 2025-10-06 08:53 | XMS_ITS | Encounter Summary ---
Author Organization [employer] Address [address] [place] [address] Care Team Providers Care Electrical Estimator Name Role Phone Yi Thompson MD Primary Care Pro vider Reason for Referral * Consultation (Routine) - Authorized Specialty Diagnoses / Procedures Referred By Contac t Referred To Contact Pharmacy Diagnoses Hypertension Maria Del Carmen Meza MD [address] [place] [address] Phone: tel: fax: Referral ID Status Reason Start Date Expiration Date Visits Requested Visits Authorized [id number] Authorized Continuity of Care 04/03/2025 04/03/2026 6 6 Encounter Details Date Type Department Care Team ([facility] st Contact Info) Description 03/30/2025 Orders Only [facility] [address] [place] [address] Maria Del Carmen eMza MD [address] [place], [place] [phone] Hypertension (Primary Dx) Social History Tobacco Use [...] Description 10/10/2025 9:15 AM EST Office Visit [facility] [address] [place] [phone] Yi Thompson MD [address] [place] [address] Scheduled Referrals Name Type Priority Associated Diagnoses [...] AM EDT Narrative 04/12/2025 9:59 AM EDT [place] [address] Magnetic Resonance Report Signed Patient: Sapna Herzog MR#: M [id number] : 1960 Acct:[id number] Age/Sex: 64 / F ADM Date: 04/12/25 Loc: HO.MRI Attending Dr: Pratik Estes MD Ordering Physician: Pratik Estes MD Date of Service: 04/12/25 Procedure(s): MR cervical spine wo con Accession Number(s): [id number] cc: Pratik Estes MD; Yi Thompson MD [...] 04/12/25 0956 DD/ 0821 TD/TT: 04/12/25 0837 Fatback Trimmer: Procedure Note Donotuseinterpreter, Image - 04/12/[address] [address] Magnetic Resonance Report Signed Patient: Sapna Herzog CMR#: M [id number] : 9Acct:[id number] Age/Sex: 64 / FADM Date: 04/12/25 Loc: HO.MRI Attending Dr: Pratik Estes MD Ordering Physician: Pratik Estes MD Date of Service: 04/12/25 Procedure(s): MR cervical spine wo con Accession Number(s): [id number] cc: Pratik Estes MD; Yi Thompson MD [...] OV> 04/12/2556 DD/ 0 TD/TT: 04/12/25 0837 Fatback Trimmer: [facility] External Provider IMG MRI PROCEDURES Final Result documented in this encounter Visit Diagnoses Diagnosis Hypertension- Primary Unspecified essential hypertension documented in this encounter Additional Health Concerns Assessment Noted Time PHQ-9 Depression Total Score: 1 01/13/20 24 12:16 PM EST documented as of this encounter Care Teams Electrical Estimator Relationship Specialty Start Date End Date Yi Thompson MD [address] [place] [phone] PCP - General Internal Medicine 08/20/23 documented as of this encounter
--- OUTSIDE RECORDS SUMMARY | 2025-10-06 08:53 | XMS_ITS | Encounter Summary ---
Author Organization [employer] Address [address] [place] [address] Care Team Providers Care Cashier Clerk Name Role Phone Yi Thompson MD Primary Care Pro vider Reason for Visit * Reason Comments Med Change Request Encounter Details Date Type Department Care Team ([facility] st Contact Info) Description 11/08/[address] [facility] [address] [place] [address] [facility] [address] [place] [address] Viral upper respiratory illness Social History Tobacco [...] Visit [facility] [address] [place] [phone] Yi Thompson MD [address] [place] [phone] documented as of this encounter Visit Diagnoses Diagnosis Viral upper respiratory illness documented in this encounter Care Teams Cashier Clerk Relationship Specialty Start Date End Date Yi Thompson MD [address] [place] [phone] PCP - General Internal Medicine 08/20/23 documented as of this encounter
--- OUTSIDE RECORDS SUMMARY | 2025-10-06 08:53 | XMS_ITS | Encounter Summary ---
Author Organization [employer] Address [address] [place] [address] Care Team Providers Care Poultry Picking Machine Tender Name Role Phone Yi Thompson MD Primary Care Pro vider Reason for Visit * Reason Onset Date Comments Nurse Triage 02/15/2024 Encounter Details Date Type Department Care Team ([facility] st Contact Info) Description 02/15/[address] [facility] MEDICINE [address] [place] [address] Yi Thompson MD [address] [place] [address] Nurse Triage Social History Tobacco Use Types [...] 02/15/2024 12:44 PM EDT Triage call with [place] Remote Computer Terminal Operator ID [id number] Pt reports headache frontal and back of [...] 400pm. Pt is advised to come to [facility] which is open till 8pm this [...] Tingling sensation The caller accepted this outcome Angolan speaker documented in this encounter Plan of Treatment Upcoming Encounters Date Type Department Care Team (Late st Contact Info) Description 10/10/2025 9:15 AM EST Office Visit [facility] MEDICINE [address] [place] [address] Yi Thompson MD [address] [place] [address] [phone] documented as of this encounter Visit Diagnoses Not on filedocumented in this encounter Additional Health Concerns Assessment Noted Time PHQ-9 Depression Total Score: 1 01/13/20 24 12:16 PM EST documented as of this encounter Care Teams Poultry Picking Machine Tender Relationship Specialty Start Date End Date Yi Thompson MD [address] [place] [address] [phone] PCP - General Internal Medicine 08/20/23 documented as of this encounter
--- OUTSIDE RECORDS SUMMARY | 2025-10-06 08:53 | XMS_ITS | Encounter Summary ---
Author Organization [employer] Address [address] [place] [address] Care Team Providers Care Tile Installer Name Role Phone Yi Thompson MD Primary Care Pro vider Reason for Visit * Reason Comments Med Refill Encounter Details Date Type Department Care Team ([facility] st Contact Info) Description 06/02/2024 Refill [facility] MED[facility]INE [address] [place] [address] Yi Thompson MD [address] [place] [address] Social History Tobacco Use Types Packs/Day Years [...] [facility] MED[facility]INE [address] [place] [address] [phone] Yi Thompson MD [address] [place] [address] [phone] documented as of this encounter Goals Goal [...] documented as of this encounter Care Teams Tile Installer Relationship Specialty Start Date End Date Yi Thompson MD [address] [place] [address] PCP - General Internal Medicine 08/20/23 documented as of this encounter
--- OUTSIDE RECORDS SUMMARY | 2025-10-06 08:53 | XMS_ITS | Encounter Summary ---
Author Organization [employer] Address [address] [place] [address] Care Team Providers Care Bus Boy Name Role Phone Yi Thompson MD Primary Care Pro vider Encounter Details Date Type Department Care Team ([facility] st Contact Info) Description 10/05/2025 Orders Only [facility] MEDICINE [address] [place] [address] Yi Thompson MD 230 [place] [address] Health care maintenance (Primary Dx) Social History Tobacco Use Types [...] Description 10/10/2025 9:15 AM EST Office Visit [facility] MEDICINE [address] [place] [address] [phone] Yi Thompson MD 230 [place] [address] Scheduled Orders Name Type Priority Associated Diagnoses Orde r Schedule Albumin, Random Urine W/Creatinine Lab Routine Health care maintenance Expected: 10/05/2025 (Approximate), Expires: 10/05/2026 CBC auto differential Lab Routine Health care maintenance Expected: 10/05/2025 (Approximate), Expires: 10/05/2026 Chlamydia/Trichomonas/Neis seria gonorrhoeae, PCR, Urine Lab Routine Health care maintenance Expected: 10/05/2025 (Approximate), Expires: 10/05/2026 Comprehensive Metabolic Panel Lab Routine Health care maintenance Expected: 10/05/2025 (Approximate), Expires: 10/05/2026 Hemoglobin A1c Lab Routine Health care maintenance Expected: 10/05/2025 (Approximate), Expires: 10/05/2026 Hepatitis B surface antigen, EIA Lab Routine Health care maintenance Expected: 10/05/2025 (Approximate), Expires: 10/05/2026 Hepatitis C Antibody with Reflex to HCV, RNA, Quantitative, Real-Time PCR Lab Routine Health care maintenance Expected: 10/05/2025 (Approximate), Expires: 10/05/2026 HIV-1/2 Antigen and Antibodies, Fourth Generation, with Reflexes Lab Routine Health care maintenance Expected: 10/05/2025 (Approximate), Expires: 10/05/2026 Lipid Panel, Standard Lab Routine Health care maintenance Expected: 10/05/2025 (Approximate), Expires: 10/05/2026 Syphilis Screen Lab Routine Health care maintenance Expected: 10/05/2025 (Approximate), Expires: 10/05/2026 Vitamin B12 (Cobalamin) and Folate Panel, Serum Lab Routine Health care maintenance Expected: 10/05/2025 (Approximate), Expires: 10/05/2026 Vitamin D, 25-Hydroxy, Total, Immunoassay Lab Routine Health care maintenance Expected: 10/05/2025 (Approximate), Expires: 10/05/2026 T4, Free Lab Routine Health care maintenance Expected: 10/05/2025 (Approximate), Expires: 10/05/2026 TSH Lab Routine Health care maintenance Expected: 10/05/2025 (Approximate), Expires: 10/05/2026 Iron And Total Iron Binding Capacity Lab Routine Health care maintenance Expected: 10/05/2025 (Approximate), Expires: 10/05/2026 Ferritin Lab Routine Health care maintenance Expected: 10/05/2025 (Approximate), Expires: 10/05/2026 documented as of this encounter Goals Goal Patient Goal Type Associated Problems Recent Progress Patient-Stated? Author Blood Pressure < 140/90 Blood Pressure 130/82(2024 11:30 AM EDT) Jn Petit Hemoglobin A1c < 7 Result Component 7.1( 10:35 AM EDT) Jn Petit Help patients manage their type 2 diabetes Care Plan Help patients manage their type 2 diabetes Awilda Chaudhry Weekly blood pressure task Care Plan Weekly blood pressure task No wAilda Terry Help patients manage their type 2 [...] as of this encounter Visit Diagnoses Diagnosis Health care maintenance- Primary documented in this encounter Additional Health Concerns Active [...] documented as of this encounter Care Teams Bus Boy Relationship Specialty Start Date End Date Yi Thompson MD [address] [place] [address] PCP - General Internal Medicine 08/20/23 documented as of this encounter
--- OUTSIDE RECORDS SUMMARY | 2025-10-06 08:53 | XMS_ITS | Encounter Summary ---
Author Organization [employer] Address [address] [place] [address] Care Team Providers Care Dining Room Helper Name Role Phone Yi Thompson MD Primary Care Pro vider Reason for Visit * Reason Comments Med Refill Encounter Details Date Type Department Care Team ([facility] st Contact Info) Description 05/20/2024 Refill [facility] [address] [place] [phone] Name, MD Ronny [address] [place] [address] Social History Tobacco Use Types Packs/Day Years [...] Description 10/10/2025 9:15 AM EST Office Visit [facility] [address] [place] [address] [phone] Yi Thompson MD [address] [place] [address] [phone] documented as of this encounter Goals Goal [...] documented as of this encounter Care Teams Dining Room Helper Relationship Specialty Start Date End Date Yi Thompson MD [address] [place] [address] PCP - General Internal Medicine 08/20/23 documented as of this encounter
--- OUTSIDE RECORDS SUMMARY | 2025-10-06 08:53 | XMS_ITS | Encounter Summary ---
Author Organization [employer] Address [address] [place] [address] Care Team Providers Care Prover Name Role Phone Yi Thompson MD Primary Care Pro vider Reason for Visit * Reason Comments Pre-visit Planning SDOH screening was c ompleted on 04/06/2025 Encounter Details Date Type Department Care Team ([facility] st Contact Info) Description 10/02/2025 Patient Outreach [facility] MEDICINE [address] [place] [address] Yi Thompson MD [address] [place] [address] Pre-visit Planning (SDOH screening was completed on 04/06/2025) Social History Tobacco Use Types Packs/Day Years [...] as of this encounter Progress Notes * Awilda Terry - 10/02/2025 4:12 PM EST CHRISTIAN Amaral placed successful outbound call to patient for pre-visit planning. Patient name and confirmed. Patient confirms appt date and time, and has transportation arrangements. Biggest concern for appointment at this time is a lot of belly pain. Patient advised to bring to appointment a photo id and insurance card. Appropriate screenings completed in anticipation of appointment. documented in this encounter Plan of Treatment Upcoming Encounters Date Type Department Care Team ([facility] st Contact Info) Description 10/10/2025 9:15 AM EST Office Visit [facility] MED[facility]INE [address] [place] [address] Yi Thompson MD [address] [place] [address] documented as of this encounter [...] Patient has diabetic neuropathy No Awilda Terry documented as of this encounter Visit Diagnoses [...] neuropathy 10/02/2025 Patient has diabetic neuropathy 10/02/2025 Assessment Noted Time PHQ-9 Depression Total Score: 0 04/06/20 25 11:08 AM EDT documented as of this encounter Care Teams Prover Relationship Specialty Start Date End Date Yi Thompson MD [address] [place] [address] PCP - General Internal Medicine 08/20/23 documented as of this encounter
--- OUTSIDE RECORDS SUMMARY | 2025-10-06 08:53 | XMS_ITS | Encounter Summary ---
Author Organization [employer] Address [address] [place] [address] Care Team Providers Care Capacity Planning Analyst Name Role Phone Yi Thompson MD Primary Care Pro vider Reason for Visit * Reason Comments Med Refill Encounter Details Date Type Department Care Team ([facility] st Contact Info) Description 05/03/2024 Refill [facility] MEDICINE [address] [place] [address] Yi Thompson MD [address] [place] [address] Social History Tobacco Use Types Packs/Day Years [...] Description 10/10/2025 9:15 AM EST Office Visit [facility] MEDICINE [address] [place] [address] [phone] Yi Thompson MD [address] [place] [address] [phone] documented as of this encounter Goals Goal [...] documented as of this encounter Care Teams Capacity Planning Analyst Relationship Specialty Start Date End Date Yi Thompson MD [address] [place] [address] PCP - General Internal Medicine 08/20/23 documented as of this encounter
[2025-10-06 09:10] LABS: MANUAL DIFF FLAG NO
[2025-10-06 09:19] LABS: Hematocrit 34.0 % (37.0-47.0); Hemoglobin 10.5 g/dl (12.0-16.0); Imm Gran Abs Auto 0.02 X10*3/uL (0.00-0.03); Imm Gran Pct Auto 0.3 % (0.0-0.4); Lymphocytes Absolute Auto 1.8 X10*3/uL (1.2-4.9); Mean Corpuscular HGB Conc 30.9 g/dl (31.0-35.0); Mean Corpuscular Hemoglobin 23.4 pg (27.0-33.0); Mean Corpuscular Volume 75.7 fL (80.0-98.0); NRBC Abs Auto 0.000 X10*3/uL (0.0-0.012); NRBC Pct Auto 0.0 /100WBC (0.0-0.2); Platelet Count 334 X10*3/uL (160-400); Red Blood Count 4.49 X10*6/uL (4.20-5.50); White Blood Count 6.5 X10*3/uL (4.8-10.8)
[2025-10-06 09:28] LABS: Hemoglobin A1C 150.1102 umol/L
[2025-10-06 09:51] LABS: Alanine Aminotransferase 26 U/L (0-31); Albumin Level 4.9 g/dL (3.5-5.0); Alkaline Phosphatase 97 U/L (39-117); Anion Gap 13 (12-20); Aspartate Amino Transferase 27 U/L (5-31); Blood Urea Nitrogen 18 mg/dL (9-16); Calcium 9.2 mg/dL (8.4-10.2); Carbon Dioxide 26 mmol/L (22-29); Chloride 105 mmol/L (96-108); Cholesterol 227 mg/dL (<200); Estimated Glomerular Filt Rate > 60; HDL Cholesterol 44 mg/dL (>40); Iron 28 mcg/dL (30-160); Percent Iron Saturation 7 % (15-50); Potassium 4.3 mmol/L (3.3-5.1); Sodium 140 mmol/L (135-145); Total Iron Binding Capacity 385 mcg/dL (228-428); Total Protein 8.1 g/dL (6.5-8.0); Triglycerides 169 mg/dL (<150); Unsaturated Iron Binding 357 ug/dL
[2025-10-06 10:03] LABS: HBsAGNum1 0.33 S/CO (0.00-0.99); HIV Num 1 0.05 S/CO (0.00-0.99); Hepatitis B Surface Antigen Negative (Negative); ~HepC Num1 0.19 S/CO (0.00-0.79); ~Hepatitis C Antibody Nonreactive (Nonreactive)
[2025-10-06 10:06] LABS: Syphilis Screen Nonreactive (Nonreactive)
[2025-10-06 10:10] LABS: Ferritin 7 ng/mL (10-250); Free T4 (Free Thyroxine) 1.09 ng/dL (0.71-1.85); Thyroid Stimulating Hormone 5.81 uIU/mL (0.32-4.0)
[2025-10-06 10:17] LABS: Folate 12.5 ng/mL (> or = 4.0); Vitamin B12 434 pg/mL (200-900)
[2025-10-06 12:47] LABS: CT PCR Urine NOT DETECTED (Not Detect.); NG PCR Urine NOT DETECTED (Not Detect.)
== END 2025-10-06 08:50 | disposition home or self-care (01) ==
LOC: HO.LAB 08:49
PROVIDERS: PCP Student in an Organized Health Care Education/Training Program; Visit Provider Student in an Organized Health Care Education/Training Program
DX: Z00.00 Encounter for general adult medical examination without abnormal findings (principal); Z20.2 Contact with and (suspected) exposure to infections with a predominantly sexual mode of transmission; Z11.4 Encounter for screening for human immunodeficiency virus [HIV]; Z13.29 Encounter for screening for other suspected endocrine disorder; Z13.1 Encounter for screening for diabetes mellitus; Z13.6 Encounter for screening for cardiovascular disorders; Z13.21 Encounter for screening for nutritional disorder
CPT/HCPCS: 80053; 80061; 82043; 82306; 82570; 82607; 82728; 82746; 83036; 83540; 84439; 84443; 85025; 86780; 86803; 87340; 87389; 87491; 87591

== ENCOUNTER 2025-10-16 11:49 | Outpatient (REF) | payer OTHER, SELFPAY ==
--- NOTE | ~2025-10-16 | XR_ITS ---
EXAMINATION: XR RIBS, LEFT CLINICAL INFORMATION: Left anterior rib pain. COMPARISON: 11/20/2024 chest radiograph TECHNIQUE: PA chest, and 3 views of the left ribs were obtained. FINDINGS: Lungs are clear. No consolidation, pneumothorax, or pleural effusion. The cardiomediastinal silhouette and pulmonary vasculature are normal. Aortic mural calcification. Osseous structures are unremarkable. Ribs are intact. No fractures are identified. XR/XR ribs LT min 3V w CXR1V IMPRESSION: No acute findings in the thorax. No rib abnormality appreciated. Electronically signed by: Guanakito Melchor MD 10/16/2025 01:[address] [facility]
--- OUTSIDE RECORDS SUMMARY | 2025-10-16 15:37 | XMS_ITS | Encounter Summary ---
Author Organization [email or web address] Address [address] [facility] [address], [place] [address] Care Team Providers Care Pharmacy Manager Name Role Phone Yi Thompson MD Primary Care Pro vider Reason for Visit * Reason Comments Med Refill Encounter Details Date Type Department Care Team ([facility] st Contact Info) Description 09/15/2023 Refill [facility] MEDICINE [address] [place] [address] Juliet Bird, MARY ELLEN Primary hypertension; Type 2 diabetes mellitus without complication, without long-term current use of insulin (CMS/[facility]) Social History Tobacco Use Types Packs/Day [...] Care Team (Late st Contact Info) Description 10/17/2025 10:30 AM EST Immunization [facility] MEDICINE [address] [place] [address] documented as of this encounter Visit Diagnoses Diagnosis Primary hypertension Unspecified essential hypertension Type 2 diabetes mellitus without complication, without long-term current use of insulin (HCC) documented in this encounter Care Teams Pharmacy Manager Relationship Specialty Start Date End Date Yi Thompson MD [address] [place] [address] PCP - General Internal Medicine 08/20/23 documented as of this encounter
--- OUTSIDE RECORDS SUMMARY | 2025-10-16 15:37 | XMS_ITS | Encounter Summary ---
Author Organization [employer] Address [address] [place] [address] Care Team Providers Care Horse Trekking Guide Name Role Phone Yi Thompson MD Primary Care Pro vider Reason for Visit * Reason Comments Med Change Request Encounter Details Date Type Department Care Team ([facility] st Contact Info) Description 11/08/2023 Refill [facility] MEDICINE [address] [place] [address] [facility] [address] [place] [address] Viral upper respiratory illness Social History Tobacco [...] Info) Description 10/17/2025 10:30 AM EST Immunization [facility] MEDICINE [address] [place] [address] documented as of this encounter Visit Diagnoses Diagnosis Viral upper respiratory illness documented in this encounter Care Teams Horse Trekking Guide Relationship Specialty Start Date End Date Yi Thompson MD [address] [place] [address] PCP - General Internal Medicine 08/20/23 documented as of this encounter
--- OUTSIDE RECORDS SUMMARY | 2025-10-16 15:37 | XMS_ITS | Data Portability ---
Author Organization [place] [facility], Allergy Address [address] [address] Assessment No assessment recorded. Plan of Treatment [...] contr ast No observ ation record ed. [facility] Radiology ([facility]) [address] [facility] [address], [place], [address], 07/12/2024 17:28:21 07/12/20 24 03/07/2024 CT, neck, soft tissu e, w/ contr ast No observ ation record ed. [email or web address] Not Available 06/17 14:31:41 Result Notes None [...] Available [employer] 4 03:27:19 Oropharyn geal dysphagia [id number] Active 2023 CHANTEL MEYER MD [address] [address], [place], [address] , [facility] 4 14:16:46 Acquired vocal cord palsy [id number] Active 2023 CHANTEL MEYER MD [address] [place] [address], [place], [address] , [facility] 4 14:27:26 Problem Notes None recorded. Procedures Surgical History Date Name Laterality Status Provider Name and Address Organization Details Recorded Time 07/12/2024 FFL_RE completed CHANTEL MEYER MD [address] [place] [address],[place] [address], [place], [address], [facility] 07/12/2024 14:20:56 Imaging Results None recorded. Procedure Notes None recorded. Medical Equipment None Reported. Allergies Allergen ID Allergen Name Allergen Category Reaction Reaction Severity Criticality Documentation Date Start Date Code Code System Note Provider Name and Address Organization Details Recorded Time 35557 Product containin g penicilli n (product) medicatio n other Not available Not available 03/29/2024 92860 8001 SNOMED React ion: unkno wn, unspe cifie d;; Not Available [facility] 4 01:03:20 Medications Name Sig Start Date Stop Date Status Note LastModified by Organization Details LastModified Time medbox status USE DIRECTED active Not Available Not Available No t Available freestyle lite test strips strp active Not Available Not Available Not Available losartan 50 mg tablet active Medicati on ID: 59085 Br and Name: losartan Send Method: E-Prescr [...] 40 mg tablet active Medicati on ID: 42550 Br and Name: lovastat in Send Method: E-Prescr ibed Sub s Allowed: subs OK Medic ationGen ericName : lovastat in Not Available Not Available Not Available amlodipin e 5 mg tablet active Medicati on ID: 89063 Br and Name: amlodipi ne Send Method: [...] Not Available Not Available No t Available [place] Thyroid 15 mg tablet active Medicati on ID: 89349 Br and Name: [place] Thyroid Send Method: E-Prescr ibed Sub s Allowed: subs OK Medic ationGen ericName : [place] Thyroid Not Available Not Available Not Available amitripty line 25 mg tablet active Medicati on ID: 34758 Br and Name: amitript yline Se nd Method: E-Prescr ibed Sub s Allowed: subs OK Medic ationGen ericName : amitript yline Not Available Not Available Not Available Protonix 40 mg intraveno us solution active Medicati on ID: 52417 Br and Name: Protonix Send Method: E-Prescr [...] 150 mg capsule active Medicati on ID: 70150 Br and Name: ranitidi ne HCl Send Method: E-Prescr ibed Sub s Allowed: subs OK Medic ationGen ericName : ranitidi ne HCl Not Available Not Available Not Available hydrochlo rothiazid e 25 mg tablet active Medicati on ID: 94952 Br and Name: hydrochl orothiaz ro Send [...] 17 gram/dose oral powder USE DIRECTED BY [facility] active Not Available Not Available [...] release 24hr (osmotic) active Medicati on ID: 73690 Br and Name: metformi n Send Method: [...] tablet,de layed release active Medicati on ID: 41383 Du ration Value: 30 Brand Name: omeprazo [...] Updated DateTime 07/12/2024 165.1 cm 27.3 kg/m2 39960.15 g [place] [facility] 07/12/2024 14:07:22 Social History None recorded. Functional Status None recorded. Mental Status None recorded. Family History Nothing Reported. Medical History No medical history recorded. Gynecological HistoryNo gynecological history recorded. Obstetrics History GPAL:G 0 P 0 0 0 0 Past Encounters Encounter ID Performer Location Encounter Start Date Encounter Closed Date Diagnosis/Indication Diagnosis SNOMED-CT Code Diagnosis ICD10 Code Diagnosis IMO Codes Diagnosis Note [id number] CHANTEL MEYER MD [facility] [address] [address] 07/12/2024 13:49:31 07/12/2024 16:53:30 Oropharyngeal dysphagia 49648336 R13.12 Likely due to esophageal dysmotilit y. VC paralysis is a factor but doesn't explain her dysphagia to solids. I recommend she discuss GI referral with her PCP. I would be glad to see her as needed. I personally reviewed her imaging reports. Acquired v ocal cord palsy 841586830 J38.00 Likely from initial surgery 14 years [...] Name 07/12/2024 1 [facility] [id number] Giuseppe Rodriguez [id number] Sapna Garcia 07/12/2024 1 [facility] [id number] Giuseppe Rodriguez [id number] Sapna Garcia Notes Date Note Type [...] surgery. She had a swallow study at [facility]. She feels like food gets stuck. Has occasional choking with liquids. She has never smoked. She denies throat pain and SOB. I reviewed an Upper GI series which showed esophageal dysmotility. I also reviewed her CT neck with 02/2024 which showed possible right vocal cord paralysis. contrast CHANTEL MEYER MD [address] [place] [address], [place], [address], [facility] - [facility] 07/12/2024 14:28:36 OBGyn Episode No OBEpisode recorded.
--- OUTSIDE RECORDS SUMMARY | 2025-10-16 15:37 | XMS_ITS | Encounter Summary ---
Author Organization [employer] Address [address] [place] [address] Care Team Providers Care Night Auditor Name Role Phone Yi Thompson MD Primary Care Pro vider Reason for Visit * Reason Comments Med Refill Encounter Details Date Type Department Care Team ([facility] st Contact Info) Description 05/03/2024 Refill [facility] MEDICINE [address] [place] [address] Yi Thompson MD [address] [place] [address] Social History Tobacco Use Types Packs/Day Years [...] Info) Description 10/17/2025 10:30 AM EST Immunization [facility] MEDICINE [address] [place] [address] documented as of this encounter Goals Goal Patient Goal Type Associated Problems Recent Progress Patient-Stated? Author Blood Pressure < 140/90 Blood Pressure 108/68(2024 9:22 AM EST) No Jn Shah Hemoglobin A1c < 7 Result Component 7.3( 9:05 AM EST) No Jn Shah documented as of this encounter Visit Diagnoses Not on filedocumented in this encounter Additional Health Concerns Assessment Noted Time PHQ-9 Depression Total Score: 1 01/13/20 24 12:16 PM EST documented as of this encounter Care Teams Night Auditor Relationship Specialty Start Date End Date Yi Thompson MD [address] [place] [address] PCP - General Internal Medicine 08/20/23 documented as of this encounter
--- OUTSIDE RECORDS SUMMARY | 2025-10-16 15:37 | XMS_ITS | Encounter Summary ---
Author Organization [facility] Address [address] [place] [address] Care Team Providers Care Business Services Vice President Name Role Phone Yi Thompson MD Primary Care Pro vider Reason for Visit * Reason Comments Med Change Request Encounter Details Date Type Department Care Team ([facility] Contact Info) Description 03/15/2024 Refill [facility] MEDICINE [address] [place] [address] Leticia Plunkett, ANP [address] [place] [address] Sinus pressure Social History Tobacco Use Types [...] Info) Description 10/17/2025 10:30 AM EST Immunization [facility] MED[facility]INE [address] [place] [address] documented as of this encounter Goals Goal [...] as of this encounter Care Teams Business Services Vice President Relationship Specialty Start Date End Date Yi Thompson MD [address] [place] [address] PCP - General Internal Medicine 08/20/23 documented as of this encounter
--- OUTSIDE RECORDS SUMMARY | 2025-10-16 15:37 | XMS_ITS | Encounter Summary ---
Author Organization [employer] Address [address] [place] [address] Care Team Providers Care Eye Technician Name Role Phone Yi Thompson MD Primary Care Pro vider Reason for Visit * Reason Comments Med Refill Encounter Details Date Type Department Care Team ([facility] st Contact Info) Description 09/12/2024 Refill [facility] [address] [place] [address] Yi Thompson MD [address] [place] [address] Type 2 diabetes mellitus without complication, without long-term current use of insulin ([facility]) Social History Tobacco Use [...] Info) Description 10/17/2025 10:30 AM EST Immunization [facility] [address] [place] [address] documented as of this encounter Goals Goal [...] documented as of this encounter Care Teams Eye Technician Relationship Specialty Start Date End Date Yi Thompson MD [address] [place] [address] PCP - General Internal Medicine 08/20/23 documented as of this encounter
--- OUTSIDE RECORDS SUMMARY | 2025-10-16 15:37 | XMS_ITS | Encounter Summary ---
Author Organization [employer] Address [address] [place] [address] Care Team Providers Care Mechanical Design Drafter Name Role Phone Yi Thompson MD Primary Care Pro vider Reason for Referral * Imaging (STAT) - Pending Review Specialty Diagnoses / Procedures Referred By Contac t Referred To Contact Radiology Diagnoses Breast pain, left Procedures BI US Breast Limited Left Yi Thompson MD [address] [place] [address] Phone: tel: fax: Referral ID Status Reason Start Date Expiration Date V isits Requested Visits Authorized [id number] Pending Review 10/16/2025 10/16/2026 1 1 * Imaging (STAT) - Pending Review Specialty Diagnoses / Procedures Referred By Contac t Referred To Contact Radiology Diagnoses Breast pain, left Procedures BI Mammogram Diagnostic Tomosynthesis Bilateral Yi Thompson MD [address] [place] [address] Phone: tel: fax: Referral ID Status Reason Start Date Expiration Date V isits Requested Visits Authorized [id number] Pending Review 10/16/2025 10/16/2026 1 1 Encounter Details Date Type Department Care Team (Late st Contact Info) Description 10/16/2025 Orders Only [facility] [address] [place] [address] Yi Thompson MD [address] [place], [place] [phone] Breast pain, left (Primary Dx) Social History [...] Date Recorded Patient Health Questionnaire-9 Score 0 10/10/2025 Patient Health Questionnaire-9 Score 0 10/10/2025 Last PHQ-9: Questionnaire Data Not on file 1 12/10/2024 Housing Stability Answer Date Recorded What is [...] Date Recorded Patient Health Questionnaire-2 Score 0 10/10/2025 Internet Access Answer Date Recorded Internet Access [...] 10/17/2025 10:30 AM EST Immunization [facility] [address] [place] [address] Scheduled Orders Name Type Priority Associated Diagnoses Orde r Schedule BI Mammogram Diagnostic Tomosynthesis Bilateral Imaging STAT Breast pain, left Expected: 10/16/2025, Expires: 12/17/2026 BI US Breast Limited Left Imaging STAT Breast pain, left Expected: 10/16/2025, Expires: 10/16/2026 documented as of this encounter Goals Goal Patient Goal Type Associated Problems Recent Progress Patient-Stated? Author Blood Pressure < 140/90 Blood Pressure 108/68(2024 9:22 AM EST) No Jn Shah Hemoglobin A1c < 7 Result Component 7.3( 9:05 AM EST) No Jn Shah Help patients manage their [...] Care Plan Patient has diabetic neuropathy No Aiwlda Terry Weekly blood pressure task Care Plan [...] has diabetic neuropathy No Yi Thompson MD Weekly blood pressure [...] has diabetic neuropathy No Yi Thompson MD Weekly blood pressure task Care Plan Weekly blood pressure task No BarstowYasmin hanna [place] Weekly blood pressure task Care Plan Weekly blood pressure task No BarstowYasmin hanna [place] Weekly blood pressure task Care Plan Weekly blood pressure task No BarstowYasmin hanna [place] Patient has chronic kidney disease Care Plan Patient has chronic kidney disease No BarstowYasmin hanna [place] Patient has chronic kidney disease Care Plan Patient has chronic kidney disease No Yasmin Mullen [place] Patient has chronic kidney disease Care Plan Patient has chronic kidney disease No Yasmin Mullen [place] Patient has diabetic neuropathy Care Plan Patient has diabetic neuropathy No Yasmin Mullen [place] Patient has diabetic neuropathy Care Plan Patient has diabetic neuropathy No Yasmin Mullen [place] Patient has diabetic neuropathy Care Plan Patient has diabetic neuropathy No Yasmin Mullen [place] Weekly blood pressure task Care Plan Weekly blood pressure task No Yasmin Mullen [place] Weekly blood pressure task Care Plan Weekly blood pressure task No BarstowYasmin hanna [place] Weekly blood pressure task Care Plan Weekly blood pressure task No BarstowYasmin hanna [place] Patient has chronic kidney disease Care Plan Patient has chronic kidney disease No Yasmin Mullen [place] Patient has chronic kidney disease Care Plan Patient has chronic kidney disease No Yasmin Mullen [place] Patient has chronic kidney disease Care Plan Patient has chronic kidney disease No Yasmin Mullen [place] Patient has diabetic neuropathy Care Plan Patient has diabetic neuropathy No Yasmin Mullen [place] Patient has diabetic neuropathy Care Plan Patient has diabetic neuropathy No Yasmin Mullen [place] Patient has diabetic neuropathy Care Plan Patient has diabetic neuropathy No Yasmin Mullen [place] Weekly blood pressure task Care Plan Weekly [...] diabetic neuropathy 10/05/2025 Weekly blood pressure task 10/06/2025 Weekly blood pressure task 10/06/2025 Weekly blood pressure task 10/06/2025 Patient has chronic kidney disease 10/06/2025 Patient has chronic kidney disease 10/06/2025 Patient has chronic kidney disease 10/06/2025 Patient has diabetic neuropathy 10/06/2025 Patient has diabetic neuropathy 10/06/2025 Patient has diabetic neuropathy 10/06/2025 Weekly blood pressure task 10/09/2025 Weekly blood pressure task 10/09/2025 Weekly blood pressure task 10/09/2025 Patient has chronic kidney disease 10/09/2025 Patient has chronic kidney disease 10/09/2025 Patient has chronic kidney disease 10/09/2025 Patient has diabetic neuropathy 10/09/2025 Patient has diabetic neuropathy 10/09/2025 Patient has diabetic neuropathy 10/09/2025 Weekly blood pressure task 10/09/2025 Weekly blood pressure task 10/09/2025 Weekly blood pressure task 10/09/2025 Patient has chronic kidney disease 10/09/2025 Patient has chronic kidney disease 10/09/2025 Patient has chronic kidney disease 10/09/2025 Patient has diabetic neuropathy 10/09/2025 Patient has diabetic neuropathy 10/09/2025 Patient has diabetic neuropathy 10/09/2025 Weekly blood pressure task 10/16/2025 Weekly blood pressure task 10/16/2025 Weekly blood pressure task 10/16/2025 Patient has chronic kidney disease 10/16/2025 Patient has chronic kidney disease 10/16/2025 Patient has chronic kidney disease 10/16/2025 Patient has diabetic neuropathy 10/16/2025 Patient has diabetic neuropathy 10/16/2025 Patient has diabetic neuropathy 10/16/2025 Assessment Noted Time PHQ-9 Depression Total Score: 0 10/10/20 25 10:06 AM EST documented as of this encounter Care Teams Mechanical Design Drafter Relationship Specialty Start Date End Date Yi Thompson MD [address] [place] [address] PCP - General Internal Medicine 08/20/23 documented as of this encounter
--- OUTSIDE RECORDS SUMMARY | 2025-10-16 15:37 | XMS_ITS | Encounter Summary ---
Author Organization [employer] [employer] Address [address] [place] [address] Care Team Providers Care Support Services Rep Name Role Phone Yi Thompson MD Primary Care Pro vider Reason for Visit * Reason Onset Date Comments Results 10/06/2025 Encounter Details Date Type Department Care Team ([facility] st Contact Info) Description 10/06/2025 Results Follow-Up [facility] [address] [place] [address] Yi Thompson MD [address] [place] [address] Albumin, Random Urine W/Creatinine, CBC auto differential, Chlamydia/Trichomona s/Neisseria gonorrhoeae, PCR, Urine, Additional followed-up results: 14 Social History Tobacco Use Types Packs/Day Years [...] Telephone Encounter - Kaitlynn Faulkner RN - 10/16/2025 2:59 PM EST Telephone call to pt via BLS [phone]. Informed chest xray/rib xray normal. Plan per Dr. Shaver is to follow up with pain management clinic for possible nerve block. Pt asking for mammogram, states the left breast pain inside is so bad especially when laying down, feelings the pain pulling forward. She states the Emla cream is not helping. She is asking for another mammogram. Advised her again of plan per provider, will send message. Pt verbalized understanding. * Telephone Encounter - Kiatlynn Faulkner RN - 10/16/2025 2:50 PM EST ----- Message from Yi Cleary MD sent at 10/16/2025 2:40 PM EST ----- Please inform pt rib XR /chest x-ray is normal Please advise pt to discuss further of chronic pain in left rib area w Pain management , pt may need a nerve block And to follow w me in 3 months as rec at recent apt Thanks ----- Message ----- From: Trista, Ris Results In Sent: 10/16/2025 1:10 PM EST To: Yi Cleary MD * Result Encounter Note - Yi Cleary MD - 10/16/2025 2:40 PM EST Please inform pt rib XR /chest x-ray is normal Please advise pt to discuss further of chronic pain in left rib area w Pain management , pt may need a nerve block And to follow w me in 3 months as rec at recent apt Thanks * Result Encounter Note - Yi Cleary MD - 10/06/2025 1:19 PM EST Please call patient to advise to come to already scheduled apt with me to go over abnormal labs Thanks documented in this encounter Plan of Treatment Upcoming Encounters Date Type Department Care Team (Late st Contact Info) Description 10/17/2025 10:[address] [facility] [address] [place] [address] documented as of this encounter Goals Goal [...] neuropathy 10/06/2025 Patient has diabetic neuropathy 10/06/2025 Assessment Noted Time PHQ-9 Depression Total Score: 0 04/06/20 11:08 AM EDT documented as of this encounter Care Teams Support Services Rep Relationship Specialty Start Date End Date Yi Thompson MD [address] [place] [address] PCP - General Internal Medicine 08/20/23 documented as of this encounter
--- OUTSIDE RECORDS SUMMARY | 2025-10-16 15:37 | XMS_ITS | Encounter Summary ---
Author Organization [employer] Address [address] [place] [address] Care Team Providers Care Digital Forensics Examiner Name Role Phone Yi Thompson MD Primary Care Pro vider Reason for Visit * Reason Onset Date Comments Call Back Request 04/25/2025 Encounter Details Date Type Department Care Team ([facility] Contact Info) Description 04/25/2025 Telephone [facility] [address] [place] [address] Yi Thompson MD [address] [place] [address] Call Back Request Social History Tobacco Use [...] Telephone call from Norah at [facility] Physical Therapy Department: Norah, the Ballet ProfessorItalian Lecturer, informed that a referral has been received for the patient. However, the physical therapy provider would like to speak directly with the referring provider--not nursing staff--regarding the referral. When calling [facility] at [phone], ask for Norah. She will transfer the call to the appropriate provider, as there is no direct line available. documented in this encounter Plan of Treatment Upcoming Encounters Date Type Department Care Team (Late st Contact Info) Description 10/17/2025 10:30 AM EST Immunization [facility] [address] [place] [address] documented as of this encounter Goals Goal [...] documented as of this encounter Care Teams Digital Forensics Examiner Relationship Specialty Start Date End Date Yi Thompson MD [address] [place] [address] PCP - General Internal Medicine 08/20/23 documented as of this encounter
--- OUTSIDE RECORDS SUMMARY | 2025-10-16 15:37 | XMS_ITS | Encounter Summary ---
Author Organization [employer] Address [address] [place] [address] Care Team Providers Care Gun Striper Name Role Phone Yi Thompson MD Primary Care Pro vider Reason for Visit * Reason Comments Med Refill Encounter Details Date Type Department Care Team ([facility] st Contact Info) Description 05/20/2024 Refill [facility] [address] [place] [phone] Name, MD Ronny [address] [place] [address] Social History Tobacco Use Types Packs/Day Years [...] Info) Description 10/17/2025 10:30 AM EST Immunization [facility] [address] [place] [address] documented as of this encounter Goals Goal [...] documented as of this encounter Care Teams Gun Striper Relationship Specialty Start Date End Date Yi Thompson MD [address] [place] [address] PCP - General Internal Medicine 08/20/23 documented as of this encounter
--- OUTSIDE RECORDS SUMMARY | 2025-10-16 15:37 | XMS_ITS | Encounter Summary ---
Author Organization [email or web address] Address [address] [place] [address] Care Team Providers Care Manufacturer Name Role Phone Juliet Bird Primary Care Provider Yi Jessica MD Primary Care Pro vider Reason for Visit * Reason Comments Med Refill Encounter Details Date Type Department Care Team (Late st Contact Info) Description 01/28/2023 Refill [facility] [address] [place] [address] [facility] [address] [place] [address] Primary hypertension Social History Tobacco Use Types [...] Department Care Team (Late Contact Info) Description 10/17/2025 10:30 AM EST Immunization [facility] [address] [place], [place] [phone] documented as of this encounter Visit Diagnoses Diagnosis Primary hypertension Unspecified essential hypertension documented in this encounter Care Teams Manufacturer Relationship Specialty Start Date End Date Juliet Bird FNP PCP - General Family Medicine 01/22/23 08/19/23 Yi Thompson MD [address] [place] [address] PCP - General Internal Medicine 08/20/23 documented as of this encounter
--- OUTSIDE RECORDS SUMMARY | 2025-10-16 15:37 | XMS_ITS | Encounter Summary ---
Author Organization [employer] Address [address] [place] [address] Care Team Providers Care Web Design Intern Name Role Phone Yi Thompson MD Primary Care Pro vider Reason for Visit * Reason Onset Date Comments Nurse Triage 02/15/2024 Encounter Details Date Type Department Care Team ([facility] st Contact Info) Description 02/15/2024 Telephone [facility] [address] [place] [address] Yi Thompsno MD [address] [place] [address] Nurse Triage Social History Tobacco Use Types [...] 02/15/2024 12:44 PM EDT Triage call with [employer] Technician [place] [id number] Pt reports headache frontal and back of [...] 400pm. Pt is advised to come to [facility] which is open till 8pm [...] Info) Description 10/17/2025 10:30 AM EST Immunization [facility] [address] [place] [address] documented as of this encounter Visit Diagnoses Not on filedocumented in this encounter Additional Health Concerns Assessment Noted Time PHQ-9 Depression Total Score: 1 01/13/20 24 12:16 PM EST documented as of this encounter Care Teams Web Design Intern Relationship Specialty Start Date End Date Yi Thompson MD [address] [place] [address] PCP - General Internal Medicine 08/20/23 documented as of this encounter
--- OUTSIDE RECORDS SUMMARY | 2025-10-16 15:37 | XMS_ITS | Encounter Summary ---
Author Organization [employer] Address [address] [place] [address] Care Team Providers Care Openstack Developer Name Role Phone Yi Thompson MD Primary Care Pro vider Reason for Referral * Consultation (Routine) - Authorized Specialty Diagnoses / Procedures Referred By Contac t Referred To Contact Pharmacy Diagnoses Hypertension Maria Del Carmen Meza MD [address] [place] [address] Phone: tel: fax: Referral ID Status Reason Start Date Expiration Date Visits Requested Visits Authorized [id number] Authorized Continuity of Care 04/03/2025 04/03/2026 6 6 Encounter Details Date Type Department Care Team ([facility] st Contact Info) Description 03/30/[address] [facility] [address] [place] [address] Maria Del Carmen Meza MD [address] [place], [place] [phone] Hypertension (Primary Dx) Social History Tobacco Use [...] Description 10/17/2025 10:[address] [facility] [address] [place] [address] [phone] Scheduled Referrals Name Type Priority Associated Diagnoses [...] AM EDT Narrative 04/12/2025 9:59 AM EDT [place] [address] Magnetic Resonance Report Signed Patient: Sapna Herzog MR#: [id number] : 1960 Acct:[id number] Age/Sex: 64 / F ADM Date: 04/12/25 Loc: HO.MRI Attending Dr: Pratik Estes MD Ordering Physician: Pratik Estes MD Date of Service: 04/12/25 Procedure(s): MR cervical spine wo con Accession Number(s): [id number] cc: Pratik Estes MD; Yi Thompson MD [...] 04/12/25 0956 DD/ 0821 TD/TT: 04/12/25 0837 Palm And Back Forger: Procedure Note Donotuseinterpreter, Image - 04/12/[address] [address] Magnetic Resonance Report Signed Patient: Sapna Herzog CMR#: [id number] : 9Acct:[id number] Age/Sex: 64 / FADM Date: 04/12/25 Loc: HO.MRI Attending Dr: Pratik Estes MD Ordering Physician: Pratik Estes MD Date of Service: 04/12/25 Procedure(s): MR cervical spine wo con Accession Number(s): [id number] cc: Pratik Estes MD; Yi Thompson MD [...] 04/12/25 0956 DD/ 0821 TD/TT: 04/12/25 0837 Palm And Back Forger: [facility] External Provider IMG MRI PROCEDURES Final Result documented in this encounter Visit Diagnoses Diagnosis Hypertension- Primary Unspecified essential hypertension documented in this encounter Additional Health Concerns Assessment Noted Time PHQ-9 Depression Total Score: 1 01/13/20 24 12:16 PM EST documented as of this encounter Care Teams Openstack Developer Relationship Specialty Start Date End Date Yi Thompson MD [address] [place] [address] PCP - General Internal Medicine 08/20/23 documented as of this encounter
--- OUTSIDE RECORDS SUMMARY | 2025-10-16 15:37 | XMS_ITS | Encounter Summary ---
Author Organization [employer] Address [address] [place] [address] Care Team Providers Care Maintenance Engineer Name Role Phone Yi Thompson MD Primary Care Pro vider Encounter Details Date Type Department Care Team ([facility] st Contact Info) Description 11/06/2024 Orders Only [facility] [address] [place] [address] Provider, MD Lux Social History Tobacco Use [...] Info) Description 10/17/2025 10:30 AM EST Immunization [facility] [address] [place], [place] [phone] documented as of this encounter Goals Goal [...] documented as of this encounter Care Teams Maintenance Engineer Relationship Specialty Start Date End Date Yi Thompson MD [address] [place] [address] PCP - General Internal Medicine 08/20/23 documented as of this encounter
--- OUTSIDE RECORDS SUMMARY | 2025-10-16 15:37 | XMS_ITS | Encounter Summary ---
Author Organization [employer] Address [address] [place] [address] Care Team Providers Care Corporate Strategy Intern Name Role Phone Juliet Bird Primary Care Provider Yi Jessica MD Primary Care Pro vider Reason for Visit * Reason Comments Med Refill Encounter Details Date Type Department Care Team (Late Contact Info) Description 06/28/2023 Refill [facility] [address] [place] [address] Juliet Bird FNP Social History Tobacco Use [...] Info) Description 10/17/2025 10:30 AM EST Immunization [facility] [address] [place] [address] documented as of this encounter Visit Diagnoses Not on filedocumented in this encounter Care Teams Corporate Strategy Intern Relationship Specialty Start Date End Date Juliet Bird FNP PCP - General Family Medicine 01/22/23 08/19/23 Yi Thompson MD [address] [place] [address] PCP - General Internal Medicine 08/20/23 documented as of this encounter
--- OUTSIDE RECORDS SUMMARY | 2025-10-16 15:37 | XMS_ITS | Encounter Summary ---
Author Organization [employer] Address [address] [place] [address] Care Team Providers Care Bench Hand Name Role Phone Yi Thompson MD Primary Care Pro vider Reason for Visit * Reason Comments Med Change Request Encounter Details Date Type Department Care Team ([facility] st Contact Info) Description 11/11/2023 Refill [facility] [address] [place] [address] [facility] [address] [place] [address] Viral upper respiratory illness Social History Tobacco [...] 10/17/2025 10:30 AM EST Immunization [facility] [address] [place] [address] documented as of this encounter Visit Diagnoses Diagnosis Viral upper respiratory illness documented in this encounter Care Teams Bench Hand Relationship Specialty Start Date End Date Yi Thompson MD [address] [place] [address] PCP - General Internal Medicine 08/20/23 documented as of this encounter
--- OUTSIDE RECORDS SUMMARY | 2025-10-16 15:37 | XMS_ITS | Encounter Summary ---
Author Organization [employer] Address [address] [place] [address] Care Team Providers Care Last Marker Name Role Phone Yi Thompson MD Primary Care Pro vider Reason for Visit * Reason Comments Med Refill Encounter Details Date Type Department Care Team ([facility] st Contact Info) Description 06/02/2024 Refill [facility] [address] [place] [address] Yi Thompson MD [address] [place] [address] Social History Tobacco Use Types Packs/Day Years [...] Info) Description 10/17/2025 10:30 AM EST Immunization [facility] [address] [place] [address] documented as of this encounter Goals Goal [...] documented as of this encounter Care Teams Last Marker Relationship Specialty Start Date End Date Yi Thompson MD [address] [place] [address] PCP - General Internal Medicine 08/20/23 documented as of this encounter
--- OUTSIDE RECORDS SUMMARY | 2025-10-16 15:38 | XMS_ITS | Encounter Summary ---
Author Organization [employer] Address [address] [place] [address] Care Team Providers Care Hand Mold Maker Name Role Phone Juliet Bird Primary Care Provider Yi Jessica MD Primary Care Pro vider Reason for Visit * Reason Onset Date Comments triage 02/27/2023 Encounter Details Date Type Department Care Team (Late st Contact Info) Description 02/27/2023 Telephone [facility] [address] [place] [address] Juliet Bird FNP triage Social History Tobacco [...] 02/27/2023 4:58 PM EDT Triage call with [place] [employer]ic [place] [id number] Pt reports a couple of days of [...] now The caller accepted this outcome speaks welsh documented in this encounter Plan of Treatment Upcoming Encounters Date Type Department Care Team (Late st Contact Info) Description 10/17/2025 10:30 AM EST Immunization [facility] [address] [place] [address] documented as of this encounter Visit Diagnoses Not on filedocumented in this encounter Care Teams Hand Mold Maker Relationship Specialty Start Date End Date Juliet Bird FNP PCP - General Family Medicine 01/22/23 08/19/23 Yi Thompson MD [address] [place] [address] PCP - General Internal Medicine 08/20/23 documented as of this encounter
--- OUTSIDE RECORDS SUMMARY | 2025-10-16 15:38 | XMS_ITS | Clinical Summary ---
Author Organization [employer] Address [address] [place] [address] 7 [place] [address] Care Team Providers Care Trimming Inspector Name Role Phone Yi Thompson MD Primary Care Pro vider Allergies Active Allergy Reactions Criticality Noted Date Comments Penicillins Hives High 12/28/2013 Other reaction(s): SWELLING , Unknown Other reaction(s): swelling pt received dose of cefazolin pre-op 07/04. Per CAT Britton, pt tolerated without issue Medications Spacer/Aero-H olding Chambers (OptiChamber Delisa) misc 1 each every [...] tablet 1 02/22/20 25 Active Lancets 33G miscIndicatio ns:Type 2 diabetes mellitus without complication, without long-term current use of insulin (HCC) USE TO TEST BLOOD SUGAR TWICE A DAY 100 each 11 5 4:35 PM EST 05/22/20 25 Active Breo Ellipta 200-25 MCG/ACT aerosol powder 04/06/20 Active amitriptyline (Elavil) 10 MG tablet Take 10 mg by mouth at bedtime. Active Ferrous Sulfate (iron) 325 (65 Fe) MG tablet Take 1 tablet (325 mg) by mouth at noon and 1 tablet (325 mg) in the evening. 180 tablet 1 04/26/20 25 Active albuterol 108 (90 Base) MCG/ACT inhalerIndica tions:Wheezin g Inhale 2 puffs every 6 (six) hours if needed for wheezing. 18 g 2 04/26/20 25 Active Alcohol Swabs pads 1 Swab at noon and 1 Swab in the evening. Use to test blood sugar twice daily. 100 each 04/26/20 25 Active losartan-hydr oCHLOROthiazi de (Hyzaar) 100-12.5 MG tablet Take 1 tablet by mouth Once per day. TAKE 1 TABLET BY MOUTH EVERYDAY AT NOON 90 tablet 1 04/26/20 25 Active D3 Super Strength 50 MCG (2000 UT) capsule Take 1 capsule by mouth in the morning. 04/06/20 25 Active glucose blood (Contour Next Test) test strip 1 each by Other route at noon and 1 each in the evening. 100 each 12 06/02/20 25 Active Ascorbic Acid (vitamin C) [...] 2 each 06/09/20 25 Active metFORMIN XR (Glucophage-X R) 500 MG 24 hr tabletIndicat ions:Type 2 diabetes mellitus without complication, without long-term current use of insulin (HCC) TAKE 1 TABLET BY MOUTH TWICE DAILY AT NOON AND IN THE EVENING WITH MEALS DO NOT BREAK, CRUSH, DISSOLVE OR CHEW 180 tablet 2 06/29/20 25 Active montelukast (Singulair) 10 MG tablet TAKE 1 TABLET BY MOUTH EVERYDAY AT NOON 30 tablet 2 5 4:35 PM EST 07/24/20 25 Active Januvia 100 MG tabletIndicat ions:Type 2 diabetes mellitus without complication, without long-term current use of insulin ([facility]) TAKE 1 TABLET BY MOUTH EVERY MORNING 90 tablet 1 5 4:35 PM EST 09/21/20 25 Active pantoprazole (ProtoNix) 40 MG EC tablet TAKE 1 TABLET BY MOUTH EVERY MORNING 30 tablet 2 5 4:35 PM EST 09/27/20 25 Active Bisacodyl EC 5 MG EC tablet take 2 tablets by mouth every day at bedtime 08/18/20 Active rizatriptan (Maxalt) 10 MG tablet 07/19/20 Active Estradiol (Estrace) 0.01 % cream Insert 1 g into the vagina Once per day. twice weekly 42.5 g 1 5 4:35 PM EST 10/10/20 Active metFORMIN (Glucophage) 1000 MG tablet Take 1 tablet (1,000 mg) by mouth with breakfast and with evening meal. 60 tablet 3 5 4:35 PM EST 10/10/20 25 Active atorvastatin (Lipitor) 10 MG tablet Take 1 tablet (10 mg) by mouth Once per day. 90 tablet 5 4:35 PM EST 10/10/20 25 026 Active lidocaine-claudette locaine (Emla) 2.5-2.5 % cream Apply topically if needed each day for mild pain. 5 g 5 4:35 PM EST 10/10/20 25 Active Januvia 100 MG tabletIndicat ions:Type 2 diabetes mellitus without complication, without long-term current use of insulin ([facility]) TAKE 1 TABLET BY MOUTH EVERY MORNING 90 tablet 1 04/06/20 25 025 Discontinued estradiol (Estrace) 0.1 MG/GM vaginal cream Insert 1 g into the vagina Once per day. twice weekly 45 g 2 04/26/20 25 025 Discontinued(Re order (will not trigger notification to Pharmacy)) lidocaine-claudette locaine (Emla) 2.5-2.5 % cream Apply topically if needed each day for mild pain. 5 g 04/26/20 25 11/25/2 025 Discontinued(Re order (will not trigger notification to Pharmacy)) atorvastatin (Lipitor) 10 MG tablet Take 1 tablet (10 mg) by mouth Once per day. 90 tablet 05/26/20 25 025 Discontinued(Re order (will not trigger notification to Pharmacy)) pantoprazole (ProtoNix) 40 MG EC tablet TAKE 1 TABLET BY MOUTH EVERY MORNING 30 tablet 2 06/29/20 25 025 Discontinued Active Problems Problem Noted Date Diagnosed Date Costochondritis 10/13/2025 Interstitial cystitis 10/13/2025 Chronic right-sided low back pain with right-lenin ed sciatica 10/28/2024 Assessment & Plan (10/28/2024 9:46 AM EST): Will send for 300 mg gabapentin at bedtime as patient didn't have med on hand. Educated pt about anticipated side effects of medication including drowsiness. Consideration for PT once patient returns from [facility] in January. Dysphagia 01/13/2024 Microcytosis 01/13/2024 Pain in finger [...] Forgetfulness 04/15/2023 Overview (08/20/2023): Seen at [facility] on 07/15/2020 for [...] for vascular referral once patient returns from [facility] in January. Irritable bowel [...] improve. 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 04/09/2023 04/15/2023 Thyroid cancer (CMS/HCC) 01/04/2019 Multiple joint pain 09/03/2018 04/15/20 Calcaneal spur 08/05/2018 09/17/2023 Gastroesophageal reflux disease 05/01/2014 04/15/2023 Encounters Date Type Department Care Team Description 10/16/2025 Orders Only [facility] [address] [place] [address] Yi Thompson MD Breast pain, left (Primary Dx) 10/10/2025 9:15 AM EST Office Visit [address] [address] Yi Thompson MD Rib pain (Primary Dx); Type 2 diabetes mellitus without complication, without long-term current use of insulin (HCC); Hypertension, unspecified type; Health care maintenance; Forgetfulness; Complex regional pain syndrome type 1 of both upper extremities; Costochondritis; Interstitial cystitis 10/10/2025 Travel 10/09/[address] [address] Yi Thompson MD chart prep 10/06/2025 Results Follow-Up [address] [address] Yi Thompson MD Albumin, Random Urine W/Creatinine, CBC auto differential, Chlamydia/Trichomona s/Neisseria gonorrhoeae, PCR, Urine, Additional followed-up results: 14 10/05/2025 Orders Only [address] [address] Yi Thompson MD Health care maintenance (Primary Dx) 10/05/[address] [address] Yi Thompson MD Lab Orders 10/02/2025 Patient Outreach [address] [address] Yi Thompson MD Pre-visit Planning (SDOH screening was completed on 04/06/2025) 09/27/[address] [facility] [address] [place], [place] [phone] Yi Thompson MD 09/21/[address] [address] Yi Thompson MD Type 2 diabetes mellitus without complication, without long-term current use of insulin (HCC) 08/25/2025 Orders Only GENERIC EXTERNAL DATA DEPARTMENT Provider, Generic External Data 08/23/2025 3:30 PM EDT Immunization [address] [address] Kaitlynn Faulkner, CAT Encounter for immunization 08/23/2025 Travel 08/16/2025 11:15 AM EDT Office Visit [address] [address] Tere Thompson NP Paronychia of finger of right hand (Primary Dx) 08/16/2025 Travel 08/15/[address] [address] Yi Thompson MD Nurse Triage 07/25/2025 Orders Only GENERIC EXTERNAL DATA DEPARTMENT Provider, Generic External Data 07/23/2025 Refill [facility] [address] [place] [address] Yi Thompson MD 07/21/2025 Orders Only [facility] External Provider, [facility] 07/20/[address] [address] Yi Thompson MD Call Back Request from [...] Sign Reading Time Taken Comments Blood Pressure 108/68 10/10/2025 9:22 AM EST Pulse 96 10/10/2025 9:22 AM EST Temperature 36.2 C (97.1 F) 10/10/2025 9:22 AM EST Respiratory Rate 20 10/10/2025 9:22 AM EST Oxygen Saturation 98% 10/10/2025 9:22 AM EST Inhaled Oxygen Concentration - - Weight 69.7 kg (153 lb 9.6 oz) 10/10/2025 9:22 A M EST Height 165.1 cm (5' 5 ) 10/10/2025 9:22 AM EST Body Mass Index 25.56 10/10/2025 9:22 AM EST Plan of Treatment Upcoming Encounters Date Type Department Care Team (Late st Contact Info) Description 10/17/2025 10:30 AM EST Immunization [facility] [address] [place] [address] [phone] Health Maintenance Due Date Last Done Comments CT Colonography 1960 FIT DNA/Cologuard 1960 Sigmoidoscopy 1960 Diabetes: Foot Exam 1968 RSV Patients and Patients Aged 60 years or older (1 - Risk 50-74 years 1-dose series) 2008 COVID-19 Vaccine ( season) 2025 01/31/2022, 02/05/2021, 01/08/2021 Colonoscopy 11/03/2025 11/03/2024 Colorectal Cancer Screening 11/03/2025 Diabetes: Hemoglobin A1C 01/06/2026 025, 05/26/2025, 04/26/2025, Additional history exists Alcohol/Substance Use Screening 04/06/2026 04/06/2025 SDOH Screening 04/06/2026 04/06/2025 FIT 05/26/2026 05/26/2025 FOBT 05/26/2026 05/26/2025 Eye Exam 08/08/2026 08/08/2024, 07/18, 08/08/2024, Additional history exists Diabetes: Urine Protein Screening 10/06/2026 10/06/2025, 05/26/2025, 04/26/2025, Additional history exists Lipid Panel 10/06/2026 10/06/2025, 05/16, 04/26/2025, Additional history exists Depression Screening 10/10/2026 10/10/2025, 10/10/20 Tobacco Screening 10/10/2026 10/10/2025 Mammogram 02/07/2027 02/07/2025, 01/15, 01/13/2024, Additional history exists DTaP/Tdap/Td Vaccines (3 - Td or Tdap) 12/02/2033 12/02/2023, 08/30/2013 Hepatitis B Vaccines Completed 08/09/2014, 04/04/2014, 03/02/2014 Cervical Cancer Screening Discontinued HPV/Cotest Discontinued 10/25/2020 Pap Smear Discontinued 10/25/2020 Pneumococcal Vaccine: 50+ Years Completed 12/02/2023, 08/08/2014 Zoster Vaccines Completed 08/16/2024, 05/03/2024 Influenza Vaccine Completed 08/23/2025, , 10/14/2022, Additional history exists Hepatitis C Screening Completed 10/06/2025, 024 HIB Vaccines Aged Out No longer eligi [...] 140/90 Blood Pressure 108/68(2024 9:22 AM EST) Jn Petit Hemoglobin A1c < 7 Result Component 7.3( 9:05 AM EST) Jn Petit Help patients manage their type [...] Plan Weekly blood pressure task No Yasmin uMllen MA Patient has chronic kidney disease Care [...] blood pressure task No Yasmin Mullen MA Patient has chronic [...] Plan Patient has chronic kidney disease No iY Thompson MD Patient has chronic kidney disease Care Plan Patient has chronic kidney disease No Yi Thompson MD Patient has diabetic neuropathy Care Plan Patient has diabetic neuropathy No Yi Thompson MD Patient has diabetic neuropathy Care Plan Patient has diabetic neuropathy No Yi Thompson MD Patient has diabetic neuropathy Care Plan Patient has diabetic neuropathy No Yi Thompson MD Procedures Procedure Name Priority Date/Time Associated Diagnosis Comments XR RIBS 3 VIEWS LEFT W CHEST Routine 10/16/2025 12:25 PM EST CHLAMYDIA/TRICHOMONAS/N EISSERIA GONORRHOEAE, PCR, URINE Routine 10/06/2025 9:30 AM EST Health care maintenance ALBUMIN, RANDOM URINE W/CREATININE Routine 10/06/2025 9:30 AM EST Health care maintenance FERRITIN Routine 10/06/2025 9:05 AM EST Health care maintenance IRON AND TOTAL IRON BINDING CAPACITY Routine 10/06/2025 9:05 AM EST Health care maintenance TSH Routine 10/06/2025 9:05 AM EST Health care maintenance T4, FREE Routine 10/06/2025 9:05 AM EST Health care maintenance VITAMIN D,25-OH,TOTAL,IA Routine 10/06/2025 9:05 AM EST Health care maintenance VITAMIN B12/FOLATE, SERUM PANEL Routine 10/06/2025 9:05 AM EST Health care maintenance SYPHILIS SCREEN Routine 10/06/2025 9:05 AM EST Health care maintenance LIPID PANEL, STANDARD Routine 10/06/2025 9:05 AM EST Health care maintenance HIV 1/2 ANTIGEN/ANTIBODY, FOURTH GENERATION W/RFL Routine 10/06/2025 9:05 AM EST Health care maintenance HEPATITIS C AB W/REFL TO HCV RNA, QN, PCR Routine 10/06/2025 9:05 AM EST Health care maintenance HEPATITIS B SURFACE ANTIGEN, EIA Routine 10/06/2025 9:05 AM EST Health care maintenance HEMOGLOBIN A1C Routine 10/06/2025 9:05 AM EST Health care maintenance COMPREHENSIVE METABOLIC PANEL Routine 10/06/2025 9:05 AM EST Health care maintenance CBC WITH AUTO DIFFERENTIAL Routine 10/06/2025 9:05 AM EST Health care maintenance HEMATOXYLIN AND EOSIN STAIN Routine 08/25/2025 2:56 PM EDT GLUCOSE, WHOLE BLOOD Routine 08/25/2025 1:[address] ABDOMEN PELVIS WO CONTRAST Routine 08/02/2025 3:47 PM EDT Right lower quadrant pain CULTURE, URINE, ROUTINE Routine 07/25/20 9:13 AM EDT GLUCOSE, WHOLE BLOOD Routine 07/25/2025 7:11 AM EDT US PELVIS TRANSVAGINAL Routine 2:48 PM EDT FECAL GLOBIN BY IMMUNOCHEMISTRY Routine 05/26/2025 12:00 AM EDT BI US BREAST LIMITED LEFT Urgent 02/07/2025 10:44 AM EDT HM COLONOSCOPY Routine 11/03/2024 6:36 PM EST HPV MRNA E6/E7 Routine 10/25/2020 10:02 AM EST THINPREP PAP Routine 10/25/2020 10:02 AM EST from Last 3 Months or Most Recently Relevant to Health Maintenance Results * XR Ribs 3 Views Left w/ Chest (10/16/2025 12:25 PM EST) Anatomical Region Laterality Modality Radiographic Criss ging 10/16/2025 12:2 5 PM EST Narrative 10/16/2025 1:10 [place] [address] XRay Report Signed Patient: Sapna Herzog MR#: [id number] : 1960 Acct:[id number] Age/Sex: 64 / F ADM Date: 10/16/25 Loc: HO.HHCX Attending Dr: Yi Cleary MD Ordering Physician: Yi Thompson MD Date of Service: 10/16/25 Procedure(s): XR ribs LT min 3V w CXR1V Accession Number(s): [id number] cc: Yi Thompson MD Reason for Exam: PAIN EXAMINATION: XR RIBS, LEFT CLINICAL INFORMATION: Left anterior rib pain. COMPARISON: 11/20/2024 chest radiograph TECHNIQUE: PA chest, and 3 views of the left ribs were obtained. FINDINGS: Lungs are clear. No consolidation, pneumothorax, or pleural effusion. The cardiomediastinal silhouette and pulmonary vasculature are normal. Aortic mural calcification. Osseous structures are unremarkable. Ribs are intact. No fractures are identified. XR/XR ribs LT min 3V w CXR1V IMPRESSION: No acute findings in the thorax. No rib abnormality appreciated. Electronically signed by: Guanakito Melchor MD 10/16/2025 01:07 PM [facility] Dictated By: Guanakito Melchor MD Signed By: <Electronically signed by Guanakito Melchor MD in OV> 10/16/25 1307 DD/ 1225 TD/TT: 10/16/25 1233 Supply Crib Attendant: Procedure Note Donotuseinterpreter, Image - 10/16/[address] [address] XRay Report Signed Patient: Sapna Herzog CMR#: [id number] : 1960cct:[id number] Age/Sex: 64 / FADM Date: 10/16/25 Loc: HO.HHCX Attending Dr: Yi Cleary MD Ordering Physician: Yi Thompson MD Date of Service: 10/16/25 Procedure(s): XR ribs LT min 3V w CXR1V Accession Number(s): [id number] cc: Yi Thompson MD Reason for Exam: PAIN EXAMINATION: XR RIBS, LEFT CLINICAL INFORMATION: Left anterior rib pain. COMPARISON: 11/20/2024 chest radiograph TECHNIQUE: PA chest, and 3 views of the left ribs were obtained. FINDINGS: Lungs are clear. No consolidation, pneumothorax, or pleural effusion. The cardiomediastinal silhouette and pulmonary vasculature are normal. Aortic mural calcification. Osseous structures are unremarkable. Ribs are intact. No fractures are identified. XR/XR ribs LT min 3V w CXR1V IMPRESSION: No acute findings in the thorax. No rib abnormality appreciated. Electronically signed by: Guanakito Melchor MD 10/16/2025 01:07 PM EST RP Dictated By: Guanakito Melchor MD Signed By: <Electronically signed by Guanakito Melchor MD in OV> 10/16/25 1307 DD/ 1225 TD/TT: 10/16/25 1233 Supply Crib Attendant: [facility]ria[facility]ila Cleary MD IMG XR PROCEDURES Final Result * Chlamydia/Trichomonas/Neisseria gonorrhoeae, PCR, Urine (10/06/2025 9:30 AM EST) CT PCR, Urine NOT DETECTED Not Detect. [facility] Comment:A not detected test result does not exclude the possibilityof infection because test results can be affected byimproper specimen collection, concurrent antibiotic therapy,or the number of organisms in the specimen which may bebelow the sensitivity of the test. As with many diagnostictests, results from the Xpert CT/NG assay should beinterpreted in conjunction with other laboratory andclinical data available to the clinician.The Xpert CT/NG assay should not be used for the evaluationof suspected sexual abuse or for other medico-legalindications. Additional testing is recommended in anycircumstance when false positive or false negative resultscould lead to adverse medical, social or psychologicalconsequences. NG PCR, Urine NOT DETECTED Not Detect. [facility] Comment:A not detected test result does not exclude the possibilityof infection because test results can be affected byimproper specimen collection, concurrent antibiotic therapy,or the number of organisms in the specimen which may bebelow the sensitivity of the test. As with many diagnostictests, results from the Xpert CT/NG assay should beinterpreted in conjunction with other laboratory andclinical data available to the clinician.The Xpert CT/NG assay should not be used for the evaluationof suspected sexual abuse or for other medico-legalindications. Additional testing is recommended in anycircumstance when false positive or false negative resultscould lead to adverse medical, social or psychologicalconsequences. Urine (Urine, Random) 10/06/2025 9:30 AM EST 10/06/2025 10:40 AM EST us Yi Cleary MD LAB URINE ORDERAB LES Final Result Performing Organization Address City/[facility]/ZIP Co de Phone Number [facility] [address] [place] [phone] * Albumin, Random Urine W/Creatinine (10/06/2025 9:30 AM EST) Creatinine, Urine 51.27 mg/dL [facility] Microalbumin Urine <5.0 mg/L [facility] Microalbum Creatinine Ratio Ur TNP <30 ug/mg cr [facility] Comment:Unable to calculate albumin/creatinine ratio due to lowmicroalbumin or creatinine result. Urine (Urine, Random) 10/06/2025 9:30 AM EST 10/06/2025 10:40 AM EST us Yi Cleary MD LAB URINE ORDERAB LES Final Result Performing Organization Address [facility]/ZIP Co de Phone Number [facility] [address] [place] [phone] * Syphilis Screen (10/06/2025 9:05 AM EST) Syphilis Screen Nonreactive Nonreactive [facility] Blood 10/06/2025 9:05 AM EST 10/06/2025 9:06 AM EST us Yi Cleary MD LAB BLOOD ORDERAB LES Final Result Performing Organization Address City/[facility]/ZIP Co de Phone Number [facility] [address] [place] [phone] * Vitamin D, 25-Hydroxy, Total, Immunoassay (10/06/2025 9:05 AM EST) Vitamin D 25-OH Total 31.8 >30 ng/mL [facility] Comment: Health Based Reference Values*< 20 ng/mL Rriuhsghq22-92 ng/mL Insufficient> 30 ng/mL Sufficient*Adriana FERNANDEZ. N Engl J Med. 2007;357:266-280There is no well-established upper level of normal vitamin Dlevels. Some laboratories use 50 ng/mL as an upper limit ofnormal. However, toxicity is patient-dependent and may occurat any level. Careful correlation with the patient'spresentation is necessary and, if there is concern forvitamin D toxicity, treatment should be consideredirrespective of the serum level.Care must be taken in interpreting Vitamin D results fromdifferent laboratories and methodologies. Published datademonstrated that results from patients undergoinghemodialysis may show a negative bias when tested withvarious automated 25-OH vitamin D assays when compared toLC-MS/MS.When testing samples from patients whose predominant form ofVitamin D is Vitamin D2, such as patients receiving VitaminD2 supplementation, results that are subtherapeutic shouldbe confirmed with another method such as LC-MS/MS. Blood Venous blood specimen / Unknown 10/06/2025 9:05 AM EST 10/06/2025 9:06 AM EST Yi Cleary MD LAB BLOOD ORDERAB LES Final Result [facility] [address] [place] [phone] * Vitamin B12 (Cobalamin) and Folate Panel, Serum (10/06/2025 9:05 AM EST) Vitamin B12 434 200 - 900 pg/mL [facility] Comment:NORMAL 200-900 PG/ML INDETERMINATE 160-199 PG/ML DEFICIENT < 160 PG/ML Folate 12.5 > or = 4.0 ng/mL [facility] Comment:Reference Values:> o r = 4.0 ng/mL< 4.0 ng/mL suggests folate deficiency Methotrexate, aminopterin and folinic acid(leucovorin) are chemotherapeutic agents whose molecularstructures are similar to folate; therefore, the Architectfolate assay cannot be used for patients using these drugs. Blood 10/06/2025 9:05 AM EST 10/06/2025 9:06 AM EST Yi Cleary MD LAB BLOOD ORDERAB LES Final Result [facility] [address], [place] [phone] * (ABNORMAL) CBC auto differential (10/06/2025 9:05 AM EST) White Blood Count 6.5 4.8 - 10.8 X10*3/uL [facility] Red Blood Count 4.49 4.20 - 5.50 X10*6/uL [facility] Hemoglobin 10.5(L) 12.0 - 16.0 g/dl [facility] Hematocrit 34.0(L) 37.0 - 47.0 % [facility] Mean Corpuscular Volume 75.7(L) 80.0 - 98.0 fL [facility] Mean Corpuscular Hemoglobin 23.4(L) 27.0 - 33.0 pg [facility] Mean Corpuscular HGB Conc 30.9(L) 31.0 - 35.0 g/dl [facility] Red Cell Distribution Width 14.3 11.0 - 16.0 % [facility] Platelet Count 334 160 - 400 X10*3/uL [facility] Mean Platelet Volume 10.0 9.4 - 12.3 fL [facility] Neutrophils Percent Auto 62.0 45 - 73 % [facility] Imm Gran Pct Auto 0.3 0.0 - 0.4 % [facility] Lymphocytes Percent Auto 26.9 20 - 40 % [facility] Monocytes Percent Auto 6.8 2 - 11 % [facility] Eosinophils Percent Auto 2.6 0 - 4 % [facility] Basophils Percent Auto 1.4 0 - 2 % [facility] NRBC Pct Auto 0.0 0.0 - 0.2 /100WBC [facility] Neutrophils Absolute Auto 4.0 2.0 - 8.3 x10*3/uL [facility] Imm Gran Abs Auto 0.02 0.00 - 0.03 X10*3/uL [facility] Lymphocytes Absolute Auto 1.8 1.2 - 4.9 X10*3/uL [facility] Monocytes Absolute Auto 0.4 0.1 - 1.2 X10*3/uL [facility] Eosinophils Absolute Auto 0.2 0.0 - 0.4 X10*3/uL [facility] Basophils Absolute Auto 0.1 0.0 - 0.2 X10*3/uL [facility] NRBC Abs Auto 0.000 0.0 - 0.012 X10*3/uL [facility] Blood Venous blood specimen / Unknown 10/06/2025 9:05 AM EST 10/06/2025 9:06 AM EST Yi Cleary MD LAB BLOOD ORDERAB LES Final Result Performing Organization Address City/[facility]/ZIP Co de Phone Number [facility] [address] [place] [phone] * Hepatitis C Antibody with Reflex to HCV, RNA, Quantitative, Real-Time PCR (10/06/2025 9:05 AM EST) [facility] Hepatitis C Antibody Nonreactive Nonreactive [facility] Comment:Antibodies to HCV no t detected; does not exclude early acuteHCV infection. Blood Venous blood specimen / Unknown 10/06/2025 9:05 AM EST 10/06/2025 9:06 AM EST Yi Cleary MD LAB BLOOD ORDERAB LES Final Result Performing Organization Address [facility] Co de Phone Number [facility] [address] [place] [phone] * (ABNORMAL) Iron And Total Iron Binding Capacity (10/06/2025 9:05 AM EST) [facility] Iron 28(L) 30 - 160 mcg/dL [facility] Total Iron Binding Capacity 385 228 - 428 mcg/dL [facility] Percent Iron Saturation 7(L) 15 - 50 % [facility] Unsaturated Iron Binding 357 ug/dL [facility] Blood Venous blood specimen / Unknown 10/06/2025 9:05 AM EST 10/06/2025 9:06 AM EST us Yi Cleary MD LAB BLOOD ORDERAB LES Final Result Performing Organization Address City/[facility]/ZIP Co de Phone Number [facility] [address] [place] [phone] * Hepatitis B surface antigen, EIA (10/06/2025 9:05 AM EST) Pathologist [facility] Hepatitis B Surface Ag Negative Negative [facility] Blood Venous blood specimen / Unknown 10/06/2025 9:05 AM EST 10/06/2025 9:06 AM EST us Yi Cleary MD LAB BLOOD ORDERAB LES Final Result Performing Organization Address City/[facility] Co de Phone Number [facility] [address] [place] [phone] * HIV-1/2 Antigen and Antibodies, Fourth Generation, with Reflexes (10/06/2025 9:05 AM EST) Pathologist [facility] HIV AB/AG Nonreactive Nonreactive [facility] Comment:HIV-1 p24 Ag and/or HIV-1/HIV-2 Ab not detected.A test result that is nonreactive does not exclude thepossibility of exposure to or infection with HIV-1 and/orHIV-2. Nonreactive results in this assay for individualswith prior exposure to HIV-1 and/or HIV-2 may be due toantigen and antibody levels that are below the limit ofdetection of this assay.The [employer] HIV Ag/Ab Combo assay result andsupplemental assay results should be interpreted inconjunction with the patient's clinical presentation,history and other laboratory results. If the results areinconsistent with clinical evidence, additional testing issuggested to confirm the result. Blood Venous blood specimen / Unknown 10/06/2025 9:05 AM EST 10/06/2025 9:06 AM EST us Yi Cleary MD LAB BLOOD ORDERAB LES Final Result Performing Organization Address City/[facility]/ZIP Co de Phone Number [facility] [address] [place] [phone] * (ABNORMAL) TSH (10/06/2025 9:05 AM EST) Thyroid Stimulating Hormone 5.81(H) 0.32 - 4.0 uIU/mL [facility] Comment:Note: A sustained TS H level above 2.5 uIU/mL may warrant further investigation. TSH 3rd Generation ([facility]) Blood Venous blood specimen / Unknown 10/06/2025 9:05 AM EST 10/06/2025 9:06 AM EST us Yi Cleary MD LAB BLOOD ORDERAB LES Final Result Performing Organization Address [facility] Co de Phone Number [facility] [address] [place] [phone] * T4, Free (10/06/2025 9:05 AM EST) Free T4 (Free Thyroxine) 1.09 0.71 - 1.85 ng/dL [facility] Blood Venous blood specimen / Unknown 10/06/2025 9:05 AM EST 10/06/2025 9:06 AM EST us Yi Cleary MD LAB BLOOD ORDERAB LES Final Result Performing Organization Address City/[facility]/ZIP Co de Phone Number [facility] [address] [place] [address] [phone] * (ABNORMAL) Hemoglobin A1c (10/06/2025 9:05 AM EST) Hemoglobin A1c 7.3(H) <6.0 % [facility] Comment:Hemoglobin A1C Refer ence Range Adults: 4.8 - 6.0 % Non diabetic: < 6.0 % Goal: < 7.0 %Additional Action Suggested: > 8.0 %Note: Hemoglobin A1c results are invalid for patients with abnormal amounts of HbF. Blood transfusions may impact the HbA1c concentration in the patient sample. Estimated Average Glucose 163 mg/dL [facility] Comment:eAG = Estimated ave rage glucose which is %A1C expressed asaverage glucose, using the formula of the T6D-FtdngxwBraeqdp Glucose study (ADAG), Diabetes Care, Vol.31,#8,Jun. 2007 Blood Venous blood specimen / Unknown 10/06/2025 9:05 AM EST 10/06/2025 9:06 AM EST us Yi Cleary MD LAB BLOOD ORDERAB LES Final Result [facility] [address] [place] [address] [phone] * (ABNORMAL) Ferritin (10/06/2025 9:05 AM EST) Ferritin 7(L) 10 - 250 ng/mL [facility] Blood Venous blood specimen / Unknown 10/06/2025 9:05 AM EST 10/06/2025 9:06 AM EST us Yi Cleary MD LAB BLOOD ORDERAB LES Final Result [facility] [address] [place] [phone] * (ABNORMAL) Lipid Panel, Standard (10/06/2025 9:05 AM EST) Triglycerides 169(H) <150 mg/dL [facility] Comment:Desirable Triglyceri de: less than 150 mg/dLBorderline High Triglyceride 150-199 mg/dLHigh Triglyceride: 200-499 mg/dLVery High Triglyceride: greater than or equal to 5OO mg/dL Cholesterol 227(H) <200 mg/dL [facility] Comment:Desirable Cholestero l: less than 200 mg/dLBorderline High Cholesterol: 200-239 mg/dLHigh Cholesterol: greater than 239 mg/dL LDL Cholesterol Calculated 150(H) <100 mg/dL [facility] Comment:Desirable LDL: less than 100 mg/dLNear Optimal/Above Optimal LDL: 110- 129 mg/dLBorderline High LDL: 130-159 mg/dLHigh LDL: 160-189 mg/dLVery High LDL: greater than or equal to 190 mg/dL HDL Cholesterol 44 >40 mg/dL [facility] Comment:Desirable HDL: great er than 40 mg/dL Note: This HDL assay may give artificially low results in patients with liver disease. Blood Venous blood specimen / Unknown 10/06/2025 9:05 AM EST 10/06/2025 9:06 AM EST us Yi Cleary MD LAB BLOOD ORDERAB LES Final Result [facility] [address] [place] [phone] * (ABNORMAL) Comprehensive Metabolic Panel (10/06/2025 9:05 AM EST) Sodium 140 135 - 145 mmol/L [facility] Potassium 4.3 3.3 - 5.1 mmol/L [facility] Chloride 105 96 - 108 mmol/L [facility] Carbon Dioxide 26 22 - 29 mmol/L [facility] Anion Gap 13 12 - 20 [facility] Urea Nitrogen (BUN) 18(H) 9 - 16 mg/dL [facility] Creatinine, Serum 0.69 0.5 - 1.4 mg/dL [facility] Estimated Glomerular Filt Rate >60 [facility] Comment:Chronic Kidney Disea se: Estimated GFR < 60 mL/min/1.07p9Tbgbiy Kidney Disease: Estimated GFR < 15 mL/min/1.73m2 Glucose 128(H) 60 - 115 mg/dL [facility] Calcium 9.2 8.4 - 10.2 mg/dL [facility] Bilirubin, Total 0.3 0.0 - 1.0 mg/dL [facility] Aspartate Amino Transferase 27 5 - 31 U/L [facility] Alanine Aminotransferase 26 0 - 31 U/L [facility] Total Protein 8.1(H) 6.5 - 8.0 g/dL [facility] Albumin Level 4.9 3.5 - 5.0 g/dL [facility] Alkaline Phosphatase 97 39 - 117 U/L [facility] Blood Venous blood specimen / Unknown 10/06/2025 9:05 AM EST 10/06/2025 9:06 AM EST us Yi Cleary MD LAB BLOOD ORDERAB LES Final Result [facility] [address] [place] [address] [phone] * Hematoxylin and Eosin Stain (08/25/2025 2:56 PM EDT) 08/25/2025 2:56 PM EDT 08/29/2025 9:35 AM EDT Juan Daniel [facility] - 08/30/2025 3:56 PM EDT ----- ------- Name: Sapna Herzog Age/Sex: 64/F : 1960 Unit#: [id number] Attend Dr: Elizabeth Jaime MD Re08/25/25 Status: [facility] Location: [facility] Disch: ----- ------- SPEC : [id number] RECD: 08/29/25 STATUS: LORENA ZHAO NUM: [id number] JOSÉ: 08/25/[address] [facility] [address]: Elizabeth Jaime MD ENTERED: 08/29/25 [...] microscopic examination, multiple pieces in cassette B. ([facility]) IHC S/NG Disclaimer NOTE: Unless otherwise stated, all tissue is formalin-fixed and paraffin-embedded. Some or all of the immunohistochemical tests reported herein may have been developed and their performance characteristics determined by [facility]. They have not been cleared or approved by the U.S. Food and Drug Administration (FDA). However, the FDA has determined that such clearance or approval is not necessary. This laboratory is certified under the Clinical Laboratory Improvement Amendments of 1988 (CLIA) as qualified CONTINUED ON NEXT PAGE ----- ------- Name: Sapna Herzog Age/Sex: 64/F : 1960 Unit#: [id number] Attend Dr: Elizabeth Jaime MD Re08/25/25 Status: [facility] Location: [facility] Disch: ----- ------- SPEC : [id number] RECD: 08/29/25 STATUS: LORENA PAVEL NUM: [id number] JOSÉ: 08/25/25-[address] [facility] [address]: Elizabeth Jaime MD ENTERED: 08/29/25 SP TYPE: Surgical OTHR DR: Yi Thompson MD ORDERED: HE Stain/6, Gross Micro L4/2 IHC S/NG Disclaimer (Continued) to perform high complexity clinical laboratory testing. Copies To: Yi Thompson MD [address] [phone] Elizabeth Jaime MD [facility] [address] [place] [phone] [email or web address] ----- ------- Signed (signature on file) Weston Swartz MD 08/30/25 1556 ----- ------- END OF REPORT Generic External Data Provider LAB BLOOD ORDERAB LES Final Result Performing Organization Address [facility]/ZIP Co de Phone Number [facility] [address] [place] [phone] * (ABNORMAL) Glucose, Whole Blood (08/25/2025 1:36 PM EDT) Only the most recent of2 resultswithin the time period is included. [facility] Glucose, Whole Blood 129(H) 60 - 115 mg/dL [facility] Comment:METER #: [id number] 08/25/2025 1:36 PM EDT 08/25/2025 1:40 PM EDT Generic External Data Provider LAB BLOOD ORDERAB LES Final Result Performing Organization Address [facility]/ZIP Co de Phone Number [facility] [address] [place] [phone] * CT Abdomen Pelvis w/o Contrast (08/02/2025 3:47 PM EDT) Anatomical Region Laterality Modality Body, Pelvis, Abdomen Computed T omography 08/02/2025 3:47 PM EDT Narrative 08/02/2025 4:27 PM EDT [address] [address] [address] Scan Report Signed Patient: Sapna Herzog MR#: M [id number] : 1960 Acct:[id number] Age/Sex: 64 / F ADM Date: 08/02/25 Loc: HO.CT Attending Dr: Cathleen Lomax BENCH LAY OUT TECHNICIAN Ordering Physician: Cathleen Lomax NP Date of Service: 08/02/25 Procedure(s): CT abdomen pelvis wo IV con Accession Number(s): [id number] cc: Yi Thompson MD; Cathleen Lomax NP Report Number: [id number]: Total DLP = 385.00 mGy-cm Reason for [...] 08/02/25 1624 DD/ 1547 TD/TT: 08/02/25 1607 Supply Crib Attendant: Procedure Note Donotuseinterpreter, Image - 08/02/[address] [place] [address] [address] Scan Report Signed Patient: Sapna Herzog CMR#: M [id number] : 9Acct:[id number] Age/Sex: 64 / FADM Date: 08/02/25 Loc: HO.CT Attending Dr: Cathleen Lomax BENCH LAY OUT TECHNICIAN Ordering Physician: Cathleen Lomax NP Date of Service: 08/02/25 Procedure(s): CT abdomen pelvis wo IV con Accession Number(s): [id number] cc: Yi Thompson MD; Cathleen Lomax BENCH LAY OUT TECHNICIAN Report Number: [id number]: Total DLP = 385.00 mGy-cm Reason for [...] 08/02/25 1624 DD/ 1547 TD/TT: 08/02/25 1607 Supply Crib Attendant: Cathleen Lomax WELDER/INSTALLER IMG CT PROCEDURES Edited Result - Final * Culture, Urine, Routine (07/25/2025 9:13 AM EDT) Urine Urine specimen from urinary conduit / Unknown 07/25/2025 9:13 AM EDT 07/25/2025 9:19 AM EDT Comment:Urine Cath Narrative [facility] - 07/27/2025 8:31 AM EDT Urine Culture No growth. Specimen Source: Urine Catheterized Generic External Data Provider LAB MICROBIOLOGY - GENERAL ORDERABLES Final Result Performing Organization Address City/State/[facility] Co de Phone Number [facility] [address] [place] [phone] * US Pelvis Transvaginal (07/21/2025 2:48 PM EDT) Anatomical Region Laterality Modality Pelvis Ultrasound 07/21/2025 2:48 PM EDT Narrative 07/21/2025 2:49 PM EDT [address] [address] Ultrasound Report Signed Patient: Sapna Herzog MR#: M [id number] : 1960 Acct:[id number] Age/Sex: 64 / F ADM Date: 07/21/25 Loc: HO.US Attending Dr: Domenic Chew MD Ordering Physician: Domenic Chew MD Date of Service: 07/21/25 Procedure(s): US pelvic and transvaginal Accession Number(s): [id number] cc: Yi Thompson MD; Domenic Chew MD [...] Allen MD Signed By: <Electronically signed by Tereaz Allen MD in OV> 07/21/25 1448 DD/ 47 TD/TT: 07/21/251447 Supply Crib Attendant: Procedure Note Donotuseinterpreter, Image - 07/21/2025 [place] [address] Ultrasound Report Signed Patient: Sapna Herzog CMR#: M [id number] : 1960cct:[id number] Age/Sex: 64 / FADM Date: 07/21/25 Loc: .US Attending Dr: Domenic Chew MD Ordering Physician: Domenic Chew MD Date of Service: 07/21/25 Procedure(s): US pelvic and transvaginal Accession Number(s): [id number] cc: Yi Thompson MD; Domenic Chew MD [...] by Tereza Allen MD in OV> 07/21/25 144 DD/ 47 TD/TT: 07/21/251447 Supply Crib Attendant: [facility] External Provider IMG US PROCEDURES Final Result * Fecal Globin By Immunochemistry (05/26/2025 12:00 AM EDT) Fecal Globin By Immunochemistry SEE NOTE [employer] [place] [employer] [facility] Comment: FECAL GLOBIN BY IMMUNOCHEMISTRY Micro Number: [id number] Test Status: Final Specimen Source: Insure (tm) [...] 05/26/2025 05/31/2025 10: 29 AM EDT Narrative [facility] - 05/31/2025 10:35 AM EDT FASTING: UNKNOWN Result [facility] Yi Cleary MD LAB BODY FLUIDS A ND STOOLS ORDERABLES Final Result [facility] [address], [place] [phone] [employer] [place] [employer] [address] [place] [phone] * BI US Breast Limited Left (02/07/2025 10:44 AM EDT) Anatomical Region Laterality Modality Breast Left Ultrasound 02/07/2025 10:4 4 AM EDT Narrative 02/07/2025 11:07 AM EDT [facility] [address] [place] [address] Ultrasound Report Signed Patient: Sapna Herzog MR#: M [id number] : 1960 Acct:[id number] Age/Sex: 64 / F ADM Date: 02/07/25 Loc: HO.MAMMO Attending Dr: Peter Tate [facility] Ordering Physician: PETER TATE CNM Date of Service: 02/07/25 Procedure(s): US breast LT limited mamm only Accession Number(s): [id number] cc: Yi Thompson MD; PETER TATE CNM [...] 02/07/25 1104 DD/ 1044 TD/TT: 02/07/25 1058 Supply Crib Attendant: Procedure Note Donotuseinterpreter, Image - 02/07/2025 [facility] [address] [place] [address] Ultrasound Report Signed Patient: Sapna Herzog [facility]#: M [id number] : 9Acct:[id number] Age/Sex: 64 / FADM Date: 02/07/25 Loc: HO.MAMMO Attending Dr: Peter Tate CNM Ordering Physician: PETER TATE CNM Date of Service: 02/07/25 Procedure(s): US breast LT limited mamm only Accession Number(s): [id number] cc: Yi Thompson MD; PETER TATE CNM [...] 02/07/25 1104 DD/ 1044 TD/TT: 02/07/25 1058 Supply Crib Attendant: us Peter Tate CNM IMG US PROCEDURES Edited Result - Final * Hm Colonoscopy (11/03/2024 6:36 PM EST) Historical Provider MD HEALTH MAINTENANCE Final Result * THINPREP PAP (10/25/2020 10:02 AM EST) [...] along with historic and current clinical information. Cnc Operator : SEE COMMENT [facility] Comment: [place], CT(ASCP) CT screening location: [place] [address] Interpretation/R esult: Negative for intraepithelial lesion or [...] Final Result [facility] [address] * HPV mRNA E6/E7 (10/25/2020 10:02 AM EST) HPV nRNA E6/E7 Not Detected Not Detected [facility] Comment: This test was performed using the APTIMA HPV Assay ([employer] This assay detects E6/E7 viral messenger RNA (mRNA) from 14 high-risk HPV types (16,18,31,33,35,39,45,51,52,56,58,59,66,68). The analytical performance characteristics of this assay have been determined by [employer]. The modifications have not been cleared or approved by the FDA. This assay has been validated pursuant to the CLIA regulations and is used for clinical purposes. 10/25/2020 10:0 2 AM EST us Peter Tate CNM LAB BLOOD ORDERABLES Cammy donny Result [facility] [place] [address], from Last 3 Months or Most Recently [...] neuropathy 10/16/2025 Patient has diabetic neuropathy 10/16/2025 Insurance [employer] Care Teams Trimming Inspector Relationship Specialty Start Date End Date Yi Thompson MD [address] [place] [phone] PCP - General Internal Medicine 08/20/23
== END 2025-10-16 11:50 | disposition home or self-care (01) ==
LOC: HO.HHCX 11:49
PROVIDERS: PCP Student in an Organized Health Care Education/Training Program; Visit Provider Student in an Organized Health Care Education/Training Program
DX: R07.89 Other chest pain (principal); G89.29 Other chronic pain
CPT/HCPCS: 71101

== ENCOUNTER → 2025-10-16 12:25 | Outpatient (BNV) | payer OTHER, SELFPAY | PROVIDERS: PCP Student in an Organized Health Care Education/Training Program; Visit Provider Radiology Diagnostic Radiology | DX: R07.89 Other chest pain (principal) | CPT/HCPCS: 71101 ==

== ENCOUNTER 2025-10-30 11:14 | Outpatient (REF) | payer OTHER, SELFPAY ==
[2025-10-30 13:50] LABS: Magnesium 1.7 mg/dL (1.6-2.6)
[2025-10-30 14:25] LABS: Folate 11.2 ng/mL (> or = 4.0); Vitamin B12 355 pg/mL (200-900)
== END 2025-10-30 11:15 | disposition home or self-care (01) ==
LOC: HO.LAB 11:14
PROVIDERS: PCP Student in an Organized Health Care Education/Training Program; Visit Provider Nurse Practitioner Family
DX: K59.01 Slow transit constipation (principal); K59.04 Chronic idiopathic constipation; K29.50 Unspecified chronic gastritis without bleeding; K21.9 Gastro-esophageal reflux disease without esophagitis; R14.0 Abdominal distension (gaseous); R19.7 Diarrhea, unspecified; E55.9 Vitamin D deficiency, unspecified; E11.22 Type 2 diabetes mellitus with diabetic chronic kidney disease; N18.9 Chronic kidney disease, unspecified; K86.89 Other specified diseases of pancreas; Z79.899 Other long term (current) drug therapy
CPT/HCPCS: 36415; 82306; 82607; 82746; 83735

== ENCOUNTER 2025-10-30 11:14 | Outpatient (AMB) | payer OTHER, SELFPAY ==
--- NOTE | 2025-10-30 11:15 | MHC.OFFVIS ---
Vital Signs 10/30/25 11:20 Height 5 ft 2 in Weight 154 lb BMI 28.2 BP 144/68 H Blood Pressure Location Rt brachial Position Sitting Pulse 104 H Pulse Source Pulse Oximeter Pulse Oximetry (%) 98 Oxygen Delivery Method Room Air Intake Visit Reasons: s/p colonoscopy Addison Intake Note: Est pt for mgmt of IBS + GERD. PCP requests EGD per ongoing anemia. Pt should be bringing all her meds to the visit. CC: C/O worsening constipation + abd pain. Pt states that she has been experiencing worsening pain since her colonoscopy. She denies any N+V, GERD, or BM irregularities. Confirms that these are chronic sx, but that they have become constant and much worse since her procedure. Personal Lines Account Executive Required: Yes Personal Lines Account Executive Services: Personal Lines Account Executive Present Personal Lines Account Executive Name: Edwige [id number] + [facility] Information Interpreted: clinical only Accompanied by: Self / Same As Patient Allergies Penicillins (PENICILLINS) Allergy (Intermediate, Verified 10/30/25 11:16) HIVES HPI HPI s/p colonoscopy Addison: Details: LAST VISIT: Constipation by delayed colonic transit Postprandial abdominal bloating Screen for colon cancer Plan Patient will stop taking Senokot and will start Dulcolax. Patient was encouraged to increase fluid intake and activity to promote better bowel motility. Patient had suboptimal prep last colonoscopy in will need to make sure that she will take Dulcolax daily specially before going for procedure. Stressed the importance of good bowel prep and clear liquid diet day before procedure. Message sent to Surgical schedulers to schedule procedure for patient. I will se patient after the colonoscopy. It is agreeable to current plan of care and verbalizes understanding of instructions. She was given the opportunity to ask questions and all questions answered. ? Thank you for allowing me to participate in her care New bisacodyl (Dulcolax (bisacodyl)) 10 mg (2 x 5 mg) PO BEDTIME 180 tabs 4RF polyethylene glycol 3350 (Miralax) As directed by gastroenterology department at [facility] 238 grams PO ONCE 238 grams 0RF Z12.11 Discontinued sennosides (senna) Discontinued Reason: Doctor's Order 17.2 mg (2 x 8.6 mg) PO BEDTIME 60 tabs 3RF COLONOSCOPY: Findings: Mucosa: Normal to cecum and terminal ileum. Protruding lesions: 1 sessile polyp of size 4 mm in transverse colon. Cold snare polypectomy was performed. The polyp was completely removed and retrieved. 1 sessile polyp of size 4 mm in descending colon. Cold snare polypectomy was performed. The polyp was completely removed and retrieved.. Large internal hemorrhoids without stigmata of recent bleeding. Excavated lesions: Mild to moderate diverticulosis of sigmoid colon. Impression: 1. Normal colon and terminal ileum mucosa 2. Total of 2 polyps removed 3. Diverticulosis 4. External and internal hemorrhoids Recommendations: - Follow path results. - Repeat colonoscopy in 7 years if polyps are adenomas. PATHOLOGY: Diagnosis A. Colon, descending, polypectomy: Fragments of tubular adenoma; negative for high-grade dysplasia or carcinoma. B. Colon, transverse, polypectomy: Colonic mucosa with mild surface hyperplastic changes and prominent lymphoid aggregate TODAY'S VISIT'S: Patient is here today for follow-up. Patient reports that since colonoscopy she has been reporting increased apply upper quadrant pain. Patient has had this pain for several years it is chronic in nature. Colonoscopy in was normal with is 1 tubular adenoma found. Patient should return for colonoscopy screening in 5 years. Patient had multiple different studies done to fine this source of pain in the RUQ. Patient denies any nausea or vomiting. Patient does report feeling very bloated and feels like she has inflammation in that spot. However patient does admit that today pain is in her whole abdomen and patient is feeling very bloated and gassy. Patient reports that she had pasta yesterday and soup with chicken. Patient reports that she is taking Dulcolax and she is moving her bowels. Patient not sure if she moves her bowels completely. Not every daily she will have a bowel movement. Patient previously took Linzess and had loose stools after taking it. Patient denies any melena, hematochezia. Patient reports that diabetes is under control. Metformin was increased to 1000 mg twice a day [facility] Medical History (Updated 10/30/25 @ 18:57 by Jacklyn De La Cruz [facility]) GERD (gastroesophageal reflux disease) Type 2 diabetes mellitus with polyneuropathy Bladder pain Headache Cognitive disorder Cervical dystonia Palpitations Non-cardiac chest pain Pelvic pain Leg pain Lower abdominal pain Gross hematuria Toe pain Right knee pain Effusion, right knee Dysuria Pelvic pain in female Hematuria Mass of spine Hematuria DM2 (diabetes mellitus, type 2) Nail deformity Paronychia Failure of spinal cord stimulator Thymoma Pulmonary nodules Thyroid cancer Blood in urine Constipation by delayed colonic transit Tubular adenoma of colon Gastritis Hypertension Dyslipidemia Post-surgical hypothyroidism Primary thyroid cancer Vitamin D deficiency Surgical History (Updated 10/30/25 @ 12:53 by TIFFANI aBcon) History of vascular surgery History of carpal tunnel release History of thymectomy History of back surgery Hx of colonoscopy Hx of thyroidectomy Hx of hernia repair Hx of section Hx of hysterectomy History of esophagogastroduodenoscopy (EGD) Family History Father Stroke Heart attack Mother Diabetes mellitus Family/Other Family history of cancer Sister Stomach cancer Family/Other Thyroid cancer Social History Household Members: Spouse, Family and Other Household Members Other:: grandson Housing: Apartment Are you a primary md do resident urgent care to a significant other at home: No Do you presently have visiting nurse or other home services: No Alcohol intake: former Comment: counts correct Patient Tobacco Use Status: Never used Tobacco Tobacco use type: Cigarette Second Hand Smoke Exposure: No service: No Sexual orientation: Straight/Heterosexual Gender identity: Female Female Reproductive History Menstrual Age of Menarche: 13 Review of Systems Const Denies weight gain and Denies weight loss ENT Reports no additional complaints, Denies dysphagia and Denies odynophagia Card Reports no additional complaints Resp Reports no additional complaints GI Denies abdominal pain, Denies belching, Denies melena, Reports bloating, Denies change in bowel habits, Reports constipation, Denies dysphagia, Denies excessive flatus, Denies dyspepsia, Denies heartburn, Denies diarrhea, Denies loose stools, Denies nausea, Denies odynophagia and Denies vomiting Reports no additional complaints Musc Reports no additional complaints Neuro Reports no additional complaints Psych Reports no additional complaints Endo Reports no additional complaints Physical Exam Vital Signs: Last Vital Signs Pulse 104 H 10/30/25 11:20 BP 144/68 H 10/30/25 11:20 Pulse Ox 98 10/30/25 11:20 Oxygen Delivery Method Room Air 10/30/25 11:20 BMI result Body Mass Index 28.2 Const General: healthy appearing, no acute distress and well developed Nutritional Appearance: well nourished Orientation/consciousness: patient oriented x3 Resp Effort & Inspection: normal respiratory effort, able to speak in complete sentences, no tracheal deviation and symmetric chest movement Auscultation: clear to auscultation bilaterally Cardio Rate: regular rate GI Inspection: Yes normal to inspection and No distended Palpation (GI): Soft to palpation, not firm, nontender and No hepatosplenomegaly present Auscultation: normal bowel sounds General: Yes no CVA tenderness Back/Spine/Pelvis Back: no CVA tenderness Skin General skin exam: elasticity normal, turgor normal and dry skin Neuro General: patient oriented x3 Psych Appearance: grossly normal Mental Status: mental status grossly normal Assessment & Plan Assessment & Plan (1) Gastritis: Code(s): K29.70 - Gastritis, unspecified, without bleeding Category: Medical Qualifiers: Gastritis type: unspecified gastritis Chronicity: chronic Gastritis bleeding: without bleeding Qualified Code(s): K29.50 - Unspecified chronic gastritis without bleeding (2) Constipation by delayed colonic transit: Code(s): K59.01 - Slow transit constipation Category: Medical (3) GERD (gastroesophageal reflux disease): Code(s): K21.9 - Gastro-esophageal reflux disease without esophagitis Category: Medical Qualifiers: Esophagitis presence: without esophagitis Qualified Code(s): K21.9 - Gastro-esophageal reflux disease without esophagitis (4) Postprandial abdominal bloating: Code(s): R14.0 - Abdominal distension (gaseous) Plan Patient will continue taking pantoprazole daily. Avoid dietary triggers in late night snacking. Patient is very gassy. Increase bowel sounds on exam. Patient is not eliminating her bowels completely will start her on Motegrity daily. Will start patient on Creon she can take it with meals to help with bloating. Will check vitamin B12, D, folate. Will check fecal calprotectin to rule out IBD. Patient will return to our office in 3-4 weeks for re-evaluation. She is agreeable to current plan of care and verbalizes understanding of instructions. She was given the opportunity to ask questions and all questions answered. Thank you for allowing me to participate in her care Orders: Orders Vitamin B12 and Folate Today R19.7 - Diarrhea, unspecified Vitamin D 25-OH (D2 and D3) Today E55.9 - Vitamin D deficiency, unspecified Calprotectin, Fecal Today R15.9 - Full incontinence of feces Magnesium Today N18.9 - Chronic kidney disease, unspecified Medications: New dtjeym-bnxhmezm-puhpobt (pork) 36,000-114,000- 180,000 unit (Creon) administer with meals and/or snacks 1 cap PO QID 120 caps 3RF K86.89 - Other specified diseases of pancreas prucalopride (Motegrity) 2 mg PO DAILY 30 tabs 2RF K59.04 - Chronic idiopathic constipation Coding Level of Care Code Est Pt Level 4 (86493) Add On Problem Visit Only Diagnoses Chronic gastritis without bleeding, unspecified gastritis type K29.50 Gastritis type: unspecified gastritis Chronicity: chronic Gastritis bleeding: without bleeding Constipation by delayed colonic transit K59.01 Gastroesophageal reflux disease without esophagitis K21.9 Esophagitis presence: without esophagitis Postprandial abdominal bloating R14.0 Time Spent (min) 40 Comment 25 minutes spent with patient and additional 15 minutes spent reviewing her records
[2025-10-30 11:20] VITALS: BP 144/68; PULSE 104; O2SAT 98; BMI 28.2
== END 2025-10-30 12:03 | disposition home or self-care (01) ==
LOC: HO.HGI 11:15
PROVIDERS: PCP Student in an Organized Health Care Education/Training Program; Visit Provider Nurse Practitioner Family
DX: K29.50 Unspecified chronic gastritis without bleeding (principal); K59.01 Slow transit constipation; K21.9 Gastro-esophageal reflux disease without esophagitis; R14.0 Abdominal distension (gaseous)
CPT/HCPCS: 99214

== ENCOUNTER 2025-10-31 07:51 | Outpatient (REF) | payer OTHER, SELFPAY ==
--- OUTSIDE RECORDS SUMMARY | 2025-10-31 07:58 | XMS_ITS | Encounter Summary ---
Author Organization [employer] Address [address] [place] [id number] Care Team Providers Care Staff Nurse Midwife Name Role Phone Juliet Bird Primary Care Provider Yi Jessica MD Primary Care Pro vider Reason for Visit * Reason Comments Med Refill Encounter Details Date Type Department Care Team (Late st Contact Info) Description 06/28/2023 Refill [facility] [address] [place] [address] Juliet Bird FNP Social History Tobacco Use [...] as of this encounter Plan of Treatment Not on file documented as of this encounter Visit Diagnoses Not on filedocumented in this encounter Care Teams Staff Nurse Midwife Relationship Specialty Start Date End Date Juliet Bird FNP PCP - General Family Medicine 01/22/23 08/19/23 Yi Thompson MD [address] [place] [address] PCP - General Internal Medicine 08/20/23 documented as of this encounter
--- OUTSIDE RECORDS SUMMARY | 2025-10-31 07:58 | XMS_ITS | Encounter Summary ---
Author Organization [employer] Address [address] [place] [address] Care Team Providers Care Tuyere Fitter Name Role Phone Yi Thompson MD Primary Care Pro vider Reason for Visit * Reason Onset Date Comments Nurse Triage 02/15/2024 Encounter Details Date Type Department Care Team ([facility] st Contact Info) Description 02/15/2024 Telephone [facility] [address] [place] [address] Yi Thompson MD [address] [place] [address] Nurse Triage Social History Tobacco Use Types [...] 02/15/2024 12:44 PM EDT Triage call with [place] [employer] [place] [employer] Operator [place] [id number] Pt reports headache frontal and back of [...] 400pm. Pt is advised to come to [facility] which is open till 8pm this evening. [...] Tingling sensation The caller accepted this outcome [place] speaker documented in this encounter Plan of Treatment Not on file documented as of this encounter Visit Diagnoses Not on filedocumented in this encounter Additional Health Concerns Assessment Noted Time PHQ-9 Depression Total Score: 1 01/13/20 24 12:16 PM EST documented as of this encounter Care Teams Tuyere Fitter Relationship Specialty Start Date End Date Yi Thompson MD [address] [place] [id number] PCP - General Internal Medicine 08/20/23 documented as of this encounter
--- OUTSIDE RECORDS SUMMARY | 2025-10-31 07:58 | XMS_ITS | Encounter Summary ---
Author Organization [employer] Address [address] [place] [id number] Care Team Providers Care Tile Designer Name Role Phone Yi Thompson MD Primary Care Pro vider Reason for Visit * Reason Comments Med Change Request Encounter Details Date Type Department Care Team ([facility] st Contact Info) Description 11/08/2023 Refill [facility] [address] [place] [address] [facility] [address] [place] [address] Viral upper respiratory illness Social History Tobacco [...] illness documented in this encounter Care Teams Tile Designer Relationship Specialty Start Date End Date Yi Thompson MD [address] [place] [id number] PCP - General Internal Medicine 08/20/23 documented as of this encounter
--- OUTSIDE RECORDS SUMMARY | 2025-10-31 07:58 | XMS_ITS | Clinical Summary ---
Author Organization [employer] Address [address] [place] [address] 7 [place] [address] Care Team Providers Care Fuels Engineer Name Role Phone Yi Thompson MD [...] 100 each 11 5 4:35 PM EST 04/06/20 25 Active Breo Ellipta 200-25 MCG/ACT [...] CHEW 180 tablet 2 06/29/20 25 Active Januvia 100 MG tabletIndicat ions:Type 2 diabetes mellitus without complication, without long-term current use of insulin (HCC) TAKE 1 TABLET BY MOUTH EVERY MORNING 90 tablet 1 5 4:35 PM EST 09/21/20 Active pantoprazole (ProtoNix) 40 MG EC tablet TAKE 1 TABLET BY MOUTH EVERY MORNING 30 tablet 2 5 4:35 PM EST 09/27/20 25 Active Bisacodyl EC 5 MG EC tablet take 2 tablets by mouth every day at bedtime 08/18/20 Active rizatriptan (Maxalt) 10 MG tablet 07/19/20 25 Active Estradiol (Estrace) 0.01 % cream Insert [...] 90 tablet 5 4:35 PM EST 10/10/20 026 Active lidocaine-claudette locaine (Emla) 2.5-2.5 % cream Apply topically if needed each day for mild pain. 5 g 5 4:35 PM EST 10/10/20 25 Active montelukast (Singulair) 10 MG tablet TAKE 1 TABLET BY MOUTH EVERYDAY AT NOON 30 tablet 2 10/25/20 25 Active estradiol (Estrace) 0.1 MG/GM vaginal cream Insert 1 g into the vagina Once per day. twice weekly 45 g 2 04/26/20 25 025 Discontinued(Re order (will not trigger notification to Pharmacy)) lidocaine-claudette locaine (Emla) 2.5-2.5 % cream Apply topically if needed each day for mild pain. 5 g 04/26/20 25 025 Discontinued(Re order (will not trigger notification to Pharmacy)) atorvastatin (Lipitor) 10 MG tablet Take 1 tablet (10 mg) by mouth Once per day. 90 tablet 05/26/20 25 025 Discontinued(Re order (will not trigger notification to Pharmacy)) montelukast (Singulair) 10 MG tablet TAKE 1 TABLET BY MOUTH EVERYDAY AT NOON 30 tablet 2 5 4:35 PM EST 07/24/20 25 025 Discontinued Active Problems Problem Noted [...] Consideration for PT once patient returns from [facility] in January. Dysphagia 01/13/2024 Microcytosis [...] 09/17/2023 Forgetfulness 04/15/2023 Overview (08/20/2023): Seen at [facility] on 07/15/2020 for right sided facial [...] for vascular referral once patient returns from [facility] in January. Irritable bowel syndrome [...] improve. 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 04/09/2023 04/15/2023 Thyroid cancer ([facility]) 01/04/2019 Multiple joint pain 09/03/2018 04/15/20 23 Calcaneal spur 08/05/2018 09/17/2023 Gastroesophageal reflux disease 05/01/2014 04/15/2023 Encounters Date Type Department Care Team Description 10/30/2025 Orders Only GENERIC EXTERNAL DATA DEPARTMENT Provider, Generic External Data 10/25/2025 Refill [facility] [address] [place] [address] Yi Thompson MD 10/16/2025 Orders Only [facility] [address] [place], [place] [phone] Yi Thompson MD Breast pain, left (Primary Dx) 10/10/2025 9:15 AM EST Office Visit [facility] [address] [place] [phone] Yi Thompson MD Rib pain (Primary Dx); Type 2 diabetes mellitus without complication, without long-term current use of insulin (HCC); Hypertension, unspecified type; Health care maintenance; Forgetfulness; Complex regional pain syndrome type 1 of both upper extremities; Costochondritis; Interstitial cystitis 10/10/2025 Travel 10/09/[address] [address] Yi Thompson MD chart prep 10/06/2025 Results Follow-Up [address] [address] Yi Thompson MD Albumin, Random Urine W/Creatinine, CBC auto differential, Chlamydia/Trichomona s/Neisseria gonorrhoeae, PCR, Urine, Additional followed-up results: 14 10/05/2025 Orders Only [facility] [address] [place] [phone] Yi Thompson MD Health care maintenance (Primary Dx) 10/05/[address] [address] Yi Thompson MD Lab Orders 10/02/2025 Patient Outreach [address] [address] Yi Thompson MD Pre-visit Planning (SDOH screening was completed on 04/06/2025) 09/27/2025 Refill [facility] [address] [place], [place] [phone] Yi Thompson MD 09/21/[address] [address] Yi Thompson MD Type 2 diabetes mellitus without complication, without long-term current use of insulin (HCC) 08/25/2025 Orders Only GENERIC EXTERNAL DATA DEPARTMENT Provider, Generic External Data 08/23/2025 3:30 PM EDT Immunization [facility] [address] [place] [address] Kaitlynn Faulkner, CAT Encounter for immunization 08/23/2025 Travel 08/16/2025 11:15 AM EDT Office Visit [address] [address] Tere Thompson, ZI Paronychia of finger of right hand (Primary Dx) 08/16/2025 Travel 08/15/2025 Telephone [facility] [address] [place] [address] Yi Thompson MD Nurse Triage from Last 3 Months Immunizations Immunization Administration Dates Next Due Hep B, adult 08/09/2014,04/04/2014,03/02/2014 Influenza injectable quadriv alent IIV4 with preservative 08/13/2018,09/02/2016 Influenza injectable quadriv alent preservative free 09/17/2023,10/14/2022,11/01/2021,09/03,09/23/2019 Influenza, High Dose Seasona l, Preservative Free 08/23/2025 Influenza, IIV3, injectable 08/08/2014, 3 Influenza, Split (incl. alexsandra fied surface antigen) 02/28/2014 Pneumococcal Conjugate PCV 20 12/02/2023 Pneumococcal Polysaccharide PPSV23 08/08/2014 RSV Bivalent 10/18/2025 Tdap 12/02/2023,08/30/2013 Zoster, Recombinant 08/16/2024,05/03/2024 Family History [...] 10/10/2025 9:22 AM EST Plan of Treatment Health Maintenance Due Date Last Done Comments CT Colonography 1960 FIT DNA/Cologuard 1960 Sigmoidoscopy 1960 Diabetes: Foot Exam 1968 COVID-19 Vaccine ( season) 2025 01/31/2022, 02/05/2021, [...] Additional history exists Lipid Panel 10/06/2026 10/06/2025, 0711/2024, 04/26/2025, Additional history exists Depression Screening 10/10/2026 [...] exists Hepatitis C Screening Completed 10/06/2025, 024 RSV Patients and Patients Aged 60 years or older Completed 10/18/2025 HIB Vaccines Aged Out No longer eligi [...] Care Plan Weekly blood pressure task No Purdence Jordan Patient has chronic kidney disease Care [...] Procedure Name Priority Date/Time Associated Diagnosis Comments VITAMIN B12/FOLATE, SERUM PANEL Routine 10/30/2025 12:31 PM EST MAGNESIUM Routine 10/30/2025 12:31 PM EST XR RIBS 3 VIEWS LEFT W CHEST [...] 3:47 PM EDT Right lower quadrant pain FECAL GLOBIN BY IMMUNOCHEMISTRY Routine 05/26/2025 12:00 AM EDT BI US BREAST LIMITED LEFT Urgent 02/07/2025 10:44 AM EDT HM COLONOSCOPY Routine 11/03/2024 6:36 PM EST HPV MRNA E6/E7 Routine 10/25/2020 10:02 AM EST THINPREP PAP Routine 10/25/2020 10:02 AM EST from Last 3 Months or Most Recently Relevant to Health Maintenance Results * Vitamin B12 (Cobalamin) and Folate Panel, Serum (10/30/2025 12:31 PM EST) Only the most recent of2 resultswithin the time period is included. Vitamin B12 355 200 - 900 pg/mL [facility] Comment:NORMAL 200-900 PG/ML INDETERMINATE 160-199 PG/ML DEFICIENT < 160 PG/ML Folate 11.2 > or = 4.0 ng/mL [facility] Comment:Reference Values:> o r = 4.0 ng/mL< 4.0 ng/mL suggests folate deficiency Methotrexate, aminopterin and folinic acid(leucovorin) are chemotherapeutic agents whose molecularstructures are similar to folate; therefore, the Architectfolate assay cannot be used for patients using these drugs. 10/30/2025 12:3 1 PM EST 10/30/2025 12:31 PM EST Generic External Data Provider LAB BLOOD ORDERAB LES Final Result Performing Organization Address [facility]/ZIP Co de Phone Number [facility] [address] [place] [phone] * Magnesium (10/30/2025 12:31 PM EST) Pathologist [facility] Magnesium 1.7 1.6 - 2.6 mg/dL [facility] 10/30/2025 12:3 1 PM EST 10/30/2025 12:31 PM EST Generic External Data Provider LAB BLOOD ORDERAB LES Final Result Performing Organization Address [facility] Co de Phone Number [facility] [address] [place] [phone] * XR Ribs 3 Views Left w/ Chest (10/16/2025 12:25 PM EST) Anatomical Region Laterality Modality Radiographic Criss ging 10/16/2025 12:2 5 PM EST Narrative 10/16/2025 1:10 PM EST [address] [address] XRay Report Signed Patient: Sapna Herzog MR#: [id number] : 1960 Acct:[id number] Age/Sex: 64 / F ADM Date: 10/16/25 Loc: HO.HHCX Attending Dr: Yi Cleary MD Ordering Physician: Yi Thompson MD Date of Service: 10/16/25 Procedure(s): XR ribs LT min 3V w CXR1V Accession Number(s): [id number] cc: Yi Thompson MD Reason for Exam: [...] Guanakito Melchor MD 10/16/2025 01:07 PM EST Dictated By: Guanakito Melchor MD Signed By: <Electronically signed by Guanakito Melchor MD in OV> 10/16/25 1307 DD/ 1225 TD/TT: 10/16/25 1233 Price Clerk: Procedure Note Donotuseinterpreter, Image - 10/16/[address] [address] XRay Report Signed Patient: Sapna Herzog CMR#: [id number] : 9Acct:[id number] Age/Sex: 64 / FADM Date: 10/16/25 Loc: HO.HHCX Attending Dr: Yi Cleary MD Ordering Physician: Yi Thompson MD Date of Service: 10/16/25 Procedure(s): XR ribs LT min 3V w CXR1V Accession Number(s): [id number] cc: Yi Thompson MD Reason for Exam: [...] 10/16/25 1307 DD/ 1225 TD/TT: 10/16/25 1233 Price Clerk: Yi Cleary MD IMG XR PROCEDURES Final Result * Chlamydia/Trichomonas/Neisseria gonorrhoeae, PCR, Urine (10/06/2025 9:30 AM EST) CT PCR, Urine NOT DETECTED Not Detect. [facility] Comment:A not detected test result [...] NG PCR, Urine NOT DETECTED Not Detect. [facility] Comment:A not detected test result [...] Result Performing Organization Address [facility] Co de Phone Number [facility] [address] [place] [phone] * Albumin, Random Urine W/Creatinine (10/06/2025 9:30 AM EST) Creatinine, Urine 51.27 mg/dL [facility] Microalbumin Urine <5.0 mg/L [facility] Microalbum Creatinine Ratio Ur TNP <30 ug/mg cr [facility] Comment:Unable to calculate albumin/creatinine ratio due to lowmicroalbumin or creatinine result. Urine (Urine, Random) 10/06/2025 9:30 AM EST 10/06/2025 10:40 AM EST us Yi Cleary MD LAB URINE ORDERAB LES Final Result Performing Organization Address [facility] Co de Phone Number [facility] [address] [place] [phone] * Syphilis Screen (10/06/2025 9:05 AM EST) Syphilis Screen Nonreactive Nonreactive [facility] Blood 10/06/2025 9:05 AM EST 10/06/2025 9:06 AM EST Yi Cleary MD LAB BLOOD ORDERAB LES Final Result Performing Organization Address [facility] Co de Phone Number [facility] [address] [place] [phone] * Vitamin D, 25-Hydroxy, Total, Immunoassay (10/06/2025 9:05 AM EST) Vitamin D 25-OH Total 31.8 >30 ng/mL [facility] Comment: Health Based Reference Values*< 20 ng/mL Wywatrjlm18-29 ng/mL Insufficient> 30 ng/mL Sufficient*Adriana FERNANDEZ. N [...] MD LAB BLOOD ORDERAB LES Final Result [facility] [address] [place] [phone] * (ABNORMAL) CBC auto differential (10/06/2025 9:05 AM EST) White Blood Count 6.5 4.8 - 10.8 X10*3/uL [facility] Red Blood Count 4.49 4.20 - 5.50 X10*6/uL [facility] Hemoglobin 10.5(L) 12.0 - 16.0 g/dl [facility] Hematocrit 34.0(L) 37.0 - 47.0 % [facility] Mean Corpuscular Volume 75.7(L) 80.0 - 98.0 fL [facility] Mean Corpuscular Hemoglobin 23.4(L) 27.0 - 33.0 pg [facility] Mean Corpuscular HGB Conc 30.9(L) 31.0 - 35.0 g/dl [facility] Red Cell Distribution Width 14.3 11.0 - 16.0 % [facility] Platelet Count 334 160 - 400 X10*3/uL [facility] Mean Platelet Volume 10.0 9.4 - 12.3 fL [facility] Neutrophils Percent Auto 62.0 45 - 73 % [facility] Imm Gran Pct Auto 0.3 0.0 - 0.4 % [facility] Lymphocytes Percent Auto 26.9 20 - 40 % [facility] Monocytes Percent Auto 6.8 2 - 11 % [facility] Eosinophils Percent Auto 2.6 0 - 4 % [facility] Basophils Percent Auto 1.4 0 - 2 % [facility] NRBC Pct Auto 0.0 0.0 - 0.2 /100WBC [facility] Neutrophils Absolute Auto 4.0 2.0 - 8.3 x10*3/uL [facility] Imm Gran Abs Auto 0.02 0.00 - 0.03 X10*3/uL [facility] Lymphocytes Absolute Auto 1.8 1.2 - 4.9 X10*3/uL [facility] Monocytes Absolute Auto 0.4 0.1 - 1.2 X10*3/uL [facility] Eosinophils Absolute Auto 0.2 0.0 - 0.4 X10*3/uL [facility] Basophils Absolute Auto 0.1 0.0 - 0.2 X10*3/uL [facility] NRBC Abs Auto 0.000 0.0 - 0.012 X10*3/uL [facility] Blood Venous blood specimen / Unknown 10/06/2025 9:05 AM EST 10/06/2025 9:06 AM EST Yi Cleary MD LAB BLOOD ORDERAB LES Final Result Performing Organization Address [facility]/ZIP Co de Phone Number [facility] [address] [place] [phone] * Hepatitis C Antibody with Reflex to HCV, RNA, Quantitative, Real-Time PCR (10/06/2025 9:05 AM EST) Pathologist [facility] Hepatitis C Antibody Nonreactive Nonreactive [facility] Comment:Antibodies to HCV no t detected; does not exclude early acuteHCV infection. Blood Venous blood specimen / Unknown 10/06/2025 9:05 AM EST 10/06/2025 9:06 AM EST us Yi Cleary MD LAB BLOOD ORDERAB LES Final Result Performing Organization Address [facility]/ZIP Co de Phone Number [facility] [address] [place] [phone] * (ABNORMAL) Iron And Total Iron Binding Capacity (10/06/2025 9:05 AM EST) Iron 28(L) 30 - 160 mcg/dL [facility] Total Iron Binding Capacity 385 228 - 428 mcg/dL [facility] Percent Iron Saturation 7(L) 15 - 50 % [facility] Unsaturated Iron Binding 357 ug/dL [facility] Blood Venous blood specimen / Unknown 10/06/2025 9:05 AM EST 10/06/2025 9:06 AM EST us Yi Cleary MD LAB BLOOD ORDERAB LES Final Result Performing Organization Address [facility]/ZIP Co de Phone Number [facility] [address] [place] [phone] * Hepatitis B surface antigen, EIA (10/06/2025 9:05 AM EST) Pathologist [facility] Hepatitis B Surface Ag Negative Negative [facility] Blood Venous blood specimen / Unknown 10/06/2025 9:05 AM EST 10/06/2025 9:06 AM EST Yi Cleary MD LAB BLOOD ORDERAB LES Final Result Performing Organization Address [facility] Co de Phone Number [facility] [address] [place] [phone] * HIV-1/2 Antigen and Antibodies, Fourth Generation, with Reflexes (10/06/2025 9:05 AM EST) Pathologist [facility] HIV AB/AG Nonreactive Nonreactive [facility] Comment:HIV-1 p24 Ag and/or HIV-1/HIV-2 Ab not detected.A test result that is nonreactive does not exclude thepossibility of exposure to or infection with HIV-1 and/orHIV-2. Nonreactive results in this assay for individualswith prior exposure to HIV-1 and/or HIV-2 may be due toantigen and antibody levels that are below the limit ofdetection of this assay.The [employer] HIV Ag/Ab Combo assay result andsupplemental assay [...] Result Performing Organization Address [facility]/ZIP Co de Phone Number [facility] [address] [place] [phone] * (ABNORMAL) TSH (10/06/2025 9:05 AM EST) Thyroid Stimulating Hormone 5.81(H) 0.32 - 4.0 uIU/mL [facility] Comment:Note: A sustained TS H level above 2.5 uIU/mL may warrant further investigation. TSH 3rd Generation ([employer]) Blood Venous blood specimen / Unknown 10/06/2025 9:05 AM EST 10/06/2025 9:06 AM EST Yi Cleary MD LAB BLOOD ORDERAB LES Final Result Performing Organization Address [facility] Co de Phone Number [facility] [address] [place] [phone] * T4, Free (10/06/2025 9:05 AM EST) Free T4 (Free Thyroxine) 1.09 0.71 - 1.85 ng/dL [facility] Blood Venous blood specimen / Unknown 10/06/2025 9:05 AM EST 10/06/2025 9:06 AM EST Yi Cleary MD LAB BLOOD ORDERAB LES Final Result Performing Organization Address [facility] Co de Phone Number [facility] [address] [place] [phone] * (ABNORMAL) Hemoglobin A1c (10/06/2025 9:05 AM EST) Hemoglobin A1c 7.3(H) <6.0 % [facility] Comment:Hemoglobin A1C Refer ence Range Adults: 4.8 - 6.0 % Non diabetic: < 6.0 % Goal: < 7.0 %Additional Action Suggested: > 8.0 %Note: Hemoglobin A1c results are invalid for patients with abnormal amounts of HbF. Blood transfusions may impact the HbA1c concentration in the patient sample. Estimated Average Glucose 163 mg/dL [facility] Comment:eAG = Estimated ave rage glucose which is %A1C expressed asaverage glucose, using the formula of the S7H-JlehbrqEfjutyc Glucose study (ADAG), Diabetes Care, Vol.31,#8,Jun. 2007 Blood Venous blood specimen / Unknown 10/06/2025 9:05 AM EST 10/06/2025 9:06 AM EST us Yi Cleary MD LAB BLOOD ORDERAB LES Final Result Performing Organization Address [facility]/ZIP Co de Phone Number [facility] [address] [place] [phone] * (ABNORMAL) Ferritin (10/06/2025 9:05 AM EST) Ferritin 7(L) 10 - 250 ng/mL [facility] Blood Venous blood specimen / Unknown 10/06/2025 9:05 AM EST 10/06/2025 9:06 AM EST us Yi Cleary MD LAB BLOOD ORDERAB LES Final Result Performing Organization Address [facility]/ZIP Co de Phone Number [facility] [address] [place] [phone] * (ABNORMAL) Lipid Panel, Standard (10/06/2025 9:05 AM EST) Triglycerides 169(H) <150 mg/dL [facility] Comment:Desirable Triglyceri de: less than 150 mg/dLBorderline High Triglyceride 150-199 mg/dLHigh Triglyceride: 200-499 mg/dLVery High Triglyceride: greater than or equal to 5OO mg/dL Cholesterol 227(H) <200 mg/dL [facility] Comment:Desirable Cholestero l: less than 200 mg/dLBorderline High Cholesterol: 200-239 mg/dLHigh Cholesterol: greater than 239 mg/dL LDL Cholesterol Calculated 150(H) <100 mg/dL [facility] Comment:Desirable LDL: less than 100 mg/dLNear Optimal/Above Optimal LDL: 110- 129 mg/dLBorderline High LDL: 130-159 mg/dLHigh LDL: 160-189 mg/dLVery High LDL: greater than or equal to 190 mg/dL HDL Cholesterol 44 >40 mg/dL [facility] Comment:Desirable HDL: great er than 40 mg/dL Note: This HDL assay may give artificially low results in patients with liver disease. Blood Venous blood specimen / Unknown 10/06/2025 9:05 AM EST 10/06/2025 9:06 AM EST us Yi Cleary MD LAB BLOOD ORDERAB LES Final Result [facility] [address] [place] [phone] * (ABNORMAL) Comprehensive Metabolic Panel (10/06/2025 9:05 AM EST) Sodium 140 135 - 145 mmol/L [facility] Potassium 4.3 3.3 - 5.1 mmol/L [facility] Chloride 105 96 - 108 mmol/L [facility] Carbon Dioxide 26 22 - 29 mmol/L [facility] Anion Gap 13 12 - 20 [facility] Urea Nitrogen (BUN) 18(H) 9 - 16 mg/dL [facility] Creatinine, Serum 0.69 0.5 - 1.4 mg/dL [facility] Estimated Glomerular Filt Rate >60 [facility] Comment:Chronic Kidney Disea se: Estimated GFR < 60 mL/min/1.12f7Adylob Kidney Disease: Estimated GFR < 15 mL/min/1.73m2 Glucose 128(H) 60 - 115 mg/dL [facility] Calcium 9.2 8.4 - 10.2 mg/dL [facility] Bilirubin, Total 0.3 0.0 - 1.0 mg/dL [facility] Aspartate Amino Transferase 27 5 - 31 U/L [facility] Alanine Aminotransferase 26 0 - 31 U/L [facility] Total Protein 8.1(H) 6.5 - 8.0 g/dL [facility] Albumin Level 4.9 3.5 - 5.0 g/dL [facility] Alkaline Phosphatase 97 39 - 117 U/L [facility] Blood Venous blood specimen / Unknown 10/06/2025 9:05 AM EST 10/06/2025 9:06 AM EST us Yi Cleary MD LAB BLOOD ORDERAB LES Final Result [facility] [address] [place] [phone] * Hematoxylin and Eosin Stain (08/25/2025 2:56 PM EDT) 08/25/2025 2:56 PM EDT 08/29/2025 9:35 AM EDT Juan Daniel [facility] - 08/30/2025 3:56 PM EDT ----- ------- Name: Sapna Herzog Age/Sex: 64/F : 1960 Unit#: [id number] Attend Dr: Elizabeth Jaime MD Re08/25/25 Status: [facility] Location: [facility] Disch: ----- ------- SPEC : [id number] RECD: 08/29/25 STATUS: LORENA ZHAO NUM: [id number] JOSÉ: 08/25/[address] [facility] [address]: Elizabeth Jaime MD ENTERED: 08/29/25 [...] microscopic examination, multiple pieces in cassette B. ([facility]) IHC S/NG Disclaimer NOTE: Unless otherwise stated, all tissue is formalin-fixed and paraffin-embedded. Some or all of the immunohistochemical tests reported herein may have been developed and their performance characteristics determined by [facility]. They have not been cleared or approved by the U.S. Food and Drug Administration (FDA). However, the FDA has determined that such clearance or approval is not necessary. This laboratory is certified under the Clinical Laboratory Improvement Amendments of 1988 (CLIA) as qualified CONTINUED ON NEXT PAGE ----- ------- Name: Sapna Herzog Age/Sex: 64/F : 1960 Unit#: [id number] Attend Dr: Elizabeth Jaime MD Re08/25/25 Status: [facility] Location: [facility] Disch: ----- ------- SPEC : [id number] RECD: 08/29/25 STATUS: LORENA ZHAO NUM: [id number] JOSÉ: 08/25/[address] [facility] [address]: Elizabeth Jaime MD ENTERED: 08/29/25 SP TYPE: Surgical OTHR DR: Yi Thompson MD ORDERED: HE Stain/6, Gross Micro L4/2 IHC S/NG Disclaimer (Continued) to perform high complexity clinical laboratory testing. Copies To: Yi Thompson MD [address] [address] Elizabeth Jaime MD [facility] [address] [place] [phone] [email or web address] ------- Signed (signature on file) Weston Swartz MD 08/30/25 1556 ----- ------- END OF REPORT Generic External Data Provider LAB BLOOD ORDERAB LES Final Result Performing Organization Address [facility] Co de Phone Number [facility] [address] [place] [phone] * (ABNORMAL) Glucose, Whole Blood (08/25/2025 1:36 PM EDT) [facility] Glucose, Whole Blood 129(H) 60 - 115 mg/dL [facility] Comment:METER #: [id number] 08/25/2025 1:36 PM EDT 08/25/2025 1:40 PM EDT Generic External Data Provider LAB BLOOD ORDERAB LES Final Result Performing Organization Address [facility] de Phone Number [facility] [address] [place] [phone] * CT Abdomen Pelvis w/o Contrast (08/02/2025 3:47 PM EDT) Anatomical Region Laterality Modality Body, Pelvis, Abdomen Computed T omography 08/02/2025 3:47 PM EDT Narrative 08/02/2025 4:27 PM EDT [address] [address] [address] Scan Report Signed Patient: Sapna Herzog MR#: [id number] : 1960 Acct:[id number] Age/Sex: 64 / F ADM Date: 08/02/25 Loc: HO.CT Attending Dr: Cathleen Lomax NP Ordering Physician: Cathleen Lomax NP Date of Service: 08/02/25 Procedure(s): CT abdomen pelvis wo IV con Accession Number(s): [id number] cc: Yi Thompson MD; Cathleen Lomax NP Report Number: [id number]: Total DLP = 385.00 mGy-cm Reason for [...] 08/02/25 1624 DD/ 1547 TD/TT: 08/02/25 1607 Price Clerk: Procedure Note Donotuseinterpreter, Image - 08/02/[address] [place] [address] [address] Scan Report Signed Patient: Sapna Herzog CMR#: M [id number] : 1960cct:[id number] Age/Sex: 64 / FADM Date: 08/02/25 Loc: HO.CT Attending Dr: Cathleen Lomax ADOPTION COUNSELOR Ordering Physician: Cathleen Lomax NP Date of Service: 08/02/25 Procedure(s): CT abdomen pelvis wo IV con Accession Number(s): [id number] cc: Yi Thompson MD; Cathleen Lomax ADOPTION COUNSELOR Report Number: [id number]: Total DLP = 385.00 mGy-cm Reason for [...] 08/02/25 1624 DD/ 1547 TD/TT: 08/02/25 1607 Price Clerk: us Alexxis Lomax BOTTOM FINISHER IMG CT PROCEDURES Edited Result - Final * Fecal Globin By Immunochemistry (05/26/2025 12:00 AM EDT) Fecal Globin By Immunochemistry SEE NOTE [employer] [facility] Comment: FECAL GLOBIN BY IMMUNOCHEMISTRY Micro Number: [id number] Test Status: Final Specimen Source: Insure (tm) [...] 05/26/2025 05/31/2025 10: 29 AM EDT Narrative [facility] - 05/31/2025 10:35 AM EDT FASTING: UNKNOWN Yi Cleary MD LAB BODY FLUIDS A ND STOOLS ORDERABLES Final Result [address], [place] [address] [employer] [place] [employer] [address] [place] [address] * BI US Breast Limited Left (02/07/2025 10:44 AM EDT) Anatomical Region Laterality Modality Breast Left Ultrasound 02/07/2025 10:4 4 AM EDT Narrative 02/07/2025 11:07 AM EDT [facility] [address] [place] [address] [place] [address] Ultrasound Report Signed Patient: Sapna Herzog MR#: [id number] : 1960 Acct:[id number] Age/Sex: 64 / F ADM Date: 02/07/25 Loc: HO.MAMMO Attending Dr: Peter Tate CNM Ordering Physician: PETER TATE CNM Date of Service: 02/07/25 Procedure(s): US breast LT limited mamm only Accession Number(s): [id number] cc: Yi Thompson MD; PETER TATE CNM [...] 02/07/25 1104 DD/ 1044 TD/TT: 02/07/25 1058 Price Clerk: Procedure Note Donotuseinterpreter, Image - 02/07/2025 [facility] [address] [place] [address] Dr. Saba, VALERI [address] Ultrasound Report Signed Patient: Sapna Herzog CMR#: M [id number] : 9Acct:[id number] Age/Sex: 64 / FADM Date: 02/07/25 Loc: HO.MAMMO Attending Dr: Peter Tate CNM Ordering Physician: PETER TATE CNM Date of Service: 02/07/25 Procedure(s): US breast LT limited mamm only Accession Number(s): [id number] cc: Yi Thompson MD; PETER TATE CNM [...] 02/07/25 1104 DD/ 1044 TD/TT: 02/07/25 1058 Price Clerk: Peter Tate CNM IMG US PROCEDURES Edited Result - Final * Hm Colonoscopy (11/03/2024 6:36 PM EST) Historical Provider HEALTH MAINTENANCE Final Result * THINPREP PAP [...] along with historic and current clinical information. Dimpling Machine Operator : SEE COMMENT [facility] Comment: QUIN[place], CT(ASCP) CT screening location: [place] [address] Interpretation/R esult: Negative for intraepithelial lesion or malignancy. [facility] LMP: NONE GIVEN [facility] Prev. BX: NONE GIVEN [facility] Prev. PAP: NONE GIVEN [facility] SOURCE: None given [facility] Statement Of Adequacy: SEE COMMENT [facility] Comment: Satisfactory for evaluation. Endocervical/transformation zone component present. 10/25/2020 10:0 2 AM EST Peter CADET LAB PATHOLOGY ORDERABLES Final Result [facility] [address] * HPV mRNA E6/E7 (10/25/2020 10:02 AM EST) HPV nRNA E6/E7 Not Detected Not Detected [facility] Comment: This test was performed using the APTIMA HPV Assay ([employer] This assay detects E6/E7 viral messenger RNA (mRNA) from 14 high-risk HPV types (16,18,31,33,35,39,45,51,52,56,58,59,66,68). The analytical performance characteristics of this assay have been determined by [employer]. The modifications have not been cleared or approved by the FDA. This assay has been validated pursuant to the CLIA regulations and is used for clinical purposes. 10/25/2020 10:0 2 AM EST us Peter Medina CNM LAB BLOOD ORDERABLES Cammy donny Result [facility] [address] [place] [address], from Last 3 Months or Most Recently [...] neuropathy 10/16/2025 Insurance [employer] Care Teams Fuels Engineer Relationship Specialty Start Date End Date Yi Thompson MD [address] [place] [address] PCP - General Internal Medicine 08/20/23
--- OUTSIDE RECORDS SUMMARY | 2025-10-31 07:58 | XMS_ITS | Encounter Summary ---
Author Organization [employer] Address [address] [place] [address] Care Team Providers Care Clinical Account Specialist Name Role Phone Yi Thompson MD Primary Care Pro vider Reason for Visit * Reason Comments Med Refill Encounter Details Date Type Department Care Team ([facility] st Contact Info) Description 10/25/2025 Refill [facility] [address] [place] [address] Yi Thompson MD [address] [place] [address] Social History Tobacco Use Types Packs/Day Years [...] Plan Weekly blood pressure task No Prudence Jodran Weekly blood pressure task Care Plan Weekly [...] Plan Patient has diabetic neuropathy No Yasmin Mlulen [place] Patient has diabetic neuropathy Care Plan [...] Time PHQ-9 Depression Total Score: 0 10/10/20 10:06 AM EST documented as of this encounter Care Teams Clinical Account Specialist Relationship Specialty Start Date End Date Yi Thompson MD [address] [place] [address] PCP - General Internal Medicine 08/20/23 documented as of this encounter
--- OUTSIDE RECORDS SUMMARY | 2025-10-31 07:58 | XMS_ITS | Encounter Summary ---
Author Organization [employer] Address [address] [place] [address] Care Team Providers Care Leaded Glass Installer Name Role Phone Yi Thompson MD Primary Care Pro vider Reason for Visit * Reason Comments Med Refill Encounter Details Date Type Department Care Team ([facility] st Contact Info) Description 05/20/2024 Refill [facility] [address] [place] [address] Name, MD Ronny [address] [place] [address] Social History Tobacco Use Types Packs/Day Years [...] documented as of this encounter Care Teams Leaded Glass Installer Relationship Specialty Start Date End Date Yi Thompson MD [address] [place] [address] PCP - General Internal Medicine 08/20/23 documented as of this encounter
--- OUTSIDE RECORDS SUMMARY | 2025-10-31 07:58 | XMS_ITS | Encounter Summary ---
Author Organization [employer] Address [address] [place] [address] Care Team Providers Care Early Years Teacher Name Role Phone Yi Thompson MD Primary Care Pro vider Reason for Visit * Reason Comments Med Change Request Encounter Details Date Type Department Care Team ([facility] Contact Info) Description 03/15/2024 Refill [facility] [address] [place] [address] Leticia Plunkett, ANP [address] [place] [address] Sinus pressure Social History Tobacco Use Types [...] documented as of this encounter Care Teams Early Years Teacher Relationship Specialty Start Date End Date Yi Thompson MD [address] [place] [address] PCP - General Internal Medicine 08/20/23 documented as of this encounter
--- OUTSIDE RECORDS SUMMARY | 2025-10-31 07:58 | XMS_ITS | Encounter Summary ---
Author Organization [employer] Address [address] [place] [address] Care Team Providers Care Critical Care Cns Name Role Phone Yi Thompson MD Primary Care Pro vider Reason for Visit * Reason Comments Med Refill Encounter Details Date Type Department Care Team ([facility] st Contact Info) Description 05/03/2024 Refill [facility]INE 230 [place] [address] Yi Thompson MD 230 [place] [address] Social History Tobacco Use Types Packs/Day Years [...] documented as of this encounter Care Teams Critical Care Cns Relationship Specialty Start Date End Date Yi Thompson MD [address] [place] [address] PCP - General Internal Medicine 08/20/23 documented as of this encounter
--- OUTSIDE RECORDS SUMMARY | 2025-10-31 07:58 | XMS_ITS | Encounter Summary ---
Author Organization [employer] Address [address] [place] [address] Care Team Providers Care Gas Check Pad Maker Name Role Phone Yi Thompson MD Primary Care Pro vider Reason for Visit * Reason Onset Date Comments Call Back Request 04/25/2025 Encounter Details Date Type Department Care Team ([facility] Contact Info) Description 04/25/2025 Telephone [facility] MEDICINE [address] [place] [address] Yi Thompson MD [address] [place] [address] Call Back Request Social History Tobacco Use [...] PM EDT Telephone call from Norah at [facility] Physical Therapy Department: Norah, the Labor CustodianJunior Account Executive, informed that a referral has been received for the patient. However, the physical therapy provider would like to speak directly with the referring provider--not nursing staff--regarding the referral. When calling [facility] Physical Therapy at [phone], ask for Norah. She will transfer the [...] as of this encounter Care Teams Gas Check Pad Maker Relationship Specialty Start Date End Date Yi Thompson MD [address] [place] [address] PCP - General Internal Medicine 08/20/23 documented as of this encounter
--- OUTSIDE RECORDS SUMMARY | 2025-10-31 07:58 | XMS_ITS | Data Portability ---
Author Organization [place] [facility], Allergy Address [address] [address] Assessment No assessment recorded. Plan of Treatment [...] No observ ation record ed. [facility] Radiology ([facility]) [address] [facility] [address], [place], [address], 07/12/2024 17:28:21 07/12/20 24 03/07/2024 CT, neck, soft tissu e, w/ contr ast No observ ation record ed. [email or web address] Not Available 06/17 14:31:41 Result Notes None [...] Available [employer] 4 03:27:19 Oropharyn geal dysphagia 23038450 Active 2023 CHANTEL MEYER MD [address] [place] [address], [place], [address] , [facility] 4 14:16:46 Acquired vocal cord palsy 118323029 Active 2023 CHANTEL MEYER MD [address] [place] [address], [place], [address] , [facility] 4 14:27:26 Problem Notes None recorded. Procedures Surgical History Date Name Laterality Status Provider Name and Address Organization Details Recorded Time 07/12/2024 FFL_RE completed CHANTEL MEYER MD [address] [place] [address],[place] [address], [place], [address], [facility] 07/12/2024 14:20:56 Imaging Results None recorded. Procedure Notes None recorded. Medical Equipment None Reported. Allergies Allergen ID Allergen Name Allergen Category Reaction Reaction Severity Criticality Documentation Date Start Date Code Code System Note Provider Name and Address Organization Details Recorded Time 76411 Product containin g penicilli n (product) medicatio n other Not available Not available 03/29/2024 67246 8001 SNOMED React ion: unkno wn, unspe cifie d;; Not Available [facility] 4 01:03:20 Medications Name Sig Start Date Stop Date Status Note LastModified by Organization Details LastModified Time medbox status USE DIRECTED active Not Available Not Available No t Available freestyle lite test strips strp active Not Available Not Available Not Available losartan 50 mg tablet active Medicati on ID: 17147 Br and Name: losartan Send Method: E-Prescr [...] 40 mg tablet active Medicati on ID: 74930 Br and Name: lovastat in Send Method: E-Prescr ibed Sub s Allowed: subs OK Medic ationGen ericName : lovastat in Not Available Not Available Not Available amlodipin e 5 mg tablet active Medicati on ID: 09386 Br and Name: amlodipi ne Send Method: [...] Not Available Not Available No t Available [facility] Thyroid 15 mg tablet active Medicati on ID: 58866 Br and Name: [place] Thyroid Send Method: E-Prescr ibed Sub s Allowed: subs OK Medic ationGen ericName : [place] Thyroid Not Available Not Available Not Available amitripty line 25 mg tablet active Medicati on ID: 14933 Br and Name: amitript yline Se nd Method: E-Prescr ibed Sub s Allowed: subs OK Medic ationGen ericName : amitript yline Not Available Not Available Not Available Protonix 40 mg intraveno us solution active Medicati on ID: 14934 Br and Name: Protonix Send Method: E-Prescr [...] 150 mg capsule active Medicati on ID: 54964 Br and Name: ranitidi ne HCl Send Method: E-Prescr ibed Sub s Allowed: subs OK Medic ationGen ericName : ranitidi ne HCl Not Available Not Available Not Available hydrochlo rothiazid e 25 mg tablet active Medicati on ID: 51736 Br and Name: hydrochl orothiaz ro Send [...] 17 gram/dose oral powder USE DIRECTED BY [facility] active Not Available Not Available No t [...] release 24hr (osmotic) active Medicati on ID: 47238 Br and Name: metformi n Send Method: [...] tablet,de layed release active Medicati on ID: 52653 Du ration Value: 30 Brand Name: omeprazo [...] Updated DateTime 07/12/2024 165.1 cm 27.3 kg/m2 69681.15 g [place] [facility] 07/12/2024 14:07:22 Social History None recorded. Functional Status None recorded. Mental Status None recorded. Family History Nothing Reported. Medical History No medical history recorded. Gynecological HistoryNo gynecological history recorded. Obstetrics History GPAL:G 0 P 0 0 0 0 Past Encounters Encounter ID Performer Location Encounter Start Date Encounter Closed Date Diagnosis/Indication Diagnosis SNOMED-CT Code Diagnosis ICD10 Code Diagnosis IMO Codes Diagnosis Note [id number] CHANTEL MEYER MD [facility] [address] [address] 07/12/2024 13:49:31 07/12/2024 16:53:30 Oropharyngeal dysphagia 77647989 R13.12 Likely due to esophageal dysmotilit y. VC paralysis is a factor but doesn't explain her dysphagia to solids. I recommend she discuss GI referral with her PCP. I would be glad to see her as needed. I personally reviewed her imaging reports. Acquired v ocal cord palsy 798256671 J38.00 Likely from initial surgery 14 years [...] Name 07/12/2024 1 [employer] [facility] [id number] Giuseppe Rodriguez [id number] Sapna Garcia 07/12/2024 1 [facility] [id number] Giuseppe Rodriguez [id number] Sapna Garcia Notes Date Note Type [...] surgery. She had a swallow study at [facility]. She feels like food gets stuck. Has occasional choking with liquids. She has never smoked. She denies throat pain and SOB. I reviewed an Upper GI series which showed esophageal dysmotility. I also reviewed her CT neck with 02/2024 which showed possible right vocal cord paralysis. contrast CHANTEL MEYER MD [address] [place] [address], [place], [address], [facility] - [facility] 07/12/2024 14:28:36 OBGyn Episode No OBEpisode recorded.
--- OUTSIDE RECORDS SUMMARY | 2025-10-31 07:58 | XMS_ITS | Encounter Summary ---
Author Organization [employer] Address [address] [place] [address] Care Team Providers Care Push Bench Operator Helper Name Role Phone Yi Thompson MD Primary Care Pro vider Reason for Visit * Reason Comments Med Refill Encounter Details Date Type Department Care Team ([facility] st Contact Info) Description 09/12/2024 Refill [facility] MED[facility]INE 230 [place] [address] Yi Thompson MD [address] [place] [address] Type 2 diabetes mellitus without complication, without long-term current use of insulin ([facility]) Social History Tobacco Use Types Packs/Day [...] the past 12 months, has t he [employer], gas, oil or water company threatened to [...] documented as of this encounter Care Teams Push Bench Operator Helper Relationship Specialty Start Date End Date Yi Thompson MD [address] [place] [address] PCP - General Internal Medicine 08/20/23 documented as of this encounter
--- OUTSIDE RECORDS SUMMARY | 2025-10-31 07:58 | XMS_ITS | Encounter Summary ---
Author Organization [employer] Address [address] [place] [address] Care Team Providers Care Vocational Rehabilitation Administrator Name Role Phone Yi Thompson MD Primary Care Pro vider Reason for Visit * Reason Comments Med Change Request Encounter Details Date Type Department Care Team ([facility] st Contact Info) Description 11/11/2023 Refill [facility] MEDICINE 230 [place] [address] [facility] [address] [place] [address] Viral upper respiratory illness Social History Tobacco [...] illness documented in this encounter Care Teams Vocational Rehabilitation Administrator Relationship Specialty Start Date End Date Yi Thompson MD [address] [place] [address] PCP - General Internal Medicine 08/20/23 documented as of this encounter
--- OUTSIDE RECORDS SUMMARY | 2025-10-31 07:58 | XMS_ITS | Encounter Summary ---
Author Organization [employer] Address [address] [place] [address] Care Team Providers Care Brick Or Block Maker Name Role Phone Yi Thompson MD Primary Care Pro vider Encounter Details Date Type Department Care Team ([facility] st Contact Info) Description 11/06/2024 Orders Only [facility] MEDICINE [address] [place] [address] Provider, MD Lux Social History Tobacco Use [...] documented as of this encounter Care Teams Brick Or Block Maker Relationship Specialty Start Date End Date Yi Thompson MD [address] [place] [address] PCP - General Internal Medicine 08/20/23 documented as of this encounter
--- OUTSIDE RECORDS SUMMARY | 2025-10-31 07:58 | XMS_ITS | Encounter Summary ---
Author Organization [employer] Address [address] [facility] [address] [address] Care Team Providers Care Metal Base Blocker Name Role Phone Yi Thompson MD Primary Care Pro vider Reason for Visit * Reason Comments Med Refill Encounter Details Date Type Department Care Team ([facility] st Contact Info) Description 09/15/2023 Refill [facility] MEDICINE [address] [place] [address] Juliet Bird, MARY ELLEN Primary hypertension; Type 2 diabetes mellitus without complication, without long-term current use of insulin ([facility]) Social History Tobacco Use Types Packs/Day [...] (HCC) documented in this encounter Care Teams Metal Base Blocker Relationship Specialty Start Date End Date Yi Thompson MD [address] [place] [address] PCP - General Internal Medicine 08/20/23 documented as of this encounter
--- OUTSIDE RECORDS SUMMARY | 2025-10-31 07:58 | XMS_ITS | Encounter Summary ---
Author Organization [employer] Address [address] [place] [address] Care Team Providers Care Medical Massage Therapist Name Role Phone Juliet Bird Primary Care Provider Yi Jessica MD Primary Care Pro vider Reason for Visit * Reason Comments Med Refill Encounter Details Date Type Department Care Team (Late st Contact Info) Description 01/28/2023 Refill [facility] MEDICINE [address] [place] [address] [facility] 230 [place], [place] [phone] Primary hypertension Social History Tobacco Use Types [...] hypertension documented in this encounter Care Teams Medical Massage Therapist Relationship Specialty Start Date End Date Juliet Bird FNP PCP - General Family Medicine 01/22/23 08/19/23 Yi Thompson MD [address] [place] [address] PCP - General Internal Medicine 08/20/23 documented as of this encounter
--- OUTSIDE RECORDS SUMMARY | 2025-10-31 07:58 | XMS_ITS | Encounter Summary ---
Author Organization [employer] Address [address] [place] [address] Care Team Providers Care Materials Scheduler Name Role Phone Yi Thompson MD Primary Care Pro vider Reason for Referral * Consultation (Routine) - Authorized Specialty Diagnoses / Procedures Referred By Contac t Referred To Contact Pharmacy Diagnoses Hypertension Maria Del Carmen Meza MD [address] [place] [address] Phone: tel: fax: Referral ID Status Reason Start Date Expiration Date Visits Requested Visits Authorized [id number] Authorized Continuity of Care 04/03/2025 04/03/2026 6 6 Encounter Details Date Type Department Care Team ([facility] st Contact Info) Description 03/30/2025 Orders Only [facility] [address] [place] [address] Maria Del Carmen Meza MD [address] [place], [place] [id number] Hypertension (Primary Dx) Social History Tobacco Use [...] AM EDT Narrative 04/12/2025 9:59 AM EDT [place] [address] Magnetic Resonance Report Signed Patient: Sapna Herzog MR#: [id number] : 1960 Acct:[id number] Age/Sex: 64 / F ADM Date: 04/12/25 Loc: HO.MRI Attending Dr: Pratik Estes MD Ordering Physician: Pratik Estes MD Date of Service: 04/12/25 Procedure(s): MR cervical spine wo con Accession Number(s): [id number] cc: Pratik Estes MD; Yi Thompson MD [...] 04/12/25 0956 DD/ 0821 TD/TT: 04/12/25 0837 Research Laboratory Manager: Procedure Note Donotuseinterpreter, Image - 04/12/2025 [place] [address] Magnetic Resonance Report Signed Patient: Sapna Herzog CMR#: [id number] : 9Acct:[id number] Age/Sex: 64 / FADM Date: 04/12/25 Loc: HO.MRI Attending Dr: Pratik Estes MD Ordering Physician: Pratik Estes MD Date of Service: 04/12/25 Procedure(s): MR cervical spine wo con Accession Number(s): [id number] cc: Pratik Estes MD; Yi Thompson MD [...] 04/12/25 0956 DD/ 0821 TD/TT: 04/12/25 0837 Research Laboratory Manager: [facility] External Provider IMG MRI PROCEDURES Final Result documented in this encounter Visit Diagnoses Diagnosis Hypertension- Primary Unspecified essential hypertension documented in this encounter Additional Health Concerns Assessment Noted Time PHQ-9 Depression Total Score: 1 01/13/20 24 12:16 PM EST documented as of this encounter Care Teams Materials Scheduler Relationship Specialty Start Date End Date Yi Thompson MD [address] [place] [id number] PCP - General Internal Medicine 08/20/23 documented as of this encounter
--- OUTSIDE RECORDS SUMMARY | 2025-10-31 07:58 | XMS_ITS | Encounter Summary ---
Author Organization [employer] Address [address] [place] [address] Care Team Providers Care Tractor Trailer Operator Name Role Phone Yi Thompson MD Primary Care Pro vider Reason for Visit * Reason Comments Med Refill Encounter Details Date Type Department Care Team ([facility] st Contact Info) Description 06/02/2024 Refill [facility] [address] [place] [address] Yi Thompson MD [address] [place] [address] Social History Tobacco Use Types Packs/Day Years [...] documented as of this encounter Care Teams Tractor Trailer Operator Relationship Specialty Start Date End Date Yi Thompson MD [address] [place] [id number] PCP - General Internal Medicine 08/20/23 documented as of this encounter
--- OUTSIDE RECORDS SUMMARY | 2025-10-31 07:58 | XMS_ITS | Encounter Summary ---
Author Organization [employer] Address [address] [place] [address] [address] [place] [address] Care Team Providers Care Fire Fighter [employer] Name Role Phone Yi Thompson MD Primary Care Pro vider Encounter Details Date Type Department Care Team (Late st Contact Info) Description 10/30/2025 Orders Only GENERIC EXTERNAL DATA [...] Care Plan Weekly blood pressure task No Awlida Terry Weekly blood pressure task Care Plan [...] Care Plan Weekly blood pressure task No iY Thompson MD Patient has chronic [...] Thompson MD documented as of this encounter Procedures Procedure Name Priority Date/Time Associated Diagnosis Comments VITAMIN B12/FOLATE, SERUM PANEL Routine 10/30/2025 12:31 PM EST MAGNESIUM Routine 10/30/2025 12:31 PM EST documented in this encounter Results * Vitamin B12 (Cobalamin) and Folate Panel, Serum (10/30/2025 12:31 PM EST) Vitamin B12 355 200 - 900 pg/mL [facility] Comment:NORMAL 200-900 PG/ML INDETERMINATE 160-199 PG/ML DEFICIENT < 160 PG/ML Folate 11.2 > or = 4.0 ng/mL [facility] Comment:Reference Values:> o r = 4.0 ng/mL< 4.0 ng/mL suggests folate deficiency Methotrexate, aminopterin and folinic acid(leucovorin) are chemotherapeutic agents whose molecularstructures are similar to folate; therefore, the Architectfolate assay cannot be used for patients using these drugs. 10/30/2025 12:3 1 PM EST 10/30/2025 12:31 PM EST us Generic External Data Provider LAB BLOOD ORDERAB LES Final Result [facility] [address] [place] [address] [phone] * Magnesium (10/30/2025 12:31 PM EST) Magnesium 1.7 1.6 - 2.6 mg/dL [facility] 10/30/2025 12:3 1 PM EST 10/30/2025 12:31 PM EST us Generic External Data Provider LAB BLOOD ORDERAB LES Final Result [facility] [address] [place] [phone] documented in this encounter Visit Diagnoses [...] documented as of this encounter Care Teams Fire Fighter [employer] Relationship Specialty Start Date End Date Yi Thompson MD [address] [place] [id number] PCP - General Internal Medicine 08/20/23 documented as of this encounter
--- OUTSIDE RECORDS SUMMARY | 2025-10-31 07:59 | XMS_ITS | Encounter Summary ---
Author Organization [employer] Address [address] [place] [address] Care Team Providers Care Acting Instructor Name Role Phone Juliet Bird Primary Care Provider Yi Jessica MD Primary Care Pro vider Reason for Visit * Reason Onset Date Comments triage 02/27/2023 Encounter Details Date Type Department Care Team (Late st Contact Info) Description 02/27/2023 Telephone [facility] [address] [place] [address] Juliet Bird FNP triage Social History Tobacco [...] encounter Miscellaneous Notes * Telephone Encounter - Mrecedes Samuel RN - 02/27/2023 4:58 PM EDT Triage call with [place] Call Or Contact Centre Operator ID [id number] Pt reports a couple of days of [...] now The caller accepted this outcome speaks danish documented in this encounter Plan of Treatment Not on file documented as of this encounter Visit Diagnoses Not on filedocumented in this encounter Care Teams Acting Instructor Relationship Specialty Start Date End Date Juliet Bird FNP PCP - General Family Medicine 01/22/23 08/19/23 Yi Thompson MD [address] [place] [id number] PCP - General Internal Medicine 08/20/23 documented as of this encounter
== END 2025-10-31 07:52 ==
LOC: HO.LNP 07:51
PROVIDERS: Visit Provider Nurse Practitioner Family
DX: R15.9 Full incontinence of feces (principal)
CPT/HCPCS: 83993

== ENCOUNTER 2025-11-02 10:43 | Outpatient (REF) | payer OTHER, SELFPAY ==
[2025-11-02 12:15] LABS: Free T4 (Free Thyroxine) 1.35 ng/dL (0.71-1.85); Thyroid Stimulating Hormone 4.99 uIU/mL (0.32-4.0)
--- OUTSIDE RECORDS SUMMARY | 2025-11-02 13:41 | XMS_ITS | Encounter Summary ---
Author Organization [employer] Address [address] [place] [address] 7 [place] [address] Care Team Providers Care Ncr Operator Name Role Phone Yi Thompson MD [...] Care Team (Late st Contact Info) Description 02/09/2026 1:00 PM EDT Office Visit [facility] [address] [place] [phone] Yi Thompson MD [address] [place] [address] documented as of this encounter Goals Goal [...] Plan Patient has diabetic neuropathy No Yi Tohmpson MD Patient has diabetic neuropathy Care Plan [...] Vitamin B12 355 200 - 900 pg/mL [facility] Comment:NORMAL 200-900 PG/ML INDETERMINATE 160-199 PG/ML DEFICIENT < 160 PG/ML Folate 11.2 > or = 4.0 ng/mL [facility] Comment:Reference Values:> o r [...] ORDERAB LES Final Result Performing Organization Address City/[facility]/ZIP Co de Phone Number [facility] [address] [place] [address] [phone] * Magnesium (10/30/2025 12:31 PM EST) Magnesium 1.7 1.6 - 2.6 mg/dL [facility] 10/30/2025 12:3 1 PM EST 10/30/2025 12:31 PM EST Generic External Data Provider LAB BLOOD ORDERAB LES Final Result Performing Organization Address [facility] de Phone Number [facility] [address] [place] [address] [phone] documented in this encounter Visit Diagnoses [...] documented as of this encounter Care Teams Ncr Operator Relationship Specialty Start Date End Date Yi Thompson MD [address] [place] [phone] PCP - General Internal Medicine 08/20/23 documented as of this encounter
--- OUTSIDE RECORDS SUMMARY | 2025-11-02 13:41 | XMS_ITS | Encounter Summary ---
Author Organization [employer] Address [address] [place] [id number] Care Team Providers Care Petal Shaper Hand Name Role Phone Yi Thompson MD Primary Care Pro vider Encounter Details Date Type Department Care Team ([facility] st Contact Info) Description 11/06/2024 Orders Only [facility] [address] [place] [address] Provider, MD Lux Social History Tobacco Use [...] Description 02/09/2026 1:00 PM EDT Office Visit [facility] [address] [place] [address] [phone] Yi Thompson MD [address] [place] [phone] documented as of this encounter Goals Goal [...] documented as of this encounter Care Teams Petal Shaper Hand Relationship Specialty Start Date End Date Yi Thompson MD [address] [place] [phone] PCP - General Internal Medicine 08/20/23 documented as of this encounter
--- OUTSIDE RECORDS SUMMARY | 2025-11-02 13:41 | XMS_ITS | Encounter Summary ---
Author Organization [employer] Address [address] [place] [address] Care Team Providers Care Director Utilization Management Name Role Phone Yi Thompson MD Primary Care Pro vider Reason for Referral * Consultation (Routine) - Authorized Specialty Diagnoses / Procedures Referred By Contac t Referred To Contact Pharmacy Diagnoses Hypertension Maria Del Carmen Meza MD [address] [place] [address] Phone: tel: fax: Referral ID Status Reason Start Date Expiration Date Visits Requested Visits Authorized [id number] Authorized Continuity of Care 04/03/2025 04/03/2026 6 6 Encounter Details Date Type Department Care Team ([facility] st Contact Info) Description 03/30/2025 Orders Only [facility] [address] [place] [address] Maria Del Carmen Meza MD [address] [place], [place] [phone] Hypertension (Primary Dx) Social History Tobacco Use [...] Description 02/09/2026 1:00 PM EDT Office Visit [facility] [address] [place] [address] Yi Thompson MD [address] [place] [address] Scheduled Referrals Name Type Priority Associated Diagnoses Orde r Schedule Referral to Pharmacy MTM Outpatient Referral Routine Hypertension Ordered: 04/03/2025 documented as of this encounter Goals Goal Patient Goal Type Associated Problems Recent Progress Patient-Stated? Author Blood Pressure < 140/90 Blood Pressure 108/68(2024 9:22 AM EST) No Jn Shah Hemoglobin A1c < 7 Result Component 7.3( 9:05 AM EST) No nJ Shah documented as of this encounter Procedures Procedure Name Priority Date/Time Associated Diagnosis Comments MR CERVICAL SPINE WO CONTRAST Routine 04/12/2025 8:21 AM EDT documented in this encounter Results * MR Cervical Spine w/o Contrast (04/12/2025 8:21 AM EDT) Anatomical Region Laterality Modality Spine, C-spine Magnetic Resonan ce 04/12/2025 8:21 AM EDT Narrative 04/12/2025 9:59 AM EDT [place] [address] Magnetic Resonance Report Signed Patient: Sapna Herzog MR#: [id number] : 1960 Acct:[id number] Age/Sex: 64 / F ADM Date: 04/12/25 Loc: HO.MRI Attending Dr: Pratik Estes MD Ordering Physician: Pratik Estes MD Date of Service: 04/12/25 Procedure(s): MR cervical spine wo con Accession Number(s): [id number] cc: Pratik Estes MD; Yi Thompson MD [...] 04/12/25 0956 DD/ 0821 TD/TT: 04/12/25 0837 Rackman: Procedure Note Donotuseinterpreter, Image - 04/12/[address] [address] Magnetic Resonance Report Signed Patient: Sapna Herzog CMR#: [id number] : 9Acct:[id number] Age/Sex: 64 / FADM Date: 04/12/25 Loc: HO.MRI Attending Dr: Pratik Estes MD Ordering Physician: Pratik Estes MD Date of Service: 04/12/25 Procedure(s): MR cervical spine wo con Accession Number(s): [id number] cc: Pratik Estes MD; Yi Thompson MD [...] OV> 04/12/2556 DD/ 0 TD/TT: 04/12/25 0837 Rackman: [facility] External Provider IMG MRI PROCEDURES Final Result documented in this encounter Visit Diagnoses Diagnosis Hypertension- Primary Unspecified essential hypertension documented in this encounter Additional Health Concerns Assessment Noted Time PHQ-9 Depression Total Score: 1 01/13/20 24 12:16 PM EST documented as of this encounter Care Teams Director Utilization Management Relationship Specialty Start Date End Date Yi Thompson MD [address] [place] [address] PCP - General Internal Medicine 08/20/23 documented as of this encounter
--- OUTSIDE RECORDS SUMMARY | 2025-11-02 13:41 | XMS_ITS | Data Portability ---
Author Organization [place] - [facility], Allergy Address [address] [address] Assessment No assessment recorded. Plan of Treatment [...] contr ast No observ ation record ed. [facility] Radiology ([facility]) [address] [facility] [address], [place], [address], 07/12/2024 17:28:21 07/12/20 24 03/07/2024 CT, neck, soft tissu e, w/ contr ast No observ ation record ed. [email or web address] Not Available 06/17 14:31:41 Result Notes None [...] Available [facility] 4 03:27:19 Oropharyn geal dysphagia [id number] Active 2023 CHANTEL MEYER MD [address] [address], [facility] [place], [address] , [facility] 4 14:16:46 Acquired vocal cord palsy [id number] Active 2023 CHANTEL MEYER MD [address] [place] [address], [place], [address] , [facility] 4 14:27:26 Problem Notes None recorded. Procedures Surgical History Date Name Laterality Status Provider Name and Address Organization Details Recorded Time 07/12/2024 FFL_RE completed CHANTEL MEYER MD [address] [place] [address],[place] [address], [place], [address], [facility] 07/12/2024 14:20:56 Imaging Results None recorded. Procedure Notes None recorded. Medical Equipment None Reported. Allergies Allergen ID Allergen Name Allergen Category Reaction Reaction Severity Criticality Documentation Date Start Date Code Code System Note Provider Name and Address Organization Details Recorded Time 61933 Product containin g penicilli n (product) medicatio n other Not available Not available 03/29/2024 27477 8001 SNOMED React ion: unkno wn, unspe cifie d;; Not Available [facility] 4 01:03:20 Medications Name Sig Start Date Stop Date Status Note LastModified by Organization Details LastModified Time medbox status USE DIRECTED active Not Available Not Available No t Available freestyle lite test strips strp active Not Available Not Available Not Available losartan 50 mg tablet active Medicati on ID: 38996 Br and Name: losartan Send Method: E-Prescr [...] 40 mg tablet active Medicati on ID: 41905 Br and Name: lovastat in Send Method: E-Prescr ibed Sub s Allowed: subs OK Medic ationGen ericName : lovastat in Not Available Not Available Not Available amlodipin e 5 mg tablet active Medicati on ID: 34347 Br and Name: amlodipi ne Send Method: [...] Not Available Not Available No t Available [place] Thyroid 15 mg tablet active Medicati on ID: 22853 Br and Name: [place] Thyroid Send Method: E-Prescr ibed Sub s Allowed: subs OK Medic ationGen ericName : [place] Thyroid Not Available Not Available Not Available amitripty line 25 mg tablet active Medicati on ID: 87526 Br and Name: amitript yline Se nd Method: E-Prescr ibed Sub s Allowed: subs OK Medic ationGen ericName : amitript yline Not Available Not Available Not Available Protonix 40 mg intraveno us solution active Medicati on ID: 27478 Br and Name: Protonix Send Method: E-Prescr [...] 150 mg capsule active Medicati on ID: 81072 Br and Name: ranitidi ne HCl Send Method: E-Prescr ibed Sub s Allowed: subs OK Medic ationGen ericName : ranitidi ne HCl Not Available Not Available Not Available hydrochlo rothiazid e 25 mg tablet active Medicati on ID: 66373 Br and Name: hydrochl orothiaz ro Send [...] 17 gram/dose oral powder USE DIRECTED BY [facility] active Not Available Not Available No [...] release 24hr (osmotic) active Medicati on ID: 42770 Br and Name: metformi n Send Method: [...] tablet,de layed release active Medicati on ID: 57732 Du ration Value: 30 Brand Name: omeprazo [...] Updated DateTime 07/12/2024 165.1 cm 27.3 kg/m2 73994.15 g [place] - [facility] 07/12/2024 14:07:22 Social History None recorded. Functional Status None recorded. Mental Status None recorded. Family History Nothing Reported. Medical History No medical history recorded. Gynecological HistoryNo gynecological history recorded. Obstetrics History GPAL:G 0 P 0 0 0 0 Past Encounters Encounter ID Performer Location Encounter Start Date Encounter Closed Date Diagnosis/Indication Diagnosis SNOMED-CT Code Diagnosis ICD10 Code Diagnosis IMO Codes Diagnosis Note [id number] CHANTEL MEYER MD [facility] [address] [address] 07/12/2024 13:49:31 07/12/2024 16:53:30 Oropharyngeal dysphagia 55606340 R13.12 Likely due to esophageal dysmotilit y. VC paralysis is a factor but doesn't explain her dysphagia to solids. I recommend she discuss GI referral with her PCP. I would be glad to see her as needed. I personally reviewed her imaging reports. Acquired v ocal cord palsy 166245678 J38.00 Likely from initial surgery 14 years [...] 1 [facility] [id number] Giuseppe Rodriguez [id number] Sapna Garcia 07/12/2024 1 [facility] [id number] Giuseppe Rodriguez [id number] Sapna Garcia Notes Date Note Type [...] surgery. She had a swallow study at [facility]. She feels like food gets stuck. Has occasional choking with liquids. She has never smoked. She denies throat pain and SOB. I reviewed an Upper GI series which showed esophageal dysmotility. I also reviewed her CT neck with 02/2024 which showed possible right vocal cord paralysis. contrast CHANTEL MEYER MD [address] [place] [address], [place], [address], [facility] - [facility] 07/12/2024 14:28:36 OBGyn Episode No OBEpisode recorded.
--- OUTSIDE RECORDS SUMMARY | 2025-11-02 13:42 | XMS_ITS | Encounter Summary ---
Author Organization [employer] Address [address] [place] [address] [facility] [place] [address] Care Team Providers Care Corporate Travel Coordinator Name Role Phone Yi Thompson MD Primary Care Pro vider Encounter Details Date Type Department Care Team (Late st Contact Info) Description 11/02/2025 Orders Only GENERIC EXTERNAL DATA DEPARTMENT Provider, [...] 02/09/2026 1:00 PM EDT Office Visit [facility] [address] [place] [address] Yi Thompson MD [address] [place] [address] documented as of this encounter Goals Goal [...] blood pressure task No iY Thompson MD Weekly blood pressure task Care [...] Procedure Name Priority Date/Time Associated Diagnosis Comments TSH Routine 11/02/2025 10:55 AM EST T4, FREE Routine 11/02/2025 10:55 AM EST documented in this encounter Results * (ABNORMAL) TSH (11/02/2025 10:55 AM EST) Thyroid Stimulating Hormone 4.99(H) 0.32 - 4.0 uIU/mL [facility] Comment:Note: A sustained TS H level above 2.5 uIU/mL may warrant further investigation. TSH 3rd Generation ([facility]) 11/02/2025 10:5 5 AM EST 11/02/2025 10:55 AM EST us Generic External Data Provider LAB BLOOD ORDERAB LES Final Result [facility] [address] [place] [address] [phone] * T4, Free (11/02/2025 10:55 AM EST) Free T4 (Free Thyroxine) 1.35 0.71 - 1.85 ng/dL [facility] 11/02/2025 10:5 5 AM EST 11/02/2025 10:55 AM EST us Generic External Data Provider LAB BLOOD ORDERAB LES Final Result [facility] [address] [place] [address] [phone] documented in this encounter Visit Diagnoses [...] documented as of this encounter Care Teams Corporate Travel Coordinator Relationship Specialty Start Date End Date Yi Thompson MD [address] [place] [address] PCP - General Internal Medicine 08/20/23 documented as of this encounter
--- OUTSIDE RECORDS SUMMARY | 2025-11-02 13:42 | XMS_ITS | Encounter Summary ---
Author Organization [employer] Address [address] [place] [address] Care Team Providers Care Commodity Specialist Name Role Phone Yi Thompson MD Primary Care Pro vider Reason for Visit * Reason Comments Med Refill Encounter Details Date Type Department Care Team ([facility] st Contact Info) Description 05/20/2024 Refill [facility] [address] [place] [address] Name, MD Ronny [address] [place] [address] Social History Tobacco Use Types Packs/Day Years [...] Description 02/09/2026 1:00 PM EDT Office Visit [facility] [address] [place] [address] Yi Thompson MD [address] [place] [address] documented as of this encounter Goals Goal Patient Goal Type Associated Problems Recent Progress Patient-Stated? Author Blood Pressure < 140/90 Blood Pressure 108/68(2024 9:22 AM EST) Jn ePtit Hemoglobin A1c < 7 Result Component 7.3( 9:05 AM EST) No Jn Shah documented as of this encounter Visit Diagnoses Not on filedocumented in this encounter Additional Health Concerns Assessment Noted Time PHQ-9 Depression Total Score: 1 01/13/20 24 12:16 PM EST documented as of this encounter Care Teams Commodity Specialist Relationship Specialty Start Date End Date Yi Thompson MD [address] [place] [address] PCP - General Internal Medicine 08/20/23 documented as of this encounter
--- OUTSIDE RECORDS SUMMARY | 2025-11-02 13:42 | XMS_ITS | Encounter Summary ---
Author Organization [employer] Address [address] [place] [address] Care Team Providers Care Price Checker Name Role Phone Juliet BirdP Primary Care Provider Yi Jessica MD Primary Care Pro vider Reason for Visit * Reason Comments Med Refill Encounter Details Date Type Department Care Team (Late Contact Info) Description 06/28/2023 Refill [facility] [address] [place] [address] Juliet Bird FNP Social History Tobacco Use [...] Department Care Team (Late Contact Info) Description 02/09/2026 1:00 PM EDT Office Visit [facility] [address] [place] [address] [phone] Yi Thompson MD [address] [place], [place] [phone] documented as of this encounter Visit Diagnoses Not on filedocumented in this encounter Care Teams Price Checker Relationship Specialty Start Date End Date Juliet Bird FNP PCP - General Family Medicine 01/22/23 08/19/23 Yi Thompson MD [address] [place] [address] PCP - General Internal Medicine 08/20/23 documented as of this encounter
--- OUTSIDE RECORDS SUMMARY | 2025-11-02 13:42 | XMS_ITS | Encounter Summary ---
Author Organization [employer] Address [address] [place] [address] Care Team Providers Care Dictaphone Typist Name Role Phone Yi Thompson MD Primary Care Pro vider Reason for Visit * Reason Onset Date Comments Call Back Request 04/25/2025 Encounter Details Date Type Department Care Team ([facility] Contact Info) Description 04/25/2025 Telephone [facility] [address] [place] [address] Yi Thompson MD [address] [place] [address] Call Back Request Social History Tobacco Use [...] PM EDT Telephone call from Norah at [facility] Physical Therapy Department: Norah, the Ambulance AssistantFence Repairman, informed that a referral has been received for the patient. However, the physical therapy provider would like to speak directly with the referring provider--not nursing staff--regarding the referral. When calling [facility] Physical Therapy at [phone], ask for Norah. She will transfer the call to the appropriate provider, as there is no direct line available. documented in this encounter Plan of Treatment Upcoming Encounters Date Type Department Care Team (Late st Contact Info) Description 02/09/2026 1:00 PM EDT Office Visit [facility] [address] [place] [address] Yi Thompson MD [address] [place] [address] documented as of this encounter [...] documented as of this encounter Care Teams Dictaphone Typist Relationship Specialty Start Date End Date Yi Thompson MD [address] [place] [address] PCP - General Internal Medicine 08/20/23 documented as of this encounter
--- OUTSIDE RECORDS SUMMARY | 2025-11-02 13:42 | XMS_ITS | Encounter Summary ---
Author Organization [employer] Address [address] [place] [address] Care Team Providers Care Cutch Cleaner Name Role Phone Juliet Bird Primary Care Provider Yi Jessica MD Primary Care Pro vider Reason for Visit * Reason Onset Date Comments triage 02/27/2023 Encounter Details Date Type Department Care Team (Late st Contact Info) Description 02/27/2023 Telephone [facility] [address] [place] [address] Juliet Bird FNP triage Social History Tobacco [...] 02/27/2023 4:58 PM EDT Triage call with [place] [id number] Pt reports a couple of days of [...] now The caller accepted this outcome speaks bulgarian documented in this encounter Plan of Treatment Upcoming Encounters Date Type Department Care Team (Late st Contact Info) Description 02/09/2026 1:00 PM EDT Office Visit [facility] [address] [place] [address] Yi Thompson MD [address] [place] [address] documented as of this encounter Visit Diagnoses Not on filedocumented in this encounter Care Teams Cutch Cleaner Relationship Specialty Start Date End Date Juliet Bird FNP PCP - General Family Medicine 01/22/23 08/19/23 Yi Thompson MD [address] [place] [address] PCP - General Internal Medicine 08/20/23 documented as of this encounter
--- OUTSIDE RECORDS SUMMARY | 2025-11-02 13:42 | XMS_ITS | Encounter Summary ---
Author Organization [facility] Address [address] [place] [address] Care Team Providers Care Wrapper Stemmer Operator Name Role Phone Yi Thompson MD Primary Care Pro vider Reason for Visit * Reason Comments Med Refill Encounter Details Date Type Department Care Team ([facility] st Contact Info) Description 06/02/2024 Refill [facility] [address] [place] [address] Yi Thompson MD [address] [place] [address] Social History Tobacco Use Types Packs/Day Years [...] Description 02/09/2026 1:00 PM EDT Office Visit [facility] [address] [place] [address] Yi Thompson MD [address] [place] [address] documented as of this encounter Goals Goal [...] documented as of this encounter Care Teams Wrapper Stemmer Operator Relationship Specialty Start Date End Date Yi Thompson MD [address] [place] [address] PCP - General Internal Medicine 08/20/23 documented as of this encounter
--- OUTSIDE RECORDS SUMMARY | 2025-11-02 13:42 | XMS_ITS | Encounter Summary ---
Author Organization [employer] Address [address] [place] [address] Care Team Providers Care Electrical And Instrumentation Manager Name Role Phone Yi Thompson MD Primary Care Pro vider Reason for Visit * Reason Onset Date Comments Nurse Triage 02/15/2024 Encounter Details Date Type Department Care Team ([facility] st Contact Info) Description 02/15/2024 Telephone [facility] [address] [place] [address] Yi Thompson MD [address] [place] [address] Nurse Triage Social History Tobacco Use Types [...] encounter Miscellaneous Notes * Telephone Encounter - [facility] Samuel RN - 02/15/2024 12:44 PM EDT Triage call with [place]viser ID [id number] Pt reports headache frontal and back of [...] 400pm. Pt is advised to come to [facility] which is open till 8pm this [...] Tingling sensation The caller accepted this outcome Comoran speaker documented in this encounter Plan of Treatment Upcoming Encounters Date Type Department Care Team (Late st Contact Info) Description 02/09/2026 1:00 PM EDT Office Visit [facility] [address] [place] [address] Yi Thompson MD [address] [place] [address] [phone] documented as of this encounter Visit Diagnoses Not on filedocumented in this encounter Additional Health Concerns Assessment Noted Time PHQ-9 Depression Total Score: 1 01/13/20 24 12:16 PM EST documented as of this encounter Care Teams Electrical And Instrumentation Manager Relationship Specialty Start Date End Date Yi Thompson MD [address] [place] [address] [phone] PCP - General Internal Medicine 08/20/23 documented as of this encounter
--- OUTSIDE RECORDS SUMMARY | 2025-11-02 13:42 | XMS_ITS | Encounter Summary ---
Author Organization [employer] Address [address] [place] [address] Care Team Providers Care Residential Field Manager Name Role Phone Yi Thompson MD Primary Care Pro vider Reason for Visit * Reason Comments Med Change Request Encounter Details Date Type Department Care Team ([facility] st Contact Info) Description 11/11/2023 Refill [facility] [address] [place] [address] [facility] [address] [place] [address] Viral upper respiratory illness Social History Tobacco [...] Description 02/09/2026 1:00 PM EDT Office Visit [facility] [address] [place] [address] Yi Thompson MD [address] [place] [address] documented as of this encounter Visit Diagnoses Diagnosis Viral upper respiratory illness documented in this encounter Care Teams Residential Field Manager Relationship Specialty Start Date End Date Yi Thompson MD [address] [place] [address] PCP - General Internal Medicine 08/20/23 documented as of this encounter
--- OUTSIDE RECORDS SUMMARY | 2025-11-02 13:42 | XMS_ITS | Encounter Summary ---
Author Organization [employer] Address [address] [place] [address] Care Team Providers Care Sap Bi Developer Name Role Phone Juliet Bird [facility] Primary Care Provider Yi Jessica MD Primary Care Pro vider Reason for Visit * Reason Comments Med Refill Encounter Details Date Type Department Care Team (Late Contact Info) Description 01/28/2023 Refill [facility] [address] [place], [place] [phone] [facility] [address] [place], [place] [phone] Primary hypertension Social History Tobacco Use Types [...] Office Visit [facility] [address] [place], [place] [phone] Yi Thompson MD [address] [place], [place] [phone] documented as of this encounter Visit Diagnoses Diagnosis Primary hypertension Unspecified essential hypertension documented in this encounter Care Teams Sap Bi Developer Relationship Specialty Start Date End Date Juliet Bird FNP PCP - General Family Medicine 01/22/23 08/19/23 Yi Thompson MD [address] [place] [address] PCP - General Internal Medicine 08/20/23 documented as of this encounter
--- OUTSIDE RECORDS SUMMARY | 2025-11-02 13:42 | XMS_ITS | Clinical Summary ---
Author Organization [employer] Address [address] [place] [address] 7 [place] [address] Care Team Providers Care Boom Operator Name Role Phone Yi Thompson MD [...] Forgetfulness 04/15/2023 Overview (08/20/2023): Seen at [facility] on 07/15/2020 for right sided facial [...] improve. 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 04/09/2023 04/15/2023 Thyroid cancer ([facility]) 01/04/2019 Multiple joint pain 09/03/2018 04/15/20 23 Calcaneal spur 08/05/2018 09/17/2023 Gastroesophageal reflux disease 05/01/2014 04/15/2023 Encounters Date Type Department Care Team Description 11/02/2025 Orders Only GENERIC EXTERNAL DATA DEPARTMENT Provider, Generic External Data 10/30/2025 Orders Only GENERIC EXTERNAL DATA DEPARTMENT Provider, Generic External Data 10/25/2025 Refill [facility] [address] [place] [address] Yi Thompson MD 10/16/2025 Orders Only [address] [address] Yi Thompson MD Breast pain, left (Primary Dx) 10/10/2025 9:15 AM EST Office Visit [address] [address] Yi Thompson MD Rib pain (Primary Dx); Type 2 diabetes mellitus without complication, without long-term current use of insulin (HCC); Hypertension, unspecified type; Health care maintenance; Forgetfulness; Complex regional pain syndrome type 1 of both upper extremities; Costochondritis; Interstitial cystitis 10/10/2025 Travel 10/09/[address] [address] Yi Thompson MD chart prep 10/06/2025 Results Follow-Up [address] [address] Yi Thompson MD Albumin, Random Urine W/Creatinine, CBC auto differential, Chlamydia/Trichomona s/Neisseria gonorrhoeae, PCR, Urine, Additional followed-up results: 14 10/05/2025 Orders Only [address] [address] Yi Thompson MD Health care maintenance (Primary Dx) 10/05/[address] [address] Yi Thompson MD Lab Orders 10/02/2025 Patient Outreach [address] [address] Yi Thompson MD Pre-visit Planning (SDOH screening was completed on 04/06/2025) 09/27/2025 Refill [facility] [address] [place] [phone] Yi Thompson MD 09/21/[address] [address] Yi Thompson MD Type 2 diabetes mellitus without complication, without long-term current use of insulin (HCC) 08/25/2025 Orders Only GENERIC EXTERNAL DATA DEPARTMENT Provider, Generic External Data 08/23/2025 3:30 PM EDT Immunization [facility] [address] [place] [address] Kaitlynn Faulkner RN Encounter for immunization 08/23/2025 Travel 08/16/2025 11:15 AM EDT Office Visit [facility] [address] [place] [address] Tere Thompson NP Paronychia of finger of right hand (Primary Dx) 08/16/2025 Travel 08/15/2025 Telephone [facility] [address] [place] [address] Yi Thompson MD Nurse Triage from Last [...] Upcoming Encounters Date Type Department Care Team ([facility] st Contact Info) Description 02/09/2026 1:00 PM EDT Office Visit [facility] [address] [place] [address] Yi Thompson MD [address] [place], [place] [phone] Health Maintenance Due Date Last Done Comments [...] task Care Plan Weekly blood pressure task Awilda Chaudhry Help patients manage their type 2 diabetes Care Plan Help patients manage their type 2 diabetes Awilda Chaudhry Patient has chronic kidney disease Care Plan Patient has chronic kidney disease Awilda Chaudhry Help patients manage their type 2 diabetes [...] T4, FREE Routine 11/02/2025 10:55 AM EST VITAMIN B12/FOLATE, SERUM PANEL Routine 10/30/2025 12:31 [...] WHOLE BLOOD Routine 08/25/2025 1:36 PM EDT FECAL GLOBIN BY IMMUNOCHEMISTRY Routine 05/26/2025 12:00 AM EDT BI US BREAST LIMITED LEFT Urgent 02/07/2025 10:44 AM EDT HM COLONOSCOPY Routine 11/03/2024 6:36 PM EST HPV MRNA E6/E7 Routine 10/25/2020 10:02 AM EST THINPREP PAP Routine 10/25/2020 10:02 AM EST from Last 3 Months or Most Recently Relevant to Health Maintenance Results * (ABNORMAL) TSH (11/02/2025 10:55 AM EST) Only the most recent of2 resultswithin the time period is included. Thyroid Stimulating Hormone 4.99(H) 0.32 - 4.0 uIU/mL [facility] Comment:Note: A sustained TS H level above 2.5 uIU/mL may warrant further investigation. TSH 3rd Generation ([facility]) 11/02/2025 10:5 5 AM EST 11/02/2025 10:55 AM EST Generic External Data Provider LAB BLOOD ORDERAB LES Final Result [facility] [address] [place] [phone] * T4, Free (11/02/2025 10:55 AM EST) Only the most recent of2 resultswithin the time period is included. Free T4 (Free Thyroxine) 1.35 0.71 - 1.85 ng/dL [facility] 11/02/2025 10:5 5 AM EST 11/02/2025 10:55 AM EST Generic External Data Provider LAB BLOOD ORDERAB LES Final Result Performing Organization Address [facility]/ZIP Co de Phone Number [facility] [address] [place] [phone] * Vitamin B12 (Cobalamin) and Folate Panel, Serum (10/30/2025 12:31 PM EST) Only the most recent of2 resultswithin the time period is included. Pathologist [facility] Vitamin B12 355 200 - 900 pg/mL [facility] Comment:NORMAL 200-900 PG/ML INDETERMINATE 160-199 PG/ML DEFICIENT < 160 PG/ML Folate 11.2 > or = 4.0 ng/mL [facility] Comment:Reference Values:> o r = 4.0 ng/mL< 4.0 ng/mL suggests folate deficiency Methotrexate, aminopterin and folinic acid(leucovorin) are chemotherapeutic agents whose molecularstructures are similar to folate; therefore, the Architectfolate assay cannot be used for patients using these drugs. 10/30/2025 12:3 1 PM EST 10/30/2025 12:31 PM EST Generic External Data Provider LAB BLOOD ORDERAB LES Final Result Performing Organization Address [facility] de Phone Number [facility] [address] [place] [phone] * Magnesium (10/30/2025 12:31 PM EST) Pathologist [facility] Magnesium 1.7 1.6 - 2.6 mg/dL [facility] 10/30/2025 12:3 1 PM EST 10/30/2025 12:31 PM EST Generic External Data Provider LAB BLOOD ORDERAB LES Final Result Performing Organization Address [facility] Co de Phone Number [facility] [address] [place] [phone] * XR Ribs 3 Views Left w/ Chest (10/16/2025 12:25 PM EST) Anatomical Region Laterality Modality Radiographic Criss ging 10/16/2025 12:2 5 PM EST Narrative 10/16/2025 1:10 PM EST [address] [address] XRay Report Signed Patient: Sapna Herzog MR#: [id number] : 1960 Acct:[id number] Age/Sex: 64 / F ADM Date: 10/16/25 Loc: HO.HHCX Attending Dr: Yi Cleary MD Ordering Physician: Yi Thompson MD Date of Service: 10/16/25 Procedure(s): XR ribs LT min 3V w CXR1V Accession Number(s): [id number] cc: Yi Thompson MD Reason for Exam: [...] 10/16/25 1307 DD/ 1225 TD/TT: 10/16/25 1233 Blue Leather Setter: Procedure Note Donotuseinterpreter, Image - 10/16/[address] [address] XRay Report Signed Patient: Sapna Herzog CMR#: [id number] : 1960cct:[id number] Age/Sex: 64 / FADM Date: 10/16/25 Loc: HO.HHCX Attending Dr: Yi Cleary MD Ordering Physician: Yi Thompson MD Date of Service: 10/16/25 Procedure(s): XR ribs LT min 3V w CXR1V Accession Number(s): [id number] cc: Yi Thompson MD Reason for Exam: [...] 10/16/25 1307 DD/ 1225 TD/TT: 10/16/25 1233 Blue Leather Setter: Yi Cleary MD IMG XR PROCEDURES Final Result * Chlamydia/Trichomonas/Neisseria gonorrhoeae, PCR, Urine (10/06/2025 9:30 AM EST) CT PCR, Urine NOT DETECTED Not Detect. [facility] Comment:A not detected test result [...] NG PCR, Urine NOT DETECTED Not Detect. [facility] Comment:A not detected test result [...] ORDERAB LES Final Result Performing Organization Address [facility] Co de Phone Number [facility] [address] [place] [phone] * Albumin, Random Urine W/Creatinine (10/06/2025 9:30 AM EST) Creatinine, Urine 51.27 mg/dL [facility] Microalbumin Urine <5.0 mg/L [facility] Microalbum Creatinine Ratio Ur TNP <30 ug/mg cr [facility] Comment:Unable to calculate albumin/creatinine ratio due to lowmicroalbumin or creatinine result. Urine (Urine, Random) 10/06/2025 9:30 AM EST 10/06/2025 10:40 AM EST Yi Cleary MD LAB URINE ORDERAB LES Final Result Performing Organization Address [facility] Co de Phone Number [facility] [address] [place] [phone] * Syphilis Screen (10/06/2025 9:05 AM EST) Syphilis Screen Nonreactive Nonreactive [facility] Blood 10/06/2025 9:05 AM EST 10/06/2025 9:06 AM EST Yi Cleary MD LAB BLOOD ORDERAB LES Final Result [facility] [address] [place] [phone] * Vitamin D, 25-Hydroxy, Total, Immunoassay (10/06/2025 9:05 AM EST) Vitamin D 25-OH Total 31.8 >30 ng/mL [facility] Comment: Health Based Reference Values*< 20 ng/mL Dgnizlfde63-23 ng/mL Insufficient> 30 ng/mL Sufficient*Adriana FERNANDEZ. N [...] MD LAB BLOOD ORDERAB LES Final Result [facility] [address] [place], [place] [phone] * (ABNORMAL) CBC auto differential (10/06/2025 9:05 AM EST) White Blood Count 6.5 4.8 - 10.8 X10*3/uL [facility] Red Blood Count 4.49 4.20 - 5.50 X10*6/uL [facility] Hemoglobin 10.5(L) 12.0 - 16.0 g/dl [facility] Hematocrit 34.0(L) 37.0 - 47.0 % [facility] Mean Corpuscular Volume 75.7(L) 80.0 - 98.0 fL [facility] Mean Corpuscular Hemoglobin 23.4(L) 27.0 - 33.0 pg [facility] Mean Corpuscular HGB Conc 30.9(L) 31.0 - 35.0 g/dl [facility] Red Cell Distribution Width 14.3 11.0 - 16.0 % [facility] Platelet Count 334 160 - 400 X10*3/uL [facility] Mean Platelet Volume 10.0 9.4 - 12.3 fL [facility] Neutrophils Percent Auto 62.0 45 - 73 % [facility] Imm Gran Pct Auto 0.3 0.0 - 0.4 % [facility] Lymphocytes Percent Auto 26.9 20 - 40 % [facility] Monocytes Percent Auto 6.8 2 - 11 % [facility] Eosinophils Percent Auto 2.6 0 - 4 % [facility] Basophils Percent Auto 1.4 0 - 2 % [facility] NRBC Pct Auto 0.0 0.0 - 0.2 /100WBC [facility] Neutrophils Absolute Auto 4.0 2.0 - 8.3 x10*3/uL [facility] Imm Gran Abs Auto 0.02 0.00 - 0.03 X10*3/uL [facility] Lymphocytes Absolute Auto 1.8 1.2 - 4.9 X10*3/uL [facility] Monocytes Absolute Auto 0.4 0.1 - 1.2 X10*3/uL [facility] Eosinophils Absolute Auto 0.2 0.0 - 0.4 X10*3/uL [facility] Basophils Absolute Auto 0.1 0.0 - 0.2 X10*3/uL [facility] NRBC Abs Auto 0.000 0.0 - 0.012 X10*3/uL [facility] Blood Venous blood specimen / Unknown 10/06/2025 9:05 AM EST 10/06/2025 9:06 AM EST Yi Cleary MD LAB BLOOD ORDERAB LES Final Result Performing Organization Address [facility] Co de Phone Number [facility] [address] [place] [phone] * Hepatitis C Antibody with Reflex to HCV, RNA, Quantitative, Real-Time PCR (10/06/2025 9:05 AM EST) Pathologist [facility] Hepatitis C Antibody Nonreactive Nonreactive [facility] Comment:Antibodies to HCV no t detected; does not exclude early acuteHCV infection. Blood Venous blood specimen / Unknown 10/06/2025 9:05 AM EST 10/06/2025 9:06 AM EST Yi Cleary MD LAB BLOOD ORDERAB LES Final Result Performing Organization Address [facility]/ZIP Co de Phone Number [facility] [address] [place] [phone] * (ABNORMAL) Iron And Total Iron Binding Capacity (10/06/2025 9:05 AM EST) Pathologist [facility] Iron 28(L) 30 - 160 mcg/dL [facility] Total Iron Binding Capacity 385 228 - 428 mcg/dL [facility] Percent Iron Saturation 7(L) 15 - 50 % [facility] Unsaturated Iron Binding 357 ug/dL [facility] Blood Venous blood specimen / Unknown 10/06/2025 9:05 AM EST 10/06/2025 9:06 AM EST Yi Cleary MD LAB BLOOD ORDERAB LES Final Result Performing Organization Address City/[facility]/ZIP Co de Phone Number [facility] [address] [place] [phone] * Hepatitis B surface antigen, EIA (10/06/2025 9:05 AM EST) Hepatitis B Surface Ag Negative Negative [facility] Blood Venous blood specimen / Unknown 10/06/2025 9:05 AM EST 10/06/2025 9:06 AM EST Yi Cleary MD LAB BLOOD ORDERAB LES Final Result Performing Organization Address [facility] Co de Phone Number [facility] [address] [place] [phone] * HIV-1/2 Antigen and Antibodies, Fourth Generation, with Reflexes (10/06/2025 9:05 AM EST) Pathologist [facility] HIV AB/AG Nonreactive Nonreactive [facility] Comment:HIV-1 p24 Ag and/or HIV-1/HIV-2 Ab not detected.A test result that is nonreactive does not exclude thepossibility of exposure to or infection with HIV-1 and/orHIV-2. Nonreactive results in this assay for individualswith prior exposure to HIV-1 and/or HIV-2 may be due toantigen and antibody levels that are below the limit ofdetection of this assay.The [employer] HIV Ag/Ab Combo assay result andsupplemental assay results should be interpreted inconjunction with the patient's clinical presentation,history and other laboratory results. If the results areinconsistent with clinical evidence, additional testing issuggested to confirm the result. Blood Venous blood specimen / Unknown 10/06/2025 9:05 AM EST 10/06/2025 9:06 AM EST us Yi Cleary MD LAB BLOOD ORDERAB LES Final Result Performing Organization Address [facility] Co de Phone Number [facility] [address] [place] [phone] * (ABNORMAL) Hemoglobin A1c (10/06/2025 9:05 AM EST) Hemoglobin A1c 7.3(H) <6.0 % [facility] Comment:Hemoglobin A1C Refer ence Range Adults: 4.8 - 6.0 % Non diabetic: < 6.0 % Goal: < 7.0 %Additional Action Suggested: > 8.0 %Note: Hemoglobin A1c results are invalid for patients with abnormal amounts of HbF. Blood transfusions may impact the HbA1c concentration in the patient sample. Estimated Average Glucose 163 mg/dL [facility] Comment:eAG = Estimated ave rage glucose which is %A1C expressed asaverage glucose, using the formula of the [id number]-[id number] Glucose study (ADAG), Diabetes Care, Vol.31,#8,2007 Blood Venous blood specimen / Unknown 10/06/2025 9:05 AM EST 10/06/2025 9:06 AM EST us Yi Cleary MD LAB BLOOD ORDERAB LES Final Result Performing Organization Address [facility] Co de Phone Number [facility] [address] [place] [phone] * (ABNORMAL) Ferritin (10/06/2025 9:05 AM EST) Ferritin 7(L) 10 - 250 ng/mL [facility] Blood Venous blood specimen / Unknown 10/06/2025 9:05 AM EST 10/06/2025 9:06 AM EST us Yi Cleary MD LAB BLOOD ORDERAB LES Final Result [facility] [address] [place] [phone] * (ABNORMAL) Lipid Panel, Standard (10/06/2025 9:05 AM EST) Triglycerides 169(H) <150 mg/dL [facility] Comment:Desirable Triglyceri de: less than 150 mg/dLBorderline High Triglyceride 150-199 mg/dLHigh Triglyceride: 200-499 mg/dLVery High Triglyceride: greater than or equal to 5OO mg/dL Cholesterol 227(H) <200 mg/dL [facility] Comment:Desirable Cholestero l: less than 200 mg/dLBorderline High Cholesterol: 200-239 mg/dLHigh Cholesterol: greater than 239 mg/dL LDL Cholesterol Calculated 150(H) <100 mg/dL [facility] Comment:Desirable LDL: less than 100 mg/dLNear Optimal/Above Optimal LDL: 110- 129 mg/dLBorderline High LDL: 130-159 mg/dLHigh LDL: 160-189 mg/dLVery High LDL: greater than or equal to 190 mg/dL HDL Cholesterol 44 >40 mg/dL [facility] Comment:Desirable HDL: great er than 40 mg/dL Note: This HDL assay may give artificially low results in patients with liver disease. Blood Venous blood specimen / Unknown 10/06/2025 9:05 AM EST 10/06/2025 9:06 AM EST Yi Cleary MD LAB BLOOD ORDERAB LES Final Result [facility] [address] [place] [phone] * (ABNORMAL) Comprehensive Metabolic Panel (10/06/2025 9:05 AM EST) Sodium 140 135 - 145 mmol/L [facility] Potassium 4.3 3.3 - 5.1 mmol/L [facility] Chloride 105 96 - 108 mmol/L [facility] Carbon Dioxide 26 22 - 29 mmol/L [facility] Anion Gap 13 12 - 20 [facility] Urea Nitrogen (BUN) 18(H) 9 - 16 mg/dL [facility] Creatinine, Serum 0.69 0.5 - 1.4 mg/dL [facility] Estimated Glomerular Filt Rate >60 [facility] Comment:Chronic Kidney Disea se: Estimated GFR < 60 mL/min/1.34m5Rkjomz Kidney Disease: Estimated GFR < 15 mL/min/1.73m2 Glucose 128(H) 60 - 115 mg/dL [facility] Calcium 9.2 8.4 - 10.2 mg/dL [facility] Bilirubin, Total 0.3 0.0 - 1.0 mg/dL [facility] Aspartate Amino Transferase 27 5 - 31 U/L [facility] Alanine Aminotransferase 26 0 - 31 U/L [facility] Total Protein 8.1(H) 6.5 - 8.0 g/dL [facility] Albumin Level 4.9 3.5 - 5.0 g/dL [facility] Alkaline Phosphatase 97 39 - 117 U/L [facility] Blood Venous blood specimen / Unknown 10/06/2025 9:05 AM EST 10/06/2025 9:06 AM EST us Yi Cleary MD LAB BLOOD ORDERAB LES Final Result [facility] [address] [place] [phone] * Hematoxylin and Eosin Stain (08/25/2025 2:56 PM EDT) 08/25/2025 2:56 PM EDT 08/29/2025 9:35 AM EDT Narrative [facility] - 08/30/2025 3:56 PM EDT ----- ------- Name: Sapna Herzog Age/Sex: 64/F : 1960 [facility]#: [id number] Unit#: [id number] Attend Dr: Elizabeth Jaime MD Re08/25/25 Status: [facility] Location: [facility] Disch: ----- ------- SPEC : [id number] RECD: 08/29/25 STATUS: LORENA ZHAO NUM: [id number] JOSÉ: 08/25/251456 [facility] DR: Elizabeth Jaime MD ENTERED: 08/29/25 SP [...] microscopic examination, multiple pieces in cassette B. ([facility]) IHC S/NG Disclaimer NOTE: Unless otherwise stated, all tissue is formalin-fixed and paraffin-embedded. Some or all of the immunohistochemical tests reported herein may have been developed and their performance characteristics determined by [facility]. They have not been cleared or approved by the U.S. Food and Drug Administration (FDA). However, the FDA has determined that such clearance or approval is not necessary. This laboratory is certified under the Clinical Laboratory Improvement Amendments of 1988 (CLIA) as qualified CONTINUED ON NEXT PAGE ----- ------- Name: Sapna Herzog Age/Sex: 64/F : 1960 Unit#: [id number] Attend Dr: Elizabeth Jaime MD Re08/25/25 Status: [facility] Location: [facility] Disch: ----- ------- SPEC : [id number] RECD: 08/29/25 STATUS: LORENA REKaren NUM: [id number] JOSÉ: 08/25/[address] [facility] [facility] [address]: Elizabeth Jaime MD ENTERED: 08/29/25 SP TYPE: Surgical OTHR DR: Yi Thompson MD ORDERED: HE Stain/6, Gross Micro L4/2 IHC S/NG Disclaimer (Continued) to perform high complexity clinical laboratory testing. Copies To: Yi Thompson MD [address] [place], [place] [id number] Elizabeth Jaime MD [facility] [address] [place] [address] [email or web address] ----- ------- Signed (signature on file) Weston Swartz MD 08/30/25 1556 ----- ------- END OF REPORT Generic External Data Provider LAB BLOOD ORDERAB LES Final Result Performing Organization Address [facility]/ZIP Co de Phone Number [facility] [address] [place] [phone] * (ABNORMAL) Glucose, Whole Blood (08/25/2025 1:36 PM EDT) [facility] Glucose, Whole Blood 129(H) 60 - 115 mg/dL [facility] Comment:METER #: [id number] 08/25/2025 1:36 PM EDT 08/25/2025 1:40 PM EDT Generic External Data Provider LAB BLOOD ORDERAB LES Final Result Performing Organization Address [facility]/ZIP Co de Phone Number [facility] [address] [place] [phone] * Fecal Globin By Immunochemistry (05/26/2025 12:00 AM EDT) Fecal Globin By Immunochemistry SEE NOTE [employer] [facility] Comment: FECAL GLOBIN BY IMMUNOCHEMISTRY Micro Number: [id number] Test Status: Final Specimen Source: Insure (tm) [...] FLUIDS A ND STOOLS ORDERABLES Final Result [address], [place] [address] [employer] [place] [facility] [address] [place] [phone] * BI US Breast Limited Left (02/07/2025 10:44 AM EDT) Anatomical Region Laterality Modality Breast Left Ultrasound 02/07/2025 10:4 4 AM EDT Narrative 02/07/2025 11:07 AM EDT [facility] [address] [place] [address] [place] [address] Ultrasound Report Signed Patient: Sapna Herzog MR#: M [id number] : 1960 Acct:[id number] Age/Sex: 64 / F ADM Date: 02/07/25 Loc: HO.MAMMO Attending Dr: Peter aTte CNM Ordering Physician: PETER TATE CNM Date of Service: 02/07/25 Procedure(s): US breast LT limited mamm only Accession Number(s): [id number] cc: Yi Thompson MD; PETER TATE CNM [...] 02/07/25 1104 DD/ 1044 TD/TT: 02/07/25 1058 Blue Leather Setter: Procedure Note Donotuseinterpreter, Image - 02/07/2025 [facility] [address] [place], [place] [address] Ultrasound Report Signed Patient: Sapna Herzog [facility]#: M [id number] : 9Acct:[id number] Age/Sex: 64 / FADM Date: 02/07/25 Loc: MAMMO Attending Dr: Peter Tate CNM Ordering Physician: PETER TATE CNM Date of Service: 02/07/25 Procedure(s): US breast LT limited mamm only Accession Number(s): [id number] cc: Yi Thompson MD; PETER TATE CNM [...] 02/07/25 1104 DD/ 1044 TD/TT: 02/07/25 1058 Blue Leather Setter: Peter Tate CNM IMG US PROCEDURES Edited [...] along with historic and current clinical information. Hydraulic Design Engineer : SEE COMMENT [facility] Comment: [place], CT(ASCP) CT screening location: [place] [address] Interpretation/R esult: Negative for intraepithelial lesion or malignancy. [facility] LMP: NONE GIVEN [facility] Prev. BX: NONE GIVEN [facility] Prev. PAP: NONE GIVEN [facility] SOURCE: None given [facility] Statement Of Adequacy: SEE COMMENT [facility] Comment: Satisfactory for evaluation. Endocervical/transformation zone component present. 10/25/2020 10:0 2 AM EST Peter CADET LAB PATHOLOGY ORDERABLES Final Result [facility] [address] * HPV mRNA E6/E7 (10/25/2020 10:02 AM EST) HPV nRNA E6/E7 Not Detected Not Detected [facility] Comment: This test was performed using the APTIMA HPV Assay ([employer] This assay detects E6/E7 viral messenger RNA (mRNA) from 14 high-risk HPV types (16,18,31,33,35,39,45,51,52,56,58,59,66,68). The analytical performance characteristics of this assay have been determined by [employer]. The modifications have not been cleared or approved by the FDA. This assay has been validated pursuant to the CLIA regulations and is used for clinical purposes. 10/25/2020 10:0 2 AM EST us Peter Lawrencevicente CNM LAB BLOOD ORDERABLES Cammy donny Result [facility] [facility] [address] from Last 3 Months or Most [...] neuropathy 10/16/2025 Insurance [employer] Care Teams Boom Operator Relationship Specialty Start Date End Date Yi Thompson MD [address] [place] [phone] PCP - General Internal Medicine 08/20/23
--- OUTSIDE RECORDS SUMMARY | 2025-11-02 13:42 | XMS_ITS | Encounter Summary ---
Author Organization [employer] Address [address] [place] [address] Care Team Providers Care Shoe Lining Fitter Name Role Phone Yi Thompson MD Primary Care Pro vider Reason for Visit * Reason Comments Med Change Request Encounter Details Date Type Department Care Team ([facility] Contact Info) Description 03/15/2024 Refill [facility] [address] [place] [address] Leticia Plunkett, ANP [address] [place] [address] Sinus pressure Social History Tobacco Use Types [...] Description 02/09/2026 1:00 PM EDT Office Visit [facility] [address] [place] [address] Yi Thompson MD [address] [place] [address] documented as of this encounter Goals Goal [...] documented as of this encounter Care Teams Shoe Lining Fitter Relationship Specialty Start Date End Date Yi Thompson MD [address] [place] [phone] PCP - General Internal Medicine 08/20/23 documented as of this encounter
--- OUTSIDE RECORDS SUMMARY | 2025-11-02 13:42 | XMS_ITS | Encounter Summary ---
Author Organization [employer] Address [address] [place] [address] Care Team Providers Care Dress Marker Name Role Phone Yi Thompson MD Primary Care Pro vider Reason for Visit * Reason Comments Med Refill Encounter Details Date Type Department Care Team ([facility] st Contact Info) Description 05/03/2024 Refill [facility] [address] [place] [address] Yi Thompson MD [address] [place] [address] Social History Tobacco Use Types Packs/Day Years [...] Description 02/09/2026 1:00 PM EDT Office Visit [facility] [address] [place] [phone] Yi Thompson MD [address] [place] [address] documented as of this encounter Goals Goal [...] documented as of this encounter Care Teams Dress Marker Relationship Specialty Start Date End Date Yi Thompson MD [address] [place] [phone] PCP - General Internal Medicine 08/20/23 documented as of this encounter
--- OUTSIDE RECORDS SUMMARY | 2025-11-02 13:42 | XMS_ITS | Encounter Summary ---
Author Organization [employer] Address [address] [place] [address] Care Team Providers Care Employee Development Specialist Name Role Phone Yi Thompson MD Primary Care Pro vider Reason for Visit * Reason Comments Med Refill Encounter Details Date Type Department Care Team ([facility] st Contact Info) Description 09/12/2024 Refill [facility] [address] [place] [address] Yi Thompson MD [address] [place] [address] Type 2 diabetes mellitus without complication, without long-term current use of insulin ([facility]) Social History Tobacco Use Types Packs/Day [...] the past 12 months, has t he [employer] gas, oil or water company threatened to [...] Description 02/09/2026 1:00 PM EDT Office Visit [facility] [address] [place] [address] Yi Thompson MD [address] [place] [phone] documented as of this encounter Goals Goal [...] documented as of this encounter Care Teams Employee Development Specialist Relationship Specialty Start Date End Date Yi Thompson MD [address] [place] [phone] PCP - General Internal Medicine 08/20/23 documented as of this encounter
--- OUTSIDE RECORDS SUMMARY | 2025-11-02 13:42 | XMS_ITS | Encounter Summary ---
Author Organization [employer] Address [address] [place] [address] Care Team Providers Care Traveling Operator Name Role Phone Yi Thompson MD Primary Care Pro vider Reason for Visit * Reason Comments Med Change Request Encounter Details Date Type Department Care Team ([facility] st Contact Info) Description 11/08/2023 Refill [facility] 230 [place] [address] [facility] [address] [place] [address] Viral upper respiratory illness Social History Tobacco [...] Description 02/09/2026 1:00 PM EDT Office Visit [facility] [address] [place] [address] [phone] Yi Thompson MD 230 [place] [address] documented as of this encounter Visit Diagnoses Diagnosis Viral upper respiratory illness documented in this encounter Care Teams Traveling Operator Relationship Specialty Start Date End Date iY Thompson MD [address] [place] [address] [phone] PCP - General Internal Medicine 08/20/23 documented as of this encounter
--- OUTSIDE RECORDS SUMMARY | 2025-11-02 13:42 | XMS_ITS | Encounter Summary ---
Author Organization [employer] Address [address] [facility] [place] [address] Care Team Providers Care Customer Resolution Specialist Name Role Phone Yi Thompson MD Primary Care Pro vider Reason for Visit * Reason Comments Med Refill Encounter Details Date Type Department Care Team ([facility] st Contact Info) Description 09/15/2023 Refill [facility] [address] [place] [address] Juliet Bird, MARY ELLEN Primary hypertension; Type 2 diabetes mellitus without complication, without long-term current use of insulin ([facility]) Social History Tobacco Use Types Packs/Day Years [...] 02/09/2026 1:00 PM EDT Office Visit [facility] [address] [place] [address] Yi Thompson MD 230 [place], [place] [phone] documented as of this encounter Visit Diagnoses Diagnosis Primary hypertension Unspecified essential hypertension Type 2 diabetes mellitus without complication, without long-term current use of insulin (HCC) documented in this encounter Care Teams Customer Resolution Specialist Relationship Specialty Start Date End Date Yi Thompson MD [address] [place] [address] [phone] PCP - General Internal Medicine 08/20/23 documented as of this encounter
[2025-11-03 18:33] LABS: Thyroglobulin 0.2 ng/mL; Thyroglobulin Antibodies <1 IU/mL (< or = 1)
== END 2025-11-02 10:44 | disposition home or self-care (01) ==
LOC: HO.LAB 10:43
PROVIDERS: PCP Student in an Organized Health Care Education/Training Program; Visit Provider Student in an Organized Health Care Education/Training Program
DX: C73 Malignant neoplasm of thyroid gland (principal); E89.0 Postprocedural hypothyroidism; Z01.84 Encounter for antibody response examination; Z79.899 Other long term (current) drug therapy
CPT/HCPCS: 36415; 84432; 84439; 84443; 86800

== ENCOUNTER 2025-11-02 11:36 | Outpatient (AMB) | payer OTHER, SELFPAY ==
--- OUTSIDE RECORDS SUMMARY | 2025-10-30 23:59 | XMS_ITS | Continuity of Care Document ---
Author Organization [facility] Address [address] [place] [id number] Care Team Providers Care Mortgage Processing Clerk Name Role Phone Saniya MELO, Bonnie Milner Primary Care Physician Encounter [facility] Date(s): 10/23/25 - 10/30/25 [facility] [address] [place] [id number] Encounter Diagnosis Status post phlebectomy(Discharge Diagnosis) - 10/26/25 Attending Physician: Liban PINON, Awilda Sanders Admitting Physician: Liabn PINON, Awilda Sanders Referring Physician: Bonnie Kothari MD Encounter Type: Office Visit Allergies, Adverse Reactions, Alerts Substance Criticality Severity Reaction Reaction Severity Status penicillins 1 swelling Active 1pt received dose of cefazolin pre-op 07/04. Per RN Reba, pt tolerated without issue Functional Status Functional Status Assessment Assessment Assessment Component Result Effecti ve Date Disability status [CUBS] I'm Thriving - no identified disability 10/23/25 Because of a physica l, mental, or emotional condition, do you have serious difficulty concentrating, remembering, or making decisions Choose Not to Answer 10/23/25 Difficulty Reading O r Writing Choose Not to Answer 10/23/25 Do you have serious difficulty walking or climbing stairs Choose Not to Answer 10/23/25 Because of a physica l, mental, or emotional condition, do you have difficulty doing errands alone such as visiting a physician's office or shopping Choose Not to Answer 10/23/25 Are you blind, or do you have serious difficulty seeing, even when wearing glasses Choose Not to Answer 10/23/25 Difficulty communica ting in usual language Choose Not to Answer 10/23/25 Do you have difficul ty dressing or bathing Choose Not to Answer 10/23/25 Do you need any anamaria tional assistance or accommodations during your visit Choose Not to Answer 10/23/25 Are you deaf, or do you have serious difficulty hearing Choose Not to Answer 10/23/25 Medications amitriptyline 10 mg oral tablet Refills 0, Maintenance, 05/09/25 2:24:00 PM EDT, Partial fill upon patient request if the prescription is for a schedule II opioid drug. Start Date: 05/09/25 Status: Ordered Medication Dispense Status: Completed Total Allowed Fills: 1 Fills Dispensed: 0 Freestyle Lite Monitor See Instructions, # 1 each, Refills 5, Maintenance, use as directed for Type 1 Diabetes Mellitus, 08/24/14 1:21:33 PM EDT, Compound Start Date: 08/24/14 Stop Date: 09/23/14 Status: Ordered Medication Dispense Status: Completed Quantity: 1.0 Unit: each Total Allowed Fills: 1 Fills Dispensed: 0 hydrochlorothiazide-losartan 12.5 mg-100 mg oral tablet 0 Refills, Maintenance, 05/09/25 2:22:00 PM EDT, Partial fill upon patient request if the prescription is for a schedule II opioid drug. Start Date: 05/09/25 Status: Ordered Medication Dispense Status: Completed Total Allowed Fills: 1 Fills Dispensed: 0 Januvia 100 mg oral tablet 0 Refills, Maintenance, 05/09/25 2:22:00 PM EDT, Partial fill upon patient request if the prescription is for a schedule II opioid drug. Start Date: 05/09/25 Status: Ordered Medication Dispense Status: Completed Total Allowed Fills: 1 Fills Dispensed: 0 levothyroxine 175 mcg (0.175 mg) oral tablet 1 tablet = 175 mcg, By Mouth, Daily, NOW 137 mcg, # 30 tablet, 0 Refills, Maintenance, 08/24/14 1:18:58 PM EDT, Tablet Start Date: 08/24/14 Status: Ordered Medication Dispense Status: Completed Quantity: 30.0 Unit: tablet Total Allowed Fills: 1 Fills Dispensed: 0 Metformin = 1,000 mg, By Mouth, 2 times a day, 0 Refills, Maintenance, 08/24/14 1:24:16 PM EDT Start Date: 08/24/14 Status: Ordered Medication Dispense Status: Completed Total Allowed Fills: 1 Fills Dispensed: 0 montelukast 10 mg oral tablet Refills 0, Maintenance, 05/09/25 2:23:00 PM EDT, Partial fill upon patient request if the prescription is for a schedule II opioid drug. Start Date: 05/09/25 Status: Ordered Medication Dispense Status: Completed Total Allowed Fills: 1 Fills Dispensed: 0 pantoprazole 40 mg oral delayed release tablet 1 tablet = 40 mg, By Mouth, Daily, # 30 tablet, 0 Refills, Maintenance, 08/28/17 10:33:06 AM EDT, EC Tablet Start Date: 08/28/17 Status: Ordered Medication Dispense Status: Completed Quantity: 30.0 Unit: tablet Total Allowed Fills: 1 Fills Dispensed: 0 Tylenol 325 mg oral tablet 650 mg, 2, tablet, By Mouth, Every 6 hours, PRN, # 50 tablet, Refills 0, Tot. Refills 0, Maintenance, for pain, 08/28/25 9:46:00 AM EDT, Route to Pharmacy Electronically, [facility], Partial fill upon patient request if the prescription is for a schedule II opioid drug., 165.1, cm, 08/09/25 15:14:00 EDT, Height Start Date: 08/28/25 Status: Ordered Medication Dispense Status: Completed Quantity: 50.0 Unit: tablet Total Allowed Fills: 1 Fills Dispensed: 0 Zofran 4 mg oral tablet 1 tablet = 4 mg, By Mouth, Every 8 hours, PRN Nausea & Vomiting, # 10 tablet, 0 Refills, Maintenance, 07/13/15 10:39:46 PM EDT, Tablet Start Date: 07/13/15 Status: Ordered Medication Dispense Status: Completed Quantity: 10.0 Unit: tablet Total Allowed Fills: 1 Fills Dispensed: 0 Problem List Condition Confirmation Course Effective Dates Status H ealth Status Informant Acquired hypothyroidism Confirmed Active Cystocele Confirmed Active Diabetes Confirmed Active GERD (gastroesophageal reflux disease) Confirmed Active History of thyroid cancer Confirmed Active Status post endovenous radiofrequency ablation of saphenous vein Confirmed Active Hypertension Confirmed Active Thymoma - Type AB, [place]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 Confirmed Active Urinary incontinence Confirmed Active Diagnosis Diagnosis Type Effective Dates Health Status Clinical Service Informant Status post phlebectomy Discharge Diagnosis 10/26/25 Vital Signs Most recent to oldest [Reference Range]: 1 Height 165.10 cm (10/23/25 3:45 PM) Weight 70 kg (10/23/25 3:45 PM) Oxygen Saturation [94-100 %] 98 % (10/23/25 3:45 PM) Pulse Rate [55-90 bpm] 107 bpm *H* (10/23/25 3:45 PM) Body Mass Index [18.5-24.99 kg/m2] 25.68 kg/m2 *H* (10/23/25 3:45 PM) Blood Pressure [90-138/55-84 mm Hg] 138/ 74mm Hg (10/23/25 3:45 PM) Mode of Delivery (Oxygen) Room air (10/23/25 3:45 PM) Blood pressure sites Arm, left (10/23/25 3:45 PM) Weight Obtained Via Patient/family state d (10/23/25 3:45 PM) Social History Social History Type Response Smoking Status Former smoker; Tobac co user in household: No entered on: 07/19/15 Sex Sex Representation Female (finding) Note * Annemarie Flor: PERFORM Event Display: Patient Education/Instruction Authored Date: Ambulatory Adult Visit Summary [facility] [id number] [place] [address] Name: WAQAS MOSHER : 1960?? Visit: 10/23/2025 15:03?? Ambulatory Visit Instructions ?? Your Care Team Primary Care Provider Bonnie Kothari MD? This Visit Provider Awilda Louie NP Your Diagnosis Status post phlebectomy Vitals Signs Pulse Rate:??107 bpm??High Height: 165.1 cm Systolic Blood Pressure: 138 mm Hg Weight: 70 kg Diastolic Blood Pressure: 74 mm Hg Body Mass Index:??25.68 kg/m2??High Oxygen Saturation: 98 % Body surface area: 1.79 Medications The list below reflects the information in our records and provided by you today along with any changes made during this visit. Please continue your medications until treatment is completed or stopped by your provider. If this is different from the information you have or there are other questions,please contact the prescribing provider. What How Much When Instructions Unchanged Acetaminophen (Tylenol 325 mg oral tablet) 2 tab(s) Oral Every 6 hours as needed for for pain Ordering Physician: Shameka Gill MD Unchanged amiTRIPTYLINE (amitriptyline 10 mg oral tablet) Unchanged Durable Medical Equipment (Freestyle Lite Monitor) See Instructions Duration: 30 Days Special Instructions: use as directed for Type 1 Diabetes Mellitus ?? Unchanged Hydrochlorothiazide-Losartan (hydrochlorothiazide-losartan 12.5 mg-100 mg oral tablet) Unchanged Levothyroxine (levothyroxine 175 mcg (0.175 mg) oral tablet) 1 tab(s) Oral Daily Special Instructions: NOW 137 mcg ?? Unchanged Metformin 1,000 Milligram Oral Twice a day Unchanged Montelukast (montelukast 10 mg oral tablet) Unchanged Ondansetron (Zofran 4 mg oral tablet) 1 tab(s) Oral Every 8 hours as needed for Nausea & Vomiting Ordering Physician: Fabián Fernández DO Unchanged Pantoprazole (pantoprazole 40 mg oral delayed release tablet) 1 tab(s) Oral Daily Unchanged sitagliptin (Januvia 100 mg oral tablet) Medications and Immunizations Administered Medications Given During Visit No medications given during this visit.?? Allergies (NKA means No Known Allergies) penicillins??swelling Common Emergency Awareness Tips IS IT A STROKE? Act FAST and Check for these signs: FACE Does the face look uneven? ARM Does one arm drift down? SPEECH Does their speech sound strange? TIME Call at any sign of stroke ?? Heart Attack Signs Chest discomfort: Most heart attacks involve discomfort in the center of the chest and lasts more than a few minutes, or goes away and comes back. It can feel like uncomfortable pressure, squeezing, fullness or pain. Discomfort in upper body: Symptoms can include pain or discomfort in one or both arms, back, neck, jaw or stomach. Shortness of breath: With or without discomfort. Other signs: Breaking out in a cold sweat, nausea, or lightheaded. Remember, MINUTES DO MATTER. If you experience any of these heart attack warning signs, call to get immediate medical attention! ?? Smoking can increase your chances of developing chronic health problems and can cause harmful effects to other family members in your house. If you smoke, you are strongly encouraged to quit. Please call [facility] at [phone] or [phone]) or log in to [email or web address] for referrals to smoking cessation programs. ?? The National Suicide Prevention Hotline is available 08/06 if you or someone you know needs to find a reason to keep living. By calling 9-381-729-[employer] (1849) you'll be connected to a skilled, trained counselor at a crisis center in your area. [facility] Portal You can view and manage your care through the patient portal or by using a health care tran of your choosing. [employer] is a website that allows you to securely view your medical information including your hospital discharge summary, office visit summaries, medications and follow-up visits. You can also request appointments, renew medications, and request access to your medical information using a health care tran of your choosing, or just ask a question. You can enroll at [email or web address] or register during your next office visit. [facility], in keeping with [facility] guidance, no longer requires face masks for staff, patientsor visitors in most situations. Similiar to time spent indoors at other locations, there is the chance that you were exposed to repiratory viruses during your time with us (such as flu or COVID-19). If you develop symptoms concerning for a viral respiratory infection, please seek testing (and treatment if indicated) from your medical provider or home test kit. ?? Disclaimer: The information provided is of a general nature and is intended to be used in conjunction with the recommendations and advice of your health care practitioner. Every effort has been made to ensure that the information provided is accurate and complete at the time it is provided to you however, as your needs change, or, as new information becomes available, different or additional instructions may be required. ?? If you have questions, please consult with your primary care provider or pharmacist, as appropriate. This information is not intended to serve as substitution for assessment and evaluation by a qualified health care provider. If you do not have a primary care provider, you may find a [facility] provider by calling [facility] at [phone]. Patient Care team information Care Team Personnel Name: Bonnie Kothari MD Position: [facility] Outreach Member Role: PCP Address: [address] [place] [address] [address] [place], [place] [address] Telecom: Name: Maxi SHELTON, Srinivasan Gomez Position: [facility] ED RN W/OE and Tasks Member Role: Primary Care Nurse Care Team Related Persons Name: BROWN LEVY Name: KATYA ALEGRE Name: SAAD ALEGRE Insurance Providers Guarantor name: WAQAS HOWARD [facility] Plan Information #: 1 Payer: BLUE BENEFIT [employer] PPO Payer Identifier: YAKELIN Member Number: [id number] Group Number: [id number] Subscriber Identifier: [id number] Relationship to Subscriber: spouse Coverage Type: BLUE CROSS/BLUE SHIELD Coverage Verification Date: Telecom: NA Address:
--- NOTE | 2025-11-02 12:10 | MHC.OFFVIS ---
Vital Signs 11/02/25 12:11 Height 5 ft 2 in Weight 149 lb 14.629 oz BMI 27.4 BP 106/74 Blood Pressure Location Rt brachial Position Sitting Pulse 96 Pulse Source Pulse Oximeter Pulse Oximetry (%) 95 Oxygen Delivery Method Room Air Intake Visit Reasons: Thyroid cancer Intake Note: Patient presents here today for Thyroid Cancer follow-up visit: Patient last seen DR Ashley Smiley MD. Thyroid Function Tests: Completed on 10/06/2025 Quality Assurance/R&D Lab Technician Required: Yes Quality Assurance/R&D Lab Technician Language: Cushion Assembler Services: Quality Assurance/R&D Lab Technician Present Accompanied by: Self / Same As Patient Allergies Penicillins (PENICILLINS) Allergy (Intermediate, Verified 11/02/25 12:15) HIVES Medication List - Last Reconciled 11/02/25 by Milton Khan MD acetaminophen (Tylenol) 650 mg (2 x 325 mg) PO Q6H PRN albuterol sulfate 90 mcg/actuation (ProAir HFA) 2 puffs inhalation Q4-6H PRN amitriptyline 10 mg PO BEDTIME atorvastatin 10 mg PO DAILY bisacodyl 10 mg PO BEDTIME blood sugar diagnostic (FreeStyle Lite Strips) Test blood glucose twice per day blood-glucose meter (FreeStyle Lite Meter kit) As directed cholecalciferol (vitamin D3) 62.5 mcg PO QAM estradiol 0.01%(0.1mg/gram) 1 g vaginal 2XW flash glucose scanning reader (FreeStyle Emile 2 [place]) As directed fluticasone furoate-vilanterol 200-25 mcg/dose (Breo Ellipta) 1 inh inhalation DAILY 30 days fluticasone propionate 50 mcg/actuation 1 spray intranasal BID hydrocodone-acetaminophen 5-325 mg 1 tab PO Q4-6H PRN ibuprofen 600 mg PO Q8H PRN levothyroxine 112 mcg PO QAM lidocaine-prilocaine 2.5-2.5 % topical DAILY PRN rcunfu-gdbfuldc-jdomnyq (pork) 36,000-114,000- 180,000 unit (Creon) 1 cap PO QID losartan-hydrochlorothiazide 100-12.5 mg 1 tab PO DAILY metformin 1,000 mg PO BID montelukast 10 mg PO DAILY pantoprazole 40 mg PO QAM phenazopyridine (Pyridium) 100 mg PO TID PRN prucalopride (Motegrity) 2 mg PO DAILY sitagliptin phosphate (Januvia) 100 mg PO DAILY sumatriptan succinate mg PO HPI Comments Details: 64-year-old female coming in today for follow up of papillary thyroid cancer status post total thyroidectomy in 2009 with central neck dissection, noted to have multifocal bilateral disease with largest focus measuring 2.7 cm, with capsular invasion and extrathyroidal extension, initial KAL high-risk of recurrence, AJCC stage I, (though there is M1 listed on her TNM pathology, this is unclear whether this is error because there was no mention of distant metastatic disease), status post 150 mCi of I 131 in 07/2010. 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 The patient last saw Dr. Smiley on 11/04/2024 History of PTC in detail 2009: Diagnosed with PTC in [facility]. Status post total thyroidectomy 04/25/2010 with central neck dissection, official surgical pathology reported 2.7 cm PTC in the right lobe with capsular invasion and extrathyroidal extension. Additional 2 foci of micropapillary thyroid carcinoma in the remaining right lobe measuring 0.3 and 0.4 cm, as well as foci in the isthmus measuring 0.5 cm. Additional 1.1 cm focus of PTC within the left lobe. The stage is this did as pT3 N1b M1, however no mention of distant metastatic disease in the chart otherwise so this is likely a mistake. She has to be N0, and given her age at the time of surgery, this is AJCC stage I. Given extrathyroidal extension, KAL initial high-risk of recurrence. 08/07/2010: Received 150 mCi of radioactive iodine treatment. 08/14/2010: Posttreatment whole-body scan revealed no iodine avid uptake. She then moved to [facility] in continued treatment there. 02/04/2012: TG 1.31, unfortunately no TSH available. She was on levothyroxine 200 mcg daily at that time. 01/31/2012: Whole-body scan following thyroid hormone withdrawal was negative for iodine avid uptake 05/04/2012: TG less than 0.2, TSH 0.08 Patient has subsequently moved back [place] 06/04/2014: Ultrasound head and neck completed revealed abnormal appearing lymph nodes. Stimulated TG at the time was 1, WBS revealed distant uptake within the neck, chest, abdomen. !! Unclear whether this is physiologic?? CT of the chest revealed a mediastinal mass measuring 2.5 X 2.5 X 7 cm. She was also noted to have a 10 mm right lower lobe pulmonary nodule. 01/28/2015: FNA biopsy of the abnormal appearing lymph node came back benign. She underwent evaluation with Dr. Edith Mireles at [facility] and there was concern of a 1.5 cm hypoechoic mass in the right thyroid fossa along the 1st tracheal ring which was biopsied and consistent with PTC. FNA biopsy of the mediastinal mass revealed a thymoma. Repeat whole-body scan around that time revealed no uptake within the lesion within the thyroid bed concerning for de- differentiated disease. 07/04/2015: Status post right paratracheal papillary thyroid carcinoma resection with Dr. Edith Mireles. Histology revealed a 1.5 cm PTC. 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 It was minimally invasive at the right, left posterior and anterior margins. Lymph nodes were negative for metastasis and there was no pleural invasion. She was referred for postoperative radiation therapy to decrease the risk of local recurrence. Unclear whether she got this?? 05/01/2015: MRI of the abdomen revealed no hepatic lesions corresponding to the activity to the whole-body scan 2018: Ultrasound of the head and neck revealed abnormal-appearing lymph nodes. 02/25/2018: FNA biopsy of a left level 4, 2.5 cm cervical lymph node, was inadequate. Left level 2, 1.9 cm lymph node revealed no evidence of metastatic disease. 12/30/2018: Repeat ultrasound and FNA biopsy of a left level 2, 2.6 cm and a left level 2, 2.3 cm cervical lymph node both with the only evidence of normal-appearing lymphocytes. Unfortunately no TG washout available. 02/01/2021: Thyrogen stimulated whole-body scan revealed only physiologic uptake. Labs TSH greater than 100, TG 0.8 with TG antibody negative. 01/27/2022: PET-CT with the identification of a 0.7 cm left level 2A lymph node with increased FDG uptake with SUV max of 2.9. There was an additional 0.5 cm left level 2B lymph node with increased FDG uptake and SUV max of 4. There was residual activity within the thyroidectomy bed. No abnormal uptake was noted in the chest, abdomen, pelvis. Mild FDG uptake in the posterior paraspinal tissue with SUV max of 3.4. This extended to the left lateral aspect of the spinal: It L5. There was a mild soft tissue prominence measuring 1.8 X 0.9 cm in the left paraspinal region. 01/24/2022: Ultrasound neck revealed an abnormal appearing lymph node in the left level 2 measuring 1.9 cm. 03/24/2022: TSH 0.02, TG 0.1, TG antibody at less than 1 04/09/2022: FNA biopsy of the left level 2 lymph node with cytology revealed no evidence of malignancy, only lymphocytes. TG washout was negative. Additional small suspicious appearing supraclavicular lymph node which was not biopsied by IR for unknown reason. 04/07/2022: CT of the lumbar spine revealed abnormal soft tissue within the left epidural space at the L5/S1 level. This was inseparable from the traversing segment of the S1 nerve root. MRI revealed a herniated disc with granulation tissue. 04/07/22: CT of the chest to evaluate the 1 cm pulmonary nodule that was identified in 201307/16/2022: TSH 0.01, TG 0.13, TG antibody less than 0.4, free T4 1.81 with TSH 0.01, TG 0.1 and TGAB <1. 07/28/2022: Evaluated by Dr. Kesha Hammond at [facility] , her own ultrasound from 07/16/2022 did not show any definitive suspicious lymph nodes in the cervical area. Specifically the prominent lymph node in the left level 2 had reassuring features including a fatty hilum. 07/22/2022: TSH 0.01, TG 0.1, TG antibody less than 1 09/25/22: CT chest LUNGS: 2 x 5 mm peripheral or subpleural right lower lobe nodule adjacent to the major fissure probably representing a subpleural lymph node. 4 mm noncalcified left lower lobe nodule . 6 mm calcified right lower lobe nodule 12/01/2022: Evaluated by pulmonology Dr. Joel Arias with plan for repeat CT scan in 1 year 02/2023: TSH less than 0.1, TG 0.1 (ICMA), TG antibody less than 1 08/2023: TG 0.1, TG antibody less than 1 09/14/23: CT chest Redemonstration of bilateral pulmonary nodules the largest measuring up to 6 mm along the medial aspect of the left major fissure along the anterior aspect of the right lower lobe, stable. 2. No new large or suspicious pulmonary nodules or masses are noted. Has no upcoming follow up with pulmonology since last CT scan about a year ago in August 2023 09/16/2023: Ultrasound neck showed morphologically benign-appearing lymph nodes in the right neck. Left neck level 2 lymph node measuring 1.9 X 0.5 X 1.3 cm with loss fatty hilum. 11/05/2023: Again seen at [facility], Dr. Hammond for follow up of neck imaging, repeat ultrasound done in office showed no mass in bilateral thyroid bed. No suspicious nodes seen, left level 2 node without a clear hilum is oval in shape and stable in size compared to study from 06/2022 per nodes. Nonspecific isoechoic area in the left level 5B that is either a node versus part of the adjacent. 08/18/24 Levothyroxine reduced to 112 mcg daily from 125 mcg daily after TSH low at 0.14 Interval history Labs 09/26/24 TSH 0.92, free t4 1.26, Tg <0.1, tg <1 10/07/24: US neck with normal appearing lymp nodes ,no suspicious lesion seen, I reviewed the images myself Currently on levothyroxine 112 mcg daily , taking it appropiately. She denies any palpitations, tremors, bowel movements are regular. Says she has gained some weight recently, denies any weight loss. Denies any shortness of breath, though sometimes have cough with respiratory irritation. She does report back pain that is bothersome to her. Laboratory Tests 09/10/18 05/24/19 07/06/19 12:33 11:36 07:10 Free T4 1.70 1.67 TSH Thyroglobulin 0.1 H <0.1 0.5 H Thyroglobulin Antibody <1 <1 <1 07/08/19 08/30/19 11/30/19 07:30 11:24 12:00 Free T4 1.83 1.37 TSH Thyroglobulin 0.4 H <0.1 <0.1 Thyroglobulin Antibody <1 <1 <1 04/12/20 07/05/20 07/06/20 16:38 12:25 11:05 Free T4 1.63 1.27 TSH Thyroglobulin 0.1 H 0.1 H Thyroglobulin Antibody <1 <1 10/23/20 12/07/20 01/30/21 09:35 11:00 07:03 Free T4 1.59 1.38 TSH 0.05 L 0.18 L > 100.00 H Thyroglobulin 0.1 H <0.1 0.8 H Thyroglobulin Antibody <1 <1 <1 02/01/21 04/16/21 05/31/21 07:40 12:40 10:33 Free T4 1.28 1.31 TSH 14.33 H 2.19 1.46 Thyroglobulin 0.6 H 0.1 H 0.1 H Thyroglobulin Antibody <1 <1 <1 12/04/21 12/30/21 03/24/22 09:54 09:50 10:26 Free T4 1.11 1.49 1.83 TSH 9.61 H 0.98 0.02 L Thyroglobulin 0.2 L 0.2 L 0.1 L Thyroglobulin Antibody <1 <1 <1 08/11/22 02/26/23 05/06/23 09:47 09:12 06:01 Free T4 2.19 H 1.81 1.74 TSH 0.01 L < 0.01 L 0.02 L Thyroglobulin 0.1 L <0.1 Thyroglobulin Antibody <1 <1 09/08/23 11/20/23 11/20/23 08:51 08:48 08:49 Free T4 1.41 1.29 TSH < 0.01 L 0.07 L Thyroglobulin 0.1 H Thyroglobulin Antibody <1 02/01/24 07/04/24 08/18/24 09:37 07:16 11:08 Free T4 1.20 1.20 1.52 TSH 2.36 2.90 0.14 L Thyroglobulin Thyroglobulin Antibody Laboratory Tests 08/18/24 09/26/24 11:08 09:55 TSH 0.14 L 0.92 Free T4 1.52 1.26 Thyroglobulin <0.1 Thyroglobulin Antibody <1 Imaging US SOFT TISSUE OF THE NECK 10/07/24 CLINICAL INFORMATION: Personal history of malignant neoplasm of thyroid. COMPARISON: Ultrasound soft tissue head/neck thyroid 12/26/2019 12/22/2017. Correlated to CT neck 01/12/2020. TECHNIQUE: Linear transducer grayscale and color Doppler examination of the neck. FINDINGS: Submitted for interpretation on November 04, 2024. Absent thyroid gland. There are less than 1.6 cm fatty hilum nodules/lymph nodes at the surgical site. No gross fluid collections. US/US soft tiss head and/or neck IMPRESSION: Nonspecific prominent less than 1.6 cm lymph nodes. No gross mass or fluid collections. Electronically signed by: Andres Kendall MD 11/04/2024 09:00 AM [facility] CT LUMBAR SPINE WITHOUT CONTRAST 07/28/24 CLINICAL INFORMATION: Evaluate for disc herniation, patient has spinal cord stimulator COMPARISON: Lumbar spine radiograph 05/04/2024 TECHNIQUE: Noncontrast axial 1.5 and 2 mm sections through the lumbar spine were obtained. Coronal and sagittal reformats were obtained at the acquisition workstation. This CT examination was performed using dose optimization techniques as appropriate, variously including the following: *Automated exposure control *Adjustment of mA and/or kV according to patient size (this includes techniques or standardized protocols for targeted exams where dose is matched to indication/reason for exam; i.e. extremities or head) *Use of iterative reconstruction technique DLP; 386 mGy-cm FINDINGS: No acute fracture involving the lumbar spine. The lumbar vertebral bodies demonstrate normal height. Overall sagittal alignment appears maintained. There is moderate intervertebral disc space narrowing with intradiscal vacuum phenomena and endplate degenerative changes at L5-S1. Again noted generator device in the right gluteal subcutaneous soft tissues with intact stimulator lead terminating within the lumbar spinal canal at the level of L1. The paravertebral soft tissues appear unremarkable. Mild aortoiliac atherosclerosis. Few sigmoid colonic diverticula. Mild degenerative changes involving bilateral sacroiliac joints. T12-L1:No spinal canal or foraminal stenosis. L1-L2: No spinal canal or foraminal stenosis. L2- L3: No spinal canal or foraminal stenosis. L3-L4:No spinal canal or foraminal stenosis.Mild facet arthropathy. L4-L5: Minimal disc bulge. No spinal canal or foraminal stenosis. Mild facet arthropathy. L5-S1: Disc bulge with superimposed left paracentral disc protrusion and left subarticular stenosis. There is likely mass effect on the left S1 traversing nerve root, although not well evaluated on CT. No significant right-sided foraminal stenosis. Moderate to severe bilateral facet arthropathy.Mild right and [id number] left foraminal stenosis. CT/CT lumbar spine wo IV con IMPRESSION: At L5-S1, there is disc bulge with superimposed left paracentral disc protrusion and left subarticular stenosis.There is likely mass effect on the left S1 traversing nerve root, although not well evaluated on CT. Moderate to severe bilateral facet arthropathy.Mild right and [id number] left foraminal stenosis. Mild facet arthropathy at L3-4 and L4-L5.. Electronically signed by: Nicholas Seymour MD 08/05/2024 10:[address] SOFT TISSUE NECK WITH CONTRAST 03/07/24 CLINICAL INFORMATION: Dysphagia COMPARISON: None. TECHNIQUE: Following the administration of 60 mL of Omnipaque 350 intravenous contrast, helical imaging was performed in the axial plane with generation of coronal and sagittal reformatted images. This CT examination was performed using dose optimization techniques as appropriate, variously including the following: *Automated exposure control. *Adjustment of mA and/or kV according to patient size (this includes techniques or standardized protocols for targeted exams where dose is matched to indication/reason for exam; i.e. extremities or head). *Use of iterative reconstruction technique. DLP: 260 mGy-cm. FINDINGS: The fat planes of the skull base and soft tissues of the nasopharynx are unremarkable. The paranasal sinuses and mastoid air cells are well aerated. The temporomandibular joints are normal. Torus palatini and small left torus maxillari. The oral cavity is unremarkable. Punctate calcified bilateral palatine tonsilloliths. Asymmetric soft tissue along the right base of tongue projecting into the upper vallecula and contacting the free edge of the epiglottis may reflect asymmetric tonsillar tissue though can be correlated with direct inspection. Asymmetric prominence of the right laryngeal ventricle can be correlated for right vocal cord paresis/paralysis. The aryepiglottic folds are opposed posteriorly with effacement of the left pyriform sinus. The subglottic airway is normal.. The left submandibular gland is small relative to the right. The parotid glands are normal. Thyroidectomy. No pathologic size criteria or morphologically suspicious cervical chain lymph nodes. The partially visualized lung apices are clear. Mild to moderate calcific plaque of the aortic arch and great vessel origins. Eccentric fibrofatty plaque mildly narrows the proximal brachiocephalic trunk. Otherwise grossly normal opacification of the major neck vessels. Minimal cervical spondylosis. Asymmetric ex vacuo dilatation of the right temporal horn with otherwise unremarkable imaged intracranial contents. Mild patchy paranasal sinus mucosal disease with some aerated contents in the right maxillary sinus. Small right mastoid effusion. Lens replacements. CT/CT soft tissue neck w IV con IMPRESSION: 1. Morphologic findings discussed above that can be correlated for right vocal cord paresis/paralysis. No aerodigestive tract mass. 2. No pathologic size criteria or morphologically suspicious cervical chain lymph nodes. US SOFT TISSUE NECK 09/16/23 CLINICAL INFORMATION: Lymph node mapping COMPARISON: None available. TECHNIQUE: Ultrasound of the neck soft tissues is performed with high- frequency murrell-scale imaging and color Doppler. FINDINGS: Right neck level 1B lymph node measuring up to 4 mm in short axis morphologically benign-appearing. Right neck level 2 lymph node measuring 0.5 cm in short axis, morphologically benign-appearing. Right neck level 5 8 lymph node measuring 5 mm in short axis, morphologically benign-appearing. Left neck level 1B lymph node measuring up to 7 mm in short axis, morphologically benign-appearing. Left neck level 2 lymph node measuring 1.9 x 0.5 x 1.3 cm with loss of fatty hilum. US/US soft tiss head and/or neck IMPRESSION: 1. Morphologically benign-appearing lymph nodes in the right neck. 2. Left neck level 2 lymph node measuring 1.9 x 0.5 x 1.3 cm with loss of fatty hilum. CT CHEST WITHOUT CONTRAST 09/14/23 CLINICAL INFORMATION: Abnormal findings of lung field COMPARISON: CT abdomen from 02/28/2023, CT chest from 11/25/2021 TECHNIQUE: Multidetector volumetric CT imaging of the chest was done. Axial MIP volume rendering provided. Sagittal and coronal reformatted images were obtained. This CT examination was performed using dose optimization techniques as appropriate, variously including the following: *Automated exposure control *Adjustment of mA and/or kV according to patient size (this includes techniques or standardized protocols for targeted exams where dose is matched to indication/reason for exam; i.e. extremities or head) *Use of iterative reconstruction technique DLP: 126 mGy-cm FINDINGS: LUNGS/PLEURA: Stable 2 mm pleural-based nodular focus along the anterior aspect of the right upper lobe (series 5, image 222). 6 mm nodular focus along the medial aspect of the left major fissure along the anterior aspect of the right lower lobe (series 5, image 295), stable. Calcified granuloma right lower lobe (series 5, image 372). 4 mm nodule in the lateral aspect of the left lower lobe (series 5, image 338), stable. No new large or suspicious pulmonary nodules or masses are noted. Central airways are patent. No pneumothorax. No large pleural effusion. Bibasilar atelectasis. MEDIASTINUM: Heart is not enlarged. No pericardial effusion. No coronary artery calcifications are noted. Aorta is nonaneurysmal and demonstrates a sclerotic calcifications. Main pulmonary artery is not enlarged. A few mildly prominent though nonenlarged peritracheal precarinal and periaortic lymph nodes are noted. AXILLA: No lymphadenopathy. UPPER ABDOMEN: Small hiatal hernia. OSSEOUS STRUCTURES: Multilevel degenerative changes of the thoracolumbar spine. Partial visualization of left or spinal stimulator along the upper lumbar spine CT/CT chest wo IV con IMPRESSION: 1. Redemonstration of bilateral pulmonary nodules the largest measuring up to 6 mm along the medial aspect of the left major fissure along the anterior aspect of the right lower lobe, stable. 2. No new large or suspicious pulmonary nodules or masses are noted. 3. Small hiatal hernia. CT CHEST WITH CONTRAST 09/25/22 CLINICAL INFORMATION: History of thyroid cancer. COMPARISON: Previous chest x-rays, most recent 12/25/2021. TECHNIQUE: Multidetector volumetric CT imaging of the chest was obtained after the administration of 65 mL of Omnipaque 350 intravenous contrast without immediate adverse reactions. Axial MIP volume rendering provided. Sagittal and coronal reformatted images were obtained. This CT examination was performed using dose optimization techniques as appropriate, variously including the following: *Automated exposure control *Adjustment of mA and/or kV according to patient size (this includes techniques or standardized protocols for targeted exams where dose is matched to indication/reason for exam; i.e. extremities or head) *Use of iterative reconstruction technique DLP: 97 mGy-cm FINDINGS: LUNGS: 2 x 5 mm peripheral or subpleural right lower lobe nodule adjacent to the major fissure (axial image 95, series 5) probably representing a subpleural lymph node. 4 mm noncalcified left lower lobe nodule (axial image 112, series 5). 6 mm calcified right lower lobe nodule (axial image 119, series 5). MEDIASTINUM: There are surgical clips in the anterior superior mediastinum. The mediastinum is otherwise normal. Small mediastinal and bilateral hilar lymph nodes including partially calcified right hilar lymph node. No enlarged lymph nodes. Normal heart size. No pericardial effusion. Normal caliber thoracic aorta. No coronary artery calcification. PLEURA: There is no pleural effusion. No pleural mass or thickening. AXILLA: No lymphadenopathy. UPPER ABDOMEN: There may be fatty infiltration of the liver. OSSEOUS STRUCTURES: Unremarkable. CT/CT chest w IV con IMPRESSION: Small, calcified and noncalcified pulmonary nodules. According to Fleischner guidelines, chest CT follow up as per protocol. Fleischner guidelines were followed. MR LUMBAR SPINE WITHOUT AND WITH CONTRAST 05/01/22 CLINICAL INFORMATION: 61-year-old with self-reported low back pain radiating to the right leg with left foot numbness. COMPARISON: 02/05/2022 CT lumbar spine, 11/13/2021 MRI. TECHNIQUE: MRI of the lumbar spine was obtained using routine sequences with and without contrast. Intravenous contrast: Gadavist 7 mL FINDINGS: Coronal Alignment: Normal Sagittal Alignment: Normal Lumbosacral Junction: Normal. Five wes-ydy-kgveobi lumbar-type vertebral bodies. Vertebral Bodies: Vertebral body heights are well maintained. Disc Spaces and Endplates: Moderate disc volume loss at L5-S1 is noted, with central Schmorl's nodes, with disc desiccation similar to previous MRI. Remaining lumbar intervertebral discs demonstrate normal height, with minor multilevel disc desiccation without significant spondylosis. Spinal Canal: No abnormal developmental findings. Bone Marrow: Minor type I degenerative marrow signal changes seen along the endplates at L5-S1 with associated endplate enhancement consistent with this. Otherwise bone marrow signal intensity appears within normal limits. Conus Medullaris: Terminates at L1-L2. Morphology and signal is normal. No abnormal enhancement. Intradural Nerve Roots: Within normal limits. No abnormal intradural enhancement. L5-S1: Note is made of a central to left subarticular recurrent disc herniation with marginal enhancing soft tissue which may reflect granulation tissue, measuring 6 mm in AP dimension with maximum transverse diameter of 8 mm, with mass effect on the left ventral thecal sac and traversing left S1 nerve root in the subarticular zone. Left hemilaminectomy changes are also noted with enhancing soft tissue in the left side of the canal adjacent to the traversing left S1 nerve root and left side of the thecal sac consistent with postoperative changes. Minor right-sided and [id number] left-sided facet arthrosis is noted. No significant neural foraminal stenosis and no significant central spinal canal stenosis. Note that the above-described disc herniation contacts the right S1 nerve root sleeve as well without nerve root compression or displacement. L4-L5: Small central to left central disc protrusion as noted on previous study with minimal indentation of the ventral thecal sac with associated enhancing annular fissuring at this level. Mild facet arthrosis bilaterally without significant canal or neuroforaminal stenosis. L3-L4: Normal disc contour. No facet arthrosis, canal or neuroforaminal stenosis. L2-L3: Normal disc contour. No facet arthrosis, canal or neuroforaminal stenosis. L1-L2: Normal disc contour. No facet arthrosis, canal or neuroforaminal stenosis. Paraspinal/Retroperitoneal: The paravertebral soft tissues appear grossly unremarkable. MR/MR lumbar spine wo/w con IMPRESSION: 1. Degenerative and postoperative changes at L5-S1 as described above with a left central to left subarticular recurrent disc herniation impinging on the traversing left S1 nerve root and slightly contacting the traversing right S1 nerve root sleeve with mild encroachment on the left ventral dural sac as well. 2. Stable small central to left paramedian disc protrusion at L4-L5 with enhancing annular fissuring. CT LUMBAR SPINE WITHOUT CONTRAST 04/07/22 CLINICAL INFORMATION: Lesion near L5. COMPARISON: Abdominal CT 02/02/2022. Lumbar spine MRI 11/13/2021. TECHNIQUE: Multidetector CT acquisition of the lumbar spine is obtained without contrast. Multiplanar reformats are acquired and utilized for image interpretation. This CT examination was performed using dose optimization techniques as appropriate, variously including the following: *Automated exposure control *Adjustment of mA and/or kV according to patient size (this includes techniques or standardized protocols for targeted exams where dose is matched to indication/reason for exam; i.e. extremities or head) *Use of iterative reconstruction technique FINDINGS: There are 5 nonrib-bearing lumbar-type vertebral bodies. Lumbar alignment is normal. Chronic inferior endplate Schmorl's node at L5 again noted. Mild chronic vertebral body height loss at L5 is stable. The remaining lumbar vertebral body heights are maintained. There is mild disc volume loss and there is vacuum phenomenon at L5-S1. The remaining disc volumes are preserved. There are no acute fractures and there are no acute subluxations. No suspicious intraosseous lesions are identified. There is aortoiliac atherosclerotic calcification. The L1-L2, L2-L3, and L3-L4 disc contours remain within normal limits. No central canal stenosis and no foraminal stenosis at these levels. L4-L5: There is likely a stable shallow left paracentral disc protrusion resulting in posterior deflection of the traversing left L5 nerve root within the left subarticular zone. No significant central canal stenosis and no foraminal stenosis. L5-S1: Postoperative changes following left hemilaminectomy. There is abnormal soft tissue within the left epidural space inseparable from the traversing left S1 nerve root that could reflect recurrent/residual disc herniation and/or scar tissue that would be better assessed with a lumbar spine MRI with and without IV contrast. CT/CT lumbar spine wo con IMPRESSION: - At L5-S1, there are postoperative changes following left hemilaminectomy. There is abnormal soft tissue within the left epidural space at L5-S1 inseparable from the traversing left S1 nerve root that could reflect recurrent/residual disc herniation and/or scar tissue that would be better assessed with a lumbar spine MRI with and without IV contrast. - At L4-L5, there is likely a stable shallow left paracentral disc protrusion resulting in posterior deflection of the traversing left L5 nerve root within the left subarticular zone. US SOFT TISSUE HEAD/NECK 01/20/2022 CLINICAL INFORMATION: Malignant neoplasm of thyroid gland. COMPARISON: Ultrasound soft tissue head and neck 11/08/2020. TECHNIQUE: Linear transducer grayscale and color Doppler examination of the neck lymph nodes. FINDINGS: On the right at level 1B the previously identified 0.6 x 0.4 x 0.5 cm lymph node is not seen on the current study. On the right at level 1B there is a 1.5 x 0.4 x 1.1 cm lymph node with a fatty hilum. The margins appear smooth and hypoechoic. No calcification is seen. Previously, this measured 1.7 x 0.4 x 1.2 cm. On the right at level 3 there is a 0.9 x 0.3 x 0.4 cm lymph node with a fatty hilum. No calcification is seen. This was not apparent previously. In the right supraclavicular region there is a 0.7 x 0.5 x 0.5 cm lymph node with a smooth fatty hilum. However, there is a hypoechoic area with in the fatty hilum which appears abnormal. The hypoechoic periphery of the lymph node appears small in diameter. This lymph node appears suspicious. This was not apparent previously. On the left at level 1B there is a 2.2 x 0.7 x 0.6 cm lymph node. This has a central fatty hilum. The hypoechoic periphery appears smooth without calcification. This was seen previously and appears similar. On the left at level 2 there is a 1.9 x 0.5 x 0.6 cm lymph node which appears abnormal. There is absence of the central fatty hilum. The lymph nodes predominantly hypoechoic. No calcification is seen. On the left at level 2 the previously identified 0.7 x 0.6 x 0.4 cm lymph node is not identified. US/US soft tiss head and/or neck IMPRESSION: 1. There is a suspicious 0.7 cm lymph node in the right supraclavicular region. 2. There is a suspicious 1.9 cm lymph node in level 2 on the left without a central fatty hilum. 3. Ultrasound-guided biopsy is recommended. CT ABDOMEN AND PELVIS WITH CONTRAST 11/20/21 CLINICAL INFORMATION: Abdominal pain. COMPARISON: Ultrasound of 09/13/[address] scan of 03/24/2021. TECHNIQUE: Multidetector volumetric images were obtained from the superior aspect of the liver through the pubic symphysis following administration 85 mL of Omnipaque 350 intravenous contrast. Sagittal and coronal reformatted images were obtained on the technologist's workstation. Oral Contrast: Yes. This CT examination was performed using dose optimization techniques as appropriate, variously including the following: *Automated exposure control. *Adjustment of mA and/or kV according to patient size (this includes techniques or standardized protocols for targeted exams where dose is matched to indication/reason for exam; i.e. extremities or head). *Use of iterative reconstruction technique. DLP: 335 mGy-cm FINDINGS: LUNG BASES: Calcified granuloma is seen within the right lower lobe. Heart normal size. No pericardial effusion. No pleural effusion. LIVER, GALLBLADDER, AND BILIARY TREE: The liver is of normal shape and size. There is a question of some fatty infiltration with some diminished density. No focal hepatic lesion or biliary ductal dilatation is present. The common bile duct is prominent at 8 mm in diameter in the region of the pancreatic head. No calculi or pancreatic head mass appreciated. The gallbladder is unremarkable with no evidence of radiopaque gallstones, gallbladder wall thickening, or obvious pericholecystic inflammatory changes. PANCREAS: Unremarkable. SPLEEN: Unremarkable. ADRENAL GLANDS: Unremarkable. KIDNEYS AND URETERS: The kidneys are normal in size, shape, and attenuation. No hydronephrosis, hydroureter, or calculi seen. No perinephric stranding. There are a few bilateral subcentimeter low-density lesions seen within the kidneys likely representing cysts or angiomyolipomas. There is a duplicated right upper collecting system present. It appears that the ureters may fuse in the mid pelvis but difficult to tell for sure. BLADDER: Unremarkable. GASTROINTESTINAL TRACT: No dilated loops of large or small bowel are evident. No free air or free fluid. Mild sigmoid diverticulosis is present without evidence of acute diverticulitis. No pericolonic inflammatory change. The appendix is visualized and appears unremarkable. ABDOMINAL WALL: No significant hernia is appreciated. Status post previous infraumbilical midline abdominal surgery. LYMPH NODES: No lymphadenopathy appreciated. VASCULAR: Unremarkable. Visceral vessels patent. No abdominal aortic aneurysm. Minimal bilateral iliac artery calcified plaque present. Portal vein is patent. PELVIC VISCERA: Unremarkable. OSSEOUS STRUCTURES: No acute destructive bony lesions identified. There is degenerative disc disease seen at the L5-S1 level. CT/CT abdomen pelvis w con IMPRESSION: 1. Old granulomatous disease. 2. Probable some degree of fatty infiltration of the liver. 3. Prominence of the common bile duct to 8 mm in diameter in the region of the pancreatic head without pancreatic head mass or calculus identified. 4. Duplicated right renal upper collecting system with some bilateral subcentimeter low-density lesions likely representing either cysts or angiomyolipomas. 5. No evidence of obstructive uropathy or bowel obstruction. XR LUMBOSACRAL SPINE 10/25/21 CLINICAL INFORMATION: Left hip pain, lumbago. COMPARISON: 07/25/2021 TECHNIQUE: Three views of the lumbosacral spine. FINDINGS: There are 5 [id number] lumbar vertebra. The bony texture and alignment is satisfactory. Pedicles are intact. There is mild narrowing of the L5-S1 disc space. There is facet arthropathy seen bilaterally at L5-S1. No acute fracture, spondylolisthesis, or spondylolysis identified. XR/XR lumbar spine 2-3V IMPRESSION: No acute fracture, spondylolisthesis, or spondylolysis. Bilateral facet arthropathy L5-S1 with mild disc space narrowing at L5-S1. LUMBAR SPINE, RIGHT ELBOW 07/25/21 CLINICAL INFORMATION: Fall with back and elbow pain COMPARISON: CT abdomen pelvis 01/15/2020 TECHNIQUE: 3 views right elbow, 3 views lumbar spine FINDINGS: Elbow: No bone, joint or soft tissue abnormality is seen. Lumbar spine: Disc spaces and vertebral heights are well preserved. No bony destructive lesions seen. No acute fractures detected. XR/XR lumbar spine 2-3V IMPRESSION: Negative radiographs of the right elbow and lumbar spine CT ABDOMEN AND PELVIS WITHOUT CONTRAST 03/24/21 CLINICAL INFORMATION: Flank pain. Question renal stones. COMPARISON: CT of the abdomen and pelvis without contrast dated January 14, 2021. TECHNIQUE: Multidetector volumetric imaging was performed from the superior aspect of the liver through the pubic symphysis. Sagittal and coronal reformatted images were obtained on the technologist's workstation. This CT examination was performed using dose optimization techniques as appropriate, variously including the following: *Automated exposure control *Adjustment of mA and/or kV according to patient size (this includes techniques or standardized protocols for targeted exams where dose is matched to indication/reason for exam; i.e. extremities or head) *Use of iterative reconstruction technique DLP: 360 mGy-cm FINDINGS: LINES AND TUBES: None. LOWER THORAX: Lung bases are clear. Small right basilar calcified granuloma (3:6). Heart is normal in size. No pericardial effusion or thickening. HEPATOBILIARY: The liver is normal in size, contour, and attenuation. No focal hepatic lesions. The gallbladder is present and otherwise unremarkable. No biliary dilatation. SPLEEN: Normal. PANCREAS: Normal. ADRENALS: Normal. KIDNEYS/URETERS: Duplicated right collecting collecting system is noted with two separate right ureters which are best appreciated at (3:40). The ureters are normal throughout their course. No ureteral calculi. No right renal calculi. Normal left kidney. Normal left ureter. BLADDER: Urinary bladder is normal in appearance. No urinary bladder calculi appreciated. PELVIC ORGANS: Vaginal cuff is noted. Uterus is not visualized. No adnexal mass. GI TRACT: No dilated or thick walled loops of bowel. Few sigmoid colon diverticula. The appendix is normal (3:54). PERITONEUM/RETROPERITONEUM AND MESENTERY: No intraperitoneal free air or fluid. LYMPH NODES: No pathologically enlarged lymph nodes. VESSELS: Normal in caliber. Mild aortoiliac atherosclerotic calcification. BONES AND SOFT TISSUES: No aggressive osseous lesions. CT/CT abdomen pelvis wo con IMPRESSION: 1. Duplicated right renal collecting system. No renal, ureteral, or urinary bladder calculi. 2. Few sigmoid colon diverticula. No evidence of diverticulitis. Ct abdomen/pelvis 01/14/21 CT ABDOMEN AND PELVIS WITHOUT CONTRAST CLINICAL INFORMATION: Right flank pain. Dysuria. Evaluate for pyelonephritis. COMPARISON: Previous CT of the abdomen and pelvis June 2020 TECHNIQUE: Multidetector volumetric imaging was performed from the superior aspect of the liver through the pubic symphysis. Sagittal and coronal reformatted images were obtained on the technologist's workstation. This CT examination was performed using dose optimization techniques as appropriate, variously including the following: *Automated exposure control *Adjustment of mA and/or kV according to patient size (this includes techniques or standardized protocols for targeted exams where dose is matched to indication/reason for exam; i.e. extremities or head) *Use of iterative reconstruction technique DLP: 455 mGy-cm FINDINGS: LUNG BASES: The visualized lung bases are unremarkable. LIVER, GALLBLADDER, AND BILIARY TREE: The liver is normal in size, shape, and attenuation. No focal hepatic lesion or biliary ductal dilatation is present. The gallbladder is unremarkable with no evidence of radiopaque gallstones, gallbladder wall thickening, or obvious pericholecystic inflammatory changes. PANCREAS: Unremarkable. SPLEEN: Unremarkable. ADRENAL GLANDS: Unremarkable. KIDNEYS AND URETERS: There is a duplicated right renal collecting system. The kidneys are otherwise normal. No stone or hydronephrosis is seen. No ureteral dilatation or ureteral stone is seen. Pyelonephritis is difficult to evaluate without IV contrast. No cortical thickening, focal lesion or perinephric stranding or fluid is seen. BLADDER: Unremarkable. GASTROINTESTINAL TRACT: There is mild diverticulosis of the colon. The small and large bowel are otherwise unremarkable. The appendix is unremarkable. ABDOMINAL WALL: As evidence of previous low ventral hernia repair with mesh. LYMPH NODES: There is shotty small bowel mesentery lymphadenopathy in the right lower quadrant. No enlarged lymph nodes are seen. There is no ascites. VASCULAR: Unremarkable. PELVIC VISCERA: The whole the uterus appears to have been removed. No pelvic mass is seen. OSSEOUS STRUCTURES: Unremarkable. CT/CT abdomen pelvis wo con IMPRESSION: Duplicated right renal collecting system. Mild diverticulosis of the colon. ULTRASOUND SOFT TISSUE HEAD AND NECK 11/08/20 CLINICAL INFORMATION: Malignant neoplasm of thyroid gland. Follow up lymph nodes. COMPARISON: Ultrasound neck 07/17/2020. TECHNIQUE: Ultrasound imaging of neck lymph nodes was performed. FINDINGS: There are several bilateral lymph nodes seen. Right Neck: 1. Level Ib lymph node measuring 1.7 x 0.4 x 1.2 cm. It has a slit-like hilum and appears abnormal. Previously it measured 1.7 x 0.5 x 1.9 cm. 2. The previously seen 0.6 x 0.4 x 0.5 cm level 1B lymph node is not visualized at this time. Left Neck: 1. Level Ib lymph node measures 2.6 x 0.6 x 1.0 cm. It is abnormal and has a slit-like hilum. Previously it measured 2.6 x 0.6 x 1.2 cm. 2. Level 2 lymph node measures 1.9 x 0.5 x 1.4 cm. It is abnormal and has an absent hilum and has cystic features. Previously it measured 2.1 x 0.4 x 1.4 cm. 3. The previously seen 0.7 x 0.6 x 1.0 cm level 2 lymph node is not visualized at this time. US/US soft tiss head and/or neck IMPRESSION: At least 1 solitary abnormal lymph node in the right neck and 2 abnormal-appearing lymph nodes in the left neck essentially unchanged in size. Currently on 112 mcg levothyroxine. recent TSH was increased, Claims compliance with L-T4 PFSH Medical History GERD (gastroesophageal reflux disease) Type 2 diabetes mellitus with polyneuropathy Bladder pain Headache Cognitive disorder Cervical dystonia Palpitations Non-cardiac chest pain Pelvic pain Leg pain Lower abdominal pain Gross hematuria Toe pain Right knee pain Effusion, right knee Dysuria Pelvic pain in female Hematuria Mass of spine Hematuria DM2 (diabetes mellitus, type 2) Nail deformity Paronychia Failure of spinal cord stimulator Thymoma Pulmonary nodules Thyroid cancer Blood in urine Constipation by delayed colonic transit Tubular adenoma of colon Gastritis Hypertension Dyslipidemia Post-surgical hypothyroidism Primary thyroid cancer Vitamin D deficiency Surgical History History of vascular surgery History of carpal tunnel release History of thymectomy History of back surgery Hx of colonoscopy Hx of thyroidectomy Hx of hernia repair Hx of section Hx of hysterectomy History of esophagogastroduodenoscopy (EGD) Family History Father Stroke Heart attack Mother Diabetes mellitus Family/Other Family history of cancer Sister Stomach cancer Family/Other Thyroid cancer Social History Household Members: Spouse, Family and Other Household Members Other:: grandson Housing: Apartment Are you a primary critical care transport nurse to a significant other at home: No Do you presently have visiting nurse or other home services: No Alcohol intake: former Comment: counts correct Patient Tobacco Use Status: Never used Tobacco Tobacco use type: Cigarette Second Hand Smoke Exposure: No service: No Sexual orientation: Straight/Heterosexual Gender identity: Female Female Reproductive History Menstrual Age of Menarche: 13 Physical Exam Vital Signs: Last Vital Signs Pulse 96 11/02/25 12:11 BP 106/74 11/02/25 12:11 Pulse Ox 95 11/02/25 12:11 Oxygen Delivery Method Room Air 11/02/25 12:11 BMI result Body Mass Index 27.4 Const Other: In the neck there is a scar status post thyroidectomy. There was no cervical adenopathy palpated Assessment & Plan Assessment & Plan (1) Primary thyroid cancer: Code(s): C73 - Malignant neoplasm of thyroid gland Category: Medical Plan: This is a 64-year-old female with a history of papillary cancer status post total thyroidectomy in 2009 with central neck dissection, noted to have multifocal bilateral disease with largest focus measuring 2.7 cm, with capsular invasion and extrathyroidal extension. She had an excellent response to therapy with negative neck ultrasound Plan is to Orders: Orders Free T4 (Free Thyroxine) 6 Weeks C73 - Malignant neoplasm of thyroid gland Thyroid Stimulating Hormone 6 Weeks C73 - Malignant neoplasm of thyroid gland Medications: New levothyroxine (Levoxyl) 125 mcg PO DAILY 30 tabs 5RF Discontinued levothyroxine Discontinued Reason: Doctor's Order 112 mcg PO QAM 30 tabs 11RF Coding Level of Care Code Est Pt Level 3 (40733) Diagnoses Primary thyroid cancer C73
[2025-11-02 12:11] VITALS: BP 106/74; PULSE 96; O2SAT 95; BMI 27.4
== END 2025-11-02 12:37 | disposition home or self-care (01) ==
LOC: HO.ENCR 11:36
PROVIDERS: PCP Student in an Organized Health Care Education/Training Program; Visit Provider Internal Medicine Endocrinology, Diabetes & Metabolism
DX: C73 Malignant neoplasm of thyroid gland (principal)
CPT/HCPCS: 99213

== ENCOUNTER → 2025-11-04 10:11 | Outpatient (BNV) | payer OTHER, SELFPAY | PROVIDERS: PCP Student in an Organized Health Care Education/Training Program; Visit Provider Radiology Diagnostic Radiology | DX: M51.369 Other intervertebral disc degeneration, lumbar region without mention of lumbar back pain or lower extremity pain (principal) | CPT/HCPCS: 72148 ==

== ENCOUNTER 2025-11-04 10:13 | Outpatient (REF) | payer OTHER, SELFPAY ==
--- NOTE | ~2025-11-04 | MR_ITS ---
CLINICAL HISTORY: M51.36 - Other intervertebral disc degeneration, lumbar region MR of the lumbar spine without contrast Comparison: None Findings: Normal alignment. Mild amount of Modic type 1 change at L5/S1 greatest to the right of midline. Otherwise normal marrow signal. No cord expansion or abnormal signal intensity. The conus medullaris terminates at L2, which is the lower limit of normal. The cauda equina is unremarkable. L1/L2: No disc herniation. No facet joint or ligamentum flavum hypertrophy. No central canal stenosis. No lateral recess stenosis. No foraminal stenosis. L2/L3: No disc herniation. Mild facet joint and ligamentum flavum hypertrophy. Mild central canal stenosis. No lateral recess stenosis. No foraminal stenosis. L3/L4: 2 mm broad-based disc bulge. Mild facet joint and ligamentum flavum hypertrophy. Mild central canal stenosis. Mild bilateral lateral recess stenosis. No foraminal stenosis. L4/L5: 4 mm broad-based disc bulge with annular fissure. Mild facet joint and ligamentum flavum hypertrophy. Mild central canal stenosis. Mild bilateral lateral recess stenosis. No foraminal stenosis. L5/S1: Disc desiccation with a 4 mm left paracentral disc bulge. [id number] facet joint and ligamentum flavum hypertrophy. Mild central canal stenosis. No right and severe left lateral recess stenosis. No foraminal stenosis. Impression: Multilevel degenerative change, detailed above. The patient's symptoms are likely attributable to a left paracentral disc bulge at L5/S1. This document has been electronically signed by: Mary Murillo MD on 11/06/2025 21:56:45
--- OUTSIDE RECORDS SUMMARY | 2025-11-04 10:17 | XMS_ITS | Encounter Summary ---
Author Organization [employer] Address [address] [place] [address] Care Team Providers Care Six Horse Hitch Driver Name Role Phone Yi Thompson MD Primary Care Pro vider Reason for Visit * Reason Comments Med Change Request Encounter Details Date Type Department Care Team ([facility] st Contact Info) Description 11/11/2023 Refill [facility] [address] [place] [address] [facility] [address] [place] [address] Viral upper respiratory illness Social History Tobacco [...] Description 02/09/2026 1:00 PM EDT Office Visit [facility] MEDICINE [address] [place] [address] Yi Thompson MD [address] [place] [phone] documented as of this encounter Visit Diagnoses Diagnosis Viral upper respiratory illness documented in this encounter Care Teams Six Horse Hitch Driver Relationship Specialty Start Date End Date Yi Thompson MD [address] [place] [phone] PCP - General Internal Medicine 08/20/23 documented as of this encounter
--- OUTSIDE RECORDS SUMMARY | 2025-11-04 10:17 | XMS_ITS | Encounter Summary ---
Author Organization [employer] Address [address] [place] [address] Care Team Providers Care Claim Manager Name Role Phone Yi Thompson MD Primary Care Pro vider Reason for Visit * Reason Onset Date Comments Call Back Request 04/25/2025 Encounter Details Date Type Department Care Team ([facility] Contact Info) Description 04/25/2025 Telephone [facility] [address] [place] [address] Yi Thompson MD [address] [place] [address] Call Back Request Social History Tobacco Use [...] PM EDT Telephone call from Norah at [facility] Physical Therapy Department: Norah, the Websphere AdministratorUpholstery Technician, informed that a referral has been received for the patient. However, the physical therapy provider would like to speak directly with the referring provider--not nursing staff--regarding the referral. When calling [facility] Physical Therapy at [phone], ask for Norah. She will transfer the call to the appropriate provider, as there is no direct line available. documented in this encounter Plan of Treatment Upcoming Encounters Date Type Department Care Team (Late st Contact Info) Description 02/09/2026 1:00 PM EDT Office Visit [facility] [address] [place] [address] Yi Thompson MD [address] [place] [address] documented as of this encounter [...] documented as of this encounter Care Teams Claim Manager Relationship Specialty Start Date End Date Yi Thompson MD [address] [place] [phone] PCP - General Internal Medicine 08/20/23 documented as of this encounter
--- OUTSIDE RECORDS SUMMARY | 2025-11-04 10:17 | XMS_ITS | Clinical Summary ---
Author Organization [employer] Address [address] [place] [address] 7 [place] [address] Care Team Providers Care Outdoor Guide Name Role Phone Yi Thompson MD [...] returns from [facility] in January. Dysphagia 01/13/2024 Microcytosis 01/13/2024 Pain [...] 09/17/2023 Forgetfulness 04/15/2023 Overview (08/20/2023): Seen at [facility] on 07/15/2020 for right sided facial [...] improve. 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 04/09/2023 04/15/2023 Thyroid cancer ([facility] 01/04/2019 Multiple joint pain 09/03/2018 04/15/20 23 Calcaneal spur 08/05/2018 09/17/2023 Gastroesophageal reflux disease 05/01/2014 04/15/2023 Encounters Date Type Department Care Team Description 11/02/2025 Orders Only GENERIC EXTERNAL DATA DEPARTMENT Provider, Generic External Data 10/30/2025 Orders Only GENERIC EXTERNAL DATA DEPARTMENT Provider, Generic External Data 10/25/2025 Refill [facility] [address] [place] [address] Yi Thompson MD 10/16/2025 Orders Only [address] [address] Yi Thompson MD Breast pain, left (Primary Dx) 10/10/2025 9:15 AM EST Office Visit [address] [address] Yi Thompson MD Rib pain (Primary Dx); Type 2 diabetes mellitus without complication, without long-term current use of insulin (HCC); Hypertension, unspecified type; Health care maintenance; Forgetfulness; Complex regional pain syndrome type 1 of both upper extremities; Costochondritis; Interstitial cystitis 10/10/2025 Travel 10/09/[address] [address] Yi Thompson MD chart prep 10/06/2025 Results Follow-Up [address] [address] Yi Thompson MD Albumin, Random Urine W/Creatinine, CBC auto differential, Chlamydia/Trichomona s/Neisseria gonorrhoeae, PCR, Urine, Additional followed-up results: 14 10/05/2025 Orders Only [address] [address] Yi Thompson MD Health care maintenance (Primary Dx) 10/05/[address] [address] Yi Thompson MD Lab Orders 10/02/2025 Patient Outreach [address] [address] Yi Thompson MD Pre-visit Planning (SDOH screening was completed on 04/06/2025) 09/27/2025 Refill [facility] [address] [place] [address] [phone] Yi Thompson MD 09/21/[address] [address] Yi Thompson MD Type 2 diabetes mellitus without complication, without long-term current use of insulin (HCC) 08/25/2025 Orders Only GENERIC EXTERNAL DATA DEPARTMENT Provider, Generic External Data 08/23/2025 3:30 PM EDT Immunization [facility] [address] [place] [address] Kaitlynn Faulkner RN Encounter for immunization 08/23/2025 Travel 08/16/2025 11:15 AM EDT Office Visit [facility] [address] [place] [address] Tere Thompson NP Paronychia of finger of right hand (Primary Dx) 08/16/2025 Travel 08/15/2025 Telephone [facility] [address] [place] [address] Yi Thompson MD Nurse Triage from Last [...] Upcoming Encounters Date Type Department Care Team ([facility] st Contact Info) Description 02/09/2026 1:00 PM EDT Office Visit [facility] [address] [place] [address] Yi Thompson MD [address] [place], [place] [phone] Health Maintenance Due Date Last Done Comments [...] Procedure Name Priority Date/Time Associated Diagnosis Comments THYROGLOBULIN ANTIBODIES Routine 11/02/2025 10:55 AM EST THYROGLOBULIN, LC/MS/MS Routine 11/02/20 10:55 AM EST TSH Routine 11/02/2025 10:55 AM EST T4, [...] Stimulating Hormone 4.99(H) 0.32 - 4.0 uIU/mL [facility] Comment:Note: A sustained TS H level above 2.5 uIU/mL may warrant further investigation. TSH 3rd Generation ([facility]) 11/02/2025 10:5 5 AM EST 11/02/2025 10:55 AM EST us Generic External Data Provider LAB BLOOD ORDERAB LES Final Result [facility] [address] [place] [phone] * T4, Free (11/02/2025 10:55 AM EST) Only the most recent of2 resultswithin the time period is included. Free T4 (Free Thyroxine) 1.35 0.71 - 1.85 ng/dL [facility] 11/02/2025 10:5 5 AM EST 11/02/2025 10:55 AM EST us Generic External Data Provider LAB BLOOD ORDERAB LES Final Result Performing Organization Address [facility]/ZIP Co de Phone Number [facility] [address] [place] [phone] * Vitamin B12 (Cobalamin) and Folate Panel, Serum (10/30/2025 12:31 PM EST) Only the most recent of2 resultswithin the time period is included. Vitamin B12 355 200 - 900 pg/mL [facility] Comment:NORMAL 200-900 PG/ML INDETERMINATE 160-199 PG/ML DEFICIENT < 160 PG/ML Folate 11.2 > or = 4.0 ng/mL [facility] Comment:Reference Values:> o r [...] Final Result Performing Organization Address [facility] Co de Phone Number [facility] [address] [place] [phone] * Magnesium (10/30/2025 12:31 PM EST) Magnesium 1.7 1.6 - 2.6 mg/dL [facility] 10/30/2025 12:3 1 PM EST 10/30/2025 12:31 PM EST us Generic External Data Provider LAB BLOOD ORDERAB LES Final Result Performing Organization Address City/[facility]/ZIP Co de Phone Number [facility] [address] [place] [phone] * XR Ribs 3 Views Left w/ Chest (10/16/2025 12:25 PM EST) Anatomical Region Laterality Modality Radiographic Criss ging 10/16/2025 12:2 5 PM EST Narrative 10/16/2025 1:10 PM EST [address] [address] XRay Report Signed Patient: Sapna Herzog MR#: [id number] : 1960 Acct:[id number] Age/Sex: 64 / F ADM Date: 10/16/25 [facility] Dr: Yi Cleary MD Ordering Physician: Yi Thompson MD Date of Service: 10/16/25 Procedure(s): XR ribs LT min 3V w CXR1V Accession Number(s): [id number] cc: Yi Thompson MD Reason for Exam: [...] 10/16/25 1307 DD/ 1225 TD/TT: 10/16/25 1233 Carbide Operator: Procedure Note Donotuseinterpreter, Image - 10/16/[address] [address] XRay Report Signed Patient: Sapna Herzog CMR#: [id number] : 9Acct:[id number] Age/Sex: 64 / FADM Date: 10/16/25 Loc: HO.[facility] Attending Dr: Yi Cleary MD Ordering Physician: Yi Thompson MD Date of Service: 10/16/25 Procedure(s): XR ribs LT min 3V w CXR1V Accession Number(s): [id number] cc: Yi Thompson MD Reason for Exam: [...] 10/16/25 1307 DD/ 1225 TD/TT: 10/16/25 1233 Carbide Operator: Yi Cleary MD IMG XR PROCEDURES Final Result * Chlamydia/Trichomonas/Neisseria gonorrhoeae, PCR, Urine (10/06/2025 9:30 AM EST) [facility] CT PCR, Urine NOT DETECTED Not Detect. [facility] Comment:A not detected test result [...] NG PCR, Urine NOT DETECTED Not Detect. [facility] Comment:A not detected test result [...] MD LAB URINE ORDERAB LES Final Result [facility] [address] [place] [phone] * Albumin, Random Urine W/Creatinine (10/06/2025 9:30 AM EST) Creatinine, Urine 51.27 mg/dL [facility] Microalbumin Urine <5.0 mg/L [facility] Microalbum Creatinine Ratio Ur TNP <30 ug/mg cr [facility] Comment:Unable to calculate albumin/creatinine ratio due to lowmicroalbumin or creatinine result. Urine (Urine, Random) 10/06/2025 9:30 AM EST 10/06/2025 10:40 AM EST Yi Cleary MD LAB URINE ORDERAB LES Final Result [facility] [address] [place] [phone] * Syphilis Screen (10/06/2025 9:05 AM EST) Syphilis Screen Nonreactive Nonreactive [facility] Blood 10/06/2025 9:05 AM EST 10/06/2025 9:06 AM EST Yi Cleary MD LAB BLOOD ORDERAB LES Final Result Performing Organization Address [facility] Co de Phone Number [facility] [address] [place] [phone] * Vitamin D, 25-Hydroxy, Total, Immunoassay (10/06/2025 9:05 AM EST) Vitamin D 25-OH Total 31.8 >30 ng/mL [facility] Comment: Health Based Reference Values*< 20 ng/mL Xrbvoevwu50-64 ng/mL Insufficient> 30 ng/mL Sufficient*Adriana FERNANDEZ. N [...] MD LAB BLOOD ORDERAB LES Final Result [facility] [address] [place] [address] [phone] * (ABNORMAL) CBC auto differential (10/06/2025 9:05 AM EST) White Blood Count 6.5 4.8 - 10.8 X10*3/uL [facility] Red Blood Count 4.49 4.20 - 5.50 X10*6/uL [facility] Hemoglobin 10.5(L) 12.0 - 16.0 g/dl [facility] Hematocrit 34.0(L) 37.0 - 47.0 % [facility] Mean Corpuscular Volume 75.7(L) 80.0 - 98.0 fL [facility] Mean Corpuscular Hemoglobin 23.4(L) 27.0 - 33.0 pg [facility] Mean Corpuscular HGB Conc 30.9(L) 31.0 - 35.0 g/dl [facility] Red Cell Distribution Width 14.3 11.0 - 16.0 % [facility] Platelet Count 334 160 - 400 X10*3/uL [facility] Mean Platelet Volume 10.0 9.4 - 12.3 fL [facility] Neutrophils Percent Auto 62.0 45 - 73 % [facility] Imm Gran Pct Auto 0.3 0.0 - 0.4 % [facility] Lymphocytes Percent Auto 26.9 20 - 40 % [facility] Monocytes Percent Auto 6.8 2 - 11 % [facility] Eosinophils Percent Auto 2.6 0 - 4 % [facility] Basophils Percent Auto 1.4 0 - 2 % [facility] NRBC Pct Auto 0.0 0.0 - 0.2 /100WBC [facility] Neutrophils Absolute Auto 4.0 2.0 - 8.3 x10*3/uL [facility] Imm Gran Abs Auto 0.02 0.00 - 0.03 X10*3/uL [facility] Lymphocytes Absolute Auto 1.8 1.2 - 4.9 X10*3/uL [facility] Monocytes Absolute Auto 0.4 0.1 - 1.2 X10*3/uL [facility] Eosinophils Absolute Auto 0.2 0.0 - 0.4 X10*3/uL [facility] Basophils Absolute Auto 0.1 0.0 - 0.2 X10*3/uL [facility] NRBC Abs Auto 0.000 0.0 - 0.012 X10*3/uL [facility] Blood Venous blood specimen / Unknown 10/06/2025 9:05 AM EST 10/06/2025 9:06 AM EST Yi Cleary MD LAB BLOOD ORDERAB LES Final Result Performing Organization Address [facility]/ZIP Co de Phone Number [facility] [address] [place] [phone] * Hepatitis C Antibody with Reflex to HCV, RNA, Quantitative, Real-Time PCR (10/06/2025 9:05 AM EST) Pathologist [facility] Hepatitis C Antibody Nonreactive Nonreactive [facility] Comment:Antibodies to HCV no t detected; does not exclude early acuteHCV infection. Blood Venous blood specimen / Unknown 10/06/2025 9:05 AM EST 10/06/2025 9:06 AM EST Yi Cleary MD LAB BLOOD ORDERAB LES Final Result Performing Organization Address [facility] Co de Phone Number [facility] [address] [place] [phone] * (ABNORMAL) Iron And Total Iron Binding Capacity (10/06/2025 9:05 AM EST) Pathologist [facility] Iron 28(L) 30 - 160 mcg/dL [facility] Total Iron Binding Capacity 385 228 - 428 mcg/dL [facility] Percent Iron Saturation 7(L) 15 - 50 % [facility] Unsaturated Iron Binding 357 ug/dL [facility] Blood Venous blood specimen / Unknown 10/06/2025 9:05 AM EST 10/06/2025 9:06 AM EST Yi Cleary MD LAB BLOOD ORDERAB LES Final Result Performing Organization Address City/[facility]/ZIP Co de Phone Number [facility] [address] [place] [phone] * Hepatitis B surface antigen, EIA (10/06/2025 9:05 AM EST) Pathologist [facility] Hepatitis B Surface Ag Negative Negative [facility] Blood Venous blood specimen / Unknown 10/06/2025 9:05 AM EST 10/06/2025 9:06 AM EST Yi Cleary MD LAB BLOOD ORDERAB LES Final Result Performing Organization Address City/[facility]/ZIP Co de Phone Number [facility] [address] [place] [phone] * HIV-1/2 Antigen and Antibodies, Fourth Generation, with Reflexes (10/06/2025 9:05 AM EST) Pathologist [facility] HIV AB/AG Nonreactive Nonreactive [facility] Comment:HIV-1 p24 Ag and/or HIV-1/HIV-2 Ab not detected.A test result that is nonreactive does not exclude thepossibility of exposure to or infection with HIV-1 and/orHIV-2. Nonreactive results in this assay for individualswith prior exposure to HIV-1 and/or HIV-2 may be due toantigen and antibody levels that are below the limit ofdetection of this assay.[employer] HIV Ag/Ab Combo assay result andsupplemental assay [...] Address City/[facility]/ZIP Co de Phone Number [facility] [address] [place] [phone] * (ABNORMAL) Hemoglobin A1c (10/06/2025 9:05 AM EST) Hemoglobin A1c 7.3(H) <6.0 % [facility] Comment:Hemoglobin A1C Refer ence Range Adults: 4.8 - 6.0 % Non diabetic: < 6.0 % Goal: < 7.0 %Additional Action Suggested: > 8.0 %Note: Hemoglobin A1c results are invalid for patients with abnormal amounts of HbF. Blood transfusions may impact the HbA1c concentration in the patient sample. Estimated Average Glucose 163 mg/dL [facility] Comment:eAG = Estimated ave rage glucose which is %A1C expressed asaverage glucose, using the formula of the I7I-GflrkveIyauqzg Glucose study (ADAG), Diabetes Care, Vol.31,#8,Jun. 2007 Blood Venous blood specimen / Unknown 10/06/2025 9:05 AM EST 10/06/2025 9:06 AM EST us Yi Cleary MD LAB BLOOD ORDERAB LES Final Result Performing Organization Address City/[facility]/ZIP Co de Phone Number [facility] [address] [place] [phone] * (ABNORMAL) Ferritin (10/06/2025 9:05 AM EST) Ferritin 7(L) 10 - 250 ng/mL [facility] Blood Venous blood specimen / Unknown 10/06/2025 9:05 AM EST 10/06/2025 9:06 AM EST us Yi Cleary MD LAB BLOOD ORDERAB LES Final Result [facility] [address] [place] [phone] [phone] * (ABNORMAL) Lipid Panel, Standard (10/06/2025 9:05 AM EST) Triglycerides 169(H) <150 mg/dL [facility] Comment:Desirable Triglyceri de: less than 150 mg/dLBorderline High Triglyceride 150-199 mg/dLHigh Triglyceride: 200-499 mg/dLVery High Triglyceride: greater than or equal to 5OO mg/dL Cholesterol 227(H) <200 mg/dL [facility] Comment:Desirable Cholestero l: less than 200 mg/dLBorderline High Cholesterol: 200-239 mg/dLHigh Cholesterol: greater than 239 mg/dL LDL Cholesterol Calculated 150(H) <100 mg/dL [facility] Comment:Desirable LDL: less than 100 mg/dLNear Optimal/Above Optimal LDL: 110- 129 mg/dLBorderline High LDL: 130-159 mg/dLHigh LDL: 160-189 mg/dLVery High LDL: greater than or equal to 190 mg/dL HDL Cholesterol 44 >40 mg/dL [facility] Comment:Desirable HDL: great er than 40 mg/dL Note: This HDL assay may give artificially low results in patients with liver disease. Blood Venous blood specimen / Unknown 10/06/2025 9:05 AM EST 10/06/2025 9:06 AM EST us Yi Cleary MD LAB BLOOD ORDERAB LES Final Result [facility] [address] [place] [phone] [phone] * (ABNORMAL) Comprehensive Metabolic Panel (10/06/2025 9:05 AM EST) Sodium 140 135 - 145 mmol/L [facility] Potassium 4.3 3.3 - 5.1 mmol/L [facility] Chloride 105 96 - 108 mmol/L [facility] Carbon Dioxide 26 22 - 29 mmol/L [facility] Anion Gap 13 12 - 20 [facility] Urea Nitrogen (BUN) 18(H) 9 - 16 mg/dL [facility] Creatinine, Serum 0.69 0.5 - 1.4 mg/dL [facility] Estimated Glomerular Filt Rate >60 [facility] Comment:Chronic Kidney Disea se: Estimated GFR < 60 mL/min/1.75m8Halrll Kidney Disease: Estimated GFR < 15 mL/min/1.73m2 Glucose 128(H) 60 - 115 mg/dL [facility] Calcium 9.2 8.4 - 10.2 mg/dL [facility] Bilirubin, Total 0.3 0.0 - 1.0 mg/dL [facility] Aspartate Amino Transferase 27 5 - 31 U/L [facility] Alanine Aminotransferase 26 0 - 31 U/L [facility] Total Protein 8.1(H) 6.5 - 8.0 g/dL [facility] Albumin Level 4.9 3.5 - 5.0 g/dL [facility] Alkaline Phosphatase 97 39 - 117 U/L [facility] Blood Venous blood specimen / Unknown 10/06/2025 9:05 AM EST 10/06/2025 9:06 AM EST us Yi Cleary MD LAB BLOOD ORDERAB LES Final Result [facility] [address] [place] [phone] * Hematoxylin and Eosin Stain (08/25/2025 2:56 PM EDT) 08/25/2025 2:56 PM EDT 08/29/2025 9:35 AM EDT Narrative [facility] - 08/30/2025 3:56 PM EDT ----- ------- Name: Sapna Herzog Age/Sex: 64/F : 1960 Unit#: [id number] Attend Dr: Elizabeth Jaime MD Re08/25/25 Status: [facility] Location: [facility] Disch: ----- ------- SPEC : [id number] RECD: 08/29/25 STATUS: OCTAVIANOSonya ZHAO NUM: [id number] JOSÉ: 08/25/[address] [facility] [address]: Elizabeth Jaime MD ENTERED: 08/29/25 [...] microscopic examination, multiple pieces in cassette B. ([facility]) IHC S/NG Disclaimer NOTE: Unless otherwise stated, all tissue is formalin-fixed and paraffin-embedded. Some or all of the immunohistochemical tests reported herein may have been developed and their performance characteristics determined by [facility]. They have not been cleared or approved by the U.S. Food and Drug Administration (FDA). However, the FDA has determined that such clearance or approval is not necessary. This laboratory is certified under the Clinical Laboratory Improvement Amendments of 1988 (CLIA) as qualified CONTINUED ON NEXT PAGE ----- ------- Name: Fany GarciaSapna Age/Sex: 64/F : 1960 Unit#: [id number] Attend Dr: Elizabeth Jaime MD Re08/25/25 Status: [facility] Location: [facility] Disch: ----- ------- SPEC : [id number] RECD: 08/29/25 STATUS: LORENA ZHAO NUM: [id number] JOSÉ: 08/25/251456 [facility] DR: Elizabeth Jaime MD ENTERED: 08/29/25 SP TYPE: Surgical OTHR DR: Yi Thompson MD ORDERED: HE Stain/6, Gross Micro L4/2 IHC S/NG Disclaimer (Continued) to perform high complexity clinical laboratory testing. Copies To: Yi Thompson MD [facility] [address] [place], [place] [phone] Elizabeth Jaime MD [facility] [address] [place] [address] [email or web address] [place] ----- ------- Signed (signature on file) Weston Swartz MD 08/30/25 1556 ----- ------- END OF REPORT Generic External Data Provider LAB BLOOD ORDERAB LES Final Result [facility] [address] [place] [address] [phone] * (ABNORMAL) Glucose, Whole Blood (08/25/2025 1:36 PM EDT) Glucose, Whole Blood 129(H) 60 - 115 mg/dL [facility] Comment:METER #: [id number] 08/25/2025 1:36 PM EDT 08/25/2025 1:40 PM EDT Generic External Data Provider LAB BLOOD ORDERAB LES Final Result [facility] [address] [place] [phone] [phone] * Fecal Globin By Immunochemistry (05/26/2025 12:00 AM EDT) Fecal Globin By Immunochemistry SEE NOTE [facility] Comment: FECAL GLOBIN BY IMMUNOCHEMISTRY Micro Number: [id number] Test Status: Final Specimen Source: Insure (tm) [...] STOOLS ORDERABLES Final Result Performing Organization Address City/[facility] Co de Phone Number [facility] [address], [place] [address] [facility] [address] [place] [phone] * BI US Breast Limited Left (02/07/2025 10:44 AM EDT) Anatomical Region Laterality Modality Breast Left Ultrasound 02/07/2025 10:4 4 AM EDT Narrative 02/07/2025 11:07 AM EDT [facility] [address] [place] [address] Ultrasound Report Signed Patient: Sapna Herzog MR#: M [id number] : 1960 Acct:[id number] Age/Sex: 64 / F ADM Date: 02/07/25 Loc: HO.MAMMO Attending Dr: Peter Tate CNM Ordering Physician: PETER TATE CNM Date of Service: 02/07/25 Procedure(s): US breast LT limited mamm only Accession Number(s): [id number] cc: Yi Thompson MD; PETER TATE CNM [...] 02/07/25 1104 DD/ 1044 TD/TT: 02/07/25 1058 Carbide Operator: Procedure Note Donotuseinterpreter, Image - [facility]07/[facility] [address] [place] [address] Ultrasound Report Signed Patient: Sapna Herzog CMR#: M [id number] : 9Acct:[id number] Age/Sex: 64 / FADM Date: 02/07/25 Loc: HO.MAMMO Attending Dr: Peter Tate CNM Ordering Physician: PETER TATE CNM Date of Service: 02/07/25 Procedure(s): US breast LT limited mamm only Accession Number(s): [id number] cc: Yi Thompson MD; PETER TATE CNM [...] 02/07/25 1104 DD/ 1044 TD/TT: 02/07/25 1058 Carbide Operator: Peter Tate CNM IMG US PROCEDURES Edited Result - Final * Hm Colonoscopy (11/03/2024 6:36 PM EST) us Historical Provider MD HEALTH MAINTENANCE Final Result [...] along with historic and current clinical information. Director Supplier Quality : SEE COMMENT [facility] Comment: [place], CT(ASCP) CT screening location: [place] [address] Interpretation/R esult: Negative for intraepithelial lesion or [...] Final Result [facility] [address] * HPV mRNA E6/E7 (10/25/2020 10:02 AM EST) HPV nRNA E6/E7 Not Detected Not Detected [facility] Comment: This test was performed using the APTIMA HPV Assay ([employer] This assay detects E6/E7 viral messenger RNA (mRNA) from 14 high-risk HPV types (16,18,31,33,35,39,45,51,52,56,58,59,66,68). The analytical performance characteristics of this assay have been determined by [facility]. The modifications have not been cleared or approved by the FDA. This assay has been validated pursuant to the CLIA regulations and is used for clinical purposes. 10/25/2020 10:0 2 AM EST us Peter Tate CNM LAB BLOOD ORDERABLES Cammy donny Result [facility] [address] from Last 3 Months or Most [...] 10/16/2025 Patient has diabetic neuropathy 10/16/2025 Insurance [employer] Care Teams Outdoor Guide Relationship Specialty Start Date End Date Yi Thompson MD [address] [place] [phone] PCP - General Internal Medicine 08/20/23
--- OUTSIDE RECORDS SUMMARY | 2025-11-04 10:17 | XMS_ITS | Encounter Summary ---
Author Organization [employer] Address [address] [place] [address] Care Team Providers Care Supervisor Graphite Name Role Phone Yi Thompson MD Primary Care Pro vider Reason for Visit * Reason Comments Med Refill Encounter Details Date Type Department Care Team ([facility] st Contact Info) Description 06/02/2024 Refill [facility] [address] [place] [address] Yi Thompson MD [address] [place] [address] Social History Tobacco Use Types Packs/Day Years [...] 1:00 PM EDT Office Visit [facility] [address] [place] [phone] Yi Thompson MD [address] [place] [phone] documented as of this encounter Goals Goal [...] documented as of this encounter Care Teams Supervisor Graphite Relationship Specialty Start Date End Date Yi Thompson MD [address] [place] [phone] PCP - General Internal Medicine 08/20/23 documented as of this encounter
--- OUTSIDE RECORDS SUMMARY | 2025-11-04 10:17 | XMS_ITS | Encounter Summary ---
Author Organization [employer] Address [address] [place] [address] 7 [place] [address] Care Team Providers Care Director Of Manufacturing Operations Name Role Phone Yi Thompson MD Primary [...] Description 02/09/2026 1:00 PM EDT Office Visit [facility] [address] [place] [address] Yi Thompson MD [address] [place] [address] Pending Results Name Type Priority Associated Diagnoses Date /Time Thyroglobulin, LC/MS/MS Lab Routine 1 01/03/2025 10:55 AM EST Thyroglobulin Antibodies Lab Routine 11/02/2025 10:55 AM EST documented as of this encounter Goals Goal [...] Procedure Name Priority Date/Time Associated Diagnosis Comments THYROGLOBULIN, LC/MS/MS Routine 11/02/2025 10:55 AM EST THYROGLOBULIN ANTIBODIES Routine 11/02/2025 10:55 AM EST TSH Routine 11/02/2025 10:55 AM EST T4, FREE Routine 11/02/2025 10:55 AM EST documented in this encounter Results * (ABNORMAL) TSH (11/02/2025 10:55 AM EST) Thyroid Stimulating Hormone 4.99(H) 0.32 - 4.0 uIU/mL [facility] Comment:Note: A sustained TS H level above 2.5 uIU/mL may warrant further investigation. TSH 3rd Generation ([facility]) 11/02/2025 10:5 5 AM EST 11/02/2025 10:55 AM EST us Generic External Data Provider LAB BLOOD ORDERAB LES Final Result Performing Organization Address City/[facility]/ZIP Co de Phone Number [facility] [address] [place] [phone] * T4, Free (11/02/2025 10:55 AM EST) Free T4 (Free Thyroxine) 1.35 0.71 - 1.85 ng/dL [facility] 11/02/2025 10:5 5 AM EST 11/02/2025 10:55 AM EST us Generic External Data Provider LAB BLOOD ORDERAB LES Final Result Performing Organization Address [facility] Co de Phone Number [facility] [address] [place] [phone] documented in this encounter Visit Diagnoses [...] as of this encounter Care Teams Director Of Manufacturing Operations Relationship Specialty Start Date End Date Yi Thompson MD [address] [place] [address] PCP - General Internal Medicine 08/20/23 documented as of this encounter
--- OUTSIDE RECORDS SUMMARY | 2025-11-04 10:17 | XMS_ITS | Data Portability ---
Author Organization [place] - [facility], Allergy Address [address] [address] Assessment No assessment recorded. Plan of Treatment [...] ast No observ ation record ed. [facility] Radiology ([facility]) [address] [facility] [address], [place], [address], 07/12/2024 17:28:21 07/12/20 24 03/07/2024 CT, neck, soft tissu e, w/ contr ast No observ ation record ed. [email or web address] Not Available 06/17 14:31:41 Result Notes None [...] Available [facility] 4 03:27:19 Oropharyn geal dysphagia 19697884 Active 2023 CHANTEL MEYER MD [address] [address], [place], [address] , [facility] 4 14:16:46 Acquired vocal cord palsy 701526169 Active 2023 CHANTEL MEYER MD [address] [place] [address], [place], [address] , [facility] 4 14:27:26 Problem Notes None recorded. Procedures Surgical History Date Name Laterality Status Provider Name and Address Organization Details Recorded Time 07/12/2024 FFL_RE completed CHANTEL MEYER MD [address] [place] [address],[address] [address], [place], [address], [facility] 07/12/2024 14:20:56 Imaging Results None recorded. Procedure Notes None recorded. Medical Equipment None Reported. Allergies Allergen ID Allergen Name Allergen Category Reaction Reaction Severity Criticality Documentation Date Start Date Code Code System Note Provider Name and Address Organization Details Recorded Time 40976 Product containin g penicilli n (product) medicatio n other Not available Not available 03/29/2024 83764 8001 SNOMED React ion: unkno wn, unspe cifie d;; Not Available [facility] 4 01:03:20 Medications Name Sig Start Date Stop Date Status Note LastModified by Organization Details LastModified Time medbox status USE DIRECTED active Not Available Not Available No t Available freestyle lite test strips strp active Not Available Not Available Not Available losartan 50 mg tablet active Medicati on ID: 65258 Br and Name: losartan Send Method: E-Prescr [...] 40 mg tablet active Medicati on ID: 22070 Br and Name: lovastat in Send Method: E-Prescr ibed Sub s Allowed: subs OK Medic ationGen ericName : lovastat in Not Available Not Available Not Available amlodipin e 5 mg tablet active Medicati on ID: 05962 Br and Name: amlodipi ne Send Method: [...] Not Available Not Available No t Available Lesage Thyroid 15 mg tablet active Medicati on ID: 66229 Br and Name: Lesage Thyroid Send Method: E-Prescr ibed Sub s Allowed: subs OK Medic ationGen ericName : Lesage Thyroid Not Available Not Available Not Available amitripty line 25 mg tablet active Medicati on ID: 20468 Br and Name: amitript yline Se nd Method: E-Prescr ibed Sub s Allowed: subs OK Medic ationGen ericName : amitript yline Not Available Not Available Not Available Protonix 40 mg intraveno us solution active Medicati on ID: 12083 Br and Name: Protonix Send Method: E-Prescr [...] 150 mg capsule active Medicati on ID: 14459 Br and Name: ranitidi ne HCl Send Method: E-Prescr ibed Sub s Allowed: subs OK Medic ationGen ericName : ranitidi ne HCl Not Available Not Available Not Available hydrochlo rothiazid e 25 mg tablet active Medicati on ID: 64201 Br and Name: hydrochl orothiaz ro Send [...] 17 gram/dose oral powder USE DIRECTED BY [facility] active Not Available Not Available No [...] release 24hr (osmotic) active Medicati on ID: 60699 Br and Name: metformi n Send Method: [...] tablet,de layed release active Medicati on ID: 78219 Du ration Value: 30 Brand Name: omeprazo [...] Updated DateTime 07/12/2024 165.1 cm 27.3 kg/m2 80963.15 g [place] - [facility] 07/12/2024 14:07:22 Social History None recorded. Functional Status None recorded. Mental Status None recorded. Family History Nothing Reported. Medical History No medical history recorded. Gynecological HistoryNo gynecological history recorded. Obstetrics History GPAL:G 0 P 0 0 0 0 Past Encounters Encounter ID Performer Location Encounter Start Date Encounter Closed Date Diagnosis/Indication Diagnosis SNOMED-CT Code Diagnosis ICD10 Code Diagnosis IMO Codes Diagnosis Note [id number] CHANTEL MEYER MD [facility] [address] [address] 07/12/2024 13:49:31 07/12/2024 16:53:30 Oropharyngeal dysphagia 59108429 R13.12 Likely due to esophageal dysmotilit y. VC paralysis is a factor but doesn't explain her dysphagia to solids. I recommend she discuss GI referral with her PCP. I would be glad to see her as needed. I personally reviewed her imaging reports. Acquired v ocal cord palsy 442685675 J38.00 Likely from initial surgery 14 years [...] 07/12/2024 1 [facility] [id number] Giuseppe Rodriguez [id number] 07/12/2024 1 [facility] [id number] Giuseppe Rodriguez [id number] Notes Date Note Type [...] surgery. She had a swallow study at [facility]. She feels like food gets stuck. Has occasional choking with liquids. She has never smoked. She denies throat pain and SOB. I reviewed an Upper GI series which showed esophageal dysmotility. I also reviewed her CT neck with 02/2024 which showed possible right vocal cord paralysis. contrast CHANTEL MEYER MD [address] [place] [address], [place], [address], [facility] - [facility] 07/12/2024 14:28:36 OBGyn Episode No OBEpisode recorded.
--- OUTSIDE RECORDS SUMMARY | 2025-11-04 10:17 | XMS_ITS | Encounter Summary ---
Author Organization [employer] Address [address] [place] [address] Care Team Providers Care Margarine Churn Operator Name Role Phone Yi Thompson MD Primary Care Pro vider Reason for Visit * Reason Comments Med Refill Encounter Details Date Type Department Care Team ([facility] st Contact Info) Description 05/03/2024 Refill [facility] MEDICINE [address] [place] [address] Yi Thompson MD [address] [place] [address] Social History Tobacco Use Types Packs/Day Years [...] Description 02/09/2026 1:00 PM EDT Office Visit [facility]INE [address] [place] [address] Yi Thompson MD [address] [place] [address] documented as of this encounter Goals Goal [...] documented as of this encounter Care Teams Margarine Churn Operator Relationship Specialty Start Date End Date Yi Thompson MD [address] [place] [address] PCP - General Internal Medicine 08/20/23 documented as of this encounter
--- OUTSIDE RECORDS SUMMARY | 2025-11-04 10:17 | XMS_ITS | Encounter Summary ---
Author Organization [employer] Address [address] [place] [address] Care Team Providers Care Multiple Slide Operator Name Role Phone Yi Thompson MD Primary Care Pro vider Reason for Visit * Reason Comments Med Refill Encounter Details Date Type Department Care Team ([facility] st Contact Info) Description 09/12/2024 Refill [facility] [address] [place] [address] Yi Thompson MD 230 [place] [address] Type 2 diabetes mellitus without complication, without long-term current use of insulin ([facility]) Social History Tobacco Use Types Packs/Day Years [...] the past 12 months, has t he [employer], gas, oil or water company threatened [...] Description 02/09/2026 1:00 PM EDT Office Visit [facility] [address] [place] [address] Yi Thompson MD [address] [place] [address] documented as of this encounter Goals Goal [...] documented as of this encounter Care Teams Multiple Slide Operator Relationship Specialty Start Date End Date Yi Thompson MD [address] [place] [address] PCP - General Internal Medicine 08/20/23 documented as of this encounter
--- OUTSIDE RECORDS SUMMARY | 2025-11-04 10:17 | XMS_ITS | Encounter Summary ---
Author Organization [employer] Address [address] [place] [address] Care Team Providers Care Video Player Mechanic Name Role Phone Juliet Bird [facility] Primary Care Provider Yi Jessica MD Primary Care Pro vider Reason for Visit * Reason Comments Med Refill Encounter Details Date Type Department Care Team (Late Contact Info) Description 01/28/2023 Refill [facility] MEDICINE [address] [place], [place] [phone] [facility] 230 [place], [place] [phone] Primary hypertension Social History Tobacco Use Types [...] Description 02/09/2026 1:00 PM EDT Office Visit [facility] MED[facility]INE [address] [place], [place] [phone] Yi Thompson MD 230 [place], [place] [phone] documented as of this encounter Visit Diagnoses Diagnosis Primary hypertension Unspecified essential hypertension documented in this encounter Care Teams Video Player Mechanic Relationship Specialty Start Date End Date Juliet Bird FNP PCP - General Family Medicine 01/22/23 08/19/23 Yi Thompson MD [address] [place] [address] PCP - General Internal Medicine 08/20/23 documented as of this encounter
--- OUTSIDE RECORDS SUMMARY | 2025-11-04 10:17 | XMS_ITS | Encounter Summary ---
Author Organization [employer] Address [address] [place] [address] Care Team Providers Care Medical Detailist Name Role Phone Yi Thompson MD Primary Care Pro vider Reason for Visit * Reason Comments Med Refill Encounter Details Date Type Department Care Team ([facility] st Contact Info) Description 05/20/2024 Refill [facility] [address] [place] [address] Name, MD Ronny [address] [place] [address] Social History Tobacco Use Types Packs/Day Years [...] Description 02/09/2026 1:00 PM EDT Office Visit [facility] [address] [place] [address] Yi Thompson MD [address] [place] [address] documented as of this encounter Goals Goal [...] as of this encounter Care Teams Medical Detailist Relationship Specialty Start Date End Date Yi Thompson MD [address] [place] [address] PCP - General Internal Medicine 08/20/23 documented as of this encounter
--- OUTSIDE RECORDS SUMMARY | 2025-11-04 10:17 | XMS_ITS | Encounter Summary ---
Author Organization [employer] Address [address] [place] [address] Care Team Providers Care Software Configuration Manager Name Role Phone Juliet BirdP Primary Care Provider Yi Jessica MD Primary Care Pro vider Reason for Visit * Reason Comments Med Refill Encounter Details Date Type Department Care Team (Late Contact Info) Description 06/28/2023 Refill [facility] [address] [place] [address] Juliet Bird FNP Social History Tobacco Use [...] PM EDT Office Visit [facility] [address] [place] [address] [phone] Yi Thompson MD 230 [place], [place] [phone] documented as of this encounter Visit Diagnoses Not on filedocumented in this encounter Care Teams Software Configuration Manager Relationship Specialty Start Date End Date Juliet Bird FNP PCP - General Family Medicine 01/22/23 08/19/23 Yi Thompson MD [address] [place] [address] PCP - General Internal Medicine 08/20/23 documented as of this encounter
--- OUTSIDE RECORDS SUMMARY | 2025-11-04 10:17 | XMS_ITS | Encounter Summary ---
Author Organization [employer] Address [address] [place] [address] Care Team Providers Care Supervisor Industrial Arts Education Name Role Phone Yi Thompson MD Primary Care Pro vider Reason for Visit * Reason Comments Med Change Request Encounter Details Date Type Department Care Team ([facility] Contact Info) Description 03/15/2024 Refill [facility] MEDICINE 230 [place] [address] Leticia Plunkett, ANP 230 [place] [address] Sinus pressure Social History Tobacco Use Types [...] Description 02/09/2026 1:00 PM EDT Office Visit [facility]INE [address] [place] [address] Yi Thompson MD [address] [place] [address] documented as of this encounter Goals Goal [...] as of this encounter Care Teams Supervisor Industrial Arts Education Relationship Specialty Start Date End Date Yi Thompson MD [address] [place] [address] PCP - General Internal Medicine 08/20/23 documented as of this encounter
--- OUTSIDE RECORDS SUMMARY | 2025-11-04 10:17 | XMS_ITS | Encounter Summary ---
Author Organization [employer] Address [address] [place] [address] Care Team Providers Care Naphthol Soaping Machine Operator Name Role Phone Yi Thompson MD Primary Care Pro vider Reason for Visit * Reason Comments Med Change Request Encounter Details Date Type Department Care Team ([facility] st Contact Info) Description 11/08/[address] [facility] MEDICINE [address] [place] [address] [facility] 230 [place] [address] Viral upper respiratory illness Social History Tobacco [...] Description 02/09/2026 1:00 PM EDT Office Visit [facility] MEDICINE [address] [place] [address] [phone] Yi Thompson MD 230 [place] [address] documented as of this encounter Visit Diagnoses Diagnosis Viral upper respiratory illness documented in this encounter Care Teams Naphthol Soaping Machine Operator Relationship Specialty Start Date End Date Yi Thompson MD [address] [place] [address] [phone] PCP - General Internal Medicine 08/20/23 documented as of this encounter
--- OUTSIDE RECORDS SUMMARY | 2025-11-04 10:17 | XMS_ITS | Encounter Summary ---
Author Organization [employer] Address [address] [facility] [address] [address] Care Team Providers Care Upholstery Department Supervisor Name Role Phone Yi Thompson MD Primary Care Pro vider Reason for Visit * Reason Comments Med Refill Encounter Details Date Type Department Care Team ([facility] st Contact Info) Description 09/15/2023 Refill [facility] MEDICINE [address] [place] [address] Juliet Bird, MARY ELLEN Primary hypertension; Type 2 diabetes mellitus without complication, without long-term current use of insulin ([facility]) Social History Tobacco Use [...] 1:00 PM EDT Office Visit [facility] [address] [place] [address] Yi Thompson MD 230 [place], [place] [phone] documented as of this encounter Visit Diagnoses Diagnosis Primary hypertension Unspecified essential hypertension Type 2 diabetes mellitus without complication, without long-term current use of insulin (HCC) documented in this encounter Care Teams Upholstery Department Supervisor Relationship Specialty Start Date End Date Yi Thompson MD [address] [place] [address] [phone] PCP - General Internal Medicine 08/20/23 documented as of this encounter
--- OUTSIDE RECORDS SUMMARY | 2025-11-04 10:17 | XMS_ITS | Encounter Summary ---
Author Organization [employer] Address [address] [place] [address] Care Team Providers Care Custodian Supervisor Name Role Phone Yi Thompson MD Primary Care Pro vider Encounter Details Date Type Department Care Team ([facility] st Contact Info) Description 11/06/2024 Orders Only [facility] MED[facility]INE [address] [place] [address] Provider, MD Lux Social History Tobacco Use [...] Description 02/09/2026 1:00 PM EDT Office Visit [facility] [address] [place] [address] [phone] Yi Thompson MD [address] [place] [address] documented as of this encounter Goals Goal Patient Goal Type Associated Problems Recent Progress Patient-Stated? Author Blood Pressure < 140/90 Blood Pressure 108/68(2024 9:22 AM EST) No Jn Shah Hemoglobin A1c < 7 Result Component 7.3( 9:05 AM EST) No Jn hSah documented as of this [...] documented as of this encounter Care Teams Custodian Supervisor Relationship Specialty Start Date End Date Yi Thompson MD [address] [place] [address] PCP - General Internal Medicine 08/20/23 documented as of this encounter
--- OUTSIDE RECORDS SUMMARY | 2025-11-04 10:17 | XMS_ITS | Encounter Summary ---
Author Organization [employer] Address [address] [place] [address] Care Team Providers Care Civil Engineering Teacher Name Role Phone Yi Thompson MD Primary Care Pro vider Reason for Visit * Reason Onset Date Comments Nurse Triage 02/15/2024 Encounter Details Date Type Department Care Team ([facility] st Contact Info) Description 02/15/2024 Telephone [facility] 230 [place] [address] Yi Thompson MD [address] [place] [address] Nurse Triage Social History Tobacco Use Types [...] 02/15/2024 12:44 PM EDT Triage call with [place] Assistant Athletic Trainer ID [id number] Pt reports headache frontal and back of [...] 400pm. Pt is advised to come to [facility] which is open till 8pm [...] Tingling sensation The caller accepted this outcome Slovak speaker documented in this encounter Plan of Treatment Upcoming Encounters Date Type Department Care Team (Late st Contact Info) Description 02/09/2026 1:00 PM EDT Office Visit [facility] [address] [place] [address] Yi Thompson MD [address] [place] [address] [phone] documented as of this encounter Visit Diagnoses Not on filedocumented in this encounter Additional Health Concerns Assessment Noted Time PHQ-9 Depression Total Score: 1 01/13/20 24 12:16 PM EST documented as of this encounter Care Teams Civil Engineering Teacher Relationship Specialty Start Date End Date Yi Thompson MD [address] [place] [address] [phone] PCP - General Internal Medicine 08/20/23 documented as of this encounter
--- OUTSIDE RECORDS SUMMARY | 2025-11-04 10:17 | XMS_ITS | Encounter Summary ---
Author Organization [employer] Address [address] [place] [address] 7 [place] [address] Care Team Providers Care Rivet Heater Name Role Phone Yi Thompson MD Primary [...] Description 02/09/2026 1:00 PM EDT Office Visit [facility] MEDICINE [address] [place] [address] Yi Thompson MD 230 [place] [address] documented as of this encounter Goals Goal [...] Vitamin B12 355 200 - 900 pg/mL [facility] Comment:NORMAL 200-900 PG/ML INDETERMINATE 160-199 PG/ML DEFICIENT < 160 PG/ML Folate 11.2 > or = 4.0 ng/mL [facility] Comment:Reference Values:> o r [...] ORDERAB LES Final Result Performing Organization Address City/[facility]/ZIP Co de Phone Number [facility] [address] [place] [address] [phone] * Magnesium (10/30/2025 12:31 PM EST) Magnesium 1.7 1.6 - 2.6 mg/dL [facility] 10/30/2025 12:3 1 PM EST 10/30/2025 12:31 PM EST Generic External Data Provider LAB BLOOD ORDERAB LES Final Result Performing Organization Address [facility] de Phone Number [facility] [address] [place] [address] [phone] documented in this encounter Visit Diagnoses [...] documented as of this encounter Care Teams Rivet Heater Relationship Specialty Start Date End Date Yi Thompson MD [address] [place] [phone] PCP - General Internal Medicine 08/20/23 documented as of this encounter
--- OUTSIDE RECORDS SUMMARY | 2025-11-04 10:17 | XMS_ITS | Encounter Summary ---
Author Organization [employer] Address [address] [place] [address] Care Team Providers Care Management Advisor Name Role Phone Yi Thompson MD Primary Care Pro vider Reason for Referral * Consultation (Routine) - Authorized Specialty Diagnoses / Procedures Referred By Contac t Referred To Contact Pharmacy Diagnoses Hypertension Maria Del Carmen Meza MD [address] [place] [address] Phone: tel: fax: Referral ID Status Reason Start Date Expiration Date Visits Requested Visits Authorized [id number] Authorized Continuity of Care 04/03/2025 04/03/2026 6 6 Encounter Details Date Type Department Care Team ([facility] st Contact Info) Description 03/30/2025 Orders Only [facility] MEDICINE [address] [place] [address] Maria Del Carmen Meza MD [address] [place], [place] [phone] Hypertension (Primary Dx) Social History Tobacco Use [...] Description 02/09/2026 1:00 PM EDT Office Visit [facility] MEDICINE [address] [place] [phone] Yi Thompson MD [address] [place] [address] Scheduled Referrals Name Type Priority Associated Diagnoses [...] AM EDT Narrative 04/12/2025 9:59 AM EDT [place] [address] Magnetic Resonance Report Signed Patient: Sapna Herzog MR#: [id number] : 1960 Acct:[id number] Age/Sex: 64 / F ADM Date: 04/12/25 Loc: HO.MRI Attending Dr: Pratik Estes MD Ordering Physician: Pratik Estes MD Date of Service: 04/12/25 Procedure(s): MR cervical spine wo con Accession Number(s): [id number] cc: Pratik Estes MD; Yi Thompson MD [...] 04/12/25 0956 DD/ 0821 TD/TT: 04/12/25 0837 Parimutuel Cashier: Procedure Note Donotuseinterpreter, Image - 04/12/[address] [address] Magnetic Resonance Report Signed Patient: Sapna Herzog CMR#: [id number] : 9Acct:[id number] Age/Sex: 64 / FADM Date: 04/12/25 Loc: HO.MRI Attending Dr: Pratik Estes MD Ordering Physician: Pratik Estes MD Date of Service: 04/12/25 Procedure(s): MR cervical spine wo con Accession Number(s): [id number] cc: Pratik Estes MD; Yi Thompson MD [...] OV> 04/12/2556 DD/ 0 TD/TT: 04/12/25 0837 Parimutuel Cashier: [facility] External Provider IMG MRI PROCEDURES Final Result documented in this encounter Visit Diagnoses Diagnosis Hypertension- Primary Unspecified essential hypertension documented in this encounter Additional Health Concerns Assessment Noted Time PHQ-9 Depression Total Score: 1 01/13/20 24 12:16 PM EST documented as of this encounter Care Teams Management Advisor Relationship Specialty Start Date End Date Yi Thompson MD [address] [place] [id number] PCP - General Internal Medicine 08/20/23 documented as of this encounter
--- OUTSIDE RECORDS SUMMARY | 2025-11-04 10:18 | XMS_ITS | Encounter Summary ---
Author Organization [employer] Address [address] [place] [address] Care Team Providers Care Founder & Ceo Name Role Phone Juliet Bird Primary Care Provider Yi Jessica MD Primary Care Pro vider Reason for Visit * Reason Onset Date Comments triage 02/27/2023 Encounter Details Date Type Department Care Team (Late st Contact Info) Description 02/27/2023 Telephone [facility] MEDICINE [address] [place] [address] Juliet Bird FNP triage Social History Tobacco [...] 02/27/2023 4:58 PM EDT Triage call with [place] Clarification Operator ID [id number] Pt reports a couple of days of [...] 1:00 PM EDT Office Visit [facility] MEDICINE [address] [place] [address] Yi Thompson MD [address] [place] [address] documented as of this encounter Visit Diagnoses Not on filedocumented in this encounter Care Teams Founder & Ceo Relationship Specialty Start Date End Date Juliet Bird FNP PCP - General Family Medicine 01/22/23 08/19/23 Yi Thompson MD [address] [place] [id number] PCP - General Internal Medicine 08/20/23 documented as of this encounter
== END 2025-11-04 10:14 | disposition home or self-care (01) ==
LOC: HO.MRI 10:13
PROVIDERS: PCP Student in an Organized Health Care Education/Training Program; Visit Provider Anesthesiology
DX: M51.360 Other intervertebral disc degeneration, lumbar region with discogenic back pain only (principal)
CPT/HCPCS: 72148